=== PATIENT | female | born 1955 | race Caucasian/White ===

== ENCOUNTER 2017-05-12 23:15 | Observation (INO) | payer MEDICAID, SELFPAY ==
[2017-05-12 23:16] VITALS: BP 104/41; PULSE 69; RESP 17; TEMP 36.5; O2SAT 96; BMI 40.0
--- NOTE | 2017-05-12 23:28 | EKG12_ITS ---
Test Reason : CP Blood Pressure : / mmHG Vent. Rate : 071 BPM Atrial Rate : 041 BPM P-R Int : 000 ms QRS Dur : 092 ms QT Int : 384 ms P-R-T Axes : 000 072 -30 degrees QTc Int : [address] & T wave abnormality, consider inferior ischemia Abnormal ECG Confirmed by ELSY DELGADO, LUCILA ([id number]), publications editor DIANA GALVEZ ([id number]) on 05/14/2017 3:18:39 PM Referred By: NUBIA Confirmed By:LUCILA CHIN MD
--- NOTE | 2017-05-12 23:28 | RAD_ITS ---
STUDY: X-RAY CHEST REASON FOR EXAM: Female, 61 years old. Chest pain, shortness of breath. TECHNIQUE: AP portable chest. COMPARISON: February 16, 2017. FINDINGS: The lungs are clear and expanded. There is no demonstrated pleural abnormality. Borderline cardiomegaly. Normal mediastinum and sangeeta. Normal visualized pulmonary arteries. Normal visualized aortic arch and descending thoracic aorta. Osseous structures are unchanged. There is no demonstrated abnormality of the visualized soft tissue structures of the upper abdomen. RAD/Chest 1 View (Portable) IMPRESSION: No acute cardiopulmonary disease. Electronically Signed: Don Rosario MD at 0:16 EDT , Service support ,
[2017-05-12 23:36] VITALS: BP 122/68; PULSE 65; RESP 22; O2SAT 97
[2017-05-12] MEDS: Ondansetron 4 MG/2 ML Vial IV (23:37)
[2017-05-12 23:45] VITALS: PULSE 74; RESP 18
[2017-05-12] MEDS: Albuterol 2.5 MG/3 ML VIAL.NEB. INHALATION ×3 (23:45→23:50)
[2017-05-12] MEDS: Ipratropium/Albuterol Sulfate 3 ML AMPUL.NEB INHALATION (23:45)
[2017-05-12 23:49] LABS: Absolute Lymphocyte Count 2.77 X10^3/ul (0.83-4.51); Absolute Neutrophil Count 10.5 X10^3/uL (2.0-7.7); Basophil# 0.04 X10^3/uL; Basophil% 0.3 % (0-1); Eosinophil# 0.42 X10^3/uL; Eosinophils% 2.8 % (0-5); Hematocrit 28.4 % (37-47); Lymphocyte # 2.77 X10^3/ul (4.0); Lymphocyte % 18.7 % (19-41); Mean Corp Hgb Conc 31.7 g/gl (32-36); Mean Corpuscular Hgb 27.2 pg (27.0-32.0); Mean Corpuscular Volume 85.8 fL (81-99); Mean Platelet Vol. 11.1 fl (6.2-12.0); Monocyte# 1.01 X10^3/uL; Monocyte% 6.8 % (0-10); Neutrophil # 10.54 X10^3/uL (2.7-7.7); Platelet Count 291 K/mm3 (150-450); RBC Distribution Width CV 14.8 % (11.6-14.6); RBC Distribution Width SD 44.5 fl (35.1-43.9); Red Blood Count 3.31 M/mm3 (4.2-5.4); White Blood Count 14.8 K/mm3 (4.4-11.0)
[2017-05-12 23:50] LABS: POSITIVE COUNT NO; POSITIVE DIFFERENTIAL NO; POSITIVE MORPHOLOGY NO
[2017-05-13] VITALS (13 sets, daily range): BP systolic 102–134; BP diastolic 47–64; PULSE 57–85; RESP 16–20; TEMP 36.2–36.9; O2SAT 95–99; BMI 40.2; BMI 40.3
[2017-05-13 00:02] LABS: Anion Gap 7 (5-15); BUN 16 mg/dL (7-18); BUN/Creat Ratio 20.5 RATIO (10-20); Calcium,Total 8.5 mg/dL (8.5-10.1); Chloride 101 mmol/L (98-107); Creatinine, Serum 0.78 mg/dL (0.55-1.02); EST Glomerular Filtration Rate 80 mL/min (>60); Est Glom Filt Rate - Afr Amer 96 mL/min (>60); Estimated Creatinine Clearance 57.15 ml/min; Glucose 179 mg/dL (74-106); Potassium 4.3 mmol/L (3.5-5.1); Sodium Level 135 mmol/L (136-145)
--- NOTE | 2017-05-13 00:29 | ED.VISSUMM ---
- ER Visit Summary Date of Service: 05/13/17 Chief Complaint: [] Chest pain History of Present Illness: The patient is a 61 F complaining of chest pain since yesterday 2 PM. Substernal. Comes on at rest continuous sharp pain. Current severity is moderate. Worsened by nothing. Associated with nausea and chronic shortness of breath. She is chronic COPD gets breathing treatments every 4 hours she is a history of obesity and A. fib and she is on Eloquis. A remote DVT. She does have cardiac risk factors including hypertension, diabetes, high cholesterol and smoking. She quit in 2016. She has never had a stress test heart cath or stents. She reported a remote GA in 2009 however. Physical Examination: [] Vital signs reviewed General: Well-nourished well-developed Head: Normocephalic atraumatic Eyes: Pupils equal round and reactive to light extraocular movements intact ENT: TMs clear no hemotympanum no trauma Neck: Nontender full range of motion Cardiovascular: Irregular rhythm no murmurs normal S1-S2 Respiratory: No distress diffuse wheezing throughout all lung hoang on expiratory phase. Chest nontender Abdomen: Soft nontender nondistended normal bowel sounds no masses Back: Nontender no CVA tenderness Extremities: Nontender active range of motion ?4 extremities no trauma Skin: Normal color no trauma Neuro alert oriented cranial nerves II through XII intact normal strength sensation reflexes Test Results: [] Emergency Department Course and Treatment: [] EKG shows A. fib at 71. T-wave inversions noted inferior lead III and aVF V1 and V2. CBC normal except white count of 14.8. Patient has history of chronic leukocytosis. Hemoglobin 9.0. Chemistries normal except sodium 135. Troponin negative. Chest x-ray shows nothing acute. Patient given albuterol nebulizer ?3 and Atrovent nebulizer ?1 with good relief of her wheezing. She still has some persistent mild chest discomfort. She was given IV Solu-Medrol. At this time due the patient's chest pain I feel she will need to be admitted for further evaluation. She is already on blood thinners therefore I do not feel she has a PE. I do not feel she needs antibiotics that she has had no no new cough or fevers. COPD is a chronic issue for her. Treatment Plan: [] Disposition: [] Impression: [] Chest pain COPD with wheezing Chronic respiratory failure This note was generated with [employer] dictation software. It may contain incorrect words, spelling, and punctuation that were not noted in review of the chart prior to signing ED Disposition - Plan for ED Patient: Chief Complaint: Chest Pain Referrals: Camden Burger [Primary Care Provider] -
[2017-05-13] MEDS: MethylPREDNISolone 125 MG/2 ML Vial IV (00:44)
--- NOTE | 2017-05-13 01:13 | PCM.HP.STD ---
Problem List (1) Chest pain Status: Acute Qualifiers: Chest pain type: chest pain on breathing Qualified Code(s): R07.1 - Chest pain on breathing; R07.81 - Pleurodynia (2) Anemia Status: Acute (3) Acute and chronic respiratory failure with hypoxia Status: Resolved (4) Acute bronchitis due to human metapneumovirus Status: Resolved (5) COPD with acute exacerbation Status: Resolved (6) Hypomagnesemia Status: Chronic (7) Anxiety Status: Chronic (8) COPD (chronic obstructive pulmonary disease) Status: Chronic Qualifiers: (9) Cardiomyopathy Status: Chronic Qualifiers: Comment: EF in Oct 2015 45-50 (10) Chronic atrial fibrillation Status: Chronic (11) Chronic hypoxemic respiratory failure Status: Chronic (12) Chronic pain Status: Chronic Qualifiers: (13) Former smoker Status: Chronic Comment: Quit in the fall 2016 (14) GERD (gastroesophageal reflux disease) Status: Chronic Qualifiers: (15) HTN (hypertension) Status: Chronic Qualifiers: (16) Hyperlipemia Status: Chronic Qualifiers: (17) Insomnia Status: Chronic Qualifiers: (18) Morbid obesity with BMI of 40.0-44.9, adult Status: Chronic (19) Non-compliance Status: Chronic Comment: withn follow up with pulmonary (20) Type 2 diabetes mellitus Status: Chronic Qualifiers: (21) Pneumonia Status: Ruled-out History of Present Illness Date of Admission: 05/13/17 Chief Complaint: chest pain The patient is a 61 year old F with a past medical history of severe COPD, chronic pain syndrome, chronic atrial fibrillation, chronic hypoxemic respiratory failure, mild cardiomyopathy with a 45-50% EF in October 2015, hyperlipidemia, diabetes mellitus type 2, GERD, chronic anticoagulation with Xarelto, anxiety/depression and insomnia who was sent to the emergency department at [facility] from the longterm with a complaint of chest pain. The pain started at approximately 2 PM which is almost 12 hours ago. It has been continuous. It does not radiate. She also describes some nausea and abdominal pain. The pain increases with deep breaths and also with coughing. She has not been diaphoretic and the pain started while she was sitting in her chair. She had spaghetti for lunch. She was given what sounds like a GI cocktail at the [facility] and she tells me that it helped some. 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 Asaf Rosa and she states she last saw him on 04/24 and was told everything was good. She tells me that she has never had a stress test or a cardiac cath. She is a very poor historian and it is difficult to get her to answer a direct question. The EKG in the ER shows non-specific ST and T wave changes that are essentially unchanged from her last EKG in February 2017. CXR shows no infiltrates, PVC or pleural effusions. Troponin is < 0.02 nine and 1/2 hours after the chest pain started. She has multiple risk factors for CAD and she is going to be admitted to the hospital for a chemical nuclear stress in the AM if the second troponin is negative. Past Medical History Past Medical History (Chronic Problems): Chronic Problems Former smoker (Chronic) Quit in the fall 2016 Hypomagnesemia (Chronic) HTN (hypertension) (Chronic) Morbid obesity with BMI of 40.0-44.9, adult (Chronic) COPD (chronic obstructive pulmonary disease) (Chronic) Chronic pain (Chronic) Chronic atrial fibrillation (Chronic) Non-compliance (Chronic) withn follow up with pulmonary Chronic hypoxemic respiratory failure (Chronic) Cardiomyopathy (Chronic) EF in Oct 2015 45-50 Hyperlipemia (Chronic) Type 2 diabetes mellitus (Chronic) GERD (gastroesophageal reflux disease) (Chronic) Anxiety (Chronic) Insomnia (Chronic) Allergies venom-honey bee [bee venom (honey bee)] Allergy (Verified 05/12/17 23:40) Swelling levofloxacin [From Levaquin] Adverse Reaction (Verified 05/12/17 23:40) Nausea oxycodone HCl [From Percocet] Adverse Reaction (Verified 05/12/17 23:40) Nausea Penicillins Adverse Reaction (Verified 05/12/17 23:40) Nausea/Vom/Diarrhea Home Medications: Ambulatory Orders Medication Instructions Recorded Acetaminophen [Tylenol] 2 tab PO Q6H PRN 05/12/17 Albuterol Aerosols [Ventolin 2.5 mg INHALATION Q2H PRN PRN 05/12/17 Aerosols] Atorvastatin Calcium [Lipitor] 40 mg PO QHS 05/12/17 Budesonide/Formoterol 160/4.5 2 puff INHALATION BID 05/12/17 [Symbicort 160/4.5 Mcg Inhaler (SP)] Bupropion HCl [Bupropion HCl Sr] 150 mg PO BID 05/12/17 Buspirone HCl 10 mg PO TID 05/12/17 Digoxin 250 mcg PO DAILY 05/12/17 Diltiazem [Cardizem] 2 tab PO BID 05/12/17 Docusate Sodium [Colace] 100 mg PO DAILY 05/12/17 Famotidine [Pepcid] 20 mg PO BID 05/12/17 Furosemide [Lasix] 20 mg PO BIDLX 05/12/17 Furosemide [Lasix] 40 mg PO BIDLX 05/12/17 Gabapentin [Neurontin] 100 mg PO TID 05/12/17 Glucagon,Human Recombinant 1 mg IJ PRN PRN 05/12/17 [Glucagon Emergency Kit] Guaifenesin [Mucinex] 1,200 mg PO BID 05/12/17 Hydrocodone Bitart/Apap 5-325 1 tablet PO Q6H PRN PRN 05/12/17 [[place] 5MG-325MG] Insulin Glargine,Hum.rec.anlog 55 unit SQ QHS 05/12/17 [Basaglar Kwikpen U-100] Insulin Lispro [Humalog] 8 unit SQ TIDCM 05/12/17 Ipratropium/Albuterol Sulfate 3 ml INHALATION Q4H.RT 05/12/17 [Duoneb] Lisinopril [Prinivil] 5 mg PO DAILY 05/12/17 Mag Hydrox/Al Hydrox/Simeth 30 ml PO Q6H PRN 05/12/17 [Antacid Liquid] Mometasone/Formoterol [Dulera 200 2 puff IN BID 05/12/17 Mcg/5 Mcg Inhaler] Nitroglycerin [Nitrostat] 0.4 mg SUBLINGUAL Q5M PRN 05/12/17 Polyethylene Glycol 3350 [Miralax] 17 gm PO DAILY 05/12/17 Potassium Chloride [K-Dur] 10 meq PO BID 05/12/17 Propranolol HCl [Inderal] 10 mg PO BID 05/12/17 Rivaroxaban [Xarelto] 20 mg PO DAILY 05/12/17 Sennosides/Docusate Sodium [Senna 2 tab PO BID PRN 05/12/17 Plus Tablet] Sennosides/Docusate Sodium 2 tab PO DAILY PRN 05/12/17 [Senna-Docusate Sodium Tablet] Surgical History: hysterectomy, tonsillectomy, - - Lumbar surgery. 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 Sibling History Items: Asthma, COPD, Hypertension Review of Systems Constitutional: Denies: Chills, Fever, Weight Change HEENT: Denies: Head Aches, Sinus Congestion, Sinus Drainage Cardiovascular: Reports: Chest Pain, Edema. Denies: Light Headedness, Orthopnea, Palpitations Respiratory: Reports: Cough - chronic, no change recently, Shortness of Breath - chronic Gastrointestinal: Reports: Abdominal Pain, Dyspepsia, Nausea. Denies: Diarrhea, Vomiting Genitourinary: Denies: Dysuria Musculoskeletal: Reports: Back Pain, Neck Pain Skin: Denies: Rash, Wounds Neurological: Denies: Slurred speech, Confusion, Focal weakness, Seizures Psychiatric: Reports: Anxiety, Depression. Denies: Suicidal Ideations Endocrine: Denies: Change in Body Habitus Hematologic/ Lymphatic: Denies: Hx of blood clot VTE Information - Inpt Only VTE Present on Admission: No VTE Mechan Device Prophylaxis: None VTE Pharm Prophylaxis ordered?: No Reason prophylaxis not ordered:: Treatment Not Indicated - pt is on Xarelto and a short admission is expected Patient Problems: Active and Suspected Problems Chest pain (Acute) Anemia (Acute) - Physical Exam General: Alert, Oriented x3, Non-Cooperative - she will not answer a direct question without prompting her several times and she is evasive. I had to ask her 3 times when the last time she saw Dr. Rosa was and she finally told me on the 9 of this month. HEENT: Atraumatic, PERRLA, EOMI, Normocephalic Oral: Moist Mucosa Neck: Supple, No Nodes, Trachea Midline Lungs: Diminished, - - she has no conversational dyspnea and she is not tachypneic. Not coughing. Rare expiratory wheeze Cardiovascular: Normal S1, Normal S2, No murmurs, Irregular Rate - AF with controlled VR, No Gallop Abdomen: Bowel Sounds Present, Soft, Non-Distended, Tender - in the mid abdomen Extremities: No cyanosis, Edema - of the ankles and the distal LE's Skin: No rashes, No breakdown Neurological: Cranial nerves II-XII grossly intact, Neuro grossly intact Psych/Mental Status: Flat Affect Vital Signs Temp Pulse Resp BP Pulse Ox 97.7 F L 57 L 18 108/58 L 99 05/12/17 23:16 05/13/17 01:03 05/13/17 00:49 05/13/17 01:03 05/13/17 01:03 Oxygen Flow Rate (L/min) 2 Oxygen Delivery Method Room Air Weight: 211 lb 13.828 oz Body Mass Index (BMI) 40.0 Finger Stick Blood Glucose 364 Laboratory Tests Past 24 Hrs 05/12/17 05/12/17 23:20 23:20 WBC 14.8 H RBC 3.31 L Hgb 9.0 L Hct 28.4 L MCV 85.8 MCH 27.2 MCHC 31.7 L RDW 14.8 H RDW Differential 44.5 H Plt Count 291 MPV 11.1 Immature Gran % (Auto) 0.400 Neut % (Auto) 71.0 H Lymph % (Auto) 18.7 L Gibson % (Auto) 6.8 Eos % (Auto) 2.8 Baso % (Auto) 0.3 Absolute Neuts (auto) 10.5 H Absolute Lymphs (auto) 2.77 Total Counted Not Reportable Sodium 135 L Potassium 4.3 Chloride 101 Carbon Dioxide 27.0 Anion Gap 7 BUN 16 Creatinine 0.78 Estim Creat Clear Calc 57.15 Est GFR (MDRD) Af Amer 96 Est GFR (MDRD) Non-Af 80 BUN/Creatinine Ratio 20.5 H Glucose 179 H Calcium 8.5 Troponin I < 0.02 Assessment/Plan Active and Suspected Problems Chest pain (Acute) Anemia (Acute) Impressions 1. atypical CP lasting for 11 hours with normal troponin, unremarkable CXR, stable EKG since February 2017 and partially relieved with a GI cocktail at the HI. HGB has dropped to 9.0 from 10.8 in February and she is on chronic anticoagulation. I suspect this is likely GI related but, she has many RF's for CAD and she is being admitted for a stress test. 2. severe COPD with chronic hypoxemic respiratory failure 3. chronic atrial fibrillation - rate controlled 4. DM II 5. HTN 6. HLD 7. former smoker - she just quit about 6 months ago 8. Hx of non-compliance with medication, diet and follow up in the past - no living in a NH 9. morbid obesity 10. depression/anxiety 11. chronic pain syndrome 12. ischemic CM with a 45-50% EF in 2016 Admitted to PCU Serial CE's chemical nuclear stress in the AM if the second troponin is negative Obtain Dr. Rosa's recent progress notes Hemoccult stool NPO tonight Continue her regular medications PRN SL NTG Code Visit OBSV E&M: 46813 Initial observation care L3
--- NOTE | 2017-05-13 01:25 | HP.PCM_ITS ---
Problem List (1) Chest pain Status: Acute Qualifiers: Chest pain type: chest pain on breathing Qualified Code(s): R07.1 - Chest pain on breathing; R07.81 - Pleurodynia (2) Anemia Status: Acute (3) Acute and chronic respiratory failure with hypoxia Status: Resolved (4) Acute bronchitis due to human metapneumovirus Status: Resolved (5) COPD with acute exacerbation Status: Resolved (6) Hypomagnesemia Status: Chronic (7) Anxiety Status: Chronic (8) COPD (chronic obstructive pulmonary disease) Status: Chronic Qualifiers: (9) Cardiomyopathy Status: Chronic Qualifiers: Comment: EF in Oct 2015 45-50 (10) Chronic atrial fibrillation Status: Chronic (11) Chronic hypoxemic respiratory failure Status: Chronic (12) Chronic pain Status: Chronic Qualifiers: (13) Former smoker Status: Chronic Comment: Quit in the fall 2016 (14) GERD (gastroesophageal reflux disease) Status: Chronic Qualifiers: (15) HTN (hypertension) Status: Chronic Qualifiers: (16) Hyperlipemia Status: Chronic Qualifiers: (17) Insomnia Status: Chronic Qualifiers: (18) Morbid obesity with BMI of 40.0-44.9, adult Status: Chronic (19) Non-compliance Status: Chronic Comment: withn follow up with pulmonary (20) Type 2 diabetes mellitus Status: Chronic Qualifiers: (21) Pneumonia Status: Ruled-out History of Present Illness Date of Admission: 05/13/17 Chief Complaint: chest pain The patient is a 61 year old F with a past medical history of severe COPD , chronic pain syndrome, chronic atrial fibrillation, chronic hypoxemic respiratory failure, mild cardiomyopathy with a 45-50% EF in October 2015, hyperlipidemia, diabetes mellitus type 2, GERD, chronic anticoagulation with Xarelto, anxiety/depression and insomnia who was sent to the emergency department at [facility] from the skilled nursing with a complaint of chest pain. The pain started at approximately 2 PM which is almost 12 hours ago. It has been continuous. It does not radiate. She also describes some nausea and abdominal pain. The pain increases with deep breaths and also with coughing. She has not been diaphoretic and the pain started while she was sitting in her chair. She had spaghetti for lunch. She was given what sounds like a GI cocktail at the DC and she tells me that it helped some. Her Warehouse Worker is Dr. Asaf Rosa and she states she last saw him on 04/24 and was told everything was good. She tells me that she has never had a stress test or a cardiac cath. She is a very poor historian and it is difficult to get her to answer a direct question. The EKG in the ER shows non-specific ST and T wave changes that are essentially unchanged from her last EKG in February 2017. CXR shows no infiltrates, PVC or pleural effusions. Troponin is < 0.02 nine and 1/ 2 hours after the chest pain started. She has multiple risk factors for CAD and she is going to be admitted to the hospital for a chemical nuclear stress in the AM if the second troponin is negative. Past Medical History Past Medical History (Chronic Problems): Chronic Problems Former smoker (Chronic) Quit in the fall 2016 Hypomagnesemia (Chronic) HTN (hypertension) (Chronic) Morbid obesity with BMI of 40.0-44.9, adult (Chronic) COPD (chronic obstructive pulmonary disease) (Chronic) Chronic pain (Chronic) Chronic atrial fibrillation (Chronic) Non-compliance (Chronic) withn follow up with pulmonary Chronic hypoxemic respiratory failure (Chronic) Cardiomyopathy (Chronic) EF in Oct 2015 45-50 Hyperlipemia (Chronic) Type 2 diabetes mellitus (Chronic) GERD (gastroesophageal reflux disease) (Chronic) Anxiety (Chronic) Insomnia (Chronic) Allergies venom-honey bee [bee venom (honey bee)] Allergy (Verified 05/12/17 23:40) Swelling levofloxacin [From Levaquin] Adverse Reaction (Verified 05/12/17 23:40) Nausea oxycodone HCl [From Percocet] Adverse Reaction (Verified 05/12/17 23:40) Nausea Penicillins Adverse Reaction (Verified 05/12/17 23:40) Nausea/Vom/Diarrhea Home Medications: Ambulatory Orders Medication Instructions Recorded Acetaminophen [Tylenol] 2 tab PO Q6H PRN 05/12/17 Albuterol Aerosols [Ventolin 2.5 mg INHALATION Q2H PRN PRN 05/12/17 Aerosols] Atorvastatin Calcium [Lipitor] 40 mg PO QHS 05/12/17 Budesonide/Formoterol 160/4.5 2 puff INHALATION BID 05/12/17 [Symbicort 160/4.5 Mcg Inhaler (SP)] Bupropion HCl [Bupropion HCl Sr] 150 mg PO BID 05/12/17 Buspirone HCl 10 mg PO TID 05/12/17 Digoxin 250 mcg PO DAILY 05/12/17 Diltiazem [Cardizem] 2 tab PO BID 05/12/17 Docusate Sodium [Colace] 100 mg PO DAILY 05/12/17 Famotidine [Pepcid] 20 mg PO BID 05/12/17 Furosemide [Lasix] 20 mg PO BIDLX 05/12/17 Furosemide [Lasix] 40 mg PO BIDLX 05/12/17 Gabapentin [Neurontin] 100 mg PO TID 05/12/17 Glucagon,Human Recombinant 1 mg IJ PRN PRN 05/12/17 [Glucagon Emergency Kit] Guaifenesin [Mucinex] 1,200 mg PO BID 05/12/17 Hydrocodone Bitart/Apap 5-325 1 tablet PO Q6H PRN PRN 05/12/17 [[place] 5MG-325MG] Insulin Glargine,Hum.rec.anlog 55 unit SQ QHS 05/12/17 [Basaglar Kwikpen U-100] Insulin Lispro [Humalog] 8 unit SQ TIDCM 05/12/17 Ipratropium/Albuterol Sulfate 3 ml INHALATION Q4H.RT 05/12/17 [Duoneb] Lisinopril [Prinivil] 5 mg PO DAILY 05/12/17 Mag Hydrox/Al Hydrox/Simeth 30 ml PO Q6H PRN 05/12/17 [Antacid Liquid] Mometasone/Formoterol [Dulera 200 2 puff IN BID 05/12/17 Mcg/5 Mcg Inhaler] Nitroglycerin [Nitrostat] 0.4 mg SUBLINGUAL Q5M PRN 05/12/17 Polyethylene Glycol 3350 [Miralax] 17 gm PO DAILY 05/12/17 Potassium Chloride [K-Dur] 10 meq PO BID 05/12/17 Propranolol HCl [Inderal] 10 mg PO BID 05/12/17 Rivaroxaban [Xarelto] 20 mg PO DAILY 05/12/17 Sennosides/Docusate Sodium [Senna 2 tab PO BID PRN 05/12/17 Plus Tablet] Sennosides/Docusate Sodium 2 tab PO DAILY PRN 05/12/17 [Senna-Docusate Sodium Tablet] Surgical History: hysterectomy, tonsillectomy, - - Lumbar surgery. 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 Sibling History Items: Asthma, COPD, Hypertension Review of Systems Constitutional: Denies: Chills, Fever, Weight Change HEENT: Denies: Head Aches, Sinus Congestion, Sinus Drainage Cardiovascular: Reports: Chest Pain, Edema. Denies: Light Headedness, Orthopnea , Palpitations Respiratory: Reports: Cough - chronic, no change recently, Shortness of Breath - chronic Gastrointestinal: Reports: Abdominal Pain, Dyspepsia, Nausea. Denies: Diarrhea , Vomiting Genitourinary: Denies: Dysuria Musculoskeletal: Reports: Back Pain, Neck Pain Skin: Denies: Rash, Wounds Neurological: Denies: Slurred speech, Confusion, Focal weakness, Seizures Psychiatric: Reports: Anxiety, Depression. Denies: Suicidal Ideations Endocrine: Denies: Change in Body Habitus Hematologic/ Lymphatic: Denies: Hx of blood clot VTE Information - Inpt Only VTE Present on Admission: No VTE Mechan Device Prophylaxis: None VTE Pharm Prophylaxis ordered?: No Reason prophylaxis not ordered:: Treatment Not Indicated - pt is on Xarelto and a short admission is expected Patient Problems: Active and Suspected Problems Chest pain (Acute) Anemia (Acute) - Physical Exam General: Alert, Oriented x3, Non-Cooperative - she will not answer a direct question without prompting her several times and she is evasive. I had to ask her 3 times when the last time she saw Dr. Rosa was and she finally told me on the 9 of this month. HEENT: Atraumatic, PERRLA, EOMI, Normocephalic Oral: Moist Mucosa Neck: Supple, No Nodes, Trachea Midline Lungs: Diminished, - - she has no conversational dyspnea and she is not tachypneic. Not coughing. Rare expiratory wheeze Cardiovascular: Normal S1, Normal S2, No murmurs, Irregular Rate - AF with controlled VR, No Gallop Abdomen: Bowel Sounds Present, Soft, Non-Distended, Tender - in the mid abdomen Extremities: No cyanosis, Edema - of the ankles and the distal LE's Skin: No rashes, No breakdown Neurological: Cranial nerves II-XII grossly intact, Neuro grossly intact Psych/Mental Status: Flat Affect Vital Signs Temp Pulse Resp BP Pulse Ox 97.7 F L 57 L 18 108/58 L 99 05/12/17 23:16 05/13/17 01:03 05/13/17 00:49 05/13/17 01:03 05/13/17 01:03 Oxygen Flow Rate (L/min) 2 Oxygen Delivery Method Room Air Weight: 211 lb 13.828 oz Body Mass Index (BMI) 40.0 Finger Stick Blood Glucose 364 Laboratory Tests Past 24 Hrs 05/12/17 05/12/17 23:20 23:20 WBC 14.8 H RBC 3.31 L Hgb 9.0 L Hct 28.4 L MCV 85.8 MCH 27.2 MCHC 31.7 L RDW 14.8 H RDW Differential 44.5 H Plt Count 291 MPV 11.1 Immature Gran % (Auto) 0.400 Neut % (Auto) 71.0 H Lymph % (Auto) 18.7 L [place] % (Auto) 6.8 Eos % (Auto) 2.8 Baso % (Auto) 0.3 Absolute Neuts (auto) 10.5 H Absolute Lymphs (auto) 2.77 Total Counted Not Reportable Sodium 135 L Potassium 4.3 Chloride 101 Carbon Dioxide 27.0 Anion Gap 7 BUN 16 Creatinine 0.78 Estim Creat Clear Calc 57.15 Est GFR (MDRD) Af Amer 96 Est GFR (MDRD) Non-Af 80 BUN/Creatinine Ratio 20.5 H Glucose 179 H Calcium 8.5 Troponin I < 0.02 Assessment/Plan Active and Suspected Problems Chest pain (Acute) Anemia (Acute) Impressions 1. atypical CP lasting for 11 hours with normal troponin, unremarkable CXR, stable EKG since February 2017 and partially relieved with a GI cocktail at the DC. HGB has dropped to 9.0 from 10.8 in February and she is on chronic anticoagulation. I suspect this is likely GI related but, she has many RF's for CAD and she is being admitted for a stress test. 2. severe COPD with chronic hypoxemic respiratory failure 3. chronic atrial fibrillation - rate controlled 4. DM II 5. HTN 6. HLD 7. former smoker - she just quit about 6 months ago 8. Hx of non-compliance with medication, diet and follow up in the past - no living in a NH 9. morbid obesity 10. depression/anxiety 11. chronic pain syndrome 12. ischemic CM with a 45-50% EF in 2016 Admitted to PCU Serial CE's chemical nuclear stress in the AM if the second troponin is negative Obtain Dr. Rosa's recent progress notes Hemoccult stool NPO tonight Continue her regular medications PRN SL NTG Code Visit OBSV E&M: 50661 Initial observation care L3
--- NOTE | 2017-05-13 02:15 | ECHOD_ITS ---
Reason For Study: chest pain Procedure This was a 2D Doppler, Color Flow transthoracic echocardiogram. Exam performed portable in patient room. Left Ventricle Normal LV size. Left ventricular systolic function is normal. The estimated ejection fraction is 65 %. Normal diastology for age. No regional wall motion abnormalities noted. Right Ventricle Normal RV size. Normal systolic function. Atria Normal left atrium. Normal right atrium. Mitral Valve Normal mitral valve. Tricuspid Valve Normal tricuspid valve. Aortic Valve Trisinus/trileaflet aortic valve. Mild focal aortic valve calcification. Peak aortic valve gradient 20 mmHg. Mean aortic valve gradient 11 mmHg. Mild aortic stenosis. Pulmonic Valve Normal pulmonic valve. Great Vessels Normal aortic root. The pulmonary artery is normal size. Normal inferior vena cava. Pericardium/Pleural No pericardial effusion. MMode/2D Measurements & Calculations RVDd: 2.8 cm LVOT diam: 1.8 cm Ao root diam: 2.6 cm LVOT area: 2.7 cm2 LA dimension: 4.6 cm LAV(MOD-bp): 66.5 ml LA A4 area: 21.0 cm2 RA A4 area: 14.3 cm2 LAV(MOD-bp) Indexed: 34.4 ml/m2 LAV(MOD-sp2): 73.8 ml LAV(MOD-sp4): 58.0 ml Doppler Measurements & Calculations MV E max jami: 135.6 cm/sec Ao V2 max: 227.0 cm/sec LV V1 max: 148.6 cm/sec Ao max P.7 mmHg LV V1 max P.9 mmHg Ao V2 mean: 156.2 cm/sec LV V1 mean P.1 mmHg Ao mean P.1 mmHg LV V1 mean: 106.2 cm/sec Ao V2 VTI: 39.3 cm LV V1 VTI: 28.5 cm ANUJA(I,D): 1.9 cm2 ANUJA(V,D): 1.7 cm2 SV(LVOT): 75.8 ml PA V2 max: 150.1 cm/sec TR max jami: 239.5 cm/sec TR max P.9 mmHg Interpretation Summary Normal LV size. Left ventricular systolic function is normal. The estimated ejection fraction is 65 %. Mild aortic stenosis. Ordering Physician: Avis Montalvo Referring Physician: Camden Burger Performed By: Pat Boland RDCS
[2017-05-13 03:03] LABS: AST(SGOT) 11 U/L (15-37); Alanine Aminotransfer ALT/SGPT 15 U/L (13-56); Alkaline Phosphatase 154 U/L (45-117); Bilirubin, Direct 0.11 mg/dL (0.00-0.30); Globulin 3.8 g/dL (2.2-4.2); Magnesium 2.3 mg/dL (1.6-2.6); Protein, Total 6.8 g/dL (6.4-8.2); Thyroid Stim Hormone (TSH) 1.72 uIU/mL (0.358-3.74)
[2017-05-13 04:14] LABS: Hematocrit 34.9 % (37-47); Hemoglobin 10.8 g/dl (12.0-15.0); Mean Corp Hgb Conc 30.9 g/gl (32-36); Mean Corpuscular Hgb 26.1 pg (27.0-32.0); Mean Corpuscular Volume 84.3 fL (81-99); Mean Platelet Vol. 10.6 fl (6.2-12.0); Platelet Count 311 K/mm3 (150-450); RBC Distribution Width CV 14.9 % (11.6-14.6); RBC Distribution Width SD 46.2 fl (35.1-43.9); Red Blood Count 4.14 M/mm3 (4.2-5.4); White Blood Count 13.9 K/mm3 (4.4-11.0)
[2017-05-13 04:16] LABS: Scan Indicated on CBC? Y/N NO
[2017-05-13 04:27] LABS: International Normalized Ratio 1.5; Prothrombin Time (Protime)PT. 18.1 SECONDS (11.7-14.9)
[2017-05-13 04:36] LABS: Anion Gap 8 (5-15); BUN 15 mg/dL (7-18); Calcium,Total 8.6 mg/dL (8.5-10.1); Chloride 101 mmol/L (98-107); Creatinine, Serum 0.75 mg/dL (0.55-1.02); EST Glomerular Filtration Rate 83 mL/min (>60); Est Glom Filt Rate - Afr Amer 101 mL/min (>60); Estimated Creatinine Clearance 59.44 ml/min; Glucose 233 mg/dL (74-106); Potassium 4.7 mmol/L (3.5-5.1); Sodium Level 133 mmol/L (136-145)
--- NOTE | 2017-05-13 05:55 | EKG12_ITS ---
Test Reason : AM EKG Blood Pressure : / mmHG Vent. Rate : 081 BPM Atrial Rate : 071 BPM P-R Int : 000 ms QRS Dur : 092 ms QT Int : 350 ms P-R-T Axes : 000 062 -36 degrees QTc Int : 406 ms Atrial fibrillation Septal infarct , age undetermined ST & T wave abnormality, consider inferior ischemia Abnormal ECG When compared with ECG of 12-MAY-2017 23:19, MANUAL COMPARISON REQUIRED, DATA IS UNCONFIRMED Confirmed by ELSY DELGADO, LUCILA ([id number]), fan mail editor DIANA GALVEZ ([id number]) on 05/18/2017 2:01:09 PM Referred By: LUKASZ Confirmed By:LUCILA CHIN MD
[2017-05-13] MEDS: Lisinopril 5 MG Tablet PO (06:30)
[2017-05-13] MEDS: Aspirin E.C. 81 MG Tablet PO (06:30)
[2017-05-13 06:31] LABS: Bedside Glucose 304 mg/dL (70-110)
[2017-05-13] MEDS: Ipratropium/Albuterol Sulfate 3 ML AMPUL.NEB INHALATION ×2 (06:51→12:51)
[2017-05-13] MEDS: Budesonide Respules 0.5 MG/2 ML AMPUL.NEB. INHALATION (06:51)
[2017-05-13 08:22] LABS: Cholesterol 133 mg/dL (200); High Density Lipoprotein 42 mg/dL; Triglycerides 94 mg/dL; Very Low Density Lipoprotein 19 mg/dL (5-40)
[2017-05-13 11:35] LABS: Bedside Glucose 357 mg/dL (70-110)
--- NOTE | 2017-05-13 12:33 | STRESSREP ---
Stress Test Report Pharmacologic myocardial perfusion stress test. 61-year-old lady with a history of shortness of breath and abdominal pain. Stress protocol: Resting EKG demonstrates atrial for ablation with a rate of 81 bpm normal intervals and noted resting blood pressure is 120/60 mmHg. 0.4 mg regadenoson was infused per usual protocol followed by Intravenous saline flush injection continuous EKG monitoring was performed. Patient maintained atrial fibrillation throughout the recording. The maximum heart rate attained was 104 bpm which was 65% of maximum predicted heart rate the maximum workload attained was 1 metabolic equivalent. At rest there were no ST or T-wave changes noted suggest abnormal flow reserve at peak infusion no ST or T-wave changes were noted to suggest abnormal flow reserve. No pain was noted. The resting blood pressure is 120/62 mmHg final blood pressure is 112/58 mmHg. Myocardial perfusion protocol. 12.0 mCi of technetium 99m sestamibi was injected at rest. 0.4 mg of regadenoson was infused per usual protocol. At peak infusion 33.9 mCi of technetium 99m sestamibi was injected stress images were obtained stress and rest images were reconstructed and compared in the short axis vertical long and horizontal long axis. Gated images were also obtained. Perfusion SPECT analysis: Review of the stress images demonstrate normal uptake of tracer noted in all areas of the myocardium. The resting images similarly demonstrate normal uptake of tracer noted in all areas of the myocardium. No areas of reversibility are noted suggest ischemia no previous infarct is noted. Gated SPECT analysis. The gated ejection fraction is noted to be 83%. Conclusion: Normal pharmacologic myocardial perfusion stress test. Preserved ejection fraction.
--- NOTE | 2017-05-13 13:09 | CASEMGMT ---
Patient is from [facility]. SW spoke with patient and she said she will need a ride back when d/c. Briana CARRASCO
[2017-05-13] MEDS: busPIRone 5 MG Tablet 10 MG PO (14:21)
[2017-05-13] MEDS: dilTIAZem 60 MG Tablet 120 MG PO (14:22)
[2017-05-13] MEDS: Furosemide 40 MG Tablet PO (14:22)
--- NOTE | 2017-05-13 14:22 | PCM.DC ---
- Discharge Diagnoses Current Active Problems: Current Active and Chronic Problems Chest pain (Acute) Anemia (Acute) You will use the following diet at home:: Calorie/Carbohydrate Controlled (specify 1200, 1400, etc) - 1800 ADA diet, Cardiac Discharge Activity: May Not Drive Allergies/Adverse Reactions: Allergies venom-honey bee [bee venom (honey bee)] Allergy (Verified 05/12/17 23:40) Swelling levofloxacin [From Levaquin] Adverse Reaction (Verified 05/12/17 23:40) Nausea oxycodone HCl [From Percocet] Adverse Reaction (Verified 05/12/17 23:40) Nausea Penicillins Adverse Reaction (Verified 05/12/17 23:40) Nausea/Vom/Diarrhea Medications to take at Discharge Acetaminophen [Tylenol] 2 tab PO Q6H PRN 05/12/17 Albuterol Aerosols [Ventolin Aerosols] 2.5 mg INHALATION Q2H PRN PRN 05/12/17 Atorvastatin Calcium [Lipitor] 40 mg PO QHS 05/12/17 Budesonide/Formoterol 160/4.5 [Symbicort 160/4.5 Mcg Inhaler (SP)] 2 puff INHALATION BID 05/12/17 Bupropion HCl [Bupropion HCl Sr] 150 mg PO BID 05/12/17 Buspirone HCl 10 mg PO TID 05/12/17 Digoxin 250 mcg PO DAILY 05/12/17 Diltiazem [Cardizem] 120 mg PO BID 05/12/17 Docusate Sodium [Colace] 100 mg PO DAILY 05/12/17 Famotidine [Pepcid] 20 mg PO BID 05/12/17 Furosemide [Lasix] 40 mg PO BIDLX 05/12/17 Gabapentin [Neurontin] 100 mg PO TID 05/12/17 Glucagon,Human Recombinant [Glucagon Emergency Kit] 1 mg IJ PRN PRN 05/12/17 Guaifenesin [Mucinex] 1,200 mg PO BID 05/12/17 Insulin Glargine,Hum.rec.anlog [Basaglar Kwikpen U-100] 55 unit SQ QHS 05/12/17 Insulin Lispro [Humalog] 8 unit SQ TIDCM 05/12/17 Ipratropium/Albuterol Sulfate [Duoneb] 3 ml INHALATION Q4H.RT 05/12/17 Lisinopril [Prinivil] 5 mg PO DAILY 05/12/17 Mag Hydrox/Al Hydrox/Simeth [Antacid Liquid] 30 ml PO Q6H PRN 05/12/17 Nitroglycerin [Nitrostat] 0.4 mg SUBLINGUAL Q5M PRN 05/12/17 Polyethylene Glycol 3350 [Miralax] 17 gm PO DAILY 05/12/17 Potassium Chloride [K-Dur] 10 meq PO BID 05/12/17 Propranolol HCl [Inderal (Beta Rubén)] 10 mg PO BID 05/12/17 Rivaroxaban [Xarelto] 20 mg PO DAILY 05/12/17 Sennosides/Docusate Sodium [Senna Plus Tablet] 2 tab PO BID PRN 05/12/17 Sennosides/Docusate Sodium [Senna-Docusate Sodium Tablet] 2 tab PO DAILY PRN 05/12/17 Prednisone 10 mg PO UD #30 tab 05/13/17 The following prescriptions were given: Prednisone 10 mg PO UD #30 tab Primary Care Physician: Camden Burger [Primary Care Provider] - Please follow up with your Primary Care Physician in: in 2 weeks Please Follow Up With: Matthias Chong MD When: in 3-4 weeks for COPD
[2017-05-13] MEDS: Propranolol 10 MG Tablet PO (14:23)
[2017-05-13] MEDS: Docusate Sodium 100 MG Capsule PO (14:23)
[2017-05-13] MEDS: Digoxin 250 MCG Tablet PO (14:23)
--- NOTE | 2017-05-13 14:23 | CASEMGMT ---
LUIS called [facility] to let them know patient will be returning today. LUIS verified with them that patient is on O2 2L PRN. LUIS also confirmed a couple of her medications for physician. LUIS will await orders for d/c. Briana CARRASCO
[2017-05-13] MEDS: guaiFENesin 1,200 MG Tablet 1200 MG PO (14:24)
[2017-05-13] MEDS: buPROPion (SR) 150 MG Tablet.SA PO (14:24)
[2017-05-13] MEDS: Famotidine 20 MG Tablet PO (14:24)
[2017-05-13] MEDS: Rivaroxaban 20 MG Tablet PO (14:24)
[2017-05-13] MEDS: Gabapentin 100 MG Capsule PO (14:25)
--- NOTE | 2017-05-13 14:26 | DS.PCM_ITS ---
Discharge Date and Diagnosis Date of Admission: 05/13/17 Date of Discharge: 05/13/17 - Primary Discharge Diagnosis Active and Suspected Problems Atypical chest pain, most probably musculoskeletal/anxiety. COPD with mild acute bronchitis/acute exacerbation - Secondary Discharge Diagnosis Chronic Problems Former smoker (Chronic) Quit in the fall 2016 Hypomagnesemia (Chronic) HTN (hypertension) (Chronic) Morbid obesity with BMI of 40.0-44.9, adult (Chronic) COPD (chronic obstructive pulmonary disease) (Chronic) Chronic pain (Chronic) Chronic atrial fibrillation (Chronic) Non-compliance (Chronic) withn follow up with pulmonary Chronic hypoxemic respiratory failure (Chronic) Cardiomyopathy (Chronic) EF in Oct 2015 45-50 Hyperlipemia (Chronic) Type 2 diabetes mellitus (Chronic) GERD (gastroesophageal reflux disease) (Chronic) Anxiety (Chronic) Insomnia (Chronic) Hospital Course and Treatment Imaging Results: 05/13/17 05:55 Nuclear Stress Test - Chemical [NM] AM (NON MEDS) Operations: None Summary of Care Provided: The patient is a 61 year old F with multiple comorbidities including severe COPD with chronic hypoxemic respiratory failure on 2-3 L oxygen, mild heart failure with EF 45-50%; nonischemic ischemic cardiomyopathy was admitted from [facility] for chest pain. Patient was admitted in PCU floor. Serial troponin enzymes negative. Patient had stress test which was negative for stress-induced ischemia or previous infarct. Chest x-ray reported as no acute cardiopulmonary disease. I think patient has anxiety and mild shortness of breath due to advanced COPD. Patient is discharged back to [facility] on tapering dose of prednisone. She has DuoNeb nebulization, oxygen and Symbicort. Discharge medication reconciliation done. This note was generated with [employer] dictation software. Every effort was made to ensure accuracy, however computerized human resource consultant mistakes may persist. [] Discharge Activity: May Not Drive Home Medications: Medications to take at Discharge Acetaminophen [Tylenol] 2 tab PO Q6H PRN 05/12/17 Albuterol Aerosols [Ventolin Aerosols] 2.5 mg INHALATION Q2H PRN PRN 05/12/17 Atorvastatin Calcium [Lipitor] 40 mg PO QHS 05/12/17 Budesonide/Formoterol 160/4.5 [Symbicort 160/4.5 Mcg Inhaler (SP)] 2 puff INHALATION BID 05/12/17 Bupropion HCl [Bupropion HCl Sr] 150 mg PO BID 05/12/17 Buspirone HCl 10 mg PO TID 05/12/17 Digoxin 250 mcg PO DAILY 05/12/17 Diltiazem [Cardizem] 120 mg PO BID 05/12/17 Docusate Sodium [Colace] 100 mg PO DAILY 05/12/17 Famotidine [Pepcid] 20 mg PO BID 05/12/17 Furosemide [Lasix] 40 mg PO BIDLX 05/12/17 Gabapentin [Neurontin] 100 mg PO TID 05/12/17 Glucagon,Human Recombinant [Glucagon Emergency Kit] 1 mg IJ PRN PRN 05/12/17 Guaifenesin [Mucinex] 1,200 mg PO BID 05/12/17 Insulin Glargine,Hum.rec.anlog [Basaglar Kwikpen U-100] 55 unit SQ QHS 05/12/17 Insulin Lispro [Humalog] 8 unit SQ TIDCM 05/12/17 Ipratropium/Albuterol Sulfate [Duoneb] 3 ml INHALATION Q4H.RT 05/12/17 Lisinopril [Prinivil] 5 mg PO DAILY 05/12/17 Mag Hydrox/Al Hydrox/Simeth [Antacid Liquid] 30 ml PO Q6H PRN 05/12/17 Nitroglycerin [Nitrostat] 0.4 mg SUBLINGUAL Q5M PRN 05/12/17 Polyethylene Glycol 3350 [Miralax] 17 gm PO DAILY 05/12/17 Potassium Chloride [K-Dur] 10 meq PO BID 05/12/17 Propranolol HCl [Inderal (Beta Rubén)] 10 mg PO BID 05/12/17 Rivaroxaban [Xarelto] 20 mg PO DAILY 05/12/17 Sennosides/Docusate Sodium [Senna Plus Tablet] 2 tab PO BID PRN 05/12/17 Sennosides/Docusate Sodium [Senna-Docusate Sodium Tablet] 2 tab PO DAILY PRN Prednisone 10 mg PO UD #30 tab 05/13/17 Following Prescrptions Were Given to Patient: Prednisone 10 mg PO UD #30 tab Primary Care Physician: Camden Burger [Primary Care Provider] - Please follow up with your Primary Care Physician in: in 2 weeks Please Follow Up With: Matthias Chong MD When: in 3-4 weeks for COPD Medical Necessity - Tobacco Use Smoking Status: Former smoker Tobacco Use: Non-smoker Meaningful Use Info Meaningful Use Diagnoses (Choose all that apply): None applicable Code Visit OBSV E&M: 71852 Observation care discharge
--- NOTE | 2017-05-13 14:53 | CASEMGMT ---
Faxed orders to [facility]. LUIS called [facility] and they will package pick up patient at 4p via [employer] van. LUIS called Naina at [facility] and let her know this information. LUIS also notified patient, RN, and marketing secretary. Plan: Back to [facility] [place]. [facility] transported via [employer] van. Briana CARRASCO
== END 2017-05-13 16:06 | disposition home or self-care (01) ==
LOC: ED 23:35 → PCU 05-13 01:17
PROVIDERS: Admitting Provider Internal Medicine; Emergency Provider Emergency Medicine; Family Provider Family Medicine; PCP Family Medicine; Visit Provider Internal Medicine
DX: R07.89 Other chest pain (principal); J44.9 Chronic obstructive pulmonary disease, unspecified; E11.9 Type 2 diabetes mellitus without complications; I10 Essential (primary) hypertension; E66.01 Morbid (severe) obesity due to excess calories; I25.2 Old myocardial infarction; J96.10 Chronic respiratory failure, unspecified whether with hypoxia or hypercapnia; J96.21 Acute and chronic respiratory failure with hypoxia; K21.9 Gastro-esophageal reflux disease without esophagitis; E78.5 Hyperlipidemia, unspecified; G89.4 Chronic pain syndrome; I25.5 Ischemic cardiomyopathy; I48.2 Chronic atrial fibrillation; Z87.891 Personal history of nicotine dependence; Z86.718 Personal history of other venous thrombosis and embolism; Z68.41 Body mass index [BMI] 40.0-44.9, adult; Z71.3 Dietary counseling and surveillance; Z79.899 Other long term (current) drug therapy; Z79.4 Long term (current) use of insulin; Z79.01 Long term (current) use of anticoagulants; Z91.19 Patient's noncompliance with other medical treatment and regimen; Z79.51 Long term (current) use of inhaled steroids
CPT/HCPCS: 36415; 71045; 78452; 80048; 80061; 80076; 80162; 82962; 83735; 84443; 84484; 85025; 85027; 85610; 85730; 93005; 93017; 93306; 94640; 96374; 96375; 99218; 99285; A9500; J7030; A4216; G0378; J2405; J2785

== ENCOUNTER → 2017-06-10 07:31 | Outpatient (CLI) | payer MEDICAID, SELFPAY ==
--- NOTE | 2017-06-10 13:49 | PFT ---
INTRODUCTION: The patient is a 61-year-old female currently under the care of myself that presents for pulmonary function testing secondary to a diagnosis of tobacco dependence. Respiratory therapy reports poor patient effort and intolerance to testing. INTERPRETATION: Spirometry was unable to be completed due to the lack of acceptable and reproducible data. Patient refused to utilize the mouthpiece due to excessive gagging. She initially refused to attempt flow volume loop maneuvers. Lung volume data reported revealed an increased TLC and RV, which could indicate underlying hyperinflation and air-trapping in the setting of an obstructive ventilatory impairment. DLCO maneuvers were not performed. IMPRESSION: These tests are uninterpretable due to a lack of patient effort and technique.
== END ==
PROVIDERS: Family Provider Family Medicine; PCP Family Medicine; Visit Provider Internal Medicine Critical Care Medicine
DX: F17.200 Nicotine dependence, unspecified, uncomplicated (principal)
CPT/HCPCS: 94060; 94726

== ENCOUNTER → 2017-07-08 09:24 | Outpatient (CLI) | payer MEDICAID, SELFPAY ==
[2017-07-08 09:55] LABS: CREATININE FINGERSTICK 0.7 mg/dL (0.55-1.02); EGFR FINGERSTICK > 60.0000 mL/min (>60)
--- NOTE | 2017-07-08 10:00 | MRI_ITS ---
STUDY: MRI BRAIN WITHOUT CONTRAST REASON FOR EXAM: Female, 61 years old. Articular defects within the right eye. TECHNIQUE: Sagittal T1 and axial diffusion weighted images were obtained. Additional images could not be obtained because of patient condition. COMPARISON: Prior comparable comparison studies are not available for review at this time. FINDINGS: There is mild cerebral atrophy with widening of the extra-axial spaces and ventricular dilatation. There is no evidence for recent intracranial ischemia or other cause of cytotoxic edema on diffusion weighted imaging (DWI). No T2* demonstrated susceptibility artifact. There is no demonstrated hemosiderin stain. There is no extra-axial fluid accumulation. Normal sella turcica, pituitary gland, infundibular stalk, optic chiasm and hypothalamus. Normal tectal plate and pineal gland. Normal midbrain, emil and medulla. Normal cerebellum. Normal basal cisterns. No demonstrated orbital abnormality, within the constraints of a routine brain study. Normal visualized paranasal sinuses. Normal calvarium and skull base. Normal visualized soft tissue structures. Normal visualized upper cervical spine. MRI/Brain without Contrast IMPRESSION: Technically limited MRI. No MR evidence for restricted diffusion. Electronically Signed: Courtney Meza MD at 11:56 EDT , Service support ,
== END ==
PROVIDERS: Family Provider Family Medicine; PCP Family Medicine; Visit Provider Ophthalmology
DX: H53.431 Sector or arcuate defects, right eye (principal)
CPT/HCPCS: 70551

== ENCOUNTER 2017-07-10 17:57 | Inpatient (IN) | payer MEDICAID, SELFPAY ==
[2017-07-10] VITALS (11 sets, daily range): BP systolic 115–140; BP diastolic 47–102; PULSE 70–99; RESP 17–25; TEMP 36.8–36.9; O2SAT 93–100; BMI 40.4; BMI 39.7; BMI 39.8
[2017-07-10 18:16] LABS: Bedside Glucose 198 mg/dL (70-110)
--- NOTE | 2017-07-10 18:28 | EKG12_ITS ---
Test Reason : CP Blood Pressure : / mmHG Vent. Rate : 091 BPM Atrial Rate : 300 BPM P-R Int : 000 ms QRS Dur : 090 ms QT Int : 362 ms P-R-T Axes : 000 071 -13 degrees QTc Int : 445 ms Atrial fibrillation Incomplete right bundle branch block ST & T wave abnormality, consider inferolateral ischemia Abnormal ECG Confirmed by SPENCER DELGADO, FLORENTINO ([id number]), clinical editor DIANA GALVEZ ([id number]) on 07/15/2017 2:04:14 PM Referred By: Jaime Shah Confirmed By:FLORENTINO PALMER MD
--- NOTE | 2017-07-10 18:37 | RAD_ITS ---
STUDY: X-RAY CHEST REASON FOR EXAM: Female, 61 years old. COPD TECHNIQUE: AP portable COMPARISON: May 13, 2017 FINDINGS: Lungs are mildly hyperinflated but clear. There is no demonstrated pleural abnormality. Heart is mildly enlarged. Normal mediastinum and sangeeta. Normal visualized pulmonary arteries. Mildly calcified aortic arch and descending thoracic aorta. Normal visualized thoracic spine. Normal visualized ribs, clavicles, and shoulders. There is no demonstrated abnormality of the visualized soft tissue structures of the upper abdomen. No significant change since prior exam RAD/Chest 1 View (Portable) IMPRESSION: No acute cardiopulmonary pathology Electronically Signed: Moses Diamond MD at 19:08 EDT , Service support ,
[2017-07-10 18:40] LABS: Absolute Neutrophil Count 8.8 X10^3/uL (2.0-7.7); Basophil# 0.05 X10^3/uL; Basophil% 0.4 % (0-1); Eosinophil# 0.47 X10^3/uL; Eosinophils% 3.5 % (0-5); Hematocrit 34.3 % (37-47); Hemoglobin 10.9 g/dl (12.0-15.0); Lymphocyte % 24.2 % (19-41); Mean Corp Hgb Conc 31.8 g/gl (32-36); Mean Corpuscular Hgb 24.9 pg (27.0-32.0); Mean Corpuscular Volume 78.3 fL (81-99); Mean Platelet Vol. 10.6 fl (6.2-12.0); Monocyte# 0.97 X10^3/uL; Monocyte% 7.1 % (0-10); Neutrophil # 8.79 X10^3/uL (2.7-7.7); Neutrophil % 64.5 % (47-70); Platelet Count 376 K/mm3 (150-450); RBC Distribution Width CV 16.1 % (11.6-14.6); RBC Distribution Width SD 45.7 fl (35.1-43.9); Red Blood Count 4.38 M/mm3 (4.2-5.4); White Blood Count 13.6 K/mm3 (4.4-11.0)
[2017-07-10 18:44] LABS: POSITIVE COUNT NO; POSITIVE DIFFERENTIAL NO; POSITIVE MORPHOLOGY NO
[2017-07-10 18:46] LABS: Anion Gap 7 (5-15); BUN 11 mg/dL (7-18); BUN/Creat Ratio 13.7 RATIO (10-20); Calcium,Total 8.5 mg/dL (8.5-10.1); Chloride 99 mmol/L (98-107); EST Glomerular Filtration Rate 77 mL/min (>60); Est Glom Filt Rate - Afr Amer 93 mL/min (>60); Estimated Creatinine Clearance 55.73 ml/min; Glucose 181 mg/dL (74-106); Sodium Level 131 mmol/L (136-145)
[2017-07-10] MEDS: 0.9% Normal Saline 1,000 ML 150 ML IV (19:00)
[2017-07-10 19:10] LABS: Digoxin Level 1.12 ng/mL (0.80-2.00)
[2017-07-10] MEDS: Ipratropium/Albuterol Sulfate 3 ML AMPUL.NEB INHALATION (19:40)
--- NOTE | 2017-07-10 22:04 | ED.VISSUMM ---
- ER Visit Summary Date of Service: 07/10/17 Chief Complaint: Syncope History of Present Illness: The patient is a 61 F who states she was outside a lot today and got too warm. She became lightheaded and was found slumped over in her wheelchair. Patient believes she passed out because she was just too hot. At this time she is feeling improved but somewhat sleepy. She denies chest pain or palpitations. She does report having a moist cough recently. She has not had fever. Past history significant for coronary disease with prior [place], COPD, diabetes, hypertension, A. fib, and reflux disease. Patient is currently on digoxin along with Xarelto. Physical Examination: Vital signs are unremarkable. Patient is sitting upright in bed. She is resting with her eyes closed but will answer questions appropriately and open eyes to voice. Head neck examination is unremarkable. Heart is regular rate and rhythm. On lung sounds with slight expiratory wheezes. Abdomen is soft nontender. Neuro exam reveals no focal deficits. She is moving all 4 and answering questions appropriately. Test Results: EKG is A. fib at 91. There is anterior lateral ST depression noted that is changed compared to prior. CBC was a white count of 13.6 with hemoglobin 10.9. Chemistry studies reveal a sodium of 131 and a glucose of 181. Troponin at this time is less than 0.015. Emergency Department Course and Treatment: Patient was given IV fluids and a DuoNeb. I did review prior workups and it does appear patient had a stress test on May 13 of this year that was unremarkable. With her having a syncopal episode along with EKG changes and not feeling completely back to her baseline, patient will be admitted for further observation and further testing. I spoke with the hospitalist. Treatment Plan: [] Disposition: Admit Impression: 1. Syncope 2. EKG changes This note was generated with [employer] dictation software. It may contain incorrect words, spelling, and punctuation that were not noted in review of the chart prior to signing ED Disposition - Plan for ED Patient: Disposition: Acute Care Hospital [facility] Chief Complaint: Chest Pain
--- NOTE | 2017-07-10 22:20 | PCM.HP.STD ---
Problem List (1) Syncope Status: Acute (2) Chest pain Status: Acute (3) COPD (chronic obstructive pulmonary disease) Status: Chronic Qualifiers: (4) Cardiomyopathy Status: Chronic Qualifiers: Comment: EF in Oct 2015 45-50 (5) Chronic atrial fibrillation Status: Chronic (6) Chronic hypoxemic respiratory failure Status: Chronic (7) GERD (gastroesophageal reflux disease) Status: Chronic Qualifiers: (8) HTN (hypertension) Status: Chronic Qualifiers: (9) Hyperlipemia Status: Chronic Qualifiers: (10) Hypersomnia Status: Chronic History of Present Illness Date of Admission: 07/10/17 Chief Complaint: Syncope The patient is a 61 year old female w/ h/o CAD, HTN, COPD, chronic afib, and HTN admitted for syncope. She is a poor historian. She was outside and slumped over in her wheelchair. She said that she probably had chest pressure but could not recall much of the pain. She felt that it was a hot day and she passed out. Down time was unknown. She denies any other symptoms. She was brought to the ED because she was found slumped in the wheelchair. Past Medical History Past Medical History (Chronic Problems): Chronic Problems (Last Reviewed 05/20/17 @ 12:52 by Mary Ruiz) SOB (shortness of breath) (Chronic) Osteoporosis (Chronic) Hypersomnia (Chronic) Former smoker (Chronic) Quit in the fall 2016 Hypomagnesemia (Chronic) HTN (hypertension) (Chronic) Morbid obesity with BMI of 40.0-44.9, adult (Chronic) COPD (chronic obstructive pulmonary disease) (Chronic) Chronic pain (Chronic) Chronic atrial fibrillation (Chronic) Non-compliance (Chronic) withn follow up with pulmonary Chronic hypoxemic respiratory failure (Chronic) Cardiomyopathy (Chronic) EF in Oct 2015 45-50 Hyperlipemia (Chronic) Type 2 diabetes mellitus (Chronic) GERD (gastroesophageal reflux disease) (Chronic) Anxiety (Chronic) Insomnia (Chronic) Allergies venom-honey bee [bee venom (honey bee)] Allergy (Verified 07/10/17 18:02) Swelling levofloxacin [From Levaquin] Adverse Reaction (Verified 07/10/17 18:02) Nausea oxycodone HCl [From Percocet] Adverse Reaction (Verified 07/10/17 18:02) Nausea Penicillins Adverse Reaction (Verified 07/10/17 18:02) Nausea/Vom/Diarrhea Home Medications: Ambulatory Orders Medication Instructions Recorded Acetaminophen [Tylenol] 2 tab PO Q6H PRN 05/12/17 Albuterol Aerosols [Ventolin 2.5 mg INHALATION Q2H PRN PRN 05/12/17 Aerosols] Atorvastatin Calcium [Lipitor] 40 mg PO QHS 05/12/17 Budesonide/Formoterol 160/4.5 2 puff INHALATION BID 05/12/17 [Symbicort 160/4.5 Mcg Inhaler (SP)] Bupropion HCl [Bupropion HCl Sr] 150 mg PO BID 05/12/17 Buspirone HCl 10 mg PO TID 05/12/17 Digoxin 250 mcg PO DAILY 05/12/17 Diltiazem [Cardizem] 120 mg PO BID 05/12/17 Docusate Sodium [Colace] 100 mg PO QHS 05/12/17 Famotidine [Pepcid] 20 mg PO BID 05/12/17 Furosemide [Lasix] 40 mg PO BID 05/12/17 Gabapentin [Neurontin] 100 mg PO TID 05/12/17 Glucagon,Human Recombinant 1 mg IJ PRN PRN 05/12/17 [Glucagon Emergency Kit] Guaifenesin [Mucinex] 1,200 mg PO BID 05/12/17 Insulin Glargine,Hum.rec.anlog 55 unit SQ QHS 05/12/17 [Basaglar Kwikpen U-100] Insulin Lispro [Humalog] 12 unit SQ TIDCM 05/12/17 Ipratropium/Albuterol Sulfate 3 ml INHALATION Q4H.RT 05/12/17 [Duoneb] Lisinopril [Prinivil] 5 mg PO DAILY 05/12/17 Mag Hydrox/Al Hydrox/Simeth 30 ml PO Q6H PRN 05/12/17 [Antacid Liquid] Polyethylene Glycol 3350 [Miralax] 17 gm PO DAILY 05/12/17 Potassium Chloride [K-Dur] 10 meq PO BID 05/12/17 Propranolol HCl [Inderal (Beta 10 mg PO BID 05/12/17 Rubén)] Rivaroxaban [Xarelto] 20 mg PO DAILY 05/12/17 Sennosides/Docusate Sodium 2 tab PO DAILY PRN 05/12/17 [Senna-Docusate Sodium Tablet] Surgical History: hysterectomy, tonsillectomy, - - Lumbar surgery. 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 Sibling History Items: Asthma, COPD, Hypertension Review of Systems Constitutional: Denies: Chills, Fever, Weight Change HEENT: Denies: Head Aches, Sinus Congestion, Sinus Drainage Cardiovascular: Denies: Chest Pain, Palpitations Respiratory: Denies: Cough, Shortness of breath at rest, Sputum production Gastrointestinal: Denies: Abdominal Pain, Nausea, Vomiting Genitourinary: Denies: Dysuria Musculoskeletal: Denies: Joint Pain, Joint Tenderness Skin: Denies: Rash, Wounds Neurological: Denies: Numbness, Tingling, Focal weakness Psychiatric: Denies: Anxiety, Depression, Homicidal Ideations, Suicidal Ideations Hematologic/ Lymphatic: Denies: Easy Bruising, Easy Bleeding VTE Information - Inpt Only VTE Present on Admission: No VTE Mechan Device Prophylaxis: SCD's VTE Pharm Prophylaxis ordered?: Yes Patient Problems: Active and Suspected Problems (Last Reviewed 05/20/17 @ 12:52 by Mary Ruiz) Syncope (Acute) Chest pain (Acute) - Physical Exam General: Alert, Oriented x3, Cooperative HEENT: Atraumatic, PERRLA, EOMI, Normocephalic Neck: Supple, No JVD, Negative Carotid Bruits Lungs: Clear to auscultation, Normal air movement Cardiovascular: No murmurs, Irregular Rate Abdomen: Bowel Sounds Present, Soft, Non Tender Extremities: Capillary Refill Less than 3 Seconds, Edema Skin: No rashes, No breakdown Musculoskeletal: No Tenderness to Palpation of Joints or Extremities Neurological: Cranial nerves II-XII grossly intact Psych/Mental Status: Normal Affect, Appropriate Vital Signs Temp Pulse Resp BP Pulse Ox 98.2 F 77 22 H 140/76 H 100 07/10/17 17:58 07/10/17 22:00 07/10/17 22:00 07/10/17 22:00 07/10/17 22:00 Oxygen Flow Rate (L/min) 2 Oxygen Delivery Method Nasal Cannula Weight: 97.1 kg Body Mass Index (BMI) 40.4 Finger Stick Blood Glucose 364 Laboratory Tests Past 24 Hrs 07/10/17 07/10/17 07/10/17 18:10 18:10 18:10 WBC 13.6 H RBC 4.38 Hgb 10.9 L Hct 34.3 L MCV 78.3 L MCH 24.9 L MCHC 31.8 L RDW 16.1 H RDW Differential 45.7 H Plt Count 376 MPV 10.6 Immature Gran % (Auto) 0.300 Neut % (Auto) 64.5 Lymph % (Auto) 24.2 [place] % (Auto) 7.1 Eos % (Auto) 3.5 Baso % (Auto) 0.4 Absolute Neuts (auto) 8.8 H Absolute Lymphs (auto) 3.30 Total Counted Not Reportable Sodium 131 L Potassium 4.0 Chloride 99 Carbon Dioxide 25.0 Anion Gap 7 BUN 11 Creatinine 0.80 Estim Creat Clear Calc 55.73 Est GFR (MDRD) Af Amer 93 Est GFR (MDRD) Non-Af 77 BUN/Creatinine Ratio 13.7 Glucose 181 H Calcium 8.5 Troponin I Digoxin 1.12 07/10/17 18:10 WBC RBC Hgb Hct MCV MCH MCHC RDW RDW Differential Plt Count MPV Immature Gran % (Auto) Neut % (Auto) Lymph % (Auto) [place] % (Auto) Eos % (Auto) Baso % (Auto) Absolute Neuts (auto) Absolute Lymphs (auto) Total Counted Sodium Potassium Chloride Carbon Dioxide Anion Gap BUN Creatinine Estim Creat Clear Calc Est GFR (MDRD) Af Amer Est GFR (MDRD) Non-Af BUN/Creatinine Ratio Glucose Calcium Troponin I < 0.015 Digoxin POC Glucose 07/10/17 18:09 POC Glucose 198 H Assessment/Plan Active and Suspected Problems (Last Reviewed 05/20/17 @ 12:52 by Mary Ruiz) Syncope (Acute) Chest pain (Acute) 61 year old female w/ h/o CAD, HTN, COPD, chronic afib, and HTN admitted for syncope. 1) Syncope: Concerning for cardiac causes. She recently had a stress test in April that was negative. Will get carotid US. Will consult cards. 2) Chest pain: Poor historian. Given recent negative stress test and EKG disclosed new anterior lateral ST depression, will consult cards. Follow trops. ECHO in AM. Will also get FLP. Resume medical management. 3) Chronic afib: C/w rate controlled. C/w xarelto. Will get digoxin level. 4) Chronic issues: COPD, CAD, HTN: Resume home meds. Monitor.
[2017-07-11] VITALS (18 sets, daily range): BP systolic 94–132; BP diastolic 47–62; PULSE 54–98; RESP 17–20; TEMP 36.5–36.8; O2SAT 2–99
[2017-07-11] MEDS: Ipratropium/Albuterol Sulfate 3 ML AMPUL.NEB INHALATION ×6 (00:30→23:22)
[2017-07-11] MEDS: busPIRone 5 MG Tablet 10 MG PO ×3 (04:53→21:09)
[2017-07-11] MEDS: 0.9% Normal Saline 1,000 ML 150 ML IV ×3 (04:53→18:25)
[2017-07-11] MEDS: Gabapentin 100 MG Capsule PO ×3 (04:54→21:09)
--- NOTE | 2017-07-11 05:55 | ECHOD_ITS ---
Reason For Study: Chest Pain Procedure This was a 2D Doppler, Color Flow transthoracic echocardiogram. Technically difficult study, patient had to sit up due to back pain. The study was technically difficult. Exam performed portable in patient room. Left Ventricle Normal LV size. Left ventricular systolic function is hyperdynamic. The estimated ejection fraction is 75 %. Unable to assess diastolic dysfunction. No regional wall motion abnormalities noted. Right Ventricle Normal RV size. Normal systolic function. Atria The left atrium is mildly enlarged. Normal right atrium. Lipomatous hypertrophy of the atrial septum. No doppler evidence for ASD. Mitral Valve There is mild to moderate mitral annular calcification. Extension of the mitral annular calcification onto the posterior mitral valve leaflet. Trivial mitral valve insufficiency. Tricuspid Valve Normal tricuspid valve. Trivial tricuspid valve insufficiency. Unable to estimate RV systolic pressure/pulmonary artery pressure due to technically difficult study. Aortic Valve The aortic valve is not well visualized. Based upon spectral doppler information obtained there appears to be aortic valve sclerosis / mild aortic valve stenosis. Pulmonic Valve The pulmonic valve is not well visualized. Great Vessels Normal sized aortic root. Pericardium/Pleural Epicardial fat. Small pericardial effusion. There are no echocardiographic indications of cardiac tamponade. MMode/2D Measurements & Calculations LVOT diam: 1.8 cm LAV(MOD-bp): 55.0 ml LA A4 area: 21.8 cm2 LVOT area: 2.7 cm2 LAV(MOD-bp) Indexed: 28.5 ml/m2 LAV(MOD-sp2): 47.7 ml LAV(MOD-sp4): 62.5 ml Time Measurements MV dec time: 0.23 sec Doppler Measurements & Calculations MV E max jami: 149.4 cm/sec Ao V2 max: 245.3 cm/sec LV V1 max: 165.4 cm/sec MV A max jami: 49.1 cm/sec Ao max P.1 mmHg LV V1 max P.9 mmHg MV E/A: 3.0 Ao V2 mean: 135.9 cm/sec LV V1 mean P.4 mmHg Ao mean P.1 mmHg LV V1 mean: 108.0 cm/sec Ao V2 VTI: 34.0 cm LV V1 VTI: 24.4 cm ANUJA(I,D): 1.9 cm2 ANUJA(V,D): 1.8 cm2 SV(LVOT): 65.5 ml PA V2 max: 167.6 cm/sec Interpretation Summary The study was technically difficult. Left ventricular systolic function is hyperdynamic. The estimated ejection fraction is 75 %. The left atrium is mildly enlarged. Lipomatous hypertrophy of the atrial septum. There is mild to moderate mitral annular calcification. Extension of the mitral annular calcification onto the posterior mitral valve leaflet. Trivial mitral valve insufficiency. Trivial tricuspid valve insufficiency. Based upon spectral doppler information obtained there appears to be aortic valve sclerosis / mild aortic valve stenosis. Epicardial fat. Small pericardial effusion. There are no echocardiographic indications of cardiac tamponade. Unable to estimate RV systolic pressure/pulmonary artery pressure due to technically difficult study. Unable to assess diastolic dysfunction. Ordering Physician: Chau López Referring Physician: Jaime Shah Performed By: Tyrone Darby RCS
[2017-07-11 06:26] LABS: D-Dimer Quantitative (DVT/PE) < 0.27 FEU/ug/m (0.27-0.49)
[2017-07-11 07:07] LABS: Digoxin Level 0.97 ng/mL (0.80-2.00)
[2017-07-11 07:10] LABS: AST(SGOT) 13 U/L (15-37); Alanine Aminotransfer ALT/SGPT 14 U/L (13-56); Albumin, Serum 2.7 g/dL (3.2-5.0); Alkaline Phosphatase 125 U/L (45-117); Bilirubin, Direct 0.08 mg/dL (0.00-0.30); Cholesterol 120 mg/dL (200); Globulin 3.7 g/dL (2.2-4.2); High Density Lipoprotein 35 mg/dL; Protein, Total 6.4 g/dL (6.4-8.2); Thyroid Stim Hormone (TSH) 1.79 uIU/mL (0.358-3.74); Triglycerides 242 mg/dL; Very Low Density Lipoprotein 48 mg/dL (5-40)
[2017-07-11] MEDS: Budesonide Respules 0.5 MG/2 ML AMPUL.NEB. INHALATION ×2 (07:25→18:52)
[2017-07-11 08:32] LABS: BNP,B-Type NATRIURETIC PEPTIDE 38.2 pg/mL (0-100)
[2017-07-11] MEDS: Glucerna Shake 120 ML LIQUID PO ×3 (09:03→17:06)
[2017-07-11] MEDS: Propranolol 10 MG Tablet PO ×2 (09:04→21:09)
[2017-07-11] MEDS: guaiFENesin 600 MG Tablet 1200 MG PO ×2 (09:07→21:09)
[2017-07-11] MEDS: Famotidine 20 MG Tablet PO ×2 (09:08→21:09)
[2017-07-11] MEDS: buPROPion (SR) 150 MG Tablet.SA PO ×2 (09:08→21:09)
[2017-07-11] MEDS: Digoxin 250 MCG Tablet PO (09:08)
[2017-07-11] MEDS: Lisinopril 5 MG Tablet PO (09:09)
[2017-07-11] MEDS: Rivaroxaban 20 MG Tablet PO (09:09)
[2017-07-11] MEDS: Acetaminophen 325 MG Tablet 650 MG PO ×2 (09:13→21:11)
[2017-07-11 09:26] LABS: Bedside Glucose 236 mg/dL (70-110)
--- NOTE | 2017-07-11 10:01 | PCM.PROGNOTE ---
Patient Problems: Active and Suspected Problems (Last Reviewed 05/20/17 @ 12:52 by Mray Ruiz) Syncope (Acute) Chest pain (Acute) Subjective: Patient seen and examined. In bed eating breakfast in no acute distress. Patient denies dizziness, lightheadedness. Denies chest pain. Denies further syncope, presyncope. Patient states she had no symptoms prior to syncopal episode at [facility]. She denied chest pain prior to syncopal episode. No acute events overnight. - Physical Exam General: Alert, Oriented x3, Cooperative, No apparent distress HEENT: Atraumatic, PERRLA, EOMI, Normocephalic Oral: Moist Mucosa Neck: Supple, No JVD, Negative Carotid Bruits Lungs: Diminished, Wheezes Cardiovascular: Regular rate, Normal S1, Normal S2, No murmurs, - - A.fib. Abdomen: Bowel Sounds Present, Soft, Non Tender, Non-Distended Extremities: No clubbing, No cyanosis, No edema, Capillary Refill Less than 3 Seconds Skin: No rashes, No breakdown Musculoskeletal: No Tenderness to Palpation of Joints or Extremities Neurological: Cranial nerves II-XII grossly intact, Neuro grossly intact Psych/Mental Status: Normal Affect, Appropriate Vital Signs Temp Pulse Resp BP Pulse Ox 97.7 F L 83 20 H 120/52 L 96 07/11/17 05:00 07/11/17 07:25 07/11/17 07:25 07/11/17 05:00 07/11/17 07:25 Oxygen Flow Rate (L/min) 3 Oxygen Delivery Method Nasal Cannula Weight: 95.5 kg Body Mass Index (BMI) 39.7 Orthostatic Vital Signs Start: 07/11/17 00:21 Freq: q24h Status: Active Protocol: Activity Type Activity Date Activity User E-Sign Co-Sign Detail Recorded Client Recorded Date Recorded By Document 07/11/17 00:21 [facility] [id number] 07/11/17 00:23 [facility] 07/11/17 00:21 Orthostatic Vitals Standing -Blood Pressure (90/60-120/80) 108/62 -Extremity Use Right Arm -Pulse Rate (60-100) 98 Sitting -Blood Pressure (90/60-120/80) 128/52 H -Extremity Use Right Arm -Pulse Rate (60-100) 82 Lying -Blood Pressure (90/60-120/80) 115/47 L -Extremity Use Right Arm -Pulse Rate (60-100) 70 Intake and Output for Last 24 Hours 07/09/17 07/10/17 07/11/17 23:59 23:59 23:59 Intake Total 712 / 712 Output Total 450 / 450 Balance 262 / 262 Laboratory Tests Past 24 Hrs 07/10/17 07/11/17 07/11/17 23:15 01:37 05:10 D-Dimer Quant (PE/DVT) Total Bilirubin Direct Bilirubin AST ALT Alkaline Phosphatase Troponin I < 0.015 < 0.015 B-Natriuretic Peptide 38.2 Total Protein Albumin Globulin Triglycerides Cholesterol LDL Cholesterol VLDL Cholesterol HDL Cholesterol TSH Digoxin 07/11/17 07/11/17 07/11/17 05:10 05:10 05:10 D-Dimer Quant (PE/DVT) < 0.27 L Total Bilirubin 0.30 Direct Bilirubin 0.08 AST 13 L ALT 14 Alkaline Phosphatase 125 H Troponin I B-Natriuretic Peptide Total Protein 6.4 Albumin 2.7 L Globulin 3.7 Triglycerides 242 H Cholesterol 120 LDL Cholesterol 37 VLDL Cholesterol 48 H HDL Cholesterol 35 L TSH 1.79 Digoxin 0.97 07/11/17 05:10 D-Dimer Quant (PE/DVT) Total Bilirubin Direct Bilirubin AST ALT Alkaline Phosphatase Troponin I < 0.015 B-Natriuretic Peptide Total Protein Albumin Globulin Triglycerides Cholesterol LDL Cholesterol VLDL Cholesterol HDL Cholesterol TSH Digoxin POC Glucose 07/11/17 09:17 POC Glucose 236 H Medical Necessity - Tobacco Use Smoking Status: Never smoker Tobacco Use: Cigarettes Assessment/Plan Active and Suspected Problems (Last Reviewed 05/20/17 @ 12:52 by Mary Ruiz) Syncope (Acute) Chest pain (Acute) Patient is a 61-year-old female admitted 07/10/2017 due to syncope. She has a past medical history of COPD, chronic atrial fibrillation, hypertension, type 2 diabetes mellitus, hyperlipidemia, GERD, anxiety, chronic hypoxic respiratory failure, obesity, cardiomyopathy. 1. Syncope-troponin negative. Stress test May 13, 2017 negative for ischemia. Echocardiogram 05/13/2017 showed an EF of 65%, mild aortic stenosis. EKG on admission showed new anterior lateral ST depression. Cardiology consulted. Repeat echo pending. TSH within normal limits. Check magnesium. Check urinalysis. Carotid ultrasound ordered. Orthostatic vitals negative. PT/OT. 2. Severe COPD with chronic hypoxic respiratory failure-continue albuterol and DuoNeb aerosols. Pulmicort aerosol. Continue supplement oxygen to maintain O2 at or above 90%. 3. Chronic atrial fibrillation-rate controlled. Continue Cardizem, propanolol, Xarelto. 4. Type 2 diabetes [id number] before meals at bedtime with sliding scale insulin. Continue home insulin regimen. 5. Hypertension-stable, continue home Cardizem, Lasix, lisinopril, propanolol, digoxin regimen. 6. Hyperlipidemia-continue statin. 7. History of mild cardiomyopathy-ejection fraction of 45-50%. 8. GERD-continue home famotidine regimen. 9. Anxiety-continue home buspirone, bupropion regimen. 10. Obesity-encouraged diet and lifestyle modifications. Nutrition consult. DVT prophylaxis-Xarelto. This patient was seen by FRANKLIN Cardenas under the supervision of Dr. Esposito.
--- NOTE | 2017-07-11 10:27 | PN_ITS ---
Patient Problems: Active and Suspected Problems (Last Reviewed 05/20/17 @ 12:52 by Mary Ruiz) Syncope (Acute) Chest pain (Acute) Subjective: Patient seen and examined. In bed eating breakfast in no acute distress. Patient denies dizziness, lightheadedness. Denies chest pain. Denies further syncope, presyncope. Patient states she had no symptoms prior to syncopal episode at [facility]. She denied chest pain prior to syncopal episode. No acute events overnight. - Physical Exam General: Alert, Oriented x3, Cooperative, No apparent distress HEENT: Atraumatic, PERRLA, EOMI, Normocephalic Oral: Moist Mucosa Neck: Supple, No JVD, Negative Carotid Bruits Lungs: Diminished, Wheezes Cardiovascular: Regular rate, Normal S1, Normal S2, No murmurs, - - A.fib. Abdomen: Bowel Sounds Present, Soft, Non Tender, Non-Distended Extremities: No clubbing, No cyanosis, No edema, Capillary Refill Less than 3 Seconds Skin: No rashes, No breakdown Musculoskeletal: No Tenderness to Palpation of Joints or Extremities Neurological: Cranial nerves II-XII grossly intact, Neuro grossly intact Psych/Mental Status: Normal Affect, Appropriate Vital Signs Temp Pulse Resp BP Pulse Ox 97.7 F L 83 20 H 120/52 L 96 07/11/17 05:00 07/11/17 07:25 07/11/17 07:25 07/11/17 05:00 07/11/17 07:25 Oxygen Flow Rate (L/min) 3 Oxygen Delivery Method Nasal Cannula Weight: 95.5 kg Body Mass Index (BMI) 39.7 Orthostatic Vital Signs Start: 07/11/17 00:21 Freq: q24h Status: Active Protocol: Activity Type Activity Date Activity User E-Sign Co-Sign Detail Recorded Client Recorded Date Recorded By Document 07/11/17 00:21 [facility] [id number] 07/11/17 00:23 [facility] 07/11/17 00:21 Orthostatic Vitals Standing -Blood Pressure (90/60-120/80) 108/62 -Extremity Use Right Arm -Pulse Rate (60-100) 98 Sitting -Blood Pressure (90/60-120/80) 128/52 H -Extremity Use Right Arm -Pulse Rate (60-100) 82 Lying -Blood Pressure (90/60-120/80) 115/47 L -Extremity Use Right Arm -Pulse Rate (60-100) 70 Intake and Output for Last 24 Hours 07/09/17 07/10/17 07/11/17 23:59 23:59 23:59 Intake Total 712 / 712 Output Total 450 / 450 Balance 262 / 262 Laboratory Tests Past 24 Hrs 07/10/17 07/11/17 07/11/17 23:15 01:37 05:10 D-Dimer Quant (PE/DVT) Total Bilirubin Direct Bilirubin AST ALT Alkaline Phosphatase Troponin I < 0.015 < 0.015 B-Natriuretic Peptide 38.2 Total Protein Albumin Globulin Triglycerides Cholesterol LDL Cholesterol VLDL Cholesterol HDL Cholesterol TSH Digoxin 07/11/17 07/11/17 07/11/17 05:10 05:10 05:10 D-Dimer Quant (PE/DVT) < 0.27 L Total Bilirubin 0.30 Direct Bilirubin 0.08 AST 13 L ALT 14 Alkaline Phosphatase 125 H Troponin I B-Natriuretic Peptide Total Protein 6.4 Albumin 2.7 L Globulin 3.7 Triglycerides 242 H Cholesterol 120 LDL Cholesterol 37 VLDL Cholesterol 48 H HDL Cholesterol 35 L TSH 1.79 Digoxin 0.97 07/11/17 05:10 D-Dimer Quant (PE/DVT) Total Bilirubin Direct Bilirubin AST ALT Alkaline Phosphatase Troponin I < 0.015 B-Natriuretic Peptide Total Protein Albumin Globulin Triglycerides Cholesterol LDL Cholesterol VLDL Cholesterol HDL Cholesterol TSH Digoxin POC Glucose 07/11/17 09:17 POC Glucose 236 H Medical Necessity - Tobacco Use Smoking Status: Never smoker Tobacco Use: Cigarettes Assessment/Plan Active and Suspected Problems (Last Reviewed 05/20/17 @ 12:52 by Mary Ruiz) Syncope (Acute) Chest pain (Acute) Patient is a 61-year-old female admitted 07/10/2017 due to syncope. She has a past medical history of COPD, chronic atrial fibrillation, hypertension, type 2 diabetes mellitus, hyperlipidemia, GERD, anxiety, chronic hypoxic respiratory failure, obesity, cardiomyopathy. 1. Syncope-troponin negative. Stress test May 13, 2017 negative for ischemia. Echocardiogram 05/13/2017 showed an EF of 65%, mild aortic stenosis. EKG on admission showed new anterior lateral ST depression. Cardiology consulted. Repeat echo pending. TSH within normal limits. Check magnesium. Check urinalysis. Carotid ultrasound ordered. Orthostatic vitals negative. PT/ OT. 2. Severe COPD with chronic hypoxic respiratory failure-continue albuterol and DuoNeb aerosols. Pulmicort aerosol. Continue supplement oxygen to maintain O2 at or above 90%. 3. Chronic atrial fibrillation-rate controlled. Continue Cardizem, propanolol, Xarelto. 4. Type 2 diabetes [id number] before meals at bedtime with sliding scale insulin. Continue home insulin regimen. 5. Hypertension-stable, continue home Cardizem, Lasix, lisinopril, propanolol, digoxin regimen. 6. Hyperlipidemia-continue statin. 7. History of mild cardiomyopathy-ejection fraction of 45-50%. 8. GERD-continue home famotidine regimen. 9. Anxiety-continue home buspirone, bupropion regimen. 10. Obesity-encouraged diet and lifestyle modifications. Nutrition consult. DVT prophylaxis-Xarelto. This patient was seen by FRANKLIN Cardenas under the supervision of Dr. Esposito.
[2017-07-11 10:44] LABS: Magnesium 1.8 mg/dL (1.6-2.6)
[2017-07-11 11:30] LABS: Bedside Glucose 233 mg/dL (70-110)
--- NOTE | 2017-07-11 12:03 | NURSING ---
Attempted to contact staff member from [facility] without answer. Number dialed was [phone]. Message left on voicemail to return call.
[2017-07-11] MEDS: CLARIFY ORDER 1 EACH NOTE (12:05)
[2017-07-11] MEDS: MethylPREDNISolone 125 MG/2 ML Vial IV (12:28)
[2017-07-11 12:35] LABS: Mucous, Urine 0 SEEN /hpf (<or=2+); Red Blood Cells-Urine 0 SEEN /hpf (0-5)
[2017-07-11 12:38] LABS: Color, Urine Yellow (Yellow); Glucose, Dipstick 100 mg/dl (Normal); Ketone-Dipstick Negative (Negative); Leukocyte Esterase-Dipstick 25 /ul (Negative); Nitrite-Dipstick Negative (Negative); Occult Blood-Urine Negative /ul (Negative); Protein-Dipstick 15 mg/dl (Negative); Specific Gravity, Urine 1.015 (1.002-1.030); Urine Bilirubin Dipstick Negative (Negative); Urine Clarity Clear (Clear); Urine Urobilinogen Normal (Normal)
[2017-07-11 12:49] LABS: Bacteria RARE /hpf (None Seen); Squamous Epithelial Cells - UA 0-5 SEEN /hpf (5-10); White Blood Cells 0-5 SEEN /hpf (0-5)
--- NOTE | 2017-07-11 13:22 | NURSING ---
Facility staff member returns call. Per facility staff member, patient is on Regular Cardizem.
[2017-07-11] MEDS: CLARIFY ORDER NOTE (14:05)
[2017-07-11] MEDS: dilTIAZem 60 MG Tablet 120 MG PO ×2 (14:21→21:11)
--- NOTE | 2017-07-11 15:06 | PCM.CONS.C ---
Problem List (1) Syncope Status: Acute (2) Chronic atrial fibrillation Status: Chronic (3) Hyperlipemia Status: Chronic Qualifiers: (4) HTN (hypertension) Status: Chronic Qualifiers: (5) Type 2 diabetes mellitus Status: Chronic Qualifiers: (6) COPD (chronic obstructive pulmonary disease) Status: Chronic Qualifiers: (7) Morbid obesity with BMI of 40.0-44.9, adult Status: Chronic Reason for Consult Date of Consultation: 07/11/17 History of Present Illness: The patient is a 61 year old white female with a past medical history of atrial fibrillation superimposed upon hyperlipidemia, hypertension, diabetes mellitus, COPD, and obesity who is referred for evaluation of syncope. She states that she was sitting in a wheelchair, outside, and apparently slumped over . She does not recall sensing any obvious chest discomfort or difficulty breathing. She does not recall having any obvious palpitations, sensation of nausea, emesis, or becoming diaphoretic. She does not recall how long she was reportedly unconscious. She was brought to the hospital for further evaluation. She was placed in the PCU. She is undergone cardiac enzymes that have been negative. Her ECG demonstrated atrial fibrillation with nonspecific ST and T-wave abnormality. It appears she recently underwent evaluation with a transthoracic echocardiogram on 05/13/2017. At that time the left ventricle was thought to be normal with an LVEF of 65% with mild focal aortic valve calcification and a diagnosis of mild aortic valve stenosis. She also recently, on the same day, underwent a pharmacologic stress nuclear imaging study. Per the report this was thought to be a normal pharmacologic myocardial perfusion stress test. Her gated LVEF was reported at 83%. [] Past Medical History Allergies/Adverse Reactions: Allergies venom-honey bee [bee venom (honey bee)] Allergy (Verified 07/10/17 18:02) Swelling levofloxacin [From Levaquin] Adverse Reaction (Verified 07/10/17 18:02) Nausea oxycodone HCl [From Percocet] Adverse Reaction (Verified 07/10/17 18:02) Nausea Penicillins Adverse Reaction (Verified 07/10/17 18:02) Nausea/Vom/Diarrhea Home Medications: Ambulatory Orders Medication Instructions Recorded Acetaminophen [Tylenol] 2 tab PO Q6H PRN 05/12/17 Albuterol Aerosols [Ventolin 2.5 mg INHALATION Q2H PRN PRN 05/12/17 Aerosols] Atorvastatin Calcium [Lipitor] 40 mg PO QHS 05/12/17 Budesonide/Formoterol 160/4.5 2 puff INHALATION BID 05/12/17 [Symbicort 160/4.5 Mcg Inhaler (SP)] Bupropion HCl [Bupropion HCl Sr] 150 mg PO BID 05/12/17 Buspirone HCl 10 mg PO TID 05/12/17 Digoxin 250 mcg PO DAILY 05/12/17 Diltiazem [Cardizem] 120 mg PO BID 05/12/17 Docusate Sodium [Colace] 100 mg PO QHS 05/12/17 Famotidine [Pepcid] 20 mg PO BID 05/12/17 Furosemide [Lasix] 40 mg PO BID 05/12/17 Gabapentin [Neurontin] 100 mg PO TID 05/12/17 Glucagon,Human Recombinant 1 mg IJ PRN PRN 05/12/17 [Glucagon Emergency Kit] Guaifenesin [Mucinex] 1,200 mg PO BID 05/12/17 Insulin Glargine,Hum.rec.anlog 55 unit SQ QHS 05/12/17 [Basaglar Kwikpen U-100] Insulin Lispro [Humalog] 12 unit SQ TIDCM 05/12/17 Ipratropium/Albuterol Sulfate 3 ml INHALATION Q4H.RT 05/12/17 [Duoneb] Lisinopril [Prinivil] 5 mg PO DAILY 05/12/17 Mag Hydrox/Al Hydrox/Simeth 30 ml PO Q6H PRN 05/12/17 [Antacid Liquid] Polyethylene Glycol 3350 [Miralax] 17 gm PO DAILY 05/12/17 Potassium Chloride [K-Dur] 10 meq PO BID 05/12/17 Propranolol HCl [Inderal (Beta 10 mg PO BID 05/12/17 Rubén)] Rivaroxaban [Xarelto] 20 mg PO DAILY 05/12/17 Sennosides/Docusate Sodium 2 tab PO DAILY PRN 05/12/17 [Senna-Docusate Sodium Tablet] Past Medical History (Chronic Problems): Chronic Problems (Last Reviewed 05/20/17 @ 12:52 by Mary Ruiz) SOB (shortness of breath) (Chronic) Osteoporosis (Chronic) Hypersomnia (Chronic) Former smoker (Chronic) Quit in the fall 2016 Hypomagnesemia (Chronic) HTN (hypertension) (Chronic) Morbid obesity with BMI of 40.0-44.9, adult (Chronic) COPD (chronic obstructive pulmonary disease) (Chronic) Chronic pain (Chronic) Chronic atrial fibrillation (Chronic) Non-compliance (Chronic) withn follow up with pulmonary Chronic hypoxemic respiratory failure (Chronic) Cardiomyopathy (Chronic) EF in Oct 2015 45-50 Hyperlipemia (Chronic) Type 2 diabetes mellitus (Chronic) GERD (gastroesophageal reflux disease) (Chronic) Anxiety (Chronic) Insomnia (Chronic) Surgical History: hysterectomy, tonsillectomy, - - Lumbar surgery. 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 Sibling Family History: Family History (Last Reviewed 05/20/17 @ 12:52 by Mary Ruiz) Sister Arthritis Diabetes Father Cancer Aunt Diabetes History Items: Asthma, COPD, Hypertension Smoking Status: Never smoker Tobacco Use: Cigarettes Review of Systems - Review of Systems General: Denies: Fever, Night Sweats, Fatigue Cardiovascular: Reports: Shortness of Breath. Denies: Chest Discomfort, Orthopnea, PND, Peripheral Edema, Palpitations, Lightheadedness, Dizziness, Near Syncope, Syncope Respiratory: Denies: Cough, Sputum Production, Hemoptysis Gastrointestinal: Denies: Hematemesis, Hematochezia, Melena Genitourinary: Denies: Dysuria, Hematuria Skin: Denies: Rash Subjectve: This is a 61-year-old white female who appears to be resting comfortably at the moment in no acute distress. Objective: Vital Signs Temp Pulse Resp BP Pulse Ox 97.9 F 67 20 H 132/59 H 2 07/11/17 11:00 07/11/17 11:44 07/11/17 11:16 07/11/17 11:00 07/11/17 14:25 Oxygen Flow Rate (L/min) 3 Oxygen Delivery Method Nasal Cannula Weight: 210 lb 8.663 oz Body Mass Index (BMI) 39.7 Orthostatic Vital Signs Start: 07/11/17 00:21 Freq: q24h Status: Active Protocol: Activity Type Activity Date Activity User E-Sign Co-Sign Detail Recorded Client Recorded Date Recorded By Document 07/11/17 00:21 [facility] [id number] 07/11/17 00:23 [facility] 07/11/17 00:21 Orthostatic Vitals Standing -Blood Pressure (90/60-120/80 mm Hg) 108/62 -Extremity Use Right Arm -Pulse Rate (60-100 beats/min) 98 Sitting -Blood Pressure (90/60-120/80 mm Hg) 128/52 H -Extremity Use Right Arm -Pulse Rate (60-100 beats/min) 82 Lying -Blood Pressure (90/60-120/80 mm Hg) 115/47 L -Extremity Use Right Arm -Pulse Rate (60-100 beats/min) 70 Intake and Output for Last 24 Hours 07/09/17 07/10/17 07/11/17 23:59 23:59 23:59 Intake Total 1832 / 1832 Output Total 450 / 450 Balance 1382 / 1382 General: Awake, Alert, Oriented x 3, Cooperative, No Acute Distress, Obese HEENT: Atraumatic, Normocephalic, PERRL, EOMI, Sclera Non Icteric Oral: Moist Mucosa Neck: Supple, Good ROM, No JVD Lungs: Rhonchi, Inspiratory Wheezes - [place], Expiratory Wheezes-Enrike Cardiovascular: Irregular Rhythm, Normal S1, Normal S2 Vascular: No Carotid Bruits Abdomen: Bowel Sounds Present, Soft, Non Tender Extremities: No Cyanosis, No Clubbing, No edema 07/10/17 23:15: Troponin I < 0.015 07/11/17 01:37: Troponin I < 0.015 07/11/17 05:10: B-Natriuretic Peptide 38.2 07/11/17 05:10: D-Dimer Quant (PE/DVT) < 0.27 L 07/11/17 05:10: Total Bilirubin 0.30, Direct Bilirubin 0.08, Triglycerides 242 H, Cholesterol 120, LDL Cholesterol 37, VLDL Cholesterol 48 H, HDL Cholesterol 35 L 07/11/17 05:10: Digoxin 0.97 05/26/18 05:10: Troponin I < 0.015 07/11/17 05:10: Magnesium 1.8 07/11/17 12:25: Urine Color Yellow, Urine Clarity Clear, Urine pH 6.0, Ur Specific [place] 1.015, Urine Protein 15 H, Urine Glucose (UA) 100 H, Urine Ketones Negative, Urine Occult Blood Negative, Urine Nitrite Negative, Urine Bilirubin Negative, Urine Urobilinogen Normal, Ur Leukocyte Esterase 25 H, Urine RBC 0 SEEN, Urine WBC 0-5 SEEN Rhythm: Atrial fibrillation EKG: As noted above ECHO: As noted above Stress Test: As noted above CXR: Preliminary evaluation: No acute cardiopulmonary disease process: Please see official report Assessment/Plan 1. Syncope The patient reportedly had a syncopal event. She seems to be unclear of any obvious symptoms prior to or following her event. She is unclear as to how long she reportedly was unconscious. She has been undergoing cardiovascular evaluation. She has remained in atrial fibrillation which appears to be chronic/permanent for her. There is been no objective evidence of acute coronary syndrome by cardiac enzyme, etc. She recently underwent noninvasive evaluation as noted above with no definitive findings of diminished LV systolic function, hemodynamically significant valvular heart disease, or evidence of myocardial ischemia to suggest underlying CAD. Thus it is unclear as to whether or not this event, after happening outside, was related to concerns of possible decreased intravascular volume, orthostasis type changes, or some other underlying cardiovascular issues such as a cardiac dysrhythmia that has yet to be defined. She is being evaluated for any other obvious etiologies based upon her other conditions as well. At the present time she will continue to be monitored. She will continue evaluation care of her other conditions. Consideration will be given as to how to proceed, if there is no other obvious etiology, with respect further diagnostic studies. This may include future outpatient ambulatory event monitoring and/or implantable loop recorder, etc. 2. Atrial fibrillation The patient does have a history of underlying atrial fibrillation. She has been on rate control therapy and anticoagulant therapy. Her rate and rhythm will be monitored. 3. Hyperlipidemia The patient will continue evaluation care as deemed appropriate. 4. Hypertension The patient's blood pressure will be monitored for any obvious etiologies and explain her event. Her medications can be adjusted as needed. 5. Diabetes mellitus The patient should be evaluated for any obvious metabolic disturbances that would explain her event as well. 6. COPD The patient can be evaluated for underlying pulmonary disease process. Is unclear whether or not she could have developed hypoxia that may explain her process as well. 7. Morbid obesity Portion of the patient remains markedly overweight. She has been counseled in the past on dietary therapy and activity to try and bring her weight under better control. This note was generated with [employer] dictation software. It may contain incorrect words, spelling, and punctuation that were not noted in checking the note before signing.
--- NOTE | 2017-07-11 15:17 | CON.PCM_ITS ---
Problem List (1) Syncope Status: Acute (2) Chronic atrial fibrillation Status: Chronic (3) Hyperlipemia Status: Chronic Qualifiers: (4) HTN (hypertension) Status: Chronic Qualifiers: (5) Type 2 diabetes mellitus Status: Chronic Qualifiers: (6) COPD (chronic obstructive pulmonary disease) Status: Chronic Qualifiers: (7) Morbid obesity with BMI of 40.0-44.9, adult Status: Chronic Reason for Consult Date of Consultation: 07/11/17 History of Present Illness: The patient is a 61 year old white female with a past medical history of atrial fibrillation superimposed upon hyperlipidemia, hypertension, diabetes mellitus, COPD, and obesity who is referred for evaluation of syncope. She states that she was sitting in a wheelchair, outside, and apparently slumped over . She does not recall sensing any obvious chest discomfort or difficulty breathing. She does not recall having any obvious palpitations, sensation of nausea, emesis , or becoming diaphoretic. She does not recall how long she was reportedly unconscious. She was brought to the hospital for further evaluation. She was placed in the PCU. She is undergone cardiac enzymes that have been negative. Her ECG demonstrated atrial fibrillation with nonspecific ST and T- wave abnormality. It appears she recently underwent evaluation with a transthoracic echocardiogram on 05/13/2017. At that time the left ventricle was thought to be normal with an LVEF of 65% with mild focal aortic valve calcification and a diagnosis of mild aortic valve stenosis. She also recently, on the same day, underwent a pharmacologic stress nuclear imaging study. Per the report this was thought to be a normal pharmacologic myocardial perfusion stress test. Her gated LVEF was reported at 83%. [] Past Medical History Allergies/Adverse Reactions: Allergies venom-honey bee [bee venom (honey bee)] Allergy (Verified 07/10/17 18:02) Swelling levofloxacin [From Levaquin] Adverse Reaction (Verified 07/10/17 18:02) Nausea oxycodone HCl [From Percocet] Adverse Reaction (Verified 07/10/17 18:02) Nausea Penicillins Adverse Reaction (Verified 07/10/17 18:02) Nausea/Vom/Diarrhea Home Medications: Ambulatory Orders Medication Instructions Recorded Acetaminophen [Tylenol] 2 tab PO Q6H PRN 05/12/17 Albuterol Aerosols [Ventolin 2.5 mg INHALATION Q2H PRN PRN 05/12/17 Aerosols] Atorvastatin Calcium [Lipitor] 40 mg PO QHS 05/12/17 Budesonide/Formoterol 160/4.5 2 puff INHALATION BID 05/12/17 [Symbicort 160/4.5 Mcg Inhaler (SP)] Bupropion HCl [Bupropion HCl Sr] 150 mg PO BID 05/12/17 Buspirone HCl 10 mg PO TID 05/12/17 Digoxin 250 mcg PO DAILY 05/12/17 Diltiazem [Cardizem] 120 mg PO BID 05/12/17 Docusate Sodium [Colace] 100 mg PO QHS 05/12/17 Famotidine [Pepcid] 20 mg PO BID 05/12/17 Furosemide [Lasix] 40 mg PO BID 05/12/17 Gabapentin [Neurontin] 100 mg PO TID 05/12/17 Glucagon,Human Recombinant 1 mg IJ PRN PRN 05/12/17 [Glucagon Emergency Kit] Guaifenesin [Mucinex] 1,200 mg PO BID 05/12/17 Insulin Glargine,Hum.rec.anlog 55 unit SQ QHS 05/12/17 [Basaglar Kwikpen U-100] Insulin Lispro [Humalog] 12 unit SQ TIDCM 05/12/17 Ipratropium/Albuterol Sulfate 3 ml INHALATION Q4H.RT 05/12/17 [Duoneb] Lisinopril [Prinivil] 5 mg PO DAILY 05/12/17 Mag Hydrox/Al Hydrox/Simeth 30 ml PO Q6H PRN 05/12/17 [Antacid Liquid] Polyethylene Glycol 3350 [Miralax] 17 gm PO DAILY 05/12/17 Potassium Chloride [K-Dur] 10 meq PO BID 05/12/17 Propranolol HCl [Inderal (Beta 10 mg PO BID 05/12/17 Rubén)] Rivaroxaban [Xarelto] 20 mg PO DAILY 05/12/17 Sennosides/Docusate Sodium 2 tab PO DAILY PRN 05/12/17 [Senna-Docusate Sodium Tablet] Past Medical History (Chronic Problems): Chronic Problems (Last Reviewed 05/20/17 @ 12:52 by Mary Ruiz) SOB (shortness of breath) (Chronic) Osteoporosis (Chronic) Hypersomnia (Chronic) Former smoker (Chronic) Quit in the fall 2016 Hypomagnesemia (Chronic) HTN (hypertension) (Chronic) Morbid obesity with BMI of 40.0-44.9, adult (Chronic) COPD (chronic obstructive pulmonary disease) (Chronic) Chronic pain (Chronic) Chronic atrial fibrillation (Chronic) Non-compliance (Chronic) withn follow up with pulmonary Chronic hypoxemic respiratory failure (Chronic) Cardiomyopathy (Chronic) EF in Oct 2015 45-50 Hyperlipemia (Chronic) Type 2 diabetes mellitus (Chronic) GERD (gastroesophageal reflux disease) (Chronic) Anxiety (Chronic) Insomnia (Chronic) Surgical History: hysterectomy, tonsillectomy, - - Lumbar surgery. Psychiatric History: Anxiety, Depression RUG CLEANER History: No pertinent RUG CLEANER history - *Family History Maternal Family History: Family History (Last Reviewed 05/20/17 @ 12:52 by Mary Ruiz) Sister Arthritis Diabetes Father Cancer Aunt Diabetes History Items: - - She reports that she is unaware of what her mother's health history was like Paternal Family History: Family History (Last Reviewed 05/20/17 @ 12:52 by Mary Ruiz) Sister Arthritis Diabetes Father Cancer Aunt Diabetes History Items: Cancer, - - father with throat cancer. Sibling Family History: Family History (Last Reviewed 05/20/17 @ 12:52 by Mary uRiz) Sister Arthritis Diabetes Father Cancer Aunt Diabetes History Items: Asthma, COPD, Hypertension Smoking Status: Never smoker Tobacco Use: Cigarettes Review of Systems - Review of Systems General: Denies: Fever, Night Sweats, Fatigue Cardiovascular: Reports: Shortness of Breath. Denies: Chest Discomfort, Orthopnea, PND, Peripheral Edema, Palpitations, Lightheadedness, Dizziness, Near Syncope, Syncope Respiratory: Denies: Cough, Sputum Production, Hemoptysis Gastrointestinal: Denies: Hematemesis, Hematochezia, Melena Genitourinary: Denies: Dysuria, Hematuria Skin: Denies: Rash Subjectve: This is a 61-year-old white female who appears to be resting comfortably at the moment in no acute distress. Objective: Vital Signs Temp Pulse Resp BP Pulse Ox 97.9 F 67 20 H 132/59 H 2 07/11/17 11:00 07/11/17 11:44 07/11/17 11:16 07/11/17 11:00 07/11/17 14:25 Oxygen Flow Rate (L/min) 3 Oxygen Delivery Method Nasal Cannula Weight: 210 lb 8.663 oz Body Mass Index (BMI) 39.7 Orthostatic Vital Signs Start: 07/11/17 00:21 Freq: q24h Status: Active Protocol: Activity Type Activity Date Activity User E-Sign Co-Sign Detail Recorded Client Recorded Date Recorded By Document 07/11/17 00:21 [facility] [id number] 07/11/17 00:23 [facility] 07/11/17 00:21 Orthostatic Vitals Standing -Blood Pressure (90/60-120/80 mm Hg) 108/62 -Extremity Use Right Arm -Pulse Rate (60-100 beats/min) 98 Sitting -Blood Pressure (90/60-120/80 mm Hg) 128/52 H -Extremity Use Right Arm -Pulse Rate (60-100 beats/min) 82 Lying -Blood Pressure (90/60-120/80 mm Hg) 115/47 L -Extremity Use Right Arm -Pulse Rate (60-100 beats/min) 70 Intake and Output for Last 24 Hours 07/09/17 07/10/17 07/11/17 23:59 23:59 23:59 Intake Total 1832 / 1832 Output Total 450 / 450 Balance 1382 / 1382 General: Awake, Alert, Oriented x 3, Cooperative, No Acute Distress, Obese HEENT: Atraumatic, Normocephalic, PERRL, EOMI, Sclera Non Icteric Oral: Moist Mucosa Neck: Supple, Good ROM, No JVD Lungs: Rhonchi, Inspiratory Wheezes - [place], Expiratory Wheezes-[place]rike Cardiovascular: Irregular Rhythm, Normal S1, Normal S2 Vascular: No Carotid Bruits Abdomen: Bowel Sounds Present, Soft, Non Tender Extremities: No Cyanosis, No Clubbing, No edema 07/10/17 23:15: Troponin I < 0.015 07/11/17 01:37: Troponin I < 0.015 07/11/17 05:10: B-Natriuretic Peptide 38.2 07/11/17 05:10: D-Dimer Quant (PE/DVT) < 0.27 L 07/11/17 05:10: Total Bilirubin 0.30, Direct Bilirubin 0.08, Triglycerides 242 H , Cholesterol 120, LDL Cholesterol 37, VLDL Cholesterol 48 H, HDL Cholesterol 35 L 07/11/17 05:10: Digoxin 0.97 05/26/18 05:10: Troponin I < 0.015 07/11/17 05:10: Magnesium 1.8 07/11/17 12:25: Urine Color Yellow, Urine Clarity Clear, Urine pH 6.0, Ur Specific [place] 1.015, Urine Protein 15 H, Urine Glucose (UA) 100 H, Urine Ketones Negative, Urine Occult Blood Negative, Urine Nitrite Negative, Urine Bilirubin Negative, Urine Urobilinogen Normal, Ur Leukocyte Esterase 25 H, Urine RBC 0 SEEN, Urine WBC 0-5 SEEN Rhythm: Atrial fibrillation EKG: As noted above ECHO: As noted above Stress Test: As noted above CXR: Preliminary evaluation: No acute cardiopulmonary disease process: Please see official report Assessment/Plan 1. Syncope The patient reportedly had a syncopal event. She seems to be unclear of any obvious symptoms prior to or following her event. She is unclear as to how long she reportedly was unconscious. She has been undergoing cardiovascular evaluation. She has remained in atrial fibrillation which appears to be chronic/permanent for her. There is been no objective evidence of acute coronary syndrome by cardiac enzyme , etc. She recently underwent noninvasive evaluation as noted above with no definitive findings of diminished LV systolic function, hemodynamically significant valvular heart disease, or evidence of myocardial ischemia to suggest underlying CAD. Thus it is unclear as to whether or not this event, after happening outside, was related to concerns of possible decreased intravascular volume, orthostasis type changes, or some other underlying cardiovascular issues such as a cardiac dysrhythmia that has yet to be defined. She is being evaluated for any other obvious etiologies based upon her other conditions as well. At the present time she will continue to be monitored. She will continue evaluation care of her other conditions. Consideration will be given as to how to proceed, if there is no other obvious etiology, with respect further diagnostic studies. This may include future outpatient ambulatory event monitoring and/or implantable loop recorder, etc. 2. Atrial fibrillation The patient does have a history of underlying atrial fibrillation. She has been on rate control therapy and anticoagulant therapy. Her rate and rhythm will be monitored. 3. Hyperlipidemia The patient will continue evaluation care as deemed appropriate. 4. Hypertension The patient's blood pressure will be monitored for any obvious etiologies and explain her event. Her medications can be adjusted as needed. 5. Diabetes mellitus The patient should be evaluated for any obvious metabolic disturbances that would explain her event as well. 6. COPD The patient can be evaluated for underlying pulmonary disease process. Is unclear whether or not she could have developed hypoxia that may explain her process as well. 7. Morbid obesity Portion of the patient remains markedly overweight. She has been counseled in the past on dietary therapy and activity to try and bring her weight under better control. This note was generated with [employer] dictation software. It may contain incorrect words, spelling, and punctuation that were not noted in checking the note before signing.
[2017-07-11 17:36] LABS: Bedside Glucose 302 mg/dL (70-110)
[2017-07-11] MEDS: Atorvastatin Calcium 40 MG Tablet PO (21:10)
[2017-07-11] MEDS: 0.9% NaCl Peripheral Flush Adult/Peds IV (21:11)
[2017-07-11 21:31] LABS: Bedside Glucose 387 mg/dL (70-110)
[2017-07-12] VITALS (13 sets, daily range): BP systolic 99–143; BP diastolic 51–65; PULSE 59–78; RESP 16–20; TEMP 36.5–37.1; O2SAT 95–98
[2017-07-12] MEDS: 0.9% Normal Saline 1,000 ML 150 ML IV ×2 (01:18→08:50)
[2017-07-12] MEDS: Gabapentin 100 MG Capsule PO ×2 (05:42→16:24)
[2017-07-12] MEDS: busPIRone 5 MG Tablet 10 MG PO ×2 (05:42→16:23)
[2017-07-12] MEDS: Acetaminophen 325 MG Tablet 650 MG PO ×2 (05:47→11:47)
[2017-07-12] MEDS: 0.9% NaCl Peripheral Flush Adult/Peds IV (05:48)
[2017-07-12 06:55] LABS: Bedside Glucose 291 mg/dL (70-110)
[2017-07-12 06:58] LABS: Hematocrit 30.6 % (37-47); Hemoglobin 9.9 g/dl (12.0-15.0); Mean Corp Hgb Conc 32.4 g/gl (32-36); Mean Corpuscular Hgb 25.7 pg (27.0-32.0); Mean Corpuscular Volume 79.5 fL (81-99); Mean Platelet Vol. 11.4 fl (6.2-12.0); Platelet Count 284 K/mm3 (150-450); RBC Distribution Width CV 15.9 % (11.6-14.6); RBC Distribution Width SD 45.5 fl (35.1-43.9); Red Blood Count 3.85 M/mm3 (4.2-5.4)
[2017-07-12] MEDS: Budesonide Respules 0.5 MG/2 ML AMPUL.NEB. INHALATION (07:08)
[2017-07-12] MEDS: Ipratropium/Albuterol Sulfate 3 ML AMPUL.NEB INHALATION ×3 (07:08→15:05)
[2017-07-12 07:13] LABS: Scan Indicated on CBC? Y/N NO
[2017-07-12 07:29] LABS: Anion Gap 10 (5-15); BUN 6 mg/dL (7-18); BUN/Creat Ratio 10.2 RATIO (10-20); Calcium,Total 8.3 mg/dL (8.5-10.1); Chloride 105 mmol/L (98-107); Creatinine, Serum 0.59 mg/dL (0.55-1.02); EST Glomerular Filtration Rate 110 mL/min (>60); Est Glom Filt Rate - Afr Amer 133 mL/min (>60); Estimated Creatinine Clearance 75.56 ml/min; Glucose 272 mg/dL (74-106); Potassium 4.3 mmol/L (3.5-5.1); Sodium Level 134 mmol/L (136-145)
[2017-07-12] MEDS: dilTIAZem 60 MG Tablet 120 MG PO (08:52)
[2017-07-12] MEDS: Propranolol 10 MG Tablet PO (08:52)
[2017-07-12] MEDS: guaiFENesin 600 MG Tablet 1200 MG PO (08:53)
[2017-07-12] MEDS: Digoxin 250 MCG Tablet PO (08:53)
[2017-07-12] MEDS: Famotidine 20 MG Tablet PO (08:54)
[2017-07-12] MEDS: buPROPion (SR) 150 MG Tablet.SA PO (08:54)
[2017-07-12] MEDS: Rivaroxaban 20 MG Tablet PO (08:54)
[2017-07-12] MEDS: Lisinopril 5 MG Tablet PO (08:54)
[2017-07-12] MEDS: Glucerna Shake 120 ML LIQUID PO ×3 (08:57→16:30)
--- NOTE | 2017-07-12 10:33 | PCM.DC ---
- Discharge Diagnoses Current Active Problems: Current Active and Chronic Problems (Last Reviewed 05/20/17 @ 12:52 by Mary Ruiz) Syncope (Acute) Chest pain (Acute) You will use the following diet at home:: Calorie/Carbohydrate Controlled (specify 1200, 1400, etc), Cardiac Discharge Activity: Return to Normal Activity Call your doctor if you observe: Shortness of breath, Dizziness, Fainting spells, Chest pain, Increased palpitations (irregular heartbeat) Allergies/Adverse Reactions: Allergies venom-honey bee [bee venom (honey bee)] Allergy (Verified 07/10/17 18:02) Swelling levofloxacin [From Levaquin] Adverse Reaction (Verified 07/10/17 18:02) Nausea oxycodone HCl [From Percocet] Adverse Reaction (Verified 07/10/17 18:02) Nausea Penicillins Adverse Reaction (Verified 07/10/17 18:02) Nausea/Vom/Diarrhea Medications to take at Discharge Acetaminophen [Tylenol] 2 tab PO Q6H PRN 05/12/17 Albuterol Aerosols [Ventolin Aerosols] 2.5 mg INHALATION Q2H PRN PRN 05/12/17 Atorvastatin Calcium [Lipitor] 40 mg PO QHS 05/12/17 Budesonide/Formoterol 160/4.5 [Symbicort 160/4.5 Mcg Inhaler (SP)] 2 puff INHALATION BID 05/12/17 Bupropion HCl [Bupropion HCl Sr] 150 mg PO BID 05/12/17 Buspirone HCl 10 mg PO TID 05/12/17 Digoxin 250 mcg PO DAILY 05/12/17 Diltiazem [Cardizem] 120 mg PO BID 05/12/17 Docusate Sodium [Colace] 100 mg PO QHS 05/12/17 Famotidine [Pepcid] 20 mg PO BID 05/12/17 Furosemide [Lasix] 40 mg PO BID 05/12/17 Gabapentin [Neurontin] 100 mg PO TID 05/12/17 Glucagon,Human Recombinant [Glucagon Emergency Kit] 1 mg IJ PRN PRN 05/12/17 Guaifenesin [Mucinex] 1,200 mg PO BID 05/12/17 Insulin Glargine,Hum.rec.anlog [Basaglar Kwikpen U-100] 55 unit SQ QHS 05/12/17 Insulin Lispro [Humalog] 12 unit SQ TIDCM 05/12/17 Ipratropium/Albuterol Sulfate [Duoneb] 3 ml INHALATION Q4H.RT 05/12/17 Lisinopril [Prinivil] 5 mg PO DAILY 05/12/17 Mag Hydrox/Al Hydrox/Simeth [Antacid Liquid] 30 ml PO Q6H PRN 05/12/17 Polyethylene Glycol 3350 [Miralax] 17 gm PO DAILY 05/12/17 Potassium Chloride [K-Dur] 10 meq PO BID 05/12/17 Propranolol HCl [Inderal (Beta Rubén)] 10 mg PO BID 05/12/17 Rivaroxaban [Xarelto] 20 mg PO DAILY 05/12/17 Sennosides/Docusate Sodium [Senna-Docusate Sodium Tablet] 2 tab PO DAILY PRN 05/12/17 Prednisone See Taper PO DAILY #30 tab 07/12/17 The following prescriptions were given: Prednisone See Taper PO DAILY #30 tab Orders to be completed after discharge: 30-Day Event Recorder [[facility]] Time Frame: 2 Days, Location: None Selected Primary Care Physician: Camden Burger [Primary Care Provider] - Please follow up with your Primary Care Physician in: 1 Week Please Follow Up With: Camden Mccormick MD When: 4-6 Following event monitor Proposed Discharge Date: 07/12/17
--- NOTE | 2017-07-12 10:37 | DCINST_ITS ---
- Discharge Diagnoses Current Active Problems: Current Active and Chronic Problems (Last Reviewed 05/20/17 @ 12:52 by Mary Ruiz) Syncope (Acute) Chest pain (Acute) You will use the following diet at home:: Calorie/Carbohydrate Controlled ( specify 1200, 1400, etc), Cardiac Discharge Activity: Return to Normal Activity Call your doctor if you observe: Shortness of breath, Dizziness, Fainting spells , Chest pain, Increased palpitations (irregular heartbeat) Allergies/Adverse Reactions: Allergies venom-honey bee [bee venom (honey bee)] Allergy (Verified 07/10/17 18:02) Swelling levofloxacin [From Levaquin] Adverse Reaction (Verified 07/10/17 18:02) Nausea oxycodone HCl [From Percocet] Adverse Reaction (Verified 07/10/17 18:02) Nausea Penicillins Adverse Reaction (Verified 07/10/17 18:02) Nausea/Vom/Diarrhea Medications to take at Discharge Acetaminophen [Tylenol] 2 tab PO Q6H PRN 05/12/17 Albuterol Aerosols [Ventolin Aerosols] 2.5 mg INHALATION Q2H PRN PRN 05/12/17 Atorvastatin Calcium [Lipitor] 40 mg PO QHS 05/12/17 Budesonide/Formoterol 160/4.5 [Symbicort 160/4.5 Mcg Inhaler (SP)] 2 puff INHALATION BID 05/12/17 Bupropion HCl [Bupropion HCl Sr] 150 mg PO BID 05/12/17 Buspirone HCl 10 mg PO TID 05/12/17 Digoxin 250 mcg PO DAILY 05/12/17 Diltiazem [Cardizem] 120 mg PO BID 05/12/17 Docusate Sodium [Colace] 100 mg PO QHS 05/12/17 Famotidine [Pepcid] 20 mg PO BID 05/12/17 Furosemide [Lasix] 40 mg PO BID 05/12/17 Gabapentin [Neurontin] 100 mg PO TID 05/12/17 Glucagon,Human Recombinant [Glucagon Emergency Kit] 1 mg IJ PRN PRN 05/12/17 Guaifenesin [Mucinex] 1,200 mg PO BID 05/12/17 Insulin Glargine,Hum.rec.anlog [Basaglar Kwikpen U-100] 55 unit SQ QHS 05/12/17 Insulin Lispro [Humalog] 12 unit SQ TIDCM 05/12/17 Ipratropium/Albuterol Sulfate [Duoneb] 3 ml INHALATION Q4H.RT 05/12/17 Lisinopril [Prinivil] 5 mg PO DAILY 05/12/17 Mag Hydrox/Al Hydrox/Simeth [Antacid Liquid] 30 ml PO Q6H PRN 05/12/17 Polyethylene Glycol 3350 [Miralax] 17 gm PO DAILY 05/12/17 Potassium Chloride [K-Dur] 10 meq PO BID 05/12/17 Propranolol HCl [Inderal (Beta Rubén)] 10 mg PO BID 05/12/17 Rivaroxaban [Xarelto] 20 mg PO DAILY 05/12/17 Sennosides/Docusate Sodium [Senna-Docusate Sodium Tablet] 2 tab PO DAILY PRN Prednisone See Taper PO DAILY #30 tab 07/12/17 The following prescriptions were given: Prednisone See Taper PO DAILY #30 tab Orders to be completed after discharge: 30-Day Event Recorder [[facility]] Time Frame: 2 Days, Location: None Selected Primary Care Physician: Camden Burger [Primary Care Provider] - Please follow up with your Primary Care Physician in: 1 Week Please Follow Up With: Camden Mccormick MD When: 4-6 Following event monitor Proposed Discharge Date: 07/12/17
--- NOTE | 2017-07-12 10:38 | PCM.DC.SUM ---
Discharge Date and Diagnosis Date of Admission: 07/10/17 Date of Discharge: 07/12/17 - Primary Discharge Diagnosis Active and Suspected Problems (Last Reviewed 05/20/17 @ 12:52 by Mary Ruiz) 1. Syncope 2. Acute on chronic COPD exacerbation with chronic hypoxic respiratory failure - Secondary Discharge Diagnosis Chronic Problems (Last Reviewed 05/20/17 @ 12:52 by Mary Ruiz) SOB (shortness of breath) (Chronic) Osteoporosis (Chronic) Hypersomnia (Chronic) Former smoker (Chronic) Quit in the fall 2016 Hypomagnesemia (Chronic) HTN (hypertension) (Chronic) Morbid obesity with BMI of 40.0-44.9, adult (Chronic) COPD (chronic obstructive pulmonary disease) (Chronic) Chronic pain (Chronic) Chronic atrial fibrillation (Chronic) Non-compliance (Chronic) withn follow up with pulmonary Chronic hypoxemic respiratory failure (Chronic) Cardiomyopathy (Chronic) EF in Oct 2015 45-50 Hyperlipemia (Chronic) Type 2 diabetes mellitus (Chronic) GERD (gastroesophageal reflux disease) (Chronic) Anxiety (Chronic) Insomnia (Chronic) Hospital Course and Treatment Imaging Results: Diagnostic Data Chest X-Ray 07/10/17 18:37 IMPRESSION: No acute cardiopulmonary pathology Electronically Signed: Moses Diamond MD at 19:08 EDT , Service support , Dr. Mccormick-cardiology. Operations: None Procedures: 2-D Echocardiogram Summary of Care Provided: Patient is a 61-year-old female admitted 07/10/2017 due to syncope. She has a past medical history of COPD, chronic atrial fibrillation, hypertension, type 2 diabetes mellitus, hyperlipidemia, GERD, anxiety, chronic hypoxic respiratory failure, obesity, cardiomyopathy. 1. Syncope-troponin negative. Stress test May 13, 2017 negative for ischemia. Echocardiogram 05/13/2017 showed an EF of 65%, mild aortic stenosis. EKG on admission showed new anterior lateral ST depression. Cardiology consulted. Repeat echo showed an EF of 75%. TSH within normal limits. Urinalysis unremarkable. Orthostatic vitals negative. Patient will be discharged with 30 day event monitor. Follow-up with cardiology in 4-6 weeks following event monitor completion. 2. Acute COPD exacerbation on chronic severe COPD with chronic hypoxic respiratory failure-continue home inhaler regimen. Continue supplement oxygen to maintain O2 at or above 90%. Prednisone taper at discharge. 3. Chronic atrial fibrillation-rate controlled. Continue Cardizem, propanolol, Xarelto. 4. Type 2 diabetes mellitus-continue home insulin regimen. 5. Hypertension-stable, continue home Cardizem, Lasix, lisinopril, propanolol, digoxin regimen. 6. Hyperlipidemia-continue statin. 7. History of mild cardiomyopathy-ejection fraction of 45-50%. 8. GERD-continue home famotidine regimen. 9. Anxiety-continue home buspirone, bupropion regimen. 10. Obesity-encouraged diet and lifestyle modifications. General: Alert, Oriented x3, Cooperative, No apparent distress HEENT: Atraumatic, PERRLA, EOMI, Normocephalic Oral: Moist Mucosa Neck: Supple, No JVD, Negative Carotid Bruits Lungs: Diminished, Wheezes Cardiovascular: Regular rate, Normal S1, Normal S2, No murmurs, - - A.fib. Abdomen: Bowel Sounds Present, Soft, Non Tender, Non-Distended Extremities: No clubbing, No cyanosis, No edema, Capillary Refill Less than 3 Seconds Skin: No rashes, No breakdown Musculoskeletal: No Tenderness to Palpation of Joints or Extremities Neurological: Cranial nerves II-XII grossly intact, Neuro grossly intact Psych/Mental Status: Normal Affect, Appropriate Patient seen and examined prior to discharge. Physical assessment as noted above. Patient stable for discharge to assisted living facility. She will need to return for a 30 day event monitor placement. Follow-up with primary care physician in 1 week and cardiology in 4-6 weeks. This patient was seen by FRANKLIN Cardenas under the supervision of Dr. Esposito. Discharge Diet: Low fat/ Low Cholesterol, Carb Control Diet Discharge Activity: Return to Normal Activity Call your doctor if you observe: Shortness of breath, Dizziness, Fainting spells, Chest pain, Increased palpitations (irregular heartbeat) Home Medications: Medications to take at Discharge Acetaminophen [Tylenol] 2 tab PO Q6H PRN 05/12/17 Albuterol Aerosols [Ventolin Aerosols] 2.5 mg INHALATION Q2H PRN PRN 05/12/17 Atorvastatin Calcium [Lipitor] 40 mg PO QHS 05/12/17 Budesonide/Formoterol 160/4.5 [Symbicort 160/4.5 Mcg Inhaler (SP)] 2 puff INHALATION BID 05/12/17 Bupropion HCl [Bupropion HCl Sr] 150 mg PO BID 05/12/17 Buspirone HCl 10 mg PO TID 05/12/17 Digoxin 250 mcg PO DAILY 05/12/17 Diltiazem [Cardizem] 120 mg PO BID 05/12/17 Docusate Sodium [Colace] 100 mg PO QHS 05/12/17 Famotidine [Pepcid] 20 mg PO BID 05/12/17 Furosemide [Lasix] 40 mg PO BID 05/12/17 Gabapentin [Neurontin] 100 mg PO TID 05/12/17 Glucagon,Human Recombinant [Glucagon Emergency Kit] 1 mg IJ PRN PRN 05/12/17 Guaifenesin [Mucinex] 1,200 mg PO BID 05/12/17 Insulin Glargine,Hum.rec.anlog [Basaglar Kwikpen U-100] 55 unit SQ QHS 05/12/17 Insulin Lispro [Humalog] 12 unit SQ TIDCM 05/12/17 Ipratropium/Albuterol Sulfate [Duoneb] 3 ml INHALATION Q4H.RT 05/12/17 Lisinopril [Prinivil] 5 mg PO DAILY 05/12/17 Mag Hydrox/Al Hydrox/Simeth [Antacid Liquid] 30 ml PO Q6H PRN 05/12/17 Polyethylene Glycol 3350 [Miralax] 17 gm PO DAILY 05/12/17 Potassium Chloride [K-Dur] 10 meq PO BID 05/12/17 Propranolol HCl [Inderal (Beta Rubén)] 10 mg PO BID 05/12/17 Rivaroxaban [Xarelto] 20 mg PO DAILY 05/12/17 Sennosides/Docusate Sodium [Senna-Docusate Sodium Tablet] 2 tab PO DAILY PRN 05/12/17 Prednisone See Taper PO DAILY #30 tab 07/12/17 Following Prescrptions Were Given to Patient: Prednisone See Taper PO DAILY #30 tab Other Amb Orders: 30-Day Event Recorder [[facility]] Time Frame: 2 Days, Location: None Selected Primary Care Physician: Camden Burger [Primary Care Provider] - Please follow up with your Primary Care Physician in: 1 Week Please Follow Up With: Camden Mccormick MD When: 4-6 Following event monitor Disposition: [facility] Living/Non-[facility] Minutes spent on discharge:: 35 Patient Condition:: Stable Medical Necessity - Tobacco Use Smoking Status: Never smoker Tobacco Use: Cigarettes Meaningful Use Info Meaningful Use Diagnoses (Choose all that apply): None applicable
--- NOTE | 2017-07-12 14:58 | CM.UR ---
Addendum entered by Sobia Meneses 07/12/17 15:53: Attempted to speak with patient however she was unable to tell me how to get a hold of anyone at [facility]. Attempted to call [facility] again however no answer. Left another voicemail with how to get a hold of the unit to arrange transport home. Also attempted to call the sister's phone however not able to leave a vm. Wesley Meneses RN, CCM. Original Note: Attempted to meet with patient face to face yesterday but she refused due to she was eating lunch. Unable to return later. Was alerted by Rita (2:02pm) that patient was discharged and they had left vm earlier today at facility stating she was being discharged and they wanted to talk to them. No return call of time she called me. I also left at main number: [phone] explaining we had patient discharging and returning to facility today. Requesting a return call to the nurses station at ext. [phone]. I also called number: [phone], number that was documented previously by another staff member, explaining we had a patient ready to return to facility. Again left ext to [facility] nurses station requesting a return call. Also left a message on Sister's cell phone number under demographics explaining patient to be discharge and looking to send back to facility. Left the [facility] nurse's station ext. As of this time received call from Rita stating that she has received no return phone calls. Wesley Meneses RN, CCM.
[2017-07-12 16:11] LABS: Bedside Glucose 419 mg/dL (70-110)
[2017-07-12 16:15] LABS: Bedside Glucose 365 mg/dL (70-110)
[2017-07-12] MEDS: predniSONE 20 MG Tablet 40 MG PO (18:12)
== END 2017-07-12 18:15 | disposition home or self-care (01) | DRG 141 ==
LOC: ED 18:43 → PCU 22:28
PROVIDERS: Nurse Practitioner Family; Admitting Provider Internal Medicine; Emergency Provider Emergency Medicine; Family Provider Family Medicine; PCP Family Medicine; Visit Provider Family Medicine
DX: R55 Syncope and collapse (principal); J44.1 Chronic obstructive pulmonary disease with (acute) exacerbation; J96.11 Chronic respiratory failure with hypoxia; I48.1 Persistent atrial fibrillation; I42.9 Cardiomyopathy, unspecified; I48.2 Chronic atrial fibrillation; I47.1 Supraventricular tachycardia; J96.12 Chronic respiratory failure with hypercapnia; I25.10 Atherosclerotic heart disease of native coronary artery without angina pectoris; I10 Essential (primary) hypertension; E78.5 Hyperlipidemia, unspecified; E11.9 Type 2 diabetes mellitus without complications; K21.9 Gastro-esophageal reflux disease without esophagitis; F32.9 Major depressive disorder, single episode, unspecified; F41.9 Anxiety disorder, unspecified; E66.01 Morbid (severe) obesity due to excess calories; Z68.41 Body mass index [BMI] 40.0-44.9, adult; M81.0 Age-related osteoporosis without current pathological fracture; I25.2 Old myocardial infarction; G47.10 Hypersomnia, unspecified; E83.42 Hypomagnesemia; H53.431 Sector or arcuate defects, right eye; G89.29 Other chronic pain; Z87.891 Personal history of nicotine dependence; Z91.19 Patient's noncompliance with other medical treatment and regimen; Z79.82 Long term (current) use of aspirin; Z79.01 Long term (current) use of anticoagulants; Z79.4 Long term (current) use of insulin; Z99.81 Dependence on supplemental oxygen; Z79.899 Other long term (current) drug therapy; Z66 Do not resuscitate
CPT/HCPCS: 36415; 70551; 71045; 80048; 80061; 80076; 80162; 81001; 82962; 83735; 83880; 84443; 84484; 85025; 85027; 85379; 93005; 93306; 94640; 97162; 97166; 97802; 99285; J7030; Q9957; A4216

== ENCOUNTER 2017-08-10 19:18 | Inpatient (IN) | payer MEDICAID, SELFPAY ==
[2017-08-10] VITALS (7 sets, daily range): BP systolic 109–140; BP diastolic 54–95; PULSE 59–70; RESP 13–20; TEMP 36.5–36.6; O2SAT 93–96; BMI 40.6; BMI 39.4; BMI 39.5
--- NOTE | 2017-08-10 19:24 | ED.RN ---
CALLED FOR EKG PER RN REQUEST, PULLED OLD EKG'S FOR
--- NOTE | 2017-08-10 19:29 | EKG12_ITS ---
Test Reason : CP Blood Pressure : / mmHG Vent. Rate : 069 BPM Atrial Rate : 084 BPM P-R Int : 000 ms QRS Dur : 096 ms QT Int : 388 ms P-R-T Axes : 000 063 -52 degrees QTc Int : [address] & T wave abnormality, consider inferior ischemia Abnormal ECG Confirmed by ELSY DELGADO, LUCILA ([id number]), editorial intern ANGE LIN ([id number]) on 08/14/2017 8:30:56 AM Referred By: ERNESTINE Confirmed By:LUCILA CHIN MD
--- NOTE | 2017-08-10 19:34 | RAD_ITS ---
STUDY: X-RAY CHEST REASON FOR EXAM: Female, 62 years old. Chest pain. Shortness of breath. TECHNIQUE: Single AP portable view of the chest. COMPARISON: July 10, 2017. FINDINGS: The lungs are clear and expanded. Stable granulomatous calcifications. There is no demonstrated pleural abnormality. Normal size heart. Normal mediastinum and sangeeta. Normal visualized pulmonary arteries. Normal visualized aortic arch and descending thoracic aorta. Normal visualized thoracic spine. Normal visualized ribs, clavicles, and shoulders. There is no demonstrated abnormality of the visualized soft tissue structures of the upper abdomen. RAD/Chest 1 View (Portable) IMPRESSION: Degenerative changes, as described above. No demonstrated acute cardiopulmonary process. Electronically Signed: Danny Hale MD at 20:18 EDT , Service support ,
--- NOTE | 2017-08-10 19:34 | ED.VISSUMM ---
- ER Visit Summary Date of Service: 08/10/17 Chief Complaint: Chest pain and shortness of breath History of Present Illness: The patient is a 62 F with chest pain and shortness of breath. Symptoms started gradually throughout today. This is treated with a dry cough. The patient has a history of COPD. She does not wear home oxygen. She also has a history of atrial fibrillation and takes Xarelto. 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 She denies any history of coronary disease. She does report a history of DVT, but denies PE. She denies any leg swelling. Physical Examination: Vital signs are unremarkable. Afebrile. 93% on 2 L. Patient has normal skin without diaphoresis or pallor. Heart is irregularly irregular. Lungs show diffuse wheezing throughout all hoang. Abdomen soft and nontender. Extremities nontender with no edema. Test Results: EKG shows atrial fibrillation at a rate of 69. No sign of acute infarction pattern. She does have some nonspecific ST and T-wave changes. Laboratory studies and x-ray pending. Emergency Department Course and Treatment: Patient placed on a monitor. We will treat with aspirin, Solu-Medrol, and a DuoNeb. Will reassess. On reevaluation, she has continued chest pain or shortness of breath. Her workup is all fairly unremarkable. Troponin and BNP normal. EKG showed A. fib at a rate of 69. No acute ischemia or infarction. Chest x-ray showed chronic changes. Patient was discussed with the hospitalist and will be admitted. Treatment Plan: As above Disposition: Admission Impression: 1. Chest pain 2. COPD This note was generated with [employer] software. It may contain incorrect words, spelling, and punctuation that were not noted in review of the chart prior to signing ED Disposition - Plan for ED Patient: Chief Complaint: Chest Pain Referrals: Camden Burger [Primary Care Provider] -
[2017-08-10] MEDS: Ipratropium/Albuterol Sulfate 3 ML AMPUL.NEB INHALATION ×2 (19:43→21:42)
[2017-08-10 19:56] LABS: Absolute Lymphocyte Count 2.94 X10^3/ul (0.83-4.51); Absolute Neutrophil Count 7.6 X10^3/uL (2.0-7.7); Basophil# 0.03 X10^3/uL; Basophil% 0.2 % (0-1); Eosinophils% 4.1 % (0-5); Hematocrit 34.9 % (37-47); Hemoglobin 10.9 g/dl (12.0-15.0); Lymphocyte # 2.94 X10^3/ul (4.0); Lymphocyte % 24.3 % (19-41); Mean Corp Hgb Conc 31.2 g/gl (32-36); Mean Corpuscular Hgb 25.3 pg (27.0-32.0); Mean Corpuscular Volume 81.2 fL (81-99); Mean Platelet Vol. 10.6 fl (6.2-12.0); Monocyte# 1.02 X10^3/uL; Monocyte% 8.4 % (0-10); Neutrophil # 7.58 X10^3/uL (2.7-7.7); Neutrophil % 62.8 % (47-70); POSITIVE COUNT NO; POSITIVE DIFFERENTIAL NO; POSITIVE MORPHOLOGY NO; Platelet Count 309 K/mm3 (150-450); RBC Distribution Width CV 18.1 % (11.6-14.6); RBC Distribution Width SD 54.1 fl (35.1-43.9); White Blood Count 12.1 K/mm3 (4.4-11.0)
[2017-08-10 20:14] LABS: Anion Gap 6 (5-15); BUN 12 mg/dL (7-18); Calcium,Total 8.7 mg/dL (8.5-10.1); Chloride 103 mmol/L (98-107); Creatinine, Serum 0.92 mg/dL (0.55-1.02); EST Glomerular Filtration Rate 66 mL/min (>60); Est Glom Filt Rate - Afr Amer 79 mL/min (>60); Estimated Creatinine Clearance 47.84 ml/min; Glucose 235 mg/dL (74-106); Potassium 4.4 mmol/L (3.5-5.1); Sodium Level 137 mmol/L (136-145)
[2017-08-10 20:31] LABS: BNP,B-Type NATRIURETIC PEPTIDE 39.9 pg/mL (0-100)
[2017-08-10 20:35] LABS: Digoxin Level 1.43 ng/mL (0.80-2.00)
[2017-08-10] MEDS: MethylPREDNISolone 125 MG/2 ML Vial IV (20:52)
--- NOTE | 2017-08-10 21:52 | HP.PCM_ITS ---
Problem List (1) Chest pain Status: Acute Qualifiers: Chest pain type: unspecified Qualified Code(s): R07.9 - Chest pain, unspecified (2) SOB (shortness of breath) Status: Acute (3) Former smoker Status: Chronic Comment: Quit in the fall 2016 (4) HTN (hypertension) Status: Chronic Qualifiers: (5) COPD (chronic obstructive pulmonary disease) Status: Acute Qualifiers: COPD type: unspecified COPD (6) Chronic atrial fibrillation Status: Chronic (7) Non-compliance Status: Chronic Comment: withn follow up with pulmonary History of Present Illness Date of Admission: 08/10/17 Chief Complaint: chest pain and shortness of breath The patient is a 62 year old female with a history of COPD presents to the ER from assisted living with complaint of shortness of breath and chest pain. She received a NORCO at the assisted living that helped reduce her chest pain but she is more sleepy now. She denies chest pain to me at present. She has had worsening shortness of breath throughout the day. She went to go get an aerosol treatment when she felt worsening shortness of breath with chest pain that prompted her trip to the ED. No fevers or chills. She had a negative cardiac stress test this year. She will be admitted for COPD exacerbation. Past Medical History Past Medical History (Chronic Problems): Chronic Problems (Last Reviewed 05/20/17 @ 12:52 by Mary Ruiz) Osteoporosis (Chronic) Hypersomnia (Chronic) Former smoker (Chronic) Quit in the fall 2016 Hypomagnesemia (Chronic) HTN (hypertension) (Chronic) Morbid obesity with BMI of 40.0-44.9, adult (Chronic) Chronic pain (Chronic) Chronic atrial fibrillation (Chronic) Non-compliance (Chronic) withn follow up with pulmonary Chronic hypoxemic respiratory failure (Chronic) Cardiomyopathy (Chronic) EF in Oct 2015 45-50 Hyperlipemia (Chronic) Type 2 diabetes mellitus (Chronic) GERD (gastroesophageal reflux disease) (Chronic) Anxiety (Chronic) Insomnia (Chronic) Medical History: Medical History (Last Reviewed 05/20/17 @ 12:52 by Mary Ruiz) SOB (shortness of breath) (Chronic) R06.02 Left ankle pain (Acute) M25.572 Osteoporosis (Chronic) M81.0 Hypersomnia (Chronic) G47.10 Chest pain (Acute) R07.9 Anemia (Acute) D64.9 Pneumonia (Ruled-out) J18.9 Former smoker (Chronic) Z87.891 Quit in the fall 2016 Hypomagnesemia (Chronic) E83.42 HTN (hypertension) (Chronic) I10 Morbid obesity with BMI of 40.0-44.9, adult (Chronic) E66.01, Z68.41 COPD (chronic obstructive pulmonary disease) (Chronic) J44.9 Chronic pain (Chronic) G89.29 Chronic atrial fibrillation (Chronic) I48.2 Non-compliance (Chronic) Z91.19 withn follow up with pulmonary Chronic hypoxemic respiratory failure (Chronic) J96.11 Cardiomyopathy (Chronic) I42.9 EF in Oct 2015 45-50 Hyperlipemia (Chronic) E78.5 Type 2 diabetes mellitus (Chronic) E11.9 GERD (gastroesophageal reflux disease) (Chronic) K21.9 Anxiety (Chronic) F41.9 Insomnia (Chronic) G47.00 Allergies venom-honey bee [bee venom (honey bee)] Allergy (Verified 07/10/17 18:02) Swelling levofloxacin [From Levaquin] Adverse Reaction (Verified 07/10/17 18:02) Nausea oxycodone HCl [From Percocet] Adverse Reaction (Verified 07/10/17 18:02) Nausea Penicillins Adverse Reaction (Verified 07/10/17 18:02) Nausea/Vom/Diarrhea Home Medications: Ambulatory Orders Medication Instructions Recorded Acetaminophen [Tylenol] 2 tab PO Q6H PRN 05/12/17 Albuterol Aerosols [Ventolin 2.5 mg INHALATION Q2H PRN PRN 05/12/17 Aerosols] Atorvastatin Calcium [Lipitor] 40 mg PO QHS 05/12/17 Budesonide/Formoterol 160/4.5 2 puff INHALATION BID 05/12/17 [Symbicort 160/4.5 Mcg Inhaler (SP)] Bupropion HCl [Bupropion HCl Sr] 150 mg PO BID 05/12/17 Buspirone HCl 10 mg PO TID 05/12/17 Digoxin 250 mcg PO DAILY 05/12/17 Diltiazem [Cardizem] 120 mg PO BID 05/12/17 Docusate Sodium [Colace] 100 mg PO QHS 05/12/17 Famotidine [Pepcid] 20 mg PO BID 05/12/17 Furosemide [Lasix] 40 mg PO BID 05/12/17 Gabapentin [Neurontin] 100 mg PO TID 05/12/17 Glucagon,Human Recombinant 1 mg IJ PRN PRN 05/12/17 [Glucagon Emergency Kit] Guaifenesin [Mucinex] 1,200 mg PO BID 05/12/17 Insulin Glargine,Hum.rec.anlog 55 unit SQ QHS 05/12/17 [Basaglar Kwikpen U-100] Insulin Lispro [Humalog] 12 unit SQ TIDCM 05/12/17 Ipratropium/Albuterol Sulfate 3 ml INHALATION Q4H.RT 05/12/17 [Duoneb] Lisinopril [Prinivil] 5 mg PO DAILY 05/12/17 Mag Hydrox/Al Hydrox/Simeth 30 ml PO Q6H PRN 05/12/17 [Antacid Liquid] Polyethylene Glycol 3350 [Miralax] 17 gm PO DAILY 05/12/17 Potassium Chloride [K-Dur] 10 meq PO BID 05/12/17 Propranolol HCl [Inderal (Beta 10 mg PO BID 05/12/17 Rubén)] Rivaroxaban [Xarelto] 20 mg PO DAILY 05/12/17 Sennosides/Docusate Sodium 2 tab PO DAILY PRN 05/12/17 [Senna-Docusate Sodium Tablet] Prednisone See Taper PO DAILY #30 tab 07/12/17 Surgical History: Surgical History (Last Reviewed 05/20/17 @ 12:52 by Mary Ruiz) Cataract extraction status (Resolved) Z98.49 History of adenoidectomy (Resolved) Z90.89 History of lumbar surgery (Resolved) Z98.890 H/O total hysterectomy (Resolved) Z90.710 History of tonsillectomy (Resolved) Z90.89 Surgical History: hysterectomy, tonsillectomy, - - Lumbar surgery. 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 Sibling Family History: Family History (Last Reviewed 05/20/17 @ 12:52 by Mary Ruiz) Sister Arthritis Diabetes Father Cancer Aunt Diabetes History Items: Asthma, COPD, Hypertension Review of Systems Constitutional: Denies: Chills, Fever, Weight Change HEENT: Denies: Head Aches, Sinus Congestion, Sinus Drainage Cardiovascular: Reports: Chest Pain. Denies: Palpitations Respiratory: Reports: Cough, Shortness of breath at rest. Denies: Sputum production Gastrointestinal: Denies: Abdominal Pain, Nausea, Vomiting Genitourinary: Denies: Dysuria Musculoskeletal: Denies: Joint Pain, Joint Tenderness Skin: Denies: Rash, Wounds Neurological: Denies: Numbness, Tingling, Focal weakness Psychiatric: Denies: Anxiety, Depression, Homicidal Ideations, Suicidal Ideations Hematologic/ Lymphatic: Denies: Easy Bruising, Easy Bleeding VTE Information - Inpt Only VTE Present on Admission: No VTE Mechan Device Prophylaxis: None VTE Pharm Prophylaxis ordered?: Yes - Physical Exam General: Alert, Oriented x3, Cooperative HEENT: Atraumatic, Normocephalic Neck: Supple Lungs: Diminished, Rhonchi, Wheezes Cardiovascular: Normal S1, Normal S2, No murmurs, Irregular Rate Abdomen: Bowel Sounds Present, Soft, Non Tender, Obese Extremities: No edema Skin: No rashes Musculoskeletal: No Tenderness to Palpation of Joints or Extremities Neurological: Neuro grossly intact Psych/Mental Status: Normal Affect, Appropriate Vital Signs Temp Pulse Resp BP Pulse Ox 97.9 F 63 22 H 119/65 95 08/10/17 19:19 08/10/17 21:42 08/10/17 21:42 08/10/17 21:40 08/10/17 21:40 Oxygen Flow Rate (L/min) 2 Oxygen Delivery Method Nasal Cannula Weight: 215 lb Body Mass Index (BMI) 40.6 Finger Stick Blood Glucose 364 Laboratory Tests Past 24 Hrs 08/10/17 08/10/17 08/10/17 19:38 19:38 19:38 WBC 12.1 H RBC 4.30 Hgb 10.9 L Hct 34.9 L MCV 81.2 MCH 25.3 L MCHC 31.2 L RDW 18.1 H RDW Differential 54.1 H Plt Count 309 MPV 10.6 Immature Gran % (Auto) 0.200 Neut % (Auto) 62.8 Lymph % (Auto) 24.3 [place] % (Auto) 8.4 Eos % (Auto) 4.1 Baso % (Auto) 0.2 Absolute Neuts (auto) 7.6 Absolute Lymphs (auto) 2.94 Total Counted Not Reportable Sodium 137 Potassium 4.4 Chloride 103 Carbon Dioxide 28.0 Anion Gap 6 BUN 12 Creatinine 0.92 Estim Creat Clear Calc 47.84 Est GFR (MDRD) Af Amer 79 Est GFR (MDRD) Non-Af 66 BUN/Creatinine Ratio 13.0 Glucose 235 H Calcium 8.7 Troponin I < 0.015 B-Natriuretic Peptide 39.9 Digoxin 08/10/17 19:38 WBC RBC Hgb Hct MCV MCH MCHC RDW RDW Differential Plt Count MPV Immature Gran % (Auto) Neut % (Auto) Lymph % (Auto) [place] % (Auto) Eos % (Auto) Baso % (Auto) Absolute Neuts (auto) Absolute Lymphs (auto) Total Counted Sodium Potassium Chloride Carbon Dioxide Anion Gap BUN Creatinine Estim Creat Clear Calc Est GFR (MDRD) Af Amer Est GFR (MDRD) Non-Af BUN/Creatinine Ratio Glucose Calcium Troponin I B-Natriuretic Peptide Digoxin 1.43 Assessment/Plan All Active Problems (Last Reviewed 05/20/17 @ 12:52 by Mary Ruiz) Syncope (Acute) Chest pain (Acute) Cataract extraction status (Resolved) History of adenoidectomy (Resolved) History of lumbar surgery (Resolved) H/O total hysterectomy (Resolved) History of tonsillectomy (Resolved) SOB (shortness of breath) (Acute) Left ankle pain (Acute) Chest pain (Acute) Anemia (Acute) Pneumonia (Ruled-out) COPD (chronic obstructive pulmonary disease) (Acute) Acute and chronic respiratory failure with hypoxia (Resolved) Acute bronchitis due to human metapneumovirus (Resolved) Atrial fibrillation with RVR (Resolved) COPD with acute exacerbation (Resolved) Gram-negative pneumonia (Resolved) Plan - admit to PCU - solumedrol 40mg IV q 8 - levaquin 500mg IV q 24hrs - duoneb inh q 4hrs - cycle cardiac markers - oxygen, nitro and Aspirin per routine - cbc, bmp in am - continue routine home medications - continue anticoagulation medication Code Visit Inpatient E&M: 59727 Init Hosp L3
--- NOTE | 2017-08-10 22:07 | NURSING ---
Called ED charge Nurse magy Harmon to send patient to the floor.
[2017-08-10] MEDS: Docusate Sodium 100 MG Capsule PO (23:41)
[2017-08-10] MEDS: Propranolol 10 MG Tablet PO (23:41)
[2017-08-10] MEDS: dilTIAZem 60 MG Tablet 120 MG PO (23:41)
[2017-08-10] MEDS: Atorvastatin Calcium 40 MG Tablet PO (23:45)
[2017-08-10] MEDS: guaiFENesin 1,200 MG Tablet 1200 MG PO (23:45)
[2017-08-10] MEDS: Furosemide 40 MG Tablet PO (23:45)
[2017-08-10] MEDS: Famotidine 20 MG Tablet PO (23:46)
[2017-08-10] MEDS: buPROPion (SR) 150 MG Tablet.SA PO (23:46)
[2017-08-10] MEDS: busPIRone 5 MG Tablet 10 MG PO (23:47)
[2017-08-10] MEDS: Gabapentin 100 MG Capsule PO (23:48)
[2017-08-10] MEDS: 0.9% NaCl Peripheral Flush Adult/Peds IV ×2 (23:51→23:53)
[2017-08-11] VITALS (14 sets, daily range): BP systolic 107–120; BP diastolic 48–64; PULSE 57–89; RESP 16–18; TEMP 36.4–36.9; O2SAT 92–96
[2017-08-11 00:05] LABS: Bedside Glucose 261 mg/dL (70-110)
[2017-08-11 02:36] LABS: Absolute Lymphocyte Count 1.08 X10^3/ul (0.83-4.51); Absolute Neutrophil Count 11.2 X10^3/uL (2.0-7.7); Basophil# 0.02 X10^3/uL; Basophil% 0.2 % (0-1); Eosinophil# 0.04 X10^3/uL; Eosinophils% 0.3 % (0-5); Hematocrit 34.6 % (37-47); Hemoglobin 10.8 g/dl (12.0-15.0); Lymphocyte # 1.08 X10^3/ul (4.0); Lymphocyte % 8.7 % (19-41); Mean Corp Hgb Conc 31.2 g/gl (32-36); Mean Corpuscular Hgb 25.4 pg (27.0-32.0); Mean Corpuscular Volume 81.2 fL (81-99); Mean Platelet Vol. 10.7 fl (6.2-12.0); Monocyte# 0.11 X10^3/uL; Monocyte% 0.9 % (0-10); Neutrophil # 11.18 X10^3/uL (2.7-7.7); Neutrophil % 89.7 % (47-70); Platelet Count 277 K/mm3 (150-450); RBC Distribution Width CV 17.8 % (11.6-14.6); RBC Distribution Width SD 53.6 fl (35.1-43.9); Red Blood Count 4.26 M/mm3 (4.2-5.4); White Blood Count 12.5 K/mm3 (4.4-11.0)
[2017-08-11 02:37] LABS: POSITIVE COUNT NO; POSITIVE DIFFERENTIAL NO; POSITIVE MORPHOLOGY NO
[2017-08-11] MEDS: Ipratropium/Albuterol Sulfate 3 ML AMPUL.NEB INHALATION ×6 (02:56→23:34)
[2017-08-11 02:59] LABS: ALB/GLOB Ratio 0.7 RATIO (0.9-2.4); AST(SGOT) 10 U/L (15-37); Alanine Aminotransfer ALT/SGPT 18 U/L (13-56); Albumin, Serum 2.6 g/dL (3.2-5.0); Alkaline Phosphatase 148 U/L (45-117); Anion Gap 13 (5-15); BUN 15 mg/dL (7-18); BUN/Creat Ratio 12.4 RATIO (10-20); Calcium,Total 8.2 mg/dL (8.5-10.1); Chloride 100 mmol/L (98-107); Creatinine, Serum 1.21 mg/dL (0.55-1.02); EST Glomerular Filtration Rate 48 mL/min (>60); Est Glom Filt Rate - Afr Amer 58 mL/min (>60); Estimated Creatinine Clearance 36.38 ml/min; Globulin 3.8 g/dL (2.2-4.2); Glucose 461 mg/dL (74-106); Potassium 5.3 mmol/L (3.5-5.1); Protein, Total 6.4 g/dL (6.4-8.2); Sodium Level 131 mmol/L (136-145)
[2017-08-11] MEDS: Acetaminophen 325 MG Tablet 650 MG PO (03:14)
[2017-08-11] MEDS: Gabapentin 100 MG Capsule PO ×3 (06:21→21:30)
[2017-08-11] MEDS: busPIRone 5 MG Tablet 10 MG PO ×3 (06:22→21:22)
[2017-08-11 07:11] LABS: Bedside Glucose 433 mg/dL (70-110)
[2017-08-11] MEDS: HYDROcodone Bitartrate/Apap 5/325 Tablet PO ×3 (07:38→19:58)
[2017-08-11] MEDS: Glucerna Shake 120 ML LIQUID PO ×3 (09:11→17:11)
[2017-08-11] MEDS: dilTIAZem 60 MG Tablet 120 MG PO ×2 (09:12→21:22)
[2017-08-11] MEDS: Propranolol 10 MG Tablet PO ×2 (09:12→21:21)
[2017-08-11] MEDS: guaiFENesin 1,200 MG Tablet 1200 MG PO ×2 (09:13→21:21)
[2017-08-11] MEDS: buPROPion (SR) 150 MG Tablet.SA PO ×2 (09:13→21:20)
[2017-08-11] MEDS: Furosemide 40 MG Tablet PO ×2 (09:13→21:21)
[2017-08-11] MEDS: Famotidine 20 MG Tablet PO ×2 (09:13→21:20)
[2017-08-11] MEDS: Digoxin 250 MCG Tablet PO (09:13)
[2017-08-11] MEDS: Lisinopril 5 MG Tablet PO (09:14)
[2017-08-11] MEDS: Rivaroxaban 20 MG Tablet PO (09:14)
[2017-08-11] MEDS: Insulin Lispro 100 UNIT/ML INSULN.PEN SC ×7 (11:09→21:23)
--- NOTE | 2017-08-11 11:11 | NURSING ---
Finger stick BG resulted >600, repeated with same result. Called lab for stat glucose back up. Notified BLUEPRINT REPRODUCER. To give 16 units of Humalog now and to notify of Lab value.
--- NOTE | 2017-08-11 11:17 | CASEMGMT ---
Addendum entered by Geovani Richardson 08/11/17 12:19: [facility] P: F: Original Note: SEE HEIDI COWAN LINK. D/C PLAN: Return to [facility]. Pt prefers [facility] as DME provider. Receives some supplies from [facility], but they do not currently have orders for pt for O2 supplies. HEIDI COWAN spoke w/nurse, Marycarmen, from [facility], who states pt does have a concentrator in her room but they do not have orders for this. Pt also has a nebulizer in her room, nurse/Marycarmen states is not sure who supplies this for pt. Per nurse Marycarmen, states pt continues to go outdoors frequently to smoke. [facility] arranges for Prescriptions for pt. Recommend pt goes home to [facility] with paper Scripts. PT/OT to rosalie. Dov MENON RN, CM
[2017-08-11 11:40] LABS: Bedside Glucose > 500 mg/dL (70-110)
[2017-08-11 11:40] LABS: Bedside Glucose > 500 mg/dL (70-110)
[2017-08-11 11:46] LABS: Glucose 631 mg/dL (74-106)
[2017-08-11 12:20] LABS: Bedside Glucose > 500 mg/dL (70-110)
[2017-08-11 14:06] LABS: Bedside Glucose > 500 mg/dL (70-110)
[2017-08-11] MEDS: 0.9% NaCl Peripheral Flush Adult/Peds IV ×2 (14:06→21:30)
[2017-08-11 15:21] LABS: Bedside Glucose 413 mg/dL (70-110)
--- NOTE | 2017-08-11 16:20 | PN_ITS ---
<Marie Hoover - Last Filed: 08/11/17 16:22> Subjective: Patient seen and examined. Complains of continued increased shortness of breath. Denies cough, fever, chills. Denies chest pain. No other complaints at this time. - Physical Exam General: Alert, Oriented x3, Cooperative, No apparent distress HEENT: Atraumatic, PERRLA, EOMI, Normocephalic Neck: Supple, No JVD, Negative Carotid Bruits Lungs: Diminished, Wheezes Cardiovascular: Regular rate, Regular Rhythm, Normal S1, Normal S2, No murmurs Abdomen: Bowel Sounds Present, Soft, Non Tender, Non-Distended Extremities: No clubbing, No cyanosis, No edema, Capillary Refill Less than 3 Seconds Skin: No rashes, No breakdown Musculoskeletal: No Tenderness to Palpation of Joints or Extremities Neurological: Cranial nerves II-XII grossly intact, Neuro grossly intact Psych/Mental Status: Flat Affect Vital Signs Temp Pulse Resp BP Pulse Ox 97.8 F 70 16 113/48 L 94 08/11/17 11:00 08/11/17 15:20 08/11/17 15:20 08/11/17 11:00 08/11/17 11:00 Oxygen Flow Rate (L/min) 1.5 Oxygen Delivery Method Room Air Weight: 94.8 kg Body Mass Index (BMI) 39.4 Intake and Output for Last 24 Hours 08/09/17 08/10/17 08/11/17 23:59 23:59 23:59 Intake Total 1319 / 1319 Output Total 501 / 501 Balance 818 / 818 Laboratory Tests Past 24 Hrs 08/10/17 08/11/17 08/11/17 23:01 02:10 02:10 WBC 12.5 H RBC 4.26 Hgb 10.8 L Hct 34.6 L MCV 81.2 MCH 25.4 L MCHC 31.2 L RDW 17.8 H RDW Differential 53.6 H Plt Count 277 MPV 10.7 Immature Gran % (Auto) 0.200 Neut % (Auto) 89.7 H Lymph % (Auto) 8.7 L [place] % (Auto) 0.9 Eos % (Auto) 0.3 Baso % (Auto) 0.2 Absolute Neuts (auto) 11.2 H Absolute Lymphs (auto) 1.08 Total Counted Not Reportable Sodium 131 L Potassium 5.3 H Chloride 100 Carbon Dioxide 18.0 L Anion Gap 13 BUN 15 Creatinine 1.21 H Estim Creat Clear Calc 36.38 Est GFR (MDRD) Af Amer 58 L Est GFR (MDRD) Non-Af 48 L BUN/Creatinine Ratio 12.4 Glucose 461 H* Calcium 8.2 L Total Bilirubin 0.30 AST 10 L ALT 18 Alkaline Phosphatase 148 H Troponin I < 0.015 Total Protein 6.4 Albumin 2.6 L Globulin 3.8 Albumin/Globulin Ratio 0.7 L 08/11/17 08/11/17 02:10 11:15 WBC RBC Hgb Hct MCV MCH MCHC RDW RDW Differential Plt Count MPV Immature Gran % (Auto) Neut % (Auto) Lymph % (Auto) [place] % (Auto) Eos % (Auto) Baso % (Auto) Absolute Neuts (auto) Absolute Lymphs (auto) Total Counted Sodium Potassium Chloride Carbon Dioxide Anion Gap BUN Creatinine Estim Creat Clear Calc Est GFR (MDRD) Af Amer Est GFR (MDRD) Non-Af BUN/Creatinine Ratio Glucose 631 H* Calcium Total Bilirubin AST ALT Alkaline Phosphatase Troponin I < 0.015 Total Protein Albumin Globulin Albumin/Globulin Ratio POC Glucose 08/11/17 08/11/17 08/11/17 15:18 14:01 12:17 POC Glucose 413 H > 500 H* > 500 H* 08/11/17 08/11/17 08/11/17 11:05 11:03 07:00 POC Glucose > 500 H* > 500 H* 433 H 08/10/17 23:44 POC Glucose 261 H Medical Necessity - Tobacco Use Smoking Status: Current every day smoker Assessment/Plan All Active Problems (Last Reviewed 05/20/17 @ 12:52 by Mary Ruiz) Syncope (Acute) Chest pain (Acute) Cataract extraction status (Resolved) History of adenoidectomy (Resolved) History of lumbar surgery (Resolved) H/O total hysterectomy (Resolved) History of tonsillectomy (Resolved) SOB (shortness of breath) (Acute) Left ankle pain (Acute) Chest pain (Acute) Anemia (Acute) Pneumonia (Ruled-out) COPD (chronic obstructive pulmonary disease) (Acute) Acute and chronic respiratory failure with hypoxia (Resolved) Acute bronchitis due to human metapneumovirus (Resolved) Atrial fibrillation with RVR (Resolved) COPD with acute exacerbation (Resolved) Gram-negative pneumonia (Resolved) Patient is a 61-year-old female admitted 07/10/2017 due to syncope. She has a past medical history of COPD, chronic atrial fibrillation, hypertension, type 2 diabetes mellitus, hyperlipidemia, GERD, anxiety, chronic hypoxic respiratory failure, obesity, cardiomyopathy. 1. Acute COPD exacerbation on chronic severe COPD with chronic hypoxic respiratory failure-chest x-ray on admission shows no acute cardiopulmonary process. Albuterol and DuoNeb aerosol. Continue supplement oxygen to maintain O2 at or above 90%. Continue IV Solu-Medrol. Transition to oral prednisone tomorrow with plans for discharge. Patient's assisted living facility reports patient does not wear her home oxygen that she has available and is frequently smoking outside. Encourage smoking cessation. Patient follows up with Dr. Prasad with upcoming follow-up with [facility] WITNESS ADMINISTRATOR in August. 2. Chest pain initially reported by patient in ER-denies further chest pain. Troponin negative. Stress test May 13, 2017 negative for ischemia. Echocardiogram 05/13/2017 showed an EF of 65%, mild aortic stenosis. Continue outpatient follow-up with cardiology. Patient has an upcoming appointment with Dr. Mccormick 08/21/2017. 3. Chronic atrial fibrillation-rate controlled. Continue Cardizem, propanolol, Xarelto. 4. Type 2 diabetes mellitus-continue home insulin regimen. Patient has had elevated glucose levels. Accu-Cheks before meals at bedtime. Continue to monitor. 5. Hypertension-stable, continue home Cardizem, Lasix, lisinopril, propanolol, digoxin regimen. 6. Hyperlipidemia-continue statin. 7. History of mild cardiomyopathy-ejection fraction of 45-50%. 8. GERD-continue home famotidine regimen. 9. Anxiety-continue home buspirone, bupropion regimen. 10. Obesity-encouraged diet and lifestyle modifications. 11. Tobacco dependence-encourage smoking cessation. Nicotine replacement patch if desired. DVT prophylaxis-Xarelto This patient was seen by BRIGIDO CardenasC under the supervision of Dr. Fabian. <Jessica Fabian E - Last Filed: 08/11/17 16:50> - Physical Exam Vital Signs Temp Pulse Resp BP Pulse Ox 97.8 F 70 16 113/48 L 94 08/11/17 11:00 08/11/17 15:20 08/11/17 15:20 08/11/17 11:00 08/11/17 11:00 Oxygen Flow Rate (L/min) 1.5 Oxygen Delivery Method Room Air Weight: 208 lb 15.971 oz Body Mass Index (BMI) 39.4 Intake and Output for Last 24 Hours 08/09/17 08/10/17 08/11/17 23:59 23:59 23:59 Intake Total 1319 / 1319 Output Total 501 / 501 Balance 818 / 818 Laboratory Tests Past 24 Hrs 08/10/17 08/11/17 08/11/17 23:01 02:10 02:10 WBC 12.5 H RBC 4.26 Hgb 10.8 L Hct 34.6 L MCV 81.2 MCH 25.4 L MCHC 31.2 L RDW 17.8 H RDW Differential 53.6 H Plt Count 277 MPV 10.7 Immature Gran % (Auto) 0.200 Neut % (Auto) 89.7 H Lymph % (Auto) 8.7 L [place] % (Auto) 0.9 Eos % (Auto) 0.3 Baso % (Auto) 0.2 Absolute Neuts (auto) 11.2 H Absolute Lymphs (auto) 1.08 Total Counted Not Reportable Sodium 131 L Potassium 5.3 H Chloride 100 Carbon Dioxide 18.0 L Anion Gap 13 BUN 15 Creatinine 1.21 H Estim Creat Clear Calc 36.38 Est GFR (MDRD) Af Amer 58 L Est GFR (MDRD) Non-Af 48 L BUN/Creatinine Ratio 12.4 Glucose 461 H* Calcium 8.2 L Total Bilirubin 0.30 AST 10 L ALT 18 Alkaline Phosphatase 148 H Troponin I < 0.015 Total Protein 6.4 Albumin 2.6 L Globulin 3.8 Albumin/Globulin Ratio 0.7 L 08/11/17 08/11/17 02:10 11:15 WBC RBC Hgb Hct MCV MCH MCHC RDW RDW Differential Plt Count MPV Immature Gran % (Auto) Neut % (Auto) Lymph % (Auto) [place] % (Auto) Eos % (Auto) Baso % (Auto) Absolute Neuts (auto) Absolute Lymphs (auto) Total Counted Sodium Potassium Chloride Carbon Dioxide Anion Gap BUN Creatinine Estim Creat Clear Calc Est GFR (MDRD) Af Amer Est GFR (MDRD) Non-Af BUN/Creatinine Ratio Glucose 631 H* Calcium Total Bilirubin AST ALT Alkaline Phosphatase Troponin I < 0.015 Total Protein Albumin Globulin Albumin/Globulin Ratio POC Glucose 08/11/17 08/11/17 08/11/17 16:30 15:18 14:01 POC Glucose 365 H 413 H > 500 H* 08/11/17 08/11/17 08/11/17 12:17 11:05 11:03 POC Glucose > 500 H* > 500 H* > 500 H* 08/11/17 08/10/17 07:00 23:44 POC Glucose 433 H 261 H Assessment/Plan Hospitalist note: I am seeing this patient in conjunction with Marie Hoover. I independently seen and examined the patient. Progress note above, laboratory data and imaging studies reviewed and I agree with above treatment plan. Patient was admitted for shortness of breath and chest pain as well as dry cough. Today, she is still complaining of shortness of breath at rest as well as dry cough. Also, she complained of chest pressure. Chest x-ray showed no acute findings. EKG revealed no evidence of acute ischemic changes. Troponin is negative. - Physical Exam General: Alert, Oriented x3, Cooperative, mildly short of breath. HEENT: Atraumatic, PERRLA, EOMI. Neck: Supple, No JVD, Negative Carotid Bruits, Trachea Midline, Thyroid Normal. Lungs: Decreased breath sounds bilateral, bilateral expiratory wheezes, rhonchi , short of breath. Cardiovascular: irregular rate, Normal S1, Normal S2, PMI Normal. Abdomen: Bowel Sounds Present, Soft, Non Tender, Non-Distended, No Hepato- splenomegaly. Extremities: No clubbing, No cyanosis, No edema Skin: No rashes, No breakdown Neurological: Neuro grossly intact Vital Signs are stable. Pulse ox is maintained on 2 L of oxygen. Assessment and plan: #1 acute COPD exacerbation: She is on IV steroids and bronchodilators as well as antibiotics. Chest x-ray showed no acute findings. She does have history of severe COPD and she supposed to be on oxygen but she is noncompliant. Plan to continue same treatment, wean off oxygen as tolerated. #2 chest pain: Atypical. EKG without acute ischemic changes. Troponin is negative. She had a recent stress test as mentioned above that was unremarkable. 2D echocardiogram also reviewed which was done recently. No indication for further cardiac workup. #3 other chronic medical problems: Stable, continue current medications as above. This note was generated with [employer] software. It may contain incorrect words, spelling, and punctuation that were not noted in checking the note before signing. Code Visit Inpatient E&M: 07782 Subs Hosp L2
[2017-08-11 16:45] LABS: Bedside Glucose 365 mg/dL (70-110)
[2017-08-11 18:25] LABS: Bedside Glucose 390 mg/dL (70-110)
[2017-08-11] MEDS: Atorvastatin Calcium 40 MG Tablet PO (21:21)
[2017-08-11] MEDS: Docusate Sodium 100 MG Capsule PO (21:22)
[2017-08-11 21:51] LABS: Bedside Glucose 302 mg/dL (70-110)
[2017-08-12] VITALS (11 sets, daily range): BP systolic 109–132; BP diastolic 44–59; PULSE 56–78; RESP 16–18; TEMP 36.4–36.6; O2SAT 92–96
[2017-08-12] MEDS: HYDROcodone Bitartrate/Apap 5/325 Tablet PO ×3 (02:37→14:47)
[2017-08-12] MEDS: Ipratropium/Albuterol Sulfate 3 ML AMPUL.NEB INHALATION ×4 (03:34→14:43)
[2017-08-12] MEDS: Gabapentin 100 MG Capsule PO ×2 (05:57→13:05)
[2017-08-12] MEDS: busPIRone 5 MG Tablet 10 MG PO ×2 (05:57→13:05)
[2017-08-12] MEDS: 0.9% NaCl Peripheral Flush Adult/Peds IV (05:58)
[2017-08-12 06:33] LABS: Anion Gap 10 (5-15); BUN 17 mg/dL (7-18); Calcium,Total 8.8 mg/dL (8.5-10.1); Chloride 101 mmol/L (98-107); Creatinine, Serum 0.85 mg/dL (0.55-1.02); EST Glomerular Filtration Rate 72 mL/min (>60); Est Glom Filt Rate - Afr Amer 87 mL/min (>60); Estimated Creatinine Clearance 51.78 ml/min; Glucose 301 mg/dL (74-106); Potassium 4.1 mmol/L (3.5-5.1); Sodium Level 137 mmol/L (136-145)
[2017-08-12 07:05] LABS: Bedside Glucose 332 mg/dL (70-110)
[2017-08-12] MEDS: Insulin Lispro 100 UNIT/ML INSULN.PEN SC ×3 (08:17→15:18)
[2017-08-12] MEDS: Glucerna Shake 120 ML LIQUID PO ×2 (08:21→11:37)
[2017-08-12] MEDS: Rivaroxaban 20 MG Tablet PO (10:03)
[2017-08-12] MEDS: Famotidine 20 MG Tablet PO (10:03)
[2017-08-12] MEDS: Digoxin 250 MCG Tablet PO (10:03)
[2017-08-12] MEDS: dilTIAZem 60 MG Tablet 120 MG PO (10:03)
[2017-08-12] MEDS: Furosemide 40 MG Tablet PO (10:03)
[2017-08-12] MEDS: buPROPion (SR) 150 MG Tablet.SA PO (10:03)
[2017-08-12] MEDS: Propranolol 10 MG Tablet PO (10:03)
[2017-08-12] MEDS: guaiFENesin 1,200 MG Tablet 1200 MG PO (10:03)
[2017-08-12] MEDS: Lisinopril 5 MG Tablet PO (10:03)
[2017-08-12 11:31] LABS: Bedside Glucose > 500 mg/dL (70-110)
--- NOTE | 2017-08-12 11:44 | PCM.DC ---
You will use the following diet at home:: Calorie/Carbohydrate Controlled (specify 1200, 1400, etc) Discharge Activity: Return to Normal Activity Call your doctor if you observe: Shortness of breath, Dizziness, Fainting spells, Chest pain Allergies/Adverse Reactions: Allergies venom-honey bee [bee venom (honey bee)] Allergy (Verified 07/10/17 18:02) Swelling levofloxacin [From Levaquin] Adverse Reaction (Verified 07/10/17 18:02) Nausea oxycodone HCl [From Percocet] Adverse Reaction (Verified 07/10/17 18:02) Nausea Penicillins Adverse Reaction (Verified 07/10/17 18:02) Nausea/Vom/Diarrhea Medications to take at Discharge Acetaminophen [Tylenol] 2 tab PO Q6H PRN 05/12/17 Albuterol Aerosols [Ventolin Aerosols] 2.5 mg INHALATION Q2H PRN PRN 05/12/17 Atorvastatin Calcium [Lipitor] 40 mg PO QHS 05/12/17 Budesonide/Formoterol 160/4.5 [Symbicort 160/4.5 Mcg Inhaler (SP)] 2 puff INHALATION BID 05/12/17 Bupropion HCl [Bupropion HCl Sr] 150 mg PO BID 05/12/17 Buspirone HCl 10 mg PO TID 05/12/17 Digoxin 250 mcg PO DAILY 05/12/17 Diltiazem [Cardizem] 120 mg PO BID 05/12/17 Docusate Sodium [Colace] 100 mg PO QHS 05/12/17 Famotidine [Pepcid] 20 mg PO BID 05/12/17 Furosemide [Lasix] 40 mg PO BID 05/12/17 Gabapentin [Neurontin] 100 mg PO TID 05/12/17 Glucagon,Human Recombinant [Glucagon Emergency Kit] 1 mg IM PRN PRN 05/12/17 Guaifenesin [Mucinex] 1,200 mg PO BID 05/12/17 Insulin Glargine,Hum.rec.anlog [Basaglar Kwikpen U-100] 55 unit SQ QHS 05/12/17 Insulin Lispro [Humalog] 12 unit SQ TIDCM 05/12/17 Ipratropium/Albuterol Sulfate [Duoneb] 3 ml INHALATION Q4H.RT 05/12/17 Lisinopril [Prinivil] 5 mg PO DAILY 05/12/17 Potassium Chloride [K-Dur] 10 meq PO BID 05/12/17 Propranolol HCl [Inderal (Beta Rubén)] 10 mg PO BID 05/12/17 Rivaroxaban [Xarelto] 20 mg PO DAILY 05/12/17 Sennosides/Docusate Sodium [Senna-Docusate Sodium Tablet] 2 tab PO DAILY PRN 05/12/17 Benzonatate [Tessalon Perle] 100 mg PO TID PRN PRN 08/11/17 Hydrocodone Bitart/Apap 5-325 [[place] 5/325] 1 tablet PO Q6H PRN PRN 08/11/17 Mag Hydrox/Al Hydrox/Simeth [Mylanta II] 30 ml PO Q6H PRN PRN 08/11/17 Nitroglycerin [Nitrostat] 0.4 mg SL PRN PRN 08/11/17 Polyethylene Glycol 3350 [Miralax] 17 gm PO PRN PRN 08/11/17 Prednisone See Taper PO DAILY #30 tab 08/12/17 The following prescriptions were given: Prednisone See Taper PO DAILY #30 tab Primary Care Physician: Camden Burger [Primary Care Provider] - Please follow up with your Primary Care Physician in: 1 Week Please Follow Up With: Marylu Howell NP-C When: As scheduled, 09/01/2017 Please Follow Up With: Camden Mccormick MD When: As scheduled 08/21/2017 Proposed Discharge Date: 08/12/17
--- NOTE | 2017-08-12 11:47 | PCM.DC.SUM ---
<Marie Hoover - Last Filed: 08/12/17 11:53> Discharge Date and Diagnosis Date of Admission: 08/10/17 Date of Discharge: 08/12/17 - Primary Discharge Diagnosis 1. Acute COPD exacerbation with acute hypoxia on chronic severe COPD with chronic hypoxic respiratory failure - Secondary Discharge Diagnosis Chronic Problems (Last Reviewed 05/20/17 @ 12:52 by Mary Ruiz) Osteoporosis (Chronic) Hypersomnia (Chronic) Former smoker (Chronic) Quit in the fall 2016 Hypomagnesemia (Chronic) HTN (hypertension) (Chronic) Morbid obesity with BMI of 40.0-44.9, adult (Chronic) Chronic pain (Chronic) Chronic atrial fibrillation (Chronic) Non-compliance (Chronic) withn follow up with pulmonary Chronic hypoxemic respiratory failure (Chronic) Cardiomyopathy (Chronic) EF in Oct 2015 45-50 Hyperlipemia (Chronic) Type 2 diabetes mellitus (Chronic) GERD (gastroesophageal reflux disease) (Chronic) Anxiety (Chronic) Insomnia (Chronic) Hospital Course and Treatment Imaging Results: Diagnostic Data Chest X-Ray 08/10/17 19:34 IMPRESSION: Degenerative changes, as described above. No demonstrated acute cardiopulmonary process. Electronically Signed: Danny Hale MD at 20:18 EDT , Service support , Operations: None Procedures: None Summary of Care Provided: Patient is a 61-year-old female admitted 07/10/2017 due to syncope. She has a past medical history of COPD, chronic atrial fibrillation, hypertension, type 2 diabetes mellitus, hyperlipidemia, GERD, anxiety, chronic hypoxic respiratory failure, obesity, cardiomyopathy. 1. Acute COPD exacerbation with acute hypoxia on chronic severe COPD with chronic hypoxic respiratory failure-chest x-ray on admission shows no acute cardiopulmonary process. Albuterol and DuoNeb aerosol. Patient weaned off of oxygen and stable on room air. Transition to oral prednisone taper at discharge. Patient's assisted living facility reports patient does not wear her home oxygen that she has available and is frequently smoking outside. Encourage smoking cessation. Patient follows up with Dr. Prasad with upcoming follow-up with INTERNET PROJECT MANAGER in August. Continue oxygen as needed to maintain O2 at or above 90%. Patient has oxygen available at assisted living facility. Continue outpatient follow-up as scheduled with pulmonary medicine. 2. Chest pain initially reported by patient in ER-denies further chest pain. Troponin negative. Stress test May 13, 2017 negative for ischemia. Echocardiogram 05/13/2017 showed an EF of 65%, mild aortic stenosis. Continue outpatient follow-up with cardiology. Patient has an upcoming appointment with Dr. Mccormick 08/21/2017. 3. Chronic atrial fibrillation-rate controlled. Continue Cardizem, propanolol, Xarelto. 4. Type 2 diabetes mellitus with hyperglycemia during admission secondary to IV steroid use-continue home insulin regimen. Continue to monitor blood glucose closely at discharge. 5. Hypertension-stable, continue home Cardizem, Lasix, lisinopril, propanolol, digoxin regimen. 6. Hyperlipidemia-continue statin. 7. History of mild cardiomyopathy-ejection fraction of 45-50%. 8. GERD-continue home famotidine regimen. 9. Anxiety-continue home buspirone, bupropion regimen. 10. Obesity-encouraged diet and lifestyle modifications. 11. Tobacco dependence-encourage smoking cessation. Nicotine replacement patch if desired. DVT prophylaxis-Xarelto This patient was seen by FRANKLIN Cardenas under the supervision of Dr. Fabian. Discharge Diet: Carb Control Diet Discharge Activity: Return to Normal Activity Call your doctor if you observe: Shortness of breath, Dizziness, Fainting spells, Chest pain Home Medications: Medications to take at Discharge Acetaminophen [Tylenol] 2 tab PO Q6H PRN 05/12/17 Albuterol Aerosols [Ventolin Aerosols] 2.5 mg INHALATION Q2H PRN PRN 05/12/17 Atorvastatin Calcium [Lipitor] 40 mg PO QHS 05/12/17 Budesonide/Formoterol 160/4.5 [Symbicort 160/4.5 Mcg Inhaler (SP)] 2 puff INHALATION BID 05/12/17 Bupropion HCl [Bupropion HCl Sr] 150 mg PO BID 05/12/17 Buspirone HCl 10 mg PO TID 05/12/17 Digoxin 250 mcg PO DAILY 05/12/17 Diltiazem [Cardizem] 120 mg PO BID 05/12/17 Docusate Sodium [Colace] 100 mg PO QHS 05/12/17 Famotidine [Pepcid] 20 mg PO BID 05/12/17 Furosemide [Lasix] 40 mg PO BID 05/12/17 Gabapentin [Neurontin] 100 mg PO TID 05/12/17 Glucagon,Human Recombinant [Glucagon Emergency Kit] 1 mg IM PRN PRN 05/12/17 Guaifenesin [Mucinex] 1,200 mg PO BID 05/12/17 Insulin Glargine,Hum.rec.anlog [Basaglar Kwikpen U-100] 55 unit SQ QHS 05/12/17 Insulin Lispro [Humalog] 12 unit SQ TIDCM 05/12/17 Ipratropium/Albuterol Sulfate [Duoneb] 3 ml INHALATION Q4H.RT 05/12/17 Lisinopril [Prinivil] 5 mg PO DAILY 05/12/17 Potassium Chloride [K-Dur] 10 meq PO BID 05/12/17 Propranolol HCl [Inderal (Beta Rubén)] 10 mg PO BID 05/12/17 Rivaroxaban [Xarelto] 20 mg PO DAILY 05/12/17 Sennosides/Docusate Sodium [Senna-Docusate Sodium Tablet] 2 tab PO DAILY PRN 05/12/17 Benzonatate [Tessalon Perle] 100 mg PO TID PRN PRN 08/11/17 Hydrocodone Bitart/Apap 5-325 [[place] 5/325] 1 tablet PO Q6H PRN PRN 08/11/17 Mag Hydrox/Al Hydrox/Simeth [Mylanta II] 30 ml PO Q6H PRN PRN 08/11/17 Nitroglycerin [Nitrostat] 0.4 mg SL PRN PRN 08/11/17 Polyethylene Glycol 3350 [Miralax] 17 gm PO PRN PRN 08/11/17 Prednisone See Taper PO DAILY #30 tab 08/12/17 Following Prescrptions Were Given to Patient: Prednisone See Taper PO DAILY #30 tab Primary Care Physician: Camden Burger [Primary Care Provider] - Please follow up with your Primary Care Physician in: 1 Week Please Follow Up With: Marylu Howell NP-C When: As scheduled, 09/01/2017 Please Follow Up With: Camden Mccormick MD When: As scheduled 08/21/2017 Disposition: Asstd Living/Non-Skill NH Minutes spent on discharge:: 35 Patient Condition:: Stable Medical Necessity - Tobacco Use Smoking Status: Current every day smoker Meaningful Use Info Meaningful Use Diagnoses (Choose all that apply): None applicable <Jessica Fabian E - Last Filed: 08/12/17 12:33> Discharge Date and Diagnosis - Secondary Discharge Diagnosis Chronic Problems (Last Reviewed 05/20/17 @ 12:52 by Mary Ruiz) Osteoporosis (Chronic) Hypersomnia (Chronic) Former smoker (Chronic) Quit in the fall 2016 Hypomagnesemia (Chronic) HTN (hypertension) (Chronic) Morbid obesity with BMI of 40.0-44.9, adult (Chronic) Chronic pain (Chronic) Chronic atrial fibrillation (Chronic) Non-compliance (Chronic) withn follow up with pulmonary Chronic hypoxemic respiratory failure (Chronic) Cardiomyopathy (Chronic) EF in Oct 2015 45-50 Hyperlipemia (Chronic) Type 2 diabetes mellitus (Chronic) GERD (gastroesophageal reflux disease) (Chronic) Anxiety (Chronic) Insomnia (Chronic) Hospital Course and Treatment Summary of Care Provided: Hospitalist note: Discharge summary above reviewed as well as physical examination and I agree with above discharge plan. Patient seen and examined on the day of discharge and appeared to be stable to be discharged home. Her symptoms improved, less short of breath and has been maintaining pulse ox on room air. Her other vital signs are stable. She was admitted for worsening shortness of breath and dry cough, found to have acute COPD exacerbation. Her chest x-ray showed no acute findings, pneumonia ruled out. She was treated with bronchodilators and steroids and her symptoms improved. Initially, she required oxygen up to 3 L and today, her symptoms improved and she is maintaining her pulse ox on room air. On admission, she complained of chest pain which seemed to be atypical. Her EKG was unremarkable as well as cardiac enzymes. She had a recent stress test as well as 2D echocardiogram that were unremarkable. - Physical Exam General: Alert, Oriented x3, Cooperative, No apparent distress. HEENT: Atraumatic, PERRLA, EOMI. Neck: Supple, No JVD, Negative Carotid Bruits, Trachea Midline, Thyroid Normal. Lungs: Decreased breath sounds bilateral, occasional rhonchi, No wheeze, No rales. Cardiovascular: Irregular rate, Normal S1, Normal S2, PMI Normal. Abdomen: Bowel Sounds Present, Soft, Non Tender, Non-Distended, No Hepato-splenomegaly. Extremities: No clubbing, No cyanosis, No edema Skin: No rashes, No breakdown Neurological: Neuro grossly intact Vital Signs are stable. Patient discharged home in a stable medical condition, discharged on tapering course of prednisone, continue with on her bronchodilators including albuterol, Symbicort, DuoNeb. Continuing on her chronic home medications without any changes, recommended follow-up with PCP in 1 week, follow-up with pulmonology as scheduled and follow-up with cardiology as scheduled as well. This note was generated with [employer] dictation software. It may contain incorrect words, spelling, and punctuation that were not noted in checking the note before signing. Minutes spent on discharge:: 31 Medical Necessity - Tobacco Use Tobacco Use: Cigarettes Meaningful Use Info Meaningful Use Diagnoses (Choose all that apply): None applicable Code Visit Inpatient E&M: 76846 Disch Hosp
--- NOTE | 2017-08-12 11:53 | DS.PCM_ITS ---
<Marie Hoover - Last Filed: 08/12/17 11:53> Discharge Date and Diagnosis Date of Admission: 08/10/17 Date of Discharge: 08/12/17 - Primary Discharge Diagnosis 1. Acute COPD exacerbation with acute hypoxia on chronic severe COPD with chronic hypoxic respiratory failure - Secondary Discharge Diagnosis Chronic Problems (Last Reviewed 05/20/17 @ 12:52 by Mary Ruiz) Osteoporosis (Chronic) Hypersomnia (Chronic) Former smoker (Chronic) Quit in the fall 2016 Hypomagnesemia (Chronic) HTN (hypertension) (Chronic) Morbid obesity with BMI of 40.0-44.9, adult (Chronic) Chronic pain (Chronic) Chronic atrial fibrillation (Chronic) Non-compliance (Chronic) withn follow up with pulmonary Chronic hypoxemic respiratory failure (Chronic) Cardiomyopathy (Chronic) EF in Oct 2015 45-50 Hyperlipemia (Chronic) Type 2 diabetes mellitus (Chronic) GERD (gastroesophageal reflux disease) (Chronic) Anxiety (Chronic) Insomnia (Chronic) Hospital Course and Treatment Imaging Results: Diagnostic Data Chest X-Ray 08/10/17 19:34 IMPRESSION: Degenerative changes, as described above. No demonstrated acute cardiopulmonary process. Electronically Signed: Danny Hale MD at 20:18 EDT , Service support , Operations: None Procedures: None Summary of Care Provided: Patient is a 61-year-old female admitted 07/10/2017 due to syncope. She has a past medical history of COPD, chronic atrial fibrillation, hypertension, type 2 diabetes mellitus, hyperlipidemia, GERD, anxiety, chronic hypoxic respiratory failure, obesity, cardiomyopathy. 1. Acute COPD exacerbation with acute hypoxia on chronic severe COPD with chronic hypoxic respiratory failure-chest x-ray on admission shows no acute cardiopulmonary process. Albuterol and DuoNeb aerosol. Patient weaned off of oxygen and stable on room air. Transition to oral prednisone taper at discharge. Patient's assisted living facility reports patient does not wear her home oxygen that she has available and is frequently smoking outside. Encourage smoking cessation. Patient follows up with Dr. Prasad with upcoming follow-up with PROSTHET[employer] AIDES TEACHER in August. Continue oxygen as needed to maintain O2 at or above 90%. Patient has oxygen available at assisted living facility. Continue outpatient follow-up as scheduled with pulmonary medicine. 2. Chest pain initially reported by patient in ER-denies further chest pain. Troponin negative. Stress test May 13, 2017 negative for ischemia. Echocardiogram 05/13/2017 showed an EF of 65%, mild aortic stenosis. Continue outpatient follow-up with cardiology. Patient has an upcoming appointment with Dr. Mccormick 08/21/2017. 3. Chronic atrial fibrillation-rate controlled. Continue Cardizem, propanolol, Xarelto. 4. Type 2 diabetes mellitus with hyperglycemia during admission secondary to IV steroid use-continue home insulin regimen. Continue to monitor blood glucose closely at discharge. 5. Hypertension-stable, continue home Cardizem, Lasix, lisinopril, propanolol, digoxin regimen. 6. Hyperlipidemia-continue statin. 7. History of mild cardiomyopathy-ejection fraction of 45-50%. 8. GERD-continue home famotidine regimen. 9. Anxiety-continue home buspirone, bupropion regimen. 10. Obesity-encouraged diet and lifestyle modifications. 11. Tobacco dependence-encourage smoking cessation. Nicotine replacement patch if desired. DVT prophylaxis-Xarelto This patient was seen by FRANKLIN Cardenas under the supervision of Dr. Fabian. Discharge Diet: Carb Control Diet Discharge Activity: Return to Normal Activity Call your doctor if you observe: Shortness of breath, Dizziness, Fainting spells , Chest pain Home Medications: Medications to take at Discharge Acetaminophen [Tylenol] 2 tab PO Q6H PRN 05/12/17 Albuterol Aerosols [Ventolin Aerosols] 2.5 mg INHALATION Q2H PRN PRN 05/12/17 Atorvastatin Calcium [Lipitor] 40 mg PO QHS 05/12/17 Budesonide/Formoterol 160/4.5 [Symbicort 160/4.5 Mcg Inhaler (SP)] 2 puff INHALATION BID 05/12/17 Bupropion HCl [Bupropion HCl Sr] 150 mg PO BID 05/12/17 Buspirone HCl 10 mg PO TID 05/12/17 Digoxin 250 mcg PO DAILY 05/12/17 Diltiazem [Cardizem] 120 mg PO BID 05/12/17 Docusate Sodium [Colace] 100 mg PO QHS 05/12/17 Famotidine [Pepcid] 20 mg PO BID 05/12/17 Furosemide [Lasix] 40 mg PO BID 05/12/17 Gabapentin [Neurontin] 100 mg PO TID 05/12/17 Glucagon,Human Recombinant [Glucagon Emergency Kit] 1 mg IM PRN PRN 05/12/17 Guaifenesin [Mucinex] 1,200 mg PO BID 05/12/17 Insulin Glargine,Hum.rec.anlog [Basaglar Kwikpen U-100] 55 unit SQ QHS 05/12/17 Insulin Lispro [Humalog] 12 unit SQ TIDCM 05/12/17 Ipratropium/Albuterol Sulfate [Duoneb] 3 ml INHALATION Q4H.RT 05/12/17 Lisinopril [Prinivil] 5 mg PO DAILY 05/12/17 Potassium Chloride [K-Dur] 10 meq PO BID 05/12/17 Propranolol HCl [Inderal (Beta Rubén)] 10 mg PO BID 05/12/17 Rivaroxaban [Xarelto] 20 mg PO DAILY 05/12/17 Sennosides/Docusate Sodium [Senna-Docusate Sodium Tablet] 2 tab PO DAILY PRN Benzonatate [Tessalon Perle] 100 mg PO TID PRN PRN 08/11/17 Hydrocodone Bitart/Apap 5-325 [[place] 5/325] 1 tablet PO Q6H PRN PRN 08/11/17 Mag Hydrox/Al Hydrox/Simeth [Mylanta II] 30 ml PO Q6H PRN PRN 08/11/17 Nitroglycerin [Nitrostat] 0.4 mg SL PRN PRN 08/11/17 Polyethylene Glycol 3350 [Miralax] 17 gm PO PRN PRN 08/11/17 Prednisone See Taper PO DAILY #30 tab 08/12/17 Following Prescrptions Were Given to Patient: Prednisone See Taper PO DAILY #30 tab Primary Care Physician: Camden Burger [Primary Care Provider] - Please follow up with your Primary Care Physician in: 1 Week Please Follow Up With: Marylu Howell NP-C When: As scheduled, 09/01/2017 Please Follow Up With: Camden Mccormick MD When: As scheduled 08/21/2017 Disposition: Asstd Living/Non-Skill NH Minutes spent on discharge:: 35 Patient Condition:: Stable Medical Necessity - Tobacco Use Smoking Status: Current every day smoker Meaningful Use Info Meaningful Use Diagnoses (Choose all that apply): None applicable <Jessica Fabian E - Last Filed: 08/12/17 12:33> Discharge Date and Diagnosis - Secondary Discharge Diagnosis Chronic Problems (Last Reviewed 05/20/17 @ 12:52 by Mary Ruiz) Osteoporosis (Chronic) Hypersomnia (Chronic) Former smoker (Chronic) Quit in the fall 2016 Hypomagnesemia (Chronic) HTN (hypertension) (Chronic) Morbid obesity with BMI of 40.0-44.9, adult (Chronic) Chronic pain (Chronic) Chronic atrial fibrillation (Chronic) Non-compliance (Chronic) withn follow up with pulmonary Chronic hypoxemic respiratory failure (Chronic) Cardiomyopathy (Chronic) EF in Oct 2015 45-50 Hyperlipemia (Chronic) Type 2 diabetes mellitus (Chronic) GERD (gastroesophageal reflux disease) (Chronic) Anxiety (Chronic) Insomnia (Chronic) Hospital Course and Treatment Summary of Care Provided: Hospitalist note: Discharge summary above reviewed as well as physical examination and I agree with above discharge plan. Patient seen and examined on the day of discharge and appeared to be stable to be discharged home. Her symptoms improved, less short of breath and has been maintaining pulse ox on room air. Her other vital signs are stable. She was admitted for worsening shortness of breath and dry cough, found to have acute COPD exacerbation. Her chest x-ray showed no acute findings, pneumonia ruled out. She was treated with bronchodilators and steroids and her symptoms improved. Initially, she required oxygen up to 3 L and today, her symptoms improved and she is maintaining her pulse ox on room air. On admission, she complained of chest pain which seemed to be atypical. Her EKG was unremarkable as well as cardiac enzymes. She had a recent stress test as well as 2D echocardiogram that were unremarkable. - Physical Exam General: Alert, Oriented x3, Cooperative, No apparent distress. HEENT: Atraumatic, PERRLA, EOMI. Neck: Supple, No JVD, Negative Carotid Bruits, Trachea Midline, Thyroid Normal. Lungs: Decreased breath sounds bilateral, occasional rhonchi, No wheeze, No rales. Cardiovascular: Irregular rate, Normal S1, Normal S2, PMI Normal. Abdomen: Bowel Sounds Present, Soft, Non Tender, Non-Distended, No Hepato- splenomegaly. Extremities: No clubbing, No cyanosis, No edema Skin: No rashes, No breakdown Neurological: Neuro grossly intact Vital Signs are stable. Patient discharged home in a stable medical condition, discharged on tapering course of prednisone, continue with on her bronchodilators including albuterol, Symbicort, DuoNeb. Continuing on her chronic home medications without any changes, recommended follow-up with PCP in 1 week, follow-up with pulmonology as scheduled and follow-up with cardiology as scheduled as well. This note was generated with [employer] dictation software. It may contain incorrect words, spelling, and punctuation that were not noted in checking the note before signing. Minutes spent on discharge:: 31 Medical Necessity - Tobacco Use Tobacco Use: Cigarettes Meaningful Use Info Meaningful Use Diagnoses (Choose all that apply): None applicable Code Visit Inpatient E&M: 69294 Disch Hosp
[2017-08-12 12:50] LABS: Bedside Glucose > 500 mg/dL (70-110)
[2017-08-12] MEDS: Insulin Lispro 100 UNIT/ML INSULN.PEN 20 UNIT SC (13:06)
[2017-08-12 13:35] LABS: Bedside Glucose 480 mg/dL (70-110)
[2017-08-12] MEDS: Insulin Lispro 100 UNIT/ML INSULN.PEN 25 UNIT SC (13:45)
--- NOTE | 2017-08-12 14:19 | CASEMGMT ---
Social Work Note PCU Notified that patient to be discharged back to [facility] today and needs transport via wheelchair van. Spoke with Marycarmen a nurse at patient's assisted living. Let Marycarmen know that patient is slated for discharge today. Faxed home going orders to confirmed fax, for continuity of care, to [phone]. [facility] has no vans available this afternoon. [facility] has one available at 1430 but per conversation with medical staff and nursing, patient will not be ready for discharged by that time. Called [facility] ([phone]) and spoke with Sandhya. Sandhya reports has transported patient in the past and can transport patient at 1630 today. Notified nursing and medical staff. Called [facility] and left message of discharge time. Updated Primary PCU social work msw Briana Mendoza to the arrangements made. Per Briana, patient has prescription for a cane and this was faxed earlier today to medical supplier. No other services requested or indicated. PLAN: Discharge back to assisted living level of car.RON Yañez, RESERVATIONS SALES SUPERVISOR
[2017-08-12 14:56] LABS: Bedside Glucose 360 mg/dL (70-110)
[2017-08-12 16:16] LABS: Bedside Glucose 341 mg/dL (70-110)
== END 2017-08-12 16:23 | disposition home or self-care (01) | DRG 88 ==
LOC: ED 19:42 → PCU 22:03
PROVIDERS: Nurse Practitioner Family; Admitting Provider Family Medicine; Emergency Provider Emergency Medicine; Family Provider Family Medicine; PCP Family Medicine; Visit Provider Hospitalist
DX: J44.1 Chronic obstructive pulmonary disease with (acute) exacerbation (principal); I48.2 Chronic atrial fibrillation; I42.9 Cardiomyopathy, unspecified; J96.11 Chronic respiratory failure with hypoxia; I35.0 Nonrheumatic aortic (valve) stenosis; E11.65 Type 2 diabetes mellitus with hyperglycemia; Z79.4 Long term (current) use of insulin; I10 Essential (primary) hypertension; Z79.899 Other long term (current) drug therapy; F41.9 Anxiety disorder, unspecified; K21.9 Gastro-esophageal reflux disease without esophagitis; F17.210 Nicotine dependence, cigarettes, uncomplicated; E78.5 Hyperlipidemia, unspecified; R07.89 Other chest pain; M81.0 Age-related osteoporosis without current pathological fracture; Z91.19 Patient's noncompliance with other medical treatment and regimen; E66.01 Morbid (severe) obesity due to excess calories; Z68.41 Body mass index [BMI] 40.0-44.9, adult; T38.0X5A Adverse effect of glucocorticoids and synthetic analogues, initial encounter
CPT/HCPCS: 36415; 71045; 80048; 80053; 80162; 82947; 82962; 83880; 84484; 85025; 93005; 94640; 97110; 97162; 97165; 97802; 99285; J7030; A4216

== ENCOUNTER 2017-08-20 22:23 | Observation (INO) | payer MEDICAID, SELFPAY ==
[2017-08-20 22:24] VITALS: BP 128/82; PULSE 89; RESP 24; TEMP 36.8; O2SAT 93; BMI 39.6
--- NOTE | 2017-08-20 22:33 | EKG12_ITS ---
Test Reason : CP Blood Pressure : / mmHG Vent. Rate : 081 BPM Atrial Rate : 375 BPM P-R Int : 000 ms QRS Dur : 084 ms QT Int : 346 ms P-R-T Axes : 000 073 -61 degrees QTc Int : 401 ms Atrial fibrillation Septal infarct , age undetermined ST & T wave abnormality, consider inferior ischemia Abnormal ECG Confirmed by ELSY DELGADO, LUCILA ([id number]), editorial clerk DIANA GALVEZ ([id number]) on 08/24/2017 3:02:49 PM Referred By: VALERY Confirmed By:LUCILA CHIN MD
[2017-08-20] MEDS: Morphine 4 MG/ML Syringe IV (22:45)
[2017-08-20] MEDS: 0.9% Normal Saline 1,000 ML 15 ML IV (22:45)
[2017-08-20 22:46] VITALS: BP 142/60; PULSE 72
[2017-08-20] MEDS: Nitroglycerin Oint 1 INCH PACKET TRANSDERM. (22:46)
--- NOTE | 2017-08-20 22:50 | RAD_ITS ---
STUDY: X-RAY CHEST REASON FOR EXAM: Female, 62 years old. Chest pain TECHNIQUE: PA and lateral COMPARISON: August 10, 2017 FINDINGS: Lungs are mildly hyperinflated but clear. Tiny calcified granulomata are noted bilaterally. There is no demonstrated pleural abnormality. Normal size heart. Normal mediastinum and sangeeta. Normal visualized pulmonary arteries. Normal visualized aortic arch and descending thoracic aorta. Dorsal spine demonstrates moderate spondylosis. Normal visualized ribs, clavicles, and shoulders. There is no demonstrated abnormality of the visualized soft tissue structures of the upper abdomen. No significant change since prior study RAD/Chest PA and Lateral IMPRESSION: No acute cardiopulmonary pathology Electronically Signed: Moses Diamond MD at 23:14 EDT , Service support ,
[2017-08-20 22:51] LABS: Absolute Lymphocyte Count 6.17 X10^3/ul (0.83-4.51); Absolute Neutrophil Count 16.6 X10^3/uL (2.0-7.7); Basophil# 0.02 X10^3/uL; Basophil% 0.1 % (0-1); Eosinophil# 0.12 X10^3/uL; Eosinophils% 0.5 % (0-5); Hematocrit 37.5 % (37-47); Hemoglobin 11.8 g/dl (12.0-15.0); Lymphocyte # 6.17 X10^3/ul (4.0); Lymphocyte % 24.7 % (19-41); Mean Corp Hgb Conc 31.5 g/gl (32-36); Mean Corpuscular Hgb 25.4 pg (27.0-32.0); Mean Corpuscular Volume 80.8 fL (81-99); Mean Platelet Vol. 10.2 fl (6.2-12.0); Monocyte# 1.82 X10^3/uL; Monocyte% 7.3 % (0-10); Neutrophil # 16.59 X10^3/uL (2.7-7.7); Neutrophil % 66.5 % (47-70); Platelet Count 422 K/mm3 (150-450); RBC Distribution Width CV 18.3 % (11.6-14.6); RBC Distribution Width SD 54.4 fl (35.1-43.9); Red Blood Count 4.64 M/mm3 (4.2-5.4); White Blood Count 24.9 K/mm3 (4.4-11.0)
[2017-08-20 22:52] LABS: Differential Indicated SCAN CRITERIA MET; POSITIVE COUNT NO; POSITIVE DIFFERENTIAL YES; POSITIVE MORPHOLOGY NO
[2017-08-20 23:00] VITALS: PULSE 78; RESP 21; O2SAT 96
[2017-08-20] MEDS: Ipratropium/Albuterol Sulfate 3 ML AMPUL.NEB INHALATION (23:00)
[2017-08-20] MEDS: Albuterol 2.5 MG/3 ML VIAL.NEB. INHALATION ×3 (23:00→23:15)
[2017-08-20 23:02] LABS: International Normalized Ratio 1.4; Prothrombin Time (Protime)PT. 17.1 SECONDS (11.7-14.9)
[2017-08-20 23:03] LABS: Partial Thromboplast Time 32.1 Seconds (24.1-36.2)
[2017-08-20 23:15] VITALS: PULSE 77; RESP 24
[2017-08-20 23:42] LABS: Anion Gap 7 (5-15); BUN 19 mg/dL (7-18); BUN/Creat Ratio 23.6 RATIO (10-20); Calcium,Total 8.7 mg/dL (8.5-10.1); Chloride 101 mmol/L (98-107); Creatinine, Serum 0.81 mg/dL (0.55-1.02); EST Glomerular Filtration Rate 77 mL/min (>60); Est Glom Filt Rate - Afr Amer 93 mL/min (>60); Estimated Creatinine Clearance 54.34 ml/min; Glucose 160 mg/dL (74-106); Potassium 5.1 mmol/L (3.5-5.1); Sodium Level 137 mmol/L (136-145)
[2017-08-21] VITALS (18 sets, daily range): BP systolic 96–140; BP diastolic 45–75; PULSE 60–96; RESP 16–22; TEMP 36–36.7; O2SAT 90–97; BMI 38.7
[2017-08-21 00:05] LABS: BNP,B-Type NATRIURETIC PEPTIDE 10.6 pg/mL (0-100)
[2017-08-21] MEDS: Ceftriaxone 1 GM/50 ML BAG IV (00:27)
[2017-08-21 00:28] LABS: Lactic Acid 1.8 mmol/L (0.4-2.0)
--- NOTE | 2017-08-21 00:49 | HP.PCM_ITS ---
Problem List (1) Acute exacerbation of chronic obstructive pulmonary disease (COPD) Status: Acute (2) Tobacco dependence due to cigarettes Status: Chronic (3) Non-compliance Status: Chronic (4) Microcytic anemia Status: Chronic (5) Chest pain Status: Acute Qualifiers: (6) Syncope Status: Acute (7) Chest pain Status: Acute Qualifiers: (8) Hypersomnia Status: Chronic (9) Anemia Status: Chronic (10) Hypomagnesemia Status: Chronic (11) HTN (hypertension) Status: Chronic Qualifiers: (12) Morbid obesity with BMI of 40.0-44.9, adult Status: Chronic (13) COPD (chronic obstructive pulmonary disease) Status: Acute Qualifiers: (14) Chronic pain Status: Chronic Qualifiers: (15) Chronic atrial fibrillation Status: Chronic (16) Chronic hypoxemic respiratory failure Status: Chronic (17) Hyperlipemia Status: Chronic Qualifiers: Comment: ECHO in June of 2017 showed a 75% EF (18) Type 2 diabetes mellitus Status: Chronic Qualifiers: Comment: uncontrolled (19) GERD (gastroesophageal reflux disease) Status: Chronic Qualifiers: (20) Anxiety Status: Chronic (21) Insomnia Status: Chronic Qualifiers: History of Present Illness Date of Admission: 08/21/17 Chief Complaint: chest pain and SOB The patient is a 62 year old F with a past medical history of hypertension, diabetes mellitus type 2, hyperlipidemia, COPD, chronic pain syndrome, tobacco abuse, chronic anticoagulation with Xarelto, mild aortic stenosis, hypersomnia, osteoporosis, hypomagnesemia, morbid obesity, chronic atrial fibrillation, chronic respiratory failure with hypoxemia not compliant with oxygen, GERD and non-compliance who was brought to the ED at [facility] from the halfway where she is a chronic resident at the age of 62 with complaints of Chest Pain. Chest pain is a frequent complaint and she had a stress in April of 2017 that was negative. She additionally complains of a nonproductive cough although she did not cough even once when I was in her room. The chest pain is reproducible with left chest palpation. A Recent ECHO showed an EF of 75% with mild and no wall motion abnormalities. This is her seventh admission to the hospital in the past 12 months. Her most recent admission to [facility] was on 08/10/2017 and she was discharged on 08/12/2017. She was treated for an acute exacerbation of COPD at that time. She continues to smoke and she does not wear her oxygen. Vital signs at presentation to the emergency room were temp 98.2, pulse 98, blood pressure 128/82, respiratory rate 21-24 and she was 93% saturated on a 2 L nasal cannula. White blood cell count was 24.9 with an unremarkable differential. She has been on a prednisone taper since discharge from the hospital on 08/12/2017. Hemoglobin was 11.8 with an MCV of 80.8 and an RDW of 18.3. The MCV has been progressively decreasing over the past year. Electrolytes are within normal limits and the BUN is 19 with a creatinine of 0.81. CXR shows no pulmonary vascular congestion, pleural effusions or infiltrates. EKG showed some nonspecific ST and T-wave changes which were unchanged from previous EKGs. Troponin was less than 0.015. She appeared to be in no distress at the time of my exam. she was not tachypneic and she had no conversational dyspnea and no accessory muscle use. She was lying flat in bed. The ED physician requested she be admitted for acute exacerbation COPD. She is being admitted for observation. Past Medical History Past Medical History (Chronic Problems): Chronic Problems (Last Reviewed 08/21/17 @ 01:02 by Favian Montalvo DO) Tobacco dependence due to cigarettes (Chronic) Non-compliance (Chronic) Microcytic anemia (Chronic) Hypersomnia (Chronic) Anemia (Chronic) Hypomagnesemia (Chronic) HTN (hypertension) (Chronic) Morbid obesity with BMI of 40.0-44.9, adult (Chronic) Chronic pain (Chronic) Chronic atrial fibrillation (Chronic) Chronic hypoxemic respiratory failure (Chronic) non-compliant with oxygen Hyperlipemia (Chronic) ECHO in June of 2017 showed a 75% EF Type 2 diabetes mellitus (Chronic) uncontrolled GERD (gastroesophageal reflux disease) (Chronic) Anxiety (Chronic) Insomnia (Chronic) Medical History: Medical History (Last Reviewed 08/21/17 @ 01:02 by Favian Montalvo DO) Hypersomnia (Chronic) G47.10 Chest pain (Acute) R07.9 Anemia (Chronic) D64.9 Hypomagnesemia (Chronic) E83.42 HTN (hypertension) (Chronic) I10 Morbid obesity with BMI of 40.0-44.9, adult (Chronic) E66.01, Z68.41 COPD (chronic obstructive pulmonary disease) (Acute) J44.9 Chronic pain (Chronic) G89.29 Chronic atrial fibrillation (Chronic) I48.2 Chronic hypoxemic respiratory failure (Chronic) J96.11 non-compliant with oxygen Hyperlipemia (Chronic) E78.5 ECHO in June of 2017 showed a 75% EF Type 2 diabetes mellitus (Chronic) E11.9 uncontrolled GERD (gastroesophageal reflux disease) (Chronic) K21.9 Anxiety (Chronic) F41.9 Insomnia (Chronic) G47.00 Osteoporosis M81.0 Cardiomyopathy (Ruled-out) I42.9 EF in Oct 2015 45-50 Left ankle pain (Inactive) M25.572 Non-compliance (Inactive) Z91.19 withn follow up with pulmonary Allergies venom-honey bee [bee venom (honey bee)] Allergy (Verified 08/20/17 22:28) Swelling levofloxacin [From Levaquin] Adverse Reaction (Verified 08/20/17 22:28) Nausea oxycodone HCl [From Percocet] Adverse Reaction (Verified 08/20/17 22:28) Nausea Penicillins Adverse Reaction (Verified 08/20/17 22:28) Nausea/Vom/Diarrhea Home Medications: Ambulatory Orders Medication Instructions Recorded Acetaminophen [Tylenol] 2 tab PO Q6H PRN 05/12/17 Albuterol Aerosols [Ventolin 2.5 mg INHALATION Q2H PRN PRN 05/12/17 Aerosols] Atorvastatin Calcium [Lipitor] 40 mg PO QHS 05/12/17 Budesonide/Formoterol 160/4.5 2 puff INHALATION BID 05/12/17 [Symbicort 160/4.5 Mcg Inhaler (SP)] Bupropion HCl [Bupropion HCl Sr] 150 mg PO BID 05/12/17 Buspirone HCl 10 mg PO TID 05/12/17 Digoxin 250 mcg PO DAILY 05/12/17 Diltiazem [Cardizem] 120 mg PO BID 05/12/17 Docusate Sodium [Colace] 100 mg PO QHS 05/12/17 Famotidine [Pepcid] 20 mg PO BID 05/12/17 Furosemide [Lasix] 40 mg PO BID 05/12/17 Glucagon,Human Recombinant 1 mg IM PRN PRN 05/12/17 [Glucagon Emergency Kit] Guaifenesin [Mucinex] 1,200 mg PO BID 05/12/17 Insulin Glargine,Hum.rec.anlog 55 unit SQ QHS 05/12/17 [Basaglar Kwikpen U-100] Insulin Lispro [Humalog] 12 unit SQ TIDCM 05/12/17 Ipratropium/Albuterol Sulfate 3 ml INHALATION Q4H.RT 05/12/17 [Duoneb] Lisinopril [Prinivil] 5 mg PO DAILY 05/12/17 Potassium Chloride [K-Dur] 10 meq PO BID 05/12/17 Propranolol HCl [Inderal (Beta 10 mg PO BID 05/12/17 Rubén)] Rivaroxaban [Xarelto] 20 mg PO DAILY 05/12/17 Sennosides/Docusate Sodium 2 tab PO DAILY PRN PRN 05/12/17 [Senna-Docusate Sodium Tablet] Benzonatate [Tessalon Perle] 100 mg PO TID PRN PRN 08/11/17 Hydrocodone Bitart/Apap 5-325 1 tab PO Q6H PRN PRN 08/11/17 [[place] 5/325] Mag Hydrox/Al Hydrox/Simeth 30 ml PO Q6H PRN PRN 08/11/17 [Mylanta II] Nitroglycerin [Nitrostat] 0.4 mg SL PRN PRN 08/11/17 Polyethylene Glycol 3350 [Miralax] 17 gm PO PRN PRN 08/11/17 Prednisone See Taper PO DAILY #30 tab 08/12/17 Surgical History: Surgical History (Last Reviewed 08/21/17 @ 01:02 by Favian Montalvo DO) Cataract extraction status Z98.49 History of lumbar surgery Z98.890 History of tonsillectomy and adenoidectomy Z98.890 History of total hysterectomy Z90.710 Surgical History: hysterectomy, tonsillectomy, - - Lumbar surgery. 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 Sibling Family History: Family History (Last Reviewed 08/21/17 @ 01:03 by Favian Montalvo DO) Sister Arthritis Diabetes Father Cancer Aunt Diabetes History Items: Asthma, COPD, Hypertension Review of Systems Constitutional: Denies: Anorexia, Chills, Fever, Night Sweats Eyes: Denies: Vision Change HEENT: Denies: Difficulty Swallowing, Head Aches, Sinus Congestion, Sinus Drainage, Sore Throat Cardiovascular: Reports: Chest Pain - left chest and reproducible with palpation. Denies: Edema, Light Headedness, Orthopnea, Palpitations, Syncope Respiratory: Reports: Cough, Shortness of Breath, Shortness of breath at rest, Shortness of breath upon exertion. Denies: Sputum production Gastrointestinal: Denies: Abdominal Pain, Nausea, Vomiting Genitourinary: Denies: Dysuria Musculoskeletal: Denies: Joint Pain, Joint Tenderness Skin: Reports: - - telangiectasias of the face, back and chest. Denies: Jaundice Neurological: Denies: Numbness, Tingling, Focal weakness Psychiatric: Reports: Anxiety, Depression Endocrine: Denies: Change in Body Habitus Hematologic/ Lymphatic: Denies: Hx of blood clot VTE Information - Inpt Only VTE Present on Admission: No VTE Mechan Device Prophylaxis: SCD's, Knee High CRISTHIAN Hose VTE Pharm Prophylaxis ordered?: Yes Patient Problems: Active and Suspected Problems (Last Reviewed 08/21/17 @ 01:02 by Favian Montalvo DO) Acute exacerbation of chronic obstructive pulmonary disease (COPD) (Acute) - Physical Exam General: Alert, Oriented x3, No apparent distress, Non-Cooperative - dismissive and reluctant to even sit up in bed so I could listen to her lungs HEENT: Atraumatic, PERRLA, EOMI, Normocephalic Oral: Moist Mucosa, No Gingival or Mucosal Lesions/ Ulcerations Neck: Supple, No JVD, No Nodes, Trachea Midline Lungs: No rales, Diminished, Wheezes, - - Not tachypneic, no conversational dyspnea, no accessory muscle use, she was resting flat in bed when I entered the room and appeared to be in no acute distress. Cardiovascular: Normal S1, Normal S2, No murmurs, Irregular Rate - With controlled ventricular response, No Gallop Abdomen: Bowel Sounds Present, Soft, Non Tender, Non-Distended, Obese Extremities: No cyanosis, No edema, No Calf Tenderness, Diminished Peripheral Pulses Skin: - - She has facial telangiectasias and also telangiectasias of the chest and upper back. Neurological: Cranial nerves II-XII grossly intact, Neuro grossly intact Psych/Mental Status: Agitated - and rude Vital Signs Temp Pulse Resp BP Pulse Ox 98.2 F 84 16 140/75 H 97 08/20/17 22:24 08/21/17 00:28 08/21/17 00:28 08/21/17 00:28 08/21/17 00:28 Oxygen Flow Rate (L/min) 2 Oxygen Delivery Method Nasal Cannula Weight: 210 lb Body Mass Index (BMI) 39.6 Finger Stick Blood Glucose 364 Laboratory Tests Past 24 Hrs 08/20/17 08/20/17 08/20/17 22:37 22:37 22:37 WBC 24.9 H RBC 4.64 Hgb 11.8 L Hct 37.5 MCV 80.8 L MCH 25.4 L MCHC 31.5 L RDW 18.3 H RDW Differential 54.4 H Plt Count 422 MPV 10.2 Immature Gran % (Auto) 0.900 Neut % (Auto) 66.5 Lymph % (Auto) 24.7 [place] % (Auto) 7.3 Eos % (Auto) 0.5 Baso % (Auto) 0.1 Absolute Neuts (auto) 16.6 H Absolute Lymphs (auto) 6.17 H Total Counted Not Reportable Differential Comment Diff Path Review June foll PT 17.1 H INR 1.4 APTT 32.1 Sodium 137 Potassium 5.1 Chloride 101 Carbon Dioxide 29.0 Anion Gap 7 BUN 19 H Creatinine 0.81 Estim Creat Clear Calc 54.34 Est GFR (MDRD) Af Amer 93 Est GFR (MDRD) Non-Af 77 BUN/Creatinine Ratio 23.6 H Glucose 160 H Lactic Acid Calcium 8.7 Troponin I < 0.015 B-Natriuretic Peptide 08/20/17 08/20/17 22:37 23:58 WBC RBC Hgb Hct MCV MCH MCHC RDW RDW Differential Plt Count MPV Immature Gran % (Auto) Neut % (Auto) Lymph % (Auto) [place] % (Auto) Eos % (Auto) Baso % (Auto) Absolute Neuts (auto) Absolute Lymphs (auto) Total Counted Differential Comment Diff Path Review PT INR APTT Sodium Potassium Chloride Carbon Dioxide Anion Gap BUN Creatinine Estim Creat Clear Calc Est GFR (MDRD) Af Amer Est GFR (MDRD) Non-Af BUN/Creatinine Ratio Glucose Lactic Acid 1.8 Calcium Troponin I B-Natriuretic Peptide 10.6 Assessment/Plan All Active Problems (Last Reviewed 08/21/17 @ 01:02 by Favian Montalvo DO) Acute exacerbation of chronic obstructive pulmonary disease (COPD) (Acute) Syncope (Acute) Chest pain (Acute) Chest pain (Acute) COPD (chronic obstructive pulmonary disease) (Acute) Acute and chronic respiratory failure with hypoxia (Resolved) Acute bronchitis due to human metapneumovirus (Resolved) Atrial fibrillation with RVR (Resolved) COPD with acute exacerbation (Resolved) Gram-negative pneumonia (Resolved) Cardiomyopathy (Ruled-out) Impressions 1. acute exacerbation of COPD 2. musculoskeletal CP with recent negative stress 3. Tobacco dependence 4. Chronic respiratory failure with hypoxemia-noncompliant with oxygen at the halfway 5. Severe COPD 6. Chronic pain syndrome 7. Chronic atrial fibrillation 8. Hyperlipidemia 9. Diabetes mellitus type 2-chronically uncontrolled 10. GERD 11. Morbid obesity 12. suspected personality disorder CXR - no infiltrates Sputum for GM stain C&S Around the clock aerosol treatments and Q 2H ALbuterol aerosols for wheezing/SOB Prednisone 40 mg daily Mucinex Incentive spirometry PEP therapy DVT prophylaxis Ambulatory pulse ox prior to DC Check a dig level No need for antibiotics - she has no infiltrates, no rales and is afebrile. The elevation in the WBC count is likely due to the prednisone taper she is still on from her recent admission on 08/10 with Dc on 08/12 No need for serial CE's or stress......stress recently negative and the pain is reproducible Smoking cessation counselling once again given. Tells me that she has not followed up with pulmonary because they have not made an appt for me Code Visit OBSV E&M: 36567 Initial observation care L3
[2017-08-21 01:54] LABS: Ferritin 12 ng/mL (8-252); Iron 76 ug/dL (50-170); Iron Binding Capacity,Total 493 ug/dL (250-450); PERCENT IRON SATURATION 15.4 % (15.0-55.0)
[2017-08-21 02:26] LABS: Allen Test POS; Base Excess 5 mmol/L (-2 to +2); Bicarbonate 29.6 mmol/L (22-26); Blood Gas Specimen Type ART; O2 Delivery Device Nasal Can; PO2 70 mmHG (75-100); SITE R Radial; SO2 94 % (95-99); Time Given 215; Total Carbon Dioxide 31 mmol/L; pCO2 43.8 mmHg (35-45); pH 7.44 (7.35-7.45)
[2017-08-21] MEDS: HYDROcodone Bitartrate/Apap 5/325 Tablet PO ×3 (02:29→17:22)
[2017-08-21 02:41] LABS: Bedside Glucose 108 mg/dL (70-110)
[2017-08-21] MEDS: predniSONE 10 MG Tablet 40 MG PO (02:51)
[2017-08-21 03:06] LABS: Digoxin Level 1.08 ng/mL (0.80-2.00)
[2017-08-21] MEDS: busPIRone 5 MG Tablet 10 MG PO ×3 (05:25→21:09)
[2017-08-21] MEDS: Ipratropium/Albuterol Sulfate 3 ML AMPUL.NEB INHALATION ×4 (06:53→22:35)
[2017-08-21] MEDS: Insulin Lispro 100 UNIT/ML INSULN.PEN 12 UNIT SC ×3 (08:09→15:33)
[2017-08-21 08:16] LABS: Bedside Glucose 240 mg/dL (70-110)
--- NOTE | 2017-08-21 09:01 | ED.VISSUMM ---
- ER Visit Summary Date of Service: 08/21/17 Chief Complaint: Chest pain History of Present Illness: The patient is a 62 F who presents for 2 hours of chest pain, onset at rest. Patient states she was sitting in a chair when she suddenly had left-sided chest pain. It is located in the lateral chest and nonradiating. It is sharp and severe. Worse with movement and breathing. Patient was given 3 nitros and 4 aspirin by EMS. Patient has associated shortness of breath. Denies fever, abdominal pain, cough, nausea or vomiting, back pain. Patient has history of coronary artery disease, CHF, COPD, diabetes and hypertension. Patient is on Xarelto. Physical Examination: Vital signs: afebrile, hemodynamically stable, no hypoxia on room air General: well nourished, well developed, in no distress, agitated Skin: warm, dry, no rash, no pallor HEENT: normocephalic and atraumatic; PERRL, EOMI, moist mucous membranes Cardiovascular: regular rate and rhythm without murmurs, no peripheral edema, 2+ pulses all distal extremities, 1+ symmetric pitting edema in the lower extremities. Chest is tender in the left lateral chest, no vesicular rash noted. Respiratory: Patient has diffuse wheezing and rhonchi on the left lower field. Abdominal: Abdomen is soft, nontender with normoactive bowel sounds, no guarding or rebound, no masses MSK: Moves all extremities, no deformities, normal strength Neuro: Awake and alert, oriented ?4. No facial droop, sensation and motor function intact and symmetric Test Results: Abnormal Lab Results 08/20/17 08/20/17 08/20/17 22:37 22:37 22:37 WBC 24.9 H RBC 4.64 Hgb 11.8 L Hct 37.5 MCV 80.8 L MCH 25.4 L MCHC 31.5 L RDW 18.3 H RDW Differential 54.4 H Plt Count 422 MPV 10.2 Immature Gran % (Auto) 0.900 Neut % (Auto) 66.5 Lymph % (Auto) 24.7 [place] % (Auto) 7.3 Eos % (Auto) 0.5 Baso % (Auto) 0.1 Absolute Neuts (auto) 16.6 H Absolute Lymphs (auto) 6.17 H Total Counted Not Reportable Differential Comment Diff Path Review May foll PT 17.1 H INR 1.4 APTT 32.1 Specimen Type Sample Site pH Bicarbonate Actual POC Total CO2 Base Excess O2 Saturation ABG pCO2 ABG pO2 Dao Test O2 Delivery Device Liter Flow Blood Gas Notified Whom Blood Gas Notified Time Sodium 137 Potassium 5.1 Chloride 101 Carbon Dioxide 29.0 Anion Gap 7 BUN 19 H Creatinine 0.81 Estim Creat Clear Calc 54.34 Est GFR (MDRD) Af Amer 93 Est GFR (MDRD) Non-Af 77 BUN/Creatinine Ratio 23.6 H Glucose 160 H Lactic Acid Calcium 8.7 Iron TIBC Iron Saturation Ferritin Troponin I < 0.015 B-Natriuretic Peptide Digoxin POC Glucose 08/20/17 08/20/17 08/20/17 22:37 22:37 23:58 WBC RBC Hgb Hct MCV MCH MCHC RDW RDW Differential Plt Count MPV Immature Gran % (Auto) Neut % (Auto) Lymph % (Auto) [place] % (Auto) Eos % (Auto) Baso % (Auto) Absolute Neuts (auto) Absolute Lymphs (auto) Total Counted Differential Comment Diff Path Review PT INR APTT Specimen Type Sample Site pH Bicarbonate Actual POC Total CO2 Base Excess O2 Saturation ABG pCO2 ABG pO2 Dao Test O2 Delivery Device Liter Flow Blood Gas Notified Whom Blood Gas Notified Time Sodium Potassium Chloride Carbon Dioxide Anion Gap BUN Creatinine Estim Creat Clear Calc Est GFR (MDRD) Af Amer Est GFR (MDRD) Non-Af BUN/Creatinine Ratio Glucose Lactic Acid 1.8 Calcium Iron 76 TIBC 493 H Iron Saturation 15.4 Ferritin 12 Troponin I B-Natriuretic Peptide 10.6 Digoxin POC Glucose 08/21/17 08/21/17 08/21/17 02:05 02:21 02:34 WBC RBC Hgb Hct MCV MCH MCHC RDW RDW Differential Plt Count MPV Immature Gran % (Auto) Neut % (Auto) Lymph % (Auto) [place] % (Auto) Eos % (Auto) Baso % (Auto) Absolute Neuts (auto) Absolute Lymphs (auto) Total Counted Differential Comment Diff Path Review PT INR APTT Specimen Type ART Sample Site R Radial pH 7.44 Bicarbonate Actual 29.6 H POC Total CO2 31 Base Excess 5 H O2 Saturation 94 L ABG pCO2 43.8 ABG pO2 70 L Dao Test POS O2 Delivery Device Nasal Can Liter Flow 2.0 Blood Gas Notified Whom [facility] Blood Gas Notified Time 215 Sodium Potassium Chloride Carbon Dioxide Anion Gap BUN Creatinine Estim Creat Clear Calc Est GFR (MDRD) Af Amer Est GFR (MDRD) Non-Af BUN/Creatinine Ratio Glucose Lactic Acid Calcium Iron TIBC Iron Saturation Ferritin Troponin I B-Natriuretic Peptide Digoxin 1.08 POC Glucose 108 08/21/17 08:01 WBC RBC Hgb Hct MCV MCH MCHC RDW RDW Differential Plt Count MPV Immature Gran % (Auto) Neut % (Auto) Lymph % (Auto) [place] % (Auto) Eos % (Auto) Baso % (Auto) Absolute Neuts (auto) Absolute Lymphs (auto) Total Counted Differential Comment Diff Path Review PT INR APTT Specimen Type Sample Site pH Bicarbonate Actual POC Total CO2 Base Excess O2 Saturation ABG pCO2 ABG pO2 Dao Test O2 Delivery Device Liter Flow Blood Gas Notified Whom Blood Gas Notified Time Sodium Potassium Chloride Carbon Dioxide Anion Gap BUN Creatinine Estim Creat Clear Calc Est GFR (MDRD) Af Amer Est GFR (MDRD) Non-Af BUN/Creatinine Ratio Glucose Lactic Acid Calcium Iron TIBC Iron Saturation Ferritin Troponin I B-Natriuretic Peptide Digoxin POC Glucose 240 H Clinical Impression(s) from Imaging Studies Chest X-Ray 08/20/17 22:50 IMPRESSION: No acute cardiopulmonary pathology Electronically Signed: Moses Diamond MD at 23:14 EDT , Service support , Emergency Department Course and Treatment: Patient presents with chest pain, but it is not typical for cardiac chest pain, as it is localized to the lateral chest with sharp nature and reproducible to light palpation. Patient has no evidence on exam of zoster. Patient recently had admission with thorough cardiac workup that was unremarkable. Chest x-ray showed chronic changes but no infiltrates. EKG showed no acute ischemic changes, no change from prior EKG. Patient was in atrial flutter. Troponin negative initially. Patient was given breathing treatments given the wheezing and complaint of shortness of breath. Concern for COPD exacerbation and pneumonia moreso than an acute coronary syndrome. Patient had some improvement in her respiratory effort with the breathing treatments but still stated she was having the chest pain and shortness of breath. Patient is already on steroids and was not given any further prednisone. She does have a significant white count, which may be due to her current steroid use versus infectious etiology. Patient was given Rocephin given the acute COPD exacerbation with concern for possible underlying pneumonia. Patient was discussed with Dr. Montalvo and admitted observation status for further treatment of her COPD. Treatment Plan: [] Disposition: [] Impression: Acute COPD exacerbation This note was generated with LessThan[employer] dictation software. It may contain incorrect words, spelling, and punctuation that were not noted in review of the chart prior to signing ED Disposition - Plan for ED Patient: Disposition: Acute Care Hospital [facility] Chief Complaint: Chest Pain
--- NOTE | 2017-08-21 09:07 | ED.DCSUM_ITS ---
- ER Visit Summary Date of Service: 08/21/17 Chief Complaint: Chest pain History of Present Illness: The patient is a 62 F who presents for 2 hours of chest pain, onset at rest. Patient states she was sitting in a chair when she suddenly had left-sided chest pain. It is located in the lateral chest and nonradiating. It is sharp and severe. Worse with movement and breathing. Patient was given 3 nitros and 4 aspirin by EMS. Patient has associated shortness of breath. Denies fever, abdominal pain, cough, nausea or vomiting, back pain. Patient has history of coronary artery disease, CHF, COPD, diabetes and hypertension. Patient is on Xarelto. Physical Examination: Vital signs: afebrile, hemodynamically stable, no hypoxia on room air General: well nourished, well developed, in no distress, agitated Skin: warm, dry, no rash, no pallor HEENT: normocephalic and atraumatic; PERRL, EOMI, moist mucous membranes Cardiovascular: regular rate and rhythm without murmurs, no peripheral edema, 2 + pulses all distal extremities, 1+ symmetric pitting edema in the lower extremities. Chest is tender in the left lateral chest, no vesicular rash noted. Respiratory: Patient has diffuse wheezing and rhonchi on the left lower field. Abdominal: Abdomen is soft, nontender with normoactive bowel sounds, no guarding or rebound, no masses MSK: Moves all extremities, no deformities, normal strength Neuro: Awake and alert, oriented ?4. No facial droop, sensation and motor function intact and symmetric Test Results: Abnormal Lab Results 08/20/17 08/20/17 08/20/17 22:37 22:37 22:37 WBC 24.9 H RBC 4.64 Hgb 11.8 L Hct 37.5 MCV 80.8 L MCH 25.4 L MCHC 31.5 L RDW 18.3 H RDW Differential 54.4 H Plt Count 422 MPV 10.2 Immature Gran % (Auto) 0.900 Neut % (Auto) 66.5 Lymph % (Auto) 24.7 [place] % (Auto) 7.3 Eos % (Auto) 0.5 Baso % (Auto) 0.1 Absolute Neuts (auto) 16.6 H Absolute Lymphs (auto) 6.17 H Total Counted Not Reportable Differential Comment Diff Path Review May foll PT 17.1 H INR 1.4 APTT 32.1 Specimen Type Sample Site pH Bicarbonate Actual POC Total CO2 Base Excess O2 Saturation ABG pCO2 ABG pO2 Dao Test O2 Delivery Device Liter Flow Blood Gas Notified Whom Blood Gas Notified Time Sodium 137 Potassium 5.1 Chloride 101 Carbon Dioxide 29.0 Anion Gap 7 BUN 19 H Creatinine 0.81 Estim Creat Clear Calc 54.34 Est GFR (MDRD) Af Amer 93 Est GFR (MDRD) Non-Af 77 BUN/Creatinine Ratio 23.6 H Glucose 160 H Lactic Acid Calcium 8.7 Iron TIBC Iron Saturation Ferritin Troponin I < 0.015 B-Natriuretic Peptide Digoxin POC Glucose 08/20/17 08/20/17 08/20/17 22:37 22:37 23:58 WBC RBC Hgb Hct MCV MCH MCHC RDW RDW Differential Plt Count MPV Immature Gran % (Auto) Neut % (Auto) Lymph % (Auto) [place] % (Auto) Eos % (Auto) Baso % (Auto) Absolute Neuts (auto) Absolute Lymphs (auto) Total Counted Differential Comment Diff Path Review PT INR APTT Specimen Type Sample Site pH Bicarbonate Actual POC Total CO2 Base Excess O2 Saturation ABG pCO2 ABG pO2 Dao Test O2 Delivery Device Liter Flow Blood Gas Notified Whom Blood Gas Notified Time Sodium Potassium Chloride Carbon Dioxide Anion Gap BUN Creatinine Estim Creat Clear Calc Est GFR (MDRD) Af Amer Est GFR (MDRD) Non-Af BUN/Creatinine Ratio Glucose Lactic Acid 1.8 Calcium Iron 76 TIBC 493 H Iron Saturation 15.4 Ferritin 12 Troponin I B-Natriuretic Peptide 10.6 Digoxin POC Glucose 08/21/17 08/21/17 08/21/17 02:05 02:21 02:34 WBC RBC Hgb Hct MCV MCH MCHC RDW RDW Differential Plt Count MPV Immature Gran % (Auto) Neut % (Auto) Lymph % (Auto) [place] % (Auto) Eos % (Auto) Baso % (Auto) Absolute Neuts (auto) Absolute Lymphs (auto) Total Counted Differential Comment Diff Path Review PT INR APTT Specimen Type ART Sample Site R Radial pH 7.44 Bicarbonate Actual 29.6 H POC Total CO2 31 Base Excess 5 H O2 Saturation 94 L ABG pCO2 43.8 ABG pO2 70 L Dao Test POS O2 Delivery Device Nasal Can Liter Flow 2.0 Blood Gas Notified Whom [facility] Blood Gas Notified Time 215 Sodium Potassium Chloride Carbon Dioxide Anion Gap BUN Creatinine Estim Creat Clear Calc Est GFR (MDRD) Af Amer Est GFR (MDRD) Non-Af BUN/Creatinine Ratio Glucose Lactic Acid Calcium Iron TIBC Iron Saturation Ferritin Troponin I B-Natriuretic Peptide Digoxin 1.08 POC Glucose 108 08/21/17 08:01 WBC RBC Hgb Hct MCV MCH MCHC RDW RDW Differential Plt Count MPV Immature Gran % (Auto) Neut % (Auto) Lymph % (Auto) [place] % (Auto) Eos % (Auto) Baso % (Auto) Absolute Neuts (auto) Absolute Lymphs (auto) Total Counted Differential Comment Diff Path Review PT INR APTT Specimen Type Sample Site pH Bicarbonate Actual POC Total CO2 Base Excess O2 Saturation ABG pCO2 ABG pO2 Dao Test O2 Delivery Device Liter Flow Blood Gas Notified Whom Blood Gas Notified Time Sodium Potassium Chloride Carbon Dioxide Anion Gap BUN Creatinine Estim Creat Clear Calc Est GFR (MDRD) Af Amer Est GFR (MDRD) Non-Af BUN/Creatinine Ratio Glucose Lactic Acid Calcium Iron TIBC Iron Saturation Ferritin Troponin I B-Natriuretic Peptide Digoxin POC Glucose 240 H Clinical Impression(s) from Imaging Studies Chest X-Ray 08/20/17 22:50 IMPRESSION: No acute cardiopulmonary pathology Electronically Signed: Moses Diamond MD at 23:14 EDT , Service support , Emergency Department Course and Treatment: Patient presents with chest pain, but it is not typical for cardiac chest pain, as it is localized to the lateral chest with sharp nature and reproducible to light palpation. Patient has no evidence on exam of zoster. Patient recently had admission with thorough cardiac workup that was unremarkable. Chest x-ray showed chronic changes but no infiltrates. EKG showed no acute ischemic changes, no change from prior EKG. Patient was in atrial flutter. Troponin negative initially. Patient was given breathing treatments given the wheezing and complaint of shortness of breath. Concern for COPD exacerbation and pneumonia moreso than an acute coronary syndrome. Patient had some improvement in her respiratory effort with the breathing treatments but still stated she was having the chest pain and shortness of breath. Patient is already on steroids and was not given any further prednisone. She does have a significant white count, which may be due to her current steroid use versus infectious etiology. Patient was given Rocephin given the acute COPD exacerbation with concern for possible underlying pneumonia. Patient was discussed with Dr. Montalvo and admitted observation status for further treatment of her COPD. Treatment Plan: [] Disposition: [] Impression: Acute COPD exacerbation This note was generated with [employer] dictation software. It may contain incorrect words, spelling, and punctuation that were not noted in review of the chart prior to signing ED Disposition - Plan for ED Patient: Disposition: Acute Care Hospital [facility] Chief Complaint: Chest Pain
[2017-08-21] MEDS: Furosemide 40 MG Tablet PO ×2 (09:43→21:09)
[2017-08-21] MEDS: Digoxin 250 MCG Tablet PO (09:43)
[2017-08-21] MEDS: Rivaroxaban 20 MG Tablet PO (09:43)
[2017-08-21] MEDS: dilTIAZem 60 MG Tablet 120 MG PO ×2 (09:43→21:08)
[2017-08-21] MEDS: buPROPion (SR) 150 MG Tablet.SA PO ×2 (09:43→21:08)
[2017-08-21] MEDS: Lisinopril 5 MG Tablet PO (09:44)
[2017-08-21] MEDS: guaiFENesin 1,200 MG Tablet 1200 MG PO ×2 (09:44→21:08)
[2017-08-21] MEDS: Famotidine 20 MG Tablet PO ×2 (09:44→21:09)
[2017-08-21] MEDS: Ferrous Sulfate 325 MG Tablet PO ×2 (09:44→15:33)
[2017-08-21] MEDS: Propranolol 10 MG Tablet PO ×2 (09:53→21:09)
[2017-08-21] MEDS: 0.9% NaCl Peripheral Flush Adult/Peds IV (09:54)
--- NOTE | 2017-08-21 10:24 | CASEMGMT ---
Social Work Note Pt is from [facility]. LUIS met with pt. LUIS introduced self and role at [facility]. Pt is alert and orientated x3. Pt confirms that she is from [facility] and her plan is to return there at discharge. Pt denied additional needs or concerns at this time. LUIS placed a call to [facility] and spoke with HEIDI Del Toro. Katey confirms that pt is from [facility] and she is able to return at discharge. LUIS informed Katey that pt should be discharged tomorrow. Green sheet on chart. Plan: Pt to return to [facility] when medically cleared Madeline Dominguez [employer], PHYSICAL SCIENCE AIDE
--- NOTE | 2017-08-21 11:01 | PN_ITS ---
Patient Problems: Active and Suspected Problems (Last Reviewed 08/21/17 @ 01:02 by Favian Montalvo DO) Acute exacerbation of chronic obstructive pulmonary disease (COPD) (Acute) Subjective: Patient complains of general malaise, shortness of breath and feeling very hot. Vitals/I&O's: Vital Signs Temp Pulse Resp BP Pulse Ox 98.0 F 96 20 H 127/62 H 95 08/21/17 09:34 08/21/17 09:34 08/21/17 09:34 08/21/17 09:34 08/21/17 09:34 Oxygen Flow Rate (L/min) 2 Oxygen Delivery Method Nasal Cannula Weight: 92.9 kg Body Mass Index (BMI) 38.7 Intake and Output for Last 24 Hours 08/19/17 08/20/17 08/21/17 23:59 23:59 23:59 Intake Total 240 / 240 Balance 240 / 240 General: Alert, Oriented x3 HEENT: Atraumatic, Normocephalic Neck: Supple, No JVD Lungs: Wheezes Cardiovascular: Regular rate, No murmurs Abdomen: Bowel Sounds Present, Soft, Non Tender Extremities: No edema, Capillary Refill Less than 3 Seconds Skin: No rashes, No breakdown Musculoskeletal: No Tenderness to Palpation of Joints or Extremities Neurological: - - Patient was not cooperative with care. No extensive neuro exams was done Psych/Mental Status: Flat Affect Laboratory Results 08/21/17 02:05: Digoxin 1.08 08/21/17 02:21: Specimen Type ART, Sample Site R Radial, pH 7.44, Bicarbonate Actual 29.6 H, POC Total CO2 31, Base Excess 5 H, O2 Saturation 94 L, ABG pCO2 43.8, ABG pO2 70 L, Dao Test POS, O2 Delivery Device Nasal Can, Liter Flow 2.0 , Blood Gas Notified Whom HOSP , Blood Gas Notified Time 215 08/21/17 02:34: POC Glucose 108 08/21/17 08:01: POC Glucose 240 H Current Medications Acetaminophen (Tylenol) 650 mg PO Q6H PRN PRN PRN Reason: PAIN/TEMP Hydrocodone Bitart/Acetaminophen ([place] 5mg-325mg) 1 tablet PO Q6H PRN PRN PRN Reason: PAIN Al Hydroxide/Mg Hydroxide (Mylanta Ii) 30 ml PO Q6H PRN PRN PRN Reason: DYSPEPSIA/INDIGESTION Albuterol Sulfate (Ventolin Aerosols) 2.5 mg INHALATION Q2H PRN PRN PRN Reason: COUGH/SOB Albuterol/Ipratropium (Duoneb) 3 ml INHALATION Q4H.RT [facility] Last Admin: 08/21/17 06:53 Dose: 3 ml Atorvastatin Calcium (Lipitor) 40 mg PO QHS [facility] Bupropion HCl (Wellbutrin Sr (150mg Tablets)) 150 mg PO BID [facility] Last Admin: 08/21/17 09:43 Dose: 150 mg Buspirone HCl (Buspar) 10 mg PO TID [facility] Last Admin: 08/21/17 05:25 Dose: 10 mg Digoxin (Lanoxin) 250 mcg PO DAILY [facility] Last Admin: 08/21/17 09:43 Dose: 250 mcg Diltiazem HCl (Cardizem) 120 mg PO BID [facility] Last Admin: 08/21/17 09:43 Dose: 120 mg Docusate Sodium (Colace) 100 mg PO QHS [facility] Famotidine (Pepcid) 20 mg PO BID [facility] Last Admin: 08/21/17 09:44 Dose: 20 mg Ferrous Sulfate ([facility] S[facility]) [facility] Last Admin: 08/21/17 09:44 Dose: 325 mg Furosemide (Lasix) 40 mg PO BID [facility] Last Admin: 08/21/17 09:43 Dose: 40 mg Guaifenesin (Mucinex) 1,200 mg PO BID [facility] Last Admin: 08/21/17 09:44 Dose: 1,200 mg Sodium Chloride () 250 mls @ 15 mls/hr IV .[id number] PRN PRN Reason: SALINE FLUSH Azithromycin 500 mg/ Dextrose 255 mls @ 250 mls/hr IV Q24 [facility] Last Admin: 08/21/17 09:53 Dose: 250 mls/hr Insulin Glargine (Lantus (Bkc)) 55 units SC QHS [facility] Insulin Human Lispro (Humalog Kwikpen (Bkc)) 12 unit SC 0800,1200,1700 [facility] Last Admin: 08/21/17 08:09 Dose: 12 u Lisinopril (Zestril) 5 mg PO DAILY [facility] Last Admin: 08/21/17 09:44 Dose: 5 mg Magnesium Hydroxide (Milk Of Magnesia) 30 ml PO DAILY PRN PRN PRN Reason: Constipation Nitroglycerin (Nitrostat) 0.4 mg SUBLINGUAL PRN PRN PRN Reason: CARDIAC/CHEST PAIN Ondansetron HCl (Zofran) 4 mg IV Q8H PRN PRN PRN Reason: Nausea Polyethylene Glycol (Miralax) 17 gm PO DAILY PRN PRN PRN Reason: CONSTIPATION Prednisone () 40 mg PO DAILY@0800 [facility] PRN Reason: Taper Stop: 09/02/17 07:59 Propranolol HCl (Inderal) 10 mg PO BID [facility] Last Admin: 08/21/17 09:53 Dose: 10 mg Rivaroxaban (Xarelto) 20 mg PO DAILY [facility] Last Admin: 08/21/17 09:43 Dose: 20 mg Senna/Docusate Sodium (Senokot-S, Esteafnia-Colace) 2 tablet PO DAILY PRN PRN PRN Reason: Constipation Sodium Chloride () 5 - 30 ml IV UD PRN PRN Reason: SALINE FLUSH Last Admin: 08/21/17 09:54 Dose: 20 ml Medical Necessity - Tobacco Use Smoking Status: Current every day smoker Tobacco Use: Cigarettes Assessment/Plan All Active Problems (Last Reviewed 08/21/17 @ 01:02 by Favian Montalvo DO) Acute exacerbation of chronic obstructive pulmonary disease (COPD) (Acute) Syncope (Acute) Chest pain (Acute) Chest pain (Acute) COPD (chronic obstructive pulmonary disease) (Acute) Acute and chronic respiratory failure with hypoxia (Resolved) Acute bronchitis due to human metapneumovirus (Resolved) Atrial fibrillation with RVR (Resolved) COPD with acute exacerbation (Resolved) Gram-negative pneumonia (Resolved) Cardiomyopathy (Ruled-out) This is a 62-year-old female with a significant history of hypertension, diabetes type 2, COPD, chronic pain syndrome, tobacco abuse, chronic anticoagulation with Xarelto [facility]. She has had frequent chest pain but workup so far has been negative. Her chest pain is likely due to a coughing secondary to COPD exacerbation. Acute exacerbation of COPD Will continue prednisone 40 mg daily Continue incentive spirometer Continue pep therapy Incentive spirometer Scheduled DuoNeb Albuterol as needed We will add azithromycin to her regimen since she appears not to be getting better and she has a leukocytosis. However her leukocytosis could also be explained by her steroid therapy Continue home Symbicort Chronic atrial fibrillation Continue digoxin continue Cardizem. Smoking cessation counselling Anxiety/ Depression Continue Wellbutrin and BuSpar. Diabetes mellitus Her blood glucose is not controlled. Patient is currently on basal and prandial insulin regimen. We will add a correction dose to her regimen. Hypertension Continue home lisinopril continue propranolol DVT prophylaxis Not indicated. Patient already on Xarelto. Disposition the patient will remain in the hospital for today. Code Visit Inpatient E&M: 18625 Subs Hosp L2
[2017-08-21 12:06] LABS: Bedside Glucose 289 mg/dL (70-110)
[2017-08-21 15:40] LABS: Bedside Glucose 143 mg/dL (70-110)
[2017-08-21] MEDS: Atorvastatin Calcium 40 MG Tablet PO (21:08)
[2017-08-21] MEDS: Docusate Sodium 100 MG Capsule PO (21:09)
[2017-08-21] MEDS: Insulin Lispro 100 UNIT/ML INSULN.PEN SQ (21:13)
[2017-08-21 22:20] LABS: Bedside Glucose 190 mg/dL (70-110)
[2017-08-22] VITALS (16 sets, daily range): BP systolic 109–130; BP diastolic 55–61; PULSE 56–88; RESP 18–22; TEMP 36.6–36.7; O2SAT 93–96
[2017-08-22] MEDS: HYDROcodone Bitartrate/Apap 5/325 Tablet PO ×5 (00:29→23:45)
[2017-08-22] MEDS: Ipratropium/Albuterol Sulfate 3 ML AMPUL.NEB INHALATION ×5 (03:22→19:02)
[2017-08-22] MEDS: busPIRone 5 MG Tablet 10 MG PO ×3 (06:30→21:22)
[2017-08-22 07:05] LABS: Bedside Glucose 91 mg/dL (70-110)
[2017-08-22] MEDS: Ferrous Sulfate 325 MG Tablet PO ×2 (07:49→17:10)
[2017-08-22] MEDS: Insulin Lispro 100 UNIT/ML INSULN.PEN 12 UNIT SC ×2 (07:49→12:02)
[2017-08-22] MEDS: predniSONE 10 MG Tablet 40 MG PO (07:50)
[2017-08-22] MEDS: dilTIAZem 60 MG Tablet 120 MG PO ×2 (07:50→21:22)
[2017-08-22] MEDS: guaiFENesin 1,200 MG Tablet 1200 MG PO ×2 (07:51→21:22)
[2017-08-22] MEDS: Furosemide 40 MG Tablet PO ×2 (07:51→19:52)
[2017-08-22] MEDS: Rivaroxaban 20 MG Tablet PO (07:52)
[2017-08-22] MEDS: buPROPion (SR) 150 MG Tablet.SA PO ×2 (07:52→21:22)
[2017-08-22] MEDS: Famotidine 20 MG Tablet PO ×2 (07:52→21:22)
[2017-08-22] MEDS: Propranolol 10 MG Tablet PO ×2 (07:53→21:22)
[2017-08-22 08:50] LABS: Hematocrit 37.7 % (37-47); Hemoglobin 11.6 g/dl (12.0-15.0); Mean Corp Hgb Conc 30.8 g/gl (32-36); Mean Corpuscular Hgb 25.2 pg (27.0-32.0); Mean Corpuscular Volume 81.8 fL (81-99); Mean Platelet Vol. 10.1 fl (6.2-12.0); Platelet Count 338 K/mm3 (150-450); RBC Distribution Width CV 18.1 % (11.6-14.6); RBC Distribution Width SD 53.6 fl (35.1-43.9); Red Blood Count 4.61 M/mm3 (4.2-5.4); White Blood Count 17.3 K/mm3 (4.4-11.0)
[2017-08-22 08:53] LABS: Scan Indicated on CBC? Y/N NO
[2017-08-22 09:23] LABS: Anion Gap 8 (5-15); BUN 15 mg/dL (7-18); BUN/Creat Ratio 21.2 RATIO (10-20); Calcium,Total 8.5 mg/dL (8.5-10.1); Chloride 98 mmol/L (98-107); Creatinine, Serum 0.71 mg/dL (0.55-1.02); EST Glomerular Filtration Rate 89 mL/min (>60); Est Glom Filt Rate - Afr Amer 108 mL/min (>60); Estimated Creatinine Clearance 61.99 ml/min; Glucose 80 mg/dL (74-106); Potassium 3.5 mmol/L (3.5-5.1); Sodium Level 137 mmol/L (136-145)
--- NOTE | 2017-08-22 10:10 | CASEMGMT ---
Social Work Note Per nursing pt was requesting a scooter. Ordered PT to evaluate. Discussed with pt that this is something she will need to f/u with her PCP regarding this DME request. States that her PCP is Kristi REID, at [facility] and she will discuss this with her. No further needs at this time. Plan: [facility]. GREEN SHEET on chart. Marie De La Garza, EMOTIONAL DISABILITIES TEACHER, [employer]
[2017-08-22] MEDS: Digoxin 250 MCG Tablet PO (10:18)
--- NOTE | 2017-08-22 10:50 | PN_ITS ---
Patient Problems: Active and Suspected Problems (Last Reviewed 08/21/17 @ 01:02 by Favian Montalvo DO) Acute exacerbation of chronic obstructive pulmonary disease (COPD) (Acute) Subjective: Patient complains of malaise. She states that she has shortness of breath which increases with walking to the bathroom. Vitals/I&O's: Vital Signs Temp Pulse Resp BP Pulse Ox 97.9 F 74 20 H 109/55 L 95 08/22/17 08:00 08/22/17 08:00 08/22/17 09:00 08/22/17 08:00 08/22/17 09:00 Oxygen Flow Rate (L/min) 2 Oxygen Delivery Method Room Air Weight: 92.9 kg Body Mass Index (BMI) 38.7 Intake and Output for Last 24 Hours 08/20/17 08/21/17 08/22/17 23:59 23:59 23:59 Intake Total 1598 / 1598 500 / 500 Output Total 2100 / 2100 1500 / 1500 Balance -502 / -502 -1000 / -1000 General: Alert, Oriented x3, Cooperative HEENT: Atraumatic Neck: Supple, No JVD, Negative Carotid Bruits Lungs: Wheezes Cardiovascular: Regular rate, No murmurs Abdomen: Bowel Sounds Present, Soft, Non Tender Extremities: No edema, Capillary Refill Less than 3 Seconds Skin: No rashes, No breakdown Musculoskeletal: No Tenderness to Palpation of Joints or Extremities Neurological: Cranial nerves II-XII grossly intact Psych/Mental Status: Flat Affect Laboratory Results 08/21/17 11:56: POC Glucose 289 H 08/21/17 15:31: POC Glucose 143 H 08/21/17 21:11: POC Glucose 190 H 08/22/17 06:38: POC Glucose 91 08/22/17 07:40: WBC 17.3 H, RBC 4.61, Hgb 11.6 L, Hct 37.7, MCV 81.8, MCH 25.2 L , MCHC 30.8 L, RDW 18.1 H, RDW Differential 53.6 H, Plt Count 338, MPV 10.1 08/22/17 07:40: Sodium 137, Potassium 3.5, Chloride 98, Carbon Dioxide 31.0, Anion Gap 8, BUN 15, Creatinine 0.71, Estim Creat Clear Calc 61.99, Est GFR ( MDRD) Af Amer 108, Est GFR (MDRD) Non-Af 89, BUN/Creatinine Ratio 21.2 H, Glucose 80, Calcium 8.5 Current Medications Acetaminophen (Tylenol) 650 mg PO Q6H PRN PRN PRN Reason: PAIN/TEMP Hydrocodone Bitart/Acetaminophen ([place]ri[place] 5mg-325mg) 1 tablet PO Q6H PRN PRN PRN Reason: PAIN Last Admin: 08/22/17 06:42 Dose: 1 tablet Al Hydroxide/Mg Hydroxide (Mylanta Ii) 30 ml PO Q6H PRN PRN PRN Reason: DYSPEPSIA/INDIGESTION Albuterol Sulfate (Ventolin Aerosols) 2.5 mg INHALATION Q2H PRN PRN PRN Reason: COUGH/SOB Albuterol/Ipratropium (Duoneb) 3 ml INHALATION Q4H.RT [facility] Last Admin: 08/22/17 07:14 Dose: 3 ml Atorvastatin Calcium (Lipitor) 40 mg PO QHS [facility] Last Admin: 08/21/17 21:08 Dose: 40 mg Benzonatate (Tessalon Perle) 100 mg PO TID PRN PRN PRN Reason: COUGH Bupropion HCl (Wellbutrin Sr (150mg Tablets)) 150 mg PO BID [facility] Last Admin: 08/22/17 07:52 Dose: 150 mg Buspirone HCl (Buspar) 10 mg PO TID [facility] Last Admin: 08/22/17 06:30 Dose: 10 mg Dextrose (D50w Syringe) 0 gm IV X1 PRN; Protocol PRN Reason: Hypoglycemia Digoxin (Lanoxin) 250 mcg PO DAILY [facility] Last Admin: 08/22/17 10:18 Dose: 250 mcg Diltiazem HCl (Cardizem) 120 mg PO BID [facility] Last Admin: 08/22/17 07:50 Dose: 120 mg Docusate Sodium (Colace) 100 mg PO QHS [facility] Last Admin: 08/21/17 21:09 Dose: 100 mg Famotidine (Pepcid) 20 mg PO BID [facility] Last Admin: 08/22/17 07:52 Dose: 20 mg Ferrous Sulfate ([facility] S[facility]ate) [facility] Last Admin: 08/22/17 07:49 Dose: 325 mg Furosemide (Lasix) 40 mg PO BID [facility] Last Admin: 08/22/17 07:51 Dose: 40 mg Glucagon () 1 mg IM .X1 PRN PRN Reason: Hypoglycemia Guaifenesin (Mucinex) 1,200 mg PO BID [facility] Last Admin: 08/22/17 07:51 Dose: 1,200 mg Sodium Chloride () 250 mls @ 15 mls/hr IV .[id number] PRN PRN Reason: SALINE FLUSH Azithromycin 500 mg/ Dextrose 255 mls @ 250 mls/hr IV Q24 [facility] Last Admin: 08/22/17 10:18 Dose: 250 mls/hr Insulin Glargine (Lantus (Bkc)) 55 units SC QHS [facility] Last Admin: 08/21/17 21:09 Dose: 55 units Insulin Human Lispro (Humalog Kwikpen (Bkc)) 12 unit SC 0800,1200,1700 [facility] Last Admin: 08/22/17 07:49 Dose: 12 u Insulin Human Lispro (Humalog Kwikpen (Bkc)) 0 unit SQ ACHS [facility] PRN Reason: Protocol Last Admin: 08/22/17 06:39 Dose: Not Given Lisinopril (Zestril) 5 mg PO DAILY [facility] Last Admin: 08/22/17 10:19 Dose: Not Given Magnesium Hydroxide (Milk Of Magnesia) 30 ml PO DAILY PRN PRN PRN Reason: Constipation Nitroglycerin (Nitrostat) 0.4 mg SUBLINGUAL PRN PRN PRN Reason: CARDIAC/CHEST PAIN Ondansetron HCl (Zofran) 4 mg IV Q8H PRN PRN PRN Reason: Nausea Polyethylene Glycol (Miralax) 17 gm PO DAILY PRN PRN PRN Reason: CONSTIPATION Prednisone () 40 mg PO DAILY@0800 [facility] PRN Reason: Taper Stop: 09/02/17 07:59 Last Admin: 08/22/17 07:50 Dose: 40 mg Propranolol HCl (Inderal) 10 mg PO BID [facility] Last Admin: 08/22/17 07:53 Dose: 10 mg Rivaroxaban (Xarelto) 20 mg PO DAILY [facility] Last Admin: 08/22/17 07:52 Dose: 20 mg Senna/Docusate Sodium (Senokot-S, Estefania-Colace) 2 tablet PO DAILY PRN PRN PRN Reason: Constipation Sodium Chloride () 5 - 30 ml IV UD PRN PRN Reason: SALINE FLUSH Last Admin: 08/21/17 09:54 Dose: 20 ml Medical Necessity - Tobacco Use Smoking Status: Current every day smoker Tobacco Use: Cigarettes Assessment/Plan All Active Problems (Last Reviewed 08/21/17 @ 01:02 by Favian Montalvo DO) Acute exacerbation of chronic obstructive pulmonary disease (COPD) (Acute) Syncope (Acute) Chest pain (Acute) Chest pain (Acute) COPD (chronic obstructive pulmonary disease) (Acute) Acute and chronic respiratory failure with hypoxia (Resolved) Acute bronchitis due to human metapneumovirus (Resolved) Atrial fibrillation with RVR (Resolved) COPD with acute exacerbation (Resolved) Gram-negative pneumonia (Resolved) Cardiomyopathy (Ruled-out) This is a 62-year-old female with a significant history of hypertension, diabetes type 2, COPD, chronic pain syndrome, tobacco abuse, chronic anticoagulation with Xarelto who [facility]. She has had frequent chest pain but workup so far has been negative. Her chest pain is likely due to a coughing secondary to COPD exacerbation. Acute exacerbation of COPD Prednisone 40 mg daily continued Incentive spirometer continued Pep therapy continued Scheduled DuoNeb continued Albuterol as needed Azithromycin was added to her regimen due to persistence of her respiratory symptoms. Home Symbicort continued Leukocytosis This could be due to steroid use, reactive or from pneumonia. Azithromycin continued Chronic atrial fibrillation Xarelto continued Continue digoxin continue Cardizem. Smoking cessation counselling Anxiety/ Depression Continue Wellbutrin and BuSpar. Diabetes mellitus Her blood glucose is not controlled. Patient is currently on basal and prandial insulin regimen. Prandial insulin regimen escalated Correction scale regimen escalated Hypertension Continue home lisinopril continue propranolol DVT prophylaxis Not indicated. Patient already on Xarelto. Disposition the patient will remain in the hospital for today. Code Visit Inpatient E&M: 61997 Subs Hosp L2
[2017-08-22 11:36] LABS: Bedside Glucose 257 mg/dL (70-110)
[2017-08-22] MEDS: Insulin Lispro 100 UNIT/ML INSULN.PEN SQ ×3 (12:02→21:22)
[2017-08-22 17:01] LABS: Bedside Glucose 197 mg/dL (70-110)
[2017-08-22] MEDS: Docusate Sodium 100 MG Capsule PO (17:10)
[2017-08-22] MEDS: Insulin Lispro 100 UNIT/ML INSULN.PEN 16 UNIT SC (17:11)
[2017-08-22] MEDS: Atorvastatin Calcium 40 MG Tablet PO (21:22)
[2017-08-22 21:30] LABS: Bedside Glucose 203 mg/dL (70-110)
[2017-08-23] VITALS (8 sets, daily range): BP systolic 109–146; BP diastolic 62–67; PULSE 56–79; RESP 18–22; TEMP 36.5–37; O2SAT 94–98
[2017-08-23] MEDS: Ipratropium/Albuterol Sulfate 3 ML AMPUL.NEB INHALATION ×4 (02:37→14:27)
[2017-08-23] MEDS: busPIRone 5 MG Tablet 10 MG PO ×2 (05:34→14:27)
[2017-08-23] MEDS: 0.9% NaCl Peripheral Flush Adult/Peds IV ×2 (05:34→09:45)
[2017-08-23 06:13] LABS: Hematocrit 37.8 % (37-47); Hemoglobin 11.9 g/dl (12.0-15.0); Mean Corp Hgb Conc 31.5 g/gl (32-36); Mean Corpuscular Hgb 25.4 pg (27.0-32.0); Mean Corpuscular Volume 80.6 fL (81-99); Mean Platelet Vol. 9.7 fl (6.2-12.0); Platelet Count 338 K/mm3 (150-450); RBC Distribution Width SD 51.7 fl (35.1-43.9); Red Blood Count 4.69 M/mm3 (4.2-5.4); White Blood Count 19.8 K/mm3 (4.4-11.0)
[2017-08-23 06:15] LABS: Scan Indicated on CBC? Y/N NO
[2017-08-23] MEDS: HYDROcodone Bitartrate/Apap 5/325 Tablet PO (07:28)
[2017-08-23] MEDS: predniSONE 10 MG Tablet 40 MG PO (07:44)
[2017-08-23] MEDS: Furosemide 40 MG Tablet PO (07:44)
[2017-08-23] MEDS: guaiFENesin 1,200 MG Tablet 1200 MG PO (07:44)
[2017-08-23] MEDS: Famotidine 20 MG Tablet PO (07:44)
[2017-08-23] MEDS: dilTIAZem 60 MG Tablet 120 MG PO (07:45)
[2017-08-23] MEDS: Propranolol 10 MG Tablet PO (07:45)
[2017-08-23] MEDS: Rivaroxaban 20 MG Tablet PO (07:45)
[2017-08-23] MEDS: Ferrous Sulfate 325 MG Tablet PO (07:48)
[2017-08-23] MEDS: Lisinopril 5 MG Tablet PO (07:49)
[2017-08-23] MEDS: buPROPion (SR) 150 MG Tablet.SA PO (07:50)
[2017-08-23] MEDS: Digoxin 250 MCG Tablet PO (07:51)
[2017-08-23 08:05] LABS: Bedside Glucose 65 mg/dL (70-110)
[2017-08-23 08:41] LABS: Bedside Glucose 97 mg/dL (70-110)
--- NOTE | 2017-08-23 10:53 | PCM.DC ---
- Discharge Diagnoses Current Active Problems: Current Active and Chronic Problems (Last Reviewed 08/21/17 @ 01:02 by Favian Montalvo DO) Acute exacerbation of chronic obstructive pulmonary disease (COPD) (Acute) Tobacco dependence due to cigarettes (Chronic) Non-compliance (Chronic) Microcytic anemia (Chronic) Reason(s) for Visit for Discharge Instructions: Acute COPD exacerbation You will use the following diet at home:: Calorie/Carbohydrate Controlled (specify 1200, 1400, etc) - 1800 Calorie Carb controlled diet. Your food should be the consistency of: Regular Call your doctor if you observe: - - Increased shortness of breath. Allergies/Adverse Reactions: Allergies venom-honey bee [bee venom (honey bee)] Allergy (Verified 08/20/17 22:28) Swelling levofloxacin [From Levaquin] Adverse Reaction (Verified 08/20/17 22:28) Nausea oxycodone HCl [From Percocet] Adverse Reaction (Verified 08/20/17 22:28) Nausea Penicillins Adverse Reaction (Verified 08/20/17 22:28) Nausea/Vom/Diarrhea Medications to take at Discharge Acetaminophen [Tylenol] 2 tab PO Q6H PRN 05/12/17 Albuterol Aerosols [Ventolin Aerosols] 2.5 mg INHALATION Q2H PRN PRN 05/12/17 Atorvastatin Calcium [Lipitor] 40 mg PO QHS 05/12/17 Budesonide/Formoterol 160/4.5 [Symbicort 160/4.5 Mcg Inhaler (SP)] 2 puff INHALATION BID 05/12/17 Bupropion HCl [Bupropion HCl Sr] 150 mg PO BID 05/12/17 Buspirone HCl 10 mg PO TID 05/12/17 Digoxin 250 mcg PO DAILY 05/12/17 Diltiazem [Cardizem] 120 mg PO BID 05/12/17 Docusate Sodium [Colace] 100 mg PO QHS 05/12/17 Famotidine [Pepcid] 20 mg PO BID 05/12/17 Furosemide [Lasix] 40 mg PO BID 05/12/17 Glucagon,Human Recombinant [Glucagon Emergency Kit] 1 mg IM PRN PRN 05/12/17 Guaifenesin [Mucinex] 1,200 mg PO BID 05/12/17 Insulin Glargine,Hum.rec.anlog [Basaglar Kwikpen U-100] 55 unit SQ QHS 05/12/17 Insulin Lispro [Humalog] 12 unit SQ TIDCM 05/12/17 Ipratropium/Albuterol Sulfate [Duoneb] 3 ml INHALATION Q4H.RT 05/12/17 Lisinopril [Prinivil] 5 mg PO DAILY 05/12/17 Potassium Chloride [K-Dur] 10 meq PO BID 05/12/17 Propranolol HCl [Inderal (Beta Rubén)] 10 mg PO BID 05/12/17 Rivaroxaban [Xarelto] 20 mg PO DAILY 05/12/17 Sennosides/Docusate Sodium [Senna-Docusate Sodium Tablet] 2 tab PO DAILY PRN PRN 05/12/17 Benzonatate [Tessalon Perle] 100 mg PO TID PRN PRN 08/11/17 Hydrocodone Bitart/Apap 5-325 [[place] 5/325] 1 tab PO Q6H PRN PRN 08/11/17 Mag Hydrox/Al Hydrox/Simeth [Mylanta II] 30 ml PO Q6H PRN PRN 08/11/17 Nitroglycerin [Nitrostat] 0.4 mg SL PRN PRN 08/11/17 Polyethylene Glycol 3350 [Miralax] 17 gm PO PRN PRN 08/11/17 Azithromycin 500 mg PO DAILY #3 tab 08/23/17 Prednisone 10 mg PO UD #30 tab 08/23/17 The following prescriptions were given: Azithromycin 500 mg PO DAILY #3 tab Prednisone 10 mg PO UD #30 tab Primary Care Physician: Camden Burger [Primary Care Provider] - Please follow up with your Primary Care Physician in: 3-7 days Test Results: Test results from this visit will be discussed in further detail at your follow-up appointment, if applicable. Proposed Discharge Date: 08/23/17
--- NOTE | 2017-08-23 10:57 | DCINST_ITS ---
- Discharge Diagnoses Current Active Problems: Current Active and Chronic Problems (Last Reviewed 08/21/17 @ 01:02 by Favian Montalvo DO) Acute exacerbation of chronic obstructive pulmonary disease (COPD) (Acute) Tobacco dependence due to cigarettes (Chronic) Non-compliance (Chronic) Microcytic anemia (Chronic) Reason(s) for Visit for Discharge Instructions: Acute COPD exacerbation You will use the following diet at home:: Calorie/Carbohydrate Controlled ( specify 1200, 1400, etc) - 1800 Calorie Carb controlled diet. Your food should be the consistency of: Regular Call your doctor if you observe: - - Increased shortness of breath. Allergies/Adverse Reactions: Allergies venom-honey bee [bee venom (honey bee)] Allergy (Verified 08/20/17 22:28) Swelling levofloxacin [From Levaquin] Adverse Reaction (Verified 08/20/17 22:28) Nausea oxycodone HCl [From Percocet] Adverse Reaction (Verified 08/20/17 22:28) Nausea Penicillins Adverse Reaction (Verified 08/20/17 22:28) Nausea/Vom/Diarrhea Medications to take at Discharge Acetaminophen [Tylenol] 2 tab PO Q6H PRN 05/12/17 Albuterol Aerosols [Ventolin Aerosols] 2.5 mg INHALATION Q2H PRN PRN 05/12/17 Atorvastatin Calcium [Lipitor] 40 mg PO QHS 05/12/17 Budesonide/Formoterol 160/4.5 [Symbicort 160/4.5 Mcg Inhaler (SP)] 2 puff INHALATION BID 05/12/17 Bupropion HCl [Bupropion HCl Sr] 150 mg PO BID 05/12/17 Buspirone HCl 10 mg PO TID 05/12/17 Digoxin 250 mcg PO DAILY 05/12/17 Diltiazem [Cardizem] 120 mg PO BID 05/12/17 Docusate Sodium [Colace] 100 mg PO QHS 05/12/17 Famotidine [Pepcid] 20 mg PO BID 05/12/17 Furosemide [Lasix] 40 mg PO BID 05/12/17 Glucagon,Human Recombinant [Glucagon Emergency Kit] 1 mg IM PRN PRN 05/12/17 Guaifenesin [Mucinex] 1,200 mg PO BID 05/12/17 Insulin Glargine,Hum.rec.anlog [Basaglar Kwikpen U-100] 55 unit SQ QHS 05/12/17 Insulin Lispro [Humalog] 12 unit SQ TIDCM 05/12/17 Ipratropium/Albuterol Sulfate [Duoneb] 3 ml INHALATION Q4H.RT 05/12/17 Lisinopril [Prinivil] 5 mg PO DAILY 05/12/17 Potassium Chloride [K-Dur] 10 meq PO BID 05/12/17 Propranolol HCl [Inderal (Beta Rubén)] 10 mg PO BID 05/12/17 Rivaroxaban [Xarelto] 20 mg PO DAILY 05/12/17 Sennosides/Docusate Sodium [Senna-Docusate Sodium Tablet] 2 tab PO DAILY PRN PRN 05/12/17 Benzonatate [Tessalon Perle] 100 mg PO TID PRN PRN 08/11/17 Hydrocodone Bitart/Apap 5-325 [[place] 5/325] 1 tab PO Q6H PRN PRN 08/11/17 Mag Hydrox/Al Hydrox/Simeth [Mylanta II] 30 ml PO Q6H PRN PRN 08/11/17 Nitroglycerin [Nitrostat] 0.4 mg SL PRN PRN 08/11/17 Polyethylene Glycol 3350 [Miralax] 17 gm PO PRN PRN 08/11/17 Azithromycin 500 mg PO DAILY #3 tab 08/23/17 Prednisone 10 mg PO UD #30 tab 08/23/17 The following prescriptions were given: Azithromycin 500 mg PO DAILY #3 tab Prednisone 10 mg PO UD #30 tab Primary Care Physician: Camden Burger [Primary Care Provider] - Please follow up with your Primary Care Physician in: 3-7 days Test Results: Test results from this visit will be discussed in further detail at your follow- up appointment, if applicable. Proposed Discharge Date: 08/23/17
--- NOTE | 2017-08-23 10:58 | DS.PCM_ITS ---
Discharge Date and Diagnosis - Problem List Patient Problems: Active and Suspected Problems (Last Reviewed 08/21/17 @ 01:02 by Favian Montalvo DO) Acute exacerbation of chronic obstructive pulmonary disease (COPD) (Acute) Date of Admission: 08/21/17 Date of Discharge: 08/23/17 - Primary Discharge Diagnosis Active and Suspected Problems (Last Reviewed 08/21/17 @ 01:02 by Favian Montalvo DO) Acute exacerbation of chronic obstructive pulmonary disease (COPD) (Acute) - Secondary Discharge Diagnosis Chronic Problems (Last Reviewed 08/21/17 @ 01:02 by Favian Montalvo DO) Tobacco dependence due to cigarettes (Chronic) Non-compliance (Chronic) Microcytic anemia (Chronic) Hypersomnia (Chronic) Anemia (Chronic) Hypomagnesemia (Chronic) HTN (hypertension) (Chronic) Morbid obesity with BMI of 40.0-44.9, adult (Chronic) Chronic pain (Chronic) Chronic atrial fibrillation (Chronic) Chronic hypoxemic respiratory failure (Chronic) non-compliant with oxygen Hyperlipemia (Chronic) ECHO in June of 2017 showed a 75% EF Type 2 diabetes mellitus (Chronic) uncontrolled GERD (gastroesophageal reflux disease) (Chronic) Anxiety (Chronic) Insomnia (Chronic) Hospital Course and Treatment Operations: None Summary of Care Provided: The patient is a 62 year old F with a past medical history of hypertension, diabetes mellitus type 2, hyperlipidemia, COPD, chronic pain syndrome, tobacco abuse, chronic anticoagulation with Xarelto, mild aortic stenosis, hypersomnia, osteoporosis, hypomagnesemia, morbid obesity, chronic atrial fibrillation, chronic respiratory failure with hypoxemia not compliant with oxygen, GERD and non-compliance who was brought to the ED at [facility] from the [facility] where she is a chronic resident at the age of 62 with complaints of Chest Pain. CXR shows no pulmonary vascular congestion, pleural effusions or infiltrates. EKG showed some nonspecific ST and T-wave changes which were unchanged from previous EKGs. Troponin was unremarkable. Patient had been coughing for a couple of days and she has shortness of breath above her baseline and a physical examination of wheezing. Patient was diagnosed with COPD exacerbation and she was placed on a steroid regimen. Because patient continued to have a leukocytosis and shortness of breath azithromycin was added to her regimen. At the hospital, we continued her home medication for chronic A. fib and anxiety. Her home insulin regimen was adjusted while at hospital. Patient noticed an improvement in shortness of breath and wheezing and a shared decision was made to discharge patient to her assisted living that she came from. The patient prescribed a tapered dose of prednisone and will continue azithromycin for 3 more days. On the day of discharge patient was seen and physical examination is as below: General: Alert, Oriented x3, Cooperative HEENT: Atraumatic Neck: Supple, No JVD, Negative Carotid Bruits Lungs: Wheezes Cardiovascular: Regular rate, No murmurs Abdomen: Bowel Sounds Present, Soft, Non Tender Extremities: No edema, Capillary Refill Less than 3 Seconds Skin: No rashes, No breakdown Musculoskeletal: No Tenderness to Palpation of Joints or Extremities Neurological: Cranial nerves II-XII grossly intact Psych/Mental Status: Flat Affect Patient was struck instructed to come to the emergency department if her shortness of breath worsens and to follow up with her PCP. . Discharge Diet: 1800 Calorie Control Diet Call your doctor if you observe: - - Increased shortness of breath. Home Medications: Medications to take at Discharge Acetaminophen [Tylenol] 2 tab PO Q6H PRN 05/12/17 Albuterol Aerosols [Ventolin Aerosols] 2.5 mg INHALATION Q2H PRN PRN 05/12/17 Atorvastatin Calcium [Lipitor] 40 mg PO QHS 05/12/17 Budesonide/Formoterol 160/4.5 [Symbicort 160/4.5 Mcg Inhaler (SP)] 2 puff INHALATION BID 05/12/17 Bupropion HCl [Bupropion HCl Sr] 150 mg PO BID 05/12/17 Buspirone HCl 10 mg PO TID 05/12/17 Digoxin 250 mcg PO DAILY 05/12/17 Diltiazem [Cardizem] 120 mg PO BID 05/12/17 Docusate Sodium [Colace] 100 mg PO QHS 05/12/17 Famotidine [Pepcid] 20 mg PO BID 05/12/17 Furosemide [Lasix] 40 mg PO BID 05/12/17 Glucagon,Human Recombinant [Glucagon Emergency Kit] 1 mg IM PRN PRN 05/12/17 Guaifenesin [Mucinex] 1,200 mg PO BID 05/12/17 Insulin Glargine,Hum.rec.anlog [Basaglar [place] U-100] 55 unit SQ QHS 05/12/17 Insulin Lispro [Humalog] 12 unit SQ TIDCM 05/12/17 Ipratropium/Albuterol Sulfate [Duoneb] 3 ml INHALATION Q4H.RT 05/12/17 Lisinopril [Prinivil] 5 mg PO DAILY 05/12/17 Potassium Chloride [K-Dur] 10 meq PO BID 05/12/17 Propranolol HCl [Inderal (Beta Rubén)] 10 mg PO BID 05/12/17 Rivaroxaban [Xarelto] 20 mg PO DAILY 05/12/17 Sennosides/Docusate Sodium [Senna-Docusate Sodium Tablet] 2 tab PO DAILY PRN PRN 05/12/17 Benzonatate [Tessalon Perle] 100 mg PO TID PRN PRN 08/11/17 Hydrocodone Bitart/Apap 5-325 [[place] 5/325] 1 tab PO Q6H PRN PRN 08/11/17 Mag Hydrox/Al Hydrox/Simeth [Mylanta II] 30 ml PO Q6H PRN PRN 08/11/17 Nitroglycerin [Nitrostat] 0.4 mg SL PRN PRN 08/11/17 Polyethylene Glycol 3350 [Miralax] 17 gm PO PRN PRN 08/11/17 Azithromycin 500 mg PO DAILY #3 tab 08/23/17 Prednisone 10 mg PO UD #30 tab 08/23/17 Following Prescrptions Were Given to Patient: Azithromycin 500 mg PO DAILY #3 tab Prednisone 10 mg PO UD #30 tab Primary Care Physician: Camden Burger [Primary Care Provider] - Please follow up with your Primary Care Physician in: 3-7 days Disposition: Asstd Living/Non-Skill [place] Minutes spent on discharge:: 25 Patient Condition:: Fair Medical Necessity - Tobacco Use Smoking Status: Current every day smoker Tobacco Use: Cigarettes Meaningful Use Info Meaningful Use Diagnoses (Choose all that apply): None applicable
--- NOTE | 2017-08-23 11:30 | PCA ---
TC placed to [facility] to set up time for pt transport to [facility]. Spoke with Bridgette who stated wheelchair van would be able to transport pt at 1530. Also, called and left message at [facility] stating pt will be discharged back to the facility today. Informed primary RN of this information.
[2017-08-23] MEDS: Insulin Lispro 100 UNIT/ML INSULN.PEN 16 UNIT SC (11:44)
[2017-08-23] MEDS: Insulin Lispro 100 UNIT/ML INSULN.PEN SQ (11:44)
[2017-08-23 11:50] LABS: Bedside Glucose 278 mg/dL (70-110)
--- NOTE | 2017-08-23 14:38 | NURSING ---
Call placed to [facility] report given to Kassidy
[2017-08-24 14:23] LABS: Pathologist Review Reviewed
== END 2017-08-23 16:05 | disposition home or self-care (01) ==
LOC: ED 22:41 → PCU 08-21 00:48 → MS3 08-21 01:00
PROVIDERS: Admitting Provider Internal Medicine; Emergency Provider Emergency Medicine; Family Provider Family Medicine; PCP Family Medicine; Visit Provider Hospitalist
DX: J44.1 Chronic obstructive pulmonary disease with (acute) exacerbation (principal); E78.5 Hyperlipidemia, unspecified; I48.2 Chronic atrial fibrillation; I10 Essential (primary) hypertension; J96.11 Chronic respiratory failure with hypoxia; E66.01 Morbid (severe) obesity due to excess calories; E11.65 Type 2 diabetes mellitus with hyperglycemia; K21.9 Gastro-esophageal reflux disease without esophagitis; F41.9 Anxiety disorder, unspecified; Z91.19 Patient's noncompliance with other medical treatment and regimen; Z79.899 Other long term (current) drug therapy; G89.4 Chronic pain syndrome; Z79.51 Long term (current) use of inhaled steroids; Z79.4 Long term (current) use of insulin; Z79.52 Long term (current) use of systemic steroids; Z68.38 Body mass index [BMI] 38.0-38.9, adult; Z71.3 Dietary counseling and surveillance; Z79.01 Long term (current) use of anticoagulants; F17.210 Nicotine dependence, cigarettes, uncomplicated; F32.9 Major depressive disorder, single episode, unspecified
CPT/HCPCS: 36415; 36600; 71046; 80048; 80162; 82728; 82803; 82962; 83540; 83550; 83605; 83880; 84484; 85025; 85027; 85610; 85730; 87040; 87633; 93005; 94640; 94667; 94668; 96365; 96366; 96367; 96375; 97802; 99218; 99285; J7030; A4216; G0378

== ENCOUNTER 2017-09-06 22:11 | Observation (INO) | payer MEDICAID, SELFPAY ==
[2017-09-06 22:12] VITALS: BP 172/98; PULSE 74; RESP 26; TEMP 36.2; O2SAT 93; BMI 40.6
[2017-09-06 22:16] VITALS: O2SAT 93
--- NOTE | 2017-09-06 22:22 | EKG12_ITS ---
Test Reason : SOB Blood Pressure : / mmHG Vent. Rate : 068 BPM Atrial Rate : 277 BPM P-R Int : 000 ms QRS Dur : 084 ms QT Int : 344 ms P-R-T Axes : 000 069 -47 degrees QTc Int : 365 ms Atrial fibrillation Nonspecific ST and T wave abnormality Abnormal ECG Confirmed by SPENCER DELGADO, FLORENTINO ([id number]), videotape editor DIANA GALVEZ ([id number] on 09/08/2017 1:14:23 PM Referred By: NIECY Confirmed By:FLORENTINO PALMER MD
--- NOTE | 2017-09-06 22:22 | RAD_ITS ---
STUDY: X-RAY CHEST REASON FOR EXAM: Female, 62 years old. SOB / SOA TECHNIQUE: Single frontal view of the chest. COMPARISON: August 20, 2017 FINDINGS: Chronic appearing increased interstitial lung markings. The lung hoang are hyperexpanded. There is no demonstrated pleural abnormality. Enlarged heart size. Normal mediastinum and sangeeta. Normal visualized pulmonary arteries. There is atherosclerotic calcification of the aortic arch with tortuosity. There are diffuse degenerative changes of the visualized thoracic spine. There is degenerative osteoarthritis of the bilateral shoulders. There is no demonstrated abnormality of the visualized soft tissue structures of the upper abdomen. RAD/Chest 1 View (Portable) IMPRESSION: There are no acute findings. Electronically Signed: Addy Delcid MD at 22:34 EDT , Service support ,
--- NOTE | 2017-09-06 22:28 | ED.VISSUMM ---
- ER Visit Summary Date of Service: 09/06/17 Chief Complaint: Shortness of breath History of Present Illness: The patient is a 62 F with history of COPD who denies being on oxygen presents to the emergency department with increasing shortness of breath. Patient was recently hospitalized just about 2 weeks ago for the same. She states that she feels she is still on prednisone. States that she was smoking, and became increasingly short of breath. She cannot get to her nebulizer. She felt very tachypneic and lightheaded. She called squad. On squad arrival, the patient was hypoxic and wheezing in all lung hoang. She was placed on supplemental oxygen given breathing treatments. She was brought in for further evaluation. She denies any fevers or chills. She denies any chest pain. She does admit to some orthopnea but states this is chronic. 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 Physical Examination: Vital signs reviewed General: Well-nourished, well-developed Head: Normocephalic, atraumatic Eyes: Pupils equal and reactive, extraocular muscles intact Neck, supple, no lymphadenopathy Heart: Regular rate and rhythm Respiratory: No distress, wheezing in all hoang Abdomen: Soft, nontender, nondistended, no peritoneal signs Back: Nontender Extremities: Nontender, no edema, no cords Skin: Normal color no rash Neuro: Alert and oriented, no focal or lateralizing deficits Test Results: [] Emergency Department Course and Treatment: The patient was still tachypneic with significant bronchospasm on arrival. She was given more nebulized treatments, fluids, and Solu-Medrol. Chest x-ray does not show any evidence of infiltrates or volume overload. Her EKG demonstrates atrial fibrillation which is rate controlled. Cardiac enzymes are normal. Patient does have a leukocytosis of 18,000, but I do feel that this is likely a combination of her prednisone use and stress reaction from her acute dyspnea. She has had no productive sputum. I do not feel antibiotics are necessary. However, given her persistent bronchospasm, current oxygen requirement, and underlying severe lung disease I do feel that she will benefit from admission for continued nebulized breathing treatments. Patient was discussed with the hospitalist. Treatment Plan: [] Disposition: Admission Impression: COPD exacerbation This note was generated with gripNoteation software. It may contain incorrect words, spelling, and punctuation that were not noted in review of the chart prior to signing ED Disposition - Plan for ED Patient: Chief Complaint: Shortness of Breath Referrals: Camden Burger [Primary Care Provider] -
[2017-09-06 22:33] VITALS: PULSE 68; RESP 20; O2SAT 96
[2017-09-06] MEDS: Albuterol 2.5 MG/3 ML VIAL.NEB. INHALATION ×3 (22:33→22:37)
[2017-09-06] MEDS: Ipratropium/Albuterol Sulfate 3 ML AMPUL.NEB INHALATION (22:33)
[2017-09-06 22:37] VITALS: PULSE 68; RESP 20
[2017-09-06 22:40] LABS: Absolute Lymphocyte Count 4.59 X10^3/ul (0.83-4.51); Absolute Neutrophil Count 11.9 X10^3/uL (2.0-7.7); Basophil# 0.01 X10^3/uL; Basophil% 0.1 % (0-1); Eosinophils% 0.6 % (0-5); Hematocrit 40.1 % (37-47); Hemoglobin 12.6 g/dl (12.0-15.0); Lymphocyte # 4.59 X10^3/ul (4.0); Lymphocyte % 25.4 % (19-41); Mean Corp Hgb Conc 31.4 g/gl (32-36); Mean Corpuscular Hgb 26.2 pg (27.0-32.0); Mean Corpuscular Volume 83.4 fL (81-99); Mean Platelet Vol. 9.9 fl (6.2-12.0); Monocyte# 1.38 X10^3/uL; Monocyte% 7.6 % (0-10); Neutrophil # 11.93 X10^3/uL (2.7-7.7); Neutrophil % 65.9 % (47-70); Platelet Count 350 K/mm3 (150-450); RBC Distribution Width CV 18.7 % (11.6-14.6); RBC Distribution Width SD 56.7 fl (35.1-43.9); Red Blood Count 4.81 M/mm3 (4.2-5.4); White Blood Count 18.1 K/mm3 (4.4-11.0)
[2017-09-06] MEDS: MethylPREDNISolone 125 MG/2 ML Vial IV (22:40)
[2017-09-06] MEDS: 0.9% Normal Saline 1,000 ML 150 ML IV (22:40)
[2017-09-06 22:49] LABS: POSITIVE COUNT NO; POSITIVE DIFFERENTIAL NO; POSITIVE MORPHOLOGY NO
[2017-09-06 23:07] LABS: Anion Gap 8 (5-15); BUN 31 mg/dL (7-18); BUN/Creat Ratio 37.2 RATIO (10-20); Calcium,Total 9.5 mg/dL (8.5-10.1); Chloride 102 mmol/L (98-107); Creatinine, Serum 0.83 mg/dL (0.55-1.02); EST Glomerular Filtration Rate 74 mL/min (>60); Est Glom Filt Rate - Afr Amer 89 mL/min (>60); Estimated Creatinine Clearance 53.03 ml/min; Glucose 113 mg/dL (74-106); Potassium 5.3 mmol/L (3.5-5.1); Sodium Level 141 mmol/L (136-145)
[2017-09-06 23:29] LABS: BNP,B-Type NATRIURETIC PEPTIDE 16.5 pg/mL (0-100)
[2017-09-06 23:53] VITALS: BP 121/69; PULSE 71; RESP 19; O2SAT 98
--- NOTE | 2017-09-06 23:57 | PCM.HP.STD ---
Problem List (1) ABDULLAHI (obstructive sleep apnea) Status: Acute (2) Acute exacerbation of chronic obstructive pulmonary disease (COPD) Status: Acute (3) Tobacco dependence due to cigarettes Status: Chronic (4) Non-compliance Status: Chronic (5) Microcytic anemia Status: Chronic (6) Syncope Status: Acute (7) Chest pain Status: Acute Qualifiers: (8) Hypersomnia Status: Chronic History of Present Illness Date of Admission: 09/06/17 Chief Complaint: Acute on chronic COPD exacerbation The patient is a 62 year old F with a past medical history of hypertension, diabetes mellitus type 2, hyperlipidemia, COPD, chronic pain syndrome, tobacco abuse, chronic anticoagulation with Xarelto, mild aortic stenosis, hypersomnia, osteoporosis, hypomagnesemia, morbid obesity, chronic atrial fibrillation, chronic respiratory failure with hypoxemia not compliant with oxygen, GERD and non-compliance admitted for acute on chronic COPD exacerbation. She was discharge from the hospital 2 weeks ago for chest pain and COPD exacerbation. She was discharged on prednisone and azithromycin. She has been getting progressively SOB since discharge. Nothing appeared to make it better or worse. Despite being adjust not to smoke, she continues to smoke at least 1/2 pack / day. She has a nonproductive cough. Past Medical History Past Medical History (Chronic Problems): Chronic Problems (Last Reviewed 09/07/17 @ 03:18 by Chau López MD) Tobacco dependence due to cigarettes (Chronic) Non-compliance (Chronic) Microcytic anemia (Chronic) Hypersomnia (Chronic) Anemia (Chronic) Hypomagnesemia (Chronic) HTN (hypertension) (Chronic) Morbid obesity with BMI of 40.0-44.9, adult (Chronic) Chronic pain (Chronic) Chronic atrial fibrillation (Chronic) Chronic hypoxemic respiratory failure (Chronic) non-compliant with oxygen Hyperlipemia (Chronic) ECHO in June of 2017 showed a 75% EF Type 2 diabetes mellitus (Chronic) uncontrolled GERD (gastroesophageal reflux disease) (Chronic) Anxiety (Chronic) Insomnia (Chronic) Medical History: Medical History (Last Reviewed 09/07/17 @ 03:18 by Chau López MD) Hypersomnia (Chronic) G47.10 Chest pain (Acute) R07.9 Anemia (Chronic) D64.9 Hypomagnesemia (Chronic) E83.42 HTN (hypertension) (Chronic) I10 Morbid obesity with BMI of 40.0-44.9, adult (Chronic) E66.01, Z68.41 COPD (chronic obstructive pulmonary disease) (Acute) J44.9 Chronic pain (Chronic) G89.29 Chronic atrial fibrillation (Chronic) I48.2 Chronic hypoxemic respiratory failure (Chronic) J96.11 non-compliant with oxygen Hyperlipemia (Chronic) E78.5 ECHO in June of 2017 showed a 75% EF Type 2 diabetes mellitus (Chronic) E11.9 uncontrolled GERD (gastroesophageal reflux disease) (Chronic) K21.9 Anxiety (Chronic) F41.9 Insomnia (Chronic) G47.00 Osteoporosis M81.0 Cardiomyopathy (Ruled-out) I42.9 EF in Oct 2015 45-50 Left ankle pain (Inactive) M25.572 Non-compliance (Inactive) Z91.19 withn follow up with pulmonary Allergies venom-honey bee [bee venom (honey bee)] Allergy (Verified 09/06/17 22:18) Swelling levofloxacin [From Levaquin] Adverse Reaction (Verified 09/06/17 22:18) Nausea oxycodone HCl [From Percocet] Adverse Reaction (Verified 09/06/17 22:18) Nausea Penicillins Adverse Reaction (Verified 09/06/17 22:18) Nausea/Vom/Diarrhea Home Medications: Ambulatory Orders Medication Instructions Recorded Albuterol Aerosols [Ventolin 2.5 mg INHALATION Q2H PRN PRN 05/12/17 Aerosols] Atorvastatin Calcium [Lipitor] 40 mg PO QHS 05/12/17 Budesonide/Formoterol 160/4.5 2 puff INHALATION BID 05/12/17 [Symbicort 160/4.5 Mcg Inhaler (SP)] Bupropion HCl [Bupropion HCl Sr] 150 mg PO BID 05/12/17 Buspirone HCl 10 mg PO TID 05/12/17 Digoxin 250 mcg PO DAILY 05/12/17 Diltiazem [Cardizem] 120 mg PO BID 05/12/17 Famotidine [Pepcid] 20 mg PO BID 05/12/17 Furosemide [Lasix] 40 mg PO BID 05/12/17 Glucagon,Human Recombinant 1 mg IM PRN PRN 05/12/17 [Glucagon Emergency Kit] Guaifenesin [Mucinex] 1,200 mg PO BID 05/12/17 Insulin Lispro [Humalog] 12 unit SQ TIDCM 05/12/17 Ipratropium/Albuterol Sulfate 3 ml INHALATION Q4H.RT 05/12/17 [Duoneb] Lisinopril [Prinivil] 5 mg PO DAILY 05/12/17 Potassium Chloride [K-Dur] 10 meq PO BID 05/12/17 Propranolol HCl [Inderal (Beta 10 mg PO BID 05/12/17 Rubén)] Rivaroxaban [Xarelto] 20 mg PO DAILY 05/12/17 Sennosides/Docusate Sodium 2 tab PO DAILY PRN PRN 05/12/17 [Senna-Docusate Sodium Tablet] Hydrocodone Bitart/Apap 5-325 1 tab PO Q6H PRN PRN 08/11/17 [[place] 5/325] Mag Hydrox/Al Hydrox/Simeth 30 ml PO Q6H PRN PRN 08/11/17 [Mylanta II] Polyethylene Glycol 3350 [Miralax] 17 gm PO PRN PRN 08/11/17 docusate sodium 100 mg capsule 100 mg PO QDAY 09/01/17 gabapentin 100 mg capsule 100 mg PO TID cap 09/01/17 nystatin 100,000 unit/mL oral 5 ml MUCOUS MEMBRANE TID #250 ml 09/01/17 suspension Insulin Glargine,Hum.rec.anlog 55 unit SQ QHS 09/06/17 [Lantus Solostar] Surgical History: Surgical History (Last Reviewed 09/07/17 @ 03:18 by Chau López MD) Cataract extraction status Z98.49 History of lumbar surgery Z98.890 History of tonsillectomy and adenoidectomy Z98.890 History of total hysterectomy Z90.710 Surgical History: hysterectomy, tonsillectomy, - - Lumbar surgery. Psychiatric History: Anxiety, Depression [employer] History: No pertinent [employer] history Smoking Status: Current every day smoker - *Family History Maternal Family History: Family History (Last Reviewed 09/07/17 @ 03:19 by Chau López MD) Sister Arthritis Diabetes Father Cancer Aunt Diabetes History Items: - - She reports that she is unaware of what her mother's health history was like Paternal Family History: Family History (Last Reviewed 09/07/17 @ 03:19 by Chau López MD) Sister Arthritis Diabetes Father Cancer Aunt Diabetes History Items: Cancer, - - father with throat cancer. Sibling Family History: Family History (Last Reviewed 09/07/17 @ 03:19 by Chau López MD) Sister Arthritis Diabetes Father Cancer Aunt Diabetes History Items: Asthma, COPD, Hypertension Review of Systems Constitutional: Denies: Chills, Fever, Weight Change HEENT: Denies: Head Aches, Sinus Congestion, Sinus Drainage Cardiovascular: Denies: Chest Pain, Palpitations Respiratory: Reports: Cough, Shortness of Breath, Shortness of breath at rest, Wheezing Gastrointestinal: Denies: Abdominal Pain, Nausea, Vomiting Genitourinary: Denies: Dysuria Musculoskeletal: Denies: Joint Pain, Joint Tenderness Skin: Denies: Rash, Wounds Neurological: Denies: Numbness, Tingling, Focal weakness Psychiatric: Denies: Anxiety, Depression, Homicidal Ideations, Suicidal Ideations Hematologic/ Lymphatic: Denies: Easy Bruising, Easy Bleeding VTE Information - Inpt Only VTE Present on Admission: No VTE Mechan Device Prophylaxis: SCD's VTE Pharm Prophylaxis ordered?: Yes - Physical Exam General: Alert, Oriented x3, Cooperative HEENT: Atraumatic, PERRLA, EOMI, Normocephalic Neck: Supple, No JVD, Negative Carotid Bruits Lungs: Diminished, Tachypneic, Wheezes Cardiovascular: Regular rate, No murmurs Abdomen: Bowel Sounds Present, Soft, Non Tender Extremities: No edema, Capillary Refill Less than 3 Seconds Skin: No rashes, No breakdown Musculoskeletal: No Tenderness to Palpation of Joints or Extremities Neurological: Cranial nerves II-XII grossly intact Psych/Mental Status: Normal Affect, Appropriate Vital Signs Temp Pulse Resp BP Pulse Ox 97.2 F L 71 19 H 121/69 H 98 09/06/17 22:12 09/06/17 23:53 09/06/17 23:53 09/06/17 23:53 09/06/17 23:53 Oxygen Flow Rate (L/min) 2 Oxygen Delivery Method Nasal Cannula Weight: 97.7 kg Body Mass Index (BMI) 40.6 Finger Stick Blood Glucose 364 Laboratory Tests Past 24 Hrs 09/06/17 09/06/17 09/06/17 22:18 22:18 22:18 WBC 18.1 H RBC 4.81 Hgb 12.6 Hct 40.1 MCV 83.4 MCH 26.2 L MCHC 31.4 L RDW 18.7 H RDW Differential 56.7 H Plt Count 350 MPV 9.9 Immature Gran % (Auto) 0.400 Neut % (Auto) 65.9 Lymph % (Auto) 25.4 [place] % (Auto) 7.6 Eos % (Auto) 0.6 Baso % (Auto) 0.1 Absolute Neuts (auto) 11.9 H Absolute Lymphs (auto) 4.59 H Total Counted Not Reportable Sodium 141 Potassium 5.3 H Chloride 102 Carbon Dioxide 31.0 Anion Gap 8 BUN 31 H Creatinine 0.83 Estim Creat Clear Calc 53.03 Est GFR (MDRD) Af Amer 89 Est GFR (MDRD) Non-Af 74 BUN/Creatinine Ratio 37.2 H Glucose 113 H Calcium 9.5 Troponin I < 0.015 B-Natriuretic Peptide 16.5 Assessment/Plan All Active Problems (Last Reviewed 09/07/17 @ 03:18 by Chau López MD) ABDULLAHI (obstructive sleep apnea) (Acute) Acute exacerbation of chronic obstructive pulmonary disease (COPD) (Acute) Syncope (Acute) Chest pain (Acute) Chest pain (Acute) COPD (chronic obstructive pulmonary disease) (Acute) Acute and chronic respiratory failure with hypoxia (Resolved) Acute bronchitis due to human metapneumovirus (Resolved) Atrial fibrillation with RVR (Resolved) COPD with acute exacerbation (Resolved) Gram-negative pneumonia (Resolved) Cardiomyopathy (Ruled-out) 62 year old F with a past medical history of hypertension, diabetes mellitus type 2, hyperlipidemia, COPD, chronic pain syndrome, tobacco abuse, chronic anticoagulation with Xarelto, mild aortic stenosis, hypersomnia, osteoporosis, hypomagnesemia, morbid obesity, chronic atrial fibrillation, chronic respiratory failure with hypoxemia not compliant with oxygen, GERD and non-compliance admitted for acute on chronic COPD exacerbation. 1) Acute on chronic COPD exacerbation: Most likely secondary to her noncompliant and smoking. Chest xray is unremarkable. Will start levaquin, solumedrol, and duonebs. Probably stop levaquin once cultures are negative. Leukocytosis probably secondary to high dose steroid. 2) Tobacco abuse: Education done. High readmission risk given noncompliant and no desire to quit smoking. 3) Acute hypoxic respiratory failure: C/w oxygen. C/w levaquin, solumderol and duonebs. Probably secondary to underlying COPD exacerbation. 4) DMII: Resume home meds. Sliding scale and accucheck. 5) Prophylaxis: SCD / Pepcid / Xarelto
[2017-09-07] VITALS (18 sets, daily range): BP systolic 122–147; BP diastolic 59–84; PULSE 67–99; RESP 18–21; TEMP 36.4–37; O2SAT 2–99; BMI 39.4; BMI 39.5
--- NOTE | 2017-09-07 01:04 | NURSING ---
Called [facility] charge nursealisha to send patient to the floor.
[2017-09-07 02:34] LABS: D-Dimer Quantitative (DVT/PE) < 0.27 FEU/ug/m (0.27-0.49)
[2017-09-07] MEDS: HYDROcodone Bitartrate/Apap 5/325 Tablet PO ×4 (03:13→23:11)
[2017-09-07] MEDS: levoFLOXacin IV 500 MG/100 ML BAG 100 MG IV (03:13)
--- NOTE | 2017-09-07 05:10 | RAD_ITS ---
STUDY: X-RAY CHEST REASON FOR EXAM: Female, 62 years old. Dyspnea TECHNIQUE: Frontal and lateral views of the chest. COMPARISON: None. FINDINGS: The lungs are clear and expanded. There is no demonstrated pleural abnormality. Normal size heart. Normal mediastinum and sangeeta. Normal visualized pulmonary arteries. Normal visualized aortic arch and descending thoracic aorta. Normal visualized thoracic spine. There is degenerative osteoarthritis of the bilateral shoulders. There is no demonstrated abnormality of the visualized soft tissue structures of the upper abdomen. RAD/Chest PA and Lateral IMPRESSION: Degenerative changes, as described above. No demonstrated acute cardiopulmonary process. Electronically Signed: Rimma Carreon MD at 12:23 EDT Tel , Service support ,
[2017-09-07] MEDS: busPIRone 5 MG Tablet 10 MG PO ×3 (05:47→22:57)
[2017-09-07] MEDS: 0.9% NaCl Peripheral Flush Adult/Peds IV ×3 (05:48→23:04)
[2017-09-07] MEDS: Gabapentin 100 MG Capsule PO ×3 (05:48→23:00)
[2017-09-07] MEDS: Ipratropium/Albuterol Sulfate 3 ML AMPUL.NEB INHALATION ×5 (06:53→23:40)
[2017-09-07] MEDS: Budesonide Respules 0.5 MG/2 ML AMPUL.NEB. INHALATION (06:53)
[2017-09-07 06:56] LABS: Bedside Glucose 309 mg/dL (70-110)
[2017-09-07 07:00] LABS: Absolute Lymphocyte Count 1.43 X10^3/ul (0.83-4.51); Absolute Neutrophil Count 11.9 X10^3/uL (2.0-7.7); Basophil# 0.01 X10^3/uL; Basophil% 0.1 % (0-1); Eosinophil# 0.01 X10^3/uL; Eosinophils% 0.1 % (0-5); Hematocrit 36.1 % (37-47); Hemoglobin 11.5 g/dl (12.0-15.0); Lymphocyte # 1.43 X10^3/ul (4.0); Lymphocyte % 10.6 % (19-41); Mean Corp Hgb Conc 31.9 g/gl (32-36); Mean Corpuscular Hgb 26.3 pg (27.0-32.0); Mean Corpuscular Volume 82.6 fL (81-99); Mean Platelet Vol. 10.9 fl (6.2-12.0); Monocyte# 0.12 X10^3/uL; Monocyte% 0.9 % (0-10); Neutrophil # 11.88 X10^3/uL (2.7-7.7); Neutrophil % 87.8 % (47-70); Platelet Count 310 K/mm3 (150-450); RBC Distribution Width CV 18.5 % (11.6-14.6); RBC Distribution Width SD 55.7 fl (35.1-43.9); Red Blood Count 4.37 M/mm3 (4.2-5.4); White Blood Count 13.5 K/mm3 (4.4-11.0)
[2017-09-07 07:10] LABS: POSITIVE COUNT NO; POSITIVE DIFFERENTIAL NO; POSITIVE MORPHOLOGY NO
[2017-09-07 07:21] LABS: ALB/GLOB Ratio 0.9 RATIO (0.9-2.4); AST(SGOT) 13 U/L (15-37); Alanine Aminotransfer ALT/SGPT 25 U/L (13-56); Albumin, Serum 3.1 g/dL (3.2-5.0); Alkaline Phosphatase 102 U/L (45-117); Anion Gap 12 (5-15); BUN 25 mg/dL (7-18); BUN/Creat Ratio 25.5 RATIO (10-20); Calcium,Total 8.9 mg/dL (8.5-10.1); Chloride 101 mmol/L (98-107); Creatinine, Serum 0.98 mg/dL (0.55-1.02); EST Glomerular Filtration Rate 61 mL/min (>60); Est Glom Filt Rate - Afr Amer 74 mL/min (>60); Estimated Creatinine Clearance 44.91 ml/min; Globulin 3.3 g/dL (2.2-4.2); Glucose 331 mg/dL (74-106); Potassium 4.9 mmol/L (3.5-5.1); Protein, Total 6.4 g/dL (6.4-8.2); Sodium Level 138 mmol/L (136-145)
[2017-09-07] MEDS: Insulin Lispro 100 UNIT/ML INSULN.PEN 12 UNIT SC ×3 (09:15→17:00)
[2017-09-07] MEDS: dilTIAZem 60 MG Tablet 120 MG PO ×2 (09:18→22:58)
[2017-09-07] MEDS: Docusate Sodium 100 MG Capsule PO (09:19)
[2017-09-07] MEDS: Propranolol 10 MG Tablet PO ×2 (09:19→22:58)
[2017-09-07] MEDS: Digoxin 250 MCG Tablet PO (09:20)
[2017-09-07] MEDS: buPROPion (SR) 150 MG Tablet.SA PO ×2 (09:20→23:00)
[2017-09-07] MEDS: Famotidine 20 MG Tablet PO ×2 (09:20→23:00)
[2017-09-07] MEDS: guaiFENesin 1,200 MG Tablet 1200 MG PO ×2 (09:20→22:59)
[2017-09-07] MEDS: Furosemide 40 MG Tablet PO ×2 (09:20→22:59)
[2017-09-07] MEDS: Rivaroxaban 20 MG Tablet PO (09:21)
[2017-09-07] MEDS: Lisinopril 5 MG Tablet PO (09:21)
[2017-09-07 11:31] LABS: Bedside Glucose 360 mg/dL (70-110)
--- NOTE | 2017-09-07 12:47 | PCM.PROGNOTE ---
<Marie Hoover - Last Filed: 09/07/17 13:16> Subjective: Patient seen and examined. Shortness of breath improving. Denies fever, chills. Complains of nonproductive cough. No other complaints. - Physical Exam General: Alert, Oriented x3, Cooperative, No apparent distress HEENT: Atraumatic, PERRLA, EOMI, Normocephalic Neck: Supple, No JVD, Negative Carotid Bruits Lungs: Diminished, Wheezes Cardiovascular: - - Atrial fibrillation, rate controlled. Abdomen: Bowel Sounds Present, Soft, Non Tender, Non-Distended, Obese Extremities: No clubbing, No cyanosis, No edema, Capillary Refill Less than 3 Seconds Skin: No rashes, No breakdown Musculoskeletal: No Tenderness to Palpation of Joints or Extremities Neurological: Cranial nerves II-XII grossly intact, Neuro grossly intact Psych/Mental Status: Normal Affect, Appropriate Vital Signs Temp Pulse Resp BP Pulse Ox 98.6 F 99 18 147/74 H 2 09/07/17 08:59 09/07/17 08:59 09/07/17 09:33 09/07/17 08:59 09/07/17 08:59 Oxygen Flow Rate (L/min) 2 Oxygen Delivery Method Nasal Cannula Weight: 208 lb 15.971 oz Body Mass Index (BMI) 39.4 Intake and Output for Last 24 Hours 09/05/17 09/06/17 09/07/17 23:59 23:59 23:59 Intake Total 871 / 871 Output Total 1100 / 1100 Balance -229 / -229 Laboratory Tests Past 24 Hrs 09/07/17 09/07/17 06:10 06:10 WBC 13.5 H RBC 4.37 Hgb 11.5 L Hct 36.1 L MCV 82.6 MCH 26.3 L MCHC 31.9 L RDW 18.5 H RDW Differential 55.7 H Plt Count 310 MPV 10.9 Immature Gran % (Auto) 0.500 Neut % (Auto) 87.8 H Lymph % (Auto) 10.6 L [place] % (Auto) 0.9 Eos % (Auto) 0.1 Baso % (Auto) 0.1 Absolute Neuts (auto) 11.9 H Absolute Lymphs (auto) 1.43 Total Counted Not Reportable Sodium 138 Potassium 4.9 Chloride 101 Carbon Dioxide 25.0 Anion Gap 12 BUN 25 H Creatinine 0.98 Estim Creat Clear Calc 44.91 Est GFR (MDRD) Af Amer 74 Est GFR (MDRD) Non-Af 61 BUN/Creatinine Ratio 25.5 H Glucose 331 H Calcium 8.9 Total Bilirubin 0.30 AST 13 L ALT 25 Alkaline Phosphatase 102 Total Protein 6.4 Albumin 3.1 L Globulin 3.3 Albumin/Globulin Ratio 0.9 POC Glucose 09/07/17 09/07/17 11:26 06:52 POC Glucose 360 H 309 H Medical Necessity - Tobacco Use Smoking Status: Current every day smoker Assessment/Plan All Active Problems (Last Reviewed 09/07/17 @ 03:18 by Chau López MD) ABDULLAHI (obstructive sleep apnea) (Acute) Acute exacerbation of chronic obstructive pulmonary disease (COPD) (Acute) Syncope (Acute) Chest pain (Acute) Chest pain (Acute) COPD (chronic obstructive pulmonary disease) (Acute) Acute and chronic respiratory failure with hypoxia (Resolved) Acute bronchitis due to human metapneumovirus (Resolved) Atrial fibrillation with RVR (Resolved) COPD with acute exacerbation (Resolved) Gram-negative pneumonia (Resolved) Cardiomyopathy (Ruled-out) Patient is a 61-year-old female admitted 07/10/2017 due to syncope. She has a past medical history of COPD, chronic atrial fibrillation, hypertension, type 2 diabetes mellitus, hyperlipidemia, GERD, anxiety, chronic hypoxic respiratory failure, obesity, cardiomyopathy. 1. Acute COPD exacerbation on chronic severe COPD with chronic hypoxic respiratory failure-chest x-ray on admission shows no acute cardiopulmonary process. Albuterol and DuoNeb aerosol. Continue supplemental oxygen to maintain O2 at or above 90%. IV Solu-Medrol. Levaquin 250 mg p.o. daily. Patient's assisted living facility reports patient does not wear her home oxygen that she has available and is frequently smoking outside. Encourage smoking cessation. Patient follows with Dr. Prasad, pulmonary medicine with recent appointment 09/01/2017 where patient was placed on prednisone. 2. Chronic atrial fibrillation-rate controlled. Continue Cardizem, propanolol, Xarelto. 4. Type 2 diabetes mellitus-continue home insulin regimen. Accu-Cheks before meals at bedtime with sliding scale insulin as well. 5. Hypertension-stable, continue home Cardizem, Lasix, lisinopril, propanolol, digoxin regimen. 6. Hyperlipidemia-continue statin. 7. History of mild cardiomyopathy-recent echo 07/11/17 with EF 75%. 8. GERD-continue home famotidine regimen. 9. Anxiety-continue home buspirone, bupropion regimen. 10. Obesity-encouraged diet and lifestyle modifications. 11. Tobacco dependence-encourage smoking cessation. Nicotine replacement patch if desired. DVT prophylaxis-Xarelto This patient was seen by FRANKLIN Cardenas under the supervision of Dr. Fabian. <Jessica Fabian E - Last Filed: 09/07/17 13:35> - Physical Exam Vital Signs Temp Pulse Resp BP Pulse Ox 98.6 F 78 18 147/74 H 2 09/07/17 08:59 09/07/17 10:57 09/07/17 10:57 09/07/17 08:59 09/07/17 08:59 Oxygen Flow Rate (L/min) 2 Oxygen Delivery Method Nasal Cannula Weight: 208 lb 15.971 oz Body Mass Index (BMI) 39.4 Intake and Output for Last 24 Hours 09/05/17 09/06/17 09/07/17 23:59 23:59 23:59 Intake Total 871 / 871 Output Total 1100 / 1100 Balance -229 / -229 Laboratory Tests Past 24 Hrs 09/07/17 09/07/17 06:10 06:10 WBC 13.5 H RBC 4.37 Hgb 11.5 L Hct 36.1 L MCV 82.6 MCH 26.3 L MCHC 31.9 L RDW 18.5 H RDW Differential 55.7 H Plt Count 310 MPV 10.9 Immature Gran % (Auto) 0.500 Neut % (Auto) 87.8 H Lymph % (Auto) 10.6 L [place] % (Auto) 0.9 Eos % (Auto) 0.1 Baso % (Auto) 0.1 Absolute Neuts (auto) 11.9 H Absolute Lymphs (auto) 1.43 Total Counted Not Reportable Sodium 138 Potassium 4.9 Chloride 101 Carbon Dioxide 25.0 Anion Gap 12 BUN 25 H Creatinine 0.98 Estim Creat Clear Calc 44.91 Est GFR (MDRD) Af Amer 74 Est GFR (MDRD) Non-Af 61 BUN/Creatinine Ratio 25.5 H Glucose 331 H Calcium 8.9 Total Bilirubin 0.30 AST 13 L ALT 25 Alkaline Phosphatase 102 Total Protein 6.4 Albumin 3.1 L Globulin 3.3 Albumin/Globulin Ratio 0.9 POC Glucose 09/07/17 09/07/17 11:26 06:52 POC Glucose 360 H 309 H Assessment/Plan Hospitalist note: I am seeing this patient in conjunction with Marie Hoover. I independently seen and examined the patient. Progress note above, laboratory data and imaging studies reviewed. I concur with the above treatment plan. Patient admitted for worsening shortness of breath and wheezing, found to have acute COPD exacerbation. Patient seen and examined and she states that she is still short of breath and no improvement. Her vital signs are stable, remains on 2 L of oxygen. - Physical Exam General: Alert, Oriented x3, Cooperative, mildly short of breath, audible wheezing. HEENT: Atraumatic, PERRLA, EOMI. Neck: Supple, No JVD, Negative Carotid Bruits, Trachea Midline, Thyroid Normal. Lungs: Decreased breath sounds bilateral, bilateral expiratory wheezes, no rhonchi or crackles.. Cardiovascular: irregular rate, Normal S1, Normal S2, PMI Normal. Abdomen: Bowel Sounds Present, Soft, Non Tender, Non-Distended, No Hepato-splenomegaly. Extremities: No clubbing, No cyanosis, No edema Skin: No rashes, No breakdown Neurological: Neuro grossly intact Assessment and plan: #1 acute COPD exacerbation: She is on bronchodilators and IV steroids as well as p.o. Levaquin. Chest x-ray showed no acute infiltrate or pneumonia. She has been on oxygen at home and she has been on 2 L at this time. Her EKG revealed no acute ischemic changes or cardiac arrhythmias. Her routine blood work is remarkable for leukocytosis likely because of stress, otherwise normal. Plan to continue same treatment. #2 other chronic medical problems: Stable, continue current medications as above. This note was generated with [employer] dictation software. It may contain incorrect words, spelling, and punctuation that were not noted in checking the note before signing. Code Visit Inpatient E&M: 08689 Subs Hosp L2
[2017-09-07 16:30] LABS: Bedside Glucose 367 mg/dL (70-110)
--- NOTE | 2017-09-07 16:50 | NURSING ---
THIS RN TAKING OVER CARE AT THIS TIME.
[2017-09-07] MEDS: Insulin Lispro 100 UNIT/ML INSULN.PEN SC ×2 (17:00→22:58)
[2017-09-07] MEDS: Atorvastatin Calcium 40 MG Tablet PO (22:59)
[2017-09-07 23:56] LABS: Bedside Glucose 274 mg/dL (70-110)
[2017-09-08] VITALS (18 sets, daily range): BP systolic 113–130; BP diastolic 57–63; PULSE 62–103; RESP 16–21; TEMP 36.2–36.7; O2SAT 93–97
[2017-09-08] MEDS: Ipratropium/Albuterol Sulfate 3 ML AMPUL.NEB INHALATION ×6 (03:08→23:10)
[2017-09-08] MEDS: levoFLOXacin 250 MG Tablet PO (05:48)
[2017-09-08] MEDS: busPIRone 5 MG Tablet 10 MG PO ×3 (05:48→22:11)
[2017-09-08] MEDS: Gabapentin 100 MG Capsule PO ×3 (05:49→22:14)
[2017-09-08] MEDS: 0.9% NaCl Peripheral Flush Adult/Peds IV (05:51)
[2017-09-08] MEDS: HYDROcodone Bitartrate/Apap 5/325 Tablet PO ×3 (06:06→22:14)
[2017-09-08 06:21] LABS: Hematocrit 35.2 % (37-47); Hemoglobin 11.3 g/dl (12.0-15.0); Mean Corp Hgb Conc 32.1 g/gl (32-36); Mean Corpuscular Hgb 26.3 pg (27.0-32.0); Mean Corpuscular Volume 81.9 fL (81-99); Mean Platelet Vol. 10.9 fl (6.2-12.0); Platelet Count 298 K/mm3 (150-450); RBC Distribution Width CV 18.2 % (11.6-14.6); RBC Distribution Width SD 54.3 fl (35.1-43.9); White Blood Count 15.6 K/mm3 (4.4-11.0)
[2017-09-08 06:22] LABS: Scan Indicated on CBC? Y/N NO
[2017-09-08 06:40] LABS: Anion Gap 6 (5-15); BUN 23 mg/dL (7-18); BUN/Creat Ratio 28.4 RATIO (10-20); Calcium,Total 8.8 mg/dL (8.5-10.1); Chloride 101 mmol/L (98-107); Creatinine, Serum 0.81 mg/dL (0.55-1.02); EST Glomerular Filtration Rate 76 mL/min (>60); Est Glom Filt Rate - Afr Amer 92 mL/min (>60); Estimated Creatinine Clearance 54.34 ml/min; Glucose 238 mg/dL (74-106); Potassium 4.2 mmol/L (3.5-5.1); Sodium Level 135 mmol/L (136-145)
[2017-09-08 07:05] LABS: Bedside Glucose 253 mg/dL (70-110)
[2017-09-08] MEDS: Insulin Lispro 100 UNIT/ML INSULN.PEN 12 UNIT SC ×2 (07:59→11:25)
[2017-09-08] MEDS: predniSONE 20 MG Tablet 40 MG PO (07:59)
[2017-09-08] MEDS: Insulin Lispro 100 UNIT/ML INSULN.PEN SC ×4 (08:00→22:12)
[2017-09-08] MEDS: Digoxin 250 MCG Tablet PO (11:01)
[2017-09-08] MEDS: Propranolol 10 MG Tablet PO ×2 (11:01→22:12)
[2017-09-08] MEDS: Docusate Sodium 100 MG Capsule PO (11:01)
[2017-09-08] MEDS: dilTIAZem 60 MG Tablet 120 MG PO ×2 (11:01→22:12)
[2017-09-08] MEDS: Famotidine 20 MG Tablet PO ×2 (11:02→22:14)
[2017-09-08] MEDS: guaiFENesin 1,200 MG Tablet 1200 MG PO ×2 (11:02→22:13)
[2017-09-08] MEDS: buPROPion (SR) 150 MG Tablet.SA PO ×2 (11:02→22:14)
[2017-09-08] MEDS: Furosemide 40 MG Tablet PO ×2 (11:02→22:13)
[2017-09-08] MEDS: Lisinopril 5 MG Tablet PO (11:02)
[2017-09-08] MEDS: Rivaroxaban 20 MG Tablet PO (11:02)
--- NOTE | 2017-09-08 11:03 | NURSING ---
All 10o'clock meds verified with Suzanne Gordon RN. Unable to log into any computers near pt's room.
[2017-09-08 11:41] LABS: Bedside Glucose 390 mg/dL (70-110)
[2017-09-08] MEDS: Glucerna Shake 120 ML LIQUID PO ×3 (13:06→22:12)
--- NOTE | 2017-09-08 13:15 | PN_ITS ---
<Marie Hoover - Last Filed: 09/08/17 13:15> Subjective: Patient seen and examined. Notes mild improvement of shortness of breath compared to yesterday. Continues to have shortness of breath which is increased with minimal activity. Denies fever, chills. Denies significant cough. Had long discussion with patient regarding smoking cessation. She voices interest in quitting. - Physical Exam General: Alert, Oriented x3, Cooperative, No apparent distress HEENT: Atraumatic, PERRLA, EOMI, Normocephalic Neck: Supple, No JVD, Negative Carotid Bruits Lungs: Diminished, Wheezes Cardiovascular: - - Atrial fibrillation, rate controlled. Abdomen: Bowel Sounds Present, Soft, Non Tender, Non-Distended, Obese Extremities: No clubbing, No cyanosis, No edema, Capillary Refill Less than 3 Seconds Skin: No rashes, No breakdown Musculoskeletal: No Tenderness to Palpation of Joints or Extremities Neurological: Cranial nerves II-XII grossly intact, Neuro grossly intact Psych/Mental Status: Normal Affect, Appropriate Vital Signs Temp Pulse Resp BP Pulse Ox 97.6 F L 90 20 H 121/61 H 94 09/08/17 11:00 09/08/17 11:05 09/08/17 11:00 09/08/17 11:00 09/08/17 11:00 Oxygen Flow Rate (L/min) 1 Oxygen Delivery Method Nasal Cannula Weight: 208 lb 15.971 oz Body Mass Index (BMI) 39.4 Intake and Output for Last 24 Hours 09/06/17 09/07/17 09/08/17 23:59 23:59 23:59 Intake Total 1581 / 1581 460 / 460 Output Total 2900 / 2900 1400 / 1400 Balance -1319 / -1319 -940 / -940 Laboratory Tests Past 24 Hrs 09/08/17 09/08/17 05:33 05:33 WBC 15.6 H RBC 4.30 Hgb 11.3 L Hct 35.2 L MCV 81.9 MCH 26.3 L MCHC 32.1 RDW 18.2 H RDW Differential 54.3 H Plt Count 298 MPV 10.9 Sodium 135 L Potassium 4.2 Chloride 101 Carbon Dioxide 28.0 Anion Gap 6 BUN 23 H Creatinine 0.81 Estim Creat Clear Calc 54.34 Est GFR (MDRD) Af Amer 92 Est GFR (MDRD) Non-Af 76 BUN/Creatinine Ratio 28.4 H Glucose 238 H Calcium 8.8 POC Glucose 09/08/17 09/08/17 09/07/17 11:23 06:51 22:53 POC Glucose 390 H 253 H 274 H 09/07/17 16:26 POC Glucose 367 H Medical Necessity - Tobacco Use Smoking Status: Current every day smoker Assessment/Plan All Active Problems (Last Reviewed 09/07/17 @ 03:18 by Chau López MD) ABDULLAHI (obstructive sleep apnea) (Acute) Acute exacerbation of chronic obstructive pulmonary disease (COPD) (Acute) Syncope (Acute) Chest pain (Acute) Chest pain (Acute) COPD (chronic obstructive pulmonary disease) (Acute) Acute and chronic respiratory failure with hypoxia (Resolved) Acute bronchitis due to human metapneumovirus (Resolved) Atrial fibrillation with RVR (Resolved) COPD with acute exacerbation (Resolved) Gram-negative pneumonia (Resolved) Cardiomyopathy (Ruled-out) Patient is a 61-year-old female admitted 07/10/2017 due to syncope. She has a past medical history of COPD, chronic atrial fibrillation, hypertension, type 2 diabetes mellitus, hyperlipidemia, GERD, anxiety, chronic hypoxic respiratory failure, obesity, cardiomyopathy. 1. Acute COPD exacerbation on chronic severe COPD with chronic hypoxic respiratory failure-chest x-ray on admission shows no acute cardiopulmonary process. Albuterol and DuoNeb aerosol. Continue supplemental oxygen to maintain O2 at or above 90%. IV Solu-Medrol. Levaquin 250 mg p.o. daily. Patient's assisted living facility reports patient does not wear her home oxygen that she has available and is frequently smoking outside. Encourage smoking cessation. Patient follows with Dr. Prasad, pulmonary medicine with recent appointment 09/01/2017 where patient was placed on prednisone. 2. Chronic atrial fibrillation-rate controlled. Continue Cardizem, propanolol, Xarelto. 4. Type 2 diabetes mellitus-continue home insulin regimen. Accu-Cheks before meals at bedtime with sliding scale insulin as well. 5. Hypertension-stable, continue home Cardizem, Lasix, lisinopril, propanolol, digoxin regimen. 6. Hyperlipidemia-continue statin. 7. History of mild cardiomyopathy-recent echo 07/11/17 with EF 75%. 8. GERD-continue home famotidine regimen. 9. Anxiety-continue home buspirone, bupropion regimen. 10. Obesity-encouraged diet and lifestyle modifications. 11. Tobacco dependence-encourage smoking cessation. Nicotine replacement patch if desired. DVT prophylaxis-Xarelto This patient was seen by FRANKLIN Cardenas under the supervision of Dr. Fabian. <Jessica Fabian E - Last Filed: 09/08/17 13:32> - Physical Exam Vital Signs Temp Pulse Resp BP Pulse Ox 97.6 F L 90 20 H 121/61 H 94 09/08/17 11:00 09/08/17 11:05 09/08/17 11:00 09/08/17 11:00 09/08/17 11:00 Oxygen Flow Rate (L/min) 1 Oxygen Delivery Method Nasal Cannula Weight: 208 lb 15.971 oz Body Mass Index (BMI) 39.4 Intake and Output for Last 24 Hours 09/06/17 09/07/17 09/08/17 23:59 23:59 23:59 Intake Total 1581 / 1581 460 / 460 Output Total 2900 / 2900 1400 / 1400 Balance -1319 / -1319 -940 / -940 Laboratory Tests Past 24 Hrs 09/08/17 09/08/17 05:33 05:33 WBC 15.6 H RBC 4.30 Hgb 11.3 L Hct 35.2 L MCV 81.9 MCH 26.3 L MCHC 32.1 RDW 18.2 H RDW Differential 54.3 H Plt Count 298 MPV 10.9 Sodium 135 L Potassium 4.2 Chloride 101 Carbon Dioxide 28.0 Anion Gap 6 BUN 23 H Creatinine 0.81 Estim Creat Clear Calc 54.34 Est GFR (MDRD) Af Amer 92 Est GFR (MDRD) Non-Af 76 BUN/Creatinine Ratio 28.4 H Glucose 238 H Calcium 8.8 POC Glucose 09/08/17 09/08/17 09/07/17 11:23 06:51 22:53 POC Glucose 390 H 253 H 274 H 09/07/17 16:26 POC Glucose 367 H Assessment/Plan Hospitalist note: I am seeing this patient in conjunction with Marie Hoover. I independently seen and examined the patient. Progress note above, laboratory data and imaging studies reviewed. I concur with the above treatment plan. She reported minimal improvement, still getting more short of breath upon ambulation or minimal activity. She remains on 1-2 L of oxygen, other vital signs are stable. - Physical Exam General: Alert, Oriented x3, Cooperative, mildly short of breath, audible wheezing. HEENT: Atraumatic, PERRLA, EOMI. Neck: Supple, No JVD, Negative Carotid Bruits, Trachea Midline, Thyroid Normal. Lungs: Decreased breath sounds bilateral, bilateral expiratory wheezes, no rhonchi or crackles.. Cardiovascular: irregular rate, Normal S1, Normal S2, PMI Normal. Abdomen: Bowel Sounds Present, Soft, Non Tender, Non-Distended, No Hepato- splenomegaly. Extremities: No clubbing, No cyanosis, No edema Skin: No rashes, No breakdown Neurological: Neuro grossly intact Assessment and plan: #1 acute COPD exacerbation: Remained on bronchodilators and IV steroids as well as p.o. Levaquin. Chest x-ray showed no acute infiltrate or pneumonia. She has been on oxygen at home and she has been on 1-2 l at this time. Her EKG revealed no acute ischemic changes or cardiac arrhythmias. Her routine blood work is remarkable for leukocytosis likely because of stress, otherwise normal. Plan to continue same treatment. #2 other chronic medical problems: Stable, continue current medications as above. This note was generated with [employer] dictation software. It may contain incorrect words, spelling, and punctuation that were not noted in checking the note before signing. Code Visit Inpatient E&M: 71728 Subs Hosp L2
[2017-09-08] MEDS: Insulin Lispro 100 UNIT/ML INSULN.PEN 15 UNIT SC (16:49)
[2017-09-08 16:56] LABS: Bedside Glucose 279 mg/dL (70-110)
[2017-09-08] MEDS: Atorvastatin Calcium 40 MG Tablet PO (22:13)
[2017-09-08 23:21] LABS: Bedside Glucose 262 mg/dL (70-110)
[2017-09-09] VITALS (13 sets, daily range): BP systolic 110–138; BP diastolic 57–74; PULSE 50–78; RESP 16–24; TEMP 36.3–36.7; O2SAT 93–98
[2017-09-09] MEDS: HYDROcodone Bitartrate/Apap 5/325 Tablet PO ×2 (04:28→14:01)
[2017-09-09] MEDS: Gabapentin 100 MG Capsule PO ×2 (05:14→13:57)
[2017-09-09] MEDS: busPIRone 5 MG Tablet 10 MG PO ×2 (05:14→13:57)
[2017-09-09] MEDS: levoFLOXacin 250 MG Tablet PO (05:14)
[2017-09-09 07:01] LABS: Bedside Glucose 83 mg/dL (70-110)
[2017-09-09] MEDS: Ipratropium/Albuterol Sulfate 3 ML AMPUL.NEB INHALATION ×2 (07:15→10:53)
--- NOTE | 2017-09-09 08:22 | NURSING ---
O2 DECREASED TO 1L [place]
[2017-09-09] MEDS: predniSONE 20 MG Tablet 40 MG PO (08:24)
[2017-09-09] MEDS: Propranolol 10 MG Tablet PO (08:25)
[2017-09-09] MEDS: Docusate Sodium 100 MG Capsule PO (08:25)
[2017-09-09] MEDS: dilTIAZem 60 MG Tablet 120 MG PO (08:25)
[2017-09-09] MEDS: Glucerna Shake 120 ML LIQUID PO ×2 (08:25→13:57)
[2017-09-09] MEDS: Digoxin 250 MCG Tablet PO (08:26)
[2017-09-09] MEDS: Furosemide 40 MG Tablet PO (08:26)
[2017-09-09] MEDS: guaiFENesin 1,200 MG Tablet 1200 MG PO (08:26)
[2017-09-09] MEDS: Famotidine 20 MG Tablet PO (08:26)
[2017-09-09] MEDS: buPROPion (SR) 150 MG Tablet.SA PO (08:27)
[2017-09-09] MEDS: Lisinopril 5 MG Tablet PO (08:27)
[2017-09-09] MEDS: Rivaroxaban 20 MG Tablet PO (08:27)
--- NOTE | 2017-09-09 10:02 | CASEMGMT ---
Addendum entered by Madeline Sarabia 09/09/17 13:00: Call again to [facility] and per Joyce, the nurse states that pt does have an oxygen concentrator in her room but that pt is rarely in her room as she is always 'outside smoking.' This RN CM to room to speak with pt and pt states, 'I don't know what all I have in there but I do those treatments 3-4 times/day.' Advised pt that that is the nebulizer and to continue those but advised her that she also needs to be using oxygen in room and not when smoking, voices understanding. Also encouraged pt to quit smoking at this time and pt voices understanding. Pt's only question is if we obtained a ride for her to go home. Advised pt that transport was set up for 1500 today and voices understanding. Jane GORDON CM Original Note: Message left with Miriam Vazquez to call this RN CAMRYN back in regards to pt's oxygen at [place]. Jane GORDON CM
--- NOTE | 2017-09-09 10:47 | CASEMGMT ---
Patient is going to be discharged back to [facility] today. SW called [facility] and arranged for patient to get picked up at 3p via wheelchair van. (This was done early because it is often hard to get transportation via [facility] van in the afternoon. Briana DAHL MSW
[2017-09-09 11:11] LABS: Bedside Glucose 255 mg/dL (70-110)
--- NOTE | 2017-09-09 11:40 | NURSING ---
O2 DC'D - WILL RECHECK O2 SAT ON RA
--- NOTE | 2017-09-09 11:57 | PCM.DC ---
You will use the following diet at home:: Calorie/Carbohydrate Controlled (specify 1200, 1400, etc) Discharge Activity: Return to Normal Activity Call your doctor if you observe: Fever of 101 or Higher, Shortness of breath, Dizziness, Fainting spells Allergies/Adverse Reactions: Allergies venom-honey bee [bee venom (honey bee)] Allergy (Verified 09/06/17 22:18) Swelling levofloxacin [From Levaquin] Adverse Reaction (Verified 09/06/17 22:18) Nausea oxycodone HCl [From Percocet] Adverse Reaction (Verified 09/06/17 22:18) Nausea Penicillins Adverse Reaction (Verified 09/06/17 22:18) Nausea/Vom/Diarrhea Medications to take at Discharge Albuterol Aerosols [Ventolin Aerosols] 2.5 mg INHALATION Q4H PRN PRN 05/12/17 Atorvastatin Calcium [Lipitor] 40 mg PO QHS 05/12/17 Budesonide/Formoterol 160/4.5 [Symbicort 160/4.5 Mcg Inhaler (SP)] 2 puff INHALATION BID 05/12/17 Bupropion HCl [Bupropion HCl Sr] 150 mg PO BID 05/12/17 Buspirone HCl 10 mg PO TID 05/12/17 Digoxin 250 mcg PO DAILY 05/12/17 Diltiazem [Cardizem] 120 mg PO BID 05/12/17 Famotidine [Pepcid] 20 mg PO BID 05/12/17 Furosemide [Lasix] 40 mg PO BID 05/12/17 Glucagon,Human Recombinant [Glucagon Emergency Kit] 1 mg IM PRN PRN 05/12/17 Guaifenesin [Mucinex] 1,200 mg PO BID 05/12/17 Insulin Lispro [Humalog] 12 unit SQ TIDCM 05/12/17 Ipratropium/Albuterol Sulfate [Duoneb] 3 ml INHALATION Q4H.RT 05/12/17 Lisinopril [Prinivil] 5 mg PO DAILY 05/12/17 Potassium Chloride [K-Dur] 10 meq PO BID 05/12/17 Propranolol HCl [Inderal (Beta Rubén)] 10 mg PO BID 05/12/17 Rivaroxaban [Xarelto] 20 mg PO DAILY 05/12/17 Sennosides/Docusate Sodium [Senna-Docusate Sodium Tablet] 2 tab PO DAILY PRN PRN 05/12/17 Hydrocodone Bitart/Apap 5-325 [[place] 5/325] 1 tab PO Q6H PRN PRN 08/11/17 Mag Hydrox/Al Hydrox/Simeth [Mylanta II] 30 ml PO Q6H PRN PRN 08/11/17 Polyethylene Glycol 3350 [Miralax] 17 gm PO PRN PRN 08/11/17 docusate sodium 100 mg capsule 100 mg PO QDAY 09/01/17 gabapentin 100 mg capsule 100 mg PO TID cap 09/01/17 nystatin 100,000 unit/mL oral suspension 5 ml MUCOUS MEMBRANE TID #250 ml 09/01/17 Insulin Glargine,Hum.rec.anlog [Lantus Solostar] 55 unit SQ QHS 09/06/17 Prednisone See Taper PO DAILY #30 tab 09/09/17 levoFLOXacin tablet [Levaquin tablet] 250 mg PO DAILY@0600 #3 tab 09/09/17 The following prescriptions were given: levoFLOXacin tablet [Levaquin tablet] 250 mg PO DAILY@0600 #3 tab Prednisone See Taper PO DAILY #30 tab Primary Care Physician: Camden Burger [Primary Care Provider] - Please follow up with your Primary Care Physician in: 1 Week Test Results: Test results from this visit will be discussed in further detail at your follow-up appointment, if applicable. Please Follow Up With: Marylu Howell NP-C When: 1-2 Weeks Proposed Discharge Date: 09/09/17
--- NOTE | 2017-09-09 11:58 | PCM.DC.SUM ---
<Marie Hoover - Last Filed: 09/09/17 12:03> Discharge Date and Diagnosis Date of Admission: 09/06/17 Date of Discharge: 09/09/17 - Primary Discharge Diagnosis 1. Acute COPD exacerbation on chronic severe COPD with chronic hypoxic respiratory failure-acute respiratory failure ruled out - Secondary Discharge Diagnosis Chronic Problems (Last Reviewed 09/07/17 @ 03:18 by Chau López MD) Tobacco dependence due to cigarettes (Chronic) Non-compliance (Chronic) Microcytic anemia (Chronic) Hypersomnia (Chronic) Anemia (Chronic) Hypomagnesemia (Chronic) HTN (hypertension) (Chronic) Morbid obesity with BMI of 40.0-44.9, adult (Chronic) Chronic pain (Chronic) Chronic atrial fibrillation (Chronic) Chronic hypoxemic respiratory failure (Chronic) non-compliant with oxygen Hyperlipemia (Chronic) ECHO in June of 2017 showed a 75% EF Type 2 diabetes mellitus (Chronic) uncontrolled GERD (gastroesophageal reflux disease) (Chronic) Anxiety (Chronic) Insomnia (Chronic) Hospital Course and Treatment Imaging Results: Diagnostic Data Chest X-Ray 09/07/17 05:10 IMPRESSION: Degenerative changes, as described above. No demonstrated acute cardiopulmonary process. Electronically Signed: Rimma Carreon MD at 12:23 EDT Tel , Service support , Operations: None Procedures: None Summary of Care Provided: Patient is a 61-year-old female admitted 07/10/2017 due to syncope. She has a past medical history of COPD, chronic atrial fibrillation, hypertension, type 2 diabetes mellitus, hyperlipidemia, GERD, anxiety, chronic hypoxic respiratory failure, obesity, cardiomyopathy. 1. Acute COPD exacerbation on chronic severe COPD with chronic hypoxic respiratory failure-chest x-ray on admission shows no acute cardiopulmonary process. Continue home albuterol and DuoNeb aerosol and inhaler regimen. Patient weaned off of oxygen and stable on room air. She has supplemental oxygen available at assisted living facility. Patient will be discharged on prednisone taper and oral Levaquin 250 mg for 3 days. Patient's assisted living facility reports patient does not wear oxygen available at facility and is frequently outside smoking. Encourage smoking cessation. Follow-up with Marylu Howell NP pulmonary medicine in 1-2 weeks. 2. Chronic atrial fibrillation-rate controlled. Continue Cardizem, propanolol, Xarelto. 4. Type 2 diabetes mellitus-continue home insulin regimen. 5. Hypertension-stable, continue home Cardizem, Lasix, lisinopril, propanolol, digoxin regimen. 6. Hyperlipidemia-continue statin. 7. History of mild cardiomyopathy-recent echo 07/11/17 with EF 75%. 8. GERD-continue home famotidine regimen. 9. Anxiety-continue home buspirone, bupropion regimen. 10. Obesity-encouraged diet and lifestyle modifications. 11. Tobacco dependence-encourage smoking cessation. General: Alert, Oriented x3, Cooperative, No apparent distress HEENT: Atraumatic, PERRLA, EOMI, Normocephalic Neck: Supple, No JVD, Negative Carotid Bruits Lungs: Diminished, Wheezes Cardiovascular: - - Atrial fibrillation, rate controlled. Abdomen: Bowel Sounds Present, Soft, Non Tender, Non-Distended, Obese Extremities: No clubbing, No cyanosis, No edema, Capillary Refill Less than 3 Seconds Skin: No rashes, No breakdown Musculoskeletal: No Tenderness to Palpation of Joints or Extremities Neurological: Cranial nerves II-XII grossly intact, Neuro grossly intact Psych/Mental Status: Normal Affect, Appropriate Patient seen exam prior to discharge. Physical assessment as noted above. Patient is stable for discharge to assisted living facility. This patient was seen by FRANKLIN Cardenas under the supervision of Dr. Fabian. Discharge Diet: 1800 Calorie Control Diet, Carb Control Diet Discharge Activity: Return to Normal Activity Call your doctor if you observe: Fever of 101 or Higher, Shortness of breath, Dizziness, Fainting spells Home Medications: Medications to take at Discharge Albuterol Aerosols [Ventolin Aerosols] 2.5 mg INHALATION Q4H PRN PRN 05/12/17 Atorvastatin Calcium [Lipitor] 40 mg PO QHS 05/12/17 Budesonide/Formoterol 160/4.5 [Symbicort 160/4.5 Mcg Inhaler (SP)] 2 puff INHALATION BID 05/12/17 Bupropion HCl [Bupropion HCl Sr] 150 mg PO BID 05/12/17 Buspirone HCl 10 mg PO TID 05/12/17 Digoxin 250 mcg PO DAILY 05/12/17 Diltiazem [Cardizem] 120 mg PO BID 05/12/17 Famotidine [Pepcid] 20 mg PO BID 05/12/17 Furosemide [Lasix] 40 mg PO BID 05/12/17 Glucagon,Human Recombinant [Glucagon Emergency Kit] 1 mg IM PRN PRN 05/12/17 Guaifenesin [Mucinex] 1,200 mg PO BID 05/12/17 Insulin Lispro [Humalog] 12 unit SQ TIDCM 05/12/17 Ipratropium/Albuterol Sulfate [Duoneb] 3 ml INHALATION Q4H.RT 05/12/17 Lisinopril [Prinivil] 5 mg PO DAILY 05/12/17 Potassium Chloride [K-Dur] 10 meq PO BID 05/12/17 Propranolol HCl [Inderal (Beta Rubén)] 10 mg PO BID 05/12/17 Rivaroxaban [Xarelto] 20 mg PO DAILY 05/12/17 Sennosides/Docusate Sodium [Senna-Docusate Sodium Tablet] 2 tab PO DAILY PRN PRN 05/12/17 Hydrocodone Bitart/Apap 5-325 [[place] 5/325] 1 tab PO Q6H PRN PRN 08/11/17 Mag Hydrox/Al Hydrox/Simeth [Mylanta II] 30 ml PO Q6H PRN PRN 08/11/17 Polyethylene Glycol 3350 [Miralax] 17 gm PO PRN PRN 08/11/17 docusate sodium 100 mg capsule 100 mg PO QDAY 09/01/17 gabapentin 100 mg capsule 100 mg PO TID cap 09/01/17 nystatin 100,000 unit/mL oral suspension 5 ml MUCOUS MEMBRANE TID #250 ml 09/01/17 Insulin Glargine,Hum.rec.anlog [Lantus Solostar] 55 unit SQ QHS 09/06/17 Prednisone See Taper PO DAILY #30 tab 09/09/17 levoFLOXacin tablet [Levaquin tablet] 250 mg PO DAILY@0600 #3 tab 09/09/17 Following Prescrptions Were Given to Patient: levoFLOXacin tablet [Levaquin tablet] 250 mg PO DAILY@0600 #3 tab Prednisone See Taper PO DAILY #30 tab Primary Care Physician: Camden Burger [Primary Care Provider] - Please follow up with your Primary Care Physician in: 1 Week Please Follow Up With: Howell,Marylu, HEAD DOFFER-C When: 1-2 Weeks Disposition: Asstd Living/Non-Skill [place] Minutes spent on discharge:: 35 Patient Condition:: Stable Medical Necessity - Tobacco Use Smoking Status: Current every day smoker Meaningful Use Info Meaningful Use Diagnoses (Choose all that apply): None applicable <Jessica Fabian - Last Filed: 09/09/17 13:38> Discharge Date and Diagnosis - Secondary Discharge Diagnosis Chronic Problems (Last Reviewed 09/07/17 @ 03:18 by Chau López MD) Tobacco dependence due to cigarettes (Chronic) Non-compliance (Chronic) Microcytic anemia (Chronic) Hypersomnia (Chronic) Anemia (Chronic) Hypomagnesemia (Chronic) HTN (hypertension) (Chronic) Morbid obesity with BMI of 40.0-44.9, adult (Chronic) Chronic pain (Chronic) Chronic atrial fibrillation (Chronic) Chronic hypoxemic respiratory failure (Chronic) non-compliant with oxygen Hyperlipemia (Chronic) ECHO in June of 2017 showed a 75% EF Type 2 diabetes mellitus (Chronic) uncontrolled GERD (gastroesophageal reflux disease) (Chronic) Anxiety (Chronic) Insomnia (Chronic) Hospital Course and Treatment Summary of Care Provided: Hospitalist note: Discharge summary above reviewed as well as physical examination and I agree with above discharge and treatment plan. Patient was admitted for worsening shortness of breath and wheezing as well as cough and she was found to have acute COPD exacerbation in context of history of severe COPD and chronic hypoxic respiratory failure. A chest x-ray showed no acute findings, pneumonia ruled out. His routine blood work was remarkable for leukocytosis due to steroids, otherwise was normal. She was treated with IV steroids, bronchodilators and antibiotics. This patient is known to be noncompliant, continued to smoke and not using her oxygen at home. With above-mentioned treatment, her symptoms improved and she remained stable on 1 L of oxygen. Her other vital signs were stable. Patient has been back and forth regarding having an oxygen at home. Patient discharged home in a stable medical condition, discharged on a course of prednisone, discharged on Levaquin, recommended to use oxygen at the assisted living facility at 1-2 L, recommended follow-up with pulmonology in 1-2 weeks and follow-up with PCP in 1 week. - Physical Exam General: Alert, Oriented x3, Cooperative, mildly short of breath. HEENT: Atraumatic, PERRLA, EOMI. Neck: Supple, No JVD, Negative Carotid Bruits, Trachea Midline, Thyroid Normal. Lungs: Decreased breath sounds bilateral, bilateral expiratory wheezes, no rhonchi or crackles.. Cardiovascular: irregular rate, Normal S1, Normal S2, PMI Normal. Abdomen: Bowel Sounds Present, Soft, Non Tender, Non-Distended, No Hepato-splenomegaly. Extremities: No clubbing, No cyanosis, No edema Skin: No rashes, No breakdown Neurological: Neuro grossly intact. This note was generated with [employer] dictation software. It may contain incorrect words, spelling, and punctuation that were not noted in checking the note before signing. Minutes spent on discharge:: 27 Patient Condition:: Stable Medical Necessity - Tobacco Use Smoking Status: Current every day smoker Tobacco Use: Cigarettes Meaningful Use Info Meaningful Use Diagnoses (Choose all that apply): None applicable Code Visit Inpatient E&M: 07556 Disch Hosp
--- NOTE | 2017-09-09 12:03 | DS.PCM_ITS ---
<Marie Hoover - Last Filed: 09/09/17 12:03> Discharge Date and Diagnosis Date of Admission: 09/06/17 Date of Discharge: 09/09/17 - Primary Discharge Diagnosis 1. Acute COPD exacerbation on chronic severe COPD with chronic hypoxic respiratory failure-acute respiratory failure ruled out - Secondary Discharge Diagnosis Chronic Problems (Last Reviewed 09/07/17 @ 03:18 by Chau López MD) Tobacco dependence due to cigarettes (Chronic) Non-compliance (Chronic) Microcytic anemia (Chronic) Hypersomnia (Chronic) Anemia (Chronic) Hypomagnesemia (Chronic) HTN (hypertension) (Chronic) Morbid obesity with BMI of 40.0-44.9, adult (Chronic) Chronic pain (Chronic) Chronic atrial fibrillation (Chronic) Chronic hypoxemic respiratory failure (Chronic) non-compliant with oxygen Hyperlipemia (Chronic) ECHO in June of 2017 showed a 75% EF Type 2 diabetes mellitus (Chronic) uncontrolled GERD (gastroesophageal reflux disease) (Chronic) Anxiety (Chronic) Insomnia (Chronic) Hospital Course and Treatment Imaging Results: Diagnostic Data Chest X-Ray 09/07/17 05:10 IMPRESSION: Degenerative changes, as described above. No demonstrated acute cardiopulmonary process. Electronically Signed: Rimma Carreon MD at 12:23 EDT Tel , Service support , Operations: None Procedures: None Summary of Care Provided: Patient is a 61-year-old female admitted 07/10/2017 due to syncope. She has a past medical history of COPD, chronic atrial fibrillation, hypertension, type 2 diabetes mellitus, hyperlipidemia, GERD, anxiety, chronic hypoxic respiratory failure, obesity, cardiomyopathy. 1. Acute COPD exacerbation on chronic severe COPD with chronic hypoxic respiratory failure-chest x-ray on admission shows no acute cardiopulmonary process. Continue home albuterol and DuoNeb aerosol and inhaler regimen. Patient weaned off of oxygen and stable on room air. She has supplemental oxygen available at assisted living facility. Patient will be discharged on prednisone taper and oral Levaquin 250 mg for 3 days. Patient's assisted living facility reports patient does not wear oxygen available at facility and is frequently outside smoking. Encourage smoking cessation. Follow-up with Marylu Howell NP pulmonary medicine in 1-2 weeks. 2. Chronic atrial fibrillation-rate controlled. Continue Cardizem, propanolol, Xarelto. 4. Type 2 diabetes mellitus-continue home insulin regimen. 5. Hypertension-stable, continue home Cardizem, Lasix, lisinopril, propanolol, digoxin regimen. 6. Hyperlipidemia-continue statin. 7. History of mild cardiomyopathy-recent echo 07/11/17 with EF 75%. 8. GERD-continue home famotidine regimen. 9. Anxiety-continue home buspirone, bupropion regimen. 10. Obesity-encouraged diet and lifestyle modifications. 11. Tobacco dependence-encourage smoking cessation. General: Alert, Oriented x3, Cooperative, No apparent distress HEENT: Atraumatic, PERRLA, EOMI, Normocephalic Neck: Supple, No JVD, Negative Carotid Bruits Lungs: Diminished, Wheezes Cardiovascular: - - Atrial fibrillation, rate controlled. Abdomen: Bowel Sounds Present, Soft, Non Tender, Non-Distended, Obese Extremities: No clubbing, No cyanosis, No edema, Capillary Refill Less than 3 Seconds Skin: No rashes, No breakdown Musculoskeletal: No Tenderness to Palpation of Joints or Extremities Neurological: Cranial nerves II-XII grossly intact, Neuro grossly intact Psych/Mental Status: Normal Affect, Appropriate Patient seen exam prior to discharge. Physical assessment as noted above. Patient is stable for discharge to assisted living facility. This patient was seen by FRANKLIN Cardenas under the supervision of Dr. Fabian. Discharge Diet: 1800 Calorie Control Diet, Carb Control Diet Discharge Activity: Return to Normal Activity Call your doctor if you observe: Fever of 101 or Higher, Shortness of breath, Dizziness, Fainting spells Home Medications: Medications to take at Discharge Albuterol Aerosols [Ventolin Aerosols] 2.5 mg INHALATION Q4H PRN PRN 05/12/17 Atorvastatin Calcium [Lipitor] 40 mg PO QHS 05/12/17 Budesonide/Formoterol 160/4.5 [Symbicort 160/4.5 Mcg Inhaler (SP)] 2 puff INHALATION BID 05/12/17 Bupropion HCl [Bupropion HCl Sr] 150 mg PO BID 05/12/17 Buspirone HCl 10 mg PO TID 05/12/17 Digoxin 250 mcg PO DAILY 05/12/17 Diltiazem [Cardizem] 120 mg PO BID 05/12/17 Famotidine [Pepcid] 20 mg PO BID 05/12/17 Furosemide [Lasix] 40 mg PO BID 05/12/17 Glucagon,Human Recombinant [Glucagon Emergency Kit] 1 mg IM PRN PRN 05/12/17 Guaifenesin [Mucinex] 1,200 mg PO BID 05/12/17 Insulin Lispro [Humalog] 12 unit SQ TIDCM 05/12/17 Ipratropium/Albuterol Sulfate [Duoneb] 3 ml INHALATION Q4H.RT 05/12/17 Lisinopril [Prinivil] 5 mg PO DAILY 05/12/17 Potassium Chloride [K-Dur] 10 meq PO BID 05/12/17 Propranolol HCl [Inderal (Beta Rubén)] 10 mg PO BID 05/12/17 Rivaroxaban [Xarelto] 20 mg PO DAILY 05/12/17 Sennosides/Docusate Sodium [Senna-Docusate Sodium Tablet] 2 tab PO DAILY PRN PRN 05/12/17 Hydrocodone Bitart/Apap 5-325 [[place] 5/325] 1 tab PO Q6H PRN PRN 08/11/17 Mag Hydrox/Al Hydrox/Simeth [Mylanta II] 30 ml PO Q6H PRN PRN 08/11/17 Polyethylene Glycol 3350 [Miralax] 17 gm PO PRN PRN 08/11/17 docusate sodium 100 mg capsule 100 mg PO QDAY 09/01/17 gabapentin 100 mg capsule 100 mg PO TID cap 09/01/17 nystatin 100,000 unit/mL oral suspension 5 ml MUCOUS MEMBRANE TID #250 ml Insulin Glargine,Hum.rec.anlog [Lantus Solostar] 55 unit SQ QHS 09/06/17 Prednisone See Taper PO DAILY #30 tab 09/09/17 levoFLOXacin tablet [Levaquin tablet] 250 mg PO DAILY@0600 #3 tab 09/09/17 Following Prescrptions Were Given to Patient: levoFLOXacin tablet [Levaquin tablet] 250 mg PO DAILY@0600 #3 tab Prednisone See Taper PO DAILY #30 tab Primary Care Physician: Camden Burger [Primary Care Provider] - Please follow up with your Primary Care Physician in: 1 Week Please Follow Up With: Howell,Marylu, [employer] When: 1-2 Weeks Disposition: Asstd Living/Non-Skill [place] Minutes spent on discharge:: 35 Patient Condition:: Stable Medical Necessity - Tobacco Use Smoking Status: Current every day smoker Meaningful Use Info Meaningful Use Diagnoses (Choose all that apply): None applicable <Jessica Fabian - Last Filed: 09/09/17 13:38> Discharge Date and Diagnosis - Secondary Discharge Diagnosis Chronic Problems (Last Reviewed 09/07/17 @ 03:18 by Chau López MD) Tobacco dependence due to cigarettes (Chronic) Non-compliance (Chronic) Microcytic anemia (Chronic) Hypersomnia (Chronic) Anemia (Chronic) Hypomagnesemia (Chronic) HTN (hypertension) (Chronic) Morbid obesity with BMI of 40.0-44.9, adult (Chronic) Chronic pain (Chronic) Chronic atrial fibrillation (Chronic) Chronic hypoxemic respiratory failure (Chronic) non-compliant with oxygen Hyperlipemia (Chronic) ECHO in June of 2017 showed a 75% EF Type 2 diabetes mellitus (Chronic) uncontrolled GERD (gastroesophageal reflux disease) (Chronic) Anxiety (Chronic) Insomnia (Chronic) Hospital Course and Treatment Summary of Care Provided: Hospitalist note: Discharge summary above reviewed as well as physical examination and I agree with above discharge and treatment plan. Patient was admitted for worsening shortness of breath and wheezing as well as cough and she was found to have acute COPD exacerbation in context of history of severe COPD and chronic hypoxic respiratory failure. A chest x-ray showed no acute findings, pneumonia ruled out. His routine blood work was remarkable for leukocytosis due to steroids, otherwise was normal. She was treated with IV steroids, bronchodilators and antibiotics. This patient is known to be noncompliant, continued to smoke and not using her oxygen at home. With above-mentioned treatment, her symptoms improved and she remained stable on 1 L of oxygen. Her other vital signs were stable. Patient has been back and forth regarding having an oxygen at home. Patient discharged home in a stable medical condition , discharged on a course of prednisone, discharged on Levaquin, recommended to use oxygen at the assisted living facility at 1-2 L, recommended follow-up with pulmonology in 1-2 weeks and follow-up with PCP in 1 week. - Physical Exam General: Alert, Oriented x3, Cooperative, mildly short of breath. HEENT: Atraumatic, PERRLA, EOMI. Neck: Supple, No JVD, Negative Carotid Bruits, Trachea Midline, Thyroid Normal. Lungs: Decreased breath sounds bilateral, bilateral expiratory wheezes, no rhonchi or crackles.. Cardiovascular: irregular rate, Normal S1, Normal S2, PMI Normal. Abdomen: Bowel Sounds Present, Soft, Non Tender, Non-Distended, No Hepato- splenomegaly. Extremities: No clubbing, No cyanosis, No edema Skin: No rashes, No breakdown Neurological: Neuro grossly intact. This note was generated with [employer] dictation software. It may contain incorrect words, spelling, and punctuation that were not noted in checking the note before signing. Minutes spent on discharge:: 27 Patient Condition:: Stable Medical Necessity - Tobacco Use Smoking Status: Current every day smoker Tobacco Use: Cigarettes Meaningful Use Info Meaningful Use Diagnoses (Choose all that apply): None applicable Code Visit Inpatient E&M: 33318 Disch Hosp
[2017-09-09] MEDS: Insulin Lispro 100 UNIT/ML INSULN.PEN SC (12:15)
[2017-09-09] MEDS: Insulin Lispro 100 UNIT/ML INSULN.PEN 15 UNIT SC (12:15)
--- NOTE | 2017-09-09 14:16 | NURSING ---
REPORT CALLED TO TONY Chance [facility]
== END 2017-09-09 14:56 | disposition home or self-care (01) | DRG 88 ==
LOC: ED 22:32 → PCU 09-07 01:03
PROVIDERS: Nurse Practitioner Family; Admitting Provider Internal Medicine; Emergency Provider Emergency Medicine; Family Provider Family Medicine; PCP Family Medicine; Visit Provider Hospitalist
DX: J44.1 Chronic obstructive pulmonary disease with (acute) exacerbation (principal); J96.11 Chronic respiratory failure with hypoxia; I48.2 Chronic atrial fibrillation; E11.65 Type 2 diabetes mellitus with hyperglycemia; I42.9 Cardiomyopathy, unspecified; I35.0 Nonrheumatic aortic (valve) stenosis; F17.210 Nicotine dependence, cigarettes, uncomplicated; I10 Essential (primary) hypertension; E78.5 Hyperlipidemia, unspecified; K21.9 Gastro-esophageal reflux disease without esophagitis; F41.9 Anxiety disorder, unspecified; E66.01 Morbid (severe) obesity due to excess calories; Z68.39 Body mass index [BMI] 39.0-39.9, adult; M81.0 Age-related osteoporosis without current pathological fracture; G89.4 Chronic pain syndrome; D50.9 Iron deficiency anemia, unspecified; E83.42 Hypomagnesemia; G47.33 Obstructive sleep apnea (adult) (pediatric); G47.10 Hypersomnia, unspecified; Z91.19 Patient's noncompliance with other medical treatment and regimen; Z99.81 Dependence on supplemental oxygen; Z79.4 Long term (current) use of insulin; Z79.01 Long term (current) use of anticoagulants; Z79.899 Other long term (current) drug therapy
CPT/HCPCS: 36415; 71045; 71046; 80048; 80053; 82962; 83880; 84484; 85025; 85027; 85379; 93005; 94640; 94667; 94668; 96361; 96365; 96375; 96376; 97802; 99218; 99285; 99406; J7030; A4216; G0378

== ENCOUNTER → 2017-09-22 19:59 | Outpatient (CLI) | payer MEDICAID, SELFPAY | PROVIDERS: Family Provider Family Medicine; PCP Family Medicine; Visit Provider Nurse Practitioner Acute Care | DX: G47.33 Obstructive sleep apnea (adult) (pediatric) (principal) | CPT/HCPCS: 95811 ==

== ENCOUNTER 2017-11-01 20:18 | Observation (INO) | payer MEDICAID, SELFPAY ==
[2017-11-01 20:19] VITALS: BP 105/78; PULSE 69; RESP 16; TEMP 36.8; O2SAT 92; BMI 41.6
--- NOTE | 2017-11-01 21:24 | CT_ITS ---
STUDY: CT ABDOMEN AND PELVIS WITHOUT CONTRAST REASON FOR EXAM: Female, 62 years old. Abdominal pain. RADIATION DOSAGE (If Supplied By Facility): CTDIvol = ( 19.58 ) mGy, DLP = ( 914.89 ) mGycm TECHNIQUE: Transaxial images were obtained from the dome of the diaphragm to the symphysis pubis without oral contrast, and without intravenous contrast. Sagittal and coronal images were reconstructed. Individualized dose optimization techniques were used for this CT. COMPARISON: 09/02/2016. FINDINGS: The visualized lung bases are unremarkable. The visualized portions of the heart are within normal limits. Normal liver. Normal gallbladder and extrahepatic biliary system. Normal spleen. Normal pancreas. Normal bilateral adrenal glands. Normal right kidney. Normal left kidney. The abdominal aorta is normal in caliber, with moderate atherosclerotic calcification. There is no free fluid, free air, or organized collection. There is no bowel obstruction or inflammatory change. Normal urinary bladder. Normal abdominal wall. Mild degenerative changes of the lumbar spine are noted. CT/Abdomen/Pelvis without Cont IMPRESSION: No acute process. Mild degenerative spine changes. Electronically Signed: Eliana Small MD at 22:41 EDT Tel , Service support ,
[2017-11-01] MEDS: Ondansetron 4 MG/2 ML Vial IV (21:52)
[2017-11-01] MEDS: 0.9% Normal Saline 1,000 ML 125 ML IV (21:52)
[2017-11-01 21:55] LABS: ALB/GLOB Ratio 0.8 RATIO (0.9-2.4); AST(SGOT) 20 U/L (15-37); Absolute Lymphocyte Count 2.96 X10^3/ul (0.83-4.51); Absolute Neutrophil Count 8.4 X10^3/uL (2.0-7.7); Alanine Aminotransfer ALT/SGPT 24 U/L (13-56); Alkaline Phosphatase 141 U/L (45-117); Anion Gap 9 (5-15); BUN 21 mg/dL (7-18); BUN/Creat Ratio 23.1 RATIO (10-20); Basophil# 0.07 X10^3/uL; Basophil% 0.5 % (0-1); Chloride 97 mmol/L (98-107); Creatinine, Serum 0.91 mg/dL (0.55-1.02); EST Glomerular Filtration Rate 66 mL/min (>60); Eosinophil# 0.44 X10^3/uL; Eosinophils% 3.4 % (0-5); Est Glom Filt Rate - Afr Amer 80 mL/min (>60); Estimated Creatinine Clearance 48.37 ml/min; Globulin 3.8 g/dL (2.2-4.2); Glucose 242 mg/dL (74-106); Hematocrit 35.7 % (37-47); Hemoglobin 11.3 g/dl (12.0-15.0); Lipase 87 U/L (73-393); Lymphocyte # 2.96 X10^3/ul (4.0); Lymphocyte % 22.6 % (19-41); Mean Corp Hgb Conc 31.7 g/gl (32-36); Mean Corpuscular Hgb 26.3 pg (27.0-32.0); Mean Corpuscular Volume 83.2 fL (81-99); Mean Platelet Vol. 11.1 fl (6.2-12.0); Monocyte# 1.23 X10^3/uL; Monocyte% 9.4 % (0-10); Neutrophil # 8.37 X10^3/uL (2.7-7.7); Neutrophil % 63.9 % (47-70); Platelet Count 373 K/mm3 (150-450); Potassium 5.6 mmol/L (3.5-5.1); Protein, Total 6.8 g/dL (6.4-8.2); RBC Distribution Width CV 17.7 % (11.6-14.6); RBC Distribution Width SD 53.9 fl (35.1-43.9); Red Blood Count 4.29 M/mm3 (4.2-5.4); Sodium Level 131 mmol/L (136-145); White Blood Count 13.1 K/mm3 (4.4-11.0)
[2017-11-01] MEDS: Morphine 4 MG/ML Syringe IV (21:55)
[2017-11-01 22:00] LABS: POSITIVE COUNT NO; POSITIVE DIFFERENTIAL NO; POSITIVE MORPHOLOGY NO
[2017-11-01 22:49] VITALS: BP 115/69; PULSE 64; RESP 15; O2SAT 95
--- NOTE | 2017-11-01 23:02 | RAD_ITS ---
STUDY: X-RAY CHEST REASON FOR EXAM: Female, 62 years old. Dyspnea SOB abdominal pain. TECHNIQUE: Portable chest. COMPARISON: 09/07/2017. FINDINGS: The lungs are clear and expanded. There is no demonstrated pleural abnormality. Normal size heart. Normal mediastinum and sangeeta. Normal visualized pulmonary arteries. Normal visualized aortic arch and descending thoracic aorta. Normal visualized thoracic spine. Normal visualized ribs, clavicles, and shoulders. There is no demonstrated abnormality of the visualized soft tissue structures of the upper abdomen. RAD/Chest 1 View (Portable) IMPRESSION: Normal x-ray examination of the chest. Electronically Signed: Eliana Small MD at 23:29 EDT Tel , Service support ,
[2017-11-01 23:16] LABS: Mucous, Urine 0 SEEN /hpf (<or=2+); Red Blood Cells-Urine 0 SEEN /hpf (0-5); White Blood Cells 0 SEEN /hpf (0-5)
[2017-11-01 23:22] LABS: Color, Urine Yellow (Yellow); Glucose, Dipstick Normal (Normal); Ketone-Dipstick Negative (Negative); Leukocyte Esterase-Dipstick Negative /ul (Negative); Nitrite-Dipstick Negative (Negative); Occult Blood-Urine Negative /ul (Negative); Protein-Dipstick Negative (Negative); Urine Bilirubin Dipstick Negative (Negative); Urine Clarity Clear (Clear); Urine Urobilinogen Normal (Normal)
[2017-11-01 23:30] LABS: Bacteria RARE /hpf (None Seen); Squamous Epithelial Cells - UA 0-5 SEEN /hpf (5-10)
[2017-11-01 23:40] VITALS: BP 109/56; PULSE 69; RESP 16; O2SAT 95
--- NOTE | 2017-11-01 23:54 | ED.VISSUMM ---
- ER Visit Summary Date of Service: 11/01/17 Chief Complaint: [Abdominal pain] History of Present Illness: The patient is a 62 F [presents the emergency department complaint of abdominal pain started about 3 hours ago. Patient states the pain came on suddenly initially and then she later stated that she thinks it actually came on gradually. Patient describes the pain is right-sided and rates it a 9 out of 10. Patient describes it as sharp. Patient's last bowel movement was this morning. She denies urinary symptoms. Patient states the pain is worse with deep breathing. Patient was at rest when she first noticed the pain. She denies any trauma. Patient has had a slight cough which is somewhat chronic for her and she does have a history of COPD. Patient also with history of A. fib and is on Xarelto. Patient is a diabetic and has a history of hypertension and high cholesterol. Patient has had prior appendectomy and hysterectomy.] Physical Examination: [HEENT-PERRLA, EOMI. Cranial nerves II through XII grossly intact. TMs clear. Mucous membranes moist. No adenopathy. Cardiovascular-regular rate and rhythm without murmur or ectopy Lungs-good aeration bilaterally. Patient has expiratory wheezes noted bilaterally. No accessory muscle use or retractions. Abdomen-normoactive bowel sounds, soft. Patient has tenderness to palpation over the right lower quadrant. There is some mild guarding. There is no rebound, rigidity, or perineal signs. Extremities-intact ?4, normal range of motion, normal pulses, atraumatic] Test Results: [CBC with differential obtained showed a white count 13.1, hemoglobin 11.3, hematocrit 36, platelets 373. Chemistry showed a sodium 131 potassium 5.6 however this specimen of blood was slightly hemolyzed. Chloride was 97, CO2 25, glucose 242, BUN 21, creatinine 0.91. LFTs were unremarkable. Lipase was normal at 87. Urinalysis was normal. CT flank showed nothing acute. Chest x-ray showed nothing acute.] Emergency Department Course and Treatment: [She was medicated with morphine and Zofran and she had pain control with that. On repeat evaluation she continues to complain of significant discomfort of the right lower quadrant.] Treatment Plan: [Patient will be admitted for pain control.] Disposition: [Admit] Impression: [Abdominal pain-etiology uncertain] This note was generated with [employer] dictation software. It may contain incorrect words, spelling, and punctuation that were not noted in review of the chart prior to signing ED Disposition - Plan for ED Patient: Chief Complaint: Abd Pain Referrals: Camden Burger [Primary Care Provider] -
--- NOTE | 2017-11-01 23:57 | ED.DCSUM_ITS ---
- ER Visit Summary Date of Service: 11/01/17 Chief Complaint: [Abdominal pain] History of Present Illness: The patient is a 62 F [presents the emergency department complaint of abdominal pain started about 3 hours ago. Patient states the pain came on suddenly initially and then she later stated that she thinks it actually came on gradually. Patient describes the pain is right- sided and rates it a 9 out of 10. Patient describes it as sharp. Patient's last bowel movement was this morning. She denies urinary symptoms. Patient states the pain is worse with deep breathing. Patient was at rest when she first noticed the pain. She denies any trauma. Patient has had a slight cough which is somewhat chronic for her and she does have a history of COPD. Patient also with history of A. fib and is on Xarelto. Patient is a diabetic and has a history of hypertension and high cholesterol. Patient has had prior appendectomy and hysterectomy.] Physical Examination: [HEENT-PERRLA, EOMI. Cranial nerves II through XII grossly intact. TMs clear. Mucous membranes moist. No adenopathy. Cardiovascular-regular rate and rhythm without murmur or ectopy Lungs-good aeration bilaterally. Patient has expiratory wheezes noted bilaterally. No accessory muscle use or retractions. Abdomen-normoactive bowel sounds, soft. Patient has tenderness to palpation over the right lower quadrant. There is some mild guarding. There is no rebound, rigidity, or perineal signs. Extremities-intact ?4, normal range of motion, normal pulses, atraumatic] Test Results: [CBC with differential obtained showed a white count 13.1, hemoglobin 11.3, hematocrit 36, platelets 373. Chemistry showed a sodium 131 potassium 5.6 however this specimen of blood was slightly hemolyzed. Chloride was 97, CO2 25, glucose 242, BUN 21, creatinine 0.91. LFTs were unremarkable. Lipase was normal at 87. Urinalysis was normal. CT flank showed nothing acute. Chest x-ray showed nothing acute.] Emergency Department Course and Treatment: [She was medicated with morphine and Zofran and she had pain control with that. On repeat evaluation she continues to complain of significant discomfort of the right lower quadrant.] Treatment Plan: [Patient will be admitted for pain control.] Disposition: [Admit] Impression: [Abdominal pain-etiology uncertain] This note was generated with [employer] dictation software. It may contain incorrect words, spelling, and punctuation that were not noted in review of the chart prior to signing ED Disposition - Plan for ED Patient: Chief Complaint: Abd Pain Referrals: Camden Burger [Primary Care Provider] -
[2017-11-02] VITALS (13 sets, daily range): BP systolic 96–132; BP diastolic 50–72; PULSE 60–90; RESP 16–24; TEMP 36.4–37.2; O2SAT 93–96; BMI 39.8; BMI 95.6
--- NOTE | 2017-11-02 00:06 | HP.PCM_ITS ---
Problem List (1) Abdominal pain Status: Acute (2) Acute exacerbation of chronic obstructive pulmonary disease (COPD) Status: Acute History of Present Illness Date of Admission: 11/02/17 Chief Complaint: Right lower quadrant abdominal pain ?1 day. The patient is a 62 year old F with a significant history of COPD, diabetes mellitus, hypertension, hyperlipidemia; A. fib; appendectomy [facility] detention presenting with a 1 day history of excruciating pain at her right lower quadrants of her abdomen. At emergency department her potassium level was 5.6 but lab reported that her blood was slightly hemolyzed. CT scan of head abdomen and pelvis was unremarkable for any acute disease. Also, patient complained of increased shortness of breath. She has a chronic cough that has not changed from her baseline. Past Medical History Past Medical History (Chronic Problems): Chronic Problems (Last Reviewed 10/08/17 @ 11:09 by Marylu Howell NP-C) Tobacco dependence due to cigarettes (Chronic) Non-compliance (Chronic) Microcytic anemia (Chronic) Hypersomnia (Chronic) Anemia (Chronic) Hypomagnesemia (Chronic) HTN (hypertension) (Chronic) Morbid obesity with BMI of 40.0-44.9, adult (Chronic) Chronic pain (Chronic) Chronic atrial fibrillation (Chronic) Chronic hypoxemic respiratory failure (Chronic) non-compliant with oxygen Hyperlipemia (Chronic) ECHO in June of 2017 showed a 75% EF Type 2 diabetes mellitus (Chronic) uncontrolled GERD (gastroesophageal reflux disease) (Chronic) Anxiety (Chronic) Insomnia (Chronic) Medical History: Medical History (Last Reviewed 11/02/17 @ 04:31 by Zacarias Carias MD) Hypersomnia (Chronic) G47.10 Chest pain (Acute) R07.9 Anemia (Chronic) D64.9 Hypomagnesemia (Chronic) E83.42 HTN (hypertension) (Chronic) I10 Morbid obesity with BMI of 40.0-44.9, adult (Chronic) E66.01, Z68.41 COPD (chronic obstructive pulmonary disease) (Acute) J44.9 Chronic pain (Chronic) G89.29 Chronic atrial fibrillation (Chronic) I48.2 Chronic hypoxemic respiratory failure (Chronic) J96.11 non-compliant with oxygen Hyperlipemia (Chronic) E78.5 ECHO in June of 2017 showed a 75% EF Type 2 diabetes mellitus (Chronic) E11.9 uncontrolled GERD (gastroesophageal reflux disease) (Chronic) K21.9 Anxiety (Chronic) F41.9 Insomnia (Chronic) G47.00 Osteoporosis M81.0 Cardiomyopathy (Ruled-out) I42.9 EF in Oct 2015 45-50 Left ankle pain (Inactive) M25.572 Non-compliance (Inactive) Z91.19 withn follow up with pulmonary Allergies venom-honey bee [bee venom (honey bee)] Allergy (Verified 11/01/17 20:33) Swelling levofloxacin [From Levaquin] Adverse Reaction (Verified 11/01/17 20:33) Nausea oxycodone HCl [From Percocet] Adverse Reaction (Verified 11/01/17 20:33) Nausea Penicillins Adverse Reaction (Verified 11/01/17 20:33) Nausea/Vom/Diarrhea Home Medications: Ambulatory Orders Medication Instructions Recorded Albuterol Aerosols [Ventolin 2.5 mg INHALATION Q2H PRN PRN 05/12/17 Aerosols] Atorvastatin Calcium [Lipitor] 40 mg PO QHS 05/12/17 Budesonide/Formoterol 160/4.5 2 puff INHALATION BID 05/12/17 [Symbicort 160/4.5 Mcg Inhaler (SP)] Bupropion HCl [Bupropion HCl Sr] 150 mg PO BID 05/12/17 Buspirone HCl 10 mg PO TID 05/12/17 Digoxin 250 mcg PO DAILY 05/12/17 Diltiazem [Cardizem] 120 mg PO BID 05/12/17 Famotidine [Pepcid] 20 mg PO BID 05/12/17 Furosemide [Lasix] 40 mg PO BID 05/12/17 Glucagon,Human Recombinant 1 mg IM PRN PRN 05/12/17 [Glucagon Emergency Kit] Guaifenesin [Mucinex] 1,200 mg PO BID 05/12/17 Insulin Lispro [Humalog] 12 unit SQ TIDCM 05/12/17 Ipratropium/Albuterol Sulfate 3 ml INHALATION Q4H.RT 05/12/17 [Duoneb] Lisinopril [Prinivil] 5 mg PO DAILY 05/12/17 Propranolol HCl [Inderal (Beta 10 mg PO BID 05/12/17 Rubén)] Rivaroxaban [Xarelto] 20 mg PO DAILY 05/12/17 Sennosides/Docusate Sodium 2 tab PO DAILY PRN PRN 05/12/17 [Senna-Docusate Sodium Tablet] Hydrocodone Bitart/Apap 5-325 1 tab PO Q6H PRN PRN 08/11/17 [[place] 5/325] Mag Hydrox/Al Hydrox/Simeth 30 ml PO Q6H PRN PRN 08/11/17 [Mylanta II] Polyethylene Glycol 3350 [Miralax] 17 gm PO DAILY 08/11/17 docusate sodium 100 mg capsule 100 mg PO QDAY 09/01/17 gabapentin 100 mg capsule 100 mg PO TID cap 09/01/17 Insulin Glargine,Hum.rec.anlog 55 unit SQ QHS 09/06/17 [Lantus Solostar] Spironolactone [Aldactone] 25 mg PO BID 11/01/17 Benzonatate [Tessalon Perle] 100 mg PO TID PRN PRN 11/02/17 Insulin Lispro [Humalog] See Protocol 11/02/17 Nitroglycerin 0.4 mg SL X1 11/02/17 Surgical History: Surgical History (Last Reviewed 11/02/17 @ 04:33 by Zacarias Carias MD) Cataract extraction status Z98.49 History of lumbar surgery Z98.890 History of tonsillectomy and adenoidectomy Z98.890 History of total hysterectomy Z90.710 Surgical History: hysterectomy, tonsillectomy, - - Lumbar surgery. 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 Sibling Family History: Family History (Last Reviewed 10/08/17 @ 11:09 by FRANKLIN Philippe) Sister Arthritis Diabetes Father Cancer Aunt Diabetes History Items: Asthma, COPD, Hypertension Review of Systems Constitutional: Denies: Chills, Fever, Weight Change HEENT: Denies: Head Aches, Sinus Congestion, Sinus Drainage Cardiovascular: Denies: Chest Pain, Palpitations Respiratory: Reports: Cough - Chronic, Shortness of Breath Gastrointestinal: Reports: Abdominal Pain Genitourinary: Denies: Dysuria Musculoskeletal: Denies: Joint Pain, Joint Tenderness Skin: Denies: Rash, Wounds Neurological: Denies: Numbness, Tingling, Focal weakness Psychiatric: Denies: Anxiety, Depression, Homicidal Ideations, Suicidal Ideations Hematologic/ Lymphatic: Denies: Easy Bruising, Easy Bleeding VTE Information - Inpt Only VTE Present on Admission: No VTE Mechan Device Prophylaxis: None VTE Pharm Prophylaxis ordered?: No Reason prophylaxis not ordered:: Treatment Not Indicated - On home Xarelto; continued Patient Problems: Active and Suspected Problems (Last Reviewed 10/08/17 @ 11:09 by Marylu Howell NP-C) Abdominal pain (Acute) - Physical Exam General: Alert, Oriented x3, Cooperative, - HEENT: Atraumatic, PERRLA, EOMI, Normocephalic Neck: Supple, No JVD, Negative Carotid Bruits Lungs: Wheezes - 3. Cardiovascular: No murmurs, Irregular Rate Abdomen: Bowel Sounds Present, Soft, Tender - Right lower quadrant Extremities: No edema, Capillary Refill Less than 3 Seconds Skin: No rashes, No breakdown Musculoskeletal: No Tenderness to Palpation of Joints or Extremities Neurological: Cranial nerves II-XII grossly intact Psych/Mental Status: Normal Affect, Appropriate Vital Signs Temp Pulse Resp BP Pulse Ox 98.2 F 64 15 115/69 95 11/01/17 20:19 11/01/17 22:49 11/01/17 22:49 11/01/17 22:49 11/01/17 22:49 Oxygen Flow Rate (L/min) 2 Oxygen Delivery Method Nasal Cannula Weight: 100 kg Body Mass Index (BMI) 41.6 Finger Stick Blood Glucose 364 Laboratory Tests Past 24 Hrs 11/01/17 11/01/17 11/01/17 21:00 21:00 23:00 WBC 13.1 H RBC 4.29 Hgb 11.3 L Hct 35.7 L MCV 83.2 MCH 26.3 L MCHC 31.7 L RDW 17.7 H RDW Differential 53.9 H Plt Count 373 MPV 11.1 Immature Gran % (Auto) 0.200 Neut % (Auto) 63.9 Lymph % (Auto) 22.6 [place] % (Auto) 9.4 Eos % (Auto) 3.4 Baso % (Auto) 0.5 Absolute Neuts (auto) 8.4 H Absolute Lymphs (auto) 2.96 Total Counted Not Reportable Sodium 131 L Potassium 5.6 H Chloride 97 L Carbon Dioxide 25.0 Anion Gap 9 BUN 21 H Creatinine 0.91 Estim Creat Clear Calc 48.37 Est GFR (MDRD) Af Amer 80 Est GFR (MDRD) Non-Af 66 BUN/Creatinine Ratio 23.1 H Glucose 242 H Calcium 9.0 Total Bilirubin 0.30 AST 20 ALT 24 Alkaline Phosphatase 141 H Total Protein 6.8 Albumin 3.0 L Globulin 3.8 Albumin/Globulin Ratio 0.8 L Lipase 87 Urine Color Yellow Urine Clarity Clear Urine pH 6.0 Ur Specific [place] 1.010 Urine Protein Negative Urine Glucose (UA) Normal Urine Ketones Negative Urine Occult Blood Negative Urine Nitrite Negative Urine Bilirubin Negative Urine Urobilinogen Normal Ur Leukocyte Esterase Negative Urine RBC 0 SEEN Urine WBC 0 SEEN Ur Squamous Epith Cells 0-5 SEEN Urine Bacteria RARE Urine Mucus 0 SEEN Assessment/Plan All Active Problems (Last Reviewed 10/08/17 @ 11:09 by Marylu Howell, THANG-C) Abdominal pain (Acute) ABDULLAHI (obstructive sleep apnea) (Acute) Acute exacerbation of chronic obstructive pulmonary disease (COPD) (Acute) Syncope (Acute) Chest pain (Acute) Chest pain (Acute) COPD (chronic obstructive pulmonary disease) (Acute) Acute and chronic respiratory failure with hypoxia (Resolved) Acute bronchitis due to human metapneumovirus (Resolved) Atrial fibrillation with RVR (Resolved) COPD with acute exacerbation (Resolved) Gram-negative pneumonia (Resolved) Cardiomyopathy (Ruled-out) The patient is a 62 year old F with a significant history of COPD, diabetes mellitus, hypertension, hyperlipidemia; A. fib; appendectomy who lives at a detention presenting with a 1 day history of excruciating pain at her right lower quadrants of her abdomen; also with increased shortness of breath; and severe wheezing on examination and is a found to have a severe wheezing on examination. Right lower abdominal pain CT scan of the abdomen is unremarkable White count is unremarkable. However she had elevated lactic acid. Her lactic acid was 2.3. Etiology unclear Supportive treatment with pain management; IV morphine; and hydration. Home Lasix discontinued. Repeat lactic acid. If her abdominal symptoms persist consider ischemic colitis Trend CBC Probable acute COPD exacerbation Patient with severe wheezing on examination Increased shortness of breath recently COPD pathway with IV prednisone; scheduled DuoNeb and as needed albuterol. Chest physiotherapy. Hyperkalemia Patient was found to have a potassium of 5.6 on admission. But lab reported that her blood was slightly hemolyzed. We will repeat a BMP Hold home aldactone Trend BMP Tobacco abuse Smoke cigarettes Counseled Erik ordered. Inpatient consult to smoking cessation. Diabetes mellitus Blood glucose was above goal at the time of admission Prandial, basal and correction scale ordered. HTN Blood pressure controlled on admission Cardizem continued Aldactone held for possible hyperkalemia Catapres as needed A. fib Controlled A. fib on admission Xarelto, Cardizem, and digoxin continued. Depression Wellbutrin continued Anxiety Buspirone continued Chronic pain Home [place] continued. Also patient is getting as needed morphine for her abdominal pain. DVT prophylaxis Not indicated. Patient on Xarelto. Code Visit OBSV E&M: 87114 Initial observation care L3
[2017-11-02] MEDS: Ipratropium/Albuterol Sulfate 3 ML AMPUL.NEB INHALATION ×6 (00:50→23:40)
[2017-11-02 01:42] LABS: Lactic Acid 2.3 mmol/L (0.4-2.0)
--- NOTE | 2017-11-02 01:53 | NURSING ---
dr hobson notified of lactic acid of 2.3 Orders received.
--- NOTE | 2017-11-02 03:39 | NURSING ---
Dr. Adames asked that am labs be drawn now, called Herbert in lab and informed of same.
[2017-11-02 04:39] LABS: Anion Gap 9 (5-15); BUN 19 mg/dL (7-18); Calcium,Total 8.6 mg/dL (8.5-10.1); Chloride 99 mmol/L (98-107); EST Glomerular Filtration Rate 90 mL/min (>60); Est Glom Filt Rate - Afr Amer 108 mL/min (>60); Estimated Creatinine Clearance 62.88 ml/min; Glucose 216 mg/dL (74-106); Potassium 5.3 mmol/L (3.5-5.1); Sodium Level 133 mmol/L (136-145)
[2017-11-02 04:44] LABS: Absolute Lymphocyte Count 3.13 X10^3/ul (0.83-4.51); Absolute Neutrophil Count 6.6 X10^3/uL (2.0-7.7); Basophil# 0.04 X10^3/uL; Basophil% 0.4 % (0-1); Eosinophil# 0.31 X10^3/uL; Eosinophils% 2.8 % (0-5); Hematocrit 32.9 % (37-47); Hemoglobin 10.4 g/dl (12.0-15.0); Lymphocyte # 3.13 X10^3/ul (4.0); Lymphocyte % 28.6 % (19-41); Mean Corp Hgb Conc 31.6 g/gl (32-36); Mean Corpuscular Hgb 26.5 pg (27.0-32.0); Mean Corpuscular Volume 83.7 fL (81-99); Mean Platelet Vol. 11.1 fl (6.2-12.0); Monocyte# 0.87 X10^3/uL; Monocyte% 7.9 % (0-10); Neutrophil # 6.57 X10^3/uL (2.7-7.7); Platelet Count 296 K/mm3 (150-450); RBC Distribution Width CV 17.6 % (11.6-14.6); RBC Distribution Width SD 54.5 fl (35.1-43.9); Red Blood Count 3.93 M/mm3 (4.2-5.4)
[2017-11-02 04:45] LABS: Differential Indicated SCAN CRITERIA MET; POSITIVE COUNT NO; POSITIVE DIFFERENTIAL NO; POSITIVE MORPHOLOGY YES
[2017-11-02 04:50] LABS: Reflex Lactate? Y
[2017-11-02 05:53] LABS: Lactic Acid 1.8 mmol/L (0.4-2.0)
[2017-11-02] MEDS: busPIRone 5 MG Tablet 10 MG PO (06:50)
[2017-11-02] MEDS: Gabapentin 100 MG Capsule PO ×3 (06:50→21:39)
[2017-11-02 07:10] LABS: Bedside Glucose 249 mg/dL (70-110)
[2017-11-02 07:40] LABS: Bedside Glucose 260 mg/dL (70-110)
[2017-11-02] MEDS: HYDROcodone Bitartrate/Apap 5/325 Tablet PO ×3 (07:57→20:33)
[2017-11-02] MEDS: Lisinopril 5 MG Tablet PO (07:59)
[2017-11-02] MEDS: Digoxin 250 MCG Tablet PO (08:00)
[2017-11-02] MEDS: dilTIAZem 60 MG CAP.SR.12H 120 MG PO ×2 (08:00→21:38)
[2017-11-02] MEDS: buPROPion (SR) 150 MG Tablet.SA PO ×2 (08:00→21:40)
[2017-11-02] MEDS: Polyethylene Glycol 3350 17 GM PACKET PO (08:00)
[2017-11-02] MEDS: guaiFENesin 1,200 MG Tablet 1200 MG PO ×2 (08:01→21:40)
[2017-11-02] MEDS: Docusate Sodium 100 MG Capsule PO (08:02)
[2017-11-02] MEDS: Famotidine 20 MG Tablet PO ×2 (08:02→21:38)
[2017-11-02] MEDS: Propranolol 10 MG Tablet PO ×2 (08:02→21:41)
[2017-11-02] MEDS: Insulin Lispro 100 UNIT/ML INSULN.PEN 12 UNIT SQ ×3 (08:07→16:42)
[2017-11-02] MEDS: Insulin Lispro 100 UNIT/ML INSULN.PEN SQ ×4 (08:07→21:45)
[2017-11-02] MEDS: Budesonide Respules 0.5 MG/2 ML AMPUL.NEB. INHALATION ×2 (08:13→19:26)
[2017-11-02] MEDS: 0.9% Normal Saline 1,000 ML 75 ML IV (09:40)
[2017-11-02] MEDS: 0.9% NaCl Peripheral Flush Adult/Peds IV (10:43)
[2017-11-02] MEDS: Spironolactone 25 MG Tablet PO ×2 (10:43→21:39)
[2017-11-02] MEDS: Rivaroxaban 20 MG Tablet PO (10:52)
[2017-11-02] MEDS: Morphine 2 MG/ML Syringe IV (10:56)
[2017-11-02 11:16] LABS: Bedside Glucose 461 mg/dL (70-110)
[2017-11-02 11:48] LABS: Glucose 433 mg/dL (74-106)
--- NOTE | 2017-11-02 12:10 | CASEMGMT ---
Social Work Note Charge Nurse Cassandra updated this worker that pt is from [facility]. SW in to meet with pt. SW introduced self and role at [facility]. Pt is alert and orientated x3. Pt confirms that she is from [facility] and the plan is for her to return there at discharge. Plan: Return to [facility] when medically cleared Madeline Dominguez SET STAFF FITTER, DATA CENTER ENGINEER
--- NOTE | 2017-11-02 13:28 | PCM.PN.HOSP ---
Patient Problems: Active and Suspected Problems (Last Reviewed 11/02/17 @ 04:31 by Zacarias Carias MD) Abdominal pain (Acute) Subjective: still with RLQ abdominal pain. Vitals/I&O's: Vital Signs Temp Pulse Resp BP Pulse Ox 36.6 C 90 18 132/72 H 96 11/02/17 07:55 11/02/17 08:13 11/02/17 08:13 11/02/17 07:55 11/02/17 08:13 Oxygen Flow Rate (L/min) 2 Oxygen Delivery Method Nasal Cannula Weight: 95.6 kg Body Mass Index (BMI) 39.8 Intake and Output for Last 24 Hours 10/31/17 11/01/17 11/02/17 23:59 23:59 23:59 Intake Total 1239 / 1239 Output Total 1000 / 1000 Balance 239 / 239 General: Alert, No apparent distress, - - appears much older than stated age. flat affect. speech is difficult to understang. minimal eye contract. HEENT: Atraumatic, Normocephalic Oral: Moist Mucosa, No Gingival or Mucosal Lesions/ Ulcerations Neck: No Nodes, Thyroid Normal Size and Texture Lungs: Normal air movement, - - upper respiratory wheeze Cardiovascular: Regular rate, Regular Rhythm, Normal S1, Normal S2, No murmurs Abdomen: Bowel Sounds Present, Soft, Non-Distended, - - RLQ abdominal tenderness. Extremities: No edema, No Calf Tenderness Psych/Mental Status: Appropriate, Flat Affect Laboratory Results 11/02/17 03:56: WBC 11.0, RBC 3.93 L, Hgb 10.4 L, Hct 32.9 L, MCV 83.7, MCH 26.5 L, MCHC 31.6 L, RDW 17.6 H, RDW Differential 54.5 H, Plt Count 296, MPV 11.1, Immature Gran % (Auto) 0.300, Neut % (Auto) 60.0, Lymph % (Auto) 28.6, [place] % (Auto) 7.9, Eos % (Auto) 2.8, Baso % (Auto) 0.4, Absolute Neuts (auto) 6.6, Absolute Lymphs (auto) 3.13, Total Counted Not Reportable 11/02/17 03:56: Sodium 133 L, Potassium 5.3 H, Chloride 99, Carbon Dioxide 25.0, Anion Gap 9, BUN 19 H, Creatinine 0.70, Estim Creat Clear Calc 62.88, Est GFR (MDRD) Af Amer 108, Est GFR (MDRD) Non-Af 90, BUN/Creatinine Ratio 27.0 H, Glucose 216 H, Calcium 8.6 11/02/17 03:58: POC Glucose 249 H 11/02/17 05:18: Lactic Acid 1.8 11/02/17 07:35: POC Glucose 260 H 11/02/17 11:12: POC Glucose 461 H* 11/02/17 11:28: Glucose 433 H Current Medications Hydrocodone Bitart/Acetaminophen ([place] 5mg-325mg) 1 tablet PO Q6H PRN PRN PRN Reason: PAIN Last Admin: 11/02/17 07:57 Dose: 1 tablet Al Hydroxide/Mg Hydroxide (Mylanta Ii) 30 ml PO Q6H PRN PRN PRN Reason: DYSPEPSIA/INDIGESTION Albuterol Sulfate (Ventolin Aerosols) 2.5 mg INHALATION Q2H PRN PRN PRN Reason: SHORTNESS OF BREATH Albuterol/Ipratropium (Duoneb) 3 ml INHALATION Q4H.RT [facility] Last Admin: 11/02/17 11:41 Dose: 3 ml Atorvastatin Calcium (Lipitor) 40 mg PO QHS [facility] Benzonatate (Tessalon Perle) 100 mg PO TID PRN PRN PRN Reason: COUGH Budesonide (Pulmicort Aerosol) 0.5 mg INHALATION Q12H.RT [facility] Last Admin: 11/02/17 08:13 Dose: 0.5 mg Bupropion HCl (Wellbutrin Sr (150mg Tablets)) 150 mg PO BID [facility] Last Admin: 11/02/17 08:00 Dose: 150 mg Buspirone HCl (Buspar) 10 mg PO TID [facility] Last Admin: 11/02/17 06:50 Dose: 10 mg Clonidine (Catapres) 0.1 mg PO Q6H PRN PRN PRN Reason: sbp>160 Dextrose (D50w Syringe) 0 gm IV X1 PRN; Protocol PRN Reason: Hypoglycemia Digoxin (Lanoxin) 250 mcg PO DAILY [facility] Last Admin: 11/02/17 08:00 Dose: 250 mcg Diltiazem HCl (Cardizem Sr) 120 mg PO BID [facility] Last Admin: 11/02/17 08:00 Dose: 120 mg Docusate Sodium (Colace) 100 mg PO DAILY [facility] Last Admin: 11/02/17 08:02 Dose: 100 mg Famotidine (Pepcid) 20 mg PO BID [facility] Last Admin: 11/02/17 08:02 Dose: 20 mg Gabapentin (Neurontin) 100 mg PO TID [facility] Last Admin: 11/02/17 06:50 Dose: 100 mg Glucagon () 1 mg IM .X1 PRN PRN Reason: Hypoglycemia Guaifenesin (Mucinex) 1,200 mg PO BID [facility] Last Admin: 11/02/17 08:01 Dose: 1,200 mg Sodium Chloride () 1,000 mls @ 75 mls/hr IV .[id number] [facility] Stop: 11/02/17 15:14 Last Admin: 11/02/17 09:40 Dose: 75 mls/hr Insulin Glargine (Lantus (Bkc)) 55 units SC QHS [facility] Last Admin: 11/02/17 04:00 Dose: 55 units Insulin Human Lispro (Humalog Kwikpen (Bkc)) 12 unit SQ BREAKFAST [facility] Last Admin: 11/02/17 08:07 Dose: 12 units Insulin Human Lispro (Humalog Kwikpen (Bkc)) 12 unit SQ DINNER [facility] Insulin Human Lispro (Humalog Kwikpen (Bkc)) 12 unit SQ LUNCH [facility] Last Admin: 11/02/17 11:54 Dose: 12 units Insulin Human Lispro (Humalog Kwikpen (Bkc)) 0 unit SQ ACHS [facility] PRN Reason: Protocol Last Admin: 11/02/17 11:55 Dose: 11 units Lisinopril (Zestril) 5 mg PO DAILY [facility] Last Admin: 11/02/17 07:59 Dose: 5 mg Magnesium Hydroxide (Milk Of Magnesia) 30 ml PO DAILY PRN PRN PRN Reason: Constipation Methylprednisolone (Solu-Medrol) 40 mg IV DAILY [facility] Last Admin: 11/02/17 10:43 Dose: 40 mg Morphine Sulfate () 1 - 2 mg IV Q4H PRN PRN PRN Reason: PAIN Last Admin: 11/02/17 10:56 Dose: 2 mg Nicotine (Nicoderm Cq (Pbkc)) 21 mg TRANSDERM. DAILY [facility] Last Admin: 11/02/17 08:06 Dose: 21 mg Ondansetron HCl (Zofran) 4 mg IV Q8H PRN PRN PRN Reason: Nausea Polyethylene Glycol (Miralax) 17 gm PO DAILY [facility] Last Admin: 11/02/17 08:00 Dose: 17 gm Propranolol HCl (Inderal) 10 mg PO BID [facility] Last Admin: 11/02/17 08:02 Dose: 10 mg Rivaroxaban (Xarelto) 20 mg PO DAILY [facility] Last Admin: 11/02/17 10:52 Dose: 20 mg Senna/Docusate Sodium (Senokot-S, Estefania-Colace) 1 tablet PO DAILY PRN PRN PRN Reason: Constipation Sodium Chloride () 5 - 30 ml IV UD PRN PRN Reason: SALINE FLUSH Last Admin: 11/02/17 10:43 Dose: 10 ml Spironolactone (Aldactone) 25 mg PO BID [facility] Last Admin: 11/02/17 10:43 Dose: 25 mg Medical Necessity - Tobacco Use Smoking Status: Current every day smoker Tobacco Use: Cigarettes Assessment/Plan All Active Problems (Last Reviewed 11/02/17 @ 04:31 by Zacarias Carias MD) Abdominal pain (Acute) ABDULLAHI (obstructive sleep apnea) (Acute) Acute exacerbation of chronic obstructive pulmonary disease (COPD) (Acute) Syncope (Acute) Chest pain (Acute) Chest pain (Acute) COPD (chronic obstructive pulmonary disease) (Acute) Acute and chronic respiratory failure with hypoxia (Resolved) Acute bronchitis due to human metapneumovirus (Resolved) Atrial fibrillation with RVR (Resolved) COPD with acute exacerbation (Resolved) Gram-negative pneumonia (Resolved) Cardiomyopathy (Ruled-out) 1. suspected ischemic colitis still with abdominal pain lactic acid was elevated, then resolved supportive mgmt add empiric cipro and flagyl 2. right knee pain possible effusion check xray 3. wheezing upper respiratory dc steroids and observe 4. DM2 uncontrolled exacerbated by steroids given that I am discontinuing steroids, continue with lantus and log 5. chronic afib on dilt and dig anticoagulated on xarelto 6. DVT proph: on xarelto Code Visit Inpatient E&M: 48357 Subs Hosp L2
--- NOTE | 2017-11-02 13:39 | PN_ITS ---
Patient Problems: Active and Suspected Problems (Last Reviewed 11/02/17 @ 04:31 by Zacarias Carias MD) Abdominal pain (Acute) Subjective: still with RLQ abdominal pain. Vitals/I&O's: Vital Signs Temp Pulse Resp BP Pulse Ox 36.6 C 90 18 132/72 H 96 11/02/17 07:55 11/02/17 08:13 11/02/17 08:13 11/02/17 07:55 11/02/17 08:13 Oxygen Flow Rate (L/min) 2 Oxygen Delivery Method Nasal Cannula Weight: 95.6 kg Body Mass Index (BMI) 39.8 Intake and Output for Last 24 Hours 10/31/17 11/01/17 11/02/17 23:59 23:59 23:59 Intake Total 1239 / 1239 Output Total 1000 / 1000 Balance 239 / 239 General: Alert, No apparent distress, - - appears much older than stated age. flat affect. speech is difficult to understang. minimal eye contract. HEENT: Atraumatic, Normocephalic Oral: Moist Mucosa, No Gingival or Mucosal Lesions/ Ulcerations Neck: No Nodes, Thyroid Normal Size and Texture Lungs: Normal air movement, - - upper respiratory wheeze Cardiovascular: Regular rate, Regular Rhythm, Normal S1, Normal S2, No murmurs Abdomen: Bowel Sounds Present, Soft, Non-Distended, - - RLQ abdominal tenderness. Extremities: No edema, No Calf Tenderness Psych/Mental Status: Appropriate, Flat Affect Laboratory Results 11/02/17 03:56: WBC 11.0, RBC 3.93 L, Hgb 10.4 L, Hct 32.9 L, MCV 83.7, MCH 26.5 L, MCHC 31.6 L, RDW 17.6 H, RDW Differential 54.5 H, Plt Count 296, MPV 11.1, Immature Gran % (Auto) 0.300, Neut % (Auto) 60.0, Lymph % (Auto) 28.6, [place] % (Auto) 7.9, Eos % (Auto) 2.8, Baso % (Auto) 0.4, Absolute Neuts (auto) 6.6, Absolute Lymphs (auto) 3.13, Total Counted Not Reportable 11/02/17 03:56: Sodium 133 L, Potassium 5.3 H, Chloride 99, Carbon Dioxide 25.0 , Anion Gap 9, BUN 19 H, Creatinine 0.70, Estim Creat Clear Calc 62.88, Est GFR (MDRD) Af Amer 108, Est GFR (MDRD) Non-Af 90, BUN/Creatinine Ratio 27.0 H, Glucose 216 H, Calcium 8.6 11/02/17 03:58: POC Glucose 249 H 11/02/17 05:18: Lactic Acid 1.8 11/02/17 07:35: POC Glucose 260 H 11/02/17 11:12: POC Glucose 461 H* 11/02/17 11:28: Glucose 433 H Current Medications Hydrocodone Bitart/Acetaminophen ([place] 5mg-325mg) 1 tablet PO Q6H PRN PRN PRN Reason: PAIN Last Admin: 11/02/17 07:57 Dose: 1 tablet Al Hydroxide/Mg Hydroxide (Mylanta Ii) 30 ml PO Q6H PRN PRN PRN Reason: DYSPEPSIA/INDIGESTION Albuterol Sulfate (Ventolin Aerosols) 2.5 mg INHALATION Q2H PRN PRN PRN Reason: SHORTNESS OF BREATH Albuterol/Ipratropium (Duoneb) 3 ml INHALATION Q4H.RT [facility] Last Admin: 11/02/17 11:41 Dose: 3 ml Atorvastatin Calcium (Lipitor) 40 mg PO QHS [facility] Benzonatate (Tessalon Perle) 100 mg PO TID PRN PRN PRN Reason: COUGH Budesonide (Pulmicort Aerosol) 0.5 mg INHALATION Q12H.RT [facility] Last Admin: 11/02/17 08:13 Dose: 0.5 mg Bupropion HCl (Wellbutrin Sr (150mg Tablets)) 150 mg PO BID [facility] Last Admin: 11/02/17 08:00 Dose: 150 mg Buspirone HCl (Buspar) 10 mg PO TID [facility] Last Admin: 11/02/17 06:50 Dose: 10 mg Clonidine (Catapres) 0.1 mg PO Q6H PRN PRN PRN Reason: sbp>160 Dextrose (D50w Syringe) 0 gm IV X1 PRN; Protocol PRN Reason: Hypoglycemia Digoxin (Lanoxin) 250 mcg PO DAILY [facility] Last Admin: 11/02/17 08:00 Dose: 250 mcg Diltiazem HCl (Cardizem Sr) 120 mg PO BID [facility] Last Admin: 11/02/17 08:00 Dose: 120 mg Docusate Sodium (Colace) 100 mg PO DAILY [facility] Last Admin: 11/02/17 08:02 Dose: 100 mg Famotidine (Pepcid) 20 mg PO BID [facility] Last Admin: 11/02/17 08:02 Dose: 20 mg Gabapentin (Neurontin) 100 mg PO TID [facility] Last Admin: 11/02/17 06:50 Dose: 100 mg Glucagon () 1 mg IM .X1 PRN PRN Reason: Hypoglycemia Guaifenesin (Mucinex) 1,200 mg PO BID [facility] Last Admin: 11/02/17 08:01 Dose: 1,200 mg Sodium Chloride () 1,000 mls @ 75 mls/hr IV .[id number] [facility] Stop: 11/02/17 15:14 Last Admin: 11/02/17 09:40 Dose: 75 mls/hr Insulin Glargine (Lantus (Bkc)) 55 units SC QHS [facility] Last Admin: 11/02/17 04:00 Dose: 55 units Insulin Human Lispro (Humalog Kwikpen (Bkc)) 12 unit SQ BREAKFAST [facility] Last Admin: 11/02/17 08:07 Dose: 12 units Insulin Human Lispro (Humalog Kwikpen (Bkc)) 12 unit SQ DINNER [facility] Insulin Human Lispro (Humalog Kwikpen (Bkc)) 12 unit SQ LUNCH [facility] Last Admin: 11/02/17 11:54 Dose: 12 units Insulin Human Lispro (Humalog Kwikpen (Bkc)) 0 unit SQ ACHS [facility] PRN Reason: Protocol Last Admin: 11/02/17 11:55 Dose: 11 units Lisinopril (Zestril) 5 mg PO DAILY [facility] Last Admin: 11/02/17 07:59 Dose: 5 mg Magnesium Hydroxide (Milk Of Magnesia) 30 ml PO DAILY PRN PRN PRN Reason: Constipation Methylprednisolone (Solu-Medrol) 40 mg IV DAILY [facility] Last Admin: 11/02/17 10:43 Dose: 40 mg Morphine Sulfate () 1 - 2 mg IV Q4H PRN PRN PRN Reason: PAIN Last Admin: 11/02/17 10:56 Dose: 2 mg Nicotine (Nicoderm Cq (Pbkc)) 21 mg TRANSDERM. DAILY [facility] Last Admin: 11/02/17 08:06 Dose: 21 mg Ondansetron HCl (Zofran) 4 mg IV Q8H PRN PRN PRN Reason: Nausea Polyethylene Glycol (Miralax) 17 gm PO DAILY [facility] Last Admin: 11/02/17 08:00 Dose: 17 gm Propranolol HCl (Inderal) 10 mg PO BID [facility] Last Admin: 11/02/17 08:02 Dose: 10 mg Rivaroxaban (Xarelto) 20 mg PO DAILY [facility] Last Admin: 11/02/17 10:52 Dose: 20 mg Senna/Docusate Sodium (Senokot-S, Estefania-Colace) 1 tablet PO DAILY PRN PRN PRN Reason: Constipation Sodium Chloride () 5 - 30 ml IV UD PRN PRN Reason: SALINE FLUSH Last Admin: 11/02/17 10:43 Dose: 10 ml Spironolactone (Aldactone) 25 mg PO BID [facility] Last Admin: 11/02/17 10:43 Dose: 25 mg Medical Necessity - Tobacco Use Smoking Status: Current every day smoker Tobacco Use: Cigarettes Assessment/Plan All Active Problems (Last Reviewed 11/02/17 @ 04:31 by Zacarias Carias MD) Abdominal pain (Acute) ABDULLAHI (obstructive sleep apnea) (Acute) Acute exacerbation of chronic obstructive pulmonary disease (COPD) (Acute) Syncope (Acute) Chest pain (Acute) Chest pain (Acute) COPD (chronic obstructive pulmonary disease) (Acute) Acute and chronic respiratory failure with hypoxia (Resolved) Acute bronchitis due to human metapneumovirus (Resolved) Atrial fibrillation with RVR (Resolved) COPD with acute exacerbation (Resolved) Gram-negative pneumonia (Resolved) Cardiomyopathy (Ruled-out) 1. suspected ischemic colitis * still with abdominal pain * lactic acid was elevated, then resolved * supportive mgmt * add empiric cipro and flagyl 2. right knee pain * possible effusion * check xray 3. wheezing * upper respiratory * dc steroids and observe 4. DM2 * uncontrolled * exacerbated by steroids * given that I am discontinuing steroids, continue with lantus and log 5. chronic afib * on dilt and dig * anticoagulated on xarelto 6. DVT proph: on xarelto Code Visit Inpatient E&M: 21333 Subs Hosp L2
--- NOTE | 2017-11-02 13:47 | RAD_ITS ---
STUDY: X-RAY - RIGHT KNEE REASON FOR EXAM: Female, 62 years old. Knee pain. TECHNIQUE: 3 view(s) of the knee. COMPARISON: Comparison is made with prior study dated July 19, 2016. FINDINGS: Degenerative spurring in the distal femur. Degenerative spurring of the tibial plateau. Normal proximal tibiofibular articulation. There is severe degenerative arthrosis of the medial femorotibial compartment with severe joint space narrowing. There is mild degenerative arthrosis of the lateral femorotibial compartment. There is severe degenerative arthrosis of the patellofemoral articulation. There are atherosclerotic calcifications. There is a 1.6 cm x 1.7 cm ossification along the posterior lateral aspect of the knee joint. This may represent an intra-articular loose body. RAD/Knee 1 or 2 Views IMPRESSION: Degenerative arthrosis. Findings suggestive of a 1.6 cm x 1.7 cm loose body within the knee joint. Electronically Signed: Jose Lemos MD at 14:48 EDT Tel [phone], Service support ,
[2017-11-02] MEDS: Ciprofloxacin 400 MG/200 ML BAG 200 MG IV (14:09)
[2017-11-02] MEDS: busPIRone 15 MG TABLET 10 MG PO ×2 (14:09→21:39)
--- NOTE | 2017-11-02 14:54 | MRI_ITS ---
STUDY: MRI RIGHT KNEE REASON FOR EXAM: Female, 62 years old. Pain and swelling. Difficulty walking. Possible loose body. TECHNIQUE: Standardized fat and water weighted pulse sequences were obtained in all 3 orthogonal planes. COMPARISON: X-ray FINDINGS: There is medial meniscus tear of the posterior horn, series 4 images /42 through 34. There is tearing and extrusion of the body of the medial meniscus. There is diffuse, full thickness articular cartilage loss of the medial femorotibial compartment. There is severe osteoarthritic spur formation of the medial knee compartment. Normal medial collateral ligamentous complex (MCL). Normal distal semimembranosus, gracilis and semitendinosus tendons. There is lateral meniscus tear of the anterior horn, series 4 images through . There is diffuse, greater than 50% thickness articular cartilage loss of the lateral femorotibial compartment. There is severe osteoarthritic spur formation of the lateral knee compartment. Normal proximal tibiofibular articulation. Normal lateral collateral (fibular) ligament. Normal popliteus tendon. Normal biceps femoris tendon. Attenuation suggesting chronic sprain or partial tear of the anterior cruciate ligament (ACL). Normal posterior cruciate ligament (PCL). There is arthrosis of the patellofemoral articulation. There is diffuse, less than 50% thickness articular cartilage loss of the patellofemoral compartment. Normal medial and lateral patellar retinaculum. Normal quadriceps tendon. Normal patellar tendon. Normal Hoffa's fat pad. There is a moderate volume joint effusion. There is a 1.7 cm diminished signal loose body in the suprapatellar region. There is 1.8 cm diminished signal loose body at the posterior lateral aspect. The soft tissues are unremarkable. The otherwise visualized osseous structures are unremarkable. MRI/Lower Ext Joint Only (Routine) IMPRESSION: Tricompartmental degenerative change. Medial meniscus tear. Lateral meniscus tear. Joint effusion with loose bodies. Electronically Signed: Danny Hale MD at 19:42 EDT , Service support ,
[2017-11-02 19:16] LABS: Bedside Glucose 367 mg/dL (70-110)
[2017-11-02] MEDS: Atorvastatin Calcium 40 MG Tablet PO (21:40)
[2017-11-02 21:51] LABS: Bedside Glucose 378 mg/dL (70-110)
[2017-11-03] VITALS (9 sets, daily range): BP systolic 99–118; BP diastolic 48–72; PULSE 64–80; RESP 18–22; TEMP 36.1–36.3; O2SAT 92–97
[2017-11-03] MEDS: Ciprofloxacin 400 MG/200 ML BAG 200 MG IV ×2 (00:15→10:41)
[2017-11-03 01:26] LABS: Bedside Glucose 318 mg/dL (70-110)
[2017-11-03] MEDS: Ipratropium/Albuterol Sulfate 3 ML AMPUL.NEB INHALATION ×3 (03:02→10:40)
[2017-11-03] MEDS: busPIRone 15 MG TABLET 10 MG PO ×2 (05:04→13:38)
[2017-11-03] MEDS: Gabapentin 100 MG Capsule PO ×2 (05:05→13:38)
[2017-11-03] MEDS: HYDROcodone Bitartrate/Apap 5/325 Tablet PO ×2 (05:08→11:20)
[2017-11-03] MEDS: Budesonide Respules 0.5 MG/2 ML AMPUL.NEB. INHALATION (07:29)
[2017-11-03 07:34] LABS: Absolute Neutrophil Count 14.4 X10^3/uL (2.0-7.7); Basophil# 0.01 X10^3/uL; Basophil% 0.1 % (0-1); Hematocrit 31.9 % (37-47); Hemoglobin 10.2 g/dl (12.0-15.0); Lymphocyte % 8.8 % (19-41); Mean Corpuscular Hgb 26.8 pg (27.0-32.0); Mean Corpuscular Volume 83.9 fL (81-99); Mean Platelet Vol. 11.7 fl (6.2-12.0); Monocyte# 0.96 X10^3/uL; Monocyte% 5.7 % (0-10); Neutrophil # 14.39 X10^3/uL (2.7-7.7); Neutrophil % 84.9 % (47-70); Platelet Count 287 K/mm3 (150-450); RBC Distribution Width CV 17.1 % (11.6-14.6); RBC Distribution Width SD 51.4 fl (35.1-43.9)
[2017-11-03 07:37] LABS: POSITIVE COUNT NO; POSITIVE DIFFERENTIAL NO; POSITIVE MORPHOLOGY NO
[2017-11-03 07:56] LABS: Bedside Glucose 269 mg/dL (70-110)
[2017-11-03 07:58] LABS: Anion Gap 9 (5-15); BUN 15 mg/dL (7-18); BUN/Creat Ratio 21.9 RATIO (10-20); Calcium,Total 8.6 mg/dL (8.5-10.1); Chloride 101 mmol/L (98-107); Creatinine, Serum 0.68 mg/dL (0.55-1.02); EST Glomerular Filtration Rate 93 mL/min (>60); Est Glom Filt Rate - Afr Amer 112 mL/min (>60); Estimated Creatinine Clearance 64.73 ml/min; Glucose 277 mg/dL (74-106); Potassium 4.9 mmol/L (3.5-5.1); Sodium Level 133 mmol/L (136-145)
[2017-11-03] MEDS: Insulin Lispro 100 UNIT/ML INSULN.PEN SQ ×2 (08:03→11:22)
[2017-11-03] MEDS: Insulin Lispro 100 UNIT/ML INSULN.PEN 12 UNIT SQ ×2 (08:03→11:21)
[2017-11-03] MEDS: dilTIAZem 60 MG CAP.SR.12H 120 MG PO (08:04)
[2017-11-03] MEDS: Famotidine 20 MG Tablet PO (08:04)
[2017-11-03] MEDS: Spironolactone 25 MG Tablet PO (08:05)
[2017-11-03] MEDS: buPROPion (SR) 150 MG Tablet.SA PO (08:05)
[2017-11-03] MEDS: Docusate Sodium 100 MG Capsule PO (08:05)
[2017-11-03] MEDS: Lisinopril 5 MG Tablet PO (08:05)
[2017-11-03] MEDS: Digoxin 250 MCG Tablet PO (08:06)
[2017-11-03] MEDS: guaiFENesin 1,200 MG Tablet 1200 MG PO (08:07)
[2017-11-03] MEDS: Polyethylene Glycol 3350 17 GM PACKET PO (08:07)
[2017-11-03] MEDS: Rivaroxaban 20 MG Tablet PO (10:42)
--- NOTE | 2017-11-03 10:58 | CASEMGMT ---
Social Work Note SW spoke with PT/OT who states pt has refused therapy yesterday and today. Per PT/OT pt gets therapy at [facility]. Plan: Pt to return to [facility] when medically cleared Madeline Dominguez [employer], [employer]
[2017-11-03 11:30] LABS: Bedside Glucose 399 mg/dL (70-110)
--- NOTE | 2017-11-03 11:42 | PCM.PN.HOSP ---
Patient Problems: Active and Suspected Problems (Last Reviewed 11/02/17 @ 04:31 by Zacarias Carias MD) Abdominal pain (Acute) Subjective: still with abdominal pain, but eating. still with right knee pain. declined to work with therapy today. Vitals/I&O's: Vital Signs Temp Pulse Resp BP Pulse Ox 36.3 C L 64 20 H 99/48 L 92 11/03/17 07:50 11/03/17 10:40 11/03/17 10:40 11/03/17 10:31 11/03/17 07:50 Oxygen Flow Rate (L/min) 1 Oxygen Delivery Method Nasal Cannula Weight: 95.6 kg Body Mass Index (BMI) 39.8 Intake and Output for Last 24 Hours 11/01/17 11/02/17 11/03/17 23:59 23:59 23:59 Intake Total 1914 / 1914 1184 / 1184 Output Total 1500 / 1500 1999 / 1999 Balance 414 / 414 -816 / -816 General: Alert, No apparent distress HEENT: Atraumatic, Normocephalic Oral: Moist Mucosa, No Gingival or Mucosal Lesions/ Ulcerations Neck: No Nodes, Thyroid Normal Size and Texture Lungs: Clear to auscultation, Normal air movement, No rhonchi, No wheeze Cardiovascular: Regular rate, Regular Rhythm, Normal S1, Normal S2, No murmurs Abdomen: Bowel Sounds Present, Soft, Non-Distended, Tender - Tender in right lower quadrant but when distracted did not demonstrate significant abdominal tenderness. Extremities: No edema, No Calf Tenderness, - - Right knee effusion, no warmth. Skin: No rashes, No breakdown Psych/Mental Status: Appropriate, Flat Affect Laboratory Results 11/02/17 11:28: Glucose 433 H 11/02/17 16:39: POC Glucose 367 H 11/02/17 21:44: POC Glucose 378 H 11/03/17 01:19: POC Glucose 318 H 11/03/17 06:37: WBC 17.0 H, RBC 3.80 L, Hgb 10.2 L, Hct 31.9 L, MCV 83.9, MCH 26.8 L, MCHC 32.0, RDW 17.1 H, RDW Differential 51.4 H, Plt Count 287, MPV 11.7, Immature Gran % (Auto) 0.500, Neut % (Auto) 84.9 H, Lymph % (Auto) 8.8 L, [place] % (Auto) 5.7, Eos % (Auto) 0.0, Baso % (Auto) 0.1, Absolute Neuts (auto) 14.4 H, Absolute Lymphs (auto) 1.50, Total Counted Not Reportable 11/03/17 06:37: Sodium 133 L, Potassium 4.9, Chloride 101, Carbon Dioxide 23.0, Anion Gap 9, BUN 15, Creatinine 0.68, Estim Creat Clear Calc 64.73, Est GFR (MDRD) Af Amer 112, Est GFR (MDRD) Non-Af 93, BUN/Creatinine Ratio 21.9 H, Glucose 277 H, Calcium 8.6 11/03/17 07:07: POC Glucose 269 H 11/03/17 11:19: POC Glucose 399 H Current Medications Hydrocodone Bitart/Acetaminophen ([place] 5mg-325mg) 1 tablet PO Q6H PRN PRN PRN Reason: PAIN Last Admin: 11/03/17 11:20 Dose: 1 tablet Al Hydroxide/Mg Hydroxide (Mylanta Ii) 30 ml PO Q6H PRN PRN PRN Reason: DYSPEPSIA/INDIGESTION Albuterol Sulfate (Ventolin Aerosols) 2.5 mg INHALATION Q2H PRN PRN PRN Reason: SHORTNESS OF BREATH Albuterol/Ipratropium (Duoneb) 3 ml INHALATION Q4H.RT [facility] Last Admin: 11/03/17 10:40 Dose: 3 ml Atorvastatin Calcium (Lipitor) 40 mg PO QHS [facility] Last Admin: 11/02/17 21:40 Dose: 40 mg Benzonatate (Tessalon Perle) 100 mg PO TID PRN PRN PRN Reason: COUGH Budesonide (Pulmicort Aerosol) 0.5 mg INHALATION Q12H.RT [facility] Last Admin: 11/03/17 07:29 Dose: 0.5 mg Bupropion HCl (Wellbutrin Sr (150mg Tablets)) 150 mg PO BID [facility] Last Admin: 11/03/17 08:05 Dose: 150 mg Buspirone HCl (Buspar) 10 mg PO TID [facility] Last Admin: 11/03/17 05:04 Dose: 10 mg Clonidine (Catapres) 0.1 mg PO Q6H PRN PRN PRN Reason: sbp>160 Dextrose (D50w Syringe) 0 gm IV X1 PRN; Protocol PRN Reason: Hypoglycemia Digoxin (Lanoxin) 250 mcg PO DAILY [facility] Last Admin: 11/03/17 08:06 Dose: 250 mcg Diltiazem HCl (Cardizem Sr) 120 mg PO BID [facility] Last Admin: 11/03/17 08:04 Dose: 120 mg Docusate Sodium (Colace) 100 mg PO DAILY [facility] Last Admin: 11/03/17 08:05 Dose: 100 mg Famotidine (Pepcid) 20 mg PO BID [facility] Last Admin: 11/03/17 08:04 Dose: 20 mg Gabapentin (Neurontin) 100 mg PO TID [facility] Last Admin: 11/03/17 05:05 Dose: 100 mg Glucagon () 1 mg IM .X1 PRN PRN Reason: Hypoglycemia Guaifenesin (Mucinex) 1,200 mg PO BID [facility] Last Admin: 11/03/17 08:07 Dose: 1,200 mg Ciprofloxacin (Cipro) 400 mg in 200 mls @ 200 mls/hr IV Q12 [facility] Last Admin: 11/03/17 10:41 Dose: 200 mls/hr Metronidazole (Flagyl) 500 mg in 100 mls @ 100 mls/hr IV Q8 [facility] Last Admin: 11/03/17 05:04 Dose: 100 mls/hr Insulin Glargine (Lantus (Bkc)) 55 units SC QHS [facility] Last Admin: 11/02/17 21:45 Dose: 55 units Insulin Human Lispro (Humalog Kwikpen (Bkc)) 12 unit SQ BREAKFAST [facility] Last Admin: 11/03/17 08:03 Dose: 12 units Insulin Human Lispro (Humalog Kwikpen (Bkc)) 12 unit SQ DINNER [facility] Last Admin: 11/02/17 16:42 Dose: 12 units Insulin Human Lispro (Humalog Kwikpen (Bkc)) 12 unit SQ LUNCH [facility] Last Admin: 11/03/17 11:21 Dose: 12 units Insulin Human Lispro (Humalog Kwikpen (Bkc)) 0 unit SQ ACHS [facility] PRN Reason: Protocol Last Admin: 11/03/17 11:22 Dose: 10 units Lisinopril (Zestril) 5 mg PO DAILY [facility] Last Admin: 11/03/17 08:05 Dose: 5 mg Magnesium Hydroxide (Milk Of Magnesia) 30 ml PO DAILY PRN PRN PRN Reason: Constipation Morphine Sulfate () 1 - 2 mg IV Q4H PRN PRN PRN Reason: PAIN Last Admin: 11/02/17 10:56 Dose: 2 mg Nicotine (Nicoderm Cq (Pbkc)) 21 mg TRANSDERM. DAILY [facility] Last Admin: 11/03/17 10:41 Dose: 21 mg Ondansetron HCl (Zofran) 4 mg IV Q8H PRN PRN PRN Reason: Nausea Polyethylene Glycol (Miralax) 17 gm PO DAILY [facility] Last Admin: 11/03/17 08:07 Dose: 17 gm Propranolol HCl (Inderal) 10 mg PO BID [facility] Last Admin: 11/02/17 21:41 Dose: 10 mg Rivaroxaban (Xarelto) 20 mg PO DAILY [facility] Last Admin: 11/03/17 10:42 Dose: 20 mg Senna/Docusate Sodium (Senokot-S, Estefania-Colace) 1 tablet PO DAILY PRN PRN PRN Reason: Constipation Sodium Chloride () 5 - 30 ml IV UD PRN PRN Reason: SALINE FLUSH Last Admin: 11/02/17 10:43 Dose: 10 ml Spironolactone (Aldactone) 25 mg PO BID [facility] Last Admin: 11/03/17 08:05 Dose: 25 mg Medical Necessity - Tobacco Use Smoking Status: Current every day smoker Tobacco Use: Cigarettes Assessment/Plan All Active Problems (Last Reviewed 11/02/17 @ 04:31 by Zacarias Carias MD) Abdominal pain (Acute) ABDULLAHI (obstructive sleep apnea) (Acute) Acute exacerbation of chronic obstructive pulmonary disease (COPD) (Acute) Syncope (Acute) Chest pain (Acute) Chest pain (Acute) COPD (chronic obstructive pulmonary disease) (Acute) Acute and chronic respiratory failure with hypoxia (Resolved) Acute bronchitis due to human metapneumovirus (Resolved) Atrial fibrillation with RVR (Resolved) COPD with acute exacerbation (Resolved) Gram-negative pneumonia (Resolved) Cardiomyopathy (Ruled-out) 1. suspected ischemic colitis still with abdominal pain lactic acid was elevated, then resolved supportive mgmt add empiric cipro and flagyl follow up with General Surgery as outpt. 2. right knee pain Due to effusion, meniscal tear and loose bodies Discussed with Dr. Grijalva, who said the patient can follow up in her office for possible arthrocenteses. Will need to hold Xarelto beforehand. supportive mgmt at this time. 3. wheezing upper respiratory dc steroids and observe 4. DM2 uncontrolled exacerbated by steroids given that I am discontinuing steroids, continue with lantus and log 5. chronic afib on dilt and dig anticoagulated on xarelto hold 48 hours before arthrocentesis 6. DVT proph: on xarelto
--- NOTE | 2017-11-03 11:52 | PN_ITS ---
Patient Problems: Active and Suspected Problems (Last Reviewed 11/02/17 @ 04:31 by Zacarias Carias MD) Abdominal pain (Acute) Subjective: still with abdominal pain, but eating. still with right knee pain. declined to work with therapy today. Vitals/I&O's: Vital Signs Temp Pulse Resp BP Pulse Ox 36.3 C L 64 20 H 99/48 L 92 11/03/17 07:50 11/03/17 10:40 11/03/17 10:40 11/03/17 10:31 11/03/17 07:50 Oxygen Flow Rate (L/min) 1 Oxygen Delivery Method Nasal Cannula Weight: 95.6 kg Body Mass Index (BMI) 39.8 Intake and Output for Last 24 Hours 11/01/17 11/02/17 11/03/17 23:59 23:59 23:59 Intake Total 1914 / 1914 1184 / 1184 Output Total 1500 / 1500 1999 / 1999 Balance 414 / 414 -816 / -816 General: Alert, No apparent distress HEENT: Atraumatic, Normocephalic Oral: Moist Mucosa, No Gingival or Mucosal Lesions/ Ulcerations Neck: No Nodes, Thyroid Normal Size and Texture Lungs: Clear to auscultation, Normal air movement, No rhonchi, No wheeze Cardiovascular: Regular rate, Regular Rhythm, Normal S1, Normal S2, No murmurs Abdomen: Bowel Sounds Present, Soft, Non-Distended, Tender - Tender in right lower quadrant but when distracted did not demonstrate significant abdominal tenderness. Extremities: No edema, No Calf Tenderness, - - Right knee effusion, no warmth. Skin: No rashes, No breakdown Psych/Mental Status: Appropriate, Flat Affect Laboratory Results 11/02/17 11:28: Glucose 433 H 11/02/17 16:39: POC Glucose 367 H 11/02/17 21:44: POC Glucose 378 H 11/03/17 01:19: POC Glucose 318 H 11/03/17 06:37: WBC 17.0 H, RBC 3.80 L, Hgb 10.2 L, Hct 31.9 L, MCV 83.9, MCH 26.8 L, MCHC 32.0, RDW 17.1 H, RDW Differential 51.4 H, Plt Count 287, MPV 11.7 , Immature Gran % (Auto) 0.500, Neut % (Auto) 84.9 H, Lymph % (Auto) 8.8 L, [place] % (Auto) 5.7, Eos % (Auto) 0.0, Baso % (Auto) 0.1, Absolute Neuts (auto) 14.4 H, Absolute Lymphs (auto) 1.50, Total Counted Not Reportable 11/03/17 06:37: Sodium 133 L, Potassium 4.9, Chloride 101, Carbon Dioxide 23.0, Anion Gap 9, BUN 15, Creatinine 0.68, Estim Creat Clear Calc 64.73, Est GFR ( MDRD) Af Amer 112, Est GFR (MDRD) Non-Af 93, BUN/Creatinine Ratio 21.9 H, Glucose 277 H, Calcium 8.6 11/03/17 07:07: POC Glucose 269 H 11/03/17 11:19: POC Glucose 399 H Current Medications Hydrocodone Bitart/Acetaminophen ([place] 5mg-325mg) 1 tablet PO Q6H PRN PRN PRN Reason: PAIN Last Admin: 11/03/17 11:20 Dose: 1 tablet Al Hydroxide/Mg Hydroxide (Mylanta Ii) 30 ml PO Q6H PRN PRN PRN Reason: DYSPEPSIA/INDIGESTION Albuterol Sulfate (Ventolin Aerosols) 2.5 mg INHALATION Q2H PRN PRN PRN Reason: SHORTNESS OF BREATH Albuterol/Ipratropium (Duoneb) 3 ml INHALATION Q4H.RT [facility] Last Admin: 11/03/17 10:40 Dose: 3 ml Atorvastatin Calcium (Lipitor) 40 mg PO QHS [facility] Last Admin: 11/02/17 21:40 Dose: 40 mg Benzonatate (Tessalon Perle) 100 mg PO TID PRN PRN PRN Reason: COUGH Budesonide (Pulmicort Aerosol) 0.5 mg INHALATION Q12H.RT [facility] Last Admin: 11/03/17 07:29 Dose: 0.5 mg Bupropion HCl (Wellbutrin Sr (150mg Tablets)) 150 mg PO BID [facility] Last Admin: 11/03/17 08:05 Dose: 150 mg Buspirone HCl (Buspar) 10 mg PO TID [facility] Last Admin: 11/03/17 05:04 Dose: 10 mg Clonidine (Catapres) 0.1 mg PO Q6H PRN PRN PRN Reason: sbp>160 Dextrose (D50w Syringe) 0 gm IV X1 PRN; Protocol PRN Reason: Hypoglycemia Digoxin (Lanoxin) 250 mcg PO DAILY [facility] Last Admin: 11/03/17 08:06 Dose: 250 mcg Diltiazem HCl (Cardizem Sr) 120 mg PO BID [facility] Last Admin: 11/03/17 08:04 Dose: 120 mg Docusate Sodium (Colace) 100 mg PO DAILY [facility] Last Admin: 11/03/17 08:05 Dose: 100 mg Famotidine (Pepcid) 20 mg PO BID [facility] Last Admin: 11/03/17 08:04 Dose: 20 mg Gabapentin (Neurontin) 100 mg PO TID [facility] Last Admin: 11/03/17 05:05 Dose: 100 mg Glucagon () 1 mg IM .X1 PRN PRN Reason: Hypoglycemia Guaifenesin (Mucinex) 1,200 mg PO BID [facility] Last Admin: 11/03/17 08:07 Dose: 1,200 mg Ciprofloxacin (Cipro) 400 mg in 200 mls @ 200 mls/hr IV Q12 [facility] Last Admin: 11/03/17 10:41 Dose: 200 mls/hr Metronidazole (Flagyl) 500 mg in 100 mls @ 100 mls/hr IV Q8 [facility] Last Admin: 11/03/17 05:04 Dose: 100 mls/hr Insulin Glargine (Lantus (Bkc)) 55 units SC QHS [facility] Last Admin: 11/02/17 21:45 Dose: 55 units Insulin Human Lispro (Humalog Kwikpen (Bkc)) 12 unit SQ BREAKFAST [facility] Last Admin: 11/03/17 08:03 Dose: 12 units Insulin Human Lispro (Humalog Kwikpen (Bkc)) 12 unit SQ DINNER [facility] Last Admin: 11/02/17 16:42 Dose: 12 units Insulin Human Lispro (Humalog Kwikpen (Bkc)) 12 unit SQ LUNCH [facility] Last Admin: 11/03/17 11:21 Dose: 12 units Insulin Human Lispro (Humalog Kwikpen (Bkc)) 0 unit SQ ACHS [facility] PRN Reason: Protocol Last Admin: 11/03/17 11:22 Dose: 10 units Lisinopril (Zestril) 5 mg PO DAILY [facility] Last Admin: 11/03/17 08:05 Dose: 5 mg Magnesium Hydroxide (Milk Of Magnesia) 30 ml PO DAILY PRN PRN PRN Reason: Constipation Morphine Sulfate () 1 - 2 mg IV Q4H PRN PRN PRN Reason: PAIN Last Admin: 11/02/17 10:56 Dose: 2 mg Nicotine (Nicoderm Cq (Pbkc)) 21 mg TRANSDERM. DAILY [facility] Last Admin: 11/03/17 10:41 Dose: 21 mg Ondansetron HCl (Zofran) 4 mg IV Q8H PRN PRN PRN Reason: Nausea Polyethylene Glycol (Miralax) 17 gm PO DAILY [facility] Last Admin: 11/03/17 08:07 Dose: 17 gm Propranolol HCl (Inderal) 10 mg PO BID [facility] Last Admin: 11/02/17 21:41 Dose: 10 mg Rivaroxaban (Xarelto) 20 mg PO DAILY [facility] Last Admin: 11/03/17 10:42 Dose: 20 mg Senna/Docusate Sodium (Senokot-S, Estefania-Colace) 1 tablet PO DAILY PRN PRN PRN Reason: Constipation Sodium Chloride () 5 - 30 ml IV UD PRN PRN Reason: SALINE FLUSH Last Admin: 11/02/17 10:43 Dose: 10 ml Spironolactone (Aldactone) 25 mg PO BID [facility] Last Admin: 11/03/17 08:05 Dose: 25 mg Medical Necessity - Tobacco Use Smoking Status: Current every day smoker Tobacco Use: Cigarettes Assessment/Plan All Active Problems (Last Reviewed 11/02/17 @ 04:31 by Zacarias Carias MD) Abdominal pain (Acute) ABDULLAHI (obstructive sleep apnea) (Acute) Acute exacerbation of chronic obstructive pulmonary disease (COPD) (Acute) Syncope (Acute) Chest pain (Acute) Chest pain (Acute) COPD (chronic obstructive pulmonary disease) (Acute) Acute and chronic respiratory failure with hypoxia (Resolved) Acute bronchitis due to human metapneumovirus (Resolved) Atrial fibrillation with RVR (Resolved) COPD with acute exacerbation (Resolved) Gram-negative pneumonia (Resolved) Cardiomyopathy (Ruled-out) 1. suspected ischemic colitis * still with abdominal pain * lactic acid was elevated, then resolved * supportive mgmt * add empiric cipro and flagyl * follow up with General Surgery as outpt. 2. right knee pain * Due to effusion, meniscal tear and loose bodies * Discussed with Dr. Grijalva, who said the patient can follow up in her office for possible arthrocenteses. Will need to hold Xarelto beforehand. * supportive mgmt at this time. 3. wheezing * upper respiratory * dc steroids and observe 4. DM2 * uncontrolled * exacerbated by steroids * given that I am discontinuing steroids, continue with lantus and log 5. chronic afib * on dilt and dig * anticoagulated on xarelto * hold 48 hours before arthrocentesis 6. DVT proph: on xarelto
--- NOTE | 2017-11-03 11:58 | PCM.DC ---
- Discharge Diagnoses Current Active Problems: Current Active and Chronic Problems (Last Reviewed 11/02/17 @ 04:31 by Zacarias Carias MD) Abdominal pain (Acute) You will use the following diet at home:: Calorie/Carbohydrate Controlled (specify 1200, 1400, etc) - 1800 kcal/day Your food should be the consistency of: Regular Your liquids should be the consistency of: Regular/Thin Discharge Activity: Return to Normal Activity Call your doctor if you observe: Fever of 101 or Higher, Shortness of breath, - - worsening abdominal pain. Allergies/Adverse Reactions: Allergies venom-honey bee [bee venom (honey bee)] Allergy (Verified 11/01/17 20:33) Swelling levofloxacin [From Levaquin] Adverse Reaction (Verified 11/01/17 20:33) Nausea oxycodone HCl [From Percocet] Adverse Reaction (Verified 11/01/17 20:33) Nausea Penicillins Adverse Reaction (Verified 11/01/17 20:33) Nausea/Vom/Diarrhea Medications to take at Discharge Albuterol Aerosols [Ventolin Aerosols] 2.5 mg INHALATION Q2H PRN PRN 05/12/17 Atorvastatin Calcium [Lipitor] 40 mg PO QHS 05/12/17 Budesonide/Formoterol 160/4.5 [Symbicort 160/4.5 Mcg Inhaler (SP)] 2 puff INHALATION BID 05/12/17 Bupropion HCl [Bupropion HCl Sr] 150 mg PO BID 05/12/17 Buspirone HCl 10 mg PO TID 05/12/17 Digoxin 250 mcg PO DAILY 05/12/17 Diltiazem [Cardizem] 120 mg PO BID 05/12/17 Famotidine [Pepcid] 20 mg PO BID 05/12/17 Furosemide [Lasix] 40 mg PO BID 05/12/17 Glucagon,Human Recombinant [Glucagon Emergency Kit] 1 mg IM PRN PRN 05/12/17 Guaifenesin [Mucinex] 1,200 mg PO BID 05/12/17 Insulin Lispro [Humalog] 12 unit SQ TIDCM 05/12/17 Ipratropium/Albuterol Sulfate [Duoneb] 3 ml INHALATION Q4H.RT 05/12/17 Lisinopril [Prinivil] 5 mg PO DAILY 05/12/17 Propranolol HCl [Inderal (Beta Rubén)] 10 mg PO BID 05/12/17 Sennosides/Docusate Sodium [Senna-Docusate Sodium Tablet] 2 tab PO DAILY PRN PRN 05/12/17 Hydrocodone Bitart/Apap 5-325 [[place] 5/325] 1 tab PO Q6H PRN PRN 08/11/17 Mag Hydrox/Al Hydrox/Simeth [Mylanta II] 30 ml PO Q6H PRN PRN 08/11/17 Polyethylene Glycol 3350 [Miralax] 17 gm PO DAILY 08/11/17 docusate sodium 100 mg capsule 100 mg PO QDAY 09/01/17 gabapentin 100 mg capsule 100 mg PO TID cap 09/01/17 Spironolactone [Aldactone] 25 mg PO BID 11/01/17 Benzonatate [Tessalon Perle] 100 mg PO TID PRN PRN 11/02/17 Insulin Lispro [Humalog] See Protocol 11/02/17 Nitroglycerin 0.4 mg SL X1 11/02/17 Ciprofloxacin [Cipro IVPB] 400 mg IV Q12 #17 bag 11/03/17 Insulin Glargine,Hum.rec.anlog [Lantus Solostar] 60 unit SQ QHS #0 11/03/17 Metronidazole [Flagyl IVPB] 500 mg IV Q8 #27 bag 11/03/17 Rivaroxaban [Xarelto] 20 mg PO DAILY #0 11/03/17 The following prescriptions were given: Ciprofloxacin [Cipro IVPB] 400 mg IV Q12 #17 bag Metronidazole [Flagyl IVPB] 500 mg IV Q8 #27 bag Primary Care Physician: Camden Burger [Primary Care Provider] - Within 2 Weeks Test Results: Test results from this visit will be discussed in further detail at your follow-up appointment, if applicable. Please Follow Up With: Khloe Montenegro DO - Orthopaedics When: 1 week. Call for appointment. Hold Xarelto 2 days before appointment. Please Follow Up With: Chata Childress MD - General Surgery When: 2-4 weeks. Call for appointment. Proposed Discharge Date: 11/03/17
--- NOTE | 2017-11-03 12:01 | DCINST_ITS ---
- Discharge Diagnoses Current Active Problems: Current Active and Chronic Problems (Last Reviewed 11/02/17 @ 04:31 by Zacarias Carias MD) Abdominal pain (Acute) You will use the following diet at home:: Calorie/Carbohydrate Controlled ( specify 1200, 1400, etc) - 1800 kcal/day Your food should be the consistency of: Regular Your liquids should be the consistency of: Regular/Thin Discharge Activity: Return to Normal Activity Call your doctor if you observe: Fever of 101 or Higher, Shortness of breath, - - worsening abdominal pain. Allergies/Adverse Reactions: Allergies venom-honey bee [bee venom (honey bee)] Allergy (Verified 11/01/17 20:33) Swelling levofloxacin [From Levaquin] Adverse Reaction (Verified 11/01/17 20:33) Nausea oxycodone HCl [From Percocet] Adverse Reaction (Verified 11/01/17 20:33) Nausea Penicillins Adverse Reaction (Verified 11/01/17 20:33) Nausea/Vom/Diarrhea Medications to take at Discharge Albuterol Aerosols [Ventolin Aerosols] 2.5 mg INHALATION Q2H PRN PRN 05/12/17 Atorvastatin Calcium [Lipitor] 40 mg PO QHS 05/12/17 Budesonide/Formoterol 160/4.5 [Symbicort 160/4.5 Mcg Inhaler (SP)] 2 puff INHALATION BID 05/12/17 Bupropion HCl [Bupropion HCl Sr] 150 mg PO BID 05/12/17 Buspirone HCl 10 mg PO TID 05/12/17 Digoxin 250 mcg PO DAILY 05/12/17 Diltiazem [Cardizem] 120 mg PO BID 05/12/17 Famotidine [Pepcid] 20 mg PO BID 05/12/17 Furosemide [Lasix] 40 mg PO BID 05/12/17 Glucagon,Human Recombinant [Glucagon Emergency Kit] 1 mg IM PRN PRN 05/12/17 Guaifenesin [Mucinex] 1,200 mg PO BID 05/12/17 Insulin Lispro [Humalog] 12 unit SQ TIDCM 05/12/17 Ipratropium/Albuterol Sulfate [Duoneb] 3 ml INHALATION Q4H.RT 05/12/17 Lisinopril [Prinivil] 5 mg PO DAILY 05/12/17 Propranolol HCl [Inderal (Beta Rubén)] 10 mg PO BID 05/12/17 Sennosides/Docusate Sodium [Senna-Docusate Sodium Tablet] 2 tab PO DAILY PRN PRN 05/12/17 Hydrocodone Bitart/Apap 5-325 [[place] 5/325] 1 tab PO Q6H PRN PRN 08/11/17 Mag Hydrox/Al Hydrox/Simeth [Mylanta II] 30 ml PO Q6H PRN PRN 08/11/17 Polyethylene Glycol 3350 [Miralax] 17 gm PO DAILY 08/11/17 docusate sodium 100 mg capsule 100 mg PO QDAY 09/01/17 gabapentin 100 mg capsule 100 mg PO TID cap 09/01/17 Spironolactone [Aldactone] 25 mg PO BID 11/01/17 Benzonatate [Tessalon Perle] 100 mg PO TID PRN PRN 11/02/17 Insulin Lispro [Humalog] See Protocol 11/02/17 Nitroglycerin 0.4 mg SL X1 11/02/17 Ciprofloxacin [Cipro IVPB] 400 mg IV Q12 #17 bag 11/03/17 Insulin Glargine,Hum.rec.anlog [Lantus Solostar] 60 unit SQ QHS #0 11/03/17 Metronidazole [Flagyl IVPB] 500 mg IV Q8 #27 bag 11/03/17 Rivaroxaban [Xarelto] 20 mg PO DAILY #0 11/03/17 The following prescriptions were given: Ciprofloxacin [Cipro IVPB] 400 mg IV Q12 #17 bag Metronidazole [Flagyl IVPB] 500 mg IV Q8 #27 bag Primary Care Physician: Camden Burger [Primary Care Provider] - Within 2 Weeks Test Results: Test results from this visit will be discussed in further detail at your follow- up appointment, if applicable. Please Follow Up With: Khloe Montenegro DO - Orthopaedics When: 1 week. Call for appointment. Hold Xarelto 2 days before appointment. Please Follow Up With: Chata Childress MD - General Surgery When: 2-4 weeks. Call for appointment. Proposed Discharge Date: 11/03/17
--- NOTE | 2017-11-03 12:03 | DS.PCM_ITS ---
Discharge Date and Diagnosis - Problem List Patient Problems: Active and Suspected Problems (Last Reviewed 11/02/17 @ 04:31 by Zacarias Carias MD) Abdominal pain (Acute) Date of Admission: 11/02/17 Date of Discharge: 11/03/17 - Primary Discharge Diagnosis Active and Suspected Problems (Last Reviewed 11/02/17 @ 04:31 by Zacarias Carias MD) Abdominal pain (Acute) - Secondary Discharge Diagnosis Chronic Problems (Last Reviewed 11/02/17 @ 04:31 by Zacarias Carias MD) Tobacco dependence due to cigarettes (Chronic) Non-compliance (Chronic) Microcytic anemia (Chronic) Hypersomnia (Chronic) Anemia (Chronic) Hypomagnesemia (Chronic) HTN (hypertension) (Chronic) Morbid obesity with BMI of 40.0-44.9, adult (Chronic) Chronic pain (Chronic) Chronic atrial fibrillation (Chronic) Chronic hypoxemic respiratory failure (Chronic) non-compliant with oxygen Hyperlipemia (Chronic) ECHO in June of 2017 showed a 75% EF Type 2 diabetes mellitus (Chronic) uncontrolled GERD (gastroesophageal reflux disease) (Chronic) Anxiety (Chronic) Insomnia (Chronic) Hospital Course and Treatment Imaging Results: Clinical Impression(s) from Imaging Studies Abdomen/Pelvis CT 11/01/17 21:24 IMPRESSION: No acute process. Mild degenerative spine changes. Electronically Signed: Eliana Small MD at 22:41 EDT Tel , Service support , Chest X-Ray 11/01/17 23:02 IMPRESSION: Normal x-ray examination of the chest. Electronically Signed: Eliana Small MD at 23:29 EDT Tel , Service support , Knee X-Ray 11/02/17 13:47 IMPRESSION: Degenerative arthrosis. Findings suggestive of a 1.6 cm x 1.7 cm loose body within the knee joint. Electronically Signed: Jose Lemos MD at 14:48 EDT Tel [phone], Service support , Lower Extremity MRI 11/02/17 14:54 IMPRESSION: Tricompartmental degenerative change. Medial meniscus tear. Lateral meniscus tear. Joint effusion with loose bodies. Electronically Signed: Danny Hale MD at 19:42 EDT , Service support , Operations: None Procedures: None Summary of Care Provided: The patient is a 62 year old F presents with abdominal pain. 1. suspected ischemic colitis * still with abdominal pain * lactic acid was elevated, then resolved * supportive mgmt * add empiric cipro and flagyl * follow up with General Surgery as outpt. 2. right knee pain * Due to effusion, meniscal tear and loose bodies * Discussed with Dr. Grijalav, who said the patient can follow up in her office for possible arthrocenteses. Will need to hold Xarelto beforehand. * supportive mgmt at this time. 3. wheezing * upper respiratory * dc steroids and observe 4. DM2 * uncontrolled * exacerbated by steroids * increase lantus from 55 to 60. 5. chronic afib * on dilt and dig * anticoagulated on xarelto * hold 48 hours before arthrocentesis[] Discharge Diet: 1800 Calorie Control Diet Discharge Activity: Return to Normal Activity Call your doctor if you observe: Fever of 101 or Higher, Shortness of breath, - - worsening abdominal pain. Home Medications: Medications to take at Discharge Albuterol Aerosols [Ventolin Aerosols] 2.5 mg INHALATION Q2H PRN PRN 05/12/17 Atorvastatin Calcium [Lipitor] 40 mg PO QHS 05/12/17 Budesonide/Formoterol 160/4.5 [Symbicort 160/4.5 Mcg Inhaler (SP)] 2 puff INHALATION BID 05/12/17 Bupropion HCl [Bupropion HCl Sr] 150 mg PO BID 05/12/17 Buspirone HCl 10 mg PO TID 05/12/17 Digoxin 250 mcg PO DAILY 05/12/17 Diltiazem [Cardizem] 120 mg PO BID 05/12/17 Famotidine [Pepcid] 20 mg PO BID 05/12/17 Furosemide [Lasix] 40 mg PO BID 05/12/17 Glucagon,Human Recombinant [Glucagon Emergency Kit] 1 mg IM PRN PRN 05/12/17 Guaifenesin [Mucinex] 1,200 mg PO BID 05/12/17 Insulin Lispro [Humalog] 12 unit SQ TIDCM 05/12/17 Ipratropium/Albuterol Sulfate [Duoneb] 3 ml INHALATION Q4H.RT 05/12/17 Lisinopril [Prinivil] 5 mg PO DAILY 05/12/17 Propranolol HCl [Inderal (Beta Rubén)] 10 mg PO BID 05/12/17 Sennosides/Docusate Sodium [Senna-Docusate Sodium Tablet] 2 tab PO DAILY PRN PRN 05/12/17 Hydrocodone Bitart/Apap 5-325 [[place] 5/325] 1 tab PO Q6H PRN PRN 08/11/17 Mag Hydrox/Al Hydrox/Simeth [Mylanta II] 30 ml PO Q6H PRN PRN 08/11/17 Polyethylene Glycol 3350 [Miralax] 17 gm PO DAILY 08/11/17 docusate sodium 100 mg capsule 100 mg PO QDAY 09/01/17 gabapentin 100 mg capsule 100 mg PO TID cap 09/01/17 Spironolactone [Aldactone] 25 mg PO BID 11/01/17 Benzonatate [Tessalon Perle] 100 mg PO TID PRN PRN 11/02/17 Insulin Lispro [Humalog] See Protocol 11/02/17 Nitroglycerin 0.4 mg SL X1 11/02/17 Ciprofloxacin [Cipro IVPB] 400 mg IV Q12 #17 bag 11/03/17 Insulin Glargine,Hum.rec.anlog [Lantus Solostar] 60 unit SQ QHS #0 11/03/17 Metronidazole [Flagyl IVPB] 500 mg IV Q8 #27 bag 11/03/17 Rivaroxaban [Xarelto] 20 mg PO DAILY #0 11/03/17 Following Prescrptions Were Given to Patient: Ciprofloxacin [Cipro IVPB] 400 mg IV Q12 #17 bag Metronidazole [Flagyl IVPB] 500 mg IV Q8 #27 bag Primary Care Physician: Camden Burger [Primary Care Provider] - Within 2 Weeks Please Follow Up With: Khloe Montenegro DO - Orthopaedics When: 1 week. Call for appointment. Hold Xarelto 2 days before appointment. Please Follow Up With: Chata Childress MD - General Surgery When: 2-4 weeks. Call for appointment. Disposition: Home Minutes spent on discharge:: 35 Patient Condition:: Fair Medical Necessity - Tobacco Use Smoking Status: Current every day smoker Tobacco Use: Cigarettes Meaningful Use Info Meaningful Use Diagnoses (Choose all that apply): None applicable Code Visit Inpatient E&M: 18748 Disch Hosp
[2017-11-03] MEDS: Propranolol 10 MG Tablet PO (13:42)
--- NOTE | 2017-11-03 14:45 | CASEMGMT ---
Social Work Note Pt is discharging back to [facility]. HEIDI Joshua updated this worker that pt won't need oxygen at discharge. LUIS placed a call to HEIDI Gonzales at [facility] and updated her on discharge. [employer] Suzanne updated this worker that she will fax scripts to [facility]. Heidi Joshua updated this worker that pt will need transportation set up. LUIS placed a call to [facility] and set up transportation for 3:00pm via wheelchair van. Transportation form on folder and copy on pt's chart. Plan: Pt to discharge to [facility] via wheelchair van with [facility] transporting at 3:00pm. Madeline Dominguez MSW, SQL REPORT DEVELOPER
== END 2017-11-03 14:57 | disposition home or self-care (01) ==
LOC: ED 11-02 00:59 → MS3 11-02 01:21
PROVIDERS: Admitting Provider Hospitalist; Emergency Provider Emergency Medicine; Family Provider Family Medicine; PCP Family Medicine
DX: R10.31 Right lower quadrant pain (principal); E11.9 Type 2 diabetes mellitus without complications; M25.561 Pain in right knee; I48.2 Chronic atrial fibrillation; F17.210 Nicotine dependence, cigarettes, uncomplicated; G47.33 Obstructive sleep apnea (adult) (pediatric); J44.9 Chronic obstructive pulmonary disease, unspecified; J96.11 Chronic respiratory failure with hypoxia; K21.9 Gastro-esophageal reflux disease without esophagitis; Z79.899 Other long term (current) drug therapy; Z79.01 Long term (current) use of anticoagulants; Z79.51 Long term (current) use of inhaled steroids; Z79.4 Long term (current) use of insulin
CPT/HCPCS: 36415; 71045; 73560; 73721; 74176; 80048; 80053; 81001; 82947; 82962; 83605; 83690; 85025; 94640; 96361; 96365; 96366; 96367; 96375; 96376; 97162; 97166; 99218; 99284; 99406; J7030; A4216; G0378; J0744; J2405

== ENCOUNTER 2017-11-20 11:48 | Inpatient (IN) | payer MEDICAID, SELFPAY ==
[2017-11-20] VITALS (20 sets, daily range): BP systolic 97–119; BP diastolic 50–76; PULSE 71–91; RESP 16–28; TEMP 36.4–37.2; O2SAT 80–98; BMI 51.0; BMI 35.3; BMI 38.9
--- NOTE | 2017-11-20 12:05 | EKG12_ITS ---
Test Reason : SOB Blood Pressure : / mmHG Vent. Rate : 066 BPM Atrial Rate : 053 BPM P-R Int : 000 ms QRS Dur : 090 ms QT Int : 374 ms P-R-T Axes : 000 070 -79 degrees QTc Int : 392 ms Atrial fibrillation RSR' or QR pattern in V1 suggests right ventricular conduction delay Septal infarct , age undetermined Marked ST abnormality, possible inferior subendocardial injury Abnormal ECG Confirmed by ELSY DELGADO, LUCILA ([id number]), manuscript editor DIANA GALVEZ ([id number]) on 11/23/2017 2:50:12 PM Referred By: All Karimi Confirmed By:LUCILA CHIN MD
[2017-11-20] MEDS: Ipratropium/Albuterol Sulfate 3 ML AMPUL.NEB INHALATION ×4 (12:07→23:00)
--- NOTE | 2017-11-20 12:10 | RAD_ITS ---
STUDY: X-RAY CHEST REASON FOR EXAM: Female, 62 years old. Wheezing. Coughing. Hypoxia TECHNIQUE: Single AP portable view of the chest. COMPARISON: November 01, 2017 FINDINGS: The lungs are clear and expanded. There is no demonstrated pleural abnormality. Normal size heart. Normal mediastinum and sangeeta. Normal visualized pulmonary arteries. Normal visualized aortic arch and descending thoracic aorta. Normal visualized thoracic spine. Normal visualized ribs, clavicles, and shoulders. There is no demonstrated abnormality of the visualized soft tissue structures of the upper abdomen. RAD/Chest 1 View (Portable) IMPRESSION: Normal x-ray examination of the chest. Electronically Signed: Danny Hale MD at 13:08 EDT , Service support ,
--- NOTE | 2017-11-20 12:13 | ED.VISSUMM ---
- ER Visit Summary Date of Service: 11/20/17 Chief Complaint: Shortness of breath and wheezing History of Present Illness: The patient is a 62 F history of COPD, A. fib, insulin-dependent diabetes. Patient is on Xarelto for anticoagulation. 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 Camden Mccormick. They felt she was having a COPD flare and centered on the ER for evaluation. She states she is coughing but is nonproductive. She denies any hemoptysis. She denies any chest pain. No fever. Physical Examination: Older female vital signs stable. Pulse ox however is hypoxic at 89%. On room air. She does have accelerated respiratory rate. HEENT exam unremarkable. Neck nontender. No lymphadenopathy. No JVD. Lungs prolonged expiratory phase bilaterally. Inspiratory and expiratory wheezing throughout. Poor air movement. Heart A. fib rate about 80. No murmur. Abdomen soft nontender. Normal bowel sounds no peritoneal signs. She is moving all 4 extremities. They are neurovascularly intact. Calves are nontender. No cords. She has trace edema on both sides. She states this is her baseline. Neurologically she is awake and alert with no focal motor deficits. Test Results: Chest x-ray shows no acute process. No pneumonia. Read both by myself and radiologist. She does have some inverted T waves and ST subtle ST depression in V3 through V5. This is slightly changed from August of this year. White count of 14.4 she often has a high white count. Hemoglobin 11 which is her baseline anemia. Electrolytes unremarkable sodium 132. Normal creatinine and gap. Troponin normal. BNP normal at 19. Emergency Department Course and Treatment: Pt with dyspnea which may be secondary to his COPD flare. Will be treated with Solu-Medrol IV along with DuoNeb and albuterol aerosols. Treatment Plan: Patient is doing better after aerosol treatments. However she still hypoxic on oxygen. Typically she is not on oxygen. She still is wheezing. I do think she would benefit from hospitalization and further respiratory therapy and aerosols. Disposition: Admission Impression: Acute dyspnea secondary to exacerbation of underlying COPD Hypoxia Chronic anemia Chronic A. fib anticoagulated on Xarelto This note was generated with [employer] dictation software. It may contain incorrect words, spelling, and punctuation that were not noted in review of the chart prior to signing ED Disposition - Plan for ED Patient: Chief Complaint: Shortness of Breath Referrals: Camden Burger [Primary Care Provider] -
[2017-11-20] MEDS: MethylPREDNISolone 125 MG/2 ML Vial IV (12:28)
[2017-11-20 12:46] LABS: Absolute Lymphocyte Count 3.03 X10^3/ul (0.83-4.51); Absolute Neutrophil Count 9.7 X10^3/uL (2.0-7.7); Basophil# 0.05 X10^3/uL; Basophil% 0.3 % (0-1); Eosinophil# 0.44 X10^3/uL; Eosinophils% 3.1 % (0-5); Hematocrit 36.9 % (37-47); Hemoglobin 11.8 g/dl (12.0-15.0); Lymphocyte # 3.03 X10^3/ul (4.0); Lymphocyte % 21.1 % (19-41); Mean Corpuscular Hgb 26.5 pg (27.0-32.0); Mean Corpuscular Volume 82.7 fL (81-99); Mean Platelet Vol. 10.4 fl (6.2-12.0); Monocyte# 1.16 X10^3/uL; Monocyte% 8.1 % (0-10); Neutrophil # 9.65 X10^3/uL (2.7-7.7); Neutrophil % 67.2 % (47-70); POSITIVE COUNT NO; POSITIVE DIFFERENTIAL NO; POSITIVE MORPHOLOGY NO; Platelet Count 331 K/mm3 (150-450); RBC Distribution Width CV 17.4 % (11.6-14.6); RBC Distribution Width SD 52.7 fl (35.1-43.9); Red Blood Count 4.46 M/mm3 (4.2-5.4); White Blood Count 14.4 K/mm3 (4.4-11.0)
[2017-11-20] MEDS: Albuterol 2.5 MG/3 ML VIAL.NEB. INHALATION ×2 (13:06→13:21)
[2017-11-20 13:07] LABS: Anion Gap 6 (5-15); BUN 23 mg/dL (7-18); Calcium,Total 9.1 mg/dL (8.5-10.1); Chloride 99 mmol/L (98-107); Creatinine, Serum 0.92 mg/dL (0.55-1.02); EST Glomerular Filtration Rate 66 mL/min (>60); Est Glom Filt Rate - Afr Amer 80 mL/min (>60); Estimated Creatinine Clearance 47.84 ml/min; Glucose 238 mg/dL (74-106); Potassium 4.9 mmol/L (3.5-5.1); Sodium Level 132 mmol/L (136-145)
[2017-11-20 13:09] LABS: BNP,B-Type NATRIURETIC PEPTIDE 19.3 pg/mL (0-100)
--- NOTE | 2017-11-20 14:39 | NURSING ---
DR RASHAAD BERNAL
--- NOTE | 2017-11-20 14:50 | PCM.HP.STD ---
<Brian Hinojosa - Last Filed: 11/20/17 14:50> Problem List (1) Acute exacerbation of chronic obstructive pulmonary disease (COPD) Status: Acute (2) HTN (hypertension) Status: Chronic (3) Chronic atrial fibrillation Status: Chronic (4) Hyperlipemia Status: Chronic Comment: ECHO in June of 2017 showed a 75% EF (5) Type 2 diabetes mellitus Status: Chronic Comment: uncontrolled (6) GERD (gastroesophageal reflux disease) Status: Chronic (7) Morbid obesity with BMI of 50.0-59.9, adult Status: Chronic History of Present Illness Date of Admission: 11/20/17 Chief Complaint: SOB The patient is a 62 year old F past medical history of COPD, diabetes type 2, chronic atrial fibrillation, former heavy smoker, morbid obesity, hypertension, GERD, anxiety who 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 She lives in assisted living and reports that she started feeling more wheezy, coughing more, nonproductive, and has become severely short of breath. She did not look well at the office and was sent over by Dr. Mccormick. She has not recently been on steroids. She denies sick contacts. She does report a sore throat but denies sinus congestion, postnasal drip, fevers or chills. She denies smoking in the last 2 months. She did not use any oxygen at all normally. In the ER she was hypoxic on room air at 80%. She improved with 2 L of oxygen via nasal cannula. 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 [] Past Medical History Past Medical History (Chronic Problems): Chronic Problems (Last Reviewed 11/20/17 @ 11:22 by Yisel Forman) Morbid obesity with BMI of 50.0-59.9, adult (Chronic) Tobacco dependence due to cigarettes (Chronic) Non-compliance (Chronic) Microcytic anemia (Chronic) Hypersomnia (Chronic) Anemia (Chronic) Hypomagnesemia (Chronic) HTN (hypertension) (Chronic) Morbid obesity with BMI of 40.0-44.9, adult (Chronic) Chronic pain (Chronic) Chronic atrial fibrillation (Chronic) Chronic hypoxemic respiratory failure (Chronic) non-compliant with oxygen Hyperlipemia (Chronic) ECHO in June of 2017 showed a 75% EF Type 2 diabetes mellitus (Chronic) uncontrolled GERD (gastroesophageal reflux disease) (Chronic) Anxiety (Chronic) Insomnia (Chronic) Medical History: Medical History (Last Reviewed 11/20/17 @ 11:22 by Yisel Forman) Hypersomnia (Chronic) G47.10 Chest pain (Acute) R07.9 Anemia (Chronic) D64.9 Hypomagnesemia (Chronic) E83.42 HTN (hypertension) (Chronic) I10 Morbid obesity with BMI of 40.0-44.9, adult (Chronic) E66.01, Z68.41 COPD (chronic obstructive pulmonary disease) (Acute) J44.9 Chronic pain (Chronic) G89.29 Chronic atrial fibrillation (Chronic) I48.2 Chronic hypoxemic respiratory failure (Chronic) J96.11 non-compliant with oxygen Hyperlipemia (Chronic) E78.5 ECHO in June of 2017 showed a 75% EF Type 2 diabetes mellitus (Chronic) E11.9 uncontrolled GERD (gastroesophageal reflux disease) (Chronic) K21.9 Anxiety (Chronic) F41.9 Insomnia (Chronic) G47.00 Osteoporosis M81.0 Cardiomyopathy (Ruled-out) I42.9 EF in Oct 2015 45-50 Left ankle pain (Inactive) M25.572 Non-compliance (Inactive) Z91.19 withn follow up with pulmonary Allergies venom-honey bee [bee venom (honey bee)] Allergy (Verified 11/20/17 11:56) Swelling levofloxacin [From Levaquin] Adverse Reaction (Verified 11/20/17 11:56) Nausea oxycodone HCl [From Percocet] Adverse Reaction (Verified 11/20/17 11:56) Nausea Penicillins Adverse Reaction (Verified 11/20/17 11:56) Nausea/Vom/Diarrhea Home Medications: Ambulatory Orders Medication Instructions Recorded Albuterol Aerosols [Ventolin 2.5 mg INHALATION Q2H PRN PRN 05/12/17 Aerosols] Atorvastatin Calcium [Lipitor] 40 mg PO QHS 05/12/17 Budesonide/Formoterol 160/4.5 2 puff INHALATION BID 05/12/17 [Symbicort 160/4.5 Mcg Inhaler (SP)] Bupropion HCl [Bupropion HCl Sr] 150 mg PO BID 05/12/17 Buspirone HCl 10 mg PO TID 05/12/17 Digoxin 250 mcg PO DAILY 05/12/17 Diltiazem [Cardizem] 120 mg PO BID 05/12/17 Famotidine [Pepcid] 20 mg PO BID 05/12/17 Furosemide [Lasix] 40 mg PO BID 05/12/17 Glucagon,Human Recombinant 1 mg IM PRN PRN 05/12/17 [Glucagon Emergency Kit] Guaifenesin [Mucinex] 1,200 mg PO BID 05/12/17 Insulin Lispro [Humalog] 12 unit SQ TIDCM 05/12/17 Ipratropium/Albuterol Sulfate 3 ml INHALATION Q4H.RT 05/12/17 [Duoneb] Lisinopril [Prinivil] 5 mg PO DAILY 05/12/17 Propranolol HCl [Inderal (Beta 10 mg PO BID 05/12/17 Rubén)] Sennosides/Docusate Sodium 2 tab PO DAILY PRN PRN 05/12/17 [Senna-Docusate Sodium Tablet] Hydrocodone Bitart/Apap 5-325 1 tab PO Q6H PRN PRN 08/11/17 [[place] 5/325] Mag Hydrox/Al Hydrox/Simeth 30 ml PO Q6H PRN PRN 08/11/17 [Mylanta II] Polyethylene Glycol 3350 [Miralax] 17 gm PO DAILY 08/11/17 docusate sodium 100 mg capsule 100 mg PO QHS 09/01/17 gabapentin 100 mg capsule 100 mg PO TID cap 09/01/17 Spironolactone [Aldactone] 25 mg PO BID 11/01/17 Benzonatate [Tessalon Perle] 100 mg PO TID PRN PRN 11/02/17 Insulin Lispro [Humalog] See Protocol SQ TIDCM 11/02/17 Nitroglycerin 0.4 mg SL X1 11/02/17 Insulin Glargine,Hum.rec.anlog 60 unit SQ QHS #0 11/03/17 [Lantus Solostar] Rivaroxaban [Xarelto] 20 mg PO DAILY #0 11/03/17 Calcium Carbonate [Tums] 500 - 1,000 mg PO Q6H PRN PRN 11/20/17 acetaminophen 325 mg capsule 650 mg PO Q6H PRN cap 11/20/17 Surgical History: Surgical History (Last Reviewed 11/20/17 @ 11:22 by Yisel Forman) Cataract extraction status Z98.49 History of lumbar surgery Z98.890 History of tonsillectomy and adenoidectomy Z98.890 History of total hysterectomy Z90.710 Surgical History: hysterectomy, tonsillectomy, - - Lumbar surgery. 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 Sibling Family History: Family History (Last Reviewed 11/20/17 @ 11:22 by Yisel Forman) Sister Arthritis Diabetes Father Cancer Aunt Diabetes History Items: Asthma, COPD, Hypertension Review of Systems Constitutional: Denies: Chills, Fever, Weight Change HEENT: Denies: Head Aches, Sinus Congestion, Sinus Drainage Cardiovascular: Denies: Chest Pain, Palpitations Respiratory: Reports: Cough, Shortness of Breath, Shortness of breath at rest, Shortness of breath upon exertion, Wheezing. Denies: Sputum production Gastrointestinal: Reports: Diarrhea. Denies: Abdominal Pain, Nausea, Vomiting Genitourinary: Denies: Dysuria Musculoskeletal: Denies: Joint Pain, Joint Tenderness Skin: Denies: Rash, Wounds Neurological: Denies: Numbness, Tingling, Focal weakness Psychiatric: Denies: Anxiety, Depression, Homicidal Ideations, Suicidal Ideations Hematologic/ Lymphatic: Denies: Easy Bruising, Easy Bleeding VTE Information - Inpt Only VTE Present on Admission: No VTE Mechan Device Prophylaxis: SCD's VTE Pharm Prophylaxis ordered?: Yes - Physical Exam General: Alert, Oriented x3, Cooperative HEENT: Atraumatic, PERRLA, EOMI, Normocephalic Neck: Supple, No JVD, Negative Carotid Bruits Lungs: Diminished, Wheezes Cardiovascular: Regular rate, No murmurs Abdomen: Bowel Sounds Present, Soft, Non Tender Extremities: Capillary Refill Less than 3 Seconds, Edema - 1+ pitting edema bilateral lower extremities Skin: No rashes, No breakdown Musculoskeletal: No Tenderness to Palpation of Joints or Extremities Neurological: Cranial nerves II-XII grossly intact Psych/Mental Status: Normal Affect, Appropriate, Alert and oriented to time, place, person, mood and affect Vital Signs Temp Pulse Resp BP Pulse Ox 97.6 F L 72 20 H 102/60 94 11/20/17 11:52 11/20/17 14:31 11/20/17 14:31 11/20/17 14:31 11/20/17 14:31 Oxygen Flow Rate (L/min) 2 Oxygen Delivery Method Nasal Cannula Weight: 270 lb Body Mass Index (BMI) 51.0 Finger Stick Blood Glucose 364 Laboratory Tests Past 24 Hrs 11/20/17 11/20/17 11/20/17 12:28 12:28 12:28 WBC 14.4 H RBC 4.46 Hgb 11.8 L Hct 36.9 L MCV 82.7 MCH 26.5 L MCHC 32.0 RDW 17.4 H RDW Differential 52.7 H Plt Count 331 MPV 10.4 Immature Gran % (Auto) 0.200 Neut % (Auto) 67.2 Lymph % (Auto) 21.1 Ralls % (Auto) 8.1 Eos % (Auto) 3.1 Baso % (Auto) 0.3 Absolute Neuts (auto) 9.7 H Absolute Lymphs (auto) 3.03 Total Counted Not Reportable Sodium 132 L Potassium 4.9 Chloride 99 Carbon Dioxide 27.0 Anion Gap 6 BUN 23 H Creatinine 0.92 Estim Creat Clear Calc 47.84 Est GFR (MDRD) Af Amer 80 Est GFR (MDRD) Non-Af 66 BUN/Creatinine Ratio 25.0 H Glucose 238 H Calcium 9.1 Troponin I < 0.015 B-Natriuretic Peptide 19.3 Assessment/Plan All Active Problems (Last Reviewed 11/20/17 @ 11:22 by Yisel Forman) Abdominal pain (Acute) ABDULLAHI (obstructive sleep apnea) (Acute) Acute exacerbation of chronic obstructive pulmonary disease (COPD) (Acute) Syncope (Acute) Chest pain (Acute) Chest pain (Acute) COPD (chronic obstructive pulmonary disease) (Acute) Acute and chronic respiratory failure with hypoxia (Resolved) Acute bronchitis due to human metapneumovirus (Resolved) Atrial fibrillation with RVR (Resolved) COPD with acute exacerbation (Resolved) Gram-negative pneumonia (Resolved) Cardiomyopathy (Ruled-out) 1. Acute COPD exacerbation-hypoxic on presentation with 80% pulse ox improved with 2 L/min nasal cannula. Continue Solu-Medrol and aerosol therapy. Incentive spirometer. Patient does have leukocytosis but she is not appear to have any other indications of bacterial pathology. Chest x-ray is negative. No prior oxygen use at home. 2. Mild hyponatremia-this appears to be a chronic issue. 3. Chronic atrial fibrillation-on Xarelto, rate controlled, continue Cardizem, digoxin, propranolol 4. Type 2 diabetes with morbid obesity-continue insulin plus sliding scale, titrate to response. Dietitian consult. 5. Hypertension-stable 6. Hyperlipidemia-atorvastatin 7. GERD-Pepcid twice daily 8. Nicotine abuse-reportedly quit 2 months ago 9. Insomnia and anxiety-continue home meds DVT prophylaxis: On Xarelto DC planning: From assisted living, PT OT. This patient was seen by Brian Hinojosa PA-C under the supervision of Doctor Trev. <All Karimi - Last Filed: 11/20/17 15:10> Problem List (1) COPD (chronic obstructive pulmonary disease) Status: Acute Qualifiers: COPD type: COPD with acute exacerbation Qualified Code(s): J44.1 - Chronic obstructive pulmonary disease with (acute) exacerbation History of Present Illness The patient is a 62 year old F presents with a 4-5 days history of increasing shortness of breath. 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 In the ED, patient was hypoxic at 80%. Placed on oxygen and pulse ox improved. In the ER, she received Solumedrol and BDs. This is similiar to prior episodes of COPD exacerbation. Currently breathing better, but still short of breath after oxygen and treatment.[] Past Medical History Medical History: Medical History (Last Reviewed 11/20/17 @ 15:04 by All Karimi DO) Hypersomnia (Chronic) G47.10 Chest pain (Acute) R07.9 Anemia (Chronic) D64.9 Hypomagnesemia (Chronic) E83.42 HTN (hypertension) (Chronic) I10 Morbid obesity with BMI of 40.0-44.9, adult (Chronic) E66.01, Z68.41 COPD (chronic obstructive pulmonary disease) (Acute) J44.9 Chronic pain (Chronic) G89.29 Chronic atrial fibrillation (Chronic) I48.2 Chronic hypoxemic respiratory failure (Chronic) J96.11 non-compliant with oxygen Hyperlipemia (Chronic) E78.5 ECHO in June of 2017 showed a 75% EF Type 2 diabetes mellitus (Chronic) E11.9 uncontrolled GERD (gastroesophageal reflux disease) (Chronic) K21.9 Anxiety (Chronic) F41.9 Insomnia (Chronic) G47.00 Osteoporosis M81.0 Cardiomyopathy (Ruled-out) I42.9 EF in Oct 2015 45-50 Left ankle pain (Inactive) M25.572 Non-compliance (Inactive) Z91.19 withn follow up with pulmonary Allergies venom-honey bee [bee venom (honey bee)] Allergy (Verified 11/20/17 11:56) Swelling levofloxacin [From Levaquin] Adverse Reaction (Verified 11/20/17 11:56) Nausea oxycodone HCl [From Percocet] Adverse Reaction (Verified 11/20/17 11:56) Nausea Penicillins Adverse Reaction (Verified 11/20/17 11:56) Nausea/Vom/Diarrhea Surgical History: Surgical History (Last Reviewed 11/20/17 @ 15:05 by All Karimi DO) Cataract extraction status Z98.49 History of lumbar surgery Z98.890 History of tonsillectomy and adenoidectomy Z98.890 History of total hysterectomy Z90.710 Smoking Status: Former smoker Tobacco Use: Non-smoker Alcohol: None Drugs: None - *Family History Maternal Family History: Family History (Last Reviewed 11/20/17 @ 15:05 by All Karimi DO) Sister Arthritis Diabetes Father Cancer Aunt Diabetes Paternal Family History: Family History (Last Reviewed 11/20/17 @ 15:05 by All Karimi DO) Sister Arthritis Diabetes Father Cancer Aunt Diabetes Sibling Family History: Family History (Last Reviewed 11/20/17 @ 15:05 by All Karimi DO) Sister Arthritis Diabetes Father Cancer Aunt Diabetes Review of Systems Constitutional: Denies: Chills, Fever, Weight Change Eyes: Denies: Blurred vision, Double vision HEENT: Denies: Head Aches, Sinus Congestion, Sinus Drainage Cardiovascular: Denies: Chest Pain, Palpitations Respiratory: Reports: Cough, Shortness of Breath, Shortness of breath at rest, Shortness of breath upon exertion, Wheezing. Denies: Sputum production Gastrointestinal: Reports: Abdominal Pain, Diarrhea. Denies: Nausea, Vomiting Genitourinary: Denies: Dysuria Musculoskeletal: Denies: Joint Pain, Joint Tenderness Skin: Denies: Pruritis, Wounds Neurological: Denies: Focal weakness, Numbness Psychiatric: Denies: Anxiety, Depression, Homicidal Ideations, Suicidal Ideations Hematologic/ Lymphatic: Denies: Easy Bruising, Easy Bleeding VTE Information - Inpt Only VTE Present on Admission: No VTE Pharm Prophylaxis ordered?: Yes - Physical Exam General: Alert, Cooperative, - - Appears much older than stated age HEENT: Atraumatic, Normocephalic, - - Telangiectasias on her cheeks Oral: Moist Mucosa, No Gingival or Mucosal Lesions/ Ulcerations Neck: No Nodes, Thyroid Normal Size and Texture Lungs: Diminished, Wheezes Cardiovascular: Regular rate, Regular Rhythm, Normal S1, Normal S2, No murmurs Abdomen: Bowel Sounds Present, Non Tender Extremities: No Calf Tenderness, Edema Skin: - - Erythema with telangiectasias of both cheeks. Neurological: Motor Exam 5/5 strength throughout, Muscle tone normal Psych/Mental Status: Normal Affect, Appropriate Vital Signs Temp Pulse Resp BP Pulse Ox 36.4 C L 72 20 H 102/60 94 11/20/17 11:52 11/20/17 14:31 11/20/17 14:31 11/20/17 14:31 11/20/17 14:31 Oxygen Flow Rate (L/min) 2 Oxygen Delivery Method Nasal Cannula Weight: 122.47 kg Body Mass Index (BMI) 51.0 Finger Stick Blood Glucose 364 Laboratory Tests Past 24 Hrs 11/20/17 11/20/17 11/20/17 12:28 12:28 12:28 WBC 14.4 H RBC 4.46 Hgb 11.8 L Hct 36.9 L MCV 82.7 MCH 26.5 L MCHC 32.0 RDW 17.4 H RDW Differential 52.7 H Plt Count 331 MPV 10.4 Immature Gran % (Auto) 0.200 Neut % (Auto) 67.2 Lymph % (Auto) 21.1 Ralls % (Auto) 8.1 Eos % (Auto) 3.1 Baso % (Auto) 0.3 Absolute Neuts (auto) 9.7 H Absolute Lymphs (auto) 3.03 Total Counted Not Reportable Sodium 132 L Potassium 4.9 Chloride 99 Carbon Dioxide 27.0 Anion Gap 6 BUN 23 H Creatinine 0.92 Estim Creat Clear Calc 47.84 Est GFR (MDRD) Af Amer 80 Est GFR (MDRD) Non-Af 66 BUN/Creatinine Ratio 25.0 H Glucose 238 H Calcium 9.1 Troponin I < 0.015 B-Natriuretic Peptide 19.3 EKG reviewed and showed atrial fibrillation, rate controlled, no acute process Chest x-ray personally reviewed and showed hyperinflated airways flattening of the diaphragms. No pulmonary edema nor infiltrate. Assessment/Plan 1. Acute exacerbation of COPD Continue with bronchodilators and steroids Consider pulmonary consultation if no improvement 2. Acute hypoxic respiratory failure Secondary to above Wean oxygen as tolerated Check an amatory pulse ox prior to discharge 3. Abdominal pain Has been ongoing since admission per the patient Concern at that time was for ischemic colitis which is still a concern at this time. Follow-up with gastroenterology as outpatient 4. Right knee effusion Patient was to follow-up with Dr. Montenegro as outpatient last time but the patient has not at this point. Patient stated that she has not gotten around to make the appointment As mentioned previously, patient does require an arthrocentesis she will need to be off of her Xarelto for 48 hours before and No acute indication for orthopedics involvement at this time. No concern for septic arthritis 5. Chronic atrial fibrillation Stable Continue with Xarelto, Cardizem, digoxin and propranolol Code Visit Inpatient E&M: 44164 Init Hosp L3
--- NOTE | 2017-11-20 14:50 | NURSING ---
MED SURG JOPPERI COPD EXAC
--- NOTE | 2017-11-20 14:55 | HP.PCM_ITS ---
<Brian Hinojosa - Last Filed: 11/20/17 14:50> Problem List (1) Acute exacerbation of chronic obstructive pulmonary disease (COPD) Status: Acute (2) HTN (hypertension) Status: Chronic (3) Chronic atrial fibrillation Status: Chronic (4) Hyperlipemia Status: Chronic Comment: ECHO in June of 2017 showed a 75% EF (5) Type 2 diabetes mellitus Status: Chronic Comment: uncontrolled (6) GERD (gastroesophageal reflux disease) Status: Chronic (7) Morbid obesity with BMI of 50.0-59.9, adult Status: Chronic History of Present Illness Date of Admission: 11/20/17 Chief Complaint: SOB The patient is a 62 year old F past medical history of COPD, diabetes type 2, chronic atrial fibrillation, former heavy smoker, morbid obesity, hypertension, GERD, anxiety who 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 She lives in assisted living and reports that she started feeling more wheezy, coughing more, nonproductive, and has become severely short of breath. She did not look well at the office and was sent over by Dr. Mccormick. She has not rec ently been on steroids. She denies sick contacts. She does report a sore throat but denies sinus congestion, postnasal drip, fevers or chills. She denies smoking in the last 2 months. She did not use any oxygen at all normally. In the ER she was hypoxic on room air at 80%. She improved with 2 L of oxygen via nasal cannula. 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 [] Past Medical History Past Medical History (Chronic Problems): Chronic Problems (Last Reviewed 11/20/17 @ 11:22 by Yisel Forman) Morbid obesity with BMI of 50.0-59.9, adult (Chronic) Tobacco dependence due to cigarettes (Chronic) Non-compliance (Chronic) Microcytic anemia (Chronic) Hypersomnia (Chronic) Anemia (Chronic) Hypomagnesemia (Chronic) HTN (hypertension) (Chronic) Morbid obesity with BMI of 40.0-44.9, adult (Chronic) Chronic pain (Chronic) Chronic atrial fibrillation (Chronic) Chronic hypoxemic respiratory failure (Chronic) non-compliant with oxygen Hyperlipemia (Chronic) ECHO in June of 2017 showed a 75% EF Type 2 diabetes mellitus (Chronic) uncontrolled GERD (gastroesophageal reflux disease) (Chronic) Anxiety (Chronic) Insomnia (Chronic) Medical History: Medical History (Last Reviewed 11/20/17 @ 11:22 by Yisel Forman) Hypersomnia (Chronic) G47.10 Chest pain (Acute) R07.9 Anemia (Chronic) D64.9 Hypomagnesemia (Chronic) E83.42 HTN (hypertension) (Chronic) I10 Morbid obesity with BMI of 40.0-44.9, adult (Chronic) E66.01, Z68.41 COPD (chronic obstructive pulmonary disease) (Acute) J44.9 Chronic pain (Chronic) G89.29 Chronic atrial fibrillation (Chronic) I48.2 Chronic hypoxemic respiratory failure (Chronic) J96.11 non-compliant with oxygen Hyperlipemia (Chronic) E78.5 ECHO in June of 2017 showed a 75% EF Type 2 diabetes mellitus (Chronic) E11.9 uncontrolled GERD (gastroesophageal reflux disease) (Chronic) K21.9 Anxiety (Chronic) F41.9 Insomnia (Chronic) G47.00 Osteoporosis M81.0 Cardiomyopathy (Ruled-out) I42.9 EF in Oct 2015 45-50 Left ankle pain (Inactive) M25.572 Non-compliance (Inactive) Z91.19 withn follow up with pulmonary Allergies venom-honey bee [bee venom (honey bee)] Allergy (Verified 11/20/17 11:56) Swelling levofloxacin [From Levaquin] Adverse Reaction (Verified 11/20/17 11:56) Nausea oxycodone HCl [From Percocet] Adverse Reaction (Verified 11/20/17 11:56) Nausea Penicillins Adverse Reaction (Verified 11/20/17 11:56) Nausea/Vom/Diarrhea Home Medications: Ambulatory Orders Medication Instructions Recorded Albuterol Aerosols [Ventolin 2.5 mg INHALATION Q2H PRN PRN 05/12/17 Aerosols] Atorvastatin Calcium [Lipitor] 40 mg PO QHS 05/12/17 Budesonide/Formoterol 160/4.5 2 puff INHALATION BID 05/12/17 [Symbicort 160/4.5 Mcg Inhaler (SP)] Bupropion HCl [Bupropion HCl Sr] 150 mg PO BID 05/12/17 Buspirone HCl 10 mg PO TID 05/12/17 Digoxin 250 mcg PO DAILY 05/12/17 Diltiazem [Cardizem] 120 mg PO BID 05/12/17 Famotidine [Pepcid] 20 mg PO BID 05/12/17 Furosemide [Lasix] 40 mg PO BID 05/12/17 Glucagon,Human Recombinant 1 mg IM PRN PRN 05/12/17 [Glucagon Emergency Kit] Guaifenesin [Mucinex] 1,200 mg PO BID 05/12/17 Insulin Lispro [Humalog] 12 unit SQ TIDCM 05/12/17 Ipratropium/Albuterol Sulfate 3 ml INHALATION Q4H.RT 05/12/17 [Duoneb] Lisinopril [Prinivil] 5 mg PO DAILY 05/12/17 Propranolol HCl [Inderal (Beta 10 mg PO BID 05/12/17 Rubén)] Sennosides/Docusate Sodium 2 tab PO DAILY PRN PRN 05/12/17 [Senna-Docusate Sodium Tablet] Hydrocodone Bitart/Apap 5-325 1 tab PO Q6H PRN PRN 08/11/17 [[place] 5/325] Mag Hydrox/Al Hydrox/Simeth 30 ml PO Q6H PRN PRN 08/11/17 [Mylanta II] Polyethylene Glycol 3350 [Miralax] 17 gm PO DAILY 08/11/17 docusate sodium 100 mg capsule 100 mg PO QHS 09/01/17 gabapentin 100 mg capsule 100 mg PO TID cap 09/01/17 Spironolactone [Aldactone] 25 mg PO BID 11/01/17 Benzonatate [Tessalon Perle] 100 mg PO TID PRN PRN 11/02/17 Insulin Lispro [Humalog] See Protocol SQ TIDCM 11/02/17 Nitroglycerin 0.4 mg SL X1 11/02/17 Insulin Glargine,Hum.rec.anlog 60 unit SQ QHS #0 11/03/17 [Lantus Solostar] Rivaroxaban [Xarelto] 20 mg PO DAILY #0 11/03/17 Calcium Carbonate [Tums] 500 - 1,000 mg PO Q6H PRN PRN 11/20/17 acetaminophen 325 mg capsule 650 mg PO Q6H PRN cap 11/20/17 Surgical History: Surgical History (Last Reviewed 11/20/17 @ 11:22 by Yisel Forman) Cataract extraction status Z98.49 History of lumbar surgery Z98.890 History of tonsillectomy and adenoidectomy Z98.890 History of total hysterectomy Z90.710 Surgical History: hysterectomy, tonsillectomy, - - Lumbar surgery. Psychiatric History: Anxiety, Depression LEGAL DEPARTMENT MANAGER History: No pertinent LEGAL DEPARTMENT MANAGER history Smoking Status: Current every day smoker - *Family History Maternal Family History: Family History (Last Reviewed 11/20/17 @ 11:22 by Yisel Forman) Sister Arthritis Diabetes Father Cancer Aunt Diabetes History Items: - - She reports that she is unaware of what her mother's health history was like Paternal Family History: Family History (Last Reviewed 11/20/17 @ 11:22 by Yisel Forman) Sister Arthritis Diabetes Father Cancer Aunt Diabetes History Items: Cancer, - - father with throat cancer. Sibling Family History: Family History (Last Reviewed 11/20/17 @ 11:22 by Yisel Forman) Sister Arthritis Diabetes Father Cancer Aunt Diabetes History Items: Asthma, COPD, Hypertension Review of Systems Constitutional: Denies: Chills, Fever, Weight Change HEENT: Denies: Head Aches, Sinus Congestion, Sinus Drainage Cardiovascular: Denies: Chest Pain, Palpitations Respiratory: Reports: Cough, Shortness of Breath, Shortness of breath at rest, Shortness of breath upon exertion, Wheezing. Denies: Sputum production Gastrointestinal: Reports: Diarrhea. Denies: Abdominal Pain, Nausea, Vomiting Genitourinary: Denies: Dysuria Musculoskeletal: Denies: Joint Pain, Joint Tenderness Skin: Denies: Rash, Wounds Neurological: Denies: Numbness, Tingling, Focal weakness Psychiatric: Denies: Anxiety, Depression, Homicidal Ideations, Suicidal Ideations Hematologic/ Lymphatic: Denies: Easy Bruising, Easy Bleeding VTE Information - Inpt Only VTE Present on Admission: No VTE Mechan Device Prophylaxis: SCD's VTE Pharm Prophylaxis ordered?: Yes - Physical Exam General: Alert, Oriented x3, Cooperative HEENT: Atraumatic, PERRLA, EOMI, Normocephalic Neck: Supple, No JVD, Negative Carotid Bruits Lungs: Diminished, Wheezes Cardiovascular: Regular rate, No murmurs Abdomen: Bowel Sounds Present, Soft, Non Tender Extremities: Capillary Refill Less than 3 Seconds, Edema - 1+ pitting edema bilateral lower extremities Skin: No rashes, No breakdown Musculoskeletal: No Tenderness to Palpation of Joints or Extremities Neurological: Cranial nerves II-XII grossly intact Psych/Mental Status: Normal Affect, Appropriate, Alert and oriented to time, place, person, mood and affect Vital Signs Temp Pulse Resp BP Pulse Ox 97.6 F L 72 20 H 102/60 94 11/20/17 11:52 11/20/17 14:31 11/20/17 14:31 11/20/17 14:31 11/20/17 14:31 Oxygen Flow Rate (L/min) 2 Oxygen Delivery Method Nasal Cannula Weight: 270 lb Body Mass Index (BMI) 51.0 Finger Stick Blood Glucose 364 Laboratory Tests Past 24 Hrs 11/20/17 11/20/17 11/20/17 12:28 12:28 12:28 WBC 14.4 H RBC 4.46 Hgb 11.8 L Hct 36.9 L MCV 82.7 MCH 26.5 L MCHC 32.0 RDW 17.4 H RDW Differential 52.7 H Plt Count 331 MPV 10.4 Immature Gran % (Auto) 0.200 Neut % (Auto) 67.2 Lymph % (Auto) 21.1 [place] % (Auto) 8.1 Eos % (Auto) 3.1 Baso % (Auto) 0.3 Absolute Neuts (auto) 9.7 H Absolute Lymphs (auto) 3.03 Total Counted Not Reportable Sodium 132 L Potassium 4.9 Chloride 99 Carbon Dioxide 27.0 Anion Gap 6 BUN 23 H Creatinine 0.92 Estim Creat Clear Calc 47.84 Est GFR (MDRD) Af Amer 80 Est GFR (MDRD) Non-Af 66 BUN/Creatinine Ratio 25.0 H Glucose 238 H Calcium 9.1 Troponin I < 0.015 B-Natriuretic Peptide 19.3 Assessment/Plan All Active Problems (Last Reviewed 11/20/17 @ 11:22 by Yisel Forman) Abdominal pain (Acute) ABDULLAHI (obstructive sleep apnea) (Acute) Acute exacerbation of chronic obstructive pulmonary disease (COPD) (Acute) Syncope (Acute) Chest pain (Acute) Chest pain (Acute) COPD (chronic obstructive pulmonary disease) (Acute) Acute and chronic respiratory failure with hypoxia (Resolved) Acute bronchitis due to human metapneumovirus (Resolved) Atrial fibrillation with RVR (Resolved) COPD with acute exacerbation (Resolved) Gram-negative pneumonia (Resolved) Cardiomyopathy (Ruled-out) 1. Acute COPD exacerbation-hypoxic on presentation with 80% pulse ox improved with 2 L/min nasal cannula. Continue Solu-Medrol and aerosol therapy. Incentive spirometer. Patient does have leukocytosis but she is not appear to have any other indications of bacterial pathology. Chest x-ray is negative. No prior oxygen use at home. 2. Mild hyponatremia-this appears to be a chronic issue. 3. Chronic atrial fibrillation-on Xarelto, rate controlled, continue Cardizem, digoxin, propranolol 4. Type 2 diabetes with morbid obesity-continue insulin plus sliding scale, titrate to response. Dietitian consult. 5. Hypertension-stable 6. Hyperlipidemia-atorvastatin 7. GERD-Pepcid twice daily 8. Nicotine abuse-reportedly quit 2 months ago 9. Insomnia and anxiety-continue home meds DVT prophylaxis: On Xarelto DC planning: From assisted living, PT OT. This patient was seen by Brian Hinojosa PA-C under the supervision of Doctor Trev. <All Karimi - Last Filed: 11/20/17 15:10> Problem List (1) COPD (chronic obstructive pulmonary disease) Status: Acute Qualifiers: COPD type: COPD with acute exacerbation Qualified Code(s): J44.1 - Chronic obstructive pulmonary disease with (acute) exacerbation History of Present Illness The patient is a 62 year old F presents with a 4-5 days history of increasing shortness of breath. 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 In the ED, patient was hypoxic at 80%. Placed on oxygen and pulse ox improved. In the ER, she received Solumedrol and BDs. This is similiar to prior episodes of COPD exacerbation. Currently breathing better, but still short of breath after oxygen and treatment.[] Past Medical History Medical History: Medical History (Last Reviewed 11/20/17 @ 15:04 by All Karimi DO) Hypersomnia (Chronic) G47.10 Chest pain (Acute) R07.9 Anemia (Chronic) D64.9 Hypomagnesemia (Chronic) E83.42 HTN (hypertension) (Chronic) I10 Morbid obesity with BMI of 40.0-44.9, adult (Chronic) E66.01, Z68.41 COPD (chronic obstructive pulmonary disease) (Acute) J44.9 Chronic pain (Chronic) G89.29 Chronic atrial fibrillation (Chronic) I48.2 Chronic hypoxemic respiratory failure (Chronic) J96.11 non-compliant with oxygen Hyperlipemia (Chronic) E78.5 ECHO in June of 2017 showed a 75% EF Type 2 diabetes mellitus (Chronic) E11.9 uncontrolled GERD (gastroesophageal reflux disease) (Chronic) K21.9 Anxiety (Chronic) F41.9 Insomnia (Chronic) G47.00 Osteoporosis M81.0 Cardiomyopathy (Ruled-out) I42.9 EF in Oct 2015 45-50 Left ankle pain (Inactive) M25.572 Non-compliance (Inactive) Z91.19 withn follow up with pulmonary Allergies venom-honey bee [bee venom (honey bee)] Allergy (Verified 11/20/17 11:56) Swelling levofloxacin [From Levaquin] Adverse Reaction (Verified 11/20/17 11:56) Nausea oxycodone HCl [From Percocet] Adverse Reaction (Verified 11/20/17 11:56) Nausea Penicillins Adverse Reaction (Verified 11/20/17 11:56) Nausea/Vom/Diarrhea Surgical History: Surgical History (Last Reviewed 11/20/17 @ 15:05 by All Karimi DO) Cataract extraction status Z98.49 History of lumbar surgery Z98.890 History of tonsillectomy and adenoidectomy Z98.890 History of total hysterectomy Z90.710 Smoking Status: Former smoker Tobacco Use: Non-smoker Alcohol: None Drugs: None - *Family History Maternal Family History: Family History (Last Reviewed 11/20/17 @ 15:05 by All Karimi DO) Sister Arthritis Diabetes Father Cancer Aunt Diabetes Paternal Family History: Family History (Last Reviewed 11/20/17 @ 15:05 by All Karimi DO) Sister Arthritis Diabetes Father Cancer Aunt Diabetes Sibling Family History: Family History (Last Reviewed 11/20/17 @ 15:05 by All Karimi DO) Sister Arthritis Diabetes Father Cancer Aunt Diabetes Review of Systems Constitutional: Denies: Chills, Fever, Weight Change Eyes: Denies: Blurred vision, Double vision HEENT: Denies: Head Aches, Sinus Congestion, Sinus Drainage Cardiovascular: Denies: Chest Pain, Palpitations Respiratory: Reports: Cough, Shortness of Breath, Shortness of breath at rest, Shortness of breath upon exertion, Wheezing. Denies: Sputum production Gastrointestinal: Reports: Abdominal Pain, Diarrhea. Denies: Nausea, Vomiting Genitourinary: Denies: Dysuria Musculoskeletal: Denies: Joint Pain, Joint Tenderness Skin: Denies: Pruritis, Wounds Neurological: Denies: Focal weakness, Numbness Psychiatric: Denies: Anxiety, Depression, Homicidal Ideations, Suicidal Ideations Hematologic/ Lymphatic: Denies: Easy Bruising, Easy Bleeding VTE Information - Inpt Only VTE Present on Admission: No VTE Pharm Prophylaxis ordered?: Yes - Physical Exam General: Alert, Cooperative, - - Appears much older than stated age HEENT: Atraumatic, Normocephalic, - - Telangiectasias on her cheeks Oral: Moist Mucosa, No Gingival or Mucosal Lesions/ Ulcerations Neck: No Nodes, Thyroid Normal Size and Texture Lungs: Diminished, Wheezes Cardiovascular: Regular rate, Regular Rhythm, Normal S1, Normal S2, No murmurs Abdomen: Bowel Sounds Present, Non Tender Extremities: No Calf Tenderness, Edema Skin: - - Erythema with telangiectasias of both cheeks. Neurological: Motor Exam 5/5 strength throughout, Muscle tone normal Psych/Mental Status: Normal Affect, Appropriate Vital Signs Temp Pulse Resp BP Pulse Ox 36.4 C L 72 20 H 102/60 94 11/20/17 11:52 11/20/17 14:31 11/20/17 14:31 11/20/17 14:31 11/20/17 14:31 Oxygen Flow Rate (L/min) 2 Oxygen Delivery Method Nasal Cannula Weight: 122.47 kg Body Mass Index (BMI) 51.0 Finger Stick Blood Glucose 364 Laboratory Tests Past 24 Hrs 11/20/17 11/20/17 11/20/17 12:28 12:28 12:28 WBC 14.4 H RBC 4.46 Hgb 11.8 L Hct 36.9 L MCV 82.7 MCH 26.5 L MCHC 32.0 RDW 17.4 H RDW Differential 52.7 H Plt Count 331 MPV 10.4 Immature Gran % (Auto) 0.200 Neut % (Auto) 67.2 Lymph % (Auto) 21.1 [place] % (Auto) 8.1 Eos % (Auto) 3.1 Baso % (Auto) 0.3 Absolute Neuts (auto) 9.7 H Absolute Lymphs (auto) 3.03 Total Counted Not Reportable Sodium 132 L Potassium 4.9 Chloride 99 Carbon Dioxide 27.0 Anion Gap 6 BUN 23 H Creatinine 0.92 Estim Creat Clear Calc 47.84 Est GFR (MDRD) Af Amer 80 Est GFR (MDRD) Non-Af 66 BUN/Creatinine Ratio 25.0 H Glucose 238 H Calcium 9.1 Troponin I < 0.015 B-Natriuretic Peptide 19.3 EKG reviewed and showed atrial fibrillation, rate controlled, no acute process Chest x-ray personally reviewed and showed hyperinflated airways flattening of the diaphragms. No pulmonary edema nor infiltrate. Assessment/Plan 1. Acute exacerbation of COPD * Continue with bronchodilators and steroids * Consider pulmonary consultation if no improvement 2. Acute hypoxic respiratory failure * Secondary to above * Wean oxygen as tolerated * Check an amatory pulse ox prior to discharge 3. Abdominal pain * Has been ongoing since admission per the patient * Concern at that time was for ischemic colitis which is still a concern at this time. * Follow-up with gastroenterology as outpatient 4. Right knee effusion * Patient was to follow-up with Dr. Montenegro as outpatient last time but the patient has not at this point. Patient stated that she has not gotten around to make the appointment * As mentioned previously, patient does require an arthrocentesis she will need to be off of her Xarelto for 48 hours before and * No acute indication for orthopedics involvement at this time. No concern for septic arthritis 5. Chronic atrial fibrillation * Stable * Continue with Xarelto, Cardizem, digoxin and propranolol * Code Visit Inpatient E&M: 04774 Init Hosp L3
[2017-11-20 16:26] LABS: Bedside Glucose 284 mg/dL (70-110)
[2017-11-20] MEDS: Insulin Lispro 100 UNIT/ML INSULN.PEN 12 UNIT SC (17:13)
[2017-11-20] MEDS: Insulin Lispro 100 UNIT/ML INSULN.PEN SQ (17:13)
[2017-11-20] MEDS: Gabapentin 100 MG Capsule PO (17:14)
[2017-11-20] MEDS: Furosemide 40 MG Tablet PO (17:15)
[2017-11-20] MEDS: Spironolactone 25 MG Tablet PO (17:15)
[2017-11-20] MEDS: Rivaroxaban 20 MG Tablet PO (17:16)
[2017-11-20] MEDS: guaiFENesin 1,200 MG Tablet 1200 MG PO (17:17)
[2017-11-20] MEDS: HYDROcodone Bitartrate/Apap 5/325 Tablet PO ×2 (17:20→23:50)
[2017-11-20] MEDS: Budesonide Respules 0.5 MG/2 ML AMPUL.NEB. INHALATION (19:14)
[2017-11-20] MEDS: dilTIAZem CD 120 MG Capsule PO (22:03)
[2017-11-20] MEDS: Docusate Sodium 100 MG Capsule PO (22:03)
[2017-11-20] MEDS: Atorvastatin Calcium 40 MG Tablet PO (22:03)
[2017-11-20] MEDS: Propranolol 10 MG Tablet PO (22:03)
[2017-11-20] MEDS: busPIRone 5 MG Tablet 10 MG PO (22:03)
[2017-11-20] MEDS: Famotidine 20 MG Tablet PO (22:03)
[2017-11-20 22:20] LABS: Bedside Glucose 427 mg/dL (70-110)
[2017-11-20] MEDS: buPROPion (SR) 150 MG Tablet.SA PO (22:52)
[2017-11-20] MEDS: Insulin Lispro 100 UNIT/ML INSULN.PEN 8 UNIT SC (22:53)
[2017-11-21] VITALS (13 sets, daily range): BP systolic 100–128; BP diastolic 47–66; PULSE 69–85; RESP 18–24; TEMP 36.4–36.9; O2SAT 92–97
[2017-11-21 03:06] LABS: Bedside Glucose 329 mg/dL (70-110)
[2017-11-21] MEDS: Ipratropium/Albuterol Sulfate 3 ML AMPUL.NEB INHALATION ×6 (03:34→23:06)
[2017-11-21] MEDS: Budesonide Respules 0.5 MG/2 ML AMPUL.NEB. INHALATION ×2 (06:36→19:11)
--- NOTE | 2017-11-21 06:44 | PCM.PN.HOSP ---
Subjective: Patient notes ongoing dyspnea, wheezing with minimal improvement since initial presentation. She states that resting she does feel somewhat improved but with any exertional attempts she has worsened dyspnea and wheezing. She notes that she has been off oxygen for several months and was weaned per her physicians. Discussed current presentation and suspected likely need for oxygen when she does not go home. Respiratory viral panel requested and obtained this morning which is currently pending. Encourage patient if able to give sputum sample for she notes she has been having difficult to bring anything up. Patient denies fevers, chills, nausea, emesis, abdominal pain, chest pain. Objective: Physical Examination: General: awake, alert, oriented x 3 and cooperative, seated upright in bed, audible wheezing. Skin: normal color, turgor, no icterus, cyanosis. HEENT: AT/NC, EOMI, PERRLA, mildly dry MM. Lungs: Severe diffusely diminished BS, > bases, increased mild RR, decreased effort, inspiratory and expiratory soft distant wheezing. Heart: Irregular; no gallop, rub audible. Abdomen: soft, obese, NTTP, ND, normal BS. Extremities: no cyanosis, clubbing, BL LE ankle edema. Neurological: patient awake, alert, oriented x 3; cognitive function intact; pupils equally reactive to light and accomodation; cranial nerves II-XII grossly normal, moving all 4 extremities, no focal deficits, strength severely globally decreased secondary to acute presentation. Psychiatric: affect appears fatigued, no acute evidence of depressive or anxiety feelings. Vitals/I&O's: Vital Signs Temp Pulse Resp BP Pulse Ox 97.5 F L 80 18 116/49 L 93 11/21/17 02:30 11/21/17 03:34 11/21/17 03:34 11/21/17 02:30 11/21/17 02:30 Oxygen Flow Rate (L/min) 2 Oxygen Delivery Method Nasal Cannula Weight: 205 lb 14.588 oz Body Mass Index (BMI) 38.9 Finger Stick Blood Glucose 364 Intake and Output for Last 24 Hours 11/19/17 11/20/17 11/21/17 23:59 23:59 23:59 Intake Total 500 / 500 Output Total 800 / 800 Balance -300 / -300 Laboratory Results 11/20/17 12:28: WBC 14.4 H, RBC 4.46, Hgb 11.8 L, Hct 36.9 L, MCV 82.7, MCH 26.5 L, MCHC 32.0, RDW 17.4 H, RDW Differential 52.7 H, Plt Count 331, MPV 10.4, Immature Gran % (Auto) 0.200, Neut % (Auto) 67.2, Lymph % (Auto) 21.1, [place] % (Auto) 8.1, Eos % (Auto) 3.1, Baso % (Auto) 0.3, Absolute Neuts (auto) 9.7 H, Absolute Lymphs (auto) 3.03, Total Counted Not Reportable 11/20/17 12:28: Sodium 132 L, Potassium 4.9, Chloride 99, Carbon Dioxide 27.0, Anion Gap 6, BUN 23 H, Creatinine 0.92, Estim Creat Clear Calc 47.84, Est GFR (MDRD) Af Amer 80, Est GFR (MDRD) Non-Af 66, BUN/Creatinine Ratio 25.0 H, Glucose 238 H, Calcium 9.1, Troponin I < 0.015 11/20/17 12:28: B-Natriuretic Peptide 19.3 11/20/17 16:15: POC Glucose 284 H 11/20/17 22:08: POC Glucose 427 H 11/21/17 03:03: POC Glucose 329 H Current Medications Acetaminophen (Tylenol) 650 mg PO Q6H PRN PRN PRN Reason: Mild Pain (scale 0-3)/T>100.7 Hydrocodone Bitart/Acetaminophen ([place] 5mg-325mg) 1 tablet PO Q6H PRN PRN PRN Reason: PAIN Last Admin: 11/20/17 23:50 Dose: 1 tablet Al Hydroxide/Mg Hydroxide (Mylanta Ii) 30 ml PO Q6H PRN PRN PRN Reason: DYSPEPSIA/INDIGESTION Albuterol Sulfate (Ventolin Aerosols) 2.5 mg INHALATION Q2H PRN PRN PRN Reason: COUGH/SOB Albuterol/Ipratropium (Duoneb) 3 ml INHALATION Q4H.RT MARYANN Last Admin: 11/21/17 06:36 Dose: 3 ml Atorvastatin Calcium (Lipitor) 40 mg PO QHS MARYANN Last Admin: 11/20/17 22:03 Dose: 40 mg Benzonatate (Tessalon Perle) 100 mg PO TID PRN PRN PRN Reason: COUGH Budesonide (Pulmicort Aerosol) 0.5 mg INHALATION Q12H.RT [facility] Last Admin: 11/21/17 06:36 Dose: 0.5 mg Bupropion HCl (Wellbutrin Sr (150mg Tablets)) 150 mg PO BID [facility] Last Admin: 11/20/17 22:52 Dose: 150 mg Buspirone HCl (Buspar) 10 mg PO TID [facility] Last Admin: 11/20/17 22:03 Dose: 10 mg Calcium Carbonate (Tums) 500 - 1,000 mg PO Q6H PRN PRN PRN Reason: HEART BURN Dextrose (D50w Syringe) 0 gm IV X1 PRN; Protocol PRN Reason: Hypoglycemia Digoxin (Lanoxin) 250 mcg PO DAILY [facility] Diltiazem HCl (Cardizem Cd) 120 mg PO BID [facility] Last Admin: 11/20/17 22:03 Dose: 120 mg Docusate Sodium (Colace) 100 mg PO QHS [facility] Last Admin: 11/20/17 22:03 Dose: 100 mg Famotidine (Pepcid) 20 mg PO BID [facility] Last Admin: 11/20/17 22:03 Dose: 20 mg Furosemide (Lasix) 40 mg PO BIDLX [facility] Last Admin: 11/20/17 17:15 Dose: 40 mg Gabapentin (Neurontin) 100 mg PO TIDCM [facility] Last Admin: 11/20/17 17:14 Dose: 100 mg Glucagon () 1 mg IM .X1 PRN PRN Reason: Hypoglycemia Guaifenesin (Mucinex) 1,200 mg PO BID [facility] Last Admin: 11/20/17 17:17 Dose: 1,200 mg Insulin Glargine (Lantus (Bkc)) 60 units SC QHS [facility] Last Admin: 11/20/17 22:03 Dose: 60 unit Insulin Human Lispro (Humalog Kwikpen (Bkc)) 12 unit SC TIDCM [facility] Last Admin: 11/20/17 17:13 Dose: 12 u Insulin Human Lispro (Humalog Kwikpen (Bkc)) 0 unit SC 4X/DAYCM [facility]; Protocol Lisinopril (Zestril) 5 mg PO DAILY [facility] Magnesium Hydroxide (Milk Of Magnesia) 30 ml PO DAILY PRN PRN PRN Reason: Constipation Methylprednisolone (Solu-Medrol) 40 mg IV Q8 [facility] Last Admin: 10/05/18 22:03 Dose: 40 mg Ondansetron HCl (Zofran) 4 mg IV Q8H PRN PRN PRN Reason: Nausea Polyethylene Glycol (Miralax) 17 gm PO DAILY [facility] Propranolol HCl (Inderal) 10 mg PO BID [facility] Last Admin: 11/20/17 22:03 Dose: 10 mg Rivaroxaban (Xarelto) 20 mg PO DAILY@1700 [facility] Last Admin: 11/20/17 17:16 Dose: 20 mg Senna/Docusate Sodium (Senokot-S, Estefania-Colace) 2 tablet PO DAILY PRN PRN PRN Reason: Constipation Sodium Chloride () 5 - 30 ml IV UD PRN PRN Reason: SALINE FLUSH Spironolactone (Aldactone) 25 mg PO BIDLX [facility] Last Admin: 11/20/17 17:15 Dose: 25 mg Medical Necessity - Tobacco Use Smoking Status: Former smoker Tobacco Use: Cigarettes Assessment/Plan All Active Problems (Last Reviewed 11/20/17 @ 15:04 by All Karimi DO) Abdominal pain (Acute) ABDULLAHI (obstructive sleep apnea) (Acute) Acute exacerbation of chronic obstructive pulmonary disease (COPD) (Acute) Syncope (Acute) Chest pain (Acute) Chest pain (Acute) COPD (chronic obstructive pulmonary disease) (Acute) Acute and chronic respiratory failure with hypoxia (Resolved) Acute bronchitis due to human metapneumovirus (Resolved) Atrial fibrillation with RVR (Resolved) COPD with acute exacerbation (Resolved) Gram-negative pneumonia (Resolved) Cardiomyopathy (Ruled-out) The patient is a 62 y/o F w/ PMHx: Obesity, History of Tobacco use prior, Anxiety and Depression, Chronic Hypoxic Respiratory Failure (2-3L NC baseline) w/ Chronic COPD, HTN, HLD, Diabetes mellitus type II, History of SVT, Permanent atrial fibrillation, CAD, Cardiomyopathy Unclear Type who presents to the [facility] on 11/21/17 as direct admission with history of progressively worsening dyspnea, non-productive cough, wheezing without improvement with aerosols x 4-5 days, notably concerning appearing when evaluated at her Cardiology office and referred to [facility] for evaluation and treatment for COPD exacerbation. (1) Chronic Hypoxic Respiratory Failure with Acute on Chronic COPD exacerbation: Will maintain on home oxygen supplementation, continue ATC duonebs, PRN albuterol, IV solumedrol, defer abx given no marked CBC WBC elevation and afebrile, HOB, IS parameters w/ pending sputum cultures and respiratory viral panel. (2) Recurrent Syncopal Events: Several admissions for syncopal events, 07/11/17 ECHO w/ hyperdynamic LV systolic function, EF 75%, mildly enlarged LA, mild to moderate mitral annular calcification, trivial MVI, trivial TBI, mild AVS, small pericardial effusion, no evidence of cardiac tamponade. Stress testing 05/13/17 with normal pharmacological myocardial perfusion stress testing. Patient was supposed to wear an event monitor recently but this did not occur. Follow-up with Cardiology as noted 11/20/17 resulting in transition for COPD admissionl. (3) Cardiomyopathy Unclear Type: Prior ECHO w/ EF 45-50%, recent 07/11/17 ECHO w/ hyperdynamic LV systolic function, EF 75%, mildly enlarged LA, mild to moderate mitral annular calcification, trivial MVI, trivial TBI, mild AVS, small pericardial effusion, no evidence of cardiac tamponade. Stress testing 05/13/17 with normal pharmacological myocardial perfusion stress testing. Admission BNP normal level, CXR with chronic changes. (4) CAD: Will continue home regimen asa, statin, BB. Stress testing 05/13/17 with normal pharmacological myocardial perfusion stress testing. (5) Permanent atrial fibrillation: Continue home regimen digoxin, propranolol, cardizem, xarelto regimen. (6) Diabetes mellitus type II: Elevated BS upon presentation and given current steroid IV usage will add AM lantus and continue home insulin lantus q HS and short acting regimen, ADA diet, accu checks w/ ISS. (7) Hypertension: Continue home regimen including propranolol, lisinopril, lasix, cardizem. PRN hydralazine. (8) Hyperlipidemia: Continue home statin regimen. (9) Anxiety and Depression: Continue home regimen buspar, wellbutrin. (10) History of Tobacco Abuse: Encouraged continued cessation, off x 2 months now but this has been intermittent. (11) Obesity: Weight loss and lifestyle changes encouraged. (12) Chronic Hyponatremia: Admission Na 132, similar to prior, trend as needed. (13) DVT prophylaxis: SCDs, xarelto. Code Visit Inpatient E&M: 04236 Subs Hosp L2
[2017-11-21] MEDS: busPIRone 5 MG Tablet 10 MG PO ×3 (06:50→22:20)
[2017-11-21] MEDS: 0.9% NaCl Peripheral Flush Adult/Peds IV ×2 (06:53→14:03)
--- NOTE | 2017-11-21 06:55 | PN_ITS ---
Subjective: Patient notes ongoing dyspnea, wheezing with minimal improvement since initial presentation. She states that resting she does feel somewhat improved but with any exertional attempts she has worsened dyspnea and wheezing. She notes that she has been off oxygen for several months and was weaned per her physicians. Discussed current presentation and suspected likely need for oxygen when she does not go home. Respiratory viral panel requested and obtained this morning which is currently pending. Encourage patient if able to give sputum sample for she notes she has been having difficult to bring anything up. Patient denies fevers, chills, nausea, emesis, abdominal pain, chest pain. Objective: Physical Examination: General: awake, alert, oriented x 3 and cooperative, seated upright in bed, audible wheezing. Skin: normal color, turgor, no icterus, cyanosis. HEENT: AT/NC, EOMI, PERRLA, mildly dry MM. Lungs: Severe diffusely diminished BS, > bases, increased mild RR, decreased effort, inspiratory and expiratory soft distant wheezing. Heart: Irregular; no gallop, rub audible. Abdomen: soft, obese, NTTP, ND, normal BS. Extremities: no cyanosis, clubbing, BL LE ankle edema. Neurological: patient awake, alert, oriented x 3; cognitive function intact; pupils equally reactive to light and accomodation; cranial nerves II-XII grossly normal, moving all 4 extremities, no focal deficits, strength severely globally decreased secondary to acute presentation. Psychiatric: affect appears fatigued, no acute evidence of depressive or anxiety feelings. Vitals/I&O's: Vital Signs Temp Pulse Resp BP Pulse Ox 97.5 F L 80 18 116/49 L 93 11/21/17 02:30 11/21/17 03:34 11/21/17 03:34 11/21/17 02:30 11/21/17 02:30 Oxygen Flow Rate (L/min) 2 Oxygen Delivery Method Nasal Cannula Weight: 205 lb 14.588 oz Body Mass Index (BMI) 38.9 Finger Stick Blood Glucose 364 Intake and Output for Last 24 Hours 11/19/17 11/20/17 11/21/17 23:59 23:59 23:59 Intake Total 500 / 500 Output Total 800 / 800 Balance -300 / -300 Laboratory Results 11/20/17 12:28: WBC 14.4 H, RBC 4.46, Hgb 11.8 L, Hct 36.9 L, MCV 82.7, MCH 26.5 L, MCHC 32.0, RDW 17.4 H, RDW Differential 52.7 H, Plt Count 331, MPV 10.4, Immature Gran % (Auto) 0.200, Neut % (Auto) 67.2, Lymph % (Auto) 21.1, [place] % (Auto) 8.1, Eos % (Auto) 3.1, Baso % (Auto) 0.3, Absolute Neuts (auto) 9.7 H, Absolute Lymphs (auto) 3.03, Total Counted Not Reportable 11/20/17 12:28: Sodium 132 L, Potassium 4.9, Chloride 99, Carbon Dioxide 27.0, Anion Gap 6, BUN 23 H, Creatinine 0.92, Estim Creat Clear Calc 47.84, Est GFR (MDRD) Af Amer 80, Est GFR (MDRD) Non-Af 66, BUN/Creatinine Ratio 25.0 H, Glucose 238 H, Calcium 9.1, Troponin I < 0.015 11/20/17 12:28: B-Natriuretic Peptide 19.3 11/20/17 16:15: POC Glucose 284 H 11/20/17 22:08: POC Glucose 427 H 11/21/17 03:03: POC Glucose 329 H Current Medications Acetaminophen (Tylenol) 650 mg PO Q6H PRN PRN PRN Reason: Mild Pain (scale 0-3)/T>100.7 Hydrocodone Bitart/Acetaminophen ([place] 5mg-325mg) 1 tablet PO Q6H PRN PRN PRN Reason: PAIN Last Admin: 11/20/17 23:50 Dose: 1 tablet Al Hydroxide/Mg Hydroxide (Mylanta Ii) 30 ml PO Q6H PRN PRN PRN Reason: DYSPEPSIA/INDIGESTION Albuterol Sulfate (Ventolin Aerosols) 2.5 mg INHALATION Q2H PRN PRN PRN Reason: COUGH/SOB Albuterol/Ipratropium (Duoneb) 3 ml INHALATION Q4H.RT MARYANN Last Admin: 11/21/17 06:36 Dose: 3 ml Atorvastatin Calcium (Lipitor) 40 mg PO QHS MARYANN Last Admin: 11/20/17 22:03 Dose: 40 mg Benzonatate (Tessalon Perle) 100 mg PO TID PRN PRN PRN Reason: COUGH Budesonide (Pulmicort Aerosol) 0.5 mg INHALATION Q12H.RT [facility] Last Admin: 11/21/17 06:36 Dose: 0.5 mg Bupropion HCl (Wellbutrin Sr (150mg Tablets)) 150 mg PO BID [facility] Last Admin: 11/20/17 22:52 Dose: 150 mg Buspirone HCl (Buspar) 10 mg PO TID [facility] Last Admin: 11/20/17 22:03 Dose: 10 mg Calcium Carbonate (Tums) 500 - 1,000 mg PO Q6H PRN PRN PRN Reason: HEART BURN Dextrose (D50w Syringe) 0 gm IV X1 PRN; Protocol PRN Reason: Hypoglycemia Digoxin (Lanoxin) 250 mcg PO DAILY [facility] Diltiazem HCl (Cardizem Cd) 120 mg PO BID [facility] Last Admin: 11/20/17 22:03 Dose: 120 mg Docusate Sodium (Colace) 100 mg PO QHS [facility] Last Admin: 11/20/17 22:03 Dose: 100 mg Famotidine (Pepcid) 20 mg PO BID [facility] Last Admin: 11/20/17 22:03 Dose: 20 mg Furosemide (Lasix) 40 mg PO BIDLX [facility] Last Admin: 11/20/17 17:15 Dose: 40 mg Gabapentin (Neurontin) 100 mg PO TIDCM [facility] Last Admin: 11/20/17 17:14 Dose: 100 mg Glucagon () 1 mg IM .X1 PRN PRN Reason: Hypoglycemia Guaifenesin (Mucinex) 1,200 mg PO BID [facility] Last Admin: 11/20/17 17:17 Dose: 1,200 mg Insulin Glargine (Lantus (Bkc)) 60 units SC QHS [facility] Last Admin: 11/20/17 22:03 Dose: 60 unit Insulin Human Lispro (Humalog Kwikpen (Bkc)) 12 unit SC TIDCM [facility] Last Admin: 11/20/17 17:13 Dose: 12 u Insulin Human Lispro (Humalog Kwikpen (Bkc)) 0 unit SC 4X/DAYCM [facility]; Protocol Lisinopril (Zestril) 5 mg PO DAILY [facility] Magnesium Hydroxide (Milk Of Magnesia) 30 ml PO DAILY PRN PRN PRN Reason: Constipation Methylprednisolone (Solu-Medrol) 40 mg IV Q8 [facility] Last Admin: 10/05/18 22:03 Dose: 40 mg Ondansetron HCl (Zofran) 4 mg IV Q8H PRN PRN PRN Reason: Nausea Polyethylene Glycol (Miralax) 17 gm PO DAILY [facility] Propranolol HCl (Inderal) 10 mg PO BID [facility] Last Admin: 11/20/17 22:03 Dose: 10 mg Rivaroxaban (Xarelto) 20 mg PO DAILY@1700 [facility] Last Admin: 11/20/17 17:16 Dose: 20 mg Senna/Docusate Sodium (Senokot-S, Estefania-Colace) 2 tablet PO DAILY PRN PRN PRN Reason: Constipation Sodium Chloride () 5 - 30 ml IV UD PRN PRN Reason: SALINE FLUSH Spironolactone (Aldactone) 25 mg PO BIDLX [facility] Last Admin: 11/20/17 17:15 Dose: 25 mg Medical Necessity - Tobacco Use Smoking Status: Former smoker Tobacco Use: Cigarettes Assessment/Plan All Active Problems (Last Reviewed 11/20/17 @ 15:04 by All Karimi DO) Abdominal pain (Acute) ABDULLAHI (obstructive sleep apnea) (Acute) Acute exacerbation of chronic obstructive pulmonary disease (COPD) (Acute) Syncope (Acute) Chest pain (Acute) Chest pain (Acute) COPD (chronic obstructive pulmonary disease) (Acute) Acute and chronic respiratory failure with hypoxia (Resolved) Acute bronchitis due to human metapneumovirus (Resolved) Atrial fibrillation with RVR (Resolved) COPD with acute exacerbation (Resolved) Gram-negative pneumonia (Resolved) Cardiomyopathy (Ruled-out) The patient is a 62 y/o F w/ PMHx: Obesity, History of Tobacco use prior, Anxiety and Depression, Chronic Hypoxic Respiratory Failure (2-3L NC baseline) w/ Chronic COPD, HTN, HLD, Diabetes mellitus type II, History of SVT, Permanent atrial fibrillation, CAD, Cardiomyopathy Unclear Type who presents to the [facility] on 11/21/17 as direct admission with history of progressively worsening dyspnea, non-productive cough, wheezing without improvement with aerosols x 4-5 days, notably concerning appearing when evaluated at her Cardiology office and referred to [facility] for evaluation and treatment for COPD exacerbation. (1) Chronic Hypoxic Respiratory Failure with Acute on Chronic COPD exacerbation: Will maintain on home oxygen supplementation, continue ATC duonebs, PRN albuterol, IV solumedrol, defer abx given no marked CBC WBC elevation and afebrile, HOB, IS parameters w/ pending sputum cultures and respiratory viral panel. (2) Recurrent Syncopal Events: Several admissions for syncopal events, 07/11/17 ECHO w/ hyperdynamic LV systolic function, EF 75%, mildly enlarged LA, mild to moderate mitral annular calcification, trivial MVI, trivial TBI, mild AVS, small pericardial effusion, no evidence of cardiac tamponade. Stress testing 05/13/17 with normal pharmacological myocardial perfusion stress testing. Patient was supposed to wear an event monitor recently but this did not occur. Follow-up with Cardiology as noted 11/20/17 resulting in transition for COPD admissionl. (3) Cardiomyopathy Unclear Type: Prior ECHO w/ EF 45-50%, recent 07/11/17 ECHO w/ hyperdynamic LV systolic function, EF 75%, mildly enlarged LA, mild to moderate mitral annular calcification, trivial MVI, trivial TBI, mild AVS, small pericardial effusion, no evidence of cardiac tamponade. Stress testing 05/13/17 with normal pharmacological myocardial perfusion stress testing. Admission BNP normal level, CXR with chronic changes. (4) CAD: Will continue home regimen asa, statin, BB. Stress testing 05/13/17 with normal pharmacological myocardial perfusion stress testing. (5) Permanent atrial fibrillation: Continue home regimen digoxin, propranolol, cardizem, xarelto regimen. (6) Diabetes mellitus type II: Elevated BS upon presentation and given current steroid IV usage will add AM lantus and continue home insulin lantus q HS and short acting regimen, ADA diet, accu checks w/ ISS. (7) Hypertension: Continue home regimen including propranolol, lisinopril, lasix, cardizem. PRN hydralazine. (8) Hyperlipidemia: Continue home statin regimen. (9) Anxiety and Depression: Continue home regimen buspar, wellbutrin. (10) History of Tobacco Abuse: Encouraged continued cessation, off x 2 months now but this has been intermittent. (11) Obesity: Weight loss and lifestyle changes encouraged. (12) Chronic Hyponatremia: Admission Na 132, similar to prior, trend as needed. (13) DVT prophylaxis: SCDs, xarelto. Code Visit Inpatient E&M: 57058 Subs Hosp L2
[2017-11-21 07:05] LABS: Bedside Glucose 315 mg/dL (70-110)
[2017-11-21 08:06] LABS: Absolute Lymphocyte Count 1.64 X10^3/ul (0.83-4.51); Absolute Neutrophil Count 11.3 X10^3/uL (2.0-7.7); Basophil# 0.01 X10^3/uL; Basophil% 0.1 % (0-1); Hematocrit 34.6 % (37-47); Hemoglobin 11.3 g/dl (12.0-15.0); Lymphocyte # 1.64 X10^3/ul (4.0); Lymphocyte % 12.5 % (19-41); Mean Corp Hgb Conc 32.7 g/gl (32-36); Mean Corpuscular Hgb 26.9 pg (27.0-32.0); Mean Corpuscular Volume 82.4 fL (81-99); Mean Platelet Vol. 11.2 fl (6.2-12.0); Monocyte# 0.11 X10^3/uL; Monocyte% 0.8 % (0-10); Neutrophil # 11.28 X10^3/uL (2.7-7.7); Neutrophil % 86.3 % (47-70); Platelet Count 301 K/mm3 (150-450); RBC Distribution Width SD 51.4 fl (35.1-43.9); White Blood Count 13.1 K/mm3 (4.4-11.0)
[2017-11-21 08:16] LABS: Anion Gap 11 (5-15); BUN 22 mg/dL (7-18); Calcium,Total 9.1 mg/dL (8.5-10.1); Chloride 97 mmol/L (98-107); EST Glomerular Filtration Rate 60 mL/min (>60); Est Glom Filt Rate - Afr Amer 72 mL/min (>60); Estimated Creatinine Clearance 44.02 ml/min; Glucose 319 mg/dL (74-106); Potassium 5.1 mmol/L (3.5-5.1); Sodium Level 132 mmol/L (136-145)
[2017-11-21] MEDS: Gabapentin 100 MG Capsule PO ×3 (08:20→17:42)
[2017-11-21] MEDS: Insulin Lispro 100 UNIT/ML INSULN.PEN 12 UNIT SC ×3 (08:20→17:41)
[2017-11-21] MEDS: Insulin Lispro 100 UNIT/ML INSULN.PEN SC ×4 (08:21→22:24)
[2017-11-21 08:27] LABS: POSITIVE COUNT NO; POSITIVE DIFFERENTIAL NO; POSITIVE MORPHOLOGY NO
--- NOTE | 2017-11-21 08:41 | CASEMGMT ---
RN CM Note PCP: [facility] Prescription coverage: yes Living Arrangements: Assisted Living Social Work Consult: yes DME: may need home oxygen, states has nebulizer. Intro role of CM to patient and discussed possible need for Home O2. Pt is agreeable to [facility] for Oxygen supplier. Will need O2 testing prior to dc. Green sheet, instructions, script and Facesheet on front of chart. Mark MENON RN ACM
--- NOTE | 2017-11-21 09:37 | CASEMGMT ---
Social Work Note Pt is being listed as being from [facility]. SW in to confirm with pt discharge plans. SW introduced self and role at [facility]. Pt is alert and orientated x3. Pt confirms that she is from [facility] and the plan is for pt to return there at discharge. Pt denied additional needs or concerns at this time. Green sheet on chart. Plan: Return to [facility] when medically cleared Madeline Dominguez [employer], APPR[employer]ISER
[2017-11-21] MEDS: Acetaminophen 325 MG Tablet 650 MG PO (10:32)
[2017-11-21] MEDS: dilTIAZem CD 120 MG Capsule PO ×2 (10:33→22:21)
[2017-11-21] MEDS: Famotidine 20 MG Tablet PO ×2 (10:33→22:20)
[2017-11-21] MEDS: Digoxin 250 MCG Tablet PO (10:33)
[2017-11-21] MEDS: Spironolactone 25 MG Tablet PO ×2 (10:33→17:43)
[2017-11-21] MEDS: Furosemide 40 MG Tablet PO ×2 (10:33→17:54)
[2017-11-21] MEDS: Propranolol 10 MG Tablet PO ×2 (10:34→22:20)
[2017-11-21] MEDS: guaiFENesin 1,200 MG Tablet 1200 MG PO ×2 (10:35→22:21)
[2017-11-21] MEDS: Polyethylene Glycol 3350 17 GM PACKET PO (10:35)
[2017-11-21] MEDS: buPROPion (SR) 150 MG Tablet.SA PO ×2 (10:36→22:20)
[2017-11-21] MEDS: Lisinopril 5 MG Tablet PO (10:36)
[2017-11-21 11:35] LABS: Bedside Glucose 402 mg/dL (70-110)
[2017-11-21 16:30] LABS: Bedside Glucose 329 mg/dL (70-110)
[2017-11-21] MEDS: Rivaroxaban 20 MG Tablet PO (17:43)
[2017-11-21] MEDS: HYDROcodone Bitartrate/Apap 5/325 Tablet PO (17:47)
--- NOTE | 2017-11-21 19:59 | NURSING ---
Lab notified to draw mag level.
[2017-11-21 21:16] LABS: Magnesium 1.8 mg/dL (1.6-2.6)
[2017-11-21] MEDS: Atorvastatin Calcium 40 MG Tablet PO (22:21)
[2017-11-21] MEDS: Docusate Sodium 100 MG Capsule PO (22:26)
[2017-11-21 23:36] LABS: Bedside Glucose 422 mg/dL (70-110)
[2017-11-22] VITALS (19 sets, daily range): BP systolic 90–119; BP diastolic 39–60; PULSE 64–92; RESP 16–24; TEMP 36.4–36.9; O2SAT 91–96
[2017-11-22] MEDS: HYDROcodone Bitartrate/Apap 5/325 Tablet PO ×3 (00:06→18:27)
[2017-11-22] MEDS: Acetaminophen 325 MG Tablet 650 MG PO ×3 (04:18→23:01)
[2017-11-22] MEDS: 0.9% NaCl Peripheral Flush Adult/Peds IV ×2 (05:33→14:07)
[2017-11-22] MEDS: busPIRone 5 MG Tablet 10 MG PO ×3 (05:34→22:54)
[2017-11-22] MEDS: Budesonide Respules 0.5 MG/2 ML AMPUL.NEB. INHALATION ×2 (06:33→17:53)
[2017-11-22] MEDS: Ipratropium/Albuterol Sulfate 3 ML AMPUL.NEB INHALATION ×5 (06:33→22:27)
[2017-11-22 06:44] LABS: Absolute Lymphocyte Count 1.28 X10^3/ul (0.83-4.51); Absolute Neutrophil Count 12.6 X10^3/uL (2.0-7.7); Hematocrit 32.8 % (37-47); Hemoglobin 10.8 g/dl (12.0-15.0); Lymphocyte # 1.28 X10^3/ul (4.0); Mean Corp Hgb Conc 32.9 g/gl (32-36); Mean Corpuscular Hgb 26.9 pg (27.0-32.0); Mean Corpuscular Volume 81.8 fL (81-99); Mean Platelet Vol. 11.3 fl (6.2-12.0); Monocyte# 0.29 X10^3/uL; Neutrophil # 12.61 X10^3/uL (2.7-7.7); Neutrophil % 88.6 % (47-70); Platelet Count 283 K/mm3 (150-450); RBC Distribution Width CV 17.1 % (11.6-14.6); RBC Distribution Width SD 50.5 fl (35.1-43.9); Red Blood Count 4.01 M/mm3 (4.2-5.4); White Blood Count 14.2 K/mm3 (4.4-11.0)
--- NOTE | 2017-11-22 06:44 | PN_ITS ---
Subjective: Patient notes ongoing dyspnea especially with exertion with ongoing wheezing. Per discussion with nursing staff from overnight does have episodes of arrhythmia with exertion with magnesium checked and supplemented. Evaluation of patient and discussion with improvement of air movement however ongoing wheezing with decision to continue IV Solu-Medrol and increase patient's insulin regimen coverage given ongoing hyperglycemia secondary to steroid usage. Patient states that it has been several months since she is seen pulmonary medicine and if continues to require current interventions will consider pulmonary consultation tomorrow as not currently available today. Patient denies fevers, chills, nausea, emesis, abdominal pain, chest pain. Objective: Physical Examination: General: awake, alert, oriented x 3 and cooperative, seated upright in bedside chair, ongoing audible wheezing. Skin: normal color, turgor, no icterus, cyanosis. HEENT: AT/NC, EOMI, PERRLA, improved MMM. Lungs: Improved air movement, especially bases, improved effort, ongoing inspiratory and expiratory wheezing, more prominent. Heart: Irregular; no gallop, rub audible. Abdomen: soft, obese, NTTP, ND, normal BS. Extremities: no cyanosis, clubbing, BL LE ankle edema decreased. Neurological: patient awake, alert, oriented x 3; cognitive function intact; pupils equally reactive to light and accomodation; cranial nerves II-XII grossly normal, moving all 4 extremities, no focal deficits, strength continues to remain severely globally decreased secondary to acute presentation. Psychiatric: affect appears improved, less fatigued, no acute evidence of depressive or anxiety feelings. Vitals/I&O's: Vital Signs Temp Pulse Resp BP Pulse Ox 97.6 F L 64 16 92/44 L 94 11/22/17 05:37 11/22/17 05:37 11/22/17 05:37 11/22/17 05:37 11/22/17 05:37 Oxygen Flow Rate (L/min) 2 Oxygen Delivery Method Nasal Cannula Weight: 205 lb 14.588 oz Body Mass Index (BMI) 38.9 Finger Stick Blood Glucose 364 Intake and Output for Last 24 Hours 11/20/17 11/21/17 11/22/17 23:59 23:59 23:59 Intake Total 2180 / 2180 340 / 340 Output Total 1300 / 1300 1200 / 1200 Balance 880 / 880 -860 / -860 Microbiology Past 72 Hours 11/21/17 07:18 Mucosa - Nasopharyngeal Respiratory Panel (PCR) - Preliminary Laboratory Results 11/21/17 06:46: POC Glucose 315 H 11/21/17 07:15: WBC 13.1 H, RBC 4.20, Hgb 11.3 L, Hct 34.6 L, MCV 82.4, MCH 26.9 L, MCHC 32.7, RDW 17.0 H, RDW Differential 51.4 H, Plt Count 301, MPV 11.2, Immature Gran % (Auto) 0.300, Neut % (Auto) 86.3 H, Lymph % (Auto) 12.5 L, [place] % (Auto) 0.8, Eos % (Auto) 0.0, Baso % (Auto) 0.1, Absolute Neuts (auto) 11.3 H, Absolute Lymphs (auto) 1.64, Total Counted Not Reportable 11/21/17 07:15: Sodium 132 L, Potassium 5.1, Chloride 97 L, Carbon Dioxide 24.0, Anion Gap 11, BUN 22 H, Creatinine 1.00, Estim Creat Clear Calc 44.02, Est GFR (MDRD) Af Amer 72, Est GFR (MDRD) Non-Af 60, BUN/Creatinine Ratio 22.0 H, Glucose 319 H, Calcium 9.1 11/21/17 11:25: POC Glucose 402 H 11/21/17 16:26: POC Glucose 329 H 11/21/17 20:30: Magnesium 1.8 11/21/17 22:17: POC Glucose 422 H 11/22/17 05:35: WBC Pending, RBC Pending, Hgb Pending, Hct Pending, MCV Pending, MCH Pending, MCHC Pending, RDW Pending, RDW Differential Pending, Plt Count Pending, Neut % (Auto) Pending, Absolute Neuts (auto) Pending, Total Counted Pending 11/22/17 05:35: Sodium Pending, Potassium Pending, Chloride Pending, Carbon Dioxide Pending, Anion Gap Pending, BUN Pending, Creatinine Pending, Est GFR (MDRD) Af Amer Pending, Est GFR (MDRD) Non-Af Pending, BUN/Creatinine Ratio Pending, Glucose Pending, Calcium Pending Current Medications Acetaminophen (Tylenol) 650 mg PO Q6H PRN PRN PRN Reason: Mild Pain (scale 0-3)/T>100.7 Last Admin: 11/22/17 04:18 Dose: 650 mg Hydrocodone Bitart/Acetaminophen ([place] 5mg-325mg) 1 tablet PO Q6H PRN PRN PRN Reason: PAIN Last Admin: 11/22/17 06:38 Dose: 1 tablet Al Hydroxide/Mg Hydroxide (Mylanta Ii) 30 ml PO Q6H PRN PRN PRN Reason: DYSPEPSIA/INDIGESTION Albuterol Sulfate (Ventolin Aerosols) 2.5 mg INHALATION Q2H PRN PRN PRN Reason: COUGH/SOB Albuterol/Ipratropium (Duoneb) 3 ml INHALATION Q4H.RT [facility] Last Admin: 11/22/17 06:33 Dose: 3 ml Atorvastatin Calcium (Lipitor) 40 mg PO QHS [facility] Last Admin: 11/21/17 22:21 Dose: 40 mg Benzonatate (Tessalon Perle) 100 mg PO TID PRN PRN PRN Reason: COUGH Budesonide (Pulmicort Aerosol) 0.5 mg INHALATION Q12H.RT [facility] Last Admin: 11/22/17 06:33 Dose: 0.5 mg Bupropion HCl (Wellbutrin Sr (150mg Tablets)) 150 mg PO BID [facility] Last Admin: 11/21/17 22:20 Dose: 150 mg Buspirone HCl (Buspar) 10 mg PO TID [facility] Last Admin: 11/22/17 05:34 Dose: 10 mg Calcium Carbonate (Tums) 500 - 1,000 mg PO Q6H PRN PRN PRN Reason: HEART BURN Dextrose (D50w Syringe) 0 gm IV X1 PRN; Protocol PRN Reason: Hypoglycemia Digoxin (Lanoxin) 250 mcg PO DAILY [facility] Last Admin: 11/21/17 10:33 Dose: 250 mcg Diltiazem HCl (Cardizem Cd) 120 mg PO BID [facility] Last Admin: 11/21/17 22:21 Dose: 120 mg Docusate Sodium (Colace) 100 mg PO QHS [facility] Last Admin: 11/21/17 22:26 Dose: 100 mg Famotidine (Pepcid) 20 mg PO BID [facility] Last Admin: 11/21/17 22:20 Dose: 20 mg Furosemide (Lasix) 40 mg PO BIDLX [facility] Last Admin: 11/21/17 17:54 Dose: 40 mg Gabapentin (Neurontin) 100 mg PO TIDCM [facility] Last Admin: 11/21/17 17:42 Dose: 100 mg Glucagon () 1 mg IM .X1 PRN PRN Reason: Hypoglycemia Guaifenesin (Mucinex) 1,200 mg PO BID [facility] Last Admin: 11/21/17 22:21 Dose: 1,200 mg Insulin Glargine (Lantus (Bkc)) 60 units SC QHS [facility] Last Admin: 11/21/17 22:21 Dose: 60 unit Insulin Glargine (Lantus (Bkc)) 20 units SC DAILY [facility] Last Admin: 11/21/17 10:34 Dose: 20 u Insulin Human Lispro (Humalog Kwikpen (Bkc)) 12 unit SC TIDCM [facility] Last Admin: 11/21/17 17:41 Dose: 12 u Insulin Human Lispro (Humalog Kwikpen (Bkc)) 0 unit SC 4X/DAYCM [facility]; Protocol Last Admin: 11/21/17 22:24 Dose: 11 u Lisinopril (Zestril) 5 mg PO DAILY [facility] Last Admin: 11/21/17 10:36 Dose: 5 mg Magnesium Hydroxide (Milk Of Magnesia) 30 ml PO DAILY PRN PRN PRN Reason: Constipation Methylprednisolone (Solu-Medrol) 40 mg IV Q8 [facility] Last Admin: 11/22/17 05:33 Dose: 40 mg Ondansetron HCl (Zofran) 4 mg IV Q8H PRN PRN PRN Reason: Nausea Polyethylene Glycol (Miralax) 17 gm PO DAILY [facility] Last Admin: 11/21/17 10:35 Dose: 17 gm Propranolol HCl (Inderal) 10 mg PO BID [facility] Last Admin: 11/21/17 22:20 Dose: 10 mg Rivaroxaban (Xarelto) 20 mg PO DAILY@1700 [facility] Last Admin: 11/21/17 17:43 Dose: 20 mg Senna/Docusate Sodium (Senokot-S, Estefania-Colace) 2 tablet PO DAILY PRN PRN PRN Reason: Constipation Sodium Chloride () 5 - 30 ml IV UD PRN PRN Reason: SALINE FLUSH Last Admin: 11/22/17 05:33 Dose: 10 ml Spironolactone (Aldactone) 25 mg PO BIDLX [facility] Last Admin: 11/21/17 17:43 Dose: 25 mg Medical Necessity - Tobacco Use Smoking Status: Former smoker Tobacco Use: Cigarettes Assessment/Plan All Active Problems (Last Reviewed 11/20/17 @ 15:04 by All Karimi DO) Abdominal pain (Acute) ABDULLAHI (obstructive sleep apnea) (Acute) Acute exacerbation of chronic obstructive pulmonary disease (COPD) (Acute) Syncope (Acute) Chest pain (Acute) Chest pain (Acute) COPD (chronic obstructive pulmonary disease) (Acute) Acute and chronic respiratory failure with hypoxia (Resolved) Acute bronchitis due to human metapneumovirus (Resolved) Atrial fibrillation with RVR (Resolved) COPD with acute exacerbation (Resolved) Gram-negative pneumonia (Resolved) Cardiomyopathy (Ruled-out) The patient is a 62 y/o F w/ PMHx: Obesity, History of Tobacco use prior, Anxiety and Depression, Chronic Hypoxic Respiratory Failure (2-3L NC baseline) w/ Chronic COPD, HTN, HLD, Diabetes mellitus type II, History of SVT, Permanent atrial fibrillation, CAD, Cardiomyopathy Unclear Type who presents to the [facility] on 11/21/17 as direct admission with history of progressively worsening dyspnea, non-productive cough, wheezing without improvement with aerosols x 4-5 days, notably concerning appearing when evaluated at her Cardiology office and referred to [facility] for evaluation and treatment for COPD exacerbation. (1) Chronic Hypoxic Respiratory Failure with Acute on Chronic COPD exacerbation: Admitted to [facility], noted that she had been weaned off oxygen chronically over the last year, will maintain on oxygen with wean to RA as tolerated but expect likely need for oxygen supplementation upon discharge. Will continue ATC duonebs, PRN albuterol, IV solumedrol with transition to prednisone possible 11/23/17 AM given severity of examination, defer abx given no marked CBC WBC elevation and afebrile, HOB, IS parameters w/ requested sputum cultures and preliminary respiratory viral panel with no organisms. If worsens or does not markedly improve will consult Pulmonary medicine. (2) Recurrent Syncopal Events: Several admissions for syncopal events, 07/11/17 ECHO w/ hyperdynamic LV systolic function, EF 75%, mildly enlarged LA, mild to moderate mitral annular calcification, trivial MVI, trivial TBI, mild AVS, small pericardial effusion, no evidence of cardiac tamponade. Stress testing 05/13/17 with normal pharmacological myocardial perfusion stress testing. Patient was supposed to wear an event monitor recently but this did not occur. Follow-up with Cardiology as noted 11/20/17 resulting in transition for COPD admission. (3) Cardiomyopathy Unclear Type: Prior ECHO w/ EF 45-50%, recent 07/11/17 ECHO w/ hyperdynamic LV systolic function, EF 75%, mildly enlarged LA, mild to moderate mitral annular calcification, trivial MVI, trivial TBI, mild AVS, small pericardial effusion, no evidence of cardiac tamponade. Stress testing 05/13/17 with normal pharmacological myocardial perfusion stress testing. Admission BNP normal level, CXR with chronic changes. (4) CAD: Will continue home regimen asa, statin, BB. Stress testing 05/13/17 with normal pharmacological myocardial perfusion stress testing. (5) Permanent atrial fibrillation: Continue home regimen digoxin, propranolol, cardizem, xarelto regimen. (6) Diabetes mellitus type II: Elevated BS upon presentation and given current steroid IV usage will add AM lantus and continue home insulin lantus q HS and short acting regimen, ADA diet, accu checks w/ ISS. (7) Hypertension: Continue home regimen including propranolol, lisinopril, lasix, cardizem. PRN hydralazine. (8) Hyperlipidemia: Continue home statin regimen. (9) Anxiety and Depression: Continue home regimen buspar, wellbutrin. (10) History of Tobacco Abuse: Encouraged continued cessation, off x 2 months now but this has been intermittent. (11) Obesity: Weight loss and lifestyle changes encouraged. (12) Chronic Hyponatremia: Admission Na 132, similar to prior, trend as needed. (13) Asymptomatic VT: Short burst, primarily with exertion, mag supplemented, continue to monitor, on BB. (14) DVT prophylaxis: SCDs, xarelto. Code Visit Inpatient E&M: 46993 Subs Hosp L2
[2017-11-22 06:57] LABS: POSITIVE COUNT NO; POSITIVE DIFFERENTIAL NO; POSITIVE MORPHOLOGY NO
[2017-11-22 07:01] LABS: Anion Gap 12 (5-15); BUN 30 mg/dL (7-18); BUN/Creat Ratio 30.5 RATIO (10-20); Calcium,Total 8.9 mg/dL (8.5-10.1); Chloride 96 mmol/L (98-107); Creatinine, Serum 0.98 mg/dL (0.55-1.02); EST Glomerular Filtration Rate 61 mL/min (>60); Est Glom Filt Rate - Afr Amer 74 mL/min (>60); Estimated Creatinine Clearance 44.91 ml/min; Glucose 400 mg/dL (74-106); Potassium 4.8 mmol/L (3.5-5.1); Sodium Level 131 mmol/L (136-145)
[2017-11-22] MEDS: Insulin Lispro 100 UNIT/ML INSULN.PEN 12 UNIT SC (07:58)
[2017-11-22] MEDS: Insulin Lispro 100 UNIT/ML INSULN.PEN SC ×3 (07:59→16:53)
[2017-11-22] MEDS: Gabapentin 100 MG Capsule PO ×3 (08:01→16:54)
[2017-11-22 08:06] LABS: Bedside Glucose 424 mg/dL (70-110)
[2017-11-22] MEDS: dilTIAZem CD 120 MG Capsule PO ×2 (10:00→22:54)
[2017-11-22] MEDS: guaiFENesin 1,200 MG Tablet 1200 MG PO ×2 (10:00→22:55)
[2017-11-22] MEDS: Digoxin 250 MCG Tablet PO (10:00)
[2017-11-22] MEDS: Polyethylene Glycol 3350 17 GM PACKET PO (10:00)
[2017-11-22] MEDS: Propranolol 10 MG Tablet PO ×2 (10:01→22:54)
[2017-11-22] MEDS: Famotidine 20 MG Tablet PO ×2 (10:02→22:55)
[2017-11-22] MEDS: buPROPion (SR) 150 MG Tablet.SA PO ×2 (10:02→22:56)
[2017-11-22 11:41] LABS: Bedside Glucose 432 mg/dL (70-110)
[2017-11-22] MEDS: Insulin Lispro 100 UNIT/ML INSULN.PEN 15 UNIT SC ×2 (12:31→16:53)
[2017-11-22 16:15] LABS: Bedside Glucose 311 mg/dL (70-110)
[2017-11-22] MEDS: Rivaroxaban 20 MG Tablet PO (16:54)
[2017-11-22] MEDS: Benzonatate 100 MG Capsule PO (18:30)
--- NOTE | 2017-11-22 22:32 | NURSING ---
Lab called for stat backup for one touch of 460.
[2017-11-22 22:36] LABS: Bedside Glucose 460 mg/dL (70-110)
[2017-11-22] MEDS: Docusate Sodium 100 MG Capsule PO (22:54)
[2017-11-22] MEDS: Atorvastatin Calcium 40 MG Tablet PO (22:55)
[2017-11-22 23:08] LABS: Glucose 455 mg/dL (74-106)
[2017-11-22] MEDS: Insulin Lispro 100 UNIT/ML INSULN.PEN 18 UNIT SC (23:32)
[2017-11-23] VITALS (19 sets, daily range): BP systolic 96–121; BP diastolic 43–65; PULSE 62–88; RESP 16–24; TEMP 36.3–36.8; O2SAT 90–95
[2017-11-23] MEDS: Ipratropium/Albuterol Sulfate 3 ML AMPUL.NEB INHALATION ×5 (02:27→22:01)
[2017-11-23 05:41] LABS: Absolute Lymphocyte Count 1.34 X10^3/ul (0.83-4.51); Absolute Neutrophil Count 11.4 X10^3/uL (2.0-7.7); Basophil# 0.01 X10^3/uL; Basophil% 0.1 % (0-1); Hematocrit 34.4 % (37-47); Hemoglobin 11.3 g/dl (12.0-15.0); Lymphocyte # 1.34 X10^3/ul (4.0); Lymphocyte % 10.1 % (19-41); Mean Corp Hgb Conc 32.8 g/gl (32-36); Mean Corpuscular Hgb 26.6 pg (27.0-32.0); Mean Corpuscular Volume 80.9 fL (81-99); Mean Platelet Vol. 11.3 fl (6.2-12.0); Monocyte# 0.43 X10^3/uL; Monocyte% 3.2 % (0-10); Neutrophil # 11.43 X10^3/uL (2.7-7.7); Neutrophil % 86.1 % (47-70); Platelet Count 300 K/mm3 (150-450); RBC Distribution Width CV 16.7 % (11.6-14.6); Red Blood Count 4.25 M/mm3 (4.2-5.4); White Blood Count 13.3 K/mm3 (4.4-11.0)
[2017-11-23 05:49] LABS: POSITIVE COUNT NO; POSITIVE DIFFERENTIAL NO; POSITIVE MORPHOLOGY NO
[2017-11-23 05:57] LABS: Anion Gap 10 (5-15); BUN 29 mg/dL (7-18); BUN/Creat Ratio 36.4 RATIO (10-20); Calcium,Total 9.1 mg/dL (8.5-10.1); Chloride 100 mmol/L (98-107); EST Glomerular Filtration Rate 78 mL/min (>60); Est Glom Filt Rate - Afr Amer 94 mL/min (>60); Estimated Creatinine Clearance 55.02 ml/min; Glucose 239 mg/dL (74-106); Potassium 4.9 mmol/L (3.5-5.1); Sodium Level 135 mmol/L (136-145)
[2017-11-23] MEDS: busPIRone 5 MG Tablet 10 MG PO ×3 (06:31→22:25)
[2017-11-23] MEDS: HYDROcodone Bitartrate/Apap 5/325 Tablet PO ×3 (06:36→22:25)
[2017-11-23] MEDS: 0.9% NaCl Peripheral Flush Adult/Peds IV (06:42)
[2017-11-23 06:56] LABS: Bedside Glucose 256 mg/dL (70-110)
[2017-11-23] MEDS: Budesonide Respules 0.5 MG/2 ML AMPUL.NEB. INHALATION ×2 (07:03→19:01)
[2017-11-23] MEDS: Insulin Lispro 100 UNIT/ML INSULN.PEN 15 UNIT SC ×3 (08:16→16:59)
[2017-11-23] MEDS: Insulin Lispro 100 UNIT/ML INSULN.PEN SC ×3 (08:16→22:28)
--- NOTE | 2017-11-23 09:04 | PN_ITS ---
Subjective: Patient overnight with continued complaints of dyspnea, worse with exertion and continued wheezing however she does have improved air movement throughout. Discussed case with rib knitter with whom she has seen prior and from prior reviews she has been on oxygen therapy which she states physician had weaned her off of however per pulmonary office she should still be on oxygen. Transition off possibly secondary to alf facility but unclear. Patient for discussion with pulmonary very noncompliant with any therapies and regimens. Patient denies fevers, chills, nausea, emesis, abdominal pain, chest pain. Objective: Physical Examination: General: awake, alert, oriented x 3 and cooperative, seated upright in bedside chair, notes still ongoing wheezing, still dyspneic with exertion. Skin: normal color, turgor, no icterus, cyanosis. HEENT: AT/NC, EOMI, PERRLA, MMM. Lungs: Improved air movement, especially bases, improved effort, still ongoing inspiratory and expiratory wheezing, no rhonchi or rales. Heart: Irregular; no gallop, rub audible. Abdomen: soft, obese, NTTP, ND, normal BS. Extremities: no cyanosis, clubbing, BL LE ankle edema decreased. Neurological: patient awake, alert, oriented x 3; cognitive function intact; pupils equally reactive to light and accomodation; cranial nerves II-XII grossly normal, moving all 4 extremities, no focal deficits, strength continues to remain severely globally decreased secondary to acute presentation. Psychiatric: affect appears improved, no acute evidence of depressive or anxiety feelings. Vitals/I&O's: Vital Signs Temp Pulse Resp BP Pulse Ox 97.5 F L 79 16 115/65 93 11/23/17 07:31 11/23/17 07:31 11/23/17 07:31 11/23/17 07:31 11/23/17 07:31 Oxygen Flow Rate (L/min) 1 Oxygen Delivery Method Room Air Weight: 205 lb 14.588 oz Body Mass Index (BMI) 38.9 Finger Stick Blood Glucose 364 Intake and Output for Last 24 Hours 11/21/17 11/22/17 11/23/17 23:59 23:59 23:59 Intake Total 2180 / 2180 1890 / 1890 1000 / 1000 Output Total 1300 / 1300 1750 / 1750 1895 / 1895 Balance 880 / 880 140 / 140 -895 / -895 Microbiology Past 72 Hours 11/21/17 07:18 Mucosa - Nasopharyngeal Respiratory Panel (PCR) - Final Laboratory Results 11/22/17 10:43: Glucose 455 H* 11/22/17 11:31: POC Glucose 432 H 11/22/17 16:12: POC Glucose 311 H 11/22/17 22:28: POC Glucose 460 H* 11/23/17 05:00: WBC 13.3 H, RBC 4.25, Hgb 11.3 L, Hct 34.4 L, MCV 80.9 L, MCH 26.6 L, MCHC 32.8, RDW 16.7 H, RDW Differential 49.0 H, Plt Count 300, MPV 11.3, Immature Gran % (Auto) 0.500, Neut % (Auto) 86.1 H, Lymph % (Auto) 10.1 L, [place] % (Auto) 3.2, Eos % (Auto) 0.0, Baso % (Auto) 0.1, Absolute Neuts (auto) 11.4 H, Absolute Lymphs (auto) 1.34, Total Counted Not Reportable 11/23/17 05:00: Sodium 135 L, Potassium 4.9, Chloride 100, Carbon Dioxide 25.0, Anion Gap 10, BUN 29 H, Creatinine 0.80, Estim Creat Clear Calc 55.02, Est GFR (MDRD) Af Amer 94, Est GFR (MDRD) Non-Af 78, BUN/Creatinine Ratio 36.4 H, Glucose 239 H, Calcium 9.1 11/23/17 06:35: POC Glucose 256 H Current Medications Acetaminophen (Tylenol) 650 mg PO Q6H PRN PRN PRN Reason: Mild Pain (scale 0-3)/T>100.7 Last Admin: 11/22/17 23:01 Dose: 650 mg Hydrocodone Bitart/Acetaminophen ([place] 5mg-325mg) 1 tablet PO Q6H PRN PRN PRN Reason: PAIN Last Admin: 11/23/17 06:36 Dose: 1 tablet Al Hydroxide/Mg Hydroxide (Mylanta Ii) 30 ml PO Q6H PRN PRN PRN Reason: DYSPEPSIA/INDIGESTION Albuterol Sulfate (Ventolin Aerosols) 2.5 mg INHALATION Q2H PRN PRN PRN Reason: COUGH/SOB Albuterol/Ipratropium (Duoneb) 3 ml INHALATION Q4H.RT [facility] Last Admin: 11/23/17 07:03 Dose: 3 ml Atorvastatin Calcium (Lipitor) 40 mg PO QHS [facility] Last Admin: 11/22/17 22:55 Dose: 40 mg Benzonatate (Tessalon Perle) 100 mg PO TID PRN PRN PRN Reason: COUGH Last Admin: 11/22/17 18:30 Dose: 100 mg Budesonide (Pulmicort Aerosol) 0.5 mg INHALATION Q12H.RT [facility] Last Admin: 11/23/17 07:03 Dose: 0.5 mg Bupropion HCl (Wellbutrin Sr (150mg Tablets)) 150 mg PO BID [facility] Last Admin: 11/22/17 22:56 Dose: 150 mg Buspirone HCl (Buspar) 10 mg PO TID [facility] Last Admin: 11/23/17 06:31 Dose: 10 mg Calcium Carbonate (Tums) 500 - 1,000 mg PO Q6H PRN PRN PRN Reason: HEART BURN Dextrose (D50w Syringe) 0 gm IV X1 PRN; Protocol PRN Reason: Hypoglycemia Digoxin (Lanoxin) 250 mcg PO DAILY [facility] Last Admin: 11/22/17 10:00 Dose: 250 mcg Diltiazem HCl (Cardizem Cd) 120 mg PO BID [facility] Last Admin: 11/22/17 22:54 Dose: 120 mg Docusate Sodium (Colace) 100 mg PO QHS [facility] Last Admin: 11/22/17 22:54 Dose: 100 mg Famotidine (Pepcid) 20 mg PO BID [facility] Last Admin: 11/22/17 22:55 Dose: 20 mg Furosemide (Lasix) 40 mg PO BIDLX [facility] Last Admin: 11/22/17 18:06 Dose: Not Given Gabapentin (Neurontin) 100 mg PO TIDCM [facility] Last Admin: 11/22/17 16:54 Dose: 100 mg Glucagon () 1 mg IM .X1 PRN PRN Reason: Hypoglycemia Guaifenesin (Mucinex) 1,200 mg PO BID [facility] Last Admin: 11/22/17 22:55 Dose: 1,200 mg Insulin Glargine (Lantus (Bkc)) 60 units SC QHS [facility] Last Admin: 11/22/17 22:52 Dose: 60 unit Insulin Glargine (Lantus (Bkc)) 40 units SC DAILY [facility] Last Admin: 11/23/17 08:18 Dose: 2 u Insulin Human Lispro (Humalog Kwikpen (Bkc)) 0 unit SC 4X/DAYCM [facility]; Protocol Last Admin: 11/23/17 08:16 Dose: 4 u Insulin Human Lispro (Humalog Kwikpen (Bkc)) 15 unit SC TIDCM [facility] Last Admin: 11/23/17 08:16 Dose: 15 u Lisinopril (Zestril) 5 mg PO DAILY [facility] Last Admin: 11/22/17 10:02 Dose: Not Given Magnesium Hydroxide (Milk Of Magnesia) 30 ml PO DAILY PRN PRN PRN Reason: Constipation Methylprednisolone (Solu-Medrol) 40 mg IV Q8 [facility] Last Admin: 11/23/17 06:31 Dose: 40 mg Ondansetron HCl (Zofran) 4 mg IV Q8H PRN PRN PRN Reason: Nausea Polyethylene Glycol (Miralax) 17 gm PO DAILY [facility] Last Admin: 11/22/17 10:00 Dose: 17 gm Propranolol HCl (Inderal) 10 mg PO BID [facility] Last Admin: 11/22/17 22:54 Dose: 10 mg Rivaroxaban (Xarelto) 20 mg PO DAILY@1700 [facility] Last Admin: 11/22/17 16:54 Dose: 20 mg Senna/Docusate Sodium (Senokot-S, Estefania-Colace) 2 tablet PO DAILY PRN PRN PRN Reason: Constipation Sodium Chloride () 5 - 30 ml IV UD PRN PRN Reason: SALINE FLUSH Last Admin: 11/23/17 06:42 Dose: 10 ml Spironolactone (Aldactone) 25 mg PO BIDLX [facility] Last Admin: 11/22/17 18:06 Dose: Not Given Medical Necessity - Tobacco Use Smoking Status: Former smoker Tobacco Use: Cigarettes Assessment/Plan All Active Problems (Last Reviewed 11/20/17 @ 15:04 by All Karimi DO) Abdominal pain (Acute) ABDULLAHI (obstructive sleep apnea) (Acute) Acute exacerbation of chronic obstructive pulmonary disease (COPD) (Acute) Syncope (Acute) Chest pain (Acute) Chest pain (Acute) COPD (chronic obstructive pulmonary disease) (Acute) Acute and chronic respiratory failure with hypoxia (Resolved) Acute bronchitis due to human metapneumovirus (Resolved) Atrial fibrillation with RVR (Resolved) COPD with acute exacerbation (Resolved) Gram-negative pneumonia (Resolved) Cardiomyopathy (Ruled-out) The patient is a 62 y/o F w/ PMHx: Obesity, History of Tobacco use prior, Anxiety and Depression, Chronic Hypoxic Respiratory Failure (2-3L NC baseline) w/ Chronic COPD, HTN, HLD, Diabetes mellitus type II, History of SVT, Permanent atrial fibrillation, CAD, Cardiomyopathy Unclear Type who presents to the [facility] on 11/21/17 as direct admission with history of progressively worsening dyspnea, non-productive cough, wheezing without improvement with aerosols x 4-5 days, notably concerning appearing when evaluated at her Cardiology office and referred to [facility] for evaluation and treatment for COPD exacerbation. (1) Chronic Hypoxic Respiratory Failure with Acute on Chronic COPD exacerbation: Admitted to [facility], noted that she had been weaned off oxygen chronically over the last year, will maintain on oxygen with wean to RA as tolerated but expect likely need for oxygen supplementation upon discharge. Will continue ATC duonebs, PRN albuterol, IV solumedrol with transition to prednisone possible 11/23/17 AM given severity of examination, defer abx given no marked CBC WBC elevation and afebrile, HOB, IS parameters w/ requested sputum cultures and preliminary respiratory viral panel with no organisms. Given ongoing notable wheezing, already maximized on therapy, will request Dr. Prasad evaluation. Will need oxygen supplementation upon home discharge undoubtedly. Dr. Prasad noted intention for possibly stacked aerosols to attempt to improve her status also, will await his further input. Noted also given her status/severity of COPD, okay to maintain saturations 88-92%. (2) Recurrent Syncopal Events: Several admissions for syncopal events, 07/11/17 ECHO w/ hyperdynamic LV systolic function, EF 75%, mildly enlarged LA, mild to moderate mitral annular calcification, trivial MVI, trivial TBI, mild AVS, small pericardial effusion, no evidence of cardiac tamponade. Stress testing 05/13/17 with normal pharmacological myocardial perfusion stress testing. Patient was supposed to wear an event monitor recently but this did not occur. Follow-up with Cardiology as noted 11/20/17 resulting in transition for COPD admission. (3) Cardiomyopathy Unclear Type: Prior ECHO w/ EF 45-50%, recent 07/11/17 ECHO w/ hyperdynamic LV systolic function, EF 75%, mildly enlarged LA, mild to moderate mitral annular calcification, trivial MVI, trivial TBI, mild AVS, small pericardial effusion, no evidence of cardiac tamponade. Stress testing 05/13/17 with normal pharmacological myocardial perfusion stress testing. Admission BNP normal level, CXR with chronic changes. (4) CAD: Will continue home regimen asa, statin, BB. Stress testing 05/13/17 with normal pharmacological myocardial perfusion stress testing. (5) Permanent atrial fibrillation: Continue home regimen digoxin, propranolol, cardizem, xarelto regimen. (6) Diabetes mellitus type II: Elevated BS upon presentation and given current steroid IV usage, increased previously added AM lantus in addition to her continued home q HS regimen, HgbA1c requested, increased TID short acting regimen, ADA diet, accu checks w/ ISS. (7) Hypertension: Continue home regimen including propranolol, lisinopril, lasix, cardizem, spironolactone regimen. (8) Hyperlipidemia: Continue home statin regimen. (9) Anxiety and Depression: Continue home regimen buspar, wellbutrin. (10) History of Tobacco Abuse: Encouraged continued cessation, off x 2 months now but this has been intermittent. (11) Obesity: Weight loss and lifestyle changes encouraged. (12) Chronic Hyponatremia: Admission Na 132, similar to prior, repeat Na 135, trend as needed. (13) Asymptomatic VT: Short burst, primarily with exertion, mag supplemented, continue to monitor, on BB. (14) ABDULLAHI: Per Dr. Prasad patient w/ ABDULLAHI history, 09/22/17 study w/ severe ABDULLAHI. Trial BIPAP 09/19; however, patient non-compliant thus insurance coverage of device denied until completion of titration study which she has not performed. Will encourage completion of this study and follow-up with pulmonary once discharged. (15) DVT prophylaxis: SCDs, xarelto. Code Visit Inpatient E&M: 67094 Subs Hosp L2
[2017-11-23] MEDS: Lisinopril 5 MG Tablet PO (09:12)
[2017-11-23] MEDS: Propranolol 10 MG Tablet PO ×2 (09:13→22:24)
[2017-11-23] MEDS: Gabapentin 100 MG Capsule PO ×3 (09:13→17:01)
[2017-11-23] MEDS: Spironolactone 25 MG Tablet PO ×2 (09:13→17:02)
[2017-11-23] MEDS: dilTIAZem CD 120 MG Capsule PO ×2 (09:13→22:24)
[2017-11-23] MEDS: Furosemide 40 MG Tablet PO ×2 (09:14→17:02)
[2017-11-23] MEDS: guaiFENesin 1,200 MG Tablet 1200 MG PO ×2 (09:14→22:24)
[2017-11-23] MEDS: Digoxin 250 MCG Tablet PO (09:14)
[2017-11-23] MEDS: buPROPion (SR) 150 MG Tablet.SA PO ×2 (09:14→22:24)
[2017-11-23] MEDS: Famotidine 20 MG Tablet PO ×2 (09:19→22:24)
--- NOTE | 2017-11-23 10:19 | CON.PCM_ITS ---
Reason for Consult Date of Consultation: 11/23/17 Reason for Consultation: COPD exacerbation History of Present Illness: The patient is a 62-year-old female, with a history as outlined below, who presented to the emergency department on November 20 with progressive shortness of breath, chest tightness, wheezing and nonproductive cough of 3-4 days duration. The patient reports that she recently quit smoking approximately 2 months ago. She reports compliance with use of her home Symbicort twice daily. She does have access to albuterol rescue inhaler, but is unable to tell me how many times per day she has been utilizing said medication. She also reports that she is no longer using supplemental oxygen. On presentation to the emergency department, the patient was noted to be afebrile hemodynamically stable. She was tachypneic and hypoxic, saturating 89% on room air. Laboratory evaluation revealed an elevated white blood cell count of 14,000. Chemistry profile was largely unremarkable. Troponin and BNP were within normal limits. A plain film chest x-ray obtained in the emergency department revealed no acute cardiopulmonary process. The patient was subsequently admitted to the medical floor where she has been maintained on scheduled aerosol treatments, Pulmicort, and steroids. She is currently maintaining appropriate oxygen saturations on room air. However, her wheezing persists. The patient is currently established with the pulmonary medicine group and was last seen by her nurse practitioner in September. She has a history of chronic hypoxemic respiratory failure with a baseline 2 L supplemental oxygen requirement. The patient has an extensive smoking history of greater than 100 pack years. She currently resides in a senior living facility. During her last office visit with our nurse practitioner, she was noted to have findings of hypersomnia and witnessed apneas. Split night study completed on September 22, 2017 shows that the patient has severe obstructive sleep apnea, and unfortunately due to limitations of the split-night study there were not able to appropriately determine BiPAP settings. It was suggested the patient be started on a BiPAP of 8/4. The patient did not wear the BiPAP for the remainder of the study, therefore insurance coverage denied set up of the device until a complete titration study can be obtained. She is currently utilizing Symbicort and DuoNeb's. Attempts at obtaining pulmonary function testing in May 2017 was unsuccessful as the patient refused to utilize the mouthpiece due to excessive gagging. Therefore, the test results were uninterpretable due to a lack of patient effort and technique. Past Medical History Past Medical History (Chronic Problems): Chronic Problems (Last Reviewed 11/20/17 @ 15:04 by All Karimi DO) Morbid obesity with BMI of 50.0-59.9, adult (Chronic) Tobacco dependence due to cigarettes (Chronic) Non-compliance (Chronic) Microcytic anemia (Chronic) Hypersomnia (Chronic) Anemia (Chronic) Hypomagnesemia (Chronic) HTN (hypertension) (Chronic) Morbid obesity with BMI of 40.0-44.9, adult (Chronic) Chronic pain (Chronic) Chronic atrial fibrillation (Chronic) Chronic hypoxemic respiratory failure (Chronic) non-compliant with oxygen Hyperlipemia (Chronic) ECHO in June of 2017 showed a 75% EF Type 2 diabetes mellitus (Chronic) uncontrolled GERD (gastroesophageal reflux disease) (Chronic) Anxiety (Chronic) Insomnia (Chronic) Medical History: Medical History (Last Reviewed 11/20/17 @ 15:04 by All Karimi DO) Hypersomnia (Chronic) G47.10 Chest pain (Acute) R07.9 Anemia (Chronic) D64.9 Hypomagnesemia (Chronic) E83.42 HTN (hypertension) (Chronic) I10 Morbid obesity with BMI of 40.0-44.9, adult (Chronic) E66.01, Z68.41 COPD (chronic obstructive pulmonary disease) (Acute) J44.9 Chronic pain (Chronic) G89.29 Chronic atrial fibrillation (Chronic) I48.2 Chronic hypoxemic respiratory failure (Chronic) J96.11 non-compliant with oxygen Hyperlipemia (Chronic) E78.5 ECHO in June of 2017 showed a 75% EF Type 2 diabetes mellitus (Chronic) E11.9 uncontrolled GERD (gastroesophageal reflux disease) (Chronic) K21.9 Anxiety (Chronic) F41.9 Insomnia (Chronic) G47.00 Osteoporosis M81.0 Cardiomyopathy (Ruled-out) I42.9 EF in Oct 2015 45-50 Left ankle pain (Inactive) M25.572 Non-compliance (Inactive) Z91.19 withn follow up with pulmonary Allergies venom-honey bee [bee venom (honey bee)] Allergy (Verified 11/20/17 11:56) Swelling levofloxacin [From Levaquin] Adverse Reaction (Verified 11/20/17 11:56) Nausea oxycodone HCl [From Percocet] Adverse Reaction (Verified 11/20/17 11:56) Nausea Penicillins Adverse Reaction (Verified 11/20/17 11:56) Nausea/Vom/Diarrhea Home Medications: Ambulatory Orders Medication Instructions Recorded Albuterol Aerosols [Ventolin 2.5 mg INHALATION Q2H PRN PRN 05/12/17 Aerosols] Atorvastatin Calcium [Lipitor] 40 mg PO QHS 05/12/17 Budesonide/Formoterol 160/4.5 2 puff INHALATION BID 05/12/17 [Symbicort 160/4.5 Mcg Inhaler (SP)] Bupropion HCl [Bupropion HCl Sr] 150 mg PO BID 05/12/17 Buspirone HCl 10 mg PO TID 05/12/17 Digoxin 250 mcg PO DAILY 05/12/17 Diltiazem [Cardizem] 120 mg PO BID 05/12/17 Famotidine [Pepcid] 20 mg PO BID 05/12/17 Furosemide [Lasix] 40 mg PO BID 05/12/17 Glucagon,Human Recombinant 1 mg IM PRN PRN 05/12/17 [Glucagon Emergency Kit] Guaifenesin [Mucinex] 1,200 mg PO BID 05/12/17 Insulin Lispro [Humalog] 12 unit SQ TIDCM 05/12/17 Ipratropium/Albuterol Sulfate 3 ml INHALATION Q4H.RT 05/12/17 [Duoneb] Lisinopril [Prinivil] 5 mg PO DAILY 05/12/17 Propranolol HCl [Inderal (Beta 10 mg PO BID 05/12/17 Rubén)] Sennosides/Docusate Sodium 2 tab PO DAILY PRN PRN 05/12/17 [Senna-Docusate Sodium Tablet] Hydrocodone Bitart/Apap 5-325 1 tab PO Q6H PRN PRN 08/11/17 [[place] 5/325] Mag Hydrox/Al Hydrox/Simeth 30 ml PO Q6H PRN PRN 08/11/17 [Mylanta II] Polyethylene Glycol 3350 [Miralax] 17 gm PO DAILY 08/11/17 docusate sodium 100 mg capsule 100 mg PO QHS 09/01/17 gabapentin 100 mg capsule 100 mg PO TID cap 09/01/17 Spironolactone [Aldactone] 25 mg PO BID 11/01/17 Benzonatate [Tessalon Perle] 100 mg PO TID PRN PRN 11/02/17 Insulin Lispro [Humalog] See Protocol SQ TIDCM 11/02/17 Nitroglycerin 0.4 mg SL X1 11/02/17 Insulin Glargine,Hum.rec.anlog 60 unit SQ QHS #0 11/03/17 [Lantus Solostar] Rivaroxaban [Xarelto] 20 mg PO DAILY #0 11/03/17 Calcium Carbonate [Tums] 500 - 1,000 mg PO Q6H PRN PRN 11/20/17 acetaminophen 325 mg capsule 650 mg PO Q6H PRN cap 11/20/17 Surgical History: Surgical History (Last Reviewed 11/20/17 @ 15:05 by All Karimi DO) Cataract extraction status Z98.49 History of lumbar surgery Z98.890 History of tonsillectomy and adenoidectomy Z98.890 History of total hysterectomy Z90.710 Surgical History: hysterectomy, tonsillectomy, - - Lumbar surgery. Psychiatric History: Anxiety, Depression [employer]ERSON History: No pertinent [employer]ERSON history Smoking Status: Former smoker Tobacco Use: Cigarettes Alcohol: None Drugs: None - *Family History Maternal Family History: Family History (Last Reviewed 11/20/17 @ 15:05 by All Karimi DO) Sister Arthritis Diabetes Father Cancer Aunt Diabetes History Items: - - She reports that she is unaware of what her mother's health history was like Paternal Family History: Family History (Last Reviewed 11/20/17 @ 15:05 by All Karimi DO) Sister Arthritis Diabetes Father Cancer Aunt Diabetes History Items: Cancer, - - father with throat cancer. Sibling Family History: Family History (Last Reviewed 11/20/17 @ 15:05 by All Karimi DO) Sister Arthritis Diabetes Father Cancer Aunt Diabetes History Items: Asthma, COPD, Hypertension Review of Systems Constitutional: Denies: Chills, Fever Eyes: Denies: Blurred vision, Double vision HEENT: Denies: Head Aches, Sinus Congestion, Sinus Drainage Cardiovascular: Reports: Chest Tightness Respiratory: Reports: Cough, Shortness of Breath, Wheezing. Denies: Sputum production Gastrointestinal: Denies: Abdominal Pain, Nausea, Vomiting Genitourinary: Denies: Dysuria Musculoskeletal: Denies: Joint Pain, Joint Tenderness Skin: Denies: Rash, Wounds Neurological: Denies: Numbness, Tingling, Focal weakness Psychiatric: Denies: Anxiety, Depression, Homicidal Ideations, Suicidal Ideations Hematologic/ Lymphatic: Denies: Easy Bruising, Easy Bleeding Objective: The patient's most recent lab work, culture data and imaging studies have all been personally reviewed. Respiratory viral panel was negative. - Physical Exam General: Alert, Cooperative, No apparent distress, - - Sitting in wheelchair HEENT: Atraumatic, PERRLA, Normocephalic Oral: No Gingival or Mucosal Lesions/ Ulcerations Neck: Supple, No Nodes, Trachea Midline Lungs: No rhonchi, No rales, Diminished, Wheezes, - - Able to speak in complete sentences. Cardiovascular: Normal S1, Normal S2, No murmurs, Irregular Rate Abdomen: Bowel Sounds Present, Soft, Non Tender, Obese Extremities: No cyanosis, Clubbing, Edema Skin: No breakdown Musculoskeletal: No Tenderness to Palpation of Joints or Extremities, No Muscle Wasting Lymphatic: No Cervical, Supraclavicular, or Inguinal Adenopathy Neurological: Neuro grossly intact Psych/Mental Status: Normal Affect, Appropriate Vital Signs Temp Pulse Resp BP Pulse Ox 97.5 F L 88 16 115/65 93 11/23/17 07:31 11/23/17 09:26 11/23/17 09:26 11/23/17 07:31 11/23/17 09:26 Oxygen Flow Rate (L/min) 1 Oxygen Delivery Method Room Air Weight: 205 lb 14.588 oz Body Mass Index (BMI) 38.9 Finger Stick Blood Glucose 364 Intake and Output for Last 24 Hours 11/21/17 11/22/17 11/23/17 23:59 23:59 23:59 Intake Total 2180 / 2180 1890 / 1890 1000 / 1000 Output Total 1300 / 1300 1750 / 1750 2395 / 2395 Balance 880 / 880 140 / 140 -1395 / -1395 Microbiology Past 72 Hours 11/21/17 07:18 Respiratory Panel (PCR) - Final Mucosa - Nasopharyngeal Laboratory Tests Past 24 Hrs 11/22/17 11/23/17 11/23/17 10:43 05:00 05:00 WBC 13.3 H RBC 4.25 Hgb 11.3 L Hct 34.4 L MCV 80.9 L MCH 26.6 L MCHC 32.8 RDW 16.7 H RDW Differential 49.0 H Plt Count 300 MPV 11.3 Immature Gran % (Auto) 0.500 Neut % (Auto) 86.1 H Lymph % (Auto) 10.1 L [place] % (Auto) 3.2 Eos % (Auto) 0.0 Baso % (Auto) 0.1 Absolute Neuts (auto) 11.4 H Absolute Lymphs (auto) 1.34 Total Counted Not Reportable Sodium 135 L Potassium 4.9 Chloride 100 Carbon Dioxide 25.0 Anion Gap 10 BUN 29 H Creatinine 0.80 Estim Creat Clear Calc 55.02 Est GFR (MDRD) Af Amer 94 Est GFR (MDRD) Non-Af 78 BUN/Creatinine Ratio 36.4 H Glucose 455 H* 239 H Calcium 9.1 POC Glucose 11/23/17 11/22/17 11/22/17 06:35 22:28 16:12 POC Glucose 256 H 460 H* 311 H 11/22/17 11:31 POC Glucose 432 H Clinical Impression(s) from Imaging Studies Chest X-Ray 11/20/17 12:10 IMPRESSION: Normal x-ray examination of the chest. Electronically Signed: Danny Hale MD at 13:08 EDT , Service support , Assessment/Plan All Active Problems (Last Reviewed 11/20/17 @ 15:04 by All Karimi DO) Abdominal pain (Acute) ABDULLAHI (obstructive sleep apnea) (Acute) Acute exacerbation of chronic obstructive pulmonary disease (COPD) (Acute) Syncope (Acute) Chest pain (Acute) Chest pain (Acute) COPD (chronic obstructive pulmonary disease) (Acute) Acute and chronic respiratory failure with hypoxia (Resolved) Acute bronchitis due to human metapneumovirus (Resolved) Atrial fibrillation with RVR (Resolved) COPD with acute exacerbation (Resolved) Gram-negative pneumonia (Resolved) Cardiomyopathy (Ruled-out) RECOMMENDATIONS: 1. Maintain oxygen saturations 88-92%. 2. Empiric BiPAP 8/4 centimeters of water can be utilized nightly, if the patient is agreeable. 3. Continue scheduled bronchodilators and steroids as ordered. 4. Order has been placed for serial aerosol treatments every hour for the next 3 hours. IMPRESSIONS: 1. Presumptive COPD with exacerbation Although the patient does have presumptive COPD, she has been unable previously to perform pulmonary function testing. Therefore, the severity of her disease is unknown. She is currently utilizing Symbicort and duo nebs in her nursing facility. I do question the current remission status of her cigarette dependency. There has been no readily identifiable precipitating etiology for the patient's exacerbation. Respiratory viral panel was negative and plain film chest x-ray revealed no acute cardiopulmonary process. I agree with continuing scheduled bronchodilators, including Pulmicort and systemic steroids. I will place an order for the patient to receive stacked albuterol aerosol treatments every 1 hour for the next 3 hours. Continue to encourage incentive spirometer use and mobilize patient as tolerated. 2. Chronic hypoxemic respiratory failure The patient is supposed to be utilizing 2 L/min of supplemental oxygen. H owever, she states that a physician discontinued her supplemental oxygen. Nobody in the pulmonary medicine clinic stopped her supplemental oxygen. Therefore, I suspect highly that she will need to have it reordered upon discharge from the hospital. Okay to maintain oxygen saturations 88-92%. 3. Severe obstructive sleep apnea Split night study completed on September 22, 2017 showed that the patient has severe obstructive sleep apnea, and unfortunately due to limitations of the split- night study they were not able to appropriately determine BiPAP settings. It was suggested the patient be started on a BiPAP of 8/4. However, the patient did not wear the BiPAP for the remainder of the study. Therefore insurance coverage denied set up of the device until a complete titration study could be obtained. This has yet to be completed. 4. Tobacco dependency, currently in remission The patient does report that she quit smoking approximately 2 months ago. Per documentation from our nurse practitioner at the end of September 2017, the patient was still smoking cigarettes. Therefore, her remission status is questionable. This note was generated with [employer] dictation software. It may contain incorrect words, spelling, and punctuation that were not noted in checking the note before signing. Code Visit Inpatient E&M: 95426 Init Hosp L3
[2017-11-23] MEDS: Acetaminophen 325 MG Tablet 650 MG PO ×2 (11:56→20:20)
[2017-11-23 12:36] LABS: Bedside Glucose 324 mg/dL (70-110)
[2017-11-23] MEDS: Albuterol 2.5 MG/3 ML VIAL.NEB. INHALATION ×3 (13:44→15:49)
--- NOTE | 2017-11-23 15:25 | NURSING ---
vitals taken by Clary Churchill, nursing technician. reviewed by this RN. re-entered for 1500 to complete assessment for VSA score.
[2017-11-23] MEDS: Rivaroxaban 20 MG Tablet PO (17:02)
[2017-11-23 17:11] LABS: Bedside Glucose 127 mg/dL (70-110)
[2017-11-23 19:17] LABS: Hemoglobin A1c 9.4 % (4.2-6.3)
[2017-11-23] MEDS: Atorvastatin Calcium 40 MG Tablet PO (22:24)
[2017-11-23] MEDS: Docusate Sodium 100 MG Capsule PO (22:24)
[2017-11-23 22:41] LABS: Bedside Glucose 378 mg/dL (70-110)
[2017-11-24] VITALS (12 sets, daily range): BP systolic 108–140; BP diastolic 55–75; PULSE 74–95; RESP 16–20; TEMP 36.4–36.7; O2SAT 88–96
[2017-11-24] MEDS: Ipratropium/Albuterol Sulfate 3 ML AMPUL.NEB INHALATION ×6 (02:32→22:43)
[2017-11-24] MEDS: busPIRone 5 MG Tablet 10 MG PO ×3 (05:41→21:44)
[2017-11-24] MEDS: Budesonide Respules 0.5 MG/2 ML AMPUL.NEB. INHALATION ×2 (05:45→19:11)
[2017-11-24 06:10] LABS: Absolute Lymphocyte Count 1.58 X10^3/ul (0.83-4.51); Absolute Neutrophil Count 9.4 X10^3/uL (2.0-7.7); Basophil# 0.01 X10^3/uL; Basophil% 0.1 % (0-1); Hematocrit 35.7 % (37-47); Hemoglobin 11.8 g/dl (12.0-15.0); Lymphocyte # 1.58 X10^3/ul (4.0); Lymphocyte % 13.8 % (19-41); Mean Corp Hgb Conc 33.1 g/gl (32-36); Mean Corpuscular Hgb 26.7 pg (27.0-32.0); Mean Corpuscular Volume 80.8 fL (81-99); Mean Platelet Vol. 10.6 fl (6.2-12.0); Monocyte# 0.42 X10^3/uL; Monocyte% 3.7 % (0-10); Neutrophil # 9.35 X10^3/uL (2.7-7.7); Neutrophil % 81.9 % (47-70); Platelet Count 281 K/mm3 (150-450); RBC Distribution Width CV 16.7 % (11.6-14.6); RBC Distribution Width SD 48.7 fl (35.1-43.9); Red Blood Count 4.42 M/mm3 (4.2-5.4); White Blood Count 11.4 K/mm3 (4.4-11.0)
[2017-11-24 06:27] LABS: Anion Gap 9 (5-15); BUN 27 mg/dL (7-18); Calcium,Total 8.6 mg/dL (8.5-10.1); Chloride 101 mmol/L (98-107); EST Glomerular Filtration Rate 67 mL/min (>60); Est Glom Filt Rate - Afr Amer 81 mL/min (>60); Estimated Creatinine Clearance 48.91 ml/min; Glucose 212 mg/dL (74-106); Potassium 4.8 mmol/L (3.5-5.1); Sodium Level 135 mmol/L (136-145)
[2017-11-24 06:36] LABS: POSITIVE COUNT NO; POSITIVE DIFFERENTIAL NO; POSITIVE MORPHOLOGY NO
--- NOTE | 2017-11-24 06:54 | PCM.PN.HOSP ---
Subjective: Patient with no acute events overnight per self and per nursing report. Patient has improved and is able to perform her activities but still remarkably short of breath and does have some wheezing but nearing her baseline. Patient evaluation per pulmonary this a.m. with recommendation to transition to oral steroids and amenable to discharge. Discussed strongly with patient need for therapy evaluations to assess discharge needs including possible home therapies versus long-term facility to which she would be amenable if felt appropriate. Patient denies fevers, chills, nausea, emesis, abdominal pain, chest pain. Objective: Physical Examination: General: awake, alert, oriented x 3 and cooperative, seated upright in bed, NAD, appears more comfortable this AM. Skin: normal color, turgor, no icterus, cyanosis. HEENT: AT/NC, EOMI, PERRLA, MMM. Lungs: Improved air movement, diminished bases, improved effort, decreased wheezing, nearing baseline. Heart: Irregular, rate controlled; no gallop, rub audible. Abdomen: soft, obese, NTTP, ND, normal BS. Extremities: no cyanosis, clubbing, BL LE ankle edema decreased. Neurological: patient awake, alert, oriented x 3; cognitive function intact; pupils equally reactive to light and accomodation; cranial nerves II-XII grossly normal, moving all 4 extremities, no focal deficits, strength remain moderately to severely globally decreased. Psychiatric: affect appears improved, smiling this AM, no acute evidence of depressive or anxiety feelings. Vitals/I&O's: Vital Signs Temp Pulse Resp BP Pulse Ox 98 F 77 16 140/75 H 93 11/24/17 02:30 11/24/17 05:45 11/24/17 05:45 11/24/17 02:30 11/24/17 02:30 Oxygen Flow Rate (L/min) 1 Oxygen Delivery Method Room Air Weight: 205 lb 14.588 oz Body Mass Index (BMI) 38.9 Finger Stick Blood Glucose 364 Intake and Output for Last 24 Hours 11/22/17 11/23/17 11/24/17 23:59 23:59 23:59 Intake Total 1890 / 1890 1000 / 1000 300 / 300 Output Total 1750 / 1750 2995 / 2995 650 / 650 Balance 140 / 140 -1994 / -1994 -350 / -350 Microbiology Past 72 Hours 11/21/17 07:18 Mucosa - Nasopharyngeal Respiratory Panel (PCR) - Final Laboratory Results 11/23/17 05:00: Hemoglobin A1c 9.4 H 11/23/17 06:35: POC Glucose 256 H 11/23/17 12:12: POC Glucose 324 H 11/23/17 16:58: POC Glucose 127 H 11/23/17 22:24: POC Glucose 378 H 11/24/17 05:56: WBC 11.4 H, RBC 4.42, Hgb 11.8 L, Hct 35.7 L, MCV 80.8 L, MCH 26.7 L, MCHC 33.1, RDW 16.7 H, RDW Differential 48.7 H, Plt Count 281, MPV 10.6, Immature Gran % (Auto) 0.500, Neut % (Auto) 81.9 H, Lymph % (Auto) 13.8 L, [place] % (Auto) 3.7, Eos % (Auto) 0.0, Baso % (Auto) 0.1, Absolute Neuts (auto) 9.4 H, Absolute Lymphs (auto) 1.58, Total Counted Not Reportable 11/24/17 05:56: Sodium 135 L, Potassium 4.8, Chloride 101, Carbon Dioxide 25.0, Anion Gap 9, BUN 27 H, Creatinine 0.90, Estim Creat Clear Calc 48.91, Est GFR (MDRD) Af Amer 81, Est GFR (MDRD) Non-Af 67, BUN/Creatinine Ratio 30.0 H, Glucose 212 H, Calcium 8.6 Current Medications Acetaminophen (Tylenol) 650 mg PO Q6H PRN PRN PRN Reason: Mild Pain (scale 0-3)/T>100.7 Last Admin: 11/23/17 20:20 Dose: 650 mg Hydrocodone Bitart/Acetaminophen (Dwale 5mg-325mg) 1 tablet PO Q6H PRN PRN PRN Reason: PAIN Last Admin: 11/23/17 22:25 Dose: 1 tablet Al Hydroxide/Mg Hydroxide (Mylanta Ii) 30 ml PO Q6H PRN PRN PRN Reason: DYSPEPSIA/INDIGESTION Albuterol Sulfate (Ventolin Aerosols) 2.5 mg INHALATION Q2H PRN PRN PRN Reason: COUGH/SOB Albuterol/Ipratropium (Duoneb) 3 ml INHALATION Q4H.RT MARYANN Last Admin: 11/24/17 05:45 Dose: 3 ml Atorvastatin Calcium (Lipitor) 40 mg PO QHS [facility] Last Admin: 11/23/17 22:24 Dose: 40 mg Benzonatate (Tessalon Perle) 100 mg PO TID PRN PRN PRN Reason: COUGH Last Admin: 11/22/17 18:30 Dose: 100 mg Budesonide (Pulmicort Aerosol) 0.5 mg INHALATION Q12H.RT [facility] Last Admin: 11/24/17 05:45 Dose: 0.5 mg Bupropion HCl (Wellbutrin Sr (150mg Tablets)) 150 mg PO BID [facility] Last Admin: 11/23/17 22:24 Dose: 150 mg Buspirone HCl (Buspar) 10 mg PO TID [facility] Last Admin: 11/24/17 05:41 Dose: 10 mg Calcium Carbonate (Tums) 500 - 1,000 mg PO Q6H PRN PRN PRN Reason: HEART BURN Dextrose (D50w Syringe) 0 gm IV X1 PRN; Protocol PRN Reason: Hypoglycemia Digoxin (Lanoxin) 250 mcg PO DAILY [facility] Last Admin: 11/23/17 09:14 Dose: 250 mcg Diltiazem HCl (Cardizem Cd) 120 mg PO BID [facility] Last Admin: 11/23/17 22:24 Dose: 120 mg Docusate Sodium (Colace) 100 mg PO QHS [facility] Last Admin: 11/23/17 22:24 Dose: 100 mg Famotidine (Pepcid) 20 mg PO BID [facility] Last Admin: 11/23/17 22:24 Dose: 20 mg Furosemide (Lasix) 40 mg PO BIDLX [facility] Last Admin: 11/23/17 17:02 Dose: 40 mg Gabapentin (Neurontin) 100 mg PO TIDCM [facility] Last Admin: 11/23/17 17:01 Dose: 100 mg Glucagon () 1 mg IM .X1 PRN PRN Reason: Hypoglycemia Guaifenesin (Mucinex) 1,200 mg PO BID [facility] Last Admin: 11/23/17 22:24 Dose: 1,200 mg Insulin Glargine (Lantus (Bkc)) 75 units SC QHS [facility] Last Admin: 11/23/17 22:28 Dose: 75 u Insulin Glargine (Lantus (Bkc)) 50 units SC DAILY [facility] Insulin Human Lispro (Humalog Kwikpen (Bkc)) 0 unit SC 4X/DAYCM [facility]; Protocol Last Admin: 11/23/17 22:28 Dose: 10 u Insulin Human Lispro (Humalog Kwikpen (Bkc)) 15 unit SC TIDCM [facility] Last Admin: 11/23/17 16:59 Dose: 15 u Lisinopril (Zestril) 5 mg PO DAILY [facility] Last Admin: 11/23/17 09:12 Dose: 5 mg Magnesium Hydroxide (Milk Of Magnesia) 30 ml PO DAILY PRN PRN PRN Reason: Constipation Methylprednisolone (Solu-Medrol) 40 mg IV Q8 [facility] Last Admin: 11/24/17 05:41 Dose: 40 mg Ondansetron HCl (Zofran) 4 mg IV Q8H PRN PRN PRN Reason: Nausea Polyethylene Glycol (Miralax) 17 gm PO DAILY [facility] Last Admin: 11/23/17 09:23 Dose: Not Given Propranolol HCl (Inderal) 10 mg PO BID [facility] Last Admin: 11/23/17 22:24 Dose: 10 mg Rivaroxaban (Xarelto) 20 mg PO DAILY@1700 [facility] Last Admin: 11/23/17 17:02 Dose: 20 mg Senna/Docusate Sodium (Senokot-S, Estefania-Colace) 2 tablet PO DAILY PRN PRN PRN Reason: Constipation Sodium Chloride () 5 - 30 ml IV UD PRN PRN Reason: SALINE FLUSH Last Admin: 11/23/17 06:42 Dose: 10 ml Spironolactone (Aldactone) 25 mg PO BIDLX [facility] Last Admin: 11/23/17 17:02 Dose: 25 mg Medical Necessity - Tobacco Use Smoking Status: Former smoker Tobacco Use: Cigarettes Assessment/Plan All Active Problems (Last Reviewed 11/20/17 @ 15:04 by All Karimi DO) Abdominal pain (Acute) Acute exacerbation of chronic obstructive pulmonary disease (COPD) (Acute) Tobacco dependence due to cigarettes (Resolved) Chest pain (Acute) Chest pain (Acute) Acute and chronic respiratory failure with hypoxia (Resolved) Acute bronchitis due to human metapneumovirus (Resolved) Atrial fibrillation with RVR (Resolved) COPD with acute exacerbation (Resolved) Gram-negative pneumonia (Resolved) Cardiomyopathy (Ruled-out) The patient is a 62 y/o F w/ PMHx: Obesity, History of Tobacco use prior, Anxiety and Depression, Chronic Hypoxic Respiratory Failure (2-3L NC baseline) w/ Chronic COPD, HTN, HLD, Diabetes mellitus type II, History of SVT, Permanent atrial fibrillation, CAD, Cardiomyopathy Unclear Type who presents to the [facility] on 11/21/17 as direct admission with history of progressively worsening dyspnea, non-productive cough, wheezing without improvement with aerosols x 4-5 days, notably concerning appearing when evaluated at her Cardiology office and referred to [facility] for evaluation and treatment for COPD exacerbation. (1) Chronic Hypoxic Respiratory Failure with Acute on Chronic COPD exacerbation: Admitted to [facility], noted that she had been weaned off oxygen chronically over the last year, will maintain on oxygen with wean to RA as tolerated but expect likely need for oxygen supplementation upon discharge. Will continue ATC duonebs, PRN albuterol, IV solumedrol-->prednisone 11/24/17, defer abx given no marked CBC WBC elevation and afebrile, HOB, IS parameters w/ requested sputum cultures and preliminary respiratory viral panel with no organisms. Dr. rPasad 11/23/17 set-up of stacked aerosols to attempt to improve her status also with improvement. Noted also given her status/severity of COPD, okay to maintain saturations 88-92%. Re-evaluation this AM w/ transition from IV solumedrol to prednisone, encouraged PT and OT evaluation and had been declining prior w/ SNF versus home with home health at [facility] discharge today. Planned pulmonary close follow-up regardless. (2) Diabetes mellitus type II, Uncontrolled w/ Hyperglycemia secondary to Steroid Usage: Elevated BS upon presentation and given current steroid IV usage, increased previously added AM lantus in addition to her continued home q HS regimen, increased regimen again BID 11/23/17 with some improvement, HgbA1c 9.4% HgbA1c which has increased since 03/27/16 Hgb 8.5% noted, increased TID short acting regimen, ADA diet, accu checks w/ ISS. Transiting to oral prednisone, upon SNF versus home discharge plan BID lantus regimen w/ alterations pending repeat BS trending w/ taper of her steroids. (3) Recurrent Syncopal Events: Several admissions for syncopal events, 07/11/17 ECHO w/ hyperdynamic LV systolic function, EF 75%, mildly enlarged LA, mild to moderate mitral annular calcification, trivial MVI, trivial TBI, mild AVS, small pericardial effusion, no evidence of cardiac tamponade. Stress testing 05/13/17 with normal pharmacological myocardial perfusion stress testing. Patient was supposed to wear an event monitor recently but this did not occur. Follow-up with Cardiology as noted 11/20/17 resulting in transition for COPD admission. Have noted during current admission episodes of VT, short, primarily with exertion, requested CM/SW to set-up HM evaluation upon discharge w/ planned cardiology follow-up upon completion. (4) Cardiomyopathy Unclear Type: Prior ECHO w/ EF 45-50%, recent 07/11/17 ECHO w/ hyperdynamic LV systolic function, EF 75%, mildly enlarged LA, mild to moderate mitral annular calcification, trivial MVI, trivial TBI, mild AVS, small pericardial effusion, no evidence of cardiac tamponade. Stress testing 05/13/17 with normal pharmacological myocardial perfusion stress testing. Admission BNP normal level, CXR with chronic changes. (5) CAD: Will continue home regimen asa, statin, BB. Stress testing 05/13/17 with normal pharmacological myocardial perfusion stress testing. (6) Permanent atrial fibrillation: Continue home regimen digoxin, propranolol, cardizem, xarelto regimen. (7) Hypertension: Continue home regimen including propranolol, lisinopril, lasix, cardizem, spironolactone regimen. (8) Hyperlipidemia: Continue home statin regimen. (9) Anxiety and Depression: Continue home regimen buspar, wellbutrin. (10) History of Tobacco Abuse: Encouraged continued cessation, off x 2 months now but this has been intermittent. (11) Obesity: Weight loss and lifestyle changes encouraged. (12) Chronic Hyponatremia: Admission Na 132, similar to prior, repeat Na 135, trend as needed. (13) Asymptomatic VT: Short burst, primarily with exertion, mag supplemented, continue to monitor, on BB. (14) ABDULLAHI: Per Dr. Prasad patient w/ ABDULLAHI history, 09/22/17 study w/ severe ABDULLAHI. Trial BIPAP 09/19; however, patient non-compliant thus insurance coverage of device denied until completion of titration study which she has not performed. Will encourage completion of this study and follow-up with pulmonary with 1-2 weeks upon current discharge. (15) DVT prophylaxis: SCDs, xarelto. Code Visit Inpatient E&M: 70479 Subs Hosp L2
--- NOTE | 2017-11-24 06:57 | PN_ITS ---
Subjective: Patient with no acute events overnight per self and per nursing report. Patient has improved and is able to perform her activities but still remarkably short of breath and does have some wheezing but nearing her baseline. Patient evaluation per pulmonary this a.m. with recommendation to transition to oral steroids and amenable to discharge. Discussed strongly with patient need for therapy evaluations to assess discharge needs including possible home therapies versus shelter facility to which she would be amenable if felt appropriate. Patient denies fevers, chills, nausea, emesis, abdominal pain, chest pain. Objective: Physical Examination: General: awake, alert, oriented x 3 and cooperative, seated upright in bed, NAD, appears more comfortable this AM. Skin: normal color, turgor, no icterus, cyanosis. HEENT: AT/NC, EOMI, PERRLA, MMM. Lungs: Improved air movement, diminished bases, improved effort, decreased wheezing, nearing baseline. Heart: Irregular, rate controlled; no gallop, rub audible. Abdomen: soft, obese, NTTP, ND, normal BS. Extremities: no cyanosis, clubbing, BL LE ankle edema decreased. Neurological: patient awake, alert, oriented x 3; cognitive function intact; pupils equally reactive to light and accomodation; cranial nerves II-XII grossly normal, moving all 4 extremities, no focal deficits, strength remain moderately to severely globally decreased. Psychiatric: affect appears improved, smiling this AM, no acute evidence of depressive or anxiety feelings. Vitals/I&O's: Vital Signs Temp Pulse Resp BP Pulse Ox 98 F 77 16 140/75 H 93 11/24/17 02:30 11/24/17 05:45 11/24/17 05:45 11/24/17 02:30 11/24/17 02:30 Oxygen Flow Rate (L/min) 1 Oxygen Delivery Method Room Air Weight: 205 lb 14.588 oz Body Mass Index (BMI) 38.9 Finger Stick Blood Glucose 364 Intake and Output for Last 24 Hours 11/22/17 11/23/17 11/24/17 23:59 23:59 23:59 Intake Total 1890 / 1890 1000 / 1000 300 / 300 Output Total 1750 / 1750 2995 / 2995 650 / 650 Balance 140 / 140 -1994 / -1994 -350 / -350 Microbiology Past 72 Hours 11/21/17 07:18 Mucosa - Nasopharyngeal Respiratory Panel (PCR) - Final Laboratory Results 11/23/17 05:00: Hemoglobin A1c 9.4 H 11/23/17 06:35: POC Glucose 256 H 11/23/17 12:12: POC Glucose 324 H 11/23/17 16:58: POC Glucose 127 H 11/23/17 22:24: POC Glucose 378 H 11/24/17 05:56: WBC 11.4 H, RBC 4.42, Hgb 11.8 L, Hct 35.7 L, MCV 80.8 L, MCH 26.7 L, MCHC 33.1, RDW 16.7 H, RDW Differential 48.7 H, Plt Count 281, MPV 10.6, Immature Gran % (Auto) 0.500, Neut % (Auto) 81.9 H, Lymph % (Auto) 13.8 L, [place] % (Auto) 3.7, Eos % (Auto) 0.0, Baso % (Auto) 0.1, Absolute Neuts (auto) 9.4 H, Absolute Lymphs (auto) 1.58, Total Counted Not Reportable 11/24/17 05:56: Sodium 135 L, Potassium 4.8, Chloride 101, Carbon Dioxide 25.0, Anion Gap 9, BUN 27 H, Creatinine 0.90, Estim Creat Clear Calc 48.91, Est GFR (MDRD) Af Amer 81, Est GFR (MDRD) Non-Af 67, BUN/Creatinine Ratio 30.0 H, Glucose 212 H, Calcium 8.6 Current Medications Acetaminophen (Tylenol) 650 mg PO Q6H PRN PRN PRN Reason: Mild Pain (scale 0-3)/T>100.7 Last Admin: 11/23/17 20:20 Dose: 650 mg Hydrocodone Bitart/Acetaminophen (Twisp 5mg-325mg) 1 tablet PO Q6H PRN PRN PRN Reason: PAIN Last Admin: 11/23/17 22:25 Dose: 1 tablet Al Hydroxide/Mg Hydroxide (Mylanta Ii) 30 ml PO Q6H PRN PRN PRN Reason: DYSPEPSIA/INDIGESTION Albuterol Sulfate (Ventolin Aerosols) 2.5 mg INHALATION Q2H PRN PRN PRN Reason: COUGH/SOB Albuterol/Ipratropium (Duoneb) 3 ml INHALATION Q4H.RT MARYANN Last Admin: 11/24/17 05:45 Dose: 3 ml Atorvastatin Calcium (Lipitor) 40 mg PO QHS [facility] Last Admin: 11/23/17 22:24 Dose: 40 mg Benzonatate (Tessalon Perle) 100 mg PO TID PRN PRN PRN Reason: COUGH Last Admin: 11/22/17 18:30 Dose: 100 mg Budesonide (Pulmicort Aerosol) 0.5 mg INHALATION Q12H.RT [facility] Last Admin: 11/24/17 05:45 Dose: 0.5 mg Bupropion HCl (Wellbutrin Sr (150mg Tablets)) 150 mg PO BID [facility] Last Admin: 11/23/17 22:24 Dose: 150 mg Buspirone HCl (Buspar) 10 mg PO TID [facility] Last Admin: 11/24/17 05:41 Dose: 10 mg Calcium Carbonate (Tums) 500 - 1,000 mg PO Q6H PRN PRN PRN Reason: HEART BURN Dextrose (D50w Syringe) 0 gm IV X1 PRN; Protocol PRN Reason: Hypoglycemia Digoxin (Lanoxin) 250 mcg PO DAILY [facility] Last Admin: 11/23/17 09:14 Dose: 250 mcg Diltiazem HCl (Cardizem Cd) 120 mg PO BID [facility] Last Admin: 11/23/17 22:24 Dose: 120 mg Docusate Sodium (Colace) 100 mg PO QHS [facility] Last Admin: 11/23/17 22:24 Dose: 100 mg Famotidine (Pepcid) 20 mg PO BID [facility] Last Admin: 11/23/17 22:24 Dose: 20 mg Furosemide (Lasix) 40 mg PO BIDLX [facility] Last Admin: 11/23/17 17:02 Dose: 40 mg Gabapentin (Neurontin) 100 mg PO TIDCM [facility] Last Admin: 11/23/17 17:01 Dose: 100 mg Glucagon () 1 mg IM .X1 PRN PRN Reason: Hypoglycemia Guaifenesin (Mucinex) 1,200 mg PO BID [facility] Last Admin: 11/23/17 22:24 Dose: 1,200 mg Insulin Glargine (Lantus (Bkc)) 75 units SC QHS [facility] Last Admin: 11/23/17 22:28 Dose: 75 u Insulin Glargine (Lantus (Bkc)) 50 units SC DAILY [facility] Insulin Human Lispro (Humalog Kwikpen (Bkc)) 0 unit SC 4X/DAYCM [facility]; Protocol Last Admin: 11/23/17 22:28 Dose: 10 u Insulin Human Lispro (Humalog Kwikpen (Bkc)) 15 unit SC TIDCM [facility] Last Admin: 11/23/17 16:59 Dose: 15 u Lisinopril (Zestril) 5 mg PO DAILY [facility] Last Admin: 11/23/17 09:12 Dose: 5 mg Magnesium Hydroxide (Milk Of Magnesia) 30 ml PO DAILY PRN PRN PRN Reason: Constipation Methylprednisolone (Solu-Medrol) 40 mg IV Q8 [facility] Last Admin: 11/24/17 05:41 Dose: 40 mg Ondansetron HCl (Zofran) 4 mg IV Q8H PRN PRN PRN Reason: Nausea Polyethylene Glycol (Miralax) 17 gm PO DAILY [facility] Last Admin: 11/23/17 09:23 Dose: Not Given Propranolol HCl (Inderal) 10 mg PO BID [facility] Last Admin: 11/23/17 22:24 Dose: 10 mg Rivaroxaban (Xarelto) 20 mg PO DAILY@1700 [facility] Last Admin: 11/23/17 17:02 Dose: 20 mg Senna/Docusate Sodium (Senokot-S, Estefania-Colace) 2 tablet PO DAILY PRN PRN PRN Reason: Constipation Sodium Chloride () 5 - 30 ml IV UD PRN PRN Reason: SALINE FLUSH Last Admin: 11/23/17 06:42 Dose: 10 ml Spironolactone (Aldactone) 25 mg PO BIDLX [facility] Last Admin: 11/23/17 17:02 Dose: 25 mg Medical Necessity - Tobacco Use Smoking Status: Former smoker Tobacco Use: Cigarettes Assessment/Plan All Active Problems (Last Reviewed 11/20/17 @ 15:04 by All Karimi DO) Abdominal pain (Acute) Acute exacerbation of chronic obstructive pulmonary disease (COPD) (Acute) Tobacco dependence due to cigarettes (Resolved) Chest pain (Acute) Chest pain (Acute) Acute and chronic respiratory failure with hypoxia (Resolved) Acute bronchitis due to human metapneumovirus (Resolved) Atrial fibrillation with RVR (Resolved) COPD with acute exacerbation (Resolved) Gram-negative pneumonia (Resolved) Cardiomyopathy (Ruled-out) The patient is a 62 y/o F w/ PMHx: Obesity, History of Tobacco use prior, Anxiety and Depression, Chronic Hypoxic Respiratory Failure (2-3L NC baseline) w/ Chronic COPD, HTN, HLD, Diabetes mellitus type II, History of SVT, Permanent atrial fibrillation, CAD, Cardiomyopathy Unclear Type who presents to the [facility] on 11/21/17 as direct admission with history of progressively worsening dyspnea, non-productive cough, wheezing without improvement with aerosols x 4-5 days, notably concerning appearing when evaluated at her Cardiology office and referre d to [facility] for evaluation and treatment for COPD exacerbation. (1) Chronic Hypoxic Respiratory Failure with Acute on Chronic COPD exacerbation: Admitted to [facility], noted that she had been weaned off oxygen chronically over the last year, will maintain on oxygen with wean to RA as tolerated but expect likely need for oxygen supplementation upon discharge. Will continue ATC duonebs, PRN albuterol, IV solumedrol-->prednisone 11/24/17, defer abx given no marked CBC WBC elevation and afebrile, HOB, IS parameters w/ requested sputum cultures and preliminary respiratory viral panel with no organisms. Dr. Prasad 11/23/17 set-up of stacked aerosols to attempt to improve her status also with improvement. Noted also given her status/severity of COPD, okay to maintain saturations 88-92%. Re-evaluation this AM w/ transition from IV solumedrol to prednisone, encouraged PT and OT evaluation and had been declining prior w/ SNF versus home with home health at [place] discharge today. Planned pulmonary close follow-up regardless. (2) Diabetes mellitus type II, Uncontrolled w/ Hyperglycemia secondary to Steroid Usage: Elevated BS upon presentation and given current steroid IV usage, increased previously added AM lantus in addition to her continued home q HS regimen, increased regimen again BID 11/23/17 with some improvement, HgbA1c 9.4% HgbA1c which has increased since 03/27/16 Hgb 8.5% noted, increased TID short acting regimen, ADA diet, accu checks w/ ISS. Transiting to oral prednisone, upon SNF versus home discharge plan BID lantus regimen w/ alterations pending repeat BS trending w/ taper of her steroids. (3) Recurrent Syncopal Events: Several admissions for syncopal events, 07/11/17 ECHO w/ hyperdynamic LV systolic function, EF 75%, mildly enlarged LA, mild to moderate mitral annular calcification, trivial MVI, trivial TBI, mild AVS, small pericardial effusion, no evidence of cardiac tamponade. Stress testing 05/13/17 with normal pharmacological myocardial perfusion stress testing. Patient was supposed to wear an event monitor recently but this did not occur. Follow-up with Cardiology as noted 11/20/17 resulting in transition for COPD admission. Have noted during current admission episodes of VT, short, primarily with exertion, requested CM/SW to set-up HM evaluation upon discharge w/ planned cardiology follow-up upon completion. (4) Cardiomyopathy Unclear Type: Prior ECHO w/ EF 45-50%, recent 07/11/17 ECHO w/ hyperdynamic LV systolic function, EF 75%, mildly enlarged LA, mild to moderate mitral annular calcification, trivial MVI, trivial TBI, mild AVS, small pericardial effusion, no evidence of cardiac tamponade. Stress testing 05/13/17 with normal pharmacological myocardial perfusion stress testing. Admission BNP normal level, CXR with chronic changes. (5) CAD: Will continue home regimen asa, statin, BB. Stress testing 05/13/17 with normal pharmacological myocardial perfusion stress testing. (6) Permanent atrial fibrillation: Continue home regimen digoxin, propranolol, cardizem, xarelto regimen. (7) Hypertension: Continue home regimen including propranolol, lisinopril, lasix, cardizem, spironolactone regimen. (8) Hyperlipidemia: Continue home statin regimen. (9) Anxiety and Depression: Continue home regimen buspar, wellbutrin. (10) History of Tobacco Abuse: Encouraged continued cessation, off x 2 months now but this has been intermittent. (11) Obesity: Weight loss and lifestyle changes encouraged. (12) Chronic Hyponatremia: Admission Na 132, similar to prior, repeat Na 135, trend as needed. (13) Asymptomatic VT: Short burst, primarily with exertion, mag supplemented, continue to monitor, on BB. (14) ABDULLAHI: Per Dr. Prasad patient w/ ABDULLAHI history, 09/22/17 study w/ severe ABDULLAHI. Trial BIPAP 09/19; however, patient non-compliant thus insurance coverage of device denied until completion of titration study which she has not performed. Will encourage completion of this study and follow-up with pulmonary with 1-2 weeks upon current discharge. (15) DVT prophylaxis: SCDs, xarelto. Code Visit Inpatient E&M: 90107 Subs Hosp L2
--- NOTE | 2017-11-24 07:15 | PCM.PROGNOTE ---
Subjective: The patient was seen and examined at the bedside this morning. Events from the last 24 hours have been reviewed. The patient is currently afebrile, hemodynamically stable and maintaining appropriate oxygen saturations on room air. She does report some interval improvement in her breathing quality. However, she does continue to wheeze. The patient has been refusing to participate in physical therapy over the last several days. Objective: The patient's most recent lab work, culture data and imaging studies have all been personally reviewed. Respiratory viral panel was negative. - Physical Exam General: Alert, Cooperative, No apparent distress HEENT: Atraumatic, PERRLA, Normocephalic Oral: Moist Mucosa, No Gingival or Mucosal Lesions/ Ulcerations Neck: Supple, No Nodes, Trachea Midline Lungs: No rhonchi, No rales, Diminished, Wheezes Cardiovascular: Normal S1, Normal S2, No murmurs, Irregular Rate Abdomen: Bowel Sounds Present, Soft, Non Tender, Obese Extremities: No cyanosis, Clubbing, Edema Skin: No breakdown Musculoskeletal: No Tenderness to Palpation of Joints or Extremities, No Muscle Wasting Lymphatic: No Cervical, Supraclavicular, or Inguinal Adenopathy Neurological: Cranial nerves II-XII grossly intact, Neuro grossly intact Psych/Mental Status: Normal Affect, Appropriate Vital Signs Temp Pulse Resp BP Pulse Ox 98 F 77 16 140/75 H 93 11/24/17 02:30 11/24/17 05:45 11/24/17 05:45 11/24/17 02:30 11/24/17 02:30 Oxygen Flow Rate (L/min) 1 Oxygen Delivery Method Room Air Weight: 205 lb 14.588 oz Body Mass Index (BMI) 38.9 Finger Stick Blood Glucose 364 Intake and Output for Last 24 Hours 11/22/17 11/23/17 11/24/17 23:59 23:59 23:59 Intake Total 1890 / 1890 1000 / 1000 300 / 300 Output Total 1750 / 1750 2995 / 2995 650 / 650 Balance 140 / 140 -1994 / -1994 -350 / -350 Microbiology Past 72 Hours 11/21/17 07:18 Respiratory Panel (PCR) - Final Mucosa - Nasopharyngeal Laboratory Tests Past 24 Hrs 11/23/17 11/24/17 11/24/17 05:00 05:56 05:56 WBC 11.4 H RBC 4.42 Hgb 11.8 L Hct 35.7 L MCV 80.8 L MCH 26.7 L MCHC 33.1 RDW 16.7 H RDW Differential 48.7 H Plt Count 281 MPV 10.6 Immature Gran % (Auto) 0.500 Neut % (Auto) 81.9 H Lymph % (Auto) 13.8 L Benson % (Auto) 3.7 Eos % (Auto) 0.0 Baso % (Auto) 0.1 Absolute Neuts (auto) 9.4 H Absolute Lymphs (auto) 1.58 Total Counted Not Reportable Sodium 135 L Potassium 4.8 Chloride 101 Carbon Dioxide 25.0 Anion Gap 9 BUN 27 H Creatinine 0.90 Estim Creat Clear Calc 48.91 Est GFR (MDRD) Af Amer 81 Est GFR (MDRD) Non-Af 67 BUN/Creatinine Ratio 30.0 H Glucose 212 H Hemoglobin A1c 9.4 H Calcium 8.6 POC Glucose 11/23/17 11/23/17 11/23/17 22:24 16:58 12:12 POC Glucose 378 H 127 H 324 H Clinical Impression(s) from Imaging Studies Chest X-Ray 11/20/17 12:10 IMPRESSION: Normal x-ray examination of the chest. Electronically Signed: Danny Hale MD at 13:08 EDT , Service support , Medical Necessity - Tobacco Use Smoking Status: Former smoker Tobacco Use: Cigarettes Assessment/Plan All Active Problems (Last Reviewed 11/20/17 @ 15:04 by All Karimi DO) Abdominal pain (Acute) Acute exacerbation of chronic obstructive pulmonary disease (COPD) (Acute) Tobacco dependence due to cigarettes (Resolved) Chest pain (Acute) Chest pain (Acute) Acute and chronic respiratory failure with hypoxia (Resolved) Acute bronchitis due to human metapneumovirus (Resolved) Atrial fibrillation with RVR (Resolved) COPD with acute exacerbation (Resolved) Gram-negative pneumonia (Resolved) Cardiomyopathy (Ruled-out) RECOMMENDATIONS: 1. Maintain oxygen saturations 88-92%. 2. Empiric BiPAP 8/4 centimeters of water can be utilized nightly, if the patient is agreeable. 3. Continue scheduled bronchodilators and steroids as ordered. 4. Perform walking oximetry study prior to consideration for discharge from the hospital. 5. Please have the patient follow-up in the pulmonary medicine clinic within 2 weeks of her discharge. IMPRESSIONS: 1. Presumptive COPD with exacerbation Although the patient does have presumptive COPD, she has been unable previously to perform pulmonary function testing. Therefore, the severity of her disease is unknown. She is currently utilizing Symbicort and duo nebs in her nursing facility. I do question the current remission status of her cigarette dependency. There has been no readily identifiable precipitating etiology for the patient's exacerbation. Respiratory viral panel was negative and plain film chest x-ray revealed no acute cardiopulmonary process. I agree with continuing scheduled bronchodilators, including Pulmicort and systemic steroids. Continue to encourage incentive spirometer use and mobilize patient as tolerated. Recommend discharging the patient on a prolonged steroid taper with resumption of her baseline inhaler regimen. Please perform walking oximetry study prior to consideration for DC. The patient should follow-up in the pulmonary medicine clinic within 2 weeks of her discharge from the hospital. 2. Chronic hypoxemic respiratory failure The patient is supposed to be utilizing 2 L/min of supplemental oxygen. However, she states that a physician discontinued her supplemental oxygen. Nobody in the pulmonary medicine clinic stopped her supplemental oxygen. Therefore, I suspect highly that she will need to have it reordered upon discharge from the hospital. Okay to maintain oxygen saturations 88-92%. 3. Severe obstructive sleep apnea Split night study completed on September 22, 2017 showed that the patient has severe obstructive sleep apnea, and unfortunately due to limitations of the split-night study they were not able to appropriately determine BiPAP settings. It was suggested the patient be started on a BiPAP of 8/4. However, the patient did not wear the BiPAP for the remainder of the study. Therefore insurance coverage denied set up of the device until a complete titration study could be obtained. This has yet to be completed. 4. Tobacco dependency, currently in remission The patient does report that she quit smoking approximately 2 months ago. Per documentation from our nurse practitioner at the end of September 2017, the patient was still smoking cigarettes. Therefore, her remission status is questionable. This note was generated with [employer] software. It may contain incorrect words, spelling, and punctuation that were not noted in checking the note before signing. Code Visit Inpatient E&M: 46732 Subs Hosp L2
[2017-11-24] MEDS: HYDROcodone Bitartrate/Apap 5/325 Tablet PO ×3 (08:00→19:37)
[2017-11-24 08:01] LABS: Bedside Glucose 265 mg/dL (70-110)
[2017-11-24] MEDS: Insulin Lispro 100 UNIT/ML INSULN.PEN SC ×4 (08:01→21:43)
[2017-11-24] MEDS: Insulin Lispro 100 UNIT/ML INSULN.PEN 15 UNIT SC ×3 (08:03→16:37)
[2017-11-24] MEDS: Gabapentin 100 MG Capsule PO ×3 (08:03→16:38)
--- NOTE | 2017-11-24 08:58 | PCM.TXEXTCAR ---
- Diet 11/20/17 15:10 Diet: Cardiac/Low Cholesterol/ADA 1600 DIET Food consistency:: Regular Liquid Consistency:: Regular/Thin Is pt able to select menu?: Yes Diet Comments: NO CONCENTRATED SWEETS - Routine Orders/Code Status Enema Type: Fleetz Enema Frequency: Daily PRN Suppository Type: Dulcolax 10mg Suppository Frequency: Daily PRN O2 Liters per Minute: 2-4 O2 Frequency: Continuous Keep PO Greater than or Equal to (%): 88 - Goal 88-92% Routine Lab Work: - - Repeat CBC, BMP within 1 week. Continue q AC/HS accu checks with insulin regimen changes as needed given tapering steroid regimen w/ expected improvement in blood sugar levels. Code Status: Full Code - Suggestions for Active Care Change Position every (hours): 2 Hours to sit in a chair: 6 Times a day to sit in chair: 3 - Therapies Weight Bearing: Full weight bearing Physical Therapy: Eval and Treat Occupational Therapy: Eval and Treat - Problem/Diagnosis (1) Acute exacerbation of chronic obstructive pulmonary disease (COPD) Status: Acute Current Visit: No (2) Morbid obesity with BMI of 50.0-59.9, adult Status: Chronic Current Visit: Yes (3) ABDULLAHI (obstructive sleep apnea) Status: Chronic Current Visit: No (4) Tobacco dependence due to cigarettes Status: Resolved Current Visit: No (5) Non-compliance Status: Chronic Current Visit: No (6) Microcytic anemia Status: Chronic Current Visit: No (7) Syncope Status: Chronic Current Visit: No (8) Hypersomnia Status: Chronic Current Visit: No (9) Anemia Status: Chronic Current Visit: No (10) HTN (hypertension) Status: Chronic Current Visit: No (11) COPD (chronic obstructive pulmonary disease) Status: Chronic Current Visit: No (12) Chronic pain Status: Chronic Current Visit: No (13) Chronic atrial fibrillation Status: Chronic Current Visit: No (14) Chronic hypoxemic respiratory failure Status: Chronic Comment: non-compliant with oxygen Current Visit: No (15) Hyperlipemia Status: Chronic Current Visit: No (16) Type 2 diabetes mellitus Status: Chronic Comment: uncontrolled Current Visit: No (17) GERD (gastroesophageal reflux disease) Status: Chronic Current Visit: No (18) Anxiety Status: Chronic Current Visit: No - Allergies/Procedures Done in Hospital Allergies/Adverse Reactions: Allergies venom-honey bee [bee venom (honey bee)] Allergy (Verified 11/20/17 11:56) Swelling levofloxacin [From Levaquin] Adverse Reaction (Verified 11/20/17 11:56) Nausea oxycodone HCl [From Percocet] Adverse Reaction (Verified 11/20/17 11:56) Nausea Penicillins Adverse Reaction (Verified 11/20/17 11:56) Nausea/Vom/Diarrhea Procedures: EKG - Type of Care/Length of Stay Estimated LOS: Convalescent Care Less Than 30 days Type of Care Needed: Skilled Rehab Potential: Good Prognosis: Good - Additional Orders/Day of Discharge Additional Orders: (1) HOB. (2) Fall and aspiration precautions. (3) BIPAP 8/4 cm q HS and when sleeping. (4) Continue oxygen supplementation 2-4L NC with goal 88-92% oxygenation. (5) Continue scheduled short-acting insulin with overlapping ISS as needed. Currently also on increased long acting insulin with changes as needed per physician given transitioning on prednisone taper. Hgb 9.4% so uncontrolled prior to presentation. (6) Continue nutrition consultation for education and teaching. (7) Continue holter-monitor testing, was supposed to be done prior but she did not have it performed as chronic syncopal event history. Please contact Cardiology Dr. Mccormick if questions about this testing. H&P will serve as current which was dated: 11/20/17 Day of Discharge: 11/24/17 - Follow Up Care Primary Care Physician: Camden Burger [Primary Care Provider] - Please follow up with your Primary Care Physician in: Follow-up within 1-2 days SNF discharge and 3-5 days hospital discharge. Please Follow Up With: Brent Prasad DO When: Follow-up within 1-2 weeks. Please Follow Up With: Camden Mccormick MD When: Follow-up in 4 weeks after holter monitoring performed.
--- NOTE | 2017-11-24 09:12 | PCM.DC.SUM ---
Discharge Date and Diagnosis Date of Admission: 11/20/17 Date of Discharge: 11/24/17 - Primary Discharge Diagnosis (1) Chronic Hypoxic Respiratory Failure with Acute on Chronic COPD exacerbation, Non-compliant with oxygen therapy (2) Diabetes mellitus type II, Uncontrolled w/ Hyperglycemia secondary to Steroid Usage (3) History of Recurrent Syncopal Events (4) Cardiomyopathy Unclear Type (5) CAD (6) Permanent atrial fibrillation (7) Hypertension (8) Hyperlipidemia (9) Anxiety and Depression (10) History of Tobacco Abuse (11) Obesity (12) Chronic Hyponatremia (13) Asymptomatic VT (14) ABDULLAHI, Non-complaint with BIPAP - Secondary Discharge Diagnosis Chronic Problems (Last Reviewed 11/20/17 @ 15:04 by All Karimi DO) Morbid obesity with BMI of 50.0-59.9, adult (Chronic) ABDULLAHI (obstructive sleep apnea) (Chronic) Non-compliance (Chronic) Microcytic anemia (Chronic) Syncope (Chronic) Hypersomnia (Chronic) Anemia (Chronic) Hypomagnesemia (Chronic) HTN (hypertension) (Chronic) Morbid obesity with BMI of 40.0-44.9, adult (Chronic) COPD (chronic obstructive pulmonary disease) (Chronic) Chronic pain (Chronic) Chronic atrial fibrillation (Chronic) Chronic hypoxemic respiratory failure (Chronic) non-compliant with oxygen Hyperlipemia (Chronic) Type 2 diabetes mellitus (Chronic) uncontrolled GERD (gastroesophageal reflux disease) (Chronic) Anxiety (Chronic) Insomnia (Chronic) Hospital Course and Treatment Dr. Prasad Pulmonary Operations: None Procedures: EKG Summary of Care Provided: The patient is a 62 y/o F w/ PMHx: Obesity, History of Tobacco use prior, Anxiety and Depression, Chronic Hypoxic Respiratory Failure (2-3L NC baseline) w/ Chronic COPD, HTN, HLD, Diabetes mellitus type II, History of SVT, Permanent atrial fibrillation, CAD, Cardiomyopathy Unclear Type who presents to the [facility] on 11/21/17 as direct admission with history of progressively worsening dyspnea, non-productive cough, wheezing without improvement with aerosols x 4-5 days, notably concerning appearing when evaluated at her Cardiology office and referred to [facility] for evaluation and treatment for COPD exacerbation. Admitted to [facility], noted that she had been weaned off oxygen chronically over the last year, will maintain on oxygen with wean to RA as tolerated but expect likely need for oxygen supplementation upon discharge. Will continue ATC duonebs, PRN albuterol, IV solumedrol-->prednisone 11/24/17, defer abx given no marked CBC WBC elevation and afebrile, HOB, IS parameters w/ requested sputum cultures and preliminary respiratory viral panel with no organisms. Dr. Prasad 11/23/17 set-up of stacked aerosols to attempt to improve her status also with improvement. Noted also given her status/severity of COPD, okay to maintain saturations 88-92%. Re-evaluation this AM w/ transition from IV solumedrol to prednisone, encouraged PT and OT evaluation and had been declining prior w/ SNF versus home with home health at [facility] discharge today. Patient w/ Diabetes mellitus type II, Uncontrolled w/ Hyperglycemia secondary to Steroid Usage w/ Elevated BS upon presentation and given current steroid IV usage, increased previously added AM lantus in addition to her continued home q HS regimen, increased regimen again BID 11/23/17 with some improvement, HgbA1c 9.4% HgbA1c which has increased since 03/27/16 Hgb 8.5% noted, increased TID short acting regimen, ADA diet, accu checks w/ ISS. Transiting to oral prednisone w/ discharge plan BID lantus regimen w/ alterations pending repeat BS trending w/ taper of her steroids. Patient w/ history of Recurrent Syncopal Events w/ several admissions for syncopal events, 07/11/17 ECHO w/ hyperdynamic LV systolic function, EF 75%, mildly enlarged LA, mild to moderate mitral annular calcification, trivial MVI, trivial TBI, mild AVS, small pericardial effusion, no evidence of cardiac tamponade. Stress testing 05/13/17 with normal pharmacological myocardial perfusion stress testing. Patient was supposed to wear an event monitor recently but this did not occur. Follow-up with Cardiology as noted 11/20/17 resulting in transition for COPD admission. Have noted during current admission episodes of VT, short, primarily with exertion, requested CM/SW to set-up HM evaluation upon discharge w/ planned cardiology follow-up upon completion. Per Dr. Prasad patient w/ ABDULLAHI history, 09/22/17 study w/ severe ABDULLAHI. Trial BIPAP 09/19; however, patient non-compliant thus insurance coverage of device denied until completion of titration study which she has not performed. Will encourage completion of this study and follow-up with pulmonary with 1-2 weeks upon current discharge. Patient discharged in improved, near baseline condition w/ strong recommendations for PCP, Cardiology, Pulmonary follow-up with need for HM ongoing evaluation, repeat pulmonary assessment for ABDULLAHI setting changes, continued steroid usage with taper, improved BS control with regimen changes. Given patient limited ability with PT and OT strongly encouraged retirement facility which patient was amenable to setting up. Oxygenation testing performed prior to discharge with noted 87-88% on room air at rest only with encouraged compliance with oxygen supplementation. Home Medications: Medications to take at Discharge Albuterol Aerosols [Ventolin Aerosols] 2.5 mg INHALATION Q2H PRN PRN 05/12/17 Atorvastatin Calcium [Lipitor] 40 mg PO QHS 05/12/17 Budesonide/Formoterol 160/4.5 [Symbicort 160/4.5 Mcg Inhaler (SP)] 2 puff INHALATION BID 05/12/17 Bupropion HCl [Bupropion HCl Sr] 150 mg PO BID 05/12/17 Buspirone HCl 10 mg PO TID 05/12/17 Digoxin 250 mcg PO DAILY 05/12/17 Diltiazem [Cardizem] 120 mg PO BID 05/12/17 Famotidine [Pepcid] 20 mg PO BID 05/12/17 Furosemide [Lasix] 40 mg PO BID 05/12/17 Glucagon,Human Recombinant [Glucagon Emergency Kit] 1 mg IM PRN PRN 05/12/17 Guaifenesin [Mucinex] 1,200 mg PO BID 05/12/17 Ipratropium/Albuterol Sulfate [Duoneb] 3 ml INHALATION Q4H.RT 05/12/17 Lisinopril [Prinivil] 5 mg PO DAILY 05/12/17 Propranolol HCl [Inderal (Beta Rubén)] 10 mg PO BID 05/12/17 Sennosides/Docusate Sodium [Senna-Docusate Sodium Tablet] 2 tab PO DAILY PRN PRN 05/12/17 Mag Hydrox/Al Hydrox/Simeth [Mylanta II] 30 ml PO Q6H PRN PRN 08/11/17 Polyethylene Glycol 3350 [Miralax] 17 gm PO DAILY 08/11/17 docusate sodium 100 mg capsule 100 mg PO QHS 09/01/17 gabapentin 100 mg capsule 100 mg PO TID cap 09/01/17 Spironolactone [Aldactone] 25 mg PO BID 11/01/17 Benzonatate [Tessalon Perle] 100 mg PO TID PRN PRN 11/02/17 Nitroglycerin 0.4 mg SL X1 11/02/17 Rivaroxaban [Xarelto] 20 mg PO DAILY #0 11/03/17 Calcium Carbonate [Tums] 500 - 1,000 mg PO Q6H PRN PRN 11/20/17 acetaminophen 325 mg capsule 650 mg PO Q6H PRN cap 11/20/17 Acetaminophen [Tylenol Tablet] 650 mg PO Q6H PRN PRN tablet 11/24/17 Hydrocodone Bitart/Apap 5-325 [[place] 5/325] 1 tab PO Q6H PRN PRN 3 Days #12 tab 11/24/17 Insulin Glargine,Hum.rec.anlog [Lantus Solostar] 60 unit SQ BID #0 11/24/17 Insulin Lispro [Humalog KwikPen] 15 unit SC TIDCM insuln.pen 11/24/17 Insulin Lispro [Humalog KwikPen] See Protocol SC 4X/DAYCM insuln.pen 11/24/17 Prednisone 10 mg PO UD #30 tablet 11/24/17 Following Prescrptions Were Given to Patient: Hydrocodone Bitart/Apap 5-325 [[place] 5/325] 1 tab PO Q6H PRN PRN 3 Days #12 tab PRN Reason: Pain Prednisone 10 mg PO UD #30 tablet Primary Care Physician: Camden Burger [Primary Care Provider] - Please follow up with your Primary Care Physician in: Follow-up within 1-2 days SNF discharge and 3-5 days hospital discharge. Please Follow Up With: Brent Prasad DO When: Follow-up within 1-2 weeks. Please Follow Up With: Camden Mccormick MD When: Follow-up in 4 weeks after holter monitoring performed. Disposition: Intermediate facility Minutes spent on discharge:: 35 Patient Condition:: Fair Medical Necessity - Tobacco Use Smoking Status: Former smoker Tobacco Use: Cigarettes Meaningful Use Info Meaningful Use Diagnoses (Choose all that apply): None applicable Code Visit Inpatient E&M: 06537 Disch Hosp
--- NOTE | 2017-11-24 09:16 | DS.PCM_ITS ---
Discharge Date and Diagnosis Date of Admission: 11/20/17 Date of Discharge: 11/24/17 - Primary Discharge Diagnosis (1) Chronic Hypoxic Respiratory Failure with Acute on Chronic COPD exacerbation, Non-compliant with oxygen therapy (2) Diabetes mellitus type II, Uncontrolled w/ Hyperglycemia secondary to Steroid Usage (3) History of Recurrent Syncopal Events (4) Cardiomyopathy Unclear Type (5) CAD (6) Permanent atrial fibrillation (7) Hypertension (8) Hyperlipidemia (9) Anxiety and Depression (10) History of Tobacco Abuse (11) Obesity (12) Chronic Hyponatremia (13) Asymptomatic VT (14) ABDULLAHI, Non-complaint with BIPAP - Secondary Discharge Diagnosis Chronic Problems (Last Reviewed 11/20/17 @ 15:04 by All Karimi DO) Morbid obesity with BMI of 50.0-59.9, adult (Chronic) ABDULLAHI (obstructive sleep apnea) (Chronic) Non-compliance (Chronic) Microcytic anemia (Chronic) Syncope (Chronic) Hypersomnia (Chronic) Anemia (Chronic) Hypomagnesemia (Chronic) HTN (hypertension) (Chronic) Morbid obesity with BMI of 40.0-44.9, adult (Chronic) COPD (chronic obstructive pulmonary disease) (Chronic) Chronic pain (Chronic) Chronic atrial fibrillation (Chronic) Chronic hypoxemic respiratory failure (Chronic) non-compliant with oxygen Hyperlipemia (Chronic) Type 2 diabetes mellitus (Chronic) uncontrolled GERD (gastroesophageal reflux disease) (Chronic) Anxiety (Chronic) Insomnia (Chronic) Hospital Course and Treatment Dr. Prasad Pulmonary Operations: None Procedures: EKG Summary of Care Provided: The patient is a 62 y/o F w/ PMHx: Obesity, History of Tobacco use prior, Anxiety and Depression, Chronic Hypoxic Respiratory Failure (2-3L NC baseline) w/ Chronic COPD, HTN, HLD, Diabetes mellitus type II, History of SVT, Permanent atrial fibrillation, CAD, Cardiomyopathy Unclear Type who presents to the [facility] on 11/21/17 as direct admission with history of progressively worsening dyspnea, non-productive cough, wheezing without improvement with aerosols x 4-5 days, notably concerning appearing when evaluated at her Cardiology office and referred to [facility] for evaluation and treatment for COPD exacerbation. Admitted to [facility], noted that she had been weaned off oxygen chronically over the last year, will maintain on oxygen with wean to RA as tolerated but expect likely need for oxygen supplementation upon discharge. Will continue ATC duonebs, PRN albuterol, IV solumedrol-->prednisone 11/24/17, defer abx given no marked CBC WBC elevation and afebrile, HOB, IS parameters w/ requested sputum cultures and preliminary respiratory viral panel with no organisms. Dr. Prasad 11/23/17 set-up of stacked aerosols to attempt to improve her status also with improvement. Noted also given her status/severity of COPD, okay to maintain saturations 88-92%. Re-evaluation this AM w/ transition from IV solumedrol to prednisone, encouraged PT and OT evaluation and had been declining prior w/ SNF versus home with home health at [facility] discharge today. Patient w/ Diabetes mellitus type II, Uncontrolled w/ Hyperglycemia secondary to Steroid Usage w/ Elevated BS upon presentation and given current steroid IV usage, increased previously added AM lantus in addition to her continued home q HS regimen, increased regimen again BID 11/23/17 with some improvement, HgbA1c 9.4% HgbA1c which has increased since 03/27/16 Hgb 8.5% noted, increased TID short acting regimen, ADA diet, accu checks w/ ISS. Transiting to oral prednisone w/ discharge plan BID lantus regimen w/ alterations pending repeat BS trending w/ taper of her steroids. Patient w/ history of Recurrent Syncopal Events w/ several admissions for syncopal events, 07/11/17 ECHO w/ hyperdynamic LV systolic function, EF 75%, mildly enlarged LA, mild to moderate mitral annular calcification, trivial MVI, trivial TBI, mild AVS, small pericardial effusion, no evidence of cardiac tamponade. Stress testing 05/13/17 with normal pharmacological myocardial perfusion stress testing. Patient was supposed to wear an event monitor recently but this did not occur. Follow-up with Cardiology as noted 11/20/17 resulting in transition for COPD admission. Have noted during current admission episodes of VT, short, primarily with exertion, requested CM/SW to set-up HM evaluation upon discharge w/ planned cardiology follow-up upon completion. Per Dr. Prasad patient w/ ABDULLAHI history, 09/22/17 study w/ severe ABDULLAHI. Trial BIPAP 09/19; however, patient non-compliant thus insurance coverage of device denied until completion of titration study which she has not performed. Will encourage completion of this study and follow-up with pulmonary with 1-2 weeks upon current discharge. Patient discharged in improved, near baseline condition w/ strong recommendations for PCP, Cardiology, Pulmonary follow-up with need for HM ongoing evaluation, repeat pulmonary assessment for ABDULLAHI setting changes, continued steroid usage with taper, improved BS control with regimen changes. Given patient limited ability with PT and OT strongly encouraged residential facility which patient was amenable to setting up. Oxygenation testing performed prior to discharge with noted 87-88% on room air at rest only with encouraged compliance with oxygen supplementation. Home Medications: Medications to take at Discharge Albuterol Aerosols [Ventolin Aerosols] 2.5 mg INHALATION Q2H PRN PRN 05/12/17 Atorvastatin Calcium [Lipitor] 40 mg PO QHS 05/12/17 Budesonide/Formoterol 160/4.5 [Symbicort 160/4.5 Mcg Inhaler (SP)] 2 puff INHALATION BID 05/12/17 Bupropion HCl [Bupropion HCl Sr] 150 mg PO BID 05/12/17 Buspirone HCl 10 mg PO TID 05/12/17 Digoxin 250 mcg PO DAILY 05/12/17 Diltiazem [Cardizem] 120 mg PO BID 05/12/17 Famotidine [Pepcid] 20 mg PO BID 05/12/17 Furosemide [Lasix] 40 mg PO BID 05/12/17 Glucagon,Human Recombinant [Glucagon Emergency Kit] 1 mg IM PRN PRN 05/12/17 Guaifenesin [Mucinex] 1,200 mg PO BID 05/12/17 Ipratropium/Albuterol Sulfate [Duoneb] 3 ml INHALATION Q4H.RT 05/12/17 Lisinopril [Prinivil] 5 mg PO DAILY 05/12/17 Propranolol HCl [Inderal (Beta Rubén)] 10 mg PO BID 05/12/17 Sennosides/Docusate Sodium [Senna-Docusate Sodium Tablet] 2 tab PO DAILY PRN PRN 05/12/17 Mag Hydrox/Al Hydrox/Simeth [Mylanta II] 30 ml PO Q6H PRN PRN 08/11/17 Polyethylene Glycol 3350 [Miralax] 17 gm PO DAILY 08/11/17 docusate sodium 100 mg capsule 100 mg PO QHS 09/01/17 gabapentin 100 mg capsule 100 mg PO TID cap 09/01/17 Spironolactone [Aldactone] 25 mg PO BID 11/01/17 Benzonatate [Tessalon Perle] 100 mg PO TID PRN PRN 11/02/17 Nitroglycerin 0.4 mg SL X1 11/02/17 Rivaroxaban [Xarelto] 20 mg PO DAILY #0 11/03/17 Calcium Carbonate [Tums] 500 - 1,000 mg PO Q6H PRN PRN 11/20/17 acetaminophen 325 mg capsule 650 mg PO Q6H PRN cap 11/20/17 Acetaminophen [Tylenol Tablet] 650 mg PO Q6H PRN PRN tablet 11/24/17 Hydrocodone Bitart/Apap 5-325 [[place] 5/325] 1 tab PO Q6H PRN PRN 3 Days #12 tab 11/24/17 Insulin Glargine,Hum.rec.anlog [Lantus Solostar] 60 unit SQ BID #0 11/24/17 Insulin Lispro [Humalog KwikPen] 15 unit SC TIDCM insuln.pen 11/24/17 Insulin Lispro [Humalog KwikPen] See Protocol SC 4X/DAYCM insuln.pen 11/24/17 Prednisone 10 mg PO UD #30 tablet 11/24/17 Following Prescrptions Were Given to Patient: Hydrocodone Bitart/Apap 5-325 [[place] 5/325] 1 tab PO Q6H PRN PRN 3 Days #12 tab PRN Reason: Pain Prednisone 10 mg PO UD #30 tablet Primary Care Physician: Camden Burger [Primary Care Provider] - Please follow up with your Primary Care Physician in: Follow-up within 1-2 days SNF discharge and 3-5 days hospital discharge. Please Follow Up With: Brent Prasad DO When: Follow-up within 1-2 weeks. Please Follow Up With: Camden Mccormick MD When: Follow-up in 4 weeks after holter monitoring performed. Disposition: [facility] Minutes spent on discharge:: 35 Patient Condition:: Fair Medical Necessity - Tobacco Use Smoking Status: Former smoker Tobacco Use: Cigarettes Meaningful Use Info Meaningful Use Diagnoses (Choose all that apply): None applicable Code Visit Inpatient E&M: 08785 Disch Hosp
[2017-11-24] MEDS: Spironolactone 25 MG Tablet PO ×2 (10:01→18:46)
[2017-11-24] MEDS: dilTIAZem CD 120 MG Capsule PO ×2 (10:02→21:42)
[2017-11-24] MEDS: Digoxin 250 MCG Tablet PO (10:04)
[2017-11-24] MEDS: Propranolol 10 MG Tablet PO ×2 (10:07→21:42)
[2017-11-24] MEDS: Furosemide 40 MG Tablet PO ×2 (10:07→18:46)
[2017-11-24] MEDS: Famotidine 20 MG Tablet PO ×2 (10:08→21:42)
[2017-11-24] MEDS: guaiFENesin 1,200 MG Tablet 1200 MG PO ×2 (10:08→21:42)
[2017-11-24] MEDS: Lisinopril 5 MG Tablet PO (10:09)
[2017-11-24] MEDS: buPROPion (SR) 150 MG Tablet.SA PO ×2 (10:09→21:42)
--- NOTE | 2017-11-24 11:28 | CASEMGMT ---
Addendum entered by Madeline Dominguez 11/24/17 12:04: LUIS placed a call to [facility] and spoke with Zulema. Zulema states Trudy has left the building and should be back in about an hour. LUIS will call Trudy at [facility] later to see if she is able to accept pt. Original Note: Social Work Note Per physician, pt is now agreeable to short term stay at SNF before returning to [facility]. SW in to confirm discharge plans with pt. Pt confirms that she is agreeable to first choice [facility] or second choice [facility] for SNF. SW explained referral process and LOC. Pt states understanding. SW faxed referral to [facility]. LUIS received message from Hugo at [facility] stating they don't have an appropriate bed for pt at this time. LUIS faxed referral to [facility]. Plan: [facility] pending acceptance and LOC Madeline Dominguez CONTROLS OPERATOR [employer]ED GOODS, SURVEY SUPERVISOR
[2017-11-24] MEDS: predniSONE 20 MG Tablet 40 MG PO (11:43)
[2017-11-24 11:55] LABS: Bedside Glucose 358 mg/dL (70-110)
--- NOTE | 2017-11-24 15:50 | CASEMGMT ---
Social Work Note LUIS spoke with Trudy at [facility] stating she is able to accept pt and pt is showing up as having [employer] insurance. This worker informed Trudy that on this worker's reports it is showing that pt has straight Medicaid. Trudy states that she will confirm insurance for pt and if pt has [employer] she will submit for pre-cert. LUIS placed a call back to Trudy at [facility] who confirms pt has [employer] and she has submitted for pre-cert. Plan: [facility] pending pre-cert. Madeline Dominguez SENIOR SCHEDULER, PUBLIC INTERVIEWER
[2017-11-24] MEDS: Rivaroxaban 20 MG Tablet PO (16:39)
[2017-11-24 16:51] LABS: Bedside Glucose 230 mg/dL (70-110)
[2017-11-24] MEDS: Atorvastatin Calcium 40 MG Tablet PO (21:42)
[2017-11-24] MEDS: Docusate Sodium 100 MG Capsule PO (21:42)
[2017-11-24 22:05] LABS: Bedside Glucose 191 mg/dL (70-110)
[2017-11-25] VITALS (10 sets, daily range): BP systolic 104–126; BP diastolic 60–79; PULSE 70–90; RESP 18–24; TEMP 36.5–37; O2SAT 91–93
[2017-11-25] MEDS: HYDROcodone Bitartrate/Apap 5/325 Tablet PO ×3 (02:30→17:49)
[2017-11-25] MEDS: Ipratropium/Albuterol Sulfate 3 ML AMPUL.NEB INHALATION ×6 (02:48→22:53)
[2017-11-25] MEDS: busPIRone 5 MG Tablet 10 MG PO ×3 (05:27→21:22)
[2017-11-25 06:25] LABS: Absolute Lymphocyte Count 3.57 X10^3/ul (0.83-4.51); Absolute Neutrophil Count 10.7 X10^3/uL (2.0-7.7); Basophil# 0.01 X10^3/uL; Basophil% 0.1 % (0-1); Eosinophil# 0.01 X10^3/uL; Eosinophils% 0.1 % (0-5); Hemoglobin 12.6 g/dl (12.0-15.0); Lymphocyte # 3.57 X10^3/ul (4.0); Mean Corp Hgb Conc 33.2 g/gl (32-36); Mean Corpuscular Volume 81.4 fL (81-99); Mean Platelet Vol. 10.8 fl (6.2-12.0); Monocyte# 1.76 X10^3/uL; Monocyte% 10.9 % (0-10); Neutrophil # 10.72 X10^3/uL (2.7-7.7); Neutrophil % 66.1 % (47-70); Platelet Count 331 K/mm3 (150-450); RBC Distribution Width CV 16.7 % (11.6-14.6); RBC Distribution Width SD 49.8 fl (35.1-43.9); Red Blood Count 4.67 M/mm3 (4.2-5.4); White Blood Count 16.2 K/mm3 (4.4-11.0)
[2017-11-25 06:27] LABS: Differential Indicated SCAN CRITERIA MET; POSITIVE COUNT NO; POSITIVE DIFFERENTIAL YES; POSITIVE MORPHOLOGY NO
[2017-11-25 06:29] LABS: Anion Gap 8 (5-15); BUN 35 mg/dL (7-18); BUN/Creat Ratio 40.8 RATIO (10-20); Calcium,Total 8.9 mg/dL (8.5-10.1); Chloride 100 mmol/L (98-107); Creatinine, Serum 0.86 mg/dL (0.55-1.02); EST Glomerular Filtration Rate 71 mL/min (>60); Est Glom Filt Rate - Afr Amer 86 mL/min (>60); Estimated Creatinine Clearance 51.18 ml/min; Glucose 87 mg/dL (74-106); Potassium 4.5 mmol/L (3.5-5.1); Sodium Level 136 mmol/L (136-145)
[2017-11-25] MEDS: Budesonide Respules 0.5 MG/2 ML AMPUL.NEB. INHALATION ×2 (07:00→19:52)
[2017-11-25] MEDS: predniSONE 20 MG Tablet 40 MG PO (08:03)
[2017-11-25] MEDS: Gabapentin 100 MG Capsule PO ×3 (08:03→17:51)
[2017-11-25 08:21] LABS: Bedside Glucose 116 mg/dL (70-110)
[2017-11-25 08:21] LABS: Bedside Glucose 59 mg/dL (70-110)
--- NOTE | 2017-11-25 08:56 | PCM.PN.HOSP ---
Subjective: The patient is a 62 y/o F w/ PMHx: Obesity, History of Tobacco use prior, Anxiety and Depression, Chronic Hypoxic Respiratory Failure (2-3L NC baseline) w/ Chronic COPD, HTN, HLD, Diabetes mellitus type II, History of SVT, Permanent atrial fibrillation, CAD, Cardiomyopathy Unclear Type who presents to the [facility] on 11/21/17 as direct admission with history of progressively worsening dyspnea, non-productive cough, wheezing without improvement with aerosols x 4-5 days, notably concerning appearing when evaluated at her Cardiology office and referred to [facility] for evaluation and treatment for COPD exacerbation. Admitted to [place], noted that she had been weaned off oxygen chronically over the last year, will maintain on oxygen with wean to RA as tolerated but expect likely need for oxygen supplementation upon discharge. Will continue ATC duonebs, PRN albuterol, IV solumedrol-->prednisone 11/24/17, defer abx given no marked CBC WBC elevation and afebrile, HOB, IS parameters w/ requested sputum cultures and preliminary respiratory viral panel with no organisms. Dr. Prasad 11/23/17 set-up of stacked aerosols to attempt to improve her status also with improvement. Noted also given her status/severity of COPD, okay to maintain saturations 88-92%. 11/24/17 transition to prednisone as noted with continued pulmonary improvement. PT, OT evaluation w/ recommendation for SNF which was discussed with patient and amenable. Awaiting insurance approval for transition. Of note, elevated BS upon presentation in setting of steroid IV usage, increased previously, had transiently increased lantus and short acting with now hypoglycemia s/p transition to prednisone, discussed HgBA1c elevation 9.4% HgbA1c which has increased since 03/27/16 Hgb 8.5% noted, decreased to home q HS regimen and decrease to lower dose AM lantus w/ return to prior home TID CM short-acting regimen. Recommendation at SNF to continue close BS monitoring and further regimen adjustments as needed to achieve appropriate BS. Also, several admissions for syncopal events, 07/11/17 ECHO w/ hyperdynamic LV systolic function, EF 75%, mildly enlarged LA, mild to moderate mitral annular calcification, trivial MVI, trivial TBI, mild AVS, small pericardial effusion, no evidence of cardiac tamponade. Stress testing 05/13/17 with normal pharmacological myocardial perfusion stress testing. Patient was supposed to wear an event monitor recently but this did not occur. Follow-up with Cardiology as noted 11/20/17 resulting in transition for COPD admission. During current admission episodes of VT, short, primarily with exertion, CM/SW arranged set-up HM evaluation upon discharge to SNF w/ planned cardiology follow-up upon completion. Also, per Dr. Prasad patient w/ ABDULLAHI history, 09/22/17 study w/ severe ABDULLAHI. Trial BIPAP 09/19; however, patient non-compliant thus insurance coverage of device denied until completion of titration study which she has not performed. Will encourage completion of this study and follow-up with pulmonary with 1-2 weeks upon current discharge. Patient this morning with hypoglycemia and symptomatic secondary to this otherwise notes breathing has improved but still some and's between expiratory wheezing but nearing baseline. Patient remains amenable to half-way facility transition once insurance approval obtained. Discussed plan for de-escalation of long-acting and short-acting insulin now that off Solu-Medrol and blood sugars have improved. Discussed her hemoglobin A1c which is still elevated with need for continued improvement. Patient denies fevers, chills, nausea, emesis, abdominal pain, chest pain. Objective: Physical Examination: General: awake, alert, oriented x 3 and cooperative, seated upright in bed, looks fatigued, recent low BS. Skin: normal color, turgor, no icterus, cyanosis. HEENT: AT/NC, EOMI, PERRLA, MMM. Lungs: Improved air movement, diminished bases, improved effort, decreased wheezing, nearing baseline. Heart: Irregular, rate controlled; no gallop, rub audible. Abdomen: soft, obese, NTTP, ND, normal BS. Extremities: no cyanosis, clubbing, BL LE ankle edema decreased. Neurological: patient awake, alert, oriented x 3; cognitive function intact; pupils equally reactive to light and accomodation; cranial nerves II-XII grossly normal, moving all 4 extremities, no focal deficits, strength improving, moderately globally decreased. Psychiatric: affect appears fatigued, recent low BS, no acute evidence of depressive or anxiety feelings. Vitals/I&O's: Vital Signs Temp Pulse Resp BP Pulse Ox 97.9 F 80 18 126/79 H 93 11/25/17 08:00 11/25/17 08:00 11/25/17 08:00 11/25/17 08:00 11/25/17 08:00 Oxygen Flow Rate (L/min) 2 Oxygen Delivery Method Room Air Weight: 205 lb 14.588 oz Body Mass Index (BMI) 38.9 Finger Stick Blood Glucose 364 Intake and Output for Last 24 Hours 11/23/17 11/24/17 11/25/17 23:59 23:59 23:59 Intake Total 1000 / 1000 1620 / 1620 300 / 300 Output Total 2995 / 2995 2250 / 2250 900 / 900 Balance -1994 / -1994 -630 / -630 -600 / -600 Microbiology Past 72 Hours 11/21/17 07:18 Mucosa - Nasopharyngeal Respiratory Panel (PCR) - Final Laboratory Results 11/24/17 11:34: POC Glucose 358 H 11/24/17 16:34: POC Glucose 230 H 11/24/17 21:41: POC Glucose 191 H 11/25/17 05:25: WBC 16.2 H, RBC 4.67, Hgb 12.6, Hct 38.0, MCV 81.4, MCH 27.0, MCHC 33.2, RDW 16.7 H, RDW Differential 49.8 H, Plt Count 331, MPV 10.8, Immature Gran % (Auto) 0.800, Neut % (Auto) 66.1, Lymph % (Auto) 22.0, Rawlins % (Auto) 10.9 H, Eos % (Auto) 0.1, Baso % (Auto) 0.1, Absolute Neuts (auto) 10.7 H, Absolute Lymphs (auto) 3.57, Total Counted Not Reportable 11/25/17 05:25: Sodium 136, Potassium 4.5, Chloride 100, Carbon Dioxide 28.0, Anion Gap 8, BUN 35 H, Creatinine 0.86, Estim Creat Clear Calc 51.18, Est GFR (MDRD) Af Amer 86, Est GFR (MDRD) Non-Af 71, BUN/Creatinine Ratio 40.8 H, Glucose 87, Calcium 8.9 11/25/17 07:55: POC Glucose 59 L 11/25/17 08:16: POC Glucose 116 H Current Medications Acetaminophen (Tylenol) 650 mg PO Q6H PRN PRN PRN Reason: Mild Pain (scale 0-3)/T>100.7 Last Admin: 11/23/17 20:20 Dose: 650 mg Hydrocodone Bitart/Acetaminophen (Vance 5mg-325mg) 1 tablet PO Q6H PRN PRN PRN Reason: PAIN Last Admin: 11/25/17 02:30 Dose: 1 tablet Al Hydroxide/Mg Hydroxide (Mylanta Ii) 30 ml PO Q6H PRN PRN PRN Reason: DYSPEPSIA/INDIGESTION Albuterol Sulfate (Ventolin Aerosols) 2.5 mg INHALATION Q2H PRN PRN PRN Reason: COUGH/SOB Albuterol/Ipratropium (Duoneb) 3 ml INHALATION Q4H.RT [facility] Last Admin: 11/25/17 06:59 Dose: 3 ml Atorvastatin Calcium (Lipitor) 40 mg PO QHS [facility] Last Admin: 11/24/17 21:42 Dose: 40 mg Benzonatate (Tessalon Perle) 100 mg PO TID PRN PRN PRN Reason: COUGH Last Admin: 11/22/17 18:30 Dose: 100 mg Budesonide (Pulmicort Aerosol) 0.5 mg INHALATION Q12H.RT [facility] Last Admin: 11/25/17 07:00 Dose: 0.5 mg Bupropion HCl (Wellbutrin Sr (150mg Tablets)) 150 mg PO BID [facility] Last Admin: 11/24/17 21:42 Dose: 150 mg Buspirone HCl (Buspar) 10 mg PO TID [facility] Last Admin: 11/25/17 05:27 Dose: 10 mg Calcium Carbonate (Tums) 500 - 1,000 mg PO Q6H PRN PRN PRN Reason: HEART BURN Dextrose (D50w Syringe) 0 gm IV X1 PRN; Protocol PRN Reason: Hypoglycemia Digoxin (Lanoxin) 250 mcg PO DAILY [facility] Last Admin: 11/24/17 10:04 Dose: 250 mcg Diltiazem HCl (Cardizem Cd) 120 mg PO BID [facility] Last Admin: 11/24/17 21:42 Dose: 120 mg Docusate Sodium (Colace) 100 mg PO QHS [facility] Last Admin: 11/24/17 21:42 Dose: 100 mg Famotidine (Pepcid) 20 mg PO BID [facility] Last Admin: 11/24/17 21:42 Dose: 20 mg Furosemide (Lasix) 40 mg PO BIDLX [facility] Last Admin: 11/24/17 18:46 Dose: 40 mg Gabapentin (Neurontin) 100 mg PO TIDCM [facility] Last Admin: 11/25/17 08:03 Dose: 100 mg Glucagon () 1 mg IM .X1 PRN PRN Reason: Hypoglycemia Guaifenesin (Mucinex) 1,200 mg PO BID [facility] Last Admin: 11/24/17 21:42 Dose: 1,200 mg Insulin Glargine (Lantus (Bkc)) 60 units SC QHS [facility] Insulin Glargine (Lantus (Bkc)) 10 units SC DAILY [facility] Insulin Human Lispro (Humalog Kwikpen (Bkc)) 0 unit SC 4X/DAYCM [facility]; Protocol Last Admin: 11/25/17 08:02 Dose: Not Given Insulin Human Lispro (Humalog Kwikpen (Bkc)) 12 unit SC TIDCM [facility] Lisinopril (Zestril) 5 mg PO DAILY [facility] Last Admin: 11/24/17 10:09 Dose: 5 mg Magnesium Hydroxide (Milk Of Magnesia) 30 ml PO DAILY PRN PRN PRN Reason: Constipation Ondansetron HCl (Zofran) 4 mg IV Q8H PRN PRN PRN Reason: Nausea Polyethylene Glycol (Miralax) 17 gm PO DAILY [facility] Last Admin: 11/24/17 10:08 Dose: Not Given Prednisone () 40 mg PO DAILY@0800 [facility] Last Admin: 11/25/17 08:03 Dose: 40 mg Propranolol HCl (Inderal) 10 mg PO BID [facility] Last Admin: 11/24/17 21:42 Dose: 10 mg Rivaroxaban (Xarelto) 20 mg PO DAILY@1700 [facility] Last Admin: 11/24/17 16:39 Dose: 20 mg Senna/Docusate Sodium (Senokot-S, Estefania-Colace) 2 tablet PO DAILY PRN PRN PRN Reason: Constipation Sodium Chloride () 5 - 30 ml IV UD PRN PRN Reason: SALINE FLUSH Last Admin: 11/23/17 06:42 Dose: 10 ml Spironolactone (Aldactone) 25 mg PO BIDLX [facility] Last Admin: 11/24/17 18:46 Dose: 25 mg Medical Necessity - Tobacco Use Smoking Status: Former smoker Tobacco Use: Cigarettes Assessment/Plan All Active Problems (Last Reviewed 11/20/17 @ 15:04 by All Karimi DO) Abdominal pain (Acute) Acute exacerbation of chronic obstructive pulmonary disease (COPD) (Acute) Tobacco dependence due to cigarettes (Resolved) Chest pain (Acute) Chest pain (Acute) Acute and chronic respiratory failure with hypoxia (Resolved) Acute bronchitis due to human metapneumovirus (Resolved) Atrial fibrillation with RVR (Resolved) COPD with acute exacerbation (Resolved) Gram-negative pneumonia (Resolved) Cardiomyopathy (Ruled-out) The patient is a 62 y/o F w/ PMHx: Obesity, History of Tobacco use prior, Anxiety and Depression, Chronic Hypoxic Respiratory Failure (2-3L NC baseline) w/ Chronic COPD, HTN, HLD, Diabetes mellitus type II, History of SVT, Permanent atrial fibrillation, CAD, Cardiomyopathy Unclear Type who presents to the [facility] on 11/21/17 as direct admission with history of progressively worsening dyspnea, non-productive cough, wheezing without improvement with aerosols x 4-5 days, notably concerning appearing when evaluated at her Cardiology office and referred to [facility] for evaluation and treatment for COPD exacerbation. (1) Chronic Hypoxic Respiratory Failure with Acute on Chronic COPD exacerbation: Admitted to [place], noted that she had been weaned off oxygen chronically over the last year, will maintain on oxygen with wean to RA as tolerated but expect likely need for oxygen supplementation upon discharge. Will continue ATC duonebs, PRN albuterol, IV solumedrol-->prednisone 11/24/17, defer abx given no marked CBC WBC elevation and afebrile, HOB, IS parameters w/ requested sputum cultures and preliminary respiratory viral panel with no organisms. Dr. Prasad 11/23/17 set-up of stacked aerosols to attempt to improve her status also with improvement. Noted also given her status/severity of COPD, okay to maintain saturations 88-92%. 11/24/17 transition to prednisone as noted with continued pulmonary improvement. PT, OT evaluation w/ recommendation for SNF which was discussed with patient and amenable. Awaiting insurance approval for transition. (2) Diabetes mellitus type II, Uncontrolled w/ Hyperglycemia secondary to Steroid Usage: Elevated BS upon presentation in setting of steroid IV usage, increased previously, had transiently increased lantus and short acting with now hypoglycemia s/p transition to prednisone, discussed HgBA1c elevation 9.4% HgbA1c which has increased since 03/27/16 Hgb 8.5% noted, decreased to home q HS regimen and decrease to lower dose AM lantus w/ return to prior home TID CM short-acting regimen. Recommendation at SNF to continue close BS monitoring and further regimen adjustments as needed to achieve appropriate BS. (3) Recurrent Syncopal Events: Several admissions for syncopal events, 07/11/17 ECHO w/ hyperdynamic LV systolic function, EF 75%, mildly enlarged LA, mild to moderate mitral annular calcification, trivial MVI, trivial TBI, mild AVS, small pericardial effusion, no evidence of cardiac tamponade. Stress testing 05/13/17 with normal pharmacological myocardial perfusion stress testing. Patient was supposed to wear an event monitor recently but this did not occur. Follow-up with Cardiology as noted 11/20/17 resulting in transition for COPD admission. During current admission episodes of VT, short, primarily with exertion, CM/SW arranged set-up HM evaluation upon discharge to SNF w/ planned cardiology follow-up upon completion. (4) Cardiomyopathy Unclear Type: Prior ECHO w/ EF 45-50%, recent 07/11/17 ECHO w/ hyperdynamic LV systolic function, EF 75%, mildly enlarged LA, mild to moderate mitral annular calcification, trivial MVI, trivial TBI, mild AVS, small pericardial effusion, no evidence of cardiac tamponade. Stress testing 05/13/17 with normal pharmacological myocardial perfusion stress testing. Admission BNP normal level, CXR with chronic changes. (5) CAD: Will continue home regimen asa, statin, BB. Stress testing 05/13/17 with normal pharmacological myocardial perfusion stress testing. (6) Permanent atrial fibrillation: Continue home regimen digoxin, propranolol, cardizem, xarelto regimen. (7) Hypertension: Continue home regimen including propranolol, lisinopril, lasix, cardizem, spironolactone regimen. (8) Hyperlipidemia: Continue home statin regimen. (9) Anxiety and Depression: Continue home regimen buspar, wellbutrin. (10) History of Tobacco Abuse: Encouraged continued cessation, off x 2 months now but this has been intermittent. (11) Obesity: Weight loss and lifestyle changes encouraged. (12) Chronic Hyponatremia: Admission Na 132, similar to prior, repeat Na 136, stable. (13) Asymptomatic VT: Short burst, primarily with exertion, mag supplemented, continue to monitor, on BB. (14) ABDULLAHI: Per Dr. Prasad patient w/ ABDULLAHI history, 8/7/18 study w/ severe ABDULLAHI. Trial BIPAP 09/19; however, patient non-compliant thus insurance coverage of device denied until completion of titration study which she has not performed. Will encourage completion of this study and follow-up with pulmonary with 1-2 weeks upon current discharge. (15) DVT prophylaxis: SCDs, xarelto. Code Visit Inpatient E&M: 94276 Subs Hosp L2
[2017-11-25] MEDS: Spironolactone 25 MG Tablet PO ×2 (10:34→17:52)
[2017-11-25] MEDS: Digoxin 250 MCG Tablet PO (10:34)
[2017-11-25] MEDS: buPROPion (SR) 150 MG Tablet.SA PO ×2 (10:36→21:22)
[2017-11-25] MEDS: Lisinopril 5 MG Tablet PO (10:36)
[2017-11-25] MEDS: guaiFENesin 1,200 MG Tablet 1200 MG PO ×2 (10:36→21:22)
[2017-11-25] MEDS: Furosemide 40 MG Tablet PO ×2 (10:36→17:52)
[2017-11-25] MEDS: Famotidine 20 MG Tablet PO ×2 (10:37→21:22)
[2017-11-25] MEDS: Propranolol 10 MG Tablet PO ×2 (10:43→21:22)
[2017-11-25] MEDS: dilTIAZem CD 120 MG Capsule PO ×2 (10:43→21:22)
[2017-11-25] MEDS: Insulin Lispro 100 UNIT/ML INSULN.PEN 12 UNIT SC ×2 (12:03→17:51)
[2017-11-25] MEDS: Insulin Lispro 100 UNIT/ML INSULN.PEN SC ×2 (12:03→17:50)
[2017-11-25 12:25] LABS: Bedside Glucose 434 mg/dL (70-110)
--- NOTE | 2017-11-25 14:52 | CASEMGMT ---
Social Work Note SW faxed updated clinicals to Trudy at [facility]. Plan: [facility] pending pre-cert Madeline Dominguez PET TRAINER, TAILER OFF
[2017-11-25] MEDS: Acetaminophen 325 MG Tablet 650 MG PO (15:04)
[2017-11-25 17:25] LABS: Bedside Glucose 180 mg/dL (70-110)
[2017-11-25] MEDS: Rivaroxaban 20 MG Tablet PO (17:52)
[2017-11-25] MEDS: Docusate Sodium 100 MG Capsule PO (21:22)
[2017-11-25] MEDS: Atorvastatin Calcium 40 MG Tablet PO (21:22)
[2017-11-25 21:35] LABS: Bedside Glucose 115 mg/dL (70-110)
[2017-11-26] VITALS (10 sets, daily range): BP systolic 91–124; BP diastolic 50–72; PULSE 65–81; RESP 16–24; TEMP 36.3–36.7; O2SAT 92–98
[2017-11-26] MEDS: HYDROcodone Bitartrate/Apap 5/325 Tablet PO ×4 (02:25→23:02)
[2017-11-26] MEDS: Ipratropium/Albuterol Sulfate 3 ML AMPUL.NEB INHALATION ×6 (03:39→22:58)
[2017-11-26] MEDS: busPIRone 5 MG Tablet 10 MG PO ×3 (05:31→21:22)
[2017-11-26 06:31] LABS: Absolute Lymphocyte Count 7.56 X10^3/ul (0.83-4.51); Absolute Neutrophil Count 13.3 X10^3/uL (2.0-7.7); Basophil# 0.02 X10^3/uL; Basophil% 0.1 % (0-1); Differential Indicated SCAN CRITERIA MET; Eosinophil# 0.31 X10^3/uL; Eosinophils% 1.3 % (0-5); Hematocrit 40.7 % (37-47); Hemoglobin 13.5 g/dl (12.0-15.0); Lymphocyte # 7.56 X10^3/ul (4.0); Lymphocyte % 31.2 % (19-41); Mean Corp Hgb Conc 33.2 g/gl (32-36); Mean Corpuscular Hgb 26.9 pg (27.0-32.0); Mean Corpuscular Volume 81.1 fL (81-99); Mean Platelet Vol. 10.5 fl (6.2-12.0); Monocyte# 2.88 X10^3/uL; Monocyte% 11.9 % (0-10); Neutrophil # 13.25 X10^3/uL (2.7-7.7); Neutrophil % 54.8 % (47-70); POSITIVE COUNT NO; POSITIVE DIFFERENTIAL YES; POSITIVE MORPHOLOGY NO; Platelet Count 408 K/mm3 (150-450); RBC Distribution Width CV 16.7 % (11.6-14.6); Red Blood Count 5.02 M/mm3 (4.2-5.4); White Blood Count 24.2 K/mm3 (4.4-11.0)
[2017-11-26 06:50] LABS: Anion Gap 7 (5-15); BUN 33 mg/dL (7-18); BUN/Creat Ratio 37.5 RATIO (10-20); Calcium,Total 8.3 mg/dL (8.5-10.1); Chloride 99 mmol/L (98-107); Creatinine, Serum 0.88 mg/dL (0.55-1.02); EST Glomerular Filtration Rate 69 mL/min (>60); Est Glom Filt Rate - Afr Amer 84 mL/min (>60); Estimated Creatinine Clearance 50.02 ml/min; Glucose 39 mg/dL (74-106); Potassium 4.3 mmol/L (3.5-5.1); Sodium Level 132 mmol/L (136-145)
--- NOTE | 2017-11-26 06:51 | NURSING ---
Panic value for glucose called from lab. Pt is awake and talking. Followup manual one touch is 37. 120 oz regular pop given per protocol. Pt is asymptomatic with her low blood sugar. Aimee GORDON present in room as well. Will recheck in 15 minutes after pop taken.
[2017-11-26] MEDS: Budesonide Respules 0.5 MG/2 ML AMPUL.NEB. INHALATION ×2 (07:04→19:04)
[2017-11-26] MEDS: Lisinopril 5 MG Tablet PO (07:55)
[2017-11-26] MEDS: Gabapentin 100 MG Capsule PO ×3 (07:55→16:23)
[2017-11-26] MEDS: Furosemide 40 MG Tablet PO ×2 (07:55→17:15)
[2017-11-26] MEDS: buPROPion (SR) 150 MG Tablet.SA PO ×2 (07:55→21:27)
[2017-11-26] MEDS: Propranolol 10 MG Tablet PO ×2 (07:56→21:25)
[2017-11-26] MEDS: dilTIAZem CD 120 MG Capsule PO ×2 (07:56→21:23)
[2017-11-26] MEDS: predniSONE 20 MG Tablet 40 MG PO (07:56)
[2017-11-26] MEDS: Famotidine 20 MG Tablet PO ×2 (07:56→21:27)
[2017-11-26] MEDS: Digoxin 250 MCG Tablet PO (07:56)
[2017-11-26] MEDS: Spironolactone 25 MG Tablet PO ×2 (07:56→17:15)
[2017-11-26] MEDS: guaiFENesin 1,200 MG Tablet 1200 MG PO ×2 (07:57→21:26)
--- NOTE | 2017-11-26 08:00 | CPS ---
Forced expiratory wheezes noted post aerosol.
[2017-11-26 08:06] LABS: Bedside Glucose 37 mg/dL (70-110)
[2017-11-26 08:06] LABS: Bedside Glucose 74 mg/dL (70-110)
--- NOTE | 2017-11-26 10:36 | CASEMGMT ---
Addendum entered by Madeline Dominguez 11/26/17 13:33: LUIS received call from Trudy at [facility] stating LOC needs to be submitted as she got the confirmation that pt doesn't have [employer]. LUIS placed a call to Esperanza at [facility] who states their faxes are still down and to fax LOC to [phone]. LUIS faxed LOC to [facility]. Original Note: Social Work Note LUIS received document from [facility] that pt became ineligible with [employer] on 03/19/2017. LUIS placed a call to Trudy at [facility] and updated her on this. LUIS faxed document to [facility]. Plan: [facility] pending pre-cert or LOC Madeline Dominguez EXPLOSIVE EXPERT, STUDENT SERVICES DEAN
[2017-11-26 10:46] LABS: Bedside Glucose 162 mg/dL (70-110)
[2017-11-26 11:01] LABS: Bedside Glucose 47 mg/dL (70-110)
[2017-11-26 11:01] LABS: Bedside Glucose 66 mg/dL (70-110)
[2017-11-26] MEDS: Insulin Lispro 100 UNIT/ML INSULN.PEN SC ×3 (13:04→21:24)
--- NOTE | 2017-11-26 15:09 | CASEMGMT ---
Social Work Note SW received LOC from [facility]. Pt is able to discharge today to [place] if medically cleared. SW updated physician of this. Green sheet on chart. PAS/RR completed in [facility]. Plan: [place] when medically cleared Madeline Dominguez PERSONNEL TECHNICIAN, LEAF BLENDER
--- NOTE | 2017-11-26 16:07 | NURSING ---
monica Sullivan of text regarding discharge.
--- NOTE | 2017-11-26 16:21 | PN_ITS ---
Subjective: Patient was seen and examined. Still has wheezes. Noted to have episode of hypoglycemia. Her premeal insulins were held today. Vitals/I&O's: Vital Signs Temp Pulse Resp BP Pulse Ox 97.3 F L 75 16 91/50 L 92 11/26/17 13:55 11/26/17 15:35 11/26/17 15:35 11/26/17 13:55 11/26/17 15:35 Oxygen Flow Rate (L/min) 2 Oxygen Delivery Method Room Air Weight: 93.4 kg Body Mass Index (BMI) 38.9 Finger Stick Blood Glucose 364 Intake and Output for Last 24 Hours 11/24/17 11/25/17 11/26/17 23:59 23:59 23:59 Intake Total 1620 / 1620 1050 / 1050 720 / 720 Output Total 2250 / 2250 1350 / 1350 1200 / 1200 Balance -630 / -630 -300 / -300 -480 / -480 General: Alert, Oriented x3, Cooperative, No apparent distress HEENT: Atraumatic, PERRLA, EOMI, Normocephalic Neck: Supple, No JVD, Negative Carotid Bruits Lungs: Normal air movement, Diminished, Wheezes Cardiovascular: Regular rate, Regular Rhythm, Normal S1, Normal S2, No murmurs Abdomen: Bowel Sounds Present, Soft, Non Tender, Non-Distended, No Hepato- splenomegaly Extremities: No edema Skin: No rashes, No breakdown Musculoskeletal: No Tenderness to Palpation of Joints or Extremities Lymphatic: No Cervical, Supraclavicular, or Inguinal Adenopathy Neurological: Cranial nerves II-XII grossly intact Psych/Mental Status: Normal Affect, Appropriate Laboratory Results 11/25/17 16:32: POC Glucose 180 H 11/25/17 21:18: POC Glucose 115 H 11/26/17 05:38: WBC 24.2 H, RBC 5.02, Hgb 13.5, Hct 40.7, MCV 81.1, MCH 26.9 L, MCHC 33.2, RDW 16.7 H, RDW Differential 50.0 H, Plt Count 408, MPV 10.5, Immature Gran % (Auto) 0.700, Neut % (Auto) 54.8, Lymph % (Auto) 31.2, [place] % ( Auto) 11.9 H, Eos % (Auto) 1.3, Baso % (Auto) 0.1, Absolute Neuts (auto) 13.3 H, Absolute Lymphs (auto) 7.56 H, Total Counted Not Reportable 11/26/17 05:38: Sodium 132 L, Potassium 4.3, Chloride 99, Carbon Dioxide 26.0, Anion Gap 7, BUN 33 H, Creatinine 0.88, Estim Creat Clear Calc 50.02, Est GFR (MDRD) Af Amer 84, Est GFR (MDRD) Non-Af 69, BUN/Creatinine Ratio 37.5 H, Glucose 39 L*, Calcium 8.3 L 11/26/17 06:52: POC Glucose 37 L* 11/26/17 07:08: POC Glucose 47 L 11/26/17 07:23: POC Glucose 66 L 11/26/17 07:46: POC Glucose 74 11/26/17 10:38: POC Glucose 162 H Current Medications Acetaminophen (Tylenol) 650 mg PO Q6H PRN PRN PRN Reason: Mild Pain (scale 0-3)/T>100.7 Last Admin: 11/25/17 15:04 Dose: 650 mg Hydrocodone Bitart/Acetaminophen ([place] 5mg-325mg) 1 tablet PO Q6H PRN PRN PRN Reason: PAIN Last Admin: 11/26/17 09:09 Dose: 1 tablet Al Hydroxide/Mg Hydroxide (Mylanta Ii) 30 ml PO Q6H PRN PRN PRN Reason: DYSPEPSIA/INDIGESTION Albuterol Sulfate (Ventolin Aerosols) 2.5 mg INHALATION Q2H PRN PRN PRN Reason: COUGH/SOB Albuterol/Ipratropium (Duoneb) 3 ml INHALATION Q4H.RT MARYANN Last Admin: 11/26/17 15:34 Dose: 3 ml Atorvastatin Calcium (Lipitor) 40 mg PO QHS MARYANN Last Admin: 11/25/17 21:22 Dose: 40 mg Benzonatate (Tessalon Perle) 100 mg PO TID PRN PRN PRN Reason: COUGH Last Admin: 11/22/17 18:30 Dose: 100 mg Budesonide (Pulmicort Aerosol) 0.5 mg INHALATION Q12H.RT [facility] Last Admin: 11/26/17 07:04 Dose: 0.5 mg Bupropion HCl (Wellbutrin Sr (150mg Tablets)) 150 mg PO BID [facility] Last Admin: 11/26/17 07:55 Dose: 150 mg Buspirone HCl (Buspar) 10 mg PO TID [facility] Last Admin: 11/26/17 13:03 Dose: 10 mg Calcium Carbonate (Tums) 500 - 1,000 mg PO Q6H PRN PRN PRN Reason: HEART BURN Dextrose (D50w Syringe) 0 gm IV X1 PRN; Protocol PRN Reason: Hypoglycemia Digoxin (Lanoxin) 250 mcg PO DAILY [facility] Last Admin: 11/26/17 07:56 Dose: 250 mcg Diltiazem HCl (Cardizem Cd) 120 mg PO BID [facility] Last Admin: 11/26/17 07:56 Dose: 120 mg Docusate Sodium (Colace) 100 mg PO QHS [facility] Last Admin: 11/25/17 21:22 Dose: 100 mg Famotidine (Pepcid) 20 mg PO BID [facility] Last Admin: 11/26/17 07:56 Dose: 20 mg Furosemide (Lasix) 40 mg PO BIDLX [facility] Last Admin: 11/26/17 07:55 Dose: 40 mg Gabapentin (Neurontin) 100 mg PO TIDCM [facility] Last Admin: 11/26/17 11:37 Dose: 100 mg Glucagon () 1 mg IM .X1 PRN PRN Reason: Hypoglycemia Guaifenesin (Mucinex) 1,200 mg PO BID [facility] Last Admin: 11/26/17 07:57 Dose: 1,200 mg Insulin Glargine (Lantus (Bkc)) 10 units SC DAILY [facility] Last Admin: 11/26/17 09:04 Dose: Not Given Insulin Glargine (Lantus (Bkc)) 20 units SC QHS [facility] Insulin Human Lispro (Humalog Kwikpen (Bkc)) 0 unit SC 4X/DAYCM [facility]; Protocol Last Admin: 11/26/17 13:04 Dose: 2 u Insulin Human Lispro (Humalog Kwikpen (Bkc)) 12 unit SC TIDCM [facility] Last Admin: 11/26/17 12:56 Dose: Not Given Lisinopril (Zestril) 5 mg PO DAILY [facility] Last Admin: 11/26/17 07:55 Dose: 5 mg Magnesium Hydroxide (Milk Of Magnesia) 30 ml PO DAILY PRN PRN PRN Reason: Constipation Ondansetron HCl (Zofran) 4 mg IV Q8H PRN PRN PRN Reason: Nausea Polyethylene Glycol (Miralax) 17 gm PO DAILY [facility] Last Admin: 11/26/17 07:56 Dose: Not Given Prednisone () 40 mg PO DAILY@0800 [facility] Last Admin: 11/26/17 07:56 Dose: 40 mg Propranolol HCl (Inderal) 10 mg PO BID [facility] Last Admin: 11/26/17 07:56 Dose: 10 mg Rivaroxaban (Xarelto) 20 mg PO DAILY@1700 [facility] Last Admin: 11/25/17 17:52 Dose: 20 mg Senna/Docusate Sodium (Senokot-S, Estefania-Colace) 2 tablet PO DAILY PRN PRN PRN Reason: Constipation Sodium Chloride () 5 - 30 ml IV UD PRN PRN Reason: SALINE FLUSH Last Admin: 11/23/17 06:42 Dose: 10 ml Spironolactone (Aldactone) 25 mg PO BIDLX [facility] Last Admin: 11/26/17 07:56 Dose: 25 mg Medical Necessity - Tobacco Use Smoking Status: Former smoker Tobacco Use: Cigarettes Assessment/Plan All Active Problems (Last Reviewed 11/20/17 @ 15:04 by All Karimi DO) Abdominal pain (Acute) Acute exacerbation of chronic obstructive pulmonary disease (COPD) (Acute) Tobacco dependence due to cigarettes (Resolved) Chest pain (Acute) Chest pain (Acute) Acute and chronic respiratory failure with hypoxia (Resolved) Acute bronchitis due to human metapneumovirus (Resolved) Atrial fibrillation with RVR (Resolved) COPD with acute exacerbation (Resolved) Gram-negative pneumonia (Resolved) Cardiomyopathy (Ruled-out) 62-year-old female with past medical history of chronic hypoxic respiratory failure second to chronic COPD, on 2-3 L of oxygen at home, hypertension hyperlipidemia, type II DM, anxiety/depression, morbid obesity presented with worsening shortness of breath 1. Acute on chronic hypoxic respiratory failure secondary to acute COPD exacerbation, patient is on home oxygen level, will continue to encourage incentive spirometer, 2. Acute hypoxic respiratory failure second COPD exacerbation, improving, on breathing treatments, prednisone taper, will continue on same 3. Episodes of hypoglycemia, blood sugar in the morning was 43, changes made to her insulin with pre-meal insulin hold, long-acting insulin reduced to 20 units, continue with Accu-Cheks and insulin sliding scale 4. History of SVT/paroxysmal atrial fibrillation, on diltiazem, digoxin, Xarelto 5. Hypertension, controlled, continue on home regimen 6. Hyperlipidemia, on statin 7. DVT prophylaxis - On Xarelto Code Visit Inpatient E&M: 04193 Subs Hosp L2
[2017-11-26] MEDS: Rivaroxaban 20 MG Tablet PO (16:23)
--- NOTE | 2017-11-26 16:40 | CASEMGMT ---
Social Work Note SW received call from Charge Nurse Cassandra that pt is not discharging today per physician. LUIS placed a call to Trudy at [facility] and updated her on this. Plan: Jack when medically cleared Madeline Dominguez GLOBAL POSITION SYSTEM TECHNICIAN, [employer]
[2017-11-26 17:20] LABS: Bedside Glucose 183 mg/dL (70-110)
[2017-11-26] MEDS: Docusate Sodium 100 MG Capsule PO (21:24)
[2017-11-26] MEDS: Atorvastatin Calcium 40 MG Tablet PO (21:26)
[2017-11-26 21:41] LABS: Bedside Glucose 166 mg/dL (70-110)
[2017-11-27] MEDS: Ipratropium/Albuterol Sulfate 3 ML AMPUL.NEB INHALATION ×2 (02:36→07:14)
[2017-11-27 02:37] VITALS: PULSE 82; RESP 20
[2017-11-27 02:59] VITALS: BP 158/94; PULSE 71; RESP 18; TEMP 36.5; O2SAT 94
[2017-11-27] MEDS: HYDROcodone Bitartrate/Apap 5/325 Tablet PO (06:34)
[2017-11-27] MEDS: busPIRone 5 MG Tablet 10 MG PO (06:34)
[2017-11-27 06:41] LABS: Bedside Glucose 66 mg/dL (70-110)
[2017-11-27 06:47] LABS: Absolute Lymphocyte Count 5.63 X10^3/ul (0.83-4.51); Absolute Neutrophil Count 12.4 X10^3/uL (2.0-7.7); Basophil# 0.03 X10^3/uL; Basophil% 0.1 % (0-1); Differential Indicated SCAN CRITERIA MET; Eosinophil# 0.27 X10^3/uL; Eosinophils% 1.3 % (0-5); Hematocrit 38.8 % (37-47); Hemoglobin 12.9 g/dl (12.0-15.0); Lymphocyte # 5.63 X10^3/ul (4.0); Lymphocyte % 27.9 % (19-41); Mean Corp Hgb Conc 33.2 g/gl (32-36); Mean Corpuscular Hgb 26.9 pg (27.0-32.0); Mean Platelet Vol. 10.6 fl (6.2-12.0); Monocyte# 1.61 X10^3/uL; Neutrophil % 61.6 % (47-70); POSITIVE COUNT NO; POSITIVE DIFFERENTIAL YES; POSITIVE MORPHOLOGY NO; Platelet Count 346 K/mm3 (150-450); RBC Distribution Width CV 16.7 % (11.6-14.6); RBC Distribution Width SD 49.3 fl (35.1-43.9); Red Blood Count 4.79 M/mm3 (4.2-5.4); White Blood Count 20.2 K/mm3 (4.4-11.0)
[2017-11-27 06:53] LABS: Anion Gap 7 (5-15); BUN 33 mg/dL (7-18); BUN/Creat Ratio 39.1 RATIO (10-20); Calcium,Total 8.1 mg/dL (8.5-10.1); Chloride 97 mmol/L (98-107); Creatinine, Serum 0.84 mg/dL (0.55-1.02); EST Glomerular Filtration Rate 73 mL/min (>60); Est Glom Filt Rate - Afr Amer 88 mL/min (>60); Glucose 52 mg/dL (74-106); Potassium 4.2 mmol/L (3.5-5.1); Sodium Level 131 mmol/L (136-145)
[2017-11-27 07:01] LABS: Bedside Glucose 100 mg/dL (70-110)
[2017-11-27 07:14] VITALS: PULSE 88; RESP 24
[2017-11-27] MEDS: Budesonide Respules 0.5 MG/2 ML AMPUL.NEB. INHALATION (07:14)
[2017-11-27 07:22] VITALS: O2SAT 90
--- NOTE | 2017-11-27 09:42 | PCM.DC.SUM ---
Discharge Date and Diagnosis Date of Admission: 11/20/17 Date of Discharge: 11/27/17 - Primary Discharge Diagnosis 1. Acute on chronic hypoxic respiratory failure secondary to acute COPD exacerbation, 2. Acute COPD exacerbation 3. Hypoglycemia - Secondary Discharge Diagnosis Chronic Problems (Last Reviewed 11/20/17 @ 15:04 by All Karimi DO) Morbid obesity with BMI of 50.0-59.9, adult (Chronic) ABDULLAHI (obstructive sleep apnea) (Chronic) Non-compliance (Chronic) Microcytic anemia (Chronic) Syncope (Chronic) Hypersomnia (Chronic) Anemia (Chronic) Hypomagnesemia (Chronic) HTN (hypertension) (Chronic) Morbid obesity with BMI of 40.0-44.9, adult (Chronic) COPD (chronic obstructive pulmonary disease) (Chronic) Chronic pain (Chronic) Chronic atrial fibrillation (Chronic) Chronic hypoxemic respiratory failure (Chronic) non-compliant with oxygen Hyperlipemia (Chronic) Type 2 diabetes mellitus (Chronic) uncontrolled GERD (gastroesophageal reflux disease) (Chronic) Anxiety (Chronic) Insomnia (Chronic) Hospital Course and Treatment Imaging Results: Clinical Impression(s) from Imaging Studies Chest X-Ray 11/20/17 12:10 IMPRESSION: Normal x-ray examination of the chest. Electronically Signed: Danny Hale MD at 13:08 EDT , Service support , None Operations: None Procedures: None Summary of Care Provided: The patient is a 62 year old F with past medical history of chronic hypoxic respiratory failure secondary to chronic COPD, on 2-3 L of oxygen at home, hypertension, hyperlipidemia, type II DM, anxiety/depression, morbid obesity admitted on 11/20/2017 with worsening shortness of breath as well as wheezing. Admitting chest x-ray was negative for any infiltrates. Respiratory panel was negative. Patient was managed on breathing treatments, IV Solu-Medrol, antibiotics. She continued to improve and was transitioned to prednisone taper. Patient had episodes of hyperglycemia initially with changes made to her insulin. She subsequently developed hypoglycemia. She was seen by PT and OT and skilled for discharged to [facility]. Changes were made to her insulin on account of hypoglycemia noted 2 days prior to her discharge. Patient may need to have insulins titrated for hyperglycemia in the SNF. HbA1c in this admission was 9.4 up from 8.5 in March 2016. Patient has had several episodes of syncope. Echo done in June 2017 showed hyperdynamic LV systolic function, with EF of 75%, mildly enlarged LA, mild to moderate mitral annular calcification, no evidence of cardiac tamponade. Patient was due to have an event monitor and follow-up with cardiology. She also needs to follow-up with pulmonology for severe ABDULLAHI. She was discharged on BiPAP. Subjective: On the day of discharge, patient denied any new complains. Wheezing and SOB was improved. Objective: Physical exam: General: Alert, Oriented x3, Cooperative, No apparent distress HEENT: Atraumatic, PERRLA, EOMI, Normocephalic Neck: Supple, No JVD, Negative Carotid Bruits Lungs: Normal air movement, Diminished, Wheezes scattered, improved from prior Cardiovascular: Regular rate, Regular Rhythm, Normal S1, Normal S2, No murmurs Abdomen: Bowel Sounds Present, Soft, Non Tender, Non-Distended, No Hepato-splenomegaly Extremities: No edema Skin: No rashes, No breakdown Musculoskeletal: No Tenderness to Palpation of Joints or Extremities Lymphatic: No Cervical, Supraclavicular, or Inguinal Adenopathy Neurological: Cranial nerves II-XII grossly intact Psych/Mental Status: Normal Affect, Appropriate - Physical Exam Vital Signs Temp Pulse Resp BP Pulse Ox 97.7 F L 88 24 H 158/94 H 90 11/27/17 02:59 11/27/17 07:14 11/27/17 07:14 11/27/17 02:59 11/27/17 07:22 Oxygen Flow Rate (L/min) 2 Oxygen Delivery Method Room Air Weight: 93.4 kg Body Mass Index (BMI) 38.9 Finger Stick Blood Glucose 364 Intake and Output for Last 24 Hours 11/25/17 11/26/17 11/27/17 23:59 23:59 23:59 Intake Total 1050 / 1050 1080 / 1080 Output Total 1350 / 1350 1200 / 1200 Balance -300 / -300 -120 / -120 Laboratory Tests Past 24 Hrs 11/27/17 11/27/17 05:35 05:35 WBC 20.2 H RBC 4.79 Hgb 12.9 Hct 38.8 MCV 81.0 MCH 26.9 L MCHC 33.2 RDW 16.7 H RDW Differential 49.3 H Plt Count 346 MPV 10.6 Immature Gran % (Auto) 1.100 H Neut % (Auto) 61.6 Lymph % (Auto) 27.9 [place] % (Auto) 8.0 Eos % (Auto) 1.3 Baso % (Auto) 0.1 Absolute Neuts (auto) 12.4 H Absolute Lymphs (auto) 5.63 H Total Counted Not Reportable Sodium 131 L Potassium 4.2 Chloride 97 L Carbon Dioxide 27.0 Anion Gap 7 BUN 33 H Creatinine 0.84 Estim Creat Clear Calc 52.40 Est GFR (MDRD) Af Amer 88 Est GFR (MDRD) Non-Af 73 BUN/Creatinine Ratio 39.1 H Glucose 52 L Calcium 8.1 L POC Glucose 11/27/17 11/27/17 11/26/17 06:58 06:32 21:21 POC Glucose 100 66 L 166 H 11/26/17 11/26/17 11/26/17 16:20 10:38 07:23 POC Glucose 183 H 162 H 66 L 11/26/17 07:08 POC Glucose 47 L Discharge Diet: Low fat/ Low Cholesterol, 2000 mg Sodium Diet, Carb Control Diet Discharge Activity: Return to Normal Activity Home Medications: Medications to take at Discharge Albuterol Aerosols [Ventolin Aerosols] 2.5 mg INHALATION Q2H PRN PRN 05/12/17 Atorvastatin Calcium [Lipitor] 40 mg PO QHS 05/12/17 Budesonide/Formoterol 160/4.5 [Symbicort 160/4.5 Mcg Inhaler (SP)] 2 puff INHALATION BID 05/12/17 Bupropion HCl [Bupropion HCl Sr] 150 mg PO BID 05/12/17 Buspirone HCl 10 mg PO TID 05/12/17 Digoxin 250 mcg PO DAILY 05/12/17 Diltiazem [Cardizem] 120 mg PO BID 05/12/17 Famotidine [Pepcid] 20 mg PO BID 05/12/17 Furosemide [Lasix] 40 mg PO BID 05/12/17 Glucagon,Human Recombinant [Glucagon Emergency Kit] 1 mg IM PRN PRN 05/12/17 Guaifenesin [Mucinex] 1,200 mg PO BID 05/12/17 Ipratropium/Albuterol Sulfate [Duoneb] 3 ml INHALATION Q4H.RT 05/12/17 Lisinopril [Prinivil] 5 mg PO DAILY 05/12/17 Propranolol HCl [Inderal (Beta Rubén)] 10 mg PO BID 05/12/17 Sennosides/Docusate Sodium [Senna-Docusate Sodium Tablet] 2 tab PO DAILY PRN PRN 05/12/17 Mag Hydrox/Al Hydrox/Simeth [Mylanta II] 30 ml PO Q6H PRN PRN 08/11/17 Polyethylene Glycol 3350 [Miralax] 17 gm PO DAILY 08/11/17 docusate sodium 100 mg capsule 100 mg PO QHS 09/01/17 gabapentin 100 mg capsule 100 mg PO TID cap 09/01/17 Spironolactone [Aldactone] 25 mg PO BID 11/01/17 Benzonatate [Tessalon Perle] 100 mg PO TID PRN PRN 11/02/17 Rivaroxaban [Xarelto] 20 mg PO DAILY #0 11/03/17 Calcium Carbonate [Tums] 500 - 1,000 mg PO Q6H PRN PRN 11/20/17 acetaminophen 325 mg capsule 650 mg PO Q6H PRN cap 11/20/17 Acetaminophen [Tylenol Tablet] 650 mg PO Q6H PRN PRN tablet 11/24/17 Insulin Lispro [Humalog KwikPen] See Protocol SC 4X/DAYCM insuln.pen 11/24/17 Prednisone 10 mg PO UD #30 tablet 11/24/17 Insulin Glargine [Lantus SoloStar Pen] 10 units SC QHS pen 11/27/17 Following Prescrptions Were Given to Patient: Prednisone 10 mg PO UD #30 tablet Primary Care Physician: Camden Burger [Primary Care Provider] - Please follow up with your Primary Care Physician in: Follow-up within 1-2 days SNF discharge and 3-5 days hospital discharge. Please Follow Up With: Brent Prasad DO When: Follow-up within 1-2 weeks. Please Follow Up With: Camden Mccormick MD When: Follow-up in 4 weeks after holter monitoring performed. Disposition: Assisted facility Minutes spent on discharge:: 40 Patient Condition:: Stable Medical Necessity - Tobacco Use Smoking Status: Former smoker Tobacco Use: Cigarettes Meaningful Use Info Meaningful Use Diagnoses (Choose all that apply): None applicable Code Visit Inpatient E&M: 87390 Disch Hosp
[2017-11-27] MEDS: Propranolol 10 MG Tablet PO (10:16)
[2017-11-27] MEDS: predniSONE 20 MG Tablet 40 MG PO (10:16)
[2017-11-27] MEDS: dilTIAZem CD 120 MG Capsule PO (10:16)
[2017-11-27] MEDS: Lisinopril 5 MG Tablet PO (10:16)
[2017-11-27] MEDS: Gabapentin 100 MG Capsule PO (10:16)
[2017-11-27] MEDS: Famotidine 20 MG Tablet PO (10:16)
[2017-11-27] MEDS: Furosemide 40 MG Tablet PO (10:16)
[2017-11-27] MEDS: Spironolactone 25 MG Tablet PO (10:16)
[2017-11-27] MEDS: guaiFENesin 1,200 MG Tablet 1200 MG PO (10:16)
[2017-11-27] MEDS: buPROPion (SR) 150 MG Tablet.SA PO (10:16)
[2017-11-27 10:20] VITALS: BP 102/66; PULSE 60; RESP 18; TEMP 36.8; O2SAT 93
[2017-11-27] MEDS: Digoxin 250 MCG Tablet PO (10:20)
--- NOTE | 2017-11-27 10:43 | CASEMGMT ---
Social Work Note Physician is discharging pt today. LUIS faxed completed discharge paperwork to Trudy at [facility] including transfer to extended care facility, signed medication list and any scripts. Originals in SNF folder and copy on pt's chart. LUIS completed PAS/RR in [facility] and was fax[facility] to [facility] for LOC. PAS/RR in SNF folder and copy on pt's chart. LUIS spoke with pt regarding transportation. Pt would like to be transported via Wheelchair Van. LUIS placed a call to [facility] and [facility] who states none of them have available wheelchair vans to transport today. LUIS placed a call to Trudy at [facility] and informed her that discharge paperwork has been faxed and asked if Trudy had a van able to transport pt. LUIS informed Trudy that this worker has called three different agencies and none of them are available today for wheelchair van to transport. Trudy states that she will have the van at [facility] pear picker pt around 11:00am. LUIS updated corporation secretary Rebecca and HEIDI Moser of transportation time. Plan: Pt to discharge today to [facility] with [facility] transporting pt. Madeline Dominguez GAMMA RAY OPERATOR, BUSINESS ANALYST CONSULTANT
[2018-01-04 14:16] LABS: Cotinine Screen Blood None Detected ug/mL (CUTOFF= 0.3); Nicotine Blood None Detected ug/mL (CUTOFF= 0.3)
== END 2017-11-27 11:12 | disposition skilled nursing facility (03) | DRG 140 ==
LOC: ED 13:06 → MS3 15:13
PROVIDERS: Family Medicine; Hospitalist; Internal Medicine Critical Care Medicine; Emergency Provider Emergency Medicine; Family Provider Family Medicine; PCP Family Medicine; Visit Provider Internal Medicine
DX: J44.1 Chronic obstructive pulmonary disease with (acute) exacerbation (principal); I48.2 Chronic atrial fibrillation; J96.21 Acute and chronic respiratory failure with hypoxia; E87.1 Hypo-osmolality and hyponatremia; J96.01 Acute respiratory failure with hypoxia; E11.65 Type 2 diabetes mellitus with hyperglycemia; I42.9 Cardiomyopathy, unspecified; E66.9 Obesity, unspecified; K21.9 Gastro-esophageal reflux disease without esophagitis; F41.9 Anxiety disorder, unspecified; F32.9 Major depressive disorder, single episode, unspecified; G47.33 Obstructive sleep apnea (adult) (pediatric); E78.5 Hyperlipidemia, unspecified; I25.10 Atherosclerotic heart disease of native coronary artery without angina pectoris; Z87.891 Personal history of nicotine dependence; Z91.19 Patient's noncompliance with other medical treatment and regimen; Z68.38 Body mass index [BMI] 38.0-38.9, adult; D50.9 Iron deficiency anemia, unspecified; Z79.4 Long term (current) use of insulin; T38.0X5A Adverse effect of glucocorticoids and synthetic analogues, initial encounter; Z79.01 Long term (current) use of anticoagulants; E11.649 Type 2 diabetes mellitus with hypoglycemia without coma; I10 Essential (primary) hypertension; G47.00 Insomnia, unspecified
CPT/HCPCS: 36415; 71045; 80048; 80323; 82947; 82962; 83036; 83735; 83880; 84484; 85025; 87633; 93005; 94640; 97110; 97161; 97166; 97530; 97802; 99284; A4216

== ENCOUNTER 2017-12-23 10:59 | Emergency (ER) | payer MEDICAID, SELFPAY ==
[2017-12-23] VITALS (9 sets, daily range): BP systolic 74–124; BP diastolic 36–91; PULSE 56–71; RESP 16–20; TEMP 36.8; O2SAT 91–100; BMI 37.9
--- NOTE | 2017-12-23 11:34 | EKG12_ITS ---
Test Reason : CONFUSION Blood Pressure : / mmHG Vent. Rate : 068 BPM Atrial Rate : 267 BPM P-R Int : 000 ms QRS Dur : 084 ms QT Int : 350 ms P-R-T Axes : 000 065 -59 degrees QTc Int : [address] & T wave abnormality, consider inferior ischemia ST & T wave abnormality, consider anterolateral ischemia Abnormal ECG Confirmed by ELSY DELGADO, LUCILA ([id number]), development editor DIANA GALVEZ ([id number]) on 12/24/2017 3:45:15 PM Referred By: TERRANCE Confirmed By:LUCILA CHIN MD
[2017-12-23] MEDS: 0.9% Normal Saline 1,000 ML 150 ML IV (11:40)
[2017-12-23 12:00] LABS: Hematocrit 38.9 % (37-47); Hemoglobin 11.8 g/dl (12.0-15.0); Mean Corp Hgb Conc 30.3 g/gl (32-36); Mean Corpuscular Hgb 26.9 pg (27.0-32.0); Mean Corpuscular Volume 88.6 fL (81-99); Mean Platelet Vol. 10.8 fl (6.2-12.0); Platelet Count 285 K/mm3 (150-450); RBC Distribution Width SD 60.8 fl (35.1-43.9); Red Blood Count 4.39 M/mm3 (4.2-5.4); Scan Indicated on CBC? Y/N NO; White Blood Count 9.5 K/mm3 (4.4-11.0)
--- NOTE | 2017-12-23 12:09 | NURSING ---
BLUE TOP AND GREEN TOP NEED REDRAWN, PER [facility]
[2017-12-23 12:18] LABS: ALB/GLOB Ratio 0.8 RATIO (0.9-2.4); AST(SGOT) 28 U/L (15-37); Alanine Aminotransfer ALT/SGPT 26 U/L (13-56); Albumin, Serum 2.8 g/dL (3.2-5.0); Alkaline Phosphatase 91 U/L (45-117); Anion Gap 9 (5-15); BUN 30 mg/dL (7-18); BUN/Creat Ratio 17.8 RATIO (10-20); Calcium,Total 8.4 mg/dL (8.5-10.1); Chloride 102 mmol/L (98-107); Creatinine, Serum 1.69 mg/dL (0.55-1.02); EST Glomerular Filtration Rate 33 mL/min (>60); Est Glom Filt Rate - Afr Amer 39 mL/min (>60); Estimated Creatinine Clearance 26.04 ml/min; Globulin 3.6 g/dL (2.2-4.2); Glucose 181 mg/dL (74-106); Lipase 44 U/L (73-393); Potassium 4.7 mmol/L (3.5-5.1); Protein, Total 6.4 g/dL (6.4-8.2); Sodium Level 142 mmol/L (136-145)
[2017-12-23 12:24] LABS: Lactic Acid 1.2 mmol/L (0.4-2.0)
[2017-12-23 12:38] LABS: International Normalized Ratio 1.9; Partial Thromboplast Time 32.6 Seconds (24.1-36.2)
--- NOTE | 2017-12-23 12:39 | CT_ITS ---
STUDY: CT BRAIN WITHOUT CONTRAST REASON FOR EXAM: Female, 62 years old. Lethargy. Increased confusion. Hypotension. RADIATION DOSAGE (If Supplied By Facility): CTDIvol = ( 44.99 ) mGy, DLP = ( 779.24 ) mGycm TECHNIQUE: Transaxial CT imaging of the brain was performed without administration of intravenous contrast material. Individualized dose optimization techniques were used for this CT. COMPARISON: Comparison is made with prior study dated May 19, 2009. FINDINGS: Normal soft tissue structures. Normal calvarium. There is mild cerebral atrophy with widening of the extra-axial spaces and ventricular dilatation. Normal white matter tracts of the cerebral hemispheres. Normal basal ganglia and thalami. Normal brainstem. Normal cerebellum. There is no intracranial hemorrhage. There are no findings of an acute ischemic infarction. Normal visualized paranasal sinuses. CT/Brain/Head without Contrast IMPRESSION: Chronic involutional changes of the brain. Electronically Signed: Jose Lemos MD at 13:25 EST Tel [phone], Service support ,
--- NOTE | 2017-12-23 12:39 | CT_ITS ---
STUDY: CT ABDOMEN AND PELVIS WITH CONTRAST REASON FOR EXAM: Female, 62 years old. Lower abdominal pain. Lethargy. Increased confusion. RADIATION DOSAGE (If Supplied By Facility): CTDIvol = ( 16.65 ) mGy, DLP = ( 1139.28 ) mGycm TECHNIQUE: Transaxial images were obtained from the dome of the diaphragm to the symphysis pubis without oral contrast. 75mL ml of Isovue 300 contrast was administered. Sagittal and coronal images were reconstructed. Individualized dose optimization techniques were used for this CT. COMPARISON: Comparison is made with prior examination dated November 01, 2017. FINDINGS: Focal infiltrate in the posterior medial segment of the right lower lobe. Coronary artery calcification. Normal liver. Sludge or small gallstones seen in the gallbladder lumen. Normal spleen. Normal pancreas. Normal bilateral adrenal glands. Normal right kidney. Normal left kidney. Normal visualized stomach. Normal small intestine. Normal colon. There is non-visualization of the appendix. There is diffuse atherosclerotic calcification of the abdominal aorta, without a demonstrated aneurysm. Normal inferior vena cava. Normal retroperitoneum. Normal urinary bladder. There is absence of the uterus consistent with a prior hysterectomy. Normal abdominal wall. Small bilateral benign-appearing inguinal lymph nodes. Disc space narrowing and disc degeneration at the L4-L5 level. CT/Abdomen/Pelvis W IV Cont ONLY IMPRESSION: Focal infiltrate in the posterior medial segment of the right lower lobe. Electronically Signed: Jose Lemos MD at 13:31 EST Tel [phone], Service support ,
[2017-12-23 12:47] LABS: Mucous, Urine 0 SEEN /hpf (<or=2+); Red Blood Cells-Urine 0 SEEN /hpf (0-5); White Blood Cells 0 SEEN /hpf (0-5)
[2017-12-23 12:53] LABS: Color, Urine Yellow (Yellow); Urine Clarity Sl Cloudy (Clear)
[2017-12-23 12:54] LABS: Glucose, Dipstick NEGATIVE (Normal); Leukocyte Esterase-Dipstick Negative /ul (Negative); Nitrite-Dipstick Negative (Negative); Protein-Dipstick 30 mg/dl (Negative)
[2017-12-23 12:55] LABS: Ketone-Dipstick 50 mg/dl (Negative); Occult Blood-Urine Negative /ul (Negative); Urine Bilirubin Dipstick 3 mg/dL (Negative); Urine Urobilinogen Normal (Normal)
[2017-12-23 13:02] LABS: Bacteria 1+ /hpf (None Seen); Hyaline Cast 0-5 SEEN /lpf (0-5); Squamous Epithelial Cells - UA 0-5 SEEN /hpf (5-10)
--- NOTE | 2017-12-23 13:22 | RAD_ITS ---
STUDY: X-RAY CHEST REASON FOR EXAM: Female, 62 years old. Altered level of consciousness. TECHNIQUE: Single AP portable view of the chest. COMPARISON: Comparison is made with prior study dated November 20, 2017. FINDINGS: EKG electrodes are seen. The lungs are clear and expanded. There is no demonstrated pleural abnormality. Normal size heart. Normal mediastinum and sangeeta. Normal visualized pulmonary arteries. Normal visualized aortic arch and descending thoracic aorta. Normal visualized thoracic spine. Normal visualized ribs, clavicles, and shoulders. There is no demonstrated abnormality of the visualized soft tissue structures of the upper abdomen. RAD/Chest 1 View (Portable) IMPRESSION: Normal x-ray examination of the chest. Electronically Signed: Jose Lemos MD at 13:38 EST Tel [phone], Service support ,
--- NOTE | 2017-12-23 14:47 | NURSING ---
DR EUN ATKINS
--- NOTE | 2017-12-23 14:54 | ED.DCSUM_ITS ---
- ER Visit Summary Date of Service: 12/23/17 Chief Complaint: Altered mental status History of Present Illness: The patient is a 62 F who was [facility] in [facility]. Patient sees Dr. Burger. She stays in [place]. She has extensive medical history including A. fib (on Xarelto), COPD (home oxygen), diabetes obesity hypertension high cholesterol. Approximately 1 week ago was diagnosed with an ileus on x-ray. She is now complaint of right upper quadrant pain. She seems confused per her practitioner as well as possibly jaundiced. No reported fevers. He continues to smoke but has been unable to do so today. Physical Examination: Afebrile vital signs stable Gen: Well-nourished well-developed obese Head: Normocephalic atraumatic Eyes: Perrl EOMI ENT: TMs clear no rhinorrhea moist mucous membranes Neck: Supple no lymphadenopathy no JVD nontender CVS: Irregularly irregular rate rhythm no murmurs normal S1-S2 Respiratory: No distress clear to auscultation bilaterally chest nontender Abdomen: Soft nontender nondistended normal bowel sounds no masses Back: Nontender Extremity: Nontender no edema Skin: Normal color no rash Neuro: alert orientated ?3 CN II-XII intact normal strength sensation reflexes ( patient keeps her eyes closed and says 1 word sentences and seems weak however depending on the question she is able to open her eyes and speak very fluently and long sentences. When not asked to move her extremities she is able to do so but when asked to move certain once for testing she moves weakly. Test Results: CT brain negative. CT of the pelvis no acute. There is a possible right middle lobe infiltrate. Chest x-ray no acute. EKG A. fib at a rate of 68 white count 9.5 hemoglobin 11.5. Lactic acid normal. Troponin negative. Urinalysis specific gravity 1.03. Ammonia level negative. Emergency Department Course and Treatment: Patient is not coughing. She does not complain of shortness of breath. Her lung sounds are clear. I am not convinced she has a pneumonia. I spoke with Dr. Burger who is comfortable with patient going back [facility]. Report was called but the patient's blood pressure dropped. She received IV fluids. Manual blood pressure 98/62 Impression: 1. Acute abdominal pain 2. Altered mental status This note was generated with Dragon dictation software. It may contain incorrect words, spelling, and punctuation that were not noted in review of the chart prior to signing ED Disposition - Plan for ED Patient: Disposition: Home or Assisted Living Chief Complaint: Alt LOC Instructions: ED Abdominal Pain Unkn Cause Referrals: Camden Burger [Primary Care Provider] - 3-5 Days if not improving
--- NOTE | 2017-12-23 15:51 | ED.RN ---
PATIENTS BLOOD PRESSURE WAS 115/90 PRIOR TO GETTING UP TO USE THE BEDSIDE COMMODE, UPON SITTING ON THE BEDSIDE COMMODE THIS PATIENTS PRESSURE DROPPED TO 92/38
--- NOTE | 2017-12-23 16:22 | NURSING ---
CALLED [facility] FOR TRANSPORT. ETA IS ABOUT HALF HOUR
== END 2017-12-23 17:18 | disposition home or self-care (01) ==
PROVIDERS: Emergency Provider Emergency Medicine; Family Provider Family Medicine; PCP Family Medicine
DX: R10.11 Right upper quadrant pain (principal); R41.82 Altered mental status, unspecified; I48.91 Unspecified atrial fibrillation; I10 Essential (primary) hypertension; J44.9 Chronic obstructive pulmonary disease, unspecified; E11.9 Type 2 diabetes mellitus without complications; E78.00 Pure hypercholesterolemia, unspecified; K21.9 Gastro-esophageal reflux disease without esophagitis; F17.200 Nicotine dependence, unspecified, uncomplicated; E66.9 Obesity, unspecified; Z79.4 Long term (current) use of insulin; Z79.01 Long term (current) use of anticoagulants; Z79.899 Other long term (current) drug therapy; Z99.81 Dependence on supplemental oxygen
CPT/HCPCS: 70450; 71045; 74177; 80053; 81001; 82140; 83605; 83690; 84484; 85027; 85610; 85730; 93005; 96360; 96361; 99285; Q9967; A4216

== ENCOUNTER 2017-12-25 13:04 | Inpatient (IN) | payer MEDICAID, SELFPAY ==
[2017-12-25] VITALS (15 sets, daily range): BP systolic 101–120; BP diastolic 45–100; PULSE 36–70; RESP 12–18; TEMP 35.9–36.4; O2SAT 94–99; BMI 43.4; BMI 43.5; BMI 36.6; BMI 36.7
--- NOTE | 2017-12-25 13:12 | EKG12_ITS ---
Test Reason : DAVID Blood Pressure : / mmHG Vent. Rate : 046 BPM Atrial Rate : 055 BPM P-R Int : 000 ms QRS Dur : 084 ms QT Int : 402 ms P-R-T Axes : 000 065 002 degrees QTc Int : 351 ms Atrial fibrillation with slow ventricular response ST & T wave abnormality, consider anterior ischemia Abnormal ECG Confirmed by AMANDA LOMBARDI ([id number]), supervising editor trailer DIANA GALVEZ ([id number]) on 12/28/2017 2:07:38 PM Referred By: TOMASA Confirmed By:AMANDA LOMBARDI
[2017-12-25] MEDS: MethylPREDNISolone 125 MG/2 ML Vial IV (13:57)
[2017-12-25] MEDS: 0.9% Normal Saline 1,000 ML 999 ML IV (13:57)
[2017-12-25] MEDS: Ipratropium/Albuterol Sulfate 3 ML AMPUL.NEB INHALATION ×3 (13:59→23:20)
[2017-12-25 14:15] LABS: Base Excess 3 mmol/L (-2 to +2); Bicarbonate 27.3 mmol/L (22-26); Blood Gas Specimen Type ART; O2 Delivery Device Nasal Can; PO2 82 mmHG (75-100); SITE R Brachial; SO2 96 % (95-99); Time Given 1450; Total Carbon Dioxide 28 mmol/L; pCO2 39.7 mmHg (35-45); pH 7.45 (7.35-7.45)
[2017-12-25 15:17] LABS: Absolute Lymphocyte Count 2.35 X10^3/ul (0.83-4.51); Absolute Neutrophil Count 5.5 X10^3/uL (2.0-7.7); Basophil# 0.02 X10^3/uL; Basophil% 0.2 % (0-1); Eosinophil# 0.16 X10^3/uL; Eosinophils% 1.8 % (0-5); Hematocrit 37.2 % (37-47); Hemoglobin 11.5 g/dl (12.0-15.0); Lymphocyte # 2.35 X10^3/ul (4.0); Lymphocyte % 26.9 % (19-41); Mean Corp Hgb Conc 30.9 g/gl (32-36); Mean Corpuscular Hgb 27.4 pg (27.0-32.0); Mean Corpuscular Volume 88.6 fL (81-99); Mean Platelet Vol. 11.2 fl (6.2-12.0); Neutrophil # 5.49 X10^3/uL (2.7-7.7); Neutrophil % 62.8 % (47-70); Platelet Count 286 K/mm3 (150-450); RBC Distribution Width CV 18.7 % (11.6-14.6); RBC Distribution Width SD 59.8 fl (35.1-43.9); White Blood Count 8.8 K/mm3 (4.4-11.0)
[2017-12-25 15:19] LABS: POSITIVE COUNT NO; POSITIVE DIFFERENTIAL NO; POSITIVE MORPHOLOGY NO
[2017-12-25 15:32] LABS: Prothrombin Time (Protime)PT. 22.9 SECONDS (11.7-14.9)
[2017-12-25 15:33] LABS: Partial Thromboplast Time 34.7 Seconds (24.1-36.2)
[2017-12-25 15:36] LABS: Lactic Acid 0.8 mmol/L (0.4-2.0)
[2017-12-25 15:43] LABS: ALB/GLOB Ratio 0.8 RATIO (0.9-2.4); AST(SGOT) 24 U/L (15-37); Alanine Aminotransfer ALT/SGPT 21 U/L (13-56); Albumin, Serum 2.9 g/dL (3.2-5.0); Alkaline Phosphatase 94 U/L (45-117); Anion Gap 6 (5-15); BUN 34 mg/dL (7-18); BUN/Creat Ratio 16.4 RATIO (10-20); Calcium,Total 8.1 mg/dL (8.5-10.1); Chloride 102 mmol/L (98-107); Creatinine, Serum 2.07 mg/dL (0.55-1.02); EST Glomerular Filtration Rate 26 mL/min (>60); Est Glom Filt Rate - Afr Amer 31 mL/min (>60); Estimated Creatinine Clearance 21.26 ml/min; Globulin 3.6 g/dL (2.2-4.2); Glucose 114 mg/dL (74-106); Lipase 45 U/L (73-393); Potassium 4.2 mmol/L (3.5-5.1); Protein, Total 6.5 g/dL (6.4-8.2); Sodium Level 136 mmol/L (136-145); Thyroid Stim Hormone (TSH) 1.41 uIU/mL (0.358-3.74)
--- NOTE | 2017-12-25 15:50 | RAD_ITS ---
STUDY: X-RAY CHEST REASON FOR EXAM: Female, 62 years old. Hypotension. TECHNIQUE: PA and lateral views of the chest. COMPARISON: December 23, 2017 and November 20, 2017. FINDINGS: Telemetry wires overlie the chest. The lungs are well-expanded. There is no acute infiltrate or mass There is no demonstrated pleural abnormality. Normal size heart. Normal mediastinum and sangeeta. Normal visualized pulmonary arteries. Normal visualized aortic arch and descending thoracic aorta. There are diffuse degenerative changes of the visualized thoracic spine. Normal visualized ribs, clavicles, and shoulders. There is no demonstrated abnormality of the visualized soft tissue structures of the upper abdomen. RAD/Chest PA and Lateral IMPRESSION: No acute cardiopulmonary disease or interval change. Electronically Signed: Lazaro Freeman DO at 16:24 EST Tel [phone], Service support ,
[2017-12-25 16:30] LABS: Mucous, Urine 0 SEEN /hpf (<or=2+); Red Blood Cells-Urine 0 SEEN /hpf (0-5); White Blood Cells 0 SEEN /hpf (0-5)
[2017-12-25 16:38] LABS: Color, Urine Yellow (Yellow); Glucose, Dipstick Normal (Normal); Ketone-Dipstick Negative (Negative); Leukocyte Esterase-Dipstick 25 /ul (Negative); Nitrite-Dipstick Negative (Negative); Occult Blood-Urine Negative /ul (Negative); Protein-Dipstick Negative (Negative); Urine Bilirubin Dipstick Negative (Negative); Urine Clarity Clear (Clear); Urine Urobilinogen Normal (Normal)
--- NOTE | 2017-12-25 16:50 | PCM.HP.STD ---
Problem List (1) Abdominal pain Status: Acute (2) ABDULLAHI (obstructive sleep apnea) Status: Chronic (3) Tobacco dependence due to cigarettes Status: Chronic (4) Non-compliance Status: Chronic (5) Syncope Status: Resolved Qualifiers: (6) Hypersomnia Status: Chronic (7) Anemia Status: Chronic Comment: Normocytic (8) HTN (hypertension) Status: Chronic Qualifiers: (9) Morbid obesity with BMI of 40.0-44.9, adult Status: Chronic (10) COPD (chronic obstructive pulmonary disease) Status: Chronic Qualifiers: (11) Chronic pain Status: Chronic Qualifiers: (12) Chronic atrial fibrillation Status: Chronic (13) Chronic hypoxemic respiratory failure Status: Chronic Comment: non-compliant with oxygen (14) Hyperlipemia Status: Chronic Qualifiers: (15) Type 2 diabetes mellitus Status: Chronic Qualifiers: Comment: uncontrolled (16) GERD (gastroesophageal reflux disease) Status: Chronic Qualifiers: (17) Anxiety Status: Chronic (18) Insomnia Status: Chronic Qualifiers: History of Present Illness Date of Admission: 12/25/17 Chief Complaint: Abdominal pain, poor appetite. The patient is a 62 year old F who presents emergency room due to abdominal pain, poor appetite. Patient is fairly drowsy during assessment, closing eyes periodically during conversation. Speech muffled. She states she has only been able to drink juice. She denies emesis, denies diarrhea. Complains of generalized weakness. Denies urinary symptoms. Denies syncope, presyncope. Patient's primary care physician ordered CT of abdomen and pelvis due to lower abdominal pain which was completed 12/23/2017 and showed focal infiltrate in the posterior medial segment of the right lower lobe. Sludge or small gallstones seen in the gallbladder. Patient was seen by PCP 2 days ago for lower abdominal pain, lethargy and confusion. She has a past medical history of COPD, chronic atrial fibrillation, hypertension, type 2 diabetes mellitus, hyperlipidemia, GERD, anxiety, chronic hypoxic respiratory failure, obesity, ABDULLAHI. Past Medical History Past Medical History (Chronic Problems): Chronic Problems (Last Reviewed 12/14/17 @ 13:10 by BRIGIDO PhilippeC) ABDULLAHI (obstructive sleep apnea) (Chronic) Tobacco dependence due to cigarettes (Chronic) Non-compliance (Chronic) Hypersomnia (Chronic) Anemia (Chronic) Normocytic HTN (hypertension) (Chronic) Morbid obesity with BMI of 40.0-44.9, adult (Chronic) COPD (chronic obstructive pulmonary disease) (Chronic) Chronic pain (Chronic) Chronic atrial fibrillation (Chronic) Chronic hypoxemic respiratory failure (Chronic) non-compliant with oxygen Hyperlipemia (Chronic) Type 2 diabetes mellitus (Chronic) uncontrolled GERD (gastroesophageal reflux disease) (Chronic) Anxiety (Chronic) Insomnia (Chronic) Medical History: Medical History (Last Reviewed 12/14/17 @ 13:10 by Marylu Howell NP-C) Hypersomnia (Chronic) G47.10 Anemia (Chronic) D64.9 Hypomagnesemia (Chronic) E83.42 HTN (hypertension) (Chronic) I10 Morbid obesity with BMI of 40.0-44.9, adult (Chronic) E66.01, Z68.41 COPD (chronic obstructive pulmonary disease) (Chronic) J44.9 Chronic pain (Chronic) G89.29 Chronic atrial fibrillation (Chronic) I48.2 Chronic hypoxemic respiratory failure (Chronic) J96.11 non-compliant with oxygen Hyperlipemia (Chronic) E78.5 Type 2 diabetes mellitus (Chronic) E11.9 uncontrolled GERD (gastroesophageal reflux disease) (Chronic) K21.9 Anxiety (Chronic) F41.9 Insomnia (Chronic) G47.00 Osteoporosis M81.0 Chest pain (Resolved) R07.9 Cardiomyopathy (Ruled-out) I42.9 EF in Oct 2015 45-50 Left ankle pain (Inactive) M25.572 Non-compliance (Inactive) Z91.19 withn follow up with pulmonary Allergies venom-honey bee [bee venom (honey bee)] Allergy (Verified 12/25/17 13:04) Swelling levofloxacin [From Levaquin] Adverse Reaction (Verified 12/25/17 13:04) Nausea oxycodone HCl [From Percocet] Adverse Reaction (Verified 12/25/17 13:04) Nausea Penicillins Adverse Reaction (Verified 12/25/17 13:04) Nausea/Vom/Diarrhea Home Medications: Ambulatory Orders Medication Instructions Recorded Albuterol Aerosols [Ventolin 2.5 mg INHALATION Q2H PRN PRN 05/12/17 Aerosols] Atorvastatin Calcium [Lipitor] 40 mg PO QHS 05/12/17 Budesonide/Formoterol 160/4.5 2 puff INHALATION BID 05/12/17 [Symbicort 160/4.5 Mcg Inhaler (SP)] Bupropion HCl [Bupropion HCl Sr] 150 mg PO BID 05/12/17 Buspirone HCl 10 mg PO TID 05/12/17 Famotidine [Pepcid] 20 mg PO BID 05/12/17 Glucagon,Human Recombinant 1 mg IM PRN PRN 05/12/17 [Glucagon Emergency Kit] Ipratropium/Albuterol Sulfate 3 ml INHALATION Q6H PRN 05/12/17 [Duoneb] Lisinopril [Prinivil] 5 mg PO DAILY 05/12/17 Propranolol HCl [Inderal (Beta 10 mg PO BID 05/12/17 Rubén)] Sennosides/Docusate Sodium 2 tab PO DAILY PRN PRN 05/12/17 [Senna-Docusate Sodium Tablet] Mag Hydrox/Al Hydrox/Simeth 30 ml PO Q6H PRN PRN 08/11/17 [Mylanta II] docusate sodium 100 mg capsule 100 mg PO QHS 09/01/17 Rivaroxaban [Xarelto] 20 mg PO DAILY #0 11/03/17 Calcium Carbonate [Tums] 500 mg PO Q6H PRN PRN 11/20/17 Insulin Lispro [Humalog KwikPen] See Protocol SUBCUT 4X/DAYCM 11/24/17 insuln.pen Benzonatate [Tessalon Perle] 100 mg PO TID PRN PRN 12/23/17 Bisacodyl [Dulcolax] 10 mg RECTAL DAILY 12/23/17 Duloxetine HCl 60 mg PO DAILY 12/23/17 Furosemide [Lasix] 40 mg PO BIDLX 12/23/17 Gabapentin [Neurontin] 100 mg PO TIDCM 12/23/17 Guaifenesin [Mucinex] 1,200 mg PO BID PRN 12/23/17 Hydrocodone/Acetaminophen 1 each PO Q6H PRN 12/23/17 [Hydrocodon-Acetaminophen 5-325] Loperamide [Imodium] 2 mg PO PRN PRN 12/23/17 Polyethylene Glycol 3350 [Miralax] 17 gm PO DAILY 12/23/17 Acetaminophen 650 mg PO PRN PRN 12/25/17 Digoxin 250 mcg PO DAILY 12/25/17 Diltiazem HCl [Diltiazem 12Hr ER] 120 mg PO BID 12/25/17 Insulin Glargine,Hum.rec.anlog 20 unit SQ QHS 12/25/17 [Basaglar Kwikpen U-100] Magnesium Hydroxide [Milk of 30 ml PO DAILY 12/25/17 Magnesia] Ondansetron HCl [Zofran] 4 mg PO Q6H PRN PRN 12/25/17 Surgical History: Surgical History (Last Reviewed 12/14/17 @ 13:10 by FRANKLIN Philippe) Cataract extraction status Z98.49 History of lumbar surgery Z98.890 History of tonsillectomy and adenoidectomy Z98.890 History of total hysterectomy Z90.710 Surgical History: hysterectomy, tonsillectomy, - - Lumbar surgery. 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 Sibling Family History: Family History (Last Reviewed 12/25/17 @ 16:55 by FRANKLIN Cardenas) Sister Arthritis Diabetes Father Cancer Aunt Diabetes History Items: Asthma, COPD, Hypertension Review of Systems Constitutional: Reports: Malaise, Weakness. Denies: Chills, Fever HEENT: Denies: Head Aches, Sinus Congestion, Sinus Drainage Cardiovascular: Denies: Chest Pain, Light Headedness, Palpitations, Syncope Respiratory: Reports: Cough, Shortness of breath upon exertion, Wheezing Gastrointestinal: Reports: Abdominal Pain, Nausea. Denies: Diarrhea, Hematochezia, Melena, Vomiting Genitourinary: Reports: Incontinence. Denies: Dysuria, Hematuria, Urgency Musculoskeletal: Denies: Joint Pain, Joint Tenderness Skin: Denies: Rash, Wounds Neurological: Denies: Numbness, Tingling, Focal weakness Psychiatric: Reports: Anxiety, Depression Hematologic/ Lymphatic: Denies: Easy Bruising, Easy Bleeding VTE Information - Inpt Only VTE Present on Admission: No VTE Mechan Device Prophylaxis: None VTE Pharm Prophylaxis ordered?: Yes - Physical Exam General: Lethargic - Ill appearance HEENT: Atraumatic, PERRLA, EOMI, Normocephalic Oral: Dry Mucosa Neck: Supple, No JVD, Negative Carotid Bruits Lungs: Diminished, Wheezes Cardiovascular: Bradycardic, - - Atrial fibrillation Abdomen: Bowel Sounds Present, Soft, Non-Distended, Obese, Tender - RUQ Extremities: No clubbing, No cyanosis, No edema, Capillary Refill Less than 3 Seconds Skin: No rashes, No breakdown Musculoskeletal: No Tenderness to Palpation of Joints or Extremities Neurological: Cranial nerves II-XII grossly intact, Neuro grossly intact Psych/Mental Status: Normal Affect Vital Signs Temp Pulse Resp BP Pulse Ox 96.7 F L 46 L 16 101/51 L 97 12/25/17 15:48 12/25/17 16:02 12/25/17 16:02 12/25/17 15:42 12/25/17 16:02 Oxygen Flow Rate (L/min) 3 Oxygen Delivery Method Nasal Cannula Weight: 230 lb Body Mass Index (BMI) 43.4 Finger Stick Blood Glucose 364 Laboratory Tests Past 24 Hrs 12/25/17 12/25/17 12/25/17 14:10 15:05 15:05 WBC 8.8 RBC 4.20 Hgb 11.5 L Hct 37.2 MCV 88.6 MCH 27.4 MCHC 30.9 L RDW 18.7 H RDW Differential 59.8 H Plt Count 286 MPV 11.2 Immature Gran % (Auto) 0.300 Neut % (Auto) 62.8 Lymph % (Auto) 26.9 Navarro % (Auto) 8.0 Eos % (Auto) 1.8 Baso % (Auto) 0.2 Absolute Neuts (auto) 5.5 Absolute Lymphs (auto) 2.35 Total Counted Not Reportable PT 22.9 H INR 2.0 APTT 34.7 Specimen Type ART Sample Site R Brachial pH 7.45 Bicarbonate Actual 27.3 H POC Total CO2 28 Base Excess 3 H O2 Saturation 96 ABG pCO2 39.7 ABG pO2 82 Dao Test NA O2 Delivery Device Nasal Can Liter Flow 2.0 Blood Gas Notified Whom ED Blood Gas Notified Time 1450 Sodium Potassium Chloride Carbon Dioxide Anion Gap BUN Creatinine Estim Creat Clear Calc Est GFR (MDRD) Af Amer Est GFR (MDRD) Non-Af BUN/Creatinine Ratio Glucose Lactic Acid Calcium Total Bilirubin AST ALT Alkaline Phosphatase Troponin I Total Protein Albumin Globulin Albumin/Globulin Ratio Lipase TSH Urine Color Urine Clarity Urine pH Ur Specific [place] Urine Protein Urine Glucose (UA) Urine Ketones Urine Occult Blood Urine Nitrite Urine Bilirubin Urine Urobilinogen Ur Leukocyte Esterase Urine RBC Urine WBC Ur Squamous Epith Cells Urine Bacteria Urine Mucus 12/25/17 12/25/17 12/25/17 15:05 15:05 16:23 WBC RBC Hgb Hct MCV MCH MCHC RDW RDW Differential Plt Count MPV Immature Gran % (Auto) Neut % (Auto) Lymph % (Auto) Navarro % (Auto) Eos % (Auto) Baso % (Auto) Absolute Neuts (auto) Absolute Lymphs (auto) Total Counted PT INR APTT Specimen Type Sample Site pH Bicarbonate Actual POC Total CO2 Base Excess O2 Saturation ABG pCO2 ABG pO2 Dao Test O2 Delivery Device Liter Flow Blood Gas Notified Whom Blood Gas Notified Time Sodium 136 Potassium 4.2 Chloride 102 Carbon Dioxide 28.0 Anion Gap 6 BUN 34 H Creatinine 2.07 H Estim Creat Clear Calc 21.26 Est GFR (MDRD) Af Amer 31 L Est GFR (MDRD) Non-Af 26 L BUN/Creatinine Ratio 16.4 Glucose 114 H Lactic Acid 0.8 Calcium 8.1 L Total Bilirubin 0.60 AST 24 ALT 21 Alkaline Phosphatase 94 Troponin I < 0.015 Total Protein 6.5 Albumin 2.9 L Globulin 3.6 Albumin/Globulin Ratio 0.8 L Lipase 45 L TSH 1.41 Urine Color Pending Urine Clarity Pending Urine pH Pending Ur Specific [place] Pending Urine Protein Pending Urine Glucose (UA) Pending Urine Ketones Pending Urine Occult Blood Pending Urine Nitrite Pending Urine Bilirubin Pending Urine Urobilinogen Pending Ur Leukocyte Esterase Pending Urine RBC Pending Urine WBC Pending Ur Squamous Epith Cells Pending Urine Bacteria Pending Urine Mucus Pending Assessment/Plan All Active Problems (Last Reviewed 12/14/17 @ 13:10 by Marylu Howell, THANG-C) Abdominal pain (Acute) Acute and chronic respiratory failure with hypoxia (Resolved) Acute bronchitis due to human metapneumovirus (Resolved) Atrial fibrillation with RVR (Resolved) COPD with acute exacerbation (Resolved) Gram-negative pneumonia (Resolved) Syncope (Resolved) Cardiomyopathy (Ruled-out) Patient is a 61-year-old female admitted 07/10/2017 due to syncope. She has a past medical history of COPD, chronic atrial fibrillation, hypertension, type 2 diabetes mellitus, hyperlipidemia, GERD, anxiety, chronic hypoxic respiratory failure, obesity, ABDULLAHI. 1. Acute healthcare acquired pneumonia-CT of abdomen 12/23/2017 showed right lower lobe infiltrate infiltrate. Blood cultures drawn in ER, pending. Urine for strep and Legionella. Sputum culture. Albuterol and DuoNeb aerosols. IV Zosyn and IV vancomycin. 2. Acute kidney injury-suspect secondary to dehydration. IV fluids. Trend BMP. 3. Acute infectious and metabolic encephalopathy-Obtain brain CT. Secondary to #1/#2. UA negative. 4. Abdominal pain-CT of abdomen and pelvis obtained as outpatient 12/23/2017 which showed sludge or small gallstones in the gallbladder. Patient with right upper quadrant tenderness. Obtain right upper quadrant ultrasound. If abnormal, consider surgery consult. 5. Bradycardia-suspect secondary to medication regimen including digoxin, Cardizem, propanolol regimen. Hold rate control regimen. Monitor telemetry. Digoxin level pending. 6. Chronic hypoxic respiratory failure due to chronic severe COPD-continue supplement oxygen to maintain O2 at or above 90%. Albuterol and DuoNeb aerosols. 7. Chronic atrial fibrillation-continue Xarelto. Hold Cardizem, propanolol, digoxin given bradycardia. 8. Type 2 diabetes mellitus-continue home insulin regimen. Accu-Cheks before meals at bedtime. 9. Hypertension-stable, home BP regimen on hold due to bradycardia/JAMIE. 10. Hyperlipidemia-continue statin. 11. History of mild cardiomyopathy- echo 07/11/17 with EF 75%. 12. GERD-continue home famotidine regimen. 13. Anxiety-continue home buspirone, bupropion regimen. 14. Obesity-encouraged diet and lifestyle modifications. 15. Tobacco dependence-encourage smoking cessation. 60. Obstructive sleep apnea-unclear if patient wears CPAP/BiPAP. Follows with pulmonary medicine. DVT prophylaxis-Xarelto Discharge planning: Return to SNF at discharge. This patient was seen by FRANKLIN Cardenas under the supervision of Dr. Esposito.
[2017-12-25 16:54] LABS: Bacteria 3+ /hpf (None Seen); Squamous Epithelial Cells - UA 0-5 SEEN /hpf (5-10)
--- NOTE | 2017-12-25 17:07 | CT_ITS ---
STUDY: CT BRAIN WITHOUT CONTRAST REASON FOR EXAM: Female, 62 years old. Decreased level of consciousness RADIATION DOSAGE (If Supplied By Facility): CTDIvol = ( 60.81 ) mGy, DLP = ( 998.67 ) mGycm TECHNIQUE: Transaxial CT imaging of the brain was performed without administration of intravenous contrast material. Individualized dose optimization techniques were used for this CT. COMPARISON: December 23, 2017 FINDINGS: Normal soft tissue structures. Normal calvarium. There is mild cerebral atrophy with widening of the extra-axial spaces and ventricular dilatation. There are areas of decreased attenuation within the white matter tracts of the supratentorial brain, consistent with microvascular disease changes. Normal basal ganglia and thalami. Normal brainstem. Normal cerebellum. There is no intracranial hemorrhage. There are no findings of an acute ischemic infarction. Normal visualized paranasal sinuses. CT/Brain/Head without Contrast IMPRESSION: Chronic involutional changes of the brain. Electronically Signed: Musa Patel MD at 17:54 EST , Service support ,
--- NOTE | 2017-12-25 17:38 | US_ITS ---
STUDY: ABDOMINAL ULTRASOUND - RIGHT UPPER QUADRANT REASON FOR VISIT: Female, 62 years old. Right upper quadrant pain. TECHNIQUE: Ultrasound evaluation of the right upper quadrant was performed with real-time and static veliz-scale imaging. TECHNICAL QUALITY: Examination limited due to the patient?s condition. COMPARISON: CT of the abdomen and pelvis, December 23, 2017. FINDINGS: Liver: The liver measures 16.8 cm. There is minimal increased echogenicity consistent with mild fatty infiltration. The bile ducts are within normal limits. There is hepatic color flow. The direction of portal flow is hepatopetal. There is no demonstrated mass lesion. Gallbladder: Normal distended gallbladder. The gallbladder wall measures 2.7 mm. There is a negative sonographic Pacheco's sign. There is no pericholecystic fluid. There are no gallstones. Common Bile Duct (C.B.D.): The common bile duct measures 3.6 mm. Pancreas: Normal size of the head, body and tail of the pancreas. There is normal echogenicity of the pancreas. There is no demonstrated pancreatic mass or cyst. Right Kidney: Normal size of the right kidney. The right kidney measures 11.4 cm. Normal renal cortex. The right cortex measures 1.1 cm. There is no demonstrated renal mass or cyst. There is no right hydronephrosis. US/Abdomen Limited IMPRESSION: Question mild fatty infiltration of the liver without mass. No other sonographic evidence of right upper quadrant abnormality. Electronically Signed: Lazaro Freeman DO at 19:15 EST Tel [phone], Service support ,
--- NOTE | 2017-12-25 17:39 | ED.DCSUM_ITS ---
- ER Visit Summary Date of Service: 12/25/17 Chief Complaint: Shortness of breath History of Present Illness: The patient is a [address] Camden Rolon. Patient is lethargic and a poor informant. She does arouse to voice. She reports only shortness of breath and dysuria. She denies any fever or chills. No sore throat or cough. No chest pain, abdominal pain, nausea, vomiting, or diarrhea. She denies any rash or headache. She does report that she has generalized weakness. Physical Examination: Vitals: 96.7, 101/51, 50, 16, 97% on 3 L nasal cannula. General: Well-nourished and well-developed. Head: Normocephalic atraumatic. Neck: Supple, no lymphadenopathy. No JVD. Nontender. Cardiovascular: Irregular bradycardic rhythm. No murmurs. Respiratory: No respiratory distress. Mild wheezing bilaterally with good air movement. Abdominal: Soft, mild suprapubic tenderness to palpation, nondistended, normal bowel sounds. No guarding, rebound, or peritoneal signs. Back: Nontender. Extremities: Nontender, no edema. Skin: Normal color, no rash. Neurologic: Lethargic, but arouses to voice. Answers questions appropriately. Cranial nerves II through XII are intact. Normal strength and sensation. Psych: Normal affect. Test Results: EKG is A. fib at [address] depression. The only change since December 23 is her rate. CBC is remarkable for a hemoglobin of 11.5. Chem-7 is more for calcium of 8.1, glucose 114, BUN 34, creatinine 2.07. Of note her creatinine is range between 0.59-1.21 in 2018. LFTs marked for an albumin 2.9. Lipase is normal. INR is 2.0. PTT is 34.7. UA is negative. Troponin is negative. TSH is 1.41. Lactic acid is 0.8. Chest x-ray is rotated, but shows no acute disease. CT brain shows no acute disease on my read. ABG shows a pH of 7.45 with a bicarb of 27.3 and a CO2 of 39.7. Digoxin level is pending. CT abdomen 2 days ago showed a right lower lobe focal infiltrate. Emergency Department Course and Treatment: Patient was treated albuterol Atro vent aerosols. She was given Solu-Medrol IV, Zosyn and vancomycin IV. She was given a liter of normal saline. Treatment Plan: Patient was discussed with Dr. Esposito. She will be admitted to the hospital for further evaluation and treatment. Disposition: Admitted in serious condition. Impression: 1. Atrial fibrillation with slow ventricular response, on digoxin/Cardizem/propranolol. 2. Hypertension. 3. Coagulopathy on Xarelto. 4. Acute renal insufficiency. 5. Dehydration. 6. Pneumonia, healthcare acquired. This note was generated with [employer] dictation software. It may contain incorrect words, spelling, and punctuation that were not noted in review of the chart prior to signing ED Disposition - Plan for ED Patient: Chief Complaint: Hypotension Referrals: Camden Burger [Primary Care Provider] -
[2017-12-25 18:21] LABS: Digoxin Level 3.54 ng/mL (0.80-2.00)
[2017-12-25 18:34] LABS: Amphetamine Urine VISTA NEGATIVE (<1000 ng/mL); Barbiturate Urine VISTA NEGATIVE (< 200 ng/mL); Benzodiazepine Urine VISTA NEGATIVE (< 200 ng/mL); Cocaine Urine VISTA NEGATIVE (< 300 ng/mL); Ecstacy Urine VISTA POSITIVE (< 500 ng/mL); Methadone Urine VISTA NEGATIVE (< 300 ng/mL); PCP Urine VISTA NEGATIVE (< 25 ng/mL); THC Urine VISTA NEGATIVE (< 50 ng/mL); Vista UDS pH Range 7
[2017-12-25 19:32] LABS: Magnesium 2.4 mg/dL (1.6-2.6)
--- NOTE | 2017-12-25 20:07 | PCM.RX.CS ---
Consult Pharmacy has been consulted to manage selected antiobiotic: Vancomycin Type of Consult: New start Suspected Infection: Skin/Soft tissue, Pneumonia Prior Doses of Antibiotics Received/Current Regimen: Vancomycin 1500mg IV x1 in the ER 12/25/17 at 1815 Labs: Sodium 136 mmol/L (136-145) 12/25/17 15:05 Potassium 4.2 mmol/L (3.5-5.1) 12/25/17 15:05 Chloride 102 mmol/L (98-107) 12/25/17 15:05 Carbon Dioxide 28.0 mmol/L (21.0-32.0) 12/25/17 15:05 Anion Gap 6 (5-15) 12/25/17 15:05 BUN 34 mg/dL (7-18) H 12/25/17 15:05 Creatinine 2.07 mg/dL (0.55-1.02) H 12/25/17 15:05 Est GFR (MDRD) Af Amer 31 mL/min (>60) L 12/25/17 15:05 Est GFR (MDRD) Non-Af 26 mL/min (>60) L 12/25/17 15:05 BUN/Creatinine Ratio 16.4 RATIO (10-20) 12/25/17 15:05 Glucose 114 mg/dL (74-106) H 12/25/17 15:05 Microbiology: Pending Weight used for dosin kg Estimated Creatinine Clearance: 21ml/min Goal Trough: 10-15 mcg/mL Pharmacy Plan for Drug Dosing: Recommend Vancomycin 1500mg IV q48h starting 12/27/17 at 1800 based on current renal function. Pharmacy will continue to monitor renal function and adjust dose if renal function improves. Pharmacy Service will continue to monitor and adjust dosing as required. Follow-Up Labs: Trough Vancomycin
[2017-12-25] MEDS: 0.9% Normal Saline 1,000 ML 150 ML IV (20:22)
--- NOTE | 2017-12-25 21:07 | CPS ---
Patient is refusing to wear BIPAP.Patient understand if need develops she will wear BIPAP
[2017-12-25 23:06] LABS: Bedside Glucose 316 mg/dL (70-110)
[2017-12-25] MEDS: 0.9% NaCl Peripheral Flush Adult/Peds IV (23:13)
[2017-12-25] MEDS: Insulin Lispro 100 UNIT/ML INSULN.PEN SC (23:13)
[2017-12-25] MEDS: Piperacil/Tazobactam 3.375 GM/50 ML ML IV (23:13)
[2017-12-26] VITALS (20 sets, daily range): BP systolic 104–131; BP diastolic 47–88; PULSE 18–78; RESP 16–20; TEMP 36.4–36.7; O2SAT 94–98
[2017-12-26] MEDS: 0.9% Normal Saline 1,000 ML 150 ML IV ×2 (02:35→11:13)
[2017-12-26] MEDS: Ipratropium/Albuterol Sulfate 3 ML AMPUL.NEB INHALATION ×6 (03:10→23:07)
[2017-12-26] MEDS: Piperacil/Tazobactam 3.375 GM/50 ML ML IV ×3 (05:13→21:20)
[2017-12-26] MEDS: Insulin Lispro 100 UNIT/ML INSULN.PEN SC ×4 (05:46→21:24)
[2017-12-26 05:50] LABS: Bedside Glucose 277 mg/dL (70-110)
--- NOTE | 2017-12-26 05:55 | EKG12_ITS ---
Test Reason : AM EKG Blood Pressure : / mmHG Vent. Rate : 058 BPM Atrial Rate : 032 BPM P-R Int : 000 ms QRS Dur : 084 ms QT Int : 374 ms P-R-T Axes : 000 063 -51 degrees QTc Int : 367 ms Atrial fibrillation with slow ventricular response ST & T wave abnormality, consider inferior ischemia Abnormal ECG When compared with ECG of 25-DEC-2017 13:22, MANUAL COMPARISON REQUIRED, DATA IS UNCONFIRMED Confirmed by ELSY DELGAOD, LUCILA ([id number]), photo editor DIANA GALVEZ ([id number]) on 12/30/2017 11:33:33 AM Referred By: JULIETH Confirmed By:LUCILA CHIN MD
[2017-12-26 06:52] LABS: Hematocrit 33.6 % (37-47); Hemoglobin 10.5 g/dl (12.0-15.0); Mean Corp Hgb Conc 31.3 g/gl (32-36); Mean Corpuscular Hgb 27.3 pg (27.0-32.0); Mean Corpuscular Volume 87.3 fL (81-99); Mean Platelet Vol. 11.6 fl (6.2-12.0); Platelet Count 226 K/mm3 (150-450); RBC Distribution Width CV 18.1 % (11.6-14.6); RBC Distribution Width SD 56.7 fl (35.1-43.9); Red Blood Count 3.85 M/mm3 (4.2-5.4); White Blood Count 5.3 K/mm3 (4.4-11.0)
[2017-12-26 06:57] LABS: Scan Indicated on CBC? Y/N NO
[2017-12-26 07:27] LABS: Anion Gap 10 (5-15); BUN 29 mg/dL (7-18); BUN/Creat Ratio 27.9 RATIO (10-20); Calcium,Total 7.9 mg/dL (8.5-10.1); Chloride 107 mmol/L (98-107); Creatinine, Serum 1.04 mg/dL (0.55-1.02); EST Glomerular Filtration Rate 57 mL/min (>60); Est Glom Filt Rate - Afr Amer 69 mL/min (>60); Estimated Creatinine Clearance 42.32 ml/min; Glucose 261 mg/dL (74-106); Potassium 4.1 mmol/L (3.5-5.1); Sodium Level 141 mmol/L (136-145)
--- NOTE | 2017-12-26 10:35 | PCM.RX.CS ---
Consult Pharmacy has been consulted to manage selected antiobiotic: Vancomycin Type of Consult: Follow-up Suspected Infection: Pneumonia Prior Doses of Antibiotics Received/Current Regimen: 1500mg IV was given in ER on 12/25/17 at 18:15. Labs: Sodium 141 mmol/L (136-145) 12/26/17 06:04 Potassium 4.1 mmol/L (3.5-5.1) 12/26/17 06:04 Chloride 107 mmol/L (98-107) 12/26/17 06:04 Carbon Dioxide 24.0 mmol/L (21.0-32.0) 12/26/17 06:04 Anion Gap 10 (5-15) 12/26/17 06:04 BUN 29 mg/dL (7-18) H 12/26/17 06:04 Creatinine 1.04 mg/dL (0.55-1.02) H 12/26/17 06:04 Est GFR (MDRD) Af Amer 69 mL/min (>60) 12/26/17 06:04 Est GFR (MDRD) Non-Af 57 mL/min (>60) L 12/26/17 06:04 BUN/Creatinine Ratio 27.9 RATIO (10-20) H 12/26/17 06:04 Glucose 261 mg/dL (74-106) H 12/26/17 06:04 Weight used for dosin.1 kg Estimated Creatinine Clearance: 42 ml/min Goal Trough: 10-15 mcg/mL Pharmacy Plan for Drug Dosing: The patient's renal function (Scr = 1.04, CrCl = 42) improved from last night so will change dosing from 1500mg IV q48h to 1250mg IV q24h to start tonight at 18:00. A trough will be obtained before the 3rd total dose. Pharmacy Service will continue to monitor and adjust dosing as required. Follow-Up Labs: Trough Vancomycin Labs to be done on [date and time ordered]: 12/27/17 at 17:30
[2017-12-26] MEDS: buPROPion (SR) 150 MG Tablet.SA PO ×2 (11:17→21:24)
[2017-12-26] MEDS: Gabapentin 100 MG Capsule PO ×2 (11:17→16:59)
[2017-12-26] MEDS: guaiFENesin 1,200 MG Tablet 1200 MG PO ×2 (11:17→21:24)
[2017-12-26] MEDS: Famotidine 20 MG Tablet PO (11:17)
[2017-12-26] MEDS: DULoxetine Hcl 60 MG Capsule PO (11:17)
--- NOTE | 2017-12-26 11:21 | PCM.PROGNOTE ---
<Marie Hoover - Last Filed: 12/26/17 11:34> Subjective: Patient seen and examined. More alert on assessment. Complains of continued right-sided abdominal pain. No other complaints. - Physical Exam General: Alert, Oriented x3, Cooperative HEENT: Atraumatic, PERRLA, EOMI, Normocephalic Oral: Dry Mucosa Neck: Supple, No JVD, Negative Carotid Bruits Lungs: Diminished, Wheezes Cardiovascular: - - Atrial fibrillation, rate controlled Abdomen: Bowel Sounds Present, Soft, Non-Distended, Obese, Tender - Right-sided Extremities: No clubbing, No cyanosis, No edema, Capillary Refill Less than 3 Seconds Skin: No rashes, No breakdown Musculoskeletal: No Tenderness to Palpation of Joints or Extremities Neurological: Cranial nerves II-XII grossly intact, Neuro grossly intact Psych/Mental Status: Flat Affect Vital Signs Temp Pulse Resp BP Pulse Ox 97.8 F 78 18 118/68 95 12/26/17 11:05 12/26/17 11:05 12/26/17 11:05 12/26/17 11:05 12/26/17 11:05 Oxygen Flow Rate (L/min) 2 Oxygen Delivery Method Nasal Cannula Weight: 194 lb 3.636 oz Body Mass Index (BMI) 36.6 Finger Stick Blood Glucose 364 Intake and Output for Last 24 Hours 12/24/17 12/25/17 12/26/17 23:59 23:59 23:59 Intake Total 5.4 / 2024.4 Balance 5.4 / 2024.4 Microbiology Past 72 Hours 12/25/17 19:25 Respiratory Panel (PCR) - Final Mucosa - Nasopharyngeal 12/25/17 09:46 Streptococcus pneumoniae Antigen (M - Final Urine, Clean Catch 12/25/17 09:46 Legionella Antigen - Final Urine, Clean Catch Laboratory Tests Past 24 Hrs 12/25/17 12/25/17 12/25/17 14:10 15:05 15:05 WBC 8.8 RBC 4.20 Hgb 11.5 L Hct 37.2 MCV 88.6 MCH 27.4 MCHC 30.9 L RDW 18.7 H RDW Differential 59.8 H Plt Count 286 MPV 11.2 Immature Gran % (Auto) 0.300 Neut % (Auto) 62.8 Lymph % (Auto) 26.9 Holmes % (Auto) 8.0 Eos % (Auto) 1.8 Baso % (Auto) 0.2 Absolute Neuts (auto) 5.5 Absolute Lymphs (auto) 2.35 Total Counted Not Reportable PT 22.9 H INR 2.0 APTT 34.7 Specimen Type ART Sample Site R Brachial pH 7.45 Bicarbonate Actual 27.3 H POC Total CO2 28 Base Excess 3 H O2 Saturation 96 ABG pCO2 39.7 ABG pO2 82 Dao Test NA O2 Delivery Device Nasal Can Liter Flow 2.0 Blood Gas Notified Whom ED MD Blood Gas Notified Time 1450 Sodium Potassium Chloride Carbon Dioxide Anion Gap BUN Creatinine Estim Creat Clear Calc Est GFR (MDRD) Af Amer Est GFR (MDRD) Non-Af BUN/Creatinine Ratio Glucose Lactic Acid Calcium Magnesium Total Bilirubin AST ALT Alkaline Phosphatase Troponin I Total Protein Albumin Globulin Albumin/Globulin Ratio Lipase TSH Urine Color Urine Clarity Urine pH Ur Specific [place] Urine Protein Urine Glucose (UA) Urine Ketones Urine Occult Blood Urine Nitrite Urine Bilirubin Urine Urobilinogen Ur Leukocyte Esterase Urine RBC Urine WBC Ur Squamous Epith Cells Urine Bacteria Urine Mucus Digoxin Urine Opiates Screen Urine Methadone Screen Ur Barbiturates Screen Ur Phencyclidine Scrn Ur Amphetamines Screen U Methamphetamin-MDMA U Benzodiazepines Scrn Urine Cocaine Screen U Cannabinoids Screen Ur Drug Screen Comment 12/25/17 12/25/17 12/25/17 15:05 15:05 16:23 WBC RBC Hgb Hct MCV MCH MCHC RDW RDW Differential Plt Count MPV Immature Gran % (Auto) Neut % (Auto) Lymph % (Auto) Holmes % (Auto) Eos % (Auto) Baso % (Auto) Absolute Neuts (auto) Absolute Lymphs (auto) Total Counted PT INR APTT Specimen Type Sample Site pH Bicarbonate Actual POC Total CO2 Base Excess O2 Saturation ABG pCO2 ABG pO2 Dao Test O2 Delivery Device Liter Flow Blood Gas Notified Whom Blood Gas Notified Time Sodium 136 Potassium 4.2 Chloride 102 Carbon Dioxide 28.0 Anion Gap 6 BUN 34 H Creatinine 2.07 H Estim Creat Clear Calc 21.26 Est GFR (MDRD) Af Amer 31 L Est GFR (MDRD) Non-Af 26 L BUN/Creatinine Ratio 16.4 Glucose 114 H Lactic Acid 0.8 Calcium 8.1 L Magnesium Total Bilirubin 0.60 AST 24 ALT 21 Alkaline Phosphatase 94 Troponin I < 0.015 Total Protein 6.5 Albumin 2.9 L Globulin 3.6 Albumin/Globulin Ratio 0.8 L Lipase 45 L TSH 1.41 Urine Color Yellow Urine Clarity Clear Urine pH 5.0 Ur Specific [place] 1.020 Urine Protein Negative Urine Glucose (UA) Normal Urine Ketones Negative Urine Occult Blood Negative Urine Nitrite Negative Urine Bilirubin Negative Urine Urobilinogen Normal Ur Leukocyte Esterase 25 H Urine RBC 0 SEEN Urine WBC 0 SEEN Ur Squamous Epith Cells 0-5 SEEN Urine Bacteria 3+ Urine Mucus 0 SEEN Digoxin Urine Opiates Screen Urine Methadone Screen Ur Barbiturates Screen Ur Phencyclidine Scrn Ur Amphetamines Screen U Methamphetamin-MDMA U Benzodiazepines Scrn Urine Cocaine Screen U Cannabinoids Screen Ur Drug Screen Comment 12/25/17 12/25/17 12/25/17 16:23 16:56 Unknown WBC RBC Hgb Hct MCV MCH MCHC RDW RDW Differential Plt Count MPV Immature Gran % (Auto) Neut % (Auto) Lymph % (Auto) Holmes % (Auto) Eos % (Auto) Baso % (Auto) Absolute Neuts (auto) Absolute Lymphs (auto) Total Counted PT INR APTT Specimen Type Sample Site pH Bicarbonate Actual POC Total CO2 Base Excess O2 Saturation ABG pCO2 ABG pO2 Dao Test O2 Delivery Device Liter Flow Blood Gas Notified Whom Blood Gas Notified Time Sodium Potassium Chloride Carbon Dioxide Anion Gap BUN Creatinine Estim Creat Clear Calc Est GFR (MDRD) Af Amer Est GFR (MDRD) Non-Af BUN/Creatinine Ratio Glucose Lactic Acid Calcium Magnesium 2.4 Total Bilirubin AST ALT Alkaline Phosphatase Troponin I Total Protein Albumin Globulin Albumin/Globulin Ratio Lipase TSH Urine Color Urine Clarity Urine pH Ur Specific [place] Urine Protein Urine Glucose (UA) Urine Ketones Urine Occult Blood Urine Nitrite Urine Bilirubin Urine Urobilinogen Ur Leukocyte Esterase Urine RBC Urine WBC Ur Squamous Epith Cells Urine Bacteria Urine Mucus Digoxin 3.54 H* Urine Opiates Screen POSITIVE H Urine Methadone Screen NEGATIVE Ur Barbiturates Screen NEGATIVE Ur Phencyclidine Scrn NEGATIVE Ur Amphetamines Screen NEGATIVE U Methamphetamin-MDMA POSITIVE H U Benzodiazepines Scrn NEGATIVE Urine Cocaine Screen NEGATIVE U Cannabinoids Screen NEGATIVE Ur Drug Screen Comment 12/26/17 12/26/17 06:04 06:04 WBC 5.3 RBC 3.85 L Hgb 10.5 L Hct 33.6 L MCV 87.3 MCH 27.3 MCHC 31.3 L RDW 18.1 H RDW Differential 56.7 H Plt Count 226 MPV 11.6 Immature Gran % (Auto) Neut % (Auto) Lymph % (Auto) Holmes % (Auto) Eos % (Auto) Baso % (Auto) Absolute Neuts (auto) Absolute Lymphs (auto) Total Counted PT INR APTT Specimen Type Sample Site pH Bicarbonate Actual POC Total CO2 Base Excess O2 Saturation ABG pCO2 ABG pO2 Dao Test O2 Delivery Device Liter Flow Blood Gas Notified Whom Blood Gas Notified Time Sodium 141 Potassium 4.1 Chloride 107 Carbon Dioxide 24.0 Anion Gap 10 BUN 29 H Creatinine 1.04 H Estim Creat Clear Calc 42.32 Est GFR (MDRD) Af Amer 69 Est GFR (MDRD) Non-Af 57 L BUN/Creatinine Ratio 27.9 H Glucose 261 H Lactic Acid Calcium 7.9 L Magnesium Total Bilirubin AST ALT Alkaline Phosphatase Troponin I Total Protein Albumin Globulin Albumin/Globulin Ratio Lipase TSH Urine Color Urine Clarity Urine pH Ur Specific [place] Urine Protein Urine Glucose (UA) Urine Ketones Urine Occult Blood Urine Nitrite Urine Bilirubin Urine Urobilinogen Ur Leukocyte Esterase Urine RBC Urine WBC Ur Squamous Epith Cells Urine Bacteria Urine Mucus Digoxin Urine Opiates Screen Urine Methadone Screen Ur Barbiturates Screen Ur Phencyclidine Scrn Ur Amphetamines Screen U Methamphetamin-MDMA U Benzodiazepines Scrn Urine Cocaine Screen U Cannabinoids Screen Ur Drug Screen Comment POC Glucose 12/26/17 12/25/17 05:45 22:59 POC Glucose 277 H 316 H Medical Necessity - Tobacco Use Smoking Status: Current some day smoker Tobacco Use: Cigarettes Assessment/Plan All Active Problems (Last Reviewed 12/14/17 @ 13:10 by Marylu Howell, THANG-C) Abdominal pain (Acute) Acute and chronic respiratory failure with hypoxia (Resolved) Acute bronchitis due to human metapneumovirus (Resolved) Atrial fibrillation with RVR (Resolved) COPD with acute exacerbation (Resolved) Gram-negative pneumonia (Resolved) Syncope (Resolved) Cardiomyopathy (Ruled-out) Patient is a 61-year-old female admitted 12/25/17 due to abdominal pain, poor appetite, lethargy. She has a past medical history of COPD, chronic atrial fibrillation, hypertension, type 2 diabetes mellitus, hyperlipidemia, GERD, anxiety, chronic hypoxic respiratory failure, obesity, ABDULLAHI. 1. Acute healthcare acquired pneumonia-CT of abdomen 12/23/2017 showed right lower lobe infiltrate infiltrate. Blood cultures drawn in ER, pending. Urine for strep and Legionella negative. Send sputum for culture. Albuterol and DuoNeb aerosols. IV Zosyn and IV vancomycin. 2. Acute kidney injury-secondary to #1 and dehydration. Improved with IV fluids. Trend BMP. 3. Acute infectious and metabolic encephalopathy-brain CT with chronic changes. Secondary to #1/#2. UA negative. Improving. Urine tox screen positive for methamphetamine and opiates. 4. Abdominal pain-CT of abdomen and pelvis obtained as outpatient 12/23/2017 which showed sludge or small gallstones in the gallbladder. Right upper quadrant abdominal ultrasound showed mild fatty liver infiltration without mass. No evidence of right upper quadrant abnormality. UA negative. 5. Bradycardia-suspect secondary to medication regimen including digoxin, Cardizem, propanolol regimen. Hold rate control regimen. Monitor telemetry. Digoxin level 3.54. Digoxin on hold. Rate improved. Currently 60-70 bpm. Patient follows with Dr. Mccormick. Will discuss with him medications adjustments prior to DC. 6. Chronic hypoxic respiratory failure due to chronic severe COPD-continue supplement oxygen to maintain O2 at or above 90%. Albuterol and DuoNeb aerosols. 7. Chronic atrial fibrillation-continue Xarelto. Hold Cardizem, propanolol, digoxin given bradycardia. 8. Type 2 diabetes mellitus-continue home insulin regimen. Accu-Cheks before meals at bedtime. 9. Hypertension-stable, home BP regimen on hold due to bradycardia/JAMIE. 10. Hyperlipidemia-continue statin. 11. History of mild cardiomyopathy- echo 07/11/17 with EF 75%. 12. GERD-continue home famotidine regimen. 13. Anxiety-continue home buspirone, bupropion regimen. 14. Obesity-encouraged diet and lifestyle modifications. 15. Tobacco dependence-encourage smoking cessation. 60. Obstructive sleep apnea-unclear if patient wears CPAP/BiPAP. Follows with pulmonary medicine. DVT prophylaxis-Xarelto Discharge planning: Return to SNF at discharge. This patient was seen by FRANKLIN Cardenas under the supervision of Dr. Caro. <Roldan Caro - Last Filed: 12/26/17 13:40> - Physical Exam Vital Signs Temp Pulse Resp BP Pulse Ox 97.8 F 78 18 118/68 95 12/26/17 11:05 12/26/17 11:05 12/26/17 11:05 12/26/17 11:05 12/26/17 11:05 Oxygen Flow Rate (L/min) 2 Oxygen Delivery Method Nasal Cannula Weight: 88.1 kg Body Mass Index (BMI) 36.6 Finger Stick Blood Glucose 364 Intake and Output for Last 24 Hours 12/24/17 12/25/17 12/26/17 23:59 23:59 23:59 Intake Total 2024.4 / 2024.4 Balance 2024.2024.4 Microbiology Past 72 Hours 12/25/17 19:25 Respiratory Panel (PCR) - Final Mucosa - Nasopharyngeal 12/25/17 09:46 Streptococcus pneumoniae Antigen (M - Final Urine, Clean Catch 12/25/17 09:46 Legionella Antigen - Final Urine, Clean Catch Laboratory Tests Past 24 Hrs 12/25/17 12/25/17 12/25/17 14:10 15:05 15:05 WBC 8.8 RBC 4.20 Hgb 11.5 L Hct 37.2 MCV 88.6 MCH 27.4 MCHC 30.9 L RDW 18.7 H RDW Differential 59.8 H Plt Count 286 MPV 11.2 Immature Gran % (Auto) 0.300 Neut % (Auto) 62.8 Lymph % (Auto) 26.9 Holmes % (Auto) 8.0 Eos % (Auto) 1.8 Baso % (Auto) 0.2 Absolute Neuts (auto) 5.5 Absolute Lymphs (auto) 2.35 Total Counted Not Reportable PT 22.9 H INR 2.0 APTT 34.7 Specimen Type ART Sample Site R Brachial pH 7.45 Bicarbonate Actual 27.3 H POC Total CO2 28 Base Excess 3 H O2 Saturation 96 ABG pCO2 39.7 ABG pO2 82 Dao Test NA O2 Delivery Device Nasal Can Liter Flow 2.0 Blood Gas Notified Whom ED Blood Gas Notified Time 1450 Sodium Potassium Chloride Carbon Dioxide Anion Gap BUN Creatinine Estim Creat Clear Calc Est GFR (MDRD) Af Amer Est GFR (MDRD) Non-Af BUN/Creatinine Ratio Glucose Lactic Acid Calcium Magnesium Total Bilirubin AST ALT Alkaline Phosphatase Troponin I Total Protein Albumin Globulin Albumin/Globulin Ratio Lipase TSH Urine Color Urine Clarity Urine pH Ur Specific [place] Urine Protein Urine Glucose (UA) Urine Ketones Urine Occult Blood Urine Nitrite Urine Bilirubin Urine Urobilinogen Ur Leukocyte Esterase Urine RBC Urine WBC Ur Squamous Epith Cells Urine Bacteria Urine Mucus Digoxin Urine Opiates Screen Urine Methadone Screen Ur Barbiturates Screen Ur Phencyclidine Scrn Ur Amphetamines Screen U Methamphetamin-MDMA U Benzodiazepines Scrn Urine Cocaine Screen U Cannabinoids Screen Ur Drug Screen Comment 12/25/17 12/25/17 12/25/17 15:05 15:05 16:23 WBC RBC Hgb Hct MCV MCH MCHC RDW RDW Differential Plt Count MPV Immature Gran % (Auto) Neut % (Auto) Lymph % (Auto) Holmes % (Auto) Eos % (Auto) Baso % (Auto) Absolute Neuts (auto) Absolute Lymphs (auto) Total Counted PT INR APTT Specimen Type Sample Site pH Bicarbonate Actual POC Total CO2 Base Excess O2 Saturation ABG pCO2 ABG pO2 Dao Test O2 Delivery Device Liter Flow Blood Gas Notified Whom Blood Gas Notified Time Sodium 136 Potassium 4.2 Chloride 102 Carbon Dioxide 28.0 Anion Gap 6 BUN 34 H Creatinine 2.07 H Estim Creat Clear Calc 21.26 Est GFR (MDRD) Af Amer 31 L Est GFR (MDRD) Non-Af 26 L BUN/Creatinine Ratio 16.4 Glucose 114 H Lactic Acid 0.8 Calcium 8.1 L Magnesium Total Bilirubin 0.60 AST 24 ALT 21 Alkaline Phosphatase 94 Troponin I < 0.015 Total Protein 6.5 Albumin 2.9 L Globulin 3.6 Albumin/Globulin Ratio 0.8 L Lipase 45 L TSH 1.41 Urine Color Yellow Urine Clarity Clear Urine pH 5.0 Ur Specific [place] 1.020 Urine Protein Negative Urine Glucose (UA) Normal Urine Ketones Negative Urine Occult Blood Negative Urine Nitrite Negative Urine Bilirubin Negative Urine Urobilinogen Normal Ur Leukocyte Esterase 25 H Urine RBC 0 SEEN Urine WBC 0 SEEN Ur Squamous Epith Cells 0-5 SEEN Urine Bacteria 3+ Urine Mucus 0 SEEN Digoxin Urine Opiates Screen Urine Methadone Screen Ur Barbiturates Screen Ur Phencyclidine Scrn Ur Amphetamines Screen U Methamphetamin-MDMA U Benzodiazepines Scrn Urine Cocaine Screen U Cannabinoids Screen Ur Drug Screen Comment 12/25/17 12/25/17 12/25/17 16:23 16:56 Unknown WBC RBC Hgb Hct MCV MCH MCHC RDW RDW Differential Plt Count MPV Immature Gran % (Auto) Neut % (Auto) Lymph % (Auto) Holmes % (Auto) Eos % (Auto) Baso % (Auto) Absolute Neuts (auto) Absolute Lymphs (auto) Total Counted PT INR APTT Specimen Type Sample Site pH Bicarbonate Actual POC Total CO2 Base Excess O2 Saturation ABG pCO2 ABG pO2 Dao Test O2 Delivery Device Liter Flow Blood Gas Notified Whom Blood Gas Notified Time Sodium Potassium Chloride Carbon Dioxide Anion Gap BUN Creatinine Estim Creat Clear Calc Est GFR (MDRD) Af Amer Est GFR (MDRD) Non-Af BUN/Creatinine Ratio Glucose Lactic Acid Calcium Magnesium 2.4 Total Bilirubin AST ALT Alkaline Phosphatase Troponin I Total Protein Albumin Globulin Albumin/Globulin Ratio Lipase TSH Urine Color Urine Clarity Urine pH Ur Specific [place] Urine Protein Urine Glucose (UA) Urine Ketones Urine Occult Blood Urine Nitrite Urine Bilirubin Urine Urobilinogen Ur Leukocyte Esterase Urine RBC Urine WBC Ur Squamous Epith Cells Urine Bacteria Urine Mucus Digoxin 3.54 H* Urine Opiates Screen POSITIVE H Urine Methadone Screen NEGATIVE Ur Barbiturates Screen NEGATIVE Ur Phencyclidine Scrn NEGATIVE Ur Amphetamines Screen NEGATIVE U Methamphetamin-MDMA POSITIVE H U Benzodiazepines Scrn NEGATIVE Urine Cocaine Screen NEGATIVE U Cannabinoids Screen NEGATIVE Ur Drug Screen Comment 12/26/17 12/26/17 06:04 06:04 WBC 5.3 RBC 3.85 L Hgb 10.5 L Hct 33.6 L MCV 87.3 MCH 27.3 MCHC 31.3 L RDW 18.1 H RDW Differential 56.7 H Plt Count 226 MPV 11.6 Immature Gran % (Auto) Neut % (Auto) Lymph % (Auto) Holmes % (Auto) Eos % (Auto) Baso % (Auto) Absolute Neuts (auto) Absolute Lymphs (auto) Total Counted PT INR APTT Specimen Type Sample Site pH Bicarbonate Actual POC Total CO2 Base Excess O2 Saturation ABG pCO2 ABG pO2 Dao Test O2 Delivery Device Liter Flow Blood Gas Notified Whom Blood Gas Notified Time Sodium 141 Potassium 4.1 Chloride 107 Carbon Dioxide 24.0 Anion Gap 10 BUN 29 H Creatinine 1.04 H Estim Creat Clear Calc 42.32 Est GFR (MDRD) Af Amer 69 Est GFR (MDRD) Non-Af 57 L BUN/Creatinine Ratio 27.9 H Glucose 261 H Lactic Acid Calcium 7.9 L Magnesium Total Bilirubin AST ALT Alkaline Phosphatase Troponin I Total Protein Albumin Globulin Albumin/Globulin Ratio Lipase TSH Urine Color Urine Clarity Urine pH Ur Specific [place] Urine Protein Urine Glucose (UA) Urine Ketones Urine Occult Blood Urine Nitrite Urine Bilirubin Urine Urobilinogen Ur Leukocyte Esterase Urine RBC Urine WBC Ur Squamous Epith Cells Urine Bacteria Urine Mucus Digoxin Urine Opiates Screen Urine Methadone Screen Ur Barbiturates Screen Ur Phencyclidine Scrn Ur Amphetamines Screen U Methamphetamin-MDMA U Benzodiazepines Scrn Urine Cocaine Screen U Cannabinoids Screen Ur Drug Screen Comment POC Glucose 12/26/17 12/26/17 12/25/17 12:20 05:45 22:59 POC Glucose 315 H 277 H 316 H Assessment/Plan This patient was seen in conjunction with FRANKLIN Cardenas . I have independently interviewed and examined the patient and reviewed pertinent historical, laboratory, and other data. Please refer to FRANKLIN Cardenas note for details of this patient's presentation, findings, and recommendations. I have reviewed FRANKLIN Cardenas note and concur with documented findings. In brief, patient is a 62-year-old lady admitted with progressive shortness of breath and assessment of healthcare acquired pneumonia made admitted to a monitored bed where patient is currently being managed. Physical Examination: GENERAL: Dyspneic at rest HEENT: Clear conjunctiva, moist oral mucosa NECK; supple, normal thyroid, no distended JVD. CHEST: Diminished to auscultation bilaterally, with wheezes HEART: Irregular S1 S2, no audible murmurs ABDOMEN: soft, non-tender, normoactive bowel sounds, RECTAL: deferred EXTREMITIES: No edema, no clubbing, no cyanosis. 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 Healthcare acquired pneumonia 2. Acute kidney injury 3. Acute metabolic encephalopathy 4. Chronic hypoxic respiratory failure secondary to COPD on baseline home O2 5. Chronic A. fib presented with slow ventricular response attributed to meds 6. Diabetes mellitus type 2 7. Dyslipidemia 8. GERD 9. Suspected silent aspiration 10. Depression with anxiety 11. Asymptomatic cholelithiasis 12. Obesity with BMI of 36.7 13. Essential hypertension 14. Obstructive sleep apnea Recommendations: 1. I have discussed the results of my overview and impressions with the patient 2. Options for management were reviewed Active Medications Acetaminophen (Tylenol) 650 mg PO Q4H PRN PRN PRN Reason: FEVER Albuterol Sulfate (Ventolin Aerosols) 2.5 mg INHALATION Q2H PRN PRN PRN Reason: SHORTNESS OF BREATH Albuterol/Ipratropium (Duoneb) 3 ml INHALATION Q4H.RT [facility] Last Admin: 12/26/17 11:04 Dose: 3 ml Atorvastatin Calcium (Lipitor) 40 mg PO QHS [facility] Last Admin: 12/25/17 22:38 Dose: Not Given Bupropion HCl (Wellbutrin Sr (150mg Tablets)) 150 mg PO BID [facility] Last Admin: 12/26/17 11:17 Dose: 150 mg Buspirone HCl (Buspar) 10 mg PO TID [facility] Last Admin: 12/26/17 05:14 Dose: Not Given Docusate Sodium (Colace) 100 mg PO QHS [facility] Last Admin: 12/25/17 22:38 Dose: Not Given Duloxetine HCl (Cymbalta) 60 mg PO DAILY [facility] Last Admin: 12/26/17 11:17 Dose: 60 mg Famotidine (Pepcid) 20 mg PO DAILY [facility] Last Admin: 12/26/17 11:17 Dose: 20 mg Gabapentin (Neurontin) 100 mg PO TIDCM [facility] Last Admin: 12/26/17 11:17 Dose: 100 mg Guaifenesin (Mucinex) 1,200 mg PO BID [facility] Last Admin: 12/26/17 11:17 Dose: 1,200 mg Hydralazine HCl (Apresoline Iv) 10 mg IV Q4H PRN PRN PRN Reason: SBP > 160 Piperacillin Sod/Tazobactam Sod (Zosyn) 3.375 gm in 50 mls @ 12.5 mls/hr IV Q8 [facility] Last Admin: 12/26/17 05:13 Dose: 12.5 mls/hr Vancomycin HCl 1,250 mg/ (Sodium Chloride) 275 mls @ 167 mls/hr IV Q24H [facility] Sodium Chloride () 1,000 mls @ 75 mls/hr IV .[id number] [facility] Insulin Glargine (Lantus (Bkc)) 20 units SC QHS [facility] Last Admin: 12/25/17 23:13 Dose: 20 units Insulin Human Lispro (Humalog Kwikpen (Bkc)) 0 unit SC Q6 [facility]; Protocol Last Admin: 12/26/17 12:24 Dose: 5 units Methylprednisolone (Solu-Medrol) 40 mg IV Q8 [facility] Last Admin: 12/26/17 05:13 Dose: 40 mg Ondansetron HCl (Zofran) 4 mg IV Q8H PRN PRN PRN Reason: NAUSEA Polyethylene Glycol (Miralax) 17 gm PO DAILY [facility] Last Admin: 12/26/17 11:17 Dose: Not Given Rivaroxaban (Xarelto) 15 mg PO DAILY@1700 [facility] Sodium Chloride () 5 - 30 ml IV UD PRN PRN Reason: SALINE FLUSH Last Admin: 12/25/17 23:13 Dose: 10 ml Clinical Impression(s) from Imaging Studies Chest X-Ray 12/25/17 15:50 IMPRESSION: No acute cardiopulmonary disease or interval change. Electronically Signed: Lazaro Freeman DO at 16:24 EST Tel [phone], Service support , Brain CT 12/25/17 17:07 IMPRESSION: Chronic involutional changes of the brain. Electronically Signed: Musa Patel MD at 17:54 EST , Service support , Abdomen Ultrasound 12/25/17 17:38 IMPRESSION: Question mild fatty infiltration of the liver without mass. No other sonographic evidence of right upper quadrant abnormality. Electronically Signed: Lazaro Freeman DO at 19:15 EST Tel [phone], Service support , Code Visit Inpatient E&M: 09199 Subs Hosp L3
--- NOTE | 2017-12-26 11:32 | PN_ITS ---
<Marie Hoover - Last Filed: 12/26/17 11:34> Subjective: Patient seen and examined. More alert on assessment. Complains of continued right-sided abdominal pain. No other complaints. - Physical Exam General: Alert, Oriented x3, Cooperative HEENT: Atraumatic, PERRLA, EOMI, Normocephalic Oral: Dry Mucosa Neck: Supple, No JVD, Negative Carotid Bruits Lungs: Diminished, Wheezes Cardiovascular: - - Atrial fibrillation, rate controlled Abdomen: Bowel Sounds Present, Soft, Non-Distended, Obese, Tender - Right-sided Extremities: No clubbing, No cyanosis, No edema, Capillary Refill Less than 3 Seconds Skin: No rashes, No breakdown Musculoskeletal: No Tenderness to Palpation of Joints or Extremities Neurological: Cranial nerves II-XII grossly intact, Neuro grossly intact Psych/Mental Status: Flat Affect Vital Signs Temp Pulse Resp BP Pulse Ox 97.8 F 78 18 118/68 95 12/26/17 11:05 12/26/17 11:05 12/26/17 11:05 12/26/17 11:05 12/26/17 11:05 Oxygen Flow Rate (L/min) 2 Oxygen Delivery Method Nasal Cannula Weight: 194 lb 3.636 oz Body Mass Index (BMI) 36.6 Finger Stick Blood Glucose 364 Intake and Output for Last 24 Hours 12/24/17 12/25/17 12/26/17 23:59 23:59 23:59 Intake Total 5.4 / 2024.4 Balance 5.4 / 2024.4 Microbiology Past 72 Hours 12/25/17 19:25 Respiratory Panel (PCR) - Final Mucosa - Nasopharyngeal 12/25/17 09:46 Streptococcus pneumoniae Antigen (M - Final Urine, Clean Catch 12/25/17 09:46 Legionella Antigen - Final Urine, Clean Catch Laboratory Tests Past 24 Hrs 12/25/17 12/25/17 12/25/17 14:10 15:05 15:05 WBC 8.8 RBC 4.20 Hgb 11.5 L Hct 37.2 MCV 88.6 MCH 27.4 MCHC 30.9 L RDW 18.7 H RDW Differential 59.8 H Plt Count 286 MPV 11.2 Immature Gran % (Auto) 0.300 Neut % (Auto) 62.8 Lymph % (Auto) 26.9 [place] % (Auto) 8.0 Eos % (Auto) 1.8 Baso % (Auto) 0.2 Absolute Neuts (auto) 5.5 Absolute Lymphs (auto) 2.35 Total Counted Not Reportable PT 22.9 H INR 2.0 APTT 34.7 Specimen Type ART Sample Site R Brachial pH 7.45 Bicarbonate Actual 27.3 H POC Total CO2 28 Base Excess 3 H O2 Saturation 96 ABG pCO2 39.7 ABG pO2 82 Dao Test NA O2 Delivery Device Nasal Can Liter Flow 2.0 Blood Gas Notified Whom ED MD Blood Gas Notified Time 1450 Sodium Potassium Chloride Carbon Dioxide Anion Gap BUN Creatinine Estim Creat Clear Calc Est GFR (MDRD) Af Amer Est GFR (MDRD) Non-Af BUN/Creatinine Ratio Glucose Lactic Acid Calcium Magnesium Total Bilirubin AST ALT Alkaline Phosphatase Troponin I Total Protein Albumin Globulin Albumin/Globulin Ratio Lipase TSH Urine Color Urine Clarity Urine pH Ur Specific [place] Urine Protein Urine Glucose (UA) Urine Ketones Urine Occult Blood Urine Nitrite Urine Bilirubin Urine Urobilinogen Ur Leukocyte Esterase Urine RBC Urine WBC Ur Squamous Epith Cells Urine Bacteria Urine Mucus Digoxin Urine Opiates Screen Urine Methadone Screen Ur Barbiturates Screen Ur Phencyclidine Scrn Ur Amphetamines Screen U Methamphetamin-MDMA U Benzodiazepines Scrn Urine Cocaine Screen U Cannabinoids Screen Ur Drug Screen Comment 12/25/17 12/25/17 12/25/17 15:05 15:05 16:23 WBC RBC Hgb Hct MCV MCH MCHC RDW RDW Differential Plt Count MPV Immature Gran % (Auto) Neut % (Auto) Lymph % (Auto) [place] % (Auto) Eos % (Auto) Baso % (Auto) Absolute Neuts (auto) Absolute Lymphs (auto) Total Counted PT INR APTT Specimen Type Sample Site pH Bicarbonate Actual POC Total CO2 Base Excess O2 Saturation ABG pCO2 ABG pO2 Dao Test O2 Delivery Device Liter Flow Blood Gas Notified Whom Blood Gas Notified Time Sodium 136 Potassium 4.2 Chloride 102 Carbon Dioxide 28.0 Anion Gap 6 BUN 34 H Creatinine 2.07 H Estim Creat Clear Calc 21.26 Est GFR (MDRD) Af Amer 31 L Est GFR (MDRD) Non-Af 26 L BUN/Creatinine Ratio 16.4 Glucose 114 H Lactic Acid 0.8 Calcium 8.1 L Magnesium Total Bilirubin 0.60 AST 24 ALT 21 Alkaline Phosphatase 94 Troponin I < 0.015 Total Protein 6.5 Albumin 2.9 L Globulin 3.6 Albumin/Globulin Ratio 0.8 L Lipase 45 L TSH 1.41 Urine Color Yellow Urine Clarity Clear Urine pH 5.0 Ur Specific [place] 1.020 Urine Protein Negative Urine Glucose (UA) Normal Urine Ketones Negative Urine Occult Blood Negative Urine Nitrite Negative Urine Bilirubin Negative Urine Urobilinogen Normal Ur Leukocyte Esterase 25 H Urine RBC 0 SEEN Urine WBC 0 SEEN Ur Squamous Epith Cells 0-5 SEEN Urine Bacteria 3+ Urine Mucus 0 SEEN Digoxin Urine Opiates Screen Urine Methadone Screen Ur Barbiturates Screen Ur Phencyclidine Scrn Ur Amphetamines Screen U Methamphetamin-MDMA U Benzodiazepines Scrn Urine Cocaine Screen U Cannabinoids Screen Ur Drug Screen Comment 12/25/17 12/25/17 12/25/17 16:23 16:56 Unknown WBC RBC Hgb Hct MCV MCH MCHC RDW RDW Differential Plt Count MPV Immature Gran % (Auto) Neut % (Auto) Lymph % (Auto) [place] % (Auto) Eos % (Auto) Baso % (Auto) Absolute Neuts (auto) Absolute Lymphs (auto) Total Counted PT INR APTT Specimen Type Sample Site pH Bicarbonate Actual POC Total CO2 Base Excess O2 Saturation ABG pCO2 ABG pO2 Dao Test O2 Delivery Device Liter Flow Blood Gas Notified Whom Blood Gas Notified Time Sodium Potassium Chloride Carbon Dioxide Anion Gap BUN Creatinine Estim Creat Clear Calc Est GFR (MDRD) Af Amer Est GFR (MDRD) Non-Af BUN/Creatinine Ratio Glucose Lactic Acid Calcium Magnesium 2.4 Total Bilirubin AST ALT Alkaline Phosphatase Troponin I Total Protein Albumin Globulin Albumin/Globulin Ratio Lipase TSH Urine Color Urine Clarity Urine pH Ur Specific [place] Urine Protein Urine Glucose (UA) Urine Ketones Urine Occult Blood Urine Nitrite Urine Bilirubin Urine Urobilinogen Ur Leukocyte Esterase Urine RBC Urine WBC Ur Squamous Epith Cells Urine Bacteria Urine Mucus Digoxin 3.54 H* Urine Opiates Screen POSITIVE H Urine Methadone Screen NEGATIVE Ur Barbiturates Screen NEGATIVE Ur Phencyclidine Scrn NEGATIVE Ur Amphetamines Screen NEGATIVE U Methamphetamin-MDMA POSITIVE H U Benzodiazepines Scrn NEGATIVE Urine Cocaine Screen NEGATIVE U Cannabinoids Screen NEGATIVE Ur Drug Screen Comment 12/26/17 12/26/17 06:04 06:04 WBC 5.3 RBC 3.85 L Hgb 10.5 L Hct 33.6 L MCV 87.3 MCH 27.3 MCHC 31.3 L RDW 18.1 H RDW Differential 56.7 H Plt Count 226 MPV 11.6 Immature Gran % (Auto) Neut % (Auto) Lymph % (Auto) [place] % (Auto) Eos % (Auto) Baso % (Auto) Absolute Neuts (auto) Absolute Lymphs (auto) Total Counted PT INR APTT Specimen Type Sample Site pH Bicarbonate Actual POC Total CO2 Base Excess O2 Saturation ABG pCO2 ABG pO2 Dao Test O2 Delivery Device Liter Flow Blood Gas Notified Whom Blood Gas Notified Time Sodium 141 Potassium 4.1 Chloride 107 Carbon Dioxide 24.0 Anion Gap 10 BUN 29 H Creatinine 1.04 H Estim Creat Clear Calc 42.32 Est GFR (MDRD) Af Amer 69 Est GFR (MDRD) Non-Af 57 L BUN/Creatinine Ratio 27.9 H Glucose 261 H Lactic Acid Calcium 7.9 L Magnesium Total Bilirubin AST ALT Alkaline Phosphatase Troponin I Total Protein Albumin Globulin Albumin/Globulin Ratio Lipase TSH Urine Color Urine Clarity Urine pH Ur Specific [place] Urine Protein Urine Glucose (UA) Urine Ketones Urine Occult Blood Urine Nitrite Urine Bilirubin Urine Urobilinogen Ur Leukocyte Esterase Urine RBC Urine WBC Ur Squamous Epith Cells Urine Bacteria Urine Mucus Digoxin Urine Opiates Screen Urine Methadone Screen Ur Barbiturates Screen Ur Phencyclidine Scrn Ur Amphetamines Screen U Methamphetamin-MDMA U Benzodiazepines Scrn Urine Cocaine Screen U Cannabinoids Screen Ur Drug Screen Comment POC Glucose 12/26/17 12/25/17 05:45 22:59 POC Glucose 277 H 316 H Medical Necessity - Tobacco Use Smoking Status: Current some day smoker Tobacco Use: Cigarettes Assessment/Plan All Active Problems (Last Reviewed 12/14/17 @ 13:10 by Marylu Howell, THANG-C) Abdominal pain (Acute) Acute and chronic respiratory failure with hypoxia (Resolved) Acute bronchitis due to human metapneumovirus (Resolved) Atrial fibrillation with RVR (Resolved) COPD with acute exacerbation (Resolved) Gram-negative pneumonia (Resolved) Syncope (Resolved) Cardiomyopathy (Ruled-out) Patient is a 61-year-old female admitted 12/25/17 due to abdominal pain, poor appetite, lethargy. She has a past medical history of COPD, chronic atrial fibrillation, hypertension, type 2 diabetes mellitus, hyperlipidemia, GERD, anxiety, chronic hypoxic respiratory failure, obesity, ABDULLAHI. 1. Acute healthcare acquired pneumonia-CT of abdomen 12/23/2017 showed right lower lobe infiltrate infiltrate. Blood cultures drawn in ER, pending. Urine for strep and Legionella negative. Send sputum for culture. Albuterol and DuoNeb aerosols. IV Zosyn and IV vancomycin. 2. Acute kidney injury-secondary to #1 and dehydration. Improved with IV fluids. Trend BMP. 3. Acute infectious and metabolic encephalopathy-brain CT with chronic changes. Secondary to #1/#2. UA negative. Improving. Urine tox screen positive for methamphetamine and opiates. 4. Abdominal pain-CT of abdomen and pelvis obtained as outpatient 12/23/2017 which showed sludge or small gallstones in the gallbladder. Right upper quadrant abdominal ultrasound showed mild fatty liver infiltration without mass. No evidence of right upper quadrant abnormality. UA negative. 5. Bradycardia-suspect secondary to medication regimen including digoxin, Cardizem, propanolol regimen. Hold rate control regimen. Monitor telemetry. Digoxin level 3.54. Digoxin on hold. Rate improved. Currently 60-70 bpm. Patient follows with Dr. Mccormick. Will discuss with him medications adjustments prior to DC. 6. Chronic hypoxic respiratory failure due to chronic severe COPD-continue supplement oxygen to maintain O2 at or above 90%. Albuterol and DuoNeb aerosols. 7. Chronic atrial fibrillation-continue Xarelto. Hold Cardizem, propanolol, digoxin given bradycardia. 8. Type 2 diabetes mellitus-continue home insulin regimen. Accu-Cheks before meals at bedtime. 9. Hypertension-stable, home BP regimen on hold due to bradycardia/JAMIE. 10. Hyperlipidemia-continue statin. 11. History of mild cardiomyopathy- echo 07/11/17 with EF 75%. 12. GERD-continue home famotidine regimen. 13. Anxiety-continue home buspirone, bupropion regimen. 14. Obesity-encouraged diet and lifestyle modifications. 15. Tobacco dependence-encourage smoking cessation. 60. Obstructive sleep apnea-unclear if patient wears CPAP/BiPAP. Follows with pulmonary medicine. DVT prophylaxis-Xarelto Discharge planning: Return to SNF at discharge. This patient was seen by FRANKLIN Cardenas under the supervision of Dr. Caro. <Roldan Caro - Last Filed: 12/26/17 13:40> - Physical Exam Vital Signs Temp Pulse Resp BP Pulse Ox 97.8 F 78 18 118/68 95 12/26/17 11:05 12/26/17 11:05 12/26/17 11:05 12/26/17 11:05 12/26/17 11:05 Oxygen Flow Rate (L/min) 2 Oxygen Delivery Method Nasal Cannula Weight: 88.1 kg Body Mass Index (BMI) 36.6 Finger Stick Blood Glucose 364 Intake and Output for Last 24 Hours 12/24/17 12/25/17 12/26/17 23:59 23:59 23:59 Intake Total 2024.4 / 2024.4 Balance 2024.2024.4 Microbiology Past 72 Hours 12/25/17 19:25 Respiratory Panel (PCR) - Final Mucosa - Nasopharyngeal 12/25/17 09:46 Streptococcus pneumoniae Antigen (M - Final Urine, Clean Catch 12/25/17 09:46 Legionella Antigen - Final Urine, Clean Catch Laboratory Tests Past 24 Hrs 12/25/17 12/25/17 12/25/17 14:10 15:05 15:05 WBC 8.8 RBC 4.20 Hgb 11.5 L Hct 37.2 MCV 88.6 MCH 27.4 MCHC 30.9 L RDW 18.7 H RDW Differential 59.8 H Plt Count 286 MPV 11.2 Immature Gran % (Auto) 0.300 Neut % (Auto) 62.8 Lymph % (Auto) 26.9 [place] % (Auto) 8.0 Eos % (Auto) 1.8 Baso % (Auto) 0.2 Absolute Neuts (auto) 5.5 Absolute Lymphs (auto) 2.35 Total Counted Not Reportable PT 22.9 H INR 2.0 APTT 34.7 Specimen Type ART Sample Site R Brachial pH 7.45 Bicarbonate Actual 27.3 H POC Total CO2 28 Base Excess 3 H O2 Saturation 96 ABG pCO2 39.7 ABG pO2 82 Dao Test NA O2 Delivery Device Nasal Can Liter Flow 2.0 Blood Gas Notified Whom ED Blood Gas Notified Time 1450 Sodium Potassium Chloride Carbon Dioxide Anion Gap BUN Creatinine Estim Creat Clear Calc Est GFR (MDRD) Af Amer Est GFR (MDRD) Non-Af BUN/Creatinine Ratio Glucose Lactic Acid Calcium Magnesium Total Bilirubin AST ALT Alkaline Phosphatase Troponin I Total Protein Albumin Globulin Albumin/Globulin Ratio Lipase TSH Urine Color Urine Clarity Urine pH Ur Specific [place] Urine Protein Urine Glucose (UA) Urine Ketones Urine Occult Blood Urine Nitrite Urine Bilirubin Urine Urobilinogen Ur Leukocyte Esterase Urine RBC Urine WBC Ur Squamous Epith Cells Urine Bacteria Urine Mucus Digoxin Urine Opiates Screen Urine Methadone Screen Ur Barbiturates Screen Ur Phencyclidine Scrn Ur Amphetamines Screen U Methamphetamin-MDMA U Benzodiazepines Scrn Urine Cocaine Screen U Cannabinoids Screen Ur Drug Screen Comment 12/25/17 12/25/17 12/25/17 15:05 15:05 16:23 WBC RBC Hgb Hct MCV MCH MCHC RDW RDW Differential Plt Count MPV Immature Gran % (Auto) Neut % (Auto) Lymph % (Auto) [place] % (Auto) Eos % (Auto) Baso % (Auto) Absolute Neuts (auto) Absolute Lymphs (auto) Total Counted PT INR APTT Specimen Type Sample Site pH Bicarbonate Actual POC Total CO2 Base Excess O2 Saturation ABG pCO2 ABG pO2 Dao Test O2 Delivery Device Liter Flow Blood Gas Notified Whom Blood Gas Notified Time Sodium 136 Potassium 4.2 Chloride 102 Carbon Dioxide 28.0 Anion Gap 6 BUN 34 H Creatinine 2.07 H Estim Creat Clear Calc 21.26 Est GFR (MDRD) Af Amer 31 L Est GFR (MDRD) Non-Af 26 L BUN/Creatinine Ratio 16.4 Glucose 114 H Lactic Acid 0.8 Calcium 8.1 L Magnesium Total Bilirubin 0.60 AST 24 ALT 21 Alkaline Phosphatase 94 Troponin I < 0.015 Total Protein 6.5 Albumin 2.9 L Globulin 3.6 Albumin/Globulin Ratio 0.8 L Lipase 45 L TSH 1.41 Urine Color Yellow Urine Clarity Clear Urine pH 5.0 Ur Specific [place] 1.020 Urine Protein Negative Urine Glucose (UA) Normal Urine Ketones Negative Urine Occult Blood Negative Urine Nitrite Negative Urine Bilirubin Negative Urine Urobilinogen Normal Ur Leukocyte Esterase 25 H Urine RBC 0 SEEN Urine WBC 0 SEEN Ur Squamous Epith Cells 0-5 SEEN Urine Bacteria 3+ Urine Mucus 0 SEEN Digoxin Urine Opiates Screen Urine Methadone Screen Ur Barbiturates Screen Ur Phencyclidine Scrn Ur Amphetamines Screen U Methamphetamin-MDMA U Benzodiazepines Scrn Urine Cocaine Screen U Cannabinoids Screen Ur Drug Screen Comment 12/25/17 12/25/17 12/25/17 16:23 16:56 Unknown WBC RBC Hgb Hct MCV MCH MCHC RDW RDW Differential Plt Count MPV Immature Gran % (Auto) Neut % (Auto) Lymph % (Auto) [place] % (Auto) Eos % (Auto) Baso % (Auto) Absolute Neuts (auto) Absolute Lymphs (auto) Total Counted PT INR APTT Specimen Type Sample Site pH Bicarbonate Actual POC Total CO2 Base Excess O2 Saturation ABG pCO2 ABG pO2 Dao Test O2 Delivery Device Liter Flow Blood Gas Notified Whom Blood Gas Notified Time Sodium Potassium Chloride Carbon Dioxide Anion Gap BUN Creatinine Estim Creat Clear Calc Est GFR (MDRD) Af Amer Est GFR (MDRD) Non-Af BUN/Creatinine Ratio Glucose Lactic Acid Calcium Magnesium 2.4 Total Bilirubin AST ALT Alkaline Phosphatase Troponin I Total Protein Albumin Globulin Albumin/Globulin Ratio Lipase TSH Urine Color Urine Clarity Urine pH Ur Specific [place] Urine Protein Urine Glucose (UA) Urine Ketones Urine Occult Blood Urine Nitrite Urine Bilirubin Urine Urobilinogen Ur Leukocyte Esterase Urine RBC Urine WBC Ur Squamous Epith Cells Urine Bacteria Urine Mucus Digoxin 3.54 H* Urine Opiates Screen POSITIVE H Urine Methadone Screen NEGATIVE Ur Barbiturates Screen NEGATIVE Ur Phencyclidine Scrn NEGATIVE Ur Amphetamines Screen NEGATIVE U Methamphetamin-MDMA POSITIVE H U Benzodiazepines Scrn NEGATIVE Urine Cocaine Screen NEGATIVE U Cannabinoids Screen NEGATIVE Ur Drug Screen Comment 12/26/17 12/26/17 06:04 06:04 WBC 5.3 RBC 3.85 L Hgb 10.5 L Hct 33.6 L MCV 87.3 MCH 27.3 MCHC 31.3 L RDW 18.1 H RDW Differential 56.7 H Plt Count 226 MPV 11.6 Immature Gran % (Auto) Neut % (Auto) Lymph % (Auto) [place] % (Auto) Eos % (Auto) Baso % (Auto) Absolute Neuts (auto) Absolute Lymphs (auto) Total Counted PT INR APTT Specimen Type Sample Site pH Bicarbonate Actual POC Total CO2 Base Excess O2 Saturation ABG pCO2 ABG pO2 Dao Test O2 Delivery Device Liter Flow Blood Gas Notified Whom Blood Gas Notified Time Sodium 141 Potassium 4.1 Chloride 107 Carbon Dioxide 24.0 Anion Gap 10 BUN 29 H Creatinine 1.04 H Estim Creat Clear Calc 42.32 Est GFR (MDRD) Af Amer 69 Est GFR (MDRD) Non-Af 57 L BUN/Creatinine Ratio 27.9 H Glucose 261 H Lactic Acid Calcium 7.9 L Magnesium Total Bilirubin AST ALT Alkaline Phosphatase Troponin I Total Protein Albumin Globulin Albumin/Globulin Ratio Lipase TSH Urine Color Urine Clarity Urine pH Ur Specific [place] Urine Protein Urine Glucose (UA) Urine Ketones Urine Occult Blood Urine Nitrite Urine Bilirubin Urine Urobilinogen Ur Leukocyte Esterase Urine RBC Urine WBC Ur Squamous Epith Cells Urine Bacteria Urine Mucus Digoxin Urine Opiates Screen Urine Methadone Screen Ur Barbiturates Screen Ur Phencyclidine Scrn Ur Amphetamines Screen U Methamphetamin-MDMA U Benzodiazepines Scrn Urine Cocaine Screen U Cannabinoids Screen Ur Drug Screen Comment POC Glucose 12/26/17 12/26/17 12/25/17 12:20 05:45 22:59 POC Glucose 315 H 277 H 316 H Assessment/Plan This patient was seen in conjunction with FRANKLIN Cardenas . I have independently interviewed and examined the patient and reviewed pertinent historical, laboratory, and other data. Please refer to FRANKLIN Cardenas note for details of this patient's presentation, findings, and recommendations. I have reviewed FRANKLIN Cardenas note and concur with documented findings. In brief, patient is a 62-year-old lady admitted with progressive shortness of breath and assessment of healthcare acquired pneumonia made admitted to a monitored bed where patient is currently being managed. Physical Examination: GENERAL: Dyspneic at rest HEENT: Clear conjunctiva, moist oral mucosa NECK; supple, normal thyroid, no distended JVD. CHEST: Diminished to auscultation bilaterally, with wheezes HEART: Irregular S1 S2, no audible murmurs ABDOMEN: soft, non-tender, normoactive bowel sounds, RECTAL: deferred EXTREMITIES: No edema, no clubbing, no cyanosis. [employer]IVERY [employer]IVER: Awake, alert and oriented to time, place and person, SKIN: No lesions no erythema, Assessment: 1. Healthcare acquired pneumonia 2. Acute kidney injury 3. Acute metabolic encephalopathy 4. Chronic hypoxic respiratory failure secondary to COPD on baseline home O2 5. Chronic A. fib presented with slow ventricular response attributed to meds 6. Diabetes mellitus type 2 7. Dyslipidemia 8. GERD 9. Suspected silent aspiration 10. Depression with anxiety 11. Asymptomatic cholelithiasis 12. Obesity with BMI of 36.7 13. Essential hypertension 14. Obstructive sleep apnea Recommendations: 1. I have discussed the results of my overview and impressions with the patient 2. Options for management were reviewed Active Medications Acetaminophen (Tylenol) 650 mg PO Q4H PRN PRN PRN Reason: FEVER Albuterol Sulfate (Ventolin Aerosols) 2.5 mg INHALATION Q2H PRN PRN PRN Reason: SHORTNESS OF BREATH Albuterol/Ipratropium (Duoneb) 3 ml INHALATION Q4H.RT [facility] Last Admin: 12/26/17 11:04 Dose: 3 ml Atorvastatin Calcium (Lipitor) 40 mg PO QHS [facility] Last Admin: 12/25/17 22:38 Dose: Not Given Bupropion HCl (Wellbutrin Sr (150mg Tablets)) 150 mg PO BID [facility] Last Admin: 12/26/17 11:17 Dose: 150 mg Buspirone HCl (Buspar) 10 mg PO TID [facility] Last Admin: 12/26/17 05:14 Dose: Not Given Docusate Sodium (Colace) 100 mg PO QHS [facility] Last Admin: 12/25/17 22:38 Dose: Not Given Duloxetine HCl (Cymbalta) 60 mg PO DAILY [facility] Last Admin: 12/26/17 11:17 Dose: 60 mg Famotidine (Pepcid) 20 mg PO DAILY [facility] Last Admin: 12/26/17 11:17 Dose: 20 mg Gabapentin (Neurontin) 100 mg PO TIDCM [facility] Last Admin: 12/26/17 11:17 Dose: 100 mg Guaifenesin (Mucinex) 1,200 mg PO BID [facility] Last Admin: 12/26/17 11:17 Dose: 1,200 mg Hydralazine HCl (Apresoline Iv) 10 mg IV Q4H PRN PRN PRN Reason: SBP > 160 Piperacillin Sod/Tazobactam Sod (Zosyn) 3.375 gm in 50 mls @ 12.5 mls/hr IV Q8 [facility] Last Admin: 12/26/17 05:13 Dose: 12.5 mls/hr Vancomycin HCl 1,250 mg/ (Sodium Chloride) 275 mls @ 167 mls/hr IV Q24H [facility] Sodium Chloride () 1,000 mls @ 75 mls/hr IV .[id number] [facility] Insulin Glargine (Lantus (Bkc)) 20 units SC QHS [facility] Last Admin: 12/25/17 23:13 Dose: 20 units Insulin Human Lispro (Humalog Kwikpen (Bkc)) 0 unit SC Q6 [facility]; Protocol Last Admin: 12/26/17 12:24 Dose: 5 units Methylprednisolone (Solu-Medrol) 40 mg IV Q8 [facility] Last Admin: 12/26/17 05:13 Dose: 40 mg Ondansetron HCl (Zofran) 4 mg IV Q8H PRN PRN PRN Reason: NAUSEA Polyethylene Glycol (Miralax) 17 gm PO DAILY [facility] Last Admin: 12/26/17 11:17 Dose: Not Given Rivaroxaban (Xarelto) 15 mg PO DAILY@1700 [facility] Sodium Chloride () 5 - 30 ml IV UD PRN PRN Reason: SALINE FLUSH Last Admin: 12/25/17 23:13 Dose: 10 ml Clinical Impression(s) from Imaging Studies Chest X-Ray 12/25/17 15:50 IMPRESSION: No acute cardiopulmonary disease or interval change. Electronically Signed: Lazaro Freeman DO at 16:24 EST Tel [phone], Service support , Brain CT 12/25/17 17:07 IMPRESSION: Chronic involutional changes of the brain. Electronically Signed: Musa Patel MD at 17:54 EST , Service support , Abdomen Ultrasound 12/25/17 17:38 IMPRESSION: Question mild fatty infiltration of the liver without mass. No other sonographic evidence of right upper quadrant abnormality. Electronically Signed: Lazaro Freeman DO at 19:15 EST Tel [phone], Service support , Code Visit Inpatient E&M: 02090 Subs Hosp L3
[2017-12-26 12:25] LABS: Bedside Glucose 315 mg/dL (70-110)
[2017-12-26] MEDS: busPIRone 5 MG Tablet 10 MG PO ×2 (14:38→21:24)
[2017-12-26] MEDS: 0.9% NaCl Peripheral Flush Adult/Peds IV ×2 (14:39→21:22)
[2017-12-26 16:55] LABS: Bedside Glucose 308 mg/dL (70-110)
[2017-12-26] MEDS: Acetaminophen 325 MG Tablet 650 MG PO (16:59)
[2017-12-26] MEDS: Rivaroxaban 15 MG Tablet PO (16:59)
[2017-12-26] MEDS: Docusate Sodium 100 MG Capsule PO (21:24)
[2017-12-26] MEDS: Atorvastatin Calcium 40 MG Tablet PO (21:24)
[2017-12-26] MEDS: HYDROcodone Bitartrate/Apap 5/325 Tablet PO (22:03)
[2017-12-26 23:16] LABS: Bedside Glucose 308 mg/dL (70-110)
[2017-12-27] VITALS (14 sets, daily range): BP systolic 138–167; BP diastolic 72–90; PULSE 67–88; RESP 14–18; TEMP 36.5–36.8; O2SAT 94–97
[2017-12-27] MEDS: 0.9% Normal Saline 1,000 ML 75 ML IV ×2 (01:06→13:19)
[2017-12-27] MEDS: Ipratropium/Albuterol Sulfate 3 ML AMPUL.NEB INHALATION ×5 (03:15→23:27)
[2017-12-27] MEDS: busPIRone 5 MG Tablet 10 MG PO ×3 (05:41→22:48)
[2017-12-27] MEDS: 0.9% NaCl Peripheral Flush Adult/Peds IV ×3 (05:42→23:17)
[2017-12-27] MEDS: Piperacil/Tazobactam 3.375 GM/50 ML ML IV ×3 (05:46→22:44)
[2017-12-27 06:39] LABS: Hematocrit 31.8 % (37-47); Mean Corp Hgb Conc 31.4 g/gl (32-36); Mean Corpuscular Hgb 27.2 pg (27.0-32.0); Mean Corpuscular Volume 86.4 fL (81-99); Mean Platelet Vol. 11.8 fl (6.2-12.0); Platelet Count 218 K/mm3 (150-450); RBC Distribution Width CV 18.3 % (11.6-14.6); RBC Distribution Width SD 56.9 fl (35.1-43.9); Red Blood Count 3.68 M/mm3 (4.2-5.4); White Blood Count 7.8 K/mm3 (4.4-11.0)
[2017-12-27 06:51] LABS: Scan Indicated on CBC? Y/N NO
[2017-12-27 06:55] LABS: Anion Gap 11 (5-15); BUN 23 mg/dL (7-18); BUN/Creat Ratio 26.4 RATIO (10-20); Calcium,Total 8.3 mg/dL (8.5-10.1); Chloride 107 mmol/L (98-107); Creatinine, Serum 0.87 mg/dL (0.55-1.02); EST Glomerular Filtration Rate 70 mL/min (>60); Est Glom Filt Rate - Afr Amer 85 mL/min (>60); Estimated Creatinine Clearance 50.59 ml/min; Glucose 265 mg/dL (74-106); Potassium 3.7 mmol/L (3.5-5.1); Sodium Level 141 mmol/L (136-145)
[2017-12-27 07:11] LABS: Bedside Glucose 279 mg/dL (70-110)
[2017-12-27] MEDS: Insulin Lispro 100 UNIT/ML INSULN.PEN SC ×4 (08:34→22:47)
[2017-12-27] MEDS: Gabapentin 100 MG Capsule PO ×3 (08:34→16:24)
[2017-12-27] MEDS: DULoxetine Hcl 60 MG Capsule PO (08:34)
[2017-12-27] MEDS: guaiFENesin 1,200 MG Tablet 1200 MG PO ×2 (08:34→22:51)
[2017-12-27] MEDS: buPROPion (SR) 150 MG Tablet.SA PO ×2 (08:35→22:50)
[2017-12-27] MEDS: Famotidine 20 MG Tablet PO (08:35)
[2017-12-27] MEDS: HYDROcodone Bitartrate/Apap 5/325 Tablet PO ×3 (08:39→22:56)
[2017-12-27 11:46] LABS: Bedside Glucose 322 mg/dL (70-110)
--- NOTE | 2017-12-27 13:07 | PN_ITS ---
<Marie Hoover - Last Filed: 12/27/17 13:08> Subjective: Patient seen and examined. Complains of tremors following breathing treatments. Denies further abdominal pain. Mental status improved. Alert and oriented on assessment. - Physical Exam General: Alert, Oriented x3, Cooperative HEENT: Atraumatic, PERRLA, EOMI, Normocephalic Neck: Supple, No JVD, Negative Carotid Bruits Lungs: Diminished, Wheezes Cardiovascular: - - Atrial fibrillation, rate controlled Abdomen: Bowel Sounds Present, Soft, Non Tender, Non-Distended Extremities: No clubbing, No cyanosis, No edema, Capillary Refill Less than 3 Seconds Skin: No rashes, No breakdown Musculoskeletal: No Tenderness to Palpation of Joints or Extremities Neurological: Cranial nerves II-XII grossly intact, Neuro grossly intact Psych/Mental Status: Normal Affect, Appropriate Vital Signs Temp Pulse Resp BP Pulse Ox 98.0 F 67 18 167/72 H 96 12/27/17 09:00 12/27/17 11:00 12/27/17 10:50 12/27/17 09:00 12/27/17 09:00 Oxygen Flow Rate (L/min) 2 Oxygen Delivery Method Nasal Cannula Weight: 194 lb 3.636 oz Body Mass Index (BMI) 36.6 Finger Stick Blood Glucose 364 Intake and Output for Last 24 Hours 12/25/17 12/26/17 12/27/17 23:59 23:59 23:59 Intake Total 3918.4 / 3918.4 2267 / 2267 Output Total 500 / 500 Balance 3918.4 / 3918.4 1767 / 1767 Microbiology Past 72 Hours 12/25/17 16:23 Urine Culture - Final Urine, Catheterized Lactobacillus sp. 12/25/17 15:05 Blood Culture - Preliminary Blood Culture (Wb) - Anticubital Left No growth in 48 hours. 12/25/17 15:15 Blood Culture - Preliminary Blood Culture (Wb) - No Site/Description Given No growth in 48 hours. 12/25/17 19:25 Respiratory Panel (PCR) - Final Mucosa - Nasopharyngeal 12/25/17 09:46 Streptococcus pneumoniae Antigen (M - Final Urine, Clean Catch 12/25/17 09:46 Legionella Antigen - Final Urine, Clean Catch Laboratory Tests Past 24 Hrs 12/27/17 12/27/17 05:25 05:25 WBC 7.8 RBC 3.68 L Hgb 10.0 L Hct 31.8 L MCV 86.4 MCH 27.2 MCHC 31.4 L RDW 18.3 H RDW Differential 56.9 H Plt Count 218 MPV 11.8 Sodium 141 Potassium 3.7 Chloride 107 Carbon Dioxide 23.0 Anion Gap 11 BUN 23 H Creatinine 0.87 Estim Creat Clear Calc 50.59 Est GFR (MDRD) Af Amer 85 Est GFR (MDRD) Non-Af 70 BUN/Creatinine Ratio 26.4 H Glucose 265 H Calcium 8.3 L POC Glucose 12/27/17 12/27/17 12/26/17 11:26 07:06 21:18 POC Glucose 322 H 279 H 308 H 12/26/17 16:45 POC Glucose 308 H Medical Necessity - Tobacco Use Smoking Status: Current some day smoker Tobacco Use: Cigarettes Assessment/Plan All Active Problems (Last Reviewed 12/14/17 @ 13:10 by Marylu Howell, THANG-C) Abdominal pain (Acute) Acute and chronic respiratory failure with hypoxia (Resolved) Acute bronchitis due to human metapneumovirus (Resolved) Atrial fibrillation with RVR (Resolved) COPD with acute exacerbation (Resolved) Gram-negative pneumonia (Resolved) Syncope (Resolved) Cardiomyopathy (Ruled-out) Patient is a 61-year-old female admitted 12/25/17 due to abdominal pain, poor appetite, lethargy. She has a past medical history of COPD, chronic atrial fibrillation, hypertension, type 2 diabetes mellitus, hyperlipidemia, GERD, anxiety, chronic hypoxic respiratory failure, obesity, ABDULLAHI. 1. Acute healthcare acquired pneumonia-CT of abdomen 12/23/2017 showed right lower lobe infiltrate infiltrate. Blood cultures show no growth in 48 hours. Urine for strep and Legionella negative. Send sputum for culture. Albuterol and DuoNeb aerosols. IV Zosyn and IV vancomycin. 2. Acute kidney injury-secondary to #1 and dehydration. Resolved with IV fluids. Trend BMP. 3. Acute toxic and metabolic encephalopathy-brain CT with chronic changes. Secondary to #1/#2/#4. Resolved. Urine tox screen positive for methamphetamine and opiates. Patient noted to have digoxin toxicity. 4. Acute lactobacillus cystitis/Abdominal pain-CT of abdomen and pelvis obtained as outpatient 12/23/2017 which showed sludge or small gallstones in the gallbladder. Right upper quadrant abdominal ultrasound showed mild fatty liver infiltration without mass. No evidence of right upper quadrant abnormality. UA negative. Urine culture shows lactobacillus species greater than 100,000 colony count. On Zosyn as noted above. Follow cultures. 5. Bradycardia/digoxin toxicity-secondary to medication regimen including digoxin, Cardizem, propanolol regimen. Hold rate control regimen. Monitor telemetry. Digoxin level 3.54. Digoxin on hold. Rate improved. Currently 60-70 bpm. Patient follows with Dr. Mccormick. Will discuss with him medications adjustments prior to DC. 6. Chronic hypoxic respiratory failure due to chronic severe COPD-continue supplement oxygen to maintain O2 at or above 90%. Albuterol and DuoNeb aerosols. 7. Chronic atrial fibrillation-continue Xarelto. Hold Cardizem, propanolol, digoxin given bradycardia. 8. Type 2 diabetes mellitus-continue home insulin regimen. Accu-Cheks before meals at bedtime. 9. Hypertension-stable, home BP regimen on hold due to bradycardia/JAMIE. 10. Hyperlipidemia-continue statin. 11. History of mild cardiomyopathy- echo 07/11/17 with EF 75%. 12. GERD-continue home famotidine regimen. 13. Anxiety-continue home buspirone, bupropion regimen. 14. Obesity-encouraged diet and lifestyle modifications. 15. Tobacco dependence-encourage smoking cessation. 60. Obstructive sleep apnea-unclear if patient wears CPAP/BiPAP. Follows with pulmonary medicine. DVT prophylaxis-Xarelto Discharge planning: Return to SNF at discharge. This patient was seen by FRANKLIN Cardenas under the supervision of Dr. Caro. <Roldan Caro - Last Filed: 12/27/17 14:19> - Physical Exam Vital Signs Temp Pulse Resp BP Pulse Ox 98.0 F 67 18 167/72 H 96 12/27/17 09:00 12/27/17 11:00 12/27/17 10:50 12/27/17 09:00 12/27/17 09:00 Oxygen Flow Rate (L/min) 2 Oxygen Delivery Method Nasal Cannula Weight: 88.1 kg Body Mass Index (BMI) 36.6 Finger Stick Blood Glucose 364 Intake and Output for Last 24 Hours 12/25/17 12/26/17 12/27/17 23:59 23:59 23:59 Intake Total 3918.4 / 3918.4 2267 / 2267 Output Total 500 / 500 Balance 3918.4 / 3918.4 1767 / 1767 Microbiology Past 72 Hours 12/25/17 16:23 Urine Culture - Final Urine, Catheterized Lactobacillus sp. 12/25/17 15:05 Blood Culture - Preliminary Blood Culture (Wb) - Anticubital Left No growth in 48 hours. 12/25/17 15:15 Blood Culture - Preliminary Blood Culture (Wb) - No Site/Description Given No growth in 48 hours. 12/25/17 19:25 Respiratory Panel (PCR) - Final Mucosa - Nasopharyngeal 12/25/17 09:46 Streptococcus pneumoniae Antigen (M - Final Urine, Clean Catch 12/25/17 09:46 Legionella Antigen - Final Urine, Clean Catch Laboratory Tests Past 24 Hrs 12/27/17 12/27/17 05:25 05:25 WBC 7.8 RBC 3.68 L Hgb 10.0 L Hct 31.8 L MCV 86.4 MCH 27.2 MCHC 31.4 L RDW 18.3 H RDW Differential 56.9 H Plt Count 218 MPV 11.8 Sodium 141 Potassium 3.7 Chloride 107 Carbon Dioxide 23.0 Anion Gap 11 BUN 23 H Creatinine 0.87 Estim Creat Clear Calc 50.59 Est GFR (MDRD) Af Amer 85 Est GFR (MDRD) Non-Af 70 BUN/Creatinine Ratio 26.4 H Glucose 265 H Calcium 8.3 L POC Glucose 12/27/17 12/27/17 12/26/17 11:26 07:06 21:18 POC Glucose 322 H 279 H 308 H 12/26/17 16:45 POC Glucose 308 H Assessment/Plan This patient was seen in conjunction with FRANKLIN Cardenas . I have independently interviewed and examined the patient and reviewed pertinent histo rical, laboratory, and other data. Please refer to FRANKLIN Cardenas note for details of this patient's presentation, findings, and recommendations. I have reviewed FRANKLIN Cardenas note and concur with documented findings. In brief, patient is a 62-year-old lady admitted with progressive shortness of breath and assessment of healthcare acquired pneumonia made admitted to a [facility] where patient is currently being managed. 12/27/2017: Patient breathing status improving. Adjusted her insulin dose as a result of hypoglycemia. Switched IV Solu-Medrol to p.o. prednisone. Physical Examination: GENERAL: Dyspneic at rest HEENT: Clear conjunctiva, moist oral mucosa NECK; supple, normal thyroid, no distended JVD. CHEST: Diminished to auscultation bilaterally, with wheezes HEART: Irregular S1 S2, no audible murmurs ABDOMEN: soft, non-tender, normoactive bowel sounds, RECTAL: deferred EXTREMITIES: No edema, no clubbing, no cyanosis. PHYSICAL THERAPY COORDINATOR: Awake, alert and oriented to time, place and person, SKIN: No lesions no erythema, Assessment: 1. Healthcare acquired pneumonia 2. Acute kidney injury 3. Acute metabolic encephalopathy 4. Chronic hypoxic respiratory failure secondary to COPD on baseline home O2 5. Chronic A. fib presented with slow ventricular response attributed to meds 6. Diabetes mellitus type 2 with hyperglycemia 7. Dyslipidemia 8. GERD 9. Suspected silent aspiration 10. Depression with anxiety 11. Asymptomatic cholelithiasis 12. Obesity with BMI of 36.7 13. Essential hypertension 14. Obstructive sleep apnea Recommendations: 1. I have discussed the results of my overview and impressions with the patient 2. Options for management were reviewed Code Visit Inpatient E&M: 78238 Subs Hosp L2
[2017-12-27] MEDS: predniSONE 20 MG Tablet PO (16:24)
[2017-12-27] MEDS: Rivaroxaban 15 MG Tablet PO (16:24)
[2017-12-27 16:35] LABS: Bedside Glucose 412 mg/dL (70-110)
[2017-12-27 19:44] LABS: Vancomycin, Trough Level 9.1 ug/mL (5.0-15.0)
[2017-12-27] MEDS: Docusate Sodium 100 MG Capsule PO (22:48)
[2017-12-27] MEDS: Atorvastatin Calcium 40 MG Tablet PO (22:50)
[2017-12-27] MEDS: hydrALAZINE 20 MG/ML Vial 10 MG IV (23:08)
[2017-12-27 23:20] LABS: Bedside Glucose 370 mg/dL (70-110)
[2017-12-28] VITALS (8 sets, daily range): BP systolic 134–165; BP diastolic 72–85; PULSE 74–112; RESP 16–21; TEMP 36.6–36.9; O2SAT 93–95
[2017-12-28] MEDS: 0.9% Normal Saline 1,000 ML 75 ML IV (03:19)
--- NOTE | 2017-12-28 04:04 | PCM.RX.CS ---
Consult Pharmacy has been consulted to manage selected antiobiotic: Vancomycin Type of Consult: Follow-up Suspected Infection: Pneumonia Labs: Sodium 141 mmol/L (136-145) 12/27/17 05:25 Potassium 3.7 mmol/L (3.5-5.1) 12/27/17 05:25 Chloride 107 mmol/L (98-107) 12/27/17 05:25 Carbon Dioxide 23.0 mmol/L (21.0-32.0) 12/27/17 05:25 Anion Gap 11 (5-15) 12/27/17 05:25 BUN 23 mg/dL (7-18) H 12/27/17 05:25 Creatinine 0.87 mg/dL (0.55-1.02) 12/27/17 05:25 Est GFR (MDRD) Af Amer 85 mL/min (>60) 12/27/17 05:25 Est GFR (MDRD) Non-Af 70 mL/min (>60) 12/27/17 05:25 BUN/Creatinine Ratio 26.4 RATIO (10-20) H 12/27/17 05:25 Glucose 265 mg/dL (74-106) H 12/27/17 05:25 Vancomycin Trough 9.1 ug/mL (5.0-15.0) 12/27/17 17:33 Microbiology: Microbiology 12/25/17 16:23 Urine, Catheterized Urine Culture - Final Lactobacillus sp. 12/25/17 15:05 Blood Culture (Wb) - Anticubital Left Blood Culture - Preliminary No growth in 48 hours. 12/25/17 15:15 Blood Culture (Wb) - No Site/Description Given Blood Culture - Preliminary No growth in 48 hours. 12/25/17 19:25 Mucosa - Nasopharyngeal Respiratory Panel (PCR) - Final 12/25/17 09:46 Urine, Clean Catch Streptococcus pneumoniae Antigen (M - Final 12/25/17 09:46 Urine, Clean Catch Legionella Antigen - Final Estimated Creatinine Clearance: 50.59 Goal Trough: 10-15 mcg/mL Pharmacy Plan for Drug Dosing: Pharmacy Service will continue to monitor and adjust dosing as required. TROUGH 9.1 REDO LABS WITH NEXT DOSE CRCL IS IMPROVING Follow-Up Labs: Trough Vancomycin Labs to be done on [date and time ordered]: 12/28 @ 1800
[2017-12-28] MEDS: busPIRone 5 MG Tablet 10 MG PO ×2 (05:59→14:49)
[2017-12-28] MEDS: HYDROcodone Bitartrate/Apap 5/325 Tablet PO ×2 (05:59→14:52)
[2017-12-28] MEDS: Piperacil/Tazobactam 3.375 GM/50 ML ML IV (05:59)
[2017-12-28 06:28] LABS: Hematocrit 32.7 % (37-47); Hemoglobin 10.5 g/dl (12.0-15.0); Mean Corp Hgb Conc 32.1 g/gl (32-36); Mean Corpuscular Hgb 27.3 pg (27.0-32.0); Mean Corpuscular Volume 84.9 fL (81-99); Mean Platelet Vol. 10.9 fl (6.2-12.0); Platelet Count 227 K/mm3 (150-450); RBC Distribution Width SD 54.9 fl (35.1-43.9); Red Blood Count 3.85 M/mm3 (4.2-5.4); White Blood Count 9.8 K/mm3 (4.4-11.0)
[2017-12-28 06:31] LABS: Scan Indicated on CBC? Y/N NO
[2017-12-28] MEDS: Ipratropium/Albuterol Sulfate 3 ML AMPUL.NEB INHALATION ×3 (06:48→14:26)
[2017-12-28 07:00] LABS: Anion Gap 11 (5-15); BUN 17 mg/dL (7-18); BUN/Creat Ratio 18.7 RATIO (10-20); Calcium,Total 8.4 mg/dL (8.5-10.1); Chloride 102 mmol/L (98-107); Creatinine, Serum 0.91 mg/dL (0.55-1.02); EST Glomerular Filtration Rate 66 mL/min (>60); Est Glom Filt Rate - Afr Amer 80 mL/min (>60); Estimated Creatinine Clearance 48.37 ml/min; Glucose 198 mg/dL (74-106); Potassium 3.2 mmol/L (3.5-5.1); Sodium Level 139 mmol/L (136-145)
[2017-12-28] MEDS: Insulin Lispro 100 UNIT/ML INSULN.PEN SC ×2 (08:27→11:38)
[2017-12-28] MEDS: Gabapentin 100 MG Capsule PO ×2 (08:28→11:38)
[2017-12-28] MEDS: DULoxetine Hcl 60 MG Capsule PO (08:28)
[2017-12-28] MEDS: Famotidine 20 MG Tablet PO (08:29)
[2017-12-28] MEDS: predniSONE 20 MG Tablet PO (08:29)
[2017-12-28] MEDS: buPROPion (SR) 150 MG Tablet.SA PO (08:29)
[2017-12-28] MEDS: guaiFENesin 1,200 MG Tablet 1200 MG PO (08:29)
--- NOTE | 2017-12-28 10:44 | CASEMGMT ---
Per LUIS Warren, update needs sent to [facility]. Call placed to Trudy, tali, to let her know updated clinical info would be faxed. Faxed med list, H&P, 12/27/17 progress note, PT and OT documentation. Marie Mitchell LPN Clinical Support
--- NOTE | 2017-12-28 10:46 | CASEMGMT ---
Patient is from [facility]. Physician said patient will likely be d/c today. LUIS called Trudy at [facility] and let her know about d/c. LUIS also called [facility] and arranged for patient to get picked up at via van. Briana DAHL MSW
[2017-12-28 11:56] LABS: Bedside Glucose 236 mg/dL (70-110)
--- NOTE | 2017-12-28 11:56 | PCM.EXTCARCO ---
- Diet 12/28/17 09:16 Diet: Regular Diet Food consistency:: Regular Liquid Consistency:: Regular/Thin Is pt able to select menu?: Yes Diet Comments: Supervision as requested; assistance w/ setup; seated at 90 degrees - Routine Orders/Code Status Enema Type: Fleetz Enema Frequency: Daily PRN Suppository Type: Dulcolax 10mg Suppository Frequency: Daily PRN O2 Liters per Minute: 2-4 O2 Frequency: PRN Keep PO Greater than or Equal to (%): 90 Routine Lab Work: CBC, BMP, - - Weekly Code Status: Full Code - Wound(s) Coccyx Wound Type: Pressure Injury - Suggestions for Active Care Change Position every (hours): 2 Times a day to sit in chair: 3 - Therapies Physical Therapy: Eval and Treat Occupational Therapy: Eval and Treat Speech Therapy: Eval and Treat - Problem/Diagnosis (1) Abdominal pain Status: Acute Current Visit: Yes (2) ABDULLAHI (obstructive sleep apnea) Status: Chronic Current Visit: No (3) Tobacco dependence due to cigarettes Status: Chronic Current Visit: No (4) Non-compliance Status: Chronic Current Visit: No (5) Syncope Status: Resolved Current Visit: No (6) Hypersomnia Status: Chronic Current Visit: No (7) Anemia Status: Chronic Comment: Normocytic Current Visit: No (8) HTN (hypertension) Status: Chronic Current Visit: No (9) Morbid obesity with BMI of 40.0-44.9, adult Status: Chronic Current Visit: No (10) COPD (chronic obstructive pulmonary disease) Status: Chronic Current Visit: No (11) Chronic pain Status: Chronic Current Visit: No (12) Chronic atrial fibrillation Status: Chronic Current Visit: No (13) Chronic hypoxemic respiratory failure Status: Chronic Comment: non-compliant with oxygen Current Visit: No (14) Hyperlipemia Status: Chronic Current Visit: No (15) Type 2 diabetes mellitus Status: Chronic Comment: uncontrolled Current Visit: No (16) GERD (gastroesophageal reflux disease) Status: Chronic Current Visit: No (17) Anxiety Status: Chronic Current Visit: No (18) Insomnia Status: Chronic Current Visit: No (19) Acute encephalopathy Status: Acute Current Visit: Yes (20) Acute kidney injury Status: Acute Current Visit: Yes (21) HCAP (healthcare-associated pneumonia) Status: Acute Current Visit: Yes - Allergies/Procedures Done in Hospital Allergies/Adverse Reactions: Allergies venom-honey bee [bee venom (honey bee)] Allergy (Verified 12/25/17 13:04) Swelling levofloxacin [From Levaquin] Adverse Reaction (Verified 12/25/17 13:04) Nausea oxycodone HCl [From Percocet] Adverse Reaction (Verified 12/25/17 13:04) Nausea Penicillins Adverse Reaction (Verified 12/25/17 13:04) Nausea/Vom/Diarrhea Procedures: None - Type of Care/Length of Stay Estimated LOS: More Than 30 Days Type of Care Needed: Skilled Rehab Potential: Fair Prognosis: Fair - Additional Orders/Day of Discharge H&P will serve as current which was dated: 12/25/17 Day of Discharge: 12/28/17 - Dietary and Speech Recommendations Dietitian Recommendations/Changes: Rec diet change to CHO controlled. Will provide Glucerna w/ meals for additional calories/protein if consumed. - Follow Up Care Primary Care Physician: Camden Burger [Primary Care Provider] - Please follow up with your Primary Care Physician in: 1 Week Please Follow Up With: Matthias Chong MD When: As scheduled Please Follow Up With: Camden Mccormick MD When: 1 Week
--- NOTE | 2017-12-28 12:01 | PCM.DC.SUM ---
<Marie Hoover - Last Filed: 12/28/17 12:14> Discharge Date and Diagnosis Date of Admission: 12/25/17 Date of Discharge: 12/28/17 - Primary Discharge Diagnosis Active and Suspected Problems (Last Reviewed 12/14/17 @ 13:10 by Marylu Howell NP-C) 1. Acute healthcare acquired right lower lobe pneumonia 2. Acute kidney injury secondary to dehydration 3. Acute toxic and metabolic encephalopathy 4. Acute lactobacillus cystitis 5. Bradycardia/digoxin toxicity 6. Chronic hypoxic respiratory failure due to chronic severe COPD - Secondary Discharge Diagnosis Chronic Problems (Last Reviewed 12/14/17 @ 13:10 by Marylu Howell NP-C) ABDULLAHI (obstructive sleep apnea) (Chronic) Tobacco dependence due to cigarettes (Chronic) Non-compliance (Chronic) Hypersomnia (Chronic) Anemia (Chronic) Normocytic HTN (hypertension) (Chronic) Morbid obesity with BMI of 40.0-44.9, adult (Chronic) COPD (chronic obstructive pulmonary disease) (Chronic) Chronic pain (Chronic) Chronic atrial fibrillation (Chronic) Chronic hypoxemic respiratory failure (Chronic) non-compliant with oxygen Hyperlipemia (Chronic) Type 2 diabetes mellitus (Chronic) uncontrolled GERD (gastroesophageal reflux disease) (Chronic) Anxiety (Chronic) Insomnia (Chronic) Hospital Course and Treatment Imaging Results: Diagnostic Data Chest X-Ray 12/25/17 15:50 IMPRESSION: No acute cardiopulmonary disease or interval change. Electronically Signed: Lazaro Freeman DO at 16:24 EST Tel [phone], Service support , Brain CT 12/25/17 17:07 IMPRESSION: Chronic involutional changes of the brain. Electronically Signed: Musa Patel MD at 17:54 EST , Service support , Abdomen Ultrasound 12/25/17 17:38 IMPRESSION: Question mild fatty infiltration of the liver without mass. No other sonographic evidence of right upper quadrant abnormality. Electronically Signed: Lazaro Freeman DO at 19:15 EST Tel [phone], Service support , Operations: None Procedures: None Summary of Care Provided: Patient is a 61-year-old female admitted 12/25/17 due to abdominal pain, poor appetite, lethargy. She has a past medical history of COPD, chronic atrial fibrillation, hypertension, type 2 diabetes mellitus, hyperlipidemia, GERD, anxiety, chronic hypoxic respiratory failure, obesity, ABDULLAHI. 1. Acute healthcare acquired pneumonia-CT of abdomen 12/23/2017 showed right lower lobe infiltrate infiltrate. Blood cultures show no growth in 48 hours. Urine for strep and Legionella negative. Unable to send sputum for culture. Continue home aerosol/inhaler regimen. Received IV Zosyn and IV vancomycin. Patient will be discharged on Augmentin 875 mg p.o. twice daily for 7 days. 2. Acute kidney injury-secondary to #1 and dehydration. Resolved with IV fluids. 3. Acute toxic and metabolic encephalopathy-brain CT with chronic changes. Secondary to #1/#2/#4. Resolved. Urine tox screen positive for methamphetamine and opiates, coincides with home medication regimen. Patient noted to have digoxin toxicity. 4. Acute lactobacillus cystitis/Abdominal pain-CT of abdomen and pelvis obtained as outpatient 12/23/2017 which showed sludge or small gallstones in the gallbladder. Right upper quadrant abdominal ultrasound showed mild fatty liver infiltration without mass. No evidence of right upper quadrant abnormality. UA negative. Urine culture shows lactobacillus species greater than 100,000 colony count. Discharge on Augmentin as noted above. 5. Bradycardia/digoxin toxicity-secondary to medication regimen including digoxin, Cardizem, propanolol regimen. Digoxin level 3.54. Rate improved. Patient will resume Cardizem and propanolol at discharge. Continue to hold digoxin until further follow-up with primary care physician or cardiology. 6. Chronic hypoxic respiratory failure due to chronic severe COPD-continue supplement oxygen to maintain O2 at or above 90%. Patient treated with IV Solu-Medrol during admission for wheezing although patient has chronic wheezing due to severe COPD. Will discharge on prednisone 40 mg x 5 days. Do not feel patient had acute exacerbation of COPD. Continue outpatient follow-up with pulmonary medicine as scheduled. 7. Chronic atrial fibrillation-continue Xarelto, Cardizem, propanolol. Hold digoxin as noted above. 8. Type 2 diabetes mellitus-continue home insulin regimen. Glucose elevated during admission due to IV Solu-Medrol. Continue Accu-Cheks before meals at bedtime with sliding scale insulin and long-acting regimen at discharge. Long-acting regimen may need titrated up if glucose remains elevated. Hemoglobin A1c 11/23/2017 9.4%. 9. Hypertension-stable. 10. Hyperlipidemia-continue statin. 11. History of mild cardiomyopathy- echo 07/11/17 with EF 75%. 12. GERD-continue home famotidine regimen. 13. Anxiety-continue home buspirone, bupropion regimen. 14. Obesity-encouraged diet and lifestyle modifications. 15. Tobacco dependence-encourage smoking cessation. 60. Obstructive sleep apnea-unclear if patient wears CPAP/BiPAP. Follows with pulmonary medicine. General: Alert, Oriented x3, Cooperative HEENT: Atraumatic, PERRLA, EOMI, Normocephalic Neck: Supple, No JVD, Negative Carotid Bruits Lungs: Diminished, Wheezes Cardiovascular: - - Atrial fibrillation, rate controlled Abdomen: Bowel Sounds Present, Soft, Non Tender, Non-Distended Extremities: No clubbing, No cyanosis, No edema, Capillary Refill Less than 3 Seconds Skin: No rashes, No breakdown Musculoskeletal: No Tenderness to Palpation of Joints or Extremities Neurological: Cranial nerves II-XII grossly intact, Neuro grossly intact Psych/Mental Status: Normal Affect, Appropriate Patient seen and examined prior to discharge. Physical assessment as noted above. Patient stable for discharge to SNF with the follow-up recommendations as noted above. This patient was seen by FRANKLIN Cardenas under the supervision of Dr. Fabian. - Physical Exam Vital Signs Temp Pulse Resp BP Pulse Ox 98.4 F 89 18 154/72 H 93 12/28/17 09:00 12/28/17 09:00 12/28/17 09:00 12/28/17 09:00 12/28/17 09:00 Oxygen Flow Rate (L/min) 2 Oxygen Delivery Method Room Air Weight: 194 lb 3.636 oz Body Mass Index (BMI) 36.6 Finger Stick Blood Glucose 364 Intake and Output for Last 24 Hours 12/26/17 12/27/17 12/28/17 23:59 23:59 23:59 Intake Total 3918.4 / 3918.4 2777 / 2777 2181.8 / 2181.8 Output Total 500 / 500 800 / 800 Balance 3918.4 / 3918.4 2277 / 2277 1381.8 / 1381.8 Microbiology Past 72 Hours 12/25/17 16:23 Urine Culture - Final Urine, Catheterized Lactobacillus sp. 12/25/17 15:05 Blood Culture - Preliminary Blood Culture (Wb) - Anticubital Left No growth in 48 hours. 12/25/17 15:15 Blood Culture - Preliminary Blood Culture (Wb) - No Site/Description Given No growth in 48 hours. 12/25/17 19:25 Respiratory Panel (PCR) - Final Mucosa - Nasopharyngeal 12/25/17 09:46 Streptococcus pneumoniae Antigen (M - Final Urine, Clean Catch 12/25/17 09:46 Legionella Antigen - Final Urine, Clean Catch Laboratory Tests Past 24 Hrs 12/27/17 12/28/17 12/28/17 17:33 06:10 06:10 WBC 9.8 RBC 3.85 L Hgb 10.5 L Hct 32.7 L MCV 84.9 MCH 27.3 MCHC 32.1 RDW 18.0 H RDW Differential 54.9 H Plt Count 227 MPV 10.9 Sodium 139 Potassium 3.2 L Chloride 102 Carbon Dioxide 26.0 Anion Gap 11 BUN 17 Creatinine 0.91 Estim Creat Clear Calc 48.37 Est GFR (MDRD) Af Amer 80 Est GFR (MDRD) Non-Af 66 BUN/Creatinine Ratio 18.7 Glucose 198 H Calcium 8.4 L Vancomycin Trough 9.1 POC Glucose 12/28/17 12/27/17 12/27/17 11:36 22:46 16:26 POC Glucose 236 H 370 H 412 H Home Medications: Medications to take at Discharge Albuterol Aerosols [Ventolin Aerosols] 2.5 mg INHALATION Q2H PRN PRN 05/12/17 Atorvastatin Calcium [Lipitor] 40 mg PO QHS 05/12/17 Budesonide/Formoterol 160/4.5 [Symbicort 160/4.5 Mcg Inhaler (SP)] 2 puff INHALATION BID 05/12/17 Bupropion HCl [Bupropion HCl Sr] 150 mg PO BID 05/12/17 Buspirone HCl 10 mg PO TID 05/12/17 Famotidine [Pepcid] 20 mg PO BID 05/12/17 Glucagon,Human Recombinant [Glucagon Emergency Kit] 1 mg IM PRN PRN 05/12/17 Ipratropium/Albuterol Sulfate [Duoneb] 3 ml INHALATION Q6H PRN 05/12/17 Lisinopril [Prinivil] 5 mg PO DAILY 05/12/17 Propranolol HCl [Inderal (Beta Rubén)] 10 mg PO BID 05/12/17 Sennosides/Docusate Sodium [Senna-Docusate Sodium Tablet] 2 tab PO DAILY PRN PRN 05/12/17 Mag Hydrox/Al Hydrox/Simeth [Mylanta II] 30 ml PO Q6H PRN PRN 08/11/17 docusate sodium 100 mg capsule 100 mg PO QHS 09/01/17 Rivaroxaban [Xarelto] 20 mg PO DAILY #0 11/03/17 Calcium Carbonate [Tums] 500 mg PO Q6H PRN PRN 11/20/17 Insulin Lispro [Humalog KwikPen] See Protocol SUBCUT 4X/DAYCM insuln.pen 11/24/17 Benzonatate [Tessalon Perle] 100 mg PO TID PRN PRN 12/23/17 Bisacodyl [Dulcolax] 10 mg RECTAL DAILY 12/23/17 Duloxetine HCl 60 mg PO DAILY 12/23/17 Furosemide [Lasix] 40 mg PO BIDLX 12/23/17 Gabapentin [Neurontin] 100 mg PO TIDCM 12/23/17 Guaifenesin [Mucinex] 1,200 mg PO BID PRN 12/23/17 Hydrocodone/Acetaminophen [Hydrocodone-Acetamin 5-325 mg] 1 each PO Q6H PRN 12/23/17 Loperamide [Imodium] 2 mg PO PRN PRN 12/23/17 Polyethylene Glycol 3350 [Miralax] 17 gm PO DAILY 12/23/17 Acetaminophen 650 mg PO PRN PRN 12/25/17 Diltiazem HCl [Diltiazem 12Hr ER] 120 mg PO BID 12/25/17 Insulin Glargine,Hum.rec.anlog [Basaglar Kwikpen U-100] 20 unit SQ QHS 12/25/17 Magnesium Hydroxide [Milk of Magnesia] 30 ml PO DAILY 12/25/17 Ondansetron HCl [Zofran] 4 mg PO Q6H PRN PRN 12/25/17 Amox/Clavulanate Tablet [Augmentin Tablet] 875 mg PO Q12H #14 tablet 12/28/17 Digoxin 250 mcg PO DAILY #0 12/28/17 Prednisone 40 mg PO DAILY 5 Days tablet 12/28/17 Following Prescrptions Were Given to Patient: Amox/Clavulanate Tablet [Augmentin Tablet] 875 mg PO Q12H #14 tablet Prednisone 40 mg PO DAILY 5 Days tablet Primary Care Physician: Camden Burger [Primary Care Provider] - Please follow up with your Primary Care Physician in: 1 Week Please Follow Up With: Matthias Chong MD When: As scheduled Please Follow Up With: Camden Mccormick MD When: 1 Week Disposition: Longterm facility Minutes spent on discharge:: 35 Patient Condition:: Stable Medical Necessity - Tobacco Use Smoking Status: Current some day smoker Tobacco Use: Cigarettes Meaningful Use Info Meaningful Use Diagnoses (Choose all that apply): None applicable <Jessica Fabian E - Last Filed: 12/28/17 13:39> Discharge Date and Diagnosis - Secondary Discharge Diagnosis Chronic Problems (Last Reviewed 12/14/17 @ 13:10 by Marylu Howell NP-C) ABDULLAHI (obstructive sleep apnea) (Chronic) Tobacco dependence due to cigarettes (Chronic) Non-compliance (Chronic) Hypersomnia (Chronic) Anemia (Chronic) Normocytic HTN (hypertension) (Chronic) Morbid obesity with BMI of 40.0-44.9, adult (Chronic) COPD (chronic obstructive pulmonary disease) (Chronic) Chronic pain (Chronic) Chronic atrial fibrillation (Chronic) Chronic hypoxemic respiratory failure (Chronic) non-compliant with oxygen Hyperlipemia (Chronic) Type 2 diabetes mellitus (Chronic) uncontrolled GERD (gastroesophageal reflux disease) (Chronic) Anxiety (Chronic) Insomnia (Chronic) Hospital Course and Treatment Summary of Care Provided: Hospitalist note: Discharge summary above reviewed and I agree with above discharge plan. Patient was admitted for pain, lethargy and poor appetite and she was found to have focal infiltrate of the posterior medial segment of the right lower lobe on CT scan abdomen and pelvis that was done 2 days before admission and she was diagnosed with healthcare associated pneumonia. She was treated with IV Zosyn and vancomycin. Her pneumococcal and Legionella antigen were negative. Blood culture showed no growth in 48 hours. Urine culture revealed lactobacillus. Respiratory panel for viruses were negative. She was found to have acute kidney injury which is attributed to infection and poor oral intake, was treated with IV fluids and his creatinine came down back to normal. On admission, patient was confused which is attributed to metabolic encephalopathy secondary to pneumonia and acute kidney injury. CT scan brain showed no acute findings. Patient has been on digoxin for chronic atrial fibrillation and her digoxin level was elevated consistent with digoxin toxicity. Her heart rate has been stable throughout admission. With above-mentioned treatment, patient is improved and she remained afebrile for more than 48 hours. Her oxygen improved and she was able to maintain her pulse ox at 93% on room air. Patient discharged to senior living facility in a stable medical condition, discharged on Augmentin to complete 7 days of treatment discharged on prednisone 40 mg p.o. daily for 5 days, continued on Xarelto, Cardizem and metoprolol for chronic atrial fibrillation, digoxin held because of digoxin toxicity, recommended follow-up with PCP in 1 week, follow-up with pulmonology according to Dr. Chong, follow-up with cardiology in 1 week. - Physical Exam General: Alert, Oriented x3, Cooperative, No apparent distress. HEENT: Atraumatic, PERRLA, EOMI. Neck: Supple, No JVD, Negative Carotid Bruits, Trachea Midline, Thyroid Normal. Lungs: Diminished breath sounds bilateral, otherwise clear, No rhonchi, No wheeze, No rales. Cardiovascular: iregular Rhythm, Normal S1, Normal S2, PMI Normal. Abdomen: Bowel Sounds Present, Soft, Non Tender, Non-Distended, No Hepato-splenomegaly. Extremities: No clubbing, No cyanosis, No edema Skin: No rashes, No breakdown Neurological: Neuro grossly intact Vital Signs are stable. This note was generated with [email or web address] dictation software. It may contain incorrect words, spelling, and punctuation that were not noted in checking the note before signing. - Physical Exam Vital Signs Temp Pulse Resp BP Pulse Ox 98.4 F 76 19 H 154/72 H 93 12/28/17 09:00 12/28/17 12:01 12/28/17 12:01 12/28/17 09:00 12/28/17 09:00 Oxygen Flow Rate (L/min) 2 Oxygen Delivery Method Room Air Weight: 194 lb 3.636 oz Body Mass Index (BMI) 36.6 Finger Stick Blood Glucose 364 Intake and Output for Last 24 Hours 12/26/17 12/27/17 12/28/17 23:59 23:59 23:59 Intake Total 3918.4 / 3918.4 2777 / 2777 2181.8 / 2181.8 Output Total 500 / 500 800 / 800 Balance 3918.4 / 3918.4 2277 / 2277 1381.8 / 1381.8 Microbiology Past 72 Hours 12/25/17 16:23 Urine Culture - Final Urine, Catheterized Lactobacillus sp. 12/25/17 15:05 Blood Culture - Preliminary Blood Culture (Wb) - Anticubital Left No growth in 48 hours. 12/25/17 15:15 Blood Culture - Preliminary Blood Culture (Wb) - No Site/Description Given No growth in 48 hours. 12/25/17 19:25 Respiratory Panel (PCR) - Final Mucosa - Nasopharyngeal 12/25/17 09:46 Streptococcus pneumoniae Antigen (M - Final Urine, Clean Catch 12/25/17 09:46 Legionella Antigen - Final Urine, Clean Catch Laboratory Tests Past 24 Hrs 12/27/17 12/28/17 12/28/17 17:33 06:10 06:10 WBC 9.8 RBC 3.85 L Hgb 10.5 L Hct 32.7 L MCV 84.9 MCH 27.3 MCHC 32.1 RDW 18.0 H RDW Differential 54.9 H Plt Count 227 MPV 10.9 Sodium 139 Potassium 3.2 L Chloride 102 Carbon Dioxide 26.0 Anion Gap 11 BUN 17 Creatinine 0.91 Estim Creat Clear Calc 48.37 Est GFR (MDRD) Af Amer 80 Est GFR (MDRD) Non-Af 66 BUN/Creatinine Ratio 18.7 Glucose 198 H Calcium 8.4 L Vancomycin Trough 9.1 POC Glucose 12/28/17 12/27/17 12/27/17 11:36 22:46 16:26 POC Glucose 236 H 370 H 412 H Meaningful Use Info Meaningful Use Diagnoses (Choose all that apply): None applicable Code Visit Inpatient E&M: 81584 Disch Hosp
--- NOTE | 2017-12-28 12:06 | DS.PCM_ITS ---
<Marie Hoover - Last Filed: 12/28/17 12:14> Discharge Date and Diagnosis Date of Admission: 12/25/17 Date of Discharge: 12/28/17 - Primary Discharge Diagnosis Active and Suspected Problems (Last Reviewed 12/14/17 @ 13:10 by Marylu Howell NP-C) 1. Acute healthcare acquired right lower lobe pneumonia 2. Acute kidney injury secondary to dehydration 3. Acute toxic and metabolic encephalopathy 4. Acute lactobacillus cystitis 5. Bradycardia/digoxin toxicity 6. Chronic hypoxic respiratory failure due to chronic severe COPD - Secondary Discharge Diagnosis Chronic Problems (Last Reviewed 12/14/17 @ 13:10 by Marylu Howell NP-C) ABDULLAHI (obstructive sleep apnea) (Chronic) Tobacco dependence due to cigarettes (Chronic) Non-compliance (Chronic) Hypersomnia (Chronic) Anemia (Chronic) Normocytic HTN (hypertension) (Chronic) Morbid obesity with BMI of 40.0-44.9, adult (Chronic) COPD (chronic obstructive pulmonary disease) (Chronic) Chronic pain (Chronic) Chronic atrial fibrillation (Chronic) Chronic hypoxemic respiratory failure (Chronic) non-compliant with oxygen Hyperlipemia (Chronic) Type 2 diabetes mellitus (Chronic) uncontrolled GERD (gastroesophageal reflux disease) (Chronic) Anxiety (Chronic) Insomnia (Chronic) Hospital Course and Treatment Imaging Results: Diagnostic Data Chest X-Ray 12/25/17 15:50 IMPRESSION: No acute cardiopulmonary disease or interval change. Electronically Signed: Lazaro Freeman DO at 16:24 EST Tel [phone], Service support , Brain CT 12/25/17 17:07 IMPRESSION: Chronic involutional changes of the brain. Electronically Signed: Musa Patel MD at 17:54 EST , Service support , Abdomen Ultrasound 12/25/17 17:38 IMPRESSION: Question mild fatty infiltration of the liver without mass. No other sonographic evidence of right upper quadrant abnormality. Electronically Signed: Lazaro Freeman DO at 19:15 EST Tel [phone], Service support , Operations: None Procedures: None Summary of Care Provided: Patient is a 61-year-old female admitted 12/25/17 due to abdominal pain, poor appetite, lethargy. She has a past medical history of COPD, chronic atrial fibrillation, hypertension, type 2 diabetes mellitus, hyperlipidemia, GERD, anxiety, chronic hypoxic respiratory failure, obesity, ABDULLAHI. 1. Acute healthcare acquired pneumonia-CT of abdomen 12/23/2017 showed right lower lobe infiltrate infiltrate. Blood cultures show no growth in 48 hours. Urine for strep and Legionella negative. Unable to send sputum for culture. Continue home aerosol/inhaler regimen. Received IV Zosyn and IV vancomycin. Patient will be discharged on Augmentin 875 mg p.o. twice daily for 7 days. 2. Acute kidney injury-secondary to #1 and dehydration. Resolved with IV fluids. 3. Acute toxic and metabolic encephalopathy-brain CT with chronic changes. Secondary to #1/#2/#4. Resolved. Urine tox screen positive for methamphetamine and opiates, coincides with home medication regimen. Patient noted to have digoxin toxicity. 4. Acute lactobacillus cystitis/Abdominal pain-CT of abdomen and pelvis obtaine d as outpatient 12/23/2017 which showed sludge or small gallstones in the gallbladder. Right upper quadrant abdominal ultrasound showed mild fatty liver infiltration without mass. No evidence of right upper quadrant abnormality. UA negative. Urine culture shows lactobacillus species greater than 100,000 colony count. Discharge on Augmentin as noted above. 5. Bradycardia/digoxin toxicity-secondary to medication regimen including digoxin, Cardizem, propanolol regimen. Digoxin level 3.54. Rate improved. Patient will resume Cardizem and propanolol at discharge. Continue to hold digoxin until further follow-up with primary care physician or cardiology. 6. Chronic hypoxic respiratory failure due to chronic severe COPD-continue supplement oxygen to maintain O2 at or above 90%. Patient treated with IV Solu- Medrol during admission for wheezing although patient has chronic wheezing due to severe COPD. Will discharge on prednisone 40 mg x 5 days. Do not feel patient had acute exacerbation of COPD. Continue outpatient follow-up with pulmonary medicine as scheduled. 7. Chronic atrial fibrillation-continue Xarelto, Cardizem, propanolol. Hold digoxin as noted above. 8. Type 2 diabetes mellitus-continue home insulin regimen. Glucose elevated during admission due to IV Solu-Medrol. Continue Accu-Cheks before meals at bedtime with sliding scale insulin and long-acting regimen at discharge. Long- acting regimen may need titrated up if glucose remains elevated. Hemoglobin A1c 11/23/2017 9.4%. 9. Hypertension-stable. 10. Hyperlipidemia-continue statin. 11. History of mild cardiomyopathy- echo 07/11/17 with EF 75%. 12. GERD-continue home famotidine regimen. 13. Anxiety-continue home buspirone, bupropion regimen. 14. Obesity-encouraged diet and lifestyle modifications. 15. Tobacco dependence-encourage smoking cessation. 60. Obstructive sleep apnea-unclear if patient wears CPAP/BiPAP. Follows with pulmonary medicine. General: Alert, Oriented x3, Cooperative HEENT: Atraumatic, PERRLA, EOMI, Normocephalic Neck: Supple, No JVD, Negative Carotid Bruits Lungs: Diminished, Wheezes Cardiovascular: - - Atrial fibrillation, rate controlled Abdomen: Bowel Sounds Present, Soft, Non Tender, Non-Distended Extremities: No clubbing, No cyanosis, No edema, Capillary Refill Less than 3 Seconds Skin: No rashes, No breakdown Musculoskeletal: No Tenderness to Palpation of Joints or Extremities Neurological: Cranial nerves II-XII grossly intact, Neuro grossly intact Psych/Mental Status: Normal Affect, Appropriate Patient seen and examined prior to discharge. Physical assessment as noted above. Patient stable for discharge to SNF with the follow-up recommendations as noted above. This patient was seen by FRANKLIN Cardenas under the supervision of Dr. Fabian. - Physical Exam Vital Signs Temp Pulse Resp BP Pulse Ox 98.4 F 89 18 154/72 H 93 12/28/17 09:00 12/28/17 09:00 12/28/17 09:00 12/28/17 09:00 12/28/17 09:00 Oxygen Flow Rate (L/min) 2 Oxygen Delivery Method Room Air Weight: 194 lb 3.636 oz Body Mass Index (BMI) 36.6 Finger Stick Blood Glucose 364 Intake and Output for Last 24 Hours 12/26/17 12/27/17 12/28/17 23:59 23:59 23:59 Intake Total 3918.4 / 3918.4 2777 / 2777 2181.8 / 2181.8 Output Total 500 / 500 800 / 800 Balance 3918.4 / 3918.4 2277 / 2277 1381.8 / 1381.8 Microbiology Past 72 Hours 12/25/17 16:23 Urine Culture - Final Urine, Catheterized Lactobacillus sp. 12/25/17 15:05 Blood Culture - Preliminary Blood Culture (Wb) - Anticubital Left No growth in 48 hours. 12/25/17 15:15 Blood Culture - Preliminary Blood Culture (Wb) - No Site/Description Given No growth in 48 hours. 12/25/17 19:25 Respiratory Panel (PCR) - Final Mucosa - Nasopharyngeal 12/25/17 09:46 Streptococcus pneumoniae Antigen (M - Final Urine, Clean Catch 12/25/17 09:46 Legionella Antigen - Final Urine, Clean Catch Laboratory Tests Past 24 Hrs 12/27/17 12/28/17 12/28/17 17:33 06:10 06:10 WBC 9.8 RBC 3.85 L Hgb 10.5 L Hct 32.7 L MCV 84.9 MCH 27.3 MCHC 32.1 RDW 18.0 H RDW Differential 54.9 H Plt Count 227 MPV 10.9 Sodium 139 Potassium 3.2 L Chloride 102 Carbon Dioxide 26.0 Anion Gap 11 BUN 17 Creatinine 0.91 Estim Creat Clear Calc 48.37 Est GFR (MDRD) Af Amer 80 Est GFR (MDRD) Non-Af 66 BUN/Creatinine Ratio 18.7 Glucose 198 H Calcium 8.4 L Vancomycin Trough 9.1 POC Glucose 12/28/17 12/27/17 12/27/17 11:36 22:46 16:26 POC Glucose 236 H 370 H 412 H Home Medications: Medications to take at Discharge Albuterol Aerosols [Ventolin Aerosols] 2.5 mg INHALATION Q2H PRN PRN 05/12/17 Atorvastatin Calcium [Lipitor] 40 mg PO QHS 05/12/17 Budesonide/Formoterol 160/4.5 [Symbicort 160/4.5 Mcg Inhaler (SP)] 2 puff INHALATION BID 05/12/17 Bupropion HCl [Bupropion HCl Sr] 150 mg PO BID 05/12/17 Buspirone HCl 10 mg PO TID 05/12/17 Famotidine [Pepcid] 20 mg PO BID 05/12/17 Glucagon,Human Recombinant [Glucagon Emergency Kit] 1 mg IM PRN PRN 05/12/17 Ipratropium/Albuterol Sulfate [Duoneb] 3 ml INHALATION Q6H PRN 05/12/17 Lisinopril [Prinivil] 5 mg PO DAILY 05/12/17 Propranolol HCl [Inderal (Beta Rubén)] 10 mg PO BID 05/12/17 Sennosides/Docusate Sodium [Senna-Docusate Sodium Tablet] 2 tab PO DAILY PRN PRN 05/12/17 Mag Hydrox/Al Hydrox/Simeth [Mylanta II] 30 ml PO Q6H PRN PRN 08/11/17 docusate sodium 100 mg capsule 100 mg PO QHS 09/01/17 Rivaroxaban [Xarelto] 20 mg PO DAILY #0 11/03/17 Calcium Carbonate [Tums] 500 mg PO Q6H PRN PRN 11/20/17 Insulin Lispro [Humalog KwikPen] See Protocol SUBCUT 4X/DAYCM insuln.pen 11/24/17 Benzonatate [Tessalon Perle] 100 mg PO TID PRN PRN 12/23/17 Bisacodyl [Dulcolax] 10 mg RECTAL DAILY 12/23/17 Duloxetine HCl 60 mg PO DAILY 12/23/17 Furosemide [Lasix] 40 mg PO BIDLX 12/23/17 Gabapentin [Neurontin] 100 mg PO TIDCM 12/23/17 Guaifenesin [Mucinex] 1,200 mg PO BID PRN 12/23/17 Hydrocodone/Acetaminophen [Hydrocodone-Acetamin 5-325 mg] 1 each PO Q6H PRN 12/23/17 Loperamide [Imodium] 2 mg PO PRN PRN 12/23/17 Polyethylene Glycol 3350 [Miralax] 17 gm PO DAILY 12/23/17 Acetaminophen 650 mg PO PRN PRN 12/25/17 Diltiazem HCl [Diltiazem 12Hr ER] 120 mg PO BID 12/25/17 Insulin Glargine,Hum.rec.anlog [Basaglar Kwikpen U-100] 20 unit SQ QHS 12/25/17 Magnesium Hydroxide [Milk of Magnesia] 30 ml PO DAILY 12/25/17 Ondansetron HCl [Zofran] 4 mg PO Q6H PRN PRN 12/25/17 Amox/Clavulanate Tablet [Augmentin Tablet] 875 mg PO Q12H #14 tablet 12/28/17 Digoxin 250 mcg PO DAILY #0 12/28/17 Prednisone 40 mg PO DAILY 5 Days tablet 12/28/17 Following Prescrptions Were Given to Patient: Amox/Clavulanate Tablet [Augmentin Tablet] 875 mg PO Q12H #14 tablet Prednisone 40 mg PO DAILY 5 Days tablet Primary Care Physician: Camden Burger [Primary Care Provider] - Please follow up with your Primary Care Physician in: 1 Week Please Follow Up With: Matthias Chong MD When: As scheduled Please Follow Up With: Camden Mccormick MD When: 1 Week [facility]position[facility] Minutes spent on discharge:: 35 Patient Condition:: Stable Medical Necessity - Tobacco Use Smoking Status: Current some day smoker Tobacco Use: Cigarettes Meaningful Use Info Meaningful Use Diagnoses (Choose all that apply): None applicable <Jessica Fabian E - Last Filed: 12/28/17 13:39> Discharge Date and Diagnosis - Secondary Discharge Diagnosis Chronic Problems (Last Reviewed 12/14/17 @ 13:10 by Marylu Howell NP-C) ABDULLAHI (obstructive sleep apnea) (Chronic) Tobacco dependence due to cigarettes (Chronic) Non-compliance (Chronic) Hypersomnia (Chronic) Anemia (Chronic) Normocytic HTN (hypertension) (Chronic) Morbid obesity with BMI of 40.0-44.9, adult (Chronic) COPD (chronic obstructive pulmonary disease) (Chronic) Chronic pain (Chronic) Chronic atrial fibrillation (Chronic) Chronic hypoxemic respiratory failure (Chronic) non-compliant with oxygen Hyperlipemia (Chronic) Type 2 diabetes mellitus (Chronic) uncontrolled GERD (gastroesophageal reflux disease) (Chronic) Anxiety (Chronic) Insomnia (Chronic) Hospital Course and Treatment Summary of Care Provided: Hospitalist note: Discharge summary above reviewed and I agree with above discharge plan. Patient was admitted for pain, lethargy and poor appetite and she was found to have focal infiltrate of the posterior medial segment of the right lower lobe on CT scan abdomen and pelvis that was done 2 days before admission and she was diagnosed with healthcare associated pneumonia. She was treated with IV Zosyn and vancomycin. Her pneumococcal and Legionella antigen were negative. Blood culture showed no growth in 48 hours. Urine culture revealed lactobacillus. Respiratory panel for viruses were negative. She was found to have acute kidney injury which is attributed to infection and poor oral intake, was treated with IV fluids and his creatinine came down back to normal. On admission, patient was confused which is attributed to metabolic encephalopathy secondary to pneumonia and acute kidney injury. CT scan brain showed no acute findings. Patient has been on digoxin for chronic atrial fibrillation and her digoxin level was elevated consistent with digoxin toxicity. Her heart rate has been stable throughout admission. With above-mentioned treatment, patient is improved and she remained afebrile for more than 48 hours. Her oxygen improved and she was able to maintain her pulse ox at 93% on room air. Patient discharged to group home facility in a stable medical condition, discharged on Augmentin to complete 7 days of treatment discharged on prednisone 40 mg p.o. daily for 5 days, continued on Xarelto, Cardizem and metoprolol for chronic atrial fibrillation, digoxin held because of digoxin toxicity, recommended follow-up with PCP in 1 week, follow-up with pulmonology according to Dr. Chong, follow-up with cardiology in 1 week. - Physical Exam General: Alert, Oriented x3, Cooperative, No apparent distress. HEENT: Atraumatic, PERRLA, EOMI. Neck: Supple, No JVD, Negative Carotid Bruits, Trachea Midline, Thyroid Normal. Lungs: Diminished breath sounds bilateral, otherwise clear, No rhonchi, No whee ze, No rales. Cardiovascular: iregular Rhythm, Normal S1, Normal S2, PMI Normal. Abdomen: Bowel Sounds Present, Soft, Non Tender, Non-Distended, No Hepato- splenomegaly. Extremities: No clubbing, No cyanosis, No edema Skin: No rashes, No breakdown Neurological: Neuro grossly intact Vital Signs are stable. This note was generated with [employer] dictation software. It may contain incorrect words, spelling, and punctuation that were not noted in checking the note before signing. - Physical Exam Vital Signs Temp Pulse Resp BP Pulse Ox 98.4 F 76 19 H 154/72 H 93 12/28/17 09:00 12/28/17 12:01 12/28/17 12:01 12/28/17 09:00 12/28/17 09:00 Oxygen Flow Rate (L/min) 2 Oxygen Delivery Method Room Air Weight: 194 lb 3.636 oz Body Mass Index (BMI) 36.6 Finger Stick Blood Glucose 364 Intake and Output for Last 24 Hours 12/26/17 12/27/17 12/28/17 23:59 23:59 23:59 Intake Total 3918.4 / 3918.4 2777 / 2777 2181.8 / 2181.8 Output Total 500 / 500 800 / 800 Balance 3918.4 / 3918.4 2277 / 2277 1381.8 / 1381.8 Microbiology Past 72 Hours 12/25/17 16:23 Urine Culture - Final Urine, Catheterized Lactobacillus sp. 12/25/17 15:05 Blood Culture - Preliminary Blood Culture (Wb) - Anticubital Left No growth in 48 hours. 12/25/17 15:15 Blood Culture - Preliminary Blood Culture (Wb) - No Site/Description Given No growth in 48 hours. 12/25/17 19:25 Respiratory Panel (PCR) - Final Mucosa - Nasopharyngeal 12/25/17 09:46 Streptococcus pneumoniae Antigen (M - Final Urine, Clean Catch 12/25/17 09:46 Legionella Antigen - Final Urine, Clean Catch Laboratory Tests Past 24 Hrs 12/27/17 12/28/17 12/28/17 17:33 06:10 06:10 WBC 9.8 RBC 3.85 L Hgb 10.5 L Hct 32.7 L MCV 84.9 MCH 27.3 MCHC 32.1 RDW 18.0 H RDW Differential 54.9 H Plt Count 227 MPV 10.9 Sodium 139 Potassium 3.2 L Chloride 102 Carbon Dioxide 26.0 Anion Gap 11 BUN 17 Creatinine 0.91 Estim Creat Clear Calc 48.37 Est GFR (MDRD) Af Amer 80 Est GFR (MDRD) Non-Af 66 BUN/Creatinine Ratio 18.7 Glucose 198 H Calcium 8.4 L Vancomycin Trough 9.1 POC Glucose 12/28/17 12/27/17 12/27/17 11:36 22:46 16:26 POC Glucose 236 H 370 H 412 H Meaningful Use Info Meaningful Use Diagnoses (Choose all that apply): None applicable Code Visit Inpatient E&M: 09111 Disch Hosp
--- NOTE | 2017-12-28 12:20 | CASEMGMT ---
Faxed orders to [facility]. 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 Plan: d/c back to [facility] under intermediate level of care. Radha miller. Briana DAHL MSW
--- NOTE | 2017-12-28 15:13 | NURSING ---
report called to Bernie GORDON at [facility]
[2017-12-28 16:46] LABS: Bedside Glucose 215 mg/dL (70-110)
== END 2017-12-28 16:56 | disposition intermediate care facility (04) | DRG 139 ==
LOC: ED 13:34 → PCU 18:32
PROVIDERS: Internal Medicine; Nurse Practitioner Family; Admitting Provider Family Medicine; Emergency Provider Emergency Medicine; Family Provider Family Medicine; PCP Family Medicine; Visit Provider Hospitalist
DX: J18.9 Pneumonia, unspecified organism (principal); N17.9 Acute kidney failure, unspecified; J96.11 Chronic respiratory failure with hypoxia; G93.41 Metabolic encephalopathy; Y95 Nosocomial condition; E86.0 Dehydration; R00.1 Bradycardia, unspecified; T46.0X5A Adverse effect of cardiac-stimulant glycosides and drugs of similar action, initial encounter; J44.9 Chronic obstructive pulmonary disease, unspecified; N30.00 Acute cystitis without hematuria; B96.89 Other specified bacterial agents as the cause of diseases classified elsewhere; I48.2 Chronic atrial fibrillation; G47.33 Obstructive sleep apnea (adult) (pediatric); E11.9 Type 2 diabetes mellitus without complications; E66.9 Obesity, unspecified; I10 Essential (primary) hypertension; F41.9 Anxiety disorder, unspecified; K21.9 Gastro-esophageal reflux disease without esophagitis; I42.9 Cardiomyopathy, unspecified; E78.5 Hyperlipidemia, unspecified; Z79.4 Long term (current) use of insulin; Z68.36 Body mass index [BMI] 36.0-36.9, adult; Z79.01 Long term (current) use of anticoagulants; F17.210 Nicotine dependence, cigarettes, uncomplicated; Z99.81 Dependence on supplemental oxygen
CPT/HCPCS: 36415; 36600; 70450; 71045; 71046; 74177; 76705; 80048; 80053; 80162; 80202; 80307; 81001; 82140; 82803; 82962; 83605; 83690; 83735; 84443; 84484; 85025; 85027; 85610; 85730; 87040; 87086; 87088; 87449; 87633; 92526; 93005; 94640; 96360; 96361; 97110; 97162; 97166; 97530; 97802; 99284; 99285; J7030; J7040; J7050; Q9967; A4216

== ENCOUNTER 2018-01-14 11:07 | Inpatient (IN) | payer MEDICAID, SELFPAY ==
[2018-01-14] VITALS (16 sets, daily range): BP systolic 89–112; BP diastolic 33–66; PULSE 46–78; RESP 16–28; TEMP 35.9–36.9; O2SAT 87–99; BMI 37.3; BMI 36.0
--- NOTE | 2018-01-14 11:12 | ED.RN ---
O2 INCREASED TO 4L PULSE OX 89%.
--- NOTE | 2018-01-14 11:14 | ED.RN ---
PULSE OX 90% ON 6L NC
--- NOTE | 2018-01-14 11:14 | ED.RN ---
PT PLACED ON 50% VENTI MASK
--- NOTE | 2018-01-14 11:37 | EKG12_ITS ---
Test Reason : SOB Blood Pressure : / mmHG Vent. Rate : 045 BPM Atrial Rate : 078 BPM P-R Int : 000 ms QRS Dur : 092 ms QT Int : 356 ms P-R-T Axes : 000 069 -42 degrees QTc Int : 307 ms Atrial fibrillation with slow ventricular response Incomplete right bundle branch block ST & T wave abnormality, consider inferior ischemia ST & T wave abnormality, consider anterior ischemia Abnormal ECG Confirmed by SPENCER DELGADO, FLORENTINO ([id number]), publication editor DIANA GALVEZ ([id number]) on 01/19/2018 3:32:06 PM Referred By: ERNESTINE Confirmed By:FLORENTINO PALMER MD
--- NOTE | 2018-01-14 11:38 | US_ITS ---
STUDY: ABDOMINAL ULTRASOUND - RIGHT UPPER QUADRANT REASON FOR VISIT: Female, 62 years old. Gallstones. TECHNIQUE: Ultrasound evaluation of the right upper quadrant was performed with real-time and static veliz-scale imaging. TECHNICAL QUALITY: Adequate. COMPARISON: Comparison is made with prior study dated December 25, 2017. FINDINGS: Liver: The liver measures 16.1 cm. There is increased echogenicity consistent with fatty infiltration. The bile ducts are within normal limits. There is hepatic color flow. The direction of portal flow is hepatopetal. There is no demonstrated mass lesion. Gallbladder: Normal distended gallbladder. The gallbladder wall is thickened and measures 5 mm. There is a negative sonographic Pacheco's sign. There is no pericholecystic fluid. Tumefactive sludge is seen within the gallbladder lumen. Common Bile Duct (C.B.D.): The common bile duct measures 3.0 mm. Pancreas: Normal size of the head, body and tail of the pancreas. There is normal echogenicity of the pancreas. There is no demonstrated pancreatic mass or cyst. Right Kidney: Normal size of the right kidney. The right kidney measures 12.1 cm x 5.0 cm x 4.3 cm. Normal renal cortex. The right cortex measures 1.4 cm. There is no demonstrated renal mass or cyst. There is no right hydronephrosis. US/Gallbladder IMPRESSION: Thickened gallbladder wall. Tumefactive sludge is seen within the gallbladder lumen. Electronically Signed: Jose Lemos MD at 15:30 EST Tel [phone], Service support ,
[2018-01-14 12:05] LABS: Absolute Lymphocyte Count 2.08 X10^3/ul (0.83-4.51); Absolute Neutrophil Count 5.1 X10^3/uL (2.0-7.7); Basophil# 0.02 X10^3/uL; Basophil% 0.2 % (0-1); Eosinophil# 0.29 X10^3/uL; Eosinophils% 3.5 % (0-5); Hematocrit 34.7 % (37-47); Hemoglobin 10.9 g/dl (12.0-15.0); Lymphocyte # 2.08 X10^3/ul (4.0); Mean Corp Hgb Conc 31.4 g/gl (32-36); Mean Corpuscular Hgb 27.7 pg (27.0-32.0); Mean Corpuscular Volume 88.1 fL (81-99); Mean Platelet Vol. 11.3 fl (6.2-12.0); Monocyte# 0.87 X10^3/uL; Monocyte% 10.4 % (0-10); Neutrophil # 5.05 X10^3/uL (2.7-7.7); Neutrophil % 60.7 % (47-70); Platelet Count 223 K/mm3 (150-450); RBC Distribution Width CV 18.7 % (11.6-14.6); RBC Distribution Width SD 58.7 fl (35.1-43.9); Red Blood Count 3.94 M/mm3 (4.2-5.4); White Blood Count 8.3 K/mm3 (4.4-11.0)
[2018-01-14 12:06] LABS: POSITIVE COUNT NO; POSITIVE DIFFERENTIAL NO; POSITIVE MORPHOLOGY NO
[2018-01-14] MEDS: 0.9% Normal Saline 1,000 ML 150 ML IV ×2 (12:07→18:00)
--- NOTE | 2018-01-14 12:08 | RAD_ITS ---
STUDY: X-RAY CHEST REASON FOR EXAM: Female, 62 years old. Cough and shortness of breath. TECHNIQUE: Single AP portable view of the chest. COMPARISON: Comparison is made with prior study dated December 25, 2017. FINDINGS: EKG electrodes are seen. The lungs are clear and expanded. There is no demonstrated pleural abnormality. Normal size heart. Normal mediastinum and sangeeta. Normal visualized pulmonary arteries. There is atherosclerotic calcification of the aortic arch with tortuosity. There are degenerative changes of the visualized thoracic spine. Normal visualized ribs, clavicles, and shoulders. There is no demonstrated abnormality of the visualized soft tissue structures of the upper abdomen. RAD/Chest 1 View (Portable) IMPRESSION: No acute abnormality is seen. Electronically Signed: Jose Lemos MD at 12:23 EST Tel [phone], Service support ,
[2018-01-14 12:10] LABS: International Normalized Ratio 1.6; Partial Thromboplast Time 34.3 Seconds (24.1-36.2); Prothrombin Time (Protime)PT. 18.9 SECONDS (11.7-14.9)
[2018-01-14 12:19] LABS: ALB/GLOB Ratio 0.7 RATIO (0.9-2.4); AST(SGOT) 14 U/L (15-37); Alanine Aminotransfer ALT/SGPT 19 U/L (13-56); Albumin, Serum 2.5 g/dL (3.2-5.0); Alkaline Phosphatase 110 U/L (45-117); Anion Gap 7 (5-15); BUN 17 mg/dL (7-18); BUN/Creat Ratio 19.4 RATIO (10-20); Calcium,Total 8.3 mg/dL (8.5-10.1); Chloride 104 mmol/L (98-107); Creatinine, Serum 0.88 mg/dL (0.55-1.02); EST Glomerular Filtration Rate 70 mL/min (>60); Est Glom Filt Rate - Afr Amer 84 mL/min (>60); Estimated Creatinine Clearance 50.02 ml/min; Globulin 3.8 g/dL (2.2-4.2); Glucose 155 mg/dL (74-106); Lipase 33 U/L (73-393); Potassium 3.2 mmol/L (3.5-5.1); Protein, Total 6.3 g/dL (6.4-8.2); Sodium Level 140 mmol/L (136-145)
[2018-01-14 12:26] LABS: Base Excess 6 mmol/L (-2 to +2); Bicarbonate 29.1 mmol/L (22-26); Blood Gas Specimen Type ART; FI02 50; PO2 50 mmHG (75-100); SITE L Brachial; SO2 89 % (95-99); Time Given 1225; Total Carbon Dioxide 30 mmol/L; pCO2 35.9 mmHg (35-45); pH 7.52 (7.35-7.45)
[2018-01-14 12:33] LABS: Lactic Acid 0.7 mmol/L (0.4-2.0)
[2018-01-14 13:24] LABS: Digoxin Level 2.74 ng/mL (0.80-2.00)
--- NOTE | 2018-01-14 13:44 | CT_ITS ---
STUDY: CTA CHEST REASON FOR EXAM: Female, 62 years old. Hypoxia. Cough. RADIATION DOSAGE (If Supplied By Facility): CTDIvol = ( 19.64 ) mGy, DLP = ( 712.17 ) mGycm TECHNIQUE: The examination was performed with the intravenous administration of 100mL ml of Isovue 370 contrast material. Post-processing of the angiographic images was performed, with multiplanar reformation and 3D reconstruction. Individualized dose optimization techniques were used for this CT. COMPARISON: Comparison is made with prior study dated May 24, 2014. FINDINGS: Normal enhancement of the main pulmonary artery and right and left pulmonary arteries. Normal enhancement of the bilateral peripheral pulmonary arteries. There is no demonstrated pulmonary embolism. Normal thoracic aorta and visualized great vessels. There is no demonstrated aortic dissection. Normal heart and pericardium. Normal mediastinum. Normal hilar regions. Normal visualized trachea and bronchi. The lungs are well expanded. Patchy bibasilar infiltrates and/or atelectasis. Normal pleura. Normal chest wall structures. There are degenerative changes of thoracic spine. Normal visualized upper abdomen. CT/CTA Chest W/WO Contrast IMPRESSION: Bibasilar patchy infiltrates and/or atelectasis. Electronically Signed: Jose Lemos MD at 15:09 EST Tel [phone], Service support ,
[2018-01-14 13:52] LABS: Bacteria 0 SEEN /hpf (None Seen); Mucous, Urine 0 SEEN /hpf (<or=2+)
[2018-01-14 14:00] LABS: Color, Urine Yellow (Yellow); Glucose, Dipstick Normal (Normal); Ketone-Dipstick 5 mg/dl (Negative); Leukocyte Esterase-Dipstick 25 /ul (Negative); Nitrite-Dipstick Negative (Negative); Occult Blood-Urine Negative /ul (Negative); Protein-Dipstick 30 mg/dl (Negative); Specific Gravity, Urine 1.025 (1.002-1.030); Urine Bilirubin Dipstick Negative (Negative); Urine Clarity Sl. Cloudy (Clear); Urine Urobilinogen Normal (Normal)
[2018-01-14 14:11] LABS: Red Blood Cells-Urine 0 SEEN /hpf (0-5); Squamous Epithelial Cells - UA 0-5 SEEN /hpf (5-10); White Blood Cells 0-5 SEEN /hpf (0-5)
--- NOTE | 2018-01-14 15:52 | ED.VISSUMM ---
- ER Visit Summary Date of Service: 01/14/18 Chief Complaint: Abdominal pain cough History of Present Illness: The patient is a 62 F who [facility]. The patient recently admitted this month. At that time is noted that the patient had right-sided abdominal pain her blood pressure was low and she was bradycardic. She was found to be dig toxic and the cardia was felt to be combination of the digits propranolol and Cardizem. She has history of chronic hypoxemic respiratory failure and has been noncompliant with oxygen. It was felt the patient possibly had a pneumonia and received IV antibiotics. She was found to have cholelithiasis is supposed to have an appointment with Dr. Sal today. Today nurse practitioner called stating that on the she ordered IV fluids to be given however they are unable to secure an IV. Today she was rounded upon and was found to have a dry mouth. It was noted that her blood pressure was 90/40. She was hypoxic in the 80s and had a cough. She was also complaining of dysuria. It was felt that the patient was dehydrated due to lack of eating due to the abdominal pain from cholelithiasis. Physical Examination: Afebrile vital signs are stable patient noted to be bradycardic Gen: Well-nourished well-developed Head: Normocephalic atraumatic Eyes: Perrl EOMI ENT: TMs clear no rhinorrhea moist mucous membranes Neck: Supple no lymphadenopathy no JVD nontender CVS: Regularly irregular bradycardic rhythm no murmurs normal S1-S2 Respiratory: No distress clear to auscultation bilaterally chest nontender Abdomen: Soft nontender nondistended normal bowel sounds no masses Back: Nontender Extremity: Nontender was all extremities Skin: Normal color no rash Neuro: Lethargic but responds to voice CN II-XII intact normal strength sensation reflexes Test Results: Count is normal 8.3. BUN is 17 with a creatinine is 0.88. Liver enzymes normal lipase normal at 33. Dig is elevated 2.74. EKG shows atrial fibrillation at rate of [address] segments consistent with digoxin. Chest x-ray no acute findings. Because of the patient's degree of hypoxemia on the chest x-ray CTA was ordered to him straits no pulmonary embolism. Is felt that there is patchy bibasilar infiltrates. Ultrasound of the gallbladder was negative Pacheco's with no pericholecystic fluid. Emergency Department Course and Treatment: Patient received IV fluids. She received breathing treatments. Her mental status has waxed and waned. Think the patient has pneumonia I would think may be bronchitis. This is probably exacerbating her chronic hypoxia. I do not believe the patient has acute cholecystitis. Impression: 1. Bradycardia 2. Digitalis toxicity 3. Bronchitis 4. Chronic hypoxic respiratory failure This note was generated with [employer] dictation software. It may contain incorrect words, spelling, and punctuation that were not noted in review of the chart prior to signing ED Disposition - Plan for ED Patient: Chief Complaint: Shortness of Breath Referrals: Camden Burger [Primary Care Provider] -
[2018-01-14] MEDS: Ipratropium/Albuterol Sulfate 3 ML AMPUL.NEB INHALATION ×2 (16:11→19:08)
[2018-01-14] MEDS: Albuterol 2.5 MG/3 ML VIAL.NEB. INHALATION (16:11)
--- NOTE | 2018-01-14 16:39 | NURSING ---
DR RASHAAD CARLOS
--- NOTE | 2018-01-14 17:04 | NURSING ---
114 RASHAAD DIGOXIN TOXICITY BRADYCARDIA
--- NOTE | 2018-01-14 17:13 | PCM.HP.STD ---
Problem List (1) Bradycardia Status: Acute (2) Digoxin toxicity Status: Acute Qualifiers: Encounter type: initial encounter Injury intent: accidental or unintentional Qualified Code(s): T46.0X1A - Poisoning by cardiac-stimulant glycosides and drugs of similar action, accidental (unintentional), initial encounter History of Present Illness Date of Admission: 01/14/18 Chief Complaint: abdominal pain. shortness of breath. The patient is a 62 year old F sent from her longterm with pain and cough. Patient has had abdominal pain for several months now and was scheduled to see Dr. Sal today. They attempted to get an IV in her give her fluids but patient was unable to get IVs this patient was sent to the emergency room. Patient was noted to have a blood pressure of 90/40 and patient was also noted to be bradycardic with a heart rate in the 40s. Patient was hypoxic into the 80s. Patient underwent a CAT scan of her chest that showed some infiltrate versus atelectasis in the bases. She did undergo an ultrasound of her gallbladder that did show thickened gallbladder wall and sludge within the lumen of the gallbladder. Patient did receive IV fluids. Patient did have a digoxin level performed and came back at 2.74. Patient is poor historian and unable to get adequate history from her so history is primarily to the emergency room physician. [] Past Medical History Past Medical History (Chronic Problems): Chronic Problems (Last Reviewed 12/14/17 @ 13:10 by Marylu Howell NP-C) ABDULLAHI (obstructive sleep apnea) (Chronic) Tobacco dependence due to cigarettes (Chronic) Non-compliance (Chronic) Hypersomnia (Chronic) Anemia (Chronic) Normocytic HTN (hypertension) (Chronic) Morbid obesity with BMI of 40.0-44.9, adult (Chronic) COPD (chronic obstructive pulmonary disease) (Chronic) Chronic pain (Chronic) Chronic atrial fibrillation (Chronic) Chronic hypoxemic respiratory failure (Chronic) non-compliant with oxygen Hyperlipemia (Chronic) Type 2 diabetes mellitus (Chronic) uncontrolled GERD (gastroesophageal reflux disease) (Chronic) Anxiety (Chronic) Insomnia (Chronic) Medical History: Medical History (Last Reviewed 01/14/18 @ 17:16 by All Karimi DO) Hypersomnia (Chronic) G47.10 Anemia (Chronic) D64.9 Normocytic HTN (hypertension) (Chronic) I10 Morbid obesity with BMI of 40.0-44.9, adult (Chronic) E66.01, Z68.41 COPD (chronic obstructive pulmonary disease) (Chronic) J44.9 Chronic pain (Chronic) G89.29 Chronic atrial fibrillation (Chronic) I48.2 Chronic hypoxemic respiratory failure (Chronic) J96.11 non-compliant with oxygen Hyperlipemia (Chronic) E78.5 Type 2 diabetes mellitus (Chronic) E11.9 uncontrolled GERD (gastroesophageal reflux disease) (Chronic) K21.9 Anxiety (Chronic) F41.9 Insomnia (Chronic) G47.00 Osteoporosis M81.0 Cardiomyopathy (Ruled-out) I42.9 EF in Oct 2015 45-50 Left ankle pain (Inactive) M25.572 Non-compliance (Inactive) Z91.19 withn follow up with pulmonary Allergies venom-honey bee [bee venom (honey bee)] Allergy (Verified 12/25/17 13:04) Swelling levofloxacin [From Levaquin] Adverse Reaction (Verified 12/25/17 13:04) Nausea oxycodone HCl [From Percocet] Adverse Reaction (Verified 12/25/17 13:04) Nausea Penicillins Adverse Reaction (Verified 12/25/17 13:04) Nausea/Vom/Diarrhea Home Medications: Ambulatory Orders Medication Instructions Recorded Albuterol Aerosols [Ventolin 2.5 mg INHALATION Q4H PRN PRN 05/12/17 Aerosols] Atorvastatin Calcium [Lipitor] 40 mg PO QHS 05/12/17 Budesonide/Formoterol 160/4.5 2 puff INHALATION BID 05/12/17 [Symbicort 160/4.5 Mcg Inhaler (SP)] Bupropion HCl [Bupropion HCl Sr] 150 mg PO BID 05/12/17 Buspirone HCl 10 mg PO TID 05/12/17 Famotidine [Pepcid] 20 mg PO BID 05/12/17 Glucagon,Human Recombinant 1 mg IM PRN PRN 05/12/17 [Glucagon Emergency Kit] Ipratropium/Albuterol Sulfate 3 ml INHALATION Q6H PRN 05/12/17 [Duoneb] Propranolol HCl [Inderal (Beta 10 mg PO BID 05/12/17 Rubén)] Sennosides/Docusate Sodium 2 tab PO DAILY PRN PRN 05/12/17 [Senna-Docusate Sodium Tablet] Mag Hydrox/Al Hydrox/Simeth 30 ml PO Q6H PRN PRN 08/11/17 [Mylanta II] docusate sodium 100 mg capsule 100 mg PO QHS 09/01/17 Rivaroxaban [Xarelto] 20 mg PO DAILY #0 11/03/17 Calcium Carbonate [Tums] 500 mg PO Q6H PRN PRN 11/20/17 Insulin Lispro [Humalog KwikPen] See Protocol SUBCUT 4X/DAYCM 11/24/17 insuln.pen Benzonatate [Tessalon Perle] 100 mg PO TID PRN PRN 12/23/17 Bisacodyl [Dulcolax] 10 mg RECTAL DAILY 12/23/17 Duloxetine HCl 60 mg PO DAILY 12/23/17 Furosemide [Lasix] 40 mg PO BIDLX 12/23/17 Gabapentin [Neurontin] 100 mg PO TIDCM 12/23/17 Guaifenesin [Mucinex] 1,200 mg PO BID PRN 12/23/17 Hydrocodone/Acetaminophen 1 each PO Q6H PRN 12/23/17 [Hydrocodone-Acetamin 5-325 mg] Loperamide [Imodium] 2 mg PO PRN PRN 12/23/17 Polyethylene Glycol 3350 [Miralax] 17 gm PO DAILY 12/23/17 Acetaminophen 650 mg PO PRN PRN 12/25/17 Diltiazem HCl [Diltiazem 12Hr ER] 120 mg PO BID 12/25/17 Insulin Glargine,Hum.rec.anlog 20 unit SQ QHS 12/25/17 [Basaglar Kwikpen U-100] Magnesium Hydroxide [Milk of 30 ml PO DAILY 12/25/17 Magnesia] Ondansetron HCl [Zofran] 4 mg PO Q6H PRN PRN 12/25/17 Digoxin 250 mcg PO DAILY #0 12/28/17 Lactobacillus Acidophilus 1 cap PO DAILY 01/14/18 [Acidophilus] Lactose-Reduced Food [Boost Breeze] 237 ml PO TID 01/14/18 Surgical History: Surgical History (Last Reviewed 01/14/18 @ 17:16 by All Karimi DO) Cataract extraction status Z98.49 History of lumbar surgery Z98.890 History of tonsillectomy and adenoidectomy Z98.890 History of total hysterectomy Z90.710 Surgical History: hysterectomy, tonsillectomy, - - Lumbar surgery. Psychiatric History: Anxiety, Depression BEVERAGE HOST History: No pertinent BEVERAGE HOST history Smoking Status: Current every day smoker Tobacco Use: Non-smoker - *Family History Maternal Family History: Family History (Last Reviewed 01/14/18 @ 17:16 by All Karimi DO) Sister Arthritis Diabetes Father Cancer Aunt Diabetes History Items: - - She reports that she is unaware of what her mother's health history was like Paternal Family History: Family History (Last Reviewed 01/14/18 @ 17:16 by All Karimi DO) Sister Arthritis Diabetes Father Cancer Aunt Diabetes History Items: Cancer, - - father with throat cancer. Sibling Family History: Family History (Last Reviewed 01/14/18 @ 17:16 by All Karimi DO) Sister Arthritis Diabetes Father Cancer Aunt Diabetes History Items: Asthma, COPD, Hypertension Review of Systems Constitutional: Reports: Anorexia. Denies: Chills, Fever Eyes: Denies: Blurred vision, Double vision HEENT: Denies: Head Aches, Sinus Congestion, Sinus Drainage Cardiovascular: Denies: Chest Pain, Palpitations Respiratory: Reports: Cough, Shortness of Breath Gastrointestinal: Reports: Abdominal Pain, Nausea. Denies: Diarrhea, Vomiting Genitourinary: Denies: Dysuria Musculoskeletal: Denies: Joint Pain, Joint Tenderness Skin: Denies: Rash, Wounds Neurological: Denies: Balance problems, Blurred vision, Double vision, Focal weakness Psychiatric: Denies: Anxiety, Depression Hematologic/ Lymphatic: Denies: Easy Bruising, Easy Bleeding, Hx of blood clot Comment: A full point review of system is otherwise negative except for as mentioned above and in the HPI. VTE Information - Inpt Only VTE Present on Admission: No VTE Pharm Prophylaxis ordered?: Yes Patient Problems: Active and Suspected Problems (Last Reviewed 12/14/17 @ 13:10 by FRANKLIN Philippe) Bradycardia (Acute) Digoxin toxicity (Acute) - Physical Exam General: Alert, No apparent distress, - - Groggy HEENT: Atraumatic, Normocephalic Oral: No Gingival or Mucosal Lesions/ Ulcerations, Dry Mucosa Neck: No Nodes, Thyroid Normal Size and Texture Lungs: Clear to auscultation, No rhonchi, No wheeze, Diminished Cardiovascular: Regular rate, Regular Rhythm, Normal S1, Normal S2, No murmurs Abdomen: Bowel Sounds Present, Soft, Non Tender, Non-Distended, No Hepato-splenomegaly, Obese Extremities: No clubbing, No cyanosis, No edema, No Calf Tenderness Skin: No rashes, No breakdown Musculoskeletal: No Tenderness to Palpation of Joints or Extremities, No Muscle Wasting Neurological: Sensory exam intact to light touch and pain, - - No clonus Psych/Mental Status: Normal Affect, Appropriate Vital Signs Temp Pulse Resp BP Pulse Ox 36.9 C 53 L 18 89/51 L 94 01/14/18 16:03 01/14/18 16:46 01/14/18 16:46 01/14/18 16:46 01/14/18 16:46 Oxygen Flow Rate (L/min) 5 Oxygen Delivery Method Nasal Cannula Weight: 89.5 kg Body Mass Index (BMI) 37.3 Finger Stick Blood Glucose 364 Laboratory Tests Past 24 Hrs 01/14/18 01/14/18 01/14/18 11:50 11:50 11:50 WBC 8.3 RBC 3.94 L Hgb 10.9 L Hct 34.7 L MCV 88.1 MCH 27.7 MCHC 31.4 L RDW 18.7 H RDW Differential 58.7 H Plt Count 223 MPV 11.3 Immature Gran % (Auto) 0.200 Neut % (Auto) 60.7 Lymph % (Auto) 25.0 [place] % (Auto) 10.4 H Eos % (Auto) 3.5 Baso % (Auto) 0.2 Absolute Neuts (auto) 5.1 Absolute Lymphs (auto) 2.08 Total Counted Not Reportable PT 18.9 H INR 1.6 APTT 34.3 Specimen Type Sample Site pH Bicarbonate Actual POC Total CO2 Base Excess O2 Saturation O2 % ABG pCO2 ABG pO2 Dao Test O2 Delivery Device Blood Gas Notified Whom Blood Gas Notified Time Sodium 140 Potassium 3.2 L Chloride 104 Carbon Dioxide 29.0 Anion Gap 7 BUN 17 Creatinine 0.88 Estim Creat Clear Calc 50.02 Est GFR (MDRD) Af Amer 84 Est GFR (MDRD) Non-Af 70 BUN/Creatinine Ratio 19.4 Glucose 155 H Lactic Acid Calcium 8.3 L Total Bilirubin 0.70 AST 14 L ALT 19 Alkaline Phosphatase 110 Troponin I < 0.015 Total Protein 6.3 L Albumin 2.5 L Globulin 3.8 Albumin/Globulin Ratio 0.7 L Lipase 33 L Urine Color Urine Clarity Urine pH Ur Specific [place] Urine Protein Urine Glucose (UA) Urine Ketones Urine Occult Blood Urine Nitrite Urine Bilirubin Urine Urobilinogen Ur Leukocyte Esterase Urine RBC Urine WBC Ur Squamous Epith Cells Urine Bacteria Urine Mucus Digoxin 01/14/18 01/14/18 01/14/18 11:50 11:50 12:20 WBC RBC Hgb Hct MCV MCH MCHC RDW RDW Differential Plt Count MPV Immature Gran % (Auto) Neut % (Auto) Lymph % (Auto) [place] % (Auto) Eos % (Auto) Baso % (Auto) Absolute Neuts (auto) Absolute Lymphs (auto) Total Counted PT INR APTT Specimen Type ART Sample Site L Brachial pH 7.52 H Bicarbonate Actual 29.1 H POC Total CO2 30 Base Excess 6 H O2 Saturation 89 L O2 % 50 ABG pCO2 35.9 ABG pO2 50 L Dao Test NA O2 Delivery Device Vent Mask Blood Gas Notified Whom ED MD Blood Gas Notified Time 1225 Sodium Potassium Chloride Carbon Dioxide Anion Gap BUN Creatinine Estim Creat Clear Calc Est GFR (MDRD) Af Amer Est GFR (MDRD) Non-Af BUN/Creatinine Ratio Glucose Lactic Acid 0.7 Calcium Total Bilirubin AST ALT Alkaline Phosphatase Troponin I Total Protein Albumin Globulin Albumin/Globulin Ratio Lipase Urine Color Urine Clarity Urine pH Ur Specific [place] Urine Protein Urine Glucose (UA) Urine Ketones Urine Occult Blood Urine Nitrite Urine Bilirubin Urine Urobilinogen Ur Leukocyte Esterase Urine RBC Urine WBC Ur Squamous Epith Cells Urine Bacteria Urine Mucus Digoxin 2.74 H* 01/14/18 13:35 WBC RBC Hgb Hct MCV MCH MCHC RDW RDW Differential Plt Count MPV Immature Gran % (Auto) Neut % (Auto) Lymph % (Auto) [place] % (Auto) Eos % (Auto) Baso % (Auto) Absolute Neuts (auto) Absolute Lymphs (auto) Total Counted PT INR APTT Specimen Type Sample Site pH Bicarbonate Actual POC Total CO2 Base Excess O2 Saturation O2 % ABG pCO2 ABG pO2 Dao Test O2 Delivery Device Blood Gas Notified Whom Blood Gas Notified Time Sodium Potassium Chloride Carbon Dioxide Anion Gap BUN Creatinine Estim Creat Clear Calc Est GFR (MDRD) Af Amer Est GFR (MDRD) Non-Af BUN/Creatinine Ratio Glucose Lactic Acid Calcium Total Bilirubin AST ALT Alkaline Phosphatase Troponin I Total Protein Albumin Globulin Albumin/Globulin Ratio Lipase Urine Color Yellow Urine Clarity Sl. Cloudy Urine pH 5.0 Ur Specific [place] 1.025 Urine Protein 30 H Urine Glucose (UA) Normal Urine Ketones 5 H Urine Occult Blood Negative Urine Nitrite Negative Urine Bilirubin Negative Urine Urobilinogen Normal Ur Leukocyte Esterase 25 H Urine RBC 0 SEEN Urine WBC 0-5 SEEN Ur Squamous Epith Cells 0-5 SEEN Urine Bacteria 0 SEEN Urine Mucus 0 SEEN Digoxin Assessment/Plan All Active Problems (Last Reviewed 12/14/17 @ 13:10 by Marylu Howell, THANG-C) Bradycardia (Acute) Digoxin toxicity (Acute) Abdominal pain (Acute) Acute encephalopathy (Acute) Acute kidney injury (Acute) HCAP (healthcare-associated pneumonia) (Acute) Acute and chronic respiratory failure with hypoxia (Resolved) Acute bronchitis due to human metapneumovirus (Resolved) Atrial fibrillation with RVR (Resolved) COPD with acute exacerbation (Resolved) Gram-negative pneumonia (Resolved) Syncope (Resolved) Cardiomyopathy (Ruled-out) 1. Bradycardia Likely due to combination of Digoxin, diltiazem and propranolol Hold the digoxin and patient will continue with diltiazem propranolol but with hold parameters for a heart rate less than 60 and a systolic blood pressure less than 90 2. Digoxin toxicity Patient had this earlier this month where her 3.5. Today at 2.7. Per the discharge summary from the , patient was to hold digoxin and memory care doctor cardiology Previous to last admission, patient was on 250 mcg of digoxin daily and that is the dose that she is on currently. As previously mentioned, would continue to hold digoxin and have the patient follow-up with cardiology in regards to whether or not that he should be resumed or not 3. Hypokalemia Replace Recheck and check magnesium level 4. Chronic abdominal pain Ultrasound today showed thickened gallbladder wall and sludge within the lumen of the gallbladder. No clinical suspicion for acute cholecystitis at this time Patient will need to follow-up with general surgery as outpatient to see if this will need of management. 5. Chronic respiratory failure CT scan report was concerning for atelectasis versus infiltrate. Medically do not feel that the patient has pneumonia so we will not order antibiotics. Monitor Check ambulatory pulse ox prior to discharge 6. Chronic atrial fibrillation Continue with Xarelto Digoxin on hold Hold parameters for propranolol and diltiazem 7. DVT prophylaxis with Xarelto 8. Diabetes mellitus type 2 continue with Lantus and sliding scale insulin Code Visit Inpatient E&M: 59573 Init Hosp L3
--- NOTE | 2018-01-14 17:18 | HP.PCM_ITS ---
Problem List (1) Bradycardia Status: Acute (2) Digoxin toxicity Status: Acute Qualifiers: Encounter type: initial encounter Injury intent: accidental or unintentional Qualified Code(s): T46.0X1A - Poisoning by cardiac-stimulant glycosides and drugs of similar action, accidental (unintentional), initial encounter History of Present Illness Date of Admission: 01/14/18 Chief Complaint: abdominal pain. shortness of breath. The patient is a 62 year old F sent from her assisted with pain and cough. Patient has had abdominal pain for several months now and was scheduled to see Dr. Sal today. They attempted to get an IV in her give her fluids but patient was unable to get IVs this patient was sent to the emergency room. Patient was noted to have a blood pressure of 90/40 and patient was also noted to be bradycardic with a heart rate in the 40s. Patient was hypoxic into the 80s. Patient underwent a CAT scan of her chest that showed some infiltrate versus atelectasis in the bases. She did undergo an ultrasound of her gallbladder that did show thickened gallbladder wall and sludge within the lumen of the gallbladder. Patient did receive IV fluids. Patient did have a digoxin level performed and came back at 2.74. Patient is poor historian and unable to get adequate history from her so history is primarily to the emergency room physician. [] Past Medical History Past Medical History (Chronic Problems): Chronic Problems (Last Reviewed 12/14/17 @ 13:10 by Marylu Howell NP-C) ABDULLAHI (obstructive sleep apnea) (Chronic) Tobacco dependence due to cigarettes (Chronic) Non-compliance (Chronic) Hypersomnia (Chronic) Anemia (Chronic) Normocytic HTN (hypertension) (Chronic) Morbid obesity with BMI of 40.0-44.9, adult (Chronic) COPD (chronic obstructive pulmonary disease) (Chronic) Chronic pain (Chronic) Chronic atrial fibrillation (Chronic) Chronic hypoxemic respiratory failure (Chronic) non-compliant with oxygen Hyperlipemia (Chronic) Type 2 diabetes mellitus (Chronic) uncontrolled GERD (gastroesophageal reflux disease) (Chronic) Anxiety (Chronic) Insomnia (Chronic) Medical History: Medical History (Last Reviewed 01/14/18 @ 17:16 by All Karimi DO) Hypersomnia (Chronic) G47.10 Anemia (Chronic) D64.9 Normocytic HTN (hypertension) (Chronic) I10 Morbid obesity with BMI of 40.0-44.9, adult (Chronic) E66.01, Z68.41 COPD (chronic obstructive pulmonary disease) (Chronic) J44.9 Chronic pain (Chronic) G89.29 Chronic atrial fibrillation (Chronic) I48.2 Chronic hypoxemic respiratory failure (Chronic) J96.11 non-compliant with oxygen Hyperlipemia (Chronic) E78.5 Type 2 diabetes mellitus (Chronic) E11.9 uncontrolled GERD (gastroesophageal reflux disease) (Chronic) K21.9 Anxiety (Chronic) F41.9 Insomnia (Chronic) G47.00 Osteoporosis M81.0 Cardiomyopathy (Ruled-out) I42.9 EF in Oct 2015 45-50 Left ankle pain (Inactive) M25.572 Non-compliance (Inactive) Z91.19 withn follow up with pulmonary Allergies venom-honey bee [bee venom (honey bee)] Allergy (Verified 12/25/17 13:04) Swelling levofloxacin [From Levaquin] Adverse Reaction (Verified 12/25/17 13:04) Nausea oxycodone HCl [From Percocet] Adverse Reaction (Verified 12/25/17 13:04) Nausea Penicillins Adverse Reaction (Verified 12/25/17 13:04) Nausea/Vom/Diarrhea Home Medications: Ambulatory Orders Medication Instructions Recorded Albuterol Aerosols [Ventolin 2.5 mg INHALATION Q4H PRN PRN 05/12/17 Aerosols] Atorvastatin Calcium [Lipitor] 40 mg PO QHS 05/12/17 Budesonide/Formoterol 160/4.5 2 puff INHALATION BID 05/12/17 [Symbicort 160/4.5 Mcg Inhaler (SP)] Bupropion HCl [Bupropion HCl Sr] 150 mg PO BID 05/12/17 Buspirone HCl 10 mg PO TID 05/12/17 Famotidine [Pepcid] 20 mg PO BID 05/12/17 Glucagon,Human Recombinant 1 mg IM PRN PRN 05/12/17 [Glucagon Emergency Kit] Ipratropium/Albuterol Sulfate 3 ml INHALATION Q6H PRN 05/12/17 [Duoneb] Propranolol HCl [Inderal (Beta 10 mg PO BID 05/12/17 Rubén)] Sennosides/Docusate Sodium 2 tab PO DAILY PRN PRN 05/12/17 [Senna-Docusate Sodium Tablet] Mag Hydrox/Al Hydrox/Simeth 30 ml PO Q6H PRN PRN 08/11/17 [Mylanta II] docusate sodium 100 mg capsule 100 mg PO QHS 09/01/17 Rivaroxaban [Xarelto] 20 mg PO DAILY #0 11/03/17 Calcium Carbonate [Tums] 500 mg PO Q6H PRN PRN 11/20/17 Insulin Lispro [Humalog KwikPen] See Protocol SUBCUT 4X/DAYCM 11/24/17 insuln.pen Benzonatate [Tessalon Perle] 100 mg PO TID PRN PRN 12/23/17 Bisacodyl [Dulcolax] 10 mg RECTAL DAILY 12/23/17 Duloxetine HCl 60 mg PO DAILY 12/23/17 Furosemide [Lasix] 40 mg PO BIDLX 12/23/17 Gabapentin [Neurontin] 100 mg PO TIDCM 12/23/17 Guaifenesin [Mucinex] 1,200 mg PO BID PRN 12/23/17 Hydrocodone/Acetaminophen 1 each PO Q6H PRN 12/23/17 [Hydrocodone-Acetamin 5-325 mg] Loperamide [Imodium] 2 mg PO PRN PRN 12/23/17 Polyethylene Glycol 3350 [Miralax] 17 gm PO DAILY 12/23/17 Acetaminophen 650 mg PO PRN PRN 12/25/17 Diltiazem HCl [Diltiazem 12Hr ER] 120 mg PO BID 12/25/17 Insulin Glargine,Hum.rec.anlog 20 unit SQ QHS 12/25/17 [Basaglar Kwikpen U-100] Magnesium Hydroxide [Milk of 30 ml PO DAILY 12/25/17 Magnesia] Ondansetron HCl [Zofran] 4 mg PO Q6H PRN PRN 12/25/17 Digoxin 250 mcg PO DAILY #0 12/28/17 Lactobacillus Acidophilus 1 cap PO DAILY 01/14/18 [Acidophilus] Lactose-Reduced Food [Boost Breeze] 237 ml PO TID 01/14/18 Surgical History: Surgical History (Last Reviewed 01/14/18 @ 17:16 by All Karimi DO) Cataract extraction status Z98.49 History of lumbar surgery Z98.890 History of tonsillectomy and adenoidectomy Z98.890 History of total hysterectomy Z90.710 Surgical History: hysterectomy, tonsillectomy, - - Lumbar surgery. Psychiatric History: Anxiety, Depression [employer] History: No pertinent [employer] history Smoking Status: Current every day smoker Tobacco Use: Non-smoker - *Family History Maternal Family History: Family History (Last Reviewed 01/14/18 @ 17:16 by All Karimi DO) Sister Arthritis Diabetes Father Cancer Aunt Diabetes History Items: - - She reports that she is unaware of what her mother's health history was like Paternal Family History: Family History (Last Reviewed 01/14/18 @ 17:16 by All Karimi DO) Sister Arthritis Diabetes Father Cancer Aunt Diabetes History Items: Cancer, - - father with throat cancer. Sibling Family History: Family History (Last Reviewed 01/14/18 @ 17:16 by All Karimi DO) Sister Arthritis Diabetes Father Cancer Aunt Diabetes History Items: Asthma, COPD, Hypertension Review of Systems Constitutional: Reports: Anorexia. Denies: Chills, Fever Eyes: Denies: Blurred vision, Double vision HEENT: Denies: Head Aches, Sinus Congestion, Sinus Drainage Cardiovascular: Denies: Chest Pain, Palpitations Respiratory: Reports: Cough, Shortness of Breath Gastrointestinal: Reports: Abdominal Pain, Nausea. Denies: Diarrhea, Vomiting Genitourinary: Denies: Dysuria Musculoskeletal: Denies: Joint Pain, Joint Tenderness Skin: Denies: Rash, Wounds Neurological: Denies: Balance problems, Blurred vision, Double vision, Focal weakness Psychiatric: Denies: Anxiety, Depression Hematologic/ Lymphatic: Denies: Easy Bruising, Easy Bleeding, Hx of blood clot Comment: A full point review of system is otherwise negative except for as mentioned above and in the HPI. VTE Information - Inpt Only VTE Present on Admission: No VTE Pharm Prophylaxis ordered?: Yes Patient Problems: Active and Suspected Problems (Last Reviewed 12/14/17 @ 13:10 by FRANKLIN Philippe) Bradycardia (Acute) Digoxin toxicity (Acute) - Physical Exam General: Alert, No apparent distress, - - Groggy HEENT: Atraumatic, Normocephalic Oral: No Gingival or Mucosal Lesions/ Ulcerations, Dry Mucosa Neck: No Nodes, Thyroid Normal Size and Texture Lungs: Clear to auscultation, No rhonchi, No wheeze, Diminished Cardiovascular: Regular rate, Regular Rhythm, Normal S1, Normal S2, No murmurs Abdomen: Bowel Sounds Present, Soft, Non Tender, Non-Distended, No Hepato- splenomegaly, Obese Extremities: No clubbing, No cyanosis, No edema, No Calf Tenderness Skin: No rashes, No breakdown Musculoskeletal: No Tenderness to Palpation of Joints or Extremities, No Muscle Wasting Neurological: Sensory exam intact to light touch and pain, - - No clonus Psych/Mental Status: Normal Affect, Appropriate Vital Signs Temp Pulse Resp BP Pulse Ox 36.9 C 53 L 18 89/51 L 94 01/14/18 16:03 01/14/18 16:46 01/14/18 16:46 01/14/18 16:46 01/14/18 16:46 Oxygen Flow Rate (L/min) 5 Oxygen Delivery Method Nasal Cannula Weight: 89.5 kg Body Mass Index (BMI) 37.3 Finger Stick Blood Glucose 364 Laboratory Tests Past 24 Hrs 01/14/18 01/14/18 01/14/18 11:50 11:50 11:50 WBC 8.3 RBC 3.94 L Hgb 10.9 L Hct 34.7 L MCV 88.1 MCH 27.7 MCHC 31.4 L RDW 18.7 H RDW Differential 58.7 H Plt Count 223 MPV 11.3 Immature Gran % (Auto) 0.200 Neut % (Auto) 60.7 Lymph % (Auto) 25.0 Hayes % (Auto) 10.4 H Eos % (Auto) 3.5 Baso % (Auto) 0.2 Absolute Neuts (auto) 5.1 Absolute Lymphs (auto) 2.08 Total Counted Not Reportable PT 18.9 H INR 1.6 APTT 34.3 Specimen Type Sample Site pH Bicarbonate Actual POC Total CO2 Base Excess O2 Saturation O2 % ABG pCO2 ABG pO2 Dao Test O2 Delivery Device Blood Gas Notified Whom Blood Gas Notified Time Sodium 140 Potassium 3.2 L Chloride 104 Carbon Dioxide 29.0 Anion Gap 7 BUN 17 Creatinine 0.88 Estim Creat Clear Calc 50.02 Est GFR (MDRD) Af Amer 84 Est GFR (MDRD) Non-Af 70 BUN/Creatinine Ratio 19.4 Glucose 155 H Lactic Acid Calcium 8.3 L Total Bilirubin 0.70 AST 14 L ALT 19 Alkaline Phosphatase 110 Troponin I < 0.015 Total Protein 6.3 L Albumin 2.5 L Globulin 3.8 Albumin/Globulin Ratio 0.7 L Lipase 33 L Urine Color Urine Clarity Urine pH Ur Specific [place] Urine Protein Urine Glucose (UA) Urine Ketones Urine Occult Blood Urine Nitrite Urine Bilirubin Urine Urobilinogen Ur Leukocyte Esterase Urine RBC Urine WBC Ur Squamous Epith Cells Urine Bacteria Urine Mucus Digoxin 01/14/18 01/14/18 01/14/18 11:50 11:50 12:20 WBC RBC Hgb Hct MCV MCH MCHC RDW RDW Differential Plt Count MPV Immature Gran % (Auto) Neut % (Auto) Lymph % (Auto) Hayes % (Auto) Eos % (Auto) Baso % (Auto) Absolute Neuts (auto) Absolute Lymphs (auto) Total Counted PT INR APTT Specimen Type ART Sample Site L Brachial pH 7.52 H Bicarbonate Actual 29.1 H POC Total CO2 30 Base Excess 6 H O2 Saturation 89 L O2 % 50 ABG pCO2 35.9 ABG pO2 50 L Dao Test NA O2 Delivery Device Vent Mask Blood Gas Notified Whom ED MD Blood Gas Notified Time 1225 Sodium Potassium Chloride Carbon Dioxide Anion Gap BUN Creatinine Estim Creat Clear Calc Est GFR (MDRD) Af Amer Est GFR (MDRD) Non-Af BUN/Creatinine Ratio Glucose Lactic Acid 0.7 Calcium Total Bilirubin AST ALT Alkaline Phosphatase Troponin I Total Protein Albumin Globulin Albumin/Globulin Ratio Lipase Urine Color Urine Clarity Urine pH Ur Specific [place] Urine Protein Urine Glucose (UA) Urine Ketones Urine Occult Blood Urine Nitrite Urine Bilirubin Urine Urobilinogen Ur Leukocyte Esterase Urine RBC Urine WBC Ur Squamous Epith Cells Urine Bacteria Urine Mucus Digoxin 2.74 H* 01/14/18 13:35 WBC RBC Hgb Hct MCV MCH MCHC RDW RDW Differential Plt Count MPV Immature Gran % (Auto) Neut % (Auto) Lymph % (Auto) Hayes % (Auto) Eos % (Auto) Baso % (Auto) Absolute Neuts (auto) Absolute Lymphs (auto) Total Counted PT INR APTT Specimen Type Sample Site pH Bicarbonate Actual POC Total CO2 Base Excess O2 Saturation O2 % ABG pCO2 ABG pO2 Dao Test O2 Delivery Device Blood Gas Notified Whom Blood Gas Notified Time Sodium Potassium Chloride Carbon Dioxide Anion Gap BUN Creatinine Estim Creat Clear Calc Est GFR (MDRD) Af Amer Est GFR (MDRD) Non-Af BUN/Creatinine Ratio Glucose Lactic Acid Calcium Total Bilirubin AST ALT Alkaline Phosphatase Troponin I Total Protein Albumin Globulin Albumin/Globulin Ratio Lipase Urine Color Yellow Urine Clarity Sl. Cloudy Urine pH 5.0 Ur Specific [place] 1.025 Urine Protein 30 H Urine Glucose (UA) Normal Urine Ketones 5 H Urine Occult Blood Negative Urine Nitrite Negative Urine Bilirubin Negative Urine Urobilinogen Normal Ur Leukocyte Esterase 25 H Urine RBC 0 SEEN Urine WBC 0-5 SEEN Ur Squamous Epith Cells 0-5 SEEN Urine Bacteria 0 SEEN Urine Mucus 0 SEEN Digoxin Assessment/Plan All Active Problems (Last Reviewed 12/14/17 @ 13:10 by Marylu Howell, THANG-C) Bradycardia (Acute) Digoxin toxicity (Acute) Abdominal pain (Acute) Acute encephalopathy (Acute) Acute kidney injury (Acute) HCAP (healthcare-associated pneumonia) (Acute) Acute and chronic respiratory failure with hypoxia (Resolved) Acute bronchitis due to human metapneumovirus (Resolved) Atrial fibrillation with RVR (Resolved) COPD with acute exacerbation (Resolved) Gram-negative pneumonia (Resolved) Syncope (Resolved) Cardiomyopathy (Ruled-out) 1. Bradycardia * Likely due to combination of Digoxin, diltiazem and propranolol * Hold the digoxin and patient will continue with diltiazem propranolol but with hold parameters for a heart rate less than 60 and a systolic blood pressure less than 90 2. Digoxin toxicity * Patient had this earlier this month where her 3.5. Today at 2.7. * Per the discharge summary from the , patient was to hold digoxin and memory care doctor cardiology * Previous to last admission, patient was on 250 mcg of digoxin daily and that is the dose that she is on currently. * As previously mentioned, would continue to hold digoxin and have the patient follow-up with cardiology in regards to whether or not that he should be resumed or not 3. Hypokalemia * Replace * Recheck and check magnesium level 4. Chronic abdominal pain * Ultrasound today showed thickened gallbladder wall and sludge within the lumen of the gallbladder. * No clinical suspicion for acute cholecystitis at this time * Patient will need to follow-up with general surgery as outpatient to see if this will need of management. 5. Chronic respiratory failure * CT scan report was concerning for atelectasis versus infiltrate. * Medically do not feel that the patient has pneumonia so we will not order antibiotics. * Monitor * Check ambulatory pulse ox prior to discharge 6. Chronic atrial fibrillation * Continue with Xarelto * Digoxin on hold * Hold parameters for propranolol and diltiazem 7. DVT prophylaxis with Xarelto 8. Diabetes mellitus type 2 * continue with Lantus and sliding scale insulin Code Visit Inpatient E&M: 60732 Init Hosp L3
[2018-01-14 18:21] LABS: Bedside Glucose 191 mg/dL (70-110)
[2018-01-14] MEDS: Acetaminophen 325 MG Tablet 650 MG PO (18:52)
[2018-01-14] MEDS: Insulin Lispro 100 UNIT/ML INSULN.PEN SC (18:53)
--- NOTE | 2018-01-14 18:56 | NURSING ---
Reviewed and agreed on all charting with Rubén Chicas RN
[2018-01-14] MEDS: Atorvastatin Calcium 40 MG Tablet PO (21:34)
[2018-01-14] MEDS: busPIRone 5 MG Tablet 10 MG PO (21:34)
[2018-01-14] MEDS: Docusate Sodium 100 MG Capsule PO (21:34)
[2018-01-14] MEDS: buPROPion (SR) 150 MG Tablet.SA PO (21:34)
[2018-01-14] MEDS: Famotidine 20 MG Tablet PO (21:34)
[2018-01-14 21:51] LABS: Bedside Glucose 136 mg/dL (70-110)
[2018-01-15] VITALS (14 sets, daily range): BP systolic 96–122; BP diastolic 40–53; PULSE 47–72; RESP 16–20; TEMP 36.3–36.6; O2SAT 91–94
[2018-01-15] MEDS: busPIRone 5 MG Tablet 10 MG PO ×3 (05:55→21:27)
[2018-01-15 06:45] LABS: Anion Gap 8 (5-15); BUN 11 mg/dL (7-18); BUN/Creat Ratio 20.4 RATIO (10-20); Calcium,Total 7.8 mg/dL (8.5-10.1); Chloride 110 mmol/L (98-107); Creatinine, Serum 0.54 mg/dL (0.55-1.02); EST Glomerular Filtration Rate 122 mL/min (>60); Est Glom Filt Rate - Afr Amer 147 mL/min (>60); Estimated Creatinine Clearance 81.51 ml/min; Glucose 81 mg/dL (74-106); Magnesium 1.7 mg/dL (1.6-2.6); Potassium 3.2 mmol/L (3.5-5.1); Sodium Level 145 mmol/L (136-145)
[2018-01-15] MEDS: Budesonide Respules 0.5 MG/2 ML AMPUL.NEB. INHALATION ×2 (06:48→20:48)
[2018-01-15] MEDS: Albuterol 2.5 MG/3 ML VIAL.NEB. INHALATION ×3 (06:48→20:48)
--- NOTE | 2018-01-15 08:03 | EKG12_ITS ---
Test Reason : Blood Pressure : / mmHG Vent. Rate : 057 BPM Atrial Rate : 147 BPM P-R Int : 000 ms QRS Dur : 102 ms QT Int : 400 ms P-R-T Axes : 000 061 267 degrees QTc Int : 389 ms Atrial fibrillation with slow ventricular response Incomplete right bundle branch block Nonspecific ST and T wave abnormality Abnormal ECG Confirmed by SPENCER DELGADO, FLORENTINO ([id number]), state editor DIANA GALVEZ ([id number] on 01/19/2018 3:46:47 PM Referred By: RASHAAD Confirmed By:FLORENTINO PALMER MD
[2018-01-15] MEDS: Rivaroxaban 20 MG Tablet PO (08:08)
[2018-01-15] MEDS: Gabapentin 100 MG Capsule PO ×3 (08:08→16:03)
[2018-01-15] MEDS: Acetaminophen 325 MG Tablet 650 MG PO (08:09)
[2018-01-15 08:26] LABS: Bedside Glucose 72 mg/dL (70-110)
[2018-01-15] MEDS: dilTIAZem 60 MG CAP.SR.12H 120 MG PO (09:05)
[2018-01-15] MEDS: DULoxetine Hcl 60 MG Capsule PO (09:05)
[2018-01-15] MEDS: buPROPion (SR) 150 MG Tablet.SA PO ×2 (09:06→21:30)
[2018-01-15] MEDS: Famotidine 20 MG Tablet PO ×2 (09:06→21:28)
--- NOTE | 2018-01-15 10:06 | CASEMGMT ---
Addendum entered by Briana Barcenas 01/15/18 12:00: Patient will likely not be d/c today. SW put green sheet on chart with transport forms. SW also called Trudy at [facility] and let her know possible d/c over the weekend. Briana CARRASCO Original Note: Patient is from [place]. SW faxed them updates. SW will put a green sheet on chart if patient is not d/c today. Plan: d/c back to [facility] under intermediate level of care. Briana CARRASCO
[2018-01-15] MEDS: Glucerna Shake 120 ML LIQUID PO ×2 (11:22→17:18)
[2018-01-15 11:51] LABS: Bedside Glucose 102 mg/dL (70-110)
--- NOTE | 2018-01-15 13:30 | PN_ITS ---
<Brian Hinojoas - Last Filed: 01/15/18 13:30> Patient Problems: Active and Suspected Problems (Last Reviewed 01/14/18 @ 17:16 by All Karimi DO) Bradycardia (Acute) Digoxin toxicity (Acute) Subjective: Pt remains confused. She cannot tell me where she is from. She cannot tell me if she is on O2 normally. She denies CP. She has a nonproductive cough. No fever/chills. - Physical Exam General: Alert, Cooperative, Confused HEENT: Atraumatic, PERRLA, EOMI, Normocephalic Neck: Supple, No JVD, Negative Carotid Bruits Lungs: Diminished, Rhonchi Cardiovascular: Regular rate, No murmurs Abdomen: Bowel Sounds Present, Soft, Non Tender Extremities: No edema, Capillary Refill Less than 3 Seconds Skin: No rashes, No breakdown Musculoskeletal: No Tenderness to Palpation of Joints or Extremities Neurological: Cranial nerves II-XII grossly intact Psych/Mental Status: Normal Affect, Appropriate Vital Signs Temp Pulse Resp BP Pulse Ox 97.8 F 59 L 18 116/53 L 91 01/15/18 07:53 01/15/18 07:53 01/15/18 07:53 01/15/18 07:53 01/15/18 07:53 Oxygen Flow Rate (L/min) 4 Oxygen Delivery Method Nasal Cannula Weight: 190 lb 11.198 oz Body Mass Index (BMI) 36.0 Finger Stick Blood Glucose 364 Intake and Output for Last 24 Hours 01/13/18 01/14/18 01/15/18 23:59 23:59 23:59 Intake Total 1366 / 1366 725 / 725 Output Total 450 / 450 600 / 600 Balance 916 / 916 125 / 125 Microbiology Past 72 Hours 01/14/18 13:35 Urine Culture - Preliminary Urine Catheter - Catheter Culture exhibits no growth. Laboratory Tests Past 24 Hrs 01/14/18 01/14/18 01/15/18 11:50 13:35 05:50 Sodium 145 Potassium 3.2 L Chloride 110 H Carbon Dioxide 27.0 Anion Gap 8 BUN 11 Creatinine 0.54 L Estim Creat Clear Calc 81.51 Est GFR (MDRD) Af Amer 147 Est GFR (MDRD) Non-Af 122 BUN/Creatinine Ratio 20.4 H Glucose 81 Calcium 7.8 L Magnesium 1.7 B-Natriuretic Peptide Urine Color Yellow Urine Clarity Sl. Cloudy Urine pH 5.0 Ur Specific [place] 1.025 Urine Protein 30 H Urine Glucose (UA) Normal Urine Ketones 5 H Urine Occult Blood Negative Urine Nitrite Negative Urine Bilirubin Negative Urine Urobilinogen Normal Ur Leukocyte Esterase 25 H Urine RBC 0 SEEN Urine WBC 0-5 SEEN Ur Squamous Epith Cells 0-5 SEEN Urine Bacteria 0 SEEN Urine Mucus 0 SEEN Digoxin 2.74 H* 01/15/18 05:50 Sodium Potassium Chloride Carbon Dioxide Anion Gap BUN Creatinine Estim Creat Clear Calc Est GFR (MDRD) Af Amer Est GFR (MDRD) Non-Af BUN/Creatinine Ratio Glucose Calcium Magnesium B-Natriuretic Peptide Pending Urine Color Urine Clarity Urine pH Ur Specific [place] Urine Protein Urine Glucose (UA) Urine Ketones Urine Occult Blood Urine Nitrite Urine Bilirubin Urine Urobilinogen Ur Leukocyte Esterase Urine RBC Urine WBC Ur Squamous Epith Cells Urine Bacteria Urine Mucus Digoxin POC Glucose 01/15/18 01/15/18 01/14/18 11:21 08:06 21:17 POC Glucose 102 72 136 H 01/14/18 18:15 POC Glucose 191 H Medical Necessity - Tobacco Use Smoking Status: Current every day smoker Tobacco Use: Non-smoker Assessment/Plan All Active Problems (Last Reviewed 01/14/18 @ 17:16 by All Karimi DO) Bradycardia (Acute) Digoxin toxicity (Acute) Abdominal pain (Acute) Acute encephalopathy (Acute) Acute kidney injury (Acute) HCAP (healthcare-associated pneumonia) (Acute) Acute and chronic respiratory failure with hypoxia (Resolved) Acute bronchitis due to human metapneumovirus (Resolved) Atrial fibrillation with RVR (Resolved) COPD with acute exacerbation (Resolved) Gram-negative pneumonia (Resolved) Syncope (Resolved) Cardiomyopathy (Ruled-out) 1. Bradycardia 2/2 dig toxicity - 2nd time this year. Cardiology consult. Propranolol held this AM. Still on cardizem. Low K and Mag repleted. 2. COPD with Chronic hypoxic respiratory failure - stable on 4lpm. CXR neg. CTA with infiltrates vs atelectasis. BNP pending. Rhonchi on exam. Continue duonebs. 3. Chronic Afib - as above. On xarelto. 4. T2DM - SSI + Home insulin regimen. 5. Cognitive deficits and unspecified behavioral health issues - permanent SNF resident. Continue home meds. 6. HTN - stable. 7. GERD 8. CAD, hx CM. BB held. Continue lasix. 9. ABDULLAHI - noncompliant. DVT ppx: Xarelto DC planning: Return to SNF when stable. This patient was seen by Brian Hinojosa PA-C under the supervision of Doctor Bonilla. <Radha Bonilla - Last Filed: 01/15/18 16:17> - Physical Exam Vital Signs Temp Pulse Resp BP Pulse Ox 97.8 F 49 L 16 116/53 L 91 01/15/18 07:53 01/15/18 12:46 01/15/18 12:46 01/15/18 07:53 01/15/18 07:53 Oxygen Flow Rate (L/min) 4 Oxygen Delivery Method Nasal Cannula Weight: 86.5 kg Body Mass Index (BMI) 36.0 Finger Stick Blood Glucose 364 Intake and Output for Last 24 Hours 01/13/18 01/14/18 01/15/18 23:59 23:59 23:59 Intake Total 1366 / 1366 725 / 725 Output Total 450 / 450 600 / 600 Balance 916 / 916 125 / 125 Microbiology Past 72 Hours 01/14/18 13:35 Urine Culture - Preliminary Urine Catheter - Catheter Culture exhibits no growth. Laboratory Tests Past 24 Hrs 01/15/18 01/15/18 05:50 05:50 Sodium 145 Potassium 3.2 L Chloride 110 H Carbon Dioxide 27.0 Anion Gap 8 BUN 11 Creatinine 0.54 L Estim Creat Clear Calc 81.51 Est GFR (MDRD) Af Amer 147 Est GFR (MDRD) Non-Af 122 BUN/Creatinine Ratio 20.4 H Glucose 81 Calcium 7.8 L Magnesium 1.7 B-Natriuretic Peptide 185.1 H POC Glucose 01/15/18 01/15/18 01/14/18 11:21 08:06 21:17 POC Glucose 102 72 136 H 01/14/18 18:15 POC Glucose 191 H Assessment/Plan This patient was seen in conjunction with YANG Guerra. I have independently interviewed and examined the patient and reviewed pertinent historical, laboratory, and other data. Please refer to YANG Guerra note for his patient's presentation, findings, and recommendations. I have reviewed and his note and concur with his documentation 62-year-old female with past medical history of chronic hypoxic respiratory failure second to COPD, pulmonary hypertension, history of chronic atrial fibrillation, on digoxin who comes in abdominal pain and shortness of breath. [facility] brought in for complaints of persistent abdominal pain. She was found to be bradycardic with a heart rate in the 40s and hypoxic with respiratory rate in the 80s. CT scan of the chest shows some infiltrate versus atelectasis. She underwent ultrasound of the gallbladder showed thickened gallbladder wall with sludge within the lumen of the gallbladder. Digoxin and Cardizem were held. HR appears to be improved in the 50s and 60s. Physical Exam: Gen:Patient is lethargic, looks in some discomfort, not pale, not jaundiced, well hydrated, 4 L of oxygen CVS:HS I +II, regular, no murmurs RESP: Diminished at lung bases GI: Full, firm, nontender, no palpable organs EXT:No edema ASSESSMENT: 1. Bradycardia due to digoxin toxicity, Cardizem side effects, both medications have been held 2. Chronic respiratory failure 3. Chronic atrial fibrillation 4. Severe COPD 5. Type II DM 6. Hypertension 7. Abdominal pain, likely secondary to biliary colic 8. Nicotine dependence 9. Acute metabolic encephalopathy, multifactorial Plan: General surgery consult Continue to monitor on telemetry off digoxin and Cardizem Cardiology consult Breathing treatments as needed Advised to quit smoking ABG rule out hypercapnia Code Visit Inpatient E&M: 02976 Init Hosp L3
[2018-01-15 13:45] LABS: BNP,B-Type NATRIURETIC PEPTIDE 185.1 pg/mL (0-100)
--- NOTE | 2018-01-15 13:45 | NM_ITS ---
CLINICAL: 62-year-old female with reported history of right upper quadrant abdominal pain. RADIONUCLIDE HEPATOBILIARY SCINTIGRAPHY COMPARISON: Abdominal ultrasound report 01/14/2018 FINDINGS: Following the intravenous administration of 6.0 mCi of 99m Tc Mebrofenin, hepatobiliary images reveal: 1. Relatively prompt and homogeneous radiopharmaceutical concentration is noted by a normal sized liver. No parenchymal defects are identified. 2. Gallbladder activity is identified at 30 minutes post radiopharmaceutical administration. 3. Small intestinal tract is observed at 15 minutes following tracer injection. 4. Washout of the radiopharmaceutical by the hepatic parenchyma appears qualitatively normal. 5. Duodenal-gastric reflux is defined initiating and approximately 30 minutes following tracer injection. The patient was administered a fatty meal (8 ounces Boost). The post fatty meal ingestion gallbladder ejection fraction calculated at 30 minutes following fatty meal administration was noted to be 32.0 % (normal greater than 30%). NM/Hepatobilliary Img w/Pharm Int IMPRESSION: 1. A gallbladder ejection fraction calculated to be greater than 30% following the administration of an ingested fatty meal makes the probability of functional hepatobiliary disease (gallbladder and/or sphincter of Oddi dyskinesia) and/or organic hepatobiliary disease (chronic acalculous cholecystitis and/or cystic duct syndrome) to be low. (Annika and Osmar, J Nucl Med 43: 1603, 2002). 2. There is scintigraphic evidence of pre-fatty meal duodenal gastric reflux. There is no evidence of duodenal-gastric reflux following fatty meal consumption. Electronically Signed: Lambert Beck DO at 16:44 EST Tel , Service support ,
--- NOTE | 2018-01-15 13:46 | PCM.CONS.GEN ---
Problem List (1) Abdominal pain Status: Acute Qualifiers: Abdominal location: right lower quadrant Qualified Code(s): R10.31 - Right lower quadrant pain Reason for Consult Date of Consultation: 01/15/18 Reason for Consultation: Abdominal pain History of Present Illness: The patient is a 62 year old F who was admitted for digoxin toxicity as well as hypoxia and hypotension. According to her skilled nursing she has not been tolerating much of a diet. She is a very poor historian. She is complaining of right lower quadrant pain but has been tolerating a diet here in the hospital she is not complaining of any fevers or chills. She does know how long she has been having this pain. She does not know when her last meal was or if she is able to even tolerate a diet. Past Medical History Past Medical History (Chronic Problems): Chronic Problems (Last Reviewed 01/14/18 @ 17:16 by All Karimi DO) ABDULLAHI (obstructive sleep apnea) (Chronic) Tobacco dependence due to cigarettes (Chronic) Non-compliance (Chronic) Hypersomnia (Chronic) Anemia (Chronic) Normocytic HTN (hypertension) (Chronic) Morbid obesity with BMI of 40.0-44.9, adult (Chronic) COPD (chronic obstructive pulmonary disease) (Chronic) Chronic pain (Chronic) Chronic atrial fibrillation (Chronic) Chronic hypoxemic respiratory failure (Chronic) non-compliant with oxygen Hyperlipemia (Chronic) Type 2 diabetes mellitus (Chronic) uncontrolled GERD (gastroesophageal reflux disease) (Chronic) Anxiety (Chronic) Insomnia (Chronic) Medical History: Medical History (Last Reviewed 01/14/18 @ 17:16 by All Karimi DO) Hypersomnia (Chronic) G47.10 Anemia (Chronic) D64.9 Normocytic HTN (hypertension) (Chronic) I10 Morbid obesity with BMI of 40.0-44.9, adult (Chronic) E66.01, Z68.41 COPD (chronic obstructive pulmonary disease) (Chronic) J44.9 Chronic pain (Chronic) G89.29 Chronic atrial fibrillation (Chronic) I48.2 Chronic hypoxemic respiratory failure (Chronic) J96.11 non-compliant with oxygen Hyperlipemia (Chronic) E78.5 Type 2 diabetes mellitus (Chronic) E11.9 uncontrolled GERD (gastroesophageal reflux disease) (Chronic) K21.9 Anxiety (Chronic) F41.9 Insomnia (Chronic) G47.00 Osteoporosis M81.0 Cardiomyopathy (Ruled-out) I42.9 EF in Oct 2015 45-50 Left ankle pain (Inactive) M25.572 Non-compliance (Inactive) Z91.19 withn follow up with pulmonary Allergies venom-honey bee [bee venom (honey bee)] Allergy (Verified 12/25/17 13:04) Swelling levofloxacin [From Levaquin] Adverse Reaction (Verified 12/25/17 13:04) Nausea oxycodone HCl [From Percocet] Adverse Reaction (Verified 12/25/17 13:04) Nausea Penicillins Adverse Reaction (Verified 12/25/17 13:04) Nausea/Vom/Diarrhea Home Medications: Ambulatory Orders Medication Instructions Recorded Albuterol Aerosols [Ventolin 2.5 mg INHALATION Q4H PRN PRN 05/12/17 Aerosols] Atorvastatin Calcium [Lipitor] 40 mg PO QHS 05/12/17 Budesonide/Formoterol 160/4.5 2 puff INHALATION BID 05/12/17 [Symbicort 160/4.5 Mcg Inhaler (SP)] Bupropion HCl [Bupropion HCl Sr] 150 mg PO BID 05/12/17 Buspirone HCl 10 mg PO TID 05/12/17 Famotidine [Pepcid] 20 mg PO BID 05/12/17 Glucagon,Human Recombinant 1 mg IM PRN PRN 05/12/17 [Glucagon Emergency Kit] Ipratropium/Albuterol Sulfate 3 ml INHALATION Q6H PRN 05/12/17 [Duoneb] Propranolol HCl [Inderal (Beta 10 mg PO BID 05/12/17 Rubén)] Sennosides/Docusate Sodium 2 tab PO DAILY PRN PRN 05/12/17 [Senna-Docusate Sodium Tablet] Mag Hydrox/Al Hydrox/Simeth 30 ml PO Q6H PRN PRN 08/11/17 [Mylanta II] docusate sodium 100 mg capsule 100 mg PO QHS 09/01/17 Rivaroxaban [Xarelto] 20 mg PO DAILY #0 11/03/17 Calcium Carbonate [Tums] 500 mg PO Q6H PRN PRN 11/20/17 Insulin Lispro [Humalog KwikPen] See Protocol SUBCUT 4X/DAYCM 11/24/17 insuln.pen Benzonatate [Tessalon Perle] 100 mg PO TID PRN PRN 12/23/17 Bisacodyl [Dulcolax] 10 mg RECTAL DAILY 12/23/17 Duloxetine HCl 60 mg PO DAILY 12/23/17 Furosemide [Lasix] 40 mg PO BIDLX 12/23/17 Gabapentin [Neurontin] 100 mg PO TIDCM 12/23/17 Guaifenesin [Mucinex] 1,200 mg PO BID PRN 12/23/17 Hydrocodone/Acetaminophen 1 each PO Q6H PRN 12/23/17 [Hydrocodone-Acetamin 5-325 mg] Loperamide [Imodium] 2 mg PO PRN PRN 12/23/17 Polyethylene Glycol 3350 [Miralax] 17 gm PO DAILY 12/23/17 Acetaminophen 650 mg PO PRN PRN 12/25/17 Diltiazem HCl [Diltiazem 12Hr ER] 120 mg PO BID 12/25/17 Insulin Glargine,Hum.rec.anlog 20 unit SQ QHS 12/25/17 [Basaglar Kwikpen U-100] Magnesium Hydroxide [Milk of 30 ml PO DAILY 12/25/17 Magnesia] Ondansetron HCl [Zofran] 4 mg PO Q6H PRN PRN 12/25/17 Digoxin 250 mcg PO DAILY #0 12/28/17 Lactobacillus Acidophilus 1 cap PO DAILY 01/14/18 [Acidophilus] Lactose-Reduced Food [Boost Breeze] 237 ml PO TID 01/14/18 Surgical History: Surgical History (Last Reviewed 01/14/18 @ 17:16 by All Karimi DO) Cataract extraction status Z98.49 History of lumbar surgery Z98.890 History of tonsillectomy and adenoidectomy Z98.890 History of total hysterectomy Z90.710 Surgical History: hysterectomy, tonsillectomy, - - Lumbar surgery. 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 Sibling Family History: Family History (Last Reviewed 01/14/18 @ 17:16 by All Karimi DO) Sister Arthritis Diabetes Father Cancer Aunt Diabetes History Items: Asthma, COPD, Hypertension Review of Systems Constitutional: Reports: Anorexia. Denies: Fever Cardiovascular: Denies: Chest Pain Respiratory: Reports: Cough, Shortness of Breath Gastrointestinal: Reports: Abdominal Pain, Nausea. Denies: Vomiting Genitourinary: Reports: Dysuria Skin: Denies: Jaundice Neurological: Reports: Balance problems Unable to obtain accurate/complete ROS d/t: Patient very confused. Only able to obtain limited review of systems. Patient Problems: Active and Suspected Problems (Last Reviewed 01/14/18 @ 17:16 by All Karimi DO) Bradycardia (Acute) Digoxin toxicity (Acute) - Physical Exam General: No apparent distress HEENT: Atraumatic Neck: No JVD Lungs: Short of Breath, - - Coughing Abdomen: Soft, Non-Distended, Tender - Mild tenderness on the entire right side of her abdomen. No guarding or rebound. Musculoskeletal: No Muscle Wasting Vital Signs Temp Pulse Resp BP Pulse Ox 97.8 F 49 L 16 116/53 L 91 01/15/18 07:53 01/15/18 12:46 01/15/18 12:46 01/15/18 07:53 01/15/18 07:53 Oxygen Flow Rate (L/min) 4 Oxygen Delivery Method Nasal Cannula Weight: 190 lb 11.198 oz Body Mass Index (BMI) 36.0 Finger Stick Blood Glucose 364 Intake and Output for Last 24 Hours 01/13/18 01/14/18 01/15/18 23:59 23:59 23:59 Intake Total 1366 / 1366 725 / 725 Output Total 450 / 450 600 / 600 Balance 916 / 916 125 / 125 Microbiology Past 72 Hours 01/14/18 13:35 Urine Culture - Preliminary Urine Catheter - Catheter Culture exhibits no growth. Laboratory Tests Past 24 Hrs 01/14/18 01/15/18 01/15/18 13:35 05:50 05:50 Sodium 145 Potassium 3.2 L Chloride 110 H Carbon Dioxide 27.0 Anion Gap 8 BUN 11 Creatinine 0.54 L Estim Creat Clear Calc 81.51 Est GFR (MDRD) Af Amer 147 Est GFR (MDRD) Non-Af 122 BUN/Creatinine Ratio 20.4 H Glucose 81 Calcium 7.8 L Magnesium 1.7 B-Natriuretic Peptide 185.1 H Urine Color Yellow Urine Clarity Sl. Cloudy Urine pH 5.0 Ur Specific [place] 1.025 Urine Protein 30 H Urine Glucose (UA) Normal Urine Ketones 5 H Urine Occult Blood Negative Urine Nitrite Negative Urine Bilirubin Negative Urine Urobilinogen Normal Ur Leukocyte Esterase 25 H Urine RBC 0 SEEN Urine WBC 0-5 SEEN Ur Squamous Epith Cells 0-5 SEEN Urine Bacteria 0 SEEN Urine Mucus 0 SEEN POC Glucose 01/15/18 01/15/18 01/14/18 11:21 08:06 21:17 POC Glucose 102 72 136 H 01/14/18 18:15 POC Glucose 191 H Clinical Impression(s) from Imaging Studies Gallbladder Ultrasound 01/14/18 11:38 IMPRESSION: Thickened gallbladder wall. Tumefactive sludge is seen within the gallbladder lumen. Electronically Signed: Jose Lemos MD at 15:30 EST Tel [phone], Service support , Chest X-Ray 01/14/18 12:08 IMPRESSION: No acute abnormality is seen. Electronically Signed: Jose Lemos MD at 12:23 EST Tel [phone], Service support , Chest CTA 01/14/18 13:44 IMPRESSION: Bibasilar patchy infiltrates and/or atelectasis. Electronically Signed: Jose Lemos MD at 15:09 EST Tel [phone], Service support , Assessment/Plan All Active Problems (Last Reviewed 01/14/18 @ 17:16 by All Karimi DO) Bradycardia (Acute) Digoxin toxicity (Acute) Abdominal pain (Acute) Acute encephalopathy (Acute) Acute kidney injury (Acute) HCAP (healthcare-associated pneumonia) (Acute) Acute and chronic respiratory failure with hypoxia (Resolved) Acute bronchitis due to human metapneumovirus (Resolved) Atrial fibrillation with RVR (Resolved) COPD with acute exacerbation (Resolved) Gram-negative pneumonia (Resolved) Syncope (Resolved) Cardiomyopathy (Ruled-out) 62-year-old female with possible cholecystitis 1. The patient has had frequent admissions recently. Mostly for digoxin toxicity as well as COPD exams patient's. The patient's white count was normal on admission with no left shift. She had a high digoxin level and she has been taken off of this. The patient is complaining of right lower quadrant pain. She had an ultrasound this hospitalization which showed a thickened gallbladder wall with sludge. She had an ultrasound of the beginning of this month that showed no gallstones or sludge and a normal gallbladder wall. The patient only has mild tenderness when the right upper quadrant is deeply palpated. She is not having any nausea or vomiting this time. 2. I will order a HIDA scan to rule out acute cholecystitis. If she does not have acute cholecystitis I would recommend laparoscopic cholecystectomy once the patient is doing well and her COPD is under control. It appears that the patient's COPD is not under good control and her sleep apnea as well. The patient is also on Xarelto for A. fib. 3. If the patient does have acute cholecystitis she may require cholecystostomy tube versus cholecystectomy. She would be high risk for complications due to her comorbidities and general condition. 4. Dr. Tobar is on-call for me for the weekend. Jose Manuel Leigh MD Pager: [facility] [address] [place] [address], [address] [place] [address] Office:
--- NOTE | 2018-01-15 13:50 | CON.PCM_ITS ---
Problem List (1) Abdominal pain Status: Acute Qualifiers: Abdominal location: right lower quadrant Qualified Code(s): R10.31 - Right lower quadrant pain Reason for Consult Date of Consultation: 01/15/18 Reason for Consultation: Abdominal pain History of Present Illness: The patient is a 62 year old F who was admitted for digoxin toxicity as well as hypoxia and hypotension. According to her jail she has not been tolerating much of a diet. She is a very poor historian. She is complaining of right lower quadrant pain but has been tolerating a diet here in the hospital she is not complaining of any fevers or chills. She does know how long she has been having this pain. She does not know when her last meal was or if she is able to even tolerate a diet. Past Medical History Past Medical History (Chronic Problems): Chronic Problems (Last Reviewed 01/14/18 @ 17:16 by All Karimi DO) ABDULLAHI (obstructive sleep apnea) (Chronic) Tobacco dependence due to cigarettes (Chronic) Non-compliance (Chronic) Hypersomnia (Chronic) Anemia (Chronic) Normocytic HTN (hypertension) (Chronic) Morbid obesity with BMI of 40.0-44.9, adult (Chronic) COPD (chronic obstructive pulmonary disease) (Chronic) Chronic pain (Chronic) Chronic atrial fibrillation (Chronic) Chronic hypoxemic respiratory failure (Chronic) non-compliant with oxygen Hyperlipemia (Chronic) Type 2 diabetes mellitus (Chronic) uncontrolled GERD (gastroesophageal reflux disease) (Chronic) Anxiety (Chronic) Insomnia (Chronic) Medical History: Medical History (Last Reviewed 01/14/18 @ 17:16 by All Karimi DO) Hypersomnia (Chronic) G47.10 Anemia (Chronic) D64.9 Normocytic HTN (hypertension) (Chronic) I10 Morbid obesity with BMI of 40.0-44.9, adult (Chronic) E66.01, Z68.41 COPD (chronic obstructive pulmonary disease) (Chronic) J44.9 Chronic pain (Chronic) G89.29 Chronic atrial fibrillation (Chronic) I48.2 Chronic hypoxemic respiratory failure (Chronic) J96.11 non-compliant with oxygen Hyperlipemia (Chronic) E78.5 Type 2 diabetes mellitus (Chronic) E11.9 uncontrolled GERD (gastroesophageal reflux disease) (Chronic) K21.9 Anxiety (Chronic) F41.9 Insomnia (Chronic) G47.00 Osteoporosis M81.0 Cardiomyopathy (Ruled-out) I42.9 EF in Oct 2015 45-50 Left ankle pain (Inactive) M25.572 Non-compliance (Inactive) Z91.19 withn follow up with pulmonary Allergies venom-honey bee [bee venom (honey bee)] Allergy (Verified 12/25/17 13:04) Swelling levofloxacin [From Levaquin] Adverse Reaction (Verified 12/25/17 13:04) Nausea oxycodone HCl [From Percocet] Adverse Reaction (Verified 12/25/17 13:04) Nausea Penicillins Adverse Reaction (Verified 12/25/17 13:04) Nausea/Vom/Diarrhea Home Medications: Ambulatory Orders Medication Instructions Recorded Albuterol Aerosols [Ventolin 2.5 mg INHALATION Q4H PRN PRN 05/12/17 Aerosols] Atorvastatin Calcium [Lipitor] 40 mg PO QHS 05/12/17 Budesonide/Formoterol 160/4.5 2 puff INHALATION BID 05/12/17 [Symbicort 160/4.5 Mcg Inhaler (SP)] Bupropion HCl [Bupropion HCl Sr] 150 mg PO BID 05/12/17 Buspirone HCl 10 mg PO TID 05/12/17 Famotidine [Pepcid] 20 mg PO BID 05/12/17 Glucagon,Human Recombinant 1 mg IM PRN PRN 05/12/17 [Glucagon Emergency Kit] Ipratropium/Albuterol Sulfate 3 ml INHALATION Q6H PRN 05/12/17 [Duoneb] Propranolol HCl [Inderal (Beta 10 mg PO BID 05/12/17 Rubén)] Sennosides/Docusate Sodium 2 tab PO DAILY PRN PRN 05/12/17 [Senna-Docusate Sodium Tablet] Mag Hydrox/Al Hydrox/Simeth 30 ml PO Q6H PRN PRN 08/11/17 [Mylanta II] docusate sodium 100 mg capsule 100 mg PO QHS 09/01/17 Rivaroxaban [Xarelto] 20 mg PO DAILY #0 11/03/17 Calcium Carbonate [Tums] 500 mg PO Q6H PRN PRN 11/20/17 Insulin Lispro [Humalog KwikPen] See Protocol SUBCUT 4X/DAYCM 11/24/17 insuln.pen Benzonatate [Tessalon Perle] 100 mg PO TID PRN PRN 12/23/17 Bisacodyl [Dulcolax] 10 mg RECTAL DAILY 12/23/17 Duloxetine HCl 60 mg PO DAILY 12/23/17 Furosemide [Lasix] 40 mg PO BIDLX 12/23/17 Gabapentin [Neurontin] 100 mg PO TIDCM 12/23/17 Guaifenesin [Mucinex] 1,200 mg PO BID PRN 12/23/17 Hydrocodone/Acetaminophen 1 each PO Q6H PRN 12/23/17 [Hydrocodone-Acetamin 5-325 mg] Loperamide [Imodium] 2 mg PO PRN PRN 12/23/17 Polyethylene Glycol 3350 [Miralax] 17 gm PO DAILY 12/23/17 Acetaminophen 650 mg PO PRN PRN 12/25/17 Diltiazem HCl [Diltiazem 12Hr ER] 120 mg PO BID 12/25/17 Insulin Glargine,Hum.rec.anlog 20 unit SQ QHS 12/25/17 [Basaglar Kwikpen U-100] Magnesium Hydroxide [Milk of 30 ml PO DAILY 12/25/17 Magnesia] Ondansetron HCl [Zofran] 4 mg PO Q6H PRN PRN 12/25/17 Digoxin 250 mcg PO DAILY #0 12/28/17 Lactobacillus Acidophilus 1 cap PO DAILY 01/14/18 [Acidophilus] Lactose-Reduced Food [Boost Breeze] 237 ml PO TID 01/14/18 Surgical History: Surgical History (Last Reviewed 01/14/18 @ 17:16 by All Karimi DO) Cataract extraction status Z98.49 History of lumbar surgery Z98.890 History of tonsillectomy and adenoidectomy Z98.890 History of total hysterectomy Z90.710 Surgical History: hysterectomy, tonsillectomy, - - Lumbar surgery. 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 Sibling Family History: Family History (Last Reviewed 01/14/18 @ 17:16 by All Karimi DO) Sister Arthritis Diabetes Father Cancer Aunt Diabetes History Items: Asthma, COPD, Hypertension Review of Systems Constitutional: Reports: Anorexia. Denies: Fever Cardiovascular: Denies: Chest Pain Respiratory: Reports: Cough, Shortness of Breath Gastrointestinal: Reports: Abdominal Pain, Nausea. Denies: Vomiting Genitourinary: Reports: Dysuria Skin: Denies: Jaundice Neurological: Reports: Balance problems Unable to obtain accurate/complete ROS d/t: Patient very confused. Only able to obtain limited review of systems. Patient Problems: Active and Suspected Problems (Last Reviewed 01/14/18 @ 17:16 by All Karimi DO) Bradycardia (Acute) Digoxin toxicity (Acute) - Physical Exam General: No apparent distress HEENT: Atraumatic Neck: No JVD Lungs: Short of Breath, - - Coughing Abdomen: Soft, Non-Distended, Tender - Mild tenderness on the entire right side of her abdomen. No guarding or rebound. Musculoskeletal: No Muscle Wasting Vital Signs Temp Pulse Resp BP Pulse Ox 97.8 F 49 L 16 116/53 L 91 01/15/18 07:53 01/15/18 12:46 01/15/18 12:46 01/15/18 07:53 01/15/18 07:53 Oxygen Flow Rate (L/min) 4 Oxygen Delivery Method Nasal Cannula Weight: 190 lb 11.198 oz Body Mass Index (BMI) 36.0 Finger Stick Blood Glucose 364 Intake and Output for Last 24 Hours 01/13/18 01/14/18 01/15/18 23:59 23:59 23:59 Intake Total 1366 / 1366 725 / 725 Output Total 450 / 450 600 / 600 Balance 916 / 916 125 / 125 Microbiology Past 72 Hours 01/14/18 13:35 Urine Culture - Preliminary Urine Catheter - Catheter Culture exhibits no growth. Laboratory Tests Past 24 Hrs 01/14/18 01/15/18 01/15/18 13:35 05:50 05:50 Sodium 145 Potassium 3.2 L Chloride 110 H Carbon Dioxide 27.0 Anion Gap 8 BUN 11 Creatinine 0.54 L Estim Creat Clear Calc 81.51 Est GFR (MDRD) Af Amer 147 Est GFR (MDRD) Non-Af 122 BUN/Creatinine Ratio 20.4 H Glucose 81 Calcium 7.8 L Magnesium 1.7 B-Natriuretic Peptide 185.1 H Urine Color Yellow Urine Clarity Sl. Cloudy Urine pH 5.0 Ur Specific [place] 1.025 Urine Protein 30 H Urine Glucose (UA) Normal Urine Ketones 5 H Urine Occult Blood Negative Urine Nitrite Negative Urine Bilirubin Negative Urine Urobilinogen Normal Ur Leukocyte Esterase 25 H Urine RBC 0 SEEN Urine WBC 0-5 SEEN Ur Squamous Epith Cells 0-5 SEEN Urine Bacteria 0 SEEN Urine Mucus 0 SEEN POC Glucose 01/15/18 01/15/18 01/14/18 11:21 08:06 21:17 POC Glucose 102 72 136 H 01/14/18 18:15 POC Glucose 191 H Clinical Impression(s) from Imaging Studies Gallbladder Ultrasound 01/14/18 11:38 IMPRESSION: Thickened gallbladder wall. Tumefactive sludge is seen within the gallbladder lumen. Electronically Signed: Jose Lemos MD at 15:30 EST Tel [phone], Service support , Chest X-Ray 01/14/18 12:08 IMPRESSION: No acute abnormality is seen. Electronically Signed: Jose Lemos MD at 12:23 EST Tel [phone], Service support , Chest CTA 01/14/18 13:44 IMPRESSION: Bibasilar patchy infiltrates and/or atelectasis. Electronically Signed: Jose Lemos MD at 15:09 EST Tel [phone], Service support , Assessment/Plan All Active Problems (Last Reviewed 01/14/18 @ 17:16 by All Karimi DO) Bradycardia (Acute) Digoxin toxicity (Acute) Abdominal pain (Acute) Acute encephalopathy (Acute) Acute kidney injury (Acute) HCAP (healthcare-associated pneumonia) (Acute) Acute and chronic respiratory failure with hypoxia (Resolved) Acute bronchitis due to human metapneumovirus (Resolved) Atrial fibrillation with RVR (Resolved) COPD with acute exacerbation (Resolved) Gram-negative pneumonia (Resolved) Syncope (Resolved) Cardiomyopathy (Ruled-out) 62-year-old female with possible cholecystitis 1. The patient has had frequent admissions recently. Mostly for digoxin toxicity as well as COPD exams patient's. The patient's white count was normal on admission with no left shift. She had a high digoxin level and she has been taken off of this. The patient is complaining of right lower quadrant pain. She had an ultrasound this hospitalization which showed a thickened gallbladder wall with sludge. She had an ultrasound of the beginning of this month that showed no gallstones or sludge and a normal gallbladder wall. The patient only has mild tenderness when the right upper quadrant is deeply palpated. She is not having any nausea or vomiting this time. 2. I will order a HIDA scan to rule out acute cholecystitis. If she does not have acute cholecystitis I would recommend laparoscopic cholecystectomy once the patient is doing well and her COPD is under control. It appears that the patient's COPD is not under good control and her sleep apnea as well. The patient is also on Xarelto for A. fib. 3. If the patient does have acute cholecystitis she may require cholecystostomy tube versus cholecystectomy. She would be high risk for complications due to her comorbidities and general condition. 4. Dr. Tobar is on-call for me for the weekend. Jose Manuel Leigh MD Pager: [facility] [address] [place] [address], [address] [place] [address] Office:
[2018-01-15 16:26] LABS: Base Excess 3 mmol/L (-2 to +2); Bicarbonate 25.8 mmol/L (22-26); Blood Gas Specimen Type ART; O2 Delivery Device Nasal Can; PO2 56 mmHG (75-100); SITE R Radial; SO2 91 % (95-99); Time Given 1610; Total Carbon Dioxide 27 mmol/L; pCO2 33.9 mmHg (35-45); pH 7.49 (7.35-7.45)
[2018-01-15 17:26] LABS: Bedside Glucose 178 mg/dL (70-110)
[2018-01-15] MEDS: HYDROcodone Bitartrate/Apap 5/325 Tablet PO (18:11)
--- NOTE | 2018-01-15 18:50 | CON.PCM_ITS ---
Problem List (1) Chronic atrial fibrillation Status: Chronic (2) Bradycardia Status: Acute (3) Digoxin toxicity Status: Acute Qualifiers: Encounter type: initial encounter Injury intent: accidental or unintentional Qualified Code(s): T46.0X1A - Poisoning by cardiac-stimulant glycosides and drugs of similar action, accidental (unintentional), initial encounter (4) Hyperlipemia Status: Chronic Qualifiers: (5) HTN (hypertension) Status: Chronic Qualifiers: (6) Type 2 diabetes mellitus Status: Chronic Qualifiers: Comment: uncontrolled (7) COPD (chronic obstructive pulmonary disease) Status: Chronic Qualifiers: (8) Abdominal pain Status: Acute Qualifiers: Abdominal location: right lower quadrant Qualified Code(s): R10.31 - Right lower quadrant pain Reason for Consult Date of Consultation: 01/15/18 History of Present Illness: The patient is a 62 year old white female with a past medical history which has included underlying chronic/permanent atrial fibrillation, hyperlipidemia, hypertension, diabetes mellitus, COPD, who now was referred for evaluation of bradycardia thought secondary to digitalis intoxication superimposed upon abdominal discomfort thought secondary to underlying gallbladder related disease. She presented based upon concerns of abdominal discomfort and was found to be bradycardic and on subsequent evaluation to have digitalis intoxication with a digitalis level of approximately 2.74. She denies any ongoing chest discomfort. She states she is chronically short of breath and dyspneic. She has been complaining of abdominal discomfort. She is undergone noninvasive evaluation with concerns of gallbladder related disease. She is unaware of any palpitations and denies any obvious near syncope or sy ncope. She was also found to have evidence of hypokalemia. She has had her potassium levels supplemented. She has been undergoing cardiac rhythm monitoring. Her cardiac rhythm is demonstrated atrial fibrillation with variable ventricular response including intermittent slow ventricular response. [] Past Medical History Allergies/Adverse Reactions: Allergies venom-honey bee [bee venom (honey bee)] Allergy (Verified 12/25/17 13:04) Swelling levofloxacin [From Levaquin] Adverse Reaction (Verified 12/25/17 13:04) Nausea oxycodone HCl [From Percocet] Adverse Reaction (Verified 12/25/17 13:04) Nausea Penicillins Adverse Reaction (Verified 12/25/17 13:04) Nausea/Vom/Diarrhea Home Medications: Ambulatory Orders Medication Instructions Recorded RX: Albuterol Aerosols [Ventolin 2.5 mg INHALATION Q4H PRN PRN 05/12/17 Aerosols] RX: Atorvastatin Calcium [Lipitor] 40 mg PO QHS 05/12/17 RX: Budesonide/Formoterol 160/4.5 2 puff INHALATION BID 05/12/17 [Symbicort 160/4.5 Mcg Inhaler (SP)] RX: Bupropion HCl [Bupropion HCl 150 mg PO BID 05/12/17 Sr] RX: Buspirone HCl 10 mg PO TID 05/12/17 RX: Famotidine [Pepcid] 20 mg PO BID 05/12/17 RX: Glucagon,Human Recombinant 1 mg IM PRN PRN 05/12/17 [Glucagon Emergency Kit] RX: Ipratropium/Albuterol Sulfate 3 ml INHALATION Q6H PRN 05/12/17 [Duoneb] RX: Propranolol HCl [Inderal (Beta 10 mg PO BID 05/12/17 Rubén)] RX: Sennosides/Docusate Sodium 2 tab PO DAILY PRN PRN 05/12/17 [Senna-Docusate Sodium Tablet] RX: Mag Hydrox/Al Hydrox/Simeth 30 ml PO Q6H PRN PRN 08/11/17 [Mylanta II] docusate sodium 100 mg capsule 100 mg PO QHS 09/01/17 RX: Rivaroxaban [Xarelto] 20 mg PO DAILY #0 11/03/17 RX: Calcium Carbonate [Tums] 500 mg PO Q6H PRN PRN 11/20/17 RX: Insulin Lispro [Humalog See Protocol SUBCUT 4X/DAYCM 11/24/17 KwikPen] insuln.pen RX: Benzonatate [Tessalon Perle] 100 mg PO TID PRN PRN 12/23/17 RX: Bisacodyl [Dulcolax] 10 mg RECTAL DAILY 12/23/17 RX: Duloxetine HCl 60 mg PO DAILY 12/23/17 RX: Furosemide [Lasix] 40 mg PO BIDLX 12/23/17 RX: Gabapentin [Neurontin] 100 mg PO TIDCM 12/23/17 RX: Guaifenesin [Mucinex] 1,200 mg PO BID PRN 12/23/17 RX: Hydrocodone/Acetaminophen 1 each PO Q6H PRN 12/23/17 [Hydrocodone-Acetamin 5-325 mg] RX: Loperamide [Imodium] 2 mg PO PRN PRN 12/23/17 RX: Polyethylene Glycol 3350 17 gm PO DAILY 12/23/17 [Miralax] RX: Acetaminophen 650 mg PO PRN PRN 12/25/17 RX: Diltiazem HCl [Diltiazem 12Hr 120 mg PO BID 12/25/17 ER] RX: Insulin Glargine,Hum.rec.anlog 20 unit SQ QHS 12/25/17 [Basaglar Kwikpen U-100] RX: Magnesium Hydroxide [Milk of 30 ml PO DAILY 12/25/17 Magnesia] RX: Ondansetron HCl [Zofran] 4 mg PO Q6H PRN PRN 12/25/17 RX: Digoxin 250 mcg PO DAILY #0 12/28/17 Lactobacillus Acidophilus 1 cap PO DAILY 01/14/18 [Acidophilus] Lactose-Reduced Food [Boost Breeze] 237 ml PO TID 01/14/18 Past Medical History (Chronic Problems): Chronic Problems (Last Reviewed 01/14/18 @ 17:16 by All Karimi DO) ABDULLAHI (obstructive sleep apnea) (Chronic) Tobacco dependence due to cigarettes (Chronic) Non-compliance (Chronic) Hypersomnia (Chronic) Anemia (Chronic) Normocytic HTN (hypertension) (Chronic) Morbid obesity with BMI of 40.0-44.9, adult (Chronic) COPD (chronic obstructive pulmonary disease) (Chronic) Chronic pain (Chronic) Chronic atrial fibrillation (Chronic) Chronic hypoxemic respiratory failure (Chronic) non-compliant with oxygen Hyperlipemia (Chronic) Type 2 diabetes mellitus (Chronic) uncontrolled GERD (gastroesophageal reflux disease) (Chronic) Anxiety (Chronic) Insomnia (Chronic) Surgical History: hysterectomy, tonsillectomy, - - Lumbar surgery. 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 Sibling Family History: Family History (Last Reviewed 01/14/18 @ 17:16 by All Karimi DO) Sister Arthritis Diabetes Father Cancer Aunt Diabetes History Items: Asthma, COPD, Hypertension Lives: Intermediate Smoking Status: Current every day smoker Tobacco Use: Non-smoker Alcohol: None Drugs: None Review of Systems - Review of Systems General: Denies: Fever, Night Sweats, Fatigue Cardiovascular: Denies: Chest Discomfort, Shortness of Breath, Orthopnea, PND, Peripheral Edema, Palpitations, Lightheadedness, Dizziness, Near Syncope, Syncope Respiratory: Denies: Cough, Sputum Production, Hemoptysis Gastrointestinal: Reports: Abdominal Discomfort. Denies: Hematemesis, Hematochezia, Melena Genitourinary: Denies: Dysuria, Hematuria Skin: Denies: Rash Subjectve: Is a 62-year-old white female who appears to be resting reasonably comfortably at the moment in no acute distress. Objective: Vital Signs Temp Pulse Resp BP Pulse Ox 97.8 F 71 18 117/44 L 94 01/15/18 18:02 01/15/18 18:02 01/15/18 18:02 01/15/18 18:02 01/15/18 18:02 Oxygen Flow Rate (L/min) 4 Oxygen Delivery Method Nasal Cannula Weight: 190 lb 11.198 oz Body Mass Index (BMI) 36.0 Finger Stick Blood Glucose 364 Intake and Output for Last 24 Hours 01/13/18 01/14/18 01/15/18 23:59 23:59 23:59 Intake Total 1366 / 1366 1045 / 1045 Output Total 450 / 450 600 / 600 Balance 916 / 916 445 / 445 General: Awake, Alert, Oriented x 3, Cooperative, No Acute Distress, Obese HEENT: Atraumatic, Normocephalic, PERRL, EOMI, Sclera Non Icteric Oral: Moist Mucosa Neck: Supple, Good ROM, No JVD Lungs: - - Scattered wheezing Cardiovascular: Irregular Rhythm, Normal S1, Normal S2 Abdomen: Bowel Sounds Present, - - Tenderness to palpation Extremities: No edema Neurological: No Focal Motor or Sensory Deficit 01/15/18 05:50: Sodium 145, Potassium 3.2 L, Chloride 110 H, Carbon Dioxide 27.0, Anion Gap 8, BUN 11, Creatinine 0.54 L, Est GFR (MDRD) Af Amer 147, Est GFR (MDRD) Non-Af 122, BUN/Creatinine Ratio 20.4 H, Glucose 81, Calcium 7.8 L, Magnesium 1.7 01/15/18 05:50: B-Natriuretic Peptide 185.1 H 01/15/18 16:22: pH 7.49 H, Bicarbonate Actual 25.8, POC Total CO2 27, Base Excess 3 H, O2 Saturation 91 L, ABG pCO2 33.9 L, ABG pO2 56 L, Dao Test NA Rhythm: Atrial fibrillation EKG: Atrial fibrillation; ICRBBB; nonspecific ST/T wave abnormality ECHO: 07/11/2017: Technically difficult study: Left ventricular systolic function hyperdynamic with an LVEF of 75%; mild left atrial enlargement; lipomatous hypertrophy of the atrial septum; mild to moderate mitral annular calcification with trivial MR; trivial TR; aortic valve sclerosis/mild aortic valve stenosis; the cardial fat; small pericardial effusion with no cardiac tamponade physiology Stress Test: 05/13/2017: Pharmacologic stress nuclear imaging study: Considered to demonstrate normal myocardial perfusion. CXR: Please see the official report: No great vessel disease reported Assessment/Plan 1. Chronic/permanent atrial fibrillation The patient remains in atrial fibrillation. At the present time her rate control therapy will be adjusted to minimize bradycardia. She is on anticoagulant therapy. 2. Bradycardia The patient has been noted to have episodes of slow ventricular response. This may be secondary to a combination of her medications which have been used to assist with her rate control in the past. At the present time her medication regimen will need to be altered. She will continue her low-dose beta-rubén therapy. Her calcium channel antagonist therapy will be placed on hold. Her digitalis will be discontinued. Her cardiac rate and rhythm will be followed. 3. Digitalis intoxication The patient has had evidence of digitalis intoxication in the past. Her medications have been adjusted. Despite that she has returned with recurrent digitalis intoxication. Thus at the present time her digitalis will be discontinued. Her levels will be followed. If her cardiac rate increases then hopefully can be controlled with her beta- blockers and/or beta-blockers and calcium channel antagonist. 4. Hyperlipidemia She will continue lipid-lowering therapy as deemed appropriate. 5. Hypertension Her blood pressures have waxed and waned. Based upon this her medications will be adjusted which will also include discontinuation of her calcium channel antagonist therapy at this time. She is also not presently receiving diuretic therapy or her previous BRIDGETTE inhibitor therapy. 6. Diabetes mellitus He will continue under the control of internal medicine for this. 7. COPD She will continue under evaluation by internal medicine and if need be pulmonology. 8. Abdominal discomfort He is being evaluated by general surgery for her gallbladder related issues. She does require a general surgical procedure for her gallbladder such as a cholecystectomy then she will need to be monitored with respect to her cardiovascular disease status with respect to her cardiac rate and rhythm and blood pressures. Her medications will need to be adjusted to maintain adequate rate control. Also her anticoagulant therapy would need to be temporarily interrupted. Comment: The patient's case has been discussed and reviewed with the patient and the [facility] staff. This note was generated using a voice recognition system and there may be incorrect words, spelling or punctuation that were not noted when reviewing the office note prior to saving.
[2018-01-15] MEDS: Propranolol 10 MG Tablet PO (21:30)
[2018-01-15] MEDS: Atorvastatin Calcium 40 MG Tablet PO (21:31)
[2018-01-15] MEDS: Insulin Lispro 100 UNIT/ML INSULN.PEN SC (21:35)
[2018-01-16] VITALS (12 sets, daily range): BP systolic 101–120; BP diastolic 44–58; PULSE 56–72; RESP 18; TEMP 36.3–36.6; O2SAT 92–97
[2018-01-16 00:05] LABS: Bedside Glucose 198 mg/dL (70-110)
[2018-01-16] MEDS: HYDROcodone Bitartrate/Apap 5/325 Tablet PO ×2 (03:11→15:08)
--- NOTE | 2018-01-16 05:55 | EKG12_ITS ---
Test Reason : AM EKG Blood Pressure : / mmHG Vent. Rate : 054 BPM Atrial Rate : 050 BPM P-R Int : 000 ms QRS Dur : 094 ms QT Int : 374 ms P-R-T Axes : 000 064 -73 degrees QTc Int : 354 ms Atrial fibrillation with slow ventricular response Incomplete right bundle branch block Nonspecific T wave abnormality Abnormal ECG Confirmed by SPENCER DELGADO, FLORENTINO ([id number]), rewrite editor DIANA GALVEZ ([id number]) on 01/21/2018 2:18:45 PM Referred By: DR HOPSON Confirmed By:FLORENTINO PALMER MD
--- NOTE | 2018-01-16 05:55 | ECHOCS_ITS ---
Reason For Study: Afib/Flutter Procedure This was a 2D Doppler, Color Flow transthoracic echocardiogram. The study was technically difficult. Contrast injection was performed. Exam performed portable in patient room. Left Ventricle Normal LV size. Left ventricular systolic function is normal. The estimated ejection fraction is 65 %. Diastolic function is indeterminate. No regional wall motion abnormalities noted. Right Ventricle Normal RV size. Normal systolic function. Atria The left atrium is mildly enlarged. Normal right atrium. No doppler evidence for ASD. Mitral Valve There is mild to moderate mitral annular calcification. Extension of the mitral annular calcification onto the posterior mitral valve leaflet. Trivial mitral valve insufficiency. Tricuspid Valve Normal tricuspid valve. Mild tricuspid valve insufficiency. Right ventricular systolic pressure estimated to be 38 mmHg. Aortic Valve The aortic valve is not well visualized. Trivial aortic valve insufficiency. Pulmonic Valve The pulmonic valve is not well visualized. Great Vessels The aortic root is not well visualized. Pericardium/Pleural No pericardial effusion. Medication Diluted definity 6ml given slow IV push to enhance endocardial definition. MMode/2D Measurements & Calculations LVIDd: 4.9 cm IVSd: 0.64 cm LA dimension: 4.3 cm LVIDs: 2.8 cm LVPWd: 0.51 cm FS: 44.0 % LAV(MOD-sp4): 93.8 ml LA A4 area: 26.8 cm2 Doppler Measurements & Calculations MV E max moiz: 123.5 cm/sec Lat Peak E' Moiz: 8.9 cm/sec Med Peak E' Moiz: 11.2 cm/sec E/E' lat: 13.9 E/E' med: 11.0 Ao V2 max: 175.5 cm/sec LV V1 max: 127.0 cm/sec PA V2 max: 128.1 cm/sec Ao max P.3 mmHg LV V1 max P.5 mmHg TR max moiz: 271.1 cm/sec TR max P.6 mmHg Interpretation Summary The study was technically difficult. Contrast injection was performed. Left ventricular systolic function is normal. The estimated ejection fraction is 65 %. The left atrium is mildly enlarged. There is mild to moderate mitral annular calcification. Extension of the mitral annular calcification onto the posterior mitral valve leaflet. Trivial mitral valve insufficiency. Mild tricuspid valve insufficiency. Trivial aortic valve insufficiency. Right ventricular systolic pressure estimated to be 38 mmHg. Diastolic function is indeterminate. Ordering Physician: Camden Mccorimck Referring Physician: Camden Santana Performed By: Tyrone Darby RCS
[2018-01-16] MEDS: busPIRone 5 MG Tablet 10 MG PO ×3 (06:09→21:09)
[2018-01-16] MEDS: Nystatin Powder 15gm Bottle 1 APPLIC TOPICAL ×3 (06:10→21:14)
[2018-01-16] MEDS: Menthol/Lanolin/Calamine/Znox 113 GM Tube 1 APPLIC TOPICAL ×2 (06:11→21:14)
[2018-01-16 06:41] LABS: Bedside Glucose 147 mg/dL (70-110)
[2018-01-16] MEDS: Albuterol 2.5 MG/3 ML VIAL.NEB. INHALATION (07:00)
[2018-01-16] MEDS: Budesonide Respules 0.5 MG/2 ML AMPUL.NEB. INHALATION (07:01)
[2018-01-16 07:11] LABS: Absolute Lymphocyte Count 2.28 X10^3/ul (0.83-4.51); Absolute Neutrophil Count 3.9 X10^3/uL (2.0-7.7); Basophil# 0.03 X10^3/uL; Basophil% 0.4 % (0-1); Eosinophil# 0.39 X10^3/uL; Eosinophils% 5.4 % (0-5); Hematocrit 32.1 % (37-47); Hemoglobin 10.1 g/dl (12.0-15.0); Lymphocyte # 2.28 X10^3/ul (4.0); Lymphocyte % 31.4 % (19-41); Mean Corp Hgb Conc 31.5 g/gl (32-36); Mean Corpuscular Hgb 27.5 pg (27.0-32.0); Mean Corpuscular Volume 87.5 fL (81-99); Mean Platelet Vol. 11.2 fl (6.2-12.0); Monocyte# 0.68 X10^3/uL; Monocyte% 9.4 % (0-10); Neutrophil # 3.87 X10^3/uL (2.7-7.7); Neutrophil % 53.3 % (47-70); Platelet Count 224 K/mm3 (150-450); RBC Distribution Width CV 19.3 % (11.6-14.6); Red Blood Count 3.67 M/mm3 (4.2-5.4); White Blood Count 7.3 K/mm3 (4.4-11.0)
[2018-01-16 07:18] LABS: POSITIVE COUNT NO; POSITIVE DIFFERENTIAL NO; POSITIVE MORPHOLOGY NO
[2018-01-16 07:31] LABS: Anion Gap 8 (5-15); BUN 8 mg/dL (7-18); BUN/Creat Ratio 15.1 RATIO (10-20); Calcium,Total 8.1 mg/dL (8.5-10.1); Chloride 113 mmol/L (98-107); Creatinine, Serum 0.53 mg/dL (0.55-1.02); EST Glomerular Filtration Rate 124 mL/min (>60); Est Glom Filt Rate - Afr Amer 150 mL/min (>60); Estimated Creatinine Clearance 83.05 ml/min; Glucose 126 mg/dL (74-106); Potassium 3.6 mmol/L (3.5-5.1); Sodium Level 146 mmol/L (136-145)
--- NOTE | 2018-01-16 07:33 | PCM.PN.SRG ---
Patient Problems: Active and Suspected Problems (Last Reviewed 01/14/18 @ 17:16 by All Kraimi DO) Bradycardia (Acute) Digoxin toxicity (Acute) Subjective: Patient is not complaining of any abdominal pain at this time. Patient had a HIDA scan yesterday which showed normal evaluation of the gallbladder. No ejection fraction was done. Objective: Abdomen is obese soft no palpable masses no rebound guarding or peritoneal signs are identified - Physical Exam Vital Signs Temp Pulse Resp BP Pulse Ox 97.8 F 62 18 120/58 L 92 01/16/18 03:00 01/16/18 07:01 01/16/18 07:01 01/16/18 03:00 01/16/18 07:01 Oxygen Flow Rate (L/min) 4 Oxygen Delivery Method Nasal Cannula Weight: 190 lb 11.198 oz Body Mass Index (BMI) 36.0 Finger Stick Blood Glucose 364 Intake and Output for Last 24 Hours 01/14/18 01/15/18 01/16/18 23:59 23:59 23:59 Intake Total 1366 / 1366 1095 / 1095 240 / 240 Output Total 450 / 450 900 / 900 300 / 300 Balance 916 / 916 195 / 195 -60 / -60 Microbiology Past 72 Hours 01/14/18 13:35 Urine Culture - Preliminary Urine Catheter - Catheter Culture exhibits no growth. Laboratory Tests Past 24 Hrs 01/15/18 01/15/18 01/16/18 05:50 16:22 06:10 WBC 7.3 RBC 3.67 L Hgb 10.1 L Hct 32.1 L MCV 87.5 MCH 27.5 MCHC 31.5 L RDW 19.3 H RDW Differential 62.0 H Plt Count 224 MPV 11.2 Immature Gran % (Auto) 0.100 Neut % (Auto) 53.3 Lymph % (Auto) 31.4 Phillips % (Auto) 9.4 Eos % (Auto) 5.4 H Baso % (Auto) 0.4 Absolute Neuts (auto) 3.9 Absolute Lymphs (auto) 2.28 Total Counted Not Reportable Specimen Type ART Sample Site R Radial pH 7.49 H Bicarbonate Actual 25.8 POC Total CO2 27 Base Excess 3 H O2 Saturation 91 L ABG pCO2 33.9 L ABG pO2 56 L Dao Test NA O2 Delivery Device Nasal Can Liter Flow 4.0 Blood Gas Notified Whom HOSP Blood Gas Notified Time 1610 Sodium Potassium Chloride Carbon Dioxide Anion Gap BUN Creatinine Estim Creat Clear Calc Est GFR (MDRD) Af Amer Est GFR (MDRD) Non-Af BUN/Creatinine Ratio Glucose Calcium Magnesium B-Natriuretic Peptide 185.1 H Digoxin 01/16/18 01/16/18 06:10 06:10 WBC RBC Hgb Hct MCV MCH MCHC RDW RDW Differential Plt Count MPV Immature Gran % (Auto) Neut % (Auto) Lymph % (Auto) Phillips % (Auto) Eos % (Auto) Baso % (Auto) Absolute Neuts (auto) Absolute Lymphs (auto) Total Counted Specimen Type Sample Site pH Bicarbonate Actual POC Total CO2 Base Excess O2 Saturation ABG pCO2 ABG pO2 Dao Test O2 Delivery Device Liter Flow Blood Gas Notified Whom Blood Gas Notified Time Sodium 146 H Potassium 3.6 Chloride 113 H Carbon Dioxide 25.0 Anion Gap 8 BUN 8 Creatinine 0.53 L Estim Creat Clear Calc 83.05 Est GFR (MDRD) Af Amer 150 Est GFR (MDRD) Non-Af 124 BUN/Creatinine Ratio 15.1 Glucose 126 H Calcium 8.1 L Magnesium 2.0 B-Natriuretic Peptide Digoxin Pending POC Glucose 01/16/18 01/15/18 01/15/18 06:24 21:06 17:17 POC Glucose 147 H 198 H 178 H 01/15/18 01/15/18 11:21 08:06 POC Glucose 102 72 Medical Necessity - Tobacco Use Smoking Status: Current every day smoker Tobacco Use: Non-smoker Assessment/Plan All Active Problems (Last Reviewed 01/14/18 @ 17:16 by All Karimi DO) Bradycardia (Acute) Digoxin toxicity (Acute) Abdominal pain (Acute) Acute encephalopathy (Acute) Acute kidney injury (Acute) HCAP (healthcare-associated pneumonia) (Acute) Acute and chronic respiratory failure with hypoxia (Resolved) Acute bronchitis due to human metapneumovirus (Resolved) Atrial fibrillation with RVR (Resolved) COPD with acute exacerbation (Resolved) Gram-negative pneumonia (Resolved) Syncope (Resolved) Cardiomyopathy (Ruled-out) Correction of bradycardia and digoxin toxicity Dr. Albarran to we will reevaluate the patient for an elective outpatient gallbladder removal.
[2018-01-16 07:49] LABS: Digoxin Level 1.43 ng/mL (0.80-2.00)
[2018-01-16] MEDS: Rivaroxaban 20 MG Tablet PO (08:08)
[2018-01-16] MEDS: 0.9% NaCl Peripheral Flush Adult/Peds IV (08:09)
[2018-01-16] MEDS: Gabapentin 100 MG Capsule PO ×3 (08:09→16:54)
[2018-01-16] MEDS: Propranolol 10 MG Tablet PO (09:45)
[2018-01-16] MEDS: Pantoprazole Sodium 40 MG Tablet PO (09:45)
[2018-01-16] MEDS: Furosemide 40 MG Tablet PO ×2 (09:45→17:03)
[2018-01-16] MEDS: DULoxetine Hcl 60 MG Capsule PO (09:45)
[2018-01-16] MEDS: buPROPion (SR) 150 MG Tablet.SA PO ×2 (09:45→21:08)
[2018-01-16 11:26] LABS: Bedside Glucose 149 mg/dL (70-110)
--- NOTE | 2018-01-16 12:58 | PN.CARD_ITS ---
Subjectve: The patient denies any ongoing chest discomfort or worsening shortness of breath or dyspnea at the moment. She believes her abdominal discomfort is somewhat less at this time. Objective: Vital Signs Temp Pulse Resp BP Pulse Ox 97.8 F 66 18 101/44 L 94 01/16/18 09:00 01/16/18 10:58 01/16/18 09:00 01/16/18 09:00 01/16/18 09:00 Oxygen Flow Rate (L/min) 4 Oxygen Delivery Method Nasal Cannula Weight: 190 lb 11.198 oz Body Mass Index (BMI) 36.0 Finger Stick Blood Glucose 364 Intake and Output for Last 24 Hours 01/14/18 01/15/18 01/16/18 23:59 23:59 23:59 Intake Total 1366 / 1366 1095 / 1095 360 / 360 Output Total 450 / 450 900 / 900 300 / 300 Balance 916 / 916 195 / 195 60 / 60 General: Awake, Alert, Oriented x 3, Cooperative, No Acute Distress, Obese HEENT: Atraumatic, Normocephalic, PERRL, EOMI, Sclera Non Icteric Oral: Moist Mucosa Neck: Supple, Good ROM, No JVD Lungs: Clear to auscultation Cardiovascular: Irregular Rhythm, Normal S1, Normal S2 Abdomen: Bowel Sounds Present, Soft Extremities: No edema 01/15/18 05:50: B-Natriuretic Peptide 185.1 H 01/15/18 16:22: pH 7.49 H, Bicarbonate Actual 25.8, POC Total CO2 27, Base Excess 3 H, O2 Saturation 91 L, ABG pCO2 33.9 L, ABG pO2 56 L, Dao Test NA 01/16/18 06:10: WBC 7.3, RBC 3.67 L, Hgb 10.1 L, Hct 32.1 L, MCV 87.5, MCH 27.5, MCHC 31.5 L, RDW 19.3 H, RDW Differential 62.0 H, Plt Count 224, MPV 11.2, Immature Gran % (Auto) 0.100, Neut % (Auto) 53.3, Lymph % (Auto) 31.4, [place] % (Auto) 9.4, Eos % (Auto) 5.4 H, Baso % (Auto) 0.4, Absolute Neuts (auto) 3.9, Total Counted Not Reportable 01/16/18 06:10: Sodium 146 H, Potassium 3.6, Chloride 113 H, Carbon Dioxide 25.0, Anion Gap 8, BUN 8, Creatinine 0.53 L, Est GFR (MDRD) Af Amer 150, Est GFR (MDRD) Non-Af 124, BUN/Creatinine Ratio 15.1, Glucose 126 H, Calcium 8.1 L, Magnesium 2.0 01/16/18 06:10: Digoxin 1.43 Rhythm: Atrial fibrillation EKG: Trial fibrillation; nonspecific ST and T wave abnormality ECHO: Please see official report Medical Necessity - Tobacco Use Smoking Status: Current every day smoker Tobacco Use: Non-smoker Assessment/Plan 1. Chronic/permanent atrial fibrillation The patient remains in atrial fibrillation. At the present time her rate control therapy will be adjusted to minimize bradycardia. She is on anticoagulant therapy. 2. Bradycardia The patient has been noted to have episodes of slow ventricular response. This may be secondary to a combination of her medications which have been used to assist with her rate control in the past. Her digitalis has been discontinued. Her level is decreasing. Her calcium channel antagonist therapy has been discontinued. She has remained on low-dose beta-lou. Thus far her rate appears to be reasonably well controlled without significant bradycardia dysrhythmia or tachycardia dysrhythmia. 3. Digitalis intoxication Her digitalis is been discontinued. Her level has decreased now being within normal range. The present time noting her history of recurrent digitalis intoxication she will remain off of digitalis therapy. 4. Hyperlipidemia She will continue lipid-lowering therapy as deemed appropriate. 5. Hypertension Her blood pressures have waxed and waned. Based upon this her medications will be adjusted which will also include discontinuation of her calcium channel antagonist therapy at this time. She is also not presently receiving diuretic therapy or her previous BRIDGETTE inhibitor therapy. 6. Diabetes mellitus He will continue under the control of internal medicine for this. 7. COPD She will continue under evaluation by internal medicine and if need be pulmonology. 8. Abdominal discomfort He is being evaluated by general surgery for her gallbladder related issues. Also of note, on a previous transthoracic echocardiogram there was comment of a small pericardial effusion. Based upon her echocardiographic images performed this day her overall LV systolic function remains preserved with an estimated LVEF 65% and no evidence of an ongoing pericardial effusion. This note was generated using a voice recognition system and there may be incorrect words, spelling or punctuation that were not noted when reviewing the office note prior to saving.
--- NOTE | 2018-01-16 13:56 | PN_ITS ---
Addendum entered and electronically signed by YANG Guerra 01/16/18 13:58: Code Visit Adddendum: HIDA scan EF 32% (neg). outpatient follow up with gen surgery for elective GB removal. gastric reflux noted. Pepcid changed to protonix. Original Note: <Brian Hinojosa - Last Filed: 01/16/18 13:56> Patient Problems: Active and Suspected Problems (Last Reviewed 01/14/18 @ 17:16 by All Karimi DO) Bradycardia (Acute) Digoxin toxicity (Acute) Subjective: She remains SOB and mildly wheezy. She continues to cough without being able to clear felt mucus. No fever or chills. No palp. No dizziness or LH. Remains on 4 lpm - Physical Exam General: Alert, Oriented x3, Cooperative HEENT: Atraumatic, PERRLA, EOMI, Normocephalic Neck: Supple, No JVD, Negative Carotid Bruits Lungs: Diminished, Wheezes Cardiovascular: Regular rate, No murmurs Abdomen: Bowel Sounds Present, Soft, Non Tender Extremities: No edema, Capillary Refill Less than 3 Seconds Skin: No rashes, No breakdown Musculoskeletal: No Tenderness to Palpation of Joints or Extremities Neurological: Cranial nerves II-XII grossly intact Psych/Mental Status: Normal Affect, Appropriate, Alert and oriented to time, place, person, mood and affect Vital Signs Temp Pulse Resp BP Pulse Ox 97.8 F 66 18 101/44 L 94 01/16/18 09:00 01/16/18 10:58 01/16/18 09:00 01/16/18 09:00 01/16/18 09:00 Oxygen Flow Rate (L/min) 4 Oxygen Delivery Method Nasal Cannula Weight: 190 lb 11.198 oz Body Mass Index (BMI) 36.0 Finger Stick Blood Glucose 364 Intake and Output for Last 24 Hours 01/14/18 01/15/18 01/16/18 23:59 23:59 23:59 Intake Total 1366 / 1366 1095 / 1095 360 / 360 Output Total 450 / 450 900 / 900 300 / 300 Balance 916 / 916 195 / 195 60 / 60 Microbiology Past 72 Hours 01/14/18 13:35 Urine Culture - Final Urine Catheter - Catheter Culture exhibits no growth. Laboratory Tests Past 24 Hrs 01/15/18 01/16/18 01/16/18 16:22 06:10 06:10 WBC 7.3 RBC 3.67 L Hgb 10.1 L Hct 32.1 L MCV 87.5 MCH 27.5 MCHC 31.5 L RDW 19.3 H RDW Differential 62.0 H Plt Count 224 MPV 11.2 Immature Gran % (Auto) 0.100 Neut % (Auto) 53.3 Lymph % (Auto) 31.4 [place] % (Auto) 9.4 Eos % (Auto) 5.4 H Baso % (Auto) 0.4 Absolute Neuts (auto) 3.9 Absolute Lymphs (auto) 2.28 Total Counted Not Reportable Specimen Type ART Sample Site R Radial pH 7.49 H Bicarbonate Actual 25.8 POC Total CO2 27 Base Excess 3 H O2 Saturation 91 L ABG pCO2 33.9 L ABG pO2 56 L Dao Test NA O2 Delivery Device Nasal Can Liter Flow 4.0 Blood Gas Notified Whom [facility] Blood Gas Notified Time 1610 Sodium 146 H Potassium 3.6 Chloride 113 H Carbon Dioxide 25.0 Anion Gap 8 BUN 8 Creatinine 0.53 L Estim Creat Clear Calc 83.05 Est GFR (MDRD) Af Amer 150 Est GFR (MDRD) Non-Af 124 BUN/Creatinine Ratio 15.1 Glucose 126 H Calcium 8.1 L Magnesium 2.0 Digoxin 01/16/18 06:10 WBC RBC Hgb Hct MCV MCH MCHC RDW RDW Differential Plt Count MPV Immature Gran % (Auto) Neut % (Auto) Lymph % (Auto) [place] % (Auto) Eos % (Auto) Baso % (Auto) Absolute Neuts (auto) Absolute Lymphs (auto) Total Counted Specimen Type Sample Site pH Bicarbonate Actual POC Total CO2 Base Excess O2 Saturation ABG pCO2 ABG pO2 Dao Test O2 Delivery Device Liter Flow Blood Gas Notified Whom Blood Gas Notified Time Sodium Potassium Chloride Carbon Dioxide Anion Gap BUN Creatinine Estim Creat Clear Calc Est GFR (MDRD) Af Amer Est GFR (MDRD) Non-Af BUN/Creatinine Ratio Glucose Calcium Magnesium Digoxin 1.43 POC Glucose 01/16/18 01/16/18 01/15/18 11:21 06:24 21:06 POC Glucose 149 H 147 H 198 H 01/15/18 17:17 POC Glucose 178 H Medical Necessity - Tobacco Use Smoking Status: Current every day smoker Tobacco Use: Non-smoker Assessment/Plan All Active Problems (Last Reviewed 01/14/18 @ 17:16 by All Karimi DO) Bradycardia (Acute) Digoxin toxicity (Acute) Abdominal pain (Acute) Acute encephalopathy (Acute) Acute kidney injury (Acute) HCAP (healthcare-associated pneumonia) (Acute) Acute and chronic respiratory failure with hypoxia (Resolved) Acute bronchitis due to human metapneumovirus (Resolved) Atrial fibrillation with RVR (Resolved) COPD with acute exacerbation (Resolved) Gram-negative pneumonia (Resolved) Syncope (Resolved) Cardiomyopathy (Ruled-out) 1. Bradycardia 2/2 dig toxicity - 2nd time this year. Cardiology consult. Dig discontinued and dig level down. Cardizem stopped. Continue beta lou. Rate and pressure improved. 2. COPD with Chronic hypoxic respiratory failure - stable on 4lpm. CXR neg. CTA with infiltrates vs atelectasis. BNP pending. Rhonchi on exam. Continue duonebs. Oral prednisone started. 3. Chronic Afib - as above. On xarelto. 4. T2DM - SSI + Home insulin regimen. 5. Cognitive deficits and unspecified behavioral health issues - permanent SNF resident. Continue home meds. 6. HTN - stable. 7. GERD 8. CAD, hx CM. BB held. Continue lasix. 9. ABDULLAHI - noncompliant. DVT ppx: Xarelto DC planning: Return to SNF when stable. This patient was seen by Brian Hinojosa PA-C under the supervision of Doctor Bonilla. <Radha Bonilla - Last Filed: 01/16/18 14:16> - Physical Exam Vital Signs Temp Pulse Resp BP Pulse Ox 97.8 F 66 18 101/44 L 94 01/16/18 09:00 01/16/18 10:58 01/16/18 09:00 01/16/18 09:00 01/16/18 09:00 Oxygen Flow Rate (L/min) 4 Oxygen Delivery Method Nasal Cannula Weight: 86.5 kg Body Mass Index (BMI) 36.0 Finger Stick Blood Glucose 364 Intake and Output for Last 24 Hours 01/14/18 01/15/18 01/16/18 23:59 23:59 23:59 Intake Total 1366 / 1366 1095 / 1095 360 / 360 Output Total 450 / 450 900 / 900 300 / 300 Balance 916 / 916 195 / 195 60 / 60 Microbiology Past 72 Hours 11/29/18 13:35 Urine Culture - Final Urine Catheter - Catheter Culture exhibits no growth. Laboratory Tests Past 24 Hrs 01/15/18 01/16/18 01/16/18 16:22 06:10 06:10 WBC 7.3 RBC 3.67 L Hgb 10.1 L Hct 32.1 L MCV 87.5 MCH 27.5 MCHC 31.5 L RDW 19.3 H RDW Differential 62.0 H Plt Count 224 MPV 11.2 Immature Gran % (Auto) 0.100 Neut % (Auto) 53.3 Lymph % (Auto) 31.4 [place] % (Auto) 9.4 Eos % (Auto) 5.4 H Baso % (Auto) 0.4 Absolute Neuts (auto) 3.9 Absolute Lymphs (auto) 2.28 Total Counted Not Reportable Specimen Type ART Sample Site R Radial pH 7.49 H Bicarbonate Actual 25.8 POC Total CO2 27 Base Excess 3 H O2 Saturation 91 L ABG pCO2 33.9 L ABG pO2 56 L Dao Test NA O2 Delivery Device Nasal Can Liter Flow 4.0 Blood Gas Notified Whom [facility] Blood Gas Notified Time 1610 Sodium 146 H Potassium 3.6 Chloride 113 H Carbon Dioxide 25.0 Anion Gap 8 BUN 8 Creatinine 0.53 L Estim Creat Clear Calc 83.05 Est GFR (MDRD) Af Amer 150 Est GFR (MDRD) Non-Af 124 BUN/Creatinine Ratio 15.1 Glucose 126 H Calcium 8.1 L Magnesium 2.0 Digoxin 01/16/18 06:10 WBC RBC Hgb Hct MCV MCH MCHC RDW RDW Differential Plt Count MPV Immature Gran % (Auto) Neut % (Auto) Lymph % (Auto) [place] % (Auto) Eos % (Auto) Baso % (Auto) Absolute Neuts (auto) Absolute Lymphs (auto) Total Counted Specimen Type Sample Site pH Bicarbonate Actual POC Total CO2 Base Excess O2 Saturation ABG pCO2 ABG pO2 Dao Test O2 Delivery Device Liter Flow Blood Gas Notified Whom Blood Gas Notified Time Sodium Potassium Chloride Carbon Dioxide Anion Gap BUN Creatinine Estim Creat Clear Calc Est GFR (MDRD) Af Amer Est GFR (MDRD) Non-Af BUN/Creatinine Ratio Glucose Calcium Magnesium Digoxin 1.43 POC Glucose 01/16/18 01/16/18 01/15/18 11:21 06:24 21:06 POC Glucose 149 H 147 H 198 H 01/15/18 17:17 POC Glucose 178 H Assessment/Plan This patient was seen in conjunction with YANG Guerra. I have independently interviewed and examined the patient and reviewed pertinent historical, laboratory, and other data. Please refer to AYNG Guerra note for his patient's presentation, findings, and recommendations. I have reviewed and his note and concur with his documentation Patient was seen and examined. Remains on 4 L of oxygen. She is much more awake and interactive today. Denied any new complaints. Denied any active abdominal pain at the time of being examined. HIDA scan was negative Physical Exam: Gen:Patient is lethargic, looks in some discomfort, not pale, not jaundiced, well hydrated, 4 L of oxygen CVS:HS I +II, regular, no murmurs RESP: Diminished at lung bases GI: Full, firm, nontender, no palpable organs EXT:No edema ASSESSMENT: 1. Bradycardia due to digoxin toxicity, Cardizem side effects, both medications have been held 2. Chronic respiratory failure 3. Chronic atrial fibrillation 4. Severe COPD 5. Type II DM 6. Hypertension 7. Abdominal pain, likely secondary to biliary colic 8. Nicotine dependence 9. Acute metabolic encephalopathy, multifactorial Plan: Appreciate all consults Will continue to hold off digoxin and cardizem Will try to wean off oxygen Will give a short burst of prednisone 40mg po daily x 5 Possible dc in am to SNF Code Visit Inpatient E&M: 87934 Subs Hosp L2
[2018-01-16] MEDS: Glucerna Shake 120 ML LIQUID PO ×2 (14:00→17:03)
[2018-01-16] MEDS: predniSONE 20 MG Tablet 40 MG PO (14:01)
[2018-01-16] MEDS: Insulin Lispro 100 UNIT/ML INSULN.PEN SC ×2 (16:54→21:11)
[2018-01-16 17:01] LABS: Bedside Glucose 184 mg/dL (70-110)
--- NOTE | 2018-01-16 18:21 | NURSING ---
Reviewed and agreed on all charting with Rubén Chicas RN
[2018-01-16] MEDS: Atorvastatin Calcium 40 MG Tablet PO (21:09)
[2018-01-16] MEDS: Docusate Sodium 100 MG Capsule PO (21:09)
[2018-01-16 22:06] LABS: Bedside Glucose 247 mg/dL (70-110)
[2018-01-17] VITALS (9 sets, daily range): BP systolic 116–145; BP diastolic 59–71; PULSE 63–82; RESP 18; TEMP 36.4–36.9; O2SAT 94–98
[2018-01-17] MEDS: busPIRone 5 MG Tablet 10 MG PO (05:31)
[2018-01-17] MEDS: HYDROcodone Bitartrate/Apap 5/325 Tablet PO (05:31)
[2018-01-17] MEDS: Nystatin Powder 15gm Bottle 1 APPLIC TOPICAL (05:32)
[2018-01-17 07:11] LABS: Bedside Glucose 139 mg/dL (70-110)
[2018-01-17] MEDS: Albuterol 2.5 MG/3 ML VIAL.NEB. INHALATION (07:16)
--- NOTE | 2018-01-17 07:40 | PCM.PN.HOSP ---
Patient Problems: Active and Suspected Problems (Last Reviewed 01/14/18 @ 17:16 by All Karimi DO) Bradycardia (Acute) Digoxin toxicity (Acute) Vitals/I&O's: Vital Signs Temp Pulse Resp BP Pulse Ox 97.5 F L 64 18 145/59 H 94 01/17/18 03:10 01/17/18 03:10 01/17/18 03:10 01/17/18 03:10 01/17/18 03:10 Oxygen Flow Rate (L/min) 4 Oxygen Delivery Method Nasal Cannula Weight: 86.5 kg Body Mass Index (BMI) 36.0 Finger Stick Blood Glucose 364 Intake and Output for Last 24 Hours 01/15/18 01/16/18 01/17/18 23:59 23:59 23:59 Intake Total 1095 / 1095 720 / 720 0 / 0 Output Total 900 / 900 300 / 300 Balance 195 / 195 420 / 420 0 / 0 Microbiology Past 72 Hours 01/14/18 11:50 Blood Culture (Wb) - Anticubital Right Blood Culture - Preliminary No growth in 48 hours. 01/14/18 12:40 Blood Culture (Wb) - Left Hand Blood Culture - Preliminary No growth in 48 hours. 01/14/18 13:35 Urine Catheter - Catheter Urine Culture - Final Culture exhibits no growth. Laboratory Results 01/16/18 06:10: Digoxin 1.43 01/16/18 11:21: POC Glucose 149 H 01/16/18 16:50: POC Glucose 184 H 01/16/18 21:06: POC Glucose 247 H 01/17/18 06:50: POC Glucose 139 H Current Medications Acetaminophen (Tylenol) 650 mg PO Q6H PRN PRN PRN Reason: Mild Pain (1-3)/Temp > 100.7 F Last Admin: 01/15/18 08:09 Dose: 650 mg Hydrocodone Bitart/Acetaminophen ([place] 5mg-325mg) 1 tablet PO Q6H PRN PRN Reason: PAIN Last Admin: 01/17/18 05:31 Dose: 1 tablet Al Hydroxide/Mg Hydroxide (Mylanta Ii) 30 ml PO Q6H PRN PRN PRN Reason: DYSPEPSIA/INDIGESTION Albuterol Sulfate (Ventolin Aerosols) 2.5 mg INHALATION Q6HWA.RT MARYANN Last Admin: 01/16/18 20:03 Dose: Not Given Albuterol/Ipratropium (Duoneb) 3 ml INHALATION Q6H PRN PRN Reason: SOB &/OR WHEEZING Last Admin: 01/14/18 19:08 Dose: 3 ml Atorvastatin Calcium (Lipitor) 40 mg PO QHS [facility] Last Admin: 01/16/18 21:09 Dose: 40 mg Benzonatate (Tessalon Perle) 100 mg PO TID PRN PRN PRN Reason: COUGH Bupropion HCl (Wellbutrin Sr (150mg Tablets)) 150 mg PO BID [facility] Last Admin: 01/16/18 21:08 Dose: 150 mg Buspirone HCl (Buspar) 10 mg PO TID [facility] Last Admin: 01/17/18 05:31 Dose: 10 mg Calamine/Phenol (Calmoseptine Ointment) 1 applic TOPICAL BID [facility]; Protocol Last Admin: 01/16/18 21:14 Dose: 1 applicatio Calcium Carbonate (Tums) 500 mg PO Q6H PRN PRN PRN Reason: HEART BURN Docusate Sodium (Colace) 100 mg PO QHS [facility] Last Admin: 01/16/18 21:09 Dose: 100 mg Duloxetine HCl (Cymbalta) 60 mg PO DAILY [facility] Last Admin: 01/16/18 09:45 Dose: 60 mg Furosemide (Lasix) 40 mg PO BIDLX [facility] Last Admin: 01/16/18 17:03 Dose: 40 mg Gabapentin (Neurontin) 100 mg PO TIDCM [facility] Last Admin: 01/16/18 16:54 Dose: 100 mg Glucagon () 1 mg IM PRN PRN PRN Reason: HYPOGLYCEMIA Guaifenesin (Mucinex) 1,200 mg PO BID PRN PRN Reason: CHEST CONGESTION/SECRETIONS Insulin Glargine (Lantus (Bkc)) 20 units SC QHS [facility] Last Admin: 01/16/18 21:11 Dose: 20 units Insulin Human Lispro (Humalog Kwikpen (Bkc)) 0 unit SC 4X/DAYCM [facility]; Protocol Last Admin: 01/17/18 07:37 Dose: Not Given Lactobacillus Acidophilus (Acidophilus) 1 tablet PO DAILY [facility] Last Admin: 01/16/18 09:45 Dose: 1 tablet Loperamide HCl (Imodium) 2 mg PO Q8H PRN PRN Reason: Diarrhea Magnesium Hydroxide (Milk Of Magnesia) 30 ml PO DAILY PRN Nutritional Formula (Lactose Free) (Glucerna Shake) 120 ml PO 4X/DAY [facility] Last Admin: 01/16/18 21:15 Dose: Not Given Nystatin (Mycostatin Powder) 1 applic TOPICAL TID [facility]; Protocol Last Admin: 01/17/18 05:32 Dose: 1 applicatio Ondansetron HCl (Zofran Odt) 4 mg PO Q6H PRN PRN PRN Reason: NAUSEA Ondansetron HCl (Zofran) 4 mg IV Q8H PRN PRN PRN Reason: NAUSEA Pantoprazole Sodium (Protonix) 40 mg PO DAILY [facility] Last Admin: 01/16/18 09:45 Dose: 40 mg Polyethylene Glycol (Miralax) 17 gm PO DAILY [facility] Last Admin: 01/16/18 09:46 Dose: Not Given Prednisone () 40 mg PO DAILY@0800 [facility] Last Admin: 01/16/18 14:01 Dose: 40 mg Propranolol HCl (Inderal) 10 mg PO BID [facility] Last Admin: 01/16/18 21:09 Dose: Not Given Rivaroxaban (Xarelto) 20 mg PO DAILYCM [facility] Last Admin: 01/16/18 08:08 Dose: 20 mg Senna/Docusate Sodium (Senokot-S, Estefania-Colace) 2 tablet PO DAILY PRN PRN PRN Reason: Constipation Sodium Chloride () 5 - 15 ml IV UD PRN PRN Reason: SALINE FLUSH Last Admin: 01/16/18 08:09 Dose: 10 ml Medical Necessity - Tobacco Use Smoking Status: Current every day smoker Tobacco Use: Non-smoker Assessment/Plan All Active Problems (Last Reviewed 01/14/18 @ 17:16 by All Karimi DO) Bradycardia (Acute) Digoxin toxicity (Acute) Abdominal pain (Acute) Acute encephalopathy (Acute) Acute kidney injury (Acute) HCAP (healthcare-associated pneumonia) (Acute) Acute and chronic respiratory failure with hypoxia (Resolved) Acute bronchitis due to human metapneumovirus (Resolved) Atrial fibrillation with RVR (Resolved) COPD with acute exacerbation (Resolved) Gram-negative pneumonia (Resolved) Syncope (Resolved) Cardiomyopathy (Ruled-out)
[2018-01-17] MEDS: Rivaroxaban 20 MG Tablet PO (07:58)
[2018-01-17] MEDS: Gabapentin 100 MG Capsule PO ×2 (07:58→11:54)
[2018-01-17] MEDS: predniSONE 20 MG Tablet 40 MG PO (07:59)
[2018-01-17] MEDS: Menthol/Lanolin/Calamine/Znox 113 GM Tube 1 APPLIC TOPICAL (09:19)
[2018-01-17] MEDS: Furosemide 40 MG Tablet PO (09:20)
[2018-01-17] MEDS: Glucerna Shake 120 ML LIQUID PO (09:20)
[2018-01-17] MEDS: Propranolol 10 MG Tablet PO (09:20)
[2018-01-17] MEDS: DULoxetine Hcl 60 MG Capsule PO (09:20)
[2018-01-17] MEDS: Pantoprazole Sodium 40 MG Tablet PO (09:21)
[2018-01-17] MEDS: buPROPion (SR) 150 MG Tablet.SA PO (09:21)
--- NOTE | 2018-01-17 10:28 | PCM.PN.SRG ---
Patient Problems: Active and Suspected Problems (Last Reviewed 01/14/18 @ 17:16 by All Karimi DO) Bradycardia (Acute) Digoxin toxicity (Acute) Subjective: Patient is not complaining of any right upper quadrant or right lower quadrant abdominal pain today. She is complaining of some hip pain Objective: Abdomen is soft nontender obese - Physical Exam Vital Signs Temp Pulse Resp BP Pulse Ox 97.8 F 64 18 116/67 94 01/17/18 09:10 01/17/18 09:10 01/17/18 09:10 01/17/18 09:10 01/17/18 10:17 Oxygen Flow Rate (L/min) 2 Oxygen Delivery Method Nasal Cannula Weight: 190 lb 11.198 oz Body Mass Index (BMI) 36.0 Finger Stick Blood Glucose 364 Intake and Output for Last 24 Hours 01/15/18 01/16/18 01/17/18 23:59 23:59 23:59 Intake Total 1095 / 1095 720 / 720 0 / 0 Output Total 900 / 900 300 / 300 Balance 195 / 195 420 / 420 0 / 0 Microbiology Past 72 Hours 01/14/18 11:50 Blood Culture - Preliminary Blood Culture (Wb) - Anticubital Right No growth in 48 hours. 01/14/18 12:40 Blood Culture - Preliminary Blood Culture (Wb) - Left Hand No growth in 48 hours. 01/14/18 13:35 Urine Culture - Final Urine Catheter - Catheter Culture exhibits no growth. POC Glucose 01/17/18 01/16/18 01/16/18 06:50 21:06 16:50 POC Glucose 139 H 247 H 184 H 01/16/18 11:21 POC Glucose 149 H Medical Necessity - Tobacco Use Smoking Status: Current every day smoker Tobacco Use: Non-smoker Assessment/Plan All Active Problems (Last Reviewed 01/14/18 @ 17:16 by All Karimi DO) Bradycardia (Acute) Digoxin toxicity (Acute) Abdominal pain (Acute) Acute encephalopathy (Acute) Acute kidney injury (Acute) HCAP (healthcare-associated pneumonia) (Acute) Acute and chronic respiratory failure with hypoxia (Resolved) Acute bronchitis due to human metapneumovirus (Resolved) Atrial fibrillation with RVR (Resolved) COPD with acute exacerbation (Resolved) Gram-negative pneumonia (Resolved) Syncope (Resolved) Cardiomyopathy (Ruled-out) Ejection fraction was low with the gallbladder I believe that she can be evaluated as an outpatient setting once her current medical problems are corrected. No surgical intervention is planned for today.
--- NOTE | 2018-01-17 10:47 | PCM.TXEXTCAR ---
- Diet 01/14/18 17:39 Diet: Cardiac: Calorie-Controlled Food consistency:: Regular Liquid Consistency:: Regular/Thin How many daily calories?: 1800 calorie - Routine Orders/Code Status Suppository Type: Dulcolax 10mg Suppository Frequency: Daily PRN O2 Frequency: Continuous Keep PO Greater than or Equal to (%): 89 Routine Lab Work: CBC - 3 days, BMP - 3 days Code Status: Full Code - Wound(s) intergluteal cleft Wound Type: open area within fold abd. folds Wound Type: [place] [address] [place]/ moist - Therapies Physical Therapy: Eval and Treat Occupational Therapy: Eval and Treat Speech Therapy: Eval and Treat - Problem/Diagnosis (1) Bradycardia Status: Acute Current Visit: Yes (2) Digoxin toxicity Status: Acute Current Visit: Yes (3) COPD (chronic obstructive pulmonary disease) Status: Acute Current Visit: No (4) Abdominal pain Status: Chronic Current Visit: No (5) Anemia Status: Chronic Comment: Normocytic Current Visit: No (6) Anxiety Status: Chronic Current Visit: No (7) Chronic atrial fibrillation Status: Chronic Current Visit: No (8) GERD (gastroesophageal reflux disease) Status: Chronic Current Visit: No (9) HTN (hypertension) Status: Chronic Current Visit: No (10) Hyperlipemia Status: Chronic Current Visit: No (11) ABDULLAHI (obstructive sleep apnea) Status: Chronic Current Visit: No (12) Tobacco dependence due to cigarettes Status: Chronic Current Visit: No (13) Type 2 diabetes mellitus Status: Chronic Comment: uncontrolled Current Visit: No - Allergies/Procedures Done in Hospital Allergies/Adverse Reactions: Allergies venom-honey bee [bee venom (honey bee)] Allergy (Verified 12/25/17 13:04) Swelling levofloxacin [From Levaquin] Adverse Reaction (Verified 12/25/17 13:04) Nausea oxycodone HCl [From Percocet] Adverse Reaction (Verified 12/25/17 13:04) Nausea Penicillins Adverse Reaction (Verified 12/25/17 13:04) Nausea/Vom/Diarrhea Procedures: 2-D Echocardiogram - Type of Care/Length of Stay Estimated LOS: More Than 30 Days Type of Care Needed: Intermediate Rehab Potential: Fair Prognosis: Fair - Additional Orders/Day of Discharge Day of Discharge: 01/17/18 - Dietary and Speech Recommendations Dietitian Recommendations/Changes: Will order ONS medpass d/t poor po intake. 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 - Follow Up Care Primary Care Physician: Camden Burger [Primary Care Provider] - Please follow up with your Primary Care Physician in: 1-2 weeks Please Follow Up With: Camden Mccormick MD When: 2 weeks
--- NOTE | 2018-01-17 10:51 | TREXTCAR_ITS ---
Addendum entered and electronically signed by YANG Guerra 01/17/18 14:28: Code Visit Please also follow up with general surgery, Dr. Leigh in 1-2 weeks. Original Note: - Diet 01/14/18 17:39 Diet: Cardiac: Calorie-Controlled Food consistency:: Regular Liquid Consistency:: Regular/Thin How many daily calories?: 1800 calorie - Routine Orders/Code Status Suppository Type: Dulcolax 10mg Suppository Frequency: Daily PRN O2 Frequency: Continuous Keep PO Greater than or Equal to (%): 89 Routine Lab Work: CBC - 3 days, BMP - 3 days Code Status: Full Code - Wound(s) intergluteal cleft Wound Type: open area within fold abd. folds Wound Type: [place]/ moist - Therapies Physical Therapy: Eval and Treat Occupational Therapy: Eval and Treat Speech Therapy: Eval and Treat - Problem/Diagnosis (1) Bradycardia Status: Acute Current Visit: Yes (2) Digoxin toxicity Status: Acute Current Visit: Yes (3) COPD (chronic obstructive pulmonary disease) Status: Acute Current Visit: No (4) Abdominal pain Status: Chronic Current Visit: No (5) Anemia Status: Chronic Comment: Normocytic Current Visit: No (6) Anxiety Status: Chronic Current Visit: No (7) Chronic atrial fibrillation Status: Chronic Current Visit: No (8) GERD (gastroesophageal reflux disease) Status: Chronic Current Visit: No (9) HTN (hypertension) Status: Chronic Current Visit: No (10) Hyperlipemia Status: Chronic Current Visit: No (11) ABDULLAHI (obstructive sleep apnea) Status: Chronic Current Visit: No (12) Tobacco dependence due to cigarettes Status: Chronic Current Visit: No (13) Type 2 diabetes mellitus Status: Chronic Comment: uncontrolled Current Visit: No - Allergies/Procedures Done in Hospital Allergies/Adverse Reactions: Allergies venom-honey bee [bee venom (honey bee)] Allergy (Verified 12/25/17 13:04) Swelling levofloxacin [From Levaquin] Adverse Reaction (Verified 12/25/17 13:04) Nausea oxycodone HCl [From Percocet] Adverse Reaction (Verified 12/25/17 13:04) Nausea Penicillins Adverse Reaction (Verified 12/25/17 13:04) Nausea/Vom/Diarrhea Procedures: 2-D Echocardiogram - Type of Care/Length of Stay Estimated LOS: More Than 30 Days Type of Care Needed: Intermediate Rehab Potential: Fair Prognosis: Fair - Additional Orders/Day of Discharge Day of Discharge: 01/17/18 - Dietary and Speech Recommendations Dietitian Recommendations/Changes: Will order ONS medpass d/t poor po intake. 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 - Follow Up Care Primary Care Physician: Camden Burger [Primary Care Provider] - Please follow up with your Primary Care Physician in: 1-2 weeks Please Follow Up With: Camden Mccormick MD When: 2 weeks
[2018-01-17 11:35] LABS: Bedside Glucose 200 mg/dL (70-110)
--- NOTE | 2018-01-17 11:47 | NURSING ---
Report called to Jack; Report given to Cely GORDON
[2018-01-17] MEDS: Insulin Lispro 100 UNIT/ML INSULN.PEN SC (11:54)
--- NOTE | 2018-01-17 11:56 | NURSING ---
Attempted to call patients family x3 to notify family of discharge. No answer any time. No voicemail box set up.
--- NOTE | 2018-01-17 14:21 | NURSING ---
Reviewed and agreed on all charting with Rubén Chicas RN
--- NOTE | 2018-01-17 14:24 | PCM.DC.SUM ---
<Brian Hinojosa - Last Filed: 01/17/18 14:46> Discharge Date and Diagnosis Date of Admission: 01/14/18 Date of Discharge: 01/17/18 - Primary Discharge Diagnosis Bradycardia 2/2 digoxin toxicity Acute COPD exacerbation with chronic hypoxic respiratory failure Chronic Afib T2DM HTN GERD Chronic abdominal pain CAD with hx systolic HF and CM ABDULLAHI Cognitive and behavioral health issues, unspecified Debility with Fall - Secondary Discharge Diagnosis Chronic Problems (Last Reviewed 01/14/18 @ 17:16 by All Karimi DO) Abdominal pain (Chronic) ABDULLAHI (obstructive sleep apnea) (Chronic) Tobacco dependence due to cigarettes (Chronic) Non-compliance (Chronic) Hypersomnia (Chronic) Anemia (Chronic) Normocytic HTN (hypertension) (Chronic) Morbid obesity with BMI of 40.0-44.9, adult (Chronic) Chronic pain (Chronic) Chronic atrial fibrillation (Chronic) Chronic hypoxemic respiratory failure (Chronic) non-compliant with oxygen Hyperlipemia (Chronic) Type 2 diabetes mellitus (Chronic) uncontrolled GERD (gastroesophageal reflux disease) (Chronic) Anxiety (Chronic) Insomnia (Chronic) Hospital Course and Treatment Imaging Results: US/Gallbladder IMPRESSION: Thickened gallbladder wall. Tumefactive sludge is seen within the gallbladder lumen. RAD/Chest 1 View (Portable) IMPRESSION: No acute abnormality is seen. CT/CTA Chest W/WO Contrast IMPRESSION: Bibasilar patchy infiltrates and/or atelectasis. NM/Hepatobilliary Img w/Pharm Int IMPRESSION: 1. A gallbladder ejection fraction calculated to be greater than 30% following the administration of an ingested fatty meal makes the probability of functional hepatobiliary disease (gallbladder and/or sphincter of Oddi dyskinesia) and/or organic hepatobiliary disease (chronic acalculous cholecystitis and/or cystic duct syndrome) to be low. (Annika and Osmar, J Nucl Med 43: 1603, 2002). 2. There is scintigraphic evidence of pre-fatty meal duodenal gastric reflux. There is no evidence of duodenal-gastric reflux following fatty meal consumption. Consults Ekaterina Mood[facility] Operations: None Procedures: - - HIDA scan Summary of Care Provided: Hospital course: The patient is a 62 year old F with pmhx as above who presented to the ER from half-way with c/o increased SOB, and abdominal pain. She was supposed to see Dr. Leigh as an outpatient that day for ongoing abdominal pain however her BP was poor and she was bradycardic. In the ER she was found to have the same in the ER with an elevated Dig level. She was previously admitted to the hospital for dig toxicity this year. She was admitted to the PCU for dig toxicity and bradycardia. Cardiology was consulted. Her cardizem and dig were discontinued. Beta rubén continued. Her dig level returned to normal and her rate became normal with stable BP. She was given prednisone and aerosols for her COPD, and her lasix was continued. She improved and was weaned back to her baseline O2 at [address] Leigh was consulted for abdominal pain. HIDA scan was obtained and was negative. She may pursue an outpatient elective cholecystectomy. She will follow up as an outpatient. Prior to dc she fell attempting to get out of bed. She lost balance, no dizziness or LH. She fell onto her buttocks. She had no back, head, buttocks, or leg pain, no numbness or tingling. She was helped up and did not have any pain. No changes on tele. She was [facility] to [facility] in stable condition. She will continue the medication changes as above and complete a steroid taper. Follow up with: PCP 1-2 weeks, Cardiology 2 weeks, Gen Surgeon 1-2 weeks. Patient was seen by Brian Hinojosa PA-C under the supervision of Dr. Bonilla. [] - Physical Exam General: Alert, Oriented x3, Cooperative HEENT: Atraumatic, PERRLA, EOMI, Normocephalic Neck: Supple, No JVD, Negative Carotid Bruits Lungs: Wheezes Cardiovascular: Regular rate, No murmurs Abdomen: Bowel Sounds Present, Soft, Non Tender Extremities: No edema, Capillary Refill Less than 3 Seconds Skin: No rashes, No breakdown Musculoskeletal: No Tenderness to Palpation of Joints or Extremities Neurological: Cranial nerves II-XII grossly intact Psych/Mental Status: Normal Affect, Appropriate, Alert and oriented to time, place, person, mood and affect Vital Signs Temp Pulse Resp BP Pulse Ox 98.5 F 75 18 129/71 H 96 01/17/18 13:50 01/17/18 13:50 01/17/18 13:50 01/17/18 13:50 01/17/18 13:50 Oxygen Flow Rate (L/min) 2 Oxygen Delivery Method Nasal Cannula Weight: 190 lb 11.198 oz Body Mass Index (BMI) 36.0 Finger Stick Blood Glucose 364 Intake and Output for Last 24 Hours 01/15/18 01/16/18 01/17/18 23:59 23:59 23:59 Intake Total 1095 / 1095 720 / 720 120 / 120 Output Total 900 / 900 300 / 300 Balance 195 / 195 420 / 420 120 / 120 Microbiology Past 72 Hours 01/14/18 11:50 Blood Culture - Preliminary Blood Culture (Wb) - Anticubital Right No growth in 48 hours. 01/14/18 12:40 Blood Culture - Preliminary Blood Culture (Wb) - Left Hand No growth in 48 hours. 01/14/18 13:35 Urine Culture - Final Urine Catheter - Catheter Culture exhibits no growth. POC Glucose 01/17/18 01/17/18 01/16/18 11:27 06:50 21:06 POC Glucose 200 H 139 H 247 H 01/16/18 16:50 POC Glucose 184 H Discharge Diet: Low fat/ Low Cholesterol, 1800 Calorie Control Diet, 2000 mg Sodium Diet Discharge Activity: Return to Normal Activity Home Medications: Medications to take at Discharge Albuterol Aerosols [Ventolin Aerosols] 2.5 mg INHALATION Q4H PRN PRN 05/12/17 Atorvastatin Calcium [Lipitor] 40 mg PO QHS 05/12/17 Budesonide/Formoterol 160/4.5 [Symbicort 160/4.5 Mcg Inhaler (SP)] 2 puff INHALATION BID 05/12/17 Bupropion HCl [Bupropion HCl Sr] 150 mg PO BID 05/12/17 Buspirone HCl 10 mg PO TID 05/12/17 Glucagon,Human Recombinant [Glucagon Emergency Kit] 1 mg IM PRN PRN 05/12/17 Ipratropium/Albuterol Sulfate [Duoneb] 3 ml INHALATION Q6H PRN 05/12/17 Propranolol HCl [Inderal (Beta Rubén)] 10 mg PO BID 05/12/17 Sennosides/Docusate Sodium [Senna-Docusate Sodium Tablet] 2 tab PO DAILY PRN PRN 05/12/17 Mag Hydrox/Al Hydrox/Simeth [Mylanta II] 30 ml PO Q6H PRN PRN 08/11/17 docusate sodium 100 mg capsule 100 mg PO QHS 09/01/17 Rivaroxaban [Xarelto] 20 mg PO DAILY #0 11/03/17 Calcium Carbonate [Tums] 500 mg PO Q6H PRN PRN 11/20/17 Insulin Lispro [Humalog KwikPen] See Protocol SUBCUT 4X/DAYCM insuln.pen 11/24/17 Benzonatate [Tessalon Perle] 100 mg PO TID PRN PRN 12/23/17 Bisacodyl [Dulcolax] 10 mg RECTAL DAILY 12/23/17 Duloxetine HCl 60 mg PO DAILY 12/23/17 Furosemide [Lasix] 40 mg PO BIDLX 12/23/17 Gabapentin [Neurontin] 100 mg PO TIDCM 12/23/17 Guaifenesin [Mucinex] 1,200 mg PO BID PRN 12/23/17 Loperamide [Imodium] 2 mg PO PRN PRN 12/23/17 Polyethylene Glycol 3350 [Miralax] 17 gm PO DAILY 12/23/17 Acetaminophen 650 mg PO PRN PRN 12/25/17 Insulin Glargine,Hum.rec.anlog [Basaglar Kwikpen U-100] 20 unit SQ QHS 12/25/17 Magnesium Hydroxide [Milk of Magnesia] 30 ml PO DAILY 12/25/17 Ondansetron HCl [Zofran] 4 mg PO Q6H PRN PRN 12/25/17 Lactobacillus Acidophilus [Acidophilus] 1 cap PO DAILY 01/14/18 Lactose-Reduced Food [Boost Breeze] 237 ml PO TID 01/14/18 Albuterol Aerosols [Ventolin Aerosols] 2.5 mg INHALATION Q6HWA.RT vial.neb. 01/17/18 Pantoprazole Sodium [Protonix] 40 mg PO DAILY #0 tablet 01/17/18 Prednisone 10 mg PO UD #26 tablet 01/17/18 Following Prescrptions Were Given to Patient: Prednisone 10 mg PO UD #26 tablet Primary Care Physician: Camden Burger [Primary Care Provider] - Please follow up with your Primary Care Physician in: 1-2 weeks Please Follow Up With: Camden Mccormick MD When: 2 weeks Please Follow Up With: Jose Manuel Leigh MD When: 1-2 weeks Disposition: [facility] facility Minutes spent on discharge:: 35 Patient Condition:: Stable Medical Necessity - Tobacco Use Smoking Status: Current every day smoker Tobacco Use: Non-smoker Meaningful Use Info Meaningful Use Diagnoses (Choose all that apply): None applicable <Kendalltsrory,[place] - Last Filed: 01/19/18 12:18> Discharge Date and Diagnosis - Secondary Discharge Diagnosis Chronic Problems (Last Reviewed 01/14/18 @ 17:16 by All Karimi DO) Abdominal pain (Chronic) ABDULLAHI (obstructive sleep apnea) (Chronic) Tobacco dependence due to cigarettes (Chronic) Non-compliance (Chronic) Hypersomnia (Chronic) Anemia (Chronic) Normocytic HTN (hypertension) (Chronic) Morbid obesity with BMI of 40.0-44.9, adult (Chronic) Chronic pain (Chronic) Chronic atrial fibrillation (Chronic) Chronic hypoxemic respiratory failure (Chronic) non-compliant with oxygen Hyperlipemia (Chronic) Type 2 diabetes mellitus (Chronic) uncontrolled GERD (gastroesophageal reflux disease) (Chronic) Anxiety (Chronic) Insomnia (Chronic) Hospital Course and Treatment Summary of Care Provided: The patient is a 62 year old F with multiple co-morbidities including chronic respiratory failure, severe COPD who was admitted with lethargy, shortness of breath and abdominal pain and was found to be hypoxic and bradycardic. She was found to have elevated digoxin level. She was admitted to a telemetry bed, her digoxin and cardizem were held. Patient's heart rate improved off digoxin and cardizem. Patient was also managed as acute on chronic respiratory failure and treated for COPD. Cardiology was consulted and recommended discontinuing both cardizem and digoxin. Patient improved with breathing treatments and steroids. She was also seen by general surgery. Her admitting CT of the abdomen/pelvis showed thickened gallbladder. HIDA scan was negative. She will follow-up with Dr. Leigh for outpatient elective cholecystectomy Subjective: On the day of discharge, patient looked better. She denied any chest pain, dizziness, shortness of breath. Telemetry showed HR in the 60 -80s. - Physical Exam Vital Signs Temp Pulse Resp BP Pulse Ox 98.5 F 75 18 129/71 H 96 01/17/18 13:50 01/17/18 13:50 01/17/18 13:50 01/17/18 13:50 01/17/18 13:50 Oxygen Flow Rate (L/min) 2 Oxygen Delivery Method Nasal Cannula Weight: 86.5 kg Body Mass Index (BMI) 36.0 Finger Stick Blood Glucose 364 Intake and Output for Last 24 Hours 01/17/18 01/18/18 01/19/18 23:59 23:59 23:59 Intake Total 120 / 120 Balance 120 / 120 Microbiology Past 72 Hours 01/14/18 11:50 Blood Culture - Preliminary Blood Culture (Wb) - Anticubital Right No growth in 48 hours. 01/14/18 12:40 Blood Culture - Preliminary Blood Culture (Wb) - Left Hand No growth in 48 hours. 01/14/18 13:35 Urine Culture - Final Urine Catheter - Catheter Culture exhibits no growth. Code Visit Inpatient E&M: 79266 Disch Hosp
--- NOTE | 2018-01-17 14:27 | DS.PCM_ITS ---
<Brian Hinojosa - Last Filed: 01/17/18 14:46> Discharge Date and Diagnosis Date of Admission: 01/14/18 Date of Discharge: 01/17/18 - Primary Discharge Diagnosis Bradycardia 2/2 digoxin toxicity Acute COPD exacerbation with chronic hypoxic respiratory failure Chronic Afib T2DM HTN GERD Chronic abdominal pain CAD with hx systolic HF and CM ABDULLAHI Cognitive and behavioral health issues, unspecified Debility with Fall - Secondary Discharge Diagnosis Chronic Problems (Last Reviewed 01/14/18 @ 17:16 by All Karimi DO) Abdominal pain (Chronic) ABDULLAHI (obstructive sleep apnea) (Chronic) Tobacco dependence due to cigarettes (Chronic) Non-compliance (Chronic) Hypersomnia (Chronic) Anemia (Chronic) Normocytic HTN (hypertension) (Chronic) Morbid obesity with BMI of 40.0-44.9, adult (Chronic) Chronic pain (Chronic) Chronic atrial fibrillation (Chronic) Chronic hypoxemic respiratory failure (Chronic) non-compliant with oxygen Hyperlipemia (Chronic) Type 2 diabetes mellitus (Chronic) uncontrolled GERD (gastroesophageal reflux disease) (Chronic) Anxiety (Chronic) Insomnia (Chronic) Hospital Course and Treatment Imaging Results: US/Gallbladder IMPRESSION: Thickened gallbladder wall. Tumefactive sludge is seen within the gallbladder lumen. RAD/Chest 1 View (Portable) IMPRESSION: No acute abnormality is seen. CT/CTA Chest W/WO Contrast IMPRESSION: Bibasilar patchy infiltrates and/or atelectasis. NM/Hepatobilliary Img w/Pharm Int IMPRESSION: 1. A gallbladder ejection fraction calculated to be greater than 30% following the administration of an ingested fatty meal makes the probability of functional hepatobiliary disease (gallbladder and/or sphincter of Oddi dyskinesia) and/or organic hepatobiliary disease (chronic acalculous cholecystitis and/or cystic duct syndrome) to be low. (Annika and Osmar, J Nucl Med 43: 1603, 2002). 2. There is scintigraphic evidence of pre-fatty meal duodenal gastric reflux. There is no evidence of duodenal-gastric reflux following fatty meal consumption. Consults Ekaterina Mood[facility] Operations: None Procedures: - - HIDA scan Summary of Care Provided: Hospital course: The patient is a 62 year old F with pmhx as above who presented [facility] the [facility] from [facility] with c/o increased SOB, and abdominal pain. She was supposed to see Dr. Leigh as an outpatient that day for ongoing abdominal pain however her BP was poor and she was bradycardic. In the ER she was found to have the same in the ER with an elevated Dig level. She was previously admitted to the hospital for dig toxicity this year. She was admitted to the PCU for dig toxicity and bradycardia. Cardiology was consulted. Her cardizem and dig were discontinued. Beta rubén continued. Her dig level returned to normal and her rate became normal with stable BP. She was given prednisone and aerosols for her COPD, and her lasix was continued. She improved and was weaned back to her baseline O2 at [address] Leigh was consulted for abdominal pain. HIDA scan was obtained and was negative. She may pursue an outpatient elective cholecystectomy. She will follow up as an outpatient. Prior to dc she fell attempting to get out of bed. She lost balance, no dizziness or LH. She fell onto her buttocks. She had no back, head, buttocks, or leg pain, no numbness or tingling. She was helped up and did not have any pain. No changes on tele. She was discharged back to longterm in stable condition. She will continue the medication changes as above and complete a steroid taper. Follow up with: PCP 1-2 weeks, Cardiology 2 weeks, Gen Surgeon 1-2 weeks. Patient was seen by Brian Hinojosa PA-C under the supervision of Dr. Bonilla. [] - Physical Exam General: Alert, Oriented x3, Cooperative HEENT: Atraumatic, PERRLA, EOMI, Normocephalic Neck: Supple, No JVD, Negative Carotid Bruits Lungs: Wheezes Cardiovascular: Regular rate, No murmurs Abdomen: Bowel Sounds Present, Soft, Non Tender Extremities: No edema, Capillary Refill Less than 3 Seconds Skin: No rashes, No breakdown Musculoskeletal: No Tenderness to Palpation of Joints or Extremities Neurological: Cranial nerves II-XII grossly intact Psych/Mental Status: Normal Affect, Appropriate, Alert and oriented to time, place, person, mood and affect Vital Signs Temp Pulse Resp BP Pulse Ox 98.5 F 75 18 129/71 H 96 01/17/18 13:50 01/17/18 13:50 01/17/18 13:50 01/17/18 13:50 01/17/18 13:50 Oxygen Flow Rate (L/min) 2 Oxygen Delivery Method Nasal Cannula Weight: 190 lb 11.198 oz Body Mass Index (BMI) 36.0 Finger Stick Blood Glucose 364 Intake and Output for Last 24 Hours 01/15/18 01/16/18 01/17/18 23:59 23:59 23:59 Intake Total 1095 / 1095 720 / 720 120 / 120 Output Total 900 / 900 300 / 300 Balance 195 / 195 420 / 420 120 / 120 Microbiology Past 72 Hours 01/14/18 11:50 Blood Culture - Preliminary Blood Culture (Wb) - Anticubital Right No growth in 48 hours. 01/14/18 12:40 Blood Culture - Preliminary Blood Culture (Wb) - Left Hand No growth in 48 hours. 01/14/18 13:35 Urine Culture - Final Urine Catheter - Catheter Culture exhibits no growth. POC Glucose 01/17/18 01/17/18 01/16/18 11:27 06:50 21:06 POC Glucose 200 H 139 H 247 H 01/16/18 16:50 POC Glucose 184 H Discharge Diet: Low fat/ Low Cholesterol, 1800 Calorie Control Diet, 2000 mg Sodium Diet Discharge Activity: Return to Normal Activity Home Medications: Medications to take at Discharge Albuterol Aerosols [Ventolin Aerosols] 2.5 mg INHALATION Q4H PRN PRN 05/12/17 Atorvastatin Calcium [Lipitor] 40 mg PO QHS 05/12/17 Budesonide/Formoterol 160/4.5 [Symbicort 160/4.5 Mcg Inhaler (SP)] 2 puff INHALATION BID 05/12/17 Bupropion HCl [Bupropion HCl Sr] 150 mg PO BID 05/12/17 Buspirone HCl 10 mg PO TID 05/12/17 Glucagon,Human Recombinant [Glucagon Emergency Kit] 1 mg IM PRN PRN 05/12/17 Ipratropium/Albuterol Sulfate [Duoneb] 3 ml INHALATION Q6H PRN 05/12/17 Propranolol HCl [Inderal (Beta Rubén)] 10 mg PO BID 05/12/17 Sennosides/Docusate Sodium [Senna-Docusate Sodium Tablet] 2 tab PO DAILY PRN PRN 05/12/17 Mag Hydrox/Al Hydrox/Simeth [Mylanta II] 30 ml PO Q6H PRN PRN 08/11/17 docusate sodium 100 mg capsule 100 mg PO QHS 09/01/17 Rivaroxaban [Xarelto] 20 mg PO DAILY #0 11/03/17 Calcium Carbonate [Tums] 500 mg PO Q6H PRN PRN 11/20/17 Insulin Lispro [Humalog KwikPen] See Protocol SUBCUT 4X/DAYCM insuln.pen 11/24/17 Benzonatate [Tessalon Perle] 100 mg PO TID PRN PRN 12/23/17 Bisacodyl [Dulcolax] 10 mg RECTAL DAILY 12/23/17 Duloxetine HCl 60 mg PO DAILY 12/23/17 Furosemide [Lasix] 40 mg PO BIDLX 12/23/17 Gabapentin [Neurontin] 100 mg PO TIDCM 12/23/17 Guaifenesin [Mucinex] 1,200 mg PO BID PRN 12/23/17 Loperamide [Imodium] 2 mg PO PRN PRN 12/23/17 Polyethylene Glycol 3350 [Miralax] 17 gm PO DAILY 12/23/17 Acetaminophen 650 mg PO PRN PRN 12/25/17 Insulin Glargine,Hum.rec.anlog [Basaglar Kwikpen U-100] 20 unit SQ QHS 12/25/17 Magnesium Hydroxide [Milk of Magnesia] 30 ml PO DAILY 12/25/17 Ondansetron HCl [Zofran] 4 mg PO Q6H PRN PRN 12/25/17 Lactobacillus Acidophilus [Acidophilus] 1 cap PO DAILY 01/14/18 Lactose-Reduced Food [Boost Breeze] 237 ml PO TID 01/14/18 Albuterol Aerosols [Ventolin Aerosols] 2.5 mg INHALATION Q6HWA.RT vial.neb. 01/17/18 Pantoprazole Sodium [Protonix] 40 mg PO DAILY #0 tablet 01/17/18 Prednisone 10 mg PO UD #26 tablet 01/17/18 Following Prescrptions Were Given to Patient: Prednisone 10 mg PO UD #26 tablet Primary Care Physician: Camden Burger [Primary Care Provider] - Please follow up with your Primary Care Physician in: 1-2 weeks Please Follow Up With: Camden Mccormick MD When: 2 weeks Please Follow Up With: Jose Manuel Leigh MD When: 1-2 weeks Disposition: [facility] facility Minutes spent on discharge:: 35 Patient Condition:: Stable Medical Necessity - Tobacco Use Smoking Status: Current every day smoker Tobacco Use: Non-smoker Meaningful Use Info Meaningful Use Diagnoses (Choose all that apply): None applicable <Kendalltsrory,[place] - Last Filed: 01/19/18 12:18> Discharge Date and Diagnosis - Secondary Discharge Diagnosis Chronic Problems (Last Reviewed 01/14/18 @ 17:16 by All Karimi DO) Abdominal pain (Chronic) ABDULLAHI (obstructive sleep apnea) (Chronic) Tobacco dependence due to cigarettes (Chronic) Non-compliance (Chronic) Hypersomnia (Chronic) Anemia (Chronic) Normocytic HTN (hypertension) (Chronic) Morbid obesity with BMI of 40.0-44.9, adult (Chronic) Chronic pain (Chronic) Chronic atrial fibrillation (Chronic) Chronic hypoxemic respiratory failure (Chronic) non-compliant with oxygen Hyperlipemia (Chronic) Type 2 diabetes mellitus (Chronic) uncontrolled GERD (gastroesophageal reflux disease) (Chronic) Anxiety (Chronic) Insomnia (Chronic) Hospital Course and Treatment Summary of Care Provided: The patient is a 62 year old F with multiple co-morbidities including chronic respiratory failure, severe COPD who was admitted with lethargy, shortness of breath and abdominal pain and was found to be hypoxic and bradycardic. She was found to have elevated digoxin level. She was admitted to a telemetry bed, her digoxin and cardizem were held. Patient's heart rate improved off digoxin and cardizem. Patient was also managed as acute on chronic respiratory failure and treated for COPD. Cardiology was consulted and recommended discontinuing both cardizem and digoxin. Patient improved with breathing treatments and steroids. She was also seen by general surgery. Her admitting CT of the abdomen/pelvis showed thickened gallbladder. HIDA scan was negative. She will follow-up with Dr. Leigh for outpatient elective cholecystectomy Subjective: On the day of discharge, patient looked better. She denied any chest pain, dizziness, shortness of breath. Telemetry showed HR in the 60 -80s. - Physical Exam Vital Signs Temp Pulse Resp BP Pulse Ox 98.5 F 75 18 129/71 H 96 01/17/18 13:50 01/17/18 13:50 01/17/18 13:50 01/17/18 13:50 01/17/18 13:50 Oxygen Flow Rate (L/min) 2 Oxygen Delivery Method Nasal Cannula Weight: 86.5 kg Body Mass Index (BMI) 36.0 Finger Stick Blood Glucose 364 Intake and Output for Last 24 Hours 01/17/18 01/18/18 01/19/18 23:59 23:59 23:59 Intake Total 120 / 120 Balance 120 / 120 Microbiology Past 72 Hours 01/14/18 11:50 Blood Culture - Preliminary Blood Culture (Wb) - Anticubital Right No growth in 48 hours. 01/14/18 12:40 Blood Culture - Preliminary Blood Culture (Wb) - Left Hand No growth in 48 hours. 01/14/18 13:35 Urine Culture - Final Urine Catheter - Catheter Culture exhibits no growth. Code Visit Inpatient E&M: [id number] Disch Hosp
--- OUTSIDE RECORDS SUMMARY | 2018-03-11 14:51 | XMS RPT_ITS ---
:1955 Author Organization OHIP Support Name Relationship Address Phone ANGIE, KWESI Unavailable Unavailable + [place] [address] D Unavailable Unavailable Unavailable ANGIE, KWESI Unavailable Unavailable + [place] [address] D Unavailable Unavailable Unavailable ANGIE, KWESI Unavailable . + [place] [address] D Unavailable Unavailable Unavailable ANGIE, KWESI Unavailable Unavailable + [place] [address] D Unavailable Unavailable Unavailable ANGIE, KWESI Unavailable Unavailable + [place] [address] D Unavailable Unavailable Unavailable ANGIE, KWESI Unavailable . + [place] [address] D Unavailable Unavailable Unavailable ANGIE, KWESI Unavailable Unavailable + [place] [address] D Unavailable Unavailable Unavailable ANGIE, KWESI Unavailable Unavailable + [place] [address] D Unavailable Unavailable Unavailable ANGIE, KWESI Unavailable . + [place] [address] D Unavailable Unavailable Unavailable ANGIE, KWESI Unavailable Unavailable + [place] [address] D Unavailable Unavailable Unavailable ANGIE, KWESI Unavailable . + [place] [address] D Unavailable Unavailable Unavailable ANGIE, KWESI Unavailable . + [place] [address] D Unavailable Unavailable Unavailable ANGIE, KWESI Unavailable Unavailable + [place] [address] D Unavailable Unavailable Unavailable ANGIE, KWESI Unavailable Unavailable + D Unavailable Unavailable Unavailable ANGIE, KWESI Unavailable . + [place] [address] D Unavailable Unavailable Unavailable ANGIE, KWESI Unavailable . + [place] [address] D Unavailable Unavailable Unavailable ANGIE, KWESI Unavailable . + [place] [address] D Unavailable Unavailable Unavailable ANGIE, KWESI Unavailable . + [place] [address] D Unavailable Unavailable Unavailable ANGIE, KWESI Unavailable . + [place] [address] D Unavailable Unavailable Unavailable ANGIE, KWESI Unavailable . + [place] [address] D Unavailable Unavailable Unavailable ANGIE, KWESI Unavailable . + [place] [address] D Unavailable Unavailable Unavailable ANGIE, KWESI Unavailable Unavailable + [place] [address] D Unavailable Unavailable Unavailable ANGIE, KWESI Unavailable . + [place] [address] D Unavailable Unavailable Unavailable ANGIE, KWESI Unavailable . + [place] [address] D Unavailable Unavailable Unavailable ANGIE, KWESI Unavailable Unavailable + [place] [address] D Unavailable Unavailable Unavailable ANGIE, KWESI Unavailable . + [place] [address] D Unavailable Unavailable Unavailable ANGIE, KWESI Unavailable . + [place] [address] D Unavailable Unavailable Unavailable ANGIE, KWESI Unavailable Unavailable + [place] [address] D Unavailable Unavailable Unavailable ANGIE, KWESI Unavailable . + [place] [address] D Unavailable Unavailable Unavailable ANGIE, KWESI Unavailable . + [place] [address] D Unavailable Unavailable Unavailable ANGIE, KWESI Unavailable . + [place] [address] D Unavailable Unavailable Unavailable ANGIE, KWESI Unavailable 1 + [place] [address] D Unavailable Unavailable Unavailable ANGIE, KWESI Unavailable Unavailable + [place] [address] D Unavailable Unavailable Unavailable ANGIE, KWESI Unavailable Unavailable + [place] [address] D Unavailable Unavailable Unavailable ANGIE, KWESI Unavailable Unavailable + [place] [address] D Unavailable Unavailable Unavailable ANGIE, KWESI Unavailable Unavailable + [place] [address] D Unavailable Unavailable Unavailable ANGIE, KWESI Unavailable [address] [phone] [address] [place] [address] D Unavailable Unavailable Unavailable ANGIE, KWESI Unavailable [address] Unavailable [address] [place] [address] D Unavailable Unavailable Unavailable ANGIE, KWESI Unavailable [address] [phone] [address] [place] [address] D Unavailable Unavailable Unavailable ANGIE, KWESI Unavailable [address] Unavailable [address] [place] [address] D Unavailable Unavailable Unavailable ANGIE, KWESI Unavailable [address] Un[address] [place] [address] D Unavailable Unavailable Unavailable ANGIE, KWESI Unavailable [address] [place] [address] D Unavailable Unavailable Unavailable ANGIE, KWESI Unavailable [address] [place] [address] D Unavailable Unavailable Unavailable ANGIE, KWESI Unavailable [address] [place] [address] D Unavailable Unavailable Unavailable ANGIE, KWESI Unavailable [address] [place] [address] D Unavailable Unavailable Unavailable ANGIE, KWESI Unavailable [address] +. [address] [place] [address] D Unavailable Unavailable Unavailable ANGIE, KWESI Unavailable Unavailable + [place] [address] D Unavailable Unavailable Unavailable ANGIE, KWESI Unavailable Unavailable + [place] [address] D Unavailable Unavailable Unavailable ANGIE, KWESI Unavailable [address] +[address] [place] [address] D Unavailable Unavailable Unavailable ANGIE, KWESI Unavailable [address] +. [address] [place] [address] D Unavailable Unavailable Unavailable ANGIE, KWESI Unavailable Unavailable + [place] [address] D Unavailable Unavailable Unavailable ANGIE, KWESI Unavailable Unavailable + [place] [address] D Unavailable Unavailable Unavailable ANGIE, KWESI Unavailable [address] +[address] [place] [address] D Unavailable Unavailable Unavailable ANGIE, KWESI Unavailable [address] +. [address] [place] [address] D Unavailable Unavailable Unavailable ANGIE, KWESI Unavailable [address] [place] [address] D Unavailable Unavailable Unavailable ANGIE, KWESI Unavailable Unavailable + [place] [address] D Unavailable Unavailable Unavailable ANGIE, KWESI Unavailable Unavailable + [place] [address] D Unavailable Unavailable Unavailable ANGIE, KWESI Unavailable Unavailable + [place] [address] D Unavailable Unavailable Unavailable ANGIE, KWESI Unavailable Unavailable + [place] [address] D Unavailable Unavailable Unavailable ANGIE, KWESI Unavailable Unavailable + [place] [address] D Unavailable Unavailable Unavailable ANGIE, KWESI Unavailable Unavailable + [place] [address] D Unavailable Unavailable Unavailable ANGIE, KWESI Unavailable Unavailable + [place] [address] D Unavailable Unavailable Unavailable ANGIE, KWESI Unavailable Unavailable + [place] [address] D Unavailable Unavailable Unavailable ANGIE, KWESI Unavailable Unavailable + [place] [address] D Unavailable Unavailable Unavailable ANGIE, KWESI Unavailable . + [place] [address] D Unavailable Unavailable Unavailable ANGIE, KWESI Unavailable . + [place] [address] D Unavailable Unavailable Unavailable ANGIE, KWESI Unavailable Unavailable + [place] [address] D Unavailable Unavailable Unavailable ANGIE, KWESI Unavailable . + [place] [address] D Unavailable Unavailable Unavailable ANGIE, KWESI Unavailable Unavailable + [place] [address] D Unavailable Unavailable Unavailable ANGIE, KWESI Unavailable Unavailable + [place] [address] D Unavailable Unavailable Unavailable ANGIE, KWESI Unavailable . + [place] [address] D Unavailable Unavailable Unavailable ANGIE, KWESI Unavailable . + [place] [address] D Unavailable Unavailable Unavailable ANGIE, KWESI Unavailable . + [place] [address] D Unavailable Unavailable Unavailable ANGIE, KWESI Unavailable . + [place] [address] D Unavailable Unavailable Unavailable ANGIE, KWESI Unavailable . + [place] [address] D Unavailable Unavailable Unavailable ANGIE, KWESI Unavailable . + [place] [address] D Unavailable Unavailable Unavailable ANGIE, KWESI Unavailable . + [place] [address] D Unavailable Unavailable Unavailable Care Team Providers Name Role Phone Rai Cardenas Primary Care Unavailable Camden Burger Referring Unavailable Jo Esposito Admitting Unavailable Sementi, Avis Attending Unavailable Jo Esposito Attending Unavailable Jose Manuel Leigh Referring Unavailable Burger, Camden Primary Care Unavailable Megan Leighony Consulting Unavailable Terkjky, Lemuel Admitting Unavailable Ternora Lemuel Attending Unavailable Terkjky, Lemuel Admitting Unavailable Brian Hinojosa Attending Unavailable Reese Jose Manuel Referring Unavailable Camden Burger Primary Care Unavailable Reese, Jose Manuel Consulting Unavailable Tereletsky, Lemuel Consulting Unavailable Sementi, Avis Attending Unavailable Sementi, Avis Attending Unavailable Sementi, Avis Attending Unavailable Sementi, Avis Attending Unavailable Vijaya, Lan Attending Unavailable Sementi, Avis Referring Unavailable Camden Burger Primary Care Unavailable Sementi, Avis Admitting Unavailable Subhash Cleary Attending Unavailable Sementi, Avis Admitting Unavailable Sementi, Avis Attending Unavailable Burger, Camden Primary Care Unavailable Sementi, Avis Consulting Unavailable Mary Ruiz Attending Unavailable Brent Prasad D.O. Attending Unavailable Camden Burger Referring Unavailable Brent Prasad D.O. Attending Unavailable Brent Prasad D.O. Referring Unavailable Camden Burger Primary Care Unavailable Vijaya, Eureka Attending Unavailable Sementi, Avis Referring Unavailable Sementi, Avis Attending Unavailable Vijaya, Lan Referring Unavailable Brent Prasad D.O. Attending Unavailable Brent Prasad D.O. Referring Unavailable Jaime Shah Attending Unavailable Jaime Shah Referring Unavailable Burger, Camden Primary Care Unavailable Burger, Camden Primary Care Unavailable Maribel, Chau Admitting Unavailable White, Jo Attending Unavailable Moodispatash, Camden Consulting Unavailable Maribel, Chau Admitting Unavailable Burger, Camden Primary Care Unavailable Maribel, Chau Consulting Unavailable Roldan Caro Attending Unavailable Maribel, Chau Admitting Unavailable White, Jo Attending Unavailable Burger, Camden Primary Care Unavailable Moodispaw, Camden Consulting Unavailable White, Jo Consulting Unavailable Maribel, Chau Admitting Unavailable Moodisela Camden Attending Unavailable Burger, Camden Primary Care Unavailable Moodispatash, Camden Consulting Unavailable White, Jo Consulting Unavailable Maribel, Chau Admitting Unavailable White, Jo Attending Unavailable Burger, Camden Primary Care Unavailable Moodispaw, Camden Consulting Unavailable White, Jo Consulting Unavailable Burger, Camden Primary Care Unavailable Burger, Camden Admitting Unavailable Ashelfah, Ghasem Attending Unavailable Camden Burger Attending Unavailable Burger, Camden Primary Care Unavailable Burger, Camden Admitting Unavailable Burger, Camden Primary Care Unavailable Ashelfah, Ghasem Consulting Unavailable Ashelfah, Ghasem Attending Unavailable Burger, Camden Admitting Unavailable Burger, Camden Primary Care Unavailable Ashelfah, Ghasem Consulting Unavailable Ashelfah, Ghasem Attending Unavailable Yisel Forman Attending Unavailable Burger, Camden Primary Care Unavailable Pablo Montalvoe Admitting Unavailable Zacarias Carias Attending Unavailable Katia, Avis Admitting Unavailable SemenAvis koroma Attending Unavailable Burger, Camden Primary Care Unavailable Avis Montalvo Consulting Unavailable Zacarias Carias Attending Unavailable Zacarias Carias Attending Unavailable Marylu Howell Attending Unavailable Camden Burger Referring Unavailable Burger, Camden Primary Care Unavailable Maribel, Chau Admitting Unavailable Ashelfah, Ghasem Attending Unavailable Maribel, Chau Admitting Unavailable Burger, Camden Primary Care Unavailable Maribel, Chau Consulting Unavailable Vaibhav, Jo Attending Unavailable Maribel, Chau Admitting Unavailable Burger, Camden Primary Care Unavailable Ashelfah, Ghasem Consulting Unavailable Ashelfah, Ghasem Attending Unavailable Maribel, Chau Admitting Unavailable Burger, Camden Primary Care Unavailable Ashelfah, Ghasem Consulting Unavailable Ashelfah, Ghasem Attending Unavailable Maribel, Chau Admitting Unavailable Burger, Camden Primary Care Unavailable Ashelfah, Ghasem Consulting Unavailable Ashelfah, Ghasem Attending Unavailable Yisel Forman Attending Unavailable Marylu Howell Attending Unavailable Debi Alejandre.O. Consulting Unavailable Burger, Camden Primary Care Unavailable Lan Lilly Attending Unavailable Burger, Camden Referring Unavailable Howell, Marylu Attending Unavailable Burger, Camden Referring Unavailable Howell, Marylu Attending Unavailable Burger, Camden Referring Unavailable Burger, Camden Primary Care Unavailable Burger, Camden Primary Care Unavailable Agyepong, Zacarias Admitting Unavailable Agyepong, Zacarias Referring Unavailable Jopperi, All Attending Unavailable Agyepong, Zacarias Admitting Unavailable Agyepong, Zacarias Attending Unavailable Agyepong, Zacarias Referring Unavailable Burger, Camden Primary Care Unavailable Agyepong, Zacarias Consulting Unavailable Agyepong, Zacarias Admitting Unavailable Jopperi, All Attending Unavailable Agyepong, Zacarias Referring Unavailable Burger, Camden Primary Care Unavailable Jopperi, All Consulting Unavailable Yisel Forman Attending Unavailable Camden Mccormick Attending Unavailable Burger, Camden Referring Unavailable Burger, Camden Primary Care Unavailable Jopperi, All Admitting Unavailable Jopperi, All Referring Unavailable Brent Prasad D.O. Consulting Unavailable Paintsil, Kegley Attending Unavailable Jopperi, All Admitting Unavailable Jopperi, All Referring Unavailable Burger, Camden Primary Care Unavailable Jopperi, All Consulting Unavailable Jopperi, All Attending Unavailable Jopperi, All Admitting Unavailable White, Jo Attending Unavailable Jopperi, All Referring Unavailable Burger, Camden Primary Care Unavailable White, Jo Consulting Unavailable Jopperi, All Admitting Unavailable White, Oj Attending Unavailable Jopperi, All Referring Unavailable Burger, Camden Primary Care Unavailable White, Jo Consulting Unavailable Jopperi, All Admitting Unavailable Brent Brown, D.O. Attending Unavailable Jopperi, All Referring Unavailable Burger, Camden Primary Care Unavailable Brent Brown, D.O. Consulting Unavailable White, Jo Consulting Unavailable Jopperi, All Admitting Unavailable White, Jo Attending Unavailable Jopperi, All Referring Unavailable Burger, Camden Primary Care Unavailable Brent Osmar, D.O. Consulting Unavailable White, Jo Consulting Unavailable Jopperi, All Admitting Unavailable White, Jo Attending Unavailable Jopperi, All Referring Unavailable Burger, Camden Primary Care Unavailable Brent Brown, D.O. Consulting Unavailable White, Jo Consulting Unavailable Jopperi, All Admitting Unavailable Brent Brown, D.O. Attending Unavailable Jopperi, All Referring Unavailable Burger, Camden Primary Care Unavailable Brent Prasad D.O. Consulting Unavailable White, Jo Consulting Unavailable Jopperi, All Admitting Unavailable White, Jo Attending Unavailable Jopperi, All Referring Unavailable Burger, Camden Primary Care Unavailable Kaden AlejandreO. Consulting Unavailable White, Jo Consulting Unavailable Jopperi, All Admitting Unavailable Paintsil, Kegley Attending Unavailable Jopperi, All Referring Unavailable Burger, Camden Primary Care Unavailable Debi Alejandre.O. Consulting Unavailable Paintsil, Kegley Consulting Unavailable Jopperi, All Admitting Unavailable Paintsil, Kegley Attending Unavailable Jopperi, All Referring Unavailable Burger, Camden Primary Care Unavailable Kaden AlejandreO. Consulting Unavailable Paintsil, Kegley Consulting Unavailable Marylu Howell Attending Unavailable Burger, Camden Referring Unavailable Burger, Camden Primary Care Unavailable Ross Bailey Attending Unavailable Burger, Camden Primary Care Unavailable White, Jo Admitting Unavailable Ashelfah, Ghasem Attending Unavailable Burger, Camden Primary Care Unavailable White, Jo Attending Unavailable White, Jo Admitting Unavailable Burger, Camden Primary Care Unavailable Roldan Caro Consulting Unavailable Roldan Caro Attending Unavailable White, Jo Admitting Unavailable Burger, Camden Primary Care Unavailable Roldan Caro Consulting Unavailable Roldan Caro Attending Unavailable White, Jo Admitting Unavailable Burger, Camden Primary Care Unavailable Ashelfah, Ghasem Consulting Unavailable Ashelfah, Ghasem Attending Unavailable Burger, Camden Primary Care Unavailable Jopperi, All Admitting Unavailable Paintsil, Kegley Attending Unavailable Jose Manuel Leigh Consulting Unavailable Princessispatash, Camden Consulting Unavailable Jopperi, All Admitting Unavailable Jopperi, All Attending Unavailable Burger, Camden Primary Care Unavailable Jopperi, All Consulting Unavailable Jopperi, All Admitting Unavailable Jose Manuel Leigh Attending Unavailable Burger, Camden Primary Care Unavailable Jose Manuel Leigh Consulting Unavailable Camden Mccormick Consulting Unavailable Paintsil, Kegley Consulting Unavailable Jopperi, All Admitting Unavailable Burger, Camden Primary Care Unavailable Jose Manuel Leigh Consulting Unavailable Paintsil, Kegley Attending Unavailable Camden Mccormick Consulting Unavailable Paintsil, Kegley Consulting Unavailable Jopperi, All Admitting Unavailable Ross Tobar Attending Unavailable Camden Burger Primary Care Unavailable Calabretta, Jose Manuel Consulting Unavailable Moodispaw, Camden Consulting Unavailable Paintsil, Kegley Consulting Unavailable Jopperi, All Admitting Unavailable Moodispaw, Camden Attending Unavailable Camden Burger Primary Care Unavailable Calabretta, Jose Manuel Consulting Unavailable Moodispaw, Camden Consulting Unavailable Paintsil, Kegley Consulting Unavailable Jopperi, All Admitting Unavailable Brian Hinojosa Attending Unavailable Tao, Camden Primary Care Unavailable Calabretta, Jose Manuel Consulting Unavailable Moodispaw, Camden Consulting Unavailable Paintsil, Kegley Consulting Unavailable Jokatieeri, All Admitting Unavailable Ross Tobar Attending Unavailable Tao, Camden Primary Care Unavailable Calabretta, Jose Manuel Consulting Unavailable Moodispaw, Camden Consulting Unavailable Paintsil, Kegley Consulting Unavailable Jopperi, All Admitting Unavailable Camden Burger Primary Care Unavailable Calabrralph, Jose Manuel Consulting Unavailable Paintsil, Kegley Attending Unavailable Moodispaw, Camden Consulting Unavailable Paintsil, Kegley Consulting Unavailable Vijaya, Lan Attending Unavailable Jo Esposito Referring Unavailable Calabrralph, Jose Manuel Attending Unavailable SHANE PITTS Attending Unavailable SHANE PITTS Attending Unavailable SHANE PITTS Referring Unavailable SHANE PITTS Referring Unavailable SHANE PITTS Referring Unavailable SHANE PITTS Attending Unavailable IMCA Referring Unavailable SHANE PITTS Attending Unavailable PROBLEMS PROBLEMS DATE TYPE CONDITION / CODE ATTENDING STATUS SOURCE Unknown M79.606 - Pain in leg, Paintsil, Kegley Active [facility] unspecified / Community M79.606(ICD-10) Hospital Repository Unknown R94.31 - Abnormal Vijaya, Eureka Active [facility] [facility] electrocardiogram Community [ECG] [EKG] / Hospital R94.31(ICD-10) Repository Unknown I48.2 - Chronic atrial Vijaya, Eureka Active [facility] [facility] fibrillation / Community I48.2(ICD-10) Hospital Repository Unknown R00.1 - Bradycardia, Vijaya, Lan Active [facility] unspecified / Community R00.1(ICD-10) Hospital Repository Unknown G89.29 - Other chronic White, Jo Active [place] [facility] pain / G89.29(ICD-10) [facility] Repository Unknown J44.9 - Chronic Moodispaw, Active [place] [facility] obstructive pulmonary [facility] disease, unspecified / Hospital J44.9(ICD-10) Repository Unknown I10 - Essential Moodispaw, Active [place] [facility] (primary) hypertension [facility] / I10(ICD-10) Hospital Repository Unknown R55 - Syncope and Moodispaw, Active [place] [facility] collapse / R55(ICD-10) [facility] Hospital Repository Unknown E78.5 - Moodispaw, Active [facility] [place] [facility] Hyperlipidemia, [facility] unspecified / Hospital E78.5(ICD-10) Repository Unknown G47.33 - Obstructive Howell, Active [facility] sleep apnea (adult) [facility] (pediatric[facility] / Hospital G47.33(ICD-10) Repository Unknown R07.89 - Other chest Vijaya, Eureka Active [facility] pain / R07.89(ICD-10) [facility] Repository Unknown H53.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 Community unspecified, Hospital uncomplicated / Repository F17.200(ICD-10) Unknown G47.10 - Hypersomnia, Brent Osmar, Active [facility] unspecified / D.O. 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 / I25.10(ICD-10) Admitting Unknown / UNK(Unknown) HONG, Active [facility] 8 diagnosis [facility] Repository Unknown J96.21 - Acute and Katia, Active [facility] [place] [facility] chronic respiratory [facility] failure with hypoxia / Hospital J96.21(ICD-10) Repository PROCEDURES PROCEDURES No Procedure Records FoundRESULTS RESULTS BEDSIDE GLUCOSE Collected: 02/02/2018 Status: F Source: [place] 11:51 PM [facility] REPOSITORY TYPE CODE TESTS RESULT OUT OF REFERENCE UNITS RANGE LAB L501.080 70-110 mg/dL High BEDSIDE GLU 119 Result Comment: MANAGEMENT OF PATIENT CARE PER NURSING PROTOCOL Performed By: #### L501.080 #### [facility] Laboratory Point of Care [address] [place] [address] HISTORY AND PHYSICAL Observed: 02/02/2018 Status: F Source: [place] EXAM 9:10 PM [facility] REPOSITORY [facility] Medical Records Department [address] [place] [address] History and Physical 02/02/18 1722 MR#: [id number] Acct: [id number] Name: DARYA LARKIN Rep #: [id number] : 1955 62 From: Brian SORIA PCP: Camden Burger Status: ADM IN Y Location: [place] [address] ADDENDUM by Lemuel White DO on 02/02/18 at 2109 Code Visit Was seen and examined today independently of Brian Hinojosa, she was admitted to the hospitalist service at the request of general surgery due to problems controlling the patient's heart rate and blood sugar in amatory care this morning before her scheduled cholecystectomy. Patient had a blood sugar of 59 and it was noted that her heart rate showed atrial fibrillation-this is chronic for the patient-but the rate was elevated and an EKG was obtained which showed nonspecific ST-T wave changes over the anterior precordial leads and a combination of all these issues caused a cancellation of the patient's surgery this afternoon. Patient was then admitted to PCU for stabilization and possible surgery tomorrow. Patient denied any chest pain, shortness of breath, fever, or chills. Physical exam: On examination she appeared in good health and spirits. Vital signs as documented. Skin warm and dry and without overt rashes. Neck without JVD. Lungs clear. Heart exam notable for irregular rhythm, and absence of murmurs or rubs. Abdomen unremarkable and without evidence of organomegaly, masses, or abdominal aortic enlargement. Extremities nonedematous. Neuro: Cranial nerves II through XII are grossly intact, no focal motor deficits were noted. Psych: Patient was alert and oriented x3, she did not appear depressed or anxious. Patient will be admitted to PCU for atrial fibrillation with poorly controlled ventricular response, chronic cholecystitis, and hypoglycemia. Blood sugars will be monitored, IV fluids will be given, and her rate limiting medications were increased. The plan is for the patient to have surgery tomorrow if she is stable. I have reviewed Brian Ashish's history and physical including his medical plan of care and endorse it Inpatient E AND M: [id number] Init Hosp L3 02/02/182109 <Electronically signed by Lemuel White DO> Date Lemuel White DO cc: YANG Hinojosa; Camden Burger; Lemuel White DO; Camden Burger MD * Signed Problem List (1) Cholecystitis Status: Acute (2) ABDULLAHI (obstructive sleep apnea) Status: Chronic (3) Anemia Status: Chronic Comment: Normocytic (4) HTN (hypertension) Status: Chronic Qualifiers: (5) Morbid obesity with BMI of 40.0-44.9, adult Status: Chronic (6) COPD (chronic obstructive pulmonary disease) Status: Chronic Qualifiers: (7) Chronic pain Status: Chronic Qualifiers: (8) Chronic atrial fibrillation Status: Chronic (9) Chronic hypoxemic respiratory failure Status: Chronic Comment: non-compliant with oxygen (10) Hyperlipemia Status: Chronic Qualifiers: (11) Type 2 diabetes mellitus Status: Chronic Qualifiers: Comment: uncontrolled (12) GERD (gastroesophageal reflux disease) Status: Chronic Qualifiers: (13) Anxiety Status: Chronic History of Present Illness Date of Admission: 02/02/18 Chief Complaint: RUQ pain The patient is a 62 year old F with past medical history of chronic hypoxic respiratory failure, chronic abdominal pain, atrial fibrillation, chronic, type 2 diabetes, hypertension, GERD, CAD, systolic congestive heart failure and cardiomyopathy, obstructive sleep apnea, cognitive and behavioral issues, unspecified who was recently in the hospital with chronic atrial fibrillation with bradycardia induced by digoxin, who presented to the hospital for elective gallbladder removal for chronic abdominal pain. In preop she had tachycardia with a rate in the 120s and low blood sugar at 59 and her surgery was canceled. She was given additional propranolol and d5 and these improved. She was sent to PCU for monitoring overnight and will have surgery in the AM. She is currently resting in bed no mild RUQ pain at rest, no SOB, no palpitation, no nausea. Last BM was today - normal. No fever or chills. [] Past Medical History Past Medical History (Chronic Problems): Chronic Problems (Last Reviewed 01/22/18 @ 13:02 by Shanel Ceballos) Abdominal pain (Chronic) ABDULLAHI (obstructive sleep apnea) (Chronic) Tobacco dependence due to cigarettes (Chronic) Non-compliance (Chronic) Hypersomnia (Chronic) Anemia (Chronic) Normocytic HTN (hypertension) (Chronic) Morbid obesity with BMI of 40.0-44.9, adult (Chronic) COPD (chronic obstructive pulmonary disease) (Chronic) Chronic pain (Chronic) Chronic atrial fibrillation (Chronic) Chronic hypoxemic respiratory failure (Chronic) non-compliant with oxygen Hyperlipemia (Chronic) Type 2 diabetes mellitus (Chronic) uncontrolled GERD (gastroesophageal reflux disease) (Chronic) Anxiety (Chronic) Insomnia (Chronic) Medical History: Medical History (Last Reviewed 01/22/18 @ 13:02 by Shanel Ceballos) Hypersomnia (Chronic) G47.10 Anemia (Chronic) D64.9 Normocytic HTN (hypertension) (Chronic) I10 Morbid obesity with BMI of 40.0-44.9, adult (Chronic) E66.01, Z68.41 COPD (chronic obstructive pulmonary disease) (Acute) J44.9 Chronic pain (Chronic) G89.29 Chronic atrial fibrillation (Chronic) I48.2 Chronic hypoxemic respiratory failure (Chronic) J96.11 non-compliant with oxygen Hyperlipemia (Chronic) E78.5 Type 2 diabetes mellitus (Chronic) E11.9 uncontrolled GERD (gastroesophageal reflux disease) (Chronic) K21.9 Anxiety (Chronic) F41.9 Insomnia (Chronic) G47.00 Osteoporosis M81.0 Cardiomyopathy (Ruled-out) I42.9 EF in Oct 2015 45-50 Left ankle pain (Inactive) M25.572 Non-compliance (Inactive) Z91.19 withn follow up with pulmonary Allergies venom-honey bee [bee venom (honey bee)] Allergy (Verified 02/01/18 13:17) Swelling levofloxacin [From Levaquin] Adverse Reaction (Verified 02/01/18 13:17) Nausea oxycodone HCl [From Percocet] Adverse Reaction (Verified 02/01/18 13:17) Nausea Penicillins Adverse Reaction (Verified 02/01/18 13:17) Nausea/Vom/Diarrhea Home Medications: Ambulatory Orders Medication Instructions Recorded Albuterol Aerosols [Ventolin 2.5 mg INHALATION 4X/DAY 05/12/17 Aerosols] Atorvastatin Calcium [Lipitor] 40 mg PO QHS 05/12/17 Budesonide/Formoterol 160/4.5 2 puff INHALATION BID 05/12/17 Surgical History: Surgical History (Last Reviewed 01/22/18 @ 13:02 by Shanel Ceballos) Cataract extraction status Z98.49 History of lumbar surgery Z98.890 History of tonsillectomy and adenoidectomy Z98.890 History of total hysterectomy Z90.710 Surgical History: hysterectomy, tonsillectomy, - - Lumbar surgery. 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 Sibling Family History: Family History (Last Reviewed 01/22/18 @ 13:02 by Shanel Ceballos) Sister Arthritis Diabetes Father Cancer Aunt Diabetes History Items: Asthma, COPD, Hypertension Review of Systems Constitutional: Denies: Chills, Fever, Weight Change HEENT: Denies: Head Aches, Sinus Congestion, Sinus Drainage Cardiovascular: Denies: Chest Pain, Palpitations Respiratory: Denies: Cough, Shortness of breath at rest, Sputum production Gastrointestinal: Reports: Abdominal Pain. Denies: Nausea, Vomiting Genitourinary: Denies: Dysuria Musculoskeletal: Denies: Joint Pain, Joint Tenderness Skin: Denies: Rash, Wounds Neurological: Denies: Numbness, Tingling, Focal weakness Psychiatric: Denies: Anxiety, Depression, Homicidal Ideations, Suicidal Ideations Hematologic/ Lymphatic: Denies: Easy Bruising, Easy Bleeding VTE Information - Inpt Only VTE Present on Admission: No VTE Mechan Device Prophylaxis: SCD's VTE Pharm Prophylaxis ordered?: No Patient Problems: Active and Suspected Problems (Last Reviewed 01/22/18 @ 13:02 by Shanel Ceballos) Cholecystitis (Acute) - Physical Exam General: Alert, Oriented x3, Cooperative HEENT: Atraumatic, PERRLA, EOMI, Normocephalic Neck: Supple, No JVD, Negative Carotid Bruits Lungs: Clear to auscultation, Normal air movement Cardiovascular: Regular rate, No murmurs Abdomen: Bowel Sounds Present, Soft, Guarding, Tender - Right upper quadrant tenderness Extremities: No edema, Capillary Refill Less than 3 Seconds Skin: No rashes, No breakdown Musculoskeletal: No Tenderness to Palpation of Joints or Extremities Neurological: Cranial nerves II-XII grossly intact Psych/Mental Status: Normal Affect, Appropriate, Alert and oriented to time, place, person, mood and affect Vital Signs Temp Pulse Resp BP Pulse Ox 98.4 F 127 H 18 103/65 90 02/02/18 12:50 02/02/18 12:50 02/02/18 12:50 02/02/18 12:50 02/02/18 12:50 Oxygen Delivery Method Room Air Weight: 454 lb 2.436 oz Body Mass Index (BMI) 85.8 Finger Stick Blood Glucose 364 Laboratory Tests Past 24 Hrs WBC 8.7 RBC 4.98 Hgb 13.3 Hct 43.6 MCV 87.6 MCH 26.7 L MCHC 30.5 L RDW 18.3 H RDW Differential 59.1 H POC Glucose POC Glucose 135 H 59 L Assessment/Plan All Active Problems (Last Reviewed 01/22/18 @ 13:02 by Shanel Ceballos) Bradycardia (Acute) Digoxin toxicity (Acute) Cholecystitis (Acute) Acute encephalopathy (Acute) Acute kidney injury (Acute) HCAP (healthcare-associated pneumonia) (Acute) Acute and chronic respiratory failure with hypoxia (Resolved) Acute bronchitis due to human metapneumovirus (Resolved) Atrial fibrillation with RVR (Resolved) COPD with acute exacerbation (Resolved) Gram-negative pneumonia (Resolved) Syncope (Resolved) Cardiomyopathy (Ruled-out) 1. AFib with RVR - monitor overnight. Increase propranolol to 20 BID. RVR resolved. Recently dig discontinued for dig toxicity and bradycardia. Hold xarelto. 2. Hypoglycemia - resolved. Maintain d5 ringers. Clears. NPO after midnight for surgery. 3. DMt2 - SSI only given #2. 4. Chronic RUQ pain - elective Kaye per Dr. Leigh - tomorrow. 5. COPD with chronic hypoxic respiratory failure - no exacerbation - prn aerosols. IS post op. 6. GERD - PPI 7. CAD, hx systolic HF, CM - home meds 8. Anxiety/Behavioral and cognitive issues - home meds. DVT ppx: SCDs This patient was seen by Brian Hinojosa PA-C under the supervision of Doctor Christopher. 02/02/18 1741 <Electronically signed by Brian SORIA> Date Brian SORIA 02/02/18 1935<Electronically signed by Lemuel White DO> Cosigner Signature: Date (if applicable) Lemuel White DO CC: YANG Hinojosa; Camden Burger; Lemuel White DO; Camden Burger MD Signed BEDSIDE GLUCOSE Collected: 02/02/2018 Status: F Source: [place] 2:36 PM [facility] [place] REPOSITORY TYPE CODE TESTS RESULT OUT OF REFERENCE UNITS RANGE LAB L501.080 70-110 mg/dL High BEDSIDE GLU 135 Result Comment: MANAGEMENT OF PATIENT CARE PER NURSING PROTOCOL Performed By: #### L501.080 #### [facility] Point of Care [address] [place] [address] BEDSIDE GLUCOSE Collected: 02/02/2018 Status: F Source: [place] 12:48 PM [facility] REPOSITORY TYPE CODE TESTS RESULT OUT OF REFERENCE UNITS RANGE LAB L501.080 70-110 mg/dL Low BEDSIDE GLU 59 Result Comment: MANAGEMENT OF PATIENT CARE PER NURSING PROTOCOL Performed By: #### L501.080 #### [facility] Point of Care [address] [place] [address] CBC-COMPLETE BLOOD CNT Collected: 02/02/2018 Status: F Source: [place] NO DIFF 12:34 PM [facility] [place] REPOSITORY Order Comment: Reason for Laboratory Test preop TYPE CODE TESTS RESULT OUT OF RANGE REFERENCE UNITS LAB L100.1000 4.4-11.0 K/mm3 Normal WBC 8.7 LAB L100.1200 4.2-5.4 M/mm3 Normal RBC 4.98 LAB L100.1300 12.0-15.0 g/dl Normal HGB 13.3 LAB L100.1400 37-47 % Normal HCT 43.6 LAB L100.1500 81-99 fL Normal MCV 87.6 LAB L100.1600 27.0-32.0 pg Low MCH 26.7 LAB L100.1700 32-36 g/gl Low MCHC 30.5 LAB L100.1810 11.6-14.6 % High RDW CV 18.3 LAB L100.1820 35.1-43.9 fl High RDW SD 59.1 LAB L100.1900 150-450 K/mm3 Normal PLT 210 LAB L100.2000 6.2-12.0 fl Normal MPV 11.5 Performed By: #### L100.0500, L100.4500 #### [facility] [address] [place], [place], [id number] DIFFERENTIAL COMMENT Collected: 02/02/2018 Status: F Source: [place] 12:34 PM [facility] REPOSITORY Order Comment: Reason for Laboratory Test preop TYPE CODE TESTS RESULT OUT OF RANGE REFERENCE UNITS LAB L100.4500 Normal SMEAR COMMENT SCANNED Result Comment: ADEQUATE PLATELETS Performed By: #### L100.0500, L100.4500 #### [facility] [address] [place], [address] HEMOGLOBIN A1C Collected: 02/02/2018 Status: F Source: [place] 12:34 PM [facility] REPOSITORY Order Comment: Reason for Laboratory Test preop TYPE CODE TESTS RESULT OUT OF RANGE REFERENCE UNITS LAB L501.9985 4.2-6.3 % High HGB A1C 8.3 Performed By: #### L501.9985 #### [facility] [address] [place], [address] BASIC METABOLIC Collected: 02/02/2018 Status: F Source: [place] PROFILE (BMP) 12:34 PM [facility] REPOSITORY Order Comment: Reason for Laboratory Test preop TYPE CODE TESTS RESULT OUT OF RANGE REFERENCE UNITS LAB L501.0100 74-106 mg/dL Low GLU 62 Result Comment: Please note revised GLUCOSE reference range effective 2017. LAB L501.1000 7-18 mg/dL Normal BUN 16 LAB L501.1100 0.55-1.02 mg/dL Normal CREAT,SERUM 0.76 Result Comment: The validity of the calculated GFR AND GFRAA in patients over 70 years has not been determined. Clinical correlation is essential. LAB L501.1110 >60 mL/min Normal EST GFR 81 Result Comment: Non- GFR Calc LAB L501.1115 >60 mL/min Normal EST GFR - AA 99 Result Comment: GFR Calc LAB L501.1255 ml/min Normal Estimated CRCL 57.92 LAB L501.1300 10-20 RATIO High BUN/CRE 21.0 LAB L501.2200 8.5-10 mg/dL Normal .1 CA 9.0 LAB L501.5300 136-14 mmol/L Normal 5 NA 139 LAB L501.5600 3.5-5. mmol/L Low 1 K 3.3 LAB L501.5900 98-107 mmol/L Normal CL 100 LAB L501.6100 21.0-3 mmol/L Normal 2.0 CO2 27.0 LAB L501.6200 5-15 Normal GAP 12 Performed By: #### L500.2500 #### [facility] [address] [place], [address] SURGERY VISIT REPORT Observed: 01/26/2018 Status: F Source: [place] 1:34 PM [facility] REPOSITORY [facility] [address] [place] [address] OFFICE VISIT Date of Service: 01/22/18 MR#: [id number] Acct: [id number] Name: DARYA LARKIN Rep #: [id number] : 1955 Provider: Jose Manuel Leigh MD Age/Sex: 62/F Location: [facility] Status: Signed Intake Vital Signs01/22/18 Body Mass Index (BMI) 36.0 01/22/18 Blood Pressure 113/74 01/22/18 Blood Pressure Location Lt brachial 01/22/18 Blood Pressure Position Supine Intake Visit Reasons: Abdominal Pain Chief Complaint: None Is patient in pain?: Yes (Abdominal ) Pain scale (1-10): 10 Allergies venom-honey bee [bee venom (honey bee)] Allergy (Verified 01/22/18 13:03) Swelling levofloxacin [From Levaquin] Adverse Reaction (Verified 01/22/18 13:03) Nausea oxycodone HCl [From Percocet] Adverse Reaction (Verified 01/22/18 13:03) Nausea Penicillins Adverse Reaction (Verified 01/22/18 13:03) Nausea/Vom/Diarrhea Medications Albuterol Aerosols [Ventolin Aerosols] 2.5 mg INHALATION Q4H PRN PRN 05/12/17 [History Confirmed 01/22/18] Atorvastatin Calcium [Lipitor] 40 mg PO QHS 05/12/17 [History Confirmed 01/22/18] Budesonide/Formoterol 160/4.5 [Symbicort 160/4.5 Mcg Inhaler (SP)] 2 puff INHALATION BID 05/12/17 [History Confirmed 01/22/18] Bupropion HCl [Bupropion HCl Sr] 150 mg PO BID 05/12/17 [History Confirmed 01/22/18] Buspirone HCl 10 mg PO TID 05/12/17 [History Confirmed 01/22/18] Glucagon,Human Recombinant [Glucagon Emergency Kit] 1 mg IM PRN PRN 05/12/17 [History Confirmed 01/22/18] Ipratropium/Albuterol Sulfate [Duoneb] 3 ml INHALATION Q6H PRN 05/12/17 [History Confirmed 01/22/18] Propranolol HCl [Inderal (Beta Lou)] 10 mg PO BID 05/12/17 [History Confirmed 01/22/18] Sennosides/Docusate Sodium [Senna-Docusate Sodium Tablet] 2 tab PO DAILY PRN PRN 05/12/17 [History Confirmed 01/22/18] Mag Hydrox/Al Hydrox/Simeth [Mylanta II] 30 ml PO Q6H PRN PRN 08/11/17 [History Confirmed 01/22/18] docusate sodium 100 mg capsule 100 mg PO QHS 09/01/17 [History Confirmed 01/22/18] Rivaroxaban [Xarelto] 20 mg PO DAILY #0 11/03/17 [Rx Confirmed 01/22/18] Calcium Carbonate [Tums] 500 mg PO Q6H PRN PRN 11/20/17 [History Confirmed 01/22/18] Insulin Lispro [Humalog KwikPen] See Protocol SUBCUT 4X/DAYCM insuln.pen 11/24/17 [Rx Confirmed 01/22/18] Benzonatate [Tessalon Perle] 100 mg PO TID PRN PRN 12/23/17 [History Confirmed 01/22/18] Bisacodyl [Dulcolax] 10 mg RECTAL DAILY 12/23/17 [History Confirmed 01/22/18] Duloxetine HCl 60 mg PO DAILY 12/23/17 [History Confirmed 01/22/18] Furosemide [Lasix] 40 mg PO BIDLX 12/23/17 [History Confirmed 01/22/18] Gabapentin [Neurontin] 100 mg PO TIDCM 12/23/17 [History Confirmed 01/22/18] Guaifenesin [Mucinex] 1,200 mg PO BID PRN 12/23/17 [History Confirmed 01/22/18] Loperamide [Imodium] 2 mg PO PRN PRN 12/23/17 [History Confirmed 01/22/18] Polyethylene Glycol 3350 [Miralax] 17 gm PO DAILY 12/23/17 [History Confirmed 01/22/18] Acetaminophen 650 mg PO PRN PRN 12/25/17 [History Confirmed 01/22/18] Insulin Glargine,Hum.rec.anlog [Basaglar Kwikpen U-100] 20 unit SQ QHS 12/25/17 [History Confirmed 01/22/18] Magnesium Hydroxide [Milk of Magnesia] 30 ml PO DAILY 12/25/17 [History Confirmed 01/22/18] Ondansetron HCl [Zofran] 4 mg PO Q6H PRN PRN 12/25/17 [History Confirmed 01/22/18] Lactobacillus Acidophilus [Acidophilus] 1 cap PO DAILY 01/14/18 [History Confirmed 01/22/18] Lactose-Reduced Food [Boost Breeze] 237 ml PO TID 01/14/18 [History Confirmed 01/22/18] Albuterol Aerosols [Ventolin Aerosols] 2.5 mg INHALATION Q6HWA.RT vial.neb. 01/17/18 [Rx Confirmed 01/22/18] Pantoprazole Sodium [Protonix] 40 mg PO DAILY #0 tab 01/17/18 [Rx Confirmed 01/22/18] Prednisone 10 mg PO UD #26 tab 01/17/18 [Rx Confirmed 01/22/18] PFSH Medical History Hypersomnia (Chronic) Anemia (Chronic) HTN (hypertension) (Chronic) Morbid obesity with BMI of 40.0-44.9, adult (Chronic) COPD (chronic obstructive pulmonary disease) (Acute) Chronic pain (Chronic) Chronic atrial fibrillation (Chronic) Chronic hypoxemic respiratory failure (Chronic) Hyperlipemia (Chronic) Type 2 diabetes mellitus (Chronic) GERD (gastroesophageal reflux disease) (Chronic) Anxiety (Chronic) Insomnia (Chronic) Osteoporosis (Chronic) Cardiomyopathy (Ruled-out) Left ankle pain (Inactive) Non-compliance (Inactive) Surgical History Cataract extraction status (Resolved) History of lumbar surgery (Resolved) History of tonsillectomy and adenoidectomy (Resolved) History of total hysterectomy (Resolved) Family History Sister Arthritis Diabetes Father Cancer throat Aunt Diabetes Social History Smoking Status: Current every day smoker second hand exposure: Yes alcohol intake: never substance use type: does not use caffeine: Yes Type: coffee what type of physical activity do you participate in: none HPI HPI HPI: DARYA LARKIN, is a 62 F who presents to the office today for follow-up. The patient was recently admitted for digoxin toxicity and at that time she had an ultrasound which showed sludge in the gallbladder and mild thickening. The patient's long-term notes that she has had very poor p.o. intake and she is complaining of right upper quadrant pain. She says that eating hurts. She also says she is getting some nausea. ROS General General: Yes appetite; no weight change, fatigue, colon cancer, breast cancer or weakness HEENT HEENT: No difficulty swallowing, eye injury, eye surgery, swollen glands or hoarseness Endo Endocrine: No thyroid disease, diabetes mellitus, thyroid cancer, Hair loss, heat intolerance or cold intolerance Skin Skin: No rash or changing moles Breast Breast: No left breast lump, right breast lump, nipple discharge, breast pain, abnormal mammogram, abnormal US or breast enlargement Musc Musculoskeletal: No back problems, arthritis, rheumatoid arthritis, gout or joint pain Cardio Cardiovascular: No murmur, pacemaker, heart disease, atrial fibrillation, high blood pressure, heart attack, heart stent, palpitations, shortness of breat with exertion or chest pain Psych Psychiatric: No depression, anxiety or hearing voices Resp Respiratory: No shortness of breath, No sleep apnea, No cough, No COPD, No asthma, No emphysema, No wheezing Gastro Gastrointestinal: Yes abdominal pain, No nausea or vomiting, No diarrhea, No constipation, No blood in stool, No acid reflux, No hemorrhoids, No ulcers, No gallbladder problem, No black,tarry stools Rito Hematologic: No blood thinners, No blood disorders, No bleeding, No anemia, No blood clots Neuro Neurologic: No system reviewed and no additional complaints, except as docu, No as per HPI, No abnormal walking, No abnormal hearing, No abnormal movements, No abnormal speech, No behavioral changes, No burning sensations, No confusion, No seizure-like activity, No unsteadiness, No dizziness, No localized weakness, No frequent falls, No headache(s), No lack of coordination, No loss of vision, No memory loss, No numbness, No other visual disturbances, No radiating pain, No restless legs, No sensory deficit, No fainting, No tingling, No tremor(s), No weakness, No other Exam Const General: cooperative Orientation: alert, oriented x3 Chest Breast Palpation: No nipple discharge Resp Effort AND Inspection: normal respiratory effort Auscultation: clear to auscultation bilaterally Cardio Rate: regular rate Rhythm: regular rhythm Heart Sounds: no murmurs GI Inspection: non-distended Palpation: soft, tender in the RUQ Assessment AND Plan Problems 1. Calculus of gallbladder with chronic cholecystitis without obstruction K80.10 Plan 1. The patient reports that she is having chronic right upper quadrant pain which is worse with eating. She had a recent ultrasound which showed sludge in the gallbladder as well as thickening of the gallbladder wall. 2. I discussed the procedure in detail with the patient. I discussed the risks, benefits, and alternatives of the procedure. I discussed the risks including but not limited to bleeding, infection, injury to surrounding organs such as the liver, bile duct, bowels. I did discuss the possibility of having to convert to an open procedure as well as the possibility that if any injuries occurred this may necessitate further surgery at a tertiary care center. 3. 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 Jose Manuel Leigh MD Pager: [facility] [address] [place] [address], [address] [place] [address] Office: Coding Level of Care Code Off vis,est,level 3 Diagnoses Calculus of gallbladder with chronic cholecystitis without obstruction K80.10 Cholelithiasis location: gallbladder Cholecystitis presence: with cholecystitis Cholecystitis acuity: chronic Biliary obstruction: without biliary obstruction 01/26/18 1334 <Electronically signed by Jose Manuel Leigh MD> Date Jose Manuel Leigh MD Cosigner Signature: Date (if applicable) CC: 12 LEAD ELECTROCARDIOGRAM Observed: 01/21/2018 Status: F Source: [place] 2:19 PM [facility] REPOSITORY [facility] [address] [place] [address] 12 Lead EKG 01/16/18 0555 MR#: [id number] Acct: [id number] Name: DARYA LARKIN Rep #: [id number] : 1955 62 From: Camden Mccormick MD Attending Dr: Radha Hopson MD Status: DIS IN Ordering Dr: Camden Mccormick MD Date: 01/16/18 Location: [facility] Sex: F C Admitted: 01/14/18 Test Reason : AM EKG Blood Pressure : / mmHG Vent. Rate : 054 BPM Atrial Rate : 050 BPM P-R Int : 000 ms QRS Dur : 094 ms QT Int : 374 ms P-R-T Axes : 000 064 -73 degrees QTc Int : 354 ms Atrial fibrillation with slow ventricular response Incomplete right bundle branch block Nonspecific T wave abnormality Abnormal ECG Confirmed by SPENCER DELGADO, CAMDEN ([id number]), photography editor DIANA GALVEZ ([id number]) on 01/21/2018 2:18:45 PM Referred By: DR HOPSON Confirmed By:CAMDEN MCCORMICK MD 01/21/18 141 Date Camden Mccormick MD CC: Camden Burger; Radha Hopson MD; Camden Mccormick MD; Camden Burger MD Signed 12 LEAD ELECTROCARDIOGRAM Observed: 01/19/2018 Status: F Source: [place] 3:47 PM [facility] REPOSITORY [facility] [address] [place] [address] 12 Lead EKG 01/15/18 0732 MR#: [id number] Acct: [id number] Name: DARYA LARKIN Rep #: [id number] : 1955 62 From: Camden Mccormick MD Attending Dr: Radha Hopson MD Status: DIS IN Ordering Dr: All Karimi DO Date: 01/15/18 Location: [facility] Sex: F C Admitted: 01/14/18 Test Reason : Blood Pressure : / mmHG Vent. Rate : 057 BPM Atrial Rate : 147 BPM P-R Int : 000 ms QRS Dur : 102 ms QT Int : 400 ms P-R-T Axes : 000 061 267 degrees QTc Int : 389 ms Atrial fibrillation with slow ventricular response Incomplete right bundle branch block Nonspecific ST and T wave abnormality Abnormal ECG Confirmed by CAMDEN MCCORMICK MD ([id number]), photography editor DIANA GALVEZ ([id number]) on 01/19/2018 3:46:47 PM Referred By: RASHAAD Confirmed By:CAMDEN MCCORMICK MD 01/19/18 1546 Date Camden Mccormick MD CC: Camden Burger; Radha Hopson MD; All Karimi DO; Camden Burger MD Signed 12 LEAD ELECTROCARDIOGRAM Observed: 01/19/2018 Status: F Source: [place] 3:32 PM [facility] REPOSITORY [facility] [address] [place] [id number] 12 Lead EKG 01/14/18 1118 MR#: [id number] Acct: [id number] Name: DARYA LARKIN Rep #: [id number] : 1955 62 From: Camden Mccormick MD Attending Dr: Radha Hopson MD Status: DIS IN Ordering Dr: Ross Bailey DO Date: 01/14/18 Location: [facility] Sex: F C Admitted: 01/14/18 Test Reason : SOB Blood Pressure : / mmHG Vent. Rate : 045 BPM Atrial Rate : 078 BPM P-R Int : 000 ms QRS Dur : 092 ms QT Int : 356 ms P-R-T Axes : 000 069 -42 degrees QTc Int : 307 ms Atrial fibrillation with slow ventricular response Incomplete right bundle branch block ST AND T wave abnormality, consider inferior ischemia ST AND T wave abnormality, consider anterior ischemia Abnormal ECG Confirmed by CAMDEN MCCORMICK MD ([id number]), photography editor DIANA GALVEZ ([id number]) on 01/19/2018 3:32:06 PM Referred By: ERNESTINE Confirmed By:CAMDEN MCCORMICK MD 01/19/18 1532 Date Camden Mccormick MD CC: Camden Burger; Radha Hopson MD; Ross Bailey DO; Camden Burger MD Signed TRANSFER TO EXTENDED Observed: 01/19/2018 Status: F Source: [place] [facility] 12:20 PM [facility] REPOSITORY [facility] Medical Records Department [address] [place] [address] Transfer to Extended Care MR#: [id number] Acct: [id number] Name: DARYA LARKIN Rep #: [id number] : 1955 62 From: Brian SORIA PCP: Camden Burger Status: DIS IN DARYA LARKIN [id number] (Patient) (Health Ins. Claim No.) (Day of Discharge to Facility) Certification of patient admission REQUIRED AT TIME OF ADMISSION. I CERTIFY THAT POST-HOSPITAL ECF SERVICES ARE REQUIRED TO BE GIVEN ON AN IN-PATIENT BASIS BECAUSE OF THE ABOVE NAMED PATIENT'S NEED FOR PRISON CARE ON A CONTINUING BASIS FOR THE CONDITION(S) FOR WHICH HE/SHE WAS RECEIVING IN-PATIENT HOSPITAL SERVICES PRIOR TO HIS/HER TRANSFER TO THE ECF. 01/17/18 1056 <Electronically signed by Brian SORIA> Date Brian SORIA ADDENDUM by YANG Hinojosa on 01/17/18 at 1428 Code Visit Please also follow up with general surgery, Dr. Leigh in 1-2 weeks. 01/17/18 1428 <Electronically signed by Brian SORIA> Date Brian Hinojosa cc: Camden Burger; Jose Manuel Leigh MD; Camden Mccormick MD; Camden Burger MD * Signed Addendum entered and electronically signed by YANG Guerra 01/17/18 14:28: Code Visit Please also follow up with general surgery, Dr. Leigh in 1-2 weeks. Original Note: - Diet 01/14/18 17:39 Diet: Cardiac: Calorie-Controlled Food consistency:: Regular Liquid Consistency:: Regular/Thin How many daily calories?: 1800 calorie - Routine Orders/Code Status Suppository Type: Dulcolax 10mg Suppository Frequency: Daily PRN O2 Frequency: Continuous Keep PO Greater than or Equal to (%): 89 Routine Lab Work: CBC - 3 days, BMP - 3 days Code Status: Full Code - Wound(s) intergluteal cleft Wound Type: open area within fold abd. folds Wound Type: Iva/ moist - Therapies Physical Therapy: Eval and Treat Occupational Therapy: Eval and Treat Speech Therapy: Eval and Treat - Problem/Diagnosis (1) Bradycardia Status: Acute Current Visit: Yes (2) Digoxin toxicity Status: Acute Current Visit: Yes (3) COPD (chronic obstructive pulmonary disease) Status: Acute Current Visit: No (4) Abdominal pain Status: Chronic Current Visit: No (5) Anemia Status: Chronic Comment: Normocytic Current Visit: No (6) Anxiety Status: Chronic Current Visit: No (7) Chronic atrial fibrillation Status: Chronic Current Visit: No (8) GERD (gastroesophageal reflux disease) Status: Chronic Current Visit: No (9) HTN (hypertension) Status: Chronic Current Visit: No (10) Hyperlipemia Status: Chronic Current Visit: No (11) ABDULLAHI (obstructive sleep apnea) Status: Chronic Current Visit: No (12) Tobacco dependence due to cigarettes Status: Chronic Current Visit: No (13) Type 2 diabetes mellitus Status: Chronic Comment: uncontrolled Current Visit: No - Allergies/Procedures Done in Hospital Allergies/Adverse Reactions: Allergies venom-honey bee [bee venom (honey bee)] Allergy (Verified 12/25/17 13:04) Swelling levofloxacin [From Levaquin] Adverse Reaction (Verified 12/25/17 13:04) Nausea oxycodone HCl [From Percocet] Adverse Reaction (Verified 12/25/17 13:04) Nausea Penicillins Adverse Reaction (Verified 12/25/17 13:04) Nausea/Vom/Diarrhea Procedures: 2-D Echocardiogram - Type of Care/Length of Stay Estimated LOS: More Than 30 Days Type of Care Needed: Intermediate Rehab Potential: Fair Prognosis: Fair - Additional Orders/Day of Discharge Day of Discharge: 01/17/18 - Dietary and Speech Recommendations Dietitian Recommendations/Changes: Will order ONS medpass d/t poor po intake. Rec GALLERY INTERN see pt re: c/o chewing/swallowing. - Follow Up Care Primary Care Physician: Camden Burger [Primary Care Provider] - Please follow up with your Primary Care Physician in: 1-2 weeks Please Follow Up With: Camden Mccormick MD When: 2 weeks 01/17/18 1056 <Electronically signed by Brian SORIA> Date Brian SORIA CC: Camden Burger; Jose Manuel Leigh MD; Camden Mccormick MD; Camden Burger MD Signed DISCHARGE SUMMARY Observed: 01/19/2018 Status: F Source: [place] 12:19 PM [facility] REPOSITORY [facility] Medical Records Department [address] [place] [address] Discharge Summary 01/17/18 1424 MR#: [id number] Acct: [id number] Name: DARYA LARKIN Rep #: [id number] : 1955 62 From: Brian SORIA PCP: Camden Burger Status: DIS IN Y Location: [facility] [id number] <Brian Hinojosa - Last Filed: 01/17/18 14:46> Discharge Date and Diagnosis Date of Admission: 01/14/18 Date of Discharge: 01/17/18 - Primary Discharge Diagnosis Bradycardia 2/2 digoxin toxicity Acute COPD exacerbation with chronic hypoxic respiratory failure Chronic Afib T2DM HTN GERD Chronic abdominal pain CAD with hx systolic HF and CM ABDULLAHI Cognitive and behavioral health issues, unspecified Debility with Fall - Secondary Discharge Diagnosis Chronic Problems (Last Reviewed 01/14/18 @ 17:16 by All Jopperi, DO) Abdominal pain (Chronic) ABDULLAHI (obstructive sleep apnea) (Chronic) Tobacco dependence due to cigarettes (Chronic) Non-compliance (Chronic) Hypersomnia (Chronic) Anemia (Chronic) Normocytic HTN (hypertension) (Chronic) Morbid obesity with BMI of 40.0-44.9, adult (Chronic) Chronic pain (Chronic) Chronic atrial fibrillation (Chronic) Chronic hypoxemic respiratory failure (Chronic) non-compliant with oxygen Hyperlipemia (Chronic) Type 2 diabetes mellitus (Chronic) uncontrolled GERD (gastroesophageal reflux disease) (Chronic) Anxiety (Chronic) Insomnia (Chronic) Hospital Course and Treatment Imaging Results: US/Gallbladder IMPRESSION: Thickened gallbladder wall. Tumefactive sludge is seen within the gallbladder lumen. RAD/Chest 1 View (Portable) IMPRESSION: No acute abnormality is seen. CT/CTA Chest W/WO Contrast IMPRESSION: Bibasilar patchy infiltrates and/or atelectasis. NM/Hepatobilliary Img w/Pharm Int IMPRESSION: 1. A gallbladder ejection fraction calculated to be greater than 30% following the administration of an ingested fatty meal makes the probability of functional hepatobiliary disease (gallbladder and/or sphincter of Oddi dyskinesia) and/or organic hepatobiliary disease (chronic acalculous cholecystitis and/or cystic duct syndrome) to be low. (Annika and Osmar, J Nucl Med 43: 1603, 2002). 2. There is scintigraphic evidence of pre-fatty meal duodenal gastric reflux. There is no evidence of duodenal-gastric reflux following fatty meal consumption. Consults [facility] Operations: None Procedures: - - HIDA scan Summary of Care Provided: Hospital course: The patient is a 62 year old F with pmhx as above who presented to the ER from long-term with c/o increased SOB, and abdominal pain. She was supposed to see Dr. Leigh as an outpatient that day for ongoing abdominal pain however her BP was poor and she was bradycardic. In the ER she was found to have the same in the ER with an elevated Dig level. She was previously admitted to the hospital for dig toxicity this year. She was admitted to the PCU for dig toxicity and bradycardia. Cardiology was consulted. Her cardizem and dig were discontinued. Beta lou continued. Her dig level returned to normal and her rate became normal with stable BP. She was given prednisone and aerosols for her COPD, and her lasix was continued. She improved and was weaned back to her baseline O2 at [address] Leigh was consulted for abdominal pain. HIDA scan was obtained and was negative. She may pursue an outpatient elective cholecystectomy. She will follow up as an outpatient. Prior to dc she fell attempting to get out of bed. She lost balance, no dizziness or LH. She fell onto her buttocks. She had no back, head, buttocks, or leg pain, no numbness or tingling. She was helped up and did not have any pain. No changes on tele. She was discharged back to residential in stable condition. She will continue the medication changes as above and complete a steroid taper. Follow up with: PCP 1-2 weeks, Cardiology 2 weeks, Gen Surgeon 1-2 weeks. Patient was seen by Brian Hinojosa PA-C under the supervision of Dr. Hopson. [] - Physical Exam General: Alert, Oriented x3, Cooperative HEENT: Atraumatic, PERRLA, EOMI, Normocephalic Neck: Supple, No JVD, Negative Carotid Bruits Lungs: Wheezes Cardiovascular: Regular rate, No murmurs Abdomen: Bowel Sounds Present, Soft, Non Tender Extremities: No edema, Capillary Refill Less than 3 Seconds Skin: No rashes, No breakdown Musculoskeletal: No Tenderness to Palpation of Joints or Extremities Neurological: Cranial nerves II-XII grossly intact Psych/Mental Status: Normal Affect, Appropriate, Alert and oriented to time, place, person, mood and affect Vital Signs Temp Pulse Resp BP Pulse Ox 98.5 F 75 18 129/71 H 96 01/17/18 13:50 01/17/18 13:50 01/17/18 13:50 01/17/18 13:50 01/17/18 13:50 Oxygen Flow Rate (L/min) 2 Oxygen Delivery Method Nasal Cannula Weight: 190 lb 11.198 oz Body Mass Index (BMI) 36.0 Finger Stick Blood Glucose 364 Intake and Output for Last 24 Hours Intake Total 1095 / 1095 720 / 720 120 / 120 Output Total 900 / 900 300 / 300 Balance 195 / 195 420 / 420 120 / 120 Microbiology Past 72 Hours 01/14/18 11:50 Blood Culture - Preliminary Blood Culture (Wb) - Anticubital Right No growth in 48 hours. 01/14/18 12:40 Blood Culture - Preliminary POC Glucose POC Glucose 200 H 139 H 247 H POC Glucose 184 H Discharge Diet: Low fat/ Low Cholesterol, 1800 Calorie Control Diet, 2000 mg Sodium Diet Discharge Activity: Return to Normal Activity Home Medications: Medications to take at Discharge Albuterol Aerosols [Ventolin Aerosols] 2.5 mg INHALATION Q4H PRN PRN 05/12/17 Atorvastatin Calcium [Lipitor] 40 mg PO QHS 05/12/17 Budesonide/Formoterol 160/4.5 [Symbicort 160/4.5 Mcg Inhaler (SP)] 2 puff INHALATION BID 05/12/17 Bupropion HCl [Bupropion HCl Sr] 150 mg PO BID 05/12/17 Buspirone HCl 10 mg PO TID 05/12/17 Glucagon,Human Recombinant [Glucagon Emergency Kit] 1 mg IM PRN PRN 05/12/17 Ipratropium/Albuterol Sulfate [Duoneb] 3 ml INHALATION Q6H PRN 05/12/17 Propranolol HCl [Inderal (Beta Lou)] 10 mg PO BID 05/12/17 Sennosides/Docusate Sodium [Senna-Docusate Sodium Tablet] 2 tab PO DAILY PRN PRN 05/12/17 Mag Hydrox/Al Hydrox/Simeth [Mylanta II] 30 ml PO Q6H PRN PRN 08/11/17 docusate sodium 100 mg capsule 100 mg PO QHS 09/01/17 Rivaroxaban [Xarelto] 20 mg PO DAILY #0 11/03/17 Calcium Carbonate [Tums] 500 mg PO Q6H PRN PRN 11/20/17 Insulin Lispro [Humalog KwikPen] See Protocol SUBCUT 4X/DAYCM insuln.pen 11/24/17 Benzonatate [Tessalon Perle] 100 mg PO TID PRN PRN 12/23/17 Bisacodyl [Dulcolax] 10 mg RECTAL DAILY 12/23/17 Duloxetine HCl 60 mg PO DAILY 12/23/17 Furosemide [Lasix] 40 mg PO BIDLX 12/23/17 Gabapentin [Neurontin] 100 mg PO TIDCM 12/23/17 Guaifenesin [Mucinex] 1,200 mg PO BID PRN 12/23/17 Loperamide [Imodium] 2 mg PO PRN PRN 12/23/17 Polyethylene Glycol 3350 [Miralax] 17 gm PO DAILY 12/23/17 Acetaminophen 650 mg PO PRN PRN 12/25/17 Insulin Glargine,Hum.rec.anlog [Basaglar Kwikpen U-100] 20 unit SQ QHS 12/25/17 Magnesium Hydroxide [Milk of Magnesia] 30 ml PO DAILY 12/25/17 Ondansetron HCl [Zofran] 4 mg PO Q6H PRN PRN 12/25/17 Lactobacillus Acidophilus [Acidophilus] 1 cap PO DAILY 01/14/18 Lactose-Reduced Food [Boost Breeze] 237 ml PO TID 01/14/18 Albuterol Aerosols [Ventolin Aerosols] 2.5 mg INHALATION Q6HWA.RT vial.neb. 01/17/18 Pantoprazole Sodium [Protonix] 40 mg PO DAILY #0 tablet 01/17/18 Prednisone 10 mg PO UD #26 tablet 01/17/18 Following Prescrptions Were Given to Patient: Prednisone 10 mg PO UD #26 tablet Primary Care Physician: Camden Burger [Primary Care Provider] - Please follow up with your Primary Care Physician in: 1-2 weeks Please Follow Up With: Camden Mccormick MD When: 2 weeks Please Follow Up With: Jose Manuel Leigh MD When: 1-2 weeks Disposition: Fdc facility Minutes spent on discharge:: 35 Patient Condition:: Stable Medical Necessity - Tobacco Use Smoking Status: Current every day smoker Tobacco Use: Non-smoker Meaningful Use Info Meaningful Use Diagnoses (Choose all that apply): None applicable <Paintsil,Kegley - Last Filed: 01/19/18 12:18> Discharge Date and Diagnosis - Secondary Discharge Diagnosis Chronic Problems (Last Reviewed 01/14/18 @ 17:16 by All Karimi DO) Abdominal pain (Chronic) ABDULLAHI (obstructive sleep apnea) (Chronic) Tobacco dependence due to cigarettes (Chronic) Non-compliance (Chronic) Hypersomnia (Chronic) Anemia (Chronic) Normocytic HTN (hypertension) (Chronic) Morbid obesity with BMI of 40.0-44.9, adult (Chronic) Chronic pain (Chronic) Chronic atrial fibrillation (Chronic) Chronic hypoxemic respiratory failure (Chronic) non-compliant with oxygen Hyperlipemia (Chronic) Type 2 diabetes mellitus (Chronic) uncontrolled GERD (gastroesophageal reflux disease) (Chronic) Anxiety (Chronic) Insomnia (Chronic) Hospital Course and Treatment Summary of Care Provided: The patient is a 62 year old F with multiple co-morbidities including chronic respiratory failure, severe COPD who was admitted with lethargy, shortness of breath and abdominal pain and was found to be hypoxic and bradycardic. She was found to have elevated digoxin level. She was admitted to a telemetry bed, her digoxin and cardizem were held. Patient's heart rate improved off digoxin and cardizem. Patient was also managed as acute on chronic respiratory failure and treated for COPD. Cardiology was consulted and recommended discontinuing both cardizem and digoxin. Patient improved with breathing treatments and steroids. She was also seen by general surgery. Her admitting CT of the abdomen/pelvis showed thickened gallbladder. HIDA scan was negative. She will follow-up with Dr. Leigh for outpatient elective cholecystectomy Subjective: On the day of discharge, patient looked better. She denied any chest pain, dizziness, shortness of breath. Telemetry showed HR in the 60 -80s. - Physical Exam Vital Signs Temp Pulse Resp BP Pulse Ox 98.5 F 75 18 129/71 H 96 01/17/18 13:50 01/17/18 13:50 01/17/18 13:50 01/17/18 13:50 01/17/18 13:50 Oxygen Flow Rate (L/min) 2 Oxygen Delivery Method Nasal Cannula Weight: 86.5 kg Body Mass Index (BMI) 36.0 Finger Stick Blood Glucose 364 Intake and Output for Last 24 Hours Intake Total 120 / 120 Balance 120 / 120 Microbiology Past 72 Hours 01/14/18 11:50 Blood Culture - Preliminary Blood Culture (Wb) - Anticubital Right No growth in 48 hours. 01/14/18 12:40 Blood Culture - Preliminary Code Visit Inpatient E AND M: [id number] Disch Hosp 01/17/18 1508 <Electronically signed by Brian SORIA> Date Brian SORIA 01/19/18 1219<Electronically signed by Radha Hopson MD> Cosigner Signature (if applicable): Date Radha Hopson MD CC: YANG Hinojosa; Camden Burger; Radha Hopson MD; Camden Burger MD Signed BEDSIDE GLUCOSE Collected: 01/17/2018 Status: F Source: [place] 11:27 AM [facility] REPOSITORY TYPE CODE TESTS RESULT OUT OF REFERENCE UNITS RANGE LAB L501.080 70-110 mg/dL High BEDSIDE GLU 200 Result Comment: MANAGEMENT OF PATIENT CARE PER NURSING PROTOCOL Performed By: #### L501.080 #### [facility] Point of Care [address] [place] [address] BEDSIDE GLUCOSE Collected: 01/17/2018 Status: F Source: [place] 6:50 AM [facility] REPOSITORY TYPE CODE TESTS RESULT OUT OF REFERENCE UNITS RANGE LAB L501.080 70-110 mg/dL High BEDSIDE GLU 139 Result Comment: MANAGEMENT OF PATIENT CARE PER NURSING PROTOCOL Performed By: #### L501.080 #### [facility] Point of Care [address] [place] [address] BEDSIDE GLUCOSE Collected: 01/16/2018 Status: F Source: [place] 9:06 PM [facility] REPOSITORY TYPE CODE TESTS RESULT OUT OF REFERENCE UNITS RANGE LAB L501.080 70-110 mg/dL High BEDSIDE GLU 247 Result Comment: MANAGEMENT OF PATIENT CARE PER NURSING PROTOCOL Performed By: #### L501.080 #### [facility] Point of Care [address] [place] [address] BEDSIDE GLUCOSE Collected: 01/16/2018 Status: F Source: [place] 4:50 PM [facility] REPOSITORY TYPE CODE TESTS RESULT OUT OF REFERENCE UNITS RANGE LAB L501.080 70-110 mg/dL High BEDSIDE GLU 184 Result Comment: MANAGEMENT OF PATIENT CARE PER NURSING PROTOCOL Performed By: #### L501.080 #### [facility] Point of Care [address] [place] [address] CONSULTATION Observed: 01/16/2018 Status: F Source: [place] 2:24 PM [facility] REPOSITORY [facility] Medical Records Department [address] [place] [address] Consultation 01/15/18 1846 MR#: [id number] Acct: [id number] Name: DARYA LARKIN Rep #: [id number] : 1955 62 From: Camden Mccormick MD PCP: Camden Burger Status: AD[facility] IN Y [id number] Problem List (1) Chronic atrial fibrillation Status: Chronic (2) Bradycardia Status: Acute (3) Digoxin toxicity Status: Acute Qualifiers: Encounter type: initial encounter Injury intent: accidental or unintentional Qualified Code(s): T46.0X1A - Poisoning by cardiac-stimulant glycosides and drugs of similar action, accidental (unintentional), initial encounter (4) Hyperlipemia Status: Chronic Qualifiers: (5) HTN (hypertension) Status: Chronic Qualifiers: (6) Type 2 diabetes mellitus Status: Chronic Qualifiers: Comment: uncontrolled (7) COPD (chronic obstructive pulmonary disease) Status: Chronic Qualifiers: (8) Abdominal pain Status: Acute Qualifiers: Abdominal location: right lower quadrant Qualified Code(s): R10.31 - Right lower quadrant pain Reason for Consult Date of Consultation: 01/15/18 History of Present Illness: The patient is a 62 year old white female with a past medical history which has included underlying chronic/permanent atrial fibrillation, hyperlipidemia, hypertension, diabetes mellitus, COPD, who now was referred for evaluation of bradycardia thought secondary to digitalis intoxication superimposed upon abdominal discomfort thought secondary to underlying gallbladder related disease. She presented based upon concerns of abdominal discomfort and was found to be bradycardic and on subsequent evaluation to have digitalis intoxication with a digitalis level of approximately 2.74. She denies any ongoing chest discomfort. She states she is chronically short of breath and dyspneic. She has been complaining of abdominal discomfort. She is undergone noninvasive evaluation with concerns of gallbladder related disease. She is unaware of any palpitations and denies any obvious near syncope or syncope. She was also found to have evidence of hypokalemia. She has had her potassium levels supplemented. She has been undergoing cardiac rhythm monitoring. Her cardiac rhythm is demonstrated atrial fibrillation with variable ventricular response including intermittent slow ventricular response. [] Past Medical History Allergies/Adverse Reactions: Allergies venom-honey bee [bee venom (honey bee)] Allergy (Verified 12/25/17 13:04) Swelling levofloxacin [From Levaquin] Adverse Reaction (Verified 12/25/17 13:04) Nausea oxycodone HCl [From Percocet] Adverse Reaction (Verified 12/25/17 13:04) Nausea Penicillins Adverse Reaction (Verified 12/25/17 13:04) Nausea/Vom/Diarrhea Home Medications: Ambulatory Orders Medication Instructions Recorded RX: Albuterol Aerosols [Ventolin 2.5 mg INHALATION Q4H PRN PRN 05/12/17 Aerosols] RX: Atorvastatin Calcium [Lipitor] 40 mg PO QHS 05/12/17 Past Medical History (Chronic Problems): Chronic Problems (Last Reviewed 01/14/18 @ 17:16 by All Karimi DO) ABDULLAHI (obstructive sleep apnea) (Chronic) Tobacco dependence due to cigarettes (Chronic) Non-compliance (Chronic) Hypersomnia (Chronic) Anemia (Chronic) Normocytic HTN (hypertension) (Chronic) Morbid obesity with BMI of 40.0-44.9, adult (Chronic) COPD (chronic obstructive pulmonary disease) (Chronic) Chronic pain (Chronic) Chronic atrial fibrillation (Chronic) Chronic hypoxemic respiratory failure (Chronic) non-compliant with oxygen Hyperlipemia (Chronic) Type 2 diabetes mellitus (Chronic) uncontrolled GERD (gastroesophageal reflux disease) (Chronic) Anxiety (Chronic) Insomnia (Chronic) Surgical History: hysterectomy, tonsillectomy, - - Lumbar surgery. Psychiatric History: Anxiety, Depression COURTROOM REPORTER History: No pertinent COURTROOM REPORTER history - *Family History Maternal Family History: Family History (Last Reviewed 01/14/18 @ 17:16 by All Karimi DO) Sister Arthritis Diabetes Father Cancer Aunt Diabetes History Items: - - She reports that she is unaware of what her mother's health history was like Paternal Family History: Family History (Last Reviewed 01/14/18 @ 17:16 by All Karimi DO) Sister Arthritis Diabetes Father Cancer Aunt Diabetes History Items: Cancer, - - father with throat cancer. Sibling Family History: Family History (Last Reviewed 01/14/18 @ 17:16 by All Karimi DO) Sister Arthritis Diabetes Father Cancer Aunt Diabetes History Items: Asthma, COPD, Hypertension Lives: Fdc Smoking Status: Current every day smoker Tobacco Use: Non-smoker Alcohol: None Drugs: None Review of Systems - Review of Systems General: Denies: Fever, Night Sweats, Fatigue Cardiovascular: Denies: Chest Discomfort, Shortness of Breath, Orthopnea, PND, Peripheral Edema, Palpitations, Lightheadedness, Dizziness, Near Syncope, Syncope Respiratory: Denies: Cough, Sputum Production, Hemoptysis Gastrointestinal: Reports: Abdominal Discomfort. Denies: Hematemesis, Hematochezia, Melena Genitourinary: Denies: Dysuria, Hematuria Skin: Denies: Rash Subjectve: Is a 62-year-old white female who appears to be resting reasonably comfortably at the moment in no acute distress. Objective: Vital Signs Temp Pulse Resp BP Pulse Ox 97.8 F 71 18 117/44 L 94 01/15/18 18:02 01/15/18 18:02 01/15/18 18:02 01/15/18 18:02 01/15/18 18:02 Oxygen Flow Rate (L/min) 4 Oxygen Delivery Method Nasal Cannula Weight: 190 lb 11.198 oz Body Mass Index (BMI) 36.0 Finger Stick Blood Glucose 364 Intake and Output for Last 24 Hours Intake Total 1366 / 1366 1045 / 1045 Output Total 450 / 450 600 / 600 Balance 916 / 916 445 / 445 General: Awake, Alert, Oriented x 3, Cooperative, No Acute Distress, Obese HEENT: Atraumatic, Normocephalic, PERRL, EOMI, Sclera Non Icteric Oral: Moist Mucosa Neck: Supple, Good ROM, No JVD Lungs: - - Scattered wheezing Cardiovascular: Irregular Rhythm, Normal S1, Normal S2 Abdomen: Bowel Sounds Present, - - Tenderness to palpation Extremities: No edema Neurological: No Focal Motor or Sensory Deficit 01/15/18 05:50: Sodium 145, Potassium 3.2 L, Chloride 110 H, Carbon Dioxide 27.0, Anion Gap 8, BUN 11, Creatinine 0.54 L, Est GFR (MDRD) Af Amer 147, Est GFR (MDRD) Non-Af 122, BUN/Creatinine Ratio 20.4 H, Glucose 81, Calcium 7.8 L, Magnesium 1.7 01/15/18 05:50: B-Natriuretic Peptide 185.1 H 01/15/18 16:22: pH 7.49 H, Bicarbonate Actual 25.8, POC Total CO2 27, Base Excess 3 H, O2 Saturation 91 L, ABG pCO2 33.9 L, ABG pO2 56 L, Velma Test NA Rhythm: Atrial fibrillation EKG: Atrial fibrillation; ICRBBB; nonspecific ST/T wave abnormality ECHO: 07/11/2017: Technically difficult study: Left ventricular systolic function hyperdynamic with an LVEF of 75%; mild left atrial enlargement; lipomatous hypertrophy of the atrial septum; mild to moderate mitral annular calcification with trivial MR; trivial TR; aortic valve sclerosis/mild aortic valve stenosis; the cardial fat; small pericardial effusion with no cardiac tamponade physiology Stress Test: 05/13/2017: Pharmacologic stress nuclear imaging study: Considered to demonstrate normal myocardial perfusion. CXR: Please see the official report: No great vessel disease reported Assessment/Plan 1. Chronic/permanent atrial fibrillation The patient remains in atrial fibrillation. At the present time her rate control therapy will be adjusted to minimize bradycardia. She is on anticoagulant therapy. 2. Bradycardia The patient has been noted to have episodes of slow ventricular response. This may be secondary to a combination of her medications which have been used to assist with her rate control in the past. At the present time her medication regimen will need to be altered. She will continue her low-dose beta-lou therapy. Her calcium channel antagonist therapy will be placed on hold. Her digitalis will be discontinued. Her cardiac rate and rhythm will be followed. 3. Digitalis intoxication The patient has had evidence of digitalis intoxication in the past. Her medications have been adjusted. Despite that she has returned with recurrent digitalis intoxication. Thus at the present time her digitalis will be discontinued. Her levels will be followed. If her cardiac rate increases then hopefully can be controlled with her beta-blockers and/or beta-blockers and calcium channel antagonist. 4. Hyperlipidemia She will continue lipid-lowering therapy as deemed appropriate. 5. Hypertension Her blood pressures have waxed and waned. Based upon this her medications will be adjusted which will also include discontinuation of her calcium channel antagonist therapy at this time. She is also not presently receiving diuretic therapy or her previous BRIDGETTE inhibitor therapy. 6. Diabetes mellitus He will continue under the control of internal medicine for this. 7. COPD She will continue under evaluation by internal medicine and if need be pulmonology. 8. Abdominal discomfort He is being evaluated by general surgery for her gallbladder related issues. She does require a general surgical procedure for her gallbladder such as a cholecystectomy then she will need to be monitored with respect to her cardiovascular disease status with respect to her cardiac rate and rhythm and blood pressures. Her medications will need to be adjusted to maintain adequate rate control. Also her anticoagulant therapy would need to be temporarily interrupted. Comment: The patient's case has been discussed and reviewed with the patient and the [facility] staff. This note was generated using a voice recognition system and there may be incorrect words, spelling or punctuation that were not noted when reviewing the office note prior to saving. 01/16/18 1424 <Electronically signed by Camden Mccormick MD> Date Camden Mccormick MD Cosigner Signature (if applicable): Date CC: Camden Burger; Jose Manuel Leigh MD; Camden Mccormick MD; Camden Burger MD Signed BEDSIDE GLUCOSE Collected: 01/16/2018 Status: F Source: [place] 11:21 AM [facility] REPOSITORY TYPE CODE TESTS RESULT OUT OF REFERENCE UNITS RANGE LAB L501.080 70-110 mg/dL High BEDSIDE GLU 149 Result Comment: MANAGEMENT OF PATIENT CARE PER NURSING PROTOCOL Performed By: #### L501.080 #### [facility] Point of Care [address] [place] [address] [place] [address] ECHO, COMPLETE W/ Observed: 01/16/2018 Status: F Source: [place] CONTRAST 11:17 AM [facility] REPOSITORY [facility] Cardiovascular Services [address] [place] [address] Echo Complete W/ Contrast 01/16/18 0728 MR#: [id number] Acct: [id number] Name: DARYA LARKIN Judi Rep #: [id number] : 1955 62 From: Camden Mccormick MD Attending Dr: Radha Hopson MD Status: ADM IN Ordering Dr: Camden Mccormick MD Date: 01/16/18 Location: [facility] Sex: F C Admitted: 01/14/18 Reason For Study: Afib/Flutter Procedure This was a 2D Doppler, Color Flow transthoracic echocardiogram. The study was technically difficult. Contrast injection was performed. Exam performed portable in patient room. Left Ventricle Normal LV size. Left ventricular systolic function is normal. The estimated ejection fraction is 65 %. Diastolic function is indeterminate. No regional wall motion abnormalities noted. Right Ventricle Normal RV size. Normal systolic function. Atria The left atrium is mildly enlarged. Normal right atrium. No doppler evidence for ASD. Mitral Valve There is mild to moderate mitral annular calcification. Extension of the mitral annular calcification onto the posterior mitral valve leaflet. Trivial mitral valve insufficiency. Tricuspid Valve Normal tricuspid valve. Mild tricuspid valve insufficiency. Right ventricular systolic pressure estimated to be 38 mmHg. Aortic Valve The aortic valve is not well visualized. Trivial aortic valve insufficiency. Pulmonic Valve The pulmonic valve is not well visualized. Great Vessels The aortic root is not well visualized. Pericardium/Pleural No pericardial effusion. Medication Diluted definity 6ml given slow IV push to enhance endocardial definition. MMode/2D Measurements AND Calculations LVIDd: 4.9 cm IVSd: 0.64 cm LA dimension: 4.3 cm LVIDs: 2.8 cm LVPWd: 0.51 cm FS: 44.0 % LAV(MOD-sp4): 93.8 ml LA A4 area: 26.8 cm2 Doppler Measurements AND Calculations MV E max jami: 123.5 cm/sec Lat Peak E' Jami: 8.9 cm/sec Med Peak E' Jami: 11.2 cm/sec E/E' lat: 13.9 E/E' med: 11.0 Ao V2 max: 175.5 cm/sec LV V1 max: 127.0 cm/sec PA V2 max: 128.1 cm/sec Ao max P.3 mmHg LV V1 max P.5 mmHg TR max jami: 271.1 cm/sec TR max P.6 mmHg Interpretation Summary The study was technically difficult. Contrast injection was performed. Left ventricular systolic function is normal. The estimated ejection fraction is 65 %. The left atrium is mildly enlarged. There is mild to moderate mitral annular calcification. Extension of the mitral annular calcification onto the posterior mitral valve leaflet. Trivial mitral valve insufficiency. Mild tricuspid valve insufficiency. Trivial aortic valve insufficiency. Right ventricular systolic pressure estimated to be 38 mmHg. Diastolic function is indeterminate. Ordering Physician: Camden Mccormick Referring Physician: Camden Santana Performed By: Tyrone Darby RCS 01/16/18 1117 Date Camden Mccormick MD CC: Camden Burger; Radha Hopson MD; Camden Mccormick MD; Camden Burger MD Date Dictated: 01/16/1828 Date Transcribed: 01/16/18 111 Eyeglass Inspector: Signed BEDSIDE GLUCOSE Collected: 01/16/2018 Status: F Source: [place] 6:24 AM [facility] REPOSITORY TYPE CODE TESTS RESULT OUT OF REFERENCE UNITS RANGE LAB L501.080 70-110 mg/dL High BEDSIDE GLU 147 Result Comment: MANAGEMENT OF PATIENT CARE PER NURSING PROTOCOL Performed By: #### L501.080 #### [facility] Point [place] [address] CBC W/DIFF, AUTOMATED Collected: 01/16/2018 Status: F Source: [place] 6:10 AM [facility] REPOSITORY TYPE CODE TESTS RESULT OUT OF RANGE REFERENCE UNITS LAB L100.1000 4.4-11.0 K/mm3 Normal WBC 7.3 LAB L100.1200 4.2-5.4 M/mm3 Low RBC 3.67 LAB L100.1300 12.0-15.0 g/dl Low HGB 10.1 LAB L100.1400 37-47 % Low HCT 32.1 LAB L100.1500 81-99 fL Normal MCV 87.5 LAB L100.1600 27.0-32.0 pg Normal MCH 27.5 LAB L100.1700 32-36 g/gl Low MCHC 31.5 LAB L100.1810 11.6-14.6 % High RDW CV 19.3 LAB L100.1820 35.1-43.9 fl High RDW SD 62.0 LAB L100.1900 150-450 K/mm3 Normal PLT 224 LAB L100.2000 6.2-12.0 fl Normal MPV 11.2 LAB L100.2100 47-70 % Normal NEUT% 53.3 LAB L100.2200 19-41 % Normal LY% 31.4 LAB L100.2300 0-10 % Normal MONO% 9.4 LAB L100.2400 0-5 % High EO% 5.4 LAB L100.2500 0-1 % Normal BASO% 0.4 LAB L100.2550 0.0-0.9 % Normal IM GRAN % 0.100 Result Comment: IG% - Immature Granulocytes (promyelocytes, myelocytes and metamyelocytes) > 1% indicates that a LEFT SHIFT is Present. LAB L100.2620 2.0-7.7 X10 3/uL Normal Absolute Neut 3.9 LAB L100.2720 0.83-4.51 X10 3/ul Normal Absolute Lymph 2.28 Performed By: #### L100.0100 #### [facility] [address] [place], [place], [address] BASIC METABOLIC Collected: 01/16/2018 Status: F Source: [place] PROFILE (BMP) 6:10 AM [facility] REPOSITORY TYPE CODE TESTS RESULT OUT OF RANGE REFERENCE UNITS LAB L501.0100 74-106 mg/dL High GLU 126 Result Comment: Fasting Glucose result greater than or equal to 126 mg/dL suggests DIABETES MELLITUS per A.D.A. criteria. Please note revised GLUCOSE reference range effective 2017. LAB L501.1000 7-18 mg/dL Normal BUN 8 LAB L501.1100 0.55-1.02 mg/dL Low CREAT,SERUM 0.53 Result Comment: The validity of the calculated GFR AND GFRAA in patients over 70 years has not been determined. Clinical correlation is essential. LAB L501.1110 >60 mL/min Normal EST GFR 124 Result Comment: Non- GFR Calc LAB L501.1115 >60 mL/min Normal EST GFR - AA 150 Result Comment: GFR Calc LAB L501.1255 ml/min Normal Estimated CRCL 83.05 LAB L501.1300 10-20 RATIO Normal BUN/CRE 15.1 LAB L501.2200 8.5-10 mg/dL Low .1 CA 8.1 LAB L501.5300 136-14 mmol/L High 5 NA 146 LAB L501.5600 3.5-5. mmol/L Normal 1 K 3.6 LAB L501.5900 98-107 mmol/L High CL 113 LAB L501.6100 21.0-3 mmol/L Normal 2.0 CO2 25.0 LAB L501.6200 5-15 Normal GAP 8 Performed By: #### L500.2500, L501.5200 #### [facility] [address] [place], [address] MAGNESIUM Collected: 01/16/2018 Status: F Source: [place] 6:10 AM [facility] REPOSITORY TYPE CODE TESTS RESULT OUT OF RANGE REFERENCE UNITS LAB L501.5200 1.6-2.6 mg/dL Normal MG 2.0 Performed By: #### L500.2500, L501.5200 #### [facility] [address] [place], [address] DIGOXIN LEVEL Collected: 01/16/2018 Status: F Source: [place] 6:10 AM [facility] REPOSITORY TYPE CODE TESTS RESULT OUT OF RANGE REFERENCE UNITS LAB L501.7510 0.80-2.00 ng/mL Normal DIG 1.43 Performed By: #### L501.7510 #### [facility] [address] [place], [address] BEDSIDE GLUCOSE Collected: 01/15/2018 Status: F Source: [place] 9:06 PM [facility] REPOSITORY TYPE CODE TESTS RESULT OUT OF REFERENCE UNITS RANGE LAB L501.080 70-110 mg/dL High BEDSIDE GLU 198 Result Comment: MANAGEMENT OF PATIENT CARE PER NURSING PROTOCOL Performed By: #### L501.080 #### [facility] Point of Care [address] [place] [address] BEDSIDE GLUCOSE Collected: 01/15/2018 Status: F Source: [place] 5:17 PM [facility] REPOSITORY TYPE CODE TESTS RESULT OUT OF REFERENCE UNITS RANGE LAB L501.080 70-110 mg/dL High BEDSIDE GLU 178 Result Comment: MANAGEMENT OF PATIENT CARE PER NURSING PROTOCOL Performed By: #### L501.080 #### [facility] Point of Care [address] [place] [address] BLOOD GASES BY CPS Collected: 01/15/2018 Status: F Source: [place] 4:22 PM [facility] REPOSITORY TYPE CODE TESTS RESULT OUT OF RANGE REFERENCE UNITS LAB L9000.9990 Normal BLD GAS TYPE ART LAB L9001.1000 Normal SITE R Radial LAB L9001.1010 Normal VELMA TEST NA LAB L9001.1050 O2 Normal Delivery Dev Nasal Can LAB L9001.1055 /min Normal LPM 4.0 LAB L9001.1104 Normal Results To HOSP MD LAB L9001.1105 Normal Time Given 1610 LAB L9001.1110 7.35-7.45 High pH - I-STAT 7.49 LAB L9001.1210 35-45 mmHg Low pCO2 - ISTAT 33.9 LAB L9001.1310 75-100 mmHG Low PO2 I-STAT 56 LAB L9001.2300 22-26 mmol/L Normal HCO3 ISTAT 25.8 LAB L9001.2400 -2 to +2 mmol/L High BE ISTAT 3 LAB L9001.2415 mmol/L Normal TOTAL CO2 27 ISTAT LAB L9001.2425 95-99 % Low SO2 ISTAT 91 Performed By: #### L9000.0800 #### [facility] Point of Care [address] [place] [address] CONSULTATION Observed: 01/15/2018 Status: F Source: [place] 1:53 PM [facility] REPOSITORY [facility] Medical Records Department [address] [place] [address] Consultation 01/15/18 1346 MR#: [id number] Acct: [id number] Name: DARYA LARKIN Rep #: [id number] : 1955 62 From: Jose Manuel Leigh MD PCP: Camden Burger Status: ADM IN Y Location: [facility] [id number] Problem List (1) Abdominal pain Status: Acute Qualifiers: Abdominal location: right lower quadrant Qualified Code(s): R10.31 - Right lower quadrant pain Reason for Consult Date of Consultation: 01/15/18 Reason for Consultation: Abdominal pain History of Present Illness: The patient is a 62 year old F who was admitted for digoxin toxicity as well as hypoxia and hypotension. According to her long-term she has not been tolerating much of a diet. She is a very poor historian. She is complaining of right lower quadrant pain but has been tolerating a diet here in the hospital she is not complaining of any fevers or chills. She does know how long she has been having this pain. She does not know when her last meal was or if she is able to even tolerate a diet. Past Medical History Past Medical History (Chronic Problems): Chronic Problems (Last Reviewed 11/29/18 @ 17:16 by All Karimi DO) ABDULLAHI (obstructive sleep apnea) (Chronic) Tobacco dependence due to cigarettes (Chronic) Non-compliance (Chronic) Hypersomnia (Chronic) Anemia (Chronic) Normocytic HTN (hypertension) (Chronic) Morbid obesity with BMI of 40.0-44.9, adult (Chronic) COPD (chronic obstructive pulmonary disease) (Chronic) Chronic pain (Chronic) Chronic atrial fibrillation (Chronic) Chronic hypoxemic respiratory failure (Chronic) non-compliant with oxygen Hyperlipemia (Chronic) Type 2 diabetes mellitus (Chronic) uncontrolled GERD (gastroesophageal reflux disease) (Chronic) Anxiety (Chronic) Insomnia (Chronic) Medical History: Medical History (Last Reviewed 01/14/18 @ 17:16 by All Karimi DO) Hypersomnia (Chronic) G47.10 Anemia (Chronic) D64.9 Normocytic HTN (hypertension) (Chronic) I10 Morbid obesity with BMI of 40.0-44.9, adult (Chronic) E66.01, Z68.41 COPD (chronic obstructive pulmonary disease) (Chronic) J44.9 Chronic pain (Chronic) G89.29 Chronic atrial fibrillation (Chronic) I48.2 Chronic hypoxemic respiratory failure (Chronic) J96.11 non-compliant with oxygen Hyperlipemia (Chronic) E78.5 Type 2 diabetes mellitus (Chronic) E11.9 uncontrolled GERD (gastroesophageal reflux disease) (Chronic) K21.9 Anxiety (Chronic) F41.9 Insomnia (Chronic) G47.00 Osteoporosis M81.0 Cardiomyopathy (Ruled-out) I42.9 EF in Oct 2015 45-50 Left ankle pain (Inactive) M25.572 Non-compliance (Inactive) Z91.19 withn follow up with pulmonary Allergies venom-honey bee [bee venom (honey bee)] Allergy (Verified 12/25/17 13:04) Swelling levofloxacin [From Levaquin] Adverse Reaction (Verified 12/25/17 13:04) Nausea oxycodone HCl [From Percocet] Adverse Reaction (Verified 12/25/17 13:04) Nausea Penicillins Adverse Reaction (Verified 12/25/17 13:04) Nausea/Vom/Diarrhea Home Medications: Ambulatory Orders Medication Instructions Recorded Albuterol Aerosols [Ventolin 2.5 mg INHALATION Q4H PRN PRN 05/12/17 Surgical History: Surgical History (Last Reviewed 01/14/18 @ 17:16 by All Karimi DO) Cataract extraction status Z98.49 History of lumbar surgery Z98.890 History of tonsillectomy and adenoidectomy Z98.890 History of total hysterectomy Z90.710 Surgical History: hysterectomy, tonsillectomy, - - Lumbar surgery. Psychiatric History: Anxiety, Depression COURTROOM REPORTER History: No pertinent COURTROOM REPORTER history Smoking Status: Current every day smoker Tobacco Use: Non-smoker - *Family History Maternal Family History: Family History (Last Reviewed 01/14/18 @ 17:16 by All Karimi DO) Sister Arthritis Diabetes Father Cancer Aunt Diabetes History Items: - - She reports that she is unaware of what her mother's health history was like Paternal Family History: Family History (Last Reviewed 01/14/18 @ 17:16 by All Karimi DO) Sister Arthritis Diabetes Father Cancer Aunt Diabetes History Items: Cancer, - - father with throat cancer. Sibling Family History: Family History (Last Reviewed 01/14/18 @ 17:16 by All Karimi DO) Sister Arthritis Diabetes Father Cancer Aunt Diabetes History Items: Asthma, COPD, Hypertension Review of Systems Constitutional: Reports: Anorexia. Denies: Fever Cardiovascular: Denies: Chest Pain Respiratory: Reports: Cough, Shortness of Breath Gastrointestinal: Reports: Abdominal Pain, Nausea. Denies: Vomiting Genitourinary: Reports: Dysuria Skin: Denies: Jaundice Neurological: Reports: Balance problems Unable to obtain accurate/complete ROS d/t: Patient very confused. Only able to obtain limited review of systems. Patient Problems: Active and Suspected Problems (Last Reviewed 01/14/18 @ 17:16 by All Karimi DO) Bradycardia (Acute) Digoxin toxicity (Acute) - Physical Exam General: No apparent distress HEENT: Atraumatic Neck: No JVD Lungs: Short of Breath, - - Coughing Abdomen: Soft, Non-Distended, Tender - Mild tenderness on the entire right side of her abdomen. No guarding or rebound. Musculoskeletal: No Muscle Wasting Vital Signs Temp Pulse Resp BP Pulse Ox 97.8 F 49 L 16 116/53 L 91 01/15/18 07:53 01/15/18 12:46 01/15/18 12:46 01/15/18 07:53 01/15/18 07:53 Oxygen Flow Rate (L/min) 4 Oxygen Delivery Method Nasal Cannula Weight: 190 lb 11.198 oz Body Mass Index (BMI) 36.0 Finger Stick Blood Glucose 364 Intake and Output for Last 24 Hours Intake Total 1366 / 1366 725 / 725 Output Total 450 / 450 600 / 600 Balance 916 / 916 125 / 125 Microbiology Past 72 Hours 01/14/18 13:35 Urine Culture - Preliminary Urine Catheter - Catheter Culture exhibits no growth. Laboratory Tests Past 24 Hrs Sodium 145 Potassium 3.2 L POC Glucose POC Glucose 102 72 136 H POC Glucose 191 H Clinical Impression(s) from Imaging Studies Gallbladder Ultrasound 01/14/18 11:38 IMPRESSION: Thickened gallbladder wall. Tumefactive sludge is seen within the gallbladder lumen. Electronically Signed: Jose Lemos MD at 15:30 EST Tel [phone], Service support , Chest X-Ray 01/14/18 12:08 IMPRESSION: No acute abnormality is seen. Electronically Signed: Jose Lemos MD at 12:23 EST Tel [phone], Service support , Chest CTA 01/14/18 13:44 IMPRESSION: Bibasilar patchy infiltrates and/or atelectasis. Electronically Signed: Jose Lemos MD at 15:09 EST Tel [phone], Service support , Assessment/Plan All Active Problems (Last Reviewed 01/14/18 @ 17:16 by All Karimi DO) Bradycardia (Acute) Digoxin toxicity (Acute) Abdominal pain (Acute) Acute encephalopathy (Acute) Acute kidney injury (Acute) HCAP (healthcare-associated pneumonia) (Acute) Acute and chronic respiratory failure with hypoxia (Resolved) Acute bronchitis due to human metapneumovirus (Resolved) Atrial fibrillation with RVR (Resolved) COPD with acute exacerbation (Resolved) Gram-negative pneumonia (Resolved) Syncope (Resolved) Cardiomyopathy (Ruled-out) 62-year-old female with possible cholecystitis 1. The patient has had frequent admissions recently. Mostly for digoxin toxicity as well as COPD exams patient's. The patient's white count was normal on admission with no left shift. She had a high digoxin level and she has been taken off of this. The patient is complaining of right lower quadrant pain. She had an ultrasound this hospitalization which showed a thickened gallbladder wall with sludge. She had an ultrasound of the beginning of this month that showed no gallstones or sludge and a normal gallbladder wall. The patient only has mild tenderness when the right upper quadrant is deeply palpated. She is not having any nausea or vomiting this time. 2. I will order a HIDA scan to rule out acute cholecystitis. If she does not have acute cholecystitis I would recommend laparoscopic cholecystectomy once the patient is doing well and her COPD is under control. It appears that the patient's COPD is not under good control and her sleep apnea as well. The patient is also on Xarelto for A. fib. 3. If the patient does have acute cholecystitis she may require cholecystostomy tube versus cholecystectomy. She would be high risk for complications due to her comorbidities and general condition. 4. Dr. Tobar is on-call for me for the weekend. Jose Manuel Leigh MD Pager: [facility] [address] [place] [address], [address] [place] [address] Office: 01/15/18 5587 <Electronically signed by Jose Manuel Leigh MD> Date Jose Manuel Leigh MD Cosigner Signature (if applicable): Date CC: Camden Burger; Jose Manuel Leigh MD; Camden Mccormick MD; Camden Burger MD Signed HEPATOBILLIARY IMG Observed: 01/15/2018 Status: F Source: [place] W/PHARM INT 1:46 PM [facility] REPOSITORY [facility] Imaging Services [address] [place] [address] Hepatobilliary Img w/Pharm Int MR#: [id number] Acct: [id number] Name: DARYA LARKIN Rep #: [id number] : 1955 F 62 From: Lambert Beck DO PCP: Camden Burger Status: ADM IN Study: Hepatobilliary Img w/Pharm Int Date of Exam: 01/15/18 Exam# [id number] Ordering Dr: Jose Manuel Leigh MD CLINICAL: 62-year-old female with reported history of right upper quadrant abdominal pain. RADIONUCLIDE HEPATOBILIARY SCINTIGRAPHY COMPARISON: Abdominal ultrasound report 01/14/2018 FINDINGS: Following the intravenous administration of 6.0 mCi of 99m Tc Mebrofenin, hepatobiliary images reveal: 1. Relatively prompt and homogeneous radiopharmaceutical concentration is noted by a normal sized liver. No parenchymal defects are identified. 2. Gallbladder activity is identified at 30 minutes post radiopharmaceutical administration. 3. Small intestinal tract is observed at 15 minutes following tracer injection. 4. Washout of the radiopharmaceutical by the hepatic parenchyma appears qualitatively normal. 5. Duodenal-gastric reflux is defined initiating and approximately 30 minutes following tracer injection. The patient was administered a fatty meal (8 ounces Boost). The post fatty meal ingestion gallbladder ejection fraction calculated at 30 minutes following fatty meal administration was noted to be 32.0 % (normal greater than 30%). NM/Hepatobilliary Img w/Pharm Int IMPRESSION: 1. A gallbladder ejection fraction calculated to be greater than 30% following the administration of an ingested fatty meal makes the probability of functional hepatobiliary disease (gallbladder and/or sphincter of Oddi dyskinesia) and/or organic hepatobiliary disease (chronic acalculous cholecystitis and/or cystic duct syndrome) to be low. (Annika and Osmar, J Nucl Med 43: 1603, 2002). 2. There is scintigraphic evidence of pre-fatty meal duodenal gastric reflux. There is no evidence of duodenal-gastric reflux following fatty meal consumption. Electronically Signed: Lambert Beck DO at 16:44 EST Tel , Service support , CC: Camden Burger; Radha Hopson MD; Jose Manuel Leigh MD; Camden Burger MD Eyeglass Inspector: Signed BEDSIDE GLUCOSE Collected: 01/15/2018 Status: F Source: [place] 11:21 AM [facility] REPOSITORY TYPE CODE TESTS RESULT OUT OF RANGE REFERENCE UNITS LAB L501.080 70-110 mg/dL Normal BEDSIDE GLU 102 Result Comment: MANAGEMENT OF PATIENT CARE PER NURSING PROTOCOL Performed By: #### L501.080 #### [facility] Point of Care [address] [place] [address] BEDSIDE GLUCOSE Collected: 01/15/2018 Status: F Source: [place] 8:06 AM [facility] REPOSITORY TYPE CODE TESTS RESULT OUT OF RANGE REFERENCE UNITS LAB L501.080 70-110 mg/dL Normal BEDSIDE GLU 72 Result Comment: MANAGEMENT OF PATIENT CARE PER NURSING PROTOCOL Performed By: #### L501.080 #### [facility] Point of Care [address] [place] [address] BASIC METABOLIC Collected: 01/15/2018 Status: F Source: [place] PROFILE (BMP) 5:50 AM [facility] REPOSITORY TYPE CODE TESTS RESULT OUT OF RANGE REFERENCE UNITS LAB L501.0100 74-106 mg/dL Normal GLU 81 Result Comment: Please note revised GLUCOSE reference range effective 2017. LAB L501.1000 7-18 mg/dL Normal BUN 11 LAB L501.1100 0.55-1.02 mg/dL Low CREAT,SERUM 0.54 Result Comment: The validity of the calculated GFR AND GFRAA in patients over 70 years has not been determined. Clinical correlation is essential. LAB L501.1110 >60 mL/min Normal EST GFR 122 Result Comment: Non- GFR Calc LAB L501.1115 >60 mL/min Normal EST GFR - AA 147 Result Comment: GFR Calc LAB L501.1255 ml/min Normal Estimated CRCL 81.51 LAB L501.1300 10-20 RATIO High BUN/CRE 20.4 LAB L501.2200 8.5-10 mg/dL Low .1 CA 7.8 LAB L501.5300 136-14 mmol/L Normal 5 NA 145 LAB L501.5600 3.5-5. mmol/L Low 1 K 3.2 LAB L501.5900 98-107 mmol/L High CL 110 LAB L501.6100 21.0-3 mmol/L Normal 2.0 CO2 27.0 LAB L501.6200 5-15 Normal GAP 8 Performed By: #### L500.2500, L501.5200 #### [facility] [address] [place], [address] MAGNESIUM Collected: 01/15/2018 Status: F Source: [place] 5:50 AM [facility] [place] REPOSITORY TYPE CODE TESTS RESULT OUT OF RANGE REFERENCE UNITS LAB L501.5200 1.6-2.6 mg/dL Normal MG 1.7 Performed By: #### L500.2500, L501.5200 #### [facility] [address] [place], [address] BNP,B-TYPE NATRIURETIC Collected: 01/15/2018 Status: F Source: [place] PEPT[place] 5:50 AM [facility] [place] REPOSITORY Order Comment: Comments: ok to add on TYPE CODE TESTS RESULT OUT OF RANGE REFERENCE UNITS LAB L503.6620 0-100 pg/mL High B-TYPE 185.1 KATHERINE PEP Performed By: #### L503.6620 #### [facility] [address] [place], [address] BEDSIDE GLUCOSE Collected: 01/14/2018 Status: F Source: [place] 9:17 PM [facility] [place] REPOSITORY TYPE CODE TESTS RESULT OUT OF REFERENCE UNITS RANGE LAB L501.080 70-110 mg/dL High BEDSIDE GLU 136 Result Comment: MANAGEMENT OF PATIENT CARE PER NURSING PROTOCOL Performed By: #### L501.080 #### [facility] Point of Care [address] [place] [address] BEDSIDE GLUCOSE Collected: 01/14/2018 Status: F Source: [place] 6:15 PM [facility] [place] REPOSITORY TYPE CODE TESTS RESULT OUT OF REFERENCE UNITS RANGE LAB L501.080 70-110 mg/dL High BEDSIDE GLU 191 Result Comment: MANAGEMENT OF PATIENT CARE PER NURSING PROTOCOL Performed By: #### L501.080 #### [facility] Point of Care [address] [place] [address] EMERGENCY DEPARTMENT Observed: 01/14/2018 Status: F Source: [place] SUMMARY 5:45 PM [facility] [place] REPOSITORY [facility] Medical Records Department [address] [place] [address] Emergency Department Summary 01/14/18 1552 MR#: [id number] Acct: [id number] Name: DARYA LARKIN Rep #: [id number] : 1955 62 From: Ross Bailey DO PCP: Camden Burger Status: ADM IN - ER Visit Summary Date of Service: 01/14/18 Chief Complaint: Abdominal pain cough History of Present Illness: The patient is a 62 F who is from long-term. The patient recently admitted this month. At that time is noted that the patient had right-sided abdominal pain her blood pressure was low and she was bradycardic. She was found to be dig toxic and the cardia was felt to be combination of the digits propranolol and Cardizem. She has history of chronic hypoxemic respiratory failure and has been noncompliant with oxygen. It was felt the patient possibly had a pneumonia and received IV antibiotics. She was found to have cholelithiasis is supposed to have an appointment with Dr. Sal today. Today nurse practitioner called stating that on the she ordered IV fluids to be given however they are unable to secure an IV. Today she was rounded upon and was found to have a dry mouth. It was noted that her blood pressure was 90/40. She was hypoxic in the 80s and had a cough. She was also complaining of dysuria. It was felt that the patient was dehydrated due to lack of eating due to the abdominal pain from cholelithiasis. Physical Examination: Afebrile vital signs are stable patient noted to be bradycardic Gen: Well-nourished well-developed Head: Normocephalic atraumatic Eyes: Perrl EOMI ENT: TMs clear no rhinorrhea moist mucous membranes Neck: Supple no lymphadenopathy no JVD nontender CVS: Regularly irregular bradycardic rhythm no murmurs normal S1-S2 Respiratory: No distress clear to auscultation bilaterally chest nontender Abdomen: Soft nontender nondistended normal bowel sounds no masses Back: Nontender Extremity: Nontender was all extremities Skin: Normal color no rash Neuro: Lethargic but responds to voice CN II-XII intact normal strength sensation reflexes Test Results: Count is normal 8.3. BUN is 17 with a creatinine is 0.88. Liver enzymes normal lipase normal at 33. Dig is elevated 2.74. EKG shows atrial fibrillation at rate of [address] segments consistent with digoxin. Chest x-ray no acute findings. Because of the patient's degree of hypoxemia on the chest x-ray CTA was ordered to him straits no pulmonary embolism. Is felt that there is patchy bibasilar infiltrates. Ultrasound of the gallbladder was negative Pacheco's with no pericholecystic fluid. Emergency Department Course and Treatment: Patient received IV fluids. She received breathing treatments. Her mental status has waxed and waned. Think the patient has pneumonia I would think may be bronchitis. This is probably exacerbating her chronic hypoxia. I do not believe the patient has acute cholecystitis. Impression: 1. Bradycardia 2. Digitalis toxicity 3. Bronchitis 4. Chronic hypoxic respiratory failure This note was generated with Inno[employer] dictation software. It may contain incorrect words, spelling, and punctuation that were not noted in review of the chart prior to signing ED Disposition - Plan for ED Patient: Chief Complaint: Shortness of Breath Referrals: Camden Burger [Primary Care Provider] - What to do if you have Problems For any increased pain, shortness of breath, bleeding, nausea or vomiting, chest pain, or any unexpected problems, contact your Primary Care Provider. Call [facility] ([phone]) or report to the closest Emergency Room. Call 911 if necessary. 01/14/18 6288 <Electronically signed by Ross Bailey DO> Date Ross Bailey DO Cosigner Signature (If Indicated): Date CC: Camden Burger; Camden Burger MD HISTORY AND PHYSICAL Observed: 01/14/2018 Status: F Source: [place] EXAM 5:26 PM [facility] REPOSITORY [facility] Medical Records Department [address] [place] [address] History and Physical 01/14/18 1713 MR#: [id number] Acct: [id number] Name: DARYA LARKIN Rep #: [id number] : 1955 62 From: All Karimi DO PCP: Camden Burger Status: ADM IN Y Location: [place] [address] Problem List (1) Bradycardia Status: Acute (2) Digoxin toxicity Status: Acute Qualifiers: Encounter type: initial encounter Injury intent: accidental or unintentional Qualified Code(s): T46.0X1A - Poisoning by cardiac-stimulant glycosides and drugs of similar action, accidental (unintentional), initial encounter History of Present Illness Date of Admission: 01/14/18 Chief Complaint: abdominal pain. shortness of breath. The patient is a 62 year old F sent from her long-term with pain and cough. Patient has had abdominal pain for several months now and was scheduled to see Dr. Sal today. They attempted to get an IV in her give her fluids but patient was unable to get IVs this patient was sent to the emergency room. Patient was noted to have a blood pressure of 90/40 and patient was also noted to be bradycardic with a heart rate in the 40s. Patient was hypoxic into the 80s. Patient underwent a CAT scan of her chest that showed some infiltrate versus atelectasis in the bases. She did undergo an ultrasound of her gallbladder that did show thickened gallbladder wall and sludge within the lumen of the gallbladder. Patient did receive IV fluids. Patient did have a digoxin level performed and came back at 2.74. Patient is poor historian and unable to get adequate history from her so history is primarily to the emergency room physician. [] Past Medical History Past Medical History (Chronic Problems): Chronic Problems (Last Reviewed 12/14/17 @ 13:10 by FRANKLIN Philippe) ABDULLAHI (obstructive sleep apnea) (Chronic) Tobacco dependence due to cigarettes (Chronic) Non-compliance (Chronic) Hypersomnia (Chronic) Anemia (Chronic) Normocytic HTN (hypertension) (Chronic) Morbid obesity with BMI of 40.0-44.9, adult (Chronic) COPD (chronic obstructive pulmonary disease) (Chronic) Chronic pain (Chronic) Chronic atrial fibrillation (Chronic) Chronic hypoxemic respiratory failure (Chronic) non-compliant with oxygen Hyperlipemia (Chronic) Type 2 diabetes mellitus (Chronic) uncontrolled GERD (gastroesophageal reflux disease) (Chronic) Anxiety (Chronic) Insomnia (Chronic) Medical History: Medical History (Last Reviewed 01/14/18 @ 17:16 by All Karimi DO) Hypersomnia (Chronic) G47.10 Anemia (Chronic) D64.9 Normocytic HTN (hypertension) (Chronic) I10 Morbid obesity with BMI of 40.0-44.9, adult (Chronic) E66.01, Z68.41 COPD (chronic obstructive pulmonary disease) (Chronic) J44.9 Chronic pain (Chronic) G89.29 Chronic atrial fibrillation (Chronic) I48.2 Chronic hypoxemic respiratory failure (Chronic) J96.11 non-compliant with oxygen Hyperlipemia (Chronic) E78.5 Type 2 diabetes mellitus (Chronic) E11.9 uncontrolled GERD (gastroesophageal reflux disease) (Chronic) K21.9 Anxiety (Chronic) F41.9 Insomnia (Chronic) G47.00 Osteoporosis M81.0 Cardiomyopathy (Ruled-out) I42.9 EF in Oct 2015 45-50 Left ankle pain (Inactive) M25.572 Non-compliance (Inactive) Z91.19 withn follow up with pulmonary Allergies venom-honey bee [bee venom (honey bee)] Allergy (Verified 12/25/17 13:04) Swelling levofloxacin [From Levaquin] Adverse Reaction (Verified 12/25/17 13:04) Nausea oxycodone HCl [From Percocet] Adverse Reaction (Verified 12/25/17 13:04) Nausea Penicillins Adverse Reaction (Verified 12/25/17 13:04) Nausea/Vom/Diarrhea Home Medications: Ambulatory Orders Medication Instructions Recorded Albuterol Aerosols [Ventolin 2.5 mg INHALATION Q4H PRN PRN 05/12/17 Surgical History: Surgical History (Last Reviewed 01/14/18 @ 17:16 by All Karimi DO) Cataract extraction status Z98.49 History of lumbar surgery Z98.890 History of tonsillectomy and adenoidectomy Z98.890 History of total hysterectomy Z90.710 Surgical History: hysterectomy, tonsillectomy, - - Lumbar surgery. Psychiatric History: Anxiety, Depression COURTROOM REPORTER History: No pertinent COURTROOM REPORTER history Smoking Status: Current every day smoker Tobacco Use: Non-smoker - *Family History Maternal Family History: Family History (Last Reviewed 01/14/18 @ 17:16 by All Karimi DO) Sister Arthritis Diabetes Father Cancer Aunt Diabetes History Items: - - She reports that she is unaware of what her mother's health history was like Paternal Family History: Family History (Last Reviewed 01/14/18 @ 17:16 by All Karimi DO) Sister Arthritis Diabetes Father Cancer Aunt Diabetes History Items: Cancer, - - father with throat cancer. Sibling Family History: Family History (Last Reviewed 01/14/18 @ 17:16 by All Karimi DO) Sister Arthritis Diabetes Father Cancer Aunt Diabetes History Items: Asthma, COPD, Hypertension Review of Systems Constitutional: Reports: Anorexia. Denies: Chills, Fever Eyes: Denies: Blurred vision, Double vision HEENT: Denies: Head Aches, Sinus Congestion, Sinus Drainage Cardiovascular: Denies: Chest Pain, Palpitations Respiratory: Reports: Cough, Shortness of Breath Gastrointestinal: Reports: Abdominal Pain, Nausea. Denies: Diarrhea, Vomiting Genitourinary: Denies: Dysuria Musculoskeletal: Denies: Joint Pain, Joint Tenderness Skin: Denies: Rash, Wounds Neurological: Denies: Balance problems, Blurred vision, Double vision, Focal weakness Psychiatric: Denies: Anxiety, Depression Hematologic/ Lymphatic: Denies: Easy Bruising, Easy Bleeding, Hx of blood clot Comment: A full point review of system is otherwise negative except for as mentioned above and in the HPI. VTE Information - Inpt Only VTE Present on Admission: No VTE Pharm Prophylaxis ordered?: Yes Patient Problems: Active and Suspected Problems (Last Reviewed 12/14/17 @ 13:10 by Marylu Howell NP-C) Bradycardia (Acute) Digoxin toxicity (Acute) - Physical Exam General: Alert, No apparent distress, - - Groggy HEENT: Atraumatic, Normocephalic Oral: No Gingival or Mucosal Lesions/ Ulcerations, Dry Mucosa Neck: No Nodes, Thyroid Normal Size and Texture Lungs: Clear to auscultation, No rhonchi, No wheeze, Diminished Cardiovascular: Regular rate, Regular Rhythm, Normal S1, Normal S2, No murmurs Abdomen: Bowel Sounds Present, Soft, Non Tender, Non-Distended, No Hepato-splenomegaly, Obese Extremities: No clubbing, No cyanosis, No edema, No Calf Tenderness Skin: No rashes, No breakdown Musculoskeletal: No Tenderness to Palpation of Joints or Extremities, No Muscle Wasting Neurological: Sensory exam intact to light touch and pain, - - No clonus Psych/Mental Status: Normal Affect, Appropriate Vital Signs Temp Pulse Resp BP Pulse Ox 36.9 C 53 L 18 89/51 L 94 01/14/18 16:03 01/14/18 16:46 01/14/18 16:46 01/14/18 16:46 01/14/18 16:46 Oxygen Flow Rate (L/min) 5 Oxygen Delivery Method Nasal Cannula Weight: 89.5 kg Body Mass Index (BMI) 37.3 Finger Stick Blood Glucose 364 Laboratory Tests Past 24 Hrs WBC 8.3 RBC 3.94 L WBC RBC Hgb Hct MCV MCH MCHC RDW WBC RBC Hgb Hct MCV MCH MCHC RDW RDW Differential Plt Count MPV Immature Gran % (Auto) Neut % (Auto) Lymph % (Auto) Assessment/Plan All Active Problems (Last Reviewed 12/14/17 @ 13:10 by Marylu Howell, COACH WIRER-C) Bradycardia (Acute) Digoxin toxicity (Acute) Abdominal pain (Acute) Acute encephalopathy (Acute) Acute kidney injury (Acute) HCAP (healthcare-associated pneumonia) (Acute) Acute and chronic respiratory failure with hypoxia (Resolved) Acute bronchitis due to human metapneumovirus (Resolved) Atrial fibrillation with RVR (Resolved) COPD with acute exacerbation (Resolved) Gram-negative pneumonia (Resolved) Syncope (Resolved) Cardiomyopathy (Ruled-out) 1. Bradycardia * Likely due to combination of Digoxin, diltiazem and propranolol * Hold the digoxin and patient will continue with diltiazem propranolol but with hold parameters for a heart rate less than 60 and a systolic blood pressure less than 90 2. Digoxin toxicity * Patient had this earlier this month where her 3.5. Today at 2.7. * Per the discharge summary from the , patient was to hold digoxin and memory care doctor cardiology * Previous to last admission, patient was on 250 mcg of digoxin daily and that is the dose that she is on currently. * As previously mentioned, would continue to hold digoxin and have the patient follow-up with cardiology in regards to whether or not that he should be resumed or not 3. Hypokalemia * Replace * Recheck and check magnesium level 4. Chronic abdominal pain * Ultrasound today showed thickened gallbladder wall and sludge within the lumen of the gallbladder. * No clinical suspicion for acute cholecystitis at this time * Patient will need to follow-up with general surgery as outpatient to see if this will need of management. 5. Chronic respiratory failure * CT scan report was concerning for atelectasis versus infiltrate. * Medically do not feel that the patient has pneumonia so we will not order antibiotics. * Monitor * Check ambulatory pulse ox prior to discharge 6. Chronic atrial fibrillation * Continue with Xarelto * Digoxin on hold * Hold parameters for propranolol and diltiazem 7. DVT prophylaxis with Xarelto 8. Diabetes mellitus type 2 * continue with Lantus and sliding scale insulin Code Visit Inpatient E AND M: [id number] Init Hosp L3 01/14/18 1726 <Electronically signed by All Karimi DO> Date All Karimi DO Cosigner Signature: Date (if applicable) CC: Camden Burger; All Karimi DO; Camden Burger MD Signed CTA CHEST W/WO Observed: 01/14/2018 Status: F Source: [place] CONTRAST 1:45 PM [facility] [place] REPOSITORY [facility] Imaging Services [address] [place] [address] CTA Chest W/WO Contrast MR#: [id number] Acct: [id number] Name: DARYA LARKIN Rep #: [id number] : 1955 F 62 From: Jose Lemos MD PCP: Camden Burger Status: REG ER Study: CTA Chest W/WO Contrast Date of Exam: 01/14/18 Exam# [id number] Ordering Dr: Ross Bailey DO STUDY: CTA CHEST REASON FOR EXAM: Female, 62 years old. Hypoxia. Cough. RADIATION DOSAGE (If Supplied By Facility): CTDIvol = ( 19.64 ) mGy, DLP = ( 712.17 ) mGycm TECHNIQUE: The examination was performed with the intravenous administration of 100mL ml of Isovue 370 contrast material. Post-processing of the angiographic images was performed, with multiplanar reformation and 3D reconstruction. Individualized dose optimization techniques were used for this CT. COMPARISON: Comparison is made with prior study dated May 24, 2014. FINDINGS: Normal enhancement of the main pulmonary artery and right and left pulmonary arteries. Normal enhancement of the bilateral peripheral pulmonary arteries. There is no demonstrated pulmonary embolism. Normal thoracic aorta and visualized great vessels. There is no demonstrated aortic dissection. Normal heart and pericardium. Normal mediastinum. Normal hilar regions. Normal visualized trachea and bronchi. The lungs are well expanded. Patchy bibasilar infiltrates and/or atelectasis. Normal pleura. Normal chest wall structures. There are degenerative changes of thoracic spine. Normal visualized upper abdomen. CT/CTA Chest W/WO Contrast IMPRESSION: Bibasilar patchy infiltrates and/or atelectasis. Electronically Signed: Jose Lemos MD at 15:09 EST Tel [phone], Service support , CC: Camden Burger; Ross Bailey DO Eyeglass Inspector: Signed URINALYSIS, COMPLETE Collected: 01/14/2018 Status: F Source: [place] 1:35 PM [facility] REPOSITORY Order Comment: Has pt arrived? Y How was Urine Obtained? COKE WHEELER TO SPECIFY TYPE CODE TESTS RESULT OUT OF RANGE REFERENCE UNITS LAB L400.3000 Yellow COLOR Normal Yellow LAB L400.3050 Clear Normal CLARITY Sl. Cloudy LAB L400.3200 Normal mg/dl Normal GLUCOSE, UR Normal LAB L400.3300 Negative mg/dL Normal BILIRUBIN URINE Negative LAB L400.3400 Negative mg/dl High 5 KETONE UR LAB L400.3465 1.002-1.030 Normal SP.GR. DIPSTX 1.025 LAB L400.3550 5.0 - 8.0 pH UR Normal 5.0 LAB L400.3600 Negative mg/dl High PROT 30 DIPSTX LAB L400.3700 Normal mg/dl Normal UROBILI Normal LAB L400.3750 Negative Normal NITRITE UR Negative LAB L400.3780 Negative /ul Normal OCCULT BLOOD-UR Negative LAB L400.3800 Negative /ul High LEUK 25 ESTERASE LAB L400.4050 0-5 /hpf WBC Normal 0-5 SEEN LAB L400.4100 0-5 /hpf 0 Normal RBC-UA SEEN LAB L400.4150 5-10 /hpf SQUAM Normal EPI 0-5 SEEN LAB L400.4300 None Seen /hpf 0 Normal BACTERIA SEEN LAB L400.4350 <or=2+ /hpf 0 Normal MUCUS, URINE SEEN Performed By: #### L400.0001 #### [facility] [address] [place], [address] Observed: 01/14/2018 Status: F Source: [place] CULTURE, URINE 1:35 PM [facility] REPOSITORY Has pt arrived? Y Urine Culture Culture exhibits no growth. Performed By: #### M100.0650 #### [facility] [place], [address] Observed: 01/14/2018 Status: F Source: [place] CULTURE, BLOOD (WB) 12:40 PM [facility] REPOSITORY BC No growth in 5 days. Performed By: #### M200.1000 #### [facility] [address] [place] [address], [id number] BLOOD GASES BY CPS Collected: 01/14/2018 Status: F Source: [place] 12:20 PM [facility] REPOSITORY TYPE CODE TESTS RESULT OUT OF RANGE REFERENCE UNITS LAB L9000.9990 Normal BLD GAS TYPE ART LAB L9001.1000 L Normal SITE Brachial LAB L9001.1010 NA Normal VELMA TEST LAB L9001.1050 O2 Normal Delivery Dev Vent Mask LAB L9001.1074 50 Normal FI02 LAB L9001.1104 ED Normal Results To LAB L9001.1105 Normal Time Given 1225 LAB L9001.1110 7.35-7.45 High pH - I-STAT 7.52 LAB L9001.1210 35-45 mmHg Normal pCO2 - ISTAT 35.9 LAB L9001.1310 75-100 mmHG Low 50 PO2 I-STAT LAB L9001.2300 22-26 mmol/L High HCO3 ISTAT 29.1 LAB L9001.2400 -2 to +2 mmol/L High BE 6 ISTAT LAB L9001.2415 mmol/L 30 Normal TOTAL CO2 ISTAT LAB L9001.2425 95-99 % Low 89 SO2 ISTAT Performed By: #### L9000.0800 #### [facility] Point of [place] [address] CBC W/DIFF, AUTOMATED Collected: 01/14/2018 Status: F Source: [place] 11:50 AM [facility] REPOSITORY TYPE CODE TESTS RESULT OUT OF RANGE REFERENCE UNITS LAB L100.1000 4.4-11.0 K/mm3 Normal WBC 8.3 LAB L100.1200 4.2-5.4 M/mm3 Low RBC 3.94 LAB L100.1300 12.0-15.0 g/dl Low HGB 10.9 LAB L100.1400 37-47 % Low HCT 34.7 LAB L100.1500 81-99 fL Normal MCV 88.1 LAB L100.1600 27.0-32.0 pg Normal MCH 27.7 LAB L100.1700 32-36 g/gl Low MCHC 31.4 LAB L100.1810 11.6-14.6 % High RDW CV 18.7 LAB L100.1820 35.1-43.9 fl High RDW SD 58.7 LAB L100.1900 150-450 K/mm3 Normal PLT 223 LAB L100.2000 6.2-12.0 fl Normal MPV 11.3 LAB L100.2100 47-70 % Normal NEUT% 60.7 LAB L100.2200 19-41 % Normal LY% 25.0 LAB L100.2300 0-10 % High MONO% 10.4 LAB L100.2400 0-5 % Normal EO% 3.5 LAB L100.2500 0-1 % Normal BASO% 0.2 LAB L100.2550 0.0-0.9 % Normal IM GRAN % 0.200 Result Comment: IG% - Immature Granulocytes (promyelocytes, myelocytes and metamyelocytes) > 1% indicates that a LEFT SHIFT is Present. LAB L100.2620 2.0-7.7 X10 3/uL Normal Absolute Neut 5.1 LAB L100.2720 0.83-4.51 X10 3/ul Normal Absolute Lymph 2.08 Performed By: #### L100.0100 #### [facility] [address] [place], [place], [address] PROTHROMBIN TIME W/INR Collected: 01/14/2018 Status: F Source: [place] 11:50 AM [facility] REPOSITORY TYPE CODE TESTS RESULT OUT OF RANGE REFERENCE UNITS LAB L300.4150 11.7-14.9 SECONDS High PROTIME 18.9 LAB L300.4200 Normal INR 1.6 Performed By: #### L300.3900, L300.4310 #### [facility] [address] [place], [place], [address] PARTIAL THROMBOPLAST Collected: 01/14/2018 Status: F Source: [place] TIME 11:50 AM [facility] REPOSITORY TYPE CODE TESTS RESULT OUT OF RANGE REFERENCE UNITS LAB L300.4310 24.1-36.2 Seconds Normal PTT 34.3 Performed By: #### L300.3900, L300.4310 #### [facility] [address] [place], [place], [address] COMPREHENSIVE METABOLIC Collected: 01/14/2018 Status: F Source: [place] PROFIL 11:50 AM [facility] REPOSITORY TYPE CODE TESTS RESULT OUT OF RANGE REFERENCE UNITS LAB L501.0100 74-106 mg/dL High GLU 155 Result Comment: Fasting Glucose result greater than or equal to 126 mg/dL suggests DIABETES MELLITUS per A.D.A. criteria. Please note revised GLUCOSE reference range effective 2017. LAB L501.1000 7-18 mg/dL Normal BUN 17 LAB L501.1100 0.55-1.02 mg/dL Normal CREAT,SERUM 0.88 Result Comment: The validity of the calculated GFR AND GFRAA in patients over 70 years has not been determined. Clinical correlation is essential. LAB L501.1110 >60 mL/min Normal EST GFR 70 Result Comment: Non- GFR Calc LAB L501.1115 >60 mL/min Normal EST GFR - AA 84 Result Comment: GFR Calc LAB L501.1255 ml/min Normal Estimated CRCL 50.02 LAB L501.1300 10-20 RATIO Normal BUN/CRE 19.4 LAB L501.1500 6.4-8. g/dL Low 2 T PROT 6.3 LAB L501.1800 3.2-5. g/dL Low 0 ALB 2.5 LAB L501.1950 2.2-4. g/dL Normal 2 GLOB 3.8 LAB L501.2000 0.9-2. RATIO Low 4 A/G 0.7 LAB L501.2200 8.5-10 mg/dL Low .1 CA 8.3 LAB L501.4100 15-37 U/L Low AST 14 LAB L501.4305 45-117 U/L Normal ALK P 110 LAB L501.4405 13-56 U/L Normal ALT 19 LAB L501.4600 0.20-1 mg/dL Normal .00 T BILI 0.70 LAB L501.5300 136-14 mmol/L Normal 5 NA 140 LAB L501.5600 3.5-5. mmol/L Low 1 K 3.2 LAB L501.5900 98-107 mmol/L Normal CL 104 LAB L501.6100 21.0-3 mmol/L Normal 2.0 CO2 29.0 LAB L501.6200 5-15 Normal GAP 7 Performed By: #### L500.4050, L501.2450, L501.4010 #### [facility] [address] [facility] [place], [place], [address] LIPASE Collected: 01/14/2018 Status: F Source: [place] 11:50 AM [facility] REPOSITORY TYPE CODE TESTS RESULT OUT OF REFERENCE UNITS RANGE LAB L501.2450 73-393 U/L Low LIPASE 33 Performed By: #### L500.4050, L501.2450, L501.4010 #### [facility] [address] [facility] [place], [place], [address] TROPONIN-I Collected: 01/14/2018 Status: F Source: [place] 11:50 AM [facility] REPOSITORY TYPE CODE TESTS RESULT OUT OF RANGE REFERENCE UNITS LAB L501.4010 <0.045 ng/mL Normal < 0.015 TROPONIN-I Result Comment: TROPONIN-I EXPECTED VALUES <0.045 Negative 0.045 - 0.590 Consistent with Cardiac Damage > OR = 0.600 Critical Value Not every elevated troponin is indicative of KS. These values should be used with clinical judgement in examining the patient's clinical picture for diagnosis. To establish a diagnosis of KS versus myocardial injury, there must be a demonstrated rise and/or fall in the troponin values, in addition to ischemic symptoms, EKG changes, new regional wall motion abnormality, and/or angiographical evidence. PLEASE NOTE: REFERENCE RANGES EDITED 17 Performed By: #### L500.4050, L501.2450, L501.4010 #### [facility] [address] [place], [place], [id number] LACTIC ACID Collected: 01/14/2018 Status: F Source: [place] 11:50 AM [facility] REPOSITORY Order Comment: Yes/No query for Sepsis Lactate Rule Y TYPE CODE TESTS RESULT OUT OF RANGE REFERENCE UNITS LAB L503.6005 0.4-2.0 mmol/L Normal LACTIC ACID 0.7 Performed By: #### L503.6005 #### [facility] [address] [place], [place], [address] DIGOXIN LEVEL Collected: 01/14/2018 Status: F Source: [place] 11:50 AM [facility] REPOSITORY TYPE CODE TESTS RESULT OUT OF RANGE REFERENCE UNITS LAB L501.7510 0.80-2.00 ng/mL High alert DIG 2.74 Result Comment: Critical Result(s) Called at: 13:25:20 01/14/2018 by: Mercedes rodríguez RN (ER). Digoxin concentrations greater than 2.00 ng/mL are potentially toxic. Performed By: #### L501.7510 #### [facility] [address] [place], [place], [address] Observed: 01/14/2018 Status: F Source: [place] CULTURE, BLOOD (WB) 11:50 AM [facility] REPOSITORY BC No growth in 5 days. Performed By: #### M200.1000 #### [facility] [address] [place], [address] CHEST 1 VIEW Observed: 01/14/2018 Status: F Source: [place] (PORTABLE) 11:39 AM [facility] REPOSITORY [facility] Imaging Services [address] [place] [address] Chest 1 View (Portable) MR#: [id number] Acct: [id number] Name: DARYA LARKIN Rep #: [id number] : 1955 F 62 From: Jose Lemos MD PCP: Camden Burger Status: REG ER Study: Chest 1 View (Portable) Date of Exam: 01/14/18 Exam# [id number] Ordering Dr: Ross Bailey DO STUDY: X-RAY CHEST REASON FOR EXAM: Female, 62 years old. Cough and shortness of breath. TECHNIQUE: Single AP portable view of the chest. COMPARISON: Comparison is made with prior study dated December 25, 2017. FINDINGS: EKG electrodes are seen. The lungs are clear and expanded. There is no demonstrated pleural abnormality. Normal size heart. Normal mediastinum and sangeeta. Normal visualized pulmonary arteries. There is atherosclerotic calcification of the aortic arch with tortuosity. There are degenerative changes of the visualized thoracic spine. Normal visualized ribs, clavicles, and shoulders. There is no demonstrated abnormality of the visualized soft tissue structures of the upper abdomen. RAD/Chest 1 View (Portable) IMPRESSION: No acute abnormality is seen. Electronically Signed: Jose Lemos MD at 12:23 EST Tel [phone], Service support , CC: Camden Burger; Ross Bailey DO Eyeglass Inspector: Signed GALLBLADDER Observed: 01/14/2018 Status: F Source: [place] 11:39 AM [facility] REPOSITORY [facility] Imaging Services [address] [place] [address] Gallbladder MR#: [id number] Acct: [id number] Name: DARYA LARKIN Rep #: [id number] : 1955 F 62 From: Jose Lemos MD PCP: Camden Burger Status: REG ER Study: Gallbladder Date of Exam: 01/14/18 Exam# [id number] Ordering Dr: Ross Bailey DO STUDY: ABDOMINAL ULTRASOUND - RIGHT UPPER QUADRANT REASON FOR VISIT: Female, 62 years old. Gallstones. TECHNIQUE: Ultrasound evaluation of the right upper quadrant was performed with real-time and static veliz-scale imaging. TECHNICAL QUALITY: Adequate. COMPARISON: Comparison is made with prior study dated December 25, 2017. FINDINGS: Liver: The liver measures 16.1 cm. There is increased echogenicity consistent with fatty infiltration. The bile ducts are within normal limits. There is hepatic color flow. The direction of portal flow is hepatopetal. There is no demonstrated mass lesion. Gallbladder: Normal distended gallbladder. The gallbladder wall is thickened and measures 5 mm. There is a negative sonographic Pacheco's sign. There is no pericholecystic fluid. Tumefactive sludge is seen within the gallbladder lumen. Common Bile Duct (C.B.D.): The common bile duct measures 3.0 mm. Pancreas: Normal size of the head, body and tail of the pancreas. There is normal echogenicity of the pancreas. There is no demonstrated pancreatic mass or cyst. Right Kidney: Normal size of the right kidney. The right kidney measures 12.1 cm x 5.0 cm x 4.3 cm. Normal renal cortex. The right cortex measures 1.4 cm. There is no demonstrated renal mass or cyst. There is no right hydronephrosis. US/Gallbladder IMPRESSION: Thickened gallbladder wall. Tumefactive sludge is seen within the gallbladder lumen. Electronically Signed: Jose Lemos MD at 15:30 EST Tel [phone], Service support , CC: Camden Burger; Ross Bailey DO Eyeglass Inspector: Signed 12 LEAD ELECTROCARDIOGRAM Observed: 12/30/2017 Status: F Source: [place] 11:33 AM [facility] REPOSITORY [facility] Cardiovascular Services [address] [place] [address] 12 Lead EKG 12/26/17 0537 MR#: [id number] Acct: [id number] Name: DARYA LARKIN Rep #: [id number] : 1955 62 From: Lan Lilly MD Attending Dr: Jessica Fabian Status: DIS IN Ordering Dr: Jo Esposito Date: 12/26/17 Location: [facility] Sex: F C Admitted: 12/25/17 Test Reason : AM EKG Blood Pressure : / mmHG Vent. Rate : 058 BPM Atrial Rate : 032 BPM P-R Int : 000 ms QRS Dur : 084 ms QT Int : 374 ms P-R-T Axes : 000 063 -51 degrees QTc Int : 367 ms Atrial fibrillation with slow ventricular response ST AND T wave abnormality, consider inferior ischemia Abnormal ECG When compared with ECG of 25-DEC-2017 13:22, MANUAL COMPARISON REQUIRED, DATA IS UNCONFIRMED Confirmed by VIJAYA DELGADO, LAN ([id number]), photography editor DIANA GALVEZ ([id number]) on 12/30/2017 11:33:33 AM Referred By: VAIBHAV Confirmed By:LAN LILLY MD 12/30/17 1133 Date Lan Lilly MD CC: Camden Burger; Jo Burger MD Signed EMERGENCY DEPARTMENT Observed: 12/30/2017 Status: F Source: [place] SUMMARY 8:39 AM [facility] REPOSITORY [facility] Medical Records Department [address] [place] [address] Emergency Department Summary 12/23/17 1453 MR#: [id number] Acct: [id number] Name: DARYA LARKIN Rep #: [id number] : 1955 62 From: Ross Bailey DO PCP: Camden Burger Status: DEP ER - ER Visit Summary Date of Service: 12/23/17 Chief Complaint: Altered mental status History of Present Illness: The patient is a 62 F who was sent in from long-term. Patient sees Dr. Burger. She stays in [place]. She has extensive medical history including A. fib (on Xarelto), COPD (home oxygen), diabetes obesity hypertension high cholesterol. Approximately 1 week ago was diagnosed with an ileus on x- ray. She is now complaint of right upper quadrant pain. She seems confused per her practitioner as well as possibly jaundiced. No reported fevers. He continues to smoke but has been unable to do so today. Physical Examination: Afebrile vital signs stable Gen: Well-nourished well-developed obese Head: Normocephalic atraumatic Eyes: Perrl EOMI ENT: TMs clear no rhinorrhea moist mucous membranes Neck: Supple no lymphadenopathy no JVD nontender CVS: Irregularly irregular rate rhythm no murmurs normal S1-S2 Respiratory: No distress clear to auscultation bilaterally chest nontender Abdomen: Soft nontender nondistended normal bowel sounds no masses Back: Nontender Extremity: Nontender no edema Skin: Normal color no rash Neuro: alert orientated 3 CN II-XII intact normal strength sensation reflexes (patient keeps her eyes closed and says 1 word sentences and seems weak however depending on the question she is able to open her eyes and speak very fluently and long sentences. When not asked to move her extremities she is able to do so but when asked to move certain once for testing she moves weakly. Test Results: CT brain negative. CT of the pelvis no acute. There is a possible right middle lobe infiltrate. Chest x-ray no acute. EKG A. fib at a rate of 68 white count 9.5 hemoglobin 11.5. Lactic acid normal. Troponin negative. Urinalysis specific gravity 1.03. Ammonia level negative. Emergency Department Course and Treatment: Patient is not coughing. She does not complain of shortness of breath. Her lung sounds are clear. I am not convinced she has a pneumonia. I spoke with Dr. Burger who is comfortable with patient going back to long-term. Report was called but the patient's blood pressure dropped. She received IV fluids. Manual blood pressure 98/62 Impression: 1. Acute abdominal pain 2. Altered mental status This note was generated with Innoz dictation software. It may contain incorrect words, spelling, and punctuation that were not noted in review of the chart prior to signing ED Disposition - Plan for ED Patient: Disposition: Home or Assisted Living Chief Complaint: Alt LOC Instructions: ED Abdominal Pain Unkn Cause Referrals: Camden Burger [Primary Care Provider] - 3-5 Days if not improving What to do if you have Problems For any increased pain, shortness of breath, bleeding, nausea or vomiting, chest pain, or any unexpected problems, contact your Primary Care Provider. Call [facility] ([phone]) or report to the closest Emergency Room. Call 911 if necessary. 12/30/17 0839 <Electronically signed by Ross Bailey DO> Date Ross Bailey DO Cosigner Signature (If Indicated): Date CC: Camden Burger; Camden Burger MD DISCHARGE SUMMARY Observed: 12/29/2017 Status: F Source: [place] 10:37 AM [facility] REPOSITORY [facility] Medical Records Department [address] [place] [address] Discharge Summary 12/28/17 1201 MR#: [id number] Acct: [id number] Name: DARYA LARKIN Rep #: [id number] : 1955 62 From: Marie Hoover COACH WIRERRyanC PCP: Camden Burger Status: DIS IN Y Location: [place] [id number] ADDENDUM by Jessica Fabian on 12/29/17 at 1037 Code Visit Minutes spent on discharge: 36 minutes. 12/29/17 1037 <Electronically signed by Jessica Fabian MD> Date Jessica Fabian MD cc: COACH WIRER-C Marie Hoover; Camden Burger; Jessica Fabian; Camden Mccormick MD; Camden Burger MD * Signed <Marie Hoover - Last Filed: 12/28/17 12:14> Discharge Date and Diagnosis Date of Admission: 12/25/17 Date of Discharge: 12/28/17 - Primary Discharge Diagnosis Active and Suspected Problems (Last Reviewed 12/14/17 @ 13:10 by Marylu Howell NP-Lian) 1. Acute healthcare acquired right lower lobe pneumonia 2. Acute kidney injury secondary to dehydration 3. Acute toxic and metabolic encephalopathy 4. Acute lactobacillus cystitis 5. Bradycardia/digoxin toxicity 6. Chronic hypoxic respiratory failure due to chronic severe COPD - Secondary Discharge Diagnosis Chronic Problems (Last Reviewed 12/14/17 @ 13:10 by Marylu Howell NP-C) ABDULLAHI (obstructive sleep apnea) (Chronic) Tobacco dependence due to cigarettes (Chronic) Non-compliance (Chronic) Hypersomnia (Chronic) Anemia (Chronic) Normocytic HTN (hypertension) (Chronic) Morbid obesity with BMI of 40.0-44.9, adult (Chronic) COPD (chronic obstructive pulmonary disease) (Chronic) Chronic pain (Chronic) Chronic atrial fibrillation (Chronic) Chronic hypoxemic respiratory failure (Chronic) non-compliant with oxygen Hyperlipemia (Chronic) Type 2 diabetes mellitus (Chronic) uncontrolled GERD (gastroesophageal reflux disease) (Chronic) Anxiety (Chronic) Insomnia (Chronic) Hospital Course and Treatment Imaging Results: Diagnostic Data Chest X-Ray 12/25/17 15:50 IMPRESSION: No acute cardiopulmonary disease or interval change. Electronically Signed: Lazaro Freeman DO at 16:24 EST Tel [phone], Service support , Brain CT 12/25/17 17:07 IMPRESSION: Chronic involutional changes of the brain. Electronically Signed: Musa Patel MD at 17:54 EST , Service support , Abdomen Ultrasound 12/25/17 17:38 IMPRESSION: Question mild fatty infiltration of the liver without mass. No other sonographic evidence of right upper quadrant abnormality. Electronically Signed: Lazaro Freeman DO at 19:15 EST Tel [phone], Service support , Operations: None Procedures: None Summary of Care Provided: Patient is a 61-year-old female admitted 12/25/17 due to abdominal pain, poor appetite, lethargy. She has a past medical history of COPD, chronic atrial fibrillation, hypertension, type 2 diabetes mellitus, hyperlipidemia, GERD, anxiety, chronic hypoxic respiratory failure, obesity, ABDULLAHI. 1. Acute healthcare acquired pneumonia-CT of abdomen 12/23/2017 showed right lower lobe infiltrate infiltrate. Blood cultures show no growth in 48 hours. Urine for strep and Legionella negative. Unable to send sputum for culture. Continue home aerosol/inhaler regimen. Received IV Zosyn and IV vancomycin. Patient will be discharged on Augmentin 875 mg p.o. twice daily for 7 days. 2. Acute kidney injury-secondary to #1 and dehydration. Resolved with IV fluids. 3. Acute toxic and metabolic encephalopathy-brain CT with chronic changes. Secondary to #1/#2/#4. Resolved. Urine tox screen positive for methamphetamine and opiates, coincides with home medication regimen. Patient noted to have digoxin toxicity. 4. Acute lactobacillus cystitis/Abdominal pain-CT of abdomen and pelvis obtained as outpatient 12/23/2017 which showed sludge or small gallstones in the gallbladder. Right upper quadrant abdominal ultrasound showed mild fatty liver infiltration without mass. No evidence of right upper quadrant abnormality. UA negative. Urine culture shows lactobacillus species greater than 100,000 colony count. Discharge on Augmentin as noted above. 5. Bradycardia/digoxin toxicity-secondary to medication regimen including digoxin, Cardizem, propanolol regimen. Digoxin level 3.54. Rate improved. Patient will resume Cardizem and propanolol at discharge. Continue to hold digoxin until further follow-up with primary care physician or cardiology. 6. Chronic hypoxic respiratory failure due to chronic severe COPD-continue supplement oxygen to maintain O2 at or above 90%. Patient treated with IV Solu- Medrol during admission for wheezing although patient has chronic wheezing due to severe COPD. Will discharge on prednisone 40 mg x 5 days. Do not feel patient had acute exacerbation of COPD. Continue outpatient follow-up with pulmonary medicine as scheduled. 7. Chronic atrial fibrillation-continue Xarelto, Cardizem, propanolol. Hold digoxin as noted above. 8. Type 2 diabetes mellitus-continue home insulin regimen. Glucose elevated during admission due to IV Solu-Medrol. Continue Accu-Cheks before meals at bedtime with sliding scale insulin and long-acting regimen at discharge. Long-acting regimen may need titrated up if glucose remains elevated. Hemoglobin A1c 11/23/2017 9.4%. 9. Hypertension-stable. 10. Hyperlipidemia-continue statin. 11. History of mild cardiomyopathy- echo 07/11/17 with EF 75%. 12. GERD-continue home famotidine regimen. 13. Anxiety-continue home buspirone, bupropion regimen. 14. Obesity-encouraged diet and lifestyle modifications. 15. Tobacco dependence-encourage smoking cessation. 60. Obstructive sleep apnea-unclear if patient wears CPAP/BiPAP. Follows with pulmonary medicine. General: Alert, Oriented x3, Cooperative HEENT: Atraumatic, PERRLA, EOMI, Normocephalic Neck: Supple, No JVD, Negative Carotid Bruits Lungs: Diminished, Wheezes Cardiovascular: - - Atrial fibrillation, rate controlled Abdomen: Bowel Sounds Present, Soft, Non Tender, Non-Distended Extremities: No clubbing, No cyanosis, No edema, Capillary Refill Less than 3 Seconds Skin: No rashes, No breakdown Musculoskeletal: No Tenderness to Palpation of Joints or Extremities Neurological: Cranial nerves II-XII grossly intact, Neuro grossly intact Psych/Mental Status: Normal Affect, Appropriate Patient seen and examined prior to discharge. Physical assessment as noted above. Patient stable for discharge to SNF with the follow-up recommendations as noted above. This patient was seen by FRANKLIN Cardenas under the supervision of Dr. Fabian. - Physical Exam Vital Signs Temp Pulse Resp BP Pulse Ox 98.4 F 89 18 154/72 H 93 12/28/17 09:00 12/28/17 09:00 12/28/17 09:00 12/28/17 09:00 12/28/17 09:00 Oxygen Flow Rate (L/min) 2 Oxygen Delivery Method Room Air Weight: 194 lb 3.636 oz Body Mass Index (BMI) 36.6 Finger Stick Blood Glucose 364 Intake and Output for Last 24 Hours Intake Total 3918.4 / 3918.4 2777 / 2777 2181.8 / 2181.8 Output Total 500 / 500 800 / 800 Balance 3918.4 / 3918.4 2277 / 2277 1381.8 / 1381.8 Microbiology Past 72 Hours 12/25/17 16:23 Urine Culture - Final Urine, Catheterized Lactobacillus sp. 12/25/17 15:05 Blood Culture - Preliminary Blood Culture (Wb) - Anticubital Left No growth in 48 hours. Laboratory Tests Past 24 Hrs WBC 9.8 RBC 3.85 L Hgb 10.5 L Hct 32.7 L MCV 84.9 MCH 27.3 MCHC 32.1 POC Glucose POC Glucose 236 H 370 H 412 H Home Medications: Medications to take at Discharge Albuterol Aerosols [Ventolin Aerosols] 2.5 mg INHALATION Q2H PRN PRN 05/12/17 Atorvastatin Calcium [Lipitor] 40 mg PO QHS 05/12/17 Budesonide/Formoterol 160/4.5 [Symbicort 160/4.5 Mcg Inhaler (SP)] 2 puff INHALATION BID 05/12/17 Bupropion HCl [Bupropion HCl Sr] 150 mg PO BID 05/12/17 Buspirone HCl 10 mg PO TID 05/12/17 Famotidine [Pepcid] 20 mg PO BID 05/12/17 Glucagon,Human Recombinant [Glucagon Emergency Kit] 1 mg IM PRN PRN 05/12/17 Ipratropium/Albuterol Sulfate [Duoneb] 3 ml INHALATION Q6H PRN 05/12/17 Lisinopril [Prinivil] 5 mg PO DAILY 05/12/17 Propranolol HCl [Inderal (Beta Lou)] 10 mg PO BID 05/12/17 Sennosides/Docusate Sodium [Senna-Docusate Sodium Tablet] 2 tab PO DAILY PRN PRN 05/12/17 Mag Hydrox/Al Hydrox/Simeth [Mylanta II] 30 ml PO Q6H PRN PRN 08/11/17 docusate sodium 100 mg capsule 100 mg PO QHS 09/01/17 Rivaroxaban [Xarelto] 20 mg PO DAILY #0 11/03/17 Calcium Carbonate [Tums] 500 mg PO Q6H PRN PRN 11/20/17 Insulin Lispro [Humalog KwikPen] See Protocol SUBCUT 4X/DAYCM insuln.pen 11/24/17 Benzonatate [Tessalon Perle] 100 mg PO TID PRN PRN 12/23/17 Bisacodyl [Dulcolax] 10 mg RECTAL DAILY 12/23/17 Duloxetine HCl 60 mg PO DAILY 12/23/17 Furosemide [Lasix] 40 mg PO BIDLX 12/23/17 Gabapentin [Neurontin] 100 mg PO TIDCM 12/23/17 Guaifenesin [Mucinex] 1,200 mg PO BID PRN 12/23/17 Hydrocodone/Acetaminophen [Hydrocodone-Acetamin 5-325 mg] 1 each PO Q6H PRN 12/23/17 Loperamide [Imodium] 2 mg PO PRN PRN 12/23/17 Polyethylene Glycol 3350 [Miralax] 17 gm PO DAILY 12/23/17 Acetaminophen 650 mg PO PRN PRN 12/25/17 Diltiazem HCl [Diltiazem 12Hr ER] 120 mg PO BID 12/25/17 Insulin Glargine,Hum.rec.anlog [Basaglar Kwikpen U-100] 20 unit SQ QHS 12/25/17 Magnesium Hydroxide [Milk of Magnesia] 30 ml PO DAILY 12/25/17 Ondansetron HCl [Zofran] 4 mg PO Q6H PRN PRN 12/25/17 Amox/Clavulanate Tablet [Augmentin Tablet] 875 mg PO Q12H #14 tablet 12/28/17 Digoxin 250 mcg PO DAILY #0 12/28/17 Prednisone 40 mg PO DAILY 5 Days tablet 12/28/17 Following Prescrptions Were Given to Patient: Amox/Clavulanate Tablet [Augmentin Tablet] 875 mg PO Q12H #14 tablet Prednisone 40 mg PO DAILY 5 Days tablet Primary Care Physician: Camden Burger [Primary Care Provider] - Please follow up with your Primary Care Physician in: 1 Week Please Follow Up With: Matthias Chong MD When: As scheduled Please Follow Up With: Camden Mccormick MD When: 1 Week Disposition: [facility] facility Minutes spent on discharge:: 35 Patient Condition:: Stable Medical Necessity - Tobacco Use Smoking Status: Current some day smoker Tobacco Use: Cigarettes Meaningful Use Info Meaningful Use Diagnoses (Choose all that apply): None applicable <Jessica Fabian - Last Filed: 12/28/17 13:39> Discharge Date and Diagnosis - Secondary Discharge Diagnosis Chronic Problems (Last Reviewed 12/14/17 @ 13:10 by BRIGIDO PhilippeC) ABDULLAHI (obstructive sleep apnea) (Chronic) Tobacco dependence due to cigarettes (Chronic) Non-compliance (Chronic) Hypersomnia (Chronic) Anemia (Chronic) Normocytic HTN (hypertension) (Chronic) Morbid obesity with BMI of 40.0-44.9, adult (Chronic) COPD (chronic obstructive pulmonary disease) (Chronic) Chronic pain (Chronic) Chronic atrial fibrillation (Chronic) Chronic hypoxemic respiratory failure (Chronic) non-compliant with oxygen Hyperlipemia (Chronic) Type 2 diabetes mellitus (Chronic) uncontrolled GERD (gastroesophageal reflux disease) (Chronic) Anxiety (Chronic) Insomnia (Chronic) Hospital Course and Treatment Summary of Care Provided: Hospitalist note: Discharge summary above reviewed and I agree with above discharge plan. Patient was admitted for pain, lethargy and poor appetite and she was found to have focal infiltrate of the posterior medial segment of the right lower lobe on CT scan abdomen and pelvis that was done 2 days before admission and she was diagnosed with healthcare associated pneumonia. She was treated with IV Zosyn and vancomycin. Her pneumococcal and Legionella antigen were negative. Blood culture showed no growth in 48 hours. Urine culture revealed lactobacillus. Respiratory panel for viruses were negative. She was found to have acute kidney injury which is attributed to infection and poor oral intake, was treated with IV fluids and his creatinine came down back to normal. On admission, patient was confused which is attributed to metabolic encephalopathy secondary to pneumonia and acute kidney injury. CT scan brain showed no acute findings. Patient has been on digoxin for chronic atrial fibrillation and her digoxin level was elevated consistent with digoxin toxicity. Her heart rate has been stable throughout admission. With above-mentioned treatment, patient is improved and she remained afebrile for more than 48 hours. Her oxygen improved and she was able to maintain her pulse ox at 93% on room air. Patient discharged to residential facility in a stable medical condition, discharged on Augmentin to complete 7 days of treatment discharged on prednisone 40 mg p.o. daily for 5 days, continued on Xarelto, Cardizem and metoprolol for chronic atrial fibrillation, digoxin held because of digoxin toxicity, recommended follow-up with PCP in 1 week, follow-up with pulmonology according to Dr. Chong, follow-up with cardiology in 1 week. - Physical Exam General: Alert, Oriented x3, Cooperative, No apparent distress. HEENT: Atraumatic, PERRLA, EOMI. Neck: Supple, No JVD, Negative Carotid Bruits, Trachea Midline, Thyroid Normal. Lungs: Diminished breath sounds bilateral, otherwise clear, No rhonchi, No wheeze, No rales. Cardiovascular: iregular Rhythm, Normal S1, Normal S2, PMI Normal. Abdomen: Bowel Sounds Present, Soft, Non Tender, Non-Distended, No Hepato-splenomegaly. Extremities: No clubbing, No cyanosis, No edema Skin: No rashes, No breakdown Neurological: Neuro grossly intact Vital Signs are stable. This note was generated with Innoz dictation software. It may contain incorrect words, spelling, and punctuation that were not noted in checking the note before signing. - Physical Exam Vital Signs Temp Pulse Resp BP Pulse Ox 98.4 F 76 19 H 154/72 H 93 12/28/17 09:00 12/28/17 12:01 12/28/17 12:01 12/28/17 09:00 12/28/17 09:00 Oxygen Flow Rate (L/min) 2 Oxygen Delivery Method Room Air Weight: 194 lb 3.636 oz Body Mass Index (BMI) 36.6 Finger Stick Blood Glucose 364 Intake and Output for Last 24 Hours Intake Total 3918.4 / 3918.4 2777 / 2777 2181.8 / 2181.8 Output Total 500 / 500 800 / 800 Balance 3918.4 / 3918.4 2277 / 2277 1381.8 / 1381.8 Microbiology Past 72 Hours 12/25/17 16:23 Urine Culture - Final Urine, Catheterized Lactobacillus sp. 12/25/17 15:05 Blood Culture - Preliminary Blood Culture (Wb) - Anticubital Left No growth in 48 hours. Laboratory Tests Past 24 Hrs WBC 9.8 RBC 3.85 L Hgb 10.5 L Hct 32.7 L MCV 84.9 MCH 27.3 MCHC 32.1 POC Glucose POC Glucose 236 H 370 H 412 H Meaningful Use Info Meaningful Use Diagnoses (Choose all that apply): None applicable Code Visit Inpatient E AND M: 09234 Disch Hosp 12/28/17 1215 <Electronically signed by Marie FOFANAC> Date Marie FOFANAC 12/28/17 1339<Electronically signed by Jessica Fabian MD> Cosigner Signature (if applicable): Date Jessica Fabian MD CC: FRANKLIN Hoover; Camden Burger; Jessica Fabian; Camden Mccormick MD; Camden Burger MD Signed 12 LEAD ELECTROCARDIOGRAM Observed: 12/28/2017 Status: F Source: [place] 2:07 PM [facility] REPOSITORY [facility] Cardiovascular Services [address] [place] [address] 12 Lead EKG 12/25/17 1322 MR#: [id number] Acct: [id number] Name: DARYA LARKIN Rep #: [id number] : 1955 62 From: Ross Lombardi MD Attending Dr: Jessica Fabian Status: ADM IN Ordering Dr: Cameron Bradford MD Date: 12/25/17 Location: [facility] Sex: F C Admitted: 12/25/17 Test Reason : DAVID Blood Pressure : / mmHG Vent. Rate : 046 BPM Atrial Rate : 055 BPM P-R Int : 000 ms QRS Dur : 084 ms QT Int : 402 ms P-R-T Axes : 000 065 002 degrees QTc Int : 351 ms Atrial fibrillation with slow ventricular response ST AND T wave abnormality, consider anterior ischemia Abnormal ECG Confirmed by ROSS LOMBARDI ([id number]), photography editor DIANA GALVEZ ([id number]) on 12/28/2017 2:07:38 PM Referred By: TOMASA Confirmed By:ROSS LOMBARDI 12/28/17 5262 Date Ross Lombardi MD CC: Camden Burger; Jessica Fabian; Camden Burger MD; Cameron Bradford MD Signed TRANSFER TO [facility] Observed: 12/28/2017 Status: F Source: [facility] 12:04 PM [facility] REPOSITORY [facility] Medical Records Department [address] [place] [address] Transfer to Extended Care MR#: [id number] Acct: [id number] Name: DARYA LARKIN Rep #: [id number] : 1955 62 From: Marie REID PCP: Camden Burger Status: ADM IN DARYA LARKIN (Patient) (Health Ins. Claim No.) (Day of Discharge to Facility) Certification of patient admission REQUIRED AT TIME OF ADMISSION. I CERTIFY THAT POST-HOSPITAL ECF SERVICES ARE REQUIRED TO BE GIVEN ON AN IN-PATIENT BASIS BECAUSE OF THE ABOVE NAMED PATIENT'S NEED FOR PRISON CARE ON A CONTINUING BASIS FOR THE CONDITION(S) FOR WHICH HE/SHE WAS RECEIVING IN-PATIENT HOSPITAL SERVICES PRIOR TO HIS/HER TRANSFER TO THE ECF. 12/28/17 1204 <Electronically signed by Jessica Fabian MD> Date: - Diet 12/28/17 09:16 Diet: Regular Diet Food consistency:: Regular Liquid Consistency:: Regular/Thin Is pt able to select menu?: Yes Diet Comments: Supervision as requested; assistance w/ setup; seated at 90 degrees - Routine Orders/Code Status Enema Type: Fleetz Enema Frequency: Daily PRN Suppository Type: Dulcolax 10mg Suppository Frequency: Daily PRN O2 Liters per Minute: 2-4 O2 Frequency: PRN Keep PO Greater than or Equal to (%): 90 Routine Lab Work: CBC, BMP, - - Weekly Code Status: Full Code - Wound(s) Coccyx Wound Type: Pressure Injury - Suggestions for Active Care Change Position every (hours): 2 Times a day to sit in chair: 3 - Therapies Physical Therapy: Eval and Treat Occupational Therapy: Eval and Treat Speech Therapy: Eval and Treat - Problem/Diagnosis (1) Abdominal pain Status: Acute Current Visit: Yes (2) ABDULLAHI (obstructive sleep apnea) Status: Chronic Current Visit: No (3) Tobacco dependence due to cigarettes Status: Chronic Current Visit: No (4) Non-compliance Status: Chronic Current Visit: No (5) Syncope Status: Resolved Current Visit: No (6) Hypersomnia Status: Chronic Current Visit: No (7) Anemia Status: Chronic Comment: Normocytic Current Visit: No (8) HTN (hypertension) Status: Chronic Current Visit: No (9) Morbid obesity with BMI of 40.0-44.9, adult Status: Chronic Current Visit: No (10) COPD (chronic obstructive pulmonary disease) Status: Chronic Current Visit: No (11) Chronic pain Status: Chronic Current Visit: No (12) Chronic atrial fibrillation Status: Chronic Current Visit: No (13) Chronic hypoxemic respiratory failure Status: Chronic Comment: non-compliant with oxygen Current Visit: No (14) Hyperlipemia Status: Chronic Current Visit: No (15) Type 2 diabetes mellitus Status: Chronic Comment: uncontrolled Current Visit: No (16) GERD (gastroesophageal reflux disease) Status: Chronic Current Visit: No (17) Anxiety Status: Chronic Current Visit: No (18) Insomnia Status: Chronic Current Visit: No (19) Acute encephalopathy Status: Acute Current Visit: Yes (20) Acute kidney injury Status: Acute Current Visit: Yes (21) HCAP (healthcare-associated pneumonia) Status: Acute Current Visit: Yes - Allergies/Procedures Done in Hospital Allergies/Adverse Reactions: Allergies venom-honey bee [bee venom (honey bee)] Allergy (Verified 12/25/17 13:04) Swelling levofloxacin [From Levaquin] Adverse Reaction (Verified 12/25/17 13:04) Nausea oxycodone HCl [From Percocet] Adverse Reaction (Verified 12/25/17 13:04) Nausea Penicillins Adverse Reaction (Verified 12/25/17 13:04) Nausea/Vom/Diarrhea Procedures: None - Type of Care/Length of Stay Estimated LOS: More Than 30 Days Type of Care Needed: Skilled Rehab Potential: Fair Prognosis: Fair - Additional Orders/Day of Discharge H AND P will serve as current which was dated: 12/25/17 Day of Discharge: 12/28/17 - Dietary and Speech Recommendations Dietitian Recommendations/Changes: Rec diet change to CHO controlled. Will provide Glucerna w/ meals for additional calories/protein if consumed. - Follow Up Care Primary Care Physician: Camden Burger [Primary Care Provider] - Please follow up with your Primary Care Physician in: 1 Week Please Follow Up With: Matthias Chong MD When: As scheduled Please Follow Up With: Camden Mccormick MD When: 1 Week 12/28/17 1201 <Electronically signed by Marie FOFAANC> Date Marie FOFANAC 12/28/17 1204<Electronically signed by Jessica Fabian MD> Cosigner Signature: Date Jessica Fabian MD CC: Camden Burger; Camden Burger MD BEDSIDE GLUCOSE Collected: 12/28/2017 Status: F Source: [place] 11:36 AM [facility] REPOSITORY TYPE CODE TESTS RESULT OUT OF REFERENCE UNITS RANGE LAB L501.080 70-110 mg/dL High BEDSIDE GLU 236 Result Comment: Dr Orders Followed Insulin Given MANAGEMENT OF PATIENT CARE PER NURSING PROTOCOL Performed By: #### L501.080 #### [place] [facility] Laboratory Point of Care [address] [place], [place] [id number] BEDSIDE GLUCOSE Collected: 12/28/2017 Status: F Source: [place] 7:00 AM [facility] REPOSITORY TYPE CODE TESTS RESULT OUT OF REFERENCE UNITS RANGE LAB L501.080 70-110 mg/dL High BEDSIDE GLU 215 Result Comment: MANAGEMENT OF PATIENT CARE PER NURSING PROTOCOL Performed By: #### L501.080 #### [facility] Point of Care [address] [place], [place] [address] CBC-COMPLETE BLOOD CNT Collected: 12/28/2017 Status: F Source: [place] NO DIFF 6:10 AM [facility] REPOSITORY TYPE CODE TESTS RESULT OUT OF RANGE REFERENCE UNITS LAB L100.1000 4.4-11.0 K/mm3 Normal WBC 9.8 LAB L100.1200 4.2-5.4 M/mm3 Low RBC 3.85 LAB L100.1300 12.0-15.0 g/dl Low HGB 10.5 LAB L100.1400 37-47 % Low HCT 32.7 LAB L100.1500 81-99 fL Normal MCV 84.9 LAB L100.1600 27.0-32.0 pg Normal MCH 27.3 LAB L100.1700 32-36 g/gl Normal MCHC 32.1 LAB L100.1810 11.6-14.6 % High RDW CV 18.0 LAB L100.1820 35.1-43.9 fl High RDW SD 54.9 LAB L100.1900 150-450 K/mm3 Normal PLT 227 LAB L100.2000 6.2-12.0 fl Normal MPV 10.9 Performed By: #### L100.0500 #### [facility] [address] [place], [place], [address] BASIC METABOLIC Collected: 12/28/2017 Status: F Source: [place] PROFILE (BMP) 6:10 AM [facility] REPOSITORY TYPE CODE TESTS RESULT OUT OF RANGE REFERENCE UNITS LAB L501.0100 74-106 mg/dL High GLU 198 Result Comment: Fasting Glucose result greater than or equal to 126 mg/dL suggests DIABETES MELLITUS per A.D.A. criteria. Please note revised GLUCOSE reference range effective 2017. LAB L501.1000 7-18 mg/dL Normal BUN 17 LAB L501.1100 0.55-1.02 mg/dL Normal CREAT,SERUM 0.91 Result Comment: The validity of the calculated GFR AND GFRAA in patients over 70 years has not been determined. Clinical correlation is essential. LAB L501.1110 >60 mL/min Normal EST GFR 66 Result Comment: Non- GFR Calc LAB L501.1115 >60 mL/min Normal EST GFR - AA 80 Result Comment: GFR Calc LAB L501.1255 ml/min Normal Estimated CRCL 48.37 LAB L501.1300 10-20 RATIO Normal BUN/CRE 18.7 LAB L501.2200 8.5-10 mg/dL Low .1 CA 8.4 LAB L501.5300 136-14 mmol/L Normal 5 NA 139 LAB L501.5600 3.5-5. mmol/L Low 1 K 3.2 LAB L501.5900 98-107 mmol/L Normal CL 102 LAB L501.6100 21.0-3 mmol/L Normal 2.0 CO2 26.0 LAB L501.6200 5-15 Normal GAP 11 Performed By: #### L500.2500 #### [facility] [address] [facility] [place], [place], [id number] BEDSIDE GLUCOSE Collected: 12/27/2017 Status: F Source: [place] 10:46 PM [facility] REPOSITORY TYPE CODE TESTS RESULT OUT OF REFERENCE UNITS RANGE LAB L501.080 70-110 mg/dL High BEDSIDE GLU 370 Result Comment: MANAGEMENT OF PATIENT CARE PER NURSING PROTOCOL Performed By: #### L501.080 #### [facility] Point of Care [address] [place] [address] VANCOMYCIN, TROUGH Collected: 12/27/2017 Status: F Source: [place] LEVEL 5:33 PM [facility] REPOSITORY Order Comment: Comments: DRAW TROUGH 30 MIN PRIOR TO DOSE AT 18:00 Time Medication is to be Given? 1800 TYPE CODE TESTS RESULT OUT OF RANGE REFERENCE UNITS LAB L501.8820 5.0-15.0 ug/mL Normal VANCO, TROUGH 9.1 Result Comment: VANCOMYCIN STANDARED DRUG THERAPY TROUGH LEVEL: 5.0 - 15.0 mg/L VANCOMYCIN HIGH INTENSITY THERAPY TROUGH LEVEL: 15.0 - 20.0 mg/L High Intensity therapy recommended for serious life threatening infections include: - Meningitis -Endocarditis -Pneumonia (Ventilator/Healtcare Associated) -Sepsis PLEASE CONTACT PHARMACY SERVICES (#[id number]) FOR INTERPRETATION OF RESULTS. Performed By: #### L501.8820 #### [facility] [address] [place], [place], [id number] BEDSIDE GLUCOSE Collected: 12/27/2017 Status: F Source: [place] 4:26 PM [facility] REPOSITORY TYPE CODE TESTS RESULT OUT OF REFERENCE UNITS RANGE LAB L501.080 70-110 mg/dL High BEDSIDE GLU 412 Result Comment: MANAGEMENT OF PATIENT CARE PER NURSING PROTOCOL Performed By: #### L501.080 #### [facility] Point of Care [address] [place], [place] [address] BEDSIDE GLUCOSE Collected: 12/27/2017 Status: F Source: [place] 11:26 AM [facility] REPOSITORY TYPE CODE TESTS RESULT OUT OF REFERENCE UNITS RANGE LAB L501.080 70-110 mg/dL High BEDSIDE GLU 322 Result Comment: MANAGEMENT OF PATIENT CARE PER NURSING PROTOCOL Performed By: #### L501.080 #### [facility] Point of Care [address] [place], [place] [id number] BEDSIDE GLUCOSE Collected: 12/27/2017 Status: F Source: [place] 7:06 AM [facility] REPOSITORY TYPE CODE TESTS RESULT OUT OF REFERENCE UNITS RANGE LAB L501.080 70-110 mg/dL High BEDSIDE GLU 279 Result Comment: MANAGEMENT OF PATIENT CARE PER NURSING PROTOCOL Performed By: #### L501.080 #### [facility] Point of Care [address] [place], [place] [id number] Observed: 12/27/2017 Status: F Source: [place] CULTURE, URINE 5:50 AM [facility] REPOSITORY Has pt arrived? Y Urine Culture ORGANISM 1: Yeast [place] Count <1000 MIX CULTURE Mixed contaminants. Submit a new specimen if indicated. Performed By: #### M100.0650 #### [facility] [address] [place], [place], [id number] CBC-COMPLETE BLOOD CNT Collected: 12/27/2017 Status: F Source: [place] NO DIFF 5:25 AM [facility] REPOSITORY TYPE CODE TESTS RESULT OUT OF RANGE REFERENCE UNITS LAB L100.1000 4.4-11.0 K/mm3 Normal WBC 7.8 LAB L100.1200 4.2-5.4 M/mm3 Low RBC 3.68 LAB L100.1300 12.0-15.0 g/dl Low HGB 10.0 LAB L100.1400 37-47 % Low HCT 31.8 LAB L100.1500 81-99 fL Normal MCV 86.4 LAB L100.1600 27.0-32.0 pg Normal MCH 27.2 LAB L100.1700 32-36 g/gl Low MCHC 31.4 LAB L100.1810 11.6-14.6 % High RDW CV 18.3 LAB L100.1820 35.1-43.9 fl High RDW SD 56.9 LAB L100.1900 150-450 K/mm3 Normal PLT 218 LAB L100.2000 6.2-12.0 fl Normal MPV 11.8 Performed By: #### L100.0500 #### [facility] [address] [place], [address] BASIC METABOLIC Collected: 12/27/2017 Status: F Source: [place] PROFILE (BMP) 5:25 AM [facility] REPOSITORY TYPE CODE TESTS RESULT OUT OF RANGE REFERENCE UNITS LAB L501.0100 74-106 mg/dL High GLU 265 Result Comment: Glucose result greater than or equal to 200 mg/dL suggests DIABETES MELLITUS per A.D.A. criteria. Please note revised GLUCOSE reference range effective 2017. LAB L501.1000 7-18 mg/dL High BUN 23 LAB L501.1100 0.55-1.02 mg/dL Normal CREAT,SERUM 0.87 Result Comment: The validity of the calculated GFR AND GFRAA in patients over 70 years has not been determined. Clinical correlation is essential. LAB L501.1110 >60 mL/min Normal EST GFR 70 Result Comment: Non- GFR Calc LAB L501.1115 >60 mL/min Normal EST GFR - AA 85 Result Comment: GFR Calc LAB L501.1255 ml/min Normal Estimated CRCL 50.59 LAB L501.1300 10-20 RATIO High BUN/CRE 26.4 LAB L501.2200 8.5-10 mg/dL Low .1 CA 8.3 LAB L501.5300 136-14 mmol/L Normal 5 NA 141 LAB L501.5600 3.5-5. mmol/L Normal 1 K 3.7 LAB L501.5900 98-107 mmol/L Normal CL 107 LAB L501.6100 21.0-3 mmol/L Normal 2.0 CO2 23.0 LAB L501.6200 5-15 Normal GAP 11 Performed By: #### L500.2500 #### [facility] [address] [place], [place], [id number] BEDSIDE GLUCOSE Collected: 12/26/2017 Status: F Source: [place] 9:18 PM [facility] REPOSITORY TYPE CODE TESTS RESULT OUT OF REFERENCE UNITS RANGE LAB L501.080 70-110 mg/dL High BEDSIDE GLU 308 Result Comment: MANAGEMENT OF PATIENT CARE PER NURSING PROTOCOL Performed By: #### L501.080 #### [facility] Point of Care [address] [place] [address] BEDSIDE GLUCOSE Collected: 12/26/2017 Status: F Source: [place] 4:45 PM [facility] REPOSITORY TYPE CODE TESTS RESULT OUT OF REFERENCE UNITS RANGE LAB L501.080 70-110 mg/dL High BEDSIDE GLU 308 Result Comment: MANAGEMENT OF PATIENT CARE PER NURSING PROTOCOL Performed By: #### L501.080 #### [facility] Point of Care [address] [place] [address] BEDSIDE GLUCOSE Collected: 12/26/2017 Status: F Source: [place] 12:20 PM [facility] REPOSITORY TYPE CODE TESTS RESULT OUT OF REFERENCE UNITS RANGE LAB L501.080 70-110 mg/dL High BEDSIDE GLU 315 Result Comment: MANAGEMENT OF PATIENT CARE PER NURSING PROTOCOL Performed By: #### L501.080 #### [facility] Point of Care [address] [place] [address] CBC-COMPLETE BLOOD CNT Collected: 12/26/2017 Status: F Source: [place] NO DIFF 6:04 AM [facility] REPOSITORY TYPE CODE TESTS RESULT OUT OF RANGE REFERENCE UNITS LAB L100.1000 4.4-11.0 K/mm3 Normal WBC 5.3 LAB L100.1200 4.2-5.4 M/mm3 Low RBC 3.85 LAB L100.1300 12.0-15.0 g/dl Low HGB 10.5 LAB L100.1400 37-47 % Low HCT 33.6 LAB L100.1500 81-99 fL Normal MCV 87.3 LAB L100.1600 27.0-32.0 pg Normal MCH 27.3 LAB L100.1700 32-36 g/gl Low MCHC 31.3 LAB L100.1810 11.6-14.6 % High RDW CV 18.1 LAB L100.1820 35.1-43.9 fl High RDW SD 56.7 LAB L100.1900 150-450 K/mm3 Normal PLT 226 LAB L100.2000 6.2-12.0 fl Normal MPV 11.6 Performed By: #### L100.0500 #### [facility] [address] [place], [address] BASIC METABOLIC Collected: 12/26/2017 Status: F Source: [place] PROFILE (BMP) 6:04 AM [facility] REPOSITORY TYPE CODE TESTS RESULT OUT OF RANGE REFERENCE UNITS LAB L501.0100 74-106 mg/dL High GLU 261 Result Comment: Glucose result greater than or equal to 200 mg/dL suggests DIABETES MELLITUS per A.D.A. criteria. Please note revised GLUCOSE reference range effective 2017. LAB L501.1000 7-18 mg/dL High BUN 29 LAB L501.1100 0.55-1.02 mg/dL High CREAT,SERUM 1.04 Result Comment: The validity of the calculated GFR AND GFRAA in patients over 70 years has not been determined. Clinical correlation is essential. LAB L501.1110 >60 mL/min Low EST GFR 57 Result Comment: Non- GFR Calc LAB L501.1115 >60 mL/min Normal EST GFR - AA 69 Result Comment: GFR Calc LAB L501.1255 ml/min Normal Estimated CRCL 42.32 LAB L501.1300 10-20 RATIO High BUN/CRE 27.9 LAB L501.2200 8.5-10 mg/dL Low .1 CA 7.9 LAB L501.5300 136-14 mmol/L Normal 5 NA 141 LAB L501.5600 3.5-5. mmol/L Normal 1 K 4.1 LAB L501.5900 98-107 mmol/L Normal CL 107 LAB L501.6100 21.0-3 mmol/L Normal 2.0 CO2 24.0 LAB L501.6200 5-15 Normal GAP 10 Performed By: #### L500.2500 #### [facility] [address] [place] [id number] BEDSIDE GLUCOSE Collected: 12/26/2017 Status: F Source: [place] 5:45 AM [facility] REPOSITORY TYPE CODE TESTS RESULT OUT OF REFERENCE UNITS RANGE LAB L501.080 70-110 mg/dL High BEDSIDE GLU 277 Result Comment: MANAGEMENT OF PATIENT CARE PER NURSING PROTOCOL Performed By: #### L501.080 #### [facility] Point of Care [address] [place] [address]. [place] [address] BEDSIDE GLUCOSE Collected: 12/25/2017 Status: F Source: [place] 10:59 PM [facility] REPOSITORY TYPE CODE TESTS RESULT OUT OF REFERENCE UNITS RANGE LAB L501.080 70-110 mg/dL High BEDSIDE GLU 316 Result Comment: MANAGEMENT OF PATIENT CARE PER NURSING PROTOCOL Performed By: #### L501.080 #### [facility] Point of Care [address] [place] [address] Observed: 12/25/2017 Status: F Source: [place] RESPIRATORY PANEL 7:25 PM [facility] MOLECULAR REPOSITORY RP PANEL ADENOVIRUS Not Detected HUMAN METAPHNEUMO Not Detected INFLUENZA A Not Detected INFLUENZA A (SUBTYPE H1) Not Detected INFLUENZA A (SUBTYPE H3) Not Detected INFLUENZA B Not Detected PARAINFLUENZA 1 Not Detected PARAINFLUENZA 2 Not Detected PARAINFLUENZA 3 Not Detected PARAINFLUENZA 4 Not Detected RHINOVIRUS Not Detected RSV A Not Detected RSV B Not Detected NAAT METHOD Testing was performed using nucleic acid amplification Performed By: #### M100.638 #### [facility] [address] [place] [address] EMERGENCY DEPARTMENT Observed: 12/25/2017 Status: F Source: [place] SUMMARY 6:33 PM [facility] REPOSITORY [facility] Medical Records Department [address] [place] [address] Emergency Department Summary 12/25/17 1735 MR#: [id number] Acct: [id number] Name: DARYA LARKIN Rep #: [id number] : 1955 62 From: Cameron Bradford MD PCP: Camden Burger Status: ADM IN - ER Visit Summary Date of Service: 12/25/17 Chief Complaint: Shortness of breath History of Present Illness: The patient is a [address] Camden Rolon. Patient is lethargic and a poor informant. She does arouse to voice. She reports only shortness of breath and dysuria. She denies any fever or chills. No sore throat or cough. No chest pain, abdominal pain, nausea, vomiting, or diarrhea. She denies any rash or headache. She does report that she has generalized weakness. Physical Examination: Vitals: 96.7, 101/51, 50, 16, 97% on 3 L nasal cannula. General: Well-nourished and well-developed. Head: Normocephalic atraumatic. Neck: Supple, no lymphadenopathy. No JVD. Nontender. Cardiovascular: Irregular bradycardic rhythm. No murmurs. Respiratory: No respiratory distress. Mild wheezing bilaterally with good air movement. Abdominal: Soft, mild suprapubic tenderness to palpation, nondistended, normal bowel sounds. No guarding, rebound, or peritoneal signs. Back: Nontender. Extremities: Nontender, no edema. Skin: Normal color, no rash. Neurologic: Lethargic, but arouses to voice. Answers questions appropriately. Cranial nerves II through XII are intact. Normal strength and sensation. Psych: Normal affect. Test Results: EKG is A. fib at [address] depression. The only change since December 23 is her rate. CBC is remarkable for a hemoglobin of 11.5. Chem-7 is more for calcium of 8.1, glucose 114, BUN 34, creatinine 2.07. Of note her creatinine is range between 0.59-1.21 in 2018. LFTs marked for an albumin 2.9. Lipase is normal. INR is 2.0. PTT is 34.7. UA is negative. Troponin is negative. TSH is 1.41. Lactic acid is 0.8. Chest x-ray is rotated, but shows no acute disease. CT brain shows no acute disease on my read. ABG shows a pH of 7.45 with a bicarb of 27.3 and a CO2 of 39.7. Digoxin level is pending. CT abdomen 2 days ago showed a right lower lobe focal infiltrate. Emergency Department Course and Treatment: Patient was treated albuterol Atrovent aerosols. She was given Solu-Medrol IV, Zosyn and vancomycin IV. She was given a liter of normal saline. Treatment Plan: Patient was discussed with Dr. Esposito. She will be admitted to the hospital for further evaluation and treatment. Disposition: Admitted in serious condition. Impression: 1. Atrial fibrillation with slow ventricular response, on digoxin/Cardizem/propranolol. 2. Hypertension. 3. Coagulopathy on Xarelto. 4. Acute renal insufficiency. 5. Dehydration. 6. Pneumonia, healthcare acquired. This note was generated with XTWIPation software. It may contain incorrect words, spelling, and punctuation that were not noted in review of the chart prior to signing ED Disposition - Plan for ED Patient: Chief Complaint: Hypotension Referrals: Camden Burger [Primary Care Provider] - What to do if you have Problems For any increased pain, shortness of breath, bleeding, nausea or vomiting, chest pain, or any unexpected problems, contact your Primary Care Provider. Call [employer] [facility] ([phone]) or report to the closest Emergency Room. Call 911 if necessary. 12/25/17 1833 <Electronically signed by Cameron Bradford MD> Date Cameron Bradford MD Cosigner Signature (If Indicated): Date CC: Camden Burger; Camden Burger MD HISTORY AND PHYSICAL Observed: 12/25/2017 Status: F Source: [place] EXAM 6:08 PM [facility] REPOSITORY [facility] Medical Records Department [address] [place] [address] History and Physical 12/25/17 1650 MR#: [id number] Acct: [id number] Name: DARYA LARKIN Judi Rep #: [id number] : 1955 62 From: Marie Hoover [employer] PCP: Camden Burger Status: REG ER Y Location: ED ADDENDUM by Jo Brad Esposito on 12/25/17 at 1808 Code Visit ATTENDING PHYSICIAN NOTE: I have seen and examined the patient independently and agree with the assessment, plan, history per Marie Hoover as noted. Chief Complaint: Lethargic, Poor Intake, R sided abdominal pain, Hypotensive, Bradycardic The patient is a 62 y/o F w/ PMHx: Obesity, History of Tobacco use prior, Anxiety and Depression, Chronic Hypoxic Respiratory Failure (2-3L NC baseline) w/ Chronic COPD, HTN, HLD, Diabetes mellitus type II, History of SVT, Permanent atrial fibrillation, CAD, Cardiomyopathy Unclear Type who presents to the [facility] on 12/25[facility]17 with increased lethargy at the SNF, poor intake, noted PCP office evaluation w/ bradycardia in addition to low blood pressure prompting referral to the ED. Patient per SNF had CT A/P obtained 12/23/17 with noted focal infiltrate in the posterior medial segment of the right lower lobe in addition to sludge or small gallstones seen within the gallbladder lumen otherwise not market appearing. In the ED workup included T 96.7, heart rate 44, BP 101/51, respiratory rate 16, 97% on 3 L nasal cannula, CBC with W BC 8.8, hemoglobin 11.5, platelet 286 without shift, coags with INR 2, ABG with no marked severe findings despite lethargic presentation, blood culture x2 and urine culture pending per ED with unremarkable UA aside from 3+ bacteria specific gravity 1.020, Chest x-ray with no acute cardiopulmonary disease or interval change but as noted recent CT abdomen and pelvis with focal infiltrate in the posterior medial segment of the right lower lobe not on prior CT imaging upon comparison. CT head pending per ED given lethargy and unclear fall history on anticoagulation. In the ED patient administered normal saline, Zosyn, DuoNeb, vancomycin, Solu-Medrol. Labs, Allergies, Home medications, Social Hx, PSurgHx, Family Hx per note below. Admission Review of Systems: CONSTITUTIONAL: No weight loss, fever, chills, + weakness or fatigue. HEENT: Eyes: No visual loss, blurred vision, double vision or yellow sclerae. Ears, Nose, Throat: No hearing loss, sneezing, congestion, runny nose or sore throat. SKIN: No rash or itching, lesions, wounds. CARDIOVASCULAR: No chest pain, chest pressure or chest discomfort, palpitations, edema, orthopnea, syncopal events. RESPIRATORY: + shortness of breath, cough or sputum, wheezing, No hemoptysis. GASTROINTESTINAL: + anorexia, abdominal pain, Not clear if also associated nausea, vomiting, No melena, BRBPR. GENITOURINARY: No dysuria, frequency, urgency or retention. NEUROLOGICAL: No headache, dizziness, syncope, paralysis, ataxia, numbness or tingling in the extremities, focal weakness, change in bowel or bladder control, seizure. MUSCULOSKELETAL: + muscle, back pain, joint pain and stiffness. HEMATOLOGIC: + anemia, bleeding or bruising. LYMPHATICS: No enlarged nodes. No history of splenectomy. PSYCHIATRIC: + history of depression or anxiety. ENDOCRINOLOGIC: No reports of sweating, cold or heat intolerance. No polyuria or polydipsia. ALLERGIES: + history of asthma, hives, eczema or rhinitis. Admission VS: As noted below. Physical Examination: General: awakens to stimuli, not alert, lethargic, not oriented, cooperative, seated upright in the ED bed in no apparent distress but ill appearing. Skin: normal color, turgor, no icterus, cyanosis except occasional extremity ecchymoses, very staged. HEENT: AT/NC, EOMI, PERRLA, dry MM, no carotid bruits or JVD noted however difficult to assess secondary to thickened neck. Lungs: Diminished breath sounds bilateral bases, right greater than left, diffuse expiratory wheezing, poor effort. Heart: Regular, bradycardic; no gallop, rub audible. Abdomen: soft, morbidly obese, notable right upper quadrant tenderness to palpation with rebound, ND, normal BS, difficult to assess HSM secondary to habitus and right upper quadrant pain. Extremities: no cyanosis, clubbing, or edema. Neurological: awakens to stimuli, not alert, lethargic, not oriented, cooperative, seated upright in the ED bed in no apparent distress but ill appearing; cognitive function not baseline intact; pupils equally reactive to light and accomodation; cranial nerves II-XII grossly normal, moving all 4 extremities but strength severely globally decreased. Psychiatric: affect appears flat, lethargic, no acute evidence of depressive or anxiety feelings. Assessment and Plan: The patient is a 62 y/o F w/ PMHx: Obesity, History of Tobacco use prior, Anxiety and Depression, Chronic Hypoxic Respiratory Failure (2-3L NC baseline) w/ Chronic COPD, HTN, HLD, Diabetes mellitus type II, History of SVT, Permanent atrial fibrillation, CAD, Cardiomyopathy Unclear Type who presents to the [facility] on 12/25/17 with increased lethargy at the SNF, poor intake, noted PCP office evaluation w/ bradycardia in addition to low blood pressure prompting referral to the ED. Patient per SNF had CT A/P obtained 12/23/17 with noted focal infiltrate in the posterior medial segment of the right lower lobe in addition to sludge or small gallstones seen within the gallbladder lumen otherwise not market appearing. (1) Acute Encephalopathy, Infectious and Metabolic, secondary to Acute HCAP w/ Acute on Chronic COPD Exacerbation w/ Chronic Hypoxic Respiratory Failure: Will admit to PCU given concurrent #3 findings, maintain on oxygen with wean as tolerated to home oxygen supplementation, continue ATC duonebs, PRN albuterol, maintained on IV Zosyn and Vancomycin w/ pending MRSA swab w/ de-escalation if negative, HOB, IS parameters w/ pending sputum cultures, respiratory viral panel and urine antigens. Bld cx x 2 obtained in the ED. Aspiration precautions, while lethargic maintain NPO status. PT, OT, CM for discharge planning. CT Head pending as noted upon decision for admission, if no evidence acute findings will proceed with admission. (2) Acute kidney injury: Secondary to acute presentation with infection, poor oral intake with dehydration. Admission BUN/Cr 34/2.07, prior baseline creatinine noted to be 0/8-1.0. Will continue to hydrate, hold nephrotoxic medications and repeat chemistry in AM. If no improvement would plan FeNa assessment. (3) Permanent atrial fibrillation w/ Bradycardia: Notably bradycardia 30-40, will hold cardizem, propranolol and digoxin, pending digoxin level upon admission, repeat EKG in AM, maintain on telemetry, will need to add regimen back with alterations pending further assessments. Continue home xarelto regimen if CT head unremarkable. (4) RUE Pain w/ Cholelithiasis: Noted recent CT A/P with cholelithiasis, notable RUQ pain with palpation, may be primarily referred pain w/ her infiltrates; however, to be cautious will obtain RUQ US for better modality and request Surgery evaluation. IVFs, NPO status currently as noted, IV PPI. Additional Co-morbidities: (5) Diabetes mellitus type II, Uncontrolled w/ History of Severe Hyperglycemia secondary to Steroid Usage: Last HgBA1c 9.4%, adjustments made prior, will continue home insulin with accu checks w/ ISS q 6 hours until oral intake resumption with improved status. (6) Recurrent Syncopal Events: Several admissions for syncopal events, 07/11/17 ECHO w/ hyperdynamic LV systolic function, EF 75%, mildly enlarged LA, mild to moderate mitral annular calcification, trivial MVI, trivial TBI, mild AVS, small pericardial effusion, no evidence of cardiac tamponade. Stress testing 05/13/17 with normal pharmacological myocardial perfusion stress testing. (7) Cardiomyopathy Unclear Type: Prior ECHO w/ EF 45-50%, recent 07/11/17 ECHO w/ hyperdynamic LV systolic function, EF 75%, mildly enlarged LA, mild to moderate mitral annular calcification, trivial MVI, trivial TBI, mild AVS, small pericardial effusion, no evidence of cardiac tamponade. Stress testing 05/13/17 with normal pharmacological myocardial perfusion stress testing. (8) CAD: Will continue home regimen asa, statin, BB. Stress testing 05/13/17 with normal pharmacological myocardial perfusion stress testing. (9) Hypertension: PRN hydralazine, holding regimen given concurrent bradycardia and JAMIE as noted. (10) Hyperlipidemia: Continue home statin regimen. (11) Anxiety and Depression: Continue home regimen buspar, wellbutrin. (12) History of Tobacco Abuse: Encouraged continued cessation. (13) Morbid Obesity: Weight loss and lifestyle changes encouraged, nutrition consulted. (14) ABDULLAHI: BIPAP q HS if will tolerate, has been non-compliant. (15) DVT prophylaxis: SCDs, xarelto. (16) Code Status: Full Code. Inpatient E AND M: 06676 Init Hosp L3 12/25/17 1808 <Electronically signed by Jo Esposito > Date Jo Esposito cc: COACH WIRER-C Marie Hoover; Camden Burger; Jo Esposito; Camden Burger MD * Signed Problem List (1) Abdominal pain Status: Acute (2) ABDULLAHI (obstructive sleep apnea) Status: Chronic (3) Tobacco dependence due to cigarettes Status: Chronic (4) Non-compliance Status: Chronic (5) Syncope Status: Resolved Qualifiers: (6) Hypersomnia Status: Chronic (7) Anemia Status: Chronic Comment: Normocytic (8) HTN (hypertension) Status: Chronic Qualifiers: (9) Morbid obesity with BMI of 40.0-44.9, adult Status: Chronic (10) COPD (chronic obstructive pulmonary disease) Status: Chronic Qualifiers: (11) Chronic pain Status: Chronic Qualifiers: (12) Chronic atrial fibrillation Status: Chronic (13) Chronic hypoxemic respiratory failure Status: Chronic Comment: non-compliant with oxygen (14) Hyperlipemia Status: Chronic Qualifiers: (15) Type 2 diabetes mellitus Status: Chronic Qualifiers: Comment: uncontrolled (16) GERD (gastroesophageal reflux disease) Status: Chronic Qualifiers: (17) Anxiety Status: Chronic (18) Insomnia Status: Chronic Qualifiers: History of Present Illness Date of Admission: 12/25/17 Chief Complaint: Abdominal pain, poor appetite. The patient is a 62 year old F who presents emergency room due to abdominal pain, poor appetite. Patient is fairly drowsy during assessment, closing eyes periodically during conversation. Speech muffled. She states she has only been able to drink juice. She denies emesis, denies diarrhea. Complains of generalized weakness. Denies urinary symptoms. Denies syncope, presyncope. Patient's primary care physician ordered CT of abdomen and pelvis due to lower abdominal pain which was completed 12/23/2017 and showed focal infiltrate in the posterior medial segment of the right lower lobe. Sludge or small gallstones seen in the gallbladder. Patient was seen by PCP 2 days ago for lower abdominal pain, lethargy and confusion. She has a past medical history of COPD, chronic atrial fibrillation, hypertension, type 2 diabetes mellitus, hyperlipidemia, GERD, anxiety, chronic hypoxic respiratory failure, obesity, ABDULLAHI. Past Medical History Past Medical History (Chronic Problems): Chronic Problems (Last Reviewed 12/14/17 @ 13:10 by Marylu Howell NP-C) ABDULLAHI (obstructive sleep apnea) (Chronic) Tobacco dependence due to cigarettes (Chronic) Non-compliance (Chronic) Hypersomnia (Chronic) Anemia (Chronic) Normocytic HTN (hypertension) (Chronic) Morbid obesity with BMI of 40.0-44.9, adult (Chronic) COPD (chronic obstructive pulmonary disease) (Chronic) Chronic pain (Chronic) Chronic atrial fibrillation (Chronic) Chronic hypoxemic respiratory failure (Chronic) non-compliant with oxygen Hyperlipemia (Chronic) Type 2 diabetes mellitus (Chronic) uncontrolled GERD (gastroesophageal reflux disease) (Chronic) Anxiety (Chronic) Insomnia (Chronic) Medical History: Medical History (Last Reviewed 12/14/17 @ 13:10 by FRANKLIN Philippe) Hypersomnia (Chronic) G47.10 Anemia (Chronic) D64.9 Hypomagnesemia (Chronic) E83.42 HTN (hypertension) (Chronic) I10 Morbid obesity with BMI of 40.0-44.9, adult (Chronic) E66.01, Z68.41 COPD (chronic obstructive pulmonary disease) (Chronic) J44.9 Chronic pain (Chronic) G89.29 Chronic atrial fibrillation (Chronic) I48.2 Chronic hypoxemic respiratory failure (Chronic) J96.11 non-compliant with oxygen Hyperlipemia (Chronic) E78.5 Type 2 diabetes mellitus (Chronic) E11.9 uncontrolled GERD (gastroesophageal reflux disease) (Chronic) K21.9 Anxiety (Chronic) F41.9 Insomnia (Chronic) G47.00 Osteoporosis M81.0 Chest pain (Resolved) R07.9 Cardiomyopathy (Ruled-out) I42.9 EF in Oct 2015 45-50 Left ankle pain (Inactive) M25.572 Non-compliance (Inactive) Z91.19 withn follow up with pulmonary Allergies venom-honey bee [bee venom (honey bee)] Allergy (Verified 12/25/17 13:04) Swelling levofloxacin [From Levaquin] Adverse Reaction (Verified 12/25/17 13:04) Nausea oxycodone HCl [From Percocet] Adverse Reaction (Verified 12/25/17 13:04) Nausea Penicillins Adverse Reaction (Verified 12/25/17 13:04) Nausea/Vom/Diarrhea Home Medications: Ambulatory Orders Medication Instructions Recorded Albuterol Aerosols [Ventolin 2.5 mg INHALATION Q2H PRN PRN 05/12/17 Aerosols] Atorvastatin Calcium [Lipitor] 40 mg PO QHS 05/12/17 Surgical History: Surgical History (Last Reviewed 12/14/17 @ 13:10 by FRANKLIN Philippe) Cataract extraction status Z98.49 History of lumbar surgery Z98.890 History of tonsillectomy and adenoidectomy Z98.890 History of total hysterectomy Z90.710 Surgical History: hysterectomy, tonsillectomy, - - Lumbar surgery. Psychiatric History: Anxiety, Depression COURTROOM REPORTER History: No pertinent COURTROOM REPORTER history Lives: [facility] Smoking Status: Current some day smoker Tobacco Use: Cigarettes Alcohol: None Drugs: None - *Family History Maternal Family History: Family History (Last Reviewed 12/25/17 @ 16:55 by FRANKLIN Cardenas) Sister Arthritis Diabetes Father Cancer Aunt Diabetes History Items: - - She reports that she is unaware of what her mother's health history was like Paternal Family History: Family History (Last Reviewed 12/25/17 @ 16:55 by FRANKLIN Cardenas) Sister Arthritis Diabetes Father Cancer Aunt Diabetes History Items: Cancer, - - father with throat cancer. Sibling Family History: Family History (Last Reviewed 12/25/17 @ 16:55 by FRANKLIN Cardenas) Sister Arthritis Diabetes Father Cancer Aunt Diabetes History Items: Asthma, COPD, Hypertension Review of Systems Constitutional: Reports: Malaise, Weakness. Denies: Chills, Fever HEENT: Denies: Head Aches, Sinus Congestion, Sinus Drainage Cardiovascular: Denies: Chest Pain, Light Headedness, Palpitations, Syncope Respiratory: Reports: Cough, Shortness of breath upon exertion, Wheezing Gastrointestinal: Reports: Abdominal Pain, Nausea. Denies: Diarrhea, Hematochezia, Melena, Vomiting Genitourinary: Reports: Incontinence. Denies: Dysuria, Hematuria, Urgency Musculoskeletal: Denies: Joint Pain, Joint Tenderness Skin: Denies: Rash, Wounds Neurological: Denies: Numbness, Tingling, Focal weakness Psychiatric: Reports: Anxiety, Depression Hematologic/ Lymphatic: Denies: Easy Bruising, Easy Bleeding VTE Information - Inpt Only VTE Present on Admission: No VTE Mechan Device Prophylaxis: None VTE Pharm Prophylaxis ordered?: Yes - Physical Exam General: Lethargic - Ill appearance HEENT: Atraumatic, PERRLA, EOMI, Normocephalic Oral: Dry Mucosa Neck: Supple, No JVD, Negative Carotid Bruits Lungs: Diminished, Wheezes Cardiovascular: Bradycardic, - - Atrial fibrillation Abdomen: Bowel Sounds Present, Soft, Non-Distended, Obese, Tender - RUQ Extremities: No clubbing, No cyanosis, No edema, Capillary Refill Less than 3 Seconds Skin: No rashes, No breakdown Musculoskeletal: No Tenderness to Palpation of Joints or Extremities Neurological: Cranial nerves II-XII grossly intact, Neuro grossly intact Psych/Mental Status: Normal Affect Vital Signs Temp Pulse Resp BP Pulse Ox 96.7 F L 46 L 16 101/51 L 97 12/25/17 15:48 12/25/17 16:02 12/25/17 16:02 12/25/17 15:42 12/25/17 16:02 Oxygen Flow Rate (L/min) 3 Oxygen Delivery Method Nasal Cannula Weight: 230 lb Body Mass Index (BMI) 43.4 Finger Stick Blood Glucose 364 Laboratory Tests Past 24 Hrs WBC RBC Hgb Hct MCV Assessment/Plan All Active Problems (Last Reviewed 12/14/17 @ 13:10 by Marylu Howell, COACH WIRER-C) Abdominal pain (Acute) Acute and chronic respiratory failure with hypoxia (Resolved) Acute bronchitis due to human metapneumovirus (Resolved) Atrial fibrillation with RVR (Resolved) COPD with acute exacerbation (Resolved) Gram-negative pneumonia (Resolved) Syncope (Resolved) Cardiomyopathy (Ruled-out) Patient is a 61-year-old female admitted 07/10/2017 due to syncope. She has a past medical history of COPD, chronic atrial fibrillation, hypertension, type 2 diabetes mellitus, hyperlipidemia, GERD, anxiety, chronic hypoxic respiratory failure, obesity, ABDULLAHI. 1. Acute healthcare acquired pneumonia-CT of abdomen 12/23/2017 showed right lower lobe infiltrate infiltrate. Blood cultures drawn in ER, pending. Urine for strep and Legionella. Sputum culture. Albuterol and DuoNeb aerosols. IV Zosyn and IV vancomycin. 2. Acute kidney injury-suspect secondary to dehydration. IV fluids. Trend BMP. 3. Acute infectious and metabolic encephalopathy-Obtain brain CT. Secondary to #1/#2. UA negative. 4. Abdominal pain-CT of abdomen and pelvis obtained as outpatient 12/23/2017 which showed sludge or small gallstones in the gallbladder. Patient with right upper quadrant tenderness. Obtain right upper quadrant ultrasound. If abnormal, consider surgery consult. 5. Bradycardia-suspect secondary to medication regimen including digoxin, Cardizem, propanolol regimen. Hold rate control regimen. Monitor telemetry. Digoxin level pending. 6. Chronic hypoxic respiratory failure due to chronic severe COPD-continue supplement oxygen to maintain O2 at or above 90%. Albuterol and DuoNeb aerosols. 7. Chronic atrial fibrillation-continue Xarelto. Hold Cardizem, propanolol, digoxin given bradycardia. 8. Type 2 diabetes mellitus-continue home insulin regimen. Accu-Cheks before meals at bedtime. 9. Hypertension-stable, home BP regimen on hold due to bradycardia/JAMIE. 10. Hyperlipidemia-continue statin. 11. History of mild cardiomyopathy- echo 07/11/17 with EF 75%. 12. GERD-continue home famotidine regimen. 13. Anxiety-continue home buspirone, bupropion regimen. 14. Obesity-encouraged diet and lifestyle modifications. 15. Tobacco dependence-encourage smoking cessation. 60. Obstructive sleep apnea-unclear if patient wears CPAP/BiPAP. Follows with pulmonary medicine. DVT prophylaxis-Xarelto Discharge planning: Return to SNF at discharge. This patient was seen by FRANKLIN Cardenas under the supervision of Dr. Esposito. 12/25/171741 <Electronically signed by Marie REID> Date Marie REID 12/25/171745<Electronically signed by Jo Esposito > Cosigner Signature: Date (if applicable) Jo Esposito CC: FRANKLIN Hoover; Camden Burger; Jo Esposito; Camden Burger MD Signed ABDOMEN LIMITED Observed: 12/25/2017 Status: F Source: [place] 5:43 PM [facility] [place] REPOSITORY [facility] [address] [place] [address] Abdomen Limited MR#: [id number] Acct: [id number] Name: DARYA LARKIN Rep #: [id number] : 1955 F 62 From: Lazaro Freeman DO PCP: Camden Burger Status: ADM IN Study: Abdomen Limited Date of Exam: 12/25/17 Exam# [id number] Ordering Dr: Marie Hoover STUDY: ABDOMINAL ULTRASOUND - RIGHT UPPER QUADRANT REASON FOR VISIT: Female, 62 years old. Right upper quadrant pain. TECHNIQUE: Ultrasound evaluation of the right upper quadrant was performed with real-time and static veliz-scale imaging. TECHNICAL QUALITY: Examination limited due to the patient?s condition. COMPARISON: CT of the abdomen and pelvis, December 23, 2017. FINDINGS: Liver: The liver measures 16.8 cm. There is minimal increased echogenicity consistent with mild fatty infiltration. The bile ducts are within normal limits. There is hepatic color flow. The direction of portal flow is hepatopetal. There is no demonstrated mass lesion. Gallbladder: Normal distended gallbladder. The gallbladder wall measures 2.7 mm. There is a negative sonographic Pacheco's sign. There is no pericholecystic fluid. There are no gallstones. Common Bile Duct (C.B.D.): The common bile duct measures 3.6 mm. Pancreas: Normal size of the head, body and tail of the pancreas. There is normal echogenicity of the pancreas. There is no demonstrated pancreatic mass or cyst. Right Kidney: Normal size of the right kidney. The right kidney measures 11.4 cm. Normal renal cortex. The right cortex measures 1.1 cm. There is no demonstrated renal mass or cyst. There is no right hydronephrosis. US/Abdomen Limited IMPRESSION: Question mild fatty infiltration of the liver without mass. No other sonographic evidence of right upper quadrant abnormality. Electronically Signed: Lazaro Freeman DO at 19:15 EST Tel [phone], Service support , CC: FRANKLIN Hoover; Camden Burger Eyeglass Inspector: Signed BRAIN/HEAD WITHOUT Observed: 12/25/2017 Status: F Source: [place] CONTRAST 5:08 PM [facility] REPOSITORY [facility] [address] [place] [address] Brain/Head without Contrast MR#: [id number] Acct: [id number] Name: DARYA LARKIN Rep #: [id number] : 1955 F 62 From: Musa Patel MD PCP: Camden Burger Status: REG ER Study: Brain/Head without Contrast Date of Exam: 12/25/17 Exam# [id number] Ordering Dr: Cameron Bradford MD STUDY: CT BRAIN WITHOUT CONTRAST REASON FOR EXAM: Female, 62 years old. Decreased level of consciousness RADIATION DOSAGE (If Supplied By Facility): CTDIvol = ( 60.81 ) mGy, DLP = ( 998.67 ) mGycm TECHNIQUE: Transaxial CT imaging of the brain was performed without administration of intravenous contrast material. Individualized dose optimization techniques were used for this CT. COMPARISON: December 23, 2017 FINDINGS: Normal soft tissue structures. Normal calvarium. There is mild cerebral atrophy with widening of the extra- axial spaces and ventricular dilatation. There are areas of decreased attenuation within the white matter tracts of the supratentorial brain, consistent with microvascular disease changes. Normal basal ganglia and thalami. Normal brainstem. Normal cerebellum. There is no intracranial hemorrhage. There are no findings of an acute ischemic infarction. Normal visualized paranasal sinuses. CT/Brain/Head without Contrast IMPRESSION: Chronic involutional changes of the brain. Electronically Signed: Musa Patel MD at 17:54 EST , Service support , CC: Camden Burger; Cameron Bradford MD Eyeglass Inspector: Signed DIGOXIN LEVEL Collected: 12/25/2017 Status: F Source: [place] 4:56 PM [facility] REPOSITORY TYPE CODE TESTS RESULT OUT OF RANGE REFERENCE UNITS LAB L501.7510 0.80-2.00 ng/mL High alert DIG 3.54 Result Comment: Critical Result(s) Called at: 18:21:51 12/25/2017 by: DESI SUAZO TO BRITT GORDON IN ED Digoxin concentrations greater than 2.00 ng/mL are potentially toxic. Performed By: #### L501.7510 #### [facility] [address] [place], [place], [address] URINALYSIS, COMPLETE Collected: 12/25/2017 Status: F Source: [place] 4:23 PM [facility] REPOSITORY Order Comment: Has pt arrived? Y How was Urine Obtained? COKE WHEELER TO SPECIFY TYPE CODE TESTS RESULT OUT OF RANGE REFERENCE UNITS LAB L400.3000 Yellow COLOR Normal Yellow LAB L400.3050 Clear Normal CLARITY Clear LAB L400.3200 Normal mg/dl Normal GLUCOSE, UR Normal LAB L400.3300 Negative mg/dL Normal BILIRUBIN URINE Negative LAB L400.3400 Negative mg/dl Normal KETONE UR Negative LAB L400.3465 1.002-1.030 Normal SP.GR. DIPSTX 1.020 LAB L400.3550 5.0 - 8.0 pH UR Normal 5.0 LAB L400.3600 Negative mg/dl PROT Normal DIPSTX Negative LAB L400.3700 Normal mg/dl Normal UROBILI Normal LAB L400.3750 Negative Normal NITRITE UR Negative LAB L400.3780 Negative /ul Normal OCCULT BLOOD-UR Negative LAB L400.3800 Negative /ul High LEUK 25 ESTERASE LAB L400.4050 0-5 /hpf WBC 0 Normal SEEN LAB L400.4100 0-5 /hpf 0 Normal RBC-UA SEEN LAB L400.4150 5-10 /hpf SQUAM Normal EPI 0-5 SEEN LAB L400.4300 None Seen /hpf 3+ Normal BACTERIA LAB L400.4350 <or=2+ /hpf 0 Normal MUCUS, URINE SEEN Performed By: #### L400.0001 #### [facility] [address] [place], [address] URINE DRUG SCREEN Collected: 12/25/2017 Status: F Source: [place] (VISTA) 4:23 PM [facility] REPOSITORY TYPE CODE TESTS RESULT OUT OF RANGE REFERENCE UNITS LAB L505.0075 TO BE Normal CONFIRMED Result Comment: CONFIRMATORY TESTING FOR ALL POSITIVE URINE DRUG SCREEN RESULTS WILL ONLY BE SENT OUT UPON PHYSICIAN ORDER. VISTA Urine Drug Screen methods provide only preliminary analytical test results. A more specific alternate chemical method must be used in order to obtain a confirmed analytical result. Gas chromatography/mass spectrometery (GC/MS) is the preferred confirmatory method. Clinical consideration and professional judgement should be applied to any drug of abuse test result, particularly when preliminary positive results are used. URINE TCA TESTING MUST BE ORDERED SEPARATELY. USE TEST MNEMONIC: [facility] LAB L505.5005 VISTA UDS PH 7 Normal LAB L505.5015 <1000 ng/mL AMPHETAMINES Normal NEGATIVE LAB L505.5025 < 200 ng/mL BARBITIURATES Normal NEGATIVE LAB L505.5035 < 200 ng/mL BENZODIAZIPINE Normal NEGATIVE LAB L505.5045 < 300 ng/mL COCAINE Normal NEGATIVE LAB L505.5055 < 500 High ng/mL ECSTACY POSITIVE LAB L505.5065 < 300 ng/mL METHADONE Normal NEGATIVE LAB L505.5075 < 300 High ng/mL OPIATES POSITIVE LAB L505.5085 < 25 ng/mL PCP Normal NEGATIVE LAB L505.5095 < 50 ng/mL THC Normal NEGATIVE Performed By: #### L505.5000 #### [facility] [id number] Observed: 12/25/2017 Status: F Source: [place] CULTURE, URINE 4:23 PM [facility] REPOSITORY Has pt arrived? Y Urine Culture There are no CLSI standards for interpretation of this Drug/Organism combination. ORGANISM 1: Lactobacillus species [place] Count >100,000 Performed By: #### M100.0650 #### [facility]. [facility] [id number] Observed: 12/25/2017 Status: F Source: [place] CULTURE, BLOOD (WB) 3:15 PM [facility] REPOSITORY BC No growth in 5 days. Performed By: #### M200.1000 #### [facility] [id number] CBC W/DIFF, AUTOMATED Collected: 12/25/2017 Status: F Source: [place] 3:05 PM [facility] REPOSITORY TYPE CODE TESTS RESULT OUT OF RANGE REFERENCE UNITS LAB L100.1000 4.4-11.0 K/mm3 Normal WBC 8.8 LAB L100.1200 4.2-5.4 M/mm3 Normal RBC 4.20 LAB L100.1300 12.0-15.0 g/dl Low HGB 11.5 LAB L100.1400 37-47 % Normal HCT 37.2 LAB L100.1500 81-99 fL Normal MCV 88.6 LAB L100.1600 27.0-32.0 pg Normal MCH 27.4 LAB L100.1700 32-36 g/gl Low MCHC 30.9 LAB L100.1810 11.6-14.6 % High RDW CV 18.7 LAB L100.1820 35.1-43.9 fl High RDW SD 59.8 LAB L100.1900 150-450 K/mm3 Normal PLT 286 LAB L100.2000 6.2-12.0 fl Normal MPV 11.2 LAB L100.2100 47-70 % Normal NEUT% 62.8 LAB L100.2200 19-41 % Normal LY% 26.9 LAB L100.2300 0-10 % Normal MONO% 8.0 LAB L100.2400 0-5 % Normal EO% 1.8 LAB L100.2500 0-1 % Normal BASO% 0.2 LAB L100.2550 0.0-0.9 % Normal IM GRAN % 0.300 Result Comment: IG% - Immature Granulocytes (promyelocytes, myelocytes and metamyelocytes) > 1% indicates that a LEFT SHIFT is Present. LAB L100.2620 2.0-7.7 X10 3/uL Normal Absolute Neut 5.5 LAB L100.2720 0.83-4.51 X10 3/ul Normal Absolute Lymph 2.35 Performed By: #### L100.0100 #### [facility] [address] [place], [place], [address] LACTIC ACID Collected: 12/25/2017 Status: F Source: [place] 3:05 PM [facility] REPOSITORY Order Comment: Yes/No query for Sepsis Lactate Rule Y TYPE CODE TESTS RESULT OUT OF RANGE REFERENCE UNITS LAB L503.6005 0.4-2.0 mmol/L Normal LACTIC ACID 0.8 Performed By: #### L503.6005 #### [facility] [address] [place], [address] PROTHROMBIN TIME W/INR Collected: 12/25/2017 Status: F Source: [place] 3:05 PM [facility] REPOSITORY TYPE CODE TESTS RESULT OUT OF RANGE REFERENCE UNITS LAB L300.4150 11.7-14.9 SECONDS High PROTIME 22.9 LAB L300.4200 Normal INR 2.0 Performed By: #### L300.3900, L300.4310 #### [facility] [address] [place], [place], [address] PARTIAL THROMBOPLAST Collected: 12/25/2017 Status: F Source: [place] TIME 3:05 PM [facility] REPOSITORY TYPE CODE TESTS RESULT OUT OF RANGE REFERENCE UNITS LAB L300.4310 24.1-36.2 Seconds Normal PTT 34.7 Performed By: #### L300.3900, L300.4310 #### [facility] [address] [place], [place], [id number] COMPREHENSIVE METABOLIC Collected: 12/25/2017 Status: F Source: [place] PROFIL 3:05 PM [facility] REPOSITORY TYPE CODE TESTS RESULT OUT OF RANGE REFERENCE UNITS LAB L501.0100 74-106 mg/dL High GLU 114 Result Comment: Fasting Glucose result from 100 to 125 mg/dL suggests IMPAIRED HOMEOSTASIS per A.D.A. criteria. Please note revised GLUCOSE reference range effective 2017. LAB L501.1000 7-18 mg/dL High BUN 34 LAB L501.1100 0.55-1.02 mg/dL High CREAT,SERUM 2.07 Result Comment: The validity of the calculated GFR AND GFRAA in patients over 70 years has not been determined. Clinical correlation is essential. LAB L501.1110 >60 mL/min Low EST GFR 26 Result Comment: Non- GFR Calc LAB L501.1115 >60 mL/min Low EST GFR - AA 31 Result Comment: GFR Calc LAB L501.1255 ml/min Normal Estimated CRCL 21.26 LAB L501.1300 10-20 RATIO Normal BUN/CRE 16.4 LAB L501.1500 6.4-8. g/dL Normal 2 T PROT 6.5 LAB L501.1800 3.2-5. g/dL Low 0 ALB 2.9 LAB L501.1950 2.2-4. g/dL Normal 2 GLOB 3.6 LAB L501.2000 0.9-2. RATIO Low 4 A/G 0.8 LAB L501.2200 8.5-10 mg/dL Low .1 CA 8.1 LAB L501.4100 15-37 U/L Normal AST 24 Result Comment: Moderate Hemolysis, Result may be falsely increased. LAB L501.4305 45-117 U/L Normal ALK P 94 LAB L501.4405 13-56 U/L Normal ALT 21 LAB L501.4600 0.20-1.00 mg/dL Normal T BILI 0.60 LAB L501.5300 136-145 mmol/L Normal NA 136 LAB L501.5600 3.5-5.1 mmol/L Normal K 4.2 Result Comment: Moderate Hemolysis, Result may be falsely increased. LAB L501.5900 98-107 mmol/L Normal CL 102 LAB L501.6100 21.0-32.0 mmol/L Normal CO2 28.0 LAB L501.6200 5-15 Normal 6 GAP Performed By: #### L500.4050, L501.2450, L501.4010, L501.9520 #### [facility] [address] [place], [address] LIPASE Collected: 12/25/2017 Status: F Source: [place] 3:05 PM [facility] REPOSITORY TYPE CODE TESTS RESULT OUT OF REFERENCE UNITS RANGE LAB L501.2450 73-393 U/L Low LIPASE 45 Performed By: #### L500.4050, L501.2450, L501.4010, L501.9520 #### [facility] [address] [place], [address] TROPONIN-I Collected: 12/25/2017 Status: F Source: [place] 3:05 PM [facility] REPOSITORY TYPE CODE TESTS RESULT OUT OF RANGE REFERENCE UNITS LAB L501.4010 <0.045 ng/mL Normal < 0.015 TROPONIN-I Result Comment: TROPONIN-I EXPECTED VALUES <0.045 Negative 0.045 - 0.590 Consistent with Cardiac Damage > OR = 0.600 Critical Value Not every elevated troponin is indicative of KS. These values should be used with clinical judgement in examining the patient's clinical picture for diagnosis. To establish a diagnosis of KS versus myocardial injury, there must be a demonstrated rise and/or fall in the troponin values, in addition to ischemic symptoms, EKG changes, new regional wall motion abnormality, and/or angiographical evidence. PLEASE NOTE: REFERENCE RANGES EDITED 17 Performed By: #### L500.4050, L501.2450, L501.4010, L501.9520 #### [facility] [address] [place], [address] THYROID STIM HORMONE Collected: 12/25/2017 Status: F Source: [place] (TSH) 3:05 PM [facility] REPOSITORY TYPE CODE TESTS RESULT OUT OF RANGE REFERENCE UNITS LAB L501.9520 0.358-3.74 uIU/mL Normal TSH 1.41 Performed By: #### L500.4050, L501.2450, L501.4010, L501.9520 #### [facility] [address] [place], [address] Observed: 12/25/2017 Status: F Source: [place] CULTURE, BLOOD (WB) 3:05 PM [facility] REPOSITORY BC No growth in 5 days. Performed By: #### M200.1000 #### [facility] [address] [facility] [place], [place], [address] BLOOD GASES BY [facility] Collected: 12/25/2017 Status: F Source: [place] 2:10 PM [facility] REPOSITORY TYPE CODE TESTS RESULT OUT OF RANGE REFERENCE UNITS LAB L9000.9990 Normal BLD GAS TYPE ART LAB L9001.1000 R Normal SITE Brachial LAB L9001.1010 NA Normal VELMA TEST LAB L9001.1050 O2 Normal Delivery Dev Nasal Can LAB L9001.1055 /min Normal LPM 2.0 LAB L9001.1104 ED Normal Results To MD LAB L9001.1105 Normal Time Given 1450 LAB L9001.1110 7.35-7.45 pH Normal - I-STAT 7.45 LAB L9001.1210 35-45 mmHg Normal pCO2 - ISTAT 39.7 LAB L9001.1310 75-100 mmHG 82 Normal PO2 I-STAT LAB L9001.2300 22-26 mmol/L High HCO3 ISTAT 27.3 LAB L9001.2400 -2 to +2 mmol/L High BE 3 ISTAT LAB L9001.2415 mmol/L 28 Normal TOTAL CO2 ISTAT LAB L9001.2425 95-99 % 96 Normal SO2 ISTAT Performed By: #### L9000.0800 #### [facility] Point of Care [address] [place] [address] CHEST PA AND LATERAL Observed: 12/25/2017 Status: F Source: [place] 1:14 PM [facility] REPOSITORY [facility] Imaging Services [address] [place] [address] Chest PA and Lateral MR#: [id number] Acct: [id number] Name: DARYA LARKIN Rep #: [id number] : 1955 F 62 From: Lazaro Freeman DO PCP: Camden Burger Status: REG ER Study: Chest PA and Lateral Date of Exam: 12/25/17 Exam# [id number] Ordering Dr: Cameron Bradford MD STUDY: X-RAY CHEST REASON FOR EXAM: Female, 62 years old. Hypotension. TECHNIQUE: PA and lateral views of the chest. COMPARISON: December 23, 2017 and November 20, 2017. FINDINGS: Telemetry wires overlie the chest. The lungs are well-expanded. There is no acute infiltrate or mass There is no demonstrated pleural abnormality. Normal size heart. Normal mediastinum and sangeeta. Normal visualized pulmonary arteries. Normal visualized aortic arch and descending thoracic aorta. There are diffuse degenerative changes of the visualized thoracic spine. Normal visualized ribs, clavicles, and shoulders. There is no demonstrated abnormality of the visualized soft tissue structures of the upper abdomen. RAD/Chest PA and Lateral IMPRESSION: No acute cardiopulmonary disease or interval change. Electronically Signed: Lazaro Freeman DO at 16:24 EST Tel [phone], Service support , CC: Camden Burger; Cameron Bradford MD Eyeglass Inspector: Signed Observed: 12/25/2017 Status: F Source: [place] LEGIONELLA ANTIGEN 9:46 AM [facility] URINE REPOSITORY Order Date: 12/25/17 Comments: Collected in ED Specimen Source: URINE, CLEAN CATCH Legionella, UR Legionella Antigen result interpretation: Negative Presumptive negative for Legionella pneumophila serogroup 1 antigen in urine, suggesting no recent or current infection. Legionella Ag, Urine Negative (See interpretation below) Performed By: #### M300.4500 #### [facility] [place], [address] STREP Observed: 12/25/2017 Status: F Source: [place] PNEUMONIAE ANTIG(UR,CSF) 9:46 AM [facility] REPOSITORY Order Date: 12/25/17 Comments: Collected in ED S pneumo Ag [] Negative Urine Presumptive negative for pneumococcal pneumonia, suggesting no current or recent pneumococcal infection. Infection due to S pneumoniae cannot be ruled out since the antigen present in the sample may be below the detection limit of the test. Strep pneumo Test Negative URINE (See interpretation below) Performed By: #### M300.4600 #### [facility] [address] [place], [address] MAGNESIUM Collected: 12/25/2017 Status: F Source: [place] 12:00 AM [facility] REPOSITORY TYPE CODE TESTS RESULT OUT OF RANGE REFERENCE UNITS LAB L501.5200 1.6-2.6 mg/dL Normal MG 2.4 Result Comment: Moderate Hemolysis, Result may be falsely increased. Performed By: #### L501.5200 #### [facility] [address] [place], [address] 12 LEAD ELECTROCARDIOGRAM Observed: 12/24/2017 Status: F Source: [place] 3:45 PM [facility]PITAL REPOSITORY [facility] Cardiovascular Services [address] [place] [address] 12 Lead EKG 12/23/17 1143 MR#: [id number] Acct: [id number] Name: DARYA LARKIN Rep #: [id number] : 1955 62 From: Lan Lilly MD Attending Dr: Status: DEP ER Ordering Dr: Ross Bailey DO Date: 12/23/17 Location: ED Sex: F C Admitted: Test Reason : CONFUSION Blood Pressure : / mmHG Vent. Rate : 068 BPM Atrial Rate : 267 BPM P-R Int : 000 ms QRS Dur : 084 ms QT Int : 350 ms P-R-T Axes : 000 065 -59 degrees QTc Int : [address] AND T wave abnormality, consider inferior ischemia ST AND T wave abnormality, consider anterolateral ischemia Abnormal ECG Confirmed by LAN LILLY MD ([id number]), photography editor DIANA GALVEZ ([id number]) on 12/24/2017 3:45:15 PM Referred By: TERRANCE Confirmed By:LAN LILLY MD 12/24/17 1545 Date Lan Lilly MD CC: Camden Burger; Ross Bailey DO; Camden Burger MD Signed CHEST 1 VIEW Observed: 12/23/2017 Status: F Source: [place] (PORTABLE) 1:14 PM [facility] HOSPITAL REPOSITORY [facility] Imaging Services [address] [place] [address] Chest 1 View (Portable) MR#: [id number] Acct: [id number] Name: DARYA LARKIN Rep #: [id number] : 1955 F 62 From: Jose Lemos MD PCP: Camden Burger Status: REG ER Study: Chest 1 View (Portable) Date of Exam: 12/23/17 Exam# [id number] Ordering Dr: Ross Bailey DO STUDY: X-RAY CHEST REASON FOR EXAM: Female, 62 years old. Altered level of consciousness. TECHNIQUE: Single AP portable view of the chest. COMPARISON: Comparison is made with prior study dated November 20, 2017. FINDINGS: EKG electrodes are seen. The lungs are clear and expanded. There is no demonstrated pleural abnormality. Normal size heart. Normal mediastinum and sangeeta. Normal visualized pulmonary arteries. Normal visualized aortic arch and descending thoracic aorta. Normal visualized thoracic spine. Normal visualized ribs, clavicles, and shoulders. There is no demonstrated abnormality of the visualized soft tissue structures of the upper abdomen. RAD/Chest 1 View (Portable) IMPRESSION: Normal x-ray examination of the chest. Electronically Signed: Jose Lemos MD at 13:38 EST Tel [phone], Service support , CC: Camden Burger; Ross Bailey DO Eyeglass Inspector: Signed BRAIN/HEAD WITHOUT Observed: 12/23/2017 Status: F Source: [place] CONTRAST 12:39 PM [facility] REPOSITORY [facility] Imaging Services [address] [place] [address] Brain/Head without Contrast MR#: [id number] Acct: [id number] Name: DARYA LARKIN Rep #: [id number] : 1955 F 62 From: Jose Lemos MD PCP: Camden Burger Status: REG ER Study: Brain/Head without Contrast Date of Exam: 12/23/17 Exam# [id number] Ordering Dr: Ross Bailey DO STUDY: CT BRAIN WITHOUT CONTRAST REASON FOR EXAM: Female, 62 years old. Lethargy. Increased confusion. Hypotension. RADIATION DOSAGE (If Supplied By Facility): CTDIvol = ( 44.99 ) mGy, DLP = ( 779.24 ) mGycm TECHNIQUE: Transaxial CT imaging of the brain was performed without administration of intravenous contrast material. Individualized dose optimization techniques were used for this CT. COMPARISON: Comparison is made with prior study dated May 19, 2009. FINDINGS: Normal soft tissue structures. Normal calvarium. There is mild cerebral atrophy with widening of the extra- axial spaces and ventricular dilatation. Normal white matter tracts of the cerebral hemispheres. Normal basal ganglia and thalami. Normal brainstem. Normal cerebellum. There is no intracranial hemorrhage. There are no findings of an acute ischemic infarction. Normal visualized paranasal sinuses. CT/Brain/Head without Contrast IMPRESSION: Chronic involutional changes of the brain. Electronically Signed: Jose Lemos MD at 13:25 EST Tel [phone], Service support , CC: Camden Burger; Ross Bailey DO Eyeglass Inspector: Signed ABDOMEN/PELVIS W IV CONT Observed: 12/23/2017 Status: F Source: [facility] 12:39 PM [facility] REPOSITORY [facility] Imaging Services [address] [place] [address] Abdomen/Pelvis W IV Cont ONLY MR#: [id number] Acct: [id number] Name: DARYA LARKIN Rep #: [id number] : 1955 F 62 From: Jose Lemos MD PCP: Camden Burger Status: REG ER Study: Abdomen/Pelvis W IV Cont ONLY Date of Exam: 12/23/17 Exam# [id number] Ordering Dr: Ross Bailey DO STUDY: CT ABDOMEN AND PELVIS WITH CONTRAST REASON FOR EXAM: Female, 62 years old. Lower abdominal pain. Lethargy. Increased confusion. RADIATION DOSAGE (If Supplied By Facility): CTDIvol = ( 16.65 ) mGy, DLP = ( 1139.28 ) mGycm TECHNIQUE: Transaxial images were obtained from the dome of the diaphragm to the symphysis pubis without oral contrast. 75mL ml of Isovue 300 contrast was administered. Sagittal and coronal images were reconstructed. Individualized dose optimization techniques were used for this CT. COMPARISON: Comparison is made with prior examination dated November 01, 2017. FINDINGS: Focal infiltrate in the posterior medial segment of the right lower lobe. Coronary artery calcification. Normal liver. Sludge or small gallstones seen in the gallbladder lumen. Normal spleen. Normal pancreas. Normal bilateral adrenal glands. Normal right kidney. Normal left kidney. Normal visualized stomach. Normal small intestine. Normal colon. There is non-visualization of the appendix. There is diffuse atherosclerotic calcification of the abdominal aorta, without a demonstrated aneurysm. Normal inferior vena cava. Normal retroperitoneum. Normal urinary bladder. There is absence of the uterus consistent with a prior hysterectomy. Normal abdominal wall. Small bilateral benign-appearing inguinal lymph nodes. Disc space narrowing and disc degeneration at the L4-L5 level. CT/Abdomen/Pelvis W IV Cont ONLY IMPRESSION: Focal infiltrate in the posterior medial segment of the right lower lobe. Electronically Signed: Jose Lemos MD at 13:31 EST Tel [phone], Service support , CC: Camden Burger; Ross Bailey DO Eyeglass Inspector: Signed URINALYSIS, COMPLETE Collected: 12/23/2017 Status: F Source: [place] 12:35 PM [facility] REPOSITORY Order Comment: Order Date: 12/23/17 How was Urine Obtained? CATHETER SPECIMEN TYPE CODE TESTS RESULT OUT OF RANGE REFERENCE UNITS LAB L400.3000 Yellow COLOR Normal Yellow LAB L400.3050 Clear Sl Normal CLARITY Cloudy LAB L400.3200 Normal mg/dl Normal GLUCOSE, UR NEGATIVE LAB L400.3300 Negative mg/dL High 3 BILIRUBIN URINE Result Comment: COLOR OF URINE MAY AFFECT DIPSTICK RESULTS. LAB L400.3400 Negative mg/dl Normal KETONE UR 50 LAB L400.3465 1.002-1.030 Normal SP.GR. DIPSTX 1.030 LAB L400.3550 5.0 - 8.0 pH Normal UR 5.0 LAB L400.3600 Negative mg/dl High PROT DIPSTX 30 LAB L400.3700 Normal mg/dl Normal UROBILI Normal LAB L400.3750 Negative Normal NITRITE UR Negative LAB L400.3780 Negative /ul Normal OCCULT Negative BLOOD-UR LAB L400.3800 Negative /ul Normal LEUK ESTERASE Negative LAB L400.4050 0-5 /hpf Normal WBC 0 SEEN LAB L400.4100 0-5 /hpf Normal RBC-UA 0 SEEN LAB L400.4150 5-10 /hpf Normal SQUAM EPI 0-5 SEEN LAB L400.4300 None Seen /hpf Normal BACTERIA 1+ LAB L400.4350 <or=2+ /hpf Normal MUCUS, URINE 0 SEEN LAB L400.4400 0-5 /lpf Normal HYALINE CAST 0-5 SEEN Performed By: #### L400.0001 #### [facility] [address] [facility] [address] [place], [place], [address] PROTHROMBIN TIME W/INR Collected: 12/23/2017 Status: F Source: [place] 12:14 PM [facility] REPOSITORY Order Comment: REDRAW. PREVIOUS SPECIMEN REJECTED DUE TO BEING HEMOLYZED. SPOKE TO JEANIE IN ER. 12/23/17 1208 [place] [address] TYPE CODE TESTS RESULT OUT OF RANGE REFERENCE UNITS LAB L300.4150 11.7-14.9 SECONDS High PROTIME 22.0 LAB L300.4200 Normal INR 1.9 Performed By: #### L300.3900, L300.4310 #### [facility] [address] [place], [place], [address] PARTIAL THROMBOPLAST Collected: 12/23/2017 Status: F Source: [place] TIME 12:14 PM [facility] REPOSITORY Order Comment: REDRAW. PREVIOUS SPECIMEN REJECTED DUE TO BEING HEMOLYZED. SPOKE TO JEANIE IN ER. 12/23/17 1208 [place] TYPE CODE TESTS RESULT OUT OF RANGE REFERENCE UNITS LAB L300.4310 24.1-36.2 Seconds Normal PTT 32.6 Performed By: #### L300.3900, L300.4310 #### [facility] [address] [place], [address] CBC-COMPLETE BLOOD CNT Collected: 12/23/2017 Status: F Source: [place] NO DIFF 11:42 AM [facility] REPOSITORY TYPE CODE TESTS RESULT OUT OF RANGE REFERENCE UNITS LAB L100.1000 4.4-11.0 K/mm3 Normal WBC 9.5 LAB L100.1200 4.2-5.4 M/mm3 Normal RBC 4.39 LAB L100.1300 12.0-15.0 g/dl Low HGB 11.8 LAB L100.1400 37-47 % Normal HCT 38.9 LAB L100.1500 81-99 fL Normal MCV 88.6 LAB L100.1600 27.0-32.0 pg Low MCH 26.9 LAB L100.1700 32-36 g/gl Low MCHC 30.3 LAB L100.1810 11.6-14.6 % High RDW CV 19.0 LAB L100.1820 35.1-43.9 fl High RDW SD 60.8 LAB L100.1900 150-450 K/mm3 Normal PLT 285 LAB L100.2000 6.2-12.0 fl Normal MPV 10.8 Performed By: #### L100.0500 #### [facility] [address] [place], [place], [address] COMPREHENSIVE METABOLIC Collected: 12/23/2017 Status: F Source: [place] PROFIL 11:42 AM [facility] REPOSITORY Order Comment: 'TROP' Serial specimen #1, #2, #3, or #4: 1 TYPE CODE TESTS RESULT OUT OF RANGE REFERENCE UNITS LAB L501.0100 74-106 mg/dL High GLU 181 Result Comment: Fasting Glucose result greater than or equal to 126 mg/dL suggests DIABETES MELLITUS per A.D.A. criteria. Please note revised GLUCOSE reference range effective 2017. LAB L501.1000 7-18 mg/dL High BUN 30 LAB L501.1100 0.55-1.02 mg/dL High CREAT,SERUM 1.69 Result Comment: The validity of the calculated GFR AND GFRAA in patients over 70 years has not been determined. Clinical correlation is essential. LAB L501.1110 >60 mL/min Low EST GFR 33 Result Comment: Non- GFR Calc LAB L501.1115 >60 mL/min Low EST GFR - AA 39 Result Comment: GFR Calc LAB L501.1255 ml/min Normal Estimated CRCL 26.04 LAB L501.1300 10-20 RATIO Normal BUN/CRE 17.8 LAB L501.1500 6.4-8. g/dL Normal 2 T PROT 6.4 LAB L501.1800 3.2-5. g/dL Low 0 ALB 2.8 LAB L501.1950 2.2-4. g/dL Normal 2 GLOB 3.6 LAB L501.2000 0.9-2. RATIO Low 4 A/G 0.8 LAB L501.2200 8.5-10 mg/dL Low .1 CA 8.4 LAB L501.4100 15-37 U/L Normal AST 28 Result Comment: Moderate Hemolysis, Result may be falsely increased. LAB L501.4305 45-117 U/L Normal ALK P 91 LAB L501.4405 13-56 U/L Normal ALT 26 LAB L501.4600 0.20-1.00 mg/dL Normal T BILI 0.50 LAB L501.5300 136-145 mmol/L Normal NA 142 LAB L501.5600 3.5-5.1 mmol/L Normal K 4.7 Result Comment: Moderate Hemolysis, Result may be falsely increased. LAB L501.5900 98-107 mmol/L Normal CL 102 LAB L501.6100 21.0-32.0 mmol/L Normal CO2 31.0 LAB L501.6200 5-15 Normal 9 GAP Performed By: #### L500.4050, L501.2450, L501.4010 #### [facility] [address] [place], [place], [address] LIPASE Collected: 12/23/2017 Status: F Source: [place] 11:42 AM [facility] REPOSITORY Order Comment: 'TROP' Serial specimen #1, #2, #3, or #4: 1 TYPE CODE TESTS RESULT OUT OF REFERENCE UNITS RANGE LAB L501.2450 73-393 U/L Low LIPASE 44 Performed By: #### L500.4050, L501.2450, L501.4010 #### [facility] [address] [place], [address] TROPONIN-I Collected: 12/23/2017 Status: F Source: [place] 11:42 AM [facility] REPOSITORY Order Comment: 'TROP' Serial specimen #1, #2, #3, or #4: 1 TYPE CODE TESTS RESULT OUT OF RANGE REFERENCE UNITS LAB L501.4010 <0.045 ng/mL Normal < 0.015 TROPONIN-I Result Comment: TROPONIN-I EXPECTED VALUES <0.045 Negative 0.045 - 0.590 Consistent with Cardiac Damage > OR = 0.600 Critical Value Not every elevated troponin is indicative of [place]. These values should be used with clinical judgement in examining the patient's clinical picture for diagnosis. To establish a diagnosis of [place] versus myocardial injury, there must be a demonstrated rise and/or fall in the troponin values, in addition to ischemic symptoms, EKG changes, new regional wall motion abnormality, and/or angiographical evidence. PLEASE NOTE: REFERENCE RANGES EDITED 17 Performed By: #### L500.4050, L501.2450, L501.4010 #### [facility] [address] [place], [address] LACTIC ACID Collected: 12/23/2017 Status: F Source: [place] 11:42 [facility] REPOSITORY Order Comment: Yes/No query for Sepsis Lactate Rule Y TYPE CODE TESTS RESULT OUT OF RANGE REFERENCE UNITS LAB L503.6005 0.4-2.0 mmol/L Normal LACTIC ACID 1.2 Performed By: #### L503.6005 #### [facility] [address] [place], [address] AMMONIA Collected: 12/23/2017 Status: F Source: [place] 11:42 AM [facility] REPOSITORY TYPE CODE TESTS RESULT OUT OF RANGE REFERENCE UNITS LAB L503.5510 11-32 umol/L Normal AMMONIA 12.0 Performed By: #### L503.5510 #### [facility] [address] [place], [address] PULMONARY VISIT REPORT Observed: 12/14/2017 Status: F Source: [place] 1:16 PM [facility] REPOSITORY [facility] [address] [place] [address] OFFICE VISIT Date of Service: 12/14/17 MR#: [id number] Acct: [id number] Name: DARYA LARKIN Rep #: [id number] : 1955 Provider: Marylu Howell Age/Sex: 62/F Location: [facility] Status: Signed Assessment AND Plan 1. Chronic respiratory failure with hypoxia J96.11 Plan The patient is using and benefiting from oxygen. Continue to utilize to maintain a saturation of 89-92%. Follow-up in 3 months. 2. Chronic obstructive pulmonary disease with acute exacerbation J44.1 Plan Does not appear to be an exacerbation of COPD today. No need for prednisone or antibiotic. Continue current maintenance medication. No additional testing at this time. Contact the office for any new or worsening symptoms. An acute visit and typically be arranged within 1-2 days. Follow-up in 3 months. 3. Morbid obesity with BMI of 40.0-44.9, adult E66.01; Z68.41 Plan Continue to encourage weight loss. 4. ABDULLAHI (obstructive sleep apnea) G47.33 Plan Deteriorated, patient noncompliant. Continues to refuse therapy. 5. Tobacco dependence due to cigarettes F17.210 Plan Deteriorated. Patient continues to smoke 2 cigarettes daily. Encourage smoking cessation. The patient is not interested in smoking cessation and remains in the pre-contemplative phase. Plan Detail Follow Up 3 Months ([facility]) [facility] Hospital FU: Chief Complaint: None [facility] Comments Details: This is a 62 year old F, currently under the care of Camden Burger, here to follow up after a recent hospitalization at [facility], from November 20 - November 27, 2017 for exacerbation of COPD and acute on chronic respiratory failure. The hospital stay was relatively uncomplicated. 8 pages of hospital documentation was reviewed, and found to be significant for chest x-ray completed on November 20 showing a normal x-ray examination of the chest. Upon discharge, the patient completed a 12 day course of prednisone. Today, she presents the office in a wheelchair, on room air. She has no complaints today, denies any shortness of breath at rest or during conversation but does report shortness of breath on exertion which is resolved with rest. She denies any cough, sputum production or hemoptysis. She denies any wheezing, chest tightness, chest pain or palpitations. She is using 2 L of nasal cannula oxygen with sleep. She continues to refuse Pap therapy. She continues to smoke 2 cigarettes daily. Intake Vital Signs12/14/17 Height 5 ft 1 in 12/14/17 Weight: 201 lb Intake Visit Reasons: Hospital FU Accompanied by: Family / Other Allergies venom-honey bee [bee venom (honey bee)] Allergy (Verified 12/14/17 11:37) Swelling levofloxacin [From Levaquin] Adverse Reaction (Verified 12/14/17 11:37) Nausea oxycodone HCl [From Percocet] Adverse Reaction (Verified 12/14/17 11:37) Nausea Penicillins Adverse Reaction (Verified 12/14/17 11:37) Nausea/Vom/Diarrhea Medications Albuterol Aerosols [Ventolin Aerosols] 2.5 mg INHALATION Q2H PRN PRN 05/12/17 [History Confirmed 12/14/17] Atorvastatin Calcium [Lipitor] 40 mg PO QHS 05/12/17 [History Confirmed 12/14/17] Budesonide/Formoterol 160/4.5 [Symbicort 160/4.5 Mcg Inhaler (SP)] 2 puff INHALATION BID 05/12/17 [History Confirmed 12/14/17] Bupropion HCl [Bupropion HCl Sr] 150 mg PO BID 05/12/17 [History Confirmed 12/14/17] Buspirone HCl 10 mg PO TID 05/12/17 [History Confirmed 12/14/17] Diltiazem [Cardizem] 120 mg PO BID 05/12/17 [History Confirmed 12/14/17] Famotidine [Pepcid] 20 mg PO BID 05/12/17 [History Confirmed 12/14/17] Glucagon,Human Recombinant [Glucagon Emergency Kit] 1 mg IM PRN PRN 05/12/17 [History Confirmed 12/14/17] Ipratropium/Albuterol Sulfate [Duoneb] 3 ml INHALATION Q4H.RT 05/12/17 [History Confirmed 12/14/17] Lisinopril [Prinivil] 5 mg PO DAILY 05/12/17 [History Confirmed 12/14/17] Propranolol HCl [Inderal (Beta Lou)] 10 mg PO BID 05/12/17 [History Confirmed 12/14/17] Sennosides/Docusate Sodium [Senna-Docusate Sodium Tablet] 2 tab PO DAILY PRN PRN 05/12/17 [History Confirmed 12/14/17] Mag Hydrox/Al Hydrox/Simeth [Mylanta II] 30 ml PO Q6H PRN PRN 08/11/17 [History Confirmed 12/14/17] docusate sodium 100 mg capsule 100 mg PO QHS 09/01/17 [History Confirmed 12/14/17] Benzonatate [Tessalon Perle] 100 mg PO TID PRN PRN 11/02/17 [History Confirmed 12/14/17] Rivaroxaban [Xarelto] 20 mg PO DAILY #0 11/03/17 [Rx Confirmed 12/14/17] Calcium Carbonate [Tums] 500 - 1,000 mg PO Q6H PRN PRN 11/20/17 [History Confirmed 12/14/17] acetaminophen 325 mg capsule 650 mg PO Q6H PRN cap 11/20/17 [History Confirmed 12/14/17] Acetaminophen [Tylenol Tablet] 650 mg PO Q6H PRN PRN tab 11/24/17 [Rx Confirmed 12/14/17] Insulin Lispro [Humalog KwikPen] See Protocol SUBCUT 4X/DAYCM insuln.pen 11/24/17 [Rx Confirmed 12/14/17] Insulin Glargine [Lantus SoloStar Pen] 10 units SUBCUT QHS pen 11/27/17 [Rx Confirmed 12/14/17] PFSH Medical History Hypersomnia (Chronic) Chest pain (Acute) Anemia (Chronic) Hypomagnesemia (Chronic) HTN (hypertension) (Chronic) Morbid obesity with BMI of 40.0-44.9, adult (Chronic) COPD (chronic obstructive pulmonary disease) (Chronic) Chronic pain (Chronic) Chronic atrial fibrillation (Chronic) Chronic hypoxemic respiratory failure (Chronic) Hyperlipemia (Chronic) Type 2 diabetes mellitus (Chronic) GERD (gastroesophageal reflux disease) (Chronic) Anxiety (Chronic) Insomnia (Chronic) Osteoporosis (Chronic) Cardiomyopathy (Ruled-out) Left ankle pain (Inactive) Non-compliance (Inactive) Surgical History Cataract extraction status (Resolved) History of lumbar surgery (Resolved) History of tonsillectomy and adenoidectomy (Resolved) History of total hysterectomy (Resolved) Family History Sister Arthritis Diabetes Father Cancer throat Aunt Diabetes Social History Smoking Status: Current every day smoker second hand exposure: Yes alcohol intake: never substance use type: does not use caffeine: Yes Type: coffee what type of physical activity do you participate in: none Review of Systems Const CONSTITUTIONAL: Negative anorexia, body ache, chills, daytime sleepiness, fever(s), night sweats, oral thrush, stops breathing during sleep, weight loss, sleeping in chair, fatigue, weight loss, weight gain, frequent colds, seasonal allergies, other, headache(s) or orthopnea EETM Ear Nose Throat Mouth: Negative hard of hearing, hearing normal, hoarseness, dry mouth in morning, change in vision, itchy eyes, eye pain, swallowing Difficulty, ear pain, nose bleed, headache(s), mouth pain, nasal congestion, nasal discharge, post nasal drip, sinus pain, sinus pressure, sore throat or other Cardio Cardiovascular: Negative chest pain, chest pain at rest, chest pain with activity, irregular heart rhythm, edema, shortness of breath when lying down, palpitations, murmur or other Resp Respiratory: Positive as per HPI and shortness of breath shortness of breath: Positive with activity; negative pain with cough, wheezing, chest congestion, cough, chest tightness, pain on inspiration, inhalers, increase use of rescue inhalers, snoring, apnea or other Gastro Gastrointestional: Negative bloody stools, change in appetite, difficulty swallowing, reflux, hematemesis, melena stool, loose stool, constipation or other Genitourinary: Negative blood in urine, nocturia, pain with urination or other Musc Musculoskeletal: Negative body pain, back pain, neck pain or other Skin/Breast Skin/Breast: Negative dry skin, itching, rash, unusual bruising, breast lump or other Neuro Neurological: Negative restless legs, confusion, weakness or other Psych Psychocological: Negative abnormal sleep pattern, anxiety, thoughts of hurting self/others, hopelessness or other Lymph Lymphatic: Negative easy bleeding, easy bruising, swollen lymph nodes or other Exam Const Constitutional: Positive conversant, cooperative, in no acute respiratory distress, healthy appearing, well developed, well nourished, poor hygiene, good hygiene, obese and appears older than stated age Head Head: Positive normocephalic and atraumatic; negative cyanosis of lips/distal nose Eyes Eye: Positive clear conjunctiva; negative nystagmus or scleral abnormality Ears Ear: Positive external ears normal; negative hard of hearing or hearing normal Nose Nose: Positive external nose normal and no nasal discharge; negative epistaxis Mouth Mouth: Positive oral mucosae normal, no lesions and crowded posterior oropharynx; negative post nasal drip, malodorous breath or oral thrush present Mallampati Score: III: Mallampati Score Neck Neck: Positive normal visual inspection, full ROM and trachea midline; negative lymphadenopathy, JVD or tender Chest Wall Chest: Positive normal inspection of the chest and symmetric chest movement; negative increased A/P diameter Resp lung sounds: Positive diminished, wheezes, wheeze present on forced exhalation, normal expiratory time and normal respiratory effort; negative rhonchi, rales or dullness to percussion Cardio Cardiac: Positive regular rate, regular rhythm, S1 normal and S2 normal; negative murmur GI GI: Positive normal to inspection and obese; negative distended Genitourinary: Positive deferred Musc Musculoskeletal: Positive ROM normal and in a wheelchair; negative kyphosis or scoliosis Skin Pulmonary Skin Exam: Positive intact; negative rash Pulses Pulse: Yes pulses normal x4 extremities Extremities Extremities: Yes edema Location: lower extremity location: Bilateral pitting +1, Yes capillary refill normal, No clubbing, No cyanosis Neuro Neurologic: Yes conversant, Yes no focal neuro deficits, Yes normal concentration, Yes understands questions, Yes cooperative, Yes normal cognition, Yes normal coordination Lymph Lymphatic: No lymphadenopathy, No tenderness, No cervical adenopathy Psych Appearance: Positive grossly normal, eye contact and well kempt Mental Status: Positive mental status grossly normal Mood: Positive congruent mood Affect: Positive normal affect Coding Level of Care Code Off vis,est,level 3 Diagnoses Chronic respiratory failure with hypoxia J96.11 Chronic obstructive pulmonary disease with acute exacerbation J44.1 COPD type: COPD with acute exacerbation Morbid obesity with BMI of 40.0-44.9, adult E66.01; Z68.41 ABDULLAHI (obstructive sleep apnea) G47.33 Tobacco dependence due to cigarettes F17.210 12/14/17 1316 <Electronically signed by Marylu REID> Date Marylu REID Cosigner Signature: Date (if applicable) CC: Camden Burger DISCHARGE SUMMARY Observed: 11/27/2017 Status: F Source: [place] 4:24 PM [facility] REPOSITORY [facility] Medical Records Department [address] [place] [id number] Discharge Summary 11/27/17 0942 MR#: [id number] Acct: [id number] Name: DARYA LARKIN Rep #: [id number] : 1955 62 From: Radha Hopson MD PCP: Camden Burger Status: DIS IN Y [id number] ADDENDUM by Radha Hopson MD on 11/27/17 at 1624 Code Visit Spo2 on admission was 88%, managed on 2-3 L oxygen as well as Bipap for severe ABDULLAHI also. 11/27/17 1624 <Electronically signed by Radha Hopson MD> Date Radha Hopson MD cc: Camden Burger; Radha Hopson MD; Camden Burger MD * Signed ADDENDUM by Radha Hopson MD on 11/27/17 at 1623 Code Visit Documentation clarification: Patient was reportedly on 2L of oxygen at home. Per pulmonology consult note on 11/23/17, patient was reportedly taking of oxygen by a physician. She was admitted with acute on chronic respiratory failure with acute COPD exacerbation. On the day of discharge, patient had improved back to room air. She would need to follow-up with pulmonology in the outpatient to determine the status of her lung function. 11/27/17 1623 <Electronically signed by Radha Hopson MD> Date Radha Hopson MD cc: Camden Burger; Radha Hopson MD; Camden Burger MD * Signed Discharge Date and Diagnosis Date of Admission: 11/20/17 Date of Discharge: 11/27/17 - Primary Discharge Diagnosis 1. Acute on chronic hypoxic respiratory failure secondary to acute COPD exacerbation, 2. Acute COPD exacerbation 3. Hypoglycemia - Secondary Discharge Diagnosis Chronic Problems (Last Reviewed 11/20/17 @ 15:04 by All Karimi DO) Morbid obesity with BMI of 50.0-59.9, adult (Chronic) ABDULLAHI (obstructive sleep apnea) (Chronic) Non-compliance (Chronic) Microcytic anemia (Chronic) Syncope (Chronic) Hypersomnia (Chronic) Anemia (Chronic) Hypomagnesemia (Chronic) HTN (hypertension) (Chronic) Morbid obesity with BMI of 40.0-44.9, adult (Chronic) COPD (chronic obstructive pulmonary disease) (Chronic) Chronic pain (Chronic) Chronic atrial fibrillation (Chronic) Chronic hypoxemic respiratory failure (Chronic) non-compliant with oxygen Hyperlipemia (Chronic) Type 2 diabetes mellitus (Chronic) uncontrolled GERD (gastroesophageal reflux disease) (Chronic) Anxiety (Chronic) Insomnia (Chronic) Hospital Course and Treatment Imaging Results: Clinical Impression(s) from Imaging Studies Chest X-Ray 11/20/17 12:10 IMPRESSION: Normal x-ray examination of the chest. Electronically Signed: Danny Hale MD at 13:08 EDT , Service support , None Operations: None Procedures: None Summary of Care Provided: The patient is a 62 year old F with past medical history of chronic hypoxic respiratory failure secondary to chronic COPD, on 2-3 L of oxygen at home, hypertension, hyperlipidemia, type II DM, anxiety/depression, morbid obesity admitted on 11/20/2017 with worsening shortness of breath as well as wheezing. Admitting chest x-ray was negative for any infiltrates. Respiratory panel was negative. Patient was managed on breathing treatments, IV Solu-Medrol, antibiotics. She continued to improve and was transitioned to prednisone taper. Patient had episodes of hyperglycemia initially with changes made to her insulin. She subsequently developed hypoglycemia. She was seen by PT and OT and skilled for discharged to [facility]. Changes were made to her insulin on account of hypoglycemia noted 2 days prior to her discharge. Patient may need to have insulins titrated for hyperglycemia in the SNF. HbA1c in this admission was 9.4 up from 8.5 in March 2016. Patient has had several episodes of syncope. Echo done in June 2017 showed hyperdynamic LV systolic function, with EF of 75%, mildly enlarged LA, mild to moderate mitral annular calcification, no evidence of cardiac tamponade. Patient was due to have an event monitor and follow-up with cardiology. She also needs to follow-up with pulmonology for severe ABDULLAHI. She was discharged on BiPAP. Subjective: On the day of discharge, patient denied any new complains. Wheezing and SOB was improved. Objective: Physical exam: General: Alert, Oriented x3, Cooperative, No apparent distress HEENT: Atraumatic, PERRLA, EOMI, Normocephalic Neck: Supple, No JVD, Negative Carotid Bruits Lungs: Normal air movement, Diminished, Wheezes scattered, improved from prior Cardiovascular: Regular rate, Regular Rhythm, Normal S1, Normal S2, No murmurs Abdomen: Bowel Sounds Present, Soft, Non Tender, Non-Distended, No Hepato-splenomegaly Extremities: No edema Skin: No rashes, No breakdown Musculoskeletal: No Tenderness to Palpation of Joints or Extremities Lymphatic: No Cervical, Supraclavicular, or Inguinal Adenopathy Neurological: Cranial nerves II-XII grossly intact Psych/Mental Status: Normal Affect, Appropriate - Physical Exam Vital Signs Temp Pulse Resp BP Pulse Ox 97.7 F L 88 24 H 158/94 H 90 11/27/17 02:59 11/27/17 07:14 11/27/17 07:14 11/27/17 02:59 11/27/17 07:22 Oxygen Flow Rate (L/min) 2 Oxygen Delivery Method Room Air Weight: 93.4 kg Body Mass Index (BMI) 38.9 Finger Stick Blood Glucose 364 Intake and Output for Last 24 Hours Intake Total 1050 / 1050 1080 / 1080 Output Total 1350 / 1350 1200 / 1200 Balance -300 / -300 -120 / -120 Laboratory Tests Past 24 Hrs WBC 20.2 H RBC 4.79 Hgb 12.9 Hct 38.8 MCV 81.0 MCH 26.9 L MCHC 33.2 RDW 16.7 H POC Glucose POC Glucose 100 66 L 166 H POC Glucose 183 H 162 H 66 L POC Glucose 47 L Discharge Diet: Low fat/ Low Cholesterol, 2000 mg Sodium Diet, Carb Control Diet Discharge Activity: Return to Normal Activity Home Medications: Medications to take at Discharge Albuterol Aerosols [Ventolin Aerosols] 2.5 mg INHALATION Q2H PRN PRN 05/12/17 Atorvastatin Calcium [Lipitor] 40 mg PO QHS 05/12/17 Budesonide/Formoterol 160/4.5 [Symbicort 160/4.5 Mcg Inhaler (SP)] 2 puff INHALATION BID 05/12/17 Bupropion HCl [Bupropion HCl Sr] 150 mg PO BID 05/12/17 Buspirone HCl 10 mg PO TID 05/12/17 Digoxin 250 mcg PO DAILY 05/12/17 Diltiazem [Cardizem] 120 mg PO BID 05/12/17 Famotidine [Pepcid] 20 mg PO BID 05/12/17 Furosemide [Lasix] 40 mg PO BID 05/12/17 Glucagon,Human Recombinant [Glucagon Emergency Kit] 1 mg IM PRN PRN 05/12/17 Guaifenesin [Mucinex] 1,200 mg PO BID 05/12/17 Ipratropium/Albuterol Sulfate [Duoneb] 3 ml INHALATION Q4H.RT 05/12/17 Lisinopril [Prinivil] 5 mg PO DAILY 05/12/17 Propranolol HCl [Inderal (Beta Lou)] 10 mg PO BID 05/12/17 Sennosides/Docusate Sodium [Senna-Docusate Sodium Tablet] 2 tab PO DAILY PRN PRN 05/12/17 Mag Hydrox/Al Hydrox/Simeth [Mylanta II] 30 ml PO Q6H PRN PRN 08/11/17 Polyethylene Glycol 3350 [Miralax] 17 gm PO DAILY 08/11/17 docusate sodium 100 mg capsule 100 mg PO QHS 09/01/17 gabapentin 100 mg capsule 100 mg PO TID cap 09/01/17 Spironolactone [Aldactone] 25 mg PO BID 11/01/17 Benzonatate [Tessalon Perle] 100 mg PO TID PRN PRN 11/02/17 Rivaroxaban [Xarelto] 20 mg PO DAILY #0 11/03/17 Calcium Carbonate [Tums] 500 - 1,000 mg PO Q6H PRN PRN 11/20/17 acetaminophen 325 mg capsule 650 mg PO Q6H PRN cap 11/20/17 Acetaminophen [Tylenol Tablet] 650 mg PO Q6H PRN PRN tablet 11/24/17 Insulin Lispro [Humalog KwikPen] See Protocol SC 4X/DAYCM insuln.pen 11/24/17 Prednisone 10 mg PO UD #30 tablet 11/24/17 Insulin Glargine [Lantus SoloStar Pen] 10 units SC QHS pen 11/27/17 Following Prescrptions Were Given to Patient: Prednisone 10 mg PO UD #30 tablet Primary Care Physician: Camden uBrger [Primary Care Provider] - Please follow up with your Primary Care Physician in: Follow- up within 1-2 days SNF discharge and 3-5 days hospital discharge. Please Follow Up With: Brent Prasad DO When: Follow-up within 1-2 weeks. Please Follow Up With: Camden Mccormick MD When: Follow-up in 4 weeks after holter monitoring performed. Disposition: [facility] facility Minutes spent on discharge:: 40 Patient Condition:: Stable Medical Necessity - Tobacco Use Smoking Status: Former smoker Tobacco Use: Cigarettes Meaningful Use Info Meaningful Use Diagnoses (Choose all that apply): None applicable Code Visit Inpatient E AND M: 03502 Disch Hosp 11/27/17 1224 <Electronically signed by Radha Hopson MD> Date Radha Hopson MD Cosigner Signature (if applicable): Date CC: Camden Burger; Radha Hopson MD; Camden Burger MD Signed TRANSFER TO EXTENDED Observed: 11/27/2017 Status: F Source: [place] CARE 9:38 [facility] REPOSITORY [facility] Medical Records Department [address] [place] [address] Transfer to Extended Care MR#: [id number] Acct: [id number] Name: DARYA LARKIN Rep #: [id number] : 1955 62 From: Jo Esposito PCP: Camden Burger Status: ADM IN DARYA LARKIN (Patient) (Health Ins. Claim No.) (Day of Discharge to Facility) Certification of patient admission REQUIRED AT TIME OF ADMISSION. I CERTIFY THAT POST-HOSPITAL ECF SERVICES ARE REQUIRED TO BE GIVEN ON AN IN-PATIENT BASIS BECAUSE OF THE ABOVE NAMED PATIENT'S NEED FOR PRISON CARE ON A CONTINUING BASIS FOR THE CONDITION(S) FOR WHICH HE/SHE WAS RECEIVING IN-PATIENT HOSPITAL SERVICES PRIOR TO HIS/HER TRANSFER TO THE ECF. 11/24/17 0906 <Electronically signed by Jo Esposito > Date Jo Esposito ADDENDUM by Radha Hopson MD on 11/27/17 at 0938 Code Visit Note changes to insulin as patient had developed hypoglycemia in the hospital. Accucheks ACHS. May increase insulin as well as add premeal insulin if needed for blood sugar control. 11/27/17 0938 <Electronically signed by Radha Hopson MD> Date Radha Hopson MD cc: Camden Bruger; Brent Prasad D.O.; Camden Burger MD * Signed - Diet 11/20/17 15:10 Diet: Cardiac/Low Cholesterol/ADA 1600 DIET Food consistency:: Regular Liquid Consistency:: Regular/Thin Is pt able to select menu?: Yes Diet Comments: NO CONCENTRATED SWEETS - Routine Orders/Code Status Enema Type: Fleetz Enema Frequency: Daily PRN Suppository Type: Dulcolax 10mg Suppository Frequency: Daily PRN O2 Liters per Minute: 2-4 O2 Frequency: Continuous Keep PO Greater than or Equal to (%): 88 - Goal 88-92% Routine Lab Work: - - Repeat CBC, BMP within 1 week. Continue q AC/HS accu checks with insulin regimen changes as needed given tapering steroid regimen w/ expected improvement in blood sugar levels. Code Status: Full Code - Suggestions for Active Care Change Position every (hours): 2 Hours to sit in a chair: 6 Times a day to sit in chair: 3 - Therapies Weight Bearing: Full weight bearing Physical Therapy: Eval and Treat Occupational Therapy: Eval and Treat - Problem/Diagnosis (1) Acute exacerbation of chronic obstructive pulmonary disease (COPD) Status: Acute Current Visit: No (2) Morbid obesity with BMI of 50.0-59.9, adult Status: Chronic Current Visit: Yes (3) ABDULLAHI (obstructive sleep apnea) Status: Chronic Current Visit: No (4) Tobacco dependence due to cigarettes Status: Resolved Current Visit: No (5) Non-compliance Status: Chronic Current Visit: No (6) Microcytic anemia Status: Chronic Current Visit: No (7) Syncope Status: Chronic Current Visit: No (8) Hypersomnia Status: Chronic Current Visit: No (9) Anemia Status: Chronic Current Visit: No (10) HTN (hypertension) Status: Chronic Current Visit: No (11) COPD (chronic obstructive pulmonary disease) Status: Chronic Current Visit: No (12) Chronic pain Status: Chronic Current Visit: No (13) Chronic atrial fibrillation Status: Chronic Current Visit: No (14) Chronic hypoxemic respiratory failure Status: Chronic Comment: non-compliant with oxygen Current Visit: No (15) Hyperlipemia Status: Chronic Current Visit: No (16) Type 2 diabetes mellitus Status: Chronic Comment: uncontrolled Current Visit: No (17) GERD (gastroesophageal reflux disease) Status: Chronic Current Visit: No (18) Anxiety Status: Chronic Current Visit: No - Allergies/Procedures Done in Hospital Allergies/Adverse Reactions: Allergies venom-honey bee [bee venom (honey bee)] Allergy (Verified 11/20/17 11:56) Swelling levofloxacin [From Levaquin] Adverse Reaction (Verified 11/20/17 11:56) Nausea oxycodone HCl [From Percocet] Adverse Reaction (Verified 11/20/17 11:56) Nausea Penicillins Adverse Reaction (Verified 11/20/17 11:56) Nausea/Vom/Diarrhea Procedures: EKG - Type of Care/Length of Stay Estimated LOS: Convalescent Care Less Than 30 days Type of Care Needed: Skilled Rehab Potential: Good Prognosis: Good - Additional Orders/Day of Discharge Additional Orders: (1) HOB. (2) Fall and aspiration precautions. (3) BIPAP 8/4 cm q HS and when sleeping. (4) Continue oxygen supplementation 2-4L NC with goal 88-92% oxygenation. (5) Continue scheduled short-acting insulin with overlapping ISS as needed. Currently also on increased long acting insulin with changes as needed per physician given transitioning on prednisone taper. Hgb 9.4% so uncontrolled prior to presentation. (6) Continue nutrition consultation for education and teaching. (7) Continue holter- monitor testing, was supposed to be done prior but she did not have it performed as chronic syncopal event history. Please contact Cardiology Dr. Mccormick if questions about this testing. H AND P will serve as current which was dated: 11/20/17 Day of Discharge: 11/24/17 - Follow Up Care Primary Care Physician: Camden Burger [Primary Care Provider] - Please follow up with your Primary Care Physician in: Follow- up within 1-2 days SNF discharge and 3-5 days hospital discharge. Please Follow Up With: Brent Prasad DO When: Follow-up within 1-2 weeks. Please Follow Up With: Camden Mccormick MD When: Follow-up in 4 weeks after holter monitoring performed. 11/24/17 0906 <Electronically signed by Jo Esposito > Date Jo Esposito CC: Camden Burger; Brent Prasad D.O.; Camden Burger MD Signed BEDSIDE GLUCOSE Collected: 11/27/2017 Status: F Source: [place] 6:58 AM [facility] [place] REPOSITORY TYPE CODE TESTS RESULT OUT OF RANGE REFERENCE UNITS LAB L501.080 70-110 mg/dL Normal BEDSIDE GLU 100 Result Comment: MANAGEMENT OF PATIENT CARE PER NURSING PROTOCOL Performed By: #### L501.080 #### [facility] Point of Care [address] [place], [place] [id number] BEDSIDE GLUCOSE Collected: 11/27/2017 Status: F Source: [place] 6:32 AM [facility] [place] REPOSITORY TYPE CODE TESTS RESULT OUT OF REFERENCE UNITS RANGE LAB L501.080 70-110 mg/dL Low BEDSIDE GLU 66 Result Comment: MANAGEMENT OF PATIENT CARE PER NURSING PROTOCOL Performed By: #### L501.080 #### [facility] Point of Care [address] [place] [address] CBC W/DIFF, AUTOMATED Collected: 11/27/2017 Status: F Source: [place] 5:35 AM [facility] [place] REPOSITORY TYPE CODE TESTS RESULT OUT OF RANGE REFERENCE UNITS LAB L100.1000 4.4-11.0 K/mm3 High WBC 20.2 LAB L100.1200 4.2-5.4 M/mm3 Normal RBC 4.79 LAB L100.1300 12.0-15.0 g/dl Normal HGB 12.9 LAB L100.1400 37-47 % Normal HCT 38.8 LAB L100.1500 81-99 fL Normal MCV 81.0 LAB L100.1600 27.0-32.0 pg Low MCH 26.9 LAB L100.1700 32-36 g/gl Normal MCHC 33.2 LAB L100.1810 11.6-14.6 % High RDW CV 16.7 LAB L100.1820 35.1-43.9 fl High RDW SD 49.3 LAB L100.1900 150-450 K/mm3 Normal PLT 346 LAB L100.2000 6.2-12.0 fl Normal MPV 10.6 LAB L100.2100 47-70 % Normal NEUT% 61.6 LAB L100.2200 19-41 % Normal LY% 27.9 LAB L100.2300 0-10 % Normal MONO% 8.0 LAB L100.2400 0-5 % Normal EO% 1.3 LAB L100.2500 0-1 % Normal BASO% 0.1 LAB L100.2550 0.0-0.9 % High IM GRAN % 1.100 Result Comment: IG% - Immature Granulocytes (promyelocytes, myelocytes and metamyelocytes) > 1% indicates that a LEFT SHIFT is Present. LAB L100.2620 2.0-7.7 X10 3/uL High Absolute Neut 12.4 LAB L100.2720 0.83-4.51 X10 3/ul High Absolute Lymph 5.63 Performed By: #### L100.0100 #### [facility] [address] [place], [place], [address] BASIC METABOLIC Collected: 11/27/2017 Status: F Source: [place] PROFILE ([facility]) 5:35 AM [facility] [place] REPOSITORY TYPE CODE TESTS RESULT OUT OF RANGE REFERENCE UNITS LAB L501.0100 74-106 mg/dL Low GLU 52 Result Comment: Please note revised GLUCOSE reference range effective 2017. LAB L501.1000 7-18 mg/dL High BUN 33 LAB L501.1100 0.55-1.02 mg/dL Normal CREAT,SERUM 0.84 Result Comment: The validity of the calculated GFR AND GFRAA in patients over 70 years has not been determined. Clinical correlation is essential. LAB L501.1110 >60 mL/min Normal EST GFR 73 Result Comment: Non- GFR Calc LAB L501.1115 >60 mL/min Normal EST GFR - AA 88 Result Comment: GFR Calc LAB L501.1255 ml/min Normal Estimated CRCL 52.40 LAB L501.1300 10-20 RATIO High BUN/CRE 39.1 LAB L501.2200 8.5-10 mg/dL Low .1 CA 8.1 LAB L501.5300 136-14 mmol/L Low 5 NA 131 LAB L501.5600 3.5-5. mmol/L Normal 1 K 4.2 LAB L501.5900 98-107 mmol/L Low CL 97 LAB L501.6100 21.0-3 mmol/L Normal 2.0 CO2 27.0 LAB L501.6200 5-15 Normal GAP 7 Performed By: #### L500.2500 #### [facility] [address] [place], [place], [id number] BEDSIDE GLUCOSE Collected: 11/26/2017 Status: F Source: [place] 9:21 PM [facility] [place] REPOSITORY TYPE CODE TESTS RESULT OUT OF REFERENCE UNITS RANGE LAB L501.080 70-110 mg/dL High BEDSIDE GLU 166 Result Comment: MANAGEMENT OF PATIENT CARE PER NURSING PROTOCOL Performed By: #### L501.080 #### [facility] Point of Care [address] [place] [address] BEDSIDE GLUCOSE Collected: 11/26/2017 Status: F Source: [place] 4:20 PM [facility] [place] REPOSITORY TYPE CODE TESTS RESULT OUT OF REFERENCE UNITS RANGE LAB L501.080 70-110 mg/dL High BEDSIDE GLU 183 Result Comment: MANAGEMENT OF PATIENT CARE PER NURSING PROTOCOL Performed By: #### L501.080 #### [facility] Point of Care [address] [place] [address] BEDSIDE GLUCOSE Collected: 11/26/2017 Status: F Source: [place] 10:38 AM [facility] REPOSITORY TYPE CODE TESTS RESULT OUT OF REFERENCE UNITS RANGE LAB L501.080 70-110 mg/dL High BEDSIDE GLU 162 Result Comment: MANAGEMENT OF PATIENT CARE PER NURSING PROTOCOL Performed By: #### L501.080 #### [facility] Point of Care [address] [place] [address] BEDSIDE GLUCOSE Collected: 11/26/2017 Status: F Source: [place] 7:46 AM [facility] REPOSITORY TYPE CODE TESTS RESULT OUT OF RANGE REFERENCE UNITS LAB L501.080 70-110 mg/dL Normal BEDSIDE GLU 74 Result Comment: MANAGEMENT OF PATIENT CARE PER NURSING PROTOCOL Performed By: #### L501.080 #### [facility] Point of Care [address] [place] [address] BEDSIDE GLUCOSE Collected: 11/26/2017 Status: F Source: [place] 7:23 AM [facility] REPOSITORY TYPE CODE TESTS RESULT OUT OF REFERENCE UNITS RANGE LAB L501.080 70-110 mg/dL Low BEDSIDE GLU 66 Result Comment: MANAGEMENT OF PATIENT CARE PER NURSING PROTOCOL Performed By: #### L501.080 #### [facility] Point of Care [address] [place] [address] BEDSIDE GLUCOSE Collected: 11/26/2017 Status: F Source: [place] 7:08 AM [facility] [place] REPOSITORY TYPE CODE TESTS RESULT OUT OF REFERENCE UNITS RANGE LAB L501.080 70-110 mg/dL Low BEDSIDE GLU 47 Result Comment: MANAGEMENT OF PATIENT CARE PER NURSING PROTOCOL Performed By: #### L501.080 #### [facility] Point of Care [address] [place], [place] [id number] BEDSIDE GLUCOSE Collected: 11/26/2017 Status: F Source: [place] 6:52 AM [facility] [place] REPOSITORY TYPE CODE TESTS RESULT OUT OF REFERENCE UNITS RANGE LAB L501.080 70-110 mg/dL Low alert BEDSIDE GLU 37 Result Comment: Snack Given MANAGEMENT OF PATIENT CARE PER NURSING PROTOCOL Performed By: #### L501.080 #### [facility] Point of Care [address] [place], [place] [address] CBC W/DIFF, AUTOMATED Collected: 11/26/2017 Status: F Source: [place] 5:38 AM [facility] REPOSITORY TYPE CODE TESTS RESULT OUT OF RANGE REFERENCE UNITS LAB L100.1000 4.4-11.0 K/mm3 High WBC 24.2 LAB L100.1200 4.2-5.4 M/mm3 Normal RBC 5.02 LAB L100.1300 12.0-15.0 g/dl Normal HGB 13.5 LAB L100.1400 37-47 % Normal HCT 40.7 LAB L100.1500 81-99 fL Normal MCV 81.1 LAB L100.1600 27.0-32.0 pg Low MCH 26.9 LAB L100.1700 32-36 g/gl Normal MCHC 33.2 LAB L100.1810 11.6-14.6 % High RDW CV 16.7 LAB L100.1820 35.1-43.9 fl High RDW SD 50.0 LAB L100.1900 150-450 K/mm3 Normal PLT 408 LAB L100.2000 6.2-12.0 fl Normal MPV 10.5 LAB L100.2100 47-70 % Normal NEUT% 54.8 LAB L100.2200 19-41 % Normal LY% 31.2 LAB L100.2300 0-10 % High MONO% 11.9 LAB L100.2400 0-5 % Normal EO% 1.3 LAB L100.2500 0-1 % Normal BASO% 0.1 LAB L100.2550 0.0-0.9 % Normal IM GRAN % 0.700 Result Comment: IG% - Immature Granulocytes (promyelocytes, myelocytes and metamyelocytes) > 1% indicates that a LEFT SHIFT is Present. LAB L100.2620 2.0-7.7 X10 3/uL High Absolute Neut 13.3 LAB L100.2720 0.83-4.51 X10 3/ul High Absolute Lymph 7.56 Performed By: #### L100.0100 #### [facility] [address] [place], [address] BASIC METABOLIC Collected: 11/26/2017 Status: F Source: [place] PROFILE ([facility]) 5:38 AM [facility] REPOSITORY TYPE CODE TESTS RESULT OUT OF RANGE REFERENCE UNITS LAB L501.0100 74-106 mg/dL Low alert GLU 39 Result Comment: Critical Result(s) Called at: 06:49:46 11/26/2017 by: Derek Browne RN. (MS3). Glucose result less than 50 mg/dL suggests HYPOGLYCEMIA. Please note revised GLUCOSE reference range effective 2017. LAB L501.1000 7-18 mg/dL High BUN 33 LAB L501.1100 0.55-1.02 mg/dL Normal CREAT,SERUM 0.88 Result Comment: The validity of the calculated GFR AND GFRAA in patients over 70 years has not been determined. Clinical correlation is essential. LAB L501.1110 >60 mL/min Normal EST GFR 69 Result Comment: Non- GFR Calc LAB L501.1115 >60 mL/min Normal EST GFR - AA 84 Result Comment: GFR Calc LAB L501.1255 ml/min Normal Estimated CRCL 50.02 LAB L501.1300 10-20 RATIO High BUN/CRE 37.5 LAB L501.2200 8.5-10 mg/dL Low .1 CA 8.3 LAB L501.5300 136-14 mmol/L Low 5 NA 132 LAB L501.5600 3.5-5. mmol/L Normal 1 K 4.3 LAB L501.5900 98-107 mmol/L Normal CL 99 LAB L501.6100 21.0-3 mmol/L Normal 2.0 CO2 26.0 LAB L501.6200 5-15 Normal GAP 7 Performed By: #### L500.2500 #### [facility] [address] [place], [address] BEDSIDE GLUCOSE Collected: 11/25/2017 Status: F Source: [place] 9:18 PM [facility] REPOSITORY TYPE CODE TESTS RESULT OUT OF REFERENCE UNITS RANGE LAB L501.080 70-110 mg/dL High BEDSIDE GLU 115 Result Comment: MANAGEMENT OF PATIENT CARE PER NURSING PROTOCOL Performed By: #### L501.080 #### [facility] Point of Care [address] [place] [address] DISCHARGE SUMMARY Observed: 11/25/2017 Status: F Source: [place] 4:41 PM [facility] REPOSITORY [facility] Medical Records Department [address] [place] [address] Discharge Summary 11/24/1712 MR#: [id number] Acct: [id number] Name: DARYA LARKIN Rep #: [id number] : 1955 62 From: Jo Esposito PCP: Camden Burger Status: ADM IN [place] [facility] [place] [id number] ADDENDUM by Jo Esposito on 11/25/17 at 1641 Code Visit Discharge initially planned for 11/24/17; however, precertification was not obtained. Awaiting precertification only to transition patient to SNF. Discharge date will be further clarified by attending hospitalist on service at her time of discharge. 11/25/17 1641 <Electronically signed by Jo Esposito > Date Jo Esposito cc: Camden Burger; Jo Esposito; Camden Burger MD * Signed Discharge Date and Diagnosis Date of Admission: 11/20/17 Date of Discharge: 11/24/17 - Primary Discharge Diagnosis (1) Chronic Hypoxic Respiratory Failure with Acute on Chronic COPD exacerbation, Non-compliant with oxygen therapy (2) Diabetes mellitus type II, Uncontrolled w/ Hyperglycemia secondary to Steroid Usage (3) History of Recurrent Syncopal Events (4) Cardiomyopathy Unclear Type (5) CAD (6) Permanent atrial fibrillation (7) Hypertension (8) Hyperlipidemia (9) Anxiety and Depression (10) History of Tobacco Abuse (11) Obesity (12) Chronic Hyponatremia (13) Asymptomatic VT (14) ABDULLAHI, Non-complaint with BIPAP - Secondary Discharge Diagnosis Chronic Problems (Last Reviewed 11/20/17 @ 15:04 by All Karimi DO) Morbid obesity with BMI of 50.0-59.9, adult (Chronic) ABDULLAHI (obstructive sleep apnea) (Chronic) Non-compliance (Chronic) Microcytic anemia (Chronic) Syncope (Chronic) Hypersomnia (Chronic) Anemia (Chronic) Hypomagnesemia (Chronic) HTN (hypertension) (Chronic) Morbid obesity with BMI of 40.0-44.9, adult (Chronic) COPD (chronic obstructive pulmonary disease) (Chronic) Chronic pain (Chronic) Chronic atrial fibrillation (Chronic) Chronic hypoxemic respiratory failure (Chronic) non-compliant with oxygen Hyperlipemia (Chronic) Type 2 diabetes mellitus (Chronic) uncontrolled GERD (gastroesophageal reflux disease) (Chronic) Anxiety (Chronic) Insomnia (Chronic) Hospital Course and Treatment Dr. Prasad Pulmonary Operations: None Procedures: EKG Summary of Care Provided: The patient is a 62 y/o F w/ PMHx: Obesity, History of Tobacco use prior, Anxiety and Depression, Chronic Hypoxic Respiratory Failure (2-3L NC baseline) w/ Chronic COPD, HTN, HLD, Diabetes mellitus type II, History of SVT, Permanent atrial fibrillation, CAD, Cardiomyopathy Unclear Type who presents to the [facility] on 11/21/17 as direct admission with history of progressively worsening dyspnea, non-productive cough, wheezing without improvement with aerosols x 4-5 days, notably concerning appearing when evaluated at her Cardiology office and referred to [facility] for evaluation and treatment for COPD exacerbation. Admitted to [facility], noted that she had been weaned off oxygen chronically over the last year, will maintain on oxygen with wean to RA as tolerated but expect likely need for oxygen supplementation upon discharge. Will continue ATC duonebs, PRN albuterol, IV solumedrol-->prednisone 11/24/17, defer abx given no marked CBC WBC elevation and afebrile, HOB, IS parameters w/ requested sputum cultures and preliminary respiratory viral panel with no organisms. Dr. Prasda 11/23/17 set-up of stacked aerosols to attempt to improve her status also with improvement. Noted also given her status/severity of COPD, okay to maintain saturations 88-92%. Re-evaluation this AM w/ transition from IV solumedrol to prednisone, encouraged PT and OT evaluation and had been declining prior w/ SNF versus home with home health at [facility] discharge today. Patient w/ Diabetes mellitus type II, Uncontrolled w/ Hyperglycemia secondary to Steroid Usage w/ Elevated BS upon presentation and given current steroid IV usage, increased previously added AM lantus in addition to her continued home q HS regimen, increased regimen again BID 11/23/17 with some improvement, HgbA1c 9.4% HgbA1c which has increased since 03/27/16 Hgb 8.5% noted, increased TID short acting regimen, ADA diet, accu checks w/ ISS. Transiting to oral prednisone w/ discharge plan BID lantus regimen w/ alterations pending repeat BS trending w/ taper of her steroids. Patient w/ history of Recurrent Syncopal Events w/ several admissions for syncopal events, 07/11/17 ECHO w/ hyperdynamic LV systolic function, EF 75%, mildly enlarged LA, mild to moderate mitral annular calcification, trivial MVI, trivial TBI, mild AVS, small pericardial effusion, no evidence of cardiac tamponade. Stress testing 05/13/17 with normal pharmacological myocardial perfusion stress testing. Patient was supposed to wear an event monitor recently but this did not occur. Follow-up with Cardiology as noted 11/20/17 resulting in transition for COPD admission. Have noted during current admission episodes of VT, short, primarily with exertion, requested CM/SW to set-up HM evaluation upon discharge w/ planned cardiology follow-up upon completion. Per Dr. Prasad patient w/ ABDULLAHI history, 09/22/17 study w/ severe ABDULLAHI. Trial BIPAP 09/19; however, patient non-compliant thus insurance coverage of device denied until completion of titration study which she has not performed. Will encourage completion of this study and follow-up with pulmonary with 1-2 weeks upon current discharge. Patient discharged in improved, near baseline condition w/ strong recommendations for PCP, Cardiology, Pulmonary follow-up with need for HM ongoing evaluation, repeat pulmonary assessment for ABDULLAHI setting changes, continued steroid usage with taper, improved BS control with regimen changes. Given patient limited ability with PT and OT strongly encouraged residential facility which patient was amenable to setting up. Oxygenation testing performed prior to discharge with noted 87-88% on room air at rest only with encouraged compliance with oxygen supplementation. Home Medications: Medications to take at Discharge Albuterol Aerosols [Ventolin Aerosols] 2.5 mg INHALATION Q2H PRN PRN 05/12/17 Atorvastatin Calcium [Lipitor] 40 mg PO QHS 05/12/17 Budesonide/Formoterol 160/4.5 [Symbicort 160/4.5 Mcg Inhaler (SP)] 2 puff INHALATION BID 05/12/17 Bupropion HCl [Bupropion HCl Sr] 150 mg PO BID 05/12/17 Buspirone HCl 10 mg PO TID 05/12/17 Digoxin 250 mcg PO DAILY 05/12/17 Diltiazem [Cardizem] 120 mg PO BID 05/12/17 Famotidine [Pepcid] 20 mg PO BID 05/12/17 Furosemide [Lasix] 40 mg PO BID 05/12/17 Glucagon,Human Recombinant [Glucagon Emergency Kit] 1 mg IM PRN PRN 05/12/17 Guaifenesin [Mucinex] 1,200 mg PO BID 05/12/17 Ipratropium/Albuterol Sulfate [Duoneb] 3 ml INHALATION Q4H.RT 05/12/17 Lisinopril [Prinivil] 5 mg PO DAILY 05/12/17 Propranolol HCl [Inderal (Beta Lou)] 10 mg PO BID 05/12/17 Sennosides/Docusate Sodium [Senna-Docusate Sodium Tablet] 2 tab PO DAILY PRN PRN 05/12/17 Mag Hydrox/Al Hydrox/Simeth [Mylanta II] 30 ml PO Q6H PRN PRN 08/11/17 Polyethylene Glycol 3350 [Miralax] 17 gm PO DAILY 08/11/17 docusate sodium 100 mg capsule 100 mg PO QHS 09/01/17 gabapentin 100 mg capsule 100 mg PO TID cap 09/01/17 Spironolactone [Aldactone] 25 mg PO BID 11/01/17 Benzonatate [Tessalon Perle] 100 mg PO TID PRN PRN 11/02/17 Nitroglycerin 0.4 mg SL X1 11/02/17 Rivaroxaban [Xarelto] 20 mg PO DAILY #0 11/03/17 Calcium Carbonate [Tums] 500 - 1,000 mg PO Q6H PRN PRN 11/20/17 acetaminophen 325 mg capsule 650 mg PO Q6H PRN cap 11/20/17 Acetaminophen [Tylenol Tablet] 650 mg PO Q6H PRN PRN tablet 11/24/17 Hydrocodone Bitart/Apap 5-325 [[place] 5/325] 1 tab PO Q6H PRN PRN 3 Days #12 tab 11/24/17 Insulin Glargine,Hum.rec.anlog [Lantus Solostar] 60 unit SQ BID #0 11/24/17 Insulin Lispro [Humalog KwikPen] 15 unit SC TIDCM insuln.pen 11/24/17 Insulin Lispro [Humalog KwikPen] See Protocol SC 4X/DAYCM insuln.pen 11/24/17 Prednisone 10 mg PO UD #30 tablet 11/24/17 Following Prescrptions Were Given to Patient: Hydrocodone Bitart/Apap 5-325 [[place] 5/325] 1 tab PO Q6H PRN PRN 3 Days #12 tab PRN Reason: Pain Prednisone 10 mg PO UD #30 tablet Primary Care Physician: Camden Burger [Primary Care Provider] - Please follow up with your Primary Care Physician in: Follow- up within 1-2 days SNF discharge and 3-5 days hospital discharge. Please Follow Up With: Brent Prasad DO When: Follow-up within 1-2 weeks. Please Follow Up With: Camden Mccormick MD When: Follow-up in 4 weeks after holter monitoring performed. Disposition: [facility] facility Minutes spent on discharge:: 35 Patient Condition:: Fair Medical Necessity - Tobacco Use Smoking Status: Former smoker Tobacco Use: Cigarettes Meaningful Use Info Meaningful Use Diagnoses (Choose all that apply): None applicable Code Visit Inpatient E AND M: 91414 Disch Hosp 11/24/17 1006 <Electronically signed by Jo Esposito > Date Jo Esposito Cosigner Signature (if applicable): Date CC: Camden Burger; Jo Esposito; Camden Burger MD Signed BEDSIDE GLUCOSE Collected: 11/25/2017 Status: F Source: [place] 4:32 PM [facility] REPOSITORY TYPE CODE TESTS RESULT OUT OF REFERENCE UNITS RANGE LAB L501.080 70-110 mg/dL High BEDSIDE GLU 180 Result Comment: MANAGEMENT OF PATIENT CARE PER NURSING PROTOCOL Performed By: #### L501.080 #### [facility] Point of Care [address] [place] [address] BEDSIDE GLUCOSE Collected: 11/25/2017 Status: F Source: [place] 11:59 AM [facility] [place] REPOSITORY TYPE CODE TESTS RESULT OUT OF REFERENCE UNITS RANGE LAB L501.080 70-110 mg/dL High BEDSIDE GLU 434 Result Comment: MANAGEMENT OF PATIENT CARE PER NURSING PROTOCOL Performed By: #### L501.080 #### [facility] Point of Care [address] [place] [address] BEDSIDE GLUCOSE Collected: 11/25/2017 Status: F Source: [place] 8:16 AM [facility] [place] REPOSITORY TYPE CODE TESTS RESULT OUT OF REFERENCE UNITS RANGE LAB L501.080 70-110 mg/dL High BEDSIDE GLU 116 Result Comment: MANAGEMENT OF PATIENT CARE PER NURSING PROTOCOL Performed By: #### L501.080 #### [facility] Point of Care [address] [place] [address] BEDSIDE GLUCOSE Collected: 11/25/2017 Status: F Source: [place] 7:55 AM [facility] REPOSITORY TYPE CODE TESTS RESULT OUT OF REFERENCE UNITS RANGE LAB L501.080 70-110 mg/dL Low BEDSIDE GLU 59 Result Comment: MANAGEMENT OF PATIENT CARE PER NURSING PROTOCOL Performed By: #### L501.080 #### [facility] Point of Care [address] [place] [address] CBC W/DIFF, AUTOMATED Collected: 11/25/2017 Status: F Source: [place] 5:25 AM [facility] REPOSITORY TYPE CODE TESTS RESULT OUT OF RANGE REFERENCE UNITS LAB L100.1000 4.4-11.0 K/mm3 High WBC 16.2 LAB L100.1200 4.2-5.4 M/mm3 Normal RBC 4.67 LAB L100.1300 12.0-15.0 g/dl Normal HGB 12.6 LAB L100.1400 37-47 % Normal HCT 38.0 LAB L100.1500 81-99 fL Normal MCV 81.4 LAB L100.1600 27.0-32.0 pg Normal MCH 27.0 LAB L100.1700 32-36 g/gl Normal MCHC 33.2 LAB L100.1810 11.6-14.6 % High RDW CV 16.7 LAB L100.1820 35.1-43.9 fl High RDW SD 49.8 LAB L100.1900 150-450 K/mm3 Normal PLT 331 LAB L100.2000 6.2-12.0 fl Normal MPV 10.8 LAB L100.2100 47-70 % Normal NEUT% 66.1 LAB L100.2200 19-41 % Normal LY% 22.0 LAB L100.2300 0-10 % High MONO% 10.9 LAB L100.2400 0-5 % Normal EO% 0.1 LAB L100.2500 0-1 % Normal BASO% 0.1 LAB L100.2550 0.0-0.9 % Normal IM GRAN % 0.800 Result Comment: IG% - Immature Granulocytes (promyelocytes, myelocytes and metamyelocytes) > 1% indicates that a LEFT SHIFT is Present. LAB L100.2620 2.0-7.7 X10 3/uL High Absolute Neut 10.7 LAB L100.2720 0.83-4.51 X10 3/ul Normal Absolute Lymph 3.57 Performed By: #### L100.0100 #### [facility], [address] BASIC METABOLIC Collected: 11/25/2017 Status: F Source: [place] PROFILE (BMP) 5:25 AM [facility] REPOSITORY TYPE CODE TESTS RESULT OUT OF RANGE REFERENCE UNITS LAB L501.0100 74-106 mg/dL Normal GLU 87 Result Comment: Please note revised GLUCOSE reference range effective 2017. LAB L501.1000 7-18 mg/dL High BUN 35 LAB L501.1100 0.55-1.02 mg/dL Normal CREAT,SERUM 0.86 Result Comment: The validity of the calculated GFR AND GFRAA in patients over 70 years has not been determined. Clinical correlation is essential. LAB L501.1110 >60 mL/min Normal EST GFR 71 Result Comment: Non- GFR Calc LAB L501.1115 >60 mL/min Normal EST GFR - AA 86 Result Comment: GFR Calc LAB L501.1255 ml/min Normal Estimated CRCL 51.18 LAB L501.1300 10-20 RATIO High BUN/CRE 40.8 LAB L501.2200 8.5-10 mg/dL Normal .1 CA 8.9 LAB L501.5300 136-14 mmol/L Normal 5 NA 136 LAB L501.5600 3.5-5. mmol/L Normal 1 K 4.5 LAB L501.5900 98-107 mmol/L Normal CL 100 LAB L501.6100 21.0-3 mmol/L Normal 2.0 CO2 28.0 LAB L501.6200 5-15 Normal GAP 8 Performed By: #### L500.2500 #### [facility] [address] [place] [address], [id number] BEDSIDE GLUCOSE Collected: 11/24/2017 Status: F Source: [place] 9:41 PM [facility] REPOSITORY TYPE CODE TESTS RESULT OUT OF REFERENCE UNITS RANGE LAB L501.080 70-110 mg/dL High BEDSIDE GLU 191 Result Comment: MANAGEMENT OF PATIENT CARE PER NURSING PROTOCOL Performed By: #### L501.080 #### [facility] Point of Care [address] [facility] [place], [place] [address] BEDSIDE GLUCOSE Collected: 11/24/2017 Status: F Source: [place] 4:34 PM [facility] REPOSITORY TYPE CODE TESTS RESULT OUT OF REFERENCE UNITS RANGE LAB L501.080 70-110 mg/dL High BEDSIDE GLU 230 Result Comment: MANAGEMENT OF PATIENT CARE PER NURSING PROTOCOL Performed By: #### L501.080 #### [facility] Point of Care [address] [facility] [place] [address] BEDSIDE GLUCOSE Collected: 11/24/2017 Status: F Source: [place] 11:34 AM [facility] REPOSITORY TYPE CODE TESTS RESULT OUT OF REFERENCE UNITS RANGE LAB L501.080 70-110 mg/dL High BEDSIDE GLU 358 Result Comment: MANAGEMENT OF PATIENT CARE PER NURSING PROTOCOL Performed By: #### L501.080 #### [place] [facility] [place] Point of Care [address] [place] [address] BEDSIDE GLUCOSE Collected: 11/24/2017 Status: F Source: [place] 7:47 AM [facility] REPOSITORY TYPE CODE TESTS RESULT OUT OF REFERENCE UNITS RANGE LAB L501.080 70-110 mg/dL High BEDSIDE GLU 265 Result Comment: MANAGEMENT OF PATIENT CARE PER NURSING PROTOCOL Performed By: #### L501.080 #### [place] [facility] Point of Care [address] [place] [address] BASIC METABOLIC Collected: 11/24/2017 Status: F Source: [place] PROFILE (BMP) 5:56 AM [facility] REPOSITORY TYPE CODE TESTS RESULT OUT OF RANGE REFERENCE UNITS LAB L501.0100 74-106 mg/dL High GLU 212 Result Comment: Glucose result greater than or equal to 200 mg/dL suggests DIABETES MELLITUS per A.D.A. criteria. Please note revised GLUCOSE reference range effective 2017. LAB L501.1000 7-18 mg/dL High BUN 27 LAB L501.1100 0.55-1.02 mg/dL Normal CREAT,SERUM 0.90 Result Comment: The validity of the calculated GFR AND GFRAA in patients over 70 years has not been determined. Clinical correlation is essential. LAB L501.1110 >60 mL/min Normal EST GFR 67 Result Comment: Non- GFR Calc LAB L501.1115 >60 mL/min Normal EST GFR - AA 81 Result Comment: GFR Calc LAB L501.1255 ml/min Normal Estimated CRCL 48.91 LAB L501.1300 10-20 RATIO High BUN/CRE 30.0 LAB L501.2200 8.5-10 mg/dL Normal .1 CA 8.6 LAB L501.5300 136-14 mmol/L Low 5 NA 135 LAB L501.5600 3.5-5. mmol/L Normal 1 K 4.8 LAB L501.5900 98-107 mmol/L Normal CL 101 LAB L501.6100 21.0-3 mmol/L Normal 2.0 CO2 25.0 LAB L501.6200 5-15 Normal GAP 9 Performed By: #### L500.2500 #### [facility] [address] [place], [place], [address] CBC W/DIFF, AUTOMATED Collected: 11/24/2017 Status: F Source: [place] 5:56 AM [facility] REPOSITORY TYPE CODE TESTS RESULT OUT OF RANGE REFERENCE UNITS LAB L100.1000 4.4-11.0 K/mm3 High WBC 11.4 LAB L100.1200 4.2-5.4 M/mm3 Normal RBC 4.42 LAB L100.1300 12.0-15.0 g/dl Low HGB 11.8 LAB L100.1400 37-47 % Low HCT 35.7 LAB L100.1500 81-99 fL Low MCV 80.8 LAB L100.1600 27.0-32.0 pg Low MCH 26.7 LAB L100.1700 32-36 g/gl Normal MCHC 33.1 LAB L100.1810 11.6-14.6 % High RDW CV 16.7 LAB L100.1820 35.1-43.9 fl High RDW SD 48.7 LAB L100.1900 150-450 K/mm3 Normal PLT 281 LAB L100.2000 6.2-12.0 fl Normal MPV 10.6 LAB L100.2100 47-70 % High NEUT% 81.9 LAB L100.2200 19-41 % Low LY% 13.8 LAB L100.2300 0-10 % Normal MONO% 3.7 LAB L100.2400 0-5 % Normal EO% 0.0 LAB L100.2500 0-1 % Normal BASO% 0.1 LAB L100.2550 0.0-0.9 % Normal IM GRAN % 0.500 Result Comment: IG% - Immature Granulocytes (promyelocytes, myelocytes and metamyelocytes) > 1% indicates that a LEFT SHIFT is Present. LAB L100.2620 2.0-7.7 X10 3/uL High Absolute Neut 9.4 LAB L100.2720 0.83-4.51 X10 3/ul Normal Absolute Lymph 1.58 Performed By: #### L100.0100 #### [facility] [address] [place], [address] NICOTINE SCREEN BLOOD Collected: 11/24/2017 Status: F Source: [place] 5:45 AM [facility] REPOSITORY TYPE CODE TESTS RESULT OUT OF RANGE REFERENCE UNITS LAB L3600.3410 CUTOFF= 0.3 ug/mL Normal NICOTINE BLD None Detected Result Comment: MARKER FOR ACTIVE SMOKING. COTININE IS THE MAJOR METABOLITE OF NICOTINE AND MAY BE DETECTED FOR LONG 7 DAYS AFTER EXPOSURE. CUTOFF IS SET HIGH TO RULE OUT PASSIVE INHALATION. LAB L3600.3425 CUTOFF= 0.3 ug/mL Normal COTININE BLD None Detected Result Comment: MARKER FOR ACTIVE SMOKING. COTININE IS THE MAJOR METABOLITE OF NICOTINE AND MAY BE DETECTED FOR LONG 7 DAYS AFTER EXPOSURE. CUTOFF IS SET HIGH TO RULE OUT PASSIVE INHALATION. Performed By: #### L3600.3400 #### [facility] (refer to report for specific site) refer to report for address and phone number BEDSIDE GLUCOSE Collected: 11/23/2017 Status: F Source: [place] 10:24 PM [facility] REPOSITORY TYPE CODE TESTS RESULT OUT OF REFERENCE UNITS RANGE LAB L501.080 70-110 mg/dL High BEDSIDE GLU 378 Result Comment: MANAGEMENT OF PATIENT CARE PER NURSING PROTOCOL Performed By: #### L501.080 #### [facility] Point of Care [address] [facility] [place], [place] [address] BEDSIDE GLUCOSE Collected: 11/23/2017 Status: F Source: [place] 4:58 PM [facility] REPOSITORY TYPE CODE TESTS RESULT OUT OF REFERENCE UNITS RANGE LAB L501.080 70-110 mg/dL High BEDSIDE GLU 127 Result Comment: MANAGEMENT OF PATIENT CARE PER NURSING PROTOCOL Performed By: #### L501.080 #### [facility] Point of Care [address] [facility] [place], [place] [address] 12 LEAD ELECTROCARDIOGRAM Observed: 11/23/2017 Status: F Source: [place] 2:50 PM [facility] REPOSITORY [facility] [address] [place] [id number] 12 Lead EKG 11/20/17 1158 MR#: [id number] Acct: [id number] Name: DARYA LARKIN Rep #: [id number] : 1955 62 From: Lan Lilly MD Attending Dr: Jo Esposito Status: ADM IN Ordering Dr: Moses Coronado MD Date: 11/20/17 [place] [facility] F C Admitted: 11/20/17 Test Reason : SOB Blood Pressure : / mmHG Vent. Rate : 066 BPM Atrial Rate : 053 BPM P-R Int : 000 ms QRS Dur : 090 ms QT Int : 374 ms P-R-T Axes : 000 070 -79 degrees QTc Int : 392 ms Atrial fibrillation RSR' or QR pattern in V1 suggests right ventricular conduction delay Septal infarct , age undetermined Marked ST abnormality, possible inferior subendocardial injury Abnormal ECG Confirmed by LAN LILLY MD ([id number]), photography editor DIANA GALVEZ ([id number]) on 11/23/2017 2:50:12 PM Referred By: All Karimi Confirmed By:LAN LILLY MD 11/23/17 1450 Date Lan Lilly MD CC: Camden Burger; Jo Esposito; All Karimi DO; Moses Coronado MD; Camden Burger MD Signed CONSULTATION Observed: 11/23/2017 Status: F Source: [place] 1:13 PM [facility] Medical Records Department [address] [place] [id number] Consultation 11/23/17 1014 MR#: [id number] Acct: [id number] Name: DARYA LARKIN Rep #: [id number] : 1955 62 From: Brent Prasad DO PCP: Camden Burger Status: ADM IN Y [facility] Reason for Consult Date of Consultation: 11/23/17 Reason for Consultation: COPD exacerbation History of Present Illness: The patient is a 62-year-old female, with a history as outlined below, who presented to the emergency department on November 20 with progressive shortness of breath, chest tightness, wheezing and nonproductive cough of 3-4 days duration. The patient reports that she recently quit smoking approximately 2 months ago. She reports compliance with use of her home Symbicort twice daily. She does have access to albuterol rescue inhaler, but is unable to tell me how many times per day she has been utilizing said medication. She also reports that she is no longer using supplemental oxygen. On presentation to the emergency department, the patient was noted to be afebrile hemodynamically stable. She was tachypneic and hypoxic, saturating 89% on room air. Laboratory evaluation revealed an elevated white blood cell count of 14,000. Chemistry profile was largely unremarkable. Troponin and BNP were within normal limits. A plain film chest x-ray obtained in the emergency department revealed no acute cardiopulmonary process. The patient was subsequently admitted to the medical floor where she has been maintained on scheduled aerosol treatments, Pulmicort, and steroids. She is currently maintaining appropriate oxygen saturations on room air. However, her wheezing persists. The patient is currently established with the pulmonary medicine group and was last seen by her nurse practitioner in September. She has a history of chronic hypoxemic respiratory failure with a baseline 2 L supplemental oxygen requirement. The patient has an extensive smoking history of greater than 100 pack years. She currently resides in a residential facility. During her last office visit with our nurse practitioner, she was noted to have findings of hypersomnia and witnessed apneas. Split night study completed on September 22, 2017 shows that the patient has severe obstructive sleep apnea, and unfortunately due to limitations of the split-night study there were not able to appropriately determine BiPAP settings. It was suggested the patient be started on a BiPAP of 8/4. The patient did not wear the BiPAP for the remainder of the study, therefore insurance coverage denied set up of the device until a complete titration study can be obtained. She is currently utilizing Symbicort and DuoNeb's. Attempts at obtaining pulmonary function testing in May 2017 was unsuccessful as the patient refused to utilize the mouthpiece due to excessive gagging. Therefore, the test results were uninterpretable due to a lack of patient effort and technique. Past Medical History Past Medical History (Chronic Problems): Chronic Problems (Last Reviewed 11/20/17 @ 15:04 by All Karimi DO) Morbid obesity with BMI of 50.0-59.9, adult (Chronic) Tobacco dependence due to cigarettes (Chronic) Non-compliance (Chronic) Microcytic anemia (Chronic) Hypersomnia (Chronic) Anemia (Chronic) Hypomagnesemia (Chronic) HTN (hypertension) (Chronic) Morbid obesity with BMI of 40.0-44.9, adult (Chronic) Chronic pain (Chronic) Chronic atrial fibrillation (Chronic) Chronic hypoxemic respiratory failure (Chronic) non-compliant with oxygen Hyperlipemia (Chronic) ECHO in June of 2017 showed a 75% EF Type 2 diabetes mellitus (Chronic) uncontrolled GERD (gastroesophageal reflux disease) (Chronic) Anxiety (Chronic) Insomnia (Chronic) Medical History: Medical History (Last Reviewed 11/20/17 @ 15:04 by All Karimi DO) Hypersomnia (Chronic) G47.10 Chest pain (Acute) R07.9 Anemia (Chronic) D64.9 Hypomagnesemia (Chronic) E83.42 HTN (hypertension) (Chronic) I10 Morbid obesity with BMI of 40.0-44.9, adult (Chronic) E66.01, Z68.41 COPD (chronic obstructive pulmonary disease) (Acute) J44.9 Chronic pain (Chronic) G89.29 Chronic atrial fibrillation (Chronic) I48.2 Chronic hypoxemic respiratory failure (Chronic) J96.11 non-compliant with oxygen Hyperlipemia (Chronic) E78.5 ECHO in June of 2017 showed a 75% EF Type 2 diabetes mellitus (Chronic) E11.9 uncontrolled GERD (gastroesophageal reflux disease) (Chronic) K21.9 Anxiety (Chronic) F41.9 Insomnia (Chronic) G47.00 Osteoporosis M81.0 Cardiomyopathy (Ruled-out) I42.9 EF in Oct 2015 45-50 Left ankle pain (Inactive) M25.572 Non-compliance (Inactive) Z91.19 withn follow up with pulmonary Allergies venom-honey bee [bee venom (honey bee)] Allergy (Verified 11/20/17 11:56) Swelling levofloxacin [From Levaquin] Adverse Reaction (Verified 11/20/17 11:56) Nausea oxycodone HCl [From Percocet] Adverse Reaction (Verified 11/20/17 11:56) Nausea Penicillins Adverse Reaction (Verified 11/20/17 11:56) Nausea/Vom/Diarrhea Home Medications: Ambulatory Orders Medication Instructions Recorded Surgical History: Surgical History (Last Reviewed 11/20/17 @ 15:05 by All Karimi DO) Cataract extraction status Z98.49 History of lumbar surgery Z98.890 History of tonsillectomy and adenoidectomy Z98.890 History of total hysterectomy Z90.710 Surgical History: hysterectomy, tonsillectomy, - - Lumbar surgery. Psychiatric History: Anxiety, Depression COURTROOM REPORTER History: No pertinent COURTROOM REPORTER history Smoking Status: Former smoker Tobacco Use: Cigarettes Alcohol: None Drugs: None - *Family History Maternal Family History: Family History (Last Reviewed 11/20/17 @ 15:05 by All Karimi DO) Sister Arthritis Diabetes Father Cancer Aunt Diabetes History Items: - - She reports that she is unaware of what her mother's health history was like Paternal Family History: Family History (Last Reviewed 11/20/17 @ 15:05 by All Karimi DO) Sister Arthritis Diabetes Father Cancer Aunt Diabetes History Items: Cancer, - - father with throat cancer. Sibling Family History: Family History (Last Reviewed 11/20/17 @ 15:05 by All Karimi DO) Sister Arthritis Diabetes Father Cancer Aunt Diabetes History Items: Asthma, COPD, Hypertension Review of Systems Constitutional: Denies: Chills, Fever Eyes: Denies: Blurred vision, Double vision HEENT: Denies: Head Aches, Sinus Congestion, Sinus Drainage Cardiovascular: Reports: Chest Tightness Respiratory: Reports: Cough, Shortness of Breath, Wheezing. Denies: Sputum production Gastrointestinal: Denies: Abdominal Pain, Nausea, Vomiting Genitourinary: Denies: Dysuria Musculoskeletal: Denies: Joint Pain, Joint Tenderness Skin: Denies: Rash, Wounds Neurological: Denies: Numbness, Tingling, Focal weakness Psychiatric: Denies: Anxiety, Depression, Homicidal Ideations, Suicidal Ideations Hematologic/ Lymphatic: Denies: Easy Bruising, Easy Bleeding Objective: The patient's most recent lab work, culture data and imaging studies have all been personally reviewed. Respiratory viral panel was negative. - Physical Exam General: Alert, Cooperative, No apparent distress, - - Sitting in wheelchair HEENT: Atraumatic, PERRLA, Normocephalic Oral: No Gingival or Mucosal Lesions/ Ulcerations Neck: Supple, No Nodes, Trachea Midline Lungs: No rhonchi, No rales, Diminished, Wheezes, - - Able to speak in complete sentences. Cardiovascular: Normal S1, Normal S2, No murmurs, Irregular Rate Abdomen: Bowel Sounds Present, Soft, Non Tender, Obese Extremities: No cyanosis, Clubbing, Edema Skin: No breakdown Musculoskeletal: No Tenderness to Palpation of Joints or Extremities, No Muscle Wasting Lymphatic: No Cervical, Supraclavicular, or Inguinal Adenopathy Neurological: Neuro grossly intact Psych/Mental Status: Normal Affect, Appropriate Vital Signs Temp Pulse Resp BP Pulse Ox 97.5 F L 88 16 115/65 93 11/23/17 07:31 11/23/17 09:26 11/23/17 09:26 11/23/17 07:31 11/23/17 09:26 Oxygen Flow Rate (L/min) 1 Oxygen Delivery Method Room Air Weight: 205 lb 14.588 oz Body Mass Index (BMI) 38.9 Finger Stick Blood Glucose 364 Intake and Output for Last 24 Hours Intake Total 2180 / 2180 1890 / 1890 1000 / 1000 Output Total 1300 / 1300 1750 / 1750 2395 / 2395 Balance 880 / 880 140 / 140 -1395 / -1395 Microbiology Past 72 Hours 11/21/17 07:18 Respiratory Panel (PCR) - Final Mucosa - Nasopharyngeal Laboratory Tests Past 24 Hrs WBC 13.3 H RBC 4.25 Hgb 11.3 L Hct 34.4 L MCV 80.9 L MCH 26.6 L MCHC 32.8 RDW 16.7 H RDW Differential 49.0 H POC Glucose POC Glucose 256 H 460 H* 311 H POC Glucose 432 H Clinical Impression(s) from Imaging Studies Chest X-Ray 11/20/17 12:10 IMPRESSION: Normal x-ray examination of the chest. Electronically Signed: Danny Hale MD at 13:08 EDT , Service support , Assessment/Plan All Active Problems (Last Reviewed 11/20/17 @ 15:04 by All Karimi DO) Abdominal pain (Acute) ABDULLAHI (obstructive sleep apnea) (Acute) Acute exacerbation of chronic obstructive pulmonary disease (COPD) (Acute) Syncope (Acute) Chest pain (Acute) Chest pain (Acute) COPD (chronic obstructive pulmonary disease) (Acute) Acute and chronic respiratory failure with hypoxia (Resolved) Acute bronchitis due to human metapneumovirus (Resolved) Atrial fibrillation with RVR (Resolved) COPD with acute exacerbation (Resolved) Gram-negative pneumonia (Resolved) Cardiomyopathy (Ruled-out) RECOMMENDATIONS: 1. Maintain oxygen saturations 88-92%. 2. Empiric BiPAP 8/4 centimeters of water can be utilized nightly, if the patient is agreeable. 3. Continue scheduled bronchodilators and steroids as ordered. 4. Order has been placed for serial aerosol treatments every hour for the next 3 hours. IMPRESSIONS: 1. Presumptive COPD with exacerbation Although the patient does have presumptive COPD, she has been unable previously to perform pulmonary function testing. Therefore, the severity of her disease is unknown. She is currently utilizing Symbicort and duo nebs in her nursing facility. I do question the current remission status of her cigarette dependency. There has been no readily identifiable precipitating etiology for the patient's exacerbation. Respiratory viral panel was negative and plain film chest x-ray revealed no acute cardiopulmonary process. I agree with continuing scheduled bronchodilators, including Pulmicort and systemic steroids. I will place an order for the patient to receive stacked albuterol aerosol treatments every 1 hour for the next 3 hours. Continue to encourage incentive spirometer use and mobilize patient as tolerated. 2. Chronic hypoxemic respiratory failure The patient is supposed to be utilizing 2 L/min of supplemental oxygen. However, she states that a physician discontinued her supplemental oxygen. Nobody in the pulmonary medicine clinic stopped her supplemental oxygen. Therefore, I suspect highly that she will need to have it reordered upon discharge from the hospital. Okay to maintain oxygen saturations 88-92%. 3. Severe obstructive sleep apnea Split night study completed on September 22, 2017 showed that the patient has severe obstructive sleep apnea, and unfortunately due to limitations of the split- night study they were not able to appropriately determine BiPAP settings. It was suggested the patient be started on a BiPAP of 8/4. However, the patient did not wear the BiPAP for the remainder of the study. Therefore insurance coverage denied set up of the device until a complete titration study could be obtained. This has yet to be completed. 4. Tobacco dependency, currently in remission The patient does report that she quit smoking approximately 2 months ago. Per documentation from our nurse practitioner at the end of September 2017, the patient was still smoking cigarettes. Therefore, her remission status is questionable. This note was generated with [employer] dictation software. It may contain incorrect words, spelling, and punctuation that were not noted in checking the note before signing. Code Visit Inpatient Gelacio GARCIA M: [id number] Init Hosp L3 11/23/17 1313 <Electronically signed by Bernt Prasad DO> Date Brent Prasad DO Cosigner Signature (if applicable): Date CC: Camden Burger; Brent Prasad D.O.; All Karimi DO; Camden Burger MD Signed BEDSIDE GLUCOSE Collected: 11/23/2017 Status: F Source: [place] 12:12 PM [facility] REPOSITORY TYPE CODE TESTS RESULT OUT OF REFERENCE UNITS RANGE LAB L501.080 70-110 mg/dL High BEDSIDE GLU 324 Result Comment: MANAGEMENT OF PATIENT CARE PER NURSING PROTOCOL Performed By: #### L501.080 #### [facility] Point of Care [address] [place] [address] BEDSIDE GLUCOSE Collected: 11/23/2017 Status: F Source: [place] 6:35 AM [facility] REPOSITORY TYPE CODE TESTS RESULT OUT OF REFERENCE UNITS RANGE LAB L501.080 70-110 mg/dL High BEDSIDE GLU 256 Result Comment: MANAGEMENT OF PATIENT CARE PER NURSING PROTOCOL Performed By: #### L501.080 #### [facility] Point of Care [address] [place] [address] CBC W/DIFF, AUTOMATED Collected: 11/23/2017 Status: F Source: [place] 5:00 AM [facility] REPOSITORY TYPE CODE TESTS RESULT OUT OF RANGE REFERENCE UNITS LAB L100.1000 4.4-11.0 K/mm3 High WBC 13.3 LAB L100.1200 4.2-5.4 M/mm3 Normal RBC 4.25 LAB L100.1300 12.0-15.0 g/dl Low HGB 11.3 LAB L100.1400 37-47 % Low HCT 34.4 LAB L100.1500 81-99 fL Low MCV 80.9 LAB L100.1600 27.0-32.0 pg Low MCH 26.6 LAB L100.1700 32-36 g/gl Normal MCHC 32.8 LAB L100.1810 11.6-14.6 % High RDW CV 16.7 LAB L100.1820 35.1-43.9 fl High RDW SD 49.0 LAB L100.1900 150-450 K/mm3 Normal PLT 300 LAB L100.2000 6.2-12.0 fl Normal MPV 11.3 LAB L100.2100 47-70 % High NEUT% 86.1 LAB L100.2200 19-41 % Low LY% 10.1 LAB L100.2300 0-10 % Normal MONO% 3.2 LAB L100.2400 0-5 % Normal EO% 0.0 LAB L100.2500 0-1 % Normal BASO% 0.1 LAB L100.2550 0.0-0.9 % Normal IM GRAN % 0.500 Result Comment: IG% - Immature Granulocytes (promyelocytes, myelocytes and metamyelocytes) > 1% indicates that a LEFT SHIFT is Present. LAB L100.2620 2.0-7.7 X10 3/uL High Absolute Neut 11.4 LAB L100.2720 0.83-4.51 X10 3/ul Normal Absolute Lymph 1.34 Performed By: #### L100.0100 #### [facility] [address] [place], [address] BASIC METABOLIC Collected: 11/23/2017 Status: F Source: [place] PROFILE ([facility]) 5:00 AM [facility] REPOSITORY TYPE CODE TESTS RESULT OUT OF RANGE REFERENCE UNITS LAB L501.0100 74-106 mg/dL High GLU 239 Result Comment: Glucose result greater than or equal to 200 mg/dL suggests DIABETES MELLITUS per A.D.A. criteria. Please note revised GLUCOSE reference range effective 2017. LAB L501.1000 7-18 mg/dL High BUN 29 LAB L501.1100 0.55-1.02 mg/dL Normal CREAT,SERUM 0.80 Result Comment: The validity of the calculated GFR AND GFRAA in patients over 70 years has not been determined. Clinical correlation is essential. LAB L501.1110 >60 mL/min Normal EST GFR 78 Result Comment: Non- GFR Calc LAB L501.1115 >60 mL/min Normal EST GFR - AA 94 Result Comment: GFR Calc LAB L501.1255 ml/min Normal Estimated CRCL 55.02 LAB L501.1300 10-20 RATIO High BUN/CRE 36.4 LAB L501.2200 8.5-10 mg/dL Normal .1 CA 9.1 LAB L501.5300 136-14 mmol/L Low 5 NA 135 LAB L501.5600 3.5-5. mmol/L Normal 1 K 4.9 LAB L501.5900 98-107 mmol/L Normal CL 100 LAB L501.6100 21.0-3 mmol/L Normal 2.0 CO2 25.0 LAB L501.6200 5-15 Normal GAP 10 Performed By: #### L500.2500 #### [facility] [address] [place], [address] HEMOGLOBIN A1C Collected: 11/23/2017 Status: F Source: [place] 5:00 AM [facility] REPOSITORY TYPE CODE TESTS RESULT OUT OF RANGE REFERENCE UNITS LAB L501.9985 4.2-6.3 % High HGB A1C 9.4 Performed By: #### L501.9985 #### [facility] [address] [place], [address] BEDSIDE GLUCOSE Collected: 11/22/2017 Status: F Source: [place] 10:28 PM [facility] REPOSITORY TYPE CODE TESTS RESULT OUT OF REFERENCE UNITS RANGE LAB L501.080 70-110 mg/dL High alert BEDSIDE GLU 460 Result Comment: MANAGEMENT OF PATIENT CARE PER NURSING PROTOCOL Performed By: #### L501.080 #### [facility] Point of Care [address] [place] [address] BEDSIDE GLUCOSE Collected: 11/22/2017 Status: F Source: [place] 4:12 PM [facility] REPOSITORY TYPE CODE TESTS RESULT OUT OF REFERENCE UNITS RANGE LAB L501.080 70-110 mg/dL High BEDSIDE GLU 311 Result Comment: MANAGEMENT OF PATIENT CARE PER NURSING PROTOCOL Performed By: #### L501.080 #### [facility] Point of Care [address] [place] [address] BEDSIDE GLUCOSE Collected: 11/22/2017 Status: F Source: [place] 11:31 AM [facility] REPOSITORY TYPE CODE TESTS RESULT OUT OF REFERENCE UNITS RANGE LAB L501.080 70-110 mg/dL High BEDSIDE GLU 432 Result Comment: MANAGEMENT OF PATIENT CARE PER NURSING PROTOCOL Performed By: #### L501.080 #### [facility] Point of Care [address] [place] [address] GLUCOSE Collected: 11/22/2017 Status: F Source: [place] 10:43 AM [facility] REPOSITORY Order Comment: Comments: stat lab backup for one touch of 460 TYPE CODE TESTS RESULT OUT OF RANGE REFERENCE UNITS LAB L501.0100 74-106 mg/dL High alert GLU 455 Result Comment: Critical Result(s) Called at: 23:08:58 11/22/2017 by: Margarita ROSE Glucose result greater than or equal to 200 mg/dL suggests DIABETES MELLITUS per A.D.A. criteria. Please note revised GLUCOSE reference range effective 2017. Performed By: #### L501.0100 #### [facility] [address] [place], [place], [address] BEDSIDE GLUCOSE Collected: 11/22/2017 Status: F Source: [place] 7:55 AM [facility] REPOSITORY TYPE CODE TESTS RESULT OUT OF REFERENCE UNITS RANGE LAB L501.080 70-110 mg/dL High BEDSIDE GLU 424 Result Comment: MANAGEMENT OF PATIENT CARE PER NURSING PROTOCOL Performed By: #### L501.080 #### [facility] Point of Care [address] [place] [address] CBC W/DIFF, AUTOMATED Collected: 11/22/2017 Status: F Source: [place] 5:35 AM [facility] REPOSITORY TYPE CODE TESTS RESULT OUT OF RANGE REFERENCE UNITS LAB L100.1000 4.4-11.0 K/mm3 High WBC 14.2 LAB L100.1200 4.2-5.4 M/mm3 Low RBC 4.01 LAB L100.1300 12.0-15.0 g/dl Low HGB 10.8 LAB L100.1400 37-47 % Low HCT 32.8 LAB L100.1500 81-99 fL Normal MCV 81.8 LAB L100.1600 27.0-32.0 pg Low MCH 26.9 LAB L100.1700 32-36 g/gl Normal MCHC 32.9 LAB L100.1810 11.6-14.6 % High RDW CV 17.1 LAB L100.1820 35.1-43.9 fl High RDW SD 50.5 LAB L100.1900 150-450 K/mm3 Normal PLT 283 LAB L100.2000 6.2-12.0 fl Normal MPV 11.3 LAB L100.2100 47-70 % High NEUT% 88.6 LAB L100.2200 19-41 % Low LY% 9.0 LAB L100.2300 0-10 % Normal MONO% 2.0 LAB L100.2400 0-5 % Normal EO% 0.0 LAB L100.2500 0-1 % Normal BASO% 0.0 LAB L100.2550 0.0-0.9 % Normal IM GRAN % 0.400 Result Comment: IG% - Immature Granulocytes (promyelocytes, myelocytes and metamyelocytes) > 1% indicates that a LEFT SHIFT is Present. LAB L100.2620 2.0-7.7 X10 3/uL High Absolute Neut 12.6 LAB L100.2720 0.83-4.51 X10 3/ul Normal Absolute Lymph 1.28 Performed By: #### L100.0100 #### [facility] [address] [place], [address] BASIC METABOLIC Collected: 11/22/2017 Status: F Source: [place] PROFILE ([facility]) 5:35 AM [facility] REPOSITORY TYPE CODE TESTS RESULT OUT OF RANGE REFERENCE UNITS LAB L501.0100 74-106 mg/dL High GLU 400 Result Comment: Glucose result greater than or equal to 200 mg/dL suggests DIABETES MELLITUS per A.D.A. criteria. Please note revised GLUCOSE reference range effective 2017. LAB L501.1000 7-18 mg/dL High BUN 30 LAB L501.1100 0.55-1.02 mg/dL Normal CREAT,SERUM 0.98 Result Comment: The validity of the calculated GFR AND GFRAA in patients over 70 years has not been determined. Clinical correlation is essential. LAB L501.1110 >60 mL/min Normal EST GFR 61 Result Comment: Non- GFR Calc LAB L501.1115 >60 mL/min Normal EST GFR - AA 74 Result Comment: GFR Calc LAB L501.1255 ml/min Normal Estimated CRCL 44.91 LAB L501.1300 10-20 RATIO High BUN/CRE 30.5 LAB L501.2200 8.5-10 mg/dL Normal .1 CA 8.9 LAB L501.5300 136-14 mmol/L Low 5 NA 131 LAB L501.5600 3.5-5. mmol/L Normal 1 K 4.8 LAB L501.5900 98-107 mmol/L Low CL 96 LAB L501.6100 21.0-3 mmol/L Normal 2.0 CO2 23.0 LAB L501.6200 5-15 Normal GAP 12 Performed By: #### L500.2500 #### [facility] [address] [facility], [address] BEDSIDE GLUCOSE Collected: 11/21/2017 Status: F Source: [place] 10:17 PM [facility] REPOSITORY TYPE CODE TESTS RESULT OUT OF REFERENCE UNITS RANGE LAB L501.080 70-110 mg/dL High BEDSIDE GLU 422 Result Comment: MANAGEMENT OF PATIENT CARE PER NURSING PROTOCOL Performed By: #### L501.080 #### [facility] Point of Care [address] [place] [address] MAGNESIUM Collected: 11/21/2017 Status: F Source: [place] 8:30 PM [facility] REPOSITORY TYPE CODE TESTS RESULT OUT OF RANGE REFERENCE UNITS LAB L501.5200 1.6-2.6 mg/dL Normal MG 1.8 Performed By: #### L501.5200 #### [facility] [address] [place], [address] BEDSIDE GLUCOSE Collected: 11/21/2017 Status: F Source: [place] 4:26 PM [facility] REPOSITORY TYPE CODE TESTS RESULT OUT OF REFERENCE UNITS RANGE LAB L501.080 70-110 mg/dL High BEDSIDE GLU 329 Result Comment: MANAGEMENT OF PATIENT CARE PER NURSING PROTOCOL Performed By: #### L501.080 #### [facility] Point of Care [address] [place] [address] BEDSIDE GLUCOSE Collected: 11/21/2017 Status: F Source: [place] 11:25 AM [facility] REPOSITORY TYPE CODE TESTS RESULT OUT OF REFERENCE UNITS RANGE LAB L501.080 70-110 mg/dL High BEDSIDE GLU 402 Result Comment: MANAGEMENT OF PATIENT CARE PER NURSING PROTOCOL Performed By: #### L501.080 #### [facility] Point of Care [address] [place], [place] [address] Observed: 11/21/2017 Status: F Source: [place] RESPIRATORY PANEL 7:18 AM [facility] MOLECULAR REPOSITORY RP PANEL ADENOVIRUS Not Detected HUMAN METAPHNEUMO Not Detected INFLUENZA A Not Detected INFLUENZA A (SUBTYPE H1) Not Detected INFLUENZA A (SUBTYPE H3) Not Detected INFLUENZA B Not Detected PARAINFLUENZA 1 Not Detected PARAINFLUENZA 2 Not Detected PARAINFLUENZA 3 Not Detected PARAINFLUENZA 4 Not Detected RHINOVIRUS Not Detected RSV A Not Detected RSV B Not Detected NAAT METHOD Testing was performed using nucleic acid amplification Performed By: #### M100.638 #### [facility] [address] [facility] [id number] BASIC METABOLIC Collected: 11/21/2017 Status: F Source: [place] PROFILE ([facility]) 7:15 AM [facility] REPOSITORY TYPE CODE TESTS RESULT OUT OF RANGE REFERENCE UNITS LAB L501.0100 74-106 mg/dL High GLU 319 Result Comment: Glucose result greater than or equal to 200 mg/dL suggests DIABETES MELLITUS per A.D.A. criteria. Please note revised GLUCOSE reference range effective 2017. LAB L501.1000 7-18 mg/dL High BUN 22 LAB L501.1100 0.55-1.02 mg/dL Normal CREAT,SERUM 1.00 Result Comment: The validity of the calculated GFR AND GFRAA in patients over 70 years has not been determined. Clinical correlation is essential. LAB L501.1110 >60 mL/min Normal EST GFR 60 Result Comment: Non- GFR Calc LAB L501.1115 >60 mL/min Normal EST GFR - AA 72 Result Comment: GFR Calc LAB L501.1255 ml/min Normal Estimated CRCL 44.02 LAB L501.1300 10-20 RATIO High BUN/CRE 22.0 LAB L501.2200 8.5-10 mg/dL Normal .1 CA 9.1 LAB L501.5300 136-14 mmol/L Low 5 NA 132 LAB L501.5600 3.5-5. mmol/L Normal 1 K 5.1 LAB L501.5900 98-107 mmol/L Low CL 97 LAB L501.6100 21.0-3 mmol/L Normal 2.0 CO2 24.0 LAB L501.6200 5-15 Normal GAP 11 Performed By: #### L500.2500 #### [facility] [address] [place], [place], [address] CBC W/DIFF, AUTOMATED Collected: 11/21/2017 Status: F Source: [place] 7:15 AM [facility] REPOSITORY TYPE CODE TESTS RESULT OUT OF RANGE REFERENCE UNITS LAB L100.1000 4.4-11.0 K/mm3 High WBC 13.1 LAB L100.1200 4.2-5.4 M/mm3 Normal RBC 4.20 LAB L100.1300 12.0-15.0 g/dl Low HGB 11.3 LAB L100.1400 37-47 % Low HCT 34.6 LAB L100.1500 81-99 fL Normal MCV 82.4 LAB L100.1600 27.0-32.0 pg Low MCH 26.9 LAB L100.1700 32-36 g/gl Normal MCHC 32.7 LAB L100.1810 11.6-14.6 % High RDW CV 17.0 LAB L100.1820 35.1-43.9 fl High RDW SD 51.4 LAB L100.1900 150-450 K/mm3 Normal PLT 301 LAB L100.2000 6.2-12.0 fl Normal MPV 11.2 LAB L100.2100 47-70 % High NEUT% 86.3 LAB L100.2200 19-41 % Low LY% 12.5 LAB L100.2300 0-10 % Normal MONO% 0.8 LAB L100.2400 0-5 % Normal EO% 0.0 LAB L100.2500 0-1 % Normal BASO% 0.1 LAB L100.2550 0.0-0.9 % Normal IM GRAN % 0.300 Result Comment: IG% - Immature Granulocytes (promyelocytes, myelocytes and metamyelocytes) > 1% indicates that a LEFT SHIFT is Present. LAB L100.2620 2.0-7.7 X10 3/uL High Absolute Neut 11.3 LAB L100.2720 0.83-4.51 X10 3/ul Normal Absolute Lymph 1.64 Performed By: #### L100.0100 #### [facility] [address] [place], [address] BEDSIDE GLUCOSE Collected: 11/21/2017 Status: F Source: [place] 6:46 AM [facility] REPOSITORY TYPE CODE TESTS RESULT OUT OF REFERENCE UNITS RANGE LAB L501.080 70-110 mg/dL High BEDSIDE GLU 315 Result Comment: MANAGEMENT OF PATIENT CARE PER NURSING PROTOCOL Performed By: #### L501.080 #### [facility] Point of Care [address] [place] [address] BEDSIDE GLUCOSE Collected: 11/21/2017 Status: F Source: [place] 3:03 AM [facility] REPOSITORY TYPE CODE TESTS RESULT OUT OF REFERENCE UNITS RANGE LAB L501.080 70-110 mg/dL High BEDSIDE GLU 329 Result Comment: MANAGEMENT OF PATIENT CARE PER NURSING PROTOCOL Performed By: #### L501.080 #### [facility] Point of Care [address] [place] [address] BEDSIDE GLUCOSE Collected: 11/20/2017 Status: F Source: [place] 10:08 PM [facility] REPOSITORY TYPE CODE TESTS RESULT OUT OF REFERENCE UNITS RANGE LAB L501.080 70-110 mg/dL High BEDSIDE GLU 427 Result Comment: MANAGEMENT OF PATIENT CARE PER NURSING PROTOCOL Performed By: #### L501.080 #### [facility] Point of Care [address] [place] [address] BEDSIDE GLUCOSE Collected: 11/20/2017 Status: F Source: [place] 4:15 PM [facility] REPOSITORY TYPE CODE TESTS RESULT OUT OF REFERENCE UNITS RANGE LAB L501.080 70-110 mg/dL High BEDSIDE GLU 284 Result Comment: MANAGEMENT OF PATIENT CARE PER NURSING PROTOCOL Performed By: #### L501.080 #### [facility] Point of Care [address] [place] [address] EMERGENCY DEPARTMENT Observed: 11/20/2017 Status: F Source: [place] SUMMARY 4:09 PM [facility] REPOSITORY [facility] Medical Records Department [address] [place] [address] Emergency Department Summary 11/20/17 1213 MR#: [id number] Acct: [id number] Name: DARYA LARKIN Rep #: [id number] : 1955 62 From: Moses Coronado MD PCP: Camden Burger Status: ADM IN - ER Visit Summary Date of Service: 11/20/17 Chief Complaint: Shortness of breath and wheezing History of Present Illness: The patient is a 62 F history of COPD, A. fib, insulin-dependent diabetes. Patient is on Xarelto for anticoagulation. 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 Camden Mccormick. They felt she was having a COPD flare and centered on the ER for evaluation. She states she is coughing but is nonproductive. She denies any hemoptysis. She denies any chest pain. No fever. Physical Examination: Older female vital signs stable. Pulse ox however is hypoxic at 89%. On room air. She does have accelerated respiratory rate. HEENT exam unremarkable. Neck nontender. No lymphadenopathy. No JVD. Lungs prolonged expiratory phase bilaterally. Inspiratory and expiratory wheezing throughout. Poor air movement. Heart A. fib rate about 80. No murmur. Abdomen soft nontender. Normal bowel sounds no peritoneal signs. She is moving all 4 extremities. They are neurovascularly intact. Calves are nontender. No cords. She has trace edema on both sides. She states this is her baseline. Neurologically she is awake and alert with no focal motor deficits. Test Results: Chest x-ray shows no acute process. No pneumonia. Read both by myself and radiologist. She does have some inverted T waves and ST subtle ST depression in V3 through V5. This is slightly changed from August of this year. White count of 14.4 she often has a high white count. Hemoglobin 11 which is her baseline anemia. Electrolytes unremarkable sodium 132. Normal creatinine and gap. Troponin normal. BNP normal at 19. Emergency Department Course and Treatment: Pt with dyspnea which may be secondary to his COPD flare. Will be treated with Solu-Medrol IV along with DuoNeb and albuterol aerosols. Treatment Plan: Patient is doing better after aerosol treatments. However she still hypoxic on oxygen. Typically she is not on oxygen. She still is wheezing. I do think she would benefit from hospitalization and further respiratory therapy and aerosols. Disposition: Admission Impression: Acute dyspnea secondary to exacerbation of underlying COPD Hypoxia Chronic anemia Chronic A. fib anticoagulated on Xarelto This note was generated with XTWIPation software. It may contain incorrect words, spelling, and punctuation that were not noted in review of the chart prior to signing ED Disposition - Plan for ED Patient: Chief Complaint: Shortness of Breath Referrals: Camden Burger [Primary Care Provider] - What to do if you have Problems For any increased pain, shortness of breath, bleeding, nausea or vomiting, chest pain, or any unexpected problems, contact your Primary Care Provider. Call [facility] ([phone]) or report to the closest Emergency Room. Call 911 if necessary. 11/20/17 2048 <Electronically signed by Moses Coronado MD> Date Moses Coronado MD Cosigner Signature (If Indicated): Date CC: Cmaden Burger; Camden Burger MD HISTORY AND PHYSICAL Observed: 11/20/2017 Status: F Source: [place] EXAM 3:11 PM [facility] REPOSITORY [facility] Medical Records Department [address] [place] [address] History and Physical 11/20/17 1450 MR#: [id number] Acct: [id number] Name: DARYA LARKIN Rep #: [id number] : 1955 62 From: Brian SORIA PCP: Camden Burger Status: ADM IN Y Location: MS3 [id number] <Brian Hinojosa - Last Filed: 11/20/17 14:50> Problem List (1) Acute exacerbation of chronic obstructive pulmonary disease (COPD) Status: Acute (2) HTN (hypertension) Status: Chronic (3) Chronic atrial fibrillation Status: Chronic (4) Hyperlipemia Status: Chronic Comment: ECHO in June of 2017 showed a 75% EF (5) Type 2 diabetes mellitus Status: Chronic Comment: uncontrolled (6) GERD (gastroesophageal reflux disease) Status: Chronic (7) Morbid obesity with BMI of 50.0-59.9, adult Status: Chronic History of Present Illness Date of Admission: 11/20/17 Chief Complaint: SOB The patient is a 62 year old F past medical history of COPD, diabetes type 2, chronic atrial fibrillation, former heavy smoker, morbid obesity, hypertension, GERD, anxiety who presents to the emergency room from 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 She lives in assisted living and reports that she started feeling more wheezy, coughing more, nonproductive, and has become severely short of breath. She did not look well at the office and was sent over by Dr. Mccormick. She has not recently been on steroids. She denies sick contacts. She does report a sore throat but denies sinus congestion, postnasal drip, fevers or chills. She denies smoking in the last 2 months. She did not use any oxygen at all normally. In the ER she was hypoxic on room air at 80%. She improved with 2 L of oxygen via nasal cannula. She does not have a residential therapist. [] Past Medical History Past Medical History (Chronic Problems): Chronic Problems (Last Reviewed 11/20/17 @ 11:22 by Yisel Forman) Morbid obesity with BMI of 50.0-59.9, adult (Chronic) Tobacco dependence due to cigarettes (Chronic) Non-compliance (Chronic) Microcytic anemia (Chronic) Hypersomnia (Chronic) Anemia (Chronic) Hypomagnesemia (Chronic) HTN (hypertension) (Chronic) Morbid obesity with BMI of 40.0-44.9, adult (Chronic) Chronic pain (Chronic) Chronic atrial fibrillation (Chronic) Chronic hypoxemic respiratory failure (Chronic) non-compliant with oxygen Hyperlipemia (Chronic) ECHO in June of 2017 showed a 75% EF Type 2 diabetes mellitus (Chronic) uncontrolled GERD (gastroesophageal reflux disease) (Chronic) Anxiety (Chronic) Insomnia (Chronic) Medical History: Medical History (Last Reviewed 11/20/17 @ 11:22 by Yisel Forman) Hypersomnia (Chronic) G47.10 Chest pain (Acute) R07.9 Anemia (Chronic) D64.9 Hypomagnesemia (Chronic) E83.42 HTN (hypertension) (Chronic) I10 Morbid obesity with BMI of 40.0-44.9, adult (Chronic) E66.01, Z68.41 COPD (chronic obstructive pulmonary disease) (Acute) J44.9 Chronic pain (Chronic) G89.29 Chronic atrial fibrillation (Chronic) I48.2 Chronic hypoxemic respiratory failure (Chronic) J96.11 non-compliant with oxygen Hyperlipemia (Chronic) E78.5 ECHO in June of 2017 showed a 75% EF Type 2 diabetes mellitus (Chronic) E11.9 uncontrolled GERD (gastroesophageal reflux disease) (Chronic) K21.9 Anxiety (Chronic) F41.9 Insomnia (Chronic) G47.00 Osteoporosis M81.0 Cardiomyopathy (Ruled-out) I42.9 EF in Oct 2015 45-50 Left ankle pain (Inactive) M25.572 Non-compliance (Inactive) Z91.19 withn follow up with pulmonary Allergies venom-honey bee [bee venom (honey bee)] Allergy (Verified 11/20/17 11:56) Swelling levofloxacin [From Levaquin] Adverse Reaction (Verified 11/20/17 11:56) Nausea oxycodone HCl [From Percocet] Adverse Reaction (Verified 11/20/17 11:56) Nausea Penicillins Adverse Reaction (Verified 11/20/17 11:56) Nausea/Vom/Diarrhea Home Medications: Ambulatory Orders Medication Instructions Recorded Surgical History: Surgical History (Last Reviewed 11/20/17 @ 11:22 by Yisel Forman) Cataract extraction status Z98.49 History of lumbar surgery Z98.890 History of tonsillectomy and adenoidectomy Z98.890 History of total hysterectomy Z90.710 Surgical History: hysterectomy, tonsillectomy, - - Lumbar surgery. Psychiatric History: Anxiety, Depression COURTROOM REPORTER History: No pertinent COURTROOM REPORTER history Smoking Status: Current every day smoker - *Family History Maternal Family History: Family History (Last Reviewed 11/20/17 @ 11:22 by Yisel Forman) Sister Arthritis Diabetes Father Cancer Aunt Diabetes History Items: - - She reports that she is unaware of what her mother's health history was like Paternal Family History: Family History (Last Reviewed 11/20/17 @ 11:22 by Yisel Forman) Sister Arthritis Diabetes Father Cancer Aunt Diabetes History Items: Cancer, - - father with throat cancer. Sibling Family History: Family History (Last Reviewed 11/20/17 @ 11:22 by Yisel Forman) Sister Arthritis Diabetes Father Cancer Aunt Diabetes History Items: Asthma, COPD, Hypertension Review of Systems Constitutional: Denies: Chills, Fever, Weight Change HEENT: Denies: Head Aches, Sinus Congestion, Sinus Drainage Cardiovascular: Denies: Chest Pain, Palpitations Respiratory: Reports: Cough, Shortness of Breath, Shortness of breath at rest, Shortness of breath upon exertion, Wheezing. Denies: Sputum production Gastrointestinal: Reports: Diarrhea. Denies: Abdominal Pain, Nausea, Vomiting Genitourinary: Denies: Dysuria Musculoskeletal: Denies: Joint Pain, Joint Tenderness Skin: Denies: Rash, Wounds Neurological: Denies: Numbness, Tingling, Focal weakness Psychiatric: Denies: Anxiety, Depression, Homicidal Ideations, Suicidal Ideations Hematologic/ Lymphatic: Denies: Easy Bruising, Easy Bleeding VTE Information - Inpt Only VTE Present on Admission: No VTE Mechan Device Prophylaxis: SCD's VTE Pharm Prophylaxis ordered?: Yes - Physical Exam General: Alert, Oriented x3, Cooperative HEENT: Atraumatic, PERRLA, EOMI, Normocephalic Neck: Supple, No JVD, Negative Carotid Bruits Lungs: Diminished, Wheezes Cardiovascular: Regular rate, No murmurs Abdomen: Bowel Sounds Present, Soft, Non Tender Extremities: Capillary Refill Less than 3 Seconds, Edema - 1+ pitting edema bilateral lower extremities Skin: No rashes, No breakdown Musculoskeletal: No Tenderness to Palpation of Joints or Extremities Neurological: Cranial nerves II-XII grossly intact Psych/Mental Status: Normal Affect, Appropriate, Alert and oriented to time, place, person, mood and affect Vital Signs Temp Pulse Resp BP Pulse Ox 97.6 F L 72 20 H 102/60 94 11/20/17 11:52 11/20/17 14:31 11/20/17 14:31 11/20/17 14:31 11/20/17 14:31 Oxygen Flow Rate (L/min) 2 Oxygen Delivery Method Nasal Cannula Weight: 270 lb Body Mass Index (BMI) 51.0 Finger Stick Blood Glucose 364 Laboratory Tests Past 24 Hrs Assessment/Plan All Active Problems (Last Reviewed 11/20/17 @ 11:22 by Yisel Forman) Abdominal pain (Acute) ABDULLAHI (obstructive sleep apnea) (Acute) Acute exacerbation of chronic obstructive pulmonary disease (COPD) (Acute) Syncope (Acute) Chest pain (Acute) Chest pain (Acute) COPD (chronic obstructive pulmonary disease) (Acute) Acute and chronic respiratory failure with hypoxia (Resolved) Acute bronchitis due to human metapneumovirus (Resolved) Atrial fibrillation with RVR (Resolved) COPD with acute exacerbation (Resolved) Gram-negative pneumonia (Resolved) Cardiomyopathy (Ruled-out) 1. Acute COPD exacerbation-hypoxic on presentation with 80% pulse ox improved with 2 L/min nasal cannula. Continue Solu-Medrol and aerosol therapy. Incentive spirometer. Patient does have leukocytosis but she is not appear to have any other indications of bacterial pathology. Chest x-ray is negative. No prior oxygen use at home. 2. Mild hyponatremia-this appears to be a chronic issue. 3. Chronic atrial fibrillation-on Xarelto, rate controlled, continue Cardizem, digoxin, propranolol 4. Type 2 diabetes with morbid obesity-continue insulin plus sliding scale, titrate to response. Dietitian consult. 5. Hypertension-stable 6. Hyperlipidemia-atorvastatin 7. GERD-Pepcid twice daily 8. Nicotine abuse-reportedly quit 2 months ago 9. Insomnia and anxiety-continue home meds DVT prophylaxis: On Xarelto DC planning: From assisted living, PT OT. This patient was seen by Brian Hinojosa PA-C under the supervision of Doctor Karimi. <All Karimi - Last Filed: 11/20/17 15:10> Problem List (1) COPD (chronic obstructive pulmonary disease) Status: Acute Qualifiers: COPD type: COPD with acute exacerbation Qualified Code(s): J44.1 - Chronic obstructive pulmonary disease with (acute) exacerbation History of Present Illness The patient is a 62 year old F presents with a 4-5 days history of increasing shortness of breath. 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 In the ED, patient was hypoxic at 80%. Placed on oxygen and pulse ox improved. In the ER, she received Solumedrol and BDs. This is similiar to prior episodes of COPD exacerbation. Currently breathing better, but still short of breath after oxygen and treatment.[] Past Medical History Medical History: Medical History (Last Reviewed 11/20/17 @ 15:04 by All Karimi DO) Hypersomnia (Chronic) G47.10 Chest pain (Acute) R07.9 Anemia (Chronic) D64.9 Hypomagnesemia (Chronic) E83.42 HTN (hypertension) (Chronic) I10 Morbid obesity with BMI of 40.0-44.9, adult (Chronic) E66.01, Z68.41 COPD (chronic obstructive pulmonary disease) (Acute) J44.9 Chronic pain (Chronic) G89.29 Chronic atrial fibrillation (Chronic) I48.2 Chronic hypoxemic respiratory failure (Chronic) J96.11 non-compliant with oxygen Hyperlipemia (Chronic) E78.5 ECHO in June of 2017 showed a 75% EF Type 2 diabetes mellitus (Chronic) E11.9 uncontrolled GERD (gastroesophageal reflux disease) (Chronic) K21.9 Anxiety (Chronic) F41.9 Insomnia (Chronic) G47.00 Osteoporosis M81.0 Cardiomyopathy (Ruled-out) I42.9 EF in Oct 2015 45-50 Left ankle pain (Inactive) M25.572 Non-compliance (Inactive) Z91.19 withn follow up with pulmonary Allergies venom-honey bee [bee venom (honey bee)] Allergy (Verified 11/20/17 11:56) Swelling levofloxacin [From Levaquin] Adverse Reaction (Verified 11/20/17 11:56) Nausea oxycodone HCl [From Percocet] Adverse Reaction (Verified 11/20/17 11:56) Nausea Penicillins Adverse Reaction (Verified 11/20/17 11:56) Nausea/Vom/Diarrhea Surgical History: Surgical History (Last Reviewed 11/20/17 @ 15:05 by All Karimi DO) Cataract extraction status Z98.49 History of lumbar surgery Z98.890 History of tonsillectomy and adenoidectomy Z98.890 History of total hysterectomy Z90.710 Smoking Status: Former smoker Tobacco Use: Non-smoker Alcohol: None Drugs: None - *Family History Maternal Family History: Family History (Last Reviewed 11/20/17 @ 15:05 by All Karimi DO) Sister Arthritis Diabetes Father Cancer Aunt Diabetes Paternal Family History: Family History (Last Reviewed 11/20/17 @ 15:05 by All Karimi DO) Sister Arthritis Diabetes Father Cancer Aunt Diabetes Sibling Family History: Family History (Last Reviewed 11/20/17 @ 15:05 by All Karimi DO) Sister Arthritis Diabetes Father Cancer Aunt Diabetes Review of Systems Constitutional: Denies: Chills, Fever, Weight Change Eyes: Denies: Blurred vision, Double vision HEENT: Denies: Head Aches, Sinus Congestion, Sinus Drainage Cardiovascular: Denies: Chest Pain, Palpitations Respiratory: Reports: Cough, Shortness of Breath, Shortness of breath at rest, Shortness of breath upon exertion, Wheezing. Denies: Sputum production Gastrointestinal: Reports: Abdominal Pain, Diarrhea. Denies: Nausea, Vomiting Genitourinary: Denies: Dysuria Musculoskeletal: Denies: Joint Pain, Joint Tenderness Skin: Denies: Pruritis, Wounds Neurological: Denies: Focal weakness, Numbness Psychiatric: Denies: Anxiety, Depression, Homicidal Ideations, Suicidal Ideations Hematologic/ Lymphatic: Denies: Easy Bruising, Easy Bleeding VTE Information - Inpt Only VTE Present on Admission: No VTE Pharm Prophylaxis ordered?: Yes - Physical Exam General: Alert, Cooperative, - - Appears much older than stated age HEENT: Atraumatic, Normocephalic, - - Telangiectasias on her cheeks Oral: Moist Mucosa, No Gingival or Mucosal Lesions/ Ulcerations Neck: No Nodes, Thyroid Normal Size and Texture Lungs: Diminished, Wheezes Cardiovascular: Regular rate, Regular Rhythm, Normal S1, Normal S2, No murmurs Abdomen: Bowel Sounds Present, Non Tender Extremities: No Calf Tenderness, Edema Skin: - - Erythema with telangiectasias of both cheeks. Neurological: Motor Exam 5/5 strength throughout, Muscle tone normal Psych/Mental Status: Normal Affect, Appropriate Vital Signs Temp Pulse Resp BP Pulse Ox 36.4 C L 72 20 H 102/60 94 11/20/17 11:52 11/20/17 14:31 11/20/17 14:31 11/20/17 14:31 11/20/17 14:31 Oxygen Flow Rate (L/min) 2 Oxygen Delivery Method Nasal Cannula Weight: 122.47 kg Body Mass Index (BMI) 51.0 Finger Stick Blood Glucose 364 Laboratory Tests Past 24 Hrs EKG reviewed and showed atrial fibrillation, rate controlled, no acute process Chest x-ray personally reviewed and showed hyperinflated airways flattening of the diaphragms. No pulmonary edema nor infiltrate. Assessment/Plan 1. Acute exacerbation of COPD * Continue with bronchodilators and steroids * Consider pulmonary consultation if no improvement 2. Acute hypoxic respiratory failure * Secondary to above * Wean oxygen as tolerated * Check an amatory pulse ox prior to discharge 3. Abdominal pain * Has been ongoing since admission per the patient * Concern at that time was for ischemic colitis which is still a concern at this time. * Follow-up with gastroenterology as outpatient 4. Right knee effusion * Patient was to follow-up with Dr. Montenegro as outpatient last time but the patient has not at this point. Patient stated that she has not gotten around to make the appointment * As mentioned previously, patient does require an arthrocentesis she will need to be off of her Xarelto for 48 hours before and * No acute indication for orthopedics involvement at this time. No concern for septic arthritis 5. Chronic atrial fibrillation * Stable * Continue with Xarelto, Cardizem, digoxin and propranolol * Code Visit Inpatient E AND M: [id number] Init Hosp L3 11/20/17 1500 <Electronically signed by Brian SORIA> Date Brian SORIA 11/20/17 1511<Electronically signed by All Karimi DO> Cosigner Signature: Date (if applicable) All Karimi DO CC: YANG Hinojosa; Camden Burger; All Karimi DO; Camden Mccormick MD; Camden Burger MD Signed CBC W/DIFF, AUTOMATED Collected: 11/20/2017 Status: F Source: [place] 12:28 PM [facility] REPOSITORY TYPE CODE TESTS RESULT OUT OF RANGE REFERENCE UNITS LAB L100.1000 4.4-11.0 K/mm3 High WBC 14.4 LAB L100.1200 4.2-5.4 M/mm3 Normal RBC 4.46 LAB L100.1300 12.0-15.0 g/dl Low HGB 11.8 LAB L100.1400 37-47 % Low HCT 36.9 LAB L100.1500 81-99 fL Normal MCV 82.7 LAB L100.1600 27.0-32.0 pg Low MCH 26.5 LAB L100.1700 32-36 g/gl Normal MCHC 32.0 LAB L100.1810 11.6-14.6 % High RDW CV 17.4 LAB L100.1820 35.1-43.9 fl High RDW SD 52.7 LAB L100.1900 150-450 K/mm3 Normal PLT 331 LAB L100.2000 6.2-12.0 fl Normal MPV 10.4 LAB L100.2100 47-70 % Normal NEUT% 67.2 LAB L100.2200 19-41 % Normal LY% 21.1 LAB L100.2300 0-10 % Normal MONO% 8.1 LAB L100.2400 0-5 % Normal EO% 3.1 LAB L100.2500 0-1 % Normal BASO% 0.3 LAB L100.2550 0.0-0.9 % Normal IM GRAN % 0.200 Result Comment: IG% - Immature Granulocytes (promyelocytes, myelocytes and metamyelocytes) > 1% indicates that a LEFT SHIFT is Present. LAB L100.2620 2.0-7.7 X10 3/uL High Absolute Neut 9.7 LAB L100.2720 0.83-4.51 X10 3/ul Normal Absolute Lymph 3.03 Performed By: #### L100.0100 #### [facility] [address] [place], [place], [id number] BASIC METABOLIC Collected: 11/20/2017 Status: F Source: [place] PROFILE (BMP) 12:28 PM [facility] REPOSITORY TYPE CODE TESTS RESULT OUT OF RANGE REFERENCE UNITS LAB L501.0100 74-106 mg/dL High GLU 238 Result Comment: Glucose result greater than or equal to 200 mg/dL suggests DIABETES MELLITUS per A.D.A. criteria. Please note revised GLUCOSE reference range effective 2017. LAB L501.1000 7-18 mg/dL High BUN 23 LAB L501.1100 0.55-1.02 mg/dL Normal CREAT,SERUM 0.92 Result Comment: The validity of the calculated GFR AND GFRAA in patients over 70 years has not been determined. Clinical correlation is essential. LAB L501.1110 >60 mL/min Normal EST GFR 66 Result Comment: Non- GFR Calc LAB L501.1115 >60 mL/min Normal EST GFR - AA 80 Result Comment: GFR Calc LAB L501.1255 ml/min Normal Estimated CRCL 47.84 LAB L501.1300 10-20 RATIO High BUN/CRE 25.0 LAB L501.2200 8.5-10 mg/dL Normal .1 CA 9.1 LAB L501.5300 136-14 mmol/L Low 5 NA 132 LAB L501.5600 3.5-5. mmol/L Normal 1 K 4.9 LAB L501.5900 98-107 mmol/L Normal CL 99 LAB L501.6100 21.0-3 mmol/L Normal 2.0 CO2 27.0 LAB L501.6200 5-15 Normal GAP 6 Performed By: #### L500.2500, L501.4010 #### [facility] [address] [place], [address] TROPONIN-I Collected: 11/20/2017 Status: F Source: [place] 12:28 PM [facility] REPOSITORY TYPE CODE TESTS RESULT OUT OF RANGE REFERENCE UNITS LAB L501.4010 <0.045 ng/mL Normal < 0.015 TROPONIN-I Result Comment: TROPONIN-I EXPECTED VALUES <0.045 Negative 0.045 - 0.590 Consistent with Cardiac Damage > OR = 0.600 Critical Value Not every elevated troponin is indicative of KS. These values should be used with clinical judgement in examining the patient's clinical picture for diagnosis. To establish a diagnosis of KS versus myocardial injury, there must be a demonstrated rise and/or fall in the troponin values, in addition to ischemic symptoms, EKG changes, new regional wall motion abnormality, and/or angiographical evidence. PLEASE NOTE: REFERENCE RANGES EDITED 17 Performed By: #### L500.2500, L501.4010 #### [facility] [address] [place], [address] BNP,B-TYPE NATRIURETIC Collected: 11/20/2017 Status: F Source: [place] 12:28 PM [facility] REPOSITORY TYPE CODE TESTS RESULT OUT OF RANGE REFERENCE UNITS LAB L503.6620 0-100 pg/mL Normal B-TYPE 19.3 KATHERINE PEP Performed By: #### L503.6620 #### [facility] [address] [place], [address] CHEST 1 VIEW Observed: 11/20/2017 Status: F Source: [place] (PORTABLE) 12:06 PM [facility] REPOSITORY [facility] Services [address] [place] [address] Chest 1 View (Portable) MR#: [id number] Acct: [id number] Name: DARYA LARKIN Rep #: [id number] : 1955 F 62 From: Danny Hale MD PCP: Camden Burger Status: REG ER Study: Chest 1 View (Portable) Date of Exam: 11/20/17 Exam# [id number] Ordering Dr: Moses Coronado MD STUDY: X-RAY CHEST REASON FOR EXAM: Female, 62 years old. Wheezing. Coughing. Hypoxia TECHNIQUE: Single AP portable view of the chest. COMPARISON: November 01, 2017 FINDINGS: The lungs are clear and expanded. There is no demonstrated pleural abnormality. Normal size heart. Normal mediastinum and sangeeta. Normal visualized pulmonary arteries. Normal visualized aortic arch and descending thoracic aorta. Normal visualized thoracic spine. Normal visualized ribs, clavicles, and shoulders. There is no demonstrated abnormality of the visualized soft tissue structures of the upper abdomen. RAD/Chest 1 View (Portable) IMPRESSION: Normal x-ray examination of the chest. Electronically Signed: Danny Hale MD at 13:08 EDT , Service support , CC: Camden Burger; Moses Coronado MD Eyeglass Inspector: Signed CARDIOLOGY VISIT Observed: 11/20/2017 Status: F Source: [place] REPORT 11:58 AM [facility] REPOSITORY [facility] [place] [address] [facility] [place] [address] OFFICE VISIT Date of Service: 11/20/17 MR#: [id number] Acct: [id number] Name: DARYA LARKIN Rep #: [id number] : 1955 Provider: Camden Mccormick MD Age/Sex: 62/F Location: [facility] Status: Signed HPI HPI Details: DARYA LARKIN, is a 62 F who presents to the office today for outpatient cardiovascular follow-up based upon her previous cardiovascular consultation from 07/11/2017 with concerns of a possible syncopal event superimposed upon chronic/permanent atrial fibrillation, hyperlipidemia, hypertension, diabetes mellitus, COPD, and obesity. During that time she underwent noninvasive evaluation. She did not require additional invasive cardiovascular evaluation. She was to be released with a 30-day ambulatory event monitor to monitor her cardiac rate and rhythm for any correlation with her episode. Apparently this is not been completed due to a variety of logistical issues. She has been residing in the [facility] care facility. She has had no further syncopal events. She has not noticed her heart rate or rhythm. There is been no other concerning acute cardiovascular symptoms. Her main concern has been her underlying pulmonary status. She has been markedly short of breath and dyspneic. She notes this is been progressively getting worse and worse recently. She has audible rhonchi and inspiratory/expiratory wheezing. She states she feels that her inhalers are not helping. She notes she is to the point where she would normally be evaluated in the hospital for her respiratory status. Intake Vital Signs11/20/17 Height 5 ft 1 in 11/20/17 Weight: 270 lb 11/20/17 Body Mass Index (BMI) 51.0 11/20/17 Blood Pressure 108/70 Intake Visit Reasons: Follow up missed appt\PFM Allergies venom-honey bee [bee venom (honey bee)] Allergy (Verified 11/20/17 11:56) Swelling levofloxacin [From Levaquin] Adverse Reaction (Verified 11/20/17 11:56) Nausea oxycodone HCl [From Percocet] Adverse Reaction (Verified 11/20/17 11:56) Nausea Penicillins Adverse Reaction (Verified 11/20/17 11:56) Nausea/Vom/Diarrhea Medications Albuterol Aerosols [Ventolin Aerosols] 2.5 mg INHALATION Q2H PRN PRN 05/12/17 [History Confirmed 11/20/17] Atorvastatin Calcium [Lipitor] 40 mg PO QHS 05/12/17 [History Confirmed 11/20/17] Budesonide/Formoterol 160/4.5 [Symbicort 160/4.5 Mcg Inhaler (SP)] 2 puff INHALATION BID 05/12/17 [History Confirmed 11/20/17] Bupropion HCl [Bupropion HCl Sr] 150 mg PO BID 05/12/17 [History Confirmed 11/20/17] Buspirone HCl 10 mg PO TID 05/12/17 [History Confirmed 11/20/17] Digoxin 250 mcg PO DAILY 05/12/17 [History Confirmed 11/20/17] Diltiazem [Cardizem] 120 mg PO BID 05/12/17 [History Confirmed 11/20/17] Famotidine [Pepcid] 20 mg PO BID 05/12/17 [History Confirmed 11/20/17] Furosemide [Lasix] 40 mg PO BID 05/12/17 [History Confirmed 11/20/17] Glucagon,Human Recombinant [Glucagon Emergency Kit] 1 mg IM PRN PRN 05/12/17 [History Confirmed 11/20/17] Guaifenesin [Mucinex] 1,200 mg PO BID 05/12/17 [History Confirmed 11/20/17] Insulin Lispro [Humalog] 12 unit SQ TIDCM 05/12/17 [History Confirmed 11/20/17] Ipratropium/Albuterol Sulfate [Duoneb] 3 ml INHALATION Q4H.RT 05/12/17 [History Confirmed 11/20/17] Lisinopril [Prinivil] 5 mg PO DAILY 05/12/17 [History Confirmed 11/20/17] Propranolol HCl [Inderal (Beta Lou)] 10 mg PO BID 05/12/17 [History Confirmed 11/20/17] Sennosides/Docusate Sodium [Senna-Docusate Sodium Tablet] 2 tab PO DAILY PRN PRN 05/12/17 [History Confirmed 11/20/17] Hydrocodone Bitart/Apap 5-325 [[place] 5/325] 1 tab PO Q6H PRN PRN 08/11/17 [History Confirmed 11/20/17] Mag Hydrox/Al Hydrox/Simeth [Mylanta II] 30 ml PO Q6H PRN PRN 08/11/17 [History Confirmed 11/20/17] Polyethylene Glycol 3350 [Miralax] 17 gm PO DAILY 08/11/17 [History Confirmed 11/20/17] docusate sodium 100 mg capsule 100 mg PO QDAY 09/01/17 [History Confirmed 11/20/17] gabapentin 100 mg capsule 100 mg PO TID cap 09/01/17 [History Confirmed 11/20/17] Spironolactone [Aldactone] 25 mg PO BID 11/01/17 [History Confirmed 11/20/17] Benzonatate [Tessalon Perle] 100 mg PO TID PRN PRN 11/02/17 [History Confirmed 11/20/17] Insulin Lispro [Humalog] See Protocol 11/02/17 [History Confirmed 11/20/17] Nitroglycerin 0.4 mg SL X1 11/02/17 [History Confirmed 11/20/17] Insulin Glargine,Hum.rec.anlog [Lantus Solostar] 60 unit SQ QHS #0 11/03/17 [Rx Confirmed 11/20/17] Rivaroxaban [Xarelto] 20 mg PO DAILY #0 11/03/17 [Rx Confirmed 11/20/17] acetaminophen 325 mg capsule 650 mg PO Q6H PRN cap 11/20/17 [History Confirmed 11/20/17] PFSH Medical History Hypersomnia (Chronic) Chest pain (Acute) Anemia (Chronic) Hypomagnesemia (Chronic) HTN (hypertension) (Chronic) Morbid obesity with BMI of 40.0-44.9, adult (Chronic) COPD (chronic obstructive pulmonary disease) (Acute) Chronic pain (Chronic) Chronic atrial fibrillation (Chronic) Chronic hypoxemic respiratory failure (Chronic) Hyperlipemia (Chronic) Type 2 diabetes mellitus (Chronic) GERD (gastroesophageal reflux disease) (Chronic) Anxiety (Chronic) Insomnia (Chronic) Osteoporosis (Chronic) Cardiomyopathy (Ruled-out) Left ankle pain (Inactive) Non-compliance (Inactive) Surgical History Cataract extraction status (Resolved) History of lumbar surgery (Resolved) History of tonsillectomy and adenoidectomy (Resolved) History of total hysterectomy (Resolved) Family History Sister Arthritis Diabetes Father Cancer throat Aunt Diabetes Social History Smoking Status: Current every day smoker second hand exposure: Yes alcohol intake: never substance use type: does not use caffeine: Yes Type: coffee what type of physical activity do you participate in: none ROS Const Const: Positive for fatigue (increased); negative for weakness, weight gain, weight loss, frequent falls or excessive sweating Eyes Eyes: Negative for change in vision, blurry vision or transient loss of vision ENT ENT: Positive for balance problems (patient in PT); negative for dizziness Cardio Chest Pain: No Palpitations: No Edema: Bilateral (+3) Muscle aches with walking: None Resp Respiratory: Positive for SOB with activity; negative for SOB at rest (occasionally increased) GI GI: Negative vomiting or vomiting blood/hematemesis : Negative for hematuria Musc Musc: Positive for balance problems (patient in PT) and muscle aches/ myalgia (bilat LE); negative for muscle weakness or joint pain Skin Skin: Negative non-healing lesions or rash Neuro Neuro: Negative for weakness, blurry vision, dizziness, lightheadedness, frequent falls or orthostatic symptoms Rito Hematologic/Lymphatic: Negative for easy bleeding Endo Endo: Positive for fatigue (increased); negative for excessive sweating Psych Psych: Negative for anxiety or depression Allergy Allergy/Immunology: Negative for hives, Negative for rash Cardiology Exam Const Appearance: cooperative and other (Respiratory distress) Nutritional Appearance: overweight Orientation: alert, awake and oriented x3 Head Head: normal to inspection, normocephalic and atraumatic Ears: hearing grossly normal bilaterally Nose: external nose normal Mouth: oral mucosae normal Eyes Eyelids: eyelids normal Conjunctivae: conjunctivae normal Pupils: PERRL EOM: EOM intact bilaterally Neck Neck: normal visual inspection Carotids: normal carotid upstroke Chest Chest inspection: decreased respiratory effort and respiratory distress Auscultation: Bilateral: Inspiratory Wheezes, Expiratory Wheezes, Rhonchi Cardio Palpation: normal PMI Rhythm: irregular rhythm Heart sounds: S1 normal and S2 normal GI GI: normal to inspection, bowel sounds present and soft Neuro General: alert, awake and oriented x3 Skin Skin: no rashes or lesions noted Extremities Pulses: Normal: Right Radial Pulse, Left Radial Pulse Lower Extremity Edema: +2: Bilateral Psych Psychological: restless Supplemental Info Echocardiogram: 07/11/2017 Interpretation Summary The study was technically difficult. Left ventricular systolic function is hyperdynamic. The estimated ejection fraction is 75 %. The left atrium is mildly enlarged. Lipomatous hypertrophy of the atrial septum. There is mild to moderate mitral annular calcification. Extension of the mitral annular calcification onto the posterior mitral valve leaflet. Trivial mitral valve insufficiency. Trivial tricuspid valve insufficiency. Based upon spectral doppler information obtained there appears to be aortic valve sclerosis / mild aortic valve stenosis. Epicardial fat. Small pericardial effusion. There are no echocardiographic indications of cardiac tamponade. Unable to estimate RV systolic pressure/pulmonary artery pressure due to technically difficult study. Unable to assess diastolic dysfunction. Stress nuclear study: 05/13/2017 Stress protocol: Resting EKG demonstrates atrial for ablation with a rate of 81 bpm normal intervals and noted resting blood pressure is 120/60 mmHg. 0.4 mg regadenoson was infused per usual protocol followed by Intravenous saline flush injection continuous EKG monitoring was performed. Patient maintained atrial fibrillation throughout the recording. The maximum heart rate attained was 104 bpm which was 65% of maximum predicted heart rate the maximum workload attained was 1 metabolic equivalent. At rest there were no ST or T-wave changes noted suggest abnormal flow reserve at peak infusion no ST or T-wave changes were noted to suggest abnormal flow reserve. No pain was noted. The resting blood pressure is 120/62 mmHg final blood pressure is 112/58 mmHg. Myocardial perfusion protocol. 12.0 mCi of technetium 99m sestamibi was injected at rest. 0.4 mg of regadenoson was infused per usual protocol. At peak infusion 33.9 mCi of technetium 99m sestamibi was injected stress images were obtained stress and rest images were reconstructed and compared in the short axis vertical long and horizontal long axis. Gated images were also obtained. Perfusion SPECT analysis: Review of the stress images demonstrate normal uptake of tracer noted in all areas of the myocardium. The resting images similarly demonstrate normal uptake of tracer noted in all areas of the myocardium. No areas of reversibility are noted suggest ischemia no previous infarct is noted. Gated SPECT analysis. The gated ejection fraction is noted to be 83%. Conclusion: Normal pharmacologic myocardial perfusion stress test. Preserved ejection fraction. Assessment AND Plan 1. Syncope, unspecified syncope type R55 Plan She has had no further syncopal events. Unfortunately she has been unable to obtain the 30-day event monitor due to a variety of logistical issues. From a cardiac standpoint she is continuing her medication. Ideally, once her noncardiac conditions are under better control, which may require further emergency department evaluation/inpatient evaluation, if there is still a concern then perhaps another time can be made at obtaining a 30-day ambulatory event monitor. 2. Chronic atrial fibrillation I48.2 Plan She is on rate control therapy. She is on anticoagulant therapy. She appears to be tolerating her medications well thus far. 3. Hyperlipidemia, unspecified hyperlipidemia type E78.5 ECHO in June of 2017 showed a 75% EF Plan She does need to continue risk factor evaluation care as deemed appropriate. 4. Essential hypertension I10 Plan She does have a history of hypertension. Her blood pressure in the office today appears to be reasonably well-controlled. 5. Chronic obstructive pulmonary disease, unspecified COPD type J44.9 Plan She does have underlying COPD. Today she appears to be anxious and has an element of respiratory distress. She has audible rhonchi and Inspra Tory and expiratory wheezing. Based upon review of her clinical course it was recommended that she be transported to the [facility] emergency department for further evaluation and care. This was accomplished via the [facility] nursing staff transporting the patient to the [facility] emergency department. Her case was discussed with Dr. Yo Coronado of the [facility] emergency department staff. Thank you for allowing me to participate in the care of your patient. Please don't hesitate to call if any issues arise. This note was generated using a voice recognition system and there may be incorrect words, spelling or punctuation that were not noted when reviewing the office note prior to saving. Plan Detail Follow Up 3 Months (PFM) Coding Level of Care Code Off vis,est,level 3 Diagnoses Syncope, unspecified syncope type R55 Syncope type: unspecified Chronic atrial fibrillation I48.2 Hyperlipidemia, unspecified hyperlipidemia type E78.5 Hyperlipidemia type: unspecified Essential hypertension I10 Hypertension type: essential hypertension Chronic obstructive pulmonary disease, unspecified COPD type J44.9 COPD type: unspecified COPD Coding Level of Care Code Off vis,est,level 3 Diagnoses Syncope, unspecified syncope type R55 Syncope type: unspecified Chronic atrial fibrillation I48.2 Hyperlipidemia, unspecified hyperlipidemia type E78.5 Hyperlipidemia type: unspecified Essential hypertension I10 Hypertension type: essential hypertension Chronic obstructive pulmonary disease, unspecified COPD type J44.9 COPD type: unspecified COPD 11/20/17 1158 <Electronically signed by Camden Mccormick MD> Date Camden Mccormick MD Cosigner Signature: Date (if applicable) CC: Camden Burger DISCHARGE SUMMARY Observed: 11/03/2017 Status: F Source: [place] 12:03 PM [facility] REPOSITORY [facility] Medical Records Department [address] [place] [address] Discharge Summary 11/03/17 1201 MR#: [id number] Acct: [id number] Name: DARYA LARKIN Rep #: [id number] : 1955 62 From: All Karimi DO PCP: Camden Burger Status: ADM CAROL Y Location: [place] [address] Discharge Date and Diagnosis - Problem List Patient Problems: Active and Suspected Problems (Last Reviewed 11/02/17 @ 04:31 by Zacarias Carias MD) Abdominal pain (Acute) Date of Admission: 11/02/17 Date of Discharge: 11/03/17 - Primary Discharge Diagnosis Active and Suspected Problems (Last Reviewed 11/02/17 @ 04:31 by Zacarias Carias MD) Abdominal pain (Acute) - Secondary Discharge Diagnosis Chronic Problems (Last Reviewed 11/02/17 @ 04:31 by Zacarias Carias MD) Tobacco dependence due to cigarettes (Chronic) Non-compliance (Chronic) Microcytic anemia (Chronic) Hypersomnia (Chronic) Anemia (Chronic) Hypomagnesemia (Chronic) HTN (hypertension) (Chronic) Morbid obesity with BMI of 40.0-44.9, adult (Chronic) Chronic pain (Chronic) Chronic atrial fibrillation (Chronic) Chronic hypoxemic respiratory failure (Chronic) non-compliant with oxygen Hyperlipemia (Chronic) ECHO in June of 2017 showed a 75% EF Type 2 diabetes mellitus (Chronic) uncontrolled GERD (gastroesophageal reflux disease) (Chronic) Anxiety (Chronic) Insomnia (Chronic) Hospital Course and Treatment Imaging Results: Clinical Impression(s) from Imaging Studies Abdomen/Pelvis CT 11/01/17 21:24 IMPRESSION: No acute process. Mild degenerative spine changes. Electronically Signed: Eliana Small MD at 22:41 EDT Tel , Service support , Chest X-Ray 11/01/17 23:02 IMPRESSION: Normal x-ray examination of the chest. Electronically Signed: Eliana Small MD at 23:29 EDT Tel , Service support , Knee X-Ray 11/02/17 13:47 IMPRESSION: Degenerative arthrosis. Findings suggestive of a 1.6 cm x 1.7 cm loose body within the knee joint. Electronically Signed: Jose Lemos MD at 14:48 EDT Tel [phone], Service support , Lower Extremity MRI 11/02/17 14:54 IMPRESSION: Tricompartmental degenerative change. Medial meniscus tear. Lateral meniscus tear. Joint effusion with loose bodies. Electronically Signed: Danny Hale MD at 19:42 EDT , Service support , Operations: None Procedures: None Summary of Care Provided: The patient is a 62 year old F presents with abdominal pain. 1. suspected ischemic colitis * still with abdominal pain * lactic acid was elevated, then resolved * supportive mgmt * add empiric cipro and flagyl * follow up with General Surgery as outpt. 2. right knee pain * Due to effusion, meniscal tear and loose bodies * Discussed with Dr. Grijalva, who said the patient can follow up in her office for possible arthrocenteses. Will need to hold Xarelto beforehand. * supportive mgmt at this time. 3. wheezing * upper respiratory * dc steroids and observe 4. DM2 * uncontrolled * exacerbated by steroids * increase lantus from 55 to 60. 5. chronic afib * on dilt and dig * anticoagulated on xarelto * hold 48 hours before arthrocentesis[] Discharge Diet: 1800 Calorie Control Diet Discharge Activity: Return to Normal Activity Call your doctor if you observe: Fever of 101 or Higher, Shortness of breath, - - worsening abdominal pain. Home Medications: Medications to take at Discharge Albuterol Aerosols [Ventolin Aerosols] 2.5 mg INHALATION Q2H PRN PRN 05/12/17 Atorvastatin Calcium [Lipitor] 40 mg PO QHS 05/12/17 Budesonide/Formoterol 160/4.5 [Symbicort 160/4.5 Mcg Inhaler (SP)] 2 puff INHALATION BID 05/12/17 Bupropion HCl [Bupropion HCl Sr] 150 mg PO BID 05/12/17 Buspirone HCl 10 mg PO TID 05/12/17 Digoxin 250 mcg PO DAILY 05/12/17 Diltiazem [Cardizem] 120 mg PO BID 05/12/17 Famotidine [Pepcid] 20 mg PO BID 05/12/17 Furosemide [Lasix] 40 mg PO BID 05/12/17 Glucagon,Human Recombinant [Glucagon Emergency Kit] 1 mg IM PRN PRN 05/12/17 Guaifenesin [Mucinex] 1,200 mg PO BID 05/12/17 Insulin Lispro [Humalog] 12 unit SQ TIDCM 05/12/17 Ipratropium/Albuterol Sulfate [Duoneb] 3 ml INHALATION Q4H.RT 05/12/17 Lisinopril [Prinivil] 5 mg PO DAILY 05/12/17 Propranolol HCl [Inderal (Beta Lou)] 10 mg PO BID 05/12/17 Sennosides/Docusate Sodium [Senna-Docusate Sodium Tablet] 2 tab PO DAILY PRN PRN 05/12/17 Hydrocodone Bitart/Apap 5-325 [[place] 5/325] 1 tab PO Q6H PRN PRN 08/11/17 Mag Hydrox/Al Hydrox/Simeth [Mylanta II] 30 ml PO Q6H PRN PRN 08/11/17 Polyethylene Glycol 3350 [Miralax] 17 gm PO DAILY 08/11/17 docusate sodium 100 mg capsule 100 mg PO QDAY 09/01/17 gabapentin 100 mg capsule 100 mg PO TID cap 09/01/17 Spironolactone [Aldactone] 25 mg PO BID 11/01/17 Benzonatate [Tessalon Perle] 100 mg PO TID PRN PRN 11/02/17 Insulin Lispro [Humalog] See Protocol 11/02/17 Nitroglycerin 0.4 mg SL X1 11/02/17 Ciprofloxacin [Cipro IVPB] 400 mg IV Q12 #17 bag 11/03/17 Insulin Glargine,Hum.rec.anlog [Lantus Solostar] 60 unit SQ QHS #0 11/03/17 Metronidazole [Flagyl IVPB] 500 mg IV Q8 #27 bag 11/03/17 Rivaroxaban [Xarelto] 20 mg PO DAILY #0 11/03/17 Following Prescrptions Were Given to Patient: Ciprofloxacin [Cipro IVPB] 400 mg IV Q12 #17 bag Metronidazole [Flagyl IVPB] 500 mg IV Q8 #27 bag Primary Care Physician: Camden Burger [Primary Care Provider] - Within 2 Weeks Please Follow Up With: Khloe Montenegro DO - Orthopaedics When: 1 week. Call for appointment. Hold Xarelto 2 days before appointment. Please Follow Up With: Chata Childress MD - General Surgery When: 2-4 weeks. Call for appointment. Disposition: Home Minutes spent on discharge:: 35 Patient Condition:: Fair Medical Necessity - Tobacco Use Smoking Status: Current every day smoker Tobacco Use: Cigarettes Meaningful Use Info Meaningful Use Diagnoses (Choose all that apply): None applicable Code Visit Inpatient E AND M: 62801 Disch Hosp 11/03/17 1203 <Electronically signed by All Karimi DO> Date All Karimi DO Cosigner Signature (if applicable): Date CC: Camden Burger; All Karimi DO; Camden Burger MD Signed DISCHARGE INSTRUCTION Observed: 11/03/2017 Status: F Source: [place] 12:01 PM [facility] REPOSIT[facility] Medical Records Department [address] [place] [id number] Instructions for Home/Discharge Instructions 11/03/17 1158 MR#: [id number] Acct: [id number] Name: DARYA LARKIN Rep #: [id number] : 1955 62 From: All Karimi DO PCP: Camden Burger Status: ADM CAROL - Discharge Diagnoses Current Active Problems: Current Active and Chronic Problems (Last Reviewed 11/02/17 @ 04:31 by Zacarias Carias MD) Abdominal pain (Acute) You will use the following diet at home:: Calorie/Carbohydrate Controlled (specify 1200, 1400, etc) - 1800 kcal/day Your food should be the consistency of: Regular Your liquids should be the consistency of: Regular/Thin Discharge Activity: Return to Normal Activity Call your doctor if you observe: Fever of 101 or Higher, Shortness of breath, - - worsening abdominal pain. Allergies/Adverse Reactions: Allergies venom-honey bee [bee venom (honey bee)] Allergy (Verified 11/01/17 20:33) Swelling levofloxacin [From Levaquin] Adverse Reaction (Verified 11/01/17 20:33) Nausea oxycodone HCl [From Percocet] Adverse Reaction (Verified 11/01/17 20:33) Nausea Penicillins Adverse Reaction (Verified 11/01/17 20:33) Nausea/Vom/Diarrhea Medications to take at Discharge Albuterol Aerosols [Ventolin Aerosols] 2.5 mg INHALATION Q2H PRN PRN 05/12/17 Atorvastatin Calcium [Lipitor] 40 mg PO QHS 05/12/17 Budesonide/Formoterol 160/4.5 [Symbicort 160/4.5 Mcg Inhaler (SP)] 2 puff INHALATION BID 05/12/17 Bupropion HCl [Bupropion HCl Sr] 150 mg PO BID 05/12/17 Buspirone HCl 10 mg PO TID 05/12/17 Digoxin 250 mcg PO DAILY 05/12/17 Diltiazem [Cardizem] 120 mg PO BID 05/12/17 Famotidine [Pepcid] 20 mg PO BID 05/12/17 Furosemide [Lasix] 40 mg PO BID 05/12/17 Glucagon,Human Recombinant [Glucagon Emergency Kit] 1 mg IM PRN PRN 05/12/17 Guaifenesin [Mucinex] 1,200 mg PO BID 05/12/17 Insulin Lispro [Humalog] 12 unit SQ TIDCM 05/12/17 Ipratropium/Albuterol Sulfate [Duoneb] 3 ml INHALATION Q4H.RT 05/12/17 Lisinopril [Prinivil] 5 mg PO DAILY 05/12/17 Propranolol HCl [Inderal (Beta Lou)] 10 mg PO BID 05/12/17 Sennosides/Docusate Sodium [Senna-Docusate Sodium Tablet] 2 tab PO DAILY PRN PRN 05/12/17 Hydrocodone Bitart/Apap 5-325 [[place] 5/325] 1 tab PO Q6H PRN PRN 08/11/17 Mag Hydrox/Al Hydrox/Simeth [Mylanta II] 30 ml PO Q6H PRN PRN 08/11/17 Polyethylene Glycol 3350 [Miralax] 17 gm PO DAILY 08/11/17 docusate sodium 100 mg capsule 100 mg PO QDAY 09/01/17 gabapentin 100 mg capsule 100 mg PO TID cap 09/01/17 Spironolactone [Aldactone] 25 mg PO BID 11/01/17 Benzonatate [Tessalon Perle] 100 mg PO TID PRN PRN 11/02/17 Insulin Lispro [Humalog] See Protocol 11/02/17 Nitroglycerin 0.4 mg SL X1 11/02/17 Ciprofloxacin [Cipro IVPB] 400 mg IV Q12 #17 bag 11/03/17 Insulin Glargine,Hum.rec.anlog [Lantus Solostar] 60 unit SQ QHS #0 11/03/17 Metronidazole [Flagyl IVPB] 500 mg IV Q8 #27 bag 11/03/17 Rivaroxaban [Xarelto] 20 mg PO DAILY #0 11/03/17 The following prescriptions were given: Ciprofloxacin [Cipro IVPB] 400 mg IV Q12 #17 bag Metronidazole [Flagyl IVPB] 500 mg IV Q8 #27 bag Primary Care Physician: Camden Burger [Primary Care Provider] - Within 2 Weeks Test Results: Test results from this visit will be discussed in further detail at your follow-up appointment, if applicable. Please Follow Up With: Khloe Montenegro DO - Orthopaedics When: 1 week. Call for appointment. Hold Xarelto 2 days before appointment. Please Follow Up With: Chata Childress MD - General Surgery When: 2-4 weeks. Call for appointment. Proposed Discharge Date: 11/03/17 11/03/17 1201 <Electronically signed by All Karimi DO> Date All Karimi DO CC: Camden Burger; Camden Burger MD BEDSIDE GLUCOSE Collected: 11/03/2017 Status: F Source: [place] 11:19 AM [facility] REPOSITORY TYPE CODE TESTS RESULT OUT OF REFERENCE UNITS RANGE LAB L501.080 70-110 mg/dL High BEDSIDE GLU 399 Result Comment: MANAGEMENT OF PATIENT CARE PER NURSING PROTOCOL Performed By: #### L501.080 #### [facility] Point [place], [place] [id number] BEDSIDE GLUCOSE Collected: 11/03/2017 Status: F Source: [place] 7:07 AM [facility] REPOSITORY TYPE CODE TESTS RESULT OUT OF REFERENCE UNITS RANGE LAB L501.080 70-110 mg/dL High BEDSIDE GLU 269 Result Comment: MANAGEMENT OF PATIENT CARE PER NURSING PROTOCOL Performed By: #### L501.080 #### [facility] Point of Care [address] [place], [place] [address] CBC W/DIFF, AUTOMATED Collected: 11/03/2017 Status: F Source: [place] 6:37 AM [facility] REPOSITORY TYPE CODE TESTS RESULT OUT OF RANGE REFERENCE UNITS LAB L100.1000 4.4-11.0 K/mm3 High WBC 17.0 LAB L100.1200 4.2-5.4 M/mm3 Low RBC 3.80 LAB L100.1300 12.0-15.0 g/dl Low HGB 10.2 LAB L100.1400 37-47 % Low HCT 31.9 LAB L100.1500 81-99 fL Normal MCV 83.9 LAB L100.1600 27.0-32.0 pg Low MCH 26.8 LAB L100.1700 32-36 g/gl Normal MCHC 32.0 LAB L100.1810 11.6-14.6 % High RDW CV 17.1 LAB L100.1820 35.1-43.9 fl High RDW SD 51.4 LAB L100.1900 150-450 K/mm3 Normal PLT 287 LAB L100.2000 6.2-12.0 fl Normal MPV 11.7 LAB L100.2100 47-70 % High NEUT% 84.9 LAB L100.2200 19-41 % Low LY% 8.8 LAB L100.2300 0-10 % Normal MONO% 5.7 LAB L100.2400 0-5 % Normal EO% 0.0 LAB L100.2500 0-1 % Normal BASO% 0.1 LAB L100.2550 0.0-0.9 % Normal IM GRAN % 0.500 Result Comment: IG% - Immature Granulocytes (promyelocytes, myelocytes and metamyelocytes) > 1% indicates that a LEFT SHIFT is Present. LAB L100.2620 2.0-7.7 X10 3/uL High Absolute Neut 14.4 LAB L100.2720 0.83-4.51 X10 3/ul Normal Absolute Lymph 1.50 Performed By: #### L100.0100 #### [facility] [address] [place], [address] BASIC METABOLIC Collected: 11/03/2017 Status: F Source: [place] PROFILE (BMP) 6:37 AM [facility] REPOSITORY TYPE CODE TESTS RESULT OUT OF RANGE REFERENCE UNITS LAB L501.0100 74-106 mg/dL High GLU 277 Result Comment: Glucose result greater than or equal to 200 mg/dL suggests DIABETES MELLITUS per A.D.A. criteria. Please note revised GLUCOSE reference range effective 2017. LAB L501.1000 7-18 mg/dL Normal BUN 15 LAB L501.1100 0.55-1.02 mg/dL Normal CREAT,SERUM 0.68 Result Comment: The validity of the calculated GFR AND GFRAA in patients over 70 years has not been determined. Clinical correlation is essential. LAB L501.1110 >60 mL/min Normal EST GFR 93 Result Comment: Non- GFR Calc LAB L501.1115 >60 mL/min Normal EST GFR - AA 112 Result Comment: GFR Calc LAB L501.1255 ml/min Normal Estimated CRCL 64.73 LAB L501.1300 10-20 RATIO High BUN/CRE 21.9 LAB L501.2200 8.5-10 mg/dL Normal .1 CA 8.6 LAB L501.5300 136-14 mmol/L Low 5 NA 133 LAB L501.5600 3.5-5. mmol/L Normal 1 K 4.9 LAB L501.5900 98-107 mmol/L Normal CL 101 LAB L501.6100 21.0-3 mmol/L Normal 2.0 CO2 23.0 LAB L501.6200 5-15 Normal GAP 9 Performed By: #### L500.2500 #### [facility] [address] [place], [place], [address] BEDSIDE GLUCOSE Collected: 11/03/2017 Status: F Source: [place] 1:19 AM [facility] REPOSITORY TYPE CODE TESTS RESULT OUT OF REFERENCE UNITS RANGE LAB L501.080 70-110 mg/dL High BEDSIDE GLU 318 Result Comment: MANAGEMENT OF PATIENT CARE PER NURSING PROTOCOL Performed By: #### L501.080 #### [facility] Point of Care [address] [place] [address] BEDSIDE GLUCOSE Collected: 11/02/2017 Status: F Source: [place] 9:44 PM [facility] REPOSITORY TYPE CODE TESTS RESULT OUT OF REFERENCE UNITS RANGE LAB L501.080 70-110 mg/dL High BEDSIDE GLU 378 Result Comment: MANAGEMENT OF PATIENT CARE PER NURSING PROTOCOL Performed By: #### L501.080 #### [facility] Point of Care [address] [place] [address] BEDSIDE GLUCOSE Collected: 11/02/2017 Status: F Source: [place] 4:39 PM [facility] REPOSITORY TYPE CODE TESTS RESULT OUT OF REFERENCE UNITS RANGE LAB L501.080 70-110 mg/dL High BEDSIDE GLU 367 Result Comment: MANAGEMENT OF PATIENT CARE PER NURSING PROTOCOL Performed By: #### L501.080 #### [facility] Point of Care [address] [place] [address] LOWER EXT JOINT ONLY Observed: 11/02/2017 Status: F Source: [place] (ROUTINE) 2:55 PM [facility] REPOSITORY [facility] Imaging Services [address] [facility] [place] [address] Lower Ext Joint Only (Routine) MR#: [id number] Acct: [id number] Name: DARYA LARKIN Rep #: [id number] : 1955 F 62 From: Danny Hale MD PCP: Camden Burger Status: ADM CAROL Study: Lower Ext Joint Only (Routine) Date of Exam: 11/02/17 Exam# [id number] Ordering Dr: All Karimi DO STUDY: MRI RIGHT KNEE REASON FOR EXAM: Female, 62 years old. Pain and swelling. Difficulty walking. Possible loose body. TECHNIQUE: Standardized fat and water weighted pulse sequences were obtained in all 3 orthogonal planes. COMPARISON: X-ray FINDINGS: There is medial meniscus tear of the posterior horn, series 4 images 24/42 through 3442. There is tearing and extrusion of the body of the medial meniscus. There is diffuse, full thickness articular cartilage loss of the medial femorotibial compartment. There is severe osteoarthritic spur formation of the medial knee compartment. Normal medial collateral ligamentous complex (MCL). Normal distal semimembranosus, gracilis and semitendinosus tendons. There is lateral meniscus tear of the anterior horn, series 4 images through . There is diffuse, greater than 50% thickness articular cartilage loss of the lateral femorotibial compartment. There is severe osteoarthritic spur formation of the lateral knee compartment. Normal proximal tibiofibular articulation. Normal lateral collateral (fibular) ligament. Normal popliteus tendon. Normal biceps femoris tendon. Attenuation suggesting chronic sprain or partial tear of the anterior cruciate ligament (ACL). Normal posterior cruciate ligament (PCL). There is arthrosis of the patellofemoral articulation. There is diffuse, less than 50% thickness articular cartilage loss of the patellofemoral compartment. Normal medial and lateral patellar retinaculum. Normal quadriceps tendon. Normal patellar tendon. Normal Hoffa's fat pad. There is a moderate volume joint effusion. There is a 1.7 cm diminished signal loose body in the suprapatellar region. There is 1.8 cm diminished signal loose body at the posterior lateral aspect. The soft tissues are unremarkable. The otherwise visualized osseous structures are unremarkable. MRI/Lower Ext Joint Only (Routine) IMPRESSION: Tricompartmental degenerative change. Medial meniscus tear. Lateral meniscus tear. Joint effusion with loose bodies. Electronically Signed: Danny Hale MD at 19:42 EDT , Service support , CC: Camden Burger; All Karimi DO Eyeglass Inspector: Signed KNEE 1 OR 2 VIEWS Observed: 11/02/2017 Status: F Source: [place] 1:42 PM [facility] REPOS[facility] Imaging Services [facility] [place] [address] Knee 1 or 2 Views MR#: [id number] Acct: [id number] Name: DARYA LARKIN Rep #: [id number] : 1955 F 62 From: Jose Lemos MD PCP: Camden Burger Status: ADM CAROL Study: Knee 1 or 2 Views Date of Exam: 11/02/17 Exam# [id number] Ordering Dr: All Karimi DO STUDY: X-RAY - RIGHT KNEE REASON FOR EXAM: Female, 62 years old. Knee pain. TECHNIQUE: 3 view(s) of the knee. COMPARISON: Comparison is made with prior study dated 2016. FINDINGS: Degenerative spurring in the distal femur. Degenerative spurring of the tibial plateau. Normal proximal tibiofibular articulation. There is severe degenerative arthrosis of the medial femorotibial compartment with severe joint space narrowing. There is mild degenerative arthrosis of the lateral femorotibial compartment. There is severe degenerative arthrosis of the patellofemoral articulation. There are atherosclerotic calcifications. There is a 1.6 cm x 1.7 cm ossification along the posterior lateral aspect of the knee joint. This may represent an intra-articular loose body. RAD/Knee 1 or 2 Views IMPRESSION: Degenerative arthrosis. Findings suggestive of a 1.6 cm x 1.7 cm loose body within the knee joint. Electronically Signed: Jose Lemos MD at 14:48 EDT Tel [phone], Service support , CC: Camden Burger; All Karimi DO Eyeglass Inspector: Signed GLUCOSE Collected: 11/02/2017 Status: F Source: [place] 11:28 AM [facility] REPOSITORY Order Comment: Comments: LAB BACK UP FOR ONE TOUCH OF 461 TYPE CODE TESTS RESULT OUT OF RANGE REFERENCE UNITS LAB L501.0100 74-106 mg/dL High GLU 433 Result Comment: Glucose result greater than or equal to 200 mg/dL suggests DIABETES MELLITUS per A.D.A. criteria. Please note revised GLUCOSE reference range effective 2017. Performed By: #### L501.0100 #### [facility] [address] [place], [address] BEDSIDE GLUCOSE Collected: 11/02/2017 Status: F Source: [place] 11:12 AM [facility] REPOSITORY TYPE CODE TESTS RESULT OUT OF REFERENCE UNITS RANGE LAB L501.080 70-110 mg/dL High alert BEDSIDE GLU 461 Result Comment: MANAGEMENT OF PATIENT CARE PER NURSING PROTOCOL Performed By: #### L501.080 #### [facility] Point of Care [address] [place] [address] BEDSIDE GLUCOSE Collected: 11/02/2017 Status: F Source: [place] 7:35 AM [facility] REPOSITORY TYPE CODE TESTS RESULT OUT OF REFERENCE UNITS RANGE LAB L501.080 70-110 mg/dL High BEDSIDE GLU 260 Result Comment: MANAGEMENT OF PATIENT CARE PER NURSING PROTOCOL Performed By: #### L501.080 #### [facility] Point of Care [address] [place] [address] LACTIC ACID Collected: 11/02/2017 Status: F Source: [place] 5:18 AM [facility] REPOSITORY TYPE CODE TESTS RESULT OUT OF RANGE REFERENCE UNITS LAB L503.6005 0.4-2.0 mmol/L Normal LACTIC ACID 1.8 Performed By: #### L503.6005 #### [facility] [address] [place], [address] HISTORY AND PHYSICAL Observed: 11/02/2017 Status: F Source: [place] EXAM 4:37 AM [facility] REPOSITORY [facility] Medical Records Department [address] [place], [place] [address] [address] History and Physical 11/02/17 0006 MR#: [id number] Acct: [id number] Name: DARYA LARKIN Judi Rep #: [id number] : 1955 62 From: Zacarias Carias MD PCP: Camden Burger Status: ADM CAROL Y Location: [place] [address] Problem List (1) Abdominal pain Status: Acute (2) Acute exacerbation of chronic obstructive pulmonary disease (COPD) Status: Acute History of Present Illness Date of Admission: 11/02/17 Chief Complaint: Right lower quadrant abdominal pain 1 day. The patient is a 62 year old F with a significant history of COPD, diabetes mellitus, hypertension, hyperlipidemia; A. fib; appendectomy who lives at a long-term presenting with a 1 day history of excruciating pain at her right lower quadrants of her abdomen. At emergency department her potassium level was 5.6 but lab reported that her blood was slightly hemolyzed. CT scan of head abdomen and pelvis was unremarkable for any acute disease. Also, patient complained of increased shortness of breath. She has a chronic cough that has not changed from her baseline. Past Medical History Past Medical History (Chronic Problems): Chronic Problems (Last Reviewed 10/08/17 @ 11:09 by Marylu Howell NP-C) Tobacco dependence due to cigarettes (Chronic) Non-compliance (Chronic) Microcytic anemia (Chronic) Hypersomnia (Chronic) Anemia (Chronic) Hypomagnesemia (Chronic) HTN (hypertension) (Chronic) Morbid obesity with BMI of 40.0-44.9, adult (Chronic) Chronic pain (Chronic) Chronic atrial fibrillation (Chronic) Chronic hypoxemic respiratory failure (Chronic) non-compliant with oxygen Hyperlipemia (Chronic) ECHO in June of 2017 showed a 75% EF Type 2 diabetes mellitus (Chronic) uncontrolled GERD (gastroesophageal reflux disease) (Chronic) Anxiety (Chronic) Insomnia (Chronic) Medical History: Medical History (Last Reviewed 11/02/17 @ 04:31 by Zacarias Carias MD) Hypersomnia (Chronic) G47.10 Chest pain (Acute) R07.9 Anemia (Chronic) D64.9 Hypomagnesemia (Chronic) E83.42 HTN (hypertension) (Chronic) I10 Morbid obesity with BMI of 40.0-44.9, adult (Chronic) E66.01, Z68.41 COPD (chronic obstructive pulmonary disease) (Acute) J44.9 Chronic pain (Chronic) G89.29 Chronic atrial fibrillation (Chronic) I48.2 Chronic hypoxemic respiratory failure (Chronic) J96.11 non-compliant with oxygen Hyperlipemia (Chronic) E78.5 ECHO in June of 2017 showed a 75% EF Type 2 diabetes mellitus (Chronic) E11.9 uncontrolled GERD (gastroesophageal reflux disease) (Chronic) K21.9 Anxiety (Chronic) F41.9 Insomnia (Chronic) G47.00 Osteoporosis M81.0 Cardiomyopathy (Ruled-out) I42.9 EF in Oct 2015 45-50 Left ankle pain (Inactive) M25.572 Non-compliance (Inactive) Z91.19 withn follow up with pulmonary Allergies venom-honey bee [bee venom (honey bee)] Allergy (Verified 11/01/17 20:33) Swelling levofloxacin [From Levaquin] Adverse Reaction (Verified 11/01/17 20:33) Nausea oxycodone HCl [From Percocet] Adverse Reaction (Verified 11/01/17 20:33) Nausea Penicillins Adverse Reaction (Verified 11/01/17 20:33) Nausea/Vom/Diarrhea Home Medications: Ambulatory Orders Medication Instructions Recorded Albuterol Aerosols [Ventolin 2.5 mg INHALATION Q2H PRN PRN 05/12/17 Surgical History: Surgical History (Last Reviewed 11/02/17 @ 04:33 by Zacarias Carias MD) Cataract extraction status Z98.49 History of lumbar surgery Z98.890 History of tonsillectomy and adenoidectomy Z98.890 History of total hysterectomy Z90.710 Surgical History: hysterectomy, tonsillectomy, - - Lumbar surgery. Psychiatric History: Anxiety, Depression COURTROOM REPORTER History: No pertinent COURTROOM REPORTER history Lives: [facility] Smoking Status: Current every day smoker Alcohol: None - *Family History Maternal Family History: Family History (Last Reviewed 10/08/17 @ 11:09 by FRANKLIN Philippe) Sister Arthritis Diabetes Father Cancer Aunt Diabetes History Items: - - She reports that she is unaware of what her mother's health history was like Paternal Family History: Family History (Last Reviewed 10/08/17 @ 11:09 by FRANKLIN Philippe) Sister Arthritis Diabetes Father Cancer Aunt Diabetes History Items: Cancer, - - father with throat cancer. Sibling Family History: Family History (Last Reviewed 10/08/17 @ 11:09 by FRANKLIN Philippe) Sister Arthritis Diabetes Father Cancer Aunt Diabetes History Items: Asthma, COPD, Hypertension Review of Systems Constitutional: Denies: Chills, Fever, Weight Change HEENT: Denies: Head Aches, Sinus Congestion, Sinus Drainage Cardiovascular: Denies: Chest Pain, Palpitations Respiratory: Reports: Cough - Chronic, Shortness of Breath Gastrointestinal: Reports: Abdominal Pain Genitourinary: Denies: Dysuria Musculoskeletal: Denies: Joint Pain, Joint Tenderness Skin: Denies: Rash, Wounds Neurological: Denies: Numbness, Tingling, Focal weakness Psychiatric: Denies: Anxiety, Depression, Homicidal Ideations, Suicidal Ideations Hematologic/ Lymphatic: Denies: Easy Bruising, Easy Bleeding VTE Information - Inpt Only VTE Present on Admission: No VTE Mechan Device Prophylaxis: None VTE Pharm Prophylaxis ordered?: No Reason prophylaxis not ordered:: Treatment Not Indicated - On home Xarelto; continued Patient Problems: Active and Suspected Problems (Last Reviewed 10/08/17 @ 11:09 by Marylu Howell COACH WIRER-C) Abdominal pain (Acute) - Physical Exam General: Alert, Oriented x3, Cooperative, - HEENT: Atraumatic, PERRLA, EOMI, Normocephalic Neck: Supple, No JVD, Negative Carotid Bruits Lungs: Wheezes - 3. Cardiovascular: No murmurs, Irregular Rate Abdomen: Bowel Sounds Present, Soft, Tender - Right lower quadrant Extremities: No edema, Capillary Refill Less than 3 Seconds Skin: No rashes, No breakdown Musculoskeletal: No Tenderness to Palpation of Joints or Extremities Neurological: Cranial nerves II-XII grossly intact Psych/Mental Status: Normal Affect, Appropriate Vital Signs Temp Pulse Resp BP Pulse Ox 98.2 F 64 15 115/69 95 11/01/17 20:19 11/01/17 22:49 11/01/17 22:49 11/01/17 22:49 11/01/17 22:49 Oxygen Flow Rate (L/min) 2 Oxygen Delivery Method Nasal Cannula Weight: 100 kg Body Mass Index (BMI) 41.6 Finger Stick Blood Glucose 364 Laboratory Tests Past 24 Hrs WBC 13.1 H Assessment/Plan All Active Problems (Last Reviewed 10/08/17 @ 11:09 by Marylu Howell COACH WIRER-C) Abdominal pain (Acute) ABDULLAHI (obstructive sleep apnea) (Acute) Acute exacerbation of chronic obstructive pulmonary disease (COPD) (Acute) Syncope (Acute) Chest pain (Acute) Chest pain (Acute) COPD (chronic obstructive pulmonary disease) (Acute) Acute and chronic respiratory failure with hypoxia (Resolved) Acute bronchitis due to human metapneumovirus (Resolved) Atrial fibrillation with RVR (Resolved) COPD with acute exacerbation (Resolved) Gram-negative pneumonia (Resolved) Cardiomyopathy (Ruled-out) The patient is a 62 year old F with a significant history of COPD, diabetes mellitus, hypertension, hyperlipidemia; A. fib; appendectomy who lives at a long-term presenting with a 1 day history of excruciating pain at her right lower quadrants of her abdomen; also with increased shortness of breath; and severe wheezing on examination and is a found to have a severe wheezing on examination. Right lower abdominal pain CT scan of the abdomen is unremarkable White count is unremarkable. However she had elevated lactic acid. Her lactic acid was 2.3. Etiology unclear Supportive treatment with pain management; IV morphine; and hydration. Home Lasix discontinued. Repeat lactic acid. If her abdominal symptoms persist consider ischemic colitis Trend CBC Probable acute COPD exacerbation Patient with severe wheezing on examination Increased shortness of breath recently COPD pathway with IV prednisone; scheduled DuoNeb and as needed albuterol. Chest physiotherapy. Hyperkalemia Patient was found to have a potassium of 5.6 on admission. But lab reported that her blood was slightly hemolyzed. We will repeat a BMP Hold home aldactone Trend BMP Tobacco abuse Smoke cigarettes Counseled Erik ordered. Inpatient consult to smoking cessation. Diabetes mellitus Blood glucose was above goal at the time of admission Prandial, basal and correction scale ordered. HTN Blood pressure controlled on admission Cardizem continued Aldactone held for possible hyperkalemia Catapres as needed A. fib Controlled A. fib on admission Xarelto, Cardizem, and digoxin continued. Depression Wellbutrin continued Anxiety Buspirone continued Chronic pain Home [place] continued. Also patient is getting as needed morphine for her abdominal pain. DVT prophylaxis Not indicated. Patient on Xarelto. Code Visit OBSV E AND M: [id number] Initial observation care L3 11/02/17 0437 <Electronically signed by Zacarias Carias MD> Date Zacarias Carias MD Cosigner Signature: Date (if applicable) CC: Camden Burger; Zacarias Carias MD; Camden Burger MD Signed BEDSIDE GLUCOSE Collected: 11/02/2017 Status: F Source: [place] 3:58 AM [facility] REPOSITORY TYPE CODE TESTS RESULT OUT OF REFERENCE UNITS RANGE LAB L501.080 70-110 mg/dL High BEDSIDE GLU 249 Result Comment: MANAGEMENT OF PATIENT CARE PER NURSING PROTOCOL Performed By: #### L501.080 #### [facility] Point of Care [address] [place], [place] [address] BASIC METABOLIC Collected: 11/02/2017 Status: F Source: [place] PROFILE (BMP) 3:56 AM [facility] REPOSITORY TYPE CODE TESTS RESULT OUT OF RANGE REFERENCE UNITS LAB L501.0100 74-106 mg/dL High GLU 216 Result Comment: Glucose result greater than or equal to 200 mg/dL suggests DIABETES MELLITUS per A.D.A. criteria. Please note revised GLUCOSE reference range effective 2017. LAB L501.1000 7-18 mg/dL High BUN 19 LAB L501.1100 0.55-1.02 mg/dL Normal CREAT,SERUM 0.70 Result Comment: The validity of the calculated GFR AND GFRAA in patients over 70 years has not been determined. Clinical correlation is essential. LAB L501.1110 >60 mL/min Normal EST GFR 90 Result Comment: Non- GFR Calc LAB L501.1115 >60 mL/min Normal EST GFR - AA 108 Result Comment: GFR Calc LAB L501.1255 ml/min Normal Estimated CRCL 62.88 LAB L501.1300 10-20 RATIO High BUN/CRE 27.0 LAB L501.2200 8.5-10 mg/dL Normal .1 CA 8.6 LAB L501.5300 136-14 mmol/L Low 5 NA 133 LAB L501.5600 3.5-5. mmol/L High 1 K 5.3 LAB L501.5900 98-107 mmol/L Normal CL 99 LAB L501.6100 21.0-3 mmol/L Normal 2.0 CO2 25.0 LAB L501.6200 5-15 Normal GAP 9 Performed By: #### L500.2500 #### [facility] [address] [place], [place], [address] CBC W/DIFF, AUTOMATED Collected: 11/02/2017 Status: F Source: [place] 3:56 AM [facility] REPOSITORY TYPE CODE TESTS RESULT OUT OF RANGE REFERENCE UNITS LAB L100.1000 4.4-11.0 K/mm3 Normal WBC 11.0 LAB L100.1200 4.2-5.4 M/mm3 Low RBC 3.93 LAB L100.1300 12.0-15.0 g/dl Low HGB 10.4 LAB L100.1400 37-47 % Low HCT 32.9 LAB L100.1500 81-99 fL Normal MCV 83.7 LAB L100.1600 27.0-32.0 pg Low MCH 26.5 LAB L100.1700 32-36 g/gl Low MCHC 31.6 LAB L100.1810 11.6-14.6 % High RDW CV 17.6 LAB L100.1820 35.1-43.9 fl High RDW SD 54.5 LAB L100.1900 150-450 K/mm3 Normal PLT 296 LAB L100.2000 6.2-12.0 fl Normal MPV 11.1 LAB L100.2100 47-70 % Normal NEUT% 60.0 LAB L100.2200 19-41 % Normal LY% 28.6 LAB L100.2300 0-10 % Normal MONO% 7.9 LAB L100.2400 0-5 % Normal EO% 2.8 LAB L100.2500 0-1 % Normal BASO% 0.4 LAB L100.2550 0.0-0.9 % Normal IM GRAN % 0.300 Result Comment: IG% - Immature Granulocytes (promyelocytes, myelocytes and metamyelocytes) > 1% indicates that a LEFT SHIFT is Present. LAB L100.2620 2.0-7.7 X10 3/uL Normal Absolute Neut 6.6 LAB L100.2720 0.83-4.51 X10 3/ul Normal Absolute Lymph 3.13 Performed By: #### L100.0100 #### [facility] [address], [place], [id number] LACTIC ACID Collected: 11/02/2017 Status: F Source: [place] 12:46 AM [facility] REPOSITORY Order Comment: Yes/No query for Sepsis Lactate Rule Y TYPE CODE TESTS RESULT OUT OF REFERENCE UNITS RANGE LAB L503.6005 0.4-2.0 mmol/L High LACTIC ACID 2.3 Result Comment: Critical Result(s) Called at: 01:42:53 11/02/2017 by: STEWART GONZALES to Margarita Ag Performed By: #### L503.6005 #### [facility] [address] [place], [address] EMERGENCY DEPARTMENT Observed: 11/01/2017 Status: F Source: [place] SUMMARY 11:57 PM [facility] REPOSITORY [facility] Medical Records Department [address] [place] [address] Emergency Department Summary 11/01/17 2354 MR#: [id number] Acct: [id number] Name: DARYA LARKIN Rep #: [id number] : 1955 62 From: Soham Bacon DO PCP: Camden Burger Status: REG ER - ER Visit Summary Date of Service: 11/01/17 Chief Complaint: [Abdominal pain] History of Present Illness: The patient is a 62 F [presents the emergency department complaint of abdominal pain started about 3 hours ago. Patient states the pain came on suddenly initially and then she later stated that she thinks it actually came on gradually. Patient describes the pain is right-sided and rates it a 9 out of 10. Patient describes it as sharp. Patient's last bowel movement was this morning. She denies urinary symptoms. Patient states the pain is worse with deep breathing. Patient was at rest when she first noticed the pain. She denies any trauma. Patient has had a slight cough which is somewhat chronic for her and she does have a history of COPD. Patient also with history of A. fib and is on Xarelto. Patient is a diabetic and has a history of hypertension and high cholesterol. Patient has had prior appendectomy and hysterectomy.] Physical Examination: [HEENT-PERRLA, EOMI. Cranial nerves II through XII grossly intact. TMs clear. Mucous membranes moist. No adenopathy. Cardiovascular-regular rate and rhythm without murmur or ectopy Lungs-good aeration bilaterally. Patient has expiratory wheezes noted bilaterally. No accessory muscle use or retractions. Abdomen-normoactive bowel sounds, soft. Patient has tenderness to palpation over the right lower quadrant. There is some mild guarding. There is no rebound, rigidity, or perineal signs. Extremities-intact 4, normal range of motion, normal pulses, atraumatic] Test Results: [CBC with differential obtained showed a white count 13.1, hemoglobin 11.3, hematocrit 36, platelets 373. Chemistry showed a sodium 131 potassium 5.6 however this specimen of blood was slightly hemolyzed. Chloride was 97, CO2 25, glucose 242, BUN 21, creatinine 0.91. LFTs were unremarkable. Lipase was normal at 87. Urinalysis was normal. CT flank showed nothing acute. Chest x-ray showed nothing acute.] Emergency Department Course and Treatment: [She was medicated with morphine and Zofran and she had pain control with that. On repeat evaluation she continues to complain of significant discomfort of the right lower quadrant.] Treatment Plan: [Patient will be admitted for pain control.] Disposition: [Admit] Impression: [Abdominal pain-etiology uncertain] This note was generated with Innoz dictation software. It may contain incorrect words, spelling, and punctuation that were not noted in review of the chart prior to signing ED Disposition - Plan for ED Patient: Chief Complaint: Abd Pain Referrals: Camden Burger [Primary Care Provider] - What to do if you have Problems For any increased pain, shortness of breath, bleeding, nausea or vomiting, chest pain, or any unexpected problems, contact your Primary Care Provider. Call [facility] ([phone]) or report to the closest Emergency Room. Call 911 if necessary. 11/01/17 7000 <Electronically signed by Soham Bacon DO> Date Soham Bacon DO Cosigner Signature (If Indicated): Date CC: Camden Burger; Camden Burger MD URINALYSIS, COMPLETE Collected: 11/01/2017 Status: F Source: [place] 11:00 PM [facility] REPOSITORY Order Comment: How was Urine Obtained? CLEAN CATCH TYPE CODE TESTS RESULT OUT OF RANGE REFERENCE UNITS LAB L400.3000 Yellow COLOR Normal Yellow LAB L400.3050 Clear Normal CLARITY Clear LAB L400.3200 Normal mg/dl Normal GLUCOSE, UR Normal LAB L400.3300 Negative mg/dL Normal BILIRUBIN URINE Negative LAB L400.3400 Negative mg/dl Normal KETONE UR Negative LAB L400.3465 1.002-1.030 Normal SP.GR. DIPSTX 1.010 LAB L400.3550 5.0 - 8.0 pH UR Normal 6.0 LAB L400.3600 Negative mg/dl PROT Normal DIPSTX Negative LAB L400.3700 Normal mg/dl Normal UROBILI Normal LAB L400.3750 Negative Normal NITRITE UR Negative LAB L400.3780 Negative /ul Normal OCCULT BLOOD-UR Negative LAB L400.3800 Negative /ul LEUK Normal ESTERASE Negative LAB L400.4050 0-5 /hpf WBC 0 Normal SEEN LAB L400.4100 0-5 /hpf 0 Normal RBC-UA SEEN LAB L400.4150 5-10 /hpf SQUAM Normal EPI 0-5 SEEN LAB L400.4300 None Seen /hpf Normal BACTERIA RARE LAB L400.4350 <or=2+ /hpf 0 Normal MUCUS, URINE SEEN Performed By: #### L400.0001 #### [facility] [address] [facility], [address] CHEST 1 VIEW Observed: 11/01/2017 Status: F Source: [place] (PORTABLE) 10:51 PM [facility] REPOSITORY [facility] Imaging Services [address] [place] [address] Chest 1 View (Portable) MR#: [id number] Acct: [id number] Name: DARYA LARKIN Rep #: [id number] : 1955 F 62 From: Eliana Small MD PCP: Camden Burger Status: REG ER Study: Chest 1 View (Portable) Date of Exam: 11/01/17 Exam# [id number] Ordering Dr: Soham Bacon DO STUDY: X-RAY CHEST REASON FOR EXAM: Female, 62 years old. Dyspnea SOB abdominal pain. TECHNIQUE: Portable chest. COMPARISON: 09/07/2017. FINDINGS: The lungs are clear and expanded. There is no demonstrated pleural abnormality. Normal size heart. Normal mediastinum and sangeeta. Normal visualized pulmonary arteries. Normal visualized aortic arch and descending thoracic aorta. Normal visualized thoracic spine. Normal visualized ribs, clavicles, and shoulders. There is no demonstrated abnormality of the visualized soft tissue structures of the upper abdomen. RAD/Chest 1 View (Portable) IMPRESSION: Normal x-ray examination of the chest. Electronically Signed: Eliana Small MD at 23:29 EDT Tel , Service support , CC: Camden Burger; Soham Bacon DO Eyeglass Inspector: Signed ABDOMEN/PELVIS WITHOUT Observed: 11/01/2017 Status: F Source: [place] CONT 9:25 PM [facility] REPOSITORY [facility] Imaging Services [address] [place] [address] Abdomen/Pelvis without Cont MR#: [id number] Acct: [id number] Name: DARYA LARKIN Rep #: [id number] : 1955 F 62 From: Eliana Small MD PCP: Camden Burger Status: REG ER Study: Abdomen/Pelvis without Cont Date of Exam: 11/01/17 Exam# [id number] Ordering Dr: Soham Bacon DO STUDY: CT ABDOMEN AND PELVIS WITHOUT CONTRAST REASON FOR EXAM: Female, 62 years old. Abdominal pain. RADIATION DOSAGE (If Supplied By Facility): CTDIvol = ( 19.58 ) mGy, DLP = ( 914.89 ) mGycm TECHNIQUE: Transaxial images were obtained from the dome of the diaphragm to the symphysis pubis without oral contrast, and without intravenous contrast. Sagittal and coronal images were reconstructed. Individualized dose optimization techniques were used for this CT. COMPARISON: 09/02/2016. FINDINGS: The visualized lung bases are unremarkable. The visualized portions of the heart are within normal limits. Normal liver. Normal gallbladder and extrahepatic biliary system. Normal spleen. Normal pancreas. Normal bilateral adrenal glands. Normal right kidney. Normal left kidney. The abdominal aorta is normal in caliber, with moderate atherosclerotic calcification. There is no free fluid, free air, or organized collection. There is no bowel obstruction or inflammatory change. Normal urinary bladder. Normal abdominal wall. Mild degenerative changes of the lumbar spine are noted. CT/Abdomen/Pelvis without Cont IMPRESSION: No acute process. Mild degenerative spine changes. Electronically Signed: Eliana Small MD at 22:41 EDT Tel , Service support , CC: Camden Burger; Soham Bacon DO Eyeglass Inspector: Signed COMPREHENSIVE METABOLIC Collected: 11/01/2017 Status: F Source: [facility] 9:00 PM [facility] REPOSITORY TYPE CODE TESTS RESULT OUT OF RANGE REFERENCE UNITS LAB L501.0100 74-106 mg/dL High GLU 242 Result Comment: Glucose result greater than or equal to 200 mg/dL suggests DIABETES MELLITUS per A.D.A. criteria. Please note revised GLUCOSE reference range effective 2017. LAB L501.1000 7-18 mg/dL High BUN 21 LAB L501.1100 0.55-1.02 mg/dL Normal CREAT,SERUM 0.91 Result Comment: The validity of the calculated GFR AND GFRAA in patients over 70 years has not been determined. Clinical correlation is essential. LAB L501.1110 >60 mL/min Normal EST GFR 66 Result Comment: Non- GFR Calc LAB L501.1115 >60 mL/min Normal EST GFR - AA 80 Result Comment: GFR Calc LAB L501.1255 ml/min Normal Estimated CRCL 48.37 LAB L501.1300 10-20 RATIO High BUN/CRE 23.1 LAB L501.1500 6.4-8. g/dL Normal 2 T PROT 6.8 LAB L501.1800 3.2-5. g/dL Low 0 ALB 3.0 LAB L501.1950 2.2-4. g/dL Normal 2 GLOB 3.8 LAB L501.2000 0.9-2. RATIO Low 4 A/G 0.8 LAB L501.2200 8.5-10 mg/dL Normal .1 CA 9.0 LAB L501.4100 15-37 U/L Normal AST 20 Result Comment: Slight Hemolysis, Result may be falsely increased. LAB L501.4305 45-117 U/L High ALK P 141 LAB L501.4405 13-56 U/L Normal ALT 24 LAB L501.4600 0.20-1.00 mg/dL Normal T BILI 0.30 LAB L501.5300 136-145 mmol/L Low NA 131 LAB L501.5600 3.5-5.1 mmol/L High K 5.6 Result Comment: Slight Hemolysis, Result may be falsely increased. LAB L501.5900 98-107 mmol/L Low CL 97 LAB L501.6100 21.0-32.0 mmol/L Normal CO2 25.0 LAB L501.6200 5-15 Normal GAP 9 Performed By: #### L500.4050, L501.2450 #### [facility] [address] [place], [place], [address] LIPASE Collected: 11/01/2017 Status: F Source: [place] 9:00 PM [facility] REPOSITORY TYPE CODE TESTS RESULT OUT OF RANGE REFERENCE UNITS LAB L501.2450 73-393 U/L Normal LIPASE 87 Performed By: #### L500.4050, L501.2450 #### [facility] [address] [place], [address] CBC W/DIFF, AUTOMATED Collected: 11/01/2017 Status: F Source: [place] 9:00 PM [facility] REPOSITORY TYPE CODE TESTS RESULT OUT OF RANGE REFERENCE UNITS LAB L100.1000 4.4-11.0 K/mm3 High WBC 13.1 LAB L100.1200 4.2-5.4 M/mm3 Normal RBC 4.29 LAB L100.1300 12.0-15.0 g/dl Low HGB 11.3 LAB L100.1400 37-47 % Low HCT 35.7 LAB L100.1500 81-99 fL Normal MCV 83.2 LAB L100.1600 27.0-32.0 pg Low MCH 26.3 LAB L100.1700 32-36 g/gl Low MCHC 31.7 LAB L100.1810 11.6-14.6 % High RDW CV 17.7 LAB L100.1820 35.1-43.9 fl High RDW SD 53.9 LAB L100.1900 150-450 K/mm3 Normal PLT 373 LAB L100.2000 6.2-12.0 fl Normal MPV 11.1 LAB L100.2100 47-70 % Normal NEUT% 63.9 LAB L100.2200 19-41 % Normal LY% 22.6 LAB L100.2300 0-10 % Normal MONO% 9.4 LAB L100.2400 0-5 % Normal EO% 3.4 LAB L100.2500 0-1 % Normal BASO% 0.5 LAB L100.2550 0.0-0.9 % Normal IM GRAN % 0.200 Result Comment: IG% - Immature Granulocytes (promyelocytes, myelocytes and metamyelocytes) > 1% indicates that a LEFT SHIFT is Present. LAB L100.2620 2.0-7.7 X10 3/uL High Absolute Neut 8.4 LAB L100.2720 0.83-4.51 X10 3/ul Normal Absolute Lymph 2.96 Performed By: #### L100.0100 #### [facility] [address] [place] [address]. [place], [address] [facility] Collected: 10/26/2017 Status: F Source: [place] 4:33 PM [facility] REPOSITORY TYPE CODE TESTS RESULT OUT OF REFERENCE UNITS RANGE LAB NA 128-145 mmol/L Sodium 132 LAB K 3.6-5.1 mmol/L High Potassium 5.2 Result Comment: SLIGHTLY HEMOLYZED LAB CL 98-108 mmol/L Chloride 100 LAB CO2 18-33 mmol/L CO2 25 LAB CRET 0.6-1.2 mg/dL Creatinine 0.60 LAB BUN 7-22 mg/dL BUN Low 0 Result Comment: NO RESULT,QNS FOR REPEAT LAB GLU 73-118 mg/dL High Glucose 208 Result Comment: UNABLE TO CONTACT PATIENT FOR REDRAW LAB CA 8.0-10.3 mg/dL Calcium, Total 9.8 LAB MG 1.6-2.3 mg/dL Magnesium 1.9 LAB AGAP 9-18 mmol/L Anion Low Gap 7 LAB GFRAA eGFR- Amer. >60 LAB GFRNAA . eGFR-All Other Races >60 Result Comment: eGFR (Estimated GFR) Units of measure: mL/min/1.73 meters squared eGFR is derived from the reexpressed MDRD Study equation using the following parameters: serum creatinine, age, gender and race. The creatinine assay has been calibrated to be traceable to IDMS. An eGFR <60 mL/min/1.73m2 for >3 months is consistent with chronic kidney disease. Refer to KDOQI guidelines for clinical interpretation. In patients with unstable renal function, e.g. those with acute kidney injury, the eGFR may not accurately reflect actual GFR. PROGRESS Observed: 10/26/2017 Status: COMPLETED Source: [place] 4:15 PM [facility] REPOSITORY O ID: [id number] Author: Shane Pitts Service: (none) Author Type: Physician Type: Progress Notes Filed: 10/26/2017 4:22 PM Note Text: PERTINENT CARDIAC HISTORY ASHD - NSTEMI 2010 during COPD exacerbation A fib - PAF HTN HL DM Cor pulmonale ADHERENCE TO GUIDELINES BRIDGETTE-I or ARB for HF with prior LVEF<40 (NQF 0081) - met ASA or Plavix for ASHD (NQF 0067) - a/c Beta lou for ASHD with prior KS or prior LVEF<40 (NQF 0070) - met Beta lou for HF with prior LVEF<40 (NQF 0083) - N/A BRIDGETTE-I or ARB for ASHD with DM or prior LVEF<40 (NQF 0066) - met Statin therapy for ASHD or FHL or DM - met BMI documented and plan if >25 (NQF 0421) - lifestyle recommendation form Tobacco use screening and referral (NQF 0028) - lifestyle recommendation form Recommendation for whole food, plant based diet - lifestyle recommendation form CLINICAL IMPRESSION/PLAN: Darya Larkin is doing reasonably well. She has been strongly advised to stop smoking. She was encouraged to be compliant with salt and calorie restriction. Her dependent edema is addressed with an increase in her diuretic therapy. She will have basic profile today and we will start Aldactone 25 milligrams twice daily. BMP will be repeated in one week. We will ask the long-term to contact us with report on her edema and weight. She would benefit from discontinuation of propranolol. Metoprolol would be a better choice, given her history of obstructive lung disease. It is unclear why propranolol was initiated. She will continue low-dose diltiazem for rate control. There is no evidence of active bleeding. Renal function is normal and she appears to be tolerating Xarelto. I will see her in 6 months or as needed. Written and verbal health teaching given to patient, patient verbalizes understanding and agrees with treatment plan. DIAGNOSIS FOR VISIT: ASHD Atrial fibrillation HISTORY OF PRESENT ILLNESS Darya Larkin returns for follow-up of multiple cardiac issues, as noted above. She has had several admissions over the last few months for exacerbation of COPD and right heart failure. No changes have been made in her medication. She has an episode of presumed syncope while sitting in a chair back in the spring. Event monitor showed no significant pauses. This has not recurred. She denies chest pain. She's had chronic edema. She continues to smoke. She's had no palpitations, TIAs, amaurosis or claudication. Wound care has been good. She is having no Active weeping from her legs at this time. ALLERGIES: ALLERGIES Allergen Reactions - Bee Stings [Other] Swelling - Levaquin [Levofloxa* - Penicillins Vomiting Was able to take amoxil - Percocet [Oxycodone* Vomiting CURRENT OUTPATIENT MEDICATIONS: propranolol (INDERAL) 10 mg tablet Take 10 mg by mouth twice daily. famotidine (PEPCID) 20 mg tablet Take 20 mg by mouth twice daily. gabapentin (NEURONTIN) 100 mg capsule Take 100 mg by mouth three times daily. budesonide-formoterol (SYMBICORT) 160-4.5 mcg/actuation inhaler Inhale 2 Puffs as instructed twice daily. furosemide (LASIX) 20 mg tablet Take 2 tablets by mouth twice daily. potassium chloride (KLOR-CON 10) 10 mEq tablet Take 1 tablet by mouth twice daily. rivaroxaban (XARELTO) 20 mg tablet Take 1 tablet by mouth daily with dinner. ipratropium-albuterol (DUONEB) 0.5 mg-3 mg(2.5 mg base)/3 mL nebu Inhale 3 mL as instructed four times daily. polyethylene glycol 3350 (MIRALAX, GLYCOLAX) 17 gram packet Take 17 g by mouth once daily. albuterol HFA (VENTOLIN HFA) 90 mcg/actuation inhaler Inhale 2 Puffs as instructed every 4 hours as needed. insulin aspart (NOVOLOG FLEXPEN) 100 unit/mL inpn Inject 5 Units subcutaneously three times daily with meals. digoxin (LANOXIN) 250 mcg tablet Take 1 tablet by mouth once daily. mometasone-formoterol (DULERA) 200-5 mcg/actuation inhaler Inhale 1 Puff as instructed twice daily. LANTUS SOLOSTAR 100 unit/mL (3 mL) inpn INJECT 65 UNITS SUBCUTANEOUSLY DAILY AT BEDTIME. atorvastatin (LIPITOR) 40 mg tablet Take 1 tablet by mouth once daily. lisinopril (PRINIVIL) 5 mg tablet Take 1 tablet by mouth once daily. blood sugar diagnostic (FREESTYLE TEST) test strip Test 3 times per day. Insulin requiring type 2 DM. 250.00 Insulin [place], Disposable, (STEPHANIE PEN NEEDLE) 32 gauge x 532 ndle Use one needle for each dose. 1/day. busPIRone (BUSPAR) 10 mg tablet Take 1 tablet by mouth three times daily. Blood-Glucose Meter monitoring kit Glucose Meter of Choice - Kit - Dx: Type 2 DM - Controlled E11.9 COMPOUNDED PRESCRIPTION Pull ups:1 box: DX: CHF11 refills COMPOUNDED PRESCRIPTION 2 plus depends: DX: debility, chf diltiazem CD (CARTIA XT) 120 mg 24 hr capsule Take 1 capsule by mouth once daily. nitroglycerin sublingual (NITROQUICK) 0.4 mg SL tablet Dissolve 1 tablet under the tongue as needed. FOR CHEST PAIN. IF NO RELIEF CALL 911 lancets (FREESTYLE LANCETS) 28 gauge misc Test 3 times per day. Insulin requiring type 2 DM. 250.00 ALBUTEROL SULFATE 2.5 MG/3 ML (0.083 %) NEB SOLUTION Inhale 1 vial via nebulizer 4 times a day routinely and every 2 hours as needed for wheezing, cough, shortness of breath. Enoc's docudose. bupropion hcl(WELLBUTRIN SR 150 MG TAB) Take one(1) tablet twice daily. Cooper's Docudose. COMPOUNDED PRESCRIPTION BD 1/2 cc syringe. Use as directed. Dx: 250.00 Blood-Glucose Meter (FREESTYLE SYSTEM KIT) Misc Kit Test 3 times per day. Insulin requiring type 2 DM. 250.00 COMPOUNDED PRESCRIPTION Pen tip needles. Use as directed, Dx: 250.00 spironolactone (ALDACTONE) 25 mg tablet Take 1 tablet by mouth twice daily. omeprazole(PRILOSEC 20 MG CAP) Take one(1) capsule daily. PHYSICAL EXAMINATION: VITAL SIGNS: BP 106/67 Pulse 90 Wt 216 lb (98.0kg) Chest: There are a few scattered rhonchi. There is mild expiratory prolongation. Breath sounds are generally diminished. Trachea is midline. Air entry is equal. Cardiac: Irregularly irregular rhythm. S1 and S2 are normal. PMI is nondisplaced. There is a soft systolic ejection murmur. Carotids are brisk without bruits. JVP is 10-12 centimeters Abdomen: Soft and nontender. There are no pulsatile masses or bruits. No liver enlargement. Bowel sounds are active. Extremities: 3 plus soft pitting edema. There is no cellulitis or weeping. Pulses are diminished but symmetrical. Recent hospital records were reviewed. EKG shows atrial fibrillation with controlled response. Echocardiogram showed normal left ventricular function. There was no significant tricuspid insufficiency and RVSP could not be estimated. Recent stress test was reportedly negative for ischemia. Event monitor showed no abnormal rhythm or prolonged pauses. Electronically Signed: Shane Pitts MD October 26, 2017 4:15 PM CC: No primary care provider on file. CNOV Observed: 10/26/2017 Status: COMPLETED Source: [place] 3:00 PM [facility] REPOSITORY Office Visit (CAWSTR) DARYA LARKIN ([id number]) 1955 F Date Time Provider Department 10/26/17 3:00 PM SHANE PITTSWSTR During your visit today, we recorded the following information about you: Pulse Blood pressure Weight 90/minute 106/67 98 kg Shane Pitts MD 10/26/2017 3:45 PM Signed LIFESTYLE CHANGE A healthy lifestyle is the most important component of your overall treatment plan. Please give serious thought to the following areas and commit to making penitentiary changes. EAT A WHOLE FOOD, PLANT BASED DIET The nutrition your body gets is more important than the medicine you take. What matters most is the overall way you eat. We encourage you to minimize the use of animal products (which include dairy and all meats except fatty fish) and use whole, unprocessed plant foods to provide your protein, vitamins and other nutrients. We have a lot of information to share with you on this topic. This is not a diet. It is a way of life that you will keep with you. EXERCISE REGULARLY It is not important to spend hours in the gym, lifting weights and perspiring heavily. A total of 2-3 hours per week of aerobic (causing you to be moderately short of breath) exercise is sufficient to improve your health. Talk to us before you begin a new exercise program, if you have heart disease or experience shortness of breath or chest pain. REDUCE STRESS Chronic emotional and physical stress leads to disease. Ways of reducing stress include meditation, visualization, prayer, yoga and other forms of relaxation therapy. Consistency is the wade. Find a technique that works for you and do it every day. CULTIVATE RELATIONSHIPS Loneliness and isolation have a major negative impact on health. Seek out others who can love, care for and nurture you. Avoid hurtful relationships. MAINTAIN IDEAL BODY WEIGHT The best way to do this is to do all the things above. Our bodies naturally find the right weight if we keep moving and feed ourselves the right food. If your BMI is greater than 25, we strongly recommend a referral to a weight management program. Please speak to us or your family physician about available programs. AVOID NICOTINE IN ALL FORMS This includes all tobacco products, whether chewed, smoked, vaped, or rubbed on the skin. Smoking cessation programs, which can make use of tobacco substitutes, medications to suppress cravings and behavior management, are available. Please contact your family physician about programs in your area. Shane Pitts MD 10/26/2017 4:22 PM Signed PERTINENT CARDIAC HISTORY ASHD - NSTEMI 2009 during COPD exacerbation A fib - PAF HTN HL DM Cor pulmonale ADHERENCE TO GUIDELINES BRIDGETTE-I or ARB for HF with prior LVEF<40 (NQF 0081) - met ASA or Plavix for ASHD (NQF 0067) - a/c Beta lou for ASHD with prior KS or prior LVEF<40 (NQF 0070) - met Beta lou for HF with prior LVEF<40 (NQF 0083) - N/A BRIDGETTE-I or ARB for ASHD with DM or prior LVEF<40 (NQF 0066) - met Statin therapy for ASHD or FHL or DM - met BMI documented and plan if >25 (NQF 0421) - lifestyle recommendation form Tobacco use screening and referral (NQF 0028) - lifestyle recommendation form Recommendation for whole food, plant based diet - lifestyle recommendation form CLINICAL IMPRESSION/PLAN: Darya Larkin is doing reasonably well. She has been strongly advised to stop smoking. She was encouraged to be compliant with salt and calorie restriction. Her dependent edema is addressed with an increase in her diuretic therapy. She will have basic profile today and we will start Aldactone 25 milligrams twice daily. BMP will be repeated in one week. We will ask the long-term to contact us with report on her edema and weight. She would benefit from discontinuation of propranolol. Metoprolol would be a better choice, given her history of obstructive lung disease. It is unclear why propranolol was initiated. She will continue low-dose diltiazem for rate control. There is no evidence of active bleeding. Renal function is normal and she appears to be tolerating Xarelto. I will see her in 6 months or as needed. Written and verbal health teaching given to patient, patient verbalizes understanding and agrees with treatment plan. DIAGNOSIS FOR VISIT: ASHD Atrial fibrillation HISTORY OF PRESENT ILLNESS Darya Larkin returns for follow-up of multiple cardiac issues, as noted above. She has had several admissions over the last few months for exacerbation of COPD and right heart failure. No changes have been made in her medication. She has an episode of presumed syncope while sitting in a chair back in the spring. Event monitor showed no significant pauses. This has not recurred. She denies chest pain. She's had chronic edema. She continues to smoke. She's had no palpitations, TIAs, amaurosis or claudication. Wound care has been good. She is having no Active weeping from her legs at this time. ALLERGIES: ALLERGIES Allergen Reactions - Bee Stings [Other] Swelling - Levaquin [Levofloxa* - Penicillins Vomiting Was able to take amoxil - Percocet [Oxycodone* Vomiting CURRENT OUTPATIENT MEDICATIONS: propranolol (INDERAL) 10 mg tablet Take 10 mg by mouth twice daily. famotidine (PEPCID) 20 mg tablet Take 20 mg by mouth twice daily. gabapentin (NEURONTIN) 100 mg capsule Take 100 mg by mouth three times daily. budesonide-formoterol (SYMBICORT) 160-4.5 mcg/actuation inhaler Inhale 2 Puffs as instructed twice daily. furosemide (LASIX) 20 mg tablet Take 2 tablets by mouth twice daily. potassium chloride (KLOR-CON 10) 10 mEq tablet Take 1 tablet by mouth twice daily. rivaroxaban (XARELTO) 20 mg tablet Take 1 tablet by mouth daily with dinner. ipratropium-albuterol (DUONEB) 0.5 mg-3 mg(2.5 mg base)/3 mL nebu Inhale 3 mL as instructed four times daily. polyethylene glycol 3350 (MIRALAX, GLYCOLAX) 17 gram packet Take 17 g by mouth once daily. albuterol HFA (VENTOLIN HFA) 90 mcg/actuation inhaler Inhale 2 Puffs as instructed every 4 hours as needed. insulin aspart (NOVOLOG FLEXPEN) 100 unit/mL inpn Inject 5 Units subcutaneously three times daily with meals. digoxin (LANOXIN) 250 mcg tablet Take 1 tablet by mouth once daily. mometasone-formoterol (DULERA) 200-5 mcg/actuation inhaler Inhale 1 Puff as instructed twice daily. LANTUS SOLOSTAR 100 unit/mL (3 mL) inpn INJECT 65 UNITS SUBCUTANEOUSLY DAILY AT BEDTIME. atorvastatin (LIPITOR) 40 mg tablet Take 1 tablet by mouth once daily. lisinopril (PRINIVIL) 5 mg tablet Take 1 tablet by mouth once daily. blood sugar diagnostic (FREESTYLE TEST) test strip Test 3 times per day. Insulin requiring type 2 DM. 250.00 Insulin [place], Disposable, (STEPHANIE PEN NEEDLE) 32 gauge x 5/32 ndle Use one needle for each dose. 1/day. busPIRone (BUSPAR) 10 mg tablet Take 1 tablet by mouth three times daily. Blood-Glucose Meter monitoring kit Glucose Meter of Choice - Kit - Dx: Type 2 DM - Controlled E11.9 COMPOUNDED PRESCRIPTION Pull ups:1 box: DX: CHF11 refills COMPOUNDED PRESCRIPTION 2 plus depends: DX: debility, chf diltiazem CD (CARTIA XT) 120 mg 24 hr capsule Take 1 capsule by mouth once daily. nitroglycerin sublingual (NITROQUICK) 0.4 mg SL tablet Dissolve 1 tablet under the tongue as needed. FOR CHEST PAIN. IF NO RELIEF CALL 911 lancets (FREESTYLE LANCETS) 28 gauge misc Test 3 times per day. Insulin requiring type 2 DM. 250.00 ALBUTEROL SULFATE 2.5 MG/3 ML (0.083 %) NEB SOLUTION Inhale 1 vial via nebulizer 4 times a day routinely and every 2 hours as needed for wheezing, cough, shortness of breath. Enoc's docudose. bupropion hcl(WELLBUTRIN SR 150 MG TAB) Take one(1) tablet twice daily. Cooper's Docudose. COMPOUNDED PRESCRIPTION BD 1/2 cc syringe. Use as directed. Dx: 250.00 Blood-Glucose Meter (FREESTYLE SYSTEM KIT) Misc Kit Test 3 times per day. Insulin requiring type 2 DM. 250.00 COMPOUNDED PRESCRIPTION Pen tip needles. Use as directed, Dx: 250.00 spironolactone (ALDACTONE) 25 mg tablet Take 1 tablet by mouth twice daily. omeprazole(PRILOSEC 20 MG CAP) Take one(1) capsule daily. PHYSICAL EXAMINATION: VITAL SIGNS: BP 106/67 Pulse 90 Wt 216 lb (98.0kg) Chest: There are a few scattered rhonchi. There is mild expiratory prolongation. Breath sounds are generally diminished. Trachea is midline. Air entry is equal. Cardiac: Irregularly irregular rhythm. S1 and S2 are normal. PMI is nondisplaced. There is a soft systolic ejection murmur. Carotids are brisk without bruits. JVP is 10-12 centimeters Abdomen: Soft and nontender. There are no pulsatile masses or bruits. No liver enlargement. Bowel sounds are active. Extremities: 3 plus soft pitting edema. There is no cellulitis or weeping. Pulses are diminished but symmetrical. Recent hospital records were reviewed. EKG shows atrial fibrillation with controlled response. Echocardiogram showed normal left ventricular function. There was no significant tricuspid insufficiency and RVSP could not be estimated. Recent stress test was reportedly negative for ischemia. Event monitor showed no abnormal rhythm or prolonged pauses. Electronically Signed: Shane Pitts MD October 26, 2017 4:15 PM CC: No primary care provider on file. Referring Provider: SHANE PITTS [[id number]] Allergies As of Date: 10/26/2017 Noted Allergy Reaction bee stings [Other] 08/28/2009 7 - Swelling LEVAQUIN (LEVOFLOXACIN) 08/25/2006 PENICILLINS 12/17/2004 11 - Vomiting Comments: Was able to take amoxil PERCOCET (OXYCODONE-ACETAMINOPHEN)07/18/2010 11 - Vomiting Date Reviewed: 10/26/2017 Reviewed by: Pool (Rn) Godwin - Fully Assessed Reason for Visit: Established Patient [175] Cmt: 6 month follow-up CHF/ASHD Primary Visit Diagnosis:ASHD (arteriosclerotic heart disease) [I25.10] Other Visit Diagnosis:Chronic diastolic CHF (congestive heart failure) (HCC) [I50.32] Order(s):[facility] [SQPICBMP] Order #: [id number] FUTURE spironolactone (ALDACTONE) 25 mg tabletTake 1 tablet by mouth twice daily.Disp: 60 tabletRfl: 11 Prescriptions as of 10/26/2017 Sig: PROPRANOLOL 10 MG TABLET Take 10 mg by mouth twice nicholas* FAMOTIDINE 20 MG TABLET Take 20 mg by mouth twice nicholas* GABAPENTIN 100 MG CAPSULE Take 100 mg by mouth three ti* BUDESONIDE-FORMOTEROL HFA 160* Inhale 2 Puffs as instructed * FUROSEMIDE 20 MG TABLET Take 2 tablets by mouth twice* POTASSIUM CHLORIDE ER 10 MEQ * Take 1 tablet by mouth twice * RIVAROXABAN 20 MG TABLET Take 1 tablet by mouth daily * IPRATROPIUM-ALBUTEROL 0.5 MG-* Inhale 3 mL as instructed fou* POLYETHYLENE GLYCOL 3350 17 G* Take 17 g by mouth once daily. ALBUTEROL SULFATE HFA 90 MCG/* Inhale 2 Puffs as instructed * INSULIN ASPART U-100 100 UNI* Inject 5 Units subcutaneously* DIGOXIN 250 MCG TABLET Take 1 tablet by mouth once d* MOMETASONE-FORMOTEROL HFA 200* Inhale 1 Puff as instructed t* LANTUS SOLOSTAR U-100 INSULIN* INJECT 65 UNITS SUBCUTANEOUSL* ATORVASTATIN 40 MG TABLET Take 1 tablet by mouth once d* LISINOPRIL 5 MG TABLET Take 1 tablet by mouth once d* BLOOD SUGAR DIAGNOSTIC STRIPS Test 3 times per day. Insuli* PEN NEEDLE, DIABETIC 32 GAUGE* Use one needle for each dose.* BUSPIRONE 10 MG TABLET Take 1 tablet by mouth three * BLOOD-GLUCOSE METER KIT Glucose Meter of Choice - Kit* COMPOUNDED PRESCRIPTION Pull ups: 1 box: DX: CHF 11* COMPOUNDED PRESCRIPTION 2 plus depends: DX: debility,* DILTIAZEM SR 120 MG 24 HR CAP Take 1 capsule by mouth once * NITROGLYCERIN 0.4 MG SUBLINGU* Dissolve 1 tablet under the t* LANCETS 28 GAUGE Test 3 times per day. Insuli* * ALBUTEROL SULFATE 2.5 MG/3 ML* Inhale 1 vial via nebulizer 4* * WELLBUTRIN SR 150 MG TABLET, * Take one(1) tablet twice rigoberto* * COMPOUNDED PRESCRIPTION BD 1/2 cc syringe. Use as dir* * FREESTYLE SYSTEM KIT Test 3 times per day. Insuli* * COMPOUNDED PRESCRIPTION Pen tip needles. Use as direc* SPIRONOLACTONE 25 MG TABLET Take 1 tablet by mouth twice * * PRILOSEC 20 MG CAPSULE,DELAYE* Take one(1) capsule daily. Problem List As Of Date 10/26/2017 Noted Resolved HTN (hypertension) [I10] CAD (coronary artery disease) [I25.10] More... Asthma [J45.909] OBST CHRON BRONCHITIS WITH EXAC [J44.1] More... CONGESTIVE HEART FAILURE NOS [I50.9] LUMB/LUMBOSAC DISC DEGEN [M51.37] Diabetes mellitus (HCC) [E11.9] INVALID FOR*04/17/2016 Recurrent major depression in partial remission*INVALID FOR* More... MORBID OBESITY [E66.01] INVALID FOR* Mixed hyperlipidemia [E78.2] INVALID FOR* DYSPHAGIA, OROPHARYNGEAL [R13.12] INVALID FOR*04/13/2008 Pain in limb [M79.609] INVALID FOR*04/17/2016 Tobacco use disorder [F17.200] INVALID FOR*07/06/[address] scan [R93.8] INVALID FOR*04/17/2016 More... Cardiomyopathy, Nonischemic [I42.8] INVALID FOR* More... 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*INVALID FOR*04/17/2016 Ankle instability [M25.373] INVALID FOR*04/17/2016 Sprain of ankle, unspecified site [S93.409A] INVALID FOR* Tibial plateau fracture [S82.143A] INVALID FOR*04/17/2016 Paroxysmal Atrial fibrillation (HCC) [I48.91] INVALID FOR* Primary osteoarthritis of right knee [M17.11] INVALID FOR* Chronic pain of right knee [M25.561, G89.29] INVALID FOR*04/17/2016 Pain of lower extremity [M79.606] INVALID FOR*04/17/2016 Noncompliance [Z91.19] INVALID FOR* Schizophreniform disorder, chronic condition (H* Other instructions from your clinician: LIFESTYLE CHANGE A healthy lifestyle is the most important component of your overall treatment plan. Please give serious thought to the following areas and commit to making penitentiary changes. EAT A WHOLE FOOD, PLANT BASED DIET The nutrition your body gets is more important than the medicine you take. What matters most is the overall way you eat. We encourage you to minimize the use of animal products (which include dairy and all meats except fatty fish) and use whole, unprocessed plant foods to provide your protein, vitamins and other nutrients. We have a lot of information to share with you on this topic. This is not a diet. It is a way of life that you will keep with you. EXERCISE REGULARLY It is not important to spend hours in the gym, lifting weights and perspiring heavily. A total of 2-3 hours per week of aerobic (causing you to be moderately short of breath) exercise is sufficient to improve your health. Talk to us before you begin a new exercise program, if you have heart disease or experience shortness of breath or chest pain. REDUCE STRESS Chronic emotional and physical stress leads to disease. Ways of reducing stress include meditation, visualization, prayer, yoga and other forms of relaxation therapy. Consistency is the wade. Find a technique that works for you and do it every day. CULTIVATE RELATIONSHIPS Loneliness and isolation have a major negative impact on health. Seek out others who can love, care for and nurture you. Avoid hurtful relationships. MAINTAIN IDEAL BODY WEIGHT The best way to do this is to do all the things above. Our bodies naturally find the right weight if we keep moving and feed ourselves the right food. If your BMI is greater than 25, we strongly recommend a referral to a weight management program. Please speak to us or your family physician about available programs. AVOID NICOTINE IN ALL FORMS This includes all tobacco products, whether chewed, smoked, vaped, or rubbed on the skin. Smoking cessation programs, which can make use of tobacco substitutes, medications to suppress cravings and behavior management, are available. Please contact your family physician about programs in your area. Prescriptions ordered this encounter Disp Refills Start End SPIRONOLACTONE 25 MG TABLET 60 t* 11 10/26/2017 Class: Print RX Route: ORAL Sig: Take 1 tablet by mouth twice daily. Encounter Status:Closed by SHANE PITTS MD on 10/26/17 PULMONARY VISIT REPORT Observed: 10/08/2017 Status: F Source: [place] 11:30 AM [facility] REPOSITORY Pulmonary Medicine of [address] [place] [address] OFFICE VISIT Date of Service: 10/08/17 MR#: [id number] Acct: [id number] Name: DARYA LARKIN Judi Rep #: [id number] : 1955 Provider: Marylu Howell Age/Sex: 62/F Location: [facility] [place].PMW Status: Signed Assessment AND Plan 1. ABDULLAHI (obstructive sleep apnea) G47.33 Plan Discussed the risks of untreated sleep apnea, patient still noncompliant, not interested in therapy. 2. Chronic obstructive pulmonary disease, unspecified COPD type J44.9 Plan Does not appear to be an exacerbation of COPD today. No need for prednisone or antibiotic. Continue current maintenance medication. No additional testing at this time. Contact the office for any new or worsening symptoms. An acute visit and typically be arranged within 1-2 days. Follow-up as previously scheduled. Encourage annual flu shot. 3. Chronic respiratory failure with hypoxia J96.11 Plan Continue to use supplement oxygen as needed to maintain saturations 89-92%. No additional testing at this time. Follow-up with Dr. Prasad as previously scheduled. HPI HPI Comments Details: This is a 62 year old F, currently under the care of Camden Burger, here to follow up after a recent hospitalization at [facility], from September 06 - September 09, 2017 for acute exacerbation of COPD with acute on chronic hypoxic respiratory failure. The hospital stay was uncomplicated. 8 pages of hospital documentation was reviewed, and found to be significant for a chest x-ray completed on September 07 showing degenerative changes but no acute cardiopulmonary process. Upon discharge, the patient completed a 7 day course of Levaquin and a 12 day course of prednisone. Split night study completed on September 22, 2017 shows that the patient has severe obstructive sleep apnea, and unfortunately due to limitations of the split- night study there were not able to appropriately determine BiPAP settings. It was suggested the patient be started on a BiPAP of 8/4. The patient did not wear the BiPAP for the remainder of the study, therefore insurance coverage denied set up of the device until a complete titration study can be obtained. Today, she reports the office in a wheelchair and on room air. She believes she has returned to baseline with regards to her respiratory status. She is using her Symbicort 2 puffs twice daily. She reports rinsing her mouth out after each use. She denies any medication side effects such as sore throat or thrush. She is currently using her albuterol rescue inhaler 1-2 times daily. She is using her DuoNeb's 2 times daily. She continues to experience shortness of breath on exertion. The albuterol nebulizers to relieve her from the shortness of breath temporarily. She has an occasional dry cough. She denies any wheezing or chest tightness. She denies any fever, chills or body aches. She denies any chest pain or palpitations. See complete review of systems. She is currently residing in a long-term. Unfortunately, she continues to smoke cigarettes. Intake Vital Signs10/08/17 Height 5 ft 1 in 10/08/17 Blood Pressure 101/61 10/08/17 Blood Pressure Location Lt brachial 10/08/17 Blood Pressure Position Sitting 10/08/17 Respiratory Rate 18 Intake Visit Reasons: Hospital FU Chief Complaint: Patient felt more SOB Accompanied by: Self Allergies venom-honey bee [bee venom (honey bee)] Allergy (Verified 09/29/17 08:09) Swelling levofloxacin [From Levaquin] Adverse Reaction (Verified 09/29/17 08:09) Nausea oxycodone HCl [From Percocet] Adverse Reaction (Verified 09/29/17 08:09) Nausea Penicillins Adverse Reaction (Verified 09/29/17 08:09) Nausea/Vom/Diarrhea Medications Albuterol Aerosols [Ventolin Aerosols] 2.5 mg INHALATION Q4H PRN PRN 05/12/17 [History Confirmed 09/29/17] Atorvastatin Calcium [Lipitor] 40 mg PO QHS 05/12/17 [History Confirmed 09/29/17] Budesonide/Formoterol 160/4.5 [Symbicort 160/4.5 Mcg Inhaler (SP)] 2 puff INHALATION BID 05/12/17 [History Confirmed 09/29/17] Bupropion HCl [Bupropion HCl Sr] 150 mg PO BID 05/12/17 [History Confirmed 09/29/17] Buspirone HCl 10 mg PO TID 05/12/17 [History Confirmed 09/29/17] Digoxin 250 mcg PO DAILY 05/12/17 [History Confirmed 09/29/17] Diltiazem [Cardizem] 120 mg PO BID 05/12/17 [History Confirmed 09/29/17] Famotidine [Pepcid] 20 mg PO BID 05/12/17 [History Confirmed 09/29/17] Furosemide [Lasix] 40 mg PO BID 05/12/17 [History Confirmed 09/29/17] Glucagon,Human Recombinant [Glucagon Emergency Kit] 1 mg IM PRN PRN 05/12/17 [History Confirmed 09/29/17] Guaifenesin [Mucinex] 1,200 mg PO BID 05/12/17 [History Confirmed 09/29/17] Insulin Lispro [Humalog] 12 unit SQ TIDCM 05/12/17 [History Confirmed 09/29/17] Ipratropium/Albuterol Sulfate [Duoneb] 3 ml INHALATION Q4H.RT 05/12/17 [History Confirmed 09/29/17] Lisinopril [Prinivil] 5 mg PO DAILY 05/12/17 [History Confirmed 09/29/17] Potassium Chloride [K-Dur] 10 meq PO BID 05/12/17 [History Confirmed 09/29/17] Propranolol HCl [Inderal (Beta Lou)] 10 mg PO BID 05/12/17 [History Confirmed 09/29/17] Rivaroxaban [Xarelto] 20 mg PO DAILY 05/12/17 [History Confirmed 09/29/17] Sennosides/Docusate Sodium [Senna-Docusate Sodium Tablet] 2 tab PO DAILY PRN PRN 05/12/17 [History Confirmed 09/29/17] Hydrocodone Bitart/Apap 5-325 [[place] 5/325] 1 tab PO Q6H PRN PRN 08/11/17 [History Confirmed 09/29/17] Mag Hydrox/Al Hydrox/Simeth [Mylanta II] 30 ml PO Q6H PRN PRN 08/11/17 [History Confirmed 09/29/17] Polyethylene Glycol 3350 [Miralax] 17 gm PO PRN PRN 08/11/17 [History Confirmed 09/29/17] docusate sodium 100 mg capsule 100 mg PO QDAY 09/01/17 [History Confirmed 09/29/17] gabapentin 100 mg capsule 100 mg PO TID cap 09/01/17 [History Confirmed 09/29/17] nystatin 100,000 unit/mL oral suspension 5 ml MUCOUS MEMBRANE TID #250 ml 09/01/17 [Rx Confirmed 09/29/17] Insulin Glargine,Hum.rec.anlog [Lantus Solostar] 55 unit SQ QHS 09/06/17 [History Confirmed 09/29/17] Prednisone See Taper PO DAILY #30 tab 09/09/17 [Rx Confirmed 09/29/17] levoFLOXacin tablet [Levaquin tablet] 250 mg PO DAILY@0600 #3 tab 09/09/17 [Rx Confirmed 09/29/17] PFSH Medical History Hypersomnia (Chronic) Chest pain (Acute) Anemia (Chronic) Hypomagnesemia (Chronic) HTN (hypertension) (Chronic) Morbid obesity with BMI of 40.0-44.9, adult (Chronic) COPD (chronic obstructive pulmonary disease) (Acute) Chronic pain (Chronic) Chronic atrial fibrillation (Chronic) Chronic hypoxemic respiratory failure (Chronic) Hyperlipemia (Chronic) Type 2 diabetes mellitus (Chronic) GERD (gastroesophageal reflux disease) (Chronic) Anxiety (Chronic) Insomnia (Chronic) Osteoporosis (Chronic) Cardiomyopathy (Ruled-out) Left ankle pain (Inactive) Non-compliance (Inactive) Surgical History Cataract extraction status (Resolved) History of lumbar surgery (Resolved) History of tonsillectomy and adenoidectomy (Resolved) History of total hysterectomy (Resolved) Family History Sister Arthritis Diabetes Father Cancer throat Aunt Diabetes Social History Smoking Status: Current every day smoker second hand exposure: Yes alcohol intake: never substance use type: does not use caffeine: Yes Type: coffee what type of physical activity do you participate in: none Review of Systems Const CONSTITUTIONAL: Negative anorexia, body ache, chills, daytime sleepiness, fever(s), night sweats, oral thrush, stops breathing during sleep, weight loss, sleeping in chair, fatigue, weight loss, weight gain, frequent colds, seasonal allergies, other, headache(s) or orthopnea EETM Ear Nose Throat Mouth: Positive hearing normal; negative hard of hearing, hoarseness, dry mouth in morning, change in vision, itchy eyes, eye pain, swallowing Difficulty, ear pain, nose bleed, headache(s), mouth pain, nasal congestion, nasal discharge, post nasal drip, sinus pain, sinus pressure, sore throat or other Cardio Cardiovascular: Negative chest pain, chest pain at rest, chest pain with activity, irregular heart rhythm, edema, shortness of breath when lying down, palpitations, murmur or other Resp Respiratory: Positive as per HPI, shortness of breath shortness of breath: Positive with activity and cough cough: Positive non-productive; negative pain with cough, wheezing, chest congestion, chest tightness, pain on inspiration, inhalers, increase use of rescue inhalers, snoring, apnea or other Gastro Gastrointestional: Negative bloody stools, change in appetite, difficulty swallowing, reflux, hematemesis, melena stool, loose stool, constipation or other Genitourinary: Negative blood in urine, nocturia, pain with urination or other Musc Musculoskeletal: Negative body pain, back pain, neck pain or other Skin/Breast Skin/Breast: Negative dry skin, itching, rash, unusual bruising, breast lump or other Neuro Neurological: Negative restless legs, confusion, weakness or other Psych Psychocological: Negative abnormal sleep pattern, anxiety, thoughts of hurting self/others, hopelessness or other Lymph Lymphatic: Negative easy bleeding, easy bruising, swollen lymph nodes or other Exam Const Constitutional: Positive cooperative, in no acute respiratory distress, healthy appearing, well developed, well nourished, smells of smoke, obese and poor hygiene Head Head: Positive normocephalic and atraumatic; negative cyanosis of lips/distal nose Eyes Eye: Positive clear conjunctiva; negative scleral abnormality Ears Ear: Positive hearing normal and external ears normal; negative hard of hearing Nose Nose: Positive external nose normal; negative epistaxis Mouth Mouth: Positive oral mucosae normal, posterior oropharynx is adequate and poor dentition; negative post nasal drip or oral thrush present Mallampati Score: II: Mallampati Score Neck Neck: Positive normal visual inspection, full ROM, trachea midline and thick neck; negative lymphadenopathy, JVD or tender Chest Wall Chest: Positive normal inspection of the chest and symmetric chest movement; negative increased A/P diameter Resp lung sounds: Positive clear to auscultation, good air exchange, normal expiratory time and normal respiratory effort; negative diminished, wheezes, rhonchi, rales, dullness to percussion or wheeze present on forced exhalation Cardio Cardiac: Positive regular rate, regular rhythm, S1 normal and S2 normal; negative murmur GI GI: Positive normal to inspection and obese; negative distended Genitourinary: Positive deferred [facility] Musculoskeletal: Positive ROM normal and in a wheelchair; negative kyphosis or scoliosis Skin Pulmonary Skin Exam: Positive intact; negative rash Pulses Pulse: Yes radial pulses present Extremities Extremities: Yes capillary refill normal, No clubbing, Yes edema Location: lower extremity location: Bilateral Neuro Neurologic: Yes understands questions Lymph Lymphatic: No lymphadenopathy Psych Appearance: Positive grossly normal, eye contact and well kempt Mental Status: Positive mental status grossly normal Mood: Positive labile mood Affect: Positive irritable affect Coding Level of Care Code Off vis,est,level 3 Diagnoses ABDULLAHI (obstructive sleep apnea) G47.33 Chronic obstructive pulmonary disease, unspecified COPD type J44.9 COPD type: unspecified COPD Chronic respiratory failure with hypoxia J96.11 10/08/17 1130 <Electronically signed by Marylu REID> Date Marylu REID Cosigner Signature: Date (if applicable) CC: Camden Burger DISCHARGE SUMMARY Observed: 09/09/2017 Status: F Source: [place] 1:39 PM [facility] REPOSITORY [facility] Medical Records Department [address] [place] [address] Discharge Summary 09/09/17 1158 MR#: [id number] Acct: [id number] Name: DARYA LARKIN Rep #: [id number] : 1955 62 From: Marie REID PCP: Camden Burger Status: ADM IN Location: [facility] [id number] <Marie Hoover - Last Filed: 09/09/17 12:03> Discharge Date and Diagnosis Date of Admission: 09/06/17 Date of Discharge: 09/09/17 - Primary Discharge Diagnosis 1. Acute COPD exacerbation on chronic severe COPD with chronic hypoxic respiratory failure-acute respiratory failure ruled out - Secondary Discharge Diagnosis Chronic Problems (Last Reviewed 09/07/17 @ 03:18 by Chau López MD) Tobacco dependence due to cigarettes (Chronic) Non-compliance (Chronic) Microcytic anemia (Chronic) Hypersomnia (Chronic) Anemia (Chronic) Hypomagnesemia (Chronic) HTN (hypertension) (Chronic) Morbid obesity with BMI of 40.0-44.9, adult (Chronic) Chronic pain (Chronic) Chronic atrial fibrillation (Chronic) Chronic hypoxemic respiratory failure (Chronic) non-compliant with oxygen Hyperlipemia (Chronic) ECHO in June of 2017 showed a 75% EF Type 2 diabetes mellitus (Chronic) uncontrolled GERD (gastroesophageal reflux disease) (Chronic) Anxiety (Chronic) Insomnia (Chronic) Hospital Course and Treatment Imaging Results: Diagnostic Data Chest X-Ray 09/07/17 05:10 IMPRESSION: Degenerative changes, as described above. No demonstrated acute cardiopulmonary process. Electronically Signed: Rimma Carreon MD at 12:23 EDT Tel , Service support , Operations: None Procedures: None Summary of Care Provided: Patient is a 61-year-old female admitted 07/10/2017 due to syncope. She has a past medical history of COPD, chronic atrial fibrillation, hypertension, type 2 diabetes mellitus, hyperlipidemia, GERD, anxiety, chronic hypoxic respiratory failure, obesity, cardiomyopathy. 1. Acute COPD exacerbation on chronic severe COPD with chronic hypoxic respiratory failure-chest x-ray on admission shows no acute cardiopulmonary process. Continue home albuterol and DuoNeb aerosol and inhaler regimen. Patient weaned off of oxygen and stable on room air. She has supplemental oxygen available at assisted living facility. Patient will be discharged on prednisone taper and oral Levaquin 250 mg for 3 days. Patient's assisted living facility reports patient does not wear oxygen available at facility and is frequently outside smoking. Encourage smoking cessation. Follow-up with Marylu Howell NP pulmonary medicine in 1-2 weeks. 2. Chronic atrial fibrillation-rate controlled. Continue Cardizem, propanolol, Xarelto. 4. Type 2 diabetes mellitus-continue home insulin regimen. 5. Hypertension-stable, continue home Cardizem, Lasix, lisinopril, propanolol, digoxin regimen. 6. Hyperlipidemia-continue statin. 7. History of mild cardiomyopathy-recent echo 07/11/17 with EF 75%. 8. GERD-continue home famotidine regimen. 9. Anxiety-continue home buspirone, bupropion regimen. 10. Obesity-encouraged diet and lifestyle modifications. 11. Tobacco dependence-encourage smoking cessation. General: Alert, Oriented x3, Cooperative, No apparent distress HEENT: Atraumatic, PERRLA, EOMI, Normocephalic Neck: Supple, No JVD, Negative Carotid Bruits Lungs: Diminished, Wheezes Cardiovascular: - - Atrial fibrillation, rate controlled. Abdomen: Bowel Sounds Present, Soft, Non Tender, Non-Distended, Obese Extremities: No clubbing, No cyanosis, No edema, Capillary Refill Less than 3 Seconds Skin: No rashes, No breakdown Musculoskeletal: No Tenderness to Palpation of Joints or Extremities Neurological: Cranial nerves II-XII grossly intact, Neuro grossly intact Psych/Mental Status: Normal Affect, Appropriate Patient seen exam prior to discharge. Physical assessment as noted above. Patient is stable for discharge to assisted living facility. This patient was seen by FRANKLIN Cardenas under the supervision of Dr. Fabian. Discharge Diet: 1800 Calorie Control Diet, Carb Control Diet Discharge Activity: Return to Normal Activity Call your doctor if you observe: Fever of 101 or Higher, Shortness of breath, Dizziness, Fainting spells Home Medications: Medications to take at Discharge Albuterol Aerosols [Ventolin Aerosols] 2.5 mg INHALATION Q4H PRN PRN 05/12/17 Atorvastatin Calcium [Lipitor] 40 mg PO QHS 05/12/17 Budesonide/Formoterol 160/4.5 [Symbicort 160/4.5 Mcg Inhaler (SP)] 2 puff INHALATION BID 05/12/17 Bupropion HCl [Bupropion HCl Sr] 150 mg PO BID 05/12/17 Buspirone HCl 10 mg PO TID 05/12/17 Digoxin 250 mcg PO DAILY 05/12/17 Diltiazem [Cardizem] 120 mg PO BID 05/12/17 Famotidine [Pepcid] 20 mg PO BID 05/12/17 Furosemide [Lasix] 40 mg PO BID 05/12/17 Glucagon,Human Recombinant [Glucagon Emergency Kit] 1 mg IM PRN PRN 05/12/17 Guaifenesin [Mucinex] 1,200 mg PO BID 05/12/17 Insulin Lispro [Humalog] 12 unit SQ TIDCM 05/12/17 Ipratropium/Albuterol Sulfate [Duoneb] 3 ml INHALATION Q4H.RT 05/12/17 Lisinopril [Prinivil] 5 mg PO DAILY 05/12/17 Potassium Chloride [K-Dur] 10 meq PO BID 05/12/17 Propranolol HCl [Inderal (Beta Lou)] 10 mg PO BID 05/12/17 Rivaroxaban [Xarelto] 20 mg PO DAILY 05/12/17 Sennosides/Docusate Sodium [Senna-Docusate Sodium Tablet] 2 tab PO DAILY PRN PRN 05/12/17 Hydrocodone Bitart/Apap 5-325 [[place] 5/325] 1 tab PO Q6H PRN PRN 08/11/17 Mag Hydrox/Al Hydrox/Simeth [Mylanta II] 30 ml PO Q6H PRN PRN 08/11/17 Polyethylene Glycol 3350 [Miralax] 17 gm PO PRN PRN 08/11/17 docusate sodium 100 mg capsule 100 mg PO QDAY 09/01/17 gabapentin 100 mg capsule 100 mg PO TID cap 09/01/17 nystatin 100,000 unit/mL oral suspension 5 ml MUCOUS MEMBRANE TID #250 ml 09/01/17 Insulin Glargine,Hum.rec.anlog [Lantus Solostar] 55 unit SQ QHS 09/06/17 Prednisone See Taper PO DAILY #30 tab 09/09/17 levoFLOXacin tablet [Levaquin tablet] 250 mg PO DAILY@0600 #3 tab 09/09/17 Following Prescrptions Were Given to Patient: levoFLOXacin tablet [Levaquin tablet] 250 mg PO DAILY@0600 #3 tab Prednisone See Taper PO DAILY #30 tab Primary Care Physician: Camden Burger [Primary Care Provider] - Please follow up with your Primary Care Physician in: 1 Week Please Follow Up With: Marylu Howell NP-C When: 1-2 Weeks Disposition: Asstd Living/Non-Skill MD Minutes spent on discharge:: 35 Patient Condition:: Stable Medical Necessity - Tobacco Use Smoking Status: Current every day smoker Meaningful Use Info Meaningful Use Diagnoses (Choose all that apply): None applicable <Jessica Fabian - Last Filed: 09/09/17 13:38> Discharge Date and Diagnosis - Secondary Discharge Diagnosis Chronic Problems (Last Reviewed 09/07/17 @ 03:18 by Chau López MD) Tobacco dependence due to cigarettes (Chronic) Non-compliance (Chronic) Microcytic anemia (Chronic) Hypersomnia (Chronic) Anemia (Chronic) Hypomagnesemia (Chronic) HTN (hypertension) (Chronic) Morbid obesity with BMI of 40.0-44.9, adult (Chronic) Chronic pain (Chronic) Chronic atrial fibrillation (Chronic) Chronic hypoxemic respiratory failure (Chronic) non-compliant with oxygen Hyperlipemia (Chronic) ECHO in June of 2017 showed a 75% EF Type 2 diabetes mellitus (Chronic) uncontrolled GERD (gastroesophageal reflux disease) (Chronic) Anxiety (Chronic) Insomnia (Chronic) Hospital Course and Treatment Summary of Care Provided: Hospitalist note: Discharge summary above reviewed as well as physical examination and I agree with above discharge and treatment plan. Patient was admitted for worsening shortness of breath and wheezing as well as cough and she was found to have acute COPD exacerbation in context of history of severe COPD and chronic hypoxic respiratory failure. A chest x-ray showed no acute findings, pneumonia ruled out. His routine blood work was remarkable for leukocytosis due to steroids, otherwise was normal. She was treated with IV steroids, bronchodilators and antibiotics. This patient is known to be noncompliant, continued to smoke and not using her oxygen at home. With above-mentioned treatment, her symptoms improved and she remained stable on 1 L of oxygen. Her other vital signs were stable. Patient has been back and forth regarding having an oxygen at home. Patient discharged home in a stable medical condition, discharged on a course of prednisone, discharged on Levaquin, recommended to use oxygen at the assisted living facility at 1-2 L, recommended follow-up with pulmonology in 1-2 weeks and follow-up with PCP in 1 week. - Physical Exam General: Alert, Oriented x3, Cooperative, mildly short of breath. HEENT: Atraumatic, PERRLA, EOMI. Neck: Supple, No JVD, Negative Carotid Bruits, Trachea Midline, Thyroid Normal. Lungs: Decreased breath sounds bilateral, bilateral expiratory wheezes, no rhonchi or crackles.. Cardiovascular: irregular rate, Normal S1, Normal S2, PMI Normal. Abdomen: Bowel Sounds Present, Soft, Non Tender, Non-Distended, No Hepato-splenomegaly. Extremities: No clubbing, No cyanosis, No edema Skin: No rashes, No breakdown Neurological: Neuro grossly intact. This note was generated with Inno[employer] dictation software. It may contain incorrect words, spelling, and punctuation that were not noted in checking the note before signing. Minutes spent on discharge:: 27 Patient Condition:: Stable Medical Necessity - Tobacco Use Smoking Status: Current every day smoker Tobacco Use: Cigarettes Meaningful Use Info Meaningful Use Diagnoses (Choose all that apply): None applicable Code Visit Inpatient E AND M: 29435 Disch Hosp 09/09/17 1203 <Electronically signed by Marie REID> Date Marie REID 09/09/17 1339<Electronically signed by Jessica Fabian MD> Cosigner Signature (if applicable): Date Jessica Fabian MD CC: FRANKLIN Hoover; Camden Burger; Marylu Howell; Jessica Fabian; Camden Burger MD Signed DISCHARGE INSTRUCTION Observed: 09/09/2017 Status: F Source: [place] 11:58 AM [facility] REPOSITORY [facility] Medical Records Department [address] [place] [address] Instructions for Home/Discharge Instructions 09/09/17 1157 MR#: [id number] Acct: [id number] Name: DARYA LARKIN Rep #: [id number] : 1955 62 From: Marie REID PCP: Camden Burger Status: ADM IN You will use the following diet at home:: Calorie/Carbohydrate Controlled (specify 1200, 1400, etc) Discharge Activity: Return to Normal Activity Call your doctor if you observe: Fever of 101 or Higher, Shortness of breath, Dizziness, Fainting spells Allergies/Adverse Reactions: Allergies venom-honey bee [bee venom (honey bee)] Allergy (Verified 09/06/17 22:18) Swelling levofloxacin [From Levaquin] Adverse Reaction (Verified 09/06/17 22:18) Nausea oxycodone HCl [From Percocet] Adverse Reaction (Verified 09/06/17 22:18) Nausea Penicillins Adverse Reaction (Verified 09/06/17 22:18) Nausea/Vom/Diarrhea Medications to take at Discharge Albuterol Aerosols [Ventolin Aerosols] 2.5 mg INHALATION Q4H PRN PRN 05/12/17 Atorvastatin Calcium [Lipitor] 40 mg PO QHS 05/12/17 Budesonide/Formoterol 160/4.5 [Symbicort 160/4.5 Mcg Inhaler (SP)] 2 puff INHALATION BID 05/12/17 Bupropion HCl [Bupropion HCl Sr] 150 mg PO BID 05/12/17 Buspirone HCl 10 mg PO TID 05/12/17 Digoxin 250 mcg PO DAILY 05/12/17 Diltiazem [Cardizem] 120 mg PO BID 05/12/17 Famotidine [Pepcid] 20 mg PO BID 05/12/17 Furosemide [Lasix] 40 mg PO BID 05/12/17 Glucagon,Human Recombinant [Glucagon Emergency Kit] 1 mg IM PRN PRN 05/12/17 Guaifenesin [Mucinex] 1,200 mg PO BID 05/12/17 Insulin Lispro [Humalog] 12 unit SQ TIDCM 05/12/17 Ipratropium/Albuterol Sulfate [Duoneb] 3 ml INHALATION Q4H.RT 05/12/17 Lisinopril [Prinivil] 5 mg PO DAILY 05/12/17 Potassium Chloride [K-Dur] 10 meq PO BID 05/12/17 Propranolol HCl [Inderal (Beta Lou)] 10 mg PO BID 05/12/17 Rivaroxaban [Xarelto] 20 mg PO DAILY 05/12/17 Sennosides/Docusate Sodium [Senna-Docusate Sodium Tablet] 2 tab PO DAILY PRN PRN 05/12/17 Hydrocodone Bitart/Apap 5-325 [[place] 5/325] 1 tab PO Q6H PRN PRN 08/11/17 Mag Hydrox/Al Hydrox/Simeth [Mylanta II] 30 ml PO Q6H PRN PRN 08/11/17 Polyethylene Glycol 3350 [Miralax] 17 gm PO PRN PRN 08/11/17 docusate sodium 100 mg capsule 100 mg PO QDAY 09/01/17 gabapentin 100 mg capsule 100 mg PO TID cap 09/01/17 nystatin 100,000 unit/mL oral suspension 5 ml MUCOUS MEMBRANE TID #250 ml 09/01/17 Insulin Glargine,Hum.rec.anlog [Lantus Solostar] 55 unit SQ QHS 09/06/17 Prednisone See Taper PO DAILY #30 tab 09/09/17 levoFLOXacin tablet [Levaquin tablet] 250 mg PO DAILY@0600 #3 tab 09/09/17 The following prescriptions were given: levoFLOXacin tablet [Levaquin tablet] 250 mg PO DAILY@0600 #3 tab Prednisone See Taper PO DAILY #30 tab Primary Care Physician: Camden Burger [Primary Care Provider] - Please follow up with your Primary Care Physician in: 1 Week Test Results: Test results from this visit will be discussed in further detail at your follow-up appointment, if applicable. Please Follow Up With: Marylu Howell NP-C When: 1-2 Weeks Proposed Discharge Date: 09/09/17 09/09/17 1158 <Electronically signed by Marie REID> Date Marie REID CC: Camden Burger; Camden Burger MD BEDSIDE GLUCOSE Collected: 09/09/2017 Status: F Source: [place] 11:04 AM [facility] REPOSITORY TYPE CODE TESTS RESULT OUT OF REFERENCE UNITS RANGE LAB L501.080 70-110 mg/dL High BEDSIDE GLU 255 Result Comment: MANAGEMENT OF PATIENT CARE PER NURSING PROTOCOL Performed By: #### L501.080 #### [facility] Point of Care [address] [place] [address] BEDSIDE GLUCOSE Collected: 09/09/2017 Status: F Source: [place] 6:50 AM [facility] REPOSITORY TYPE CODE TESTS RESULT OUT OF RANGE REFERENCE UNITS LAB L501.080 70-110 mg/dL Normal BEDSIDE GLU 83 Result Comment: MANAGEMENT OF PATIENT CARE PER NURSING PROTOCOL Performed By: #### L501.080 #### [facility] Point of Care [address] [place] [address] BEDSIDE GLUCOSE Collected: 09/08/2017 Status: F Source: [place] 10:08 PM [facility] REPOSITORY TYPE CODE TESTS RESULT OUT OF REFERENCE UNITS RANGE LAB L501.080 70-110 mg/dL High BEDSIDE GLU 262 Result Comment: MANAGEMENT OF PATIENT CARE PER NURSING PROTOCOL Performed By: #### L501.080 #### [facility] Point of Care [address] [place] [address] BEDSIDE GLUCOSE Collected: 09/08/2017 Status: F Source: [place] 4:48 PM [facility] REPOSITORY TYPE CODE TESTS RESULT OUT OF REFERENCE UNITS RANGE LAB L501.080 70-110 mg/dL High BEDSIDE GLU 279 Result Comment: MANAGEMENT OF PATIENT CARE PER NURSING PROTOCOL Performed By: #### L501.080 #### [facility] Point of Care [address] [place] [address] 12 LEAD ELECTROCARDIOGRAM Observed: 09/08/2017 Status: F Source: [place] 1:14 PM [facility] REPOSITORY [facility] [address] [place] [address] 12 Lead EKG 09/06/172238 MR#: [id number] Acct: [id number] Name: DARYA LARKIN Rep #: [id number] : 1955 62 From: Camden Mccormick MD Attending Dr: Jessica Fabian Status: ADM IN Ordering Dr: Santo Parker MD Date: 09/06/17 Location: U Sex: F C Admitted: 09/07/17 Test Reason : SOB Blood Pressure : / mmHG Vent. Rate : 068 BPM Atrial Rate : 277 BPM P-R Int : 000 ms QRS Dur : 084 ms QT Int : 344 ms P-R-T Axes : 000 069 -47 degrees QTc Int : 365 ms Atrial fibrillation Nonspecific ST and T wave abnormality Abnormal ECG Confirmed by SPENCER DELGADO, CAMDEN ([id number]), photography editor DIANA GALVEZ ([id number]) on 09/08/2017 1:14:23 PM Referred By: NIECY Confirmed By:CAMDEN MCCORMICK MD 09/08/17 2507 Date Camden Mccormick MD CC: Camden Burger; Jessica Fabian; Santo Parker MD; Camden Burger MD Signed BEDSIDE GLUCOSE Collected: 09/08/2017 Status: F Source: [place] 11:23 AM [facility] REPOSITORY TYPE CODE TESTS RESULT OUT OF REFERENCE UNITS RANGE LAB L501.080 70-110 mg/dL High BEDSIDE GLU 390 Result Comment: MANAGEMENT OF PATIENT CARE PER NURSING PROTOCOL Performed By: #### L501.080 #### [facility] Point of Care [address] [place], [place] [id number] BEDSIDE GLUCOSE Collected: 09/08/2017 Status: F Source: [place] 6:51 AM [facility] REPOSITORY TYPE CODE TESTS RESULT OUT OF REFERENCE UNITS RANGE LAB L501.080 70-110 mg/dL High BEDSIDE GLU 253 Result Comment: MANAGEMENT OF PATIENT CARE PER NURSING PROTOCOL Performed By: #### L501.080 #### [facility] Point of Care [address] [place], [place] [id number] CBC-COMPLETE BLOOD CNT Collected: 09/08/2017 Status: F Source: [place] NO DIFF 5:33 AM [facility] REPOSITORY TYPE CODE TESTS RESULT OUT OF RANGE REFERENCE UNITS LAB L100.1000 4.4-11.0 K/mm3 High WBC 15.6 LAB L100.1200 4.2-5.4 M/mm3 Normal RBC 4.30 LAB L100.1300 12.0-15.0 g/dl Low HGB 11.3 LAB L100.1400 37-47 % Low HCT 35.2 LAB L100.1500 81-99 fL Normal MCV 81.9 LAB L100.1600 27.0-32.0 pg Low MCH 26.3 LAB L100.1700 32-36 g/gl Normal MCHC 32.1 LAB L100.1810 11.6-14.6 % High RDW CV 18.2 LAB L100.1820 35.1-43.9 fl High RDW SD 54.3 LAB L100.1900 150-450 K/mm3 Normal PLT 298 LAB L100.2000 6.2-12.0 fl Normal MPV 10.9 Performed By: #### L100.0500 #### [facility] [address] [place], [place], [id number] BASIC METABOLIC Collected: 09/08/2017 Status: F Source: [place] PROFILE (BMP) 5:33 AM [facility] REPOSITORY TYPE CODE TESTS RESULT OUT OF RANGE REFERENCE UNITS LAB L501.0100 74-106 mg/dL High GLU 238 Result Comment: Glucose result greater than or equal to 200 mg/dL suggests DIABETES MELLITUS per A.D.A. criteria. Please note revised GLUCOSE reference range effective 2017. LAB L501.1000 7-18 mg/dL High BUN 23 LAB L501.1100 0.55-1.02 mg/dL Normal CREAT,SERUM 0.81 Result Comment: The validity of the calculated GFR AND GFRAA in patients over 70 years has not been determined. Clinical correlation is essential. LAB L501.1110 >60 mL/min Normal EST GFR 76 Result Comment: Non- GFR Calc LAB L501.1115 >60 mL/min Normal EST GFR - AA 92 Result Comment: GFR Calc LAB L501.1255 ml/min Normal Estimated CRCL 54.34 LAB L501.1300 10-20 RATIO High BUN/CRE 28.4 LAB L501.2200 8.5-10 mg/dL Normal .1 CA 8.8 LAB L501.5300 136-14 mmol/L Low 5 NA 135 LAB L501.5600 3.5-5. mmol/L Normal 1 K 4.2 LAB L501.5900 98-107 mmol/L Normal CL 101 LAB L501.6100 21.0-3 mmol/L Normal 2.0 CO2 28.0 LAB L501.6200 5-15 Normal GAP 6 Performed By: #### L500.2500 #### [facility] [address] [facility] [place], [place], [address] BEDSIDE GLUCOSE Collected: 09/07/2017 Status: F Source: [place] 10:53 PM [facility] REPOSITORY TYPE CODE TESTS RESULT OUT OF REFERENCE UNITS RANGE LAB L501.080 70-110 mg/dL High BEDSIDE GLU 274 Result Comment: MANAGEMENT OF PATIENT CARE PER NURSING PROTOCOL Performed By: #### L501.080 #### [facility] Point of Care [address] [place], [place] [address] BEDSIDE GLUCOSE Collected: 09/07/2017 Status: F Source: [place] 4:26 PM [facility] REPOSITORY TYPE CODE TESTS RESULT OUT OF REFERENCE UNITS RANGE LAB L501.080 70-110 mg/dL High BEDSIDE GLU 367 Result Comment: MANAGEMENT OF PATIENT CARE PER NURSING PROTOCOL Performed By: #### L501.080 #### [facility] Point of Care [address] [place] [address] BEDSIDE GLUCOSE Collected: 09/07/2017 Status: F Source: [place] 11:26 AM [facility] REPOSITORY TYPE CODE TESTS RESULT OUT OF REFERENCE UNITS RANGE LAB L501.080 70-110 mg/dL High BEDSIDE GLU 360 Result Comment: MANAGEMENT OF PATIENT CARE PER NURSING PROTOCOL Performed By: #### L501.080 #### [facility] Point of Care [address] [place], [place] [address] BEDSIDE GLUCOSE Collected: 09/07/2017 Status: F Source: [place] 6:52 AM [facility] REPOSITORY TYPE CODE TESTS RESULT OUT OF REFERENCE UNITS RANGE LAB L501.080 70-110 mg/dL High BEDSIDE GLU 309 Result Comment: MANAGEMENT OF PATIENT CARE PER NURSING PROTOCOL Performed By: #### L501.080 #### [facility] Point of Care [address] [place] [address] CBC W/DIFF, AUTOMATED Collected: 09/07/2017 Status: F Source: [place] 6:10 AM [facility] REPOSITORY TYPE CODE TESTS RESULT OUT OF RANGE REFERENCE UNITS LAB L100.1000 4.4-11.0 K/mm3 High WBC 13.5 LAB L100.1200 4.2-5.4 M/mm3 Normal RBC 4.37 LAB L100.1300 12.0-15.0 g/dl Low HGB 11.5 LAB L100.1400 37-47 % Low HCT 36.1 LAB L100.1500 81-99 fL Normal MCV 82.6 LAB L100.1600 27.0-32.0 pg Low MCH 26.3 LAB L100.1700 32-36 g/gl Low MCHC 31.9 LAB L100.1810 11.6-14.6 % High RDW CV 18.5 LAB L100.1820 35.1-43.9 fl High RDW SD 55.7 LAB L100.1900 150-450 K/mm3 Normal PLT 310 LAB L100.2000 6.2-12.0 fl Normal MPV 10.9 LAB L100.2100 47-70 % High NEUT% 87.8 LAB L100.2200 19-41 % Low LY% 10.6 LAB L100.2300 0-10 % Normal MONO% 0.9 LAB L100.2400 0-5 % Normal EO% 0.1 LAB L100.2500 0-1 % Normal BASO% 0.1 LAB L100.2550 0.0-0.9 % Normal IM GRAN % 0.500 Result Comment: IG% - Immature Granulocytes (promyelocytes, myelocytes and metamyelocytes) > 1% indicates that a LEFT SHIFT is Present. LAB L100.2620 2.0-7.7 X10 3/uL High Absolute Neut 11.9 LAB L100.2720 0.83-4.51 X10 3/ul Normal Absolute Lymph 1.43 Performed By: #### L100.0100 #### [facility] [address] [place], [address] COMPREHENSIVE METABOLIC Collected: 09/07/2017 Status: F Source: [facility] 6:10 AM [facility] REPOSITORY TYPE CODE TESTS RESULT OUT OF RANGE REFERENCE UNITS LAB L501.0100 74-106 mg/dL High GLU 331 Result Comment: Glucose result greater than or equal to 200 mg/dL suggests DIABETES MELLITUS per A.D.A. criteria. Please note revised GLUCOSE reference range effective 2017. LAB L501.1000 7-18 mg/dL High BUN 25 LAB L501.1100 0.55-1.02 mg/dL Normal CREAT,SERUM 0.98 Result Comment: The validity of the calculated GFR AND GFRAA in patients over 70 years has not been determined. Clinical correlation is essential. LAB L501.1110 >60 mL/min Normal EST GFR 61 Result Comment: Non- GFR Calc LAB L501.1115 >60 mL/min Normal EST GFR - AA 74 Result Comment: GFR Calc LAB L501.1255 ml/min Normal Estimated CRCL 44.91 LAB L501.1300 10-20 RATIO High BUN/CRE 25.5 LAB L501.1500 6.4-8. g/dL Normal 2 T PROT 6.4 LAB L501.1800 3.2-5. g/dL Low 0 ALB 3.1 LAB L501.1950 2.2-4. g/dL Normal 2 GLOB 3.3 LAB L501.2000 0.9-2. RATIO Normal 4 A/G 0.9 LAB L501.2200 8.5-10 mg/dL Normal .1 CA 8.9 LAB L501.4100 15-37 U/L Low AST 13 LAB L501.4305 45-117 U/L Normal ALK P 102 LAB L501.4405 13-56 U/L Normal ALT 25 LAB L501.4600 0.20-1 mg/dL Normal .00 T BILI 0.30 LAB L501.5300 136-14 mmol/L Normal 5 NA 138 LAB L501.5600 3.5-5. mmol/L Normal 1 K 4.9 LAB L501.5900 98-107 mmol/L Normal CL 101 LAB L501.6100 21.0-3 mmol/L Normal 2.0 CO2 25.0 LAB L501.6200 5-15 Normal GAP 12 Performed By: #### L500.4050 #### [facility] [address] [place], [address] HISTORY AND PHYSICAL Observed: 09/07/2017 Status: F Source: [place] EXAM 3:24 AM [facility] REPOSITORY [facility] Medical Records Department [address] [place] [address] History and Physical 09/06/17 7907 MR#: [id number] Acct: [id number] Name: DARYA LARKIN Rep #: [id number] : 1955 62 From: Chau López MD PCP: Camden Burger Status: ADM IN Location: [place] [address] Problem List (1) ABDULLAHI (obstructive sleep apnea) Status: Acute (2) Acute exacerbation of chronic obstructive pulmonary disease (COPD) Status: Acute (3) Tobacco dependence due to cigarettes Status: Chronic (4) Non-compliance Status: Chronic (5) Microcytic anemia Status: Chronic (6) Syncope Status: Acute (7) Chest pain Status: Acute Qualifiers: (8) Hypersomnia Status: Chronic History of Present Illness Date of Admission: 09/06/17 Chief Complaint: Acute on chronic COPD exacerbation The patient is a 62 year old F with a past medical history of hypertension, diabetes mellitus type 2, hyperlipidemia, COPD, chronic pain syndrome, tobacco abuse, chronic anticoagulation with Xarelto, mild aortic stenosis, hypersomnia, osteoporosis, hypomagnesemia, morbid obesity, chronic atrial fibrillation, chronic respiratory failure with hypoxemia not compliant with oxygen, GERD and non-compliance admitted for acute on chronic COPD exacerbation. She was discharge from the hospital 2 weeks ago for chest pain and COPD exacerbation. She was discharged on prednisone and azithromycin. She has been getting progressively SOB since discharge. Nothing appeared to make it better or worse. Despite being adjust not to smoke, she continues to smoke at least 1/2 pack / day. She has a nonproductive cough. Past Medical History Past Medical History (Chronic Problems): Chronic Problems (Last Reviewed 09/07/17 @ 03:18 by Chau López MD) Tobacco dependence due to cigarettes (Chronic) Non-compliance (Chronic) Microcytic anemia (Chronic) Hypersomnia (Chronic) Anemia (Chronic) Hypomagnesemia (Chronic) HTN (hypertension) (Chronic) Morbid obesity with BMI of 40.0-44.9, adult (Chronic) Chronic pain (Chronic) Chronic atrial fibrillation (Chronic) Chronic hypoxemic respiratory failure (Chronic) non-compliant with oxygen Hyperlipemia (Chronic) ECHO in June of 2017 showed a 75% EF Type 2 diabetes mellitus (Chronic) uncontrolled GERD (gastroesophageal reflux disease) (Chronic) Anxiety (Chronic) Insomnia (Chronic) Medical History: Medical History (Last Reviewed 09/07/17 @ 03:18 by Chau López MD) Hypersomnia (Chronic) G47.10 Chest pain (Acute) R07.9 Anemia (Chronic) D64.9 Hypomagnesemia (Chronic) E83.42 HTN (hypertension) (Chronic) I10 Morbid obesity with BMI of 40.0-44.9, adult (Chronic) E66.01, Z68.41 COPD (chronic obstructive pulmonary disease) (Acute) J44.9 Chronic pain (Chronic) G89.29 Chronic atrial fibrillation (Chronic) I48.2 Chronic hypoxemic respiratory failure (Chronic) J96.11 non-compliant with oxygen Hyperlipemia (Chronic) E78.5 ECHO in June of 2017 showed a 75% EF Type 2 diabetes mellitus (Chronic) E11.9 uncontrolled GERD (gastroesophageal reflux disease) (Chronic) K21.9 Anxiety (Chronic) F41.9 Insomnia (Chronic) G47.00 Osteoporosis M81.0 Cardiomyopathy (Ruled-out) I42.9 EF in Oct 2015 45-50 Left ankle pain (Inactive) M25.572 Non-compliance (Inactive) Z91.19 withn follow up with pulmonary Allergies venom-honey bee [bee venom (honey bee)] Allergy (Verified 09/06/17 22:18) Swelling levofloxacin [From Levaquin] Adverse Reaction (Verified 09/06/17 22:18) Nausea oxycodone HCl [From Percocet] Adverse Reaction (Verified 09/06/17 22:18) Nausea Penicillins Adverse Reaction (Verified 09/06/17 22:18) Nausea/Vom/Diarrhea Home Medications: Ambulatory Orders Medication Instructions Recorded Surgical History: Surgical History (Last Reviewed 09/07/17 @ 03:18 by Chau López MD) Cataract extraction status Z98.49 History of lumbar surgery Z98.890 History of tonsillectomy and adenoidectomy Z98.890 History of total hysterectomy Z90.710 Surgical History: hysterectomy, tonsillectomy, - - Lumbar surgery. Psychiatric History: Anxiety, Depression COURTROOM REPORTER History: No pertinent COURTROOM REPORTER history Smoking Status: Current every day smoker - *Family History Maternal Family History: Family History (Last Reviewed 09/07/17 @ 03:19 by Chau López MD) Sister Arthritis Diabetes Father Cancer Aunt Diabetes History Items: - - She reports that she is unaware of what her mother's health history was like Paternal Family History: Family History (Last Reviewed 09/07/17 @ 03:19 by Chau López MD) Sister Arthritis Diabetes Father Cancer Aunt Diabetes History Items: Cancer, - - father with throat cancer. Sibling Family History: Family History (Last Reviewed 09/07/17 @ 03:19 by Chau López MD) Sister Arthritis Diabetes Father Cancer Aunt Diabetes History Items: Asthma, COPD, Hypertension Review of Systems Constitutional: Denies: Chills, Fever, Weight Change HEENT: Denies: Head Aches, Sinus Congestion, Sinus Drainage Cardiovascular: Denies: Chest Pain, Palpitations Respiratory: Reports: Cough, Shortness of Breath, Shortness of breath at rest, Wheezing Gastrointestinal: Denies: Abdominal Pain, Nausea, Vomiting Genitourinary: Denies: Dysuria Musculoskeletal: Denies: Joint Pain, Joint Tenderness Skin: Denies: Rash, Wounds Neurological: Denies: Numbness, Tingling, Focal weakness Psychiatric: Denies: Anxiety, Depression, Homicidal Ideations, Suicidal Ideations Hematologic/ Lymphatic: Denies: Easy Bruising, Easy Bleeding VTE Information - Inpt Only VTE Present on Admission: No VTE Mechan Device Prophylaxis: SCD's VTE Pharm Prophylaxis ordered?: Yes - Physical Exam General: Alert, Oriented x3, Cooperative HEENT: Atraumatic, PERRLA, EOMI, Normocephalic Neck: Supple, No JVD, Negative Carotid Bruits Lungs: Diminished, Tachypneic, Wheezes Cardiovascular: Regular rate, No murmurs Abdomen: Bowel Sounds Present, Soft, Non Tender Extremities: No edema, Capillary Refill Less than 3 Seconds Skin: No rashes, No breakdown Musculoskeletal: No Tenderness to Palpation of Joints or Extremities Neurological: Cranial nerves II-XII grossly intact Psych/Mental Status: Normal Affect, Appropriate Vital Signs Temp Pulse Resp BP Pulse Ox 97.2 F L 71 19 H 121/69 H 98 09/06/17 22:12 09/06/17 23:53 09/06/17 23:53 09/06/17 23:53 09/06/17 23:53 Oxygen Flow Rate (L/min) 2 Oxygen Delivery Method Nasal Cannula Weight: 97.7 kg Body Mass Index (BMI) 40.6 Finger Stick Blood Glucose 364 Laboratory Tests Past 24 Hrs Assessment/Plan All Active Problems (Last Reviewed 09/07/17 @ 03:18 by Chau López MD) ABDULALHI (obstructive sleep apnea) (Acute) Acute exacerbation of chronic obstructive pulmonary disease (COPD) (Acute) Syncope (Acute) Chest pain (Acute) Chest pain (Acute) COPD (chronic obstructive pulmonary disease) (Acute) Acute and chronic respiratory failure with hypoxia (Resolved) Acute bronchitis due to human metapneumovirus (Resolved) Atrial fibrillation with RVR (Resolved) COPD with acute exacerbation (Resolved) Gram-negative pneumonia (Resolved) Cardiomyopathy (Ruled-out) 62 year old F with a past medical history of hypertension, diabetes mellitus type 2, hyperlipidemia, COPD, chronic pain syndrome, tobacco abuse, chronic anticoagulation with Xarelto, mild aortic stenosis, hypersomnia, osteoporosis, hypomagnesemia, morbid obesity, chronic atrial fibrillation, chronic respiratory failure with hypoxemia not compliant with oxygen, GERD and non-compliance admitted for acute on chronic COPD exacerbation. 1) Acute on chronic COPD exacerbation: Most likely secondary to her noncompliant and smoking. Chest xray is unremarkable. Will start levaquin, solumedrol, and duonebs. Probably stop levaquin once cultures are negative. Leukocytosis probably secondary to high dose steroid. 2) Tobacco abuse: Education done. High readmission risk given noncompliant and no desire to quit smoking. 3) Acute hypoxic respiratory failure: C/w oxygen. C/w levaquin, solumderol and duonebs. Probably secondary to underlying COPD exacerbation. 4) DMII: Resume home meds. Sliding scale and accucheck. 5) Prophylaxis: SCD / Pepcid / Xarelto 09/07/17 0324 <Electronically signed by Chau López MD> Date Chau López MD Cosigner Signature: Date (if applicable) CC: Camden Burger; Chau López MD; Camden Burger MD Signed EMERGENCY DEPARTMENT Observed: 09/07/2017 Status: F Source: [place] SUMMARY 1:33 AM [facility] REPOSITORY [facility] Medical Records Department [address] [place] [address] Emergency Department Summary 09/06/17 2228 MR#: [id number] Acct: [id number] Name: DARYA LARKIN Rep #: [id number] : 1955 62 From: Santo Parker MD PCP: Camden Burger Status: ADM IN - ER Visit Summary Date of Service: 09/06/17 Chief Complaint: Shortness of breath History of Present Illness: The patient is a 62 F with history of COPD who denies being on oxygen presents to the emergency department with increasing shortness of breath. Patient was recently hospitalized just about 2 weeks ago for the same. She states that she feels she is still on prednisone. States that she was smoking, and became increasingly short of breath. She cannot get to her nebulizer. She felt very tachypneic and lightheaded. She called squad. On squad arrival, the patient was hypoxic and wheezing in all lung hoang. She was placed on supplemental oxygen given breathing treatments. She was brought in for further evaluation. She denies any fevers or chills. She denies any chest pain. She does admit to some orthopnea but states this is chronic. She follows with Dr. Prasad as her residential therapist. Physical Examination: Vital signs reviewed General: Well-nourished, well-developed Head: Normocephalic, atraumatic Eyes: Pupils equal and reactive, extraocular muscles intact Neck, supple, no lymphadenopathy Heart: Regular rate and rhythm Respiratory: No distress, wheezing in all hoang Abdomen: Soft, nontender, nondistended, no peritoneal signs Back: Nontender Extremities: Nontender, no edema, no cords Skin: Normal color no rash Neuro: Alert and oriented, no focal or lateralizing deficits Test Results: [] Emergency Department Course and Treatment: The patient was still tachypneic with significant bronchospasm on arrival. She was given more nebulized treatments, fluids, and Solu-Medrol. Chest x-ray does not show any evidence of infiltrates or volume overload. Her EKG demonstrates atrial fibrillation which is rate controlled. Cardiac enzymes are normal. Patient does have a leukocytosis of 18,000, but I do feel that this is likely a combination of her prednisone use and stress reaction from her acute dyspnea. She has had no productive sputum. I do not feel antibiotics are necessary. However, given her persistent bronchospasm, current oxygen requirement, and underlying severe lung disease I do feel that she will benefit from admission for continued nebulized breathing treatments. Patient was discussed with the hospitalist. Treatment Plan: [] Disposition: Admission Impression: COPD exacerbation This note was generated with Inno[employer] dictation software. It may contain incorrect words, spelling, and punctuation that were not noted in review of the chart prior to signing ED Disposition - Plan for ED Patient: Chief Complaint: Shortness of Breath Referrals: Camden Burger [Primary Care Provider] - What to do if you have Problems For any increased pain, shortness of breath, bleeding, nausea or vomiting, chest pain, or any unexpected problems, contact your Primary Care Provider. Call [facility] ([phone]) or report to the closest Emergency Room. Call 911 if necessary. 09/07/17 0133 <Electronically signed by Santo Parker MD> Date Santo Parker MD Cosigner Signature (If Indicated): Date CC: Camden Burger; Camden Burger MD CHEST PA AND LATERAL Observed: 09/07/2017 Status: F Source: [place] 1:15 AM [facility] REPOSITORY [facility] Imaging Services [address] [place] [address] [place] [address] Chest PA and Lateral MR#: [id number] Acct: [id number] Name: DARYA LARKIN Rep #: [id number] : 1955 F 62 From: Rimma Carreon MD PCP: Camden Burger Status: ADM IN Study: Chest PA and Lateral Date of Exam: 09/07/17 Exam# [id number] Ordering Dr: Chau López MD STUDY: X-RAY CHEST REASON FOR EXAM: Female, 62 years old. Dyspnea TECHNIQUE: Frontal and lateral views of the chest. COMPARISON: None. FINDINGS: The lungs are clear and expanded. There is no demonstrated pleural abnormality. Normal size heart. Normal mediastinum and sangeeta. Normal visualized pulmonary arteries. Normal visualized aortic arch and descending thoracic aorta. Normal visualized thoracic spine. There is degenerative osteoarthritis of the bilateral shoulders. There is no demonstrated abnormality of the visualized soft tissue structures of the upper abdomen. RAD/Chest PA and Lateral IMPRESSION: Degenerative changes, as described above. No demonstrated acute cardiopulmonary process. Electronically Signed: Rimma Carreon MD at 12:23 EDT Tel , Service support , CC: Camden Burger; Chau López MD Eyeglass Inspector: Signed CHEST 1 VIEW Observed: 09/06/2017 Status: F Source: [place] (PORTABLE) 10:22 PM [facility] REPOSITORY [facility] Imaging Services [address] [place] [address] Chest 1 View (Portable) MR#: [id number] Acct: [id number] Name: DARYA LARKIN Rep #: [id number] : 1955 F 62 From: Addy Delcid MD PCP: Camden Burger Status: REG ER Study: Chest 1 View (Portable) Date of Exam: 09/06/17 Exam# [id number] Ordering Dr: Santo Parker MD STUDY: X-RAY CHEST REASON FOR EXAM: Female, 62 years old. SOB / SOA TECHNIQUE: Single frontal view of the chest. COMPARISON: August 20, 2017 FINDINGS: Chronic appearing increased interstitial lung markings. The lung hoang are hyperexpanded. There is no demonstrated pleural abnormality. Enlarged heart size. Normal mediastinum and sangeeta. Normal visualized pulmonary arteries. There is atherosclerotic calcification of the aortic arch with tortuosity. There are diffuse degenerative changes of the visualized thoracic spine. There is degenerative osteoarthritis of the bilateral shoulders. There is no demonstrated abnormality of the visualized soft tissue structures of the upper abdomen. RAD/Chest 1 View (Portable) IMPRESSION: There are no acute findings. Electronically Signed: Addy Delcid MD at 22:34 EDT , Service support , CC: Camden Burger; Santo Parker MD Eyeglass Inspector: Signed CBC W/DIFF, AUTOMATED Collected: 09/06/2017 Status: F Source: [place] 10:18 PM [facility] REPOSITORY TYPE CODE TESTS RESULT OUT OF RANGE REFERENCE UNITS LAB L100.1000 4.4-11.0 K/mm3 High WBC 18.1 LAB L100.1200 4.2-5.4 M/mm3 Normal RBC 4.81 LAB L100.1300 12.0-15.0 g/dl Normal HGB 12.6 LAB L100.1400 37-47 % Normal HCT 40.1 LAB L100.1500 81-99 fL Normal MCV 83.4 LAB L100.1600 27.0-32.0 pg Low MCH 26.2 LAB L100.1700 32-36 g/gl Low MCHC 31.4 LAB L100.1810 11.6-14.6 % High RDW CV 18.7 LAB L100.1820 35.1-43.9 fl High RDW SD 56.7 LAB L100.1900 150-450 K/mm3 Normal PLT 350 LAB L100.2000 6.2-12.0 fl Normal MPV 9.9 LAB L100.2100 47-70 % Normal NEUT% 65.9 LAB L100.2200 19-41 % Normal LY% 25.4 LAB L100.2300 0-10 % Normal MONO% 7.6 LAB L100.2400 0-5 % Normal EO% 0.6 LAB L100.2500 0-1 % Normal BASO% 0.1 LAB L100.2550 0.0-0.9 % Normal IM GRAN % 0.400 Result Comment: IG% - Immature Granulocytes (promyelocytes, myelocytes and metamyelocytes) > 1% indicates that a LEFT SHIFT is Present. LAB L100.2620 2.0-7.7 X10 3/uL High Absolute Neut 11.9 LAB L100.2720 0.83-4.51 X10 3/ul High Absolute Lymph 4.59 Performed By: #### L100.0100 #### [facility] [place], [address] BASIC METABOLIC Collected: 09/06/2017 Status: F Source: [place] PROFILE (BMP) 10:18 PM [facility] REPOSITORY TYPE CODE TESTS RESULT OUT OF RANGE REFERENCE UNITS LAB L501.0100 74-106 mg/dL High GLU 113 Result Comment: Fasting Glucose result from 100 to 125 mg/dL suggests IMPAIRED HOMEOSTASIS per A.D.A. criteria. Please note revised GLUCOSE reference range effective 2017. LAB L501.1000 7-18 mg/dL High BUN 31 LAB L501.1100 0.55-1.02 mg/dL Normal CREAT,SERUM 0.83 Result Comment: The validity of the calculated GFR AND GFRAA in patients over 70 years has not been determined. Clinical correlation is essential. LAB L501.1110 >60 mL/min Normal EST GFR 74 Result Comment: Non- GFR Calc LAB L501.1115 >60 mL/min Normal EST GFR - AA 89 Result Comment: GFR Calc LAB L501.1255 ml/min Normal Estimated CRCL 53.03 LAB L501.1300 10-20 RATIO High BUN/CRE 37.2 LAB L501.2200 8.5-10 mg/dL Normal .1 CA 9.5 LAB L501.5300 136-14 mmol/L Normal 5 NA 141 LAB L501.5600 3.5-5. mmol/L High 1 K 5.3 Result Comment: Slight Hemolysis, Result may be falsely increased. LAB L501.5900 98-107 mmol/L Normal CL 102 LAB L501.6100 21.0-32.0 mmol/L Normal CO2 31.0 LAB L501.6200 5-15 Normal 8 GAP Performed By: #### L500.2500, L501.4010 #### [facility] [place], [address] TROPONIN-I Collected: 09/06/2017 Status: F Source: [place] 10:18 PM [facility] REPOSITORY TYPE CODE TESTS RESULT OUT OF RANGE REFERENCE UNITS LAB L501.4010 <0.045 ng/mL Normal < 0.015 TROPONIN-I Result Comment: TROPONIN-I EXPECTED VALUES <0.045 Negative 0.045 - 0.590 Consistent with Cardiac Damage > OR = 0.600 Critical Value Not every elevated troponin is indicative of KS. These values should be used with clinical judgement in examining the patient's clinical picture for diagnosis. To establish a diagnosis of KS versus myocardial injury, there must be a demonstrated rise and/or fall in the troponin values, in addition to ischemic symptoms, EKG changes, new regional wall motion abnormality, and/or angiographical evidence. PLEASE NOTE: REFERENCE RANGES EDITED 17 Performed By: #### L500.2500, L501.4010 #### [facility] [address] [place], [address] BNP,B-TYPE NATRIURETIC Collected: 09/06/2017 Status: F Source: [place] PEPTIDE 10:18 PM [facility] REPOSITORY TYPE CODE TESTS RESULT OUT OF RANGE REFERENCE UNITS LAB L503.6620 0-100 pg/mL Normal B-TYPE 16.5 KATHERINE PEP Performed By: #### L503.6620 #### [facility] [address] [place], [address] D-DIMER QUANTITATIVE Collected: 09/06/2017 Status: F Source: [place] (DVT/PE) 10:18 PM [facility] REPOSITORY TYPE CODE TESTS RESULT OUT OF RANGE REFERENCE UNITS LAB L300.8000 0.27-0.49 FEU/ug/m Low D-DIMER < 0.27 QUANT Result Comment: NORMAL D-Dimer level (<0.50) indicates no DVT or PE. Performed By: #### L300.8000 #### [facility] [address] [facility] [place], [place], [address] PULMONARY VISIT REPORT Observed: 09/02/2017 Status: F Source: [place] 8:37 AM [facility] REPOSITORY [facility] [address] [place] [address] OFFICE VISIT Date of Service: 09/01/17 MR#: [id number] Acct: [id number] Name: DARYA LARKIN Rep #: [id number] : 1955 Provider: Marylu Howell Age/Sex: 62/F Location: [facility] Status: Signed Assessment AND Plan 1. Chronic obstructive pulmonary disease, unspecified COPD type J44.9 Status Acute Plan Deteriorated. Plan to begin prednisone taper again. No change in maintenance medications at this time. Patient was unable to participate in the PFT her own words she states that I had an episode. Not likely helpful to repeat testing. Follow- up with Dr. Prasad in 6 months, the patient has been encouraged to contact the office with any new or worsening symptoms in the meantime. 2. Hypersomnia G47.10 Plan Patient was unable to complete sleep testing previously, she does appear to be motivated for testing and treatment. We will schedule a split-night study. Follow-up with Dr. Prasad in 6 months. 3. Thrush, oral B37.0 Plan New. Treating for thrush with nystatin 5 cc swish and swallow 3 times daily. Call the office if not resolving. Plan Detail Other Orders Orders: Other Medications New: nystatin swish and swallow 5 cc three t5 mL Mucous Membrane TID FRANKLIN Philippe imes per day for 10 days Discontinued: Follow Up 6 Months (DMB) HPI 3 M FU: Chief Complaint: Hospital follow-up HPI Comments Details: This Patient presents the office today to follow-up after recent hospitalization at [facility] from August 21 - August 23, 2017 for acute exacerbation of COPD. Her hospital stay was uneventful she was discharged on a Z-Fausto and a prednisone taper. Today she presents to the office in a wheelchair, currently on room air. Currently she complains of occasional shortness of breath and some wheezing. She is receiving duo nebs 3 times daily by nebulizer at the assisted living facility in which she resides. She reports that after the use of the nebulizer her symptoms have completely resolved, temporarily. She is compliant with Symbicort 2 puffs twice daily. She rinses her mouth out after each use. She denies any medication side effects such as sore throat or thrush. She denies any cough, hemoptysis or sputum production. She denies any fever, chills or body aches. See complete review of systems. She continues to smoke one half pack of cigarettes daily. She reports that she completed the antibiotic she was on and continues on the prednisone taper. Pulmonary function test completed on June 10, 2017, impression is that the test is uninterpretable due to lack of patient effort and technique. Intake Vital Signs09/01/17 Height 5 ft 1 in 09/01/17 Weight: 205 lb Intake Visit Reasons: 3 M FU Accompanied by: Self Allergies venom-honey bee [bee venom (honey bee)] Allergy (Verified 08/20/17 22:28) Swelling levofloxacin [From Levaquin] Adverse Reaction (Verified 08/20/17 22:28) Nausea oxycodone HCl [From Percocet] Adverse Reaction (Verified 08/20/17 22:28) Nausea Penicillins Adverse Reaction (Verified 08/20/17 22:28) Nausea/Vom/Diarrhea Medications Acetaminophen [Tylenol] 2 tab PO Q6H PRN 05/12/17 [History Confirmed 09/01/17] Albuterol Aerosols [Ventolin Aerosols] 2.5 mg INHALATION Q2H PRN PRN 05/12/17 [History Confirmed 09/01/17] Atorvastatin Calcium [Lipitor] 40 mg PO QHS 05/12/17 [History Confirmed 09/01/17] Budesonide/Formoterol 160/4.5 [Symbicort 160/4.5 Mcg Inhaler (SP)] 2 puff INHALATION BID 05/12/17 [History Confirmed 09/01/17] Bupropion HCl [Bupropion HCl Sr] 150 mg PO BID 05/12/17 [History Confirmed 09/01/17] Buspirone HCl 10 mg PO TID 05/12/17 [History Confirmed 09/01/17] Digoxin 250 mcg PO DAILY 05/12/17 [History Confirmed 09/01/17] Diltiazem [Cardizem] 120 mg PO BID 05/12/17 [History Confirmed 09/01/17] Famotidine [Pepcid] 20 mg PO BID 05/12/17 [History Confirmed 09/01/17] Furosemide [Lasix] 40 mg PO BID 05/12/17 [History Confirmed 09/01/17] Glucagon,Human Recombinant [Glucagon Emergency Kit] 1 mg IM PRN PRN 05/12/17 [History Confirmed 09/01/17] Guaifenesin [Mucinex] 1,200 mg PO BID 05/12/17 [History Confirmed 09/01/17] Insulin Glargine,Hum.rec.anlog [Lissaaglcarmenza Sumner U-100] 55 unit SQ QHS 05/12/17 [History Confirmed 09/01/17] Insulin Lispro [Humalog] 12 unit SQ TIDCM 05/12/17 [History Confirmed 09/01/17] Ipratropium/Albuterol Sulfate [Duoneb] 3 ml INHALATION Q4H.RT 05/12/17 [History Confirmed 09/01/17] Lisinopril [Prinivil] 5 mg PO DAILY 05/12/17 [History Confirmed 09/01/17] Potassium Chloride [K-Dur] 10 meq PO BID 05/12/17 [History Confirmed 09/01/17] Propranolol HCl [Inderal (Beta Lou)] 10 mg PO BID 05/12/17 [History Confirmed 09/01/17] Rivaroxaban [Xarelto] 20 mg PO DAILY 05/12/17 [History Confirmed 09/01/17] Sennosides/Docusate Sodium [Senna-Docusate Sodium Tablet] 2 tab PO DAILY PRN PRN 05/12/17 [History Confirmed 09/01/17] Benzonatate [Tessalon Perle] 100 mg PO TID PRN PRN 08/11/17 [History Confirmed 09/01/17] Hydrocodone Bitart/Apap 5-325 [[place] 5/325] 1 tab PO Q6H PRN PRN 08/11/17 [History Confirmed 09/01/17] Mag Hydrox/Al Hydrox/Simeth [Mylanta II] 30 ml PO Q6H PRN PRN 08/11/17 [History Confirmed 09/01/17] Nitroglycerin [Nitrostat] 0.4 mg SL PRN PRN 08/11/17 [History Confirmed 09/01/17] Polyethylene Glycol 3350 [Miralax] 17 gm PO PRN PRN 08/11/17 [History Confirmed 09/01/17] Prednisone 10 mg PO UD #30 tab 08/23/17 [Rx Confirmed 09/01/17] docusate sodium 100 mg capsule 100 mg PO QDAY 09/01/17 [History Confirmed 09/01/17] gabapentin 100 mg capsule 100 mg PO TID cap 09/01/17 [History Confirmed 09/01/17] nystatin 100,000 unit/mL oral suspension 5 ml MUCOUS MEMBRANE TID #250 ml 09/01/17 [Rx Confirmed 09/01/17] prednisone 10 mg tablet 10 mg PO QDAY #30 tab 09/01/17 [Rx Confirmed 09/01/17] PFSH Medical History Hypersomnia (Chronic) Chest pain (Acute) Anemia (Chronic) Hypomagnesemia (Chronic) HTN (hypertension) (Chronic) Morbid obesity with BMI of 40.0-44.9, adult (Chronic) COPD (chronic obstructive pulmonary disease) (Acute) Chronic pain (Chronic) Chronic atrial fibrillation (Chronic) Chronic hypoxemic respiratory failure (Chronic) Hyperlipemia (Chronic) Type 2 diabetes mellitus (Chronic) GERD (gastroesophageal reflux disease) (Chronic) Anxiety (Chronic) Insomnia (Chronic) Osteoporosis (Chronic) Cardiomyopathy (Ruled-out) Left ankle pain (Inactive) Non-compliance (Inactive) Surgical History Cataract extraction status (Resolved) History of lumbar surgery (Resolved) History of tonsillectomy and adenoidectomy (Resolved) History of total hysterectomy (Resolved) Family History Sister Arthritis Diabetes Father Cancer throat Aunt Diabetes Social History Smoking Status: Current every day smoker second hand exposure: Yes alcohol intake: never substance use type: does not use caffeine: Yes Type: coffee what type of physical activity do you participate in: none Review of Systems Const CONSTITUTIONAL: Negative anorexia, body ache, chills, daytime sleepiness, fever(s), night sweats, oral thrush, stops breathing during sleep, weight loss, sleeping in chair, fatigue, weight loss, weight gain, frequent colds, seasonal allergies, other, headache(s) or orthopnea EETM Ear Nose Throat Mouth: Positive hearing normal; negative hard of hearing, hoarseness, dry mouth in morning, change in vision, itchy eyes, eye pain, swallowing Difficulty, ear pain, nose bleed, headache(s), mouth pain, nasal congestion, nasal discharge, post nasal drip, sinus pain, sinus pressure, sore throat or other Cardio Cardiovascular: Negative chest pain, chest pain at rest, chest pain with activity, irregular heart rhythm, edema, shortness of breath when lying down, palpitations, murmur or other Resp Respiratory: Positive as per HPI and shortness of breath shortness of breath: Positive with activity; negative pain with cough, wheezing, chest congestion, cough, chest tightness, pain on inspiration, inhalers, increase use of rescue inhalers, snoring, apnea or other Gastro Gastrointestional: Negative change in appetite, bloody stools, difficulty swallowing, reflux, hematemesis, melena stool, loose stool, constipation or other Genitourinary: Negative blood in urine, nocturia, pain with urination or other Musc Musculoskeletal: Negative body pain, back pain, neck pain or other Skin/Breast Skin/Breast: Negative dry skin, itching, rash, unusual bruising, breast lump or other Neuro Neurological: Negative restless legs, confusion, weakness or other Psych Psychocological: Negative abnormal sleep pattern, anxiety, thoughts of hurting self/others, hopelessness or other Lymph Lymphatic: Negative easy bleeding, easy bruising, swollen lymph nodes or other Exam Const Constitutional: Positive conversant, cooperative, in no acute respiratory distress, well developed, poor hygiene and obese Head Head: Positive normocephalic and atraumatic; negative cyanosis of lips/distal nose Eyes Eye: Positive clear conjunctiva; negative nystagmus or scleral abnormality Ears Ear: Positive hearing normal and external ears normal; negative hard of hearing Nose Nose: Positive external nose normal and no nasal discharge; negative epistaxis Mouth Mouth: Positive oral mucosae normal, no lesions, poor dentition and posterior oropharynx is adequate; negative post nasal drip Mallampati Score: II: Mallampati Score Neck Neck: Positive normal visual inspection, full ROM, trachea midline and thick neck; negative lymphadenopathy, JVD or tender Chest Wall Chest: Positive normal inspection of the chest and symmetric chest movement; negative increased A/P diameter Resp lung sounds: Positive clear to auscultation, diminished, wheezes, wheeze present on forced exhalation, normal expiratory time and normal respiratory effort; negative rhonchi, rales or dullness to percussion Cardio Cardiac: Positive regular rate, regular rhythm, S1 normal and S2 normal; negative murmur GI GI: Positive normal to inspection, normal bowel sounds and obese; negative distended Genitourinary: Positive deferred Musc Musculoskeletal: Positive steady gait and ROM normal; negative kyphosis or scoliosis Skin Pulmonary Skin Exam: Positive intact; negative rash, lesion, ulcers, erythema or scaly Pulses Pulse: Yes pulses normal x4 extremities Extremities Extremities: Yes capillary refill normal, No clubbing, Yes cyanosis, Yes edema Location: lower extremity location: Bilateral pitting +2 Neuro Neurologic: Yes conversant, Yes no focal neuro deficits, Yes normal concentration, Yes understands questions, Yes cooperative, Yes normal cognition, Yes normal coordination Lymph Lymphatic: No lymphadenopathy, No tenderness, No cervical adenopathy, No axillary adenopathy Psych Appearance: Positive grossly normal, eye contact and well kempt Mental Status: Positive mental status grossly normal Mood: Positive congruent mood Affect: Positive normal affect Coding Level of Care Code Off vis,est,level 3 Diagnoses Chronic obstructive pulmonary disease, unspecified COPD type J44.9 COPD type: unspecified COPD Hypersomnia G47.10 Thrush, oral B37.0 09/02/17 0837 <Electronically signed by Marylu REID> Date Marylu REID Cosigner Signature: Date (if applicable) CC: Camden Burger 12 LEAD ELECTROCARDIOGRAM Observed: 08/24/2017 Status: F Source: [place] 3:03 PM [facility] REPOSIT[facility] Cardiovascular Services [address] [place] [id number] 12 Lead EKG 08/20/177 MR#: [id number] Acct: [id number] Name: DARYA LARKIN Rep #: [id number] : 1955 62 From: Lan Lilly MD Attending Dr: Zacarias Carias MD Status: DIS CAROL Ordering Dr: Bridgette Birmingham MD Date: 08/20/17 [place] [facility] [place] F C Admitted: 08/21/17 Test Reason : CP Blood Pressure : / mmHG Vent. Rate : 081 BPM Atrial Rate : 375 BPM P-R Int : 000 ms QRS Dur : 084 ms QT Int : 346 ms P-R-T Axes : 000 073 -61 degrees QTc Int : 401 ms Atrial fibrillation Septal infarct , age undetermined ST AND T wave abnormality, consider inferior ischemia Abnormal ECG Confirmed by VIAJYA DELGADO, LAN ([id number]), photography editor DIANA GALVEZ ([id number]) on 08/24/2017 3:02:49 PM Referred By: VALERY Confirmed By:LAN LILLY MD 08/24/17 1502 Date Lan Lilly MD CC: Camden Burger; Zacarias Carias MD; Bridgette Birmingham MD; Camden Burger MD Signed DISCHARGE SUMMARY Observed: 08/23/2017 Status: F Source: [place] 12:43 PM [facility] REPOS[facility] Medical Records Department [address] [place] [address] Discharge Summary 08/23/17 1058 MR#: [id number] Acct: [id number] Name: DARYA LARKIN Rep #: [id number] : 1955 62 From: Zacarias Carias MD PCP: Camden Burger Status: ADM CAROL Y Location: [place] [address] ADDENDUM by Zacarias Carias MD on 08/23/17 at 1243 Code Visit Inpatient E AND M: [id number] Disch Hosp 08/23/17 1243 <Electronically signed by Zacarias Carias MD> Date Zacarias Carias MD cc: Camden Burger; Zacarias Carias MD; Camden Burger MD * Signed Discharge Date and Diagnosis - Problem List Patient Problems: Active and Suspected Problems (Last Reviewed 08/21/17 @ 01:02 by Favian Montalvo DO) Acute exacerbation of chronic obstructive pulmonary disease (COPD) (Acute) Date of Admission: 08/21/17 Date of Discharge: 08/23/17 - Primary Discharge Diagnosis Active and Suspected Problems (Last Reviewed 08/21/17 @ 01:02 by Favian Montalvo DO) Acute exacerbation of chronic obstructive pulmonary disease (COPD) (Acute) - Secondary Discharge Diagnosis Chronic Problems (Last Reviewed 08/21/17 @ 01:02 by Favian Montalvo DO) Tobacco dependence due to cigarettes (Chronic) Non-compliance (Chronic) Microcytic anemia (Chronic) Hypersomnia (Chronic) Anemia (Chronic) Hypomagnesemia (Chronic) HTN (hypertension) (Chronic) Morbid obesity with BMI of 40.0-44.9, adult (Chronic) Chronic pain (Chronic) Chronic atrial fibrillation (Chronic) Chronic hypoxemic respiratory failure (Chronic) non-compliant with oxygen Hyperlipemia (Chronic) ECHO in June of 2017 showed a 75% EF Type 2 diabetes mellitus (Chronic) uncontrolled GERD (gastroesophageal reflux disease) (Chronic) Anxiety (Chronic) Insomnia (Chronic) Hospital Course and Treatment Operations: None Summary of Care Provided: The patient is a 62 year old F with a past medical history of hypertension, diabetes mellitus type 2, hyperlipidemia, COPD, chronic pain syndrome, tobacco abuse, chronic anticoagulation with Xarelto, mild aortic stenosis, hypersomnia, osteoporosis, hypomagnesemia, morbid obesity, chronic atrial fibrillation, chronic respiratory failure with hypoxemia not compliant with oxygen, GERD and non-compliance who was brought to the ED at [facility] from the long-term where she is a chronic resident at the age of 62 with complaints of Chest Pain. CXR shows no pulmonary vascular congestion, pleural effusions or infiltrates. EKG showed some nonspecific ST and T-wave changes which were unchanged from previous EKGs. Troponin was unremarkable. Patient had been coughing for a couple of days and she has shortness of breath above her baseline and a physical examination of wheezing. Patient was diagnosed with COPD exacerbation and she was placed on a steroid regimen. Because patient continued to have a leukocytosis and shortness of breath azithromycin was added to her regimen. At the hospital, we continued her home medication for chronic A. fib and anxiety. Her home insulin regimen was adjusted while at hospital. Patient noticed an improvement in shortness of breath and wheezing and a shared decision was made to discharge patient to her assisted living that she came from. The patient prescribed a tapered dose of prednisone and will continue azithromycin for 3 more days. On the day of discharge patient was seen and physical examination is as below: General: Alert, Oriented x3, Cooperative HEENT: Atraumatic Neck: Supple, No JVD, Negative Carotid Bruits Lungs: Wheezes Cardiovascular: Regular rate, No murmurs Abdomen: Bowel Sounds Present, Soft, Non Tender Extremities: No edema, Capillary Refill Less than 3 Seconds Skin: No rashes, No breakdown Musculoskeletal: No Tenderness to Palpation of Joints or Extremities Neurological: Cranial nerves II-XII grossly intact Psych/Mental Status: Flat Affect Patient was struck instructed to come to the emergency department if her shortness of breath worsens and to follow up with her PCP. . Discharge Diet: 1800 Calorie Control Diet Call your doctor if you observe: - - Increased shortness of breath. Home Medications: Medications to take at Discharge Acetaminophen [Tylenol] 2 tab PO Q6H PRN 05/12/17 Albuterol Aerosols [Ventolin Aerosols] 2.5 mg INHALATION Q2H PRN PRN 05/12/17 Atorvastatin Calcium [Lipitor] 40 mg PO QHS 05/12/17 Budesonide/Formoterol 160/4.5 [Symbicort 160/4.5 Mcg Inhaler (SP)] 2 puff INHALATION BID 05/12/17 Bupropion HCl [Bupropion HCl Sr] 150 mg PO BID 05/12/17 Buspirone HCl 10 mg PO TID 05/12/17 Digoxin 250 mcg PO DAILY 05/12/17 Diltiazem [Cardizem] 120 mg PO BID 05/12/17 Docusate Sodium [Colace] 100 mg PO QHS 05/12/17 Famotidine [Pepcid] 20 mg PO BID 05/12/17 Furosemide [Lasix] 40 mg PO BID 05/12/17 Glucagon,Human Recombinant [Glucagon Emergency Kit] 1 mg IM PRN PRN 05/12/17 Guaifenesin [Mucinex] 1,200 mg PO BID 05/12/17 Insulin Glargine,Hum.rec.anlog [Basaglar Kwikpen U-100] 55 unit SQ QHS 05/12/17 Insulin Lispro [Humalog] 12 unit SQ TIDCM 05/12/17 Ipratropium/Albuterol Sulfate [Duoneb] 3 ml INHALATION Q4H.RT 05/12/17 Lisinopril [Prinivil] 5 mg PO DAILY 05/12/17 Potassium Chloride [K-Dur] 10 meq PO BID 05/12/17 Propranolol HCl [Inderal (Beta Lou)] 10 mg PO BID 05/12/17 Rivaroxaban [Xarelto] 20 mg PO DAILY 05/12/17 Sennosides/Docusate Sodium [Senna-Docusate Sodium Tablet] 2 tab PO DAILY PRN PRN 05/12/17 Benzonatate [Tessalon Perle] 100 mg PO TID PRN PRN 08/11/17 Hydrocodone Bitart/Apap 5-325 [[place] 5/325] 1 tab PO Q6H PRN PRN 08/11/17 Mag Hydrox/Al Hydrox/Simeth [Mylanta II] 30 ml PO Q6H PRN PRN 08/11/17 Nitroglycerin [Nitrostat] 0.4 mg SL PRN PRN 08/11/17 Polyethylene Glycol 3350 [Miralax] 17 gm PO PRN PRN 08/11/17 Azithromycin 500 mg PO DAILY #3 tab 08/23/17 Prednisone 10 mg PO UD #30 tab 08/23/17 Following Prescrptions Were Given to Patient: Azithromycin 500 mg PO DAILY #3 tab Prednisone 10 mg PO UD #30 tab Primary Care Physician: Camden Burger [Primary Care Provider] - Please follow up with your Primary Care Physician in: 3-7 days Disposition: Asstd Living/Non-Skill [facility] Minutes spent on discharge:: 25 Patient Condition:: Fair Medical Necessity - Tobacco Use Smoking Status: Current every day smoker Tobacco Use: Cigarettes Meaningful Use Info Meaningful Use Diagnoses (Choose all that apply): None applicable 08/23/17 1218 <Electronically signed by Zacarias Carias MD> Date Zacarias Carias MD Cosigner Signature (if applicable): Date CC: Camden Burger; Zacarias Carias MD; Camden Burger MD Signed BEDSIDE GLUCOSE Collected: 08/23/2017 Status: F Source: [place] 11:40 AM [facility] REPOSITORY TYPE CODE TESTS RESULT OUT OF REFERENCE UNITS RANGE LAB L501.080 70-110 mg/dL High BEDSIDE GLU 278 Result Comment: MANAGEMENT OF PATIENT CARE PER NURSING PROTOCOL Performed By: #### L501.080 #### [facility] Point of Care [address] [place], [place] [address]zach Abdi [place] [id number] DISCHARGE INSTRUCTION Observed: 08/23/2017 Status: F Source: [place] 10:57 AM [facility] REPOSITORY [facility] Medical Records Department [address] [place] [address] Instructions for Home/Discharge Instructions 08/23/17 1053 MR#: [id number] Acct: [id number] Name: DARYA LARKIN Rep #: [id number] : 1955 62 From: Zacarias Carias MD PCP: Camden Burger Status: ADM CAROL - Discharge Diagnoses Current Active Problems: Current Active and Chronic Problems (Last Reviewed 08/21/17 @ 01:02 by Favian Montalvo DO) Acute exacerbation of chronic obstructive pulmonary disease (COPD) (Acute) Tobacco dependence due to cigarettes (Chronic) Non-compliance (Chronic) Microcytic anemia (Chronic) Reason(s) for Visit for Discharge Instructions: Acute COPD exacerbation You will use the following diet at home:: Calorie/Carbohydrate Controlled (specify 1200, 1400, etc) - 1800 Calorie Carb controlled diet. Your food should be the consistency of: Regular Call your doctor if you observe: - - Increased shortness of breath. Allergies/Adverse Reactions: Allergies venom-honey bee [bee venom (honey bee)] Allergy (Verified 08/20/17 22:28) Swelling levofloxacin [From Levaquin] Adverse Reaction (Verified 08/20/17 22:28) Nausea oxycodone HCl [From Percocet] Adverse Reaction (Verified 08/20/17 22:28) Nausea Penicillins Adverse Reaction (Verified 08/20/17 22:28) Nausea/Vom/Diarrhea Medications to take at Discharge Acetaminophen [Tylenol] 2 tab PO Q6H PRN 05/12/17 Albuterol Aerosols [Ventolin Aerosols] 2.5 mg INHALATION Q2H PRN PRN 05/12/17 Atorvastatin Calcium [Lipitor] 40 mg PO QHS 05/12/17 Budesonide/Formoterol 160/4.5 [Symbicort 160/4.5 Mcg Inhaler (SP)] 2 puff INHALATION BID 05/12/17 Bupropion HCl [Bupropion HCl Sr] 150 mg PO BID 05/12/17 Buspirone HCl 10 mg PO TID 05/12/17 Digoxin 250 mcg PO DAILY 05/12/17 Diltiazem [Cardizem] 120 mg PO BID 05/12/17 Docusate Sodium [Colace] 100 mg PO QHS 05/12/17 Famotidine [Pepcid] 20 mg PO BID 05/12/17 Furosemide [Lasix] 40 mg PO BID 05/12/17 Glucagon,Human Recombinant [Glucagon Emergency Kit] 1 mg IM PRN PRN 05/12/17 Guaifenesin [Mucinex] 1,200 mg PO BID 05/12/17 Insulin Glargine,Hum.rec.anlog [Basaglar Kwikpen U-100] 55 unit SQ QHS 05/12/17 Insulin Lispro [Humalog] 12 unit SQ TIDCM 05/12/17 Ipratropium/Albuterol Sulfate [Duoneb] 3 ml INHALATION Q4H.RT 05/12/17 Lisinopril [Prinivil] 5 mg PO DAILY 05/12/17 Potassium Chloride [K-Dur] 10 meq PO BID 05/12/17 Propranolol HCl [Inderal (Beta Lou)] 10 mg PO BID 05/12/17 Rivaroxaban [Xarelto] 20 mg PO DAILY 05/12/17 Sennosides/Docusate Sodium [Senna-Docusate Sodium Tablet] 2 tab PO DAILY PRN PRN 05/12/17 Benzonatate [Tessalon Perle] 100 mg PO TID PRN PRN 08/11/17 Hydrocodone Bitart/Apap 5-325 [[place] 5/325] 1 tab PO Q6H PRN PRN 08/11/17 Mag Hydrox/Al Hydrox/Simeth [Mylanta II] 30 ml PO Q6H PRN PRN 08/11/17 Nitroglycerin [Nitrostat] 0.4 mg SL PRN PRN 08/11/17 Polyethylene Glycol 3350 [Miralax] 17 gm PO PRN PRN 08/11/17 Azithromycin 500 mg PO DAILY #3 tab 08/23/17 Prednisone 10 mg PO UD #30 tab 08/23/17 The following prescriptions were given: Azithromycin 500 mg PO DAILY #3 tab Prednisone 10 mg PO UD #30 tab Primary Care Physician: Camden Burger [Primary Care Provider] - Please follow up with your Primary Care Physician in: 3-7 days Test Results: Test results from this visit will be discussed in further detail at your follow-up appointment, if applicable. Proposed Discharge Date: 08/23/17 08/23/17 1057 <Electronically signed by Zacarias Carias MD> Date Zacarias Carias MD CC: Camden Burger; Camden Burger MD BEDSIDE GLUCOSE Collected: 08/23/2017 Status: F Source: [place] 8:01 AM [facility] REPOSITORY TYPE CODE TESTS RESULT OUT OF RANGE REFERENCE UNITS LAB L501.080 70-110 mg/dL Normal BEDSIDE GLU 97 Result Comment: MANAGEMENT OF PATIENT CARE PER NURSING PROTOCOL Performed By: #### L501.080 #### [facility] Point of Care [address] [place], [place] [id number] BEDSIDE GLUCOSE Collected: 08/23/2017 Status: F Source: [place] 7:36 AM [facility] REPOSITORY TYPE CODE TESTS RESULT OUT OF REFERENCE UNITS RANGE LAB L501.080 70-110 mg/dL Low BEDSIDE GLU 65 Result Comment: MANAGEMENT OF PATIENT CARE PER NURSING PROTOCOL Performed By: #### L501.080 #### [facility] Point of Care [address] [place] [address] CBC-COMPLETE BLOOD CNT Collected: 08/23/2017 Status: F Source: [place] NO DIFF 5:34 AM [facility] REPOSITORY TYPE CODE TESTS RESULT OUT OF RANGE REFERENCE UNITS LAB L100.1000 4.4-11.0 K/mm3 High WBC 19.8 LAB L100.1200 4.2-5.4 M/mm3 Normal RBC 4.69 LAB L100.1300 12.0-15.0 g/dl Low HGB 11.9 LAB L100.1400 37-47 % Normal HCT 37.8 LAB L100.1500 81-99 fL Low MCV 80.6 LAB L100.1600 27.0-32.0 pg Low MCH 25.4 LAB L100.1700 32-36 g/gl Low MCHC 31.5 LAB L100.1810 11.6-14.6 % High RDW CV 18.0 LAB L100.1820 35.1-43.9 fl High RDW SD 51.7 LAB L100.1900 150-450 K/mm3 Normal PLT 338 LAB L100.2000 6.2-12.0 fl Normal MPV 9.7 Performed By: #### L100.0500 #### [facility] [address] [place], [address] BEDSIDE GLUCOSE Collected: 08/22/2017 Status: F Source: [place] 9:17 PM [facility] REPOSITORY TYPE CODE TESTS RESULT OUT OF REFERENCE UNITS RANGE LAB L501.080 70-110 mg/dL High BEDSIDE GLU 203 Result Comment: MANAGEMENT OF PATIENT CARE PER NURSING PROTOCOL Performed By: #### L501.080 #### [facility] Point of Care [address] [place] [address] BEDSIDE GLUCOSE Collected: 08/22/2017 Status: F Source: [place] 4:56 PM [facility] REPOSITORY TYPE CODE TESTS RESULT OUT OF REFERENCE UNITS RANGE LAB L501.080 70-110 mg/dL High BEDSIDE GLU 197 Result Comment: Insulin Given MANAGEMENT OF PATIENT CARE PER NURSING PROTOCOL Performed By: #### L501.080 #### [facility] Point of Care [address] [place], [place] [id number] BEDSIDE GLUCOSE Collected: 08/22/2017 Status: F Source: [place] 11:28 AM [facility] REPOSITORY TYPE CODE TESTS RESULT OUT OF REFERENCE UNITS RANGE LAB L501.080 70-110 mg/dL High BEDSIDE GLU 257 Result Comment: MANAGEMENT OF PATIENT CARE PER NURSING PROTOCOL Performed By: #### L501.080 #### [facility] Point of Care [address] [place] [address] Observed: 08/22/2017 Status: F Source: [place] RESPIRATORY PANEL 11:11 AM [facility] MOLECULAR REPOSITORY RP PANEL ADENOVIRUS Not Detected HUMAN METAPHNEUMO Not Detected INFLUENZA A Not Detected INFLUENZA A (SUBTYPE H1) Not Detected INFLUENZA A (SUBTYPE H3) Not Detected INFLUENZA B Not Detected PARAINFLUENZA 1 Not Detected PARAINFLUENZA 2 Not Detected PARAINFLUENZA 3 Not Detected PARAINFLUENZA 4 Not Detected RHINOVIRUS Not Detected RSV A Not Detected RSV B Not Detected NAAT METHOD Testing was performed using nucleic acid amplification Performed By: #### M100.638 #### [facility] [address] [place], [place], [address] CBC-COMPLETE BLOOD CNT Collected: 08/22/2017 Status: F Source: [place] NO DIFF 7:40 AM [facility] REPOSITORY TYPE CODE TESTS RESULT OUT OF RANGE REFERENCE UNITS LAB L100.1000 4.4-11.0 K/mm3 High WBC 17.3 LAB L100.1200 4.2-5.4 M/mm3 Normal RBC 4.61 LAB L100.1300 12.0-15.0 g/dl Low HGB 11.6 LAB L100.1400 37-47 % Normal HCT 37.7 LAB L100.1500 81-99 fL Normal MCV 81.8 LAB L100.1600 27.0-32.0 pg Low MCH 25.2 LAB L100.1700 32-36 g/gl Low MCHC 30.8 LAB L100.1810 11.6-14.6 % High RDW CV 18.1 LAB L100.1820 35.1-43.9 fl High RDW SD 53.6 LAB L100.1900 150-450 K/mm3 Normal PLT 338 LAB L100.2000 6.2-12.0 fl Normal MPV 10.1 Performed By: #### L100.0500 #### [facility] [address] [place], [place], [address] BASIC METABOLIC Collected: 08/22/2017 Status: F Source: [place] PROFILE (BMP) 7:40 AM [facility] REPOSITORY TYPE CODE TESTS RESULT OUT OF RANGE REFERENCE UNITS LAB L501.0100 74-106 mg/dL Normal GLU 80 Result Comment: Please note revised GLUCOSE reference range effective 2017. LAB L501.1000 7-18 mg/dL Normal BUN 15 LAB L501.1100 0.55-1.02 mg/dL Normal CREAT,SERUM 0.71 Result Comment: The validity of the calculated GFR AND GFRAA in patients over 70 years has not been determined. Clinical correlation is essential. LAB L501.1110 >60 mL/min Normal EST GFR 89 Result Comment: Non- GFR Calc LAB L501.1115 >60 mL/min Normal EST GFR - AA 108 Result Comment: GFR Calc LAB L501.1255 ml/min Normal Estimated CRCL 61.99 LAB L501.1300 10-20 RATIO High BUN/CRE 21.2 LAB L501.2200 8.5-10 mg/dL Normal .1 CA 8.5 LAB L501.5300 136-14 mmol/L Normal 5 NA 137 LAB L501.5600 3.5-5. mmol/L Normal 1 K 3.5 LAB L501.5900 98-107 mmol/L Normal CL 98 LAB L501.6100 21.0-3 mmol/L Normal 2.0 CO2 31.0 LAB L501.6200 5-15 Normal GAP 8 Performed By: #### L500.2500 #### [facility] [address] [facility] [address] BEDSIDE GLUCOSE Collected: 08/22/2017 Status: F Source: [place] 6:38 AM [facility] REPOSITORY TYPE CODE TESTS RESULT OUT OF RANGE REFERENCE UNITS LAB L501.080 70-110 mg/dL Normal BEDSIDE GLU 91 Result Comment: MANAGEMENT OF PATIENT CARE PER NURSING PROTOCOL Performed By: #### L501.080 #### [facility] Point of Care [address] [place] [address] BEDSIDE GLUCOSE Collected: 08/21/2017 Status: F Source: [place] 9:11 PM [facility] REPOSITORY TYPE CODE TESTS RESULT OUT OF REFERENCE UNITS RANGE LAB L501.080 70-110 mg/dL High BEDSIDE GLU 190 Result Comment: MANAGEMENT OF PATIENT CARE PER NURSING PROTOCOL Performed By: #### L501.080 #### [facility] Point of Care [address] [place] [address] EMERGENCY DEPARTMENT Observed: 08/21/2017 Status: F Source: [place] SUMMARY 7:08 PM [facility] REPOSITORY [facility] Medical Records Department [address] [address] Emergency Department Summary 08/21/17 0901 MR#: [id number] Acct: [id number] Name: DARYA LARKIN Rep #: [id number] : 1955 62 From: Bridgette Birmingham MD PCP: Camden Burger Status: ADM CAROL - ER Visit Summary Date of Service: 08/21/17 Chief Complaint: Chest pain History of Present Illness: The patient is a 62 F who presents for 2 hours of chest pain, onset at rest. Patient states she was sitting in a chair when she suddenly had left-sided chest pain. It is located in the lateral chest and nonradiating. It is sharp and severe. Worse with movement and breathing. Patient was given 3 nitros and 4 aspirin by EMS. Patient has associated shortness of breath. Denies fever, abdominal pain, cough, nausea or vomiting, back pain. Patient has history of coronary artery disease, CHF, COPD, diabetes and hypertension. Patient is on Xarelto. Physical Examination: Vital signs: afebrile, hemodynamically stable, no hypoxia on room air General: well nourished, well developed, in no distress, agitated Skin: warm, dry, no rash, no pallor HEENT: normocephalic and atraumatic; PERRL, EOMI, moist mucous membranes Cardiovascular: regular rate and rhythm without murmurs, no peripheral edema, 2+ pulses all distal extremities, 1+ symmetric pitting edema in the lower extremities. Chest is tender in the left lateral chest, no vesicular rash noted. Respiratory: Patient has diffuse wheezing and rhonchi on the left lower field. Abdominal: Abdomen is soft, nontender with normoactive bowel sounds, no guarding or rebound, no masses MSK: Moves all extremities, no deformities, normal strength Neuro: Awake and alert, oriented 4. No facial droop, sensation and motor function intact and symmetric Test Results: Abnormal Lab Results WBC 24.9 H RBC 4.64 Hgb 11.8 L Hct 37.5 WBC RBC Hgb Hct MCV MCH MCHC WBC RBC Hgb Hct MCV MCH MCHC RDW RDW Differential Plt Count MPV Immature Gran % (Auto) WBC RBC Hgb Hct MCV MCH MCHC RDW RDW Differential Plt Count MPV Immature Gran % (Auto) Clinical Impression(s) from Imaging Studies Chest X-Ray 08/20/17 22:50 IMPRESSION: No acute cardiopulmonary pathology Electronically Signed: Moses Diamond MD at 23:14 EDT , Service support , Emergency Department Course and Treatment: Patient presents with chest pain, but it is not typical for cardiac chest pain, as it is localized to the lateral chest with sharp nature and reproducible to light palpation. Patient has no evidence on exam of zoster. Patient recently had admission with thorough cardiac workup that was unremarkable. Chest x-ray showed chronic changes but no infiltrates. EKG showed no acute ischemic changes, no change from prior EKG. Patient was in atrial flutter. Troponin negative initially. Patient was given breathing treatments given the wheezing and complaint of shortness of breath. Concern for COPD exacerbation and pneumonia moreso than an acute coronary syndrome. Patient had some improvement in her respiratory effort with the breathing treatments but still stated she was having the chest pain and shortness of breath. Patient is already on steroids and was not given any further prednisone. She does have a significant white count, which may be due to her current steroid use versus infectious etiology. Patient was given Rocephin given the acute COPD exacerbation with concern for possible underlying pneumonia. Patient was discussed with Dr. Montalvo and admitted observation status for further treatment of her COPD. Treatment Plan: [] Disposition: [] Impression: Acute COPD exacerbation This note was generated with Innoz dictation software. It may contain incorrect words, spelling, and punctuation that were not noted in review of the chart prior to signing ED Disposition - Plan for ED Patient: Disposition: Acute Care [facility] Chief Complaint: Chest Pain What to do if you have Problems For any increased pain, shortness of breath, bleeding, nausea or vomiting, chest pain, or any unexpected problems, contact your Primary Care Provider. Call [facility] ([phone]) or report to the closest Emergency Room. Call 911 if necessary. 08/21/17 9723 <Electronically signed by Bridgette Birmingham MD> Date Bridgette Birmingham MD Cosigner Signature (If Indicated): Date CC: Camden Burger; Camden Burger MD BEDSIDE GLUCOSE Collected: 08/21/2017 Status: F Source: [place] 3:31 PM [facility] REPOSITORY TYPE CODE TESTS RESULT OUT OF REFERENCE UNITS RANGE LAB L501.080 70-110 mg/dL High BEDSIDE GLU 143 Result Comment: Insulin Given MANAGEMENT OF PATIENT CARE PER NURSING PROTOCOL Performed By: #### L501.080 #### [facility] Point of Care [address] [place] [address] BEDSIDE GLUCOSE Collected: 08/21/2017 Status: F Source: [place] 11:56 AM [facility] REPOSITORY TYPE CODE TESTS RESULT OUT OF REFERENCE UNITS RANGE LAB L501.080 70-110 mg/dL High BEDSIDE GLU 289 Result Comment: Insulin Given MANAGEMENT OF PATIENT CARE PER NURSING PROTOCOL Performed By: #### L501.080 #### [facility] Point of Care [address] [place] [address] BEDSIDE GLUCOSE Collected: 08/21/2017 Status: F Source: [place] 8:01 AM [facility] REPOSITORY TYPE CODE TESTS RESULT OUT OF REFERENCE UNITS RANGE LAB L501.080 70-110 mg/dL High BEDSIDE GLU 240 Result Comment: Insulin Given MANAGEMENT OF PATIENT CARE PER NURSING PROTOCOL Performed By: #### L501.080 #### [facility] Point of Care [address] [place] [address] HISTORY AND PHYSICAL Observed: 08/21/2017 Status: F Source: [place] EXAM 2:54 AM [facility] REPOSITORY [facility] Medical Records Department [address] [place] [address] History and Physical 08/21/17 0044 MR#: [id number] Acct: [id number] Name: DARYA LARKIN Judi Rep #: [id number] : 1955 62 From: Favian Montalvo DO PCP: Camden Burger Status: ADM CAROL Y Location: [place] [address] Problem List (1) Acute exacerbation of chronic obstructive pulmonary disease (COPD) Status: Acute (2) Tobacco dependence due to cigarettes Status: Chronic (3) Non-compliance Status: Chronic (4) Microcytic anemia Status: Chronic (5) Chest pain Status: Acute Qualifiers: (6) Syncope Status: Acute (7) Chest pain Status: Acute Qualifiers: (8) Hypersomnia Status: Chronic (9) Anemia Status: Chronic (10) Hypomagnesemia Status: Chronic (11) HTN (hypertension) Status: Chronic Qualifiers: (12) Morbid obesity with BMI of 40.0-44.9, adult Status: Chronic (13) COPD (chronic obstructive pulmonary disease) Status: Acute Qualifiers: (14) Chronic pain Status: Chronic Qualifiers: (15) Chronic atrial fibrillation Status: Chronic (16) Chronic hypoxemic respiratory failure Status: Chronic (17) Hyperlipemia Status: Chronic Qualifiers: Comment: ECHO in June of 2017 showed a 75% EF (18) Type 2 diabetes mellitus Status: Chronic Qualifiers: Comment: uncontrolled (19) GERD (gastroesophageal reflux disease) Status: Chronic Qualifiers: (20) Anxiety Status: Chronic (21) Insomnia Status: Chronic Qualifiers: History of Present Illness Date of Admission: 08/21/17 Chief Complaint: chest pain and SOB The patient is a 62 year old F with a past medical history of hypertension, diabetes mellitus type 2, hyperlipidemia, COPD, chronic pain syndrome, tobacco abuse, chronic anticoagulation with Xarelto, mild aortic stenosis, hypersomnia, osteoporosis, hypomagnesemia, morbid obesity, chronic atrial fibrillation, chronic respiratory failure with hypoxemia not compliant with oxygen, GERD and non-compliance who was brought to the ED at [facility] from the long-term where she is a chronic resident at the age of 62 with complaints of Chest Pain. Chest pain is a frequent complaint and she had a stress in April of 2017 that was negative. She additionally complains of a nonproductive cough although she did not cough even once when I was in her room. The chest pain is reproducible with left chest palpation. A Recent ECHO showed an EF of 75% with mild and no wall motion abnormalities. This is her seventh admission to the hospital in the past 12 months. Her most recent admission to [facility] was on 08/10/2017 and she was discharged on 08/12/2017. She was treated for an acute exacerbation of COPD at that time. She continues to smoke and she does not wear her oxygen. Vital signs at presentation to the emergency room were temp 98.2, pulse 98, blood pressure 128/82, respiratory rate 21-24 and she was 93% saturated on a 2 L nasal cannula. White blood cell count was 24.9 with an unremarkable differential. She has been on a prednisone taper since discharge from the hospital on 08/12/2017. Hemoglobin was 11.8 with an MCV of 80.8 and an RDW of 18.3. The MCV has been progressively decreasing over the past year. Electrolytes are within normal limits and the BUN is 19 with a creatinine of 0.81. CXR shows no pulmonary vascular congestion, pleural effusions or infiltrates. EKG showed some nonspecific ST and T-wave changes which were unchanged from previous EKGs. Troponin was less than 0.015. She appeared to be in no distress at the time of my exam. she was not tachypneic and she had no conversational dyspnea and no accessory muscle use. She was lying flat in bed. The ED physician requested she be admitted for acute exacerbation COPD. She is being admitted for observation. Past Medical History Past Medical History (Chronic Problems): Chronic Problems (Last Reviewed 08/21/17 @ 01:02 by Favian Montalvo DO) Tobacco dependence due to cigarettes (Chronic) Non-compliance (Chronic) Microcytic anemia (Chronic) Hypersomnia (Chronic) Anemia (Chronic) Hypomagnesemia (Chronic) HTN (hypertension) (Chronic) Morbid obesity with BMI of 40.0-44.9, adult (Chronic) Chronic pain (Chronic) Chronic atrial fibrillation (Chronic) Chronic hypoxemic respiratory failure (Chronic) non-compliant with oxygen Hyperlipemia (Chronic) ECHO in June of 2017 showed a 75% EF Type 2 diabetes mellitus (Chronic) uncontrolled GERD (gastroesophageal reflux disease) (Chronic) Anxiety (Chronic) Insomnia (Chronic) Medical History: Medical History (Last Reviewed 08/21/17 @ 01:02 by Favian Montalvo DO) Hypersomnia (Chronic) G47.10 Chest pain (Acute) R07.9 Anemia (Chronic) D64.9 Hypomagnesemia (Chronic) E83.42 HTN (hypertension) (Chronic) I10 Morbid obesity with BMI of 40.0-44.9, adult (Chronic) E66.01, Z68.41 COPD (chronic obstructive pulmonary disease) (Acute) J44.9 Chronic pain (Chronic) G89.29 Chronic atrial fibrillation (Chronic) I48.2 Chronic hypoxemic respiratory failure (Chronic) J96.11 non-compliant with oxygen Hyperlipemia (Chronic) E78.5 ECHO in June of 2017 showed a 75% EF Type 2 diabetes mellitus (Chronic) E11.9 uncontrolled GERD (gastroesophageal reflux disease) (Chronic) K21.9 Anxiety (Chronic) F41.9 Insomnia (Chronic) G47.00 Osteoporosis M81.0 Cardiomyopathy (Ruled-out) I42.9 EF in Oct 2015 45-50 Left ankle pain (Inactive) M25.572 Non-compliance (Inactive) Z91.19 withn follow up with pulmonary Allergies venom-honey bee [bee venom (honey bee)] Allergy (Verified 08/20/17 22:28) Swelling levofloxacin [From Levaquin] Adverse Reaction (Verified 08/20/17 22:28) Nausea oxycodone HCl [From Percocet] Adverse Reaction (Verified 08/20/17 22:28) Nausea Penicillins Adverse Reaction (Verified 08/20/17 22:28) Nausea/Vom/Diarrhea Home Medications: Ambulatory Orders Medication Instructions Recorded Acetaminophen [Tylenol] 2 tab PO Q6H PRN 05/12/17 Surgical History: Surgical History (Last Reviewed 08/21/17 @ 01:02 by Favian Montalvo DO) Cataract extraction status Z98.49 History of lumbar surgery Z98.890 History of tonsillectomy and adenoidectomy Z98.890 History of total hysterectomy Z90.710 Surgical History: hysterectomy, tonsillectomy, - - Lumbar surgery. Psychiatric History: Anxiety, Depression COURTROOM REPORTER History: No pertinent COURTROOM REPORTER history Lives: [facility] Smoking Status: Current every day smoker Tobacco Use: Cigarettes Alcohol: None Drugs: None - *Family History Maternal Family History: Family History (Last Reviewed 08/21/17 @ 01:03 by Favian Montalvo DO) Sister Arthritis Diabetes Father Cancer Aunt Diabetes History Items: - - She reports that she is unaware of what her mother's health history was like Paternal Family History: Family History (Last Reviewed 08/21/17 @ 01:03 by Favian Montalvo DO) Sister Arthritis Diabetes Father Cancer Aunt Diabetes History Items: Cancer, - - father with throat cancer. Sibling Family History: Family History (Last Reviewed 08/21/17 @ 01:03 by Favian Montalvo DO) Sister Arthritis Diabetes Father Cancer Aunt Diabetes History Items: Asthma, COPD, Hypertension Review of Systems Constitutional: Denies: Anorexia, Chills, Fever, Night Sweats Eyes: Denies: Vision Change HEENT: Denies: Difficulty Swallowing, Head Aches, Sinus Congestion, Sinus Drainage, Sore Throat Cardiovascular: Reports: Chest Pain - left chest and reproducible with palpation. Denies: Edema, Light Headedness, Orthopnea, Palpitations, Syncope Respiratory: Reports: Cough, Shortness of Breath, Shortness of breath at rest, Shortness of breath upon exertion. Denies: Sputum production Gastrointestinal: Denies: Abdominal Pain, Nausea, Vomiting Genitourinary: Denies: Dysuria Musculoskeletal: Denies: Joint Pain, Joint Tenderness Skin: Reports: - - telangiectasias of the face, back and chest. Denies: Jaundice Neurological: Denies: Numbness, Tingling, Focal weakness Psychiatric: Reports: Anxiety, Depression Endocrine: Denies: Change in Body Habitus Hematologic/ Lymphatic: Denies: Hx of blood clot VTE Information - Inpt Only VTE Present on Admission: No VTE Mechan Device Prophylaxis: SCD's, Knee High CRISTHIAN Hose VTE Pharm Prophylaxis ordered?: Yes Patient Problems: Active and Suspected Problems (Last Reviewed 08/21/17 @ 01:02 by Favian Montalvo DO) Acute exacerbation of chronic obstructive pulmonary disease (COPD) (Acute) - Physical Exam General: Alert, Oriented x3, No apparent distress, Non-Cooperative - dismissive and reluctant to even sit up in bed so I could listen to her lungs HEENT: Atraumatic, PERRLA, EOMI, Normocephalic Oral: Moist Mucosa, No Gingival or Mucosal Lesions/ Ulcerations Neck: Supple, No JVD, No Nodes, Trachea Midline Lungs: No rales, Diminished, Wheezes, - - Not tachypneic, no conversational dyspnea, no accessory muscle use, she was resting flat in bed when I entered the room and appeared to be in no acute distress. Cardiovascular: Normal S1, Normal S2, No murmurs, Irregular Rate - With controlled ventricular response, No Gallop Abdomen: Bowel Sounds Present, Soft, Non Tender, Non-Distended, Obese Extremities: No cyanosis, No edema, No Calf Tenderness, Diminished Peripheral Pulses Skin: - - She has facial telangiectasias and also telangiectasias of the chest and upper back. Neurological: Cranial nerves II-XII grossly intact, Neuro grossly intact Psych/Mental Status: Agitated - and rude Vital Signs Temp Pulse Resp BP Pulse Ox 98.2 F 84 16 140/75 H 97 08/20/17 22:24 08/21/17 00:28 08/21/17 00:28 08/21/17 00:28 08/21/17 00:28 Oxygen Flow Rate (L/min) 2 Oxygen Delivery Method Nasal Cannula Weight: 210 lb Body Mass Index (BMI) 39.6 Finger Stick Blood Glucose 364 Laboratory Tests Past 24 Hrs WBC 24.9 H RBC 4.64 Hgb 11.8 L Hct 37.5 MCV 80.8 L MCH 25.4 L MCHC 31.5 L WBC RBC Hgb Hct MCV MCH MCHC Assessment/Plan All Active Problems (Last Reviewed 08/21/17 @ 01:02 by Favian Montalvo DO) Acute exacerbation of chronic obstructive pulmonary disease (COPD) (Acute) Syncope (Acute) Chest pain (Acute) Chest pain (Acute) COPD (chronic obstructive pulmonary disease) (Acute) Acute and chronic respiratory failure with hypoxia (Resolved) Acute bronchitis due to human metapneumovirus (Resolved) Atrial fibrillation with RVR (Resolved) COPD with acute exacerbation (Resolved) Gram-negative pneumonia (Resolved) Cardiomyopathy (Ruled-out) Impressions 1. acute exacerbation of COPD 2. musculoskeletal CP with recent negative stress 3. Tobacco dependence 4. Chronic respiratory failure with hypoxemia-noncompliant with oxygen at the long-term 5. Severe COPD 6. Chronic pain syndrome 7. Chronic atrial fibrillation 8. Hyperlipidemia 9. Diabetes mellitus type 2-chronically uncontrolled 10. GERD 11. Morbid obesity 12. suspected personality disorder CXR - no infiltrates Sputum for GM stain C AND S Around the clock aerosol treatments and Q 2H ALbuterol aerosols for wheezing/SOB Prednisone 40 mg daily Mucinex Incentive spirometry PEP therapy DVT prophylaxis Ambulatory pulse ox prior to DC Check a dig level No need for antibiotics - she has no infiltrates, no rales and is afebrile. The elevation in the WBC count is likely due to the prednisone taper she is still on from her recent admission on 08/10 with Dc on 08/12 No need for serial CE's or stress......stress recently negative and the pain is reproducible Smoking cessation counselling once again given. Tells me that she has not followed up with pulmonary because they have not made an appt for me Code Visit OBSV Gelacio GARCIA M: [id number] Initial observation care L3 08/21/17 0254 <Electronically signed by Favian Montalvo DO> Date Favian Reji Montalvo DO Cosigner Signature: Date (if applicable) CC: Camden Burger; Avis Montalvo; Camden Burger MD Signed BEDSIDE GLUCOSE Collected: 08/21/2017 Status: F Source: [place] 2:34 AM [facility] REPOSITORY TYPE CODE TESTS RESULT OUT OF RANGE REFERENCE UNITS LAB L501.080 70-110 mg/dL Normal BEDSIDE GLU 108 Result Comment: MANAGEMENT OF PATIENT CARE PER NURSING PROTOCOL Performed By: #### L501.080 #### [facility] Point of Care [address] [place] [address] BLOOD GASES BY CPS Collected: 08/21/2017 Status: F Source: [place] 2:21 AM [facility] REPOSITORY TYPE CODE TESTS RESULT OUT OF RANGE REFERENCE UNITS LAB L9000.9990 Normal BLD GAS TYPE ART LAB L9001.1000 Normal SITE R Radial LAB L9001.1010 Normal VELMA TEST POS LAB L9001.1050 O2 Normal Delivery Dev Nasal Can LAB L9001.1055 /min Normal LPM 2.0 LAB L9001.1104 Normal Results To HOSP MD LAB L9001.1105 Normal Time Given 215 LAB L9001.1110 7.35-7.45 pH Normal - I-STAT 7.44 LAB L9001.1210 35-45 mmHg Normal pCO2 - ISTAT 43.8 LAB L9001.1310 75-100 mmHG Low PO2 I-STAT 70 LAB L9001.2300 22-26 mmol/L High HCO3 ISTAT 29.6 LAB L9001.2400 -2 to +2 mmol/L High BE ISTAT 5 LAB L9001.2415 mmol/L Normal TOTAL CO2 31 ISTAT LAB L9001.2425 95-99 % Low SO2 ISTAT 94 Performed By: #### L9000.0800 #### [facility] Point of Care [address] [place] [address] DIGOXIN LEVEL Collected: 08/21/2017 Status: F Source: [place] 2:05 AM [facility] REPOSITORY TYPE CODE TESTS RESULT OUT OF RANGE REFERENCE UNITS LAB L501.7510 0.80-2.00 ng/mL Normal DIG 1.08 Performed By: #### L501.7510 #### [facility] [address] [place], [address] Observed: 08/21/2017 Status: F Source: [place] CULTURE, BLOOD (WB) 12:05 AM [facility] REPOSITORY BC No growth in 5 days. Performed By: #### M200.1000 #### [facility] [address] [place], [address] LACTIC ACID Collected: 08/20/2017 Status: F Source: [place] 11:58 PM [facility] REPOSITORY Order Comment: Yes/No query for Sepsis Lactate Rule Y TYPE CODE TESTS RESULT OUT OF RANGE REFERENCE UNITS LAB L503.6005 0.4-2.0 mmol/L Normal LACTIC ACID 1.8 Performed By: #### L503.6005 #### [facility] [address] [place], [address] Observed: 08/20/2017 Status: F Source: [place] CULTURE, BLOOD (WB) 11:58 PM [facility] REPOSITORY BC No growth in 5 days. Performed By: #### M200.1000 #### [facility] [address] [place], [address] CBC W/DIFF, AUTOMATED Collected: 08/20/2017 Status: C Source: [place] 10:37 PM [facility] REPOSITORY TYPE CODE TESTS RESULT OUT OF RANGE REFERENCE UNITS LAB L100.1000 4.4-11.0 K/mm3 High WBC 24.9 LAB L100.1200 4.2-5.4 M/mm3 Normal RBC 4.64 LAB L100.1300 12.0-15.0 g/dl Low HGB 11.8 LAB L100.1400 37-47 % Normal HCT 37.5 LAB L100.1500 81-99 fL Low MCV 80.8 LAB L100.1600 27.0-32.0 pg Low MCH 25.4 LAB L100.1700 32-36 g/gl Low MCHC 31.5 LAB L100.1810 11.6-14.6 % High RDW CV 18.3 LAB L100.1820 35.1-43.9 fl High RDW SD 54.4 LAB L100.1900 150-450 K/mm3 Normal PLT 422 LAB L100.2000 6.2-12.0 fl Normal MPV 10.2 LAB L100.2100 47-70 % Normal NEUT% 66.5 LAB L100.2200 19-41 % Normal LY% 24.7 LAB L100.2300 0-10 % Normal MONO% 7.3 LAB L100.2400 0-5 % Normal EO% 0.5 LAB L100.2500 0-1 % Normal BASO% 0.1 LAB L100.2550 0.0-0.9 % Normal IM GRAN % 0.900 Result Comment: IG% - Immature Granulocytes (promyelocytes, myelocytes and metamyelocytes) > 1% indicates that a LEFT SHIFT is Present. LAB L100.2620 2.0-7.7 X10 3/uL High Absolute Neut 16.6 LAB L100.2720 0.83-4.51 X10 3/ul High Absolute Lymph 6.17 LAB L100.4500 Normal SMEAR COMMENT Result Comment: LYMPHOCYTOSIS AND MONOCYTOSIS NOTED LAB L100.9900 Normal Reviewed PATH REV Result Comment: Leukocytosis. Clinical correlation necessary. Hunter Martin M.D. 08/24/17 AMENDED REPORT 08/24/17 1423 PATH REV previously reported as: June Performed By: #### L100.0100 #### [facility] [address] [place], [place], [address] PROTHROMBIN TIME W/INR Collected: 08/20/2017 Status: F Source: [place] 10:37 PM [facility] REPOSITORY TYPE CODE TESTS RESULT OUT OF RANGE REFERENCE UNITS LAB L300.4150 11.7-14.9 SECONDS High PROTIME 17.1 LAB L300.4200 Normal INR 1.4 Performed By: #### L300.3900, L300.4310 #### [facility] [address] [place], [address] PARTIAL THROMBOPLAST Collected: 08/20/2017 Status: F Source: [place] TIME 10:37 PM [facility] REPOSITORY TYPE CODE TESTS RESULT OUT OF RANGE REFERENCE UNITS LAB L300.4310 24.1-36.2 Seconds Normal PTT 32.1 Performed By: #### L300.3900, L300.4310 #### [facility] [address] [place], [place], [address] BASIC METABOLIC Collected: 08/20/2017 Status: F Source: [place] PROFILE (BMP) 10:37 PM [facility] REPOSITORY TYPE CODE TESTS RESULT OUT OF RANGE REFERENCE UNITS LAB L501.0100 74-106 mg/dL High GLU 160 Result Comment: Fasting Glucose result greater than or equal to 126 mg/dL suggests DIABETES MELLITUS per A.D.A. criteria. Please note revised GLUCOSE reference range effective 2017. LAB L501.1000 7-18 mg/dL High BUN 19 LAB L501.1100 0.55-1.02 mg/dL Normal CREAT,SERUM 0.81 Result Comment: The validity of the calculated GFR AND GFRAA in patients over 70 years has not been determined. Clinical correlation is essential. LAB L501.1110 >60 mL/min Normal EST GFR 77 Result Comment: Non- GFR Calc LAB L501.1115 >60 mL/min Normal EST GFR - AA 93 Result Comment: GFR Calc LAB L501.1255 ml/min Normal Estimated CRCL 54.34 LAB L501.1300 10-20 RATIO High BUN/CRE 23.6 LAB L501.2200 8.5-10 mg/dL Normal .1 CA 8.7 LAB L501.5300 136-14 mmol/L Normal 5 NA 137 LAB L501.5600 3.5-5. mmol/L Normal 1 K 5.1 Result Comment: Moderate Hemolysis, Result may be falsely increased. LAB L501.5900 98-107 mmol/L Normal CL 101 LAB L501.6100 21.0-32.0 mmol/L Normal CO2 29.0 LAB L501.6200 5-15 Normal 7 GAP Performed By: #### L500.2500, L501.4010 #### [facility] [address] [place], [address] TROPONIN-I Collected: 08/20/2017 Status: F Source: [place] 10:37 PM [facility] REPOSITORY TYPE CODE TESTS RESULT OUT OF RANGE REFERENCE UNITS LAB L501.4010 <0.045 ng/mL Normal < 0.015 TROPONIN-I Result Comment: TROPONIN-I EXPECTED VALUES <0.045 Negative 0.045 - 0.590 Consistent with Cardiac Damage > OR = 0.600 Critical Value Not every elevated troponin is indicative of KS. These values should be used with clinical judgement in examining the patient's clinical picture for diagnosis. To establish a diagnosis of KS versus myocardial injury, there must be a demonstrated rise and/or fall in the troponin values, in addition to ischemic symptoms, EKG changes, new regional wall motion abnormality, and/or angiographical evidence. PLEASE NOTE: REFERENCE RANGES EDITED 17 Performed By: #### L500.2500, L501.4010 #### [facility] [place], [address] BNP,B-TYPE NATRIURETIC Collected: 08/20/2017 Status: F Source: [place] PEPTIDE 10:37 PM [facility] REPOSITORY TYPE CODE TESTS RESULT OUT OF RANGE REFERENCE UNITS LAB L503.6620 0-100 pg/mL Normal B-TYPE 10.6 KATHERINE PEP Performed By: #### L503.6620 #### [facility] [place], [address] IRON+IRON BINDING Collected: 08/20/2017 Status: F Source: [place] CAPACITY 10:37 PM [facility] REPOSITORY TYPE CODE TESTS RESULT OUT OF RANGE REFERENCE UNITS LAB L503.6075 250-450 ug/dL High TIBC 493 LAB L503.6150 50-170 ug/dL IRON Normal 76 LAB L503.6250 15.0-55.0 % IRON Normal SATURATION 15.4 Performed By: #### L503.6030, L503.6550 #### [facility] [address] [place], [address] FERRITIN Collected: 08/20/2017 Status: F Source: [place] 10:37 PM [facility] REPOSITORY TYPE CODE TESTS RESULT OUT OF RANGE REFERENCE UNITS LAB L503.6550 8-252 ng/mL Normal FERRITIN 12 Performed By: #### L503.6030, L503.6550 #### [facility] [address] [place], [address] CHEST PA AND LATERAL Observed: 08/20/2017 Status: F Source: [place] 10:34 PM [facility] REPOSITORY [facility] Imaging Services [address] [place] [address] Chest PA and Lateral MR#: [id number] Acct: [id number] Name: DARYA LARKIN Rep #: [id number] : 1955 F 62 From: Moses Diamond MD PCP: Camden Burger Status: REG ER Study: Chest PA and Lateral Date of Exam: 08/20/17 Exam# [id number] Ordering Dr: Bridgette Birmingham MD STUDY: X-RAY CHEST REASON FOR EXAM: Female, 62 years old. Chest pain TECHNIQUE: PA and lateral COMPARISON: August 10, 2017 FINDINGS: Lungs are mildly hyperinflated but clear. Tiny calcified granulomata are noted bilaterally. There is no demonstrated pleural abnormality. Normal size heart. Normal mediastinum and sangeeta. Normal visualized pulmonary arteries. Normal visualized aortic arch and descending thoracic aorta. Dorsal spine demonstrates moderate spondylosis. Normal visualized ribs, clavicles, and shoulders. There is no demonstrated abnormality of the visualized soft tissue structures of the upper abdomen. No significant change since prior study RAD/Chest PA and Lateral IMPRESSION: No acute cardiopulmonary pathology Electronically Signed: Moses Diamond MD at 23:14 EDT , Service support , CC: Camden Burger; Bridgette Birmingham MD Eyeglass Inspector: Signed 12 LEAD ELECTROCARDIOGRAM Observed: 08/14/2017 Status: F Source: [place] 8:31 AM [facility] REPOSITORY [facility] Cardiovascular Services [address] [place] [address] 12 Lead EKG 08/10/17 1919 MR#: [id number] Acct: [id number] Name: DARYA LARKIN Rep #: [id number] : 1955 62 From: Lan Lilly MD Attending Dr: Jessica Fabian Status: DIS IN Ordering Dr: Ross Rojas MD Date: 08/10/17 Location: [facility] Sex: F C Admitted: 08/10/17 Test Reason : CP Blood Pressure : / mmHG Vent. Rate : 069 BPM Atrial Rate : 084 BPM P-R Int : 000 ms QRS Dur : 096 ms QT Int : 388 ms P-R-T Axes : 000 063 -52 degrees QTc Int : [address] AND T wave abnormality, consider inferior ischemia Abnormal ECG Confirmed by LAN LILLY MD ([id number]), photography editor ANGE LIN ([id number]) on 08/14/2017 8:30:56 AM Referred By: ERNESTINE Confirmed By:LAN LILLY MD 08/14/17 0830 Date Lan Lilly MD CC: Camden Burger; Ross Rojas MD; Jessica Fabian; Camden Burger MD Signed BEDSIDE GLUCOSE Collected: 08/12/2017 Status: F Source: [place] 4:07 PM [facility] REPOSITORY TYPE CODE TESTS RESULT OUT OF REFERENCE UNITS RANGE LAB L501.080 70-110 mg/dL High BEDSIDE GLU 341 Result Comment: MANAGEMENT OF PATIENT CARE PER NURSING PROTOCOL Performed By: #### L501.080 #### [facility] Point of Care [address] [place] [address] BEDSIDE GLUCOSE Collected: 08/12/2017 Status: F Source: [place] 2:44 PM [facility] REPOSITORY TYPE CODE TESTS RESULT OUT OF REFERENCE UNITS RANGE LAB L501.080 70-110 mg/dL High BEDSIDE GLU 360 Result Comment: MANAGEMENT OF PATIENT CARE PER NURSING PROTOCOL Performed By: #### L501.080 #### [facility] Point of Care [address] [place] [address] BEDSIDE GLUCOSE Collected: 08/12/2017 Status: F Source: [place] 1:29 PM [facility] REPOSITORY TYPE CODE TESTS RESULT OUT OF REFERENCE UNITS RANGE LAB L501.080 70-110 mg/dL High alert BEDSIDE GLU 480 Result Comment: Dr Triana Followed MANAGEMENT OF PATIENT CARE PER NURSING PROTOCOL Performed By: #### L501.080 #### [facility] Point of Care [address] [place] [address] BEDSIDE GLUCOSE Collected: 08/12/2017 Status: F Source: [place] 12:42 PM [facility] REPOSITORY TYPE CODE TESTS RESULT OUT OF REFERENCE UNITS RANGE LAB L501.080 70-110 mg/dL High alert BEDSIDE GLU > 500 Result Comment: MANAGEMENT OF PATIENT CARE PER NURSING PROTOCOL Performed By: #### L501.080 #### [facility] Point of Care [address] [place] [address] DISCHARGE SUMMARY Observed: 08/12/2017 Status: F Source: [place] 12:33 PM [facility] REPOSITORY [facility] Medical Records Department [address] [place] [address] Discharge Summary 08/12/17 1147 MR#: [id number] Acct: [id number] Name: DARYA LARKIN Rep #: [id number] : 1955 62 From: Marie Hoover COACH WIRERRyanC PCP: Camden Burger Status: ADM IN Y Location: [facility] [id number] <Marie Hoover - Last Filed: 08/12/17 11:53> Discharge Date and Diagnosis Date of Admission: 08/10/17 Date of Discharge: 08/12/17 - Primary Discharge Diagnosis 1. Acute COPD exacerbation with acute hypoxia on chronic severe COPD with chronic hypoxic respiratory failure - Secondary Discharge Diagnosis Chronic Problems (Last Reviewed 05/20/17 @ 12:52 by Mary Ruiz) Osteoporosis (Chronic) Hypersomnia (Chronic) Former smoker (Chronic) Quit in the fall 2016 Hypomagnesemia (Chronic) HTN (hypertension) (Chronic) Morbid obesity with BMI of 40.0-44.9, adult (Chronic) Chronic pain (Chronic) Chronic atrial fibrillation (Chronic) Non-compliance (Chronic) withn follow up with pulmonary Chronic hypoxemic respiratory failure (Chronic) Cardiomyopathy (Chronic) EF in Oct 2015 45-50 Hyperlipemia (Chronic) Type 2 diabetes mellitus (Chronic) GERD (gastroesophageal reflux disease) (Chronic) Anxiety (Chronic) Insomnia (Chronic) Hospital Course and Treatment Imaging Results: Diagnostic Data Chest X-Ray 08/10/17 19:34 IMPRESSION: Degenerative changes, as described above. No demonstrated acute cardiopulmonary process. Electronically Signed: Danny Hale MD at 20:18 EDT , Service support , Operations: None Procedures: None Summary of Care Provided: Patient is a 61-year-old female admitted 07/10/2017 due to syncope. She has a past medical history of COPD, chronic atrial fibrillation, hypertension, type 2 diabetes mellitus, hyperlipidemia, GERD, anxiety, chronic hypoxic respiratory failure, obesity, cardiomyopathy. 1. Acute COPD exacerbation with acute hypoxia on chronic severe COPD with chronic hypoxic respiratory failure-chest x-ray on admission shows no acute cardiopulmonary process. Albuterol and DuoNeb aerosol. Patient weaned off of oxygen and stable on room air. Transition to oral prednisone taper at discharge. Patient's assisted living facility reports patient does not wear her home oxygen that she has available and is frequently smoking outside. Encourage smoking cessation. Patient follows up with Dr. Prasad with upcoming follow-up with COACH WIRER in August. Continue oxygen as needed to maintain O2 at or above 90%. Patient has oxygen available at assisted living facility. Continue outpatient follow-up as scheduled with pulmonary medicine. 2. Chest pain initially reported by patient in ER-denies further chest pain. Troponin negative. Stress test May 13, 2017 negative for ischemia. Echocardiogram 05/13/2017 showed an EF of 65%, mild aortic stenosis. Continue outpatient follow- up with cardiology. Patient has an upcoming appointment with Dr. Mccormick 08/21/2017. 3. Chronic atrial fibrillation-rate controlled. Continue Cardizem, propanolol, Xarelto. 4. Type 2 diabetes mellitus with hyperglycemia during admission secondary to IV steroid use-continue home insulin regimen. Continue to monitor blood glucose closely at discharge. 5. Hypertension-stable, continue home Cardizem, Lasix, lisinopril, propanolol, digoxin regimen. 6. Hyperlipidemia-continue statin. 7. History of mild cardiomyopathy-ejection fraction of 45-50%. 8. GERD-continue home famotidine regimen. 9. Anxiety-continue home buspirone, bupropion regimen. 10. Obesity-encouraged diet and lifestyle modifications. 11. Tobacco dependence-encourage smoking cessation. Nicotine replacement patch if desired. DVT prophylaxis-Xarelto This patient was seen by FRANKLIN Cardenas under the supervision of Dr. Fabian. Discharge Diet: Carb Control Diet Discharge Activity: Return to Normal Activity Call your doctor if you observe: Shortness of breath, Dizziness, Fainting spells, Chest pain Home Medications: Medications to take at Discharge Acetaminophen [Tylenol] 2 tab PO Q6H PRN 05/12/17 Albuterol Aerosols [Ventolin Aerosols] 2.5 mg INHALATION Q2H PRN PRN 05/12/17 Atorvastatin Calcium [Lipitor] 40 mg PO QHS 05/12/17 Budesonide/Formoterol 160/4.5 [Symbicort 160/4.5 Mcg Inhaler (SP)] 2 puff INHALATION BID 05/12/17 Bupropion HCl [Bupropion HCl Sr] 150 mg PO BID 05/12/17 Buspirone HCl 10 mg PO TID 05/12/17 Digoxin 250 mcg PO DAILY 05/12/17 Diltiazem [Cardizem] 120 mg PO BID 05/12/17 Docusate Sodium [Colace] 100 mg PO QHS 05/12/17 Famotidine [Pepcid] 20 mg PO BID 05/12/17 Furosemide [Lasix] 40 mg PO BID 05/12/17 Gabapentin [Neurontin] 100 mg PO TID 05/12/17 Glucagon,Human Recombinant [Glucagon Emergency Kit] 1 mg IM PRN PRN 05/12/17 Guaifenesin [Mucinex] 1,200 mg PO BID 05/12/17 Insulin Glargine,Hum.rec.anlog [Basaglar Kwikpen U-100] 55 unit SQ QHS 05/12/17 Insulin Lispro [Humalog] 12 unit SQ TIDCM 05/12/17 Ipratropium/Albuterol Sulfate [Duoneb] 3 ml INHALATION Q4H.RT 05/12/17 Lisinopril [Prinivil] 5 mg PO DAILY 05/12/17 Potassium Chloride [K-Dur] 10 meq PO BID 05/12/17 Propranolol HCl [Inderal (Beta Lou)] 10 mg PO BID 05/12/17 Rivaroxaban [Xarelto] 20 mg PO DAILY 05/12/17 Sennosides/Docusate Sodium [Senna-Docusate Sodium Tablet] 2 tab PO DAILY PRN 05/12/17 Benzonatate [Tessalon Perle] 100 mg PO TID PRN PRN 08/11/17 Hydrocodone Bitart/Apap 5-325 [[place] 5/325] 1 tablet PO Q6H PRN PRN 08/11/17 Mag Hydrox/Al Hydrox/Simeth [Mylanta II] 30 ml PO Q6H PRN PRN 08/11/17 Nitroglycerin [Nitrostat] 0.4 mg SL PRN PRN 08/11/17 Polyethylene Glycol 3350 [Miralax] 17 gm PO PRN PRN 08/11/17 Prednisone See Taper PO DAILY #30 tab 08/12/17 Following Prescrptions Were Given to Patient: Prednisone See Taper PO DAILY #30 tab Primary Care Physician: Camden Burger [Primary Care Provider] - Please follow up with your Primary Care Physician in: 1 Week Please Follow Up With: Marylu Howell NP-C When: As scheduled, 09/01/2017 Please Follow Up With: Camden Mccormick MD When: As scheduled 08/21/2017 Disposition: Asstd Living/Non-Skill MD Minutes spent on discharge:: 35 Patient Condition:: Stable Medical Necessity - Tobacco Use Smoking Status: Current every day smoker Meaningful Use Info Meaningful Use Diagnoses (Choose all that apply): None applicable <Jessica Fabian E - Last Filed: 08/12/17 12:33> Discharge Date and Diagnosis - Secondary Discharge Diagnosis Chronic Problems (Last Reviewed 05/20/17 @ 12:52 by Mary Ruiz) Osteoporosis (Chronic) Hypersomnia (Chronic) Former smoker (Chronic) Quit in the fall 2016 Hypomagnesemia (Chronic) HTN (hypertension) (Chronic) Morbid obesity with BMI of 40.0-44.9, adult (Chronic) Chronic pain (Chronic) Chronic atrial fibrillation (Chronic) Non-compliance (Chronic) withn follow up with pulmonary Chronic hypoxemic respiratory failure (Chronic) Cardiomyopathy (Chronic) EF in Oct 2015 45-50 Hyperlipemia (Chronic) Type 2 diabetes mellitus (Chronic) GERD (gastroesophageal reflux disease) (Chronic) Anxiety (Chronic) Insomnia (Chronic) Hospital Course and Treatment Summary of Care Provided: Hospitalist note: Discharge summary above reviewed as well as physical examination and I agree with above discharge plan. Patient seen and examined on the day of discharge and appeared to be stable to be discharged home. Her symptoms improved, less short of breath and has been maintaining pulse ox on room air. Her other vital signs are stable. She was admitted for worsening shortness of breath and dry cough, found to have acute COPD exacerbation. Her chest x-ray showed no acute findings, pneumonia ruled out. She was treated with bronchodilators and steroids and her symptoms improved. Initially, she required oxygen up to 3 L and today, her symptoms improved and she is maintaining her pulse ox on room air. On admission, she complained of chest pain which seemed to be atypical. Her EKG was unremarkable as well as cardiac enzymes. She had a recent stress test as well as 2D echocardiogram that were unremarkable. - Physical Exam General: Alert, Oriented x3, Cooperative, No apparent distress. HEENT: Atraumatic, PERRLA, EOMI. Neck: Supple, No JVD, Negative Carotid Bruits, Trachea Midline, Thyroid Normal. Lungs: Decreased breath sounds bilateral, occasional rhonchi, No wheeze, No rales. Cardiovascular: Irregular rate, Normal S1, Normal S2, PMI Normal. Abdomen: Bowel Sounds Present, Soft, Non Tender, Non-Distended, No Hepato-splenomegaly. Extremities: No clubbing, No cyanosis, No edema Skin: No rashes, No breakdown Neurological: Neuro grossly intact Vital Signs are stable. Patient discharged home in a stable medical condition, discharged on tapering course of prednisone, continue with on her bronchodilators including albuterol, Symbicort, DuoNeb. Continuing on her chronic home medications without any changes, recommended follow-up with PCP in 1 week, follow-up with pulmonology as scheduled and follow- up with cardiology as scheduled as well. This note was generated with [employer] dictation software. It may contain incorrect words, spelling, and punctuation that were not noted in checking the note before signing. Minutes spent on discharge:: 31 Medical Necessity - Tobacco Use Tobacco Use: Cigarettes Meaningful Use Info Meaningful Use Diagnoses (Choose all that apply): None applicable Code Visit Inpatient E AND M: 40374 Disch Hosp 08/12/17 1154 <Electronically signed by Marie REID> Date Marie REID 08/12/17 1233<Electronically signed by Jessica Fabian MD> Cosigner Signature (if applicable): Date Jessica Fabian MD CC: FRANKLIN Hoover; Camden Burger; Matthias Chong MD; Jessica Fabian; Camden Mccormick MD; Camden Burger MD Signed DISCHARGE INSTRUCTION Observed: 08/12/2017 Status: F Source: [place] 11:47 AM [facility] REPOSITORY [facility] Medical Records Department [address] [place] [address] Instructions for Home/Discharge Instructions 08/12/17 1144 MR#: [id number] Acct: [id number] Name: DARYA LARKIN Rep #: [id number] : 1955 62 From: Marie REID PCP: Camden Burger Status: ADM IN You will use the following diet at home:: Calorie/Carbohydrate Controlled (specify 1200, 1400, etc) Discharge Activity: Return to Normal Activity Call your doctor if you observe: Shortness of breath, Dizziness, Fainting spells, Chest pain Allergies/Adverse Reactions: Allergies venom-honey bee [bee venom (honey bee)] Allergy (Verified 07/10/17 18:02) Swelling levofloxacin [From Levaquin] Adverse Reaction (Verified 07/10/17 18:02) Nausea oxycodone HCl [From Percocet] Adverse Reaction (Verified 07/10/17 18:02) Nausea Penicillins Adverse Reaction (Verified 07/10/17 18:02) Nausea/Vom/Diarrhea Medications to take at Discharge Acetaminophen [Tylenol] 2 tab PO Q6H PRN 05/12/17 Albuterol Aerosols [Ventolin Aerosols] 2.5 mg INHALATION Q2H PRN PRN 05/12/17 Atorvastatin Calcium [Lipitor] 40 mg PO QHS 05/12/17 Budesonide/Formoterol 160/4.5 [Symbicort 160/4.5 Mcg Inhaler (SP)] 2 puff INHALATION BID 05/12/17 Bupropion HCl [Bupropion HCl Sr] 150 mg PO BID 05/12/17 Buspirone HCl 10 mg PO TID 05/12/17 Digoxin 250 mcg PO DAILY 05/12/17 Diltiazem [Cardizem] 120 mg PO BID 05/12/17 Docusate Sodium [Colace] 100 mg PO QHS 05/12/17 Famotidine [Pepcid] 20 mg PO BID 05/12/17 Furosemide [Lasix] 40 mg PO BID 05/12/17 Gabapentin [Neurontin] 100 mg PO TID 05/12/17 Glucagon,Human Recombinant [Glucagon Emergency Kit] 1 mg IM PRN PRN 05/12/17 Guaifenesin [Mucinex] 1,200 mg PO BID 05/12/17 Insulin Glargine,Hum.rec.anlog [Basaglar Kwikpen U-100] 55 unit SQ QHS 05/12/17 Insulin Lispro [Humalog] 12 unit SQ TIDCM 05/12/17 Ipratropium/Albuterol Sulfate [Duoneb] 3 ml INHALATION Q4H.RT 05/12/17 Lisinopril [Prinivil] 5 mg PO DAILY 05/12/17 Potassium Chloride [K-Dur] 10 meq PO BID 05/12/17 Propranolol HCl [Inderal (Beta Lou)] 10 mg PO BID 05/12/17 Rivaroxaban [Xarelto] 20 mg PO DAILY 05/12/17 Sennosides/Docusate Sodium [Senna-Docusate Sodium Tablet] 2 tab PO DAILY PRN 05/12/17 Benzonatate [Tessalon Perle] 100 mg PO TID PRN PRN 08/11/17 Hydrocodone Bitart/Apap 5-325 [[place] 5/325] 1 tablet PO Q6H PRN PRN 08/11/17 Mag Hydrox/Al Hydrox/Simeth [Mylanta II] 30 ml PO Q6H PRN PRN 08/11/17 Nitroglycerin [Nitrostat] 0.4 mg SL PRN PRN 08/11/17 Polyethylene Glycol 3350 [Miralax] 17 gm PO PRN PRN 08/11/17 Prednisone See Taper PO DAILY #30 tab 08/12/17 The following prescriptions were given: Prednisone See Taper PO DAILY #30 tab Primary Care Physician: Camden Burger [Primary Care Provider] - Please follow up with your Primary Care Physician in: 1 Week Please Follow Up With: Marylu Howell NP-C When: As scheduled, 09/01/2017 Please Follow Up With: Camden Mccormick MD When: As scheduled 08/21/2017 Proposed Discharge Date: 08/12/17 08/12/17 1147 <Electronically signed by Marie REID> Date Marie REID CC: Camden Burger; Camden Burger MD BEDSIDE GLUCOSE Collected: 08/12/2017 Status: F Source: [place] 11:17 AM [facility] REPOSITORY TYPE CODE TESTS RESULT OUT OF REFERENCE UNITS RANGE LAB L501.080 70-110 mg/dL High alert BEDSIDE GLU > 500 Result Comment: MANAGEMENT OF PATIENT CARE PER NURSING PROTOCOL Performed By: #### L501.080 #### [facility] Point of Care [address] [address] BEDSIDE GLUCOSE Collected: 08/12/2017 Status: F Source: [place] 6:52 AM [facility] REPOSITORY TYPE CODE TESTS RESULT OUT OF REFERENCE UNITS RANGE LAB L501.080 70-110 mg/dL High BEDSIDE GLU 332 Result Comment: MANAGEMENT OF PATIENT CARE PER NURSING PROTOCOL Performed By: #### L501.080 #### [facility] Point of Care [address] [place], [place] [address] BASIC METABOLIC Collected: 08/12/2017 Status: F Source: [place] PROFILE (BMP) 5:35 AM [facility] REPOSITORY TYPE CODE TESTS RESULT OUT OF RANGE REFERENCE UNITS LAB L501.0100 74-106 mg/dL High GLU 301 Result Comment: Glucose result greater than or equal to 200 mg/dL suggests DIABETES MELLITUS per A.D.A. criteria. Please note revised GLUCOSE reference range effective 2017. LAB L501.1000 7-18 mg/dL Normal BUN 17 LAB L501.1100 0.55-1.02 mg/dL Normal CREAT,SERUM 0.85 Result Comment: The validity of the calculated GFR AND GFRAA in patients over 70 years has not been determined. Clinical correlation is essential. LAB L501.1110 >60 mL/min Normal EST GFR 72 Result Comment: Non- GFR Calc LAB L501.1115 >60 mL/min Normal EST GFR - AA 87 Result Comment: GFR Calc LAB L501.1255 ml/min Normal Estimated CRCL 51.78 LAB L501.1300 10-20 RATIO Normal BUN/CRE 20.0 LAB L501.2200 8.5-10 mg/dL Normal .1 CA 8.8 LAB L501.5300 136-14 mmol/L Normal 5 NA 137 LAB L501.5600 3.5-5. mmol/L Normal 1 K 4.1 LAB L501.5900 98-107 mmol/L Normal CL 101 LAB L501.6100 21.0-3 mmol/L Normal 2.0 CO2 26.0 LAB L501.6200 5-15 Normal GAP 10 Performed By: #### L500.2500 #### [facility] [address] [place], [place], [address] BEDSIDE GLUCOSE Collected: 08/11/2017 Status: F Source: [place] 9:20 PM [facility] REPOSITORY TYPE CODE TESTS RESULT OUT OF REFERENCE UNITS RANGE LAB L501.080 70-110 mg/dL High BEDSIDE GLU 302 Result Comment: MANAGEMENT OF PATIENT CARE PER NURSING PROTOCOL Performed By: #### L501.080 #### [facility] Point of Care [address] [place] [address] BEDSIDE GLUCOSE Collected: 08/11/2017 Status: F Source: [place] 6:18 PM [facility] REPOSITORY TYPE CODE TESTS RESULT OUT OF REFERENCE UNITS RANGE LAB L501.080 70-110 mg/dL High BEDSIDE GLU 390 Result Comment: MANAGEMENT OF PATIENT CARE PER NURSING PROTOCOL Performed By: #### L501.080 #### [facility] Point of Care [address] [place] [address] BEDSIDE GLUCOSE Collected: 08/11/2017 Status: F Source: [place] 4:30 PM [facility] REPOSITORY TYPE CODE TESTS RESULT OUT OF REFERENCE UNITS RANGE LAB L501.080 70-110 mg/dL High BEDSIDE GLU 365 Result Comment: MANAGEMENT OF PATIENT CARE PER NURSING PROTOCOL Performed By: #### L501.080 #### [facility] Point of Care [address] [place] [address] BEDSIDE GLUCOSE Collected: 08/11/2017 Status: F Source: [place] 3:18 PM [facility] REPOSITORY TYPE CODE TESTS RESULT OUT OF REFERENCE UNITS RANGE LAB L501.080 70-110 mg/dL High BEDSIDE GLU 413 Result Comment: MANAGEMENT OF PATIENT CARE PER NURSING PROTOCOL Performed By: #### L501.080 #### [facility] Point of Care [address] [place] [address] BEDSIDE GLUCOSE Collected: 08/11/2017 Status: F Source: [place] 2:01 PM [facility] REPOSITORY TYPE CODE TESTS RESULT OUT OF REFERENCE UNITS RANGE LAB L501.080 70-110 mg/dL High alert BEDSIDE GLU > 500 Result Comment: Dr Orders Followed MANAGEMENT OF PATIENT CARE PER NURSING PROTOCOL Performed By: #### L501.080 #### [facility] Point of Care [address] [place] [address] BEDSIDE GLUCOSE Collected: 08/11/2017 Status: F Source: [place] 12:17 PM [facility] REPOSITORY TYPE CODE TESTS RESULT OUT OF REFERENCE UNITS RANGE LAB L501.080 70-110 mg/dL High alert BEDSIDE GLU > 500 Result Comment: Dr Orders Followed MANAGEMENT OF PATIENT CARE PER NURSING PROTOCOL Performed By: #### L501.080 #### [facility] Point of Care [address] [place] [address] GLUCOSE Collected: 08/11/2017 Status: F Source: [place] 11:15 AM [facility] REPOSITORY TYPE CODE TESTS RESULT OUT OF RANGE REFERENCE UNITS LAB L501.0100 74-106 mg/dL High alert GLU 631 Result Comment: Critical Result(s) Called at: 11:45:49 08/11/2017 by: Mercedes Cedillo to BYoung Glucose result greater than or equal to 200 mg/dL suggests DIABETES MELLITUS per A.D.A. criteria. Please note revised GLUCOSE reference range effective 2017. Performed By: #### L501.0100 #### [facility] [address] [place], [address] BEDSIDE GLUCOSE Collected: 08/11/2017 Status: F Source: [place] 11:05 AM [facility] REPOSITORY TYPE CODE TESTS RESULT OUT OF REFERENCE UNITS RANGE LAB L501.080 70-110 mg/dL High alert BEDSIDE GLU > 500 Result Comment: Dr Orders Followed MANAGEMENT OF PATIENT CARE PER NURSING PROTOCOL Performed By: #### L501.080 #### [facility] Point of Care [address] [place] [address] BEDSIDE GLUCOSE Collected: 08/11/2017 Status: F Source: [place] 11:03 AM [facility] REPOSITORY TYPE CODE TESTS RESULT OUT OF REFERENCE UNITS RANGE LAB L501.080 70-110 mg/dL High alert BEDSIDE GLU > 500 Result Comment: Repeat Test MANAGEMENT OF PATIENT CARE PER NURSING PROTOCOL Performed By: #### L501.080 #### [facility] Point of Care [address] [place] [address] BEDSIDE GLUCOSE Collected: 08/11/2017 Status: F Source: [place] 7:00 AM [facility] REPOSITORY TYPE CODE TESTS RESULT OUT OF REFERENCE UNITS RANGE LAB L501.080 70-110 mg/dL High BEDSIDE GLU 433 Result Comment: MANAGEMENT OF PATIENT CARE PER NURSING PROTOCOL Performed By: #### L501.080 #### [facility] Point of Care [address] [place] [address] TROPONIN-I Collected: 08/11/2017 Status: F Source: [place] 2:10 AM [facility] REPOSITORY Order Comment: 'TROP' Serial specimen #1, #2 or #3: 3 TYPE CODE TESTS RESULT OUT OF RANGE REFERENCE UNITS LAB L501.4010 <0.045 ng/mL Normal < 0.015 TROPONIN-I Result Comment: TROPONIN-I EXPECTED VALUES <0.045 Negative 0.045 - 0.590 Consistent with Cardiac Damage > OR = 0.600 Critical Value Not every elevated troponin is indicative of KS. These values should be used with clinical judgement in examining the patient's clinical picture for diagnosis. To establish a diagnosis of KS versus myocardial injury, there must be a demonstrated rise and/or fall in the troponin values, in addition to ischemic symptoms, EKG changes, new regional wall motion abnormality, and/or angiographical evidence. PLEASE NOTE: REFERENCE RANGES EDITED 17 Performed By: #### L501.4010 #### [facility] [address] [place] [address]. [place], [address] CBC W/DIFF, AUTOMATED Collected: 08/11/2017 Status: F Source: [place] 2:10 AM [facility] REPOSITORY TYPE CODE TESTS RESULT OUT OF RANGE REFERENCE UNITS LAB L100.1000 4.4-11.0 K/mm3 High WBC 12.5 LAB L100.1200 4.2-5.4 M/mm3 Normal RBC 4.26 LAB L100.1300 12.0-15.0 g/dl Low HGB 10.8 LAB L100.1400 37-47 % Low HCT 34.6 LAB L100.1500 81-99 fL Normal MCV 81.2 LAB L100.1600 27.0-32.0 pg Low MCH 25.4 LAB L100.1700 32-36 g/gl Low MCHC 31.2 LAB L100.1810 11.6-14.6 % High RDW CV 17.8 LAB L100.1820 35.1-43.9 fl High RDW SD 53.6 LAB L100.1900 150-450 K/mm3 Normal PLT 277 LAB L100.2000 6.2-12.0 fl Normal MPV 10.7 LAB L100.2100 47-70 % High NEUT% 89.7 LAB L100.2200 19-41 % Low LY% 8.7 LAB L100.2300 0-10 % Normal MONO% 0.9 LAB L100.2400 0-5 % Normal EO% 0.3 LAB L100.2500 0-1 % Normal BASO% 0.2 LAB L100.2550 0.0-0.9 % Normal IM GRAN % 0.200 Result Comment: IG% - Immature Granulocytes (promyelocytes, myelocytes and metamyelocytes) > 1% indicates that a LEFT SHIFT is Present. LAB L100.2620 2.0-7.7 X10 3/uL High Absolute Neut 11.2 LAB L100.2720 0.83-4.51 X10 3/ul Normal Absolute Lymph 1.08 Performed By: #### L100.0100, L500.4050 #### [facility] [address] [place], [address] COMPREHENSIVE METABOLIC Collected: 08/11/2017 Status: F Source: [facility] 2:10 AM [facility] REPOSITORY TYPE CODE TESTS RESULT OUT OF RANGE REFERENCE UNITS LAB L501.0100 74-106 mg/dL High alert GLU 461 Result Comment: Critical Result(s) Called at: 02:59:46 08/11/2017 by: STEWART GONZALES to Janki Angel Glucose result greater than or equal to 200 mg/dL suggests DIABETES MELLITUS per A.D.A. criteria. Please note revised GLUCOSE reference range effective 2017. LAB L501.1000 7-18 mg/dL Normal BUN 15 LAB L501.1100 0.55-1.02 mg/dL High CREAT,SERUM 1.21 Result Comment: The validity of the calculated GFR AND GFRAA in patients over 70 years has not been determined. Clinical correlation is essential. LAB L501.1110 >60 mL/min Low EST GFR 48 Result Comment: Non- GFR Calc LAB L501.1115 >60 mL/min Low EST GFR - AA 58 Result Comment: GFR Calc LAB L501.1255 ml/min Normal Estimated CRCL 36.38 LAB L501.1300 10-20 RATIO Normal BUN/CRE 12.4 LAB L501.1500 6.4-8. g/dL Normal 2 T PROT 6.4 LAB L501.1800 3.2-5. g/dL Low 0 ALB 2.6 LAB L501.1950 2.2-4. g/dL Normal 2 GLOB 3.8 LAB L501.2000 0.9-2. RATIO Low 4 A/G 0.7 LAB L501.2200 8.5-10 mg/dL Low .1 CA 8.2 LAB L501.4100 15-37 U/L Low AST 10 LAB L501.4305 45-117 U/L High ALK P 148 LAB L501.4405 13-56 U/L Normal ALT 18 LAB L501.4600 0.20-1 mg/dL Normal .00 T BILI 0.30 LAB L501.5300 136-14 mmol/L Low 5 NA 131 LAB L501.5600 3.5-5. mmol/L High 1 K 5.3 LAB L501.5900 98-107 mmol/L Normal CL 100 LAB L501.6100 21.0-3 mmol/L Low 2.0 CO2 18.0 LAB L501.6200 5-15 Normal GAP 13 Performed By: #### L100.0100, L500.4050 #### [facility] [address] [place], [address] EMERGENCY DEPARTMENT Observed: 08/11/2017 Status: F Source: [place] SUMMARY 12:17 AM [facility] REPOSITORY [facility] Medical Records Department [address] [place] [address] Emergency Department Summary 08/10/17 1934 MR#: [id number] Acct: [id number] Name: DARYA LARKIN Rep #: [id number] : 1955 62 From: Ross Rojsa MD PCP: Camden Burger Status: ADM IN - ER Visit Summary Date of Service: 08/10/17 Chief Complaint: Chest pain and shortness of breath History of Present Illness: The patient is a 62 F with chest pain and shortness of breath. Symptoms started gradually throughout today. This is treated with a dry cough. The patient has a history of COPD. She does not wear home oxygen. She also has a history of atrial fibrillation and takes Xarelto. 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 De Paz. She denies any history of coronary disease. She does report a history of DVT, but denies PE. She denies any leg swelling. Physical Examination: Vital signs are unremarkable. Afebrile. 93% on 2 L. Patient has normal skin without diaphoresis or pallor. Heart is irregularly irregular. Lungs show diffuse wheezing throughout all hoang. Abdomen soft and nontender. Extremities nontender with no edema. Test Results: EKG shows atrial fibrillation at a rate of 69. No sign of acute infarction pattern. She does have some nonspecific ST and T-wave changes. Laboratory studies and x-ray pending. Emergency Department Course and Treatment: Patient placed on a monitor. We will treat with aspirin, Solu-Medrol, and a DuoNeb. Will reassess. On reevaluation, she has continued chest pain or shortness of breath. Her workup is all fairly unremarkable. Troponin and BNP normal. EKG showed A. fib at a rate of 69. No acute ischemia or infarction. Chest x-ray showed chronic changes. Patient was discussed with the hospitalist and will be admitted. Treatment Plan: As above Disposition: Admission Impression: 1. Chest pain 2. COPD This note was generated with [employer] dictation software. It may contain incorrect words, spelling, and punctuation that were not noted in review of the chart prior to signing ED Disposition - Plan for ED Patient: Chief Complaint: Chest Pain Referrals: Camden Burger [Primary Care Provider] - What to do if you have Problems For any increased pain, shortness of breath, bleeding, nausea or vomiting, chest pain, or any unexpected problems, contact your Primary Care Provider. Call [facility] ([phone]) or report to the closest Emergency Room. Call 911 if necessary. 08/11/17 0017 <Electronically signed by Ross Rojas MD> Date Ross Rojas MD Cosigner Signature (If Indicated): Date CC: Camden Burger; Camden Burger MD BEDSIDE GLUCOSE Collected: 08/10/2017 Status: F Source: [place] 11:44 PM [facility] REPOSITORY TYPE CODE TESTS RESULT OUT OF REFERENCE UNITS RANGE LAB L501.080 70-110 mg/dL High BEDSIDE GLU 261 Result Comment: MANAGEMENT OF PATIENT CARE PER NURSING PROTOCOL Performed By: #### L501.080 #### [facility] Point of Care [address] [place] [address] HISTORY AND PHYSICAL Observed: 08/10/2017 Status: F Source: [place] EXAM 9:52 PM [facility] REPOSITORY [facility] Medical Records Department [address] [place] [address] History and Physical 08/10/172142 MR#: [id number] Acct: [id number] Name: DARYA LARKIN Rep #: [id number] : 1955 62 From: Camden Burger MD PCP: Camden Burger Status: REG ER Y Location: ED Problem List (1) Chest pain Status: Acute Qualifiers: Chest pain type: unspecified Qualified Code(s): R07.9 - Chest pain, unspecified (2) SOB (shortness of breath) Status: Acute (3) Former smoker Status: Chronic Comment: Quit in the fall 2016 (4) HTN (hypertension) Status: Chronic Qualifiers: (5) COPD (chronic obstructive pulmonary disease) Status: Acute Qualifiers: COPD type: unspecified COPD (6) Chronic atrial fibrillation Status: Chronic (7) Non-compliance Status: Chronic Comment: withn follow up with pulmonary History of Present Illness Date of Admission: 08/10/17 Chief Complaint: chest pain and shortness of breath The patient is a 62 year old female with a history of COPD presents to the ER from assisted living with complaint of shortness of breath and chest pain. She received a NORCO at the assisted living that helped reduce her chest pain but she is more sleepy now. She denies chest pain to me at present. She has had worsening shortness of breath throughout the day. She went to go get an aerosol treatment when she felt worsening shortness of breath with chest pain that prompted her trip to the ED. No fevers or chills. She had a negative cardiac stress test this year. She will be admitted for COPD exacerbation. Past Medical History Past Medical History (Chronic Problems): Chronic Problems (Last Reviewed 05/20/17 @ 12:52 by Mary Ruiz) Osteoporosis (Chronic) Hypersomnia (Chronic) Former smoker (Chronic) Quit in the fall 2016 Hypomagnesemia (Chronic) HTN (hypertension) (Chronic) Morbid obesity with BMI of 40.0-44.9, adult (Chronic) Chronic pain (Chronic) Chronic atrial fibrillation (Chronic) Non-compliance (Chronic) withn follow up with pulmonary Chronic hypoxemic respiratory failure (Chronic) Cardiomyopathy (Chronic) EF in Oct 2015 45-50 Hyperlipemia (Chronic) Type 2 diabetes mellitus (Chronic) GERD (gastroesophageal reflux disease) (Chronic) Anxiety (Chronic) Insomnia (Chronic) Medical History: Medical History (Last Reviewed 05/20/17 @ 12:52 by Mary Ruiz) SOB (shortness of breath) (Chronic) R06.02 Left ankle pain (Acute) M25.572 Osteoporosis (Chronic) M81.0 Hypersomnia (Chronic) G47.10 Chest pain (Acute) R07.9 Anemia (Acute) D64.9 Pneumonia (Ruled-out) J18.9 Former smoker (Chronic) Z87.891 Quit in the fall 2016 Hypomagnesemia (Chronic) E83.42 HTN (hypertension) (Chronic) I10 Morbid obesity with BMI of 40.0-44.9, adult (Chronic) E66.01, Z68.41 COPD (chronic obstructive pulmonary disease) (Chronic) J44.9 Chronic pain (Chronic) G89.29 Chronic atrial fibrillation (Chronic) I48.2 Non-compliance (Chronic) Z91.19 withn follow up with pulmonary Chronic hypoxemic respiratory failure (Chronic) J96.11 Cardiomyopathy (Chronic) I42.9 EF in Oct 2015 45-50 Hyperlipemia (Chronic) E78.5 Type 2 diabetes mellitus (Chronic) E11.9 GERD (gastroesophageal reflux disease) (Chronic) K21.9 Anxiety (Chronic) F41.9 Insomnia (Chronic) G47.00 Allergies venom-honey bee [bee venom (honey bee)] Allergy (Verified 07/10/17 18:02) Swelling levofloxacin [From Levaquin] Adverse Reaction (Verified 07/10/17 18:02) Nausea oxycodone HCl [From Percocet] Adverse Reaction (Verified 07/10/17 18:02) Nausea Penicillins Adverse Reaction (Verified 07/10/17 18:02) Nausea/Vom/Diarrhea Home Medications: Ambulatory Orders Medication Instructions Recorded Acetaminophen [Tylenol] 2 tab PO Q6H PRN 05/12/17 Albuterol Aerosols [Ventolin 2.5 mg INHALATION Q2H PRN PRN 05/12/17 Surgical History: Surgical History (Last Reviewed 05/20/17 @ 12:52 by Mary Ruiz) Cataract extraction status (Resolved) Z98.49 History of adenoidectomy (Resolved) Z90.89 History of lumbar surgery (Resolved) Z98.890 H/O total hysterectomy (Resolved) Z90.710 History of tonsillectomy (Resolved) Z90.89 Surgical History: hysterectomy, tonsillectomy, - - Lumbar surgery. Psychiatric History: Anxiety, Depression COURTROOM REPORTER History: No pertinent COURTROOM REPORTER history Smoking Status: Current every day smoker - *Family History Maternal Family History: Family History (Last Reviewed 05/20/17 @ 12:52 by Mary Ruiz) Sister Arthritis Diabetes Father Cancer Aunt Diabetes History Items: - - She reports that she is unaware of what her mother's health history was like Paternal Family History: Family History (Last Reviewed 05/20/17 @ 12:52 by Mary Ruiz) Sister Arthritis Diabetes Father Cancer Aunt Diabetes History Items: Cancer, - - father with throat cancer. Sibling Family History: Family History (Last Reviewed 05/20/17 @ 12:52 by Mary Ruiz) Sister Arthritis Diabetes Father Cancer Aunt Diabetes History Items: Asthma, COPD, Hypertension Review of Systems Constitutional: Denies: Chills, Fever, Weight Change HEENT: Denies: Head Aches, Sinus Congestion, Sinus Drainage Cardiovascular: Reports: Chest Pain. Denies: Palpitations Respiratory: Reports: Cough, Shortness of breath at rest. Denies: Sputum production Gastrointestinal: Denies: Abdominal Pain, Nausea, Vomiting Genitourinary: Denies: Dysuria Musculoskeletal: Denies: Joint Pain, Joint Tenderness Skin: Denies: Rash, Wounds Neurological: Denies: Numbness, Tingling, Focal weakness Psychiatric: Denies: Anxiety, Depression, Homicidal Ideations, Suicidal Ideations Hematologic/ Lymphatic: Denies: Easy Bruising, Easy Bleeding VTE Information - Inpt Only VTE Present on Admission: No VTE Mechan Device Prophylaxis: None VTE Pharm Prophylaxis ordered?: Yes - Physical Exam General: Alert, Oriented x3, Cooperative HEENT: Atraumatic, Normocephalic Neck: Supple Lungs: Diminished, Rhonchi, Wheezes Cardiovascular: Normal S1, Normal S2, No murmurs, Irregular Rate Abdomen: Bowel Sounds Present, Soft, Non Tender, Obese Extremities: No edema Skin: No rashes Musculoskeletal: No Tenderness to Palpation of Joints or Extremities Neurological: Neuro grossly intact Psych/Mental Status: Normal Affect, Appropriate Vital Signs Temp Pulse Resp BP Pulse Ox 97.9 F 63 22 H 119/65 95 08/10/17 19:19 08/10/17 21:42 08/10/17 21:42 08/10/17 21:40 08/10/17 21:40 Oxygen Flow Rate (L/min) 2 Oxygen Delivery Method Nasal Cannula Weight: 215 lb Body Mass Index (BMI) 40.6 Finger Stick Blood Glucose 364 Laboratory Tests Past 24 Hrs WBC RBC Hgb Hct MCV MCH MCHC RDW RDW Differential Plt Count MPV Immature Gran % (Auto) Neut % (Auto) Lymph % (Auto) Assessment/Plan All Active Problems (Last Reviewed 05/20/17 @ 12:52 by Mary Ruiz) Syncope (Acute) Chest pain (Acute) Cataract extraction status (Resolved) History of adenoidectomy (Resolved) History of lumbar surgery (Resolved) H/O total hysterectomy (Resolved) History of tonsillectomy (Resolved) SOB (shortness of breath) (Acute) Left ankle pain (Acute) Chest pain (Acute) Anemia (Acute) Pneumonia (Ruled-out) COPD (chronic obstructive pulmonary disease) (Acute) Acute and chronic respiratory failure with hypoxia (Resolved) Acute bronchitis due to human metapneumovirus (Resolved) Atrial fibrillation with RVR (Resolved) COPD with acute exacerbation (Resolved) Gram-negative pneumonia (Resolved) Plan - admit to PCU - solumedrol 40mg IV q 8 - levaquin 500mg IV q 24hrs - duoneb inh q 4hrs - cycle cardiac markers - oxygen, nitro and Aspirin per routine - cbc, bmp in am - continue routine home medications - continue anticoagulation medication Code Visit Inpatient E AND M: 56482 Init Hosp L3 06/25/18 2152 <Electronically signed by Camden Burger MD> Date Camden Burger MD Cosigner Signature: Date (if applicable) CC: Camden Burger; Camden Burger MD Signed CBC W/DIFF, AUTOMATED Collected: 08/10/2017 Status: F Source: [place] 7:38 PM [facility] REPOSITORY TYPE CODE TESTS RESULT OUT OF RANGE REFERENCE UNITS LAB L100.1000 4.4-11.0 K/mm3 High WBC 12.1 LAB L100.1200 4.2-5.4 M/mm3 Normal RBC 4.30 LAB L100.1300 12.0-15.0 g/dl Low HGB 10.9 LAB L100.1400 37-47 % Low HCT 34.9 LAB L100.1500 81-99 fL Normal MCV 81.2 LAB L100.1600 27.0-32.0 pg Low MCH 25.3 LAB L100.1700 32-36 g/gl Low MCHC 31.2 LAB L100.1810 11.6-14.6 % High RDW CV 18.1 LAB L100.1820 35.1-43.9 fl High RDW SD 54.1 LAB L100.1900 150-450 K/mm3 Normal PLT 309 LAB L100.2000 6.2-12.0 fl Normal MPV 10.6 LAB L100.2100 47-70 % Normal NEUT% 62.8 LAB L100.2200 19-41 % Normal LY% 24.3 LAB L100.2300 0-10 % Normal MONO% 8.4 LAB L100.2400 0-5 % Normal EO% 4.1 LAB L100.2500 0-1 % Normal BASO% 0.2 LAB L100.2550 0.0-0.9 % Normal IM GRAN % 0.200 Result Comment: IG% - Immature Granulocytes (promyelocytes, myelocytes and metamyelocytes) > 1% indicates that a LEFT SHIFT is Present. LAB L100.2620 2.0-7.7 X10 3/uL Normal Absolute Neut 7.6 LAB L100.2720 0.83-4.51 X10 3/ul Normal Absolute Lymph 2.94 Performed By: #### L100.0100 #### [facility] [address] [place], [address] BASIC METABOLIC Collected: 08/10/2017 Status: F Source: [place] PROFILE ([facility]) 7:38 PM [facility] REPOSITORY TYPE CODE TESTS RESULT OUT OF RANGE REFERENCE UNITS LAB L501.0100 74-106 mg/dL High GLU 235 Result Comment: Glucose result greater than or equal to 200 mg/dL suggests DIABETES MELLITUS per A.D.A. criteria. Please note revised GLUCOSE reference range effective 2017. LAB L501.1000 7-18 mg/dL Normal BUN 12 LAB L501.1100 0.55-1.02 mg/dL Normal CREAT,SERUM 0.92 Result Comment: The validity of the calculated GFR AND GFRAA in patients over 70 years has not been determined. Clinical correlation is essential. LAB L501.1110 >60 mL/min Normal EST GFR 66 Result Comment: Non- GFR Calc LAB L501.1115 >60 mL/min Normal EST GFR - AA 79 Result Comment: GFR Calc LAB L501.1255 ml/min Normal Estimated CRCL 47.84 LAB L501.1300 10-20 RATIO Normal BUN/CRE 13.0 LAB L501.2200 8.5-10 mg/dL Normal .1 CA 8.7 LAB L501.5300 136-14 mmol/L Normal 5 NA 137 LAB L501.5600 3.5-5. mmol/L Normal 1 K 4.4 LAB L501.5900 98-107 mmol/L Normal CL 103 LAB L501.6100 21.0-3 mmol/L Normal 2.0 CO2 28.0 LAB L501.6200 5-15 Normal GAP 6 Performed By: #### L500.2500, L501.4010 #### [facility] [address] [place], [address] TROPONIN-I Collected: 08/10/2017 Status: F Source: [place] 7:38 PM [facility] REPOSITORY TYPE CODE TESTS RESULT OUT OF RANGE REFERENCE UNITS LAB L501.4010 <0.045 ng/mL Normal < 0.015 TROPONIN-I Result Comment: TROPONIN-I EXPECTED VALUES <0.045 Negative 0.045 - 0.590 Consistent with Cardiac Damage > OR = 0.600 Critical Value Not every elevated troponin is indicative of [place]. These values should be used with clinical judgement in examining the patient's clinical picture for diagnosis. To establish a diagnosis of KS versus myocardial injury, there must be a demonstrated rise and/or fall in the troponin values, in addition to ischemic symptoms, EKG changes, new regional wall motion abnormality, and/or angiographical evidence. PLEASE NOTE: REFERENCE RANGES EDITED 17 Performed By: #### L500.2500, L501.4010 #### [facility] [address] [place], [address] BNP,B-TYPE NATRIURETIC Collected: 08/10/2017 Status: F Source: [place]PT[facility] 7:38 PM [facility] REPOSITORY TYPE CODE TESTS RESULT OUT OF RANGE REFERENCE UNITS LAB L503.6620 0-100 pg/mL Normal B-TYPE 39.9 KATHERINE PEP Performed By: #### L503.6620 #### [facility] [address] [place], [address] DIGOXIN LEVEL Collected: 08/10/2017 Status: F Source: [place] 7:38 PM [facility] REPOSITORY TYPE CODE TESTS RESULT OUT OF RANGE REFERENCE UNITS LAB L501.7510 0.80-2.00 ng/mL Normal DIG 1.43 Performed By: #### L501.7510 #### [facility] [address] [place], [address] CHEST 1 VIEW Observed: 08/10/2017 Status: F Source: [place] ([facility]) 7:31 PM [facility] [facility] REPOSITORY [facility] Imaging Services [address] [place] [id number] Chest 1 View (Portable) MR#: [id number] Acct: [id number] Name: DARYA LARKIN Judi Rep #: [id number] : 1955 F 62 From: Danny Hale MD PCP: Camden Burger Status: REG ER Study: Chest 1 View (Portable) Date of Exam: 08/10/17 Exam# [id number] Ordering Dr: Ross Rojas MD STUDY: X-RAY CHEST REASON FOR EXAM: Female, 62 years old. Chest pain. Shortness of breath. TECHNIQUE: Single AP portable view of the chest. COMPARISON: July 10, 2017. FINDINGS: The lungs are clear and expanded. Stable granulomatous calcifications. There is no demonstrated pleural abnormality. Normal size heart. Normal mediastinum and sangeeta. Normal visualized pulmonary arteries. Normal visualized aortic arch and descending thoracic aorta. Normal visualized thoracic spine. Normal visualized ribs, clavicles, and shoulders. There is no demonstrated abnormality of the visualized soft tissue structures of the upper abdomen. RAD/Chest 1 View (Portable) IMPRESSION: Degenerative changes, as described above. No demonstrated acute cardiopulmonary process. Electronically Signed: Danny Hale MD at 20:18 EDT , Service support , CC: Camden Burger; Ross Rojas MD Eyeglass Inspector: Signed 12 LEAD ELECTROCARDIOGRAM Observed: 07/15/2017 Status: F Source: [place] 2:04 PM [facility] REPOSITORY [facility] Cardiovascular Services [address] [place] [address] 12 Lead EKG 07/10/17 1806 MR#: [id number] Acct: [id number] Name: DARYA LARKIN Rep #: [id number] : 1955 61 From: Camden Mccormick MD Attending Dr: Jo Esposito Status: DIS IN Ordering Dr: Sobia Roldan MD Date: 07/10/17 Location: [facility] Sex: F C Admitted: 07/10/17 Test Reason : CP Blood Pressure : / mmHG Vent. Rate : 091 BPM Atrial Rate : 300 BPM P-R Int : 000 ms QRS Dur : 090 ms QT Int : 362 ms P-R-T Axes : 000 071 -13 degrees QTc Int : 445 ms Atrial fibrillation Incomplete right bundle branch block ST AND T wave abnormality, consider inferolateral ischemia Abnormal ECG Confirmed by SPENCER DELGADO, CAMDEN ([id number]), photography editor DIANA GALVEZ ([id number]) on 07/15/2017 2:04:14 PM Referred By: Jaime Shah Confirmed By:CAMDEN MCCORMICK MD 07/15/17 1404 Date Camden Mccormick MD CC: Camden Burger; Jo Esposito; Sobia Roldan MD; Camden Burger MD Signed CNPN Observed: 07/15/2017 Status: COMPLETED Source: [place] 12:00 AM [facility] REPOSITORY Telephone (CAWSTR) DARYA LARKIN ([id number]) 1955 F Date Time Provider Department 07/15/17 SHANE PITTS During your visit today, we recorded the following information about you: Lashawn Donald LPN 07/15/2017 11:29 AM Signed Nurse from [facility] in wanting to know if patient can have an event monitor done here. She states patient was sent home from the hospital with an order and they are not sure where to have this done. She notes patient was in the hospital for AF and syncope.ROBI Jolly MD 07/15/2017 11:55 AM Signed Order placed. MD Kate Campos RN 07/15/2017 4:16 PM Signed Please contact and make nurse apt Kate Kincaid RN 07/16/2017 12:49 PM Signed Ro phoned and given provider's message below. Faxed encounter to [facility], per Ro request. . 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 Any suggestions, how did you reach her previously Thank you Kate Villalba RN 07/22/2017 12:01 PM Signed I believe pt is at [facility] Kate Constantino PSR 07/22/2017 1:36 PM Signed I attempted to contact patient through [facility], left a message for someone to return my call. Klarissa Constantino PSR 07/24/2017 8:44 AM Signed 2nd Attempt to contact patient through [facility] at [phone]. I left a message for their office to return the call to make a nurse appointment for the event monitor to be placed. Klarissa Constantino PSR 07/24/2017 1:07 PM Signed Spoke with [facility] employee and scheduled a nurse appointment on , July 30, 2017 at 2 pm for patient. Allergies As of Date: 07/15/2017 Noted Allergy Reaction bee stings [Other] 08/28/2009 7 - Swelling LEVAQUIN (LEVOFLOXACIN) 08/25/2006 PENICILLINS 12/17/2004 11 - Vomiting Comments: Was able to take amoxil PERCOCET (OXYCODONE-ACETAMINOPHEN)07/18/2010 11 - Vomiting Date Reviewed: 04/24/2017 Reviewed by: Lashawn Donald - Fully Assessed Reason for Visit: Orders [681] Primary Visit Diagnosis:Syncope, unspecified syncope type [R55] Order(s):OUTSIDE VENDOR CARDIAC OUTPATIENT TELEMETRY [[id number]] Order #: [id number]: 1 Prescriptions as of 07/15/2017 Sig: PROPRANOLOL 10 MG TABLET Take 10 mg by mouth three raphael* FAMOTIDINE 20 MG TABLET Take 20 mg by mouth twice nicholas* GABAPENTIN 100 MG CAPSULE Take 100 mg by mouth three ti* BUDESONIDE-FORMOTEROL HFA 160* Inhale 2 Puffs as instructed * FUROSEMIDE 20 MG TABLET Take 2 tablets by mouth twice* POTASSIUM CHLORIDE ER 10 MEQ * Take 1 tablet by mouth twice * RIVAROXABAN 20 MG TABLET Take 1 tablet by mouth daily * IPRATROPIUM-ALBUTEROL 0.5 MG-* Inhale 3 mL as instructed fou* POLYETHYLENE GLYCOL 3350 17 G* Take 17 g by mouth once daily. ALBUTEROL SULFATE HFA 90 MCG/* Inhale 2 Puffs as instructed * INSULIN ASPART U-100 100 UNI* Inject 5 Units subcutaneously* DIGOXIN 250 MCG TABLET Take 1 tablet by mouth once d* MOMETASONE-FORMOTEROL HFA 200* Inhale 1 Puff as instructed t* LANTUS SOLOSTAR U-100 INSULIN* INJECT 65 UNITS SUBCUTANEOUSL* ATORVASTATIN 40 MG TABLET Take 1 tablet by mouth once d* LISINOPRIL 5 MG TABLET Take 1 tablet by mouth once d* BLOOD SUGAR DIAGNOSTIC STRIPS Test 3 times per day. Insuli* PEN NEEDLE, DIABETIC 32 GAUGE* Use one needle for each dose.* BUSPIRONE 10 MG TABLET Take 1 tablet by mouth three * BLOOD-GLUCOSE METER KIT Glucose Meter of Choice - Kit* COMPOUNDED PRESCRIPTION Pull ups: 1 box: DX: CHF 11* COMPOUNDED PRESCRIPTION 2 plus depends: DX: debility,* DILTIAZEM SR 120 MG 24 HR CAP Take 1 capsule by mouth once * NITROGLYCERIN 0.4 MG SUBLINGU* Dissolve 1 tablet under the t* LANCETS 28 GAUGE Test 3 times per day. Insuli* * ALBUTEROL SULFATE 2.5 MG/3 ML* Inhale 1 vial via nebulizer 4* * WELLBUTRIN SR 150 MG TABLET, * Take one(1) tablet twice rigoberto* * PRILOSEC 20 MG CAPSULE,DELAYE* Take one(1) capsule daily. * COMPOUNDED PRESCRIPTION BD 1/2 cc syringe. Use as dir* * FREESTYLE SYSTEM KIT Test 3 times per day. Insuli* * COMPOUNDED PRESCRIPTION Pen tip needles. Use as direc* Problem List As Of Date 07/15/2017 Noted Resolved HTN (hypertension) [I10] CAD (coronary artery disease) [I25.10] More... Asthma [J45.909] OBST CHRON BRONCHITIS WITH EXAC [J44.1] More... CONGESTIVE HEART FAILURE NOS [I50.9] LUMB/LUMBOSAC DISC DEGEN [M51.37] Diabetes mellitus (HCC) [E11.9] INVALID FOR*04/17/2016 Recurrent major depression in partial remission*INVALID FOR* More... MORBID OBESITY [E66.01] INVALID FOR* Mixed hyperlipidemia [E78.2] INVALID FOR* DYSPHAGIA, OROPHARYNGEAL [R13.12] INVALID FOR*04/13/2008 Pain in limb [M79.609] INVALID FOR*04/17/2016 Tobacco use disorder [F17.200] INVALID FOR*07/06/[address] scan [R93.8] INVALID FOR*04/17/2016 More... Cardiomyopathy, Nonischemic [I42.8] INVALID FOR* More... 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*INVALID FOR*04/17/2016 Ankle instability [M25.373] INVALID FOR*04/17/2016 Sprain of ankle, unspecified site [S93.409A] INVALID FOR* Tibial plateau fracture [S82.143A] INVALID FOR*04/17/2016 Paroxysmal Atrial fibrillation (HCC) [I48.91] INVALID FOR* Primary osteoarthritis of right knee [M17.11] INVALID FOR* Chronic pain of right knee [M25.561, G89.29] INVALID FOR*04/17/2016 Pain of lower extremity [M79.606] INVALID FOR*04/17/2016 Noncompliance [Z91.19] INVALID FOR* Schizophreniform disorder, chronic condition (H* Encounter Status:Closed by Favian KINCAID RN on 07/16/17 PROCEDURE Observed: 07/15/2017 Status: COMPLETED Source: [place] 12:00 AM [facility] REPOSITORY HNO ID: [id number] Author: Shane Pitts Service: (none) Author Type: Physician Type: Procedures Filed: 08/18/2017 2:10 PM Note Text: See Report - BEDSIDE GLUCOSE Collected: 07/12/2017 Status: F Source: [place] 4:10 PM [facility] REPOSITORY TYPE CODE TESTS RESULT OUT OF REFERENCE UNITS RANGE LAB L501.080 70-110 mg/dL High BEDSIDE GLU 365 Result Comment: MANAGEMENT OF PATIENT CARE PER NURSING PROTOCOL Performed By: #### L501.080 #### [facility] Point of Care [address] [place] [address] DISCHARGE SUMMARY Observed: 07/12/2017 Status: F Source: [place] 1:18 PM [facility] REPOSITORY [facility] Medical Records Department [address] [place] [address] Discharge Summary 07/12/17 1038 MR#: [id number] Acct: [id number] Name: DARYA LARKIN Rep #: [id number] : 1955 61 From: Marie Hoover COACH WIRER-C PCP: Camden Burger Status: ADM IN Y Location: [place] [address] ADDENDUM by Jo Esposito on 07/12/17 at 1318 Code Visit ATTENDING PHYSICIAN DISCHARGE NOTE: I have seen and examined the patient independently and agree with the assessment, plan, history per Marie Hoover as noted. Discharge Diagnoses: Syncopal Event, Unclear Specific Etiology, discharged on 30- day event monitor per Cardiology Acute on Chronic COPD Exacerbation with Chronic Hypoxic Respiratory Failure CAD: Will continue home regimen asa, statin, BB. Permanent atrial fibrillation Diabetes mellitus type II Hypertension Hyperlipidemia Anxiety and Depression Tobacco Abuse, History of Obesity Discharge Summary: The patient is a 61 y/o F w/ PMHx: Obesity, History of Tobacco use prior, Anxiety and Depression, Chronic Hypoxic Respiratory Failure (2-3L NC baseline) w/ Chronic COPD, HTN, HLD, Diabetes mellitus type II, History of SVT, Permanent atrial fibrillation, CAD who presented to the [facility] ED on 07/10/17 with history of syncopal event, found slumped over in her chair at facility noted to have been outside in the sub w/ no reported chest pain upon improvement but noted increased dyspnea, wheezing. Patient admitted secondary to syncopal event w/ EKG changes w/ new anterior lateral ST depression. Stress test May 13, 2017 negative for ischemia. Echocardiogram 05/13/2017 showed an EF of 65%, mild aortic stenosis with repeat ECHO obtained during admission w/ hyperdynamic LV systolic function, EF 75%, mildly enlarged LA, lipomatous hypertrophy atrial septum, mild to moderate mitral annular calcification, trivial MV insufficiency, trivial TV insufficiency, mild aortic valve stenosis and aortic valve sclerosis, epicardial fat, small pericardial effusion, no echocardiographic indication of cardiac tamponade. Cardiac enzymes remained unremarkable. UA, Mag unremarkable. During admission patient admitted to recent increased wheezing and dyspnea, thus following repeat evaluation following admission, patient initiated on treatment for acute on chronic COPD exacerbation. She was maintained on home oxygen supplementation, continued ATC duonebs, PRN albuterol, initiated on IV solumedrol w/ oral prednisone transition upon discharge, deferred abx given no marked CBC WBC elevation and afebrile. Cardiology assess, felt work-up unremarkable thus far and given patient improvement from syncopal standpoint cleared from Cardiology standpoint for discharge to facility w/ planned 30-day event monitor w/ Cardiology follow-up. Additionally, given depressive mood, encouraged early follow-up with her therapist. Discharge Time: > 35 Minutes DAY OF DISCHARGE PROGRESS NOTE: Subjective: Patient without acute event overnight per self and nursing report. Patient noted improvement of dyspnea, resolved prior wheezing complaint. She was amenable to event monitor for syncope of uncertain etiology per discussions w/ Dr. Mccormick. Patient denies fever, chills, nausea, emesis, abdominal pain, chest pain or worsened dyspnea. Patient agreeable to discharge to facility. Patient will be discharged with follow- up with primary care physician within 3-5 days in addition to Cardiology per their discretion. Objective: T 97.7, heart rate 69, BP 99/51, respiratory 18, 95% on 2 L nasal cannula. Physical Examination: General: awake, alert, oriented x 3 and cooperative, seated upright in bedside chair, improved appearance. Skin: normal color, turgor, no icterus, cyanosis. HEENT: AT/NC, EOMI, PERRLA, MMM. Lungs: Improved BS, improved BL bases, improved effort, no current wheezing. Heart: Irregular; no gallop, rub audible. Abdomen: soft, obese, NTTP, ND, normal BS. Extremities: no cyanosis, clubbing, or edema. Neurological: patient awake, alert, oriented x 3; cognitive function intact; pupils equally reactive to light and accomodation; cranial nerves II-XII grossly normal, moving all 4 extremities, no focal deficits, strength improved, moderately globally decreased. Psychiatric: affect appears flat, admits to depression, no SI, notes following with therapist, no acute evidence anxiety feelings. Assessment and Plan: Please see hospital summary above. Inpatient E AND M: [id number] Disch Hosp 07/12/17 1318 <Electronically signed by Jo Esposito > Date Jo Esposito cc: FRANKLIN Hoover; Camden Burger; Jo Esposito; Camden Burger MD * Signed Discharge Date and Diagnosis Date of Admission: 07/10/17 Date of Discharge: 07/12/17 - Primary Discharge Diagnosis Active and Suspected Problems (Last Reviewed 05/20/17 @ 12:52 by Mary Ruiz) 1. Syncope 2. Acute on chronic COPD exacerbation with chronic hypoxic respiratory failure - Secondary Discharge Diagnosis Chronic Problems (Last Reviewed 05/20/17 @ 12:52 by Mary Ruiz) SOB (shortness of breath) (Chronic) Osteoporosis (Chronic) Hypersomnia (Chronic) Former smoker (Chronic) Quit in the fall 2016 Hypomagnesemia (Chronic) HTN (hypertension) (Chronic) Morbid obesity with BMI of 40.0-44.9, adult (Chronic) COPD (chronic obstructive pulmonary disease) (Chronic) Chronic pain (Chronic) Chronic atrial fibrillation (Chronic) Non-compliance (Chronic) withn follow up with pulmonary Chronic hypoxemic respiratory failure (Chronic) Cardiomyopathy (Chronic) EF in Oct 2015 45-50 Hyperlipemia (Chronic) Type 2 diabetes mellitus (Chronic) GERD (gastroesophageal reflux disease) (Chronic) Anxiety (Chronic) Insomnia (Chronic) Hospital Course and Treatment Imaging Results: Diagnostic Data Chest X-Ray 07/10/17 18:37 IMPRESSION: No acute cardiopulmonary pathology Electronically Signed: Moses Diamond MD at 19:08 EDT , Service support , Dr. Mccormick-cardiology. Operations: None Procedures: 2-D Echocardiogram Summary of Care Provided: Patient is a 61-year-old female admitted 07/10/2017 due to syncope. She has a past medical history of COPD, chronic atrial fibrillation, hypertension, type 2 diabetes mellitus, hyperlipidemia, GERD, anxiety, chronic hypoxic respiratory failure, obesity, cardiomyopathy. 1. Syncope-troponin negative. Stress test May 13, 2017 negative for ischemia. Echocardiogram 05/13/2017 showed an EF of 65%, mild aortic stenosis. EKG on admission showed new anterior lateral ST depression. Cardiology consulted. Repeat echo showed an EF of 75%. TSH within normal limits. Urinalysis unremarkable. Orthostatic vitals negative. Patient will be discharged with 30 day event monitor. Follow-up with cardiology in 4-6 weeks following event monitor completion. 2. Acute COPD exacerbation on chronic severe COPD with chronic hypoxic respiratory failure-continue home inhaler regimen. Continue supplement oxygen to maintain O2 at or above 90%. Prednisone taper at discharge. 3. Chronic atrial fibrillation-rate controlled. Continue Cardizem, propanolol, Xarelto. 4. Type 2 diabetes mellitus-continue home insulin regimen. 5. Hypertension-stable, continue home Cardizem, Lasix, lisinopril, propanolol, digoxin regimen. 6. Hyperlipidemia-continue statin. 7. History of mild cardiomyopathy-ejection fraction of 45-50%. 8. GERD-continue home famotidine regimen. 9. Anxiety-continue home buspirone, bupropion regimen. 10. Obesity-encouraged diet and lifestyle modifications. General: Alert, Oriented x3, Cooperative, No apparent distress HEENT: Atraumatic, PERRLA, EOMI, Normocephalic Oral: Moist Mucosa Neck: Supple, No JVD, Negative Carotid Bruits Lungs: Diminished, Wheezes Cardiovascular: Regular rate, Normal S1, Normal S2, No murmurs, - - A.fib. Abdomen: Bowel Sounds Present, Soft, Non Tender, Non-Distended Extremities: No clubbing, No cyanosis, No edema, Capillary Refill Less than 3 Seconds Skin: No rashes, No breakdown Musculoskeletal: No Tenderness to Palpation of Joints or Extremities Neurological: Cranial nerves II-XII grossly intact, Neuro grossly intact Psych/Mental Status: Normal Affect, Appropriate Patient seen and examined prior to discharge. Physical assessment as noted above. Patient stable for discharge to assisted living facility. She will need to return for a 30 day event monitor placement. Follow-up with primary care physician in 1 week and cardiology in 4-6 weeks. This patient was seen by FRANKLIN Cardenas under the supervision of Dr. Esposito. Discharge Diet: Low fat/ Low Cholesterol, Carb Control Diet Discharge Activity: Return to Normal Activity Call your doctor if you observe: Shortness of breath, Dizziness, Fainting spells, Chest pain, Increased palpitations (irregular heartbeat) Home Medications: Medications to take at Discharge Acetaminophen [Tylenol] 2 tab PO Q6H PRN 05/12/17 Albuterol Aerosols [Ventolin Aerosols] 2.5 mg INHALATION Q2H PRN PRN 05/12/17 Atorvastatin Calcium [Lipitor] 40 mg PO QHS 05/12/17 Budesonide/Formoterol 160/4.5 [Symbicort 160/4.5 Mcg Inhaler (SP)] 2 puff INHALATION BID 05/12/17 Bupropion HCl [Bupropion HCl Sr] 150 mg PO BID 05/12/17 Buspirone HCl 10 mg PO TID 05/12/17 Digoxin 250 mcg PO DAILY 05/12/17 Diltiazem [Cardizem] 120 mg PO BID 05/12/17 Docusate Sodium [Colace] 100 mg PO QHS 05/12/17 Famotidine [Pepcid] 20 mg PO BID 05/12/17 Furosemide [Lasix] 40 mg PO BID 05/12/17 Gabapentin [Neurontin] 100 mg PO TID 05/12/17 Glucagon,Human Recombinant [Glucagon Emergency Kit] 1 mg IJ PRN PRN 05/12/17 Guaifenesin [Mucinex] 1,200 mg PO BID 05/12/17 Insulin Glargine,Hum.rec.anlog [Basaglar Kwikpen U-100] 55 unit SQ QHS 05/12/17 Insulin Lispro [Humalog] 12 unit SQ TIDCM 05/12/17 Ipratropium/Albuterol Sulfate [Duoneb] 3 ml INHALATION Q4H.RT 05/12/17 Lisinopril [Prinivil] 5 mg PO DAILY 05/12/17 Mag Hydrox/Al Hydrox/Simeth [Antacid Liquid] 30 ml PO Q6H PRN 05/12/17 Polyethylene Glycol 3350 [Miralax] 17 gm PO DAILY 05/12/17 Potassium Chloride [K-Dur] 10 meq PO BID 05/12/17 Propranolol HCl [Inderal (Beta Lou)] 10 mg PO BID 05/12/17 Rivaroxaban [Xarelto] 20 mg PO DAILY 05/12/17 Sennosides/Docusate Sodium [Senna-Docusate Sodium Tablet] 2 tab PO DAILY PRN 05/12/17 Prednisone See Taper PO DAILY #30 tab 07/12/17 Following Prescrptions Were Given to Patient: Prednisone See Taper PO DAILY #30 tab Other Amb Orders: 30-Day Event Recorder [[facility]] Time Frame: 2 Days, Location: None Selected Primary Care Physician: Camden Burger [Primary Care Provider] - Please follow up with your Primary Care Physician in: 1 Week Please Follow Up With: Camden Mccormick MD When: 4-6 Following event monitor Disposition: Asstd Living/Non-Skill NH Minutes spent on discharge:: 35 Patient Condition:: Stable Medical Necessity - Tobacco Use Smoking Status: Never smoker Tobacco Use: Cigarettes Meaningful Use Info Meaningful Use Diagnoses (Choose all that apply): None applicable 07/12/17 1045 <Electronically signed by Marie FOFANAC> Date Marie Hoover COACH WIRER-C 07/12/17 1309<Electronically signed by Jo Esposito > Cosigner Signature (if applicable): Date Jo Esposito CC: COACH WIRER-C Marie Hoover; Camden Burger; Jo Esposito; Camden Burger MD Signed BEDSIDE GLUCOSE Collected: 07/12/2017 Status: F Source: [place] 11:37 AM [facility] REPOSITORY TYPE CODE TESTS RESULT OUT OF REFERENCE UNITS RANGE LAB L501.080 70-110 mg/dL High BEDSIDE GLU 419 Result Comment: MANAGEMENT OF PATIENT CARE PER NURSING PROTOCOL Performed By: #### L501.080 #### [facility] Point of Care [address] [place] [address] DISCHARGE INSTRUCTION Observed: 07/12/2017 Status: F Source: [place] 11:12 AM [facility] REPOSITORY [facility] Medical Records Department [address] [place] [address] Instructions for Home/Discharge Instructions 07/12/17 1033 MR#: [id number] Acct: [id number] Name: DARYA LARKIN Rep #: [id number] : 1955 61 From: Marie REID PCP: Camden Burger Status: ADM IN ADDENDUM by COACH WIRER-C Marie Hoover on 07/12/17 at 1112 Follow up with outpatient counselor for depression in 1 Week. Date Marie Hoover cc: Camden Burger; Camden Mccormick MD; Camden Burger MD * Signed - Discharge Diagnoses Current Active Problems: Current Active and Chronic Problems (Last Reviewed 05/20/17 @ 12:52 by Mary Ruiz) Syncope (Acute) Chest pain (Acute) You will use the following diet at home:: Calorie/Carbohydrate Controlled (specify 1200, 1400, etc), Cardiac Discharge Activity: Return to Normal Activity Call your doctor if you observe: Shortness of breath, Dizziness, Fainting spells, Chest pain, Increased palpitations (irregular heartbeat) Allergies/Adverse Reactions: Allergies venom-honey bee [bee venom (honey bee)] Allergy (Verified 07/10/17 18:02) Swelling levofloxacin [From Levaquin] Adverse Reaction (Verified 07/10/17 18:02) Nausea oxycodone HCl [From Percocet] Adverse Reaction (Verified 07/10/17 18:02) Nausea Penicillins Adverse Reaction (Verified 07/10/17 18:02) Nausea/Vom/Diarrhea Medications to take at Discharge Acetaminophen [Tylenol] 2 tab PO Q6H PRN 05/12/17 Albuterol Aerosols [Ventolin Aerosols] 2.5 mg INHALATION Q2H PRN PRN 05/12/17 Atorvastatin Calcium [Lipitor] 40 mg PO QHS 05/12/17 Budesonide/Formoterol 160/4.5 [Symbicort 160/4.5 Mcg Inhaler (SP)] 2 puff INHALATION BID 05/12/17 Bupropion HCl [Bupropion HCl Sr] 150 mg PO BID 05/12/17 Buspirone HCl 10 mg PO TID 05/12/17 Digoxin 250 mcg PO DAILY 05/12/17 Diltiazem [Cardizem] 120 mg PO BID 05/12/17 Docusate Sodium [Colace] 100 mg PO QHS 05/12/17 Famotidine [Pepcid] 20 mg PO BID 05/12/17 Furosemide [Lasix] 40 mg PO BID 05/12/17 Gabapentin [Neurontin] 100 mg PO TID 05/12/17 Glucagon,Human Recombinant [Glucagon Emergency Kit] 1 mg IJ PRN PRN 05/12/17 Guaifenesin [Mucinex] 1,200 mg PO BID 05/12/17 Insulin Glargine,Hum.rec.anlog [Basaglar Kwikpen U-100] 55 unit SQ QHS 05/12/17 Insulin Lispro [Humalog] 12 unit SQ TIDCM 05/12/17 Ipratropium/Albuterol Sulfate [Duoneb] 3 ml INHALATION Q4H.RT 05/12/17 Lisinopril [Prinivil] 5 mg PO DAILY 05/12/17 Mag Hydrox/Al Hydrox/Simeth [Antacid Liquid] 30 ml PO Q6H PRN 05/12/17 Polyethylene Glycol 3350 [Miralax] 17 gm PO DAILY 05/12/17 Potassium Chloride [K-Dur] 10 meq PO BID 05/12/17 Propranolol HCl [Inderal (Beta Lou)] 10 mg PO BID 05/12/17 Rivaroxaban [Xarelto] 20 mg PO DAILY 05/12/17 Sennosides/Docusate Sodium [Senna-Docusate Sodium Tablet] 2 tab PO DAILY PRN 05/12/17 Prednisone See Taper PO DAILY #30 tab 07/12/17 The following prescriptions were given: Prednisone See Taper PO DAILY #30 tab Orders to be completed after discharge: 30-Day Event Recorder [[facility]] Time Frame: 2 Days, Location: None Selected Primary Care Physician: Camden Burger [Primary Care Provider] - Please follow up with your Primary Care Physician in: 1 Week Please Follow Up With: Camden Mccormick MD When: 4-6 Following event monitor Proposed Discharge Date: 07/12/17 07/12/17 1037 <Electronically signed by Marie REID> Date Marie REID CC: Camden Burger; Camden Mccormick MD; Camden Burger MD BEDSIDE GLUCOSE Collected: 07/12/2017 Status: F Source: [place] 6:51 AM [facility] REPOSITORY TYPE CODE TESTS RESULT OUT OF REFERENCE UNITS RANGE LAB L501.080 70-110 mg/dL High BEDSIDE GLU 291 Result Comment: MANAGEMENT OF PATIENT CARE PER NURSING PROTOCOL Performed By: #### L501.080 #### [facility] Point of Care [address] [place], [place] [id number] CBC-COMPLETE BLOOD CNT Collected: 07/12/2017 Status: F Source: [place] NO DIFF 5:28 AM [facility] REPOSITORY TYPE CODE TESTS RESULT OUT OF RANGE REFERENCE UNITS LAB L100.1000 4.4-11.0 K/mm3 Normal WBC 11.0 LAB L100.1200 4.2-5.4 M/mm3 Low RBC 3.85 LAB L100.1300 12.0-15.0 g/dl Low HGB 9.9 LAB L100.1400 37-47 % Low HCT 30.6 LAB L100.1500 81-99 fL Low MCV 79.5 LAB L100.1600 27.0-32.0 pg Low MCH 25.7 LAB L100.1700 32-36 g/gl Normal MCHC 32.4 LAB L100.1810 11.6-14.6 % High RDW CV 15.9 LAB L100.1820 35.1-43.9 fl High RDW SD 45.5 LAB L100.1900 150-450 K/mm3 Normal PLT 284 LAB L100.2000 6.2-12.0 fl Normal MPV 11.4 Performed By: #### L100.0500 #### [facility] [address] [place], [address] BASIC METABOLIC Collected: 07/12/2017 Status: F Source: [place] PROFILE (BMP) 5:28 AM [facility] REPOSITORY TYPE CODE TESTS RESULT OUT OF RANGE REFERENCE UNITS LAB L501.0100 74-106 mg/dL High GLU 272 Result Comment: Glucose result greater than or equal to 200 mg/dL suggests DIABETES MELLITUS per A.D.A. criteria. Please note revised GLUCOSE reference range effective 2017. LAB L501.1000 7-18 mg/dL Low BUN 6 LAB L501.1100 0.55-1.02 mg/dL Normal CREAT,SERUM 0.59 Result Comment: The validity of the calculated GFR AND GFRAA in patients over 70 years has not been determined. Clinical correlation is essential. LAB L501.1110 >60 mL/min Normal EST GFR 110 Result Comment: Non- GFR Calc LAB L501.1115 >60 mL/min Normal EST GFR - AA 133 Result Comment: GFR Calc LAB L501.1255 ml/min Normal Estimated CRCL 75.56 LAB L501.1300 10-20 RATIO Normal BUN/CRE 10.2 LAB L501.2200 8.5-10 mg/dL Low .1 CA 8.3 LAB L501.5300 136-14 mmol/L Low 5 NA 134 LAB L501.5600 3.5-5. mmol/L Normal 1 K 4.3 LAB L501.5900 98-107 mmol/L Normal CL 105 LAB L501.6100 21.0-3 mmol/L Low 2.0 CO2 19.0 LAB L501.6200 5-15 Normal GAP 10 Performed By: #### L500.2500 #### [facility] [address] [place], [address] BEDSIDE GLUCOSE Collected: 07/11/2017 Status: F Source: [place] 9:21 PM [facility] REPOSITORY TYPE CODE TESTS RESULT OUT OF REFERENCE UNITS RANGE LAB L501.080 70-110 mg/dL High BEDSIDE GLU 387 Result Comment: MANAGEMENT OF PATIENT CARE PER NURSING PROTOCOL Performed By: #### L501.080 #### [facility] Point of Care [address] [place] [address] ECHOCARDIOGRAM COMPLETE Observed: 07/11/2017 Status: F Source: [place] 5:10 PM [facility] REPOSITORY [facility] Cardiovascular Services [address] [facility] [address] [facility] [place] [address] Echo Complete 07/11/17 0758 MR#: [id number] Acct: [id number] Name: DARYA LARKIN Rep #: [id number] : 1955 61 From: Camden Mccormick MD Attending Dr: Jo Esposito Status: ADM IN Ordering Dr: Chau López MD Date: 07/11/17 Location: [facility] Sex: F C Admitted: 07/10/17 Reason For Study: Chest Pain Procedure This was a 2D Doppler, Color Flow transthoracic echocardiogram. Technically difficult study, patient had to sit up due to back pain. The study was technically difficult. Exam performed portable in patient room. Left Ventricle Normal LV size. Left ventricular systolic function is hyperdynamic. The estimated ejection fraction is 75 %. Unable to assess diastolic dysfunction. No regional wall motion abnormalities noted. Right Ventricle Normal RV size. Normal systolic function. Atria The left atrium is mildly enlarged. Normal right atrium. Lipomatous hypertrophy of the atrial septum. No doppler evidence for ASD. Mitral Valve There is mild to moderate mitral annular calcification. Extension of the mitral annular calcification onto the posterior mitral valve leaflet. Trivial mitral valve insufficiency. Tricuspid Valve Normal tricuspid valve. Trivial tricuspid valve insufficiency. Unable to estimate RV systolic pressure/pulmonary artery pressure due to technically difficult study. Aortic Valve The aortic valve is not well visualized. Based upon spectral doppler information obtained there appears to be aortic valve sclerosis / mild aortic valve stenosis. Pulmonic Valve The pulmonic valve is not well visualized. Great Vessels Normal sized aortic root. Pericardium/Pleural Epicardial fat. Small pericardial effusion. There are no echocardiographic indications of cardiac tamponade. MMode/2D Measurements AND Calculations LVOT diam: 1.8 cm LAV(MOD-bp): 55.0 ml LA A4 area: 21.8 cm2 LVOT area: 2.7 cm2 LAV(MOD-bp) Indexed: 28.5 ml/m2 LAV(MOD-sp2): 47.7 ml LAV(MOD-sp4): 62.5 ml Time Measurements MV dec time: 0.23 sec Doppler Measurements AND Calculations MV E max jami: 149.4 cm/sec Ao V2 max: 245.3 cm/sec LV V1 max: 165.4 cm/sec MV A max jami: 49.1 cm/sec Ao max P.1 mmHg LV V1 max P.9 mmHg MV E/A: 3.0 Ao V2 mean: 135.9 cm/sec LV V1 mean P.4 mmHg Ao mean P.1 mmHg LV V1 mean: 108.0 cm/sec Ao V2 VTI: 34.0 cm LV V1 VTI: 24.4 cm ANUJA(I,D): 1.9 cm2 ANUJA(V,D): 1.8 cm2 SV(LVOT): 65.5 ml PA V2 max: 167.6 cm/sec Interpretation Summary The study was technically difficult. Left ventricular systolic function is hyperdynamic. The estimated ejection fraction is 75 %. The left atrium is mildly enlarged. Lipomatous hypertrophy of the atrial septum. There is mild to moderate mitral annular calcification. Extension of the mitral annular calcification onto the posterior mitral valve leaflet. Trivial mitral valve insufficiency. Trivial tricuspid valve insufficiency. Based upon spectral doppler information obtained there appears to be aortic valve sclerosis / mild aortic valve stenosis. Epicardial fat. Small pericardial effusion. There are no echocardiographic indications of cardiac tamponade. Unable to estimate RV systolic pressure/pulmonary artery pressure due to technically difficult study. Unable to assess diastolic dysfunction. Ordering Physician: Chau López Referring Physician: Jaime Shah Performed By: Tyrone Darby RCS 07/11/17 1710 Date Camden Mccormick MD CC: Camden Burger; Jo Esposito; Chau López MD; Camden Burger MD Date Dictated: 07/11/17 0758 Date Transcribed: 07/11/171709 Eyeglass Inspector: Signed BEDSIDE GLUCOSE Collected: 07/11/2017 Status: F Source: [place] 4:53 PM [facility] REPOSITORY TYPE CODE TESTS RESULT OUT OF REFERENCE UNITS RANGE LAB L501.080 70-110 mg/dL High BEDSIDE GLU 302 Result Comment: MANAGEMENT OF PATIENT CARE PER NURSING PROTOCOL Performed By: #### L501.080 #### [facility] Point of Care [address] [place] [address] CONSULTATION Observed: 07/11/2017 Status: F Source: [place] 3:17 PM [facility] REPOSITORY [facility] Medical Records Department [address] [place] [address] Consultation 07/11/17 1506 MR#: [id number] Acct: [id number] Name: DARYA LARKIN Rep #: [id number] : 1955 61 From: Camden Mccormick MD PCP: Camden Burger Status: ADM IN Location: [place] [id number] Problem List (1) Syncope Status: Acute (2) Chronic atrial fibrillation Status: Chronic (3) Hyperlipemia Status: Chronic Qualifiers: (4) HTN (hypertension) Status: Chronic Qualifiers: (5) Type 2 diabetes mellitus Status: Chronic Qualifiers: (6) COPD (chronic obstructive pulmonary disease) Status: Chronic Qualifiers: (7) Morbid obesity with BMI of 40.0-44.9, adult Status: Chronic Reason for Consult Date of Consultation: 07/11/17 History of Present Illness: The patient is a 61 year old white female with a past medical history of atrial fibrillation superimposed upon hyperlipidemia, hypertension, diabetes mellitus, COPD, and obesity who is referred for evaluation of syncope. She states that she was sitting in a wheelchair, outside, and apparently slumped over . She does not recall sensing any obvious chest discomfort or difficulty breathing. She does not recall having any obvious palpitations, sensation of nausea, emesis, or becoming diaphoretic. She does not recall how long she was reportedly unconscious. She was brought to the hospital for further evaluation. She was placed in the PCU. She is undergone cardiac enzymes that have been negative. Her ECG demonstrated atrial fibrillation with nonspecific ST and T- wave abnormality. It appears she recently underwent evaluation with a transthoracic echocardiogram on 05/13/2017. At that time the left ventricle was thought to be normal with an LVEF of 65% with mild focal aortic valve calcification and a diagnosis of mild aortic valve stenosis. She also recently, on the same day, underwent a pharmacologic stress nuclear imaging study. Per the report this was thought to be a normal pharmacologic myocardial perfusion stress test. Her gated LVEF was reported at 83%. [] Past Medical History Allergies/Adverse Reactions: Allergies venom-honey bee [bee venom (honey bee)] Allergy (Verified 07/10/17 18:02) Swelling levofloxacin [From Levaquin] Adverse Reaction (Verified 07/10/17 18:02) Nausea oxycodone HCl [From Percocet] Adverse Reaction (Verified 07/10/17 18:02) Nausea Penicillins Adverse Reaction (Verified 07/10/17 18:02) Nausea/Vom/Diarrhea Home Medications: Ambulatory Orders Medication Instructions Recorded Acetaminophen [Tylenol] 2 tab PO Q6H PRN 05/12/17 Past Medical History (Chronic Problems): Chronic Problems (Last Reviewed 05/20/17 @ 12:52 by Mary Ruiz) SOB (shortness of breath) (Chronic) Osteoporosis (Chronic) Hypersomnia (Chronic) Former smoker (Chronic) Quit in the fall 2016 Hypomagnesemia (Chronic) HTN (hypertension) (Chronic) Morbid obesity with BMI of 40.0-44.9, adult (Chronic) COPD (chronic obstructive pulmonary disease) (Chronic) Chronic pain (Chronic) Chronic atrial fibrillation (Chronic) Non-compliance (Chronic) withn follow up with pulmonary Chronic hypoxemic respiratory failure (Chronic) Cardiomyopathy (Chronic) EF in Oct 2015 45-50 Hyperlipemia (Chronic) Type 2 diabetes mellitus (Chronic) GERD (gastroesophageal reflux disease) (Chronic) Anxiety (Chronic) Insomnia (Chronic) Surgical History: hysterectomy, tonsillectomy, - - Lumbar surgery. Psychiatric History: Anxiety, Depression COURTROOM REPORTER History: No pertinent COURTROOM REPORTER history - *Family History Maternal Family History: Family History (Last Reviewed 05/20/17 @ 12:52 by Mary Ruiz) Sister Arthritis Diabetes Father Cancer Aunt Diabetes History Items: - - She reports that she is unaware of what her mother's health history was like Paternal Family History: Family History (Last Reviewed 05/20/17 @ 12:52 by Mary Ruiz) Sister Arthritis Diabetes Father Cancer Aunt Diabetes History Items: Cancer, - - father with throat cancer. Sibling Family History: Family History (Last Reviewed 05/20/17 @ 12:52 by Mary Ruiz) Sister Arthritis Diabetes Father Cancer Aunt Diabetes History Items: Asthma, COPD, Hypertension Smoking Status: Never smoker Tobacco Use: Cigarettes Review of Systems - Review of Systems General: Denies: Fever, Night Sweats, Fatigue Cardiovascular: Reports: Shortness of Breath. Denies: Chest Discomfort, Orthopnea, PND, Peripheral Edema, Palpitations, Lightheadedness, Dizziness, Near Syncope, Syncope Respiratory: Denies: Cough, Sputum Production, Hemoptysis Gastrointestinal: Denies: Hematemesis, Hematochezia, Melena Genitourinary: Denies: Dysuria, Hematuria Skin: Denies: Rash Subjectve: This is a 61-year-old white female who appears to be resting comfortably at the moment in no acute distress. Objective: Vital Signs Temp Pulse Resp BP Pulse Ox 97.9 F 67 20 H 132/59 H 2 07/11/17 11:00 07/11/17 11:44 07/11/17 11:16 07/11/17 11:00 07/11/17 14:25 Oxygen Flow Rate (L/min) 3 Oxygen Delivery Method Nasal Cannula Weight: 210 lb 8.663 oz Body Mass Index (BMI) 39.7 Orthostatic Vital Signs Start: 07/11/17 00:21 Freq: q24h Status: Active Protocol: Activity Type Activity Date Activity User E-Sign Co-Sign Detail Recorded Client Recorded Date Recorded By Document 07/11/17 00:21 [facility] [id number] 07/11/17 00:23 JMP Intake and Output for Last 24 Hours Intake Total 1832 / 1832 Output Total 450 / 450 Balance 1382 / 1382 General: Awake, Alert, Oriented x 3, Cooperative, No Acute Distress, Obese HEENT: Atraumatic, Normocephalic, PERRL, EOMI, Sclera Non Icteric Oral: Moist Mucosa Neck: Supple, Good ROM, No JVD Lungs: Rhonchi, Inspiratory Wheezes - Enrike, Expiratory Wheezes-Enrike Cardiovascular: Irregular Rhythm, Normal S1, Normal S2 Vascular: No Carotid Bruits Abdomen: Bowel Sounds Present, Soft, Non Tender Extremities: No Cyanosis, No Clubbing, No edema 07/10/17 23:15: Troponin I < 0.015 07/11/17 01:37: Troponin I < 0.015 07/11/17 05:10: B-Natriuretic Peptide 38.2 07/11/17 05:10: D-Dimer Quant (PE/DVT) < 0.27 L 07/11/17 05:10: Total Bilirubin 0.30, Direct Bilirubin 0.08, Triglycerides 242 H, Cholesterol 120, LDL Cholesterol 37, VLDL Cholesterol 48 H, HDL Cholesterol 35 L 07/11/17 05:10: Digoxin 0.97 07/11/17 05:10: Troponin I < 0.015 07/11/17 05:10: Magnesium 1.8 07/11/17 12:25: Urine Color Yellow, Urine Clarity Clear, Urine pH 6.0, Ur Specific [place] 1.015, Urine Protein 15 H, Urine Glucose (UA) 100 H, Urine Ketones Negative, Urine Occult Blood Negative, Urine Nitrite Negative, Urine Bilirubin Negative, Urine Urobilinogen Normal, Ur Leukocyte Esterase 25 H, Urine RBC 0 SEEN, Urine WBC 0-5 SEEN Rhythm: Atrial fibrillation EKG: As noted above ECHO: As noted above Stress Test: As noted above CXR: Preliminary evaluation: No acute cardiopulmonary disease process: Please see official report Assessment/Plan 1. Syncope The patient reportedly had a syncopal event. She seems to be unclear of any obvious symptoms prior to or following her event. She is unclear as to how long she reportedly was unconscious. She has been undergoing cardiovascular evaluation. She has remained in atrial fibrillation which appears to be chronic/permanent for her. There is been no objective evidence of acute coronary syndrome by cardiac enzyme, etc. She recently underwent noninvasive evaluation as noted above with no definitive findings of diminished LV systolic function, hemodynamically significant valvular heart disease, or evidence of myocardial ischemia to suggest underlying CAD. Thus it is unclear as to whether or not this event, after happening outside, was related to concerns of possible decreased intravascular volume, orthostasis type changes, or some other underlying cardiovascular issues such as a cardiac dysrhythmia that has yet to be defined. She is being evaluated for any other obvious etiologies based upon her other conditions as well. At the present time she will continue to be monitored. She will continue evaluation care of her other conditions. Consideration will be given as to how to proceed, if there is no other obvious etiology, with respect further diagnostic studies. This may include future outpatient ambulatory event monitoring and/or implantable loop recorder, etc. 2. Atrial fibrillation The patient does have a history of underlying atrial fibrillation. She has been on rate control therapy and anticoagulant therapy. Her rate and rhythm will be monitored. 3. Hyperlipidemia The patient will continue evaluation care as deemed appropriate. 4. Hypertension The patient's blood pressure will be monitored for any obvious etiologies and explain her event. Her medications can be adjusted as needed. 5. Diabetes mellitus The patient should be evaluated for any obvious metabolic disturbances that would explain her event as well. 6. COPD The patient can be evaluated for underlying pulmonary disease process. Is unclear whether or not she could have developed hypoxia that may explain her process as well. 7. Morbid obesity Portion of the patient remains markedly overweight. She has been counseled in the past on dietary therapy and activity to try and bring her weight under better control. This note was generated with [employer] dictation software. It may contain incorrect words, spelling, and punctuation that were not noted in checking the note before signing. 07/11/17 1517 <Electronically signed by Camden Mccormick MD> Date Camden Mccormick MD Cosigner Signature (if applicable): Date CC: Camden Burger; Camden Mccormick MD; Camden Burger MD Signed URINALYSIS, COMPLETE Collected: 07/11/2017 Status: F Source: [place] 12:25 PM [facility] REPOSITORY Order Comment: How was Urine Obtained? COKE WHEELER TO SPECIFY TYPE CODE TESTS RESULT OUT OF RANGE REFERENCE UNITS LAB L400.3000 Yellow COLOR Normal Yellow LAB L400.3050 Clear Normal CLARITY Clear LAB L400.3200 Normal mg/dl High GLUCOSE, UR 100 LAB L400.3300 Negative mg/dL Normal BILIRUBIN URINE Negative LAB L400.3400 Negative mg/dl Normal KETONE UR Negative LAB L400.3465 1.002-1.030 Normal SP.GR. DIPSTX 1.015 LAB L400.3550 5.0 - 8.0 pH UR Normal 6.0 LAB L400.3600 Negative mg/dl High PROT 15 DIPSTX LAB L400.3700 Normal mg/dl Normal UROBILI Normal LAB L400.3750 Negative Normal NITRITE UR Negative LAB L400.3780 Negative /ul Normal OCCULT BLOOD-UR Negative LAB L400.3800 Negative /ul High LEUK 25 ESTERASE LAB L400.4050 0-5 /hpf WBC Normal 0-5 SEEN LAB L400.4100 0-5 /hpf 0 Normal RBC-UA SEEN LAB L400.4150 5-10 /hpf SQUAM Normal EPI 0-5 SEEN LAB L400.4300 None Seen /hpf Normal BACTERIA RARE LAB L400.4350 <or=2+ /hpf 0 Normal MUCUS, URINE SEEN Performed By: #### L400.0001 #### [facility] [address] [place], [address] BEDSIDE GLUCOSE Collected: 07/11/2017 Status: F Source: [place] 11:12 AM [facility] REPOSITORY TYPE CODE TESTS RESULT OUT OF REFERENCE UNITS RANGE LAB L501.080 70-110 mg/dL High BEDSIDE GLU 233 Result Comment: MANAGEMENT OF PATIENT CARE PER NURSING PROTOCOL Performed By: #### L501.080 #### [facility] Point of Care [address] [place] [address] BEDSIDE GLUCOSE Collected: 07/11/2017 Status: F Source: [place] 9:17 AM [facility] REPOSITORY TYPE CODE TESTS RESULT OUT OF REFERENCE UNITS RANGE LAB L501.080 70-110 mg/dL High BEDSIDE GLU 236 Result Comment: MANAGEMENT OF PATIENT CARE PER NURSING PROTOCOL Performed By: #### L501.080 #### [facility] Point of Care [address] [place] [address] TROPONIN-I Collected: 07/11/2017 Status: F Source: [place] 5:10 AM [facility] REPOSITORY Order Comment: 'TROP' Serial specimen #1, #2 or #3: 3 TYPE CODE TESTS RESULT OUT OF RANGE REFERENCE UNITS LAB L501.4010 <0.045 ng/mL Normal < 0.015 TROPONIN-I Result Comment: TROPONIN-I EXPECTED VALUES <0.045 Negative 0.045 - 0.590 Consistent with Cardiac Damage > OR = 0.600 Critical Value Not every elevated troponin is indicative of KS. These values should be used with clinical judgement in examining the patient's clinical picture for diagnosis. To establish a diagnosis of KS versus myocardial injury, there must be a demonstrated rise and/or fall in the troponin values, in addition to ischemic symptoms, EKG changes, new regional wall motion abnormality, and/or angiographical evidence. PLEASE NOTE: REFERENCE RANGES EDITED 17 Performed By: #### L501.4010 #### [facility] [address] [facility] [place], [address] D-DIMER QUANTITATIVE Collected: 07/11/2017 Status: F Source: [place] (DVT/PE) 5:10 AM [facility] REPOSITORY TYPE CODE TESTS RESULT OUT OF RANGE REFERENCE UNITS LAB L300.8000 0.27-0.49 FEU/ug/m Low D-DIMER < 0.27 QUANT Result Comment: NORMAL D-Dimer level (<0.50) indicates no DVT or PE. Performed By: #### L300.8000 #### [facility] [address] [place], [address] DIGOXIN LEVEL Collected: 07/11/2017 Status: F Source: [place] 5:10 AM [facility] REPOSITORY TYPE CODE TESTS RESULT OUT OF RANGE REFERENCE UNITS LAB L501.7510 0.80-2.00 ng/mL Normal DIG 0.97 Performed By: #### L501.7510 #### [facility] [address] [place], [address] LIVER PROFILE Collected: 07/11/2017 Status: F Source: [place] 5:10 AM [facility] REPOSITORY Order Comment: Comments: Fasting Lipid Profile TYPE CODE TESTS RESULT OUT OF RANGE REFERENCE UNITS LAB L501.1500 6.4-8.2 g/dL Normal T PROT 6.4 LAB L501.1800 3.2-5.0 g/dL Low ALB 2.7 LAB L501.1950 2.2-4.2 g/dL Normal GLOB 3.7 LAB L501.4100 15-37 U/L Low AST 13 LAB L501.4305 45-117 U/L High ALK P 125 LAB L501.4405 13-56 U/L Normal ALT 14 LAB L501.4600 0.20-1.00 mg/dL Normal T BILI 0.30 LAB L501.4700 0.00-0.30 mg/dL Normal D BILI 0.08 Performed By: #### L500.3400, L500.4100, L501.9520 #### [facility] [address] [facility] [place], [place], [id number] LIPID PROFILE Collected: 07/11/2017 Status: F Source: [place] 5:10 AM [facility] REPOSITORY Order Comment: Comments: Fasting Lipid Profile TYPE CODE TESTS RESULT OUT OF RANGE REFERENCE UNITS LAB L501.4900 200 mg/dL Normal CHOL 120 Result Comment: <200 mg/dL Desirable 200-240 mg/dL Borderline >240 mg/dL High Risk LAB L501.5000 mg/dL High TRIG 242 Result Comment: The drugs N-Acetylcysteine and Metamizole may falsely depress this assay. Serum Triglycerides Reference Interval Normal <150 mg/dL Borderline high 150 - 199 mg/dL High 200 - 499 mg/dL Very High > or = 500 mg/dL LAB L501.6400 mg/dL Low HDL 35 Result Comment: The drugs N-Acetylcysteine and Metamizole may falsely depress this assay. Reference Range HDL <40 mg/dL Low HDL Cholesterol HDL >or= 60 mg/dL High HDL Cholesterol LAB L501.6500 0-130 mg/dL Normal LDL 37 LAB L501.6600 5-40 mg/dL High VLDL 48 Performed By: #### L500.3400, L500.4100, L501.9520 #### [facility] [address] [place], [place], [id number] THYROID STIM HORMONE Collected: 07/11/2017 Status: F Source: [place] (TSH) 5:10 AM [facility] REPOSITORY Order Comment: Comments: Fasting Lipid Profile TYPE CODE TESTS RESULT OUT OF RANGE REFERENCE UNITS LAB L501.9520 0.358-3.74 uIU/mL Normal TSH 1.79 Performed By: #### L500.3400, L500.4100, L501.9520 #### [facility] [address] [place], [address] BNP,B-TYPE NATRIURETIC Collected: 07/11/2017 Status: F Source: [place] PEPTIDE 5:10 AM [facility] REPOSITORY TYPE CODE TESTS RESULT OUT OF RANGE REFERENCE UNITS LAB L503.6620 0-100 pg/mL Normal B-TYPE 38.2 KATHERINE PEP Performed By: #### L503.6620 #### [facility] [address] [place], [address] MAGNESIUM Collected: 07/11/2017 Status: F Source: [place] 5:10 AM [facility] REPOSITORY TYPE CODE TESTS RESULT OUT OF RANGE REFERENCE UNITS LAB L501.5200 1.6-2.6 mg/dL Normal MG 1.8 Performed By: #### L501.5200 #### [facility] [address] [place], [address] HISTORY AND PHYSICAL Observed: 07/11/2017 Status: F Source: [place] EXAM 2:53 AM [facility] REPOSITORY [facility] Medical Records Department [address] [place] [address] History and Physical 07/10/17 2220 MR#: [id number] Acct: [id number] Name: DARYA LARKIN Rep #: [id number] : 1955 61 From: Chau López MD PCP: Camden Burger Status: ADM IN Location: [place] [id number] Problem List (1) Syncope Status: Acute (2) Chest pain Status: Acute (3) COPD (chronic obstructive pulmonary disease) Status: Chronic Qualifiers: (4) Cardiomyopathy Status: Chronic Qualifiers: Comment: EF in Oct 2015 45-50 (5) Chronic atrial fibrillation Status: Chronic (6) Chronic hypoxemic respiratory failure Status: Chronic (7) GERD (gastroesophageal reflux disease) Status: Chronic Qualifiers: (8) HTN (hypertension) Status: Chronic Qualifiers: (9) Hyperlipemia Status: Chronic Qualifiers: (10) Hypersomnia Status: Chronic History of Present Illness Date of Admission: 07/10/17 Chief Complaint: Syncope The patient is a 61 year old female w/ h/o CAD, HTN, COPD, chronic afib, and HTN admitted for syncope. She is a poor historian. She was outside and slumped over in her wheelchair. She said that she probably had chest pressure but could not recall much of the pain. She felt that it was a hot day and she passed out. Down time was unknown. She denies any other symptoms. She was brought to the ED because she was found slumped in the wheelchair. Past Medical History Past Medical History (Chronic Problems): Chronic Problems (Last Reviewed 05/20/17 @ 12:52 by Mary Ruiz) SOB (shortness of breath) (Chronic) Osteoporosis (Chronic) Hypersomnia (Chronic) Former smoker (Chronic) Quit in the fall 2016 Hypomagnesemia (Chronic) HTN (hypertension) (Chronic) Morbid obesity with BMI of 40.0-44.9, adult (Chronic) COPD (chronic obstructive pulmonary disease) (Chronic) Chronic pain (Chronic) Chronic atrial fibrillation (Chronic) Non-compliance (Chronic) withn follow up with pulmonary Chronic hypoxemic respiratory failure (Chronic) Cardiomyopathy (Chronic) EF in Oct 2015 45-50 Hyperlipemia (Chronic) Type 2 diabetes mellitus (Chronic) GERD (gastroesophageal reflux disease) (Chronic) Anxiety (Chronic) Insomnia (Chronic) Allergies venom-honey bee [bee venom (honey bee)] Allergy (Verified 07/10/17 18:02) Swelling levofloxacin [From Levaquin] Adverse Reaction (Verified 07/10/17 18:02) Nausea oxycodone HCl [From Percocet] Adverse Reaction (Verified 07/10/17 18:02) Nausea Penicillins Adverse Reaction (Verified 07/10/17 18:02) Nausea/Vom/Diarrhea Home Medications: Ambulatory Orders Medication Instructions Recorded Acetaminophen [Tylenol] 2 tab PO Q6H PRN 05/12/17 Surgical History: hysterectomy, tonsillectomy, - - Lumbar surgery. Psychiatric History: Anxiety, Depression COURTROOM REPORTER History: No pertinent COURTROOM REPORTER history Smoking Status: Never smoker - *Family History Maternal History Items: - - She reports that she is unaware of what her mother's health history was like Paternal History Items: Cancer, - - father with throat cancer. Sibling History Items: Asthma, COPD, Hypertension Review of Systems Constitutional: Denies: Chills, Fever, Weight Change HEENT: Denies: Head Aches, Sinus Congestion, Sinus Drainage Cardiovascular: Denies: Chest Pain, Palpitations Respiratory: Denies: Cough, Shortness of breath at rest, Sputum production Gastrointestinal: Denies: Abdominal Pain, Nausea, Vomiting Genitourinary: Denies: Dysuria Musculoskeletal: Denies: Joint Pain, Joint Tenderness Skin: Denies: Rash, Wounds Neurological: Denies: Numbness, Tingling, Focal weakness Psychiatric: Denies: Anxiety, Depression, Homicidal Ideations, Suicidal Ideations Hematologic/ Lymphatic: Denies: Easy Bruising, Easy Bleeding VTE Information - Inpt Only VTE Present on Admission: No VTE Mechan Device Prophylaxis: SCD's VTE Pharm Prophylaxis ordered?: Yes Patient Problems: Active and Suspected Problems (Last Reviewed 05/20/17 @ 12:52 by Mary Ruiz) Syncope (Acute) Chest pain (Acute) - Physical Exam General: Alert, Oriented x3, Cooperative HEENT: Atraumatic, PERRLA, EOMI, Normocephalic Neck: Supple, No JVD, Negative Carotid Bruits Lungs: Clear to auscultation, Normal air movement Cardiovascular: No murmurs, Irregular Rate Abdomen: Bowel Sounds Present, Soft, Non Tender Extremities: Capillary Refill Less than 3 Seconds, Edema Skin: No rashes, No breakdown Musculoskeletal: No Tenderness to Palpation of Joints or Extremities Neurological: Cranial nerves II-XII grossly intact Psych/Mental Status: Normal Affect, Appropriate Vital Signs Temp Pulse Resp BP Pulse Ox 98.2 F 77 22 H 140/76 H 100 07/10/17 17:58 07/10/17 22:00 07/10/17 22:00 07/10/17 22:00 07/10/17 22:00 Oxygen Flow Rate (L/min) 2 Oxygen Delivery Method Nasal Cannula Weight: 97.1 kg Body Mass Index (BMI) 40.4 Finger Stick Blood Glucose 364 Laboratory Tests Past 24 Hrs WBC RBC Hgb Hct MCV MCH MCHC RDW RDW Differential Plt Count MPV Immature Gran % (Auto) POC Glucose POC Glucose 198 H Assessment/Plan Active and Suspected Problems (Last Reviewed 05/20/17 @ 12:52 by Mary Ruiz) Syncope (Acute) Chest pain (Acute) 61 year old female w/ h/o CAD, HTN, COPD, chronic afib, and HTN admitted for syncope. 1) Syncope: Concerning for cardiac causes. She recently had a stress test in April that was negative. Will get carotid US. Will consult cards. 2) Chest pain: Poor historian. Given recent negative stress test and EKG disclosed new anterior lateral ST depression, will consult cards. Follow trops. ECHO in AM. Will also get FLP. Resume medical management. 3) Chronic afib: C/w rate controlled. C/w xarelto. Will get digoxin level. 4) Chronic issues: COPD, CAD, HTN: Resume home meds. Monitor. 07/11/17 0253 <Electronically signed by Chau López MD> Date Chau López MD Cosigner Signature: Date (if applicable) CC: Camden Burger; Chau López MD; Camden Burger MD Signed EMERGENCY DEPARTMENT Observed: 07/11/2017 Status: F Source: [place] SUMMARY 2:15 AM [facility] REPOSITORY [facility] Medical Records Department [address] [place] [address] Emergency Department Summary 07/10/17 2204 MR#: [id number] Acct: [id number] Name: DARYA LARKIN Rep #: [id number] : 1955 61 From: Sobia Roldan MD PCP: Camden Burger Status: ADM IN - ER Visit Summary Date of Service: 07/10/17 Chief Complaint: Syncope History of Present Illness: The patient is a 61 F who states she was outside a lot today and got too warm. She became lightheaded and was found slumped over in her wheelchair. Patient believes she passed out because she was just too hot. At this time she is feeling improved but somewhat sleepy. She denies chest pain or palpitations. She does report having a moist cough recently. She has not had fever. Past history significant for coronary disease with prior KS, COPD, diabetes, hypertension, A. fib, and reflux disease. Patient is currently on digoxin along with Xarelto. Physical Examination: Vital signs are unremarkable. Patient is sitting upright in bed. She is resting with her eyes closed but will answer questions appropriately and open eyes to voice. Head neck examination is unremarkable. Heart is regular rate and rhythm. On lung sounds with slight expiratory wheezes. Abdomen is soft nontender. Neuro exam reveals no focal deficits. She is moving all 4 and answering questions appropriately. Test Results: EKG is A. fib at 91. There is anterior lateral ST depression noted that is changed compared to prior. CBC was a white count of 13.6 with hemoglobin 10.9. Chemistry studies reveal a sodium of 131 and a glucose of 181. Troponin at this time is less than 0.015. Emergency Department Course and Treatment: Patient was given IV fluids and a DuoNeb. I did review prior workups and it does appear patient had a stress test on May 13 of this year that was unremarkable. With her having a syncopal episode along with EKG changes and not feeling completely back to her baseline, patient will be admitted for further observation and further testing. I spoke with the hospitalist. Treatment Plan: [] Disposition: Admit Impression: 1. Syncope 2. EKG changes This note was generated with Inno[employer] dictation software. It may contain incorrect words, spelling, and punctuation that were not noted in review of the chart prior to signing ED Disposition - Plan for ED Patient: Disposition: Acute Care Hospital [facility] Chief Complaint: Chest Pain What to do if you have Problems For any increased pain, shortness of breath, bleeding, nausea or vomiting, chest pain, or any unexpected problems, contact your Primary Care Provider. Call [facility] ([phone]) or report to the closest Emergency Room. Call 911 if necessary. 07/11/17 0215 <Electronically signed by Sobia Roldan MD> Date Sobia Roldan MD Cosigner Signature (If Indicated): Date CC: Camden Burger; Camden Burger MD CHEST 1 VIEW Observed: 07/10/2017 Status: F Source: [place] (PORTABLE) 6:29 PM [facility] REPOSITORY [facility] Imaging Services [address] [place] [address] Chest 1 View (Portable) MR#: [id number] Acct: [id number] Name: DARYA LARKIN Rep #: [id number] : 1955 F 61 From: Moses Diamond MD PCP: Camden Burger Status: REG ER Study: Chest 1 View (Portable) Date of Exam: 07/10/17 Exam# [id number] Ordering Dr: Sobia Roldan MD STUDY: X-RAY CHEST REASON FOR EXAM: Female, 61 years old. COPD TECHNIQUE: AP portable COMPARISON: May 13, 2017 FINDINGS: Lungs are mildly hyperinflated but clear. There is no demonstrated pleural abnormality. Heart is mildly enlarged. Normal mediastinum and sangeeta. Normal visualized pulmonary arteries. Mildly calcified aortic arch and descending thoracic aorta. Normal visualized thoracic spine. Normal visualized ribs, clavicles, and shoulders. There is no demonstrated abnormality of the visualized soft tissue structures of the upper abdomen. No significant change since prior exam RAD/Chest 1 View (Portable) IMPRESSION: No acute cardiopulmonary pathology Electronically Signed: Moses Diamond MD at 19:08 EDT , Service support , CC: Camden Burger; Sobia Roldan MD Eyeglass Inspector: Signed CBC W/DIFF, AUTOMATED Collected: 07/10/2017 Status: F Source: [place] 6:10 PM [facility] REPOSITORY TYPE CODE TESTS RESULT OUT OF RANGE REFERENCE UNITS LAB L100.1000 4.4-11.0 K/mm3 High WBC 13.6 LAB L100.1200 4.2-5.4 M/mm3 Normal RBC 4.38 LAB L100.1300 12.0-15.0 g/dl Low HGB 10.9 LAB L100.1400 37-47 % Low HCT 34.3 LAB L100.1500 81-99 fL Low MCV 78.3 LAB L100.1600 27.0-32.0 pg Low MCH 24.9 LAB L100.1700 32-36 g/gl Low MCHC 31.8 LAB L100.1810 11.6-14.6 % High RDW CV 16.1 LAB L100.1820 35.1-43.9 fl High RDW SD 45.7 LAB L100.1900 150-450 K/mm3 Normal PLT 376 LAB L100.2000 6.2-12.0 fl Normal MPV 10.6 LAB L100.2100 47-70 % Normal NEUT% 64.5 LAB L100.2200 19-41 % Normal LY% 24.2 LAB L100.2300 0-10 % Normal MONO% 7.1 LAB L100.2400 0-5 % Normal EO% 3.5 LAB L100.2500 0-1 % Normal BASO% 0.4 LAB L100.2550 0.0-0.9 % Normal IM GRAN % 0.300 Result Comment: IG% - Immature Granulocytes (promyelocytes, myelocytes and metamyelocytes) > 1% indicates that a LEFT SHIFT is Present. LAB L100.2620 2.0-7.7 X10 3/uL High Absolute Neut 8.8 LAB L100.2720 0.83-4.51 X10 3/ul Normal Absolute Lymph 3.30 Performed By: #### L100.0100 #### [facility] [address] [place], [address] BASIC METABOLIC Collected: 07/10/2017 Status: F Source: [place] PROFILE (BMP) 6:10 PM [facility] REPOSITORY TYPE CODE TESTS RESULT OUT OF RANGE REFERENCE UNITS LAB L501.0100 74-106 mg/dL High GLU 181 Result Comment: Fasting Glucose result greater than or equal to 126 mg/dL suggests DIABETES MELLITUS per A.D.A. criteria. Please note revised GLUCOSE reference range effective 2017. LAB L501.1000 7-18 mg/dL Normal BUN 11 LAB L501.1100 0.55-1.02 mg/dL Normal CREAT,SERUM 0.80 Result Comment: The validity of the calculated GFR AND GFRAA in patients over 70 years has not been determined. Clinical correlation is essential. LAB L501.1110 >60 mL/min Normal EST GFR 77 Result Comment: Non- GFR Calc LAB L501.1115 >60 mL/min Normal EST GFR - AA 93 Result Comment: GFR Calc LAB L501.1255 ml/min Normal Estimated CRCL 55.73 LAB L501.1300 10-20 RATIO Normal BUN/CRE 13.7 LAB L501.2200 8.5-10 mg/dL Normal .1 CA 8.5 LAB L501.5300 136-14 mmol/L Low 5 NA 131 LAB L501.5600 3.5-5. mmol/L Normal 1 K 4.0 Result Comment: Slight Hemolysis, Result may be falsely increased. LAB L501.5900 98-107 mmol/L Normal CL 99 LAB L501.6100 21.0-32.0 mmol/L Normal CO2 25.0 LAB L501.6200 5-15 Normal GAP 7 Performed By: #### L500.2500 #### [facility] [address] [place], [place], [address] DIGOXIN LEVEL Collected: 07/10/2017 Status: F Source: [place] 6:10 PM [facility] REPOSITORY TYPE CODE TESTS RESULT OUT OF RANGE REFERENCE UNITS LAB L501.7510 0.80-2.00 ng/mL Normal DIG 1.12 Performed By: #### L501.7510 #### [facility] [address] [place], [place], [address] TROPONIN-I Collected: 07/10/2017 Status: F Source: [place] 6:10 PM [facility] REPOSITORY TYPE CODE TESTS RESULT OUT OF RANGE REFERENCE UNITS LAB L501.4010 <0.045 ng/mL Normal < 0.015 TROPONIN-I Result Comment: TROPONIN-I EXPECTED VALUES <0.045 Negative 0.045 - 0.590 Consistent with Cardiac Damage > OR = 0.600 Critical Value Not every elevated troponin is indicative of KS. These values should be used with clinical judgement in examining the patient's clinical picture for diagnosis. To establish a diagnosis of KS versus myocardial injury, there must be a demonstrated rise and/or fall in the troponin values, in addition to ischemic symptoms, EKG changes, new regional wall motion abnormality, and/or angiographical evidence. PLEASE NOTE: REFERENCE RANGES EDITED 17 Performed By: #### L501.4010 #### [facility] [address] [facility] [place], [address] BEDSIDE GLUCOSE Collected: 07/10/2017 Status: F Source: [place] 6:09 PM [facility] REPOSITORY TYPE CODE TESTS RESULT OUT OF REFERENCE UNITS RANGE LAB L501.080 70-110 mg/dL High BEDSIDE GLU 198 Result Comment: MANAGEMENT OF PATIENT CARE PER NURSING PROTOCOL Performed By: #### L501.080 #### [facility] Point of Care [address] [facility] [place] [address] BRAIN WITHOUT Observed: 07/08/2017 Status: F Source: [place] CONTRAST 10:17 AM [facility] REPOSITORY [facility] Imaging Services [address] [facility] [place] [address] Brain without Contrast MR#: [id number] Acct: [id number] Name: DARYA LARKIN Rep #: [id number] : 1955 F 61 From: Courtney Galvez MD PCP: Camden Burger Status: REG CLI Study: Brain without Contrast Date of Exam: 07/08/17 Exam# [id number] Ordering Dr: Jaime Shah MD STUDY: MRI BRAIN WITHOUT CONTRAST REASON FOR EXAM: Female, 61 years old. Articular defects within the right eye. TECHNIQUE: Sagittal T1 and axial diffusion weighted images were obtained. Additional images could not be obtained because of patient condition. COMPARISON: Prior comparable comparison studies are not available for review at this time. FINDINGS: There is mild cerebral atrophy with widening of the extra- axial spaces and ventricular dilatation. There is no evidence for recent intracranial ischemia or other cause of cytotoxic edema on diffusion weighted imaging (DWI). No T2* demonstrated susceptibility artifact. There is no demonstrated hemosiderin stain. There is no extra-axial fluid accumulation. Normal sella turcica, pituitary gland, infundibular stalk, optic chiasm and hypothalamus. Normal tectal plate and pineal gland. Normal midbrain, emil and medulla. Normal cerebellum. Normal basal cisterns. No demonstrated orbital abnormality, within the constraints of a routine brain study. Normal visualized paranasal sinuses. Normal calvarium and skull base. Normal visualized soft tissue structures. Normal visualized upper cervical spine. MRI/Brain without Contrast IMPRESSION: Technically limited MRI. No MR evidence for restricted diffusion. Electronically Signed: Courtney Galvez MD at 11:56 EDT , Service support , CC: Camden Burger; Jaime Shah MD Eyeglass Inspector: Signed CREATININE FINGERSTICK Collected: 07/08/2017 Status: F Source: [place] 9:38 AM [facility] REPOSITORY TYPE CODE TESTS RESULT OUT OF RANGE REFERENCE UNITS LAB L9100.0210 0.55-1.02 mg/dL Normal CREATININE WB 0.7 LAB L9100.0220 >60 mL/min EGFR WB Normal > 60.0000 Performed By: #### L9100.0200 #### [facility] Point of Care [address] [place] [address]. [place] [address] PULMONARY FUNCTION Observed: 06/10/2017 Status: F Source: [place] TEST 1:53 PM [facility] REPOSIT[facility] Pulmonary Services/Neurology [address] [place] [id number] MR#: [id number] Acct: [id number] Name: DARYA LARKIN Rep #: [id number] : 1955 61 From: Brent Prasad DO Referring Dr: Brent Brown, D.O. Status: REG CLI Ordering Dr: Date: Location: [facility] Sex: F C INTRODUCTION: The patient is a 61-year-old female currently under the care of myself that presents for pulmonary function testing secondary to a diagnosis of tobacco dependence. Respiratory therapy reports poor patient effort and intolerance to testing. INTERPRETATION: Spirometry was unable to be completed due to the lack of acceptable and reproducible data. Patient refused to utilize the mouthpiece due to excessive gagging. She initially refused to attempt flow volume loop maneuvers. Lung volume data reported revealed an increased TLC and RV, which could indicate underlying hyperinflation and air- trapping in the setting of an obstructive ventilatory impairment. DLCO maneuvers were not performed. IMPRESSION: These tests are uninterpretable due to a lack of patient effort and technique. 06/10/17 1353 <Electronically signed by Brent Prasad DO> Date Brent Prasad DO CC: Camden Burger; Brent Prasad D.O.; Camden Burger MD Date Dictated: 06/10/17 1349 Date Transcribed: 06/10/171348 Eyeglass Inspector: ELEAZAR Signed PULMONARY VISIT REPORT Observed: 05/20/2017 Status: F Source: [place] 1:31 PM [facility] REPOSITORY [facility] [address] [place] [address] OFFICE VISIT Date of Service: 05/20/17 MR#: [id number] Acct: [id number] Name: DARYA LARKIN Rep #: [id number] : 1955 Provider: Brent Prasad D.O. Age/Sex: 61/F Location: [facility] Status: Signed Assessment AND Plan 1. COPD (chronic obstructive pulmonary disease) J44.9 Plan The patient has a presumptive history of COPD, but is never completed pulmonary function testing. In addition, she continues to smoke 0.5 packs per day of cigarettes. She is currently being maintained on Symbicort and DuoNeb's. This can be continued until the patient completes her pulmonary function testing, which has been ordered. 2. Hypersomnia G47.10 Plan The patient has symptoms concerning for underlying sleep disordered breathing. She will be referred to the sleep lab to undergo a diagnostic polysomnogram accordingly. Orders Orders: 3. Tobacco dependency F17.200 Plan I personally discussed the deleterious effects of ongoing tobacco use with the patient, including modalities which could be utilized to achieve a smoke-free lifestyle. The patient is currently pre-contemplative. Orders Orders: Plan Detail Follow Up 3 Months (CSM) HPI HPI Comments Details: The patient is a 61-year-old female who presents to the clinic today for a routine scheduled follow-up office visit. If you recall, the patient was recently hospitalized in March with exertional shortness of breath secondary to influenza, RSV and bacterial tracheobronchitis. She has a history of chronic hypoxemic respiratory failure with a baseline 2 L supplemental oxygen requirement. The patient has an extensive smoking history of greater than 100 pack years, and continues to smoke 0.5 packs per day. She currently resides in a residential facility. The patient has never completed pulmonary function test to date. During her last office visit with our nurse practitioner, she was noted to have findings of hypersomnia and witnessed apneas. There was concern for underlying obstructive sleep apnea. However, the patient never completed a polysomnogram. She is currently utilizing Symbicort and DuoNeb's. She is primarily wheelchair bound but can ambulate very short distances. She does report the presence of nonrestorative sleep, daytime hypersomnolence and frequent afternoon napping. She does have a chronic, dry nonproductive cough. She denies any significant chest tightness or wheezing. Her weight has remained relatively stable. She denies fevers, chills or night sweats. She additionally denies chest pain, dizziness or lightheadedness. Intake Vital Signs05/20/17 Height 5 ft 1 in 05/20/17 Weight: 212 lb Intake Visit Reasons: COPD Accompanied by: Daughter Allergies venom-honey bee [bee venom (honey bee)] Allergy (Verified 05/20/17 12:52) Swelling levofloxacin [From Levaquin] Adverse Reaction (Verified 05/20/17 12:52) Nausea oxycodone HCl [From Percocet] Adverse Reaction (Verified 05/20/17 12:52) Nausea Penicillins Adverse Reaction (Verified 05/20/17 12:52) Nausea/Vom/Diarrhea Medications Acetaminophen [Tylenol] 2 tab PO Q6H PRN 05/12/17 [History Confirmed 05/20/17] Albuterol Aerosols [Ventolin Aerosols] 2.5 mg INHALATION Q2H PRN PRN 05/12/17 [History Confirmed 05/20/17] Atorvastatin Calcium [Lipitor] 40 mg PO QHS 05/12/17 [History Confirmed 05/20/17] Budesonide/Formoterol 160/4.5 [Symbicort 160/4.5 Mcg Inhaler (SP)] 2 puff INHALATION BID 05/12/17 [History Confirmed 05/20/17] Bupropion HCl [Bupropion HCl Sr] 150 mg PO BID 05/12/17 [History Confirmed 05/20/17] Buspirone HCl 10 mg PO TID 05/12/17 [History Confirmed 05/20/17] Digoxin 250 mcg PO DAILY 05/12/17 [History Confirmed 05/20/17] Diltiazem [Cardizem] 120 mg PO BID 05/12/17 [History Confirmed 05/20/17] Docusate Sodium [Colace] 100 mg PO DAILY 05/12/17 [History Confirmed 05/20/17] Famotidine [Pepcid] 20 mg PO BID 05/12/17 [History Confirmed 05/20/17] Furosemide [Lasix] 40 mg PO BIDLX 05/12/17 [History Confirmed 05/20/17] Gabapentin [Neurontin] 100 mg PO TID 05/12/17 [History Confirmed 05/20/17] Glucagon,Human Recombinant [Glucagon Emergency Kit] 1 mg IJ PRN PRN 05/12/17 [History Confirmed 05/20/17] Guaifenesin [Mucinex] 1,200 mg PO BID 05/12/17 [History Confirmed 05/20/17] Insulin Glargine,Hum.rec.anlog [Basaglar Kwikpen U-100] 55 unit SQ QHS 05/12/17 [History Confirmed 05/20/17] Insulin Lispro [Humalog] 8 unit SQ TIDCM 05/12/17 [History Confirmed 05/20/17] Ipratropium/Albuterol Sulfate [Duoneb] 3 ml INHALATION Q4H.RT 05/12/17 [History Confirmed 05/20/17] Lisinopril [Prinivil] 5 mg PO DAILY 05/12/17 [History Confirmed 05/20/17] Mag Hydrox/Al Hydrox/Simeth [Antacid Liquid] 30 ml PO Q6H PRN 05/12/17 [History Confirmed 05/20/17] Nitroglycerin [Nitrostat] 0.4 mg SUBLINGUAL Q5M PRN 05/12/17 [History Confirmed 05/20/17] Polyethylene Glycol 3350 [Miralax] 17 gm PO DAILY 05/12/17 [History Confirmed 05/20/17] Potassium Chloride [K-Dur] 10 meq PO BID 05/12/17 [History Confirmed 05/20/17] Propranolol HCl [Inderal (Beta Lou)] 10 mg PO BID 05/12/17 [History Confirmed 05/20/17] Rivaroxaban [Xarelto] 20 mg PO DAILY 05/12/17 [History Confirmed 05/20/17] Sennosides/Docusate Sodium [Senna Plus Tablet] 2 tab PO BID PRN 05/12/17 [History Confirmed 05/20/17] Sennosides/Docusate Sodium [Senna-Docusate Sodium Tablet] 2 tab PO DAILY PRN 05/12/17 [History Confirmed 05/20/17] Prednisone 10 mg PO UD #30 tab 05/13/17 [Rx Confirmed 05/20/17] PFSH Medical History SOB (shortness of breath) (Chronic) Left ankle pain (Acute) Osteoporosis (Chronic) Hypersomnia (Chronic) Chest pain (Acute) Anemia (Acute) Pneumonia (Ruled-out) Former smoker (Chronic) Hypomagnesemia (Chronic) HTN (hypertension) (Chronic) Morbid obesity with BMI of 40.0-44.9, adult (Chronic) COPD (chronic obstructive pulmonary disease) (Chronic) Chronic pain (Chronic) Chronic atrial fibrillation (Chronic) Non-compliance (Chronic) Chronic hypoxemic respiratory failure (Chronic) Cardiomyopathy (Chronic) Hyperlipemia (Chronic) Type 2 diabetes mellitus (Chronic) GERD (gastroesophageal reflux disease) (Chronic) Anxiety (Chronic) Insomnia (Chronic) Surgical History Cataract extraction status (Resolved) History of adenoidectomy (Resolved) History of lumbar surgery (Resolved) H/O total hysterectomy (Resolved) History of tonsillectomy (Resolved) Family History Sister Arthritis Diabetes Father Cancer throat Aunt Diabetes Social History Smoking Status: Current every day smoker second hand exposure: Yes alcohol intake: never substance use type: does not use Review of Systems Const CONSTITUTIONAL: Positive fatigue; negative anorexia, body ache, chills, daytime sleepiness, fever(s), night sweats, oral thrush, stops breathing during sleep, weight loss, sleeping in chair, weight loss, weight gain, frequent colds, seasonal allergies, other, headache(s) or orthopnea EETM Ear Nose Throat Mouth: Positive hearing normal and dry mouth in morning; negative hard of hearing, hoarseness, change in vision, itchy eyes, eye pain, swallowing Difficulty, ear pain, nose bleed, headache(s), mouth pain, nasal congestion, nasal discharge, post nasal drip, sinus pain, sinus pressure, sore throat or other Cardio Cardiovascular: Negative chest pain, chest pain at rest, chest pain with activity, irregular heart rhythm, edema, shortness of breath when lying down, palpitations, murmur or other Resp Respiratory: Positive as per HPI, shortness of breath shortness of breath: Positive with activity and cough cough: Positive non-productive; negative pain with cough, wheezing, chest congestion, chest tightness, pain on inspiration, inhalers, increase use of rescue inhalers, snoring, apnea or other Gastro Gastrointestional: Negative bloody stools, change in appetite, difficulty swallowing, reflux, hematemesis, melena stool, loose stool, constipation or other Genitourinary: Negative blood in urine, nocturia, pain with urination or other Musc Musculoskeletal: Positive back pain; negative body pain, neck pain or other Skin/Breast Skin/Breast: Negative dry skin, itching, rash, unusual bruising, breast lump or other Neuro Neurological: Negative restless legs, confusion, weakness or other Psych Psychocological: Negative abnormal sleep pattern, anxiety, thoughts of hurting self/others, hopelessness or other Lymph Lymphatic: Negative easy bleeding, easy bruising, swollen lymph nodes or other Exam Const Constitutional: Positive conversant, cooperative, in no acute respiratory distress, well developed, well nourished, poor hygiene and obese Head Head: Positive normocephalic and atraumatic; negative cyanosis of lips/distal nose Eyes Eye: Positive clear conjunctiva; negative nystagmus or scleral abnormality Ears Ear: Positive hearing normal and external ears normal; negative hard of hearing Nose Nose: Positive external nose normal; negative epistaxis Mouth Mouth: Positive oral mucosae normal and crowded posterior oropharynx; negative no lesions or post nasal drip Mallampati Score: II: Mallampati Score Neck Neck: Positive normal visual inspection, trachea midline and thick neck; negative lymphadenopathy Chest Wall Chest: Positive symmetric chest movement Normal AP diameter. Resp lung sounds: Positive diminished diminished: Positive global and prolonged expiratory time; negative wheezes, rhonchi or rales Cardio Cardiac: Positive regular rate, regular rhythm, S1 normal and S2 normal; negative rub, gallop or murmur GI GI: Positive normal bowel sounds and obese Soft without distention Genitourinary: Positive deferred Musc Musculoskeletal: Positive in a wheelchair Skin Pulmonary Skin Exam: Positive intact; negative lesion, ulcers, dermal atrophy or rash Pulses Pulse: Yes Pedal pulses present: Extremities Extremities: No clubbing, No cyanosis, Yes edema Location: lower extremity Neuro Neurologic: Yes conversant, Yes no focal neuro deficits, Yes cooperative, Yes understands questions Lymph Lymphatic: No lymphadenopathy Psych Appearance: Positive grossly normal Mental Status: Positive mental status grossly normal Mood: Positive congruent mood Affect: Positive flat Coding Level of Care Code Off vis,est,level 3 Diagnoses COPD (chronic obstructive pulmonary disease) J44.9 Hypersomnia G47.10 Tobacco dependency F17.200 05/20/17 1331 <Electronically signed by Brent Prasad DO> Date Brent Prasad DO Cosigner Signature: Date (if applicable) CC: Camden Burger 12 LEAD ELECTROCARDIOGRAM Observed: 05/18/2017 Status: F Source: [place] 2:01 PM [facility] Cardiovascular Services [address] [place] [address] [place] [address] 12 Lead EKG 05/13/17 0537 MR#: [id number] Acct: [id number] Name: DARYA LARKIN Rep #: [id number] : 1955 61 From: Lan Lilly MD Attending Dr: Subhash Cleary MD Status: DIS CAROL Ordering Dr: Favian Montalvo DO Date: 05/13/17 Location: U Sex: F C Admitted: 05/13/17 Test Reason : AM EKG Blood Pressure : / mmHG Vent. Rate : 081 BPM Atrial Rate : 071 BPM P-R Int : 000 ms QRS Dur : 092 ms QT Int : 350 ms P-R-T Axes : 000 062 -36 degrees QTc Int : 406 ms Atrial fibrillation Septal infarct , age undetermined ST AND T wave abnormality, consider inferior ischemia Abnormal ECG When compared with ECG of 12-MAY-2017 23:19, MANUAL COMPARISON REQUIRED, DATA IS UNCONFIRMED Confirmed by LAN LILLY MD ([id number]), photography editor DIANA GALVEZ ([id number]) on 05/18/2017 2:01:09 PM Referred By: KATIA Confirmed By:LAN LILLY MD 05/18/17 1401 Date Lan Lilly MD CC: Camden Burger; Avis Montalvo; Camden Burger MD; Subhash Cleary MD Signed 12 LEAD ELECTROCARDIOGRAM Observed: 05/14/2017 Status: F Source: [place] 3:18 PM [facility] Cardiovascular Services [address] [place] [address] 12 Lead EKG 05/12/17 2319 MR#: [id number] Acct: [id number] Name: DARYA LARKIN Rep #: [id number] : 1955 61 From: Lan Lilly MD Attending Dr: Subhash Cleary MD Status: DIS CAROL Ordering Dr: Luis Franks MD Date: 05/12/17 Location: U Sex: F C Admitted: 03/28/18 Test Reason : CP Blood Pressure : / mmHG Vent. Rate : 071 BPM Atrial Rate : 041 BPM P-R Int : 000 ms QRS Dur : 092 ms QT Int : 384 ms P-R-T Axes : 000 072 -30 degrees QTc Int : [address] AND T wave abnormality, consider inferior ischemia Abnormal ECG Confirmed by VIJAYA DELGADO, LAN ([id number]), photography editor DIANA GALVEZ ([id number]) on 05/14/2017 3:18:39 PM Referred By: NUBIA Confirmed By:LAN LILLY MD 05/14/17 1518 Date Lan Lilly MD CC: Camden Burger; Luis Franks MD; Camden Burger MD; Subhash Cleary MD Signed DISCHARGE SUMMARY Observed: 05/13/2017 Status: F Source: [place] 5:47 PM [facility] Medical Records Department [address] [place] [address] Discharge Summary 05/13/17 1426 MR#: [id number] Acct: [id number] Name: DARYA LARKIN Rep #: [id number] : 1955 61 From: Subhash Cleary MD PCP: Camden Burger Status: DIS CAROL Y Location: [place] [address] Discharge Date and Diagnosis Date of Admission: 05/13/17 Date of Discharge: 05/13/17 - Primary Discharge Diagnosis Active and Suspected Problems Atypical chest pain, most probably musculoskeletal/anxiety. COPD with mild acute bronchitis/acute exacerbation - Secondary Discharge Diagnosis Chronic Problems Former smoker (Chronic) Quit in the fall 2016 Hypomagnesemia (Chronic) HTN (hypertension) (Chronic) Morbid obesity with BMI of 40.0-44.9, adult (Chronic) COPD (chronic obstructive pulmonary disease) (Chronic) Chronic pain (Chronic) Chronic atrial fibrillation (Chronic) Non-compliance (Chronic) withn follow up with pulmonary Chronic hypoxemic respiratory failure (Chronic) Cardiomyopathy (Chronic) EF in Oct 2015 45-50 Hyperlipemia (Chronic) Type 2 diabetes mellitus (Chronic) GERD (gastroesophageal reflux disease) (Chronic) Anxiety (Chronic) Insomnia (Chronic) Hospital Course and Treatment Imaging Results: 05/13/17 05:55 Nuclear Stress Test - Chemical [NM] AM (NON MEDS) Operations: None Summary of Care Provided: The patient is a 61 year old F with multiple comorbidities including severe COPD with chronic hypoxemic respiratory failure on 2-3 L oxygen, mild heart failure with EF 45-50%; nonischemic ischemic cardiomyopathy was admitted from the [facility] for chest pain. Patient was admitted in PCU floor. Serial troponin enzymes negative. Patient had stress test which was negative for stress-induced ischemia or previous infarct. Chest x-ray reported as no acute cardiopulmonary disease. I think patient has anxiety and mild shortness of breath due to advanced COPD. Patient is discharged back to the [facility] on tapering dose of prednisone. She has DuoNeb nebulization, oxygen and Symbicort. Discharge medication reconciliation done. This note was generated with Innoz dictation software. Every effort was made to ensure accuracy, however computerized assembler surgical garment mistakes may persist. [] Discharge Activity: May Not Drive Home Medications: Medications to take at Discharge Acetaminophen [Tylenol] 2 tab PO Q6H PRN 05/12/17 Albuterol Aerosols [Ventolin Aerosols] 2.5 mg INHALATION Q2H PRN PRN 05/12/17 Atorvastatin Calcium [Lipitor] 40 mg PO QHS 05/12/17 Budesonide/Formoterol 160/4.5 [Symbicort 160/4.5 Mcg Inhaler (SP)] 2 puff INHALATION BID 05/12/17 Bupropion HCl [Bupropion HCl Sr] 150 mg PO BID 05/12/17 Buspirone HCl 10 mg PO TID 05/12/17 Digoxin 250 mcg PO DAILY 05/12/17 Diltiazem [Cardizem] 120 mg PO BID 05/12/17 Docusate Sodium [Colace] 100 mg PO DAILY 05/12/17 Famotidine [Pepcid] 20 mg PO BID 05/12/17 Furosemide [Lasix] 40 mg PO BIDLX 05/12/17 Gabapentin [Neurontin] 100 mg PO TID 05/12/17 Glucagon,Human Recombinant [Glucagon Emergency Kit] 1 mg IJ PRN PRN 05/12/17 Guaifenesin [Mucinex] 1,200 mg PO BID 05/12/17 Insulin Glargine,Hum.rec.anlog [Basaglar Kwikpen U-100] 55 unit SQ QHS 05/12/17 Insulin Lispro [Humalog] 8 unit SQ TIDCM 05/12/17 Ipratropium/Albuterol Sulfate [Duoneb] 3 ml INHALATION Q4H.RT 05/12/17 Lisinopril [Prinivil] 5 mg PO DAILY 05/12/17 Mag Hydrox/Al Hydrox/Simeth [Antacid Liquid] 30 ml PO Q6H PRN 05/12/17 Nitroglycerin [Nitrostat] 0.4 mg SUBLINGUAL Q5M PRN 05/12/17 Polyethylene Glycol 3350 [Miralax] 17 gm PO DAILY 05/12/17 Potassium Chloride [K-Dur] 10 meq PO BID 05/12/17 Propranolol HCl [Inderal (Beta Lou)] 10 mg PO BID 05/12/17 Rivaroxaban [Xarelto] 20 mg PO DAILY 05/12/17 Sennosides/Docusate Sodium [Senna Plus Tablet] 2 tab PO BID PRN 05/12/17 Sennosides/Docusate Sodium [Senna-Docusate Sodium Tablet] 2 tab PO DAILY PRN 05/12/17 Prednisone 10 mg PO UD #30 tab 05/13/17 Following Prescrptions Were Given to Patient: Prednisone 10 mg PO UD #30 tab Primary Care Physician: Camden Burger [Primary Care Provider] - Please follow up with your Primary Care Physician in: in 2 weeks Please Follow Up With: Matthias Chong MD When: in 3-4 weeks for COPD Medical Necessity - Tobacco Use Smoking Status: Former smoker Tobacco Use: Non-smoker Meaningful Use Info Meaningful Use Diagnoses (Choose all that apply): None applicable Code Visit OBSV E AND M: 05454 Observation care discharge 05/13/17 4125 <Electronically signed by Subhash Cleary MD> Date Subhash Cleary MD Cosigner Signature (if applicable): Date CC: Camden Burger; Camden Burger MD; Subhash Cleary MD Signed DISCHARGE INSTRUCTION Observed: 05/13/2017 Status: F Source: [place] 2:26 PM [facility] Medical Records Department [address] [address] Instructions for Home/Discharge Instructions 05/13/17 1422 MR#: [id number] Acct: [id number] Name: DARYA LARKIN Rep #: [id number] : 1955 61 From: Subhash Cleary MD PCP: Camden Burger Status: ADM CAROL - Discharge Diagnoses Current Active Problems: Current Active and Chronic Problems Chest pain (Acute) Anemia (Acute) You will use the following diet at home:: Calorie/Carbohydrate Controlled (specify 1200, 1400, etc) - 1800 ADA diet, Cardiac Discharge Activity: May Not Drive Allergies/Adverse Reactions: Allergies venom-honey bee [bee venom (honey bee)] Allergy (Verified 05/12/17 23:40) Swelling levofloxacin [From Levaquin] Adverse Reaction (Verified 05/12/17 23:40) Nausea oxycodone HCl [From Percocet] Adverse Reaction (Verified 05/12/17 23:40) Nausea Penicillins Adverse Reaction (Verified 05/12/17 23:40) Nausea/Vom/Diarrhea Medications to take at Discharge Acetaminophen [Tylenol] 2 tab PO Q6H PRN 05/12/17 Albuterol Aerosols [Ventolin Aerosols] 2.5 mg INHALATION Q2H PRN PRN 05/12/17 Atorvastatin Calcium [Lipitor] 40 mg PO QHS 05/12/17 Budesonide/Formoterol 160/4.5 [Symbicort 160/4.5 Mcg Inhaler (SP)] 2 puff INHALATION BID 05/12/17 Bupropion HCl [Bupropion HCl Sr] 150 mg PO BID 05/12/17 Buspirone HCl 10 mg PO TID 05/12/17 Digoxin 250 mcg PO DAILY 05/12/17 Diltiazem [Cardizem] 120 mg PO BID 05/12/17 Docusate Sodium [Colace] 100 mg PO DAILY 05/12/17 Famotidine [Pepcid] 20 mg PO BID 05/12/17 Furosemide [Lasix] 40 mg PO BIDLX 05/12/17 Gabapentin [Neurontin] 100 mg PO TID 05/12/17 Glucagon,Human Recombinant [Glucagon Emergency Kit] 1 mg IJ PRN PRN 05/12/17 Guaifenesin [Mucinex] 1,200 mg PO BID 05/12/17 Insulin Glargine,Hum.rec.anlog [Basaglar Kwikpen U-100] 55 unit SQ QHS 05/12/17 Insulin Lispro [Humalog] 8 unit SQ TIDCM 05/12/17 Ipratropium/Albuterol Sulfate [Duoneb] 3 ml INHALATION Q4H.RT 05/12/17 Lisinopril [Prinivil] 5 mg PO DAILY 05/12/17 Mag Hydrox/Al Hydrox/Simeth [Antacid Liquid] 30 ml PO Q6H PRN 05/12/17 Nitroglycerin [Nitrostat] 0.4 mg SUBLINGUAL Q5M PRN 05/12/17 Polyethylene Glycol 3350 [Miralax] 17 gm PO DAILY 05/12/17 Potassium Chloride [K-Dur] 10 meq PO BID 05/12/17 Propranolol HCl [Inderal (Beta Lou)] 10 mg PO BID 05/12/17 Rivaroxaban [Xarelto] 20 mg PO DAILY 05/12/17 Sennosides/Docusate Sodium [Senna Plus Tablet] 2 tab PO BID PRN 05/12/17 Sennosides/Docusate Sodium [Senna-Docusate Sodium Tablet] 2 tab PO DAILY PRN 05/12/17 Prednisone 10 mg PO UD #30 tab 05/13/17 The following prescriptions were given: Prednisone 10 mg PO UD #30 tab Primary Care Physician: Camden Burger [Primary Care Provider] - Please follow up with your Primary Care Physician in: in 2 weeks Please Follow Up With: Matthias Chong MD When: in 3-4 weeks for COPD 05/13/17 1426 <Electronically signed by Subhash Cleary MD> Date Subhash Cleary MD CC: Camden Burger; Camden Burger MD ECHOCARDIOGRAM COMPLETE Observed: 05/13/2017 Status: F Source: [place] 12:57 PM [facility] Cardiovascular [place] [address] Echo Complete 05/13/17817 MR#: [id number] Acct: [id number] Name: DARYA LARKIN Rep #: [id number] : 1955 61 From: Lan Lilly MD [facility] Status: ADM CAROL Ordering Dr: Favian Montalvo DO Date: 05/13/17 Location: [facility] Sex: F C Admitted: 05/13/17 Reason For Study: chest pain Procedure This was a 2D Doppler, Color Flow transthoracic echocardiogram. Exam performed portable in patient room. Left Ventricle Normal LV size. Left ventricular systolic function is normal. The estimated ejection fraction is 65 %. Normal diastology for age. No regional wall motion abnormalities noted. Right Ventricle Normal RV size. Normal systolic function. Atria Normal left atrium. Normal right atrium. Mitral Valve Normal mitral valve. Tricuspid Valve Normal tricuspid valve. Aortic Valve Trisinus/trileaflet aortic valve. Mild focal aortic valve calcification. Peak aortic valve gradient 20 mmHg. Mean aortic valve gradient 11 mmHg. Mild aortic stenosis. Pulmonic Valve Normal pulmonic valve. Great Vessels Normal aortic root. The pulmonary artery is normal size. Normal inferior vena cava. Pericardium/Pleural No pericardial effusion. MMode/2D Measurements AND Calculations RVDd: 2.8 cm LVOT diam: 1.8 cm Ao root diam: 2.6 cm LVOT area: 2.7 cm2 LA dimension: 4.6 cm LAV(MOD-bp): 66.5 ml LA A4 area: 21.0 cm2 RA A4 area: 14.3 cm2 LAV(MOD-bp) Indexed: 34.4 ml/m2 LAV(MOD-sp2): 73.8 ml LAV(MOD-sp4): 58.0 ml Doppler Measurements AND Calculations MV E max jami: 135.6 cm/sec Ao V2 max: 227.0 cm/sec LV V1 max: 148.6 cm/sec Ao max P.7 mmHg LV V1 max P.9 mmHg Ao V2 mean: 156.2 cm/sec LV V1 mean P.1 mmHg Ao mean P.1 mmHg LV V1 mean: 106.2 cm/sec Ao V2 VTI: 39.3 cm LV V1 VTI: 28.5 cm ANUJA(I,D): 1.9 cm2 ANUJA(V,D): 1.7 cm2 SV(LVOT): 75.8 ml PA V2 max: 150.1 cm/sec TR max jami: 239.5 cm/sec TR max P.9 mmHg Interpretation Summary Normal LV size. Left ventricular systolic function is normal. The estimated ejection fraction is 65 %. Mild aortic stenosis. Ordering Physician: Avis Montalvo Referring Physician: Camden Burger Performed By: Pat Boland RDCS 05/13/17 1256 Date Lan Lilly MD CC: Camden Burger; Avis Montalvo; Camden Burger MD; Subhash Cleary MD Date Dictated: 05/13/17817 Date Transcribed: 05/13/17 1256 Eyeglass Inspector: Signed STRESS REPORT Observed: 05/13/2017 Status: F Source: [place] 12:36 PM [facility] Cardiovascular Services [address] [place] [address] MR#: [id number] Acct: [id number] Name: DARYA LARKIN Rep #: [id number] : 1955 61 From: Lan Lilly MD Primary Care: Camden Burger Status: ADM CAROL Ordering Dr: Sex: F C Stress Test Report Pharmacologic myocardial perfusion stress test. 61-year-old lady with a history of shortness of breath and abdominal pain. Stress protocol: Resting EKG demonstrates atrial for ablation with a rate of 81 bpm normal intervals and noted resting blood pressure is 120/60 mmHg. 0.4 mg regadenoson was infused per usual protocol followed by Intravenous saline flush injection continuous EKG monitoring was performed. Patient maintained atrial fibrillation throughout the recording. The maximum heart rate attained was 104 bpm which was 65% of maximum predicted heart rate the maximum workload attained was 1 metabolic equivalent. At rest there were no ST or T-wave changes noted suggest abnormal flow reserve at peak infusion no ST or T-wave changes were noted to suggest abnormal flow reserve. No pain was noted. The resting blood pressure is 120/62 mmHg final blood pressure is 112/58 mmHg. Myocardial perfusion protocol. 12.0 mCi of technetium 99m sestamibi was injected at rest. 0.4 mg of regadenoson was infused per usual protocol. At peak infusion 33.9 mCi of technetium 99m sestamibi was injected stress images were obtained stress and rest images were reconstructed and compared in the short axis vertical long and horizontal long axis. Gated images were also obtained. Perfusion SPECT analysis: Review of the stress images demonstrate normal uptake of tracer noted in all areas of the myocardium. The resting images similarly demonstrate normal uptake of tracer noted in all areas of the myocardium. No areas of reversibility are noted suggest ischemia no previous infarct is noted. Gated SPECT analysis. The gated ejection fraction is noted to be 83%. Conclusion: Normal pharmacologic myocardial perfusion stress test. Preserved ejection fraction. 05/13/17 1236 <Electronically signed by Lan Lilly MD> Date Lan Lilly MD CC: Camden Burger; Camden Burger MD; Subhash Cleary MD Date Dictated: 05/13/17 1233 Date Transcribed: 05/13/17 1233 Eyeglass Inspector: CO Signed BEDSIDE GLUCOSE Collected: 05/13/2017 Status: F Source: [place] 11:22 AM [facility] REPOSITORY TYPE CODE TESTS RESULT OUT OF REFERENCE UNITS RANGE LAB L501.080 70-110 mg/dL High BEDSIDE GLU 357 Result Comment: MANAGEMENT OF PATIENT CARE PER NURSING PROTOCOL Performed By: #### L501.080 #### [facility] Point [facility] [address] [facility] [place], [place] [address] TROPONIN-I Collected: 05/13/2017 Status: F Source: [place] 7:45 AM [facility] REPOSITORY Order Comment: PT IN STRESS TEST [facility]. 'TROP' Serial specimen #1, #2, #3, or #4: 3 TYPE CODE TESTS RESULT OUT OF RANGE REFERENCE UNITS LAB L501.4010 <0.06 ng/mL Normal < 0.02 TROPONIN-I Result Comment: TROPONIN-I EXPECTED VALUES <0.05 NEGATIVE 0.06 - 0.59 AT RISK OF KS > OR = 0.60 SUGGEST KS Performed By: #### L500.2500, L501.4010, L500.4100 #### [facility] [address] [place], [place], [address] LIPID PROFILE Collected: 05/13/2017 Status: F Source: [place] 7:45 AM [facility] REPOSITORY Order Comment: PT IN STRESS TEST [facility]. 'TROP' Serial specimen #1, #2, #3, or #4: 3 TYPE CODE TESTS RESULT OUT OF RANGE REFERENCE UNITS LAB L501.4900 200 mg/dL Normal CHOL 133 Result Comment: <200 mg/dL Desirable 200-240 mg/dL Borderline >240 mg/dL High Risk LAB L501.5000 mg/dL Normal TRIG 94 Result Comment: The drugs N-Acetylcysteine and Metamizole may falsely depress this assay. Serum Triglycerides Reference Interval Normal <150 mg/dL Borderline high 150 - 199 mg/dL High 200 - 499 mg/dL Very High > or = 500 mg/dL LAB L501.6400 mg/dL Normal HDL 42 Result Comment: The drugs N-Acetylcysteine and Metamizole may falsely depress this assay. Reference Range HDL <40 mg/dL Low HDL Cholesterol HDL >or= 60 mg/dL High HDL Cholesterol LAB L501.6500 0-130 mg/dL Normal LDL 72 LAB L501.6600 5-40 mg/dL Normal VLDL 19 Performed By: #### L500.2500, L501.4010, L500.4100 #### [facility] [address] [place], [address] BEDSIDE GLUCOSE Collected: 05/13/2017 Status: F Source: [place] 6:27 AM [facility] REPOS[facility] TYPE CODE TESTS RESULT OUT OF REFERENCE UNITS RANGE LAB L501.080 70-110 mg/dL High BEDSIDE GLU 304 Result Comment: MANAGEMENT OF PATIENT CARE PER NURSING PROTOCOL Performed By: #### L501.080 #### [facility] Point of Care [address] [place] [address] EMERGENCY DEPARTMENT Observed: 05/13/2017 Status: F Source: [place] SUMMARY 4:05 AM [facility]POS[facility] Medical Records Department [address] [place] [address] Emergency Department Summary 05/13/17 0029 MR#: [id number] Acct: [id number] Name: DARYA LARKIN Judi Rep #: [id number] : 1955 61 From: Luis Franks MD PCP: Camden Burger Status: ADM CAROL - ER Visit Summary Date of Service: 05/13/17 Chief Complaint: [] Chest pain History of Present Illness: The patient is a 61 F complaining of chest pain since yesterday 2 PM. Substernal. Comes on at rest continuous sharp pain. Current severity is moderate. Worsened by nothing. Associated with nausea and chronic shortness of breath. She is chronic COPD gets breathing treatments every 4 hours she is a history of obesity and A. fib and she is on Eloquis. A remote DVT. She does have cardiac risk factors including hypertension, diabetes, high cholesterol and smoking. She quit in 2017. She has never had a stress test heart cath or stents. She reported a remote KS in 2010 however. Physical Examination: [] Vital signs reviewed General: Well-nourished well-developed Head: Normocephalic atraumatic Eyes: Pupils equal round and reactive to light extraocular movements intact ENT: TMs clear no hemotympanum no trauma Neck: Nontender full range of motion Cardiovascular: Irregular rhythm no murmurs normal S1-S2 Respiratory: No distress diffuse wheezing throughout all lung hoang on expiratory phase. Chest nontender Abdomen: Soft nontender nondistended normal bowel sounds no masses Back: Nontender no CVA tenderness Extremities: Nontender active range of motion 4 extremities no trauma Skin: Normal color no trauma Neuro alert oriented cranial nerves II through XII intact normal strength sensation reflexes Test Results: [] Emergency Department Course and Treatment: [] EKG shows A. fib at 71. T-wave inversions noted inferior lead III and aVF V1 and V2. CBC normal except white count of 14.8. Patient has history of chronic leukocytosis. Hemoglobin 9.0. Chemistries normal except sodium 135. Troponin negative. Chest x-ray shows nothing acute. Patient given albuterol nebulizer 3 and Atrovent nebulizer 1 with good relief of her wheezing. She still has some persistent mild chest discomfort. She was given IV Solu-Medrol. At this time due the patient's chest pain I feel she will need to be admitted for further evaluation. She is already on blood thinners therefore I do not feel she has a PE. I do not feel she needs antibiotics that she has had no no new cough or fevers. COPD is a chronic issue for her. Treatment Plan: [] Disposition: [] Impression: [] Chest pain COPD with wheezing Chronic respiratory failure This note was generated with Innoz dictation software. It may contain incorrect words, spelling, and punctuation that were not noted in review of the chart prior to signing ED Disposition - Plan for ED Patient: Chief Complaint: Chest Pain Referrals: Camden Burger [Primary Care Provider] - What to do if you have Problems For any increased pain, shortness of breath, bleeding, nausea or vomiting, chest pain, or any unexpected problems, contact your Primary Care Provider. Call [facility] [facility] ([phone]) or report to the closest Emergency Room. Call 911 if necessary. 05/13/17 0405 <Electronically signed by Luis Franks MD> Date Luis Franks MD Cosigner Signature (If Indicated): Date CC: Camden Burger; Camden Burger MD CBC-COMPLETE BLOOD CNT Collected: 05/13/2017 Status: F Source: [place] NO DIFF 3:56 AM [facility] [place] REPOSITORY TYPE CODE TESTS RESULT OUT OF RANGE REFERENCE UNITS LAB L100.1000 4.4-11.0 K/mm3 High WBC 13.9 LAB L100.1200 4.2-5.4 M/mm3 Low RBC 4.14 LAB L100.1300 12.0-15.0 g/dl Low HGB 10.8 LAB L100.1400 37-47 % Low HCT 34.9 LAB L100.1500 81-99 fL Normal MCV 84.3 LAB L100.1600 27.0-32.0 pg Low MCH 26.1 LAB L100.1700 32-36 g/gl Low MCHC 30.9 LAB L100.1810 11.6-14.6 % High RDW CV 14.9 LAB L100.1820 35.1-43.9 fl High RDW SD 46.2 LAB L100.1900 150-450 K/mm3 Normal PLT 311 LAB L100.2000 6.2-12.0 fl Normal MPV 10.6 Performed By: #### L100.0500 #### [facility] [address] [place], [place], [id number] BASIC METABOLIC Collected: 05/13/2017 Status: F Source: [place] PROFILE (BMP) 3:56 AM [facility] [place] REPOSITORY Order Comment: 'TROP' Serial specimen #1, #2, #3, or #4: 2 TYPE CODE TESTS RESULT OUT OF RANGE REFERENCE UNITS LAB L501.0100 74-106 mg/dL High GLU 233 Result Comment: Glucose result greater than or equal to 200 mg/dL suggests DIABETES MELLITUS per A.D.A. criteria. Please note revised GLUCOSE reference range effective 2017. LAB L501.1000 7-18 mg/dL Normal BUN 15 LAB L501.1100 0.55-1.02 mg/dL Normal CREAT,SERUM 0.75 Result Comment: The validity of the calculated GFR AND GFRAA in patients over 70 years has not been determined. Clinical correlation is essential. LAB L501.1110 >60 mL/min Normal EST GFR 83 Result Comment: Non- GFR Calc LAB L501.1115 >60 mL/min Normal EST GFR - AA 101 Result Comment: GFR Calc LAB L501.1255 ml/min Normal Estimated CRCL 59.44 LAB L501.1300 10-20 RATIO Normal BUN/CRE 20.0 LAB L501.2200 8.5-10 mg/dL Normal .1 CA 8.6 LAB L501.5300 136-14 mmol/L Low 5 NA 133 LAB L501.5600 3.5-5. mmol/L Normal 1 K 4.7 LAB L501.5900 98-107 mmol/L Normal CL 101 LAB L501.6100 21.0-3 mmol/L Normal 2.0 CO2 24.0 LAB L501.6200 5-15 Normal GAP 8 Performed By: #### L500.2500, L501.4010, L500.4100 #### [facility] [address] [place], [place], [id number] PROTHROMBIN TIME W/INR Collected: 05/13/2017 Status: F Source: [place] 3:56 AM [facility] REPOSITORY TYPE CODE TESTS RESULT OUT OF RANGE REFERENCE UNITS LAB L300.4150 11.7-14.9 SECONDS High PROTIME 18.1 LAB L300.4200 Normal INR 1.5 Performed By: #### L300.3900, L300.4310 #### [facility] [address] [place], [place], [address] PARTIAL THROMBOPLAST Collected: 05/13/2017 Status: F Source: [place] TIME 3:56 AM [facility] [place] REPOSITORY TYPE CODE TESTS RESULT OUT OF RANGE REFERENCE UNITS LAB L300.4310 24.1-36.2 Seconds Normal PTT 32.0 Performed By: #### L300.3900, L300.4310 #### [facility] [address] [place], [address] HISTORY AND PHYSICAL Observed: 05/13/2017 Status: F Source: [place] EXAM 1:39 AM [facility] REPOSITORY [facility] Medical Records Department [address] [place] [address] History and Physical 05/13/17 0113 MR#: [id number] Acct: [id number] Name: DARYA LARKIN Rep #: [id number] : 1955 61 From: Favian Montalvo DO PCP: Camden Burger Status: ADM CAROL Y Location: [place] [address] Problem List (1) Chest pain Status: Acute Qualifiers: Chest pain type: chest pain on breathing Qualified Code(s): R07.1 - Chest pain on breathing; R07.81 - Pleurodynia (2) Anemia Status: Acute (3) Acute and chronic respiratory failure with hypoxia Status: Resolved (4) Acute bronchitis due to human metapneumovirus Status: Resolved (5) COPD with acute exacerbation Status: Resolved (6) Hypomagnesemia Status: Chronic (7) Anxiety Status: Chronic (8) COPD (chronic obstructive pulmonary disease) Status: Chronic Qualifiers: (9) Cardiomyopathy Status: Chronic Qualifiers: Comment: EF in Oct 2015 45-50 (10) Chronic atrial fibrillation Status: Chronic (11) Chronic hypoxemic respiratory failure Status: Chronic (12) Chronic pain Status: Chronic Qualifiers: (13) Former smoker Status: Chronic Comment: Quit in the fall 2016 (14) GERD (gastroesophageal reflux disease) Status: Chronic Qualifiers: (15) HTN (hypertension) Status: Chronic Qualifiers: (16) Hyperlipemia Status: Chronic Qualifiers: (17) Insomnia Status: Chronic Qualifiers: (18) Morbid obesity with BMI of 40.0-44.9, adult Status: Chronic (19) Non-compliance Status: Chronic Comment: withn follow up with pulmonary (20) Type 2 diabetes mellitus Status: Chronic Qualifiers: (21) Pneumonia Status: Ruled-out History of Present Illness Date of Admission: 05/13/17 Chief Complaint: chest pain The patient is a 61 year old F with a past medical history of severe COPD, chronic pain syndrome, chronic atrial fibrillation, chronic hypoxemic respiratory failure, mild cardiomyopathy with a 45-50% EF in October 2015, hyperlipidemia, diabetes mellitus type 2, GERD, chronic anticoagulation with Xarelto, anxiety/depression and insomnia who was sent to the emergency department at [facility] from the long-term with a complaint of chest pain. The pain started at approximately 2 PM which is almost 12 hours ago. It has been continuous. It does not radiate. She also describes some nausea and abdominal pain. The pain increases with deep breaths and also with coughing. She has not been diaphoretic and the pain started while she was sitting in her chair. She had spaghetti for lunch. She was given what sounds like a GI cocktail at the MD and she tells me that it helped some. Her Dry Clipper Tender is Dr. Asaf Pitts and she states she last saw him on 04/24 and was told everything was good. She tells me that she has never had a stress test or a cardiac cath. She is a very poor historian and it is difficult to get her to answer a direct question. The EKG in the ER shows non-specific ST and T wave changes that are essentially unchanged from her last EKG in February 2017. CXR shows no infiltrates, PVC or pleural effusions. Troponin is < 0.02 nine and 1/2 hours after the chest pain started. She has multiple risk factors for CAD and she is going to be admitted to the hospital for a chemical nuclear stress in the AM if the second troponin is negative. Past Medical History Past Medical History (Chronic Problems): Chronic Problems Former smoker (Chronic) Quit in the fall 2016 Hypomagnesemia (Chronic) HTN (hypertension) (Chronic) Morbid obesity with BMI of 40.0-44.9, adult (Chronic) COPD (chronic obstructive pulmonary disease) (Chronic) Chronic pain (Chronic) Chronic atrial fibrillation (Chronic) Non-compliance (Chronic) withn follow up with pulmonary Chronic hypoxemic respiratory failure (Chronic) Cardiomyopathy (Chronic) EF in Oct 2015 45-50 Hyperlipemia (Chronic) Type 2 diabetes mellitus (Chronic) GERD (gastroesophageal reflux disease) (Chronic) Anxiety (Chronic) Insomnia (Chronic) Allergies venom-honey bee [bee venom (honey bee)] Allergy (Verified 05/12/17 23:40) Swelling levofloxacin [From Levaquin] Adverse Reaction (Verified 05/12/17 23:40) Nausea oxycodone HCl [From Percocet] Adverse Reaction (Verified 05/12/17 23:40) Nausea Penicillins Adverse Reaction (Verified 05/12/17 23:40) Nausea/Vom/Diarrhea Home Medications: Ambulatory Orders Medication Instructions Recorded Surgical History: hysterectomy, tonsillectomy, - - Lumbar surgery. Psychiatric History: Anxiety, Depression COURTROOM REPORTER History: No pertinent COURTROOM REPORTER history Lives: [facility] Smoking Status: Former smoker - quit in the fall Tobacco Use: Non-smoker Alcohol: None Drugs: - - she is dependent on narcotics but, they are prescribed to her and she does not use illicit drugs - *Family History Maternal History Items: - - She reports that she is unaware of what her mother's health history was like Paternal History Items: Cancer, - - father with throat cancer. Sibling History Items: Asthma, COPD, Hypertension Review of Systems Constitutional: Denies: Chills, Fever, Weight Change HEENT: Denies: Head Aches, Sinus Congestion, Sinus Drainage Cardiovascular: Reports: Chest Pain, Edema. Denies: Light Headedness, Orthopnea, Palpitations Respiratory: Reports: Cough - chronic, no change recently, Shortness of Breath - chronic Gastrointestinal: Reports: Abdominal Pain, Dyspepsia, Nausea. Denies: Diarrhea, Vomiting Genitourinary: Denies: Dysuria Musculoskeletal: Reports: Back Pain, Neck Pain Skin: Denies: Rash, Wounds Neurological: Denies: Slurred speech, Confusion, Focal weakness, Seizures Psychiatric: Reports: Anxiety, Depression. Denies: Suicidal Ideations Endocrine: Denies: Change in Body Habitus Hematologic/ Lymphatic: Denies: Hx of blood clot VTE Information - Inpt Only VTE Present on Admission: No VTE Mechan Device Prophylaxis: None VTE Pharm Prophylaxis ordered?: No Reason prophylaxis not ordered:: Treatment Not Indicated - pt is on Xarelto and a short admission is expected Patient Problems: Active and Suspected Problems Chest pain (Acute) Anemia (Acute) - Physical Exam General: Alert, Oriented x3, Non-Cooperative - she will not answer a direct question without prompting her several times and she is evasive. I had to ask her 3 times when the last time she saw Dr. Pitts was and she finally told me on the of this month. HEENT: Atraumatic, PERRLA, EOMI, Normocephalic Oral: Moist Mucosa Neck: Supple, No Nodes, Trachea Midline Lungs: Diminished, - - she has no conversational dyspnea and she is not tachypneic. Not coughing. Rare expiratory wheeze Cardiovascular: Normal S1, Normal S2, No murmurs, Irregular Rate - AF with controlled VR, No Gallop Abdomen: Bowel Sounds Present, Soft, Non-Distended, Tender - in the mid abdomen Extremities: No cyanosis, Edema - of the ankles and the distal LE's Skin: No rashes, No breakdown Neurological: Cranial nerves II-XII grossly intact, Neuro grossly intact Psych/Mental Status: Flat Affect Vital Signs Temp Pulse Resp BP Pulse Ox 97.7 F L 57 L 18 108/58 L 99 05/12/17 23:16 05/13/17 01:03 05/13/17 00:49 05/13/17 01:03 05/13/17 01:03 Oxygen Flow Rate (L/min) 2 Oxygen Delivery Method Room Air Weight: 211 lb 13.828 oz Body Mass Index (BMI) 40.0 Finger Stick Blood Glucose 364 Laboratory Tests Past 24 Hrs WBC 14.8 H RBC 3.31 L Hgb 9.0 L Hct 28.4 L MCV 85.8 MCH 27.2 MCHC 31.7 L RDW 14.8 H RDW Differential 44.5 H Assessment/Plan Active and Suspected Problems Chest pain (Acute) Anemia (Acute) Impressions 1. atypical CP lasting for 11 hours with normal troponin, unremarkable CXR, stable EKG since February 2017 and partially relieved with a GI cocktail at the MD. HGB has dropped to 9.0 from 10.8 in February and she is on chronic anticoagulation. I suspect this is likely GI related but, she has many RF's for CAD and she is being admitted for a stress test. 2. severe COPD with chronic hypoxemic respiratory failure 3. chronic atrial fibrillation - rate controlled 4. DM II 5. HTN 6. HLD 7. former smoker - she just quit about 6 months ago 8. Hx of non-compliance with medication, diet and follow up in the past - no living in a NH 9. morbid obesity 10. depression/anxiety 11. chronic pain syndrome 12. ischemic CM with a 45-50% EF in 2016 Admitted to PCU Serial CE's chemical nuclear stress in the AM if the second troponin is negative Obtain Dr. Pitts's recent progress notes Hemoccult stool NPO tonight Continue her regular medications PRN SL NTG Code Visit OBSV VIPUL: [id number] Initial observation care L3 05/13/17 0139 <Electronically signed by Favian Montalvo DO> Date M Reji Montalvo DO Cosigner Signature: Date (if applicable) CC: Camden Burger; Avis Montalvo; Shane Pitts MD; Camden Burger MD Signed CHEST 1 VIEW Observed: 05/12/2017 Status: F Source: [place] (PORTABLE) 11:32 PM [facility] REPOSITORY [facility] Imaging Services [address] [place] [id number] Chest 1 View (Portable) MR#: [id number] Acct: [id number] Name: DARYA LARKIN Rep #: [id number] : 1955 F 61 From: Don Rosario PCP: Camden Burger Status: REG ER Study: Chest 1 View (Portable) Date of Exam: 05/12/17 Exam# [id number] Ordering Dr: Luis Franks MD STUDY: X-RAY CHEST REASON FOR EXAM: Female, 61 years old. Chest pain, shortness of breath. TECHNIQUE: AP portable chest. COMPARISON: February 16, 2017. FINDINGS: The lungs are clear and expanded. There is no demonstrated pleural abnormality. Borderline cardiomegaly. Normal mediastinum and sangeeta. Normal visualized pulmonary arteries. Normal visualized aortic arch and descending thoracic aorta. Osseous structures are unchanged. There is no demonstrated abnormality of the visualized soft tissue structures of the upper abdomen. RAD/Chest 1 View (Portable) IMPRESSION: No acute cardiopulmonary disease. Electronically Signed: Don Rosario MD at 0:16 EDT , Service support , CC: Camden Burger; Luis Franks MD Eyeglass Inspector: Signed CBC W/DIFF, AUTOMATED Collected: 05/12/2017 Status: F Source: [place] 11:20 PM [facility] REPOSITORY TYPE CODE TESTS RESULT OUT OF RANGE REFERENCE UNITS LAB L100.1000 4.4-11.0 K/mm3 High WBC 14.8 LAB L100.1200 4.2-5.4 M/mm3 Low RBC 3.31 LAB L100.1300 12.0-15.0 g/dl Low HGB 9.0 LAB L100.1400 37-47 % Low HCT 28.4 LAB L100.1500 81-99 fL Normal MCV 85.8 LAB L100.1600 27.0-32.0 pg Normal MCH 27.2 LAB L100.1700 32-36 g/gl Low MCHC 31.7 LAB L100.1810 11.6-14.6 % High RDW CV 14.8 LAB L100.1820 35.1-43.9 fl High RDW SD 44.5 LAB L100.1900 150-450 K/mm3 Normal PLT 291 LAB L100.2000 6.2-12.0 fl Normal MPV 11.1 LAB L100.2100 47-70 % High NEUT% 71.0 LAB L100.2200 19-41 % Low LY% 18.7 LAB L100.2300 0-10 % Normal MONO% 6.8 LAB L100.2400 0-5 % Normal EO% 2.8 LAB L100.2500 0-1 % Normal BASO% 0.3 LAB L100.2550 0.0-0.9 % Normal IM GRAN % 0.400 Result Comment: IG% - Immature Granulocytes (promyelocytes, myelocytes and metamyelocytes) > 1% indicates that a LEFT SHIFT is Present. LAB L100.2620 2.0-7.7 X10 3/uL High Absolute Neut 10.5 LAB L100.2720 0.83-4.51 X10 3/ul Normal Absolute Lymph 2.77 Performed By: #### L100.0100 #### [facility] [address] [place], [address] BASIC METABOLIC Collected: 05/12/2017 Status: F Source: [place] PROFILE (BMP) 11:20 PM [facility] REPOSITORY Order Comment: 'TROP' Serial specimen #1, #2, #3, or #4: 1 TYPE CODE TESTS RESULT OUT OF RANGE REFERENCE UNITS LAB L501.0100 74-106 mg/dL High GLU 179 Result Comment: Fasting Glucose result greater than or equal to 126 mg/dL suggests DIABETES MELLITUS per A.D.A. criteria. Please note revised GLUCOSE reference range effective 2017. LAB L501.1000 7-18 mg/dL Normal BUN 16 LAB L501.1100 0.55-1.02 mg/dL Normal CREAT,SERUM 0.78 Result Comment: The validity of the calculated GFR AND GFRAA in patients over 70 years has not been determined. Clinical correlation is essential. LAB L501.1110 >60 mL/min Normal EST GFR 80 Result Comment: Non- GFR Calc LAB L501.1115 >60 mL/min Normal EST GFR - AA 96 Result Comment: GFR Calc LAB L501.1255 ml/min Normal Estimated CRCL 57.15 LAB L501.1300 10-20 RATIO High BUN/CRE 20.5 LAB L501.2200 8.5-10 mg/dL Normal .1 CA 8.5 LAB L501.5300 136-14 mmol/L Low 5 NA 135 LAB L501.5600 3.5-5. mmol/L Normal 1 K 4.3 LAB L501.5900 98-107 mmol/L Normal CL 101 LAB L501.6100 21.0-3 mmol/L Normal 2.0 CO2 27.0 LAB L501.6200 5-15 Normal GAP 7 Performed By: #### L500.2500, L501.4010 #### [facility] [address] [place], [address] TROPONIN-I Collected: 05/12/2017 Status: F Source: [place] 11:20 PM [facility] REPOSITORY Order Comment: 'TROP' Serial specimen #1, #2, #3, or #4: 1 TYPE CODE TESTS RESULT OUT OF RANGE REFERENCE UNITS LAB L501.4010 <0.06 ng/mL Normal < 0.02 TROPONIN-I Result Comment: TROPONIN-I EXPECTED VALUES <0.05 NEGATIVE 0.06 - 0.59 AT RISK OF KS > OR = 0.60 SUGGEST KS Performed By: #### L500.2500, L501.4010 #### [facility] [address] [place], [place], [id number] LIVER PROFILE Collected: 05/12/2017 Status: F Source: [place] 11:20 PM [facility] REPOSITORY TYPE CODE TESTS RESULT OUT OF RANGE REFERENCE UNITS LAB L501.1500 6.4-8.2 g/dL Normal T PROT 6.8 LAB L501.1800 3.2-5.0 g/dL Low ALB 3.0 LAB L501.1950 2.2-4.2 g/dL Normal GLOB 3.8 LAB L501.4100 15-37 U/L Low AST 11 LAB L501.4305 45-117 U/L High ALK P 154 LAB L501.4405 13-56 U/L Normal ALT 15 Result Comment: Please note revised ALT reference range effective 2017. LAB L501.4600 0.20-1.00 mg/dL Normal T BILI 0.30 LAB L501.4700 0.00-0.30 mg/dL Normal D BILI 0.11 Performed By: #### L500.3400, L501.5200, L501.9520 #### [facility] [address] [place], [place], [id number] MAGNESIUM Collected: 05/12/2017 Status: F Source: [place] 11:20 PM [facility] REPOSITORY TYPE CODE TESTS RESULT OUT OF RANGE REFERENCE UNITS LAB L501.5200 1.6-2.6 mg/dL Normal MG 2.3 Result Comment: Please note revised Magnesium reference range effective 2017. Performed By: #### L500.3400, L501.5200, L501.9520 #### [facility] [address] [place], [place], [address] THYROID STIM HORMONE Collected: 05/12/2017 Status: F Source: [place] (TSH) 11:20 PM [facility] REPOSITORY TYPE CODE TESTS RESULT OUT OF RANGE REFERENCE UNITS LAB L501.9520 0.358-3.74 uIU/mL Normal TSH 1.72 Performed By: #### L500.3400, L501.5200, L501.9520 #### [facility] [address] [place], [address] DIGOXIN LEVEL Collected: 05/12/2017 Status: F Source: [place] 11:20 PM [facility] REPOSITORY TYPE CODE TESTS RESULT OUT OF RANGE REFERENCE UNITS LAB L501.7510 0.80-2.00 ng/mL Normal DIG 1.60 Performed By: #### L501.7510 #### [facility] [address] [place], [address] PROGRESS Observed: 04/24/2017 Status: COMPLETED Source: [place] 2:50 PM CLINIC OTHER CAMPUS REPOSITORY HNO ID: [id number] Author: Shnae Pitts Service: (none) Author Type: Physician Type: Progress Notes Filed: 04/24/2017 4:48 PM Note Text: PERTINENT CARDIAC HISTORY ASHD - NSTEMI 2010 during COPD exacerbation A fib - PAF HTN HL DM Cor pulmonale ADHERENCE TO GUIDELINES BRIDGETTE-I or ARB for HF with prior LVEF<40 (NQF 0081) - met ASA or Plavix for ASHD (NQF 0067) - a/c Beta lou for ASHD with prior KS or prior LVEF<40 (NQF 0070) - met Beta lou for HF with prior LVEF<40 (NQF 0083) - N/A BRIDGETTE-I or ARB for ASHD with DM or prior LVEF<40 (NQF 0066) - met Statin therapy for ASHD or FHL or DM - met BMI documented and plan if >25 (NQF 0421) - lifestyle recommendation form Tobacco use screening and referral (NQF 0028) - lifestyle recommendation form Recommendation for whole food, plant based diet - lifestyle recommendation form CLINICAL IMPRESSION/PLAN: Darya Larkin has stable ischemic heart disease. She's had no recent angina. Her atrial fibrillation appears to be under adequate control. She is clinically in sinus rhythm today. She will continue anticoagulation. Her diuretics will be increased and she will be restarted on potassium. Basic profile and magnesium will be checked next week. I've asked for daily weights. Wound care is currently being done and staff at the long-term was alerted to her active seeping. I will see her in 6 months or as needed. Consideration should be given to weaning beta lou in the future, if her breathing does not improve with diuretic therapy. Written and verbal health teaching given to patient, patient verbalizes understanding and agrees with treatment plan. This note was generated using Innoz voice recognition system, and there may be some incorrect words, spellings, and punctuation that were not noted in checking the note before saving. DIAGNOSIS FOR VISIT: ASHD CHF HISTORY OF PRESENT ILLNESS Darya Larkin returns for follow-up of her multiple cardiac issues, as noted above. She remains on anticoagulation. Patient lou has been added to her regimen. There is been a mild exacerbation of her breathing. She is not smoking. She has decided not to undergo knee surgery. She denies chest pain. Her edema has been somewhat worse. She's had mild seeping from the left calf area. She's had no syncope, palpitations, TIAs, amaurosis or claudication. She is unaware of her heart rhythm ALLERGIES: ALLERGIES Allergen Reactions - Levaquin [Levofloxa* - Penicillins Vomiting Was able to take amoxil - Percocet [Oxycodone* Vomiting - Bee Stings [Other] Swelling CURRENT OUTPATIENT MEDICATIONS: propranolol (INDERAL) 10 mg tablet Take 10 mg by mouth three times daily. famotidine (PEPCID) 20 mg tablet Take 20 mg by mouth twice daily. gabapentin (NEURONTIN) 100 mg capsule Take 100 mg by mouth three times daily. budesonide-formoterol (SYMBICORT) 160-4.5 mcg/actuation inhaler Inhale 2 Puffs as instructed twice daily. rivaroxaban (XARELTO) 20 mg tablet Take 1 tablet by mouth daily with dinner. albuterol HFA (VENTOLIN HFA) 90 mcg/actuation inhaler Inhale 2 Puffs as instructed every 4 hours as needed. digoxin (LANOXIN) 250 mcg tablet Take 1 tablet by mouth once daily. mometasone-formoterol (DULERA) 200-5 mcg/actuation inhaler Inhale 1 Puff as instructed twice daily. atorvastatin (LIPITOR) 40 mg tablet Take 1 tablet by mouth once daily. lisinopril (PRINIVIL) 5 mg tablet Take 1 tablet by mouth once daily. furosemide (LASIX) 20 mg tablet Take 1 tablet by mouth twice daily. blood sugar diagnostic (FREESTYLE TEST) test strip Test 3 times per day. Insulin requiring type 2 DM. 250.00 busPIRone (BUSPAR) 10 mg tablet Take 1 tablet by mouth three times daily. Blood-Glucose Meter monitoring kit Glucose Meter of Choice - Kit - Dx: Type 2 DM - Controlled E11.9 diltiazem CD (CARTIA XT) 120 mg 24 hr capsule Take 1 capsule by mouth once daily. nitroglycerin sublingual (NITROQUICK) 0.4 mg SL tablet Dissolve 1 tablet under the tongue as needed. FOR CHEST PAIN. IF NO RELIEF CALL 911 ALBUTEROL SULFATE 2.5 MG/3 ML (0.083 %) NEB SOLUTION Inhale 1 vial via nebulizer 4 times a day routinely and every 2 hours as needed for wheezing, cough, shortness of breath. Cooper's docudose. Blood-Glucose Meter (FREESTYLE SYSTEM KIT) Misc Kit Test 3 times per day. Insulin requiring type 2 DM. 250.00 ipratropium-albuterol (DUONEB) 0.5 mg-3 mg(2.5 mg base)/3 mL nebu Inhale 3 mL as instructed four times daily. polyethylene glycol 3350 (MIRALAX, GLYCOLAX) 17 gram packet Take 17 g by mouth once daily. insulin aspart (NOVOLOG FLEXPEN) 100 unit/mL inpn Inject 5 Units subcutaneously three times daily with meals. LANTUS SOLOSTAR 100 unit/mL (3 mL) inpn INJECT 65 UNITS SUBCUTANEOUSLY DAILY AT BEDTIME. Insulin [place], Disposable, (STEPHANIE PEN NEEDLE) 32 gauge x ndle Use one needle for each dose. 1/day. COMPOUNDED PRESCRIPTION Pull ups:1 box: DX: CHF11 refills COMPOUNDED PRESCRIPTION 2 plus depends: DX: debility, chf lancets (FREESTYLE LANCETS) 28 gauge misc Test 3 times per day. Insulin requiring type 2 DM. 250.00 bupropion hcl(WELLBUTRIN SR 150 MG TAB) Take one(1) tablet twice daily. Enoc's Docudose. omeprazole(PRILOSEC 20 MG CAP) Take one(1) capsule daily. COMPOUNDED PRESCRIPTION BD 1/2 cc syringe. Use as directed. Dx: 250.00 COMPOUNDED PRESCRIPTION Pen tip needles. Use as directed, Dx: 250.00 PHYSICAL EXAMINATION: VITAL SIGNS: Blood pressures 112/54, pulse 66 and regular. Chest: Clear to percussion and auscultation. Breath sounds are diminished in the bases, consistent with effusion. There is mild expiratory prolongation and a few scattered wheezes. Trachea is midline. Air entry is equal. Cardiac: Regular rhythm. S1 and S2 are normal. PMI is nondisplaced. There is a soft systolic ejection murmur. Carotids are brisk without bruits. JVP is less than 10 cm. Abdomen: Soft and nontender. Obesity limits examination. There are no pulsatile masses or bruits. No liver enlargement. Bowel sounds are active. Extremities: 3 plus bilateral soft pitting edema. There is some spontaneous seeping from the posterior left calf. There is no evidence of cellulitis. Wound was redressed in the office and long-term was alerted to this. They reported that they had active orders for wound care. Pulses are diminished but symmetrical. No recent labs are available. Electronically Signed: Shane Pitts MD April 24, 2017 2:50 PM CC: No primary care provider on file. CNOV Observed: 04/24/2017 Status: COMPLETED Source: [place] 2:00 PM CLINIC OTHER CAMPUS REPOSITORY Office Visit (AGCARDWST) DARYA LARKIN ([id number]) 1955 F Date Time Provider Department 04/24/17 2:00 PM SHANE PITTS AGCARDWSSharyn During your visit today, we recorded the following information about you: Pulse Blood pressure 66/minute 112/54 Shane Pitts MD 04/24/2017 4:48 PM Signed PERTINENT CARDIAC HISTORY ASHD - NSTEMI 2010 during COPD exacerbation A fib - PAF HTN HL DM Cor pulmonale ADHERENCE TO GUIDELINES BRIDGETTE-I or ARB for HF with prior LVEFANDlt;40 (NQF 0081) - met ASA or Plavix for ASHD (NQF 0067) - a/c Beta lou for ASHD with prior KS or prior LVEFANDlt;40 (NQF 0070) - met Beta lou for HF with prior LVEFANDlt;40 (NQF 0083) - N/A BRIDGETTE-I or ARB for ASHD with DM or prior LVEFANDlt;40 (NQF 0066) - met Statin therapy for ASHD or FHL or DM - met BMI documented and plan if ANDgt;25 (NQF 0421) - lifestyle recommendation form Tobacco use screening and referral (NQF 0028) - lifestyle recommendation form Recommendation for whole food, plant based diet - lifestyle recommendation form CLINICAL IMPRESSION/PLAN: Darya Larkin has stable ischemic heart disease. She's had no recent angina. Her atrial fibrillation appears to be under adequate control. She is clinically in sinus rhythm today. She will continue anticoagulation. Her diuretics will be increased and she will be restarted on potassium. Basic profile and magnesium will be checked next week. I've asked for daily weights. Wound care is currently being done and staff at the long-term was alerted to her active seeping. I will see her in 6 months or as needed. Consideration should be given to weaning beta lou in the future, if her breathing does not improve with diuretic therapy. Written and verbal health teaching given to patient, patient verbalizes understanding and agrees with treatment plan. This note was generated using Innoz voice recognition system, and there may be some incorrect words, spellings, and punctuation that were not noted in checking the note before saving. DIAGNOSIS FOR VISIT: ASHD CHF HISTORY OF PRESENT ILLNESS Darya Larkin returns for follow-up of her multiple cardiac issues, as noted above. She remains on anticoagulation. Patient lou has been added to her regimen. There is been a mild exacerbation of her breathing. She is not smoking. She has decided not to undergo knee surgery. She denies chest pain. Her edema has been somewhat worse. She's had mild seeping from the left calf area. She's had no syncope, palpitations, TIAs, amaurosis or claudication. She is unaware of her heart rhythm ALLERGIES: ALLERGIES Allergen Reactions - Levaquin [Levofloxa* - Penicillins Vomiting Was able to take amoxil - Percocet [Oxycodone* Vomiting - Bee Stings [Other] Swelling CURRENT OUTPATIENT MEDICATIONS: propranolol (INDERAL) 10 mg tablet Take 10 mg by mouth three times daily. famotidine (PEPCID) 20 mg tablet Take 20 mg by mouth twice daily. gabapentin (NEURONTIN) 100 mg capsule Take 100 mg by mouth three times daily. budesonide-formoterol (SYMBICORT) 160-4.5 mcg/actuation inhaler Inhale 2 Puffs as instructed twice daily. rivaroxaban (XARELTO) 20 mg tablet Take 1 tablet by mouth daily with dinner. albuterol HFA (VENTOLIN HFA) 90 mcg/actuation inhaler Inhale 2 Puffs as instructed every 4 hours as needed. digoxin (LANOXIN) 250 mcg tablet Take 1 tablet by mouth once daily. mometasone-formoterol (DULERA) 200-5 mcg/actuation inhaler Inhale 1 Puff as instructed twice daily. atorvastatin (LIPITOR) 40 mg tablet Take 1 tablet by mouth once daily. lisinopril (PRINIVIL) 5 mg tablet Take 1 tablet by mouth once daily. furosemide (LASIX) 20 mg tablet Take 1 tablet by mouth twice daily. blood sugar diagnostic (FREESTYLE TEST) test strip Test 3 times per day. Insulin requiring type 2 DM. 250.00 busPIRone (BUSPAR) 10 mg tablet Take 1 tablet by mouth three times daily. Blood-Glucose Meter monitoring kit Glucose Meter of Choice - Kit - Dx: Type 2 DM - Controlled E11.9 diltiazem CD (CARTIA XT) 120 mg 24 hr capsule Take 1 capsule by mouth once daily. nitroglycerin sublingual (NITROQUICK) 0.4 mg SL tablet Dissolve 1 tablet under the tongue as needed. FOR CHEST PAIN. IF NO RELIEF CALL 911 ALBUTEROL SULFATE 2.5 MG/3 ML (0.083 %) NEB SOLUTION Inhale 1 vial via nebulizer 4 times a day routinely and every 2 hours as needed for wheezing, cough, shortness of breath. Enoc's docudose. Blood-Glucose Meter (FREESTYLE SYSTEM KIT) Misc Kit Test 3 times per day. Insulin requiring type 2 DM. 250.00 ipratropium-albuterol (DUONEB) 0.5 mg-3 mg(2.5 mg base)/3 mL nebu Inhale 3 mL as instructed four times daily. polyethylene glycol 3350 (MIRALAX, GLYCOLAX) 17 gram packet Take 17 g by mouth once daily. insulin aspart (NOVOLOG FLEXPEN) 100 unit/mL inpn Inject 5 Units subcutaneously three times daily with meals. LANTUS SOLOSTAR 100 unit/mL (3 mL) inpn INJECT 65 UNITS SUBCUTANEOUSLY DAILY AT BEDTIME. Insulin [place], Disposable, (STEPHANIE PEN NEEDLE) 32 gauge x 5/32ANDquot; ndle Use one needle for each dose. 1/day. COMPOUNDED PRESCRIPTION Pull ups:1 box: DX: CHF11 refills COMPOUNDED PRESCRIPTION 2 plus depends: DX: debility, chf lancets (FREESTYLE LANCETS) 28 gauge misc Test 3 times per day. Insulin requiring type 2 DM. 250.00 bupropion hcl(WELLBUTRIN SR 150 MG TAB) Take one(1) tablet twice daily. Cooper's Docudose. omeprazole(PRILOSEC 20 MG CAP) Take one(1) capsule daily. COMPOUNDED PRESCRIPTION BD 1/2 cc syringe. Use as directed. Dx: 250.00 COMPOUNDED PRESCRIPTION Pen tip needles. Use as directed, Dx: 250.00 PHYSICAL EXAMINATION: VITAL SIGNS: Blood pressures 112/54, pulse 66 and regular. Chest: Clear to percussion and auscultation. Breath sounds are diminished in the bases, consistent with effusion. There is mild expiratory prolongation and a few scattered wheezes. Trachea is midline. Air entry is equal. Cardiac: Regular rhythm. S1 and S2 are normal. PMI is nondisplaced. There is a soft systolic ejection murmur. Carotids are brisk without bruits. JVP is less than 10 cm. Abdomen: Soft and nontender. Obesity limits examination. There are no pulsatile masses or bruits. No liver enlargement. Bowel sounds are active. Extremities: 3 plus bilateral soft pitting edema. There is some spontaneous seeping from the posterior left calf. There is no evidence of cellulitis. Wound was redressed in the office and long-term was alerted to this. They reported that they had active orders for wound care. Pulses are diminished but symmetrical. No recent labs are available. Electronically Signed: Shane Pitts MD April 24, 2017 2:50 PM CC: No primary care provider on file. Shane Pitts MD 04/24/2017 2:50 PM Signed LIFESTYLE CHANGE A healthy lifestyle is the most important component of your overall treatment plan. Please give serious thought to the following areas and commit to making penitentiary changes. EAT A WHOLE FOOD, PLANT BASED DIET The nutrition your body gets is more important than the medicine you take. What matters most is the overall way you eat. We encourage you to minimize the use of animal products (which include dairy and all meats except fatty fish) and use whole, unprocessed plant foods to provide your protein, vitamins and other nutrients. We have a lot of information to share with you on this topic. We also hold Shared Medical Appointments, where you can come visit with Dr. Pitts in the company of other patients and spend over an hour talking about the challenges of changing the way you eat. This is not a ANDquot;dietANDquot;. It is a way of life that you will keep with you. EXERCISE REGULARLY It is not important to spend hours in the gym, lifting weights and perspiring heavily. A total of 2-3 hours per week of aerobic (causing you to be moderately short of breath) exercise is sufficient to improve your health. Talk to us before you begin a new exercise program, if you have heart disease or experience shortness of breath or chest pain. REDUCE STRESS Chronic emotional and physical stress leads to disease. Ways of reducing stress include meditation, visualization, prayer, yoga and other forms of relaxation therapy. Consistency is the wade. Find a technique that works for you and do it every day. CULTIVATE RELATIONSHIPS Loneliness and isolation have a major negative impact on health. Seek out others who can love, care for and nurture you. Avoid hurtful relationships. MAINTAIN IDEAL BODY WEIGHT The best way to do this is to do all the things above. Our bodies naturally find the right weight if we keep moving and feed ourselves the right food. If your BMI is greater than 25, we strongly recommend a referral to a weight management program. Please speak to us or your family physician about available programs. AVOID NICOTINE IN ALL FORMS This includes all tobacco products, whether chewed, smoked, vaped, or rubbed on the skin. Smoking cessation programs, which can make use of tobacco substitutes, medications to suppress cravings and behavior management, are available. Please contact your family physician about programs in your area. August Abdullahi, RN, RN 04/27/2017 9:04 AM Signed Copy of OV note mailed to [facility]. August Abdullahi RN, RN 05/13/2017 8:20 AM Signed Copy of OV note faxed to [facility] @ [phone] Referring Provider: SELF [200] Allergies As of Date: 04/24/2017 Noted Allergy Reaction LEVAQUIN (LEVOFLOXACIN) 08/25/2006 PENICILLINS 12/17/2004 11 - Vomiting Comments: Was able to take amoxil PERCOCET (OXYCODONE-ACETAMINOPHEN)07/18/2010 11 - Vomiting bee stings [Other] 08/28/2009 7 - Swelling Date Reviewed: 04/24/2017 Reviewed by: Lashawn Streeter) Danny - Fully Assessed Reason for Visit: Recheck [92] Primary Visit Diagnosis:Chronic systolic CHF (congestive heart failure) (HCC) [I50.22] Other Visit Diagnosis:ASHD (arteriosclerotic heart disease) [I25.10] Order(s):ECG COMPLETE W INTERPRETATION [ECG01] Order #: [id number] FUTURE furosemide (LASIX) 20 mg tabletTake 2 tablets by mouth twice daily.Disp: 180 tabletRfl: 3 potassium chloride (KLOR-CON 10) 10 mEq tabletTake 1 tablet by mouth twice daily.Disp: Rfl: Prescriptions as of 04/24/2017 Sig: PROPRANOLOL 10 MG TABLET Take 10 mg by mouth three raphael* FAMOTIDINE 20 MG TABLET Take 20 mg by mouth twice nicholas* GABAPENTIN 100 MG CAPSULE Take 100 mg by mouth three ti* BUDESONIDE-FORMOTEROL HFA 160* Inhale 2 Puffs as instructed * FUROSEMIDE 20 MG TABLET Take 2 tablets by mouth twice* RIVAROXABAN 20 MG TABLET Take 1 tablet by mouth daily * ALBUTEROL SULFATE HFA 90 MCG/* Inhale 2 Puffs as instructed * DIGOXIN 250 MCG TABLET Take 1 tablet by mouth once d* MOMETASONE-FORMOTEROL HFA 200* Inhale 1 Puff as instructed t* ATORVASTATIN 40 MG TABLET Take 1 tablet by mouth once d* LISINOPRIL 5 MG TABLET Take 1 tablet by mouth once d* BLOOD SUGAR DIAGNOSTIC STRIPS Test 3 times per day. Insuli* BUSPIRONE 10 MG TABLET Take 1 tablet by mouth three * BLOOD-GLUCOSE METER KIT Glucose Meter of Choice - Kit* DILTIAZEM SR 120 MG 24 HR CAP Take 1 capsule by mouth once * NITROGLYCERIN 0.4 MG SUBLINGU* Dissolve 1 tablet under the t* * ALBUTEROL SULFATE 2.5 MG/3 ML* Inhale 1 vial via nebulizer 4* * FREESTYLE SYSTEM KIT Test 3 times per day. Insuli* POTASSIUM CHLORIDE ER 10 MEQ * Take 1 tablet by mouth twice * IPRATROPIUM-ALBUTEROL 0.5 MG-* Inhale 3 mL as instructed fou* POLYETHYLENE GLYCOL 3350 17 G* Take 17 g by mouth once daily. INSULIN ASPART U-100 100 UNI* Inject 5 Units subcutaneously* LANTUS SOLOSTAR U-100 INSULIN* INJECT 65 UNITS SUBCUTANEOUSL* PEN NEEDLE, DIABETIC 32 GAUGE* Use one needle for each dose.* COMPOUNDED PRESCRIPTION Pull ups: 1 box: DX: CHF 11* COMPOUNDED PRESCRIPTION 2 plus depends: DX: debility,* LANCETS 28 GAUGE Test 3 times per day. Insuli* * WELLBUTRIN SR 150 MG TABLET, * Take one(1) tablet twice rigoberto* * PRILOSEC 20 MG CAPSULE,DELAYE* Take one(1) capsule daily. * COMPOUNDED PRESCRIPTION BD 1/2 cc syringe. Use as dir* * COMPOUNDED PRESCRIPTION Pen tip needles. Use as direc* Medication notes this encounter LANTUS SOLOSTAR U-100 INSULIN 100 UNIT/ML (3 ML) SUBCUTANEOUS PEN >> Lashawn Donald LPN 04/24/2017 2:29 PM >> LASHAWN DONALD LPN ThuApr 24, 2017 2:29 PM Not on list WELLBUTRIN SR 150 MG TABLET, 12 HR SUSTAINED-RELEASE >> Lashawn Donald LPN 04/24/2017 2:29 PM >> LASHAWN DONALD LPN ThuApr 24, 2017 2:29 PM Not on list PRILOSEC 20 MG CAPSULE,DELAYED RELEASE >> Lashawn Donald LPN 04/24/2017 2:30 PM >> LASHAWN DONALD LPN ThuApr 24, 2017 2:30 PM Not on list Problem List As Of Date 04/24/2017 Noted Resolved HTN (hypertension) [I10] CAD (coronary artery disease) [I25.10] More... Asthma [J45.909] OBST CHRON BRONCHITIS WITH EXAC [J44.1] More... CONGESTIVE HEART FAILURE NOS [I50.9] LUMB/LUMBOSAC DISC DEGEN [M51.37] Diabetes mellitus (HCC) [E11.9] INVALID FOR*04/17/2016 Recurrent major depression in partial remission*INVALID FOR* More... MORBID OBESITY [E66.01] INVALID FOR* Mixed hyperlipidemia [E78.2] INVALID FOR* DYSPHAGIA, OROPHARYNGEAL [R13.12] INVALID FOR*04/13/2008 Pain in limb [M79.609] INVALID FOR*04/17/2016 Tobacco use disorder [F17.200] INVALID FOR*07/06/[address] scan [R93.8] INVALID FOR*04/17/2016 More... Cardiomyopathy, Nonischemic [I42.8] INVALID FOR* More... 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*INVALID FOR*04/17/2016 Ankle instability [M25.373] INVALID FOR*04/17/2016 Sprain of ankle, unspecified site [S93.409A] INVALID FOR* Tibial plateau fracture [S82.143A] INVALID FOR*04/17/2016 Paroxysmal Atrial fibrillation (HCC) [I48.91] INVALID FOR* Primary osteoarthritis of right knee [M17.11] INVALID FOR* Chronic pain of right knee [M25.561, G89.29] INVALID FOR*04/17/2016 Pain of lower extremity [M79.606] INVALID FOR*04/17/2016 Noncompliance [Z91.19] INVALID FOR* Schizophreniform disorder, chronic condition (H* Other instructions from your clinician: LIFESTYLE CHANGE A healthy lifestyle is the most important component of your overall treatment plan. 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 EAT A WHOLE FOOD, PLANT BASED DIET The nutrition your body gets is more important than the medicine you take. What matters most is the overall way you eat. We encourage you to minimize the use of animal products (which include dairy and all meats except fatty fish) and use whole, unprocessed plant foods to provide your protein, vitamins and other nutrients. We have a lot of information to share with you on this topic. We also hold Shared Medical Appointments, where you can come visit with Dr. Pitts in the company of other patients and spend over an hour talking about the challenges of changing the way you eat. This is not a diet. It is a way of life that you will keep with you. EXERCISE REGULARLY It is not important to spend hours in the gym, lifting weights and perspiring heavily. A total of 2-3 hours per week of aerobic (causing you to be moderately short of breath) exercise is sufficient to improve your health. Talk to us before you begin a new exercise program, if you have heart disease or experience shortness of breath or chest pain. REDUCE STRESS Chronic emotional and physical stress leads to disease. Ways of reducing stress include meditation, visualization, prayer, yoga and other forms of relaxation therapy. Consistency is the wade. Find a technique that works for you and do it every day. CULTIVATE RELATIONSHIPS Loneliness and isolation have a major negative impact on health. Seek out others who can love, care for and nurture you. Avoid hurtful relationships. MAINTAIN IDEAL BODY WEIGHT The best way to do this is to do all the things above. Our bodies naturally find the right weight if we keep moving and feed ourselves the right food. If your BMI is greater than 25, we strongly recommend a referral to a weight management program. Please speak to us or your family physician about available programs. AVOID NICOTINE IN ALL FORMS This includes all tobacco products, whether chewed, smoked, vaped, or rubbed on the skin. Smoking cessation programs, which can make use of tobacco substitutes, medications to suppress cravings and behavior management, are available. Please contact your family physician about programs in your area. Visit Notes: >> August Moya) HEIDI Abdullahi ThuApr 27, 2017 9:04 AM Status: Signed Copy of OV note mailed to [facility]. >> August Moya) HEIDI Abdullahi ThuMay 13, 2017 8:20 AM Status: Signed Copy of OV note faxed to [facility] @ [phone] Prescriptions ordered this encounter Disp Refills Start End FUROSEMIDE 20 MG TABLET 180 * 3 04/24/2017 Class: Med Update Route: ORAL Sig: Take 2 tablets by mouth twice daily. POTASSIUM CHLORIDE ER 10 MEQ TABLET,* 04/24/2017 Class: Med Update Route: ORAL Sig: Take 1 tablet by mouth twice daily. Medications Discontinued During This Encounter furosemide (LASIX) 20 mg tablet 180 * 3 09/17/2015 04/24/2017 Route: ORAL Sig: Take 1 tablet by mouth twice daily. Disc: Reason for discontinue is not on file. Follow-up and Disposition History Recorded Encounter Status:Closed by SHANE PITTS MD on 04/24/17 DISCHARGE SUMMARY Observed: 02/20/2017 Status: F Source: [place] 6:50 PM [facility] [place] REPOSITORY [facility] Medical Records Department [address] [place] [id number] Discharge Summary 02/20/17 1837 MR#: [id number] Acct: [id number] Name: DARYA LARKIN Rep #: [id number] : 1955 61 From: Favian Montalvo DO PCP: Camden Burger Status: ADM IN Y Location: [place] [address] Discharge Date and Diagnosis - Problem List Patient Problems: Active and Suspected Problems Acute bronchitis due to human metapneumovirus (Acute) Hypomagnesemia (Acute) Acute and chronic respiratory failure with hypoxia (Acute) Date of Admission: 02/16/17 Date of Discharge: 02/20/17 - Primary Discharge Diagnosis Active and Suspected Problems Acute bronchitis due to human metapneumovirus (Acute) Acute exacerbation COPD Hypomagnesemia (Acute) Acute and chronic respiratory failure with hypoxia (Acute) HCAP - ruled out - Secondary Discharge Diagnosis Chronic Problems Former smoker (Chronic) Quit in the fall 2016 HTN (hypertension) (Chronic) Morbid obesity with BMI of 40.0-44.9, adult (Chronic) COPD (chronic obstructive pulmonary disease) (Chronic) Chronic pain (Chronic) Chronic atrial fibrillation (Chronic) Non-compliance (Chronic) with follow up with pulmonary Chronic hypoxemic respiratory failure (Chronic) Cardiomyopathy (Chronic) EF in Oct 2015 45-50 Hyperlipemia (Chronic) Type 2 diabetes mellitus (Chronic) GERD (gastroesophageal reflux disease) (Chronic) Anxiety (Chronic) Insomnia (Chronic) Hospital Course and Treatment Imaging Results: Clinical Impression(s) from Imaging Studies Chest X-Ray 02/16/17 14:16 IMPRESSION: There are findings consistent with COPD. There is no evidence of acute chest disease. Electronically Signed: Rojelio Haskins MD at 16:39 EST , Service support , None Operations: None Procedures: None Summary of Care Provided: Patient is a 61-year-old female with a past medical history of severe COPD, chronic pain, chronic atrial fibrillation, chronic hypoxemic respiratory failure, mild cardiomyopathy with a 45-50% EF in October 2015, hyperlipidemia, diabetes mellitus type 2, GERD and insomnia who presented to the emergency room at [facility] on 02/16/2017 complaining of increasing shortness of breath associated with a nonproductive cough and pleuritic type chest pain. She also complained of rhinorrhea and nasal congestion. She denied fever or shaking chills. Vital signs in the emergency room included temp 97.8, heart rate 70-90, blood pressure 118/67, respiratory rate of 21 and she was 95% saturated on a 4 L nasal cannula. She decompensated with even minimal exertion in the emergency room. White blood cell count was 13.3 with a left shift. Hemoglobin and platelets were within normal limits. Rapid influenza swab was negative. Chest x-ray showed no acute findings. EKG showed rate controlled atrial fibrillation with ST segment depressions. Troponin was <0.02 and follow-up troponins were also less than 0.02. She was admitted to the hospital with a diagnosis of acute on chronic hypoxic respiratory failure secondary to acute bronchitis. She was started on BiPAP and wore it throughout the night. Cefepime and azithromycin were started until cultures became available. Blood cultures and sputum culture were ordered. She was started on high-dose intravenous steroids, bnngce-hac-ejhet aerosol treatments, Mucinex and incentive spirometry was instituted. Respiratory panel was positive for Human Metaphpneumo Virus and antibiotics were discontinued. Sputum culture was positive only for presumptive Meri albicans. Streptococcal and Legionella antigens in the urine were negative and blood cultures had no growth. She improved and was transitioned to Prednisone on the evening of 02/19. On the day of DC the VS were temp 97.9, heart rate 68, blood pressure 137/73, respiratory rate 22 and she was 93% saturated on a 2 L nasal cannula. She had no tachypnea or conversational dyspnea. Auscultation of her lungs revealed diminished breath sounds with no wheezing, no rhonchi and no rales. She had an irregular heart rhythm with a controlled ventricular response. He was discharged to [place] a tapering dose of prednisone. I suggested she follow-up with either Dr. Prasad or Dr. Chong in the pulmonary office in 2-4 weeks to establish care. This note was generated with Innoz dictation software. It may contain incorrect words, spelling, and punctuation that were not noted in checking the note before signing. Home Medications: Medications to take at Discharge Atorvastatin Calcium [Lipitor] 40 mg PO QHS 03/27/16 BusPIRone [Buspar] 10 mg PO TID 03/27/16 Digoxin [Lanoxin] 250 mcg PO DAILY 03/27/16 Furosemide [Lasix] 20 mg PO BIDLX 03/27/16 Lisinopril [Zestril] 5 mg PO DAILY 03/27/16 Nitroglycerin [Nitrostat] 0.4 mg SUBLINGUAL Q5M PRN 03/27/16 Rivaroxaban [Xarelto] 20 mg PO DAILY 03/27/16 Guaifenesin [Mucinex] 1,200 mg PO BID #20 tablet 04/02/16 Insulin Glargine [Lantus SoloStar Pen] 55 units SC QHS 05/04/16 Diltiazem CD [Cardizem CD] 120 mg PO BID #60 capsule 05/06/16 Senna/Docusate Sodium [Senokot-S] 2 tablet PO QHS PRN PRN 06/24/16 Acetaminophen [Tylenol Tablet] 650 mg PO Q6H PRN PRN tablet 07/28/16 BuPROPion (SR) [Wellbutrin Sr] 150 mg PO BID 09/03/16 Famotidine [Pepcid] 20 mg PO BID #60 tablet 09/03/16 Albuterol Aerosols [Ventolin Aerosols] 2.5 mg INHALATION Q2H PRN PRN 09/09/16 Gabapentin [Neurontin] 100 mg PO TIDCM capsule 09/09/16 Glucagon 1 mg IM .X1 PRN syringe 09/09/16 Insulin Aspart [Novolog Flexpen] 8 units SC TIDAC 09/09/16 Ipratropium/Albuterol Sulfate [Duoneb] 3 ml INHALATION Q4H.RT 09/09/16 Lidocaine [Lidoderm Patch] 1 patch TOPICAL DAILY #3 patch 09/09/16 Mag Hydrox/Al Hydrox/Simeth [Mylanta II] 30 ml PO Q6H PRN PRN udc 09/09/16 Budesonide/Formoterol 160/4.5 [Symbicort 160/4.5 Mcg Inhaler (SP)] 2 puff INHALATION BID 02/16/17 Polyethylene Glycol 3350 [Miralax] 17 gm PO DAILY 02/16/17 Propranolol HCl [Inderal (Beta Lou)] 10 mg PO BID 02/16/17 Hydrocodone/Acetaminophen [[place] 5-325 Tablet] 1 ea PO Q6H PRN PRN #20 tab 02/20/17 Prednisone 10 mg PO UD #30 tab 02/20/17 Following Prescrptions Were Given to Patient: Hydrocodone/Acetaminophen [[place] 5-325 Tablet] 1 ea PO Q6H PRN PRN #20 tab PRN Reason: Pain Prednisone 10 mg PO UD #30 tab Primary Care Physician: Camden Burger [Primary Care Provider] - Please Follow Up With: Matthias Chong MD When: 2 weeks to establish with residential therapist for COPD with chronic resp failure Meaningful Use Info Meaningful Use Diagnoses (Choose all that apply): None applicable Code Visit Inpatient E AND M: 20862 Disch Hosp 02/20/17 4416 <Electronically signed by Favian Montalvo DO> Date Favian Montalvo DO Cosigner Signature (if applicable): Date CC: Camden Burger; Matthias Chong MD; Avis Montalvo; Camden Burger MD; Rai Cardenas MD Signed TRANSFER TO EXTENDED Observed: 02/20/2017 Status: F Source: [facility] 6:37 PM [facility] REPOSITORY [facility] Medical Records Department [address] [place] [address] Transfer to Extended Care MR#: [id number] Acct: [id number] Name: DARYA LARKIN Rep #: [id number] : 1955 61 From: Favian Montalvo DO PCP: Camden Burger Status: ADM IN DARYA LARKIN (Patient) (Health Ins. Claim No.) (Day of Discharge to Facility) Certification of patient admission REQUIRED AT TIME OF ADMISSION. I CERTIFY THAT POST-HOSPITAL ECF SERVICES ARE REQUIRED TO BE GIVEN ON AN IN-PATIENT BASIS BECAUSE OF THE ABOVE NAMED PATIENT'S NEED FOR PRISON CARE ON A CONTINUING BASIS FOR THE CONDITION(S) FOR WHICH HE/SHE WAS RECEIVING IN-PATIENT HOSPITAL SERVICES PRIOR TO HIS/HER TRANSFER TO THE ECF. 02/20/17 1837 <Electronically signed by Favian Montalvo DO> Date Favian Montalvo DO - Diet 02/16/17 16:38 Diet: Cardiac: Calorie-Controlled Food consistency:: Regular Liquid Consistency:: Regular/Thin Is pt able to select menu?: Yes How many daily calories?: 1600 calorie - Routine Orders/Code Status Enema Type: Fleetz Enema Frequency: Daily PRN Suppository Type: Dulcolax 10mg Suppository Frequency: Daily PRN O2 Liters per Minute: 2-3 O2 Frequency: Continuous Keep PO Greater than or Equal to (%): 88 - Problem/Diagnosis (1) Acute bronchitis due to human metapneumovirus Status: Acute Current Visit: Yes (2) Hypomagnesemia Status: Acute Current Visit: Yes (3) Former smoker Status: Chronic Comment: Quit in the fall 2016 Current Visit: Yes (4) Atrial fibrillation with RVR Status: Resolved Current Visit: No (5) COPD with acute exacerbation Status: Acute Current Visit: No (6) Gram-negative pneumonia Status: Resolved Current Visit: No (7) Anxiety Status: Chronic Current Visit: No (8) COPD (chronic obstructive pulmonary disease) Status: Chronic Current Visit: No (9) Cardiomyopathy Status: Chronic Comment: EF in Oct 2015 45-50 Current Visit: No (10) Chronic atrial fibrillation Status: Chronic Current Visit: No (11) Chronic hypoxemic respiratory failure Status: Chronic Current Visit: No (12) Chronic pain Status: Chronic Current Visit: No (13) GERD (gastroesophageal reflux disease) Status: Chronic Current Visit: No (14) HTN (hypertension) Status: Chronic Current Visit: No (15) Hyperlipemia Status: Chronic Current Visit: No (16) Insomnia Status: Chronic Current Visit: No (17) Morbid obesity with BMI of 40.0-44.9, adult Status: Chronic Current Visit: No (18) Non-compliance Status: Chronic Comment: withn follow up with pulmonary Current Visit: No (19) Type 2 diabetes mellitus Status: Chronic Current Visit: No (20) Acute and chronic respiratory failure with hypoxia Status: Acute Current Visit: Yes (21) Pneumonia Status: Ruled-out Current Visit: Yes - Allergies/Procedures Done in Hospital Allergies/Adverse Reactions: Allergies venom-honey bee [bee venom (honey bee)] Allergy (Verified 09/03/16 20:44) Swelling levofloxacin [From Levaquin] Adverse Reaction (Verified 09/03/16 20:44) Nausea oxycodone HCl [From Percocet] Adverse Reaction (Verified 09/03/16 20:44) Nausea Penicillins Adverse Reaction (Verified 09/03/16 20:44) Nausea/Vom/Diarrhea Procedures: None - Type of Care/Length of Stay Estimated LOS: More Than 30 Days Type of Care Needed: Assisted/Assisted Living Rehab Potential: Good Prognosis: Good - Additional Orders/Day of Discharge H AND P will serve as current which was dated: 02/16/17 Day of Discharge: 02/20/17 - Dietary and Speech Recommendations Dietitian Recommendations/Changes: Rec diet change to 1600 calorie controlled, cardiac. - Follow Up Care Primary Care Physician: Camden Burger [Primary Care Provider] - Please Follow Up With: Matthias Chong MD When: 2 weeks to establish with residential therapist for COPD with chronic resp failure 02/20/17 1840 <Electronically signed by M C. Sementi DO> Date M Reji Montalvo DO CC: Camden Burger; Camden Burger MD; Rai Cardenas MD Signed BEDSIDE GLUCOSE Collected: 02/20/2017 Status: F Source: [place] 4:34 PM [facility] REPOSITORY TYPE CODE TESTS RESULT OUT OF REFERENCE UNITS RANGE LAB L501.080 70-110 mg/dL High BEDSIDE GLU 188 Result Comment: MANAGEMENT OF PATIENT CARE PER NURSING PROTOCOL Performed By: #### L501.080 #### [facility] [address] [facility] [facility] [place] [address] 12 LEAD ELECTROCARDIOGRAM Observed: 02/20/2017 Status: F Source: [place] 11:52 AM [facility] REPOSITORY [facility] Cardiovascular Services [address] [place] [address] 12 Lead EKG 02/17/17 0515 MR#: [id number] Acct: [id number] Name: DARYA LARKIN Rep #: [id number] : 1955 61 From: Lan Lilly MD Attending Dr: Avis Montalvo Status: ADM IN Ordering Dr: Jo Esposito Date: 02/17/17 Location: [facility] Sex: F C Admitted: 02/16/17 Test Reason : AM EKG Blood Pressure : / mmHG Vent. Rate : 072 BPM Atrial Rate : 441 BPM P-R Int : 000 ms QRS Dur : 100 ms QT Int : 356 ms P-R-T Axes : 000 068 -81 degrees QTc Int : 389 ms Atrial fibrillation Nonspecific ST and T wave abnormality Abnormal ECG When compared with ECG of 16-FEB-2017 13:47, MANUAL COMPARISON REQUIRED, DATA IS UNCONFIRMED Confirmed by LAN LILLY MD ([id number]), photography editor DIANA GALVEZ ([id number]) on 02/20/2017 11:52:46 AM Referred By: Camden Burger Confirmed By:LAN LILLY MD 02/20/17 1152 Date Lan Lilly MD CC: Camden Burger; Rai Cardenas MD Signed BEDSIDE GLUCOSE Collected: 02/20/2017 Status: F Source: [place] 11:32 AM [facility] REPOSITORY TYPE CODE TESTS RESULT OUT OF REFERENCE UNITS RANGE LAB L501.080 70-110 mg/dL High BEDSIDE GLU 274 Result Comment: MANAGEMENT OF PATIENT CARE PER NURSING PROTOCOL Performed By: #### L501.080 #### [facility] Point of Care [address] [place] [address] BEDSIDE GLUCOSE Collected: 02/20/2017 Status: F Source: [place] 6:48 AM [facility] REPOSITORY TYPE CODE TESTS RESULT OUT OF REFERENCE UNITS RANGE LAB L501.080 70-110 mg/dL High BEDSIDE GLU 234 Result Comment: MANAGEMENT OF PATIENT CARE PER NURSING PROTOCOL Performed By: #### L501.080 #### [facility] Point of Care [address] [place] [address] BEDSIDE GLUCOSE Collected: 02/19/2017 Status: F Source: [place] 10:49 PM [facility] REPOSITORY TYPE CODE TESTS RESULT OUT OF REFERENCE UNITS RANGE LAB L501.080 70-110 mg/dL High BEDSIDE GLU 352 Result Comment: MANAGEMENT OF PATIENT CARE PER NURSING PROTOCOL Performed By: #### L501.080 #### [facility] Point of Care [address] [place] [address] BEDSIDE GLUCOSE Collected: 02/19/2017 Status: F Source: [place] 4:17 PM [facility] REPOSITORY TYPE CODE TESTS RESULT OUT OF REFERENCE UNITS RANGE LAB L501.080 70-110 mg/dL High BEDSIDE GLU 220 Result Comment: MANAGEMENT OF PATIENT CARE PER NURSING PROTOCOL Performed By: #### L501.080 #### [facility] Point of Care [address] [place] [address] BEDSIDE GLUCOSE Collected: 02/19/2017 Status: F Source: [place] 11:17 AM [facility] REPOSITORY TYPE CODE TESTS RESULT OUT OF REFERENCE UNITS RANGE LAB L501.080 70-110 mg/dL High BEDSIDE GLU 226 Result Comment: MANAGEMENT OF PATIENT CARE PER NURSING PROTOCOL Performed By: #### L501.080 #### [facility] Point of Care [address] [place] [address] BEDSIDE GLUCOSE Collected: 02/19/2017 Status: F Source: [place] 7:04 AM [facility] REPOSITORY TYPE CODE TESTS RESULT OUT OF REFERENCE UNITS RANGE LAB L501.080 70-110 mg/dL High BEDSIDE GLU 134 Result Comment: MANAGEMENT OF PATIENT CARE PER NURSING PROTOCOL Performed By: #### L501.080 #### [facility] Point of Care [address] [place] [address] BEDSIDE GLUCOSE Collected: 02/18/2017 Status: F Source: [place] 11:29 PM [facility] REPOSITORY TYPE CODE TESTS RESULT OUT OF REFERENCE UNITS RANGE LAB L501.080 70-110 mg/dL High BEDSIDE GLU 297 Result Comment: MANAGEMENT OF PATIENT CARE PER NURSING PROTOCOL Performed By: #### L501.080 #### [facility] Point of Care [address] [place] [address] BEDSIDE GLUCOSE Collected: 02/18/2017 Status: F Source: [place] 4:46 PM [facility] REPOSITORY TYPE CODE TESTS RESULT OUT OF REFERENCE UNITS RANGE LAB L501.080 70-110 mg/dL High BEDSIDE GLU 232 Result Comment: MANAGEMENT OF PATIENT CARE PER NURSING PROTOCOL Performed By: #### L501.080 #### [facility] Point of Care [address] [place] [address] 12 LEAD ELECTROCARDIOGRAM Observed: 02/18/2017 Status: F Source: [place] 2:37 PM [facility] REPOSITORY [facility] Cardiovascular Services [address] [place] [address] 12 Lead EKG 02/16/17 1347 MR#: [id number] Acct: [id number] Name: DARYA LARKIN Rep #: [id number] : 1955 61 From: Lan Lilly MD Attending Dr: Avis Montalvo Status: ADM IN Ordering Dr: Mitali Vogel Date: 02/16/17 Location: PCU Sex: F C Admitted: 02/16/17 Test Reason : SOB Blood Pressure : / mmHG Vent. Rate : 087 BPM Atrial Rate : 202 BPM P-R Int : 000 ms QRS Dur : 088 ms QT Int : 328 ms P-R-T Axes : 000 071 -76 degrees QTc Int : 394 ms Atrial fibrillation Septal infarct , age undetermined ST AND T wave abnormality, consider inferior ischemia ST AND T wave abnormality, consider anterolateral ischemia Abnormal ECG Confirmed by LAN LILLY MD ([id number]), photography editor DIANA GALVEZ ([id number]) on 02/18/2017 2:36:39 PM Referred By: Camden Burger Confirmed By:LAN LILLY MD 02/18/17 1436 Date Lan Lilly MD CC: Camden Burger; Rai Cardenas MD Signed BEDSIDE GLUCOSE Collected: 02/18/2017 Status: F Source: [place] 11:25 AM [facility] REPOSITORY TYPE CODE TESTS RESULT OUT OF REFERENCE UNITS RANGE LAB L501.080 70-110 mg/dL High BEDSIDE GLU 333 Result Comment: MANAGEMENT OF PATIENT CARE PER NURSING PROTOCOL Performed By: #### L501.080 #### [facility] Point of Care [address] [place] [address] BEDSIDE GLUCOSE Collected: 02/18/2017 Status: F Source: [place] 6:48 AM [facility] REPOSITORY TYPE CODE TESTS RESULT OUT OF REFERENCE UNITS RANGE LAB L501.080 70-110 mg/dL High BEDSIDE GLU 134 Result Comment: MANAGEMENT OF PATIENT CARE PER NURSING PROTOCOL Performed By: #### L501.080 #### [facility] Point of Care [address] [place] [address] COMPREHENSIVE METABOLIC Collected: 02/18/2017 Status: F Source: [place] PROFIL 6:45 AM [facility] REPOSITORY TYPE CODE TESTS RESULT OUT OF RANGE REFERENCE UNITS LAB L501.0100 70-110 mg/dL High GLU 124 Result Comment: Fasting Glucose result from 110 to <126 mg/dL suggests IMPAIRED HOMEOSTASIS per A.D.A. criteria. LAB L501.1000 7-18 mg/dL Normal BUN 16 LAB L501.1100 0.55-1.02 mg/dL Normal CREAT,SERUM 0.61 Result Comment: The validity of the calculated GFR AND GFRAA in patients over 70 years has not been determined. Clinical correlation is essential. LAB L501.1110 >60 mL/min Normal EST GFR 106 Result Comment: Non- GFR Calc LAB L501.1115 >60 mL/min Normal EST GFR - AA 129 Result Comment: GFR Calc LAB L501.1255 ml/min Normal Estimated CRCL 73.08 LAB L501.1300 10-20 RATIO High BUN/CRE 26.4 LAB L501.1500 6.4-8. g/dL Low 2 T PROT 6.2 LAB L501.1800 3.4-5. g/dL Low 0 ALB 2.5 Result Comment: Please note revised Albumin AND Globulin reference range effective 2016. LAB L501.1950 2.2-4.2 g/dL Normal GLOB 3.7 LAB L501.2000 0.9-2.4 RATIO Low A/G 0.7 LAB L501.2200 8.5-10.1 mg/dL Low CA 8.4 LAB L501.4100 15-37 U/L Low AST 7 LAB L501.4305 45-117 U/L Normal ALK P 97 LAB L501.4405 12-78 U/L Normal ALT 16 LAB L501.4600 0.20-1.00 mg/dL Normal T BILI 0.30 LAB L501.5300 136-145 mmol/L Normal NA 140 LAB L501.5600 3.5-5.1 mmol/L Normal K 3.8 LAB L501.5900 98-107 mmol/L Normal CL 107 LAB L501.6100 21.0-32.0 mmol/L Normal CO2 26.0 LAB L501.6200 5-15 Normal GAP 7 Performed By: #### L500.4050, L501.2300, L501.5200 #### [facility] [address] [place], [address] PHOSPHORUS Collected: 02/18/2017 Status: F Source: [place] 6:45 AM [facility] REPOSITORY TYPE CODE TESTS RESULT OUT OF RANGE REFERENCE UNITS LAB L501.2300 2.5-4.9 mg/dL Low PHOS 2.3 Performed By: #### L500.4050, L501.2300, L501.5200 #### [facility] [address] [place], [address] MAGNESIUM Collected: 02/18/2017 Status: F Source: [place] 6:45 AM [facility] REPOSITORY TYPE CODE TESTS RESULT OUT OF RANGE REFERENCE UNITS LAB L501.5200 1.8-2.4 mg/dL Normal MG 2.1 Performed By: #### L500.4050, L501.2300, L501.5200 #### [facility] [address] [facility] [place], [address] DIGOXIN LEVEL Collected: 02/18/2017 Status: F Source: [place] 6:45 AM [facility] REPOSITORY TYPE CODE TESTS RESULT OUT OF RANGE REFERENCE UNITS LAB L501.7510 0.80-2.00 ng/mL Normal DIG 1.02 Performed By: #### L501.7510 #### [facility] [facility] [place], [address] M R STAPH AUREUS Collected: 02/18/2017 Status: F Source: [place] DNA BY PCR 4:00 AM [facility] REPOSITORY TYPE CODE TESTS RESULT OUT OF RANGE REFERENCE UNITS LAB L8200.1100 Negative Normal MRSA Negative RESULT Performed By: #### L8200.1000 #### [facility] [address] [place] [address]. [place], [address] BEDSIDE GLUCOSE Collected: 02/17/2017 Status: F Source: [place] 9:39 PM [facility] REPOSITORY TYPE CODE TESTS RESULT OUT OF REFERENCE UNITS RANGE LAB L501.080 70-110 mg/dL High BEDSIDE GLU 343 Result Comment: MANAGEMENT OF PATIENT CARE PER NURSING PROTOCOL Performed By: #### L501.080 #### [facility] Point of Care [address] [facility] [place] [address] BEDSIDE GLUCOSE Collected: 02/17/2017 Status: F Source: [place] 4:32 PM [facility] REPOSITORY TYPE CODE TESTS RESULT OUT OF REFERENCE UNITS RANGE LAB L501.080 70-110 mg/dL High BEDSIDE GLU 177 Result Comment: Dr Orders Followed Insulin Given MANAGEMENT OF PATIENT CARE PER NURSING PROTOCOL Performed By: #### L501.080 #### [facility] Point of Care [address] [place], [place] [address] BEDSIDE GLUCOSE Collected: 02/17/2017 Status: F Source: [place] 11:43 AM [facility] REPOSITORY TYPE CODE TESTS RESULT OUT OF REFERENCE UNITS RANGE LAB L501.080 70-110 mg/dL High BEDSIDE GLU 285 Result Comment: MANAGEMENT OF PATIENT CARE PER NURSING PROTOCOL Performed By: #### L501.080 #### [facility] Point of Care [address] [place], [place] [address] Observed: 02/17/2017 Status: F Source: [place] CULTURE, SPUTUM 7:45 AM [facility] REPOSITORY Gram Stain Acceptable Specimen? Yes (<25 Epithelial cells per/lpf) Gram Stain 4+ White Blood Cells 1+ Epithelial cells Rare Gram positive cocci Resp. Culture Mixed normal respiratory stephanie. No Haemophilus, Streptococcus pneumoniae, beta-hemolytic Streptococcus or Staphylococcus aureus isolated. ORGANISM 1: Presumptive C albicans Amount Growth Rare Performed By: #### M100.0800 #### [facility] [address] [place], [place], [address] BEDSIDE GLUCOSE Collected: 02/17/2017 Status: F Source: [place] 6:49 AM [facility] REPOSITORY TYPE CODE TESTS RESULT OUT OF REFERENCE UNITS RANGE LAB L501.080 70-110 mg/dL High BEDSIDE GLU 249 Result Comment: MANAGEMENT OF PATIENT CARE PER NURSING PROTOCOL Performed By: #### L501.080 #### [facility] Point of Care [address] [place], [place] [address] TROPONIN-I Collected: 02/17/2017 Status: F Source: [place] 5:08 AM [facility] REPOSITORY Order Comment: 'TROP' Serial specimen #1, #2, #3, or #4: 4 TYPE CODE TESTS RESULT OUT OF RANGE REFERENCE UNITS LAB L501.4010 <0.06 ng/mL Normal < 0.02 TROPONIN-I Result Comment: TROPONIN-I EXPECTED VALUES <0.05 NEGATIVE 0.06 - 0.59 AT RISK OF [place] > OR = 0.60 SUGGEST KS Performed By: #### L501.4010 #### [facility] [address], [address] CBC W/DIFF, AUTOMATED Collected: 02/17/2017 Status: F Source: [place] 5:08 AM [facility] REPOSITORY TYPE CODE TESTS RESULT OUT OF RANGE REFERENCE UNITS LAB L100.1000 4.4-11.0 K/mm3 Normal WBC 9.4 LAB L100.1200 4.2-5.4 M/mm3 Low RBC 3.92 LAB L100.1300 12.0-15.0 g/dl Low HGB 10.8 LAB L100.1400 37-47 % Low HCT 33.9 LAB L100.1500 81-99 fL Normal MCV 86.5 LAB L100.1600 27.0-32.0 pg Normal MCH 27.6 LAB L100.1700 32-36 g/gl Low MCHC 31.9 LAB L100.1810 11.6-14.6 % High RDW CV 14.9 LAB L100.1820 35.1-43.9 fl High RDW SD 46.6 LAB L100.1900 150-450 K/mm3 Normal PLT 254 LAB L100.2000 6.2-12.0 fl Normal MPV 10.0 LAB L100.2100 47-70 % High NEUT% 84.3 LAB L100.2200 19-41 % Low LY% 13.6 LAB L100.2300 0-10 % Normal MONO% 1.6 LAB L100.2400 0-5 % Normal EO% 0.0 LAB L100.2500 0-1 % Normal BASO% 0.2 LAB L100.2550 0.0-0.9 % Normal IM GRAN % 0.300 Result Comment: IG% - Immature Granulocytes (promyelocytes, myelocytes and metamyelocytes) > 1% indicates that a LEFT SHIFT is Present. LAB L100.2620 2.0-7.7 X10 3/uL High Absolute Neut 7.9 LAB L100.2720 0.83-4.51 X10 3/ul Normal Absolute Lymph 1.28 Performed By: #### L100.0100 #### [facility] [address] [place], [address] BASIC METABOLIC Collected: 02/17/2017 Status: F Source: [place] PROFILE (BMP) 5:08 AM [facility] REPOSITORY TYPE CODE TESTS RESULT OUT OF RANGE REFERENCE UNITS LAB L501.0100 70-110 mg/dL High GLU 275 Result Comment: Glucose result greater than or equal to 200 mg/dL suggests DIABETES MELLITUS per A.D.A. criteria. LAB L501.1000 7-18 mg/dL Normal BUN 16 LAB L501.1100 0.55-1.02 mg/dL Normal CREAT,SERUM 0.75 Result Comment: The validity of the calculated GFR AND GFRAA in patients over 70 years has not been determined. Clinical correlation is essential. LAB L501.1110 >60 mL/min Normal EST GFR 84 Result Comment: Non- GFR Calc LAB L501.1115 >60 mL/min Normal EST GFR - AA 101 Result Comment: GFR Calc LAB L501.1255 ml/min Normal Estimated CRCL 59.44 LAB L501.1300 10-20 RATIO High BUN/CRE 21.4 LAB L501.2200 8.5-10 mg/dL Low .1 CA 8.3 LAB L501.5300 136-14 mmol/L Low 5 NA 135 LAB L501.5600 3.5-5. mmol/L Normal 1 K 4.1 LAB L501.5900 98-107 mmol/L Normal CL 101 LAB L501.6100 21.0-3 mmol/L Normal 2.0 CO2 23.0 LAB L501.6200 5-15 Normal GAP 11 Performed By: #### L500.2500, L501.5200 #### [facility] [address] [place], [address] MAGNESIUM Collected: 02/17/2017 Status: F Source: [place] 5:08 AM [facility] REPOSITORY TYPE CODE TESTS RESULT OUT OF RANGE REFERENCE UNITS LAB L501.5200 1.8-2.4 mg/dL Normal MG 2.3 Performed By: #### L500.2500, L501.5200 #### [facility] [address] [place], [address] Observed: 02/16/2017 Status: F Source: [place] LEGIONELLA ANTIGEN 11:05 PM [facility] URINE REPOSITORY Legionella, UR Legionella Antigen result interpretation: Negative Presumptive negative for Legionella pneumophila serogroup 1 antigen in urine, suggesting no recent or current infection. Legionella Ag, Urine Negative (See interpretation below) Performed By: #### M300.4500 #### [facility] [address] [place], [address] STREP Observed: 02/16/2017 Status: F Source: [place] PNEUMONIAE ANTIG(UR,CSF) 11:05 PM [facility] REPOSITORY S pneumo Ag URINE INTERPRETATION Negative Urine Presumptive negative for pneumococcal pneumonia, suggesting no current or recent pneumococcal infection. Infection due to S pneumoniae cannot be ruled out since the antigen present in the sample may be below the detection limit of the test. Strep pneumo Test Negative URINE (See interpretation below) Performed By: #### M300.4600 #### [facility] [place], [address] MAGNESIUM Collected: 02/16/2017 Status: F Source: [place] 7:17 PM [facility] REPOSITORY TYPE CODE TESTS RESULT OUT OF RANGE REFERENCE UNITS LAB L501.5200 1.8-2.4 mg/dL Low MG 1.5 Performed By: #### L501.5200 #### [facility] [address] [place], [address] TROPONIN-I Collected: 02/16/2017 Status: F Source: [place] 7:17 PM [facility] REPOSITORY Order Comment: 'TROP' Serial specimen #1, #2, #3, or #4: 2 TYPE CODE TESTS RESULT OUT OF RANGE REFERENCE UNITS LAB L501.4010 <0.06 ng/mL Normal < 0.02 TROPONIN-I Result Comment: TROPONIN-I EXPECTED VALUES <0.05 NEGATIVE 0.06 - 0.59 AT RISK OF [place] > OR = 0.60 SUGGEST KS Performed By: #### L501.4010 #### [facility] [address] [place], [address] BEDSIDE GLUCOSE Collected: 02/16/2017 Status: F Source: [place] 6:15 PM [facility] REPOSITORY TYPE CODE TESTS RESULT OUT OF REFERENCE UNITS RANGE LAB L501.080 70-110 mg/dL High BEDSIDE GLU 268 Result Comment: MANAGEMENT OF PATIENT CARE PER NURSING PROTOCOL Performed By: #### L501.080 #### [facility] Point of Care [address] [place] [address] HISTORY AND PHYSICAL Observed: 02/16/2017 Status: F Source: [place] EXAM 6:11 PM [facility] REPOSITORY [facility] Medical Records Department [address] [place] [address] History and Physical 02/16/17 1622 MR#: [id number] Acct: [id number] Name: DARYA LARKIN Rep #: [id number] : 1955 61 From: Jo Esposito PCP: Camden Burger Status: ADM IN Location: [place] [address] Problem List (1) HTN (hypertension) Status: Chronic Qualifiers: Hypertension type: essential hypertension Qualified Code(s): I10 - Essential (primary) hypertension (2) Morbid obesity with BMI of 40.0-44.9, adult Status: Chronic (3) COPD (chronic obstructive pulmonary disease) Status: Chronic Qualifiers: COPD type: unspecified COPD Qualified Code(s): J44.9 - Chronic obstructive pulmonary disease, unspecified (4) Chronic pain Status: Chronic Qualifiers: Chronic pain type: chronic pain syndrome Qualified Code(s): G89.4 - Chronic pain syndrome (5) Chronic atrial fibrillation Status: Chronic (6) Chronic hypoxemic respiratory failure Status: Chronic (7) Cardiomyopathy Status: Chronic Qualifiers: Cardiomyopathy type: unspecified Qualified Code(s): I42.9 - Cardiomyopathy, unspecified Comment: EF in Oct 2015 45-50 (8) Hyperlipemia Status: Chronic Qualifiers: Hyperlipidemia type: unspecified Qualified Code(s): E78.5 - Hyperlipidemia, unspecified (9) Type 2 diabetes mellitus Status: Chronic Qualifiers: Diabetes mellitus complication status: with unspecified complications Diabetes mellitus terminal computer operator insulin use: with terminal computer operator use Qualified Code(s): E11.8 - Type 2 diabetes mellitus with unspecified complications; Z79.4 - technician terminal and repeater (current) use of insulin; Z79.4 - senior care (current) use of insulin; Z79.4 - senior care (current) use of insulin; Z79.4 - technician terminal and repeater (current) use of insulin (10) GERD (gastroesophageal reflux disease) Status: Chronic Qualifiers: Esophagitis presence: esophagitis presence not specified Qualified Code(s): K21.9 - Gastro-esophageal reflux disease without esophagitis (11) Anxiety Status: Chronic (12) Insomnia Status: Chronic Qualifiers: Insomnia type: unspecified Qualified Code(s): G47.00 - Insomnia, unspecified (13) Tobacco dependence Status: Chronic History of Present Illness Date of Admission: 02/16/17 Chief Complaint: Dyspnea, non productive cough, pleuritic chest discomfort. The patient is a 61 y/o F w/ PMHx: Obesity, History of Tobacco use prior, Anxiety and Depression, Chronic Hypoxic Respiratory Failure (2-3L NC baseline) w/ Chronic COPD, HTN, HLD, Diabetes mellitus type II, History of SVT, Permanent atrial fibrillation, CAD who presents to the [facility] ED on 02/16/17 w/ productive cough, dyspnea worsening, lower pleuritic chest discomfort, rhinorrhea and congestion x 2-3 days without notable fever or chills. She notes having similarly ill sick contacts during the holidays. In the ED upon presentation she was noted to be initially markedly hypoxic, worse with any movement attempts, markedly increased RR, accessory muscle usage but did improve after aerosols per ED report. Work-up in the ED included T 97.8, HR 70-90, BP 118/67, RR 21, 95% on 4 L NC, CBC w/ WBC 13.3 Hgb 12.3, Plts 299 with L shift, ABG w/ pH 7.46, bicarb 29.4, O2 92, pO2 61, pCO2 41.9, BMP remarkable for glucose 210, trop < 0.02, Bld Cx x 2 obtained in the ED, rapid flu negative, CXR w/ LLL infiltrate, EKG w/ rate controlled atrial fibrillation w/ diffuse ST depressions w/ prior CAD hx with pending comparison. In the ED patient administered solumedrol, duoneb, albuterol, cefepime given GNR organism hx, azithromycin. In the ED upon evaluation, status worsened, requested per discussion with ED physician patient to be initiated on BIPAP. Past Medical History Past Medical History (Chronic Problems): Chronic Problems HTN (hypertension) (Chronic) Obesity (BMI 30-39.9) (Chronic) Morbid obesity with BMI of 40.0-44.9, adult (Chronic) COPD (chronic obstructive pulmonary disease) (Chronic) Chronic pain (Chronic) Chronic atrial fibrillation (Chronic) Non-compliance (Chronic) Chronic hypoxemic respiratory failure (Chronic) Cardiomyopathy (Chronic) EF in Oct 2015 45-50 Hyperlipemia (Chronic) Type 2 diabetes mellitus (Chronic) GERD (gastroesophageal reflux disease) (Chronic) Anxiety (Chronic) Insomnia (Chronic) Tobacco dependence (Chronic) Allergies venom-honey bee [bee venom (honey bee)] Allergy (Verified 09/03/16 20:44) Swelling levofloxacin [From Levaquin] Adverse Reaction (Verified 09/03/16 20:44) Nausea oxycodone HCl [From Percocet] Adverse Reaction (Verified 09/03/16 20:44) Nausea Penicillins Adverse Reaction (Verified 09/03/16 20:44) Nausea/Vom/Diarrhea Home Medications: Ambulatory Orders Medication Instructions Recorded Atorvastatin Calcium [Lipitor] 40 mg PO QHS 03/27/16 BusPIRone [Buspar] 10 mg PO TID 03/27/16 Digoxin [Lanoxin] 250 mcg PO DAILY 03/27/16 Surgical History: hysterectomy, tonsillectomy, - - Lumbar surgery. Psychiatric History: Anxiety, Depression COURTROOM REPORTER History: No pertinent COURTROOM REPORTER history Lives: Alone Smoking Status: Former smoker - Notes quiting 4 months prior. Tobacco Use: Non-smoker Alcohol: None Drugs: None - *Family History Maternal History Items: - - She reports that she is unaware of what her mother's health history was like Paternal History Items: Cancer, - - father with throat cancer. Sibling History Items: Asthma, COPD, Hypertension Review of Systems Constitutional: Reports: Chills, Malaise, Weakness, Fatigue. Denies: Fever, Weight Change HEENT: Denies: Head Aches, Sinus Congestion, Sinus Drainage Cardiovascular: Reports: Chest Pain. Denies: Palpitations Respiratory: Reports: Cough, Shortness of Breath, Shortness of breath at rest, Shortness of breath upon exertion, Sputum production, Wheezing Gastrointestinal: Denies: Abdominal Pain, Nausea, Vomiting Genitourinary: Denies: Dysuria Musculoskeletal: Reports: Back Pain. Denies: Joint Pain, Joint Tenderness Skin: Denies: Rash, Wounds Neurological: Denies: Numbness, Tingling, Focal weakness Psychiatric: Reports: Anxiety, Depression. Denies: Homicidal Ideations, Suicidal Ideations Hematologic/ Lymphatic: Reports: Easy Bruising, Easy Bleeding VTE Information - Inpt Only VTE Present on Admission: No VTE Mechan Device Prophylaxis: SCD's VTE Pharm Prophylaxis ordered?: No Reason prophylaxis not ordered:: Treatment Not Indicated Subjective: Seated upright in the ED bed, evident respiratory distress, accessory muscle usage, increased RR, need to pause with conversation secondary to dyspnea. Objective: Physical Examination: General: awake, alert, oriented x 3 and cooperative, seated upright in ED bed, accessory muscle usage, increased respiratory rate, exertional conversational dyspnea. Skin: normal color, turgor, no icterus, cyanosis. HEENT: AT/NC, EOMI, PERRLA, dry MM, no carotid bruits or JVD noted. Lungs: Severely diminished, coarse BS, > L bases, poor effort, diffuse inspiratory and expiratory wheezing, shallow, accessory muscle usage, increased respiratory rate, exertional conversational dyspnea. Heart: Irregular, rate controlled; no gallop, rub audible. Abdomen: soft, morbidly obese, NTTP, ND, normal BS, no HSM; however, habitus makes examination difficult. Extremities: no cyanosis, clubbing, or edema. Neurological: patient awake, alert, oriented x 3; cognitive function intact; pupils equally reactive to light and accomodation; cranial nerves II-XII grossly normal, moving all 4 extremities, no focal deficits, strength severely globally decreased secondary to acute presentation. Psychiatric: affect appears flat, fatigued, no acute evidence of depressive or anxiety feelings. - Physical Exam Vital Signs Temp Pulse Resp BP Pulse Ox 97.8 F 85 21 H 118/67 94 02/16/17 13:43 02/16/17 15:01 02/16/17 15:01 02/16/17 15:01 02/16/17 15:01 Oxygen Flow Rate 4 Oxygen Delivery Method Nasal Cannula Weight: 223 lb 1.725 oz Body Mass Index (BMI) 42.1 Finger Stick Blood Glucose 364 Microbiology Past 72 Hours 02/16/17 14:30 Influenza Types A,B Direct FA (LAURA) - Final Mucosa - Nasopharyngeal Laboratory Tests Past 24 Hrs WBC 13.3 H RBC 4.43 Hgb 12.3 Hct 38.6 MCV 87.1 MCH 27.8 MCHC 31.9 L Assessment/Plan The patient is a 61 y/o F w/ PMHx: Obesity, History of Tobacco use prior, Anxiety and Depression, Chronic Hypoxic Respiratory Failure (2-3L NC baseline) w/ Chronic COPD, HTN, HLD, Diabetes mellitus type II, History of SVT, Permanent atrial fibrillation, CAD who presents to the [facility] ED on 02/16/17 w/ productive cough, dyspnea worsening, lower pleuritic chest discomfort, rhinorrhea and congestion x 2-3 days without notable fever or chills. (1) Acute on Chronic Hypoxic Respiratory Failure secondary to Acute on Chronic COPD exacerbation and Pneumonia, Possible GN Organism: Increased RR, accessory muscle usage, BIPAP initiated in the ED given worsened appearance as had temporarily improved following initial ED interventions. CXR in the ED w/ ? LLL infiltrate, CBC w/ WBC 13.3 with L shift. Will admit to PCU given pulmonary presentation per discussion with ED, maintain on BIPAP until improved w/ then transition to oxygen with wean as tolerated to home oxygen supplementation, continue ATC duonebs, PRN albuterol, maintain on IV solumedrol, maintain on IV cefepime, azithromycin given last admission 08/2016 but noted history of GN organisms, HOB, IS parameters w/ pending sputum cultures and urine antigens, obtain respiratory viral panel. Bld cx x 2 obtained in the ED. (2) Chest Pain: Likely Pleuritic, initial trop normal x 1, EKG in ED w/ chronic rate controlled atrial fibrillation w/ diffuse ST depressions, maintain on telemetry, cycle cardiac enzymes, pending review of prior EKGs, obtain mag and supplement if needed, continue home regimen digoxin, cardizem, xarelto regimen. (3) CAD: Will continue home regimen asa, statin, BB. (4) Permanent atrial fibrillation: EKG in ED w/ chronic rate controlled atrial fibrillation w/ diffuse ST depressions, maintain on telemetry, cycle cardiac enzymes, pending review of prior EKGs, obtain mag and supplement if needed, continue home regimen digoxin, propranolol, cardizem, xarelto regimen. (5) Diabetes mellitus type II: Continue home insulin regimen, ADA diet, accu checks w/ ISS. (6) Hypertension: Continue home regimen including propranolol, lisinopril, lasix, cardizem. PRN hydralazine. (7) Hyperlipidemia: Continue home statin regimen. (8) Anxiety and Depression: Continue home regimen buspar, wellbutrin. (9) Tobacco Abuse, History of: Encouraged continued cessation. (10) Morbid Obesity: Weight loss and lifestyle changes encouraged, nutrition consulted. (11) DVT prophylaxis: SCDs, xarelto. (12) CODE status: Discussed CODE status at length including difference between FULL code, DNR-CCA and DNR-CC status. Following discussions about the differences in these status, requested FULL CODE status. Discussed lung disease history and what intubation may possible entail to which she notes understanding. She is willing to try BIPAP but notes need for regimen for anxiety associated with the mask. Advanced Care Planning Face to Face Time: 20 minutes. Code Visit Inpatient E AND M: 28285 Init Hosp L3 Procedures: 14855 Advncd Care Plan 30 Min 02/16/17 1811 <Electronically signed by Jo Esposito > Date Jo Esposito Cosigner Signature: Date (if applicable) CC: Camden Burger; Jo Esposito; Rai Cardenas MD Signed BLOOD GASES BY [facility] Collected: 02/16/2017 Status: F Source: [place] 3:01 PM [facility] REPOSITORY TYPE CODE TESTS RESULT OUT OF RANGE REFERENCE UNITS LAB L9000.9990 Normal BLD GAS TYPE ART LAB L9001.1000 Normal SITE R Radial LAB L9001.1010 Normal VELMA TEST POS LAB L9001.1050 O2 Normal Delivery Dev Nasal Can LAB L9001.1055 /min Normal LPM 3.0 LAB L9001.1104 Normal Results To ED LAB L9001.1105 Normal Time Given 1453 LAB L9001.1110 7.35-7.45 High pH - I-STAT 7.46 LAB L9001.1210 35-45 mmHg Normal pCO2 - ISTAT 41.9 LAB L9001.1310 75-100 mmHG Low PO2 I-STAT 61 LAB L9001.2300 22-26 mmol/L High HCO3 ISTAT 29.4 LAB L9001.2400 -2 to +2 mmol/L High BE ISTAT 6 LAB L9001.2415 mmol/L Normal TOTAL CO2 31 ISTAT LAB L9001.2425 95-99 % Low SO2 ISTAT 92 Performed By: #### L9000.0800 #### [facility] Point of Care [address] [place] [address] Observed: 02/16/2017 Status: F Source: [place] CULTURE, BLOOD (WB) 2:55 PM [facility] REPOSITORY BC No growth in 5 days. Performed By: #### M200.1000 #### [facility] [address] [place], [place], [address] Observed: 02/16/2017 Status: F Source: [place] CULTURE, BLOOD (WB) 2:40 PM [facility] REPOSITORY BC No growth in 5 days. Performed By: #### M200.1000 #### [facility] [address] [place], [place], [address] Observed: 02/16/2017 Status: F Source: [place] INFLUENZA A+B (RAPID 2:30 PM [facility] PRIYANKA) REPOSITORY FLU A/B Rapid Negative test results should be confirmed by culture. Order Rapid Viral Culture for Influenzae A+B ([id number]) if clinically indicated. Influenza Ag, Direct Presumptive NEGATIVE for Influenza A/B Antigen (See Note) Performed By: #### M101.0101 #### [facility] [address] [place], [place], [address] Observed: 02/16/2017 Status: F Source: [place] RESPIRATORY PANEL 2:30 PM [facility] MOLECULAR REPOSITORY RP PANEL Normal Reference Range = Not Detected RESULTS CALLED TO MARGIE/JAMARCUS 02/17/17 5103 Elzbieta Garcia. Copy of report sent to Infection Control Printer MS#[id number] 02/17/17 8833 KAZ. ADENOVIRUS Not Detected HUMAN METAPHNEUMO Positive for HUMAN METAPHNEUMO VIRUS by NAAT technology INFLUENZA A Not Detected INFLUENZA A (SUBTYPE H1) Not Detected INFLUENZA A (SUBTYPE H3) Not Detected INFLUENZA B Not Detected PARAINFLUENZA 1 Not Detected PARAINFLUENZA 2 Not Detected PARAINFLUENZA 3 Not Detected PARAINFLUENZA 4 Not Detected RHINOVIRUS Not Detected RSV A Not Detected RSV B Not Detected NAAT METHOD Testing was performed using nucleic acid amplification ORGANISM 1: HUMAN META Performed By: #### M100.638 #### [facility] [address] [place], [address] BASIC METABOLIC Collected: 02/16/2017 Status: F Source: [place] PROFILE (BMP) 2:29 PM [facility] REPOSITORY Order Comment: REDRAW. PREVIOUS SPECIMEN REJECTED DUE TO HEMOLYSIS >4+. 02/16/17 1430 Stewart Gonzales. 'TROP' Serial specimen #1, #2, #3, or #4: 1 TYPE CODE TESTS RESULT OUT OF RANGE REFERENCE UNITS LAB L501.0100 70-110 mg/dL High GLU 210 Result Comment: Glucose result greater than or equal to 200 mg/dL suggests DIABETES MELLITUS per A.D.A. criteria. LAB L501.1000 7-18 mg/dL Normal BUN 14 LAB L501.1100 0.55-1.02 mg/dL Normal CREAT,SERUM 0.78 Result Comment: The validity of the calculated GFR AND GFRAA in patients over 70 years has not been determined. Clinical correlation is essential. LAB L501.1110 >60 mL/min Normal EST GFR 79 Result Comment: Non- GFR Calc LAB L501.1115 >60 mL/min Normal EST GFR - AA 96 Result Comment: GFR Calc LAB L501.1255 ml/min Normal Estimated CRCL 57.15 LAB L501.1300 10-20 RATIO Normal BUN/CRE 17.9 LAB L501.2200 8.5-10 mg/dL Normal .1 CA 8.5 LAB L501.5300 136-14 mmol/L Normal 5 NA 138 LAB L501.5600 3.5-5. mmol/L Normal 1 K 3.9 LAB L501.5900 98-107 mmol/L Normal CL 101 LAB L501.6100 21.0-3 mmol/L Normal 2.0 CO2 28.0 LAB L501.6200 5-15 Normal GAP 9 Performed By: #### L500.2500, L501.4010 #### [facility] [address] [place], [address] TROPONIN-I Collected: 02/16/2017 Status: F Source: [place] 2:29 PM [facility] REPOSITORY Order Comment: REDRAW. PREVIOUS SPECIMEN REJECTED DUE TO HEMOLYSIS >4+. 02/16/17 1430 [facility]. 'TROP' Serial specimen #1, #2, #3, or #4: 1 TYPE CODE TESTS RESULT OUT OF RANGE REFERENCE UNITS LAB L501.4010 <0.06 ng/mL Normal < 0.02 TROPONIN-I Result Comment: TROPONIN-I EXPECTED VALUES <0.05 NEGATIVE 0.06 - 0.59 AT RISK OF KS > OR = 0.60 SUGGEST KS Performed By: #### L500.2500, L501.4010 #### [facility] [address] [place], [address] EMERGENCY DEPARTMENT Observed: 02/16/2017 Status: F Source: [place] SUMMARY 2:19 PM [facility] REPOSITORY [facility] Medical Records Department [address] [place] [address] Emergency Department Summary 02/16/17 1417 MR#: [id number] Acct: [id number] Name: DARYA LARKIN Rep #: [id number] : 1955 61 From: Mitali Vogel PCP: Status: PRE ER - ER Visit Summary Date of Service: 02/16/17 Chief Complaint: [Shortness of breath] History of Present Illness: The patient is a 61 F [who presents the emergency department with shortness of breath. It has been going on for the last 2 or 3 days. She caught a cold with sore throat nasal congestion and cough. She has continuous worsening shortness of breath. She has a history of COPD diabetes coronary artery disease hypertension hyperlipidemia. She wears oxygen at home she is doing breathing treatments every 4 hours at home but is not helping. No fevers or chills.] Physical Examination: [] 95% on 5 L nasal cannula respiratory rate 22 other vitals within normal limits WN WD moderate distress obese PERRL EOMI MMM NECK supple and nontender, no masses Irregular rhythm with normal rate r no murmur rub or gallop, no peripheral edema, symmetric radial pulses Patient is in moderate respiratory distress speaking in short sentences she does have accessory muscle use she is diffusely wheezing with diminished breath sounds ABDOMEN is soft and nontender, normal bowel sounds, no distension, no rebound or guarding SKIN is warm and dry no rashes Alert and Oriented x3, CN II-XII in tact, no motor or sensory deficits, gait normal diffusely No lymphadenopathy Test Results: [] Emergency Department Course and Treatment: [] Treatment Plan: [] Disposition: [] Impression: [] This note was generated with Innoz dictation software. It may contain incorrect words, spelling, and punctuation that were not noted in review of the chart prior to signing ED Disposition - Plan for ED Patient: Chief Complaint: Shortness of Breath What to do if you have Problems For any increased pain, shortness of breath, bleeding, nausea or vomiting, chest pain, or any unexpected problems, contact your Primary Care Provider. Call [facility] ([phone]) or report to the closest Emergency Room. Call 911 if necessary. 02/16/17 1419 <Electronically signed by Mitali Vogel > Date Mitali Vogel Cosigner Signature (If Indicated): Date CC: Rai Cardenas MD CBC W/DIFF, AUTOMATED Collected: 02/16/2017 Status: F Source: [place] 2:17 PM [facility] REPOSITORY TYPE CODE TESTS RESULT OUT OF RANGE REFERENCE UNITS LAB L100.1000 4.4-11.0 K/mm3 High WBC 13.3 LAB L100.1200 4.2-5.4 M/mm3 Normal RBC 4.43 LAB L100.1300 12.0-15.0 g/dl Normal HGB 12.3 LAB L100.1400 37-47 % Normal HCT 38.6 LAB L100.1500 81-99 fL Normal MCV 87.1 LAB L100.1600 27.0-32.0 pg Normal MCH 27.8 LAB L100.1700 32-36 g/gl Low MCHC 31.9 LAB L100.1810 11.6-14.6 % High RDW CV 15.0 LAB L100.1820 35.1-43.9 fl High RDW SD 47.6 LAB L100.1900 150-450 K/mm3 Normal PLT 299 LAB L100.2000 6.2-12.0 fl Normal MPV 10.6 LAB L100.2100 47-70 % High NEUT% 70.3 LAB L100.2200 19-41 % Low LY% 18.8 LAB L100.2300 0-10 % Normal MONO% 8.7 LAB L100.2400 0-5 % Normal EO% 1.5 LAB L100.2500 0-1 % Normal BASO% 0.2 LAB L100.2550 0.0-0.9 % Normal IM GRAN % 0.500 Result Comment: IG% - Immature Granulocytes (promyelocytes, myelocytes and metamyelocytes) > 1% indicates that a LEFT SHIFT is Present. LAB L100.2620 2.0-7.7 X10 3/uL High Absolute Neut 9.4 LAB L100.2720 0.83-4.51 X10 3/ul Normal Absolute Lymph 2.51 Performed By: #### L100.0100 #### [facility] [address] [facility], [address] CHEST PA AND LATERAL Observed: 02/16/2017 Status: F Source: [place] 2:17 PM [facility] REPOSITORY [facility] Imaging Services [address] [place] [address] Chest PA and Lateral MR#: [id number] Acct: [id number] Name: DARYA LARKIN Rep #: [id number] : 1955 F 61 From: Rojelio Haskins MD PCP: Camden Burger Status: REG ER Study: Chest PA and Lateral Date of Exam: 02/16/17 Exam# [id number] Ordering Dr: Mitali Vogel STUDY: X-RAY CHEST REASON FOR EXAM: Female, 61 years old. Cough. TECHNIQUE: Frontal and lateral views of the chest. COMPARISON: 09/07/2016. FINDINGS: There is hyperinflation of the lungs consistent with chronic obstructive lung disease (COPD). No infiltrates. No effusions. There is no demonstrated pleural abnormality. Normal size heart. Normal mediastinum and sangeeta. There is prominence of the pulmonary hilar arteries without peripheral pulmonary vascular congestion, suggesting pulmonary hypertension. Normal visualized aortic arch and descending thoracic aorta. There are diffuse degenerative changes of the visualized thoracic spine. Normal visualized ribs, clavicles, and shoulders. There is no demonstrated abnormality of the visualized soft tissue structures of the upper abdomen. RAD/Chest PA and Lateral IMPRESSION: There are findings consistent with COPD. There is no evidence of acute chest disease. Electronically Signed: Rojelio Haskins MD at 16:39 EST , Service support , CC: Camden Burger; Mitali Vogel Eyeglass Inspector: Signed ALLERGIES ALLERGIES DATE TYPE / CODE NAME / CODE REACTION SEVERITY SOURCE Drug oxycodone Nausea Unknown [place] 8 Allergy/977595204( HCl/M692221706([facility]) NORM) Hospital Repository Drug Penicillins/F0010 Nausea/Vom/Di Unknown [place] Allergy/930686105( 07679(RXNORM) arrhea [facility] SNOMED CT) Hospital Repository Drug levofloxacin/F006 Nausea Unknown [place] Allergy/258000890( 659523(RXNORM) [facility] SNOMED CT) Hospital Repository Drug venom-honey Swelling Unknown [place] 8 Allergy/001568420( bee/N445651359([facility]) NORM) Hospital Repository DRUG/612613925(SNO OXYCODONE-ACETAMI Vomiting [address]) [facility] Repository Miscellaneous OTHER SWELLING [place] 0 Allergy/427652755( Clinic Other SNOMED CT) [place] Rep[facility] DRUG LEVOFLOXACIN [place] INGREDI/157164142( Clinic Other SNOMED CT) [place] Rep[facility] Drug PENICILLINS Vomiting [place] Class/741992068(SN Clinic Other OMED CT) [place] Repository NG/377581654(SNOME LEVOFLOXACIN [facility] D [facility]) [facility] Repository NG/809475312(SNOME PENICILLINS [facility]) [facility] System Repository NG/972492759(SNOME OXYCODONE-ACETAMI [facility]) [facility] Repository NG/127539482(SNOME OTHER [facility] CT) Health System Repository ENCOUNTERS ENCOUNTERS ADMIT/DISCHARGE ACCOUNT NUMBER ADMITTING ENCOUNTER LOCATION SOURCE CLASS 02/02/2018 [id number] [place], Inpatient [place] Encounter [facility] ding:PCURoom Repository : [id number]: 1 02/02/2018 [id number] [facility] Ambulatory BMSBuilding: [place] BMS.[facility] Repository 01/22/2018/01/23/20 [id number] Ambulatory BMSBuilding: [place] 18 BMS.[facility] Repository 01/14/2018/01/18/20 [id number] [place] Inpatient [place] 18 Encounter [facility] ding:PCURoom Repository : [id number]: 1 01/14/2018 [id number] [facility] [place] Ambulatory BMSBuilding: [place] BMS.CF.[facility] Repository 01/14/2018 [id number] All [place] Ambulatory BMSBuilding: [place] BMS.[facility] Repository 01/14/2018 [id number] [facility] [place] [facility] [place] [facility] 01/14/2018 [id number] [facility] [place] [facility] [place] [facility] 01/14/2018 [id number] All [place] Ambulatory BMSBuilding: [place] BMS.[facility] Repository 01/14/2018 [id number] All [place] Ambulatory BMSBuilding: [place] BMS.CF.[facility] Repository 01/14/2018 [id number] All [place] Ambulatory BMSBuilding: [place] BMS.[facility] Repository 01/14/2018 [id number] All [place] Ambulatory BMSBuilding: [place] BMS.[facility] Repository 12/26/2017 [id number] Ambulatory BMSBuilding: [place] [facility] Repository 12/25/2017/12/29/19 [id number] White, Jo Inpatient [place] [address] Encounter [facility] ding:PCURoom Repository : [id number]: 1 12/25/2017 [id number] White, Jo Ambulatory BMSBuilding: [place] BMS.[facility] Repository 12/25/2017 [id number] White, Jo Ambulatory BMSBuilding: [place] BMS.[facility] Repository 12/25/2017 [id number] White, Jo Ambulatory BMSBuilding: [place] BMS.[facility] Repository 12/25/2017 [id number] Ambulatory BMSBuilding: [place] BMS.[facility] Repository 12/23/2017/12/24/19 [id number] Emergency [address] ding:ED Repository 12/14/2017/12/15/19 [id number] Ambulatory BMSBuilding: [place] 18 BMS.[facility] Repository 11/20/2017 [id number] All [place] Ambulatory BMSBuilding: [place] BMS.[facility] Repository 11/20/2017/11/28/19 [id number] All [place] Inpatient [address] ding:HS9Ocvs Repository : [id number]: 1 11/20/2017 [id number] All [place] Ambulatory B[place]Building: [place] BMS.[facility] Repository 11/20/2017 [id number] All [place] Ambulatory BMSBuilding: [place] BMS.[facility] Repository 11/20/2017 [id number] All [place] Ambulatory BMSBuilding: [place] BMS.[facility] Repository 11/20/2017 [id number] All [place] Ambulatory BMSBuilding: [place] BMS.[facility] Repository 11/20/2017 [id number] All [place] Ambulatory BMSBuilding: [place] BMS.[facility] Repository 11/20/2017 [id number] All [place] Ambulatory BMSBuilding: [place] BMS.[facility] Repository 11/20/2017 [id number] All [place] Ambulatory BMSBuilding: [place] BMS.[facility] Repository 11/20/2017 [id number] All [place] Ambulatory BMSBuilding: [place] BMS.[facility] Repository 11/20/2017 [id number] All [place] Ambulatory BMSBuilding: [place] BMS.[facility] Repository 11/20/2017/11/21/19 [id number] Ambulatory BMSBuilding: [place] 18 BMS.[facility] Repository 11/18/2017 [id number] Ambulatory BMSBuilding: [place] BMS.[facility] Repository 11/02/2017/11/04/19 [id number] Agyepong, Ambulatory [address] ding:SA3Ipwz Repository : [id number]: 1 11/02/2017 [id number] Agyepong, Ambulatory BMSBuilding: [place] Z[place] BMS.[facility] Repository 11/02/2017 [id number] Agyepong, Ambulatory BMSBuilding: [place] BMS.[facility] Repository 10/26/2017/10/28/19 [id number] Ambulatory [address] Repository 10/26/2017/10/28/19 [id number] Ambulatory [address] Repository 10/26/2017 [id number] Ambulatory [facility] MEDICAL Repository CENTERBuildi ng:CAGWS 10/08/2017/10/09/19 [id number] Ambulatory BMSBuilding: [place] 18 BMS.[facility] Repository 09/29/2017 [id number] Ambulatory BMSBuilding: [place] BMS.[facility] Repository 09/22/2017 [id number] Ambulatory [facility] ding: Repository 09/21/2017 [id number] Ambulatory BMSBuilding: [place] BMS.[facility] Repository 09/07/2017/09/10/19 [id number] Maribel Chau Inpatient [place] [address] ding:PCURoom Repository : [id number]: 1 09/07/2017 [id number] Maribel, Chau Ambulatory BMSBuilding: [place] BMS.[facility] Repository 09/07/2017 [id number] Maribel, [facility] Ambulatory BMSBuilding: [place] BMS.[facility] Repository 09/07/2017 [id number] Maribel [facility] Ambulatory BMSBuilding: [place] BMS.[facility] Repository 09/07/2017 [id number] Maribel, [facility] Ambulatory BMSBuilding: [place] BMS.[facility] Repository 09/01/2017/09/02/19 [id number] Ambulatory BMSBuilding: [place] 18 BMS.[facility] Repository 08/21/2017/08/24/19 [id number] Sementi, Ambulatory [place] [address] ding:SK5Alqm Repository : PI679Spe: 1 08/21/2017 [id number] Sementi, Ambulatory BMSBuilding: [place] Avis BMS.[facility] Repository 08/21/2017/08/24/19 [id number] Ambulatory BMSBuilding: [place] 18 [facility] Repository 08/21/2017/08/24/19 [id number] Ambulatory BMSBuilding: [place] 18 [facility] Repository 08/18/2017 [id number] Ambulatory BMSBuilding: [place] BMS.[facility] Repository 08/10/2017/08/13/19 [id number] [place]den Burger [place] [address] Encounter [facility] ding:PCURoom Repository : [id number]: 1 08/10/2017 [id number] Camden Burger Ambulatory BMSBuilding: [place] BMS.[facility] Repository 08/10/2017 [id number] Camden Burger Ambulatory BMSBuilding: [place] BMS.[facility] Repository 08/10/2017/08/13/19 [id number] Ambulatory BMSBuilding: [place] 18 [facility] Repository 08/10/2017 [id number] Ambulatory BMSBuilding: [place] BMS.[facility] Repository 07/10/2017/07/13/19 [id number] Maribel, Chau Inpatient [address] ding:PCURoom Repository : [id number]: 1 07/10/2017 [id number] [facility], [facility] Ambulatory BMSBuilding: [place] BMS.[facility] Repository 07/10/2017 [id number] Maribel, [facility] Ambulatory BMSBuilding: [place] BMS.[facility] Repository 07/10/2017 [id number] Maribel, [facility] Ambulatory BMSBuilding: [place] [facility] 07/10/2017 [id number] Maribel, [facility] Ambulatory BMSBuilding: [place] BMS.[facility] Repository 07/08/2017 [id number] Ambulatory [facility] ding:MRI Repository 06/10/2017 [id number] Ambulatory [facility] ding:PSN Repository 06/10/2017 [id number] Ambulatory BMSBuilding: [facility] Repository 05/20/2017/05/21/19 [id number] Ambulatory BMSBuilding: [place] 18 BMS.[facility] Repository 05/20/2017 [id number] Ambulatory BMS [facility] Repository 05/13/2017/05/14/19 [id number] Sementi, Ambulatory [address] ding:PCURoom Repository : [id number]: 1 05/13/2017 [id number] Sementi, Ambulatory BMSBuilding: [place] Avis BMS.[facility] Repository 05/13/2017/05/14/19 [id number] Ambulatory BMSBuilding: [address] Repository 05/13/2017/05/14/19 [id number] Ambulatory BMSBuilding: [address] Repository 04/24/2017/04/25/19 [id number] Ambulatory [address] Repository 04/24/2017/04/25/19 [id number] Ambulatory [address] MEDICAL Repository CENTERBuildi ng:CAGWS 02/16/2017/02/20/19 [id number] Jo Esposito [place]patient [place] 18 Encounter [facility] ding:Frandy Repository : [id number]: 1 02/16/2017 [id number] Ambulatory BMSBuilding: [place] BMS.[facility] Repository 02/16/2017 [id number] Ambulatory BMSBuilding: [place] BMS.[facility] Repository 02/16/2017 [id number] Ambulatory BMSBuilding: [place] BMS.[facility] Repository 02/16/2017 [id number] Ambulatory BMSBuilding: [place] BMS.[facility] Repository 02/16/2017 [id number] Ambulatory BMSBuilding: [place] BMS.[facility] Repository 02/16/2017/02/20/19 [id number] Ambulatory BMSBuilding: [place] 18 [facility] Repository PAYERS PAYERS ENCOUNTER GUARANTOR PAYER SUBSCRIBER SOURCE 02/02/2018 DARYA A Primary DARYA A [place] MCHENRYGLENDORA [facility] [place] Number: [id number]. Joseph's Health [id number] Repository [place] [address]Ysn: (330) e Date:2018-01-29 () 02/02/2018 Secondary NOT GIVENUNK [place] Insurance:SELF PAY [facility] Number: Effective Repository Date:2018-01-29 02/02/2018 DARYA A Primary DARYA A [place] MCHENRYGLENDORA Insurance:MEDICAIDPo MCHENRYDOB: [facility] Number: [id number]-Presbyterian Hospital, [id number] Repository [place] [address]Xid: (330) e Date:2018-01-29 () 02/02/2018 Secondary NOT GIVENUNK [place] Insurance:SELF PAY [facility] Number: Effective Repository Date:2018-02-02 01/22/2018 DARYA A Primary DARYA A [place] MCHENRYGLENDORA Insurance:MEDICAIDMcLaren Bay RegionB: [facility] Number: [id number]-Presbyterian Hospital, [id number] Repository [place] [address]Ded: (330) e Date:2018-01-14 () 01/22/2018 Secondary NOT GIVENUNK [place] Insurance:SELF PAY [facility] Number: Effective Repository Date:2018-01-22 01/14/2018 DARYA A Primary DARYA A [place] MCHENRYGLENDORA Insurance:MEDICAIDMcLaren Bay RegionB: [facility] Number: [id number]-Presbyterian Hospital, [id number] Repository [place] [address]Blt: (330) e Date:2018-01-14 () 01/14/2018 Secondary NOT GIVENUNK [place] Insurance:SELF PAY [facility] Number: Effective Repository Date:2018-01-14 01/14/2018 DARYA A Primary DARYA A [place] MCHENRYGLENDORA Insurance:MEDICAIDPo [facility] Number: [id number]-Presbyterian Hospital, [id number] Repository [place] [address]Smz: (330) e Date:2018-01-14 () 01/14/2018 Secondary NOT GIVENUNK [place] Insurance:SELF PAY [facility] Number: Effective Repository Date:2018-01-14 01/14/2018 DARYA A Primary DARYA A [place] MCHENRYGLENDORA Insurance:MEDICAIDPo [facility]: [facility] Number: [id number]-Presbyterian Hospital, [id number] Repository [place] [address]Ccc: (330) e Date:2018-01-14 () 01/14/2018 Secondary NOT GIVENUNK [place] Insurance:SELF PAY [facility] Number: Effective Repository Date:2018-01-14 01/14/2018 DARYA A Primary DARAY A [place] MCHENRYGLENDORA Insurance:MEDICAIDPo MCHENRYDOB: [facility] Number: [id number]-Presbyterian Hospital, [id number] Repository [place] [address]Ofk: (330) e Date:2018-01-14 () 01/14/2018 Secondary NOT GIVENUNK [place] Insurance:SELF PAY [facility] Number: Effective Repository Date:2018-01-14 01/14/2018 DARYA A Primary DARYA A [place] MCHENRYGLENDORA Insurance:MEDICAIDPo MCHENRYDOB: [facility] Number: [id number]-Presbyterian Hospital, [id number] Repository [place] [address]Xwj: (330) e Date:2018-01-14 () 01/14/2018 Secondary NOT GIVENUNK [place] Insurance:SELF PAY [facility] Number: Effective Repository Date:2018-01-14 01/14/2018 DARYA A Primary DARYA A [place] MCHENRYGLENDORA Insurance:MEDICAIDPo MCHENRYDOB: [facility] Number: [id number]-Presbyterian Hospital, [id number] Repository [place] [address]Izp: (330) e Date:2018-01-14 () 01/14/2018 Secondary NOT GIVENUNK [place] Insurance:SELF PAY [facility] Number: Effective Repository Date:2018-01-14 01/14/2018 DARYA A Primary DARYA A [place] MCHENRYGLENDORA Insurance:MEDICAIDPo MCHENRYDOB: [facility] Number: [id number]-Presbyterian Hospital, [id number] Repository [place] [address]Fhi: (330) e Date:2018-01-14 () 01/14/2018 Secondary NOT GIVENUNK [place] Insurance:SELF PAY [facility] Number: Effective Repository Date:2018-01-14 01/14/2018 DARYA A Primary DARYA A [place] MCHENRYGLENDORA Insurance:MEDICAIDPo MCHENRYDOB: [facility] Number: [id number]-Presbyterian Hospital, [id number] Repository [place] [address]Cma: (330) e Date:2018-01-14 () 01/14/2018 Secondary NOT GIVENUNK [place] Insurance:SELF PAY [facility] Number: Effective Repository Date:2018-01-14 01/14/2018 DARYA A Primary DARYA A [place] MCHENRYGLENDORA Insurance:MEDICAIDPo MCHENRYDOB: [facility] Number: [id number]-Presbyterian Hospital, [id number] Repository [place] [address]Zgn: (330) e Date:2018-01-14 () 01/14/2018 Secondary NOT GIVENUNK [place] Insurance:SELF PAY [facility] Number: Effective Repository Date:2018-01-14 12/26/2017 DARYA A Primary DARYA A [place] MCHENRYGLENDORA Insurance:MEDICAIDPo MCHENRYDOB: [facility] Number: [id number]-Presbyterian Hospital, [id number] Repository [place] [address]Vxp: (330) e Date:2017-12-25 () 12/26/2017 Secondary NOT GIVENUNK [place] Insurance:SELF PAY [facility] Number: Effective Repository Date:2017-12-26 12/25/2017 DARYA A Primary DARYA A [place] MCHENRYGLENDORA Insurance:MEDICAIDPo MCHENRYDOB: [facility] Number: [id number]-Presbyterian Hospital, [id number] Repository [place] [address]Vhf: (330) e Date:2017-12-25 () 12/25/2017 Secondary NOT GIVENUNK [place] Insurance:SELF PAY [facility] Number: Effective Repository Date:2017-12-25 12/25/2017 DARYA A Primary DARYA A [place] MCHENRYGLENDORA Insurance:[facility]IDT[facility] Center [place]: [facility] Number: [id number]-Presbyterian Hospital, [id number] Repository [place] [address]Epv: (330) e Date:2017-12-25 () 12/25/2017 Secondary NOT GIVENUNK [place] Insurance:SELF PAY [facility] Number: Effective Repository Date:2017-12-25 12/25/2017 DARYA A Primary DARYA A [place] MCHENRYGLENDORA Insurance:MEDICAIDMcLaren Bay RegionB: [facility] Number: [id number]-Presbyterian Hospital, [id number] Repository [place] [address]Zss: (330) e Date:2017-12-25 () 12/25/2017 Secondary NOT GIVENUNK [place] Insurance:SELF PAY [facility] Number: Effective Repository Date:2017-12-25 12/25/2017 DARYA A Primary DARYA A [place] MCHENRYGLENDORA Insurance:[facility]ICAIDT[facility] Center [place]: [facility] Number: [id number]-Presbyterian Hospital, [id number] Repository [place] [address]Mxk: (330) e Date:2017-12-25 () 12/25/2017 Secondary NOT GIVENUNK [place] Insurance:SELF PAY [facility] Number: Effective Repository Date:2017-12-25 12/25/2017 DARYA A Primary DARYA A [place] MCHENRYGLENDORA Insurance:[facility]ICAIDT[facility] Medical Center [place]: [facility] Number: [id number]-Presbyterian Hospital, [id number] Repository [place] [address]Axn: (330) e Date:2017-12-25 () 12/25/2017 Secondary NOT GIVENUNK [place] Insurance:SELF PAY [facility] Number: Effective Repository Date:2017-12-25 12/23/2017 DARYA A Primary DARYA A [place] [id number] Insurance:MEDICAIDPo MCHENRYDOB: [facility] [address] Number: [id number] Hospital [address]Xwl: 330 [id number] Repository [phone] () e Date:2017-12-23 12/23/2017 Secondary NOT GIVENUNK [place] Insurance:SELF PAY [facility] Number: Effective Repository Date:2017-12-23 12/14/2017 DARYA A Primary DARYA A [place] [id number] Insurance:MEDICAIDPo MCHENRYDOB: Community [address] Number: [id number] Hospital [address]Llc: 330 [id number] Repository [phone] () e Date:2017-09-01 12/14/2017 Secondary NOT GIVENUNK [place] Insurance:SELF PAY [facility] Number: Effective Repository Date:2017-11-23 11/20/2017 DARYA A Primary DARYA A [place] [id number] Insurance:MEDICAIDPo MCHENRYDOB: Community [address] Number: [id number] Hospital [address]Pqv: 330 [id number] Repository [phone] () e Date:2017-11-20 11/20/2017 Secondary NOT GIVENUNK [place] Insurance:SELF PAY [facility] Number: Effective Repository Date:2017-11-20 11/20/2017 DARYA A Primary DARYA A [place] [id number] Insurance:MEDICAIDPo MCHENRYDOB: Community [address] [place] Number: [id number] Hospital [address]Cyw: 330 [id number] Repository [phone] () e Date:2017-11-20 11/20/2017 Secondary NOT GIVENUNK [place] Insurance:SELF PAY [facility] Number: Effective Repository Date:2017-11-20 11/20/2017 DARYA A Primary DARYA A [place] [id number] Insurance:MEDICAIDPo MCHENRYDOB: [facility] [address] [place] Number: [id number] Hospital [address]Lqr: 330 [id number] Repository [phone] () e Date:2017-11-20 11/20/2017 Secondary NOT GIVENUNK [place] Insurance:SELF PAY [facility] Number: Effective Repository Date:2017-11-20 11/20/2017 DARYA A Primary DARYA A [place] [id number] Insurance:MEDICAIDPo MCHENRYDOB: [facility] [address], [place] Number: [id number] Hospital [address]Adk: 330 [id number] Repository [phone] () e Date:2017-11-20 11/20/2017 Secondary NOT GIVENUNK [place] Insurance:SELF PAY [facility] Number: Effective Repository Date:2017-11-20 11/20/2017 DARYA A Primary DARYA A [place] [id number] Insurance:MEDICAIDPo MCHENRYDOB: [place] [address] Number: [id number] Hospital [address]Tic: 330 [id number] Repository [phone] () e Date:2017-11-20 11/20/2017 Secondary NOT GIVENUNK [place] Insurance:SELF PAY [facility] Number: Effective Repository Date:2017-11-20 11/20/2017 DARYA A Primary DARYA A [place] [id number] Insurance:MEDICAIDPo MCHENRYDOB: Community [address] [facility], [place] Number: [id number] Hospital [address]Use: 330 [id number] Repository [phone] () e Date:2017-11-20 11/20/2017 Secondary NOT GIVENUNK [place] Insurance:SELF PAY [facility] Number: Effective Repository Date:2017-11-20 11/20/2017 DARYA A Primary DARYA A [place] [id number] Insurance:MEDICAIDPo MCHENRYDOB: [place] [address] Number: [id number] Hospital [address]Zrn: 330 [id number] Repository [phone] () e Date:2017-11-20 11/20/2017 Secondary NOT GIVENUNK [place] Insurance:SELF PAY [facility] Number: Effective Repository Date:2017-11-20 11/20/2017 DARYA A Primary DARYA A [place] [id number] Insurance:MEDICAIDPo MCHENRYDOB: [facility] [address] Number: [id number] Hospital [address]Ump: 330 [id number] Repository [phone] () e Date:2017-11-20 11/20/2017 Secondary NOT GIVENUNK [place] Insurance:SELF PAY [facility] Number: Effective Repository Date:2017-11-20 11/20/2017 DARYA A Primary DARYA A [place] [id number] Insurance:MEDICAIDPo MCHENRYDOB: [facility] [address] Number: [id number] Hospital [address]Egp: 330 [id number] Repository [phone] () e Date:2017-11-20 11/20/2017 Secondary NOT GIVENUNK [place] Insurance:SELF PAY [facility] Number: Effective Repository Date:2017-11-20 11/20/2017 DARYA A Primary DARYA A [place] [id number] Insurance:MEDICAIDPo MCHENRYDOB: [facility] [address] Number: [id number] Hospital [address]Tex: 330 [id number] Repository [phone] () e Date:2017-11-20 11/20/2017 Secondary NOT GIVENUNK [place] Insurance:SELF PAY [facility] Number: Effective Repository Date:2017-11-20 11/20/2017 DARYA A Primary DARYA A [place] [id number] Insurance:MEDICAIDPo MCHENRYDOB: Community [address] Number: [id number] Hospital [address]Rlu: 330 [id number] Repository [phone] () e Date:2017-11-20 11/20/2017 Secondary NOT GIVENUNK [place] Insurance:SELF PAY [facility] Number: Effective Repository Date:2017-11-20 11/20/2017 DARYA A Primary DARYA A [place] [id number] Insurance:MEDICAIDPo MCHENRYDOB: [place] [address] Number: [id number] Hospital [address]Cnv: 330 [id number] Repository [phone] () e Date:2017-10-06 11/20/2017 Secondary NOT GIVENUNK [place] Insurance:SELF PAY [facility] Number: Effective Repository Date:2017-11-20 11/18/2017 DARYA A Primary DARYA A [place] [id number] Insurance:MEDICAIDPo MCHENRYDOB: Community [address] [place] Number: [id number] [place] [address]30691Tel: 330 [id number] Repository [phone] () e Date:2017-11-18 11/18/2017 Secondary NOT GIVENUNK [place] Insurance:SELF PAY [facility] Number: Effective Repository Date:2017-11-18 11/02/2017 DARYA A Primary DARYA A [place] [id number] Insurance:MEDICAIDPo MCHENRYDOB: Community [address] [place] Number: [id number] Hospital [address]Ijr: 330 [id number] Repository [phone] () e Date:2017-11-01 11/02/2017 Secondary NOT GIVENUNK [place] Insurance:SELF PAY [facility] Number: Effective Repository Date:2017-11-01 11/02/2017 DARYA A Primary DARYA A [place] [id number] Insurance:MEDICAIDPo MCHENRYDOB: Community [address] Number: [id number] Hospital [address]Atw: 330 [id number] Repository [phone] () e Date:2017-11-01 11/02/2017 Secondary NOT GIVENUNK [place] Insurance:SELF PAY [facility] Number: Effective Repository Date:2017-11-02 11/02/2017 DARYA A Primary DARYA A [place] [id number] Insurance:MEDICAIDPo MCHENRYDOB: Community [address] Number: [id number] Hospital [address]Dkv: 330 [id number] Repository [phone] () e Date:2017-11-01 11/02/2017 Secondary NOT GIVENUNK [place] Insurance:SELF PAY [facility] Number: Effective Repository Date:2017-11-02 10/26/2017 DARYA A Primary DARYA A [facility]: Insurance:[facility] MEDICAIDPolicy [id number] Repository [address] Number: [address], [place] [id number] [address]Jcu: (330) e Date: [phone] () 10/08/2017 DARYA A Primary DARYA A [place] [id number] Insurance:MEDICAIDPo MCHENRYDOB: Community [address] [place] Number: [id number] Hospital [address]Jsd: 234 [id number] Repository [phone] () e Date:2017-10-01 10/08/2017 Secondary NOT GIVENUNK [place] Insurance:SELF PAY [facility] Number: Effective Repository Date:2017-10-08 09/29/2017 DARYA A Primary DARYA A [place] [id number] Insurance:MEDICAIDPo MCHENRYDOB: Community [address] Number: [id number] Hospital [address]Pyf: 234 [id number] Repository [phone] () e Date:2017-09-09 09/29/2017 Secondary NOT GIVENUNK [place] Insurance:SELF PAY [facility] Number: Effective Repository Date:2017-09-21 09/22/2017 DARYA A Primary DARYA A [place] [id number] Insurance:MEDICAIDPo MCHENRYDOB: Community [address] Number: [id number] Hospital [address]Mra: ([facility]) [id number] Repository [phone] (HP) e Date:2017-05-20 09/22/2017 Secondary NOT GIVENUNK [place] Insurance:SELF PAY [facility] Number: Effective Repository Date:2017-05-20 09/21/2017 DARYA A Primary DARYA A [place] [id number] Insurance:MEDICAIDPo MCHENRYDOB: Community [address] Number: [id number] Hospital [address]Bxc: . (HP) [id number] Repository e Date:2017-09-21 09/21/2017 Secondary NOT GIVENUNK [place] Insurance:SELF PAY [facility] Number: Effective Repository Date:2017-09-21 09/07/2017 DARYA A Primary DARYA A [place] [id number] Insurance:MEDICAIDPo MCHENRYDOB: [facility] [address] Number: [id number] Hospital [address]Glg: . (HP) [id number] Repository e Date:2017-09-06 09/07/2017 Secondary NOT GIVENUNK [place] Insurance:SELF PAY [facility] Number: Effective Repository Date:2017-09-06 09/07/2017 DARYA A Primary DARYA A [place] [id number] Insurance:MEDICAIDPo MCHENRYDOB: Community [address] Number: [id number] Hospital [address]Lqu: . (HP) [id number] Repository e Date:2017-09-06 09/07/2017 Secondary NOT GIVENUNK [place] Insurance:SELF PAY [facility] Number: Effective Repository Date:2017-09-06 09/07/2017 DARYA A Primary DARYA A [place] [id number] Insurance:MEDICAIDPo MCHENRYDOB: [place] [address] Number: [id number] Hospital [address]Mbz: . () [id number] Repository e Date:2017-09-06 09/07/2017 Secondary NOT GIVENUNK [place] Insurance:SELF PAY [facility] Number: Effective Repository Date:2017-09-07 09/07/2017 DARYA A Primary DARYA A [place] [id number] Insurance:MEDICAIDPo MCHENRYDOB: Community [address] Number: [id number] Hospital [address]Zxx: . () [id number] Repository e Date:2017-09-06 09/07/2017 Secondary [place] GIVENUNK [place] Insurance:SELF PAY [facility] Number: Effective Repository Date:2017-09-07 09/07/2017 DARYA A Primary DARYA A [place] [id number] Insurance:MEDICAIDPo MCHENRYDOB: [place] [address] Number: [id number] Hospital [address]74[address]Wrq: . () [id number] Repository e Date:2017-09-06 09/07/2017 Secondary NOT GIVENUNK [place] Insurance:SELF PAY [facility] Number: Effective Repository Date:2017-09-07 09/01/2017 DARYA A Primary DARYA A [place] [id number] Insurance:MEDICAIDPo MCHENRYDOB: [place] [address] Number: [id number] Hospital 73467Tvr: . () [id number] Repository e Date:2017-05-20 09/01/2017 Secondary NOT GIVENUNK [place] Insurance:SELF PAY [facility] Number: Effective Repository Date:2017-08-25 08/21/2017 DARYA A Primary DARYA A [place] [id number] Insurance:MEDICAIDPo MCHENRYDOB: [place] [address] Number: [id number] [facility] 69595Huq: . () [id number] Repository e Date:2017-08-20 08/21/2017 Secondary NOT GIVENUNK [place] Insurance:SELF PAY [facility] Number: Effective Repository Date:2017-08-20 08/21/2017 DARYA A Primary DARYA A [place] [id number] Insurance:MEDICAIDPo MCHENRYDOB: [place] [address] Number: [id number] Hospital 16294Doy: . () [id number] Repository e Date:2017-08-20 08/21/2017 Secondary NOT GIVENUNK [place] Insurance:SELF PAY [facility] Number: Effective Repository Date:2017-08-21 08/21/2017 DARYA A Primary DARYA A [place] [id number] Insurance:MEDICAIDPo MCHENRYDOB: [place] [address] Number: [id number] Hospital 59[address]Mcf: . () [id number] Repository e Date:2017-08-20 08/21/2017 Secondary NOT GIVENUNK [place] Insurance:SELF PAY [facility] Number: Effective Repository Date:2017-08-21 08/21/2017 DARYA A Primary DARYA A [place] [id number] Insurance:MEDICAIDPo MCHENRYDOB: [place] [address] Number: [id number] Hospital 16746Sbq: . () [id number] Repository e Date:2017-08-20 08/21/2017 Secondary NOT GIVENUNK [place] Insurance:SELF PAY [facility] Number: Effective Repository Date:2017-08-21 08/18/2017 DARYA A Primary DARYA A [place] [id number] Insurance:MEDICAIDPo MCHENRYDOB: [place] [address] Number: [id number] Hospital 509[address]Ypp: . () [id number] Repository e Date:2017-08-18 08/18/2017 Secondary NOT GIVENUNK [place] Insurance:SELF PAY [facility] Number: Effective Repository Date:2017-08-18 08/10/2017 DARYA A Primary DARYA A [place] [id number] Insurance:MEDICAIDPo MCHENRYDOB: [place] [address] Number: [id number] Hospital 02226Zxf: . (HP) [id number] Repository e Date:2017-08-10 08/10/2017 Secondary NOT GIVENUNK [place] Insurance:SELF PAY [facility] Number: Effective Repository Date:2017-08-10 08/10/2017 DARYA A Primary DARYA A [place] [id number] Insurance:MEDICAIDPo MCHENRYDOB: [place] [address] Number: [id number] Hospital 02222Hpa: . (HP) [id number] Repository e Date:2017-08-10 08/10/2017 Secondary NOT GIVENUNK [place] Insurance:SELF PAY [facility] Number: Effective Repository Date:2017-08-10 08/10/2017 DARYA A Primary DARYA A [place] [id number] Insurance:MEDICAIDPo MCHENRYDOB: [place] [address] Number: [id number] Hospital 125[address]Dkp: . (HP) [id number] Repository e Date:2017-08-10 08/10/2017 Secondary NOT GIVENUNK [place] Insurance:SELF PAY [facility] Number: Effective Repository Date:2017-08-10 08/10/2017 DARYA A Primary DARYA A [place] [id number] Insurance:MEDICAIDPo MCHENRYDOB: [place] [address] Number: [id number] Hospital 92460Ohy: ([facility]) [id number] Repository [phone] (HP) e Date:2017-08-10 08/10/2017 Secondary NOT GIVENUNK [place] Insurance:SELF PAY [facility] Number: Effective Repository Date:2017-08-10 08/10/2017 DARYA A Primary DARYA A [place] [id number] Insurance:MEDICAIDPo MCHENRYDOB: [place] [address] Number: [id number] Hospital 71970Vqr: . (HP) [id number] Repository e Date:2017-08-10 08/10/2017 Secondary NOT GIVENUNK [place] Insurance:SELF PAY [facility] Number: Effective Repository Date:2017-08-10 07/10/2017 DARYA A Primary DARYA A [place] [id number] Insurance:MEDICAIDPo MCHENRYDOB: [place] [address] Number: [id number] Hospital 52199Oth: 330 [id number] Repository [phone] () e Date:2017-07-10 07/10/2017 Secondary NOT GIVENUNK [place] Insurance:SELF PAY [facility] Number: Effective Repository Date:2017-07-10 07/10/2017 DARYA A Primary DARYA A [place] [id number] Insurance:MEDICAIDPo MCHENRYDOB: [place] [address] Number: [id number] [id number]: 330 [id number] Repository [phone] () e Date:2017-07-10 07/10/2017 Secondary NOT GIVENUNK [place] Insurance:SELF PAY [facility] Number: Effective Repository Date:2017-07-10 07/10/2017 DARYA A Primary DARYA A [place] [id number] Insurance:MEDICAIDPo MCHENRYDOB: [place] [address] Number: [id number] Hospital 95692Cgo: 330 [id number] Repository [phone] () e Date:2017-07-10 07/10/2017 Secondary NOT GIVENUNK [place] Insurance:SELF PAY [facility] Number: Effective Repository Date:2017-07-10 07/10/2017 DARYA A Primary DARYA A [place] [id number] Insurance:MEDICAIDPo MCHENRYDOB: [place] [address] Number: [id number] Hospital 18659Tzb: 330 [id number] Repository [phone] () e Date:2017-07-10 07/10/2017 Secondary NOT GIVENUNK [place] Insurance:SELF PAY [facility] Number: Effective Repository Date:2017-07-10 07/10/2017 DARYA A Primary DARYA A [place] [id number] Insurance:MEDICAIDPo MCHENRYDOB: [place] [address] Number: [id number] Hospital 28[address]Dyw: 330 [id number] Repository [phone] () e Date:2017-07-10 07/10/2017 Secondary NOT GIVENUNK [place] Insurance:SELF PAY [facility] Number: Effective Repository Date:2017-07-10 07/08/2017 DARYA A Primary DARYA A [place] [id number] Insurance:MEDICAIDPo MCHENRYDOB: [place] [address] Number: [id number] Hospital 20403Ylz: 330 [id number] Repository [phone] () e Date:2017-06-26 07/08/2017 Secondary NOT GIVENUNK [place] Insurance:SELF PAY [facility] Number: Effective Repository Date:2017-06-26 06/10/2017 DARYA A Primary DARYA A [place] [id number] Insurance:MEDICAIDPo MCHENRYDOB: [place] [address] Number: [id number] Hospital [address]Hpe: 330 [id number] Repository [phone] () e Date:2017-05-20 06/10/2017 Secondary NOT GIVENUNK [place] Insurance:SELF PAY [facility] Number: Effective Repository Date:2017-05-20 06/10/2017 DARYA A Primary DARYA A [place] [id number] Insurance:MEDICAIDPo MCHENRYDOB: [place] [address] Number: [id number] Hospital 057[address]Oyd: 330 [id number] Repository [phone] () e Date:2017-05-20 06/10/2017 Secondary NOT GIVENUNK [place] Insurance:SELF PAY [facility] Number: Effective Repository Date:2017-06-10 05/20/2017 DARYA A Primary DARYA A [place] [id number] Insurance:MEDICAIDPo MCHENRYDOB: [place] [address] Number: [id number] Hospital 35127Cgr: 330 [id number] Repository [phone] () e Date:2017-03-27 05/20/2017 Secondary NOT GIVENUNK [place] Insurance:SELF PAY [facility] Number: Effective Repository Date:2017-05-15 05/20/2017 DARYA A Primary DARYA A [place] [id number] Insurance:MEDICAIDPo MCHENRYDOB: [place] [address] Number: [id number] Hospital 16372Fqp: 330 [id number] Repository [phone] () e Date:2017-05-20 05/20/2017 Secondary NOT GIVENUNK [place] Insurance:SELF PAY [facility] Number: Effective Repository Date:2017-05-20 05/13/2017 DARYA A Primary DARYA A [place] [id number] Insurance:MEDICAIDPo MCHENRYDOB: [place] [address] Number: [id number] Hospital 88204Gou: 330 [id number] Repository [phone] () e Date:2017-05-12 05/13/2017 Secondary NOT GIVENUNK [place] Insurance:SELF PAY [facility] Number: Effective Repository Date:2017-05-12 05/13/2017 DARYA A Primary DARYA A [place] [id number] Insurance:MEDICAIDPo MCHENRYDOB: [facility] [address] [facility] [place] Number: [id number] Hospital 90230Ieq: [id number] Repository [phone] e Date:2017-05-12 () 05/13/2017 Secondary NOT GIVENUNK [place] Insurance:SELF PAY [facility] Number: Effective Repository Date:2017-05-13 05/13/2017 DARYA A Primary DARYA A [place] [id number] Insurance:MEDICAIDPo MCHENRYDOB: [address] Number: [id number] Hospital 88359Jve: 330 [id number] Repository [phone] () e Date:2017-05-12 05/13/2017 Secondary NOT GIVENUNK [place] Insurance:SELF PAY [facility] Number: Effective Repository Date:2017-05-13 05/13/2017 DARYA A Primary DARYA A [place] [id number] Insurance:MEDICAIDPo [facility] [address] Number: [id number] [facility] 06974Cxo: 330 [id number] Repository [phone] () e Date:2017-05-12 05/13/2017 Secondary NOT GIVENUNK [place] Insurance:SELF PAY [facility] Number: Effective Repository Date:2017-05-13 04/24/2017 DARYA A Primary DARYA A [facility] MCHENRYDOB: Insurance:CARESOURCE [facility] [id number] Repository [address] Number: [place], [place] [id number] [address]Ndc: 330) Date: [phone] () 02/16/2017 Darya A Primary Darya A [place] [id number] Insurance:CARESOURCE Mc[facility] Number: [id number] [facility] [place] [id number] Repository [address]Rno: Date:2017-02-16 O [phone]ATTN: CLAIMS () [place] [address]WX: 02/16/2017 Secondary NOT GIVENUNK [place] Insurance:SELF PAY [facility] Number: Effective Repository Date:2017-02-16 02/16/2017 Darya A Primary Darya A [place] [id number] Insurance:CARESOURCE MchenryDOB: [place] [address] [place] Policy Number: [id number] [id number] Repository [address]Dhr: Date:2017-02-16P O [phone]~[phone]ATTN: CLAIMS () [place] [address]MI: 02/16/2017 Secondary NOT GIVENUNK [place] Insurance:SELF PAY [facility] Number: Effective Repository Date:2017-02-16 02/16/2017 Darya A Primary Darya A [place] [id number] Insurance:CARESOURCE MchenryDOB: [place] [address] [place] Policy Number: [id number], [place] [id number] Repository [address]Xfp: Date:2017-02-16P O [phone]~[phone]ATTN: CLAIMS () [place] [address]JT: 02/16/2017 Secondary NOT GIVENUNK [place] Insurance:SELF PAY [facility] Number: Effective Repository Date:2017-02-16 02/16/2017 Darya A Primary Darya A [place] [id number] Insurance:CARESOURCE MchenryDOB: [place] [address] [place] Policy Number: [id number], [place] [id number] Repository [address]Tzp: Date:2017-02-16P O [phone]ATTN: CLAIMS () [place] [address]XP: 02/16/2017 Secondary NOT GIVENUNK [place] Insurance:SELF PAY [facility] Number: Effective Repository Date:2017-02-16 02/16/2017 Darya A Primary Darya A [place] [id number] Insurance:CARESOURCE MchenryDOB: [place] [address] [place] Policy Number: [id number], [place] [id number] Repository [address]Yoi: Date:2017-02-16P O [phone]ATTN: CLAIMS (HP) [place] [address]UW: 02/16/2017 Secondary NOT GIVENUNK [place] Insurance:SELF PAY [facility] Number: Effective Repository Date:2017-02-16 02/16/2017 Darya A Primary Darya A [place] [id number] Insurance:CARESOURCE MchenryDOB: [place] [address] [place] Policy Number: [id number], [place] [id number] Repository [address]Opt: Date:2017-02-16P O [phone]~[phone]ATTN: CLAIMS () [place] [address]ZK: 02/16/2017 Secondary NOT GIVENUNK [place] Insurance:SELF PAY [facility] Number: Effective Repository Date:2017-02-16 02/16/2017 Darya A Primary Darya A [place] [id number] Insurance:CARESOURCE MchenryDOB: [place] [address] [place] Policy Number: [id number], [place] [id number] Repository [address]Ydj: Date:2017-02-16P O [phone]ATTN: CLAIMS (HP) [place] [address]LX: 02/16/2017 Secondary NOT GIVENUNK [place] Insurance:SELF PAY [facility] Number: Effective Repository Date:2017-02-16
== END 2018-01-17 13:57 | disposition intermediate care facility (04) | DRG 201 ==
LOC: ED 11:41 → PCU 17:08
PROVIDERS: Internal Medicine Cardiovascular Disease; Physician Assistant; Emergency Provider Emergency Medicine; Family Provider Family Medicine; PCP Family Medicine; Visit Provider Internal Medicine
DX: R00.1 Bradycardia, unspecified (principal); T46.0X5A Adverse effect of cardiac-stimulant glycosides and drugs of similar action, initial encounter; J44.1 Chronic obstructive pulmonary disease with (acute) exacerbation; I25.10 Atherosclerotic heart disease of native coronary artery without angina pectoris; I48.2 Chronic atrial fibrillation; G47.33 Obstructive sleep apnea (adult) (pediatric); E11.9 Type 2 diabetes mellitus without complications; K21.9 Gastro-esophageal reflux disease without esophagitis; E78.5 Hyperlipidemia, unspecified; F17.210 Nicotine dependence, cigarettes, uncomplicated; E87.6 Hypokalemia; R41.89 Other symptoms and signs involving cognitive functions and awareness; G93.41 Metabolic encephalopathy; J96.11 Chronic respiratory failure with hypoxia; G89.29 Other chronic pain; R10.9 Unspecified abdominal pain; F41.9 Anxiety disorder, unspecified; Z99.81 Dependence on supplemental oxygen; Z79.4 Long term (current) use of insulin; I10 Essential (primary) hypertension
CPT/HCPCS: 36415; 36600; 71045; 71275; 76705; 78227; 80048; 80053; 80162; 81001; 82803; 82962; 83605; 83690; 83735; 83880; 84484; 85025; 85610; 85730; 87040; 87086; 93005; 93306; 94640; 97162; 97166; 97802; 99285; 99406; A9537; J7030; J7040; Q9957; Q9967; A4216; C8929; J0696

== ENCOUNTER 2018-02-02 17:26 | Observation (INO) | payer MEDICAID, SELFPAY ==
[2018-01-22 13:05] VITALS: BMI 36.0
[2018-02-02] VITALS (8 sets, daily range): BP systolic 103–116; BP diastolic 50–65; PULSE 92–127; RESP 16–18; TEMP 36.2–36.9; O2SAT 90–95; BMI 85.8
--- NOTE | 2018-02-02 12:33 | EKG12_ITS ---
Test Reason : POST OP Blood Pressure : / mmHG Vent. Rate : 103 BPM Atrial Rate : 093 BPM P-R Int : 000 ms QRS Dur : 100 ms QT Int : 358 ms P-R-T Axes : 000 088 -57 degrees QTc Int : [address] & T wave abnormality, consider inferior ischemia Abnormal ECG When compared with ECG of 02-FEB-2018 12:56, MANUAL COMPARISON REQUIRED, DATA IS UNCONFIRMED Confirmed by ELSY DELGADO, LUCILA ([id number]), editorial director DIANA GALVEZ ([id number] on 02/05/2018 2:26:26 PM Referred By: Jose Manuel Leigh Confirmed By:LUCILA CHIN MD
[2018-02-02 13:14] LABS: Hematocrit 43.6 % (37-47); Hemoglobin 13.3 g/dl (12.0-15.0); Mean Corp Hgb Conc 30.5 g/gl (32-36); Mean Corpuscular Hgb 26.7 pg (27.0-32.0); Mean Corpuscular Volume 87.6 fL (81-99); Mean Platelet Vol. 11.5 fl (6.2-12.0); Platelet Count 210 K/mm3 (150-450); RBC Distribution Width CV 18.3 % (11.6-14.6); RBC Distribution Width SD 59.1 fl (35.1-43.9); Red Blood Count 4.98 M/mm3 (4.2-5.4); White Blood Count 8.7 K/mm3 (4.4-11.0)
[2018-02-02 13:15] LABS: Bedside Glucose 59 mg/dL (70-110)
[2018-02-02 13:15] LABS: Scan Indicated on CBC? Y/N YES- FLAGS NOTED
[2018-02-02 13:26] LABS: Differential Comment SCANNED
[2018-02-02 13:32] LABS: Hemoglobin A1c 8.3 % (4.2-6.3)
[2018-02-02 13:55] LABS: Anion Gap 12 (5-15); BUN 16 mg/dL (7-18); Chloride 100 mmol/L (98-107); Creatinine, Serum 0.76 mg/dL (0.55-1.02); EST Glomerular Filtration Rate 81 mL/min (>60); Est Glom Filt Rate - Afr Amer 99 mL/min (>60); Estimated Creatinine Clearance 57.92 ml/min; Glucose 62 mg/dL (74-106); Potassium 3.3 mmol/L (3.5-5.1); Sodium Level 139 mmol/L (136-145)
[2018-02-02] MEDS: Propranolol 10 MG Tablet PO ×2 (14:00→14:45)
[2018-02-02 14:41] LABS: Bedside Glucose 135 mg/dL (70-110)
[2018-02-02] MEDS: Dextrose 5%-Lactated Ringers 1,000 ML 100 ML IV (15:03)
--- NOTE | 2018-02-02 17:22 | PCM.HP.STD ---
Problem List (1) Cholecystitis Status: Acute (2) ABDULLAHI (obstructive sleep apnea) Status: Chronic (3) Anemia Status: Chronic Comment: Normocytic (4) HTN (hypertension) Status: Chronic Qualifiers: (5) Morbid obesity with BMI of 40.0-44.9, adult Status: Chronic (6) COPD (chronic obstructive pulmonary disease) Status: Chronic Qualifiers: (7) Chronic pain Status: Chronic Qualifiers: (8) Chronic atrial fibrillation Status: Chronic (9) Chronic hypoxemic respiratory failure Status: Chronic Comment: non-compliant with oxygen (10) Hyperlipemia Status: Chronic Qualifiers: (11) Type 2 diabetes mellitus Status: Chronic Qualifiers: Comment: uncontrolled (12) GERD (gastroesophageal reflux disease) Status: Chronic Qualifiers: (13) Anxiety Status: Chronic History of Present Illness Date of Admission: 02/02/18 Chief Complaint: RUQ pain The patient is a 62 year old F with past medical history of chronic hypoxic respiratory failure, chronic abdominal pain, atrial fibrillation, chronic, type 2 diabetes, hypertension, GERD, CAD, systolic congestive heart failure and cardiomyopathy, obstructive sleep apnea, cognitive and behavioral issues, unspecified who was recently in the hospital with chronic atrial fibrillation with bradycardia induced by digoxin, who presented to the hospital for elective gallbladder removal for chronic abdominal pain. In preop she had tachycardia with a rate in the 120s and low blood sugar at 59 and her surgery was canceled. She was given additional propranolol and d5 and these improved. She was sent to PCU for monitoring overnight and will have surgery in the AM. She is currently resting in bed no mild RUQ pain at rest, no SOB, no palpitation, no nausea. Last BM was today - normal. No fever or chills. [] Past Medical History Past Medical History (Chronic Problems): Chronic Problems (Last Reviewed 01/22/18 @ 13:02 by Shanel Ceballos) Abdominal pain (Chronic) ABDULLAHI (obstructive sleep apnea) (Chronic) Tobacco dependence due to cigarettes (Chronic) Non-compliance (Chronic) Hypersomnia (Chronic) Anemia (Chronic) Normocytic HTN (hypertension) (Chronic) Morbid obesity with BMI of 40.0-44.9, adult (Chronic) COPD (chronic obstructive pulmonary disease) (Chronic) Chronic pain (Chronic) Chronic atrial fibrillation (Chronic) Chronic hypoxemic respiratory failure (Chronic) non-compliant with oxygen Hyperlipemia (Chronic) Type 2 diabetes mellitus (Chronic) uncontrolled GERD (gastroesophageal reflux disease) (Chronic) Anxiety (Chronic) Insomnia (Chronic) Medical History: Medical History (Last Reviewed 01/22/18 @ 13:02 by Shanel Ceballos) Hypersomnia (Chronic) G47.10 Anemia (Chronic) D64.9 Normocytic HTN (hypertension) (Chronic) I10 Morbid obesity with BMI of 40.0-44.9, adult (Chronic) E66.01, Z68.41 COPD (chronic obstructive pulmonary disease) (Acute) J44.9 Chronic pain (Chronic) G89.29 Chronic atrial fibrillation (Chronic) I48.2 Chronic hypoxemic respiratory failure (Chronic) J96.11 non-compliant with oxygen Hyperlipemia (Chronic) E78.5 Type 2 diabetes mellitus (Chronic) E11.9 uncontrolled GERD (gastroesophageal reflux disease) (Chronic) K21.9 Anxiety (Chronic) F41.9 Insomnia (Chronic) G47.00 Osteoporosis M81.0 Cardiomyopathy (Ruled-out) I42.9 EF in Oct 2015 45-50 Left ankle pain (Inactive) M25.572 Non-compliance (Inactive) Z91.19 withn follow up with pulmonary Allergies venom-honey bee [bee venom (honey bee)] Allergy (Verified 02/01/18 13:17) Swelling levofloxacin [From Levaquin] Adverse Reaction (Verified 02/01/18 13:17) Nausea oxycodone HCl [From Percocet] Adverse Reaction (Verified 02/01/18 13:17) Nausea Penicillins Adverse Reaction (Verified 02/01/18 13:17) Nausea/Vom/Diarrhea Home Medications: Ambulatory Orders Medication Instructions Recorded Albuterol Aerosols [Ventolin 2.5 mg INHALATION 4X/DAY 05/12/17 Aerosols] Atorvastatin Calcium [Lipitor] 40 mg PO QHS 05/12/17 Budesonide/Formoterol 160/4.5 2 puff INHALATION BID 05/12/17 [Symbicort 160/4.5 Mcg Inhaler (SP)] Bupropion HCl [Bupropion HCl Sr] 150 mg PO BID 05/12/17 Buspirone HCl 10 mg PO TID 05/12/17 Glucagon,Human Recombinant 1 mg IM PRN PRN 05/12/17 [Glucagon Emergency Kit] Ipratropium/Albuterol Sulfate 3 ml INHALATION Q6H PRN 05/12/17 [Duoneb] Propranolol HCl [Inderal (Beta 10 mg PO BID 05/12/17 Rubén)] Sennosides/Docusate Sodium 2 tab PO DAILY PRN PRN 05/12/17 [Senna-Docusate Sodium Tablet] Mag Hydrox/Al Hydrox/Simeth 30 ml PO Q6H PRN PRN 08/11/17 [Mylanta II] docusate sodium 100 mg capsule 100 mg PO QHS 09/01/17 Rivaroxaban [Xarelto] 20 mg PO DAILY #0 11/03/17 Calcium Carbonate [Tums] 500 mg PO Q6H PRN PRN 11/20/17 Insulin Lispro [Humalog KwikPen] See Protocol SUBCUT 4X/DAYCM 11/24/17 insuln.pen Benzonatate [Tessalon Perle] 100 mg PO TID PRN PRN 12/23/17 Bisacodyl [Dulcolax] 10 mg RECTAL QHS PRN 12/23/17 Duloxetine HCl 60 mg PO DAILY 12/23/17 Furosemide [Lasix] 40 mg PO BIDLX 12/23/17 Gabapentin [Neurontin] 100 mg PO TIDCM 12/23/17 Guaifenesin [Mucinex] 1,200 mg PO BID PRN 12/23/17 Loperamide [Imodium] 2 mg PO PRN PRN 12/23/17 Polyethylene Glycol 3350 [Miralax] 17 gm PO DAILY 12/23/17 Acetaminophen 650 mg PO PRN PRN 12/25/17 Insulin Glargine,Hum.rec.anlog 20 unit SQ QHS 12/25/17 [Basaglar Kwikpen U-100] Ondansetron HCl [Zofran] 4 mg PO Q6H PRN PRN 12/25/17 Lactobacillus Acidophilus 1 cap PO DAILY 01/14/18 [Acidophilus] Lactose-Reduced Food [Boost Breeze] 237 ml PO TID 01/14/18 Pantoprazole Sodium [Protonix] 40 mg PO DAILY #0 tab 01/17/18 Albuterol Aerosols [Ventolin 2.5 mg INHALATION Q6HWA.RT PRN 02/01/18 Aerosols] Hydrocodone Bitart/Apap 5-325 1 tablet PO Q6H PRN PRN 12/17/18 [[place] 5MG-325MG] Surgical History: Surgical History (Last Reviewed 01/22/18 @ 13:02 by Shanel Ceballos) Cataract extraction status Z98.49 History of lumbar surgery Z98.890 History of tonsillectomy and adenoidectomy Z98.890 History of total hysterectomy Z90.710 Surgical History: hysterectomy, tonsillectomy, - - Lumbar surgery. 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 Sibling Family History: Family History (Last Reviewed 01/22/18 @ 13:02 by Shanel Ceballos) Sister Arthritis Diabetes Father Cancer Aunt Diabetes History Items: Asthma, COPD, Hypertension Review of Systems Constitutional: Denies: Chills, Fever, Weight Change HEENT: Denies: Head Aches, Sinus Congestion, Sinus Drainage Cardiovascular: Denies: Chest Pain, Palpitations Respiratory: Denies: Cough, Shortness of breath at rest, Sputum production Gastrointestinal: Reports: Abdominal Pain. Denies: Nausea, Vomiting Genitourinary: Denies: Dysuria Musculoskeletal: Denies: Joint Pain, Joint Tenderness Skin: Denies: Rash, Wounds Neurological: Denies: Numbness, Tingling, Focal weakness Psychiatric: Denies: Anxiety, Depression, Homicidal Ideations, Suicidal Ideations Hematologic/ Lymphatic: Denies: Easy Bruising, Easy Bleeding VTE Information - Inpt Only VTE Present on Admission: No VTE Mechan Device Prophylaxis: SCD's VTE Pharm Prophylaxis ordered?: No Patient Problems: Active and Suspected Problems (Last Reviewed 01/22/18 @ 13:02 by Shanel Ceballos) Cholecystitis (Acute) - Physical Exam General: Alert, Oriented x3, Cooperative HEENT: Atraumatic, PERRLA, EOMI, Normocephalic Neck: Supple, No JVD, Negative Carotid Bruits Lungs: Clear to auscultation, Normal air movement Cardiovascular: Regular rate, No murmurs Abdomen: Bowel Sounds Present, Soft, Guarding, Tender - Right upper quadrant tenderness Extremities: No edema, Capillary Refill Less than 3 Seconds Skin: No rashes, No breakdown Musculoskeletal: No Tenderness to Palpation of Joints or Extremities Neurological: Cranial nerves II-XII grossly intact Psych/Mental Status: Normal Affect, Appropriate, Alert and oriented to time, place, person, mood and affect Vital Signs Temp Pulse Resp BP Pulse Ox 98.4 F 127 H 18 103/65 90 02/02/18 12:50 02/02/18 12:50 02/02/18 12:50 02/02/18 12:50 02/02/18 12:50 Oxygen Delivery Method Room Air Weight: 454 lb 2.436 oz Body Mass Index (BMI) 85.8 Finger Stick Blood Glucose 364 Laboratory Tests Past 24 Hrs 02/02/18 02/02/18 02/02/18 12:34 12:34 12:34 WBC 8.7 RBC 4.98 Hgb 13.3 Hct 43.6 MCV 87.6 MCH 26.7 L MCHC 30.5 L RDW 18.3 H RDW Differential 59.1 H Plt Count 210 MPV 11.5 Differential Comment SCANNED Sodium 139 Potassium 3.3 L Chloride 100 Carbon Dioxide 27.0 Anion Gap 12 BUN 16 Creatinine 0.76 Estim Creat Clear Calc 57.92 Est GFR (MDRD) Af Amer 99 Est GFR (MDRD) Non-Af 81 BUN/Creatinine Ratio 21.0 H Glucose 62 L Hemoglobin A1c 8.3 H Calcium 9.0 POC Glucose 02/02/18 02/02/18 14:36 12:48 POC Glucose 135 H 59 L Assessment/Plan All Active Problems (Last Reviewed 01/22/18 @ 13:02 by Shanel Ceballos) Bradycardia (Acute) Digoxin toxicity (Acute) Cholecystitis (Acute) Acute encephalopathy (Acute) Acute kidney injury (Acute) HCAP (healthcare-associated pneumonia) (Acute) Acute and chronic respiratory failure with hypoxia (Resolved) Acute bronchitis due to human metapneumovirus (Resolved) Atrial fibrillation with RVR (Resolved) COPD with acute exacerbation (Resolved) Gram-negative pneumonia (Resolved) Syncope (Resolved) Cardiomyopathy (Ruled-out) 1. AFib with RVR - monitor overnight. Increase propranolol to 20 BID. RVR resolved. Recently dig discontinued for dig toxicity and bradycardia. Hold xarelto. 2. Hypoglycemia - resolved. Maintain d5 ringers. Clears. NPO after midnight for surgery. 3. DMt2 - SSI only given #2. 4. Chronic RUQ pain - elective Kaye per Dr. Leigh - tomorrow. 5. COPD with chronic hypoxic respiratory failure - no exacerbation - prn aerosols. IS post op. 6. GERD - PPI 7. CAD, hx systolic HF, CM - home meds 8. Anxiety/Behavioral and cognitive issues - home meds. DVT ppx: SCDs This patient was seen by Brian Hinojosa PA-C under the supervision of Doctor White.
[2018-02-02] MEDS: Albuterol 2.5 MG/3 ML VIAL.NEB. INHALATION (19:50)
[2018-02-02] MEDS: Budesonide Respules 0.5 MG/2 ML AMPUL.NEB. INHALATION (20:00)
[2018-02-02] MEDS: Heparin Injection (Vial) 5,000 UNIT/ML VIAL 5000 UNIT SC (22:01)
[2018-02-02] MEDS: busPIRone 5 MG Tablet 10 MG PO (22:01)
[2018-02-02] MEDS: Propranolol 10 MG Tablet 20 MG PO (22:02)
[2018-02-02] MEDS: buPROPion (SR) 150 MG Tablet.SA PO (22:02)
[2018-02-02 23:56] LABS: Bedside Glucose 119 mg/dL (70-110)
[2018-02-03] VITALS (31 sets, daily range): BP systolic 91–141; BP diastolic 33–96; PULSE 79–122; RESP 14–22; TEMP 36.1–36.8; O2SAT 91–98; BMI 35.6; BMI 85.8
[2018-02-03] MEDS: Dextrose 5%-Lactated Ringers 1,000 ML 100 ML IV ×3 (01:02→18:49)
[2018-02-03] MEDS: Menthol/Lanolin/Calamine/Znox 113 GM Tube 1 APPLIC TOPICAL (03:30)
[2018-02-03] MEDS: busPIRone 5 MG Tablet 10 MG PO (05:41)
[2018-02-03 05:56] LABS: Absolute Lymphocyte Count 3.13 X10^3/ul (0.83-4.51); Absolute Neutrophil Count 4.3 X10^3/uL (2.0-7.7); Basophil# 0.05 X10^3/uL; Basophil% 0.6 % (0-1); Eosinophil# 0.25 X10^3/uL; Hematocrit 36.4 % (37-47); Hemoglobin 11.3 g/dl (12.0-15.0); Lymphocyte # 3.13 X10^3/ul (4.0); Lymphocyte % 37.4 % (19-41); Mean Corpuscular Hgb 27.4 pg (27.0-32.0); Mean Corpuscular Volume 88.1 fL (81-99); Mean Platelet Vol. 12.4 fl (6.2-12.0); Monocyte# 0.64 X10^3/uL; Monocyte% 7.6 % (0-10); Neutrophil # 4.29 X10^3/uL (2.7-7.7); Neutrophil % 51.2 % (47-70); Platelet Count 254 K/mm3 (150-450); RBC Distribution Width CV 18.1 % (11.6-14.6); RBC Distribution Width SD 58.1 fl (35.1-43.9); Red Blood Count 4.13 M/mm3 (4.2-5.4); White Blood Count 8.4 K/mm3 (4.4-11.0)
[2018-02-03 06:00] LABS: POSITIVE COUNT NO; POSITIVE DIFFERENTIAL NO; POSITIVE MORPHOLOGY NO
[2018-02-03 06:03] LABS: International Normalized Ratio 1.1; Prothrombin Time (Protime)PT. 14.3 SECONDS (11.7-14.9)
[2018-02-03 06:04] LABS: Partial Thromboplast Time 34.4 Seconds (24.1-36.2)
[2018-02-03 06:13] LABS: Anion Gap 7 (5-15); BUN 10 mg/dL (7-18); BUN/Creat Ratio 14.7 RATIO (10-20); Calcium,Total 8.7 mg/dL (8.5-10.1); Chloride 100 mmol/L (98-107); Creatinine, Serum 0.68 mg/dL (0.55-1.02); EST Glomerular Filtration Rate 93 mL/min (>60); Est Glom Filt Rate - Afr Amer 113 mL/min (>60); Estimated Creatinine Clearance 64.73 ml/min; Glucose 113 mg/dL (74-106); Sodium Level 140 mmol/L (136-145)
[2018-02-03 06:37] LABS: Magnesium 1.9 mg/dL (1.6-2.6)
[2018-02-03 07:01] LABS: Bedside Glucose 121 mg/dL (70-110)
[2018-02-03] MEDS: Budesonide Respules 0.5 MG/2 ML AMPUL.NEB. INHALATION ×2 (07:07→19:16)
[2018-02-03] MEDS: Albuterol 2.5 MG/3 ML VIAL.NEB. INHALATION ×3 (07:08→19:16)
[2018-02-03] MEDS: Propranolol 10 MG Tablet 20 MG PO (09:08)
[2018-02-03 12:21] LABS: Bedside Glucose 119 mg/dL (70-110)
--- NOTE | 2018-02-03 12:23 | PCM.PN.BLA ---
Progress Note The patient's surgery was canceled yesterday due to tachycardia and possible ST changes. Dr. Lilly reviewed the EKG and thinks this is due to the tachycardia. The patient was admitted and given beta-blockade. This morning the patient's pulse was normal but the patient's blood pressure was low. The patient was given 1 L bolus of normal saline and the potassium was replaced. If the patient's vitals stabilized by this afternoon I will take her for cholecystectomy this afternoon. Jose Manuel Leigh MD Pager: [facility] [address] [place] [address], [address] [place] [address] Office:
--- NOTE | 2018-02-03 14:07 | PN_ITS ---
<Brian Hinojosa - Last Filed: 02/03/18 14:05> Patient Problems: Active and Suspected Problems (Last Reviewed 01/22/18 @ 13:02 by Shanel Ceballos) Cholecystitis (Acute) Subjective: C/o RUQ pain. No fever/chills. No SOB/cough. No inc. wheezing. No inc. LE edema. No CP, dizziness, LH. - Physical Exam General: Alert, Oriented x3, Cooperative HEENT: Atraumatic, PERRLA, EOMI, Normocephalic Neck: Supple, No JVD, Negative Carotid Bruits Lungs: Clear to auscultation, Normal air movement Cardiovascular: Regular rate, No murmurs Abdomen: Bowel Sounds Present, Soft, Obese, Tender - RUQ Extremities: No edema, Capillary Refill Less than 3 Seconds Skin: No rashes, No breakdown Musculoskeletal: No Tenderness to Palpation of Joints or Extremities Neurological: Cranial nerves II-XII grossly intact Psych/Mental Status: Normal Affect, Appropriate Vital Signs Temp Pulse Resp BP Pulse Ox 98.3 F 87 18 104/62 95 02/03/18 13:30 02/03/18 13:30 02/03/18 13:30 02/03/18 13:30 02/03/18 13:30 Oxygen Flow Rate (L/min) 3 Oxygen Delivery Method Nasal Cannula Weight: 188 lb 14.978 oz Body Mass Index (BMI) 35.6 Finger Stick Blood Glucose 364 Intake and Output for Last 24 Hours 02/01/18 02/02/18 02/03/18 23:59 23:59 23:59 Intake Total 1503 / 1503 2168 / 2168 Output Total 200 / 200 Balance 1303 / 1303 2168 / 2168 Laboratory Tests Past 24 Hrs 02/03/18 02/03/18 02/03/18 05:10 05:10 05:10 WBC 8.4 RBC 4.13 L Hgb 11.3 L Hct 36.4 L MCV 88.1 MCH 27.4 MCHC 31.0 L RDW 18.1 H RDW Differential 58.1 H Plt Count 254 MPV 12.4 H Immature Gran % (Auto) 0.200 Neut % (Auto) 51.2 Lymph % (Auto) 37.4 [place] % (Auto) 7.6 Eos % (Auto) 3.0 Baso % (Auto) 0.6 Absolute Neuts (auto) 4.3 Absolute Lymphs (auto) 3.13 Total Counted Not Reportable PT 14.3 INR 1.1 APTT 34.4 Sodium 140 Potassium 3.0 L Chloride 100 Carbon Dioxide 33.0 H Anion Gap 7 BUN 10 Creatinine 0.68 Estim Creat Clear Calc 64.73 Est GFR (MDRD) Af Amer 113 Est GFR (MDRD) Non-Af 93 BUN/Creatinine Ratio 14.7 Glucose 113 H Calcium 8.7 Magnesium 02/03/18 05:10 WBC RBC Hgb Hct MCV MCH MCHC RDW RDW Differential Plt Count MPV Immature Gran % (Auto) Neut % (Auto) Lymph % (Auto) [place] % (Auto) Eos % (Auto) Baso % (Auto) Absolute Neuts (auto) Absolute Lymphs (auto) Total Counted PT INR APTT Sodium Potassium Chloride Carbon Dioxide Anion Gap BUN Creatinine Estim Creat Clear Calc Est GFR (MDRD) Af Amer Est GFR (MDRD) Non-Af BUN/Creatinine Ratio Glucose Calcium Magnesium 1.9 POC Glucose 02/03/18 02/03/18 02/02/18 11:51 05:44 23:51 POC Glucose 119 H 121 H 119 H 02/02/18 14:36 POC Glucose 135 H Medical Necessity - Tobacco Use Smoking Status: Current every day smoker Assessment/Plan All Active Problems (Last Reviewed 01/22/18 @ 13:02 by Shanel Ceballos) Bradycardia (Acute) Digoxin toxicity (Acute) Cholecystitis (Acute) Acute encephalopathy (Acute) Acute kidney injury (Acute) HCAP (healthcare-associated pneumonia) (Acute) Acute and chronic respiratory failure with hypoxia (Resolved) Acute bronchitis due to human metapneumovirus (Resolved) Atrial fibrillation with RVR (Resolved) COPD with acute exacerbation (Resolved) Gram-negative pneumonia (Resolved) Syncope (Resolved) Cardiomyopathy (Ruled-out) 1. AFib with RVR - continue current dose propranolol. Rate much better. BP good. Replace K and Mag, check K in AM. 2. Hypoglycemia - resolved. 3. DMt2 - SSI only given #2. 4. Chronic RUQ pain - elective Kaye per Dr. Leigh this afternoon. 5. COPD with chronic hypoxic respiratory failure - no exacerbation - prn aerosols. IS post op. 6. GERD - PPI 7. CAD, hx systolic HF, CM - home meds 8. Anxiety/Behavioral and cognitive issues - home meds. 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 This patient was seen by Brian Hinojosa PA-C under the supervision of Doctor Evin. <Subhash Cleary - Last Filed: 02/03/18 15:40> Subjective: Patient still has significant right upper quadrant pain. Scheduled for lap kaye today. Heart rate is controlled. Chronic A. fib. - Physical Exam General: Alert, Oriented x3, Cooperative HEENT: Atraumatic, PERRLA, EOMI, Normocephalic Neck: Supple, No JVD, Negative Carotid Bruits Lungs: Clear to auscultation, No rhonchi, No wheeze, No rales, Diminished - Right lung base Cardiovascular: No murmurs, Irregular Rate Abdomen: Bowel Sounds Present, Soft, Non-Distended, Guarding, Tender - RUQ. Tenderness present over epigastrium and right upper quadrant. Mild guarding but no rigidity Extremities: No edema, Capillary Refill Less than 3 Seconds Skin: No rashes, No breakdown Musculoskeletal: No Tenderness to Palpation of Joints or Extremities, Arthritic Changes Neurological: Cranial nerves II-XII grossly intact Psych/Mental Status: Normal Affect, Appropriate Vital Signs Temp Pulse Resp BP Pulse Ox 98.3 F 87 18 104/62 95 02/03/18 13:30 02/03/18 13:30 02/03/18 13:30 02/03/18 13:30 02/03/18 13:30 Oxygen Flow Rate (L/min) 3 Oxygen Delivery Method Nasal Cannula Weight: 188 lb 14.978 oz Body Mass Index (BMI) 35.6 Finger Stick Blood Glucose 364 Intake and Output for Last 24 Hours 02/01/18 02/02/18 02/03/18 23:59 23:59 23:59 Intake Total 1503 / 1503 2168 / 2168 Output Total 200 / 200 Balance 1303 / 1303 2168 / 2168 Laboratory Tests Past 24 Hrs 02/03/18 02/03/18 02/03/18 05:10 05:10 05:10 WBC 8.4 RBC 4.13 L Hgb 11.3 L Hct 36.4 L MCV 88.1 MCH 27.4 MCHC 31.0 L RDW 18.1 H RDW Differential 58.1 H Plt Count 254 MPV 12.4 H Immature Gran % (Auto) 0.200 Neut % (Auto) 51.2 Lymph % (Auto) 37.4 [place] % (Auto) 7.6 Eos % (Auto) 3.0 Baso % (Auto) 0.6 Absolute Neuts (auto) 4.3 Absolute Lymphs (auto) 3.13 Total Counted Not Reportable PT 14.3 INR 1.1 APTT 34.4 Sodium 140 Potassium 3.0 L Chloride 100 Carbon Dioxide 33.0 H Anion Gap 7 BUN 10 Creatinine 0.68 Estim Creat Clear Calc 64.73 Est GFR (MDRD) Af Amer 113 Est GFR (MDRD) Non-Af 93 BUN/Creatinine Ratio 14.7 Glucose 113 H Calcium 8.7 Magnesium 02/03/18 02/03/18 05:10 14:46 WBC RBC Hgb Hct MCV MCH MCHC RDW RDW Differential Plt Count MPV Immature Gran % (Auto) Neut % (Auto) Lymph % (Auto) [place] % (Auto) Eos % (Auto) Baso % (Auto) Absolute Neuts (auto) Absolute Lymphs (auto) Total Counted PT INR APTT Sodium 136 Potassium 4.4 Chloride 106 Carbon Dioxide 24.0 Anion Gap 6 BUN 7 Creatinine 0.50 L Estim Creat Clear Calc 88.03 Est GFR (MDRD) Af Amer 161 Est GFR (MDRD) Non-Af 133 BUN/Creatinine Ratio 14.1 Glucose 101 Calcium 8.2 L Magnesium 1.9 POC Glucose 02/03/18 02/03/18 02/02/18 11:51 05:44 23:51 POC Glucose 119 H 121 H 119 H Assessment/Plan This patient was seen in conjunction with Brian SORIA. I have independently interviewed and examined the patient and reviewed pertinent history, examination findings, laboratory and plan of management. I have reviewed the note and agree with the documented findings with the few additional points. In brief, this is a 62-year-old female with history of chronic A. fib was admitted after lap kaye was canceled because of A. fib with RVR. Heart rate is controlled. Blood pressure is 108/56. K4.4. Sodium 136. EKG showed nonspecific ST-T changes due to A. fib with RVR. Patient had hypoglycemia, glucose 62 but this corrected 101. I think, patient is optimized for surgery, lap kaye. I have discussed my assessment with Brian SORIA and orders have been reviewed. Code Visit Inpatient E&M: 64964 Subs Hosp L3
--- NOTE | 2018-02-03 15:00 | GALL_PTH ---
PATIENT: DARYA LARKIN LOC: [facility] U#:[id number] AGE/SX: 62/F ROOM: [facility] RE02/02/[address]: Dr. Subhash Cleary MD : [id number] BED: 1 DIS: 02/04/2018 SPEC #: [id number] RECD: 02/04/18 09:20 STATUS: ZARINA REJean-Pierre #: [id number] ROSSANA: 02/03/18 15:[address]: Jose Manuel Leigh DEPT: SURGICAL PATHOLOGY RECD BY: Faustino Lanier ENTERED: 02/04/18 12:24 SP TYPE: GALLBLADDE OTHR DR: MD Dr. Lemuel Johansen DO Dr. Prakash Chand, MD Dr. Paul Nielsen, MD Paul Nielsen Tissues: Gallbladder, NOS Procedures: Surgery Specimen Level III Comments: @ Ordering doctor for SUIII edited from to @ by PARAM at 02/04/18 1546 @ Submitting doctor edited from to @ by RGOOD at 02/04/18 1546 HEADER OPERATION: Laparoscopic cholecystectomy with IOC PRE-OP DIAGNOSIS: Acute cholecystitis TISSUE SUBMITTED: Gallbladder MICROSCOPIC DIAGNOSIS Gallbladder: Mild chronic cholecystitis. No stones are identified in the container or in the gallbladder. TODD:marita 02/05/18 MICROSCOPIC DESCRIPTION Slides are reviewed. GROSS DESCRIPTION Received is one container labeled with the patient's name and designated gallbladder. The specimen consists of a gallbladder measuring 10 cm in length and up to 4 cm in diameter. The external surface is pink-herrera, smooth and glistening for the most part. Focally it is granular, hemorrhagic and contains cautery artifact. The gallbladder contains green-yellow mucoid bile. No stones are identified in the container or in the gallbladder. The mucosa is bile-stained and without any mass lesions. The gallbladder wall measures up to 0.3 cm in thickness. 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 / TODD:marita 02/04/18 TC:3 CPT: 77710
[2018-02-03 15:06] LABS: Anion Gap 6 (5-15); BUN 7 mg/dL (7-18); BUN/Creat Ratio 14.1 RATIO (10-20); Calcium,Total 8.2 mg/dL (8.5-10.1); Chloride 106 mmol/L (98-107); EST Glomerular Filtration Rate 133 mL/min (>60); Est Glom Filt Rate - Afr Amer 161 mL/min (>60); Estimated Creatinine Clearance 88.03 ml/min; Glucose 101 mg/dL (74-106); Potassium 4.4 mmol/L (3.5-5.1); Sodium Level 136 mmol/L (136-145)
--- NOTE | 2018-02-03 15:21 | CASEMGMT ---
Social Work Pt was admitted to [facility] from [facility]. SW attempted to meet with pt who is currently out of room for procedure. Phone call to Christina at [facility] and they are planning for pt to return when medically ready. Pt is currently at [facility] in intermediate care. Clinical updates faxed to [facility]. Plan: [facility], when medically ready HAI Baker
--- NOTE | 2018-02-03 15:22 | RAD_ITS ---
CLINICAL HISTORY: Female, 62 years old. Pain PROCEDURE: CHOLANGIOGRAM - intraoperative TECHNIQUE: (Intraoperative fluoroscopic guided cholangiogram: 2 view) Findings: 2 fluoroscopic guided views were performed during intraoperative cholangiogram. For more complete information recommend correlation with operative notes RAD/Cholangiogram/ O R,Initial IMPRESSION: Fluoroscopic guided intraoperative cholangiogram Electronically Signed: Moses Diamond MD at 23:01 EST , Service support ,
[2018-02-03] MEDS: Bupiv/Epi 0.5% Mpf 30 ML Vial (16:03)
--- NOTE | 2018-02-03 16:08 | PCM.OPRPT ---
Problem List (1) Cholecystitis Status: Acute Report of Operation Date of Procedure: 02/03/18 Pre-Operative Diagnosis: History of cholecystitis Post-Operative Diagnosis: Same Surgery/Procedure Performed:: Laparoscopic cholecystectomy with cholangiogram Specimen's removed: Gallbladder and contents Description of Procedure: After obtaining informed consent patient was brought back to the operating room. General anesthesia was induced. The abdomen was prepped and draped in usual sterile fashion. A small midline incision was made superior to the umbilicus and deepened to the level of fascia. The fascia was elevated and incised. Next the peritoneum was elevated and incised in the same fashion. Finger sweep was performed and the Shanks trocar was placed into the abdomen. The balloon was inflated. The abdomen was inflated to 15 mmHg. Next a camera was introduced into the abdomen and the abdomen was inspected. Next under direct visualization three 5-mm ports were placed one subxiphoid and 2 subcostal. Next the gallbladder was elevated and retracted toward the right shoulder. The peritoneum was stripped from the gallbladder. The infundibulum was located and retracted laterally. Next the triangle of Calot was dissected and the cystic duct and cystic artery were identified. Cholangiograms were performed. The Swan catheter was used to clamp across the infundibulum and the needle was inserted into the gallbladder. Under fluoroscopy contrast was instilled into the gallbladder and the common duct, cystic duct as well as proximal hepatic ducts were identified. There was good filling of the duodenum. There were no filling defects noted in the common bile duct. The clamp was removed as well as the needle and the infundibulum was grasped once more. Three hemolock clips were placed across the cystic duct. The cystic duct was then divided leaving 2 clips on the stump. The cystic artery was clipped and divided in the same fashion. The hook cautery was then used to take the gallbladder off of the gallbladder bed. Hemostasis was obtained. Gallbladder fossa was irrigated and no active bleeding or bile leakage was noted. Next the camera switched to a 5 mm camera and introduced in the subxiphoid port. An Endopouch bag was placed through the umbilical port and the gallbladder was placed into it. The gallbladder was then removed through the umbilical incision. The camera was then reinserted through the umbilical port. The gallbladder fossa was inspected once more and noted to be hemostatic with no leaking bile. The abdomen was suctioned dry the 5 mm ports were removed under direct visualization. The umbilical port was then removed and the air was removed from the abdomen. Next using an 0 Vicryl suture the umbilical fascia was closed in a [id number] fashion. The umbilical port site was irrigated local anesthetic was administered to all the incisions. All the incisions were closed subcuticular 4-0 Monocryl sutures followed by Steri-Strips and dressings. The patient was awoken and taken to PACU in stable condition. - Admit VTE Documentation VTE Present on Admission: No VTE Mechan Device Prophylaxis: SCD's
[2018-02-03 16:55] LABS: Bedside Glucose 192 mg/dL (70-110)
[2018-02-03] MEDS: Heparin Injection (Vial) 5,000 UNIT/ML VIAL 5000 UNIT SC (22:13)
[2018-02-03] MEDS: Metoprolol Tartrate 5 MG/5 ML Vial 2.5 MG IV (22:13)
[2018-02-03] MEDS: 0.9% NaCl Peripheral Flush Adult/Peds IV (22:18)
[2018-02-03] MEDS: Insulin Lispro 100 UNIT/ML INSULN.PEN SC (23:42)
[2018-02-03 23:45] LABS: Bedside Glucose 265 mg/dL (70-110)
[2018-02-04] VITALS (11 sets, daily range): BP systolic 105–127; BP diastolic 59–77; PULSE 78–102; RESP 16–18; TEMP 36.3–36.6; O2SAT 94–98; BMI 85.8
[2018-02-04] MEDS: Dextrose 5%-Lactated Ringers 1,000 ML 100 ML IV (04:23)
[2018-02-04] MEDS: Insulin Lispro 100 UNIT/ML INSULN.PEN SC ×2 (05:45→12:42)
[2018-02-04 05:51] LABS: Bedside Glucose 253 mg/dL (70-110)
[2018-02-04] MEDS: Ipratropium/Albuterol Sulfate 3 ML AMPUL.NEB INHALATION (07:25)
[2018-02-04] MEDS: Budesonide Respules 0.5 MG/2 ML AMPUL.NEB. INHALATION (07:26)
[2018-02-04 07:45] LABS: Absolute Lymphocyte Count 0.97 X10^3/ul (0.83-4.51); Absolute Neutrophil Count 6.3 X10^3/uL (2.0-7.7); Basophil# 0.01 X10^3/uL; Basophil% 0.1 % (0-1); Eosinophil# 0.01 X10^3/uL; Eosinophils% 0.1 % (0-5); Hematocrit 34.8 % (37-47); Hemoglobin 10.7 g/dl (12.0-15.0); Lymphocyte # 0.97 X10^3/ul (4.0); Lymphocyte % 12.6 % (19-41); Mean Corp Hgb Conc 30.7 g/gl (32-36); Mean Corpuscular Hgb 26.5 pg (27.0-32.0); Mean Corpuscular Volume 86.1 fL (81-99); Mean Platelet Vol. 11.4 fl (6.2-12.0); Monocyte# 0.37 X10^3/uL; Monocyte% 4.8 % (0-10); Neutrophil # 6.34 X10^3/uL (2.7-7.7); Neutrophil % 82.3 % (47-70); Platelet Count 263 K/mm3 (150-450); RBC Distribution Width CV 17.3 % (11.6-14.6); RBC Distribution Width SD 54.5 fl (35.1-43.9); Red Blood Count 4.04 M/mm3 (4.2-5.4); White Blood Count 7.7 K/mm3 (4.4-11.0)
[2018-02-04 07:49] LABS: POSITIVE COUNT NO; POSITIVE DIFFERENTIAL NO; POSITIVE MORPHOLOGY NO
[2018-02-04 08:12] LABS: Anion Gap 7 (5-15); BUN 8 mg/dL (7-18); BUN/Creat Ratio 11.5 RATIO (10-20); Calcium,Total 8.6 mg/dL (8.5-10.1); Chloride 105 mmol/L (98-107); EST Glomerular Filtration Rate 90 mL/min (>60); Est Glom Filt Rate - Afr Amer 109 mL/min (>60); Estimated Creatinine Clearance 62.88 ml/min; Glucose 213 mg/dL (74-106); Potassium 4.2 mmol/L (3.5-5.1); Sodium Level 141 mmol/L (136-145)
--- NOTE | 2018-02-04 08:59 | PCM.PN.SRG ---
Patient Problems: Active and Suspected Problems (Last Reviewed 01/22/18 @ 13:02 by Shanel Ceballos) Cholecystitis (Acute) Subjective: Patient states to be doing well this morning. She is complaining of some incisional pain but she says the pain deep in her abdomen has resolved with surgery. - Physical Exam General: Alert, Cooperative Cardiovascular: Regular rate Abdomen: Soft, Non-Distended, Tender - Mild tenderness at the site of incisions Vital Signs Temp Pulse Resp BP Pulse Ox 97.5 F L 78 16 119/59 L 98 02/04/18 04:25 02/04/18 07:26 02/04/18 07:26 02/04/18 04:25 02/04/18 07:26 Oxygen Flow Rate (L/min) 4 Oxygen Delivery Method Nasal Cannula Weight: 188 lb 14.978 oz Body Mass Index (BMI) 35.6 Finger Stick Blood Glucose 192 Intake and Output for Last 24 Hours 02/02/18 02/03/18 02/04/18 23:59 23:59 23:59 Intake Total 1503 / 1503 4168 / 4168 1775 / 1775 Output Total 200 / 200 150 / 150 Balance 1303 / 1303 4168 / 4168 1625 / 1625 Laboratory Tests Past 24 Hrs 02/03/18 02/04/18 02/04/18 14:46 07:13 07:13 WBC 7.7 RBC 4.04 L Hgb 10.7 L Hct 34.8 L MCV 86.1 MCH 26.5 L MCHC 30.7 L RDW 17.3 H RDW Differential 54.5 H Plt Count 263 MPV 11.4 Immature Gran % (Auto) 0.100 Neut % (Auto) 82.3 H Lymph % (Auto) 12.6 L [place] % (Auto) 4.8 Eos % (Auto) 0.1 Baso % (Auto) 0.1 Absolute Neuts (auto) 6.3 Absolute Lymphs (auto) 0.97 Total Counted Not Reportable Sodium 136 141 Potassium 4.4 4.2 Chloride 106 105 Carbon Dioxide 24.0 29.0 Anion Gap 6 7 BUN 7 8 Creatinine 0.50 L 0.70 Estim Creat Clear Calc 88.03 62.88 Est GFR (MDRD) Af Amer 161 109 Est GFR (MDRD) Non-Af 133 90 BUN/Creatinine Ratio 14.1 11.5 Glucose 101 213 H Calcium 8.2 L 8.6 POC Glucose 02/04/18 02/03/18 02/03/18 05:44 23:39 16:45 POC Glucose 253 H 265 H 192 H 02/03/18 11:51 POC Glucose 119 H Medical Necessity - Tobacco Use Smoking Status: Current every day smoker Assessment/Plan All Active Problems (Last Reviewed 01/22/18 @ 13:02 by Shanel Ceballos) Bradycardia (Acute) Digoxin toxicity (Acute) Cholecystitis (Acute) Acute encephalopathy (Acute) Acute kidney injury (Acute) HCAP (healthcare-associated pneumonia) (Acute) Acute and chronic respiratory failure with hypoxia (Resolved) Acute bronchitis due to human metapneumovirus (Resolved) Atrial fibrillation with RVR (Resolved) COPD with acute exacerbation (Resolved) Gram-negative pneumonia (Resolved) Syncope (Resolved) Cardiomyopathy (Ruled-out) 62-year-old female status post laparoscopic cholecystectomy 1. Patient seems to be doing well this morning. I placed her on clear liquid diet and she can advance diet as tolerated. Once patient is tolerating a diet she may be discharged back to her longterm. She may resume her full anticoagulation tomorrow. Okay for subcutaneous prophylactic heparin today. 2. Patient will need to follow-up with me in 2 weeks. Jose Manuel Leigh MD Pager: [facility] [address] [place] [address], [address] [place] [address] Office:
[2018-02-04] MEDS: Gabapentin 100 MG Capsule PO ×2 (09:28→12:40)
[2018-02-04] MEDS: Pantoprazole Sodium 40 MG Tablet PO (09:28)
[2018-02-04] MEDS: DULoxetine Hcl 60 MG Capsule PO (09:28)
[2018-02-04] MEDS: Heparin Injection (Vial) 5,000 UNIT/ML VIAL 5000 UNIT SC (09:29)
[2018-02-04] MEDS: buPROPion (SR) 150 MG Tablet.SA PO (09:29)
[2018-02-04] MEDS: Propranolol 10 MG Tablet 20 MG PO ×2 (09:31→13:32)
[2018-02-04] MEDS: Glucerna Shake 120 ML LIQUID PO ×2 (09:36→12:40)
[2018-02-04] MEDS: Acetaminophen 325 MG Tablet 650 MG PO (09:40)
--- NOTE | 2018-02-04 11:40 | PCM.TXEXTCAR ---
- Diet 02/03/18 16:10 Diet: Clear Liquid Is pt able to select menu?: Yes Advance to: Calorie Controlled Daily Calories: 1800 calorie - Routine Orders/Code Status Suppository Type: Dulcolax 10mg Suppository Frequency: Daily PRN Routine Lab Work: BMP - on 02/08/18 and then weekly as the patient is on diuretic. Follow-up the results with PCP - Wound(s) ABDOMEN Wound Type: Surgical Incision Dressing Change: OPSITE X 4 - Therapies Weight Bearing: Weight bearing as tolerated Extremity Affected:: Bilateral Lower Physical Therapy: Eval and Treat Occupational Therapy: Eval and Treat Speech Therapy: Eval and Treat - Allergies/Procedures Done in Hospital Allergies/Adverse Reactions: Allergies venom-honey bee [bee venom (honey bee)] Allergy (Verified 02/01/18 13:17) Swelling levofloxacin [From Levaquin] Adverse Reaction (Verified 02/01/18 13:17) Nausea oxycodone HCl [From Percocet] Adverse Reaction (Verified 02/01/18 13:17) Nausea Penicillins Adverse Reaction (Verified 02/01/18 13:17) Nausea/Vom/Diarrhea - Type of Care/Length of Stay Estimated LOS: Convalescent Care Less Than 30 days Type of Care Needed: Skilled Rehab Potential: Good Prognosis: Good - Additional Orders/Day of Discharge Day of Discharge: 02/04/18 - Dietary and Speech Recommendations Dietitian Recommendations/Changes: Rec diet of Cardiac/1800 calorie controlled diet - Follow Up Care Primary Care Physician: Camden Burger [Primary Care Provider] - Please follow up with your Primary Care Physician in: In 1-2 weeks Please Follow Up With: Jose Manuel Leigh MD When: In 2 weeks Please Follow Up With: Camden Mccormick MD When: chf, systolic heart failure
--- NOTE | 2018-02-04 12:08 | DS.PCM_ITS ---
Discharge Date and Diagnosis - Problem List Patient Problems: Active and Suspected Problems (Last Reviewed 01/22/18 @ 13:02 by Shanel Ceballos) Cholecystitis (Acute) Date of Admission: 02/02/18 Date of Discharge: 02/04/18 - Primary Discharge Diagnosis Active and Suspected Problems (Last Reviewed 01/22/18 @ 13:02 by Shanel Ceballos) History of cholecystitis with cholelithiasis. A. fib with RVR - Secondary Discharge Diagnosis Chronic Problems (Last Reviewed 01/22/18 @ 13:02 by Shanel Ceballos) Abdominal pain (Chronic) ABDULLAHI (obstructive sleep apnea) (Chronic) Tobacco dependence due to cigarettes (Chronic) Non-compliance (Chronic) Hypersomnia (Chronic) Anemia (Chronic) Normocytic HTN (hypertension) (Chronic) Morbid obesity with BMI of 40.0-44.9, adult (Chronic) COPD (chronic obstructive pulmonary disease) (Chronic) Chronic pain (Chronic) Chronic atrial fibrillation (Chronic) Chronic hypoxemic respiratory failure (Chronic) non-compliant with oxygen Hyperlipemia (Chronic) Type 2 diabetes mellitus (Chronic) uncontrolled GERD (gastroesophageal reflux disease) (Chronic) Anxiety (Chronic) Insomnia (Chronic) Hospital Course and Treatment Operations: None Summary of Care Provided: The patient is a 62 year old female with history of chronic A. fib was admitted after lap michel was canceled because of A. fib with RVR. Heart rate was controlled. Initially blood pressure was low but has recovered, 119/64. K4.4. Sodium 136. EKG showed nonspecific ST-T changes due to A. fib with RVR. Patien t had hypoglycemia, glucose 62 but this corrected 101. The patient had lap michel yesterday with intraoperative cholangiogram. Cholangiogram did not show filling defect. Patient complained of mild abdominal pain that is expected of surgery. Patient is being discharged to SNF. Discharge medication reconciliation done. Follow with Dr. Leigh in 2 weeks. Advised to resume Xarelto tomorrow a.m. Discharge follow-up instructions completed. Patient is being discharged to SNF [] Patient Problems: Active and Suspected Problems (Last Reviewed 01/22/18 @ 13:02 by Shanel Ceballos) Cholecystitis (Acute) - Physical Exam General: Alert, Oriented x3, Cooperative HEENT: Atraumatic, PERRLA, EOMI, Normocephalic Neck: Supple, No JVD, Negative Carotid Bruits Lungs: Clear to auscultation, No rhonchi, No wheeze, No rales, Diminished - Right lung base Cardiovascular: Normal S1, Normal S2, No murmurs, Irregular Rate Abdomen: Bowel Sounds Present, Soft, Tender - Mild expected tenderness in right upper quadrant, postsurgical Extremities: No edema, Capillary Refill Less than 3 Seconds Skin: No rashes, No breakdown Musculoskeletal: No Tenderness to Palpation of Joints or Extremities, Arthritic Changes Neurological: Cranial nerves II-XII grossly intact, Deep Tendon Reflexes 2+/4 and Symmetrical, Neuro grossly intact Psych/Mental Status: Normal Affect, Appropriate Vital Signs Temp Pulse Resp BP Pulse Ox 97.9 F 102 H 17 119/64 95 02/04/18 09:21 02/04/18 09:21 02/04/18 09:21 02/04/18 09:21 02/04/18 09:21 Oxygen Flow Rate (L/min) 2 Oxygen Delivery Method Nasal Cannula Weight: 188 lb 14.978 oz Body Mass Index (BMI) 35.6 Finger Stick Blood Glucose 192 Intake and Output for Last 24 Hours 02/02/18 02/03/18 02/04/18 23:59 23:59 23:59 Intake Total 1503 / 1503 4168 / 4168 1775 / 1775 Output Total 200 / 200 150 / 150 Balance 1303 / 1303 4168 / 4168 1625 / 1625 Laboratory Tests Past 24 Hrs 02/03/18 02/04/18 02/04/18 14:46 07:13 07:13 WBC 7.7 RBC 4.04 L Hgb 10.7 L Hct 34.8 L MCV 86.1 MCH 26.5 L MCHC 30.7 L RDW 17.3 H RDW Differential 54.5 H Plt Count 263 MPV 11.4 Immature Gran % (Auto) 0.100 Neut % (Auto) 82.3 H Lymph % (Auto) 12.6 L [place] % (Auto) 4.8 Eos % (Auto) 0.1 Baso % (Auto) 0.1 Absolute Neuts (auto) 6.3 Absolute Lymphs (auto) 0.97 Total Counted Not Reportable Sodium 136 141 Potassium 4.4 4.2 Chloride 106 105 Carbon Dioxide 24.0 29.0 Anion Gap 6 7 BUN 7 8 Creatinine 0.50 L 0.70 Estim Creat Clear Calc 88.03 62.88 Est GFR (MDRD) Af Amer 161 109 Est GFR (MDRD) Non-Af 133 90 BUN/Creatinine Ratio 14.1 11.5 Glucose 101 213 H Calcium 8.2 L 8.6 POC Glucose 02/04/18 02/03/18 02/03/18 05:44 23:39 16:45 POC Glucose 253 H 265 H 192 H 02/03/18 11:51 POC Glucose 119 H Home Medications: Medications to take at Discharge Albuterol Aerosols [Ventolin Aerosols] 2.5 mg INHALATION 4X/DAY 05/12/17 Atorvastatin Calcium [Lipitor] 40 mg PO QHS 05/12/17 Budesonide/Formoterol 160/4.5 [Symbicort 160/4.5 Mcg Inhaler (SP)] 2 puff INHALATION BID 05/12/17 Bupropion HCl [Bupropion HCl Sr] 150 mg PO BID 05/12/17 Buspirone HCl 10 mg PO TID 05/12/17 Glucagon,Human Recombinant [Glucagon Emergency Kit] 1 mg IM PRN PRN 05/12/17 Ipratropium/Albuterol Sulfate [Duoneb] 3 ml INHALATION Q6H PRN 05/12/17 Propranolol HCl [Inderal (Beta Rubén)] 10 mg PO BID 05/12/17 Sennosides/Docusate Sodium [Senna-Docusate Sodium Tablet] 2 tab PO DAILY PRN PRN 05/12/17 Mag Hydrox/Al Hydrox/Simeth [Mylanta II] 30 ml PO Q6H PRN PRN 08/11/17 docusate sodium 100 mg capsule 100 mg PO QHS 09/01/17 Rivaroxaban [Xarelto] 20 mg PO DAILY #0 11/03/17 Calcium Carbonate [Tums] 500 mg PO Q6H PRN PRN 11/20/17 Benzonatate [Tessalon Perle] 100 mg PO TID PRN PRN 12/23/17 Bisacodyl [Dulcolax] 10 mg RECTAL QHS PRN 12/23/17 Duloxetine HCl 60 mg PO DAILY 12/23/17 Furosemide [Lasix] 40 mg PO BIDLX 12/23/17 Gabapentin [Neurontin] 100 mg PO TIDCM 12/23/17 Guaifenesin [Mucinex] 1,200 mg PO BID PRN 12/23/17 Loperamide [Imodium] 2 mg PO PRN PRN 12/23/17 Polyethylene Glycol 3350 [Miralax] 17 gm PO DAILY 12/23/17 Acetaminophen 650 mg PO PRN PRN 12/25/17 Insulin Glargine,Hum.rec.anlog [Basaglar Kwikpen U-100] 20 unit SQ QHS 12/25/17 Ondansetron HCl [Zofran] 4 mg PO Q6H PRN PRN 12/25/17 Lactobacillus Acidophilus [Acidophilus] 1 cap PO DAILY 01/14/18 Lactose-Reduced Food [Boost Breeze] 237 ml PO TID 01/14/18 Pantoprazole Sodium [Protonix] 40 mg PO DAILY #0 tab 01/17/18 Albuterol Aerosols [Ventolin Aerosols] 2.5 mg INHALATION Q6HWA.RT PRN 02/01/18 Budesonide Aerosol [Pulmicort Respules] 0.5 mg INHALATION Q12H.RT ampul.neb. 02/04/18 Hydrocodone Bitart/Apap 5-325 [[place] 5/325] 1 tab PO Q6H PRN PRN 3 Days #7 tab 02/04/18 Insulin Lispro [Humalog KwikPen] See Protocol SUBCUT ACHS #0 insuln.pen 02/04/18 Potassium Chloride [K-Dur] 20 meq PO DAILY #30 tab 02/04/18 Following Prescrptions Were Given to Patient: Hydrocodone Bitart/Apap 5-325 [[place] 5/325] 1 tab PO Q6H PRN PRN 3 Days #7 tab PRN Reason: Pain Potassium Chloride [K-Dur] 20 meq PO DAILY #30 tab Other Amb Orders: 12 Lead EKG [[facility]S] Time Frame: 02/02/18, Location: None Selected Primary Care Physician: Camden Burger [Primary Care Provider] - Please follow up with your Primary Care Physician in: In 1-2 weeks Please Follow Up With: Jose Manuel Leigh MD When: In 2 weeks Please Follow Up With: Camden Mccormick MD When: chf, systolic heart failure Medical Necessity - Tobacco Use Smoking Status: Current every day smoker Meaningful Use Info Meaningful Use Diagnoses (Choose all that apply): None applicable Code Visit Inpatient E&M: 89163 Disch Hosp
[2018-02-04 12:51] LABS: Bedside Glucose 181 mg/dL (70-110)
--- NOTE | 2018-02-04 12:58 | CASEMGMT ---
Patient is ready for d/c back to [facility]. SW faxed orders. Called [facility] and arranged for patient to get picked up at 4p via [email or web address] van. SW notified Christina at [facility]. SW will notify RN and patient. Plan: d/c back to [facility] under intermediate level of care. [facility] transported via [email or web address] van. Briana CARRASCO
[2018-02-04] MEDS: 0.9% NaCl Peripheral Flush Adult/Peds IV (13:30)
[2018-02-04] MEDS: Morphine 2 MG/ML Syringe IV (13:30)
[2018-02-04] MEDS: busPIRone 5 MG Tablet 10 MG PO (13:32)
[2018-02-04] MEDS: Albuterol 2.5 MG/3 ML VIAL.NEB. INHALATION (13:36)
--- NOTE | 2018-02-04 16:42 | NURSING ---
Report called to [facility] took report
== END 2018-02-04 17:50 | disposition skilled nursing facility (03) | DRG 951 ==
LOC: SDC 18:09 → PCU 02-03 06:57
PROVIDERS: Anesthesiology; Physician Assistant; Student in an Organized Health Care Education/Training Program; Admitting Provider Internal Medicine; Family Provider Family Medicine; PCP Family Medicine; Referring Provider Surgery; Visit Provider Internal Medicine
PROC: (CPT 47610; principal; 2018-02-03 14:40)
DX: I48.2 Chronic atrial fibrillation (principal); J44.9 Chronic obstructive pulmonary disease, unspecified; I11.0 Hypertensive heart disease with heart failure; I50.20 Unspecified systolic (congestive) heart failure; E11.649 Type 2 diabetes mellitus with hypoglycemia without coma; J96.11 Chronic respiratory failure with hypoxia; E66.01 Morbid (severe) obesity due to excess calories; Z79.4 Long term (current) use of insulin; K81.1 Chronic cholecystitis; G47.33 Obstructive sleep apnea (adult) (pediatric); Z99.81 Dependence on supplemental oxygen; F17.200 Nicotine dependence, unspecified, uncomplicated; K21.9 Gastro-esophageal reflux disease without esophagitis; F41.9 Anxiety disorder, unspecified; G47.10 Hypersomnia, unspecified; G47.00 Insomnia, unspecified; M81.0 Age-related osteoporosis without current pathological fracture; E78.5 Hyperlipidemia, unspecified; Z53.09 Procedure and treatment not carried out because of other contraindication; Z68.35 Body mass index [BMI] 35.0-35.9, adult; Z79.899 Other long term (current) drug therapy; I25.10 Atherosclerotic heart disease of native coronary artery without angina pectoris; Z79.01 Long term (current) use of anticoagulants; F32.9 Major depressive disorder, single episode, unspecified
CPT/HCPCS: 47563; 00790; 36415; 74300; 76000; 80048; 82962; 83036; 83735; 85025; 85027; 85610; 85730; 88304; 93005; 94640; 96361; 96372; 96374; 96375; 97165; 97802; 99218; J7040; J7120; A4216; G0378; J2405

== ENCOUNTER 2018-02-07 18:44 | Inpatient (IN) | payer MEDICAID, SELFPAY ==
[2018-02-05 12:36] VITALS: BMI 85.8
[2018-02-07] VITALS (8 sets, daily range): BP systolic 93–111; BP diastolic 45–71; PULSE 82–125; RESP 16–21; TEMP 36.4–36.9; O2SAT 93–97; BMI 36.4
--- NOTE | 2018-02-07 20:45 | RAD_ITS ---
STUDY: X-RAY CHEST REASON FOR EXAM: Female, 62 years old. Hypotension TECHNIQUE: Single AP portable view of the chest. COMPARISON: Prior study of 01/14/2018 FINDINGS: The lungs are clear and expanded. There is no demonstrated pleural abnormality. Normal size heart. Normal mediastinum and sangeeta. Normal visualized pulmonary arteries. There are calcified plaques of the aortic arch. Normal visualized thoracic spine. Normal visualized ribs, clavicles, and shoulders. There is no demonstrated abnormality of the visualized soft tissue structures of the upper abdomen. RAD/Chest 1 View (Portable) IMPRESSION: Calcified plaques of the aortic arch. No acute cardiopulmonary disease process is seen. Chest findings are stable in the interval. Electronically Signed: Ryan Garrett MD at 21:09 EST , Service support ,
--- NOTE | 2018-02-07 20:47 | ED.VISSUMM ---
- ER Visit Summary Date of Service: 02/07/18 Chief Complaint: Concern for hypotension History of Present Illness: The patient is a 62 F who presents from a assisted facility when staff noted she was hypotensive. It is unclear what this measurement was. EMS noted a normal blood pressure. Patient states she had gallbladder surgery 5 days ago and is having abdominal pain, but no pain worse than her postop pain yesterday. She takes Usk for the pain. She denies fever, chest pain, shortness of breath, cough, nausea or vomiting, diarrhea or urinary symptoms. Chart review shows history of diabetes, atrial fibrillation, COPD, hypertension, and patient was supposed to resume Xarelto 1 day after surgery. Physical Examination: Vital signs: afebrile, hemodynamically stable, no hypoxia on room air General: well nourished, well developed, in no distress Skin: warm, dry, no rash, no pallor HEENT: normocephalic and atraumatic; PERRL, EOMI, moist mucous membranes Cardiovascular: regular rate and rhythm without murmurs, no peripheral edema, 2+ pulses all distal extremities Respiratory: No increased work of breathing, lungs show diffuse wheezing Abdominal: Abdomen is soft, obese, diffusely tender with normoactive bowel sounds, no guarding or rebound, no masses, laparoscopic incisions are clean, dry, intact, no dehiscence, no surrounding erythema induration or tenderness MSK: Moves all extremities, no deformities, generalized weakness Neuro: Awake and alert, answers questions appropriately. No facial droop, sensation and motor function intact and symmetric Test Results: Abnormal Lab Results 02/07/18 02/07/18 02/07/18 21:11 21:11 21:30 WBC 10.1 RBC 4.10 L Hgb 11.4 L Hct 36.4 L MCV 88.8 MCH 27.8 MCHC 31.3 L RDW 18.2 H RDW Differential 57.7 H Plt Count 191 MPV 12.3 H Sodium 142 Potassium 4.1 Chloride 103 Carbon Dioxide 29.0 Anion Gap 10 BUN 14 Creatinine 0.77 Estim Creat Clear Calc 57.16 Est GFR (MDRD) Af Amer 97 Est GFR (MDRD) Non-Af 81 BUN/Creatinine Ratio 18.2 Glucose 165 H Calcium 8.4 L Total Bilirubin 0.30 AST 17 ALT 17 Alkaline Phosphatase 107 Troponin I < 0.015 Total Protein 5.9 L Albumin 2.4 L Globulin 3.5 Albumin/Globulin Ratio 0.7 L Lipase 67 L Urine Color Urine Clarity Urine pH Ur Specific [place] Urine Protein Urine Glucose (UA) Urine Ketones Urine Occult Blood Urine Nitrite Urine Bilirubin Urine Urobilinogen Ur Leukocyte Esterase Urine RBC Urine WBC Ur Squamous Epith Cells Urine Bacteria Hyaline Casts Urine Mucus POC Glucose 159 H 02/07/18 22:30 WBC RBC Hgb Hct MCV MCH MCHC RDW RDW Differential Plt Count MPV Sodium Potassium Chloride Carbon Dioxide Anion Gap BUN Creatinine Estim Creat Clear Calc Est GFR (MDRD) Af Amer Est GFR (MDRD) Non-Af BUN/Creatinine Ratio Glucose Calcium Total Bilirubin AST ALT Alkaline Phosphatase Troponin I Total Protein Albumin Globulin Albumin/Globulin Ratio Lipase Urine Color Yellow Urine Clarity Clear Urine pH 8.0 Ur Specific [place] 1.015 Urine Protein Negative Urine Glucose (UA) Normal Urine Ketones Negative Urine Occult Blood Negative Urine Nitrite Negative Urine Bilirubin Negative Urine Urobilinogen Normal Ur Leukocyte Esterase Negative Urine RBC 0 SEEN Urine WBC 0 SEEN Ur Squamous Epith Cells 0 SEEN Urine Bacteria 0 SEEN Hyaline Casts 0-5 SEEN Urine Mucus 0 SEEN POC Glucose Clinical Impression(s) from Imaging Studies Chest X-Ray 02/07/18 20:45 IMPRESSION: Calcified plaques of the aortic arch. No acute cardiopulmonary disease process is seen. Chest findings are stable in the interval. Electronically Signed: Ryan Garrett MD at 21:09 EST , Service support , Medications Given Discontinued Medications Diltiazem HCl (Cardizem) 10 mg IV BOLUS X1 ONE Stop: 02/07/18 21:39 Last Admin: 02/07/18 22:13 Dose: 10 mg Diltiazem HCl (Cardizem) 10 mg IV BOLUS X1 ONE Stop: 02/07/18 23:21 Last Admin: 02/07/18 23:25 Dose: 10 mg Diltiazem HCl (Cardizem) 60 mg PO X1 ONE Stop: 02/07/18 23:59 Last Admin: 02/08/18 00:17 Dose: 60 mg Fentanyl Citrate (Sublimaze (100mcg Ampule)) 25 mcg IV X1 ONE Stop: 02/07/18 20:46 Last Admin: 02/07/18 21:24 Dose: 25 mcg Sodium Chloride () 1,000 mls @ 500 mls/hr IV .Q2H ONE Stop: 02/07/18 22:44 Last Admin: 02/07/18 21:24 Dose: 500 mls/hr Ondansetron HCl (Zofran) 4 mg IV X1 ONE Stop: 02/07/18 20:46 Last Admin: 02/07/18 21:24 Dose: 4 mg Emergency Department Course and Treatment: Patient's blood pressure is on the low end of normal for someone who has history of hypertension. Because she had recent surgery and is complaining of abdominal pain, workup was performed. Patient was given normal saline for hydration. She was given fentanyl and Zofran for symptom medic relief. Patient has no fever, tachycardia or other concerning vital signs for sepsis. Patient had no leukocytosis. Labs were unremarkable. Urine negative for infection. Troponin negative. Chest x-ray showed no acute process. While evaluation in process, patient went into A. fib with RVR. Her pressure remained relatively stable, with only minimal decrease into the 90 systolic. Patient was given Cardizem 10 mg IV bolus with no response. A second 10 mg bolus resulted in modest decrease into the low 100s of her heart rate. Blood pressure returned to 100/systolic. Patient remained comfortable slept without any distress. I suspect [facility] may have been related to an episode of A. fib with RVR. She was in a sinus rhythm when she first arrived in the emergency department, and converted to the A. fib with RVR without any symptoms or hemodynamic instability. Patient was given oral Cardizem after she began responding to the IV bolus and was admitted to the PCU for further management of A. fib with RVR. Chart review shows that she had recently been taken off of digoxin due to toxicity and issues with bradycardia. She is currently on propranolol and no other medications noted on her med list for treatment of rate control of atrial fibrillation. Treatment Plan: [] Disposition: [] Impression: A. fib with RVR, postoperative abdominal pain This note was generated with [employer] software. It may contain incorrect words, spelling, and punctuation that were not noted in review of the chart prior to signing ED Disposition - Plan for ED Patient: Chief Complaint: General Illness Referrals: Camden Burger [Primary Care Provider] -
--- NOTE | 2018-02-07 20:50 | ED.DCSUM_ITS ---
- ER Visit Summary Date of Service: 02/07/18 Chief Complaint: Concern for hypotension History of Present Illness: The patient is a 62 F who presents from a custodial facility when staff noted she was hypotensive. It is unclear what this measurement was. EMS noted a normal blood pressure. Patient states she had gallbladder surgery 5 days ago and is having abdominal pain, but no pain worse than her postop pain yesterday. She takes [place] for the pain. She denies fever, chest pain, shortness of breath, cough, nausea or vomiting, diarrhea or urinary symptoms. Chart review shows history of diabetes, atrial fibrillation, COPD, hypertension, and patient was supposed to resume Xarelto 1 day after surgery. Physical Examination: Vital signs: afebrile, hemodynamically stable, no hypoxia on room air General: well nourished, well developed, in no distress Skin: warm, dry, no rash, no pallor HEENT: normocephalic and atraumatic; PERRL, EOMI, moist mucous membranes Cardiovascular: regular rate and rhythm without murmurs, no peripheral edema, 2+ pulses all distal extremities Respiratory: No increased work of breathing, lungs show diffuse wheezing Abdominal: Abdomen is soft, obese, diffusely tender with normoactive bowel sounds, no guarding or rebound, no masses, laparoscopic incisions are clean, dry, intact, no dehiscence, no surrounding erythema induration or tenderness MSK: Moves all extremities, no deformities, generalized weakness Neuro: Awake and alert, answers questions appropriately. No facial droop, sensation and motor function intact and symmetric Test Results: Abnormal Lab Results 02/07/18 02/07/18 02/07/18 21:11 21:11 21:30 WBC 10.1 RBC 4.10 L Hgb 11.4 L Hct 36.4 L MCV 88.8 MCH 27.8 MCHC 31.3 L RDW 18.2 H RDW Differential 57.7 H Plt Count 191 MPV 12.3 H Sodium 142 Potassium 4.1 Chloride 103 Carbon Dioxide 29.0 Anion Gap 10 BUN 14 Creatinine 0.77 Estim Creat Clear Calc 57.16 Est GFR (MDRD) Af Amer 97 Est GFR (MDRD) Non-Af 81 BUN/Creatinine Ratio 18.2 Glucose 165 H Calcium 8.4 L Total Bilirubin 0.30 AST 17 ALT 17 Alkaline Phosphatase 107 Troponin I < 0.015 Total Protein 5.9 L Albumin 2.4 L Globulin 3.5 Albumin/Globulin Ratio 0.7 L Lipase 67 L Urine Color Urine Clarity Urine pH Ur Specific [place] Urine Protein Urine Glucose (UA) Urine Ketones Urine Occult Blood Urine Nitrite Urine Bilirubin Urine Urobilinogen Ur Leukocyte Esterase Urine RBC Urine WBC Ur Squamous Epith Cells Urine Bacteria Hyaline Casts Urine Mucus POC Glucose 159 H 02/07/18 22:30 WBC RBC Hgb Hct MCV MCH MCHC RDW RDW Differential Plt Count MPV Sodium Potassium Chloride Carbon Dioxide Anion Gap BUN Creatinine Estim Creat Clear Calc Est GFR (MDRD) Af Amer Est GFR (MDRD) Non-Af BUN/Creatinine Ratio Glucose Calcium Total Bilirubin AST ALT Alkaline Phosphatase Troponin I Total Protein Albumin Globulin Albumin/Globulin Ratio Lipase Urine Color Yellow Urine Clarity Clear Urine pH 8.0 Ur Specific [place] 1.015 Urine Protein Negative Urine Glucose (UA) Normal Urine Ketones Negative Urine Occult Blood Negative Urine Nitrite Negative Urine Bilirubin Negative Urine Urobilinogen Normal Ur Leukocyte Esterase Negative Urine RBC 0 SEEN Urine WBC 0 SEEN Ur Squamous Epith Cells 0 SEEN Urine Bacteria 0 SEEN Hyaline Casts 0-5 SEEN Urine Mucus 0 SEEN POC Glucose Clinical Impression(s) from Imaging Studies Chest X-Ray 02/07/18 20:45 IMPRESSION: Calcified plaques of the aortic arch. No acute cardiopulmonary disease process is seen. Chest findings are stable in the interval. Electronically Signed: Ryan Garrett MD at 21:09 EST , Service support , Medications Given Discontinued Medications Diltiazem HCl (Cardizem) 10 mg IV BOLUS X1 ONE Stop: 02/07/18 21:39 Last Admin: 02/07/18 22:13 Dose: 10 mg Diltiazem HCl (Cardizem) 10 mg IV BOLUS X1 ONE Stop: 02/07/18 23:21 Last Admin: 02/07/18 23:25 Dose: 10 mg Diltiazem HCl (Cardizem) 60 mg PO X1 ONE Stop: 02/07/18 23:59 Last Admin: 02/08/18 00:17 Dose: 60 mg Fentanyl Citrate (Sublimaze (100mcg Ampule)) 25 mcg IV X1 ONE Stop: 02/07/18 20:46 Last Admin: 02/07/18 21:24 Dose: 25 mcg Sodium Chloride () 1,000 mls @ 500 mls/hr IV .Q2H ONE Stop: 02/07/18 22:44 Last Admin: 02/07/18 21:24 Dose: 500 mls/hr Ondansetron HCl (Zofran) 4 mg IV X1 ONE Stop: 02/07/18 20:46 Last Admin: 02/07/18 21:24 Dose: 4 mg Emergency Department Course and Treatment: Patient's blood pressure is on the low end of normal for someone who has history of hypertension. Because she had recent surgery and is complaining of abdominal pain, workup was performed. Patient was given normal saline for hydration. She was given fentanyl and Zofran for symptom medic relief. Patient has no fever, tachycardia or other concerning vital signs for sepsis. Patient had no leukocytosis. Labs were unremarkable. Urine negative for infection. Troponin negative. Chest x-ray showed no acute process. While evaluation in process, patient went into A. fib with RVR. Her pressure remained relatively stable, with only minimal decrease into the 90 systolic. Patient was given Cardizem 10 mg IV bolus with no response. A second 10 mg bolus resulted in modest decrease into the low 100s of her heart rate. Blood pressure returned to 100/systolic. Patient remained comfortable slept without any distress. I suspect patient's hypotension at the [facility] may have been related to an episode of A. fib with RVR. She was in a sinus rhythm when she first arrived in the emergency department, and converted to the A. fib with RVR without any symptoms or hemodynamic instability. Patient was given oral Cardizem after she began responding to the IV bolus and was admitted to the PCU for further management of A. fib with RVR. Chart review shows that she had recently been taken off of digoxin due to toxicity and issues with bradycardia. She is currently on propranolol and no other medications noted on her med list for treatment of rate control of atrial fibrillation. Treatment Plan: [] Disposition: [] Impression: A. fib with RVR, postoperative abdominal pain This note was generated with ticketeaation software. It may contain incorrect words, spelling, and punctuation that were not noted in review of the chart prior to signing ED Disposition - Plan for ED Patient: Chief Complaint: General Illness Referrals: Camden Burger [Primary Care Provider] -
[2018-02-07 21:23] LABS: Hematocrit 36.4 % (37-47); Hemoglobin 11.4 g/dl (12.0-15.0); Mean Corp Hgb Conc 31.3 g/gl (32-36); Mean Corpuscular Hgb 27.8 pg (27.0-32.0); Mean Corpuscular Volume 88.8 fL (81-99); Mean Platelet Vol. 12.3 fl (6.2-12.0); Platelet Count 191 K/mm3 (150-450); RBC Distribution Width CV 18.2 % (11.6-14.6); RBC Distribution Width SD 57.7 fl (35.1-43.9); White Blood Count 10.1 K/mm3 (4.4-11.0)
[2018-02-07] MEDS: Ondansetron 4 MG/2 ML Vial IV (21:24)
[2018-02-07] MEDS: 0.9% Normal Saline 1,000 ML 500 ML IV (21:24)
[2018-02-07] MEDS: fentaNYL 100 MCG/2 ML Ampul 25 MCG IV (21:24)
[2018-02-07 21:25] LABS: Scan Indicated on CBC? Y/N NO
[2018-02-07 21:35] LABS: Bedside Glucose 159 mg/dL (70-110)
[2018-02-07 21:40] LABS: ALB/GLOB Ratio 0.7 RATIO (0.9-2.4); AST(SGOT) 17 U/L (15-37); Alanine Aminotransfer ALT/SGPT 17 U/L (13-56); Albumin, Serum 2.4 g/dL (3.2-5.0); Alkaline Phosphatase 107 U/L (45-117); Anion Gap 10 (5-15); BUN 14 mg/dL (7-18); BUN/Creat Ratio 18.2 RATIO (10-20); Calcium,Total 8.4 mg/dL (8.5-10.1); Chloride 103 mmol/L (98-107); Creatinine, Serum 0.77 mg/dL (0.55-1.02); EST Glomerular Filtration Rate 81 mL/min (>60); Est Glom Filt Rate - Afr Amer 97 mL/min (>60); Estimated Creatinine Clearance 57.16 ml/min; Globulin 3.5 g/dL (2.2-4.2); Glucose 165 mg/dL (74-106); Lipase 67 U/L (73-393); Potassium 4.1 mmol/L (3.5-5.1); Protein, Total 5.9 g/dL (6.4-8.2); Sodium Level 142 mmol/L (136-145)
[2018-02-07] MEDS: dilTIAZem 25 MG/5 ML Vial 10 MG IV BOLUS ×2 (22:13→23:25)
[2018-02-07 22:35] LABS: Bacteria 0 SEEN /hpf (None Seen); Mucous, Urine 0 SEEN /hpf (<or=2+); Red Blood Cells-Urine 0 SEEN /hpf (0-5); Squamous Epithelial Cells - UA 0 SEEN /hpf (5-10); White Blood Cells 0 SEEN /hpf (0-5)
[2018-02-07 22:40] LABS: Color, Urine Yellow (Yellow); Glucose, Dipstick Normal (Normal); Ketone-Dipstick Negative (Negative); Leukocyte Esterase-Dipstick Negative /ul (Negative); Nitrite-Dipstick Negative (Negative); Occult Blood-Urine Negative /ul (Negative); Protein-Dipstick Negative (Negative); Specific Gravity, Urine 1.015 (1.002-1.030); Urine Bilirubin Dipstick Negative (Negative); Urine Clarity Clear (Clear); Urine Urobilinogen Normal (Normal)
[2018-02-07 22:45] LABS: Hyaline Cast 0-5 SEEN /lpf (0-5)
[2018-02-08] VITALS (17 sets, daily range): BP systolic 93–111; BP diastolic 49–79; PULSE 80–116; RESP 16–20; TEMP 36.3–36.9; O2SAT 90–97; BMI 35.3; BMI 35.2
[2018-02-08] MEDS: dilTIAZem 60 MG Tablet PO (00:17)
--- NOTE | 2018-02-08 00:20 | HP.PCM_ITS ---
History of Present Illness Date of Admission: 02/08/18 Chief Complaint: hypotension The patient is a 62 year old F with an extensive past medical history including A. fib, hypertension hyperlipidemia and cardiomyopathy. She was admitted through the ED on 02/08/2018 with a complaint of low blood pressure. Patient blood pressure was checked in [facility] and was found to be low and so she was brought into the hospital. Hypotension resolved with initiation of IV fluid. However patient subsequently developed A. fib with RVR was in the ED. she denied any palpitations or chest pain, shortness of breath, abdominal pain, diarrhea vomiting. Patient had laparoscopic cholecystectomy 5 days ago complain ed of mild abdominal pain bilateral was otherwise within normal limits. Patient states that he had been taking her medications for A. fib and was supposed to resume Xarelto 1 day after surgery. Review of systems otherwise negative. Chest x-ray showed no acute cardia pulmonary process and EKG showed A. fib with RVR. Patient was given 2 boluses of IV Cardizem 10 mg which slowed down her heart rate into the low 100s. Bradycardia documentation, patient recently been taken off digoxin due to toxicity and issues with bradycardia and was currently on propranolol which she states she is been taken. She has been admitted to be managed for A. fib with RVR. [] Past Medical History Past Medical History (Chronic Problems): Chronic Problems (Last Reviewed 01/22/18 @ 13:02 by Shanel Ceballos) Abdominal pain (Chronic) ABDULLAHI (obstructive sleep apnea) (Chronic) Tobacco dependence due to cigarettes (Chronic) Non-compliance (Chronic) Hypersomnia (Chronic) Anemia (Chronic) Normocytic HTN (hypertension) (Chronic) Morbid obesity with BMI of 40.0-44.9, adult (Chronic) COPD (chronic obstructive pulmonary disease) (Chronic) Chronic pain (Chronic) Chronic atrial fibrillation (Chronic) Chronic hypoxemic respiratory failure (Chronic) non-compliant with oxygen Hyperlipemia (Chronic) Type 2 diabetes mellitus (Chronic) uncontrolled GERD (gastroesophageal reflux disease) (Chronic) Anxiety (Chronic) Insomnia (Chronic) Medical History: Medical History (Last Reviewed 01/22/18 @ 13:02 by Shanel Ceballos) Hypersomnia (Chronic) G47.10 Anemia (Chronic) D64.9 Normocytic HTN (hypertension) (Chronic) I10 Morbid obesity with BMI of 40.0-44.9, adult (Chronic) E66.01, Z68.41 COPD (chronic obstructive pulmonary disease) (Chronic) J44.9 Chronic pain (Chronic) G89.29 Chronic atrial fibrillation (Chronic) I48.2 Chronic hypoxemic respiratory failure (Chronic) J96.11 non-compliant with oxygen Hyperlipemia (Chronic) E78.5 Type 2 diabetes mellitus (Chronic) E11.9 uncontrolled GERD (gastroesophageal reflux disease) (Chronic) K21.9 Anxiety (Chronic) F41.9 Insomnia (Chronic) G47.00 Osteoporosis M81.0 Cardiomyopathy (Ruled-out) I42.9 EF in Oct 2015 45-50 Left ankle pain (Inactive) M25.572 Non-compliance (Inactive) Z91.19 withn follow up with pulmonary Allergies venom-honey bee [bee venom (honey bee)] Allergy (Verified 02/07/18 18:46) Swelling levofloxacin [From Levaquin] Adverse Reaction (Verified 02/07/18 18:46) Nausea oxycodone HCl [From Percocet] Adverse Reaction (Verified 02/07/18 18:46) Nausea Penicillins Adverse Reaction (Verified 02/07/18 18:46) Nausea/Vom/Diarrhea Home Medications: Ambulatory Orders Medication Instructions Recorded Albuterol Aerosols [Ventolin 2.5 mg INHALATION 4X/DAY 05/12/17 Aerosols] Atorvastatin Calcium [Lipitor] 40 mg PO QHS 05/12/17 Budesonide/Formoterol 160/4.5 2 puff INHALATION BID 05/12/17 [Symbicort 160/4.5 Mcg Inhaler (SP)] Bupropion HCl [Bupropion HCl Sr] 150 mg PO BID 05/12/17 Glucagon,Human Recombinant 1 mg IM PRN PRN 05/12/17 [Glucagon Emergency Kit] Ipratropium/Albuterol Sulfate 3 ml INHALATION Q6H PRN 05/12/17 [Duoneb] Propranolol HCl [Inderal (Beta 10 mg PO BID 05/12/17 Rubén)] Sennosides/Docusate Sodium 2 tab PO DAILY PRN PRN 05/12/17 [Senna-Docusate Sodium Tablet] Mag Hydrox/Al Hydrox/Simeth 30 ml PO Q6H PRN PRN 08/11/17 [Mylanta II] docusate sodium 100 mg capsule 100 mg PO QHS 09/01/17 Rivaroxaban [Xarelto] 20 mg PO DAILY #0 11/03/17 Calcium Carbonate [Tums] 500 mg PO Q6H PRN PRN 11/20/17 Benzonatate [Tessalon [place]] 100 mg PO TID PRN PRN 12/23/17 Bisacodyl [Dulcolax] 10 mg RECTAL QHS PRN 12/23/17 Duloxetine HCl 60 mg PO DAILY 12/23/17 Furosemide [Lasix] 40 mg PO BIDLX 12/23/17 Gabapentin [Neurontin] 100 mg PO TIDCM 12/23/17 Guaifenesin [Mucinex] 1,200 mg PO BID PRN 12/23/17 Loperamide [Imodium] 2 mg PO PRN PRN 12/23/17 Polyethylene Glycol 3350 [Miralax] 17 gm PO DAILY 12/23/17 Acetaminophen 650 mg PO PRN PRN 12/25/17 Insulin Glargine,Hum.rec.anlog 20 unit SQ QHS 12/25/17 [Basaglar Kwikpen U-100] Ondansetron HCl [Zofran] 4 mg PO Q6H PRN PRN 12/25/17 Pantoprazole Sodium [Protonix] 40 mg PO DAILY #0 tab 01/17/18 Albuterol Aerosols [Ventolin 2.5 mg INHALATION Q6HWA.RT PRN 02/01/18 Aerosols] Insulin Lispro [Humalog KwikPen] See Protocol SUBCUT ACHS #0 02/04/18 insuln.pen Potassium Chloride [K-Dur] 20 meq PO DAILY #30 tab 02/04/18 Hydrocodone/Acetaminophen [[place] 1 each PO Q6H PRN PRN 02/07/18 5-325 Tablet] Surgical History: Surgical History (Last Reviewed 01/22/18 @ 13:02 by Shanel Ceballos) Cataract extraction status Z98.49 History of lumbar surgery Z98.890 History of tonsillectomy and adenoidectomy Z98.890 History of total hysterectomy Z90.710 Surgical History: cholecystectomy - 5 days ago, hysterectomy, tonsillectomy, - - Lumbar surgery. Psychiatric History: Anxiety, Depression DEVELOPMENT EXPERT History: No pertinent DEVELOPMENT EXPERT history [place]: [place] Smoking Status: Former smoker Alcohol: None Drugs: None - *Family History Maternal Family History: Family History (Last Reviewed 01/22/18 @ 13:02 by Shanel Ceballos) Sister Arthritis Diabetes Father Cancer Aunt Diabetes History Items: - - She reports that she is unaware of what her mother's health history was like Paternal Family History: Family History (Last Reviewed 01/22/18 @ 13:02 by Shanel Ceballos) Sister Arthritis Diabetes Father Cancer Aunt Diabetes History Items: Cancer, - - father with throat cancer. Sibling Family History: Family History (Last Reviewed 01/22/18 @ 13:02 by Shanel Ceballos) Sister Arthritis Diabetes Father Cancer Aunt Diabetes History Items: Asthma, COPD, Hypertension Review of Systems Constitutional: Denies: Chills, Fever, Malaise, Weakness, Weight Change, Fatigue Eyes: Denies: Blurred vision HEENT: Denies: Head Aches, Sinus Congestion, Sinus Drainage Cardiovascular: Denies: Chest Pain, Chest Pressure, Chest Tightness, Edema, Heaviness, Light Headedness, Orthopnea, Palpitations, Paroxysmal Noc. Dyspnea Respiratory: Denies: Cough, Shortness of Breath, Shortness of breath at rest, Shortness of breath upon exertion, Sputum production Gastrointestinal: Reports: Abdominal Pain - at site of surgery. Denies: Diar roberta, Nausea, Vomiting Genitourinary: Reports: Dysuria Musculoskeletal: Denies: Joint Pain, Joint Tenderness Skin: Denies: Rash, Wounds Neurological: Denies: Numbness, Tingling, Focal weakness Psychiatric: Denies: Anxiety, Depression, Homicidal Ideations, Suicidal Ideations Hematologic/ Lymphatic: Denies: Easy Bruising, Easy Bleeding VTE Information - Inpt Only VTE Present on Admission: No VTE Pharm Prophylaxis ordered?: Yes - Physical Exam General: Alert, Oriented x3, Cooperative, No apparent distress HEENT: Atraumatic, PERRLA, EOMI, Normocephalic Oral: Moist Mucosa Neck: Supple, No JVD, Negative Carotid Bruits Lungs: Clear to auscultation, Normal air movement, No rhonchi, No wheeze, No rales Cardiovascular: Normal S1, Normal S2, No murmurs, Irregular Rate - and rhythm Abdomen: Bowel Sounds Present, Soft, Non-Distended, - - mild tenderness at laparoscopic sites; surgical site clean, no erythema or discharge Extremities: No clubbing, No cyanosis, No edema, Capillary Refill Less than 3 Seconds Skin: No rashes, No breakdown Musculoskeletal: No Tenderness to Palpation of Joints or Extremities Lymphatic: No Cervical, Supraclavicular, or Inguinal Adenopathy Neurological: Cranial nerves II-XII grossly intact, Neuro grossly intact, Motor Exam 5/5 strength throughout Psych/Mental Status: Flat Affect, Alert and oriented to time, place, person, mood and affect Vital Signs Temp Pulse Resp BP Pulse Ox 98.4 F 115 H 20 H 95/58 L 97 02/08/18 00:00 02/08/18 00:00 02/08/18 00:00 02/08/18 00:00 02/08/18 00:00 Oxygen Delivery Method Room Air Weight: 192 lb 14.472 oz Body Mass Index (BMI) 36.4 Finger Stick Blood Glucose 159 Laboratory Tests Past 24 Hrs 02/07/18 02/07/18 02/07/18 21:11 21:11 22:30 WBC 10.1 RBC 4.10 L Hgb 11.4 L Hct 36.4 L MCV 88.8 MCH 27.8 MCHC 31.3 L RDW 18.2 H RDW Differential 57.7 H Plt Count 191 MPV 12.3 H Sodium 142 Potassium 4.1 Chloride 103 Carbon Dioxide 29.0 Anion Gap 10 BUN 14 Creatinine 0.77 Estim Creat Clear Calc 57.16 Est GFR (MDRD) Af Amer 97 Est GFR (MDRD) Non-Af 81 BUN/Creatinine Ratio 18.2 Glucose 165 H Calcium 8.4 L Total Bilirubin 0.30 AST 17 ALT 17 Alkaline Phosphatase 107 Troponin I < 0.015 Total Protein 5.9 L Albumin 2.4 L Globulin 3.5 Albumin/Globulin Ratio 0.7 L Lipase 67 L Urine Color Yellow Urine Clarity Clear Urine pH 8.0 Ur Specific [place] 1.015 Urine Protein Negative Urine Glucose (UA) Normal Urine Ketones Negative Urine Occult Blood Negative Urine Nitrite Negative Urine Bilirubin Negative Urine Urobilinogen Normal Ur Leukocyte Esterase Negative Urine RBC 0 SEEN Urine WBC 0 SEEN Ur Squamous Epith Cells 0 SEEN Urine Bacteria 0 SEEN Hyaline Casts 0-5 SEEN Urine Mucus 0 SEEN POC Glucose 02/07/18 21:30 POC Glucose 159 H Diagnostic Data Chest X-Ray 02/07/18 20:45 IMPRESSION: Calcified plaques of the aortic arch. No acute cardiopulmonary disease process is seen. Chest findings are stable in the interval. Electronically Signed: Ryan Garrett MD at 21:09 EST , Service support , Assessment/Plan All Active Problems (Last Reviewed 01/22/18 @ 13:02 by Shanel Ceballos) Bradycardia (Acute) Digoxin toxicity (Acute) Cholecystitis (Acute) Acute encephalopathy (Acute) Acute kidney injury (Acute) HCAP (healthcare-associated pneumonia) (Acute) Acute and chronic respiratory failure with hypoxia (Resolved) Acute bronchitis due to human metapneumovirus (Resolved) Atrial fibrillation with RVR (Resolved) COPD with acute exacerbation (Resolved) Gram-negative pneumonia (Resolved) Syncope (Resolved) Cardiomyopathy (Ruled-out) 62 year-old admitted with a complaint of hypotension and developed A. fib with RVR in the ED. 1. Afib with RVR * known patient with Afib. Recently taken off her digoxin due to bradycardia and concerns with toxicity * Heart rate was in the 120s in the ED. Received 2 doses of IV Cardizem bolus 20mg * on propranolol 10mg bid; claims compliance. Will titrate dose to get better HR control * check mg and TSH * on xarelto * 2. Recent cholecystectomy: today is POD 5. stable. No evidence of infection. 3. Diabetes mellitus: Basal at 20 units nightly and insulin sliding scale. Accu-Cheks AC at bedtime. 4. Hypertension: Was brought in on account of hypotension and blood pressure noted to be on the 90s. Resolved with demonstration of IV fluid in the ED. 5. COPD: on braething treatments with duonebs. 6. Hyperlipidemia: on statin DVT prophylaxis: on xarelto Code Visit OBSV E&M: [id number] Initial observation care L3
[2018-02-08] MEDS: Propranolol 10 MG Tablet 20 MG PO ×3 (02:15→21:29)
[2018-02-08 02:26] LABS: Bedside Glucose 116 mg/dL (70-110)
[2018-02-08 05:59] LABS: Absolute Lymphocyte Count 2.71 X10^3/ul (0.83-4.51); Absolute Neutrophil Count 6.3 X10^3/uL (2.0-7.7); Basophil# 0.05 X10^3/uL; Basophil% 0.5 % (0-1); Eosinophil# 0.37 X10^3/uL; Eosinophils% 3.7 % (0-5); Hematocrit 32.9 % (37-47); Hemoglobin 10.1 g/dl (12.0-15.0); Lymphocyte # 2.71 X10^3/ul (4.0); Lymphocyte % 26.8 % (19-41); Mean Corp Hgb Conc 30.7 g/gl (32-36); Mean Corpuscular Hgb 27.2 pg (27.0-32.0); Mean Corpuscular Volume 88.7 fL (81-99); Mean Platelet Vol. 12.3 fl (6.2-12.0); Monocyte# 0.68 X10^3/uL; Monocyte% 6.7 % (0-10); Neutrophil # 6.29 X10^3/uL (2.7-7.7); Neutrophil % 62.1 % (47-70); Platelet Count 229 K/mm3 (150-450); RBC Distribution Width CV 18.2 % (11.6-14.6); RBC Distribution Width SD 57.9 fl (35.1-43.9); Red Blood Count 3.71 M/mm3 (4.2-5.4); White Blood Count 10.1 K/mm3 (4.4-11.0)
[2018-02-08 06:01] LABS: POSITIVE COUNT NO; POSITIVE DIFFERENTIAL NO; POSITIVE MORPHOLOGY NO
[2018-02-08 06:22] LABS: Anion Gap 7 (5-15); BUN 11 mg/dL (7-18); BUN/Creat Ratio 16.8 RATIO (10-20); Calcium,Total 7.9 mg/dL (8.5-10.1); Chloride 106 mmol/L (98-107); Creatinine, Serum 0.66 mg/dL (0.55-1.02); EST Glomerular Filtration Rate 97 mL/min (>60); Est Glom Filt Rate - Afr Amer 117 mL/min (>60); Estimated Creatinine Clearance 66.69 ml/min; Glucose 140 mg/dL (74-106); Potassium 3.8 mmol/L (3.5-5.1); Sodium Level 143 mmol/L (136-145)
[2018-02-08] MEDS: Budesonide Respules 0.5 MG/2 ML AMPUL.NEB. INHALATION ×2 (06:59→19:26)
[2018-02-08 07:01] LABS: Bedside Glucose 125 mg/dL (70-110)
[2018-02-08 08:52] LABS: Magnesium 1.6 mg/dL (1.6-2.6)
[2018-02-08] MEDS: DULoxetine Hcl 60 MG Capsule PO (09:38)
[2018-02-08] MEDS: Furosemide 40 MG Tablet PO ×2 (09:38→17:32)
[2018-02-08] MEDS: buPROPion (SR) 150 MG Tablet.SA PO ×2 (09:38→21:30)
[2018-02-08] MEDS: Pantoprazole Sodium 40 MG Tablet PO (09:39)
[2018-02-08] MEDS: Rivaroxaban 20 MG Tablet PO (09:42)
[2018-02-08] MEDS: HYDROcodone Bitartrate/Apap 5/325 Tablet PO ×2 (10:47→17:35)
[2018-02-08] MEDS: Ipratropium/Albuterol Sulfate 3 ML AMPUL.NEB INHALATION (11:05)
[2018-02-08 11:21] LABS: Bedside Glucose 101 mg/dL (70-110)
--- NOTE | 2018-02-08 12:31 | CASEMGMT ---
Patient is a [place] resident of [place]. SW faxed [place] updates. Green sheet on chart in the event patient is ready tomorrow. Plan: d/c back to [place] under intermediate level of care Briana DAHL MSW
--- NOTE | 2018-02-08 13:14 | PCM.PN.HOSP ---
Subjective: Patient was seen and examined. Her HR is better controlled now. Denies chest pain, dizziness or palpitations. Vitals/I&O's: Vital Signs Temp Pulse Resp BP Pulse Ox 97.6 F L 81 20 H 97/79 93 02/08/18 09:27 02/08/18 11:05 02/08/18 11:05 02/08/18 09:27 02/08/18 11:05 Oxygen Flow Rate (L/min) 2 Oxygen Delivery Method Room Air Weight: 84.7 kg Body Mass Index (BMI) 35.2 Finger Stick Blood Glucose 159 Intake and Output for Last 24 Hours 02/06/18 02/07/18 02/08/18 23:59 23:59 23:59 Intake Total 221 / 221 Balance 221 / 221 General: Alert, Oriented x3, Cooperative, No apparent distress HEENT: Atraumatic, PERRLA, EOMI, Normocephalic Oral: Moist Mucosa Neck: Supple, No JVD, Negative Carotid Bruits Lungs: Clear to auscultation, Normal air movement Cardiovascular: Regular rate, Regular Rhythm, Normal S1, Normal S2, No murmurs Abdomen: Bowel Sounds Present, Soft, Non Tender, Non-Distended, No Hepato-splenomegaly Extremities: No edema Skin: No rashes, No breakdown Musculoskeletal: No Tenderness to Palpation of Joints or Extremities Lymphatic: No Cervical, Supraclavicular, or Inguinal Adenopathy Neurological: Cranial nerves II-XII grossly intact, Neuro grossly intact Psych/Mental Status: Normal Affect, Appropriate Laboratory Results 02/07/18 21:11: WBC 10.1, RBC 4.10 L, Hgb 11.4 L, Hct 36.4 L, MCV 88.8, MCH 27.8, MCHC 31.3 L, RDW 18.2 H, RDW Differential 57.7 H, Plt Count 191, MPV 12.3 H 02/07/18 21:11: Sodium 142, Potassium 4.1, Chloride 103, Carbon Dioxide 29.0, Anion Gap 10, BUN 14, Creatinine 0.77, Estim Creat Clear Calc 57.16, Est GFR (MDRD) Af Amer 97, Est GFR (MDRD) Non-Af 81, BUN/Creatinine Ratio 18.2, Glucose 165 H, Calcium 8.4 L, Total Bilirubin 0.30, AST 17, ALT 17, Alkaline Phosphatase 107, Troponin I < 0.015, Total Protein 5.9 L, Albumin 2.4 L, Globulin 3.5, Albumin/Globulin Ratio 0.7 L, Lipase 67 L 02/07/18 21:30: POC Glucose 159 H 02/07/18 22:30: Urine Color Yellow, Urine Clarity Clear, Urine pH 8.0, Ur Specific [place] 1.015, Urine Protein Negative, Urine Glucose (UA) Normal, Urine Ketones Negative, Urine Occult Blood Negative, Urine Nitrite Negative, Urine Bilirubin Negative, Urine Urobilinogen Normal, Ur Leukocyte Esterase Negative, Urine RBC 0 SEEN, Urine WBC 0 SEEN, Ur Squamous Epith Cells 0 SEEN, Urine Bacteria 0 SEEN, Hyaline Casts 0-5 SEEN, Urine Mucus 0 SEEN 02/08/18 02:17: POC Glucose 116 H 02/08/18 05:34: Magnesium 1.6 02/08/18 05:34: WBC 10.1, RBC 3.71 L, Hgb 10.1 L, Hct 32.9 L, MCV 88.7, MCH 27.2, MCHC 30.7 L, RDW 18.2 H, RDW Differential 57.9 H, Plt Count 229, MPV 12.3 H, Immature Gran % (Auto) 0.200, Neut % (Auto) 62.1, Lymph % (Auto) 26.8, [place] % (Auto) 6.7, Eos % (Auto) 3.7, Baso % (Auto) 0.5, Absolute Neuts (auto) 6.3, Absolute Lymphs (auto) 2.71, Total Counted Not Reportable 02/08/18 05:34: Sodium 143, Potassium 3.8, Chloride 106, Carbon Dioxide 30.0, Anion Gap 7, BUN 11, Creatinine 0.66, Estim Creat Clear Calc 66.69, Est GFR (MDRD) Af Amer 117, Est GFR (MDRD) Non-Af 97, BUN/Creatinine Ratio 16.8, Glucose 140 H, Calcium 7.9 L 02/08/18 06:54: POC Glucose 125 H 02/08/18 11:17: POC Glucose 101 Current Medications Acetaminophen (Tylenol) 650 mg PO PRN PRN PRN Reason: PAIN Hydrocodone Bitart/Acetaminophen ([place] 5mg-325mg) 1 tablet PO Q6H PRN PRN PRN Reason: PAIN Last Admin: 02/08/18 10:47 Dose: 1 tablet Al Hydroxide/Mg Hydroxide (Mylanta Ii) 30 ml PO Q6H PRN PRN PRN Reason: DYSPEPSIA/INDIGESTION Albuterol Sulfate (Ventolin Aerosols) 2.5 mg INHALATION Q6HWA.RT PRN PRN Reason: SOB &/OR WHEEZING Albuterol/Ipratropium (Duoneb) 3 ml INHALATION Q6H PRN PRN Reason: SOB &/OR WHEEZING Last Admin: 02/08/18 11:05 Dose: 3 ml Atorvastatin Calcium (Lipitor) 40 mg PO QHS MARYANN Benzonatate (Tessalon Perle) 100 mg PO TID PRN PRN PRN Reason: COUGH Bisacodyl (Dulcolax) 10 mg RECTAL QHS PRN PRN Reason: Constipation Budesonide (Pulmicort Aerosol) 0.5 mg INHALATION Q12H.RT MARYANN Last Admin: 02/08/18 06:59 Dose: 0.5 mg Bupropion HCl (Wellbutrin Sr (150mg Tablets)) 150 mg PO BID MARYANN Last Admin: 02/08/18 09:38 Dose: 150 mg Calcium Carbonate (Tums) 500 mg PO Q6H PRN PRN PRN Reason: HEART BURN Dextrose (D50w Syringe) 0 gm IV X1 PRN; Protocol PRN Reason: Hypoglycemia Docusate Sodium (Colace) 100 mg PO QHS MARYANN Duloxetine HCl (Cymbalta) 60 mg PO DAILY MARYANN Last Admin: 02/08/18 09:38 Dose: 60 mg Furosemide (Lasix) 40 mg PO BIDLX MARYANN Last Admin: 02/08/18 09:38 Dose: 40 mg Glucagon () 1 mg IM .X1 PRN PRN Reason: Hypoglycemia Guaifenesin (Mucinex) 1,200 mg PO BID PRN PRN PRN Reason: CHEST CONGESTION/SECRETIONS Insulin Glargine (Lantus (Bkc)) 20 units SC QHS MARYANN Insulin Human Lispro (Humalog Kwikpen (Bkc)) 0 unit SQ ACHS MARYANN; Protocol Last Admin: 02/08/18 12:20 Dose: Not Given Loperamide HCl (Imodium) 2 mg PO PRN PRN PRN Reason: Diarrhea Magnesium Hydroxide (Milk Of Magnesia) 30 ml PO DAILY PRN PRN PRN Reason: Constipation Ondansetron HCl (Zofran Odt) 4 mg PO Q8H PRN PRN PRN Reason: NAUSEA/VOMITING Pantoprazole Sodium (Protonix) 40 mg PO DAILY [facility] Last Admin: 02/08/18 09:39 Dose: 40 mg Polyethylene Glycol (Miralax) 17 gm PO DAILY [facility] Last Admin: 02/08/18 09:40 Dose: Not Given Potassium Chloride (K-Dur) 20 meq PO DAILY [facility] Last Admin: 02/08/18 09:38 Dose: 20 meq Propranolol HCl (Inderal) 20 mg PO BID [facility] Last Admin: 02/08/18 09:39 Dose: 20 mg Rivaroxaban (Xarelto) 20 mg PO DAILY [facility] Last Admin: 02/08/18 09:42 Dose: 20 mg Senna/Docusate Sodium (Senokot-S, Estefania-Colace) 1 tablet PO DAILY PRN PRN PRN Reason: Constipation Medical Necessity - Tobacco Use Smoking Status: Former smoker Assessment/Plan All Active Problems (Last Reviewed 01/22/18 @ 13:02 by Shanel Ceballos) Bradycardia (Acute) Digoxin toxicity (Acute) Cholecystitis (Acute) Acute encephalopathy (Acute) Acute kidney injury (Acute) HCAP (healthcare-associated pneumonia) (Acute) Acute and chronic respiratory failure with hypoxia (Resolved) Acute bronchitis due to human metapneumovirus (Resolved) Atrial fibrillation with RVR (Resolved) COPD with acute exacerbation (Resolved) Gram-negative pneumonia (Resolved) Syncope (Resolved) Cardiomyopathy (Ruled-out) 62 year-old female with PMHx of chronic atrial fibrillation, hypertension, recently s/p cholecystectomy admitted with a complaint of hypotension and developed A. fib with RVR in the ED. 1. Afib with RVR, better controlled now, recently taken off her digoxin due to bradycardia and concerns with toxicity, on propranolol, HR is better controlled. 2. Hypomagnesemia, replaced, recheck in am 3. Recent s/p cholecystectomy, stable. 4. Diabetes mellitus, type 2, BS are stable, will continue on Lantus, ISS and insulin sliding scale. 5. Hypertension, controlled, running slightly low, will continue to monitor. 6. COPD, stable, on breathing treatments 7. Hyperlipidemia, on statin 8. DVT prophylaxis - on xarelto Code Visit Inpatient E&M: [id number] Subs Hosp L2
--- NOTE | 2018-02-08 13:22 | PN_ITS ---
Subjective: Patient was seen and examined. Her HR is better controlled now. Denies chest pain, dizziness or palpitations. Vitals/I&O's: Vital Signs Temp Pulse Resp BP Pulse Ox 97.6 F L 81 20 H 97/79 93 02/08/18 09:27 02/08/18 11:05 02/08/18 11:05 02/08/18 09:27 02/08/18 11:05 Oxygen Flow Rate (L/min) 2 Oxygen Delivery Method Room Air Weight: 84.7 kg Body Mass Index (BMI) 35.2 Finger Stick Blood Glucose 159 Intake and Output for Last 24 Hours 02/06/18 02/07/18 02/08/18 23:59 23:59 23:59 Intake Total 221 / 221 Balance 221 / 221 General: Alert, Oriented x3, Cooperative, No apparent distress HEENT: Atraumatic, PERRLA, EOMI, Normocephalic Oral: Moist Mucosa Neck: Supple, No JVD, Negative Carotid Bruits Lungs: Clear to auscultation, Normal air movement Cardiovascular: Regular rate, Regular Rhythm, Normal S1, Normal S2, No murmurs Abdomen: Bowel Sounds Present, Soft, Non Tender, Non-Distended, No Hepato- splenomegaly Extremities: No edema Skin: No rashes, No breakdown Musculoskeletal: No Tenderness to Palpation of Joints or Extremities Lymphatic: No Cervical, Supraclavicular, or Inguinal Adenopathy Neurological: Cranial nerves II-XII grossly intact, Neuro grossly intact Psych/Mental Status: Normal Affect, Appropriate Laboratory Results 02/07/18 21:11: WBC 10.1, RBC 4.10 L, Hgb 11.4 L, Hct 36.4 L, MCV 88.8, MCH 27.8, MCHC 31.3 L, RDW 18.2 H, RDW Differential 57.7 H, Plt Count 191, MPV 12.3 H 02/07/18 21:11: Sodium 142, Potassium 4.1, Chloride 103, Carbon Dioxide 29.0, Anion Gap 10, BUN 14, Creatinine 0.77, Estim Creat Clear Calc 57.16, Est GFR (MDRD) Af Amer 97, Est GFR (MDRD) Non-Af 81, BUN/Creatinine Ratio 18.2, Glucose 165 H, Calcium 8.4 L, Total Bilirubin 0.30, AST 17, ALT 17, Alkaline Phosphatase 107, Troponin I < 0.015, Total Protein 5.9 L, Albumin 2.4 L, Globulin 3.5, Albumin/Globulin Ratio 0.7 L, Lipase 67 L 02/07/18 21:30: POC Glucose 159 H 02/07/18 22:30: Urine Color Yellow, Urine Clarity Clear, Urine pH 8.0, Ur Specific [place] 1.015, Urine Protein Negative, Urine Glucose (UA) Normal, Urine Ketones Negative, Urine Occult Blood Negative, Urine Nitrite Negative, Urine Bilirubin Negative, Urine Urobilinogen Normal, Ur Leukocyte Esterase Negative, Urine RBC 0 SEEN, Urine WBC 0 SEEN, Ur Squamous Epith Cells 0 SEEN, Urine Bacteria 0 SEEN, Hyaline Casts 0-5 SEEN, Urine Mucus 0 SEEN 02/08/18 02:17: POC Glucose 116 H 02/08/18 05:34: Magnesium 1.6 02/08/18 05:34: WBC 10.1, RBC 3.71 L, Hgb 10.1 L, Hct 32.9 L, MCV 88.7, MCH 27.2, MCHC 30.7 L, RDW 18.2 H, RDW Differential 57.9 H, Plt Count 229, MPV 12.3 H, Immature Gran % (Auto) 0.200, Neut % (Auto) 62.1, Lymph % (Auto) 26.8, [place] % (Auto) 6.7, Eos % (Auto) 3.7, Baso % (Auto) 0.5, Absolute Neuts (auto) 6.3, Absolute Lymphs (auto) 2.71, Total Counted Not Reportable 02/08/18 05:34: Sodium 143, Potassium 3.8, Chloride 106, Carbon Dioxide 30.0, Anion Gap 7, BUN 11, Creatinine 0.66, Estim Creat Clear Calc 66.69, Est GFR ( RD) Af Amer 117, Est GFR (MDRD) Non-Af 97, BUN/Creatinine Ratio 16.8, Glucose 140 H, Calcium 7.9 L 02/08/18 06:54: POC Glucose 125 H 02/08/18 11:17: POC Glucose 101 Current Medications Acetaminophen (Tylenol) 650 mg PO PRN PRN PRN Reason: PAIN Hydrocodone Bitart/Acetaminophen ([place] 5mg-325mg) 1 tablet PO Q6H PRN PRN PRN Reason: PAIN Last Admin: 02/08/18 10:47 Dose: 1 tablet Al Hydroxide/Mg Hydroxide (Mylanta Ii) 30 ml PO Q6H PRN PRN PRN Reason: DYSPEPSIA/INDIGESTION Albuterol Sulfate (Ventolin Aerosols) 2.5 mg INHALATION Q6HWA.RT PRN PRN Reason: SOB &/OR WHEEZING Albuterol/Ipratropium (Duoneb) 3 ml INHALATION Q6H PRN PRN Reason: SOB &/OR WHEEZING Last Admin: 02/08/18 11:05 Dose: 3 ml Atorvastatin Calcium (Lipitor) 40 mg PO QHS MARYANN Benzonatate (Tessalon Perle) 100 mg PO TID PRN PRN PRN Reason: COUGH Bisacodyl (Dulcolax) 10 mg RECTAL QHS PRN PRN Reason: Constipation Budesonide (Pulmicort Aerosol) 0.5 mg INHALATION Q12H.RT MARYANN Last Admin: 02/08/18 06:59 Dose: 0.5 mg Bupropion HCl (Wellbutrin Sr (150mg Tablets)) 150 mg PO BID MARYANN Last Admin: 02/08/18 09:38 Dose: 150 mg Calcium Carbonate (Tums) 500 mg PO Q6H PRN PRN PRN Reason: HEART BURN Dextrose (D50w Syringe) 0 gm IV X1 PRN; Protocol PRN Reason: Hypoglycemia Docusate Sodium (Colace) 100 mg PO QHS MARYANN Duloxetine HCl (Cymbalta) 60 mg PO DAILY MARYANN Last Admin: 02/08/18 09:38 Dose: 60 mg Furosemide (Lasix) 40 mg PO BIDLX MARYANN Last Admin: 02/08/18 09:38 Dose: 40 mg Glucagon () 1 mg IM .X1 PRN PRN Reason: Hypoglycemia Guaifenesin (Mucinex) 1,200 mg PO BID PRN PRN PRN Reason: CHEST CONGESTION/SECRETIONS Insulin Glargine (Lantus (Bkc)) 20 units SC QHS MARYANN Insulin Human Lispro (Humalog Kwikpen (Bkc)) 0 unit SQ ACHS MRAYANN; Protocol Last Admin: 02/08/18 12:20 Dose: Not Given Loperamide HCl (Imodium) 2 mg PO PRN PRN PRN Reason: Diarrhea Magnesium Hydroxide (Milk Of Magnesia) 30 ml PO DAILY PRN PRN PRN Reason: Constipation Ondansetron HCl (Zofran Odt) 4 mg PO Q8H PRN PRN PRN Reason: NAUSEA/VOMITING Pantoprazole Sodium (Protonix) 40 mg PO DAILY [facility] Last Admin: 02/08/18 09:39 Dose: 40 mg Polyethylene Glycol (Miralax) 17 gm PO DAILY [facility] Last Admin: 02/08/18 09:40 Dose: Not Given Potassium Chloride (K-Dur) 20 meq PO DAILY [facility] Last Admin: 02/08/18 09:38 Dose: 20 meq Propranolol HCl (Inderal) 20 mg PO BID [facility] Last Admin: 02/08/18 09:39 Dose: 20 mg Rivaroxaban (Xarelto) 20 mg PO DAILY [facility] Last Admin: 02/08/18 09:42 Dose: 20 mg Senna/Docusate Sodium (Senokot-S, Estefania-Colace) 1 tablet PO DAILY PRN PRN PRN Reason: Constipation Medical Necessity - Tobacco Use Smoking Status: Former smoker Assessment/Plan All Active Problems (Last Reviewed 01/22/18 @ 13:02 by Shanel Ceballos) Bradycardia (Acute) Digoxin toxicity (Acute) Cholecystitis (Acute) Acute encephalopathy (Acute) Acute kidney injury (Acute) HCAP (healthcare-associated pneumonia) (Acute) Acute and chronic respiratory failure with hypoxia (Resolved) Acute bronchitis due to human metapneumovirus (Resolved) Atrial fibrillation with RVR (Resolved) COPD with acute exacerbation (Resolved) Gram-negative pneumonia (Resolved) Syncope (Resolved) Cardiomyopathy (Ruled-out) 62 year-old female with PMHx of chronic atrial fibrillation, hypertension, recently s/p cholecystectomy admitted with a complaint of hypotension and developed A. fib with RVR in the ED. 1. Afib with RVR, better controlled now, recently taken off her digoxin due to bradycardia and concerns with toxicity, on propranolol, HR is better controlled. 2. Hypomagnesemia, replaced, recheck in am 3. Recent s/p cholecystectomy, stable. 4. Diabetes mellitus, type 2, BS are stable, will continue on Lantus, ISS and insulin sliding scale. 5. Hypertension, controlled, running slightly low, will continue to monitor. 6. COPD, stable, on breathing treatments 7. Hyperlipidemia, on statin 8. DVT prophylaxis - on xarelto Code Visit Inpatient E&M: [id number] Subs Hosp L2
[2018-02-08 16:36] LABS: Bedside Glucose 117 mg/dL (70-110)
[2018-02-08] MEDS: Magnesium Oxide 400 MG Tablet PO (17:31)
[2018-02-08] MEDS: Atorvastatin Calcium 40 MG Tablet PO (21:30)
[2018-02-08] MEDS: Docusate Sodium 100 MG Capsule PO (21:30)
[2018-02-08 21:50] LABS: Bedside Glucose 119 mg/dL (70-110)
[2018-02-09 02:37] VITALS: BP 94/55; PULSE 86; RESP 18; TEMP 36.4; O2SAT 97
[2018-02-09 03:01] VITALS: PULSE 84
[2018-02-09 06:50] VITALS: O2SAT 98
[2018-02-09 06:59] LABS: Magnesium 1.5 mg/dL (1.6-2.6)
[2018-02-09 07:28] VITALS: PULSE 87
[2018-02-09 07:36] LABS: Bedside Glucose 58 mg/dL (70-110)
[2018-02-09 07:36] LABS: Bedside Glucose 76 mg/dL (70-110)
--- NOTE | 2018-02-09 08:47 | PCM.TXEXTCAR ---
- Diet 02/08/18 01:20 Diet: Calorie Controlled Food consistency:: Regular How many daily calories?: 1800 calorie - Routine Orders/Code Status O2 Liters per Minute: 2L O2 Frequency: at night Keep PO Greater than or Equal to (%): 92 Routine Lab Work: CBC - within 3 days, BMP - within 3 days - Wound(s) left cheek Wound Type: Abrasion coccyx Wound Type: Pressure Injury abdomen Wound Type: Surgical Incision - Therapies Physical Therapy: Eval and Treat Occupational Therapy: Eval and Treat - Allergies/Procedures Done in Hospital Allergies/Adverse Reactions: Allergies venom-honey bee [bee venom (honey bee)] Allergy (Verified 02/07/18 18:46) Swelling levofloxacin [From Levaquin] Adverse Reaction (Verified 02/07/18 18:46) Nausea oxycodone HCl [From Percocet] Adverse Reaction (Verified 02/07/18 18:46) Nausea Penicillins Adverse Reaction (Verified 02/07/18 18:46) Nausea/Vom/Diarrhea Procedures: None - Type of Care/Length of Stay Estimated LOS: Convalescent Care Less Than 30 days Type of Care Needed: Skilled Rehab Potential: Good Prognosis: Good - Additional Orders/Day of Discharge Day of Discharge: 02/09/18 - Dietary and Speech Recommendations Dietitian Recommendations/Changes: Suggest diet change to 1800 chantelle/cardiac/low sodium. - Follow Up Care Primary Care Physician: Camden Burger [Primary Care Provider] - Please follow up with your Primary Care Physician in: within 2 weeks of discharge
--- NOTE | 2018-02-09 08:48 | DS.PCM_ITS ---
Discharge Date and Diagnosis Date of Admission: 02/08/18 Date of Discharge: 02/09/18 - Primary Discharge Diagnosis A. fib with RVR Hypomagnesemia - Secondary Discharge Diagnosis Chronic Problems (Last Reviewed 01/22/18 @ 13:02 by Shanel Ceballos) Abdominal pain (Chronic) ABDULLAHI (obstructive sleep apnea) (Chronic) Tobacco dependence due to cigarettes (Chronic) Non-compliance (Chronic) Hypersomnia (Chronic) Anemia (Chronic) Normocytic HTN (hypertension) (Chronic) Morbid obesity with BMI of 40.0-44.9, adult (Chronic) COPD (chronic obstructive pulmonary disease) (Chronic) Chronic pain (Chronic) Chronic atrial fibrillation (Chronic) Chronic hypoxemic respiratory failure (Chronic) non-compliant with oxygen Hyperlipemia (Chronic) Type 2 diabetes mellitus (Chronic) uncontrolled GERD (gastroesophageal reflux disease) (Chronic) Anxiety (Chronic) Insomnia (Chronic) Hospital Course and Treatment Imaging Results: Clinical Impression(s) from Imaging Studies Chest X-Ray 02/07/18 20:45 IMPRESSION: Calcified plaques of the aortic arch. No acute cardiopulmonary disease process is seen. Chest findings are stable in the interval. Electronically Signed: Ryan Garrett MD at 21:09 EST , Service support , None Operations: None Procedures: None Summary of Care Provided: 62 year-old female with PMHx of chronic atrial fibrillation, hypertension, recently s/p cholecystectomy admitted with a complaint of hypotension and developed A. fib with RVR in the ED. 1. Afib with RVR, was on propranolol, controlled with an increased dose of propranolol 20 mg p.o. twice daily, Patient has a recent history of digitalis toxicity. She was admitted recently with bradycardia and taken off Cardizem and digoxin. Heart rate was better controlled during this admission. She is on Xarelto. 2. Hypomagnesemia, replaced 3. Recent s/p cholecystectomy, stable, will follow with general surgery in the outpatient 4. Diabetes mellitus, type 2, BS are stable, discharged on home Lantus. 5. Hypertension, controlled. 6. COPD, stable 7. Hyperlipidemia, on statin Subjective: The of discharge, she felt improved. Denied any fever or chills or shortness of breath. Objective: General: Alert, Oriented x3, Cooperative, No apparent distress, obese HEENT: Atraumatic, PERRLA, EOMI, Normocephalic Oral: Moist Mucosa Neck: Supple, No JVD, Negative Carotid Bruits Lungs: Clear to auscultation, Normal air movement Cardiovascular: Regular rate, Regular Rhythm, Normal S1, Normal S2, No murmurs Abdomen: Bowel Sounds Present, Soft, Non Tender, Non-Distended, No Hepato- splenomegaly Extremities: No edema Skin: No rashes, No breakdown Musculoskeletal: No Tenderness to Palpation of Joints or Extremities Lymphatic: No Cervical, Supraclavicular, or Inguinal Adenopathy Neurological: Cranial nerves II-XII grossly intact, Neuro grossly intact Psych/Mental Status: Normal Affect, Appropriate - Physical Exam Vital Signs Temp Pulse Resp BP Pulse Ox 97.5 F L 87 18 94/55 L 98 02/09/18 02:37 02/09/18 07:28 02/09/18 02:37 02/09/18 02:37 02/09/18 06:50 Oxygen Flow Rate (L/min) 2 Oxygen Delivery Method Nasal Cannula Weight: 84.7 kg Body Mass Index (BMI) 35.2 Finger Stick Blood Glucose 159 Intake and Output for Last 24 Hours 02/07/18 02/08/18 02/09/18 23:59 23:59 23:59 Intake Total 461 / 461 Output Total 300 / 300 Balance 161 / 161 Laboratory Tests Past 24 Hrs 02/08/18 02/09/18 05:34 05:58 Magnesium 1.6 1.5 L POC Glucose 02/09/18 02/09/18 02/08/18 07:27 06:53 21:21 POC Glucose 76 58 L 119 H 02/08/18 02/08/18 16:29 11:17 POC Glucose 117 H 101 Discharge Diet: Low fat/ Low Cholesterol, 2000 mg Sodium Diet, Carb Control Diet Discharge Activity: Return to Normal Activity Home Medications: Medications to take at Discharge Albuterol Aerosols [Ventolin Aerosols] 2.5 mg INHALATION 4X/DAY 05/12/17 Atorvastatin Calcium [Lipitor] 40 mg PO QHS 05/12/17 Budesonide/Formoterol 160/4.5 [Symbicort 160/4.5 Mcg Inhaler (SP)] 2 puff INHALATION BID 05/12/17 Bupropion HCl [Bupropion HCl Sr] 150 mg PO BID 05/12/17 Glucagon,Human Recombinant [Glucagon Emergency Kit] 1 mg IM PRN PRN 05/12/17 Ipratropium/Albuterol Sulfate [Duoneb] 3 ml INHALATION Q6H PRN 05/12/17 Sennosides/Docusate Sodium [Senna-Docusate Sodium Tablet] 2 tab PO DAILY PRN PRN 05/12/17 Mag Hydrox/Al Hydrox/Simeth [Mylanta II] 30 ml PO Q6H PRN PRN 08/11/17 docusate sodium 100 mg capsule 100 mg PO QHS 09/01/17 Rivaroxaban [Xarelto] 20 mg PO DAILY #0 11/03/17 Calcium Carbonate [Tums] 500 mg PO Q6H PRN PRN 11/20/17 Benzonatate [Tessalon Perle] 100 mg PO TID PRN PRN 12/23/17 Bisacodyl [Dulcolax] 10 mg RECTAL QHS PRN 12/23/17 Duloxetine HCl 60 mg PO DAILY 12/23/17 Furosemide [Lasix] 40 mg PO BIDLX 12/23/17 Gabapentin [Neurontin] 100 mg PO TIDCM 12/23/17 Guaifenesin [Mucinex] 1,200 mg PO BID PRN 12/23/17 Loperamide [Imodium] 2 mg PO PRN PRN 12/23/17 Polyethylene Glycol 3350 [Miralax] 17 gm PO DAILY 12/23/17 Acetaminophen 650 mg PO PRN PRN 12/25/17 Ondansetron HCl [Zofran] 4 mg PO Q6H PRN PRN 12/25/17 Pantoprazole Sodium [Protonix] 40 mg PO DAILY #0 tab 01/17/18 Albuterol Aerosols [Ventolin Aerosols] 2.5 mg INHALATION Q6HWA.RT PRN 02/01/18 Insulin Lispro [Humalog KwikPen] See Protocol SUBCUT ACHS #0 insuln.pen 02/04/18 Potassium Chloride [K-Dur] 20 meq PO DAILY #30 tab 02/04/18 Hydrocodone/Acetaminophen [[place] 5-325 Tablet] 1 each PO Q6H PRN PRN 02/07/18 Insulin Glargine [Lantus SoloStar Pen] 18 units SC QHS pen 02/09/18 Magnesium Oxide [Mag-Ox 400] 400 mg PO BIDCM tablet 02/09/18 Propranolol HCl [Inderal (Beta Rubén)] 20 mg PO BID tablet 02/09/18 Primary Care Physician: Camden Burger [Primary Care Provider] - Please follow up with your Primary Care Physician in: within 2 weeks of discharge Disposition: Senior Care facility Minutes spent on discharge:: 40 Patient Condition:: Stable Medical Necessity - Tobacco Use Smoking Status: Former smoker Tobacco Use: Non-smoker Meaningful Use Info Meaningful Use Diagnoses (Choose all that apply): None applicable Code Visit OBSV E&M: 64817 Observation care discharge
[2018-02-09 08:55] VITALS: BP 105/51; PULSE 98; RESP 17; TEMP 36.6; O2SAT 95
[2018-02-09] MEDS: buPROPion (SR) 150 MG Tablet.SA PO (09:00)
[2018-02-09] MEDS: Magnesium Oxide 400 MG Tablet PO (09:00)
[2018-02-09] MEDS: Furosemide 40 MG Tablet PO (09:01)
[2018-02-09] MEDS: Pantoprazole Sodium 40 MG Tablet PO (09:01)
[2018-02-09] MEDS: Propranolol 10 MG Tablet 20 MG PO (09:01)
[2018-02-09] MEDS: DULoxetine Hcl 60 MG Capsule PO (09:01)
[2018-02-09] MEDS: Rivaroxaban 20 MG Tablet PO (09:01)
[2018-02-09] MEDS: HYDROcodone Bitartrate/Apap 5/325 Tablet PO (09:06)
--- NOTE | 2018-02-09 09:26 | PCA ---
faxed discharge paperwork to [facility]. Called [facility] to transport. Attempted to notify sister Desiree, but no answer and voice mail is not set up.
--- NOTE | 2018-02-09 10:17 | NURSING ---
Reporet called to milli Dickey
== END 2018-02-09 10:13 | disposition intermediate care facility (04) | DRG 201 ==
LOC: ED 20:29 → PCU 02-08 01:04
PROVIDERS: Admitting Provider Student in an Organized Health Care Education/Training Program; Emergency Provider Emergency Medicine; Family Provider Family Medicine; PCP Family Medicine; Visit Provider Internal Medicine
DX: I48.2 Chronic atrial fibrillation (principal); E83.42 Hypomagnesemia; E78.5 Hyperlipidemia, unspecified; G47.33 Obstructive sleep apnea (adult) (pediatric); K21.9 Gastro-esophageal reflux disease without esophagitis; G47.00 Insomnia, unspecified; F41.9 Anxiety disorder, unspecified; E11.65 Type 2 diabetes mellitus with hyperglycemia; Z90.49 Acquired absence of other specified parts of digestive tract; Z99.81 Dependence on supplemental oxygen; Z79.899 Other long term (current) drug therapy; Z79.4 Long term (current) use of insulin; Z79.01 Long term (current) use of anticoagulants; Z87.891 Personal history of nicotine dependence; J96.11 Chronic respiratory failure with hypoxia; D64.9 Anemia, unspecified; G89.29 Other chronic pain
CPT/HCPCS: 36415; 71045; 80048; 80053; 81001; 82962; 83690; 83735; 84484; 85025; 85027; 93005; 94640; 97802; 99285; 99406; J7030; A4216; J2405

== ENCOUNTER 2018-06-08 14:04 | Inpatient (IN) | payer MEDICAID, SELFPAY ==
[2018-06-08] VITALS (15 sets, daily range): BP systolic 112–128; BP diastolic 55–98; PULSE 101–145; RESP 18–24; TEMP 36.1–36.7; O2SAT 93–100; BMI 38.9; BMI 39.1; BMI 35.3
--- NOTE | 2018-06-08 14:40 | EKG12_ITS ---
Test Reason : SOB Blood Pressure : / mmHG Vent. Rate : 117 BPM Atrial Rate : 147 BPM P-R Int : 000 ms QRS Dur : 094 ms QT Int : 332 ms P-R-T Axes : 000 068 -44 degrees QTc Int : 463 ms Atrial fibrillation with rapid ventricular response Incomplete right bundle branch block Septal infarct (cited on or before 07-FEB-2018), age undetermined Abnormal ECG Confirmed by AMANDA LOMBARDI ([id number]), material expeditor SUZANNE WRIGHT ([id number]) on 06/10/2018 10:54:45 AM Referred By: RALPH/EDGAR Confirmed By:AMANDA LOMBARDI
--- NOTE | 2018-06-08 14:45 | RAD_ITS ---
STUDY: X-RAY CHEST REASON FOR EXAM: Female, 62 years old. Shortness of breath TECHNIQUE: Single AP portable view of the chest. COMPARISON: Chest x-ray 02/07/2018 FINDINGS: There is hyperinflation of the lungs consistent with chronic obstructive lung disease (COPD). The lungs are clear. There is no demonstrated pleural abnormality. Normal size heart. Normal mediastinum and sangeeta. Normal visualized pulmonary arteries. Normal visualized aortic arch and descending thoracic aorta. Normal visualized thoracic spine. Normal visualized ribs, clavicles, and shoulders. There is no demonstrated abnormality of the visualized soft tissue structures of the upper abdomen. RAD/Chest 1 View (Portable) IMPRESSION: COPD. The lungs are clear. Electronically Signed: Lashanda Hernandez, at 15:10 EDT Tel , Service support ,
[2018-06-08] MEDS: Ipratropium/Albuterol Sulfate 3 ML AMPUL.NEB INHALATION ×2 (15:00→20:30)
[2018-06-08] MEDS: MethylPREDNISolone 125 MG/2 ML Vial IV (15:03)
[2018-06-08 15:10] LABS: Absolute Lymphocyte Count 3.23 X10^3/ul (0.83-4.51); Basophil# 0.05 X10^3/uL; Basophil% 0.5 % (0-1); Eosinophil# 0.48 X10^3/uL; Hemoglobin 11.1 g/dl (12.0-15.0); Lymphocyte # 3.23 X10^3/ul (4.0); Lymphocyte % 33.4 % (19-41); Mean Corp Hgb Conc 30.8 g/gl (32-36); Mean Corpuscular Hgb 25.5 pg (27.0-32.0); Mean Corpuscular Volume 82.8 fL (81-99); Mean Platelet Vol. 11.2 fl (6.2-12.0); Monocyte# 0.87 X10^3/uL; Neutrophil # 5.02 X10^3/uL (2.7-7.7); Neutrophil % 51.9 % (47-70); Platelet Count 231 K/mm3 (150-450); RBC Distribution Width CV 16.3 % (11.6-14.6); RBC Distribution Width SD 49.3 fl (35.1-43.9); Red Blood Count 4.35 M/mm3 (4.2-5.4); White Blood Count 9.7 K/mm3 (4.4-11.0)
[2018-06-08] MEDS: Albuterol 2.5 MG/3 ML VIAL.NEB. INHALATION (15:13)
[2018-06-08 15:27] LABS: Anion Gap 1 (5-15); BUN 19 mg/dL (7-18); BUN/Creat Ratio 30.2 RATIO (10-20); Calcium,Total 8.6 mg/dL (8.5-10.1); Chloride 106 mmol/L (98-107); Creatinine, Serum 0.63 mg/dL (0.55-1.02); EST Glomerular Filtration Rate 102 mL/min (>60); Est Glom Filt Rate - Afr Amer 123 mL/min (>60); Estimated Creatinine Clearance 69.87 ml/min; Glucose 118 mg/dL (74-106); POSITIVE COUNT NO; POSITIVE DIFFERENTIAL NO; POSITIVE MORPHOLOGY NO; Potassium 4.5 mmol/L (3.5-5.1); Sodium Level 140 mmol/L (136-145)
--- NOTE | 2018-06-08 16:20 | ED.VISSUMM ---
- ER Visit Summary Date of Service: 06/08/18 Chief Complaint: Shortness of breath History of Present Illness: The patient is a 62 F who presents with shortness of breath that has been getting worse over the past 2 days. Patient states her breathing is worse with any exertion and with laying flat. Patient admits to subjective fevers and sweats yesterday but denies any fevers today. Patient states she has been having a cough but denies any sputum production. She denies any chest pain. Patient denies any nausea or vomiting. She denies any abdominal pain. Physical Examination: Vital signs are stable except for tachypnea of 24. Patient is afebrile. Patient is in no acute distress. Oral mucosa is pink and moist. Neck is supple. Trachea is midline. There is no JVD noted.. Soft heart was irregularly irregular. Lungs showed diffuse expiratory wheezing. There is good respiratory effort noted. There are no retractions noted. Abdomen is soft and nontender. Cranial nerves II through XII are intact. There are no focal motor or sensory deficits noted. Test Results: Portable chest x-ray was obtained. There is COPD but no acute infiltrate. EKG showed atrial fibrillation with a rate of 117. There are no acute ST or T wave changes. There is an incomplete right bundle branch block which is unchanged compared to previous EKG dated 02/07/2018. CBC shows a normal white blood cell count. Hemoglobin was 11.1 and hematocrit was 36.0. Basic metabolic profile was essentially within normal limits. Troponin was normal. Emergency Department Course and Treatment: Patient was given a DuoNeb aerosol followed by an albuterol aerosol. Patient was given Solu-Medrol 125 mg IV. Patient was feeling better on reevaluation. Case was discussed with Dr. Esposito, hospitalist and she will admit the patient to her service for COPD exacerbation. Disposition: Admit to hospital Impression: COPD exacerbation This note was generated with [employer] dictation software. It may contain incorrect words, spelling, and punctuation that were not noted in review of the chart prior to signing ED Disposition - Plan for ED Patient: Disposition: Acute Care Hospital [facility] Diagnosis: COPD (chronic obstructive pulmonary disease) Referrals: Camden Burger [Primary Care Provider] -
--- NOTE | 2018-06-08 16:24 | ED.DCSUM_ITS ---
- ER Visit Summary Date of Service: 06/08/18 Chief Complaint: Shortness of breath History of Present Illness: The patient is a 62 F who presents with shortness of breath that has been getting worse over the past 2 days. Patient states her breathing is worse with any exertion and with laying flat. Patient admits to subjective fevers and sweats yesterday but denies any fevers today. Patient states she has been having a cough but denies any sputum production. She denies any chest pain. Patient denies any nausea or vomiting. She denies any abdominal pain. Physical Examination: Vital signs are stable except for tachypnea of 24. Patient is afebrile. Patient is in no acute distress. Oral mucosa is pink and moist. Neck is supple. Trachea is midline. There is no JVD noted.. Soft heart was irregularly irregular. Lungs showed diffuse expiratory wheezing. There is good respiratory effort noted. There are no retractions noted. Abdomen is soft and nontender. Cranial nerves II through XII are intact. There are no focal motor or sensory deficits noted. Test Results: Portable chest x-ray was obtained. There is COPD but no acute infiltrate. EKG showed atrial fibrillation with a rate of 117. There are no acute ST or T wave changes. There is an incomplete right bundle branch block which is unchanged compared to previous EKG dated 02/07/2018. CBC shows a normal white blood cell count. Hemoglobin was 11.1 and hematocrit was 36.0. Basic metabolic profile was essentially within normal limits. Troponin was normal. Emergency Department Course and Treatment: Patient was given a DuoNeb aerosol f ollowed by an albuterol aerosol. Patient was given Solu-Medrol 125 mg IV. Patient was feeling better on reevaluation. Case was discussed with Dr. Esposito, hospitalist and she will admit the patient to her service for COPD exacerbation. Disposition: Admit to hospital Impression: COPD exacerbation This note was generated with [employer] dictation software. It may contain incorrect words, spelling, and punctuation that were not noted in review of the chart prior to signing ED Disposition - Plan for ED Patient: Disposition: Acute Care Hospital [facility] Diagnosis: COPD (chronic obstructive pulmonary disease) Referrals: Camden Burger [Primary Care Provider] -
--- NOTE | 2018-06-08 16:43 | PCM.HP.STD ---
Problem List (1) COPD with acute exacerbation Status: Acute (2) Essential hypertension Status: Chronic (3) Chronic atrial fibrillation Status: Chronic (4) Hyperlipemia Status: Chronic Qualifiers: (5) Type 2 diabetes mellitus Status: Chronic Qualifiers: Comment: uncontrolled (6) GERD (gastroesophageal reflux disease) Status: Chronic Qualifiers: History of Present Illness Date of Admission: 06/08/18 Chief Complaint: SOB The patient is a 62 year old F with past medical history of COPD, ongoing nicotine abuse smokes 6 cigarettes/day, chronic hypoxic respiratory failure on 2-3 L of oxygen nightly, chronic atrial fibrillation, type 2 diabetes, hypertension, hyperlipidemia, who presented the emergency room with worsening of shortness of breath over the last 2 days. She has become very wheezy, is short of breath at rest and with exertion. Has a nonproductive cough, reports chills at her care home where she lives permanently. She is also had a week of diarrhea. Denies muscle and body aches. In the ER she has a negative chest x-ray, no leukocytosis, no fever, increased CO2 on BMP. Decreased anion gap. Negative lactate and troponin. She appears to be in acute COPD exacerbation. [] Past Medical History Past Medical History (Chronic Problems): Chronic Problems (Last Reviewed 06/08/18 @ 13:43 by Marylu Howell NP-C) Essential hypertension (Chronic) Abdominal pain (Chronic) ABDULLAHI (obstructive sleep apnea) (Chronic) Tobacco dependence due to cigarettes (Chronic) Non-compliance (Chronic) Hypersomnia (Chronic) Anemia (Chronic) Normocytic Morbid obesity with BMI of 40.0-44.9, adult (Chronic) COPD (chronic obstructive pulmonary disease) (Chronic) Chronic pain (Chronic) Chronic atrial fibrillation (Chronic) Chronic hypoxemic respiratory failure (Chronic) non-compliant with oxygen Hyperlipemia (Chronic) Type 2 diabetes mellitus (Chronic) uncontrolled GERD (gastroesophageal reflux disease) (Chronic) Anxiety (Chronic) Insomnia (Chronic) Medical History: Medical History (Last Reviewed 06/08/18 @ 13:43 by Marylu Howell NP-C) Essential hypertension (Chronic) I10 Hypersomnia (Chronic) G47.10 Anemia (Chronic) D64.9 Normocytic Morbid obesity with BMI of 40.0-44.9, adult (Chronic) E66.01, Z68.41 COPD (chronic obstructive pulmonary disease) (Chronic) J44.9 Chronic pain (Chronic) G89.29 Chronic atrial fibrillation (Chronic) I48.2 Chronic hypoxemic respiratory failure (Chronic) J96.11 non-compliant with oxygen Hyperlipemia (Chronic) E78.5 Type 2 diabetes mellitus (Chronic) E11.9 uncontrolled GERD (gastroesophageal reflux disease) (Chronic) K21.9 Anxiety (Chronic) F41.9 Insomnia (Chronic) G47.00 Osteoporosis M81.0 Cardiomyopathy (Ruled-out) I42.9 EF in Oct 2015 45-50 HTN (hypertension) (Inactive) I10 Left ankle pain (Inactive) M25.572 Non-compliance (Inactive) Z91.19 withn follow up with pulmonary Allergies venom-honey bee [bee venom (honey bee)] Allergy (Verified 06/08/18 14:05) Swelling levofloxacin [From Levaquin] Adverse Reaction (Verified 06/08/18 14:05) Nausea oxycodone HCl [From Percocet] Adverse Reaction (Verified 06/08/18 14:05) Nausea Penicillins Adverse Reaction (Verified 06/08/18 14:05) Nausea/Vom/Diarrhea Home Medications: Ambulatory Orders Medication Instructions Recorded Budesonide/Formoterol 160/4.5 2 puff INHALATION BID 05/12/17 [Symbicort 160/4.5 Mcg Inhaler (SP)] Bupropion HCl [Bupropion HCl Sr] 150 mg PO BID 05/12/17 docusate sodium 100 mg capsule 100 mg PO QHS 09/01/17 Rivaroxaban [Xarelto] 20 mg PO DAILY #0 11/03/17 Duloxetine HCl 60 mg PO DAILY 12/23/17 Gabapentin [Neurontin] 100 mg PO TIDCM 12/23/17 Loperamide [Imodium] 2 mg PO PRN PRN 12/23/17 Polyethylene Glycol 3350 [Miralax] 17 gm PO DAILY 12/23/17 Albuterol Aerosols [Ventolin 2.5 mg INHALATION Q6HWA.RT PRN 02/01/18 Aerosols] Potassium Chloride [K-Dur] 20 meq PO DAILY #30 tab 02/04/18 Hydrocodone/Acetaminophen [[place] 1 tab PO Q6H PRN PRN 02/07/18 5-325 Tablet] Furosemide [Lasix] 40 mg PO DAILY 06/08/18 Magnesium Oxide [Mag-Ox 400] 400 mg PO BIDCM 06/08/18 Oxybutynin Chloride [Oxybutynin 5 mg PO DAILY 06/08/18 Chloride ER] Pantoprazole Sodium [Protonix] 40 mg PO DAILY 06/08/18 Primidone 50 mg PO BID 06/08/18 Propranolol HCl 20 mg PO TID 06/08/18 Talc/Cellulos/Chloroxy/Aldioxa 71 gm TP BID 06/08/18 [Zeasorb Powder] ferrous fumarate 325 mg (106 mg 325 mg PO DAILY tab 06/08/18 iron) tablet furosemide 20 mg tablet 20 mg PO DAILY tab 06/08/18 lorazepam 0.5 mg tablet 0.5 mg PO DAILY tab 06/08/18 lorazepam 0.5 mg tablet 0.5 mg PO Q6H PRN tab 06/08/18 rosuvastatin 20 mg tablet 20 mg PO QHS 06/08/18 Surgical History: Surgical History (Last Reviewed 06/08/18 @ 13:43 by FRANKLIN Philippe) S/P laparoscopic cholecystectomy Z90.49 / Cataract extraction status Z98.49 History of lumbar surgery Z98.890 History of tonsillectomy and adenoidectomy Z98.890 History of total hysterectomy Z90.710 Surgical History: cholecystectomy - 5 days ago, hysterectomy, tonsillectomy, - - Lumbar surgery. 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 Sibling Family History: Family History (Last Reviewed 06/08/18 @ 13:43 by FRANKLIN Philippe) Sister Arthritis Diabetes Father Cancer Aunt Diabetes History Items: Asthma, COPD, Hypertension Review of Systems Constitutional: Reports: Chills. Denies: Fever, Weight Change HEENT: Denies: Head Aches, Sinus Congestion, Sinus Drainage Cardiovascular: Denies: Chest Pain, Chest Pressure, Chest Tightness, Heaviness, Light Headedness, Palpitations, Paroxysmal Noc. Dyspnea Respiratory: Reports: Cough, Shortness of Breath, Shortness of breath at rest, Shortness of breath upon exertion, Wheezing. Denies: Pleuritic Pain, Sputum production Gastrointestinal: Reports: Diarrhea. Denies: Abdominal Pain, Nausea, Vomiting Genitourinary: Denies: Dysuria Musculoskeletal: Denies: Joint Pain, Joint Tenderness Skin: Denies: Rash, Wounds Neurological: Denies: Numbness, Tingling, Focal weakness Psychiatric: Denies: Anxiety, Depression, Homicidal Ideations, Suicidal Ideations Hematologic/ Lymphatic: Denies: Easy Bruising, Easy Bleeding VTE Information - Inpt Only VTE Present on Admission: No VTE Mechan Device Prophylaxis: None VTE Pharm Prophylaxis ordered?: Yes Patient Problems: Active and Suspected Problems (Last Reviewed 06/08/18 @ 13:43 by Marylu Howell NP-C) COPD with acute exacerbation (Acute) - Physical Exam General: Alert, Oriented x3, Cooperative, - - Conversational dyspnea HEENT: Atraumatic, PERRLA, EOMI, Normocephalic Neck: Supple, No JVD, Negative Carotid Bruits Lungs: Diminished, Wheezes Cardiovascular: No murmurs, Irregular Rate, Tachycardic Abdomen: Bowel Sounds Present, Soft, Non Tender, Obese Extremities: No edema, Capillary Refill Less than 3 Seconds Skin: No rashes, No breakdown Musculoskeletal: No Tenderness to Palpation of Joints or Extremities Neurological: Cranial nerves II-XII grossly intact Psych/Mental Status: Normal Affect, Appropriate, Alert and oriented to time, place, person, mood and affect Vital Signs Temp Pulse Resp BP Pulse Ox 97.9 F 119 H 19 H 123/98 H 99 06/08/18 16:00 06/08/18 16:00 06/08/18 16:00 06/08/18 16:00 06/08/18 16:00 Oxygen Flow Rate (L/min) 2 Oxygen Delivery Method Nasal Cannula Weight: 207 lb Body Mass Index (BMI) 39.1 Finger Stick Blood Glucose 159 Laboratory Tests Past 24 Hrs 06/08/18 06/08/18 06/08/18 14:50 14:50 14:50 WBC 9.7 RBC 4.35 Hgb 11.1 L Hct 36.0 L MCV 82.8 MCH 25.5 L MCHC 30.8 L RDW 16.3 H RDW Differential 49.3 H Plt Count 231 MPV 11.2 Immature Gran % (Auto) 0.200 Neut % (Auto) 51.9 Lymph % (Auto) 33.4 [place] % (Auto) 9.0 Eos % (Auto) 5.0 Baso % (Auto) 0.5 Absolute Neuts (auto) 5.0 Absolute Lymphs (auto) 3.23 Total Counted Not Reportable Sodium 140 Potassium 4.5 Chloride 106 Carbon Dioxide 33.0 H Anion Gap 1 L BUN 19 H Creatinine 0.63 Estim Creat Clear Calc 69.87 Est GFR (MDRD) Af Amer 123 Est GFR (MDRD) Non-Af 102 BUN/Creatinine Ratio 30.2 H Glucose 118 H Lactic Acid 1.0 Calcium 8.6 Troponin I < 0.015 Assessment/Plan All Active Problems (Last Reviewed 06/08/18 @ 13:43 by Marylu Howell, THANG-C) COPD with acute exacerbation (Acute) Bradycardia (Resolved) Digoxin toxicity (Acute) Cholecystitis (Acute) Acute encephalopathy (Acute) Acute kidney injury (Acute) HCAP (healthcare-associated pneumonia) (Acute) Acute and chronic respiratory failure with hypoxia (Resolved) Acute bronchitis due to human metapneumovirus (Resolved) Atrial fibrillation with RVR (Resolved) COPD with acute exacerbation (Resolved) Gram-negative pneumonia (Resolved) Syncope (Resolved) Cardiomyopathy (Ruled-out) 1. Acute COPD exacerbation with chronic hypoxic respiratory failure-currently stable on 2 L. Very wheezy on exam. Negative chest x-ray. No fever or leukocytosis. Has a nonproductive cough. Also has had diarrhea for the past 5 days. Suspect viral syndrome. Continue aerosols, Solu-Medrol, incentive spirometer. Obtain respiratory viral panel. Negative trop, lactate. Obtain ABG. -Pt of Dr. Chong. 2. Chronic atrial fibrillation-tachycardic in the 110 range. Recently here with RVR. Will monitor on telemetry. Continue propranolol and Xarelto. 3. Type 2 diabetes-sliding scale and insulin. 4. GERD-on PPI 6. History of CAD, cardiomyopathy, systolic heart failure-continue home medications. She does not appear to have an exacerbation of CHF. 7. 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 Continue home psychiatric medications DVT prophylaxis: Xarelto Discharge planning: return to ECF once stabilized. This patient was seen by Brian Hinojosa PA-C under the supervision of Dr. Esposito
--- NOTE | 2018-06-08 16:47 | HP.PCM_ITS ---
Problem List (1) COPD with acute exacerbation Status: Acute (2) Essential hypertension Status: Chronic (3) Chronic atrial fibrillation Status: Chronic (4) Hyperlipemia Status: Chronic Qualifiers: (5) Type 2 diabetes mellitus Status: Chronic Qualifiers: Comment: uncontrolled (6) GERD (gastroesophageal reflux disease) Status: Chronic Qualifiers: History of Present Illness Date of Admission: 06/08/18 Chief Complaint: SOB The patient is a 62 year old F with past medical history of COPD, ongoing nicotine abuse smokes 6 cigarettes/day, chronic hypoxic respiratory failure on 2-3 L of oxygen nightly, chronic atrial fibrillation, type 2 diabetes, hypertension, hyperlipidemia, who presented the emergency room with worsening of shortness of breath over the last 2 days. She has become very wheezy, is short of breath at rest and with exertion. Has a nonproductive cough, reports chills at her custodial where she lives permanently. She is also had a week of diarrhea. Denies muscle and body aches. In the ER she has a negative chest x- ray, no leukocytosis, no fever, increased CO2 on BMP. Decreased anion gap. Negative lactate and troponin. She appears to be in acute COPD exacerbation. [] Past Medical History Past Medical History (Chronic Problems): Chronic Problems (Last Reviewed 06/08/18 @ 13:43 by Marylu Howell NP-C) Essential hypertension (Chronic) Abdominal pain (Chronic) ABDULLAHI (obstructive sleep apnea) (Chronic) Tobacco dependence due to cigarettes (Chronic) Non-compliance (Chronic) Hypersomnia (Chronic) Anemia (Chronic) Normocytic Morbid obesity with BMI of 40.0-44.9, adult (Chronic) COPD (chronic obstructive pulmonary disease) (Chronic) Chronic pain (Chronic) Chronic atrial fibrillation (Chronic) Chronic hypoxemic respiratory failure (Chronic) non-compliant with oxygen Hyperlipemia (Chronic) Type 2 diabetes mellitus (Chronic) uncontrolled GERD (gastroesophageal reflux disease) (Chronic) Anxiety (Chronic) Insomnia (Chronic) Medical History: Medical History (Last Reviewed 06/08/18 @ 13:43 by Marylu Howell NP-C) Essential hypertension (Chronic) I10 Hypersomnia (Chronic) G47.10 Anemia (Chronic) D64.9 Normocytic Morbid obesity with BMI of 40.0-44.9, adult (Chronic) E66.01, Z68.41 COPD (chronic obstructive pulmonary disease) (Chronic) J44.9 Chronic pain (Chronic) G89.29 Chronic atrial fibrillation (Chronic) I48.2 Chronic hypoxemic respiratory failure (Chronic) J96.11 non-compliant with oxygen Hyperlipemia (Chronic) E78.5 Type 2 diabetes mellitus (Chronic) E11.9 uncontrolled GERD (gastroesophageal reflux disease) (Chronic) K21.9 Anxiety (Chronic) F41.9 Insomnia (Chronic) G47.00 Osteoporosis M81.0 Cardiomyopathy (Ruled-out) I42.9 EF in Oct 2015 45-50 HTN (hypertension) (Inactive) I10 Left ankle pain (Inactive) M25.572 Non-compliance (Inactive) Z91.19 withn follow up with pulmonary Allergies venom-honey bee [bee venom (honey bee)] Allergy (Verified 06/08/18 14:05) Swelling levofloxacin [From Levaquin] Adverse Reaction (Verified 06/08/18 14:05) Nausea oxycodone HCl [From Percocet] Adverse Reaction (Verified 06/08/18 14:05) Nausea Penicillins Adverse Reaction (Verified 06/08/18 14:05) Nausea/Vom/Diarrhea Home Medications: Ambulatory Orders Medication Instructions Recorded Budesonide/Formoterol 160/4.5 2 puff INHALATION BID 05/12/17 [Symbicort 160/4.5 Mcg Inhaler (SP)] Bupropion HCl [Bupropion HCl Sr] 150 mg PO BID 05/12/17 docusate sodium 100 mg capsule 100 mg PO QHS 09/01/17 Rivaroxaban [Xarelto] 20 mg PO DAILY #0 11/03/17 Duloxetine HCl 60 mg PO DAILY 12/23/17 Gabapentin [Neurontin] 100 mg PO TIDCM 12/23/17 Loperamide [Imodium] 2 mg PO PRN PRN 12/23/17 Polyethylene Glycol 3350 [Miralax] 17 gm PO DAILY 12/23/17 Albuterol Aerosols [Ventolin 2.5 mg INHALATION Q6HWA.RT PRN 02/01/18 Aerosols] Potassium Chloride [K-Dur] 20 meq PO DAILY #30 tab 02/04/18 Hydrocodone/Acetaminophen [[place] 1 tab PO Q6H PRN PRN 02/07/18 5-325 Tablet] Furosemide [Lasix] 40 mg PO DAILY 06/08/18 Magnesium Oxide [Mag-Ox 400] 400 mg PO BIDCM 06/08/18 Oxybutynin Chloride [Oxybutynin 5 mg PO DAILY 06/08/18 Chloride ER] Pantoprazole Sodium [Protonix] 40 mg PO DAILY 06/08/18 Primidone 50 mg PO BID 06/08/18 Propranolol HCl 20 mg PO TID 06/08/18 Talc/Cellulos/Chloroxy/Aldioxa 71 gm TP BID 06/08/18 [Zeasorb Powder] ferrous fumarate 325 mg (106 mg 325 mg PO DAILY tab 06/08/18 iron) tablet furosemide 20 mg tablet 20 mg PO DAILY tab 06/08/18 lorazepam 0.5 mg tablet 0.5 mg PO DAILY tab 06/08/18 lorazepam 0.5 mg tablet 0.5 mg PO Q6H PRN tab 06/08/18 rosuvastatin 20 mg tablet 20 mg PO QHS 06/08/18 Surgical History: Surgical History (Last Reviewed 06/08/18 @ 13:43 by FRANKLIN Philippe) S/P laparoscopic cholecystectomy Z90.49 / Cataract extraction status Z98.49 History of lumbar surgery Z98.890 History of tonsillectomy and adenoidectomy Z98.890 History of total hysterectomy Z90.710 Surgical History: cholecystectomy - 5 days ago, hysterectomy, tonsillectomy, - - Lumbar surgery. 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 Sibling Family History: Family History (Last Reviewed 06/08/18 @ 13:43 by FRANKLIN Philippe) Sister Arthritis Diabetes Father Cancer Aunt Diabetes History Items: Asthma, COPD, Hypertension Review of Systems Constitutional: Reports: Chills. Denies: Fever, Weight Change HEENT: Denies: Head Aches, Sinus Congestion, Sinus Drainage Cardiovascular: Denies: Chest Pain, Chest Pressure, Chest Tightness, Heaviness, Light Headedness, Palpitations, Paroxysmal Noc. Dyspnea Respiratory: Reports: Cough, Shortness of Breath, Shortness of breath at rest, Shortness of breath upon exertion, Wheezing. Denies: Pleuritic Pain, Sputum production Gastrointestinal: Reports: Diarrhea. Denies: Abdominal Pain, Nausea, Vomiting Genitourinary: Denies: Dysuria Musculoskeletal: Denies: Joint Pain, Joint Tenderness Skin: Denies: Rash, Wounds Neurological: Denies: Numbness, Tingling, Focal weakness Psychiatric: Denies: Anxiety, Depression, Homicidal Ideations, Suicidal Ideations Hematologic/ Lymphatic: Denies: Easy Bruising, Easy Bleeding VTE Information - Inpt Only VTE Present on Admission: No VTE Mechan Device Prophylaxis: None VTE Pharm Prophylaxis ordered?: Yes Patient Problems: Active and Suspected Problems (Last Reviewed 06/08/18 @ 13:43 by Marylu Howell NP-C) COPD with acute exacerbation (Acute) - Physical Exam General: Alert, Oriented x3, Cooperative, - - Conversational dyspnea HEENT: Atraumatic, PERRLA, EOMI, Normocephalic Neck: Supple, No JVD, Negative Carotid Bruits Lungs: Diminished, Wheezes Cardiovascular: No murmurs, Irregular Rate, Tachycardic Abdomen: Bowel Sounds Present, Soft, Non Tender, Obese Extremities: No edema, Capillary Refill Less than 3 Seconds Skin: No rashes, No breakdown Musculoskeletal: No Tenderness to Palpation of Joints or Extremities Neurological: Cranial nerves II-XII grossly intact Psych/Mental Status: Normal Affect, Appropriate, Alert and oriented to time, place, person, mood and affect Vital Signs Temp Pulse Resp BP Pulse Ox 97.9 F 119 H 19 H 123/98 H 99 06/08/18 16:00 06/08/18 16:00 06/08/18 16:00 06/08/18 16:00 06/08/18 16:00 Oxygen Flow Rate (L/min) 2 Oxygen Delivery Method Nasal Cannula Weight: 207 lb Body Mass Index (BMI) 39.1 Finger Stick Blood Glucose 159 Laboratory Tests Past 24 Hrs 06/08/18 06/08/18 06/08/18 14:50 14:50 14:50 WBC 9.7 RBC 4.35 Hgb 11.1 L Hct 36.0 L MCV 82.8 MCH 25.5 L MCHC 30.8 L RDW 16.3 H RDW Differential 49.3 H Plt Count 231 MPV 11.2 Immature Gran % (Auto) 0.200 Neut % (Auto) 51.9 Lymph % (Auto) 33.4 [place] % (Auto) 9.0 Eos % (Auto) 5.0 Baso % (Auto) 0.5 Absolute Neuts (auto) 5.0 Absolute Lymphs (auto) 3.23 Total Counted Not Reportable Sodium 140 Potassium 4.5 Chloride 106 Carbon Dioxide 33.0 H Anion Gap 1 L BUN 19 H Creatinine 0.63 Estim Creat Clear Calc 69.87 Est GFR (MDRD) Af Amer 123 Est GFR (MDRD) Non-Af 102 BUN/Creatinine Ratio 30.2 H Glucose 118 H Lactic Acid 1.0 Calcium 8.6 Troponin I < 0.015 Assessment/Plan All Active Problems (Last Reviewed 06/08/18 @ 13:43 by Marylu Howell, THANG-C) COPD with acute exacerbation (Acute) Bradycardia (Resolved) Digoxin toxicity (Acute) Cholecystitis (Acute) Acute encephalopathy (Acute) Acute kidney injury (Acute) HCAP (healthcare-associated pneumonia) (Acute) Acute and chronic respiratory failure with hypoxia (Resolved) Acute bronchitis due to human metapneumovirus (Resolved) Atrial fibrillation with RVR (Resolved) COPD with acute exacerbation (Resolved) Gram-negative pneumonia (Resolved) Syncope (Resolved) Cardiomyopathy (Ruled-out) 1. Acute COPD exacerbation with chronic hypoxic respiratory failure-currently stable on 2 L. Very wheezy on exam. Negative chest x-ray. No fever or leukocytosis. Has a nonproductive cough. Also has had diarrhea for the past 5 days. Suspect viral syndrome. Continue aerosols, Solu-Medrol, incentive spirometer. Obtain respiratory viral panel. Negative trop, lactate. Obtain ABG. -Pt of Dr. Chong. 2. Chronic atrial fibrillation-tachycardic in the 110 range. Recently here with RVR. Will monitor on telemetry. Continue propranolol and Xarelto. 3. Type 2 diabetes-sliding scale and insulin. 4. GERD-on PPI 6. History of CAD, cardiomyopathy, systolic heart failure-continue home medications. She does not appear to have an exacerbation of CHF. 7. 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 Continue home psychiatric medications DVT prophylaxis: Xarelto Discharge planning: return to ECF once stabilized. This patient was seen by Brian Hinojosa PA-C under the supervision of Dr. Esposito
--- NOTE | 2018-06-08 16:58 | CASEMGMT ---
RN CM Assessment Introduced role of RN CM to patient.? Patient is alert, oriented and able?to participate in RN CM Assessment. ?Care providers, pharmacy, and demographics verified. Presentation: SOB and Cough Admit Dx: COPD Exacerbation Re-Admit: No Barriers/Issues: None PCP: Camedn Burger Specialists: Cardio- Dr Mccormick, Pulm- Dr Prasad Preferred Pharmacy: [facility] ([place]) Insurance: Medicaid Rx Benefit: Yes? LNOK: Sister Desiree Doyle LW/HPOA: None, Denies offered information Living Arrangements:? Lives at [facility] ADL?s: WC Bound, Total assist Transportation: TBD DME: Oxygen 3L while in Chair and at night. Nebulizer, WC, Walker- does not use because [place]. HHC: Past SNF: Past- [facility] Goal: Back to [facility] with no anticipated needs identified at this time. ALEXSANDRA Moran DC PLAN:
[2018-06-08 17:24] LABS: Magnesium 2.1 mg/dL (1.6-2.6)
[2018-06-08 17:32] LABS: Bedside Glucose 150 mg/dL (70-110)
[2018-06-08] MEDS: Magnesium Oxide 400 MG Tablet PO (18:05)
[2018-06-08] MEDS: HYDROcodone Bitartrate/Apap 5/325 Tablet PO (18:05)
[2018-06-08] MEDS: Gabapentin 100 MG Capsule PO (18:05)
[2018-06-08] MEDS: Propranolol 10 MG Tablet 20 MG PO (18:53)
[2018-06-08 21:11] LABS: Allen Test POS; Base Excess 2 mmol/L (-2 to +2); Bicarbonate 27.4 mmol/L (22-26); Blood Gas Specimen Type ART; O2 Delivery Device Nasal Can; PO2 94 mmHG (75-100); SITE L Radial; SO2 97 % (95-99); Total Carbon Dioxide 29 mmol/L; pCO2 48.5 mmHg (35-45); pH 7.36 (7.35-7.45)
[2018-06-08] MEDS: Atorvastatin Calcium 40 MG Tablet PO (22:32)
[2018-06-08] MEDS: Primidone 50 MG Tablet PO (22:32)
[2018-06-08] MEDS: Docusate Sodium 100 MG Capsule PO (22:32)
[2018-06-08] MEDS: buPROPion (SR) 150 MG Tablet.SA PO (22:33)
[2018-06-08] MEDS: Menthol/Lanolin/Calamine/Znox 113 GM Tube 1 APPLIC TOPICAL (22:35)
[2018-06-08] MEDS: Glucerna Shake 120 ML LIQUID PO (22:35)
[2018-06-08] MEDS: Insulin Lispro 100 UNIT/ML INSULN.PEN SQ (22:36)
[2018-06-08] MEDS: 0.9% NaCl Peripheral Flush Adult/Peds IV (22:39)
[2018-06-08 22:46] LABS: Bedside Glucose 259 mg/dL (70-110)
[2018-06-08] MEDS: Nystatin Powder 15gm Bottle 1 APPLIC TOPICAL (22:48)
[2018-06-08] MEDS: guaiFENesin 600 MG Tablet 1200 MG PO (22:49)
--- NOTE | 2018-06-08 23:44 | CPS ---
patient refused PAP therapy. patient stated that she can not wear that mask on her face. She stated that it is too much for her.
[2018-06-09] VITALS (13 sets, daily range): BP systolic 101–117; BP diastolic 53–85; PULSE 85–125; RESP 18–20; TEMP 36.3–36.7; O2SAT 96–100
[2018-06-09] MEDS: HYDROcodone Bitartrate/Apap 5/325 Tablet PO ×3 (01:32→19:25)
[2018-06-09] MEDS: Propranolol 10 MG Tablet 20 MG PO ×3 (05:16→21:08)
[2018-06-09] MEDS: 0.9% NaCl Peripheral Flush Adult/Peds IV ×3 (05:16→21:13)
[2018-06-09 06:28] LABS: Absolute Lymphocyte Count 1.18 X10^3/ul (0.83-4.51); Basophil# 0.01 X10^3/uL; Basophil% 0.1 % (0-1); Hematocrit 34.4 % (37-47); Hemoglobin 10.7 g/dl (12.0-15.0); Lymphocyte # 1.18 X10^3/ul (4.0); Lymphocyte % 16.1 % (19-41); Mean Corp Hgb Conc 31.1 g/gl (32-36); Mean Corpuscular Hgb 25.4 pg (27.0-32.0); Mean Corpuscular Volume 81.5 fL (81-99); Mean Platelet Vol. 11.4 fl (6.2-12.0); Monocyte# 0.09 X10^3/uL; Monocyte% 1.2 % (0-10); Neutrophil # 6.04 X10^3/uL (2.7-7.7); Neutrophil % 82.6 % (47-70); Platelet Count 213 K/mm3 (150-450); RBC Distribution Width SD 47.4 fl (35.1-43.9); Red Blood Count 4.22 M/mm3 (4.2-5.4); White Blood Count 7.3 K/mm3 (4.4-11.0)
[2018-06-09 06:29] LABS: POSITIVE COUNT NO; POSITIVE DIFFERENTIAL NO; POSITIVE MORPHOLOGY NO
[2018-06-09] MEDS: Insulin Lispro 100 UNIT/ML INSULN.PEN SQ ×4 (06:31→21:12)
[2018-06-09 06:41] LABS: Bedside Glucose 198 mg/dL (70-110)
[2018-06-09 06:47] LABS: Anion Gap 3 (5-15); BUN 20 mg/dL (7-18); BUN/Creat Ratio 27.6 RATIO (10-20); Calcium,Total 8.6 mg/dL (8.5-10.1); Chloride 104 mmol/L (98-107); Creatinine, Serum 0.72 mg/dL (0.55-1.02); EST Glomerular Filtration Rate 86 mL/min (>60); Est Glom Filt Rate - Afr Amer 105 mL/min (>60); Estimated Creatinine Clearance 61.13 ml/min; Glucose 212 mg/dL (74-106); Potassium 4.8 mmol/L (3.5-5.1); Sodium Level 137 mmol/L (136-145)
[2018-06-09] MEDS: Ipratropium/Albuterol Sulfate 3 ML AMPUL.NEB INHALATION ×4 (06:56→19:34)
[2018-06-09] MEDS: Glucerna Shake 120 ML LIQUID PO ×4 (09:00→21:19)
[2018-06-09] MEDS: Menthol/Lanolin/Calamine/Znox 113 GM Tube 1 APPLIC TOPICAL ×2 (09:01→20:56)
[2018-06-09] MEDS: LORazepam 0.5 MG Tablet PO (09:01)
[2018-06-09] MEDS: Nystatin Powder 15gm Bottle 1 APPLIC TOPICAL ×2 (09:02→21:08)
[2018-06-09] MEDS: Polyethylene Glycol 3350 17 GM PACKET PO (09:06)
[2018-06-09] MEDS: Primidone 50 MG Tablet PO ×2 (09:07→21:08)
[2018-06-09] MEDS: Magnesium Oxide 400 MG Tablet PO ×2 (09:07→16:47)
[2018-06-09] MEDS: Tolterodine Tartrate 2 MG CAP.SA PO (09:07)
[2018-06-09] MEDS: DULoxetine Hcl 60 MG Capsule PO (09:07)
[2018-06-09] MEDS: Pantoprazole Sodium 40 MG Tablet PO (09:07)
[2018-06-09] MEDS: Gabapentin 100 MG Capsule PO ×3 (09:07→16:47)
[2018-06-09] MEDS: buPROPion (SR) 150 MG Tablet.SA PO ×2 (09:07→21:08)
[2018-06-09] MEDS: Furosemide 40 MG Tablet PO (09:07)
--- NOTE | 2018-06-09 09:38 | CASEMGMT ---
[facility] confirmed w/[facility] that pt is from there, pt does still have bedhold days left under Medicaid. [facility] faxed updates, will continue to follow for return to [place] when ready. RON Sosa
[2018-06-09] MEDS: Ferrous Sulfate 325 MG Tablet PO (11:28)
[2018-06-09 11:31] LABS: Bedside Glucose 302 mg/dL (70-110)
--- NOTE | 2018-06-09 16:24 | PN_ITS ---
Patient Problems: Active and Suspected Problems (Last Reviewed 06/08/18 @ 13:43 by Marylu Howell NP-Lian) COPD with acute exacerbation (Acute) Subjective: Pt has had mild improvement since yesterday. Still SOB at rest and with exertion. Still wheezing. She has a nonproductive cough. No fever or chills. No chest pain. She is 100% on 3lpm o2. Baseline is 2-3 lpm. - Physical Exam General: Alert, Oriented x3, Cooperative HEENT: Atraumatic, PERRLA, EOMI, Normocephalic Neck: Supple, No JVD, Negative Carotid Bruits Lungs: Diminished, Wheezes Cardiovascular: Irregular Rate, Tachycardic Abdomen: Bowel Sounds Present, Soft, Non Tender Extremities: No edema, Capillary Refill Less than 3 Seconds Skin: No rashes, No breakdown Musculoskeletal: No Tenderness to Palpation of Joints or Extremities Neurological: Cranial nerves II-XII grossly intact Psych/Mental Status: Normal Affect, Appropriate, Alert and oriented to time, place, person, mood and affect Vital Signs Temp Pulse Resp BP Pulse Ox 98.1 F 104 H 18 102/53 L 100 06/09/18 14:25 06/09/18 14:25 06/09/18 14:25 06/09/18 14:25 06/09/18 14:25 Oxygen Flow Rate (L/min) 2 Oxygen Delivery Method Nasal Cannula Weight: 186 lb 15.232 oz Body Mass Index (BMI) 35.3 Finger Stick Blood Glucose 159 Intake and Output for Last 24 Hours 06/07/18 06/08/18 06/09/18 23:59 23:59 23:59 Intake Total 350 / 350 710 / 710 Balance 350 / 350 710 / 710 Microbiology Past 72 Hours 06/08/18 21:11 Respiratory Panel (PCR) - Final Mucosa - Nasopharyngeal Laboratory Tests Past 24 Hrs 06/08/18 06/08/18 06/09/18 14:50 21:07 06:05 WBC RBC Hgb Hct MCV MCH MCHC RDW RDW Differential Plt Count MPV Immature Gran % (Auto) Neut % (Auto) Lymph % (Auto) Patrick % (Auto) Eos % (Auto) Baso % (Auto) Absolute Neuts (auto) Absolute Lymphs (auto) Total Counted Specimen Type ART Sample Site L Radial pH 7.36 Bicarbonate Actual 27.4 H POC Total CO2 29 Base Excess 2 O2 Saturation 97 ABG pCO2 48.5 H ABG pO2 94 Dao Test POS O2 Delivery Device Nasal Can Liter Flow 2.0 Blood Gas Notified Whom HOSP Sodium 137 Potassium 4.8 Chloride 104 Carbon Dioxide 30.0 Anion Gap 3 L BUN 20 H Creatinine 0.72 Estim Creat Clear Calc 61.13 Est GFR (MDRD) Af Amer 105 Est GFR (MDRD) Non-Af 86 BUN/Creatinine Ratio 27.6 H Glucose 212 H Calcium 8.6 Magnesium 2.1 06/09/18 06:05 WBC 7.3 RBC 4.22 Hgb 10.7 L Hct 34.4 L MCV 81.5 MCH 25.4 L MCHC 31.1 L RDW 16.0 H RDW Differential 47.4 H Plt Count 213 MPV 11.4 Immature Gran % (Auto) 0.000 Neut % (Auto) 82.6 H Lymph % (Auto) 16.1 L Patrick % (Auto) 1.2 Eos % (Auto) 0.0 Baso % (Auto) 0.1 Absolute Neuts (auto) 6.0 Absolute Lymphs (auto) 1.18 Total Counted Not Reportable Specimen Type Sample Site pH Bicarbonate Actual POC Total CO2 Base Excess O2 Saturation ABG pCO2 ABG pO2 Dao Test O2 Delivery Device Liter Flow Blood Gas Notified Whom Sodium Potassium Chloride Carbon Dioxide Anion Gap BUN Creatinine Estim Creat Clear Calc Est GFR (MDRD) Af Amer Est GFR (MDRD) Non-Af BUN/Creatinine Ratio Glucose Calcium Magnesium POC Glucose 06/09/18 06/09/18 06/08/18 11:23 06:29 22:33 POC Glucose 302 H 198 H 259 H 06/08/18 17:27 POC Glucose 150 H Medical Necessity - Tobacco Use Smoking Status: Current some day smoker Tobacco Use: Cigarettes Assessment/Plan All Active Problems (Last Reviewed 06/08/18 @ 13:43 by Marylu Howell NP-C) COPD with acute exacerbation (Acute) Bradycardia (Resolved) Digoxin toxicity (Acute) Cholecystitis (Acute) Acute encephalopathy (Acute) Acute kidney injury (Acute) HCAP (healthcare-associated pneumonia) (Acute) Acute and chronic respiratory failure with hypoxia (Resolved) Acute bronchitis due to human metapneumovirus (Resolved) Atrial fibrillation with RVR (Resolved) COPD with acute exacerbation (Resolved) Gram-negative pneumonia (Resolved) Syncope (Resolved) Cardiomyopathy (Ruled-out) 1. Acute COPD exacerbation with chronic hypoxic respiratory failure-currently stable on 2 L. still wheezy. O2 100% on baseline O2. Continue aerosols/steroids. -resp panel negative -no fever / leukocytosis -Pt of Dr. Chong. -ABG: pCO2 48.5 (seems to be elevated compred to most recent) pH 7.36. -HR improved. -CXR with COPD 2. Chronic atrial fibrillation- now in low 100s. Recently here with RVR. Will monitor on telemetry. Continue propranolol and Xarelto. -improved on home propranolol dose. Missed a dose yesterday prior to admission. 3. Type 2 diabetes-sliding scale and insulin. 4. GERD-on PPI 6. History of CAD, cardiomyopathy, systolic heart failure-continue home medications. She does not appear to have an exacerbation of CHF. -trop neg. No CP. No LE edema. 7. 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 Continue home psychiatric medications DVT prophylaxis: Xarelto Discharge planning: return to ECF once stabilized. This patient was seen by Brian Hinojosa PA-C under the supervision of Dr. Montalvo
[2018-06-09] MEDS: Rivaroxaban 20 MG Tablet PO (16:47)
[2018-06-09 16:50] LABS: Bedside Glucose 225 mg/dL (70-110)
--- NOTE | 2018-06-09 17:10 | CHAPLAIN ---
Type of Pastoral Visit _x__ Initial Visit ___ Follow-up Visit ___ On-call Visit ___ General Patient Visit ___ Spiritual Assessment ___ Family Conference ___ Bereavement ___ Rapid Response ___ Code Blue ___ Other (describe below) Pastoral Care Referral From _x__ Patient ___ Family ___ Nurse ___ Physician ___ Supervisor Metal Furniture [employer] ___ Management Expert ___ Other (describe below) Sacrament/Intervention _x__ Active listening ___ Anointing ___ Restoration ___ Bereavement ___ Communion ___ Nicole exploration ___ ___ Life review _x__ Prayer ___ Reconciliation ___ Sacrament of Sick ___ Supportive presence ___ Wedding ___ Other (describe below) Pastoral Comments
[2018-06-09] MEDS: Docusate Sodium 100 MG Capsule PO (21:08)
[2018-06-09] MEDS: Atorvastatin Calcium 40 MG Tablet PO (21:08)
[2018-06-09 21:31] LABS: Bedside Glucose 283 mg/dL (70-110)
[2018-06-10] VITALS (16 sets, daily range): BP systolic 115–146; BP diastolic 63–87; PULSE 84–123; RESP 18–22; TEMP 36.3–36.8; O2SAT 93–99
[2018-06-10 05:53] LABS: Hematocrit 32.5 % (37-47); Hemoglobin 10.2 g/dl (12.0-15.0)
[2018-06-10 06:11] LABS: Anion Gap 5 (5-15); BUN 16 mg/dL (7-18); BUN/Creat Ratio 25.2 RATIO (10-20); Calcium,Total 8.6 mg/dL (8.5-10.1); Chloride 105 mmol/L (98-107); Creatinine, Serum 0.64 mg/dL (0.55-1.02); EST Glomerular Filtration Rate 101 mL/min (>60); Est Glom Filt Rate - Afr Amer 122 mL/min (>60); Estimated Creatinine Clearance 68.77 ml/min; Glucose 226 mg/dL (74-106); Potassium 4.7 mmol/L (3.5-5.1); Sodium Level 138 mmol/L (136-145)
[2018-06-10] MEDS: Insulin Lispro 100 UNIT/ML INSULN.PEN SQ ×4 (06:36→22:10)
[2018-06-10] MEDS: Propranolol 10 MG Tablet 20 MG PO ×3 (06:38→20:56)
[2018-06-10 06:45] LABS: Bedside Glucose 191 mg/dL (70-110)
[2018-06-10] MEDS: Ipratropium/Albuterol Sulfate 3 ML AMPUL.NEB INHALATION ×4 (06:45→19:30)
[2018-06-10] MEDS: HYDROcodone Bitartrate/Apap 5/325 Tablet PO ×2 (06:45→13:20)
[2018-06-10] MEDS: Nystatin Powder 15gm Bottle 1 APPLIC TOPICAL ×2 (07:51→20:44)
[2018-06-10] MEDS: buPROPion (SR) 150 MG Tablet.SA PO ×2 (07:51→20:58)
[2018-06-10] MEDS: Menthol/Lanolin/Calamine/Znox 113 GM Tube 1 APPLIC TOPICAL ×2 (07:51→20:42)
[2018-06-10] MEDS: Gabapentin 100 MG Capsule PO ×3 (07:52→16:35)
[2018-06-10] MEDS: Tolterodine Tartrate 2 MG CAP.SA PO (07:52)
[2018-06-10] MEDS: Primidone 50 MG Tablet PO ×2 (07:52→20:57)
[2018-06-10] MEDS: Furosemide 40 MG Tablet PO (07:52)
[2018-06-10] MEDS: Magnesium Oxide 400 MG Tablet PO ×2 (07:53→16:35)
[2018-06-10] MEDS: DULoxetine Hcl 60 MG Capsule PO (07:55)
[2018-06-10] MEDS: Pantoprazole Sodium 40 MG Tablet PO (07:56)
--- NOTE | 2018-06-10 09:32 | PCM.PROGNOTE ---
Patient Problems: Active and Suspected Problems (Last Reviewed 06/08/18 @ 13:43 by FRANKLIN Philippe) COPD with acute exacerbation (Acute) Subjective: Patient is a 62-year-old woman who is a frequent inpatient at [facility] due to chronic lung disease. She was admitted with acute exacerbation of COPD. Afebrile since admission. Vital signs stable. Pulse ox on 2 L of nasal O2 is 98 to 99%. She wears 2 to 3 L continuously at home. Hemoglobin is 10.2 today which is within her baseline. BMP is unremarkable. Blood sugars are adequately controlled. Respiratory panel was negative. Remains on Solu-Medrol 40 mg IV every 8 hours and nonqbj-tdl-[id number] aerosols. She continues to feel short of breath, especially with exertion. Denies mouth pain, painful swallowing, nausea, vomiting, abdominal pain. She did not sleep well last night. Objective: General: Alert, oriented ?3, cooperative, pleasant and appropriate, sitting in the chair watching TV Neck: Supple, trachea midline, no enlarged cervical nodes, no enlarged supraclavicular nodes Heart: Regular rate and rhythm, normal S1, normal S2, no murmur, no gallop, no rub Lungs: Managed breath sounds, expiratory wheezing in all lung hoang with prolonged expiratory phase, mildly tachypneic at rest, no conversational dyspnea, no accessory muscle use Abdomen: Soft, NT, ND, bowel sounds present Extremities: No clubbing, no peripheral edema, no cyanosis - Physical Exam Vital Signs Temp Pulse Resp BP Pulse Ox 98.2 F 107 H 20 H 121/68 H 98 06/10/18 07:49 06/10/18 07:49 06/10/18 07:49 06/10/18 07:49 06/10/18 07:49 Oxygen Flow Rate (L/min) 2 Oxygen Delivery Method Nasal Cannula Weight: 186 lb 15.232 oz Body Mass Index (BMI) 35.3 Finger Stick Blood Glucose 159 Intake and Output for Last 24 Hours 06/08/18 06/09/18 06/10/18 23:59 23:59 23:59 Intake Total 350 / 350 1510 / 1510 940 / 940 Balance 350 / 350 1510 / 1510 940 / 940 Microbiology Past 72 Hours 06/08/18 21:11 Respiratory Panel (PCR) - Final Mucosa - Nasopharyngeal Laboratory Tests Past 24 Hrs 06/10/18 06/10/18 05:35 05:35 Hgb 10.2 L Hct 32.5 L Sodium 138 Potassium 4.7 Chloride 105 Carbon Dioxide 28.0 Anion Gap 5 BUN 16 Creatinine 0.64 Estim Creat Clear Calc 68.77 Est GFR (MDRD) Af Amer 122 Est GFR (MDRD) Non-Af 101 BUN/Creatinine Ratio 25.2 H Glucose 226 H Calcium 8.6 POC Glucose 06/10/18 06/09/18 06/09/18 06:35 21:12 16:44 POC Glucose 191 H 283 H 225 H 06/09/18 11:23 POC Glucose 302 H Medical Necessity - Tobacco Use Smoking Status: Current some day smoker Tobacco Use: Cigarettes Assessment/Plan All Active Problems (Last Reviewed 06/08/18 @ 13:43 by Marylu Howell NP-C) COPD with acute exacerbation (Acute) Bradycardia (Resolved) Digoxin toxicity (Acute) Cholecystitis (Acute) Acute encephalopathy (Acute) Acute kidney injury (Acute) HCAP (healthcare-associated pneumonia) (Acute) Acute and chronic respiratory failure with hypoxia (Resolved) Acute bronchitis due to human metapneumovirus (Resolved) Atrial fibrillation with RVR (Resolved) COPD with acute exacerbation (Resolved) Gram-negative pneumonia (Resolved) Syncope (Resolved) Cardiomyopathy (Ruled-out) Impressions 1. Acute exacerbation of COPD 2. Chronic respiratory failure with hypoxemia on 2 to 3 L of nasal O2 at home. Blood gas showed an elevated PCO2 at 48 but she has no compensatory metabolic alkalosis. 3. Type 2 diabetes mellitus 4. Chronic atrial fibrillation 5. GERD 6. CAD, ischemic cardiomyopathy 7. Anxiety, behavioral and cognitive issues, resides in a senior living facility 8. Osteoporosis 9. Hyperlipidemia 10. Hypertension 11. Morbid obesity 12. Chronic pain syndrome 13. Reported history of seasonal allergies-takes Benadryl as needed at the nursing facility 14. Tobacco dependence-smoking about 6 cigarettes/day Add Claritin 10 mg p.o. nightly Continue Solu-Medrol 40 mg every 8 hours and DuoNeb aerosols every 4 hours. Check an ambulatory pulse ox to determine her oxygen requirement with exertion Blood sugars are elevated secondary to high-dose steroids. Will increase the sliding insulin scale to high dose If we are unable to wean steroids tomorrow we will obtain consult with Dr. Prasad. Left ventricular systolic function is normal. The estimated ejection fraction is 65 %. The left atrium is mildly enlarged. There is mild to moderate mitral annular calcification. Extension of the mitral annular calcification onto the posterior mitral valve leaflet. Trivial mitral valve insufficiency. Mild tricuspid valve insufficiency. Trivial aortic valve insufficiency. Right ventricular systolic pressure estimated to be 38 mmHg. Diastolic function is indeterminate. Code Visit Inpatient E&M: 85009 Subs Hosp L2
[2018-06-10] MEDS: LORazepam 0.5 MG Tablet PO (09:46)
[2018-06-10] MEDS: Ferrous Sulfate 325 MG Tablet PO (11:11)
[2018-06-10] MEDS: Polyethylene Glycol 3350 17 GM PACKET PO (11:13)
[2018-06-10 11:21] LABS: Bedside Glucose 249 mg/dL (70-110)
[2018-06-10] MEDS: Glucerna Shake 120 ML LIQUID PO ×3 (13:28→21:00)
--- NOTE | 2018-06-10 13:32 | CPS ---
Pt using on own.
[2018-06-10] MEDS: Rivaroxaban 20 MG Tablet PO (16:35)
[2018-06-10 16:45] LABS: Bedside Glucose 393 mg/dL (70-110)
--- NOTE | 2018-06-10 19:50 | CPS ---
pt refused bipap
[2018-06-10] MEDS: MELATONIN 3 MG TABLET PO (20:55)
[2018-06-10] MEDS: Loratadine 10 MG Tablet PO (20:55)
[2018-06-10] MEDS: Docusate Sodium 100 MG Capsule PO (20:55)
[2018-06-10] MEDS: Atorvastatin Calcium 40 MG Tablet PO (20:57)
[2018-06-10] MEDS: 0.9% NaCl Peripheral Flush Adult/Peds IV (22:09)
[2018-06-10 22:21] LABS: Bedside Glucose 186 mg/dL (70-110)
[2018-06-11] VITALS (12 sets, daily range): BP systolic 118–124; BP diastolic 66–78; PULSE 72–128; RESP 16–20; TEMP 36.4–36.6; O2SAT 92–96
[2018-06-11] MEDS: HYDROcodone Bitartrate/Apap 5/325 Tablet PO ×3 (03:24→22:09)
[2018-06-11] MEDS: Propranolol 10 MG Tablet 20 MG PO ×3 (05:27→21:44)
[2018-06-11] MEDS: Acetaminophen 325 MG Tablet 650 MG PO (05:34)
[2018-06-11] MEDS: Insulin Lispro 100 UNIT/ML INSULN.PEN SQ ×4 (06:36→21:46)
[2018-06-11] MEDS: 0.9% NaCl Peripheral Flush Adult/Peds IV (06:37)
[2018-06-11 06:50] LABS: Bedside Glucose 188 mg/dL (70-110)
[2018-06-11] MEDS: Ipratropium/Albuterol Sulfate 3 ML AMPUL.NEB INHALATION ×3 (06:56→14:25)
[2018-06-11] MEDS: Tolterodine Tartrate 2 MG CAP.SA PO (08:23)
[2018-06-11] MEDS: Magnesium Oxide 400 MG Tablet PO ×2 (08:23→16:54)
[2018-06-11] MEDS: Pantoprazole Sodium 40 MG Tablet PO (08:23)
[2018-06-11] MEDS: DULoxetine Hcl 60 MG Capsule PO (08:23)
[2018-06-11] MEDS: Gabapentin 100 MG Capsule PO ×3 (08:23→16:54)
[2018-06-11] MEDS: Menthol/Lanolin/Calamine/Znox 113 GM Tube 1 APPLIC TOPICAL ×2 (08:23→21:42)
[2018-06-11] MEDS: buPROPion (SR) 150 MG Tablet.SA PO ×2 (08:23→21:45)
[2018-06-11] MEDS: Nystatin Powder 15gm Bottle 1 APPLIC TOPICAL ×2 (08:24→21:43)
[2018-06-11] MEDS: Furosemide 40 MG Tablet PO (08:24)
[2018-06-11] MEDS: Primidone 50 MG Tablet PO ×2 (08:25→21:45)
[2018-06-11] MEDS: LORazepam 0.5 MG Tablet PO (08:27)
[2018-06-11] MEDS: Glucerna Shake 120 ML LIQUID PO ×4 (08:27→22:06)
[2018-06-11] MEDS: predniSONE 20 MG Tablet 40 MG PO (09:56)
--- NOTE | 2018-06-11 10:34 | CASEMGMT ---
As per physician, pt should be ready tomorrow for discharge. LUIS spoke w/Trudy at [place] to let her know, updates faxed. LUIS placed green sheet on chart w/transport forms in anticipation of weekend discharge. RON Sosa
[2018-06-11] MEDS: Ferrous Sulfate 325 MG Tablet PO (11:34)
[2018-06-11 11:41] LABS: Bedside Glucose 300 mg/dL (70-110)
[2018-06-11] MEDS: Fluticasone 0.05% 1 SPRAY NASAL.SRY 2 SPRAY NASAL (13:54)
[2018-06-11] MEDS: Rivaroxaban 20 MG Tablet PO (16:54)
[2018-06-11 17:00] LABS: Bedside Glucose 305 mg/dL (70-110)
--- NOTE | 2018-06-11 20:54 | PCM.PROGNOTE ---
Patient Problems: Active and Suspected Problems (Last Reviewed 06/08/18 @ 13:43 by FRANKLIN Philippe) COPD with acute exacerbation (Acute) Subjective: The patient is a 62-year-old female with a long-standing history of severe COPD who was admitted to the hospital with a diagnosis of acute exacerbation of COPD. Chest x-ray showed no pleural effusions, infiltrates or pulmonary vascular congestion. White blood cell count and differential were normal. She was transitioned to prednisone 40 mg daily on 06/11/2018 and will be discharged on 06/12/2018 if she is stable. She continues to complain of shortness of breath. She also complains of postnasal drip and nasal congestion. On 06/10/2018 pulse ox on room air with ambulation was 93% and at rest was 95%. - Physical Exam General: Alert, Cooperative, No apparent distress Oral: Moist Mucosa Neck: Trachea Midline Lungs: Diminished, Wheezes - Rare expiratory wheeze, much better air exchange today, not tachypneic, no conversational dyspnea, no accessory muscle use Cardiovascular: Normal S1, Normal S2, Irregular Rate, No Gallop Abdomen: Bowel Sounds Present, Soft, Non Tender, Non-Distended Extremities: No edema Neurological: Cranial nerves II-XII grossly intact, Neuro grossly intact Psych/Mental Status: Normal Affect, Appropriate Vital Signs Temp Pulse Resp BP Pulse Ox 97.7 F L 128 H 16 123/74 H 93 06/11/18 14:00 06/11/18 15:59 06/11/18 14:25 06/11/18 14:00 06/11/18 14:00 Oxygen Flow Rate (L/min) 2 Oxygen Delivery Method Room Air Weight: 186 lb 15.232 oz Body Mass Index (BMI) 35.3 Finger Stick Blood Glucose 159 Intake and Output for Last 24 Hours 06/09/18 06/10/18 06/11/18 23:59 23:59 23:59 Intake Total 1510 / 1510 1999 1260 / 1260 Balance 1510 / 1510 1999 1260 / 1260 Microbiology Past 72 Hours 06/08/18 21:11 Respiratory Panel (PCR) - Final Mucosa - Nasopharyngeal POC Glucose 06/11/18 06/11/18 06/11/18 16:52 11:32 06:34 POC Glucose 305 H 300 H 188 H 06/10/18 22:07 POC Glucose 186 H Medical Necessity - Tobacco Use Smoking Status: Current some day smoker Tobacco Use: Cigarettes Assessment/Plan All Active Problems (Last Reviewed 06/08/18 @ 13:43 by Marylu Howell NP-C) COPD with acute exacerbation (Acute) Bradycardia (Resolved) Digoxin toxicity (Acute) Cholecystitis (Acute) Acute encephalopathy (Acute) Acute kidney injury (Acute) HCAP (healthcare-associated pneumonia) (Acute) Acute and chronic respiratory failure with hypoxia (Resolved) Acute bronchitis due to human metapneumovirus (Resolved) Atrial fibrillation with RVR (Resolved) COPD with acute exacerbation (Resolved) Gram-negative pneumonia (Resolved) Syncope (Resolved) Cardiomyopathy (Ruled-out) Impressions 1. Acute exacerbation of COPD 2. Chronic respiratory failure with hypoxemia on 2 to 3 L of nasal O2 at home. Blood gas showed an elevated PCO2 at 48 but she has no compensatory metabolic alkalosis. 3. Type 2 diabetes mellitus 4. Chronic atrial fibrillation 5. GERD 6. CAD, ischemic cardiomyopathy 7. Anxiety, behavioral and cognitive issues, resides in a shelter facility 8. Osteoporosis 9. Hyperlipidemia 10. Hypertension 11. Morbid obesity 12. Chronic pain syndrome 13. Reported history of seasonal allergies-takes Benadryl as needed at the nursing facility 14. Tobacco dependence-smoking about 6 cigarettes/day Discontinue Solu-Medrol and start prednisone 40 mg daily today And Flonase for rhinitis Has insomnia likely related to high-dose steroids-we will give trazodone 100 mg at at bedtime and discontinue melatonin. If she continues to have insomnia following discontinuation of prednisone would consider changing the Wellbutrin to once daily as it can cause insomnia if given late in the day. Recheck pulse ox on room air at rest and with ambulation in the a.m. Probable discharge tomorrow on a prednisone taper Left ventricular systolic function is normal. The estimated ejection fraction is 65 %. The left atrium is mildly enlarged. There is mild to moderate mitral annular calcification. Extension of the mitral annular calcification onto the posterior mitral valve leaflet. Trivial mitral valve insufficiency. Mild tricuspid valve insufficiency. Trivial aortic valve insufficiency. Right ventricular systolic pressure estimated to be 38 mmHg. Diastolic function is indeterminate. Code Visit Inpatient E&M: 61293 Subs Hosp L2
[2018-06-11] MEDS: Docusate Sodium 100 MG Capsule PO (21:43)
[2018-06-11] MEDS: Atorvastatin Calcium 40 MG Tablet PO (21:43)
[2018-06-11] MEDS: traZODone 100 MG Tablet PO (21:44)
[2018-06-11] MEDS: Loratadine 10 MG Tablet PO (21:44)
[2018-06-11 22:46] LABS: Bedside Glucose 220 mg/dL (70-110)
[2018-06-12] VITALS (7 sets, daily range): BP systolic 96–122; BP diastolic 60–68; PULSE 74–89; RESP 18–20; TEMP 36.5–36.7; O2SAT 93–96
[2018-06-12] MEDS: Propranolol 10 MG Tablet 20 MG PO (06:43)
[2018-06-12] MEDS: HYDROcodone Bitartrate/Apap 5/325 Tablet PO ×2 (06:50→14:17)
[2018-06-12 06:51] LABS: Bedside Glucose 126 mg/dL (70-110)
[2018-06-12] MEDS: Ipratropium/Albuterol Sulfate 3 ML AMPUL.NEB INHALATION ×2 (07:50→11:52)
[2018-06-12] MEDS: LORazepam 0.5 MG Tablet PO (09:15)
[2018-06-12] MEDS: Gabapentin 100 MG Capsule PO ×2 (09:15→12:03)
[2018-06-12] MEDS: predniSONE 20 MG Tablet 40 MG PO (09:15)
[2018-06-12] MEDS: Magnesium Oxide 400 MG Tablet PO (09:15)
[2018-06-12] MEDS: Menthol/Lanolin/Calamine/Znox 113 GM Tube 1 APPLIC TOPICAL (09:16)
[2018-06-12] MEDS: Fluticasone 0.05% 1 SPRAY NASAL.SRY 2 SPRAY NASAL (09:16)
[2018-06-12] MEDS: DULoxetine Hcl 60 MG Capsule PO (09:16)
[2018-06-12] MEDS: Tolterodine Tartrate 2 MG CAP.SA PO (09:16)
[2018-06-12] MEDS: Pantoprazole Sodium 40 MG Tablet PO (09:18)
[2018-06-12] MEDS: Nystatin Powder 15gm Bottle 1 APPLIC TOPICAL (09:18)
[2018-06-12] MEDS: Primidone 50 MG Tablet PO (09:18)
[2018-06-12] MEDS: Furosemide 40 MG Tablet PO (09:18)
[2018-06-12] MEDS: Polyethylene Glycol 3350 17 GM PACKET PO (09:19)
[2018-06-12] MEDS: buPROPion (SR) 150 MG Tablet.SA PO (09:19)
--- NOTE | 2018-06-12 11:48 | TREXTCA.CO_ITS ---
- Diet 06/08/18 17:12 Diet: Calorie Controlled Is pt able to select menu?: Yes Diet Comments: GROUND MEATS How many daily calories?: 1800 calorie - Routine Orders/Code Status Enema Type: Fleetz Enema Frequency: Daily PRN Suppository Type: Dulcolax 10mg Suppository Frequency: Daily PRN O2 Liters per Minute: 2 O2 Frequency: PRN Keep PO Greater than or Equal to (%): 90 Routine Lab Work: CBC, BMP, - - Every other week. Code Status: Full Code - Wound(s) R MALIN Wound Type: Abrasion - Suggestions for Active Care Change Position every (hours): 2 Times a day to sit in chair: 3 - Therapies Physical Therapy: Eval and Treat Occupational Therapy: Eval and Treat - Problem/Diagnosis (1) COPD with acute exacerbation Status: Acute Current Visit: Yes (2) Essential hypertension Status: Chronic Current Visit: No (3) Chronic atrial fibrillation Status: Chronic Current Visit: No (4) Type 2 diabetes mellitus Status: Chronic Comment: uncontrolled Current Visit: No (5) GERD (gastroesophageal reflux disease) Status: Chronic Current Visit: No - Allergies/Procedures Done in Hospital Allergies/Adverse Reactions: Allergies venom-honey bee [bee venom (honey bee)] Allergy (Verified 06/08/18 14:05) Swelling levofloxacin [From Levaquin] Adverse Reaction (Verified 06/08/18 14:05) Nausea oxycodone HCl [From Percocet] Adverse Reaction (Verified 06/08/18 14:05) Nausea Penicillins Adverse Reaction (Verified 06/08/18 14:05) Nausea/Vom/Diarrhea Procedures: None - Type of Care/Length of Stay Estimated LOS: More Than 30 Days Type of Care Needed: Skilled Rehab Potential: Fair Prognosis: Fair - Additional Orders/Day of Discharge H&P will serve as current which was dated: 06/08/18 Day of Discharge: 06/12/18 - Dietary and Speech Recommendations Dietitian Recommendations/Changes: Rec 1800 calorie controlled, cardiac diet w/ ground meats as needed. Rec INSTRUMENT TECHNICIAN APPRENTICE consult if additional chewing/swallowing problems evident. - Follow Up Care Primary Care Physician: Camden Buregr [Primary Care Provider] - Please follow up with your Primary Care Physician in: 1 Week Please Follow Up With: Marylu Howell NP-C When: 1-2 Weeks
[2018-06-12 12:00] LABS: Bedside Glucose 118 mg/dL (70-110)
[2018-06-12] MEDS: Ferrous Sulfate 325 MG Tablet PO (12:03)
--- NOTE | 2018-06-12 12:14 | PCM.DC.SUM ---
<Marie Hoover - Last Filed: 06/12/18 12:23> Discharge Date and Diagnosis Date of Admission: 06/08/18 Date of Discharge: 06/12/18 - Primary Discharge Diagnosis Active and Suspected Problems (Last Reviewed 06/08/18 @ 13:43 by Marylu Howell NP-C) 1. Acute COPD exacerbation on chronic severe COPD with chronic hypoxic respiratory failure 2. Chronic atrial fibrillation 4. Type 2 diabetes mellitus 5. Hypertension 6. Hyperlipidemia 7. History of mild ischemic cardiomyopathy/CAD 8. GERD 9. Anxiety 10. Obesity 11. Tobacco dependence - Secondary Discharge Diagnosis Chronic Problems (Last Reviewed 06/08/18 @ 13:43 by BRIGIDO PhilippeC) Essential hypertension (Chronic) Abdominal pain (Chronic) ABDULLAHI (obstructive sleep apnea) (Chronic) Tobacco dependence due to cigarettes (Chronic) Non-compliance (Chronic) Hypersomnia (Chronic) Anemia (Chronic) Normocytic Morbid obesity with BMI of 40.0-44.9, adult (Chronic) COPD (chronic obstructive pulmonary disease) (Chronic) Chronic pain (Chronic) Chronic atrial fibrillation (Chronic) Chronic hypoxemic respiratory failure (Chronic) non-compliant with oxygen Hyperlipemia (Chronic) Type 2 diabetes mellitus (Chronic) uncontrolled GERD (gastroesophageal reflux disease) (Chronic) Anxiety (Chronic) Insomnia (Chronic) Hospital Course and Treatment Imaging Results: Diagnostic Data Chest X-Ray 06/08/18 14:45 IMPRESSION: COPD. The lungs are clear. Electronically Signed: Lashanda Hernandez, at 15:10 EDT Tel , Service support , Operations: None Procedures: None Summary of Care Provided: The patient is a 62 year old F admitted for 2319 due to shortness of breath. 1. Acute COPD exacerbation on chronic severe COPD with chronic hypoxic respiratory failure-respiratory panel negative. Chest x-ray with COPD, no acute process. Patient treated with IV steroids, albuterol and DuoNeb aerosols. Improved. Walking pulse ox completed and patient did not require further supplemental oxygen. She does wear supplemental oxygen chronically at bedtime. Stable for discharge on prednisone taper and follow-up with pulmonary medicine within 1 week. Patient follows with Dr. Chong/Marylu Meza NP. Follow-up with primary care physician 1 week. 2. Chronic atrial fibrillation-stable, continue home Xarelto, propanolol regimen. 4. Type 2 diabetes mellitus-continue home insulin regimen. 5. Hypertension-stable, continue Lasix, propanolol regimen. 6. Hyperlipidemia-continue statin. 7. History of mild ischemic cardiomyopathy/CAD-continue aspirin, statin, beta-lou. 8. GERD-continue PPI. 9. Anxiety-continue home regimen. 10. Obesity-encourage diet and lifestyle modifications. 11. Tobacco dependence-encourage smoking cessation. General: Alert, Oriented x3, Cooperative, - - Conversational dyspnea HEENT: Atraumatic, PERRLA, EOMI, Normocephalic Neck: Supple, No JVD, Negative Carotid Bruits Lungs: Diminished, Wheezes Cardiovascular: No murmurs, Irregular Rate, Tachycardic Abdomen: Bowel Sounds Present, Soft, Non Tender, Obese Extremities: No edema, Capillary Refill Less than 3 Seconds Skin: No rashes, No breakdown Musculoskeletal: No Tenderness to Palpation of Joints or Extremities Neurological: Cranial nerves II-XII grossly intact Psych/Mental Status: Normal Affect, Appropriate, Alert and oriented to time, place, person, mood and affect Patient seen and examined prior to discharge. Physical assessment as noted above. Patient is stable for discharge with follow up recommendations as noted above. This patient was seen by FRANKLIN Cardenas under the supervision of Dr. Fabian. - Physical Exam Vital Signs Temp Pulse Resp BP Pulse Ox 98.1 F 82 18 122/61 H 96 06/12/18 09:04 06/12/18 11:52 06/12/18 11:52 06/12/18 09:04 06/12/18 09:04 Oxygen Flow Rate (L/min) 2 Oxygen Delivery Method Room Air Weight: 186 lb 15.232 oz Body Mass Index (BMI) 35.3 Finger Stick Blood Glucose 159 Intake and Output for Last 24 Hours 06/10/18 06/11/18 06/12/18 23:59 23:59 23:59 Intake Total 1999 1260 / 1260 740 / 740 Balance 1999 1260 / 1260 740 / 740 Microbiology Past 72 Hours 06/08/18 21:11 Respiratory Panel (PCR) - Final Mucosa - Nasopharyngeal POC Glucose 06/12/18 06/12/18 06/11/18 11:56 06:46 21:34 POC Glucose 118 H 126 H 220 H 06/11/18 16:52 POC Glucose 305 H Home Medications: Medications to take at Discharge Budesonide/Formoterol 160/4.5 [Symbicort 160/4.5 Mcg Inhaler (SP)] 2 puff INHALATION BID 05/12/17 Bupropion HCl [Bupropion HCl Sr] 150 mg PO BID 05/12/17 docusate sodium 100 mg capsule 100 mg PO QHS 09/01/17 Rivaroxaban [Xarelto] 20 mg PO DAILY #0 11/03/17 Duloxetine HCl 60 mg PO DAILY 12/23/17 Gabapentin [Neurontin] 100 mg PO TIDCM 12/23/17 Loperamide [Imodium] 2 mg PO PRN PRN 12/23/17 Polyethylene Glycol 3350 [Miralax] 17 gm PO DAILY 12/23/17 Albuterol Aerosols [Ventolin Aerosols] 2.5 mg INHALATION Q6HWA.RT PRN 02/01/18 Potassium Chloride [K-Dur] 20 meq PO DAILY #30 tab 02/04/18 Hydrocodone/Acetaminophen [[place] 5-325 Tablet] 1 tab PO Q6H PRN PRN 02/07/18 Furosemide [Lasix] 40 mg PO DAILY 06/08/18 Magnesium Oxide [Mag-Ox 400] 400 mg PO BIDCM 06/08/18 Oxybutynin Chloride [Oxybutynin Chloride ER] 5 mg PO DAILY 06/08/18 Pantoprazole Sodium [Protonix] 40 mg PO DAILY 06/08/18 Primidone 50 mg PO BID 06/08/18 Propranolol HCl 20 mg PO TID 06/08/18 Talc/Cellulos/Chloroxy/Aldioxa [Zeasorb Powder] 71 gm TP BID 06/08/18 ferrous fumarate 325 mg (106 mg iron) tablet 325 mg PO DAILY tab 06/08/18 furosemide 20 mg tablet 20 mg PO DAILY tab 06/08/18 lorazepam 0.5 mg tablet 0.5 mg PO DAILY tab 06/08/18 lorazepam 0.5 mg tablet 0.5 mg PO Q6H PRN tab 06/08/18 rosuvastatin 20 mg tablet 20 mg PO QHS 06/08/18 Fluticasone 0.05% [Flonase Nasal [place]] 2 spray NASAL DAILY nasal.sry 06/12/18 Insulin Lispro [Humalog KwikPen] See Protocol SQ ACHS insuln.pen 06/12/18 Loratadine [Claritin] 10 mg PO QHS tablet 06/12/18 predniSONE tablet See Taper PO DAILY@0800 tablet 06/12/18 Primary Care Physician: Camden Burger [Primary Care Provider] - Please follow up with your Primary Care Physician in: 1 Week Please Follow Up With: Marylu Howell NP-C When: 1-2 Weeks [facility] Minutes spent on discharge:: 35 Patient Condition:: Stable Medical Necessity - Tobacco Use Smoking Status: Current some day smoker Tobacco Use: Cigarettes Meaningful Use Info Meaningful Use Diagnoses (Choose all that apply): None applicable <Jessica Fabian E - Last Filed: 06/12/18 12:58> Discharge Date and Diagnosis - Secondary Discharge Diagnosis Chronic Problems (Last Updated 06/12/18 @ 12:14 by FRANKLIN Cardenas) Essential hypertension (Chronic) Abdominal pain (Chronic) ABDULLAHI (obstructive sleep apnea) (Chronic) Tobacco dependence due to cigarettes (Chronic) Non-compliance (Chronic) Hypersomnia (Chronic) Anemia (Chronic) Normocytic Morbid obesity with BMI of 40.0-44.9, adult (Chronic) COPD (chronic obstructive pulmonary disease) (Chronic) Chronic pain (Chronic) Chronic atrial fibrillation (Chronic) Chronic hypoxemic respiratory failure (Chronic) non-compliant with oxygen Hyperlipemia (Chronic) Type 2 diabetes mellitus (Chronic) uncontrolled GERD (gastroesophageal reflux disease) (Chronic) Anxiety (Chronic) Insomnia (Chronic) Hospital Course and Treatment Summary of Care Provided: Hospitalist note: Discharge summary above reviewed and I agree with the above discharge and treatment plan. Patient was admitted because of worsening shortness of breath and wheezing, found to have acute COPD exacerbation. Chest x-ray showed no acute infiltrate or consolidation. Respiratory panel for viruses were negative. Patient was treated with bronchodilators and IV steroids. Her ABG revealed pH of 7.36, PCO2 of 48 and PO2 of 94. Her routine blood work was notable for chronic anemia, otherwise normal. With above-mentioned treatment, patient symptoms improved and we were able to wean off oxygen. On today's discharge, her pulse ox was 96% on room air and she reported significant improvement of her symptoms. Her other vital signs were stable. Patient discharged [facility] to [facility] in a stable medical condition, discharged on tapering course of prednisone, no antibiotic given upon discharge, continued on her chronic home medications without any changes, recommended follow-up with PCP in 1 week and follow-up with pulmonology in 1 to 2 weeks. - Physical Exam General: Alert, Oriented x3, Cooperative, No apparent distress. HEENT: Atraumatic, PERRLA, EOMI. Neck: Supple, No JVD, Negative Carotid Bruits, Trachea Midline, Thyroid Normal. Lungs: Diminished breath sounds bilateral, occasional wheezes, no rhonchi, No rales. Cardiovascular: Irregular rhythm,, normal S1, Normal S2, PMI Normal. Abdomen: Bowel Sounds Present, Soft, Non Tender, Non-Distended, No Hepato-splenomegaly. Extremities: No clubbing, No cyanosis, No edema Skin: No rashes, No breakdown Neurological: Neuro grossly intact Vital Signs are stable. This note was generated with [employer] dictation software. It may contain incorrect words, spelling, and punctuation that were not noted in checking the note before signing. - Physical Exam Vital Signs Temp Pulse Resp BP Pulse Ox 98.1 F 82 18 122/61 H 96 06/12/18 09:04 06/12/18 11:52 06/12/18 11:52 06/12/18 09:04 06/12/18 09:04 Oxygen Flow Rate (L/min) 2 Oxygen Delivery Method Room Air Weight: 186 lb 15.232 oz Body Mass Index (BMI) 35.3 Finger Stick Blood Glucose 159 Intake and Output for Last 24 Hours 06/10/18 06/11/18 06/12/18 23:59 23:59 23:59 Intake Total 1999 1260 / 1260 740 / 740 Balance 1999 1260 / 1260 740 / 740 Microbiology Past 72 Hours 06/08/18 21:11 Respiratory Panel (PCR) - Final Mucosa - Nasopharyngeal POC Glucose 06/12/18 06/12/18 06/11/18 11:56 06:46 21:34 POC Glucose 118 H 126 H 220 H 06/11/18 16:52 POC Glucose 305 H [facility]position: [facility] Minutes spent on discharge:: 26 Patient Condition:: Stable Meaningful Use Info Meaningful Use Diagnoses (Choose all that apply): None applicable Code Visit Inpatient E&M: 87394 Disch Hosp
--- NOTE | 2018-06-12 12:22 | DS.PCM_ITS ---
<Marie Hoover - Last Filed: 06/12/18 12:23> Discharge Date and Diagnosis Date of Admission: 06/08/18 Date of Discharge: 06/12/18 - Primary Discharge Diagnosis Active and Suspected Problems (Last Reviewed 06/08/18 @ 13:43 by Marylu Howell NP-C) 1. Acute COPD exacerbation on chronic severe COPD with chronic hypoxic respiratory failure 2. Chronic atrial fibrillation 4. Type 2 diabetes mellitus 5. Hypertension 6. Hyperlipidemia 7. History of mild ischemic cardiomyopathy/CAD 8. GERD 9. Anxiety 10. Obesity 11. Tobacco dependence - Secondary Discharge Diagnosis Chronic Problems (Last Reviewed 06/08/18 @ 13:43 by BRIGIDO PhilippeC) Essential hypertension (Chronic) Abdominal pain (Chronic) ABDULLAHI (obstructive sleep apnea) (Chronic) Tobacco dependence due to cigarettes (Chronic) Non-compliance (Chronic) Hypersomnia (Chronic) Anemia (Chronic) Normocytic Morbid obesity with BMI of 40.0-44.9, adult (Chronic) COPD (chronic obstructive pulmonary disease) (Chronic) Chronic pain (Chronic) Chronic atrial fibrillation (Chronic) Chronic hypoxemic respiratory failure (Chronic) non-compliant with oxygen Hyperlipemia (Chronic) Type 2 diabetes mellitus (Chronic) uncontrolled GERD (gastroesophageal reflux disease) (Chronic) Anxiety (Chronic) Insomnia (Chronic) Hospital Course and Treatment Imaging Results: Diagnostic Data Chest X-Ray 06/08/18 14:45 IMPRESSION: COPD. The lungs are clear. Electronically Signed: Lashanda Hernandez, at 15:10 EDT Tel , Service support , Operations: None Procedures: None Summary of Care Provided: The patient is a 62 year old F admitted for 2319 due to shortness of breath. 1. Acute COPD exacerbation on chronic severe COPD with chronic hypoxic respiratory failure-respiratory panel negative. Chest x-ray with COPD, no acute process. Patient treated with IV steroids, albuterol and DuoNeb aerosols. Improved. Walking pulse ox completed and patient did not require further supplemental oxygen. She does wear supplemental oxygen chronically at bedtime. Stable for discharge on prednisone taper and follow-up with pulmonary medicine within 1 week. Patient follows with Dr. Chong/Marylu Meza NP. Follow-up with primary care physician 1 week. 2. Chronic atrial fibrillation-stable, continue home Xarelto, propanolol regimen. 4. Type 2 diabetes mellitus-continue home insulin regimen. 5. Hypertension-stable, continue Lasix, propanolol regimen. 6. Hyperlipidemia-continue statin. 7. History of mild ischemic cardiomyopathy/CAD-continue aspirin, statin, beta- lou. 8. GERD-continue PPI. 9. Anxiety-continue home regimen. 10. Obesity-encourage diet and lifestyle modifications. 11. Tobacco dependence-encourage smoking cessation. General: Alert, Oriented x3, Cooperative, - - Conversational dyspnea HEENT: Atraumatic, PERRLA, EOMI, Normocephalic Neck: Supple, No JVD, Negative Carotid Bruits Lungs: Diminished, Wheezes Cardiovascular: No murmurs, Irregular Rate, Tachycardic Abdomen: Bowel Sounds Present, Soft, Non Tender, Obese Extremities: No edema, Capillary Refill Less than 3 Seconds Skin: No rashes, No breakdown Musculoskeletal: No Tenderness to Palpation of Joints or Extremities Neurological: Cranial nerves II-XII grossly intact Psych/Mental Status: Normal Affect, Appropriate, Alert and oriented to time, place, person, mood and affect Patient seen and examined prior to discharge. Physical assessment as noted above. Patient is stable for discharge with follow up recommendations as noted above. This patient was seen by FRANKLIN Cardenas under the supervision of Dr. Fabian. - Physical Exam Vital Signs Temp Pulse Resp BP Pulse Ox 98.1 F 82 18 122/61 H 96 06/12/18 09:04 06/12/18 11:52 06/12/18 11:52 06/12/18 09:04 06/12/18 09:04 Oxygen Flow Rate (L/min) 2 Oxygen Delivery Method Room Air Weight: 186 lb 15.232 oz Body Mass Index (BMI) 35.3 Finger Stick Blood Glucose 159 Intake and Output for Last 24 Hours 06/10/18 06/11/18 06/12/18 23:59 23:59 23:59 Intake Total 1999 1260 / 1260 740 / 740 Balance 1999 1260 / 1260 740 / 740 Microbiology Past 72 Hours 06/08/18 21:11 Respiratory Panel (PCR) - Final Mucosa - Nasopharyngeal POC Glucose 06/12/18 06/12/18 06/11/18 11:56 06:46 21:34 POC Glucose 118 H 126 H 220 H 06/11/18 16:52 POC Glucose 305 H Home Medications: Medications to take at Discharge Budesonide/Formoterol 160/4.5 [Symbicort 160/4.5 Mcg Inhaler (SP)] 2 puff INHALATION BID 05/12/17 Bupropion HCl [Bupropion HCl Sr] 150 mg PO BID 05/12/17 docusate sodium 100 mg capsule 100 mg PO QHS 09/01/17 Rivaroxaban [Xarelto] 20 mg PO DAILY #0 11/03/17 Duloxetine HCl 60 mg PO DAILY 12/23/17 Gabapentin [Neurontin] 100 mg PO TIDCM 12/23/17 Loperamide [Imodium] 2 mg PO PRN PRN 12/23/17 Polyethylene Glycol 3350 [Miralax] 17 gm PO DAILY 12/23/17 Albuterol Aerosols [Ventolin Aerosols] 2.5 mg INHALATION Q6HWA.RT PRN 02/01/18 Potassium Chloride [K-Dur] 20 meq PO DAILY #30 tab 02/04/18 Hydrocodone/Acetaminophen [[place] 5-325 Tablet] 1 tab PO Q6H PRN PRN 02/07/18 Furosemide [Lasix] 40 mg PO DAILY 06/08/18 Magnesium Oxide [Mag-Ox 400] 400 mg PO BIDCM 06/08/18 Oxybutynin Chloride [Oxybutynin Chloride ER] 5 mg PO DAILY 06/08/18 Pantoprazole Sodium [Protonix] 40 mg PO DAILY 06/08/18 Primidone 50 mg PO BID 06/08/18 Propranolol HCl 20 mg PO TID 06/08/18 Talc/Cellulos/Chloroxy/Aldioxa [Zeasorb Powder] 71 gm TP BID 06/08/18 ferrous fumarate 325 mg (106 mg iron) tablet 325 mg PO DAILY tab 06/08/18 furosemide 20 mg tablet 20 mg PO DAILY tab 06/08/18 lorazepam 0.5 mg tablet 0.5 mg PO DAILY tab 06/08/18 lorazepam 0.5 mg tablet 0.5 mg PO Q6H PRN tab 06/08/18 rosuvastatin 20 mg tablet 20 mg PO QHS 06/08/18 Fluticasone 0.05% [Flonase Nasal [place]] 2 spray NASAL DAILY nasal.sry 06/12/18 Insulin Lispro [Humalog KwikPen] See Protocol SQ ACHS insuln.pen 06/12/18 Loratadine [Claritin] 10 mg PO QHS tablet 06/12/18 predniSONE tablet See Taper PO DAILY@0800 tablet 06/12/18 Primary Care Physician: Camden Burger [Primary Care Provider] - Please follow up with your Primary Care Physician in: 1 Week Please Follow Up With: Marylu Howell NP-C When: 1-2 Weeks Disposition: Group Home facility Minutes spent on discharge:: 35 Patient Condition:: Stable Medical Necessity - Tobacco Use Smoking Status: Current some day smoker Tobacco Use: Cigarettes Meaningful Use Info Meaningful Use Diagnoses (Choose all that apply): None applicable <Jesisca Fabian E - Last Filed: 06/12/18 12:58> Discharge Date and Diagnosis - Secondary Discharge Diagnosis Chronic Problems (Last Updated 06/12/18 @ 12:14 by FRANKLIN Cardenas) Essential hypertension (Chronic) Abdominal pain (Chronic) ABDULLAHI (obstructive sleep apnea) (Chronic) Tobacco dependence due to cigarettes (Chronic) Non-compliance (Chronic) Hypersomnia (Chronic) Anemia (Chronic) Normocytic Morbid obesity with BMI of 40.0-44.9, adult (Chronic) COPD (chronic obstructive pulmonary disease) (Chronic) Chronic pain (Chronic) Chronic atrial fibrillation (Chronic) Chronic hypoxemic respiratory failure (Chronic) non-compliant with oxygen Hyperlipemia (Chronic) Type 2 diabetes mellitus (Chronic) uncontrolled GERD (gastroesophageal reflux disease) (Chronic) Anxiety (Chronic) Insomnia (Chronic) Hospital Course and Treatment Summary of Care Provided: Hospitalist note: Discharge summary above reviewed and I agree with the above discharge and treatment plan. Patient was admitted because of worsening shortness of breath and wheezing, found to have acute COPD exacerbation. Chest x-ray showed no acute infiltrate or consolidation. Respiratory panel for viruses were negative. Patient was treated with bronchodilators and IV steroids. Her ABG revealed pH of 7.36, PCO2 of 48 and PO2 of 94. Her routine blood work was notable for chronic anemia, otherwise normal. With above-mentioned treatment, patient symptoms improved and we were able to wean off oxygen. On today's discharge, her pulse ox was 96% on room air and she reported significant improvement of her symptoms. Her other vital signs were stable. Patient discharged [facility] to [facility] in a stable medical condition, discharged on tapering course of prednisone, no antibiotic given upon discharge, continued on her chronic home medications without any changes, recommended follow-up with PCP in 1 week and follow-up with pulmonology in 1 to 2 weeks. - Physical Exam General: Alert, Oriented x3, Cooperative, No apparent distress. HEENT: Atraumatic, PERRLA, EOMI. Neck: Supple, No JVD, Negative Carotid Bruits, Trachea Midline, Thyroid Normal. Lungs: Diminished breath sounds bilateral, occasional wheezes, no rhonchi, No rales. Cardiovascular: Irregular rhythm,, normal S1, Normal S2, PMI Normal. Abdomen: Bowel Sounds Present, Soft, Non Tender, Non-Distended, No Hepato- splenomegaly. Extremities: No clubbing, No cyanosis, No edema Skin: No rashes, No breakdown Neurological: Neuro grossly intact Vital Signs are stable. This note was generated with [employer] dictation software. It may contain incorrect words, spelling, and punctuation that were not noted in checking the note before signing. - Physical Exam Vital Signs Temp Pulse Resp BP Pulse Ox 98.1 F 82 18 122/61 H 96 06/12/18 09:04 06/12/18 11:52 06/12/18 11:52 06/12/18 09:04 06/12/18 09:04 Oxygen Flow Rate (L/min) 2 Oxygen Delivery Method Room Air Weight: 186 lb 15.232 oz Body Mass Index (BMI) 35.3 Finger Stick Blood Glucose 159 Intake and Output for Last 24 Hours 06/10/18 06/11/18 06/12/18 23:59 23:59 23:59 Intake Total 1999 1260 / 1260 740 / 740 Balance 1999 1260 / 1260 740 / 740 Microbiology Past 72 Hours 06/08/18 21:11 Respiratory Panel (PCR) - Final Mucosa - Nasopharyngeal POC Glucose 06/12/18 06/12/18 06/11/18 11:56 06:46 21:34 POC Glucose 118 H 126 H 220 H 06/11/18 16:52 POC Glucose 305 H Disposition: Group Home facility Minutes spent on discharge:: 26 Patient Condition:: Stable Meaningful Use Info Meaningful Use Diagnoses (Choose all that apply): None applicable Code Visit Inpatient E&M: 26547 Disch Hosp
--- NOTE | 2018-06-12 12:29 | NURSING ---
REPORT CALLED TO [facility]
--- NOTE | 2018-06-12 12:56 | NURSING ---
[facility] [place]- notified that they have no available transport by wheelchair due to only being open until 4pm and having all times booked. [facility] called and reports that they have no wheelchairs available on weekends. This RN called [facility] and then Marie Garner N.P. and notified them of need for cot. This RN called [place] to see if they might have transport and they state they do not and that patient does not have any family that will be able to transport her back to [place]. This RN obtained form necessary for transport and had Marie Michaels sign in preparation for discharge time scheduled at 1430. Pt. primary RN called report.
[2018-06-12] MEDS: Glucerna Shake 120 ML LIQUID PO (14:14)
== END 2018-06-12 14:30 | disposition skilled nursing facility (03) | DRG 140 ==
LOC: ED 16:24 → MS2 16:53
PROVIDERS: Internal Medicine; Physician Assistant; Admitting Provider Family Medicine; Emergency Provider Emergency Medicine; Family Provider Family Medicine; PCP Family Medicine; Visit Provider Hospitalist
DX: J44.1 Chronic obstructive pulmonary disease with (acute) exacerbation (principal); Z99.81 Dependence on supplemental oxygen; E11.9 Type 2 diabetes mellitus without complications; I48.2 Chronic atrial fibrillation; E78.5 Hyperlipidemia, unspecified; E66.9 Obesity, unspecified; I10 Essential (primary) hypertension; F17.210 Nicotine dependence, cigarettes, uncomplicated; Z79.01 Long term (current) use of anticoagulants; Z68.35 Body mass index [BMI] 35.0-35.9, adult; Z79.4 Long term (current) use of insulin; K21.9 Gastro-esophageal reflux disease without esophagitis; F41.9 Anxiety disorder, unspecified; I25.5 Ischemic cardiomyopathy; G47.33 Obstructive sleep apnea (adult) (pediatric); I25.10 Atherosclerotic heart disease of native coronary artery without angina pectoris; D64.9 Anemia, unspecified; J96.11 Chronic respiratory failure with hypoxia
CPT/HCPCS: 36415; 36600; 71045; 80048; 82803; 82962; 83605; 83735; 84484; 85014; 85018; 85025; 87633; 93005; 94640; 94667; 94668; 97110; 97162; 97165; 97530; 97535; 99285; 99406; A4216

== ENCOUNTER 2018-07-24 19:03 | Inpatient (IN) | payer MEDICAID, SELFPAY ==
[2018-06-24 13:49] VITALS: BMI 35.3
[2018-07-24] VITALS (11 sets, daily range): BP systolic 102–136; BP diastolic 53–93; PULSE 77–129; RESP 15–20; TEMP 36.5–36.6; O2SAT 97–100; BMI 37.3; BMI 35.4; BMI 97.4
[2018-07-24 19:16] LABS: Bedside Glucose 110 mg/dL (70-110)
--- NOTE | 2018-07-24 19:19 | CT_ITS ---
STUDY: CT BRAIN WITHOUT CONTRAST REASON FOR EXAM: Female, 63 years old. Fell out of a wheelchair. Patient on blood thinners. Disorientation. RADIATION DOSAGE (If Supplied By Facility): CTDIvol = ( 44.99 ) mGy, DLP = ( 779.24 ) mGycm TECHNIQUE: Transaxial CT imaging of the brain was performed without administration of intravenous contrast material. Individualized dose optimization techniques were used for this CT. COMPARISON: December 25, 2017. FINDINGS: Normal soft tissue structures. Normal calvarium. There is mild cerebral atrophy with widening of the extra-axial spaces and ventricular dilatation. Normal white matter tracts of the cerebral hemispheres. Normal basal ganglia and thalami. Normal brainstem. Normal cerebellum. There is no intracranial hemorrhage. There are no findings of an acute ischemic infarction. Normal visualized paranasal sinuses. CT/Brain/Head without Contrast IMPRESSION: Chronic involutional changes without acute abnormality or interval change. Electronically Signed: Lazaro Freeman DO at 20:30 EDT Tel [phone], Service support ,
--- NOTE | 2018-07-24 19:19 | EKG12_ITS ---
Test Reason : FALL Blood Pressure : / mmHG Vent. Rate : 100 BPM Atrial Rate : 078 BPM P-R Int : 000 ms QRS Dur : 090 ms QT Int : 350 ms P-R-T Axes : 000 061 -46 degrees QTc Int : 451 ms Atrial fibrillation RSR' or QR pattern in V1 suggests right ventricular conduction delay T wave abnormality, consider inferior ischemia Abnormal ECG Confirmed by ELSY DELGADO, LUCILA ([id number]), photographic editor SUZANNE WRIGHT ([id number]) on 07/27/2018 8:00:24 AM Referred By: Jo Esposito Confirmed By:LUCILA CHIN MD
--- NOTE | 2018-07-24 19:21 | CT_ITS ---
STUDY: CT CERVICAL SPINE WITHOUT CONTRAST REASON FOR EXAM: Female, 63 years old. Fell out of wheelchair. Patient on blood thinners. RADIATION DOSAGE (If Supplied By Facility): CTDIvol = ( 27.58 ) mGy, DLP = ( 64119 ) mGycm TECHNIQUE: High resolution transaxial imaging was performed without contrast material. Sagittal and coronal images were reconstructed. Individualized dose optimization techniques were used for this CT. COMPARISON: None FINDINGS: Normal craniovertebral junction. There are degenerative changes of the anterior atlantoaxial articulation. Normal odontoid process. Normal cervical lordosis. Normal vertebral bodies and posterior osseous elements. C2-3: Normal endplates. Normal disc height and morphology. Mild facet joint degenerative change. Normal central canal and intervertebral neuroforamina. C3-4: Normal endplates. Normal disc height and morphology. Mild facet joint degenerative Normal central canal and intervertebral neuroforamina. C4-5: Normal endplates. Normal disc height and morphology. Mild facet joint degenerative change. Normal central canal and intervertebral neuroforamina. C5-6: There is minimal endplate spondylosis with slight loss of disc height. Facet and uncovertebral joint degenerative change. Normal central canal and intervertebral neuroforamina. C6-7: Normal endplates. Mild loss of disc height. There is facet joint degenerative change. Normal central canal and intervertebral neuroforamina. C7-T1: Normal endplates. Mild loss of disc height. Normal central canal and intervertebral neuroforamina. There are calcifications at the bilateral carotid bifurcations. CT/Spine Cervical without Contras IMPRESSION: Mild degenerative changes cervical spine. There is no visualized fracture or subluxation. Electronically Signed: Lazaro Freeman DO at 20:34 EDT Tel [phone], Service support ,
--- NOTE | 2018-07-24 19:21 | RAD_ITS ---
STUDY: X-RAY - PELVIS AND RIGHT HIP REASON FOR EXAM: Female, 63 years old. Posttraumatic pain TECHNIQUE: 3 views of the pelvis and hip. COMPARISON: None. FINDINGS: There is a non-specific bowel gas pattern. Normal visualized soft tissue structures. Normal bilateral iliac wings, sacroiliac joints and visualized sacrum. Normal bilateral superior and inferior pubic rami. Normal pubic symphysis. Normal bilateral ischial tuberosities. Normal visualized femoral head. There appears to be very mild foreshortening of the lateral femoral neck possibly posttraumatic. Normal acetabulum. Normal hip joint. RAD/HIP, UNI W/ Pelvis 2-3 Views IMPRESSION: Mild foreshortening of the lateral femoral neck possibly due to acute trauma. CT recommended for further evaluation. Electronically Signed: Moses Diamond MD at 20:12 EDT , Service support ,
--- NOTE | 2018-07-24 19:39 | RAD_ITS ---
STUDY: X-RAY CHEST REASON FOR EXAM: Female, 63 years old. Disoriented TECHNIQUE: PA and lateral COMPARISON: None. FINDINGS: The lungs are clear and expanded. There is no demonstrated pleural abnormality. Heart is enlarged. Normal mediastinum and sangeeta. Normal visualized pulmonary arteries. Mildly calcified aortic arch and descending thoracic aorta. Dorsal spine demonstrates moderate spondylosis. Normal visualized ribs, clavicles, and shoulders. There is no demonstrated abnormality of the visualized soft tissue structures of the upper abdomen. RAD/Chest PA and Lateral IMPRESSION: ASHD. No acute disease Electronically Signed: Moses Diamond MD at 20:10 EDT , Service support ,
[2018-07-24 19:59] LABS: International Normalized Ratio 1.1; Partial Thromboplast Time 28.6 Seconds (24.1-36.2); Prothrombin Time (Protime)PT. 13.7 SECONDS (11.7-14.9)
[2018-07-24 20:00] LABS: Absolute Lymphocyte Count 3.63 X10^3/ul (0.83-4.51); Absolute Neutrophil Count 5.1 X10^3/uL (2.0-7.7); Basophil# 0.04 X10^3/uL; Basophil% 0.4 % (0-1); Eosinophil# 0.15 X10^3/uL; Eosinophils% 1.6 % (0-5); Hematocrit 34.5 % (37-47); Hemoglobin 11.1 g/dl (12.0-15.0); Lymphocyte # 3.63 X10^3/ul (4.0); Lymphocyte % 37.6 % (19-41); Mean Corp Hgb Conc 32.2 g/gl (32-36); Mean Corpuscular Hgb 26.8 pg (27.0-32.0); Mean Corpuscular Volume 83.3 fL (81-99); Mean Platelet Vol. 11.2 fl (6.2-12.0); Monocyte# 0.76 X10^3/uL; Monocyte% 7.9 % (0-10); Neutrophil # 5.05 X10^3/uL (2.7-7.7); Neutrophil % 52.3 % (47-70); Platelet Count 272 K/mm3 (150-450); RBC Distribution Width SD 51.9 fl (35.1-43.9); Red Blood Count 4.14 M/mm3 (4.2-5.4); White Blood Count 9.7 K/mm3 (4.4-11.0)
--- NOTE | 2018-07-24 20:01 | ED.VISSUMM ---
- ER Visit Summary Date of Service: 07/24/18 Chief Complaint: Fall History of Present Illness: The patient is a [address] Camden Rolon. Patient is a poor informant. Per [facility] they found the patient face down unresponsive. When she awakened she was combative. Patient reports that she passed out and then fell out of her wheelchair. She reports that she had palpitations that preceded this. Patient did hit her head. She is on Xarelto. She reports that she has right hip pain that is 6 out of 10 in severity. She denies any shoulder or wrist pain. On review of systems patient reports she has had chills and a cough for 1 week. She does report this short of breath. She denies any chest pain, abdominal pain, nausea, vomiting, or diarrhea. No dysuria frequency. She does report that she has a little bit of headache. Physical Examination: Vitals: 98.0, 136/93, 107, 18, 97% on room air which is not hypoxic. General: Well-nourished and well-developed. Head: Normocephalic atraumatic. Neck: Supple, no lymphadenopathy. No JVD. Mild diffuse tenderness palpation over entire C-spine. No point tenderness. Full range of motion without any difficulty.. Cardiovascular: Tachycardic irregular rhythm with a 2 out of 6 systolic murmur Respiratory: No respiratory distress. Clear to auscultation bilaterally. Abdominal: Soft, mild diffuse tenderness to palpation, nondistended, normal bowel sounds. No guarding, rebound, or peritoneal signs. Back: Nontender. Extremities: Mild tenderness palpation over the right greater trochanter. No pain with internal/external rotation of her hip, no edema. Skin: Normal color, no rash. Neurologic: Alert and oriented ?2. Cranial nerves II through XII are intact. Normal strength and sensation. Psych: Normal affect. Test Results: EKG is A. fib at 100. Is unchanged from June 082018. Troponin is negative. UA is normal. LFTs show an alk phos of 140. Coags are normal. Chem-7 shows a glucose of 112. CBC shows a hemoglobin 11.1. Chest x-ray shows no acute disease. Right hip x-ray is read as question shortened femoral neck. Because of this a CT of her hip was obtained which was negative. CT brain shows chronic changes. CT C-spine shows degenerative changes. Right wrist x-ray shows no fracture. Emergency Department Course and Treatment: Patient was treated albuterol Atrovent aerosols. She is given a dose of Solu-Medrol IV. She was given Cardizem IV. Her heart rate has decreased from the 120s to the 80s to 90s. She is resting comfortably. Treatment Plan: The patient was discussed with Dr. Esposito. She will be admitted for further evaluation and treatment. Disposition: Admitted in improved condition. Impression: 1. Atrial fibrillation with RVR. 2. Coagulopathy on Xarelto. 3. Closed head injury. 4. COPD exacerbation. This note was generated with [employer] dictation software. It may contain incorrect words, spelling, and punctuation that were not noted in review of the chart prior to signing ED Disposition - Plan for ED Patient: Referrals: Camden Burger [Primary Care Provider] -
--- NOTE | 2018-07-24 20:04 | ED.DCSUM_ITS ---
- ER Visit Summary Date of Service: 07/24/18 Chief Complaint: Fall History of Present Illness: The patient is a [address] Camden Rolon. Patient is a poor informant. Per [facility] they found the patient face down unresponsive. When she awakened she was combative. Patient reports that she passed out and then fell out of her wheelchair. She reports that she had palpitations that preceded this. Patient did hit her head. She is on Xarelto. She reports that she has right hip pain that is 6 out of 10 in severity. She denies any shoulder or wrist pain. On review of systems patient reports she has had chills and a cough for 1 week. She does report this short of breath. She denies any chest pain, abdominal pain, nausea, vomiting, or diarrhea. No dysuria frequency. She does report that she has a little bit of headache. Physical Examination: Vitals: 98.0, 136/93, 107, 18, 97% on room air which is not hypoxic. General: Well-nourished and well-developed. Head: Normocephalic atraumatic. Neck: Supple, no lymphadenopathy. No JVD. Mild diffuse tenderness palpation over entire C-spine. No point tenderness. Full range of motion without any difficulty.. Cardiovascular: Tachycardic irregular rhythm with a 2 out of 6 systolic murmur Respiratory: No respiratory distress. Clear to auscultation bilaterally. Abdominal: Soft, mild diffuse tenderness to palpation, nondistended, normal bowel sounds. No guarding, rebound, or peritoneal signs. Back: Nontender. Extremities: Mild tenderness palpation over the right greater trochanter. No pain with internal/external rotation of her hip, no edema. Skin: Normal color, no rash. Neurologic: Alert and oriented ?2. Cranial nerves II through XII are intact. Normal strength and sensation. Psych: Normal affect. Test Results: EKG is A. fib at 100. Is unchanged from June 082018. Troponin is negative. UA is normal. LFTs show an alk phos of 140. Coags are normal. Chem-7 shows a glucose of 112. CBC shows a hemoglobin 11.1. Chest x- ray shows no acute disease. Right hip x-ray is read as question shortened femoral neck. Because of this a CT of her hip was obtained which was negative. CT brain shows chronic changes. CT C-spine shows degenerative changes. Right wrist x-ray shows no fracture. Emergency Department Course and Treatment: Patient was treated albuterol Atrovent aerosols. She is given a dose of Solu-Medrol IV. She was given Cardizem IV. Her heart rate has decreased from the 120s to the 80s to 90s. She is resting comfortably. Treatment Plan: The patient was discussed with Dr. Esposito. She will be admitted for further evaluation and treatment. Disposition: Admitted in improved condition. Impression: 1. Atrial fibrillation with RVR. 2. Coagulopathy on Xarelto. 3. Closed head injury. 4. COPD exacerbation. This note was generated with [employer] dictation software. It may contain incorrect words, spelling, and punctuation that were not noted in review of the chart prior to signing ED Disposition - Plan for ED Patient: Referrals: Camden Burger [Primary Care Provider] -
[2018-07-24 20:08] LABS: POSITIVE COUNT NO; POSITIVE DIFFERENTIAL NO; POSITIVE MORPHOLOGY NO
[2018-07-24 20:17] LABS: Bacteria 0 SEEN /hpf (None Seen); Mucous, Urine 0 SEEN /hpf (<or=2+); Red Blood Cells-Urine 0 SEEN /hpf (0-5); Squamous Epithelial Cells - UA 0 SEEN /hpf (5-10); White Blood Cells 0 SEEN /hpf (0-5)
[2018-07-24 20:18] LABS: ALB/GLOB Ratio 0.9 RATIO (0.9-2.4); AST(SGOT) 17 U/L (15-37); Alanine Aminotransfer ALT/SGPT 17 U/L (13-56); Albumin, Serum 3.2 g/dL (3.2-5.0); Alkaline Phosphatase 140 U/L (45-117); Anion Gap 8 (5-15); BUN 17 mg/dL (7-18); BUN/Creat Ratio 24.4 RATIO (10-20); Calcium,Total 8.5 mg/dL (8.5-10.1); Chloride 101 mmol/L (98-107); EST Glomerular Filtration Rate 90 mL/min (>60); Est Glom Filt Rate - Afr Amer 109 mL/min (>60); Estimated Creatinine Clearance 62.07 ml/min; Globulin 3.5 g/dL (2.2-4.2); Glucose 112 mg/dL (74-106); Protein, Total 6.7 g/dL (6.4-8.2); Sodium Level 136 mmol/L (136-145)
[2018-07-24 20:25] LABS: Color, Urine Yellow (Yellow); Glucose, Dipstick Normal (Normal); Ketone-Dipstick Negative (Negative); Leukocyte Esterase-Dipstick Negative /ul (Negative); Nitrite-Dipstick Negative (Negative); Occult Blood-Urine Negative /ul (Negative); Protein-Dipstick Negative (Negative); Urine Bilirubin Dipstick Negative (Negative); Urine Clarity Clear (Clear); Urine Urobilinogen Normal (Normal); Urine pH 6.5 (5.0 - 8.0)
--- NOTE | 2018-07-24 20:25 | CT_ITS ---
CT of the right hip INDICATION: Posttraumatic pain TECHNIQUE: CT of the right hip was performed in the axial plane followed by sagittal and coronal reconstructions. Radiographic technique was optimized to limit patient radiation dose. DLP was 935.92 FINDINGS: No evidence for acute fracture or dislocation of the hip. The joint space is maintained. The acetabulum is intact as is the visualized portion of the pelvis CT/Extremity Lower without Contra IMPRESSION: No evidence for acute fracture of the hip or visualized portions of the pelvis Electronically Signed: Moses Diamond MD at 21:28 EDT , Service support ,
[2018-07-24] MEDS: dilTIAZem 25 MG/5 ML Vial 20 MG IV BOLUS (21:09)
[2018-07-24 21:21] LABS: Lactic Acid 1.1 mmol/L (0.4-2.0)
--- NOTE | 2018-07-24 21:27 | RAD_ITS ---
STUDY: X-RAY - RIGHT WRIST REASON FOR EXAM: Female, 63 years old. Posttraumatic pain TECHNIQUE: 3 view(s) of the wrist were obtained. COMPARISON: None. FINDINGS: Normal visualized distal radius and ulna. Normal radiocarpal articulation. Normal distal radioulnar articulation. Normal carpal bones. Normal carpal articulations. Mild arthrosis of the carpometacarpal articulation of the thumb. Normal second through fifth carpometacarpal articulations. Normal visualized metacarpal bones. The soft tissue structures are unremarkable. RAD/Wrist min 3 Views IMPRESSION: Mild degenerative change. No evidence for acute fracture or dislocation Electronically Signed: Moses Diamond MD at 21:49 EDT , Service support ,
--- NOTE | 2018-07-24 21:37 | PCM.HP.STD ---
Problem List (1) Fall Status: Acute Qualifiers: Encounter type: initial encounter Qualified Code(s): W19.XXXA - Unspecified fall, initial encounter (2) Syncope Status: Acute Qualifiers: Syncope type: unspecified Qualified Code(s): R55 - Syncope and collapse (3) Atrial fibrillation with RVR Status: Acute (4) COPD exacerbation Status: Acute (5) Essential hypertension Status: Chronic (6) ABDULLAHI (obstructive sleep apnea) Status: Chronic (7) Tobacco dependence due to cigarettes Status: Chronic (8) Anemia Status: Chronic Qualifiers: Anemia type: unspecified type Qualified Code(s): D64.9 - Anemia, unspecified Comment: Normocytic (9) Morbid obesity with BMI of 40.0-44.9, adult Status: Chronic (10) COPD (chronic obstructive pulmonary disease) Status: Chronic Qualifiers: COPD type: emphysema Emphysema type: centrilobular Qualified Code(s): J43.2 - Centrilobular emphysema (11) Chronic pain Status: Chronic Qualifiers: (12) Chronic atrial fibrillation Status: Chronic (13) Chronic hypoxemic respiratory failure Status: Chronic Comment: non-compliant with oxygen (14) Hyperlipemia Status: Chronic Qualifiers: Hyperlipidemia type: unspecified (15) Type 2 diabetes mellitus Status: Chronic Qualifiers: Diabetes mellitus 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 Diabetes mellitus complication status: with other specified complication Qualified Code(s): E11.69 - Type 2 diabetes mellitus with other specified complication; 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 Comment: uncontrolled (16) GERD (gastroesophageal reflux disease) Status: Chronic Qualifiers: Esophagitis presence: esophagitis presence not specified (17) Anxiety Status: Chronic History of Present Illness Date of Admission: 07/24/18 Chief Complaint: Fall, Recent cough, Dyspnea, Wheezing The patient is a 62 y/o F w/ PMHx: Obesity, Tobacco use, Anxiety and Depression, Chronic Hypoxic Respiratory Failure (2-3L NC baseline) w/ Chronic COPD, HTN, HLD, Diabetes mellitus type II, History of SVT, Permanent atrial fibrillation, CAD, Cardiomyopathy Unclear Type who presents to the [facility] on 07/24/18 with 2 day history of reported worsening dyspnea, nonproductive cough, wheezing without fever or chills with fall at the SNF facility out of her wheelchair, possibly following a coughing fit, unresponsive and confused initially per staff but improved during evaluation in the ED. Patient noted complaint of R hip and R wrist discomfort primarily but was moving without marked issue and using with distraction. Work-up in the ED included T 98, heart rate initially 129 but improved to the 90s, BP 136/93, respiratory rate 17, 100% on room air, CBC with WC 9.7, hemoglobin 11.1, platelet 272 without market shift, unremarkable coags, CMP only notable for glucose 112, alkaline phosphatase 140, troponin less than 0.015, lactic acid 1.1, urinalysis unremarkable, CT brain with no acute findings, CT cervical spine with mild degenerative changes with no visualized fracture or subluxation, plain film of the pelvis and hip with mild foreshortening in the lateral femoral neck possibly secondary to acute trauma with follow-up right lower extremity CT of the hip with no acute evidence for fracture, chest x-ray with chronic changes with no acute cardio primary findings, plain film of the right wrist with luminary read with no acute trauma, EKG with as noted initially atrial for ablation with RVR but improved upon current evaluation. In ED patient ministered 20 mg IV bolus x1 Cardizem. Past Medical History Past Medical History (Chronic Problems): Chronic Problems (Last Reviewed 06/24/18 @ 17:00 by Marylu Howell NP-C) Essential hypertension (Chronic) Abdominal pain (Chronic) ABDULLAHI (obstructive sleep apnea) (Chronic) Tobacco dependence due to cigarettes (Chronic) Non-compliance (Chronic) Hypersomnia (Chronic) Anemia (Chronic) Normocytic Morbid obesity with BMI of 40.0-44.9, adult (Chronic) COPD (chronic obstructive pulmonary disease) (Chronic) Chronic pain (Chronic) Chronic atrial fibrillation (Chronic) Chronic hypoxemic respiratory failure (Chronic) non-compliant with oxygen Hyperlipemia (Chronic) Type 2 diabetes mellitus (Chronic) uncontrolled GERD (gastroesophageal reflux disease) (Chronic) Anxiety (Chronic) Insomnia (Chronic) Medical History: Medical History (Last Reviewed 06/24/18 @ 17:00 by Marylu Howell NP-C) Essential hypertension (Chronic) I10 Hypersomnia (Chronic) G47.10 Anemia (Chronic) D64.9 Normocytic Morbid obesity with BMI of 40.0-44.9, adult (Chronic) E66.01, Z68.41 COPD (chronic obstructive pulmonary disease) (Chronic) J44.9 Chronic pain (Chronic) G89.29 Chronic atrial fibrillation (Chronic) I48.2 Chronic hypoxemic respiratory failure (Chronic) J96.11 non-compliant with oxygen Hyperlipemia (Chronic) E78.5 Type 2 diabetes mellitus (Chronic) E11.9 uncontrolled GERD (gastroesophageal reflux disease) (Chronic) K21.9 Anxiety (Chronic) F41.9 Insomnia (Chronic) G47.00 Osteoporosis M81.0 Cardiomyopathy (Ruled-out) I42.9 EF in Oct 2015 45-50 HTN (hypertension) (Inactive) I10 Left ankle pain (Inactive) M25.572 Non-compliance (Inactive) Z91.19 withn follow up with pulmonary Allergies venom-honey bee [bee venom (honey bee)] Allergy (Verified 07/24/18 19:05) Swelling levofloxacin [From Levaquin] Adverse Reaction (Verified 07/24/18 19:05) Nausea oxycodone HCl [From Percocet] Adverse Reaction (Verified 07/24/18 19:05) Nausea Penicillins Adverse Reaction (Verified 07/24/18 19:05) Nausea/Vom/Diarrhea Home Medications: Ambulatory Orders Medication Instructions Recorded Budesonide/Formoterol 160/4.5 2 puff INHALATION BID 05/12/17 [Symbicort 160/4.5 Mcg Inhaler (SP)] Bupropion HCl [Bupropion HCl Sr] 150 mg PO BID 05/12/17 docusate sodium 100 mg capsule 100 mg PO QHS 09/01/17 Rivaroxaban [Xarelto] 20 mg PO DAILY #0 11/03/17 Duloxetine HCl 60 mg PO DAILY 12/23/17 Gabapentin [Neurontin] 100 mg PO TIDCM 12/23/17 Loperamide [Imodium] 2 mg PO PRN PRN 12/23/17 Albuterol Aerosols [Ventolin 2.5 mg INHALATION Q6HWA.RT PRN 02/01/18 Aerosols] Potassium Chloride [K-Dur] 20 meq PO DAILY #30 tab 02/04/18 Hydrocodone/Acetaminophen [[place] 1 tab PO Q6H PRN PRN 02/07/18 5-325 Tablet] Furosemide [Lasix] 40 mg PO DAILY 06/08/18 Magnesium Oxide [Mag-Ox 400] 400 mg PO BIDCM 06/08/18 Oxybutynin Chloride [Oxybutynin 5 mg PO DAILY 06/08/18 Chloride ER] Pantoprazole Sodium [Protonix] 40 mg PO DAILY 06/08/18 Primidone 50 mg PO BID 06/08/18 ferrous fumarate 325 mg (106 mg 325 mg PO DAILY tab 06/08/18 iron) tablet furosemide 20 mg tablet 20 mg PO DAILY tab 06/08/18 lorazepam 0.5 mg tablet 0.5 mg PO DAILY tab 06/08/18 lorazepam 0.5 mg tablet 0.5 mg PO Q6H PRN tab 06/08/18 rosuvastatin 20 mg tablet 20 mg PO QHS 06/08/18 Fluticasone 0.05% [Flonase Nasal 2 spray NASAL DAILY nasal.sry 06/12/18 [place]] Insulin Lispro [Humalog KwikPen] See Protocol SQ ACHS insuln.pen 06/12/18 Loratadine [Claritin] 10 mg PO QHS tab 06/12/18 Calcium Carbonate 500 mg PO Q6H PRN 07/24/18 Guaifenesin [Mucinex] 1,200 mg PO BID 07/24/18 Ipratropium/Albuterol Sulfate 3 ml INHALATION Q6H.RT 07/24/18 [Duoneb] Metoprolol Tartrate 50 mg PO BID 07/24/18 Polyethylene Glycol 3350 [Miralax] 17 gm PO DAILY 07/24/18 Surgical History: Surgical History (Last Reviewed 06/24/18 @ 17:00 by Marylu Howell AUDIOLOGIST-C) S/P laparoscopic cholecystectomy Z90.49 12/ Cataract extraction status Z98.49 History of lumbar surgery Z98.890 History of tonsillectomy and adenoidectomy Z98.890 History of total hysterectomy Z90.710 Surgical History: cholecystectomy, hysterectomy, tonsillectomy, - - Lumbar surgery. 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 Sibling Family History: Family History (Last Reviewed 06/24/18 @ 17:00 by FRANKLIN Philippe) Sister Arthritis Diabetes Father Cancer Aunt Diabetes History Items: Asthma, COPD, Hypertension Review of Systems Constitutional: Reports: Malaise, Weakness, Fatigue. Denies: Chills, Fever, Weight Change HEENT: Reports: Head Aches. Denies: Sinus Congestion, Sinus Drainage Cardiovascular: Reports: Syncope. Denies: Chest Pain, Palpitations Respiratory: Reports: Cough, Shortness of Breath, Shortness of breath at rest, Shortness of breath upon exertion, Sputum production, Wheezing Gastrointestinal: Denies: Abdominal Pain, Nausea, Vomiting Genitourinary: Denies: Dysuria Musculoskeletal: Reports: Back Pain, Joint Pain. Denies: Joint Tenderness Skin: Denies: Rash, Wounds Neurological: Reports: Confusion. Denies: Focal weakness, Numbness, Tingling Psychiatric: Reports: Anxiety, Depression. Denies: Homicidal Ideations, Suicidal Ideations Hematologic/ Lymphatic: Reports: Anemia, Easy Bruising, Easy Bleeding VTE Information - Inpt Only VTE Present on Admission: No VTE Mechan Device Prophylaxis: SCD's VTE Pharm Prophylaxis ordered?: No Reason prophylaxis not ordered:: Treatment Not Indicated - On chronic oral anticoagulation. Patient Problems: Active and Suspected Problems (Last Reviewed 06/24/18 @ 17:00 by FRANKLIN Philippe) Fall (Acute) Syncope (Acute) Atrial fibrillation with RVR (Acute) COPD exacerbation (Acute) Subjective: Patient improved, notes still discomfort to the right wrist and right hip but otherwise status is improved, oriented x4. Objective: Physical Examination: General: awake, alert, oriented x > 4, cooperative, seated upright in the ED bed, fatigued, rate improved, NAD. Skin: normal color, turgor, no icterus, cyanosis. HEENT: AT/NC, EOMI, PERRLA, mildly dry MM, no obvious carotid bruit, difficult to assess JVD given thickened neck. Lungs: Diminished BS throughout, soft end expiratory wheezing bases, no rhonchi, rales noted. Heart: Rate controlled, irregular; no gallop, rub audible. Abdomen: soft, obese, NTTP, ND, normal BS, unable to assess HSM well secondary to habitus. Extremities: no cyanosis, clubbing or edema. Neurological: patient awake, alert, oriented x 3; cognitive function intact; pupils equally reactive to light and accomodation; cranial nerves II-XII grossly normal, moving all 4 extremities although complaining of R wrist and hip discomfort, no focal deficits, strength accordinlgy severely globally decrease secondary to acute presentation. Psychiatric: affect appears fatigued, no acute evidence of depressive or anxiety feelings. - Physical Exam Vital Signs Temp Pulse Resp BP Pulse Ox 98 F 120 H 20 H 108/66 99 07/24/18 19:05 07/24/18 21:05 07/24/18 21:05 07/24/18 21:05 07/24/18 21:05 Oxygen Delivery Method Room Air Weight: 197 lb 12.074 oz Body Mass Index (BMI) 37.3 Finger Stick Blood Glucose 159 Laboratory Tests Past 24 Hrs 07/24/18 07/24/18 07/24/18 19:10 19:10 19:10 WBC 9.7 RBC 4.14 L Hgb 11.1 L Hct 34.5 L MCV 83.3 MCH 26.8 L MCHC 32.2 RDW 17.0 H RDW Differential 51.9 H Plt Count 272 MPV 11.2 Immature Gran % (Auto) 0.200 Neut % (Auto) 52.3 Lymph % (Auto) 37.6 Dare % (Auto) 7.9 Eos % (Auto) 1.6 Baso % (Auto) 0.4 Absolute Neuts (auto) 5.1 Absolute Lymphs (auto) 3.63 Total Counted Not Reportable PT 13.7 INR 1.1 APTT 28.6 Sodium 136 Potassium 4.0 Chloride 101 Carbon Dioxide 27.0 Anion Gap 8 BUN 17 Creatinine 0.70 Estim Creat Clear Calc 62.07 Est GFR (MDRD) Af Amer 109 Est GFR (MDRD) Non-Af 90 BUN/Creatinine Ratio 24.4 H Glucose 112 H Lactic Acid Calcium 8.5 Total Bilirubin 0.20 AST 17 ALT 17 Alkaline Phosphatase 140 H Troponin I < 0.015 Total Protein 6.7 Albumin 3.2 Globulin 3.5 Albumin/Globulin Ratio 0.9 Urine Color Urine Clarity Urine pH Ur Specific [place] Urine Protein Urine Glucose (UA) Urine Ketones Urine Occult Blood Urine Nitrite Urine Bilirubin Urine Urobilinogen Ur Leukocyte Esterase Urine RBC Urine WBC Ur Squamous Epith Cells Urine Bacteria Urine Mucus 07/24/18 07/24/18 20:03 20:10 WBC RBC Hgb Hct MCV MCH MCHC RDW RDW Differential Plt Count MPV Immature Gran % (Auto) Neut % (Auto) Lymph % (Auto) Dare % (Auto) Eos % (Auto) Baso % (Auto) Absolute Neuts (auto) Absolute Lymphs (auto) Total Counted PT INR APTT Sodium Potassium Chloride Carbon Dioxide Anion Gap BUN Creatinine Estim Creat Clear Calc Est GFR (MDRD) Af Amer Est GFR (MDRD) Non-Af BUN/Creatinine Ratio Glucose Lactic Acid 1.1 Calcium Total Bilirubin AST ALT Alkaline Phosphatase Troponin I Total Protein Albumin Globulin Albumin/Globulin Ratio Urine Color Yellow Urine Clarity Clear Urine pH 6.5 Ur Specific [place] 1.010 Urine Protein Negative Urine Glucose (UA) Normal Urine Ketones Negative Urine Occult Blood Negative Urine Nitrite Negative Urine Bilirubin Negative Urine Urobilinogen Normal Ur Leukocyte Esterase Negative Urine RBC 0 SEEN Urine WBC 0 SEEN Ur Squamous Epith Cells 0 SEEN Urine Bacteria 0 SEEN Urine Mucus 0 SEEN POC Glucose 07/24/18 19:10 POC Glucose 110 Assessment/Plan All Active Problems (Last Reviewed 06/24/18 @ 17:00 by Marylu Howell, THANG-C) Fall (Acute) Syncope (Acute) Atrial fibrillation with RVR (Acute) COPD exacerbation (Acute) COPD with acute exacerbation (Acute) Bradycardia (Resolved) Digoxin toxicity (Acute) Cholecystitis (Acute) Acute encephalopathy (Acute) Acute kidney injury (Acute) HCAP (healthcare-associated pneumonia) (Acute) Acute and chronic respiratory failure with hypoxia (Resolved) Acute bronchitis due to human metapneumovirus (Resolved) Atrial fibrillation with RVR (Resolved) COPD with acute exacerbation (Resolved) Gram-negative pneumonia (Resolved) Syncope (Resolved) Cardiomyopathy (Ruled-out) The patient is a 62 y/o F w/ PMHx: Obesity, Tobacco use, Anxiety and Depression, Chronic Hypoxic Respiratory Failure (2-3L NC baseline) w/ Chronic COPD, HTN, HLD, Diabetes mellitus type II, History of SVT, Permanent atrial fibrillation, CAD, Cardiomyopathy Unclear Type who presents to the [facility] on 07/24/18 with 2 day history of reported worsening dyspnea, nonproductive cough, wheezing without fever or chills with fall at the SNF facility out of her wheelchair, possibly following a coughing fit, unresponsive and confused initially per staff but improved during evaluation in the ED. (1) Acute COPD Exacerbation with Chronic Hypoxic Respiratory Failure: Work-up in the ED included T 98, heart rate initially 129 but improved to the 90s, BP 136/93, respiratory rate 17, 100% on room air, CBC with WC 9.7, hemoglobin 11.1, platelet 272 without market shift, unremarkable coags, CMP only notable for glucose 112, alkaline phosphatase 140, troponin less than 0.015, lactic acid 1.1, urinalysis unremarkable, CT brain with no acute findings, CT cervical spine with mild degenerative changes with no visualized fracture or subluxation, plain film of the pelvis and hip with mild foreshortening in the lateral femoral neck possibly secondary to acute trauma with follow-up right lower extremity CT of the hip with no acute evidence for fracture, chest x-ray with chronic changes with no acute cardio primary findings, plain film of the right wrist with luminary read with no acute trauma, EKG with as noted initially atrial for ablation with RVR but improved upon current evaluation. Will admit to PCU given initial atrial fibrillation with RVR, maintain on oxygen supplementation with weaned to home usage as able, respiratory viral panel and sputum Cx requested, continue ATC duonebs, PRN albuterol, IV solumedrol, defer abx given no marked CBC WBC elevation and afebrile, HOB, IS parameters. (2) Permanent atrial fibrillation w/ Episode RVR: EKG in the ED with atrial fibrillation with RVR, improved w/ cardizem bolus, will maintain on telemetry, cycle cardiac enzymes, obtain mag level, continue home metoprolol, xarelto regimen. (3) Fall, ? Syncopal event, Suspect Vasovagal with Coughing Fit: As noted CT head and CT cervical spine with no acute findings, cardiac enzyme unremarkable, initial EKG with atrial fibrillation with RVR although improved with Cardizem bolus, will maintain on telemetry, cycle cardiac enzymes, repeat EKGs as needed, continue home cardiac medications. (4) Cardiomyopathy Unclear Type: 01/16/18 ECHO with normal LV systolic function, EF 65%, mildly enlarged LA, trivial MVI, mild TVI, trivial YOANA, RVSP 38 mmHg, diastolic function indeterminate. Maintain on home Xarelto, statin, beta-lou, Lasix therapy. (5) CAD: Will continue home regimen relative, statin, beta-lou therapy. (6) Hypertension: Continue home regimen including Lasix, metoprolol regimen. (7) Hyperlipidemia: Continue home statin regimen. (8) Anxiety and Depression: Continue home regimen bupropion, duloxetine with clarification needed on home oral lorazepam regimen. (9) Tobacco Abuse: Encouraged continued cessation, RT cessation evaluation requested. (10) Obesity: Weight loss and lifestyle changes encouraged. (12) Diabetes mellitus type II: Hold oral home regimen, continue home insulin regimen, ADA diet, accu checks w/ ISS. (13) ABDULLAHI: Prior reported history of ABDULLAHI, non-compliant. (14) DVT prophylaxis: SCDs, xarelto. (15) Code Status: FULL CODE. Code Visit Inpatient E&M: 32334 Init Hosp L3
[2018-07-24] MEDS: Ipratropium/Albuterol Sulfate 3 ML AMPUL.NEB INHALATION (21:52)
[2018-07-24] MEDS: MethylPREDNISolone 125 MG/2 ML Vial IV (22:15)
--- NOTE | 2018-07-24 22:23 | ED.RN ---
[facility] CONTACTED ABOUT PT ADMISSION. SPOKE WITH NURSE ASKEW.
[2018-07-24 22:52] LABS: Magnesium 1.9 mg/dL (1.6-2.6)
[2018-07-24] MEDS: HYDROcodone Bitartrate/Apap 5/325 Tablet PO (23:16)
[2018-07-24] MEDS: 0.9% Normal Saline 1,000 ML 100 ML IV (23:16)
[2018-07-24] MEDS: 0.9% NaCl Peripheral Flush Adult/Peds IV ×2 (23:16→23:37)
[2018-07-24 23:26] LABS: Bedside Glucose 107 mg/dL (70-110)
[2018-07-24] MEDS: Docusate Sodium 100 MG Capsule PO (23:36)
[2018-07-24] MEDS: Primidone 50 MG Tablet PO (23:36)
[2018-07-24] MEDS: buPROPion (SR) 150 MG Tablet.SA PO (23:36)
[2018-07-24] MEDS: guaiFENesin 1,200 MG Tablet 1200 MG PO (23:36)
[2018-07-24] MEDS: Atorvastatin Calcium 40 MG Tablet PO (23:37)
[2018-07-24] MEDS: Metoprolol Tartrate 50 MG Tablet PO (23:37)
[2018-07-24] MEDS: Loratadine 10 MG Tablet PO (23:37)
[2018-07-25] VITALS (16 sets, daily range): BP systolic 104–142; BP diastolic 42–78; PULSE 79–106; RESP 15–22; TEMP 36.3–36.7; O2SAT 94–99
[2018-07-25 01:39] LABS: Absolute Lymphocyte Count 0.99 X10^3/ul (0.83-4.51); Absolute Neutrophil Count 8.6 X10^3/uL (2.0-7.7); Basophil# 0.02 X10^3/uL; Basophil% 0.2 % (0-1); Eosinophil# 0.08 X10^3/uL; Eosinophils% 0.8 % (0-5); Hematocrit 33.6 % (37-47); Hemoglobin 10.8 g/dl (12.0-15.0); Lymphocyte # 0.99 X10^3/ul (4.0); Lymphocyte % 9.9 % (19-41); Mean Corp Hgb Conc 32.1 g/gl (32-36); Mean Corpuscular Hgb 26.9 pg (27.0-32.0); Mean Corpuscular Volume 83.8 fL (81-99); Mean Platelet Vol. 10.4 fl (6.2-12.0); Neutrophil # 8.55 X10^3/uL (2.7-7.7); Neutrophil % 85.9 % (47-70); Platelet Count 181 K/mm3 (150-450); RBC Distribution Width CV 16.6 % (11.6-14.6); Red Blood Count 4.01 M/mm3 (4.2-5.4)
[2018-07-25 01:43] LABS: POSITIVE COUNT NO; POSITIVE DIFFERENTIAL NO; POSITIVE MORPHOLOGY NO
[2018-07-25 02:56] LABS: ALB/GLOB Ratio 0.9 RATIO (0.9-2.4); AST(SGOT) 12 U/L (15-37); Alanine Aminotransfer ALT/SGPT 14 U/L (13-56); Alkaline Phosphatase 127 U/L (45-117); Anion Gap 8 (5-15); BUN 14 mg/dL (7-18); BUN/Creat Ratio 19.8 RATIO (10-20); Calcium,Total 8.5 mg/dL (8.5-10.1); Chloride 104 mmol/L (98-107); Creatinine, Serum 0.71 mg/dL (0.55-1.02); EST Glomerular Filtration Rate 89 mL/min (>60); Est Glom Filt Rate - Afr Amer 107 mL/min (>60); Globulin 3.2 g/dL (2.2-4.2); Glucose 208 mg/dL (74-106); Potassium 3.9 mmol/L (3.5-5.1); Protein, Total 6.2 g/dL (6.4-8.2); Sodium Level 136 mmol/L (136-145)
[2018-07-25] MEDS: 0.9% NaCl Peripheral Flush Adult/Peds IV ×2 (04:59→14:35)
[2018-07-25] MEDS: Insulin Lispro 100 UNIT/ML INSULN.PEN SC ×4 (06:36→22:27)
[2018-07-25] MEDS: HYDROcodone Bitartrate/Apap 5/325 Tablet PO ×2 (06:37→14:35)
[2018-07-25 06:46] LABS: Bedside Glucose 219 mg/dL (70-110)
[2018-07-25] MEDS: Ipratropium/Albuterol Sulfate 3 ML AMPUL.NEB INHALATION ×4 (07:19→19:18)
[2018-07-25] MEDS: guaiFENesin 1,200 MG Tablet 1200 MG PO ×2 (10:39→22:10)
[2018-07-25] MEDS: buPROPion (SR) 150 MG Tablet.SA PO ×2 (10:40→22:10)
[2018-07-25] MEDS: Tolterodine Tartrate 2 MG CAP.SA PO (10:40)
[2018-07-25] MEDS: Primidone 50 MG Tablet PO ×2 (10:40→22:10)
[2018-07-25] MEDS: DULoxetine Hcl 60 MG Capsule PO (10:40)
[2018-07-25] MEDS: Gabapentin 100 MG Capsule PO ×3 (10:40→17:46)
[2018-07-25] MEDS: Metoprolol Tartrate 50 MG Tablet PO ×2 (10:40→22:10)
[2018-07-25] MEDS: Furosemide 40 MG Tablet PO (10:40)
[2018-07-25] MEDS: Pantoprazole Sodium 40 MG Tablet PO (10:40)
[2018-07-25] MEDS: Magnesium Oxide 400 MG Tablet PO ×2 (10:40→17:46)
[2018-07-25] MEDS: Ferrous Sulfate 325 MG Tablet PO (10:40)
[2018-07-25] MEDS: LORazepam 0.5 MG Tablet PO (10:41)
[2018-07-25] MEDS: Fluticasone 0.05% 1 SPRAY NASAL.SRY 2 SPRAY NASAL (10:42)
[2018-07-25] MEDS: Rivaroxaban 20 MG Tablet PO (10:48)
[2018-07-25] MEDS: Morphine 2 MG/ML Syringe IV ×2 (10:48→20:10)
--- NOTE | 2018-07-25 10:54 | PCM.PN.HOSP ---
Patient Problems: Active and Suspected Problems (Last Reviewed 06/24/18 @ 17:00 by FRANKLIN Philippe) Fall (Acute) Syncope (Acute) Atrial fibrillation with RVR (Acute) COPD exacerbation (Acute) Subjective: Patient seen and examined. She was admitted from her residential on 07/24/2018 with a complaint of a fall out of a wheelchair at her being home. Patient states she had been coughing and had a shortness of breath as well as wheezing and had a brief syncopal episode. She then fell out of her chair and hit her right hip. She was brought to the ED with complaint of right hip discomfort. Imaging done in the ED was negative for any fracture. She is been managed for acute COPD exacerbation as well as an episode of A. fib with RVR, mechanical fall and syncope. Patient seen and examined this morning. She says she feels better. She denies any fever or chills, any palpitations, any chest pain, any diarrhea vomiting. She did admit to some right hip pain. Labs and vitals reviewed. Vitals/I&O's: Vital Signs Temp Pulse Resp BP Pulse Ox 97.3 F L 106 H 18 113/72 95 07/25/18 10:12 07/25/18 10:40 07/25/18 10:12 07/25/18 10:12 07/25/18 10:12 Oxygen Flow Rate (L/min) 2 Oxygen Delivery Method Room Air Weight: 187 lb 6.287 oz Body Mass Index (BMI) 35.4 Finger Stick Blood Glucose 159 Intake and Output for Last 24 Hours 07/23/18 07/24/18 07/25/18 23:59 23:59 23:59 Intake Total 647 / 647 Balance 647 / 647 General: Alert, Oriented x3, Cooperative, No apparent distress HEENT: Atraumatic, PERRLA, EOMI, Normocephalic Oral: Dry Mucosa Neck: Supple, No JVD Lungs: - - Mildly decreased breath sounds bibasilarly. Episodic wheezing. Cardiovascular: Regular rate, Normal S1, Normal S2, No murmurs, - - irregular rhythm; in Afib, rate controlled Abdomen: Bowel Sounds Present, Soft, Non Tender, Non-Distended, No Hepato-splenomegaly Extremities: No clubbing, No cyanosis, No edema, Capillary Refill Less than 3 Seconds Skin: No rashes, No breakdown Musculoskeletal: No Tenderness to Palpation of Joints or Extremities Lymphatic: No Cervical, Supraclavicular, or Inguinal Adenopathy Neurological: Cranial nerves II-XII grossly intact, Neuro grossly intact, Motor Exam 5/5 strength throughout Psych/Mental Status: Normal Affect, Appropriate, Alert and oriented to time, place, person, mood and affect Laboratory Results 07/24/18 19:10: POC Glucose 110 07/24/18 19:10: WBC 9.7, RBC 4.14 L, Hgb 11.1 L, Hct 34.5 L, MCV 83.3, MCH 26.8 L, MCHC 32.2, RDW 17.0 H, RDW Differential 51.9 H, Plt Count 272, MPV 11.2, Immature Gran % (Auto) 0.200, Neut % (Auto) 52.3, Lymph % (Auto) 37.6, [place] % (Auto) 7.9, Eos % (Auto) 1.6, Baso % (Auto) 0.4, Absolute Neuts (auto) 5.1, Absolute Lymphs (auto) 3.63, Total Counted Not Reportable 07/24/18 19:10: PT 13.7, INR 1.1, APTT 28.6 07/24/18 19:10: Sodium 136, Potassium 4.0, Chloride 101, Carbon Dioxide 27.0, Anion Gap 8, BUN 17, Creatinine 0.70, Estim Creat Clear Calc 62.07, Est GFR (MDRD) Af Amer 109, Est GFR (MDRD) Non-Af 90, BUN/Creatinine Ratio 24.4 H, Glucose 112 H, Calcium 8.5, Total Bilirubin 0.20, AST 17, ALT 17, Alkaline Phosphatase 140 H, Troponin I < 0.015, Total Protein 6.7, Albumin 3.2, Globulin 3.5, Albumin/Globulin Ratio 0.9 07/24/18 19:10: Magnesium 1.9 07/24/18 20:03: Lactic Acid 1.1 07/24/18 20:10: Urine Color Yellow, Urine Clarity Clear, Urine pH 6.5, Ur Specific [place] 1.010, Urine Protein Negative, Urine Glucose (UA) Normal, Urine Ketones Negative, Urine Occult Blood Negative, Urine Nitrite Negative, Urine Bilirubin Negative, Urine Urobilinogen Normal, Ur Leukocyte Esterase Negative, Urine RBC 0 SEEN, Urine WBC 0 SEEN, Ur Squamous Epith Cells 0 SEEN, Urine Bacteria 0 SEEN, Urine Mucus 0 SEEN 07/24/18 23:00: Troponin I < 0.015 07/24/18 23:11: POC Glucose 107 07/25/18 01:28: WBC 10.0, RBC 4.01 L, Hgb 10.8 L, Hct 33.6 L, MCV 83.8, MCH 26.9 L, MCHC 32.1, RDW 16.6 H, RDW Differential 51.0 H, Plt Count 181, MPV 10.4, Immature Gran % (Auto) 0.200, Neut % (Auto) 85.9 H, Lymph % (Auto) 9.9 L, [place] % (Auto) 3.0, Eos % (Auto) 0.8, Baso % (Auto) 0.2, Absolute Neuts (auto) 8.6 H, Absolute Lymphs (auto) 0.99, Total Counted Not Reportable 07/25/18 01:28: Sodium 136, Potassium 3.9, Chloride 104, Carbon Dioxide 24.0, Anion Gap 8, BUN 14, Creatinine 0.71, Estim Creat Clear Calc 61.20, Est GFR (MDRD) Af Amer 107, Est GFR (MDRD) Non-Af 89, BUN/Creatinine Ratio 19.8, Glucose 208 H, Calcium 8.5, Total Bilirubin 0.30, AST 12 L, ALT 14, Alkaline Phosphatase 127 H, Total Protein 6.2 L, Albumin 3.0 L, Globulin 3.2, Albumin/Globulin Ratio 0.9 07/25/18 01:28: Troponin I < 0.015 07/25/18 06:34: POC Glucose 219 H Diagnostic Data Brain CT 07/24/18 19:19 IMPRESSION: Chronic involutional changes without acute abnormality or interval change. Electronically Signed: Lazaro Freeman DO at 20:30 EDT Tel [phone], Service support , Cervical Spine CT 07/24/18 19:21 IMPRESSION: Mild degenerative changes cervical spine. There is no visualized fracture or subluxation. Electronically Signed: Lazaro Freeman DO at 20:34 EDT Tel [phone], Service support , Hip/Pelvis X-Ray 07/24/18 19:21 IMPRESSION: Mild foreshortening of the lateral femoral neck possibly due to acute trauma. CT recommended for further evaluation. Electronically Signed: Moses Diamond MD at 20:12 EDT , Service support , Chest X-Ray 07/24/18 19:39 IMPRESSION: ASHD. No acute disease Electronically Signed: Moses Diamond MD at 20:10 EDT , Service support , Lower Extremity CT 07/24/18 20:25 IMPRESSION: No evidence for acute fracture of the hip or visualized portions of the pelvis Electronically Signed: Moses Diamond MD at 21:28 EDT , Service support , Wrist X-Ray 07/24/18 21:27 IMPRESSION: Mild degenerative change. No evidence for acute fracture or dislocation Electronically Signed: Moses Diamond MD at 21:49 EDT , Service support , Current Medications Acetaminophen (Tylenol) 650 mg PO Q6H PRN PRN PRN Reason: Non-cardiac pain (mod-severe) Hydrocodone Bitart/Acetaminophen ([place] 5mg-325mg) 1 tablet PO Q6H PRN PRN PRN Reason: PAIN Last Admin: 07/25/18 06:37 Dose: 1 tablet Al Hydroxide/Mg Hydroxide (Mylanta Ii) 15 - 30 ml PO Q4H PRN PRN PRN Reason: INDIGESTION Albuterol Sulfate (Ventolin Aerosols) 2.5 mg INHALATION Q2H PRN PRN PRN Reason: dyspnea, wheezing Albuterol/Ipratropium (Duoneb) 3 ml INHALATION Q4HWA.RT MARYANN Last Admin: 07/25/18 10:35 Dose: 3 ml Atorvastatin Calcium (Lipitor) 40 mg PO QHS [facility] Last Admin: 07/24/18 23:37 Dose: 40 mg Bupropion HCl (Wellbutrin Sr (150mg Tablets)) 150 mg PO BID [facility] Last Admin: 07/25/18 10:40 Dose: 150 mg Calcium Carbonate (Os-Luis Armando 500) 500 mg PO Q6H PRN PRN PRN Reason: HEARTBURN Dextrose (D50w Syringe) 0 gm IV X1 PRN; Protocol PRN Reason: Hypoglycemia Docusate Sodium (Colace) 100 mg PO QHS [facility] Last Admin: 07/24/18 23:36 Dose: 100 mg Duloxetine HCl (Cymbalta) 60 mg PO DAILY [facility] Last Admin: 07/25/18 10:40 Dose: 60 mg Ferrous Sulfate ([facility]ous Sulfate) [facility] Last Admin: 07/25/18 10:40 Dose: 325 mg Fluticasone Propionate (Flonase Nasal [place]) 2 spray NASAL DAILY [facility] Last Admin: 07/25/18 10:42 Dose: 2 spray Furosemide (Lasix) 20 mg PO DAILY [facility] Furosemide (Lasix) 40 mg PO DAILY [facility] Last Admin: 07/25/18 10:40 Dose: 40 mg Gabapentin (Neurontin) 100 mg PO TIDCM [facility] Last Admin: 07/25/18 10:40 Dose: 100 mg Glucagon () 1 mg IM .X1 PRN PRN Reason: Hypoglycemia Guaifenesin (Mucinex) 1,200 mg PO BID [facility] Last Admin: 07/25/18 10:39 Dose: 1,200 mg Hydralazine HCl (Apresoline Iv) 10 mg IV Q4H PRN PRN PRN Reason: SBP > 160 Sodium Chloride () 250 mls @ 15 mls/hr IV .[id number] PRN PRN Reason: SALINE FLUSH Insulin Human Lispro (Humalog Kwikpen (Bkc)) 0 unit SC ACHS [facility]; Protocol Last Admin: 07/25/18 06:36 Dose: 6 units Loperamide HCl (Imodium) 2 mg PO PRN PRN PRN Reason: Diarrhea Loratadine (Claritin) 10 mg PO QHS [facility] Last Admin: 07/24/18 23:37 Dose: 10 mg Lorazepam (Ativan) 0.5 mg PO DAILY [facility] Last Admin: 07/25/18 10:41 Dose: 0.5 mg Magnesium Oxide (Mag-Ox 400) 400 mg PO BIDCM [facility] Last Admin: 07/25/18 10:40 Dose: 400 mg Methylprednisolone (Solu-Medrol) 40 mg IV Q8 [facility] Last Admin: 07/25/18 04:59 Dose: 40 mg Metoprolol Tartrate (Lopressor (Beta Rubén)) 50 mg PO BID [facility] Last Admin: 07/25/18 10:40 Dose: 50 mg Morphine Sulfate () 1 - 2 mg IV Q4H PRN PRN PRN Reason: PAIN Last Admin: 07/25/18 10:48 Dose: 2 mg Nitroglycerin (Nitrostat) 0.4 mg SUBLINGUAL Q5M PRN PRN Reason: CARDIAC/CHEST PAIN Ondansetron HCl (Zofran) 4 mg IV Q8H PRN PRN PRN Reason: NAUSEA/VOMITING Pantoprazole Sodium (Protonix) 40 mg PO DAILY [facility] Last Admin: 07/25/18 10:40 Dose: 40 mg Polyethylene Glycol (Miralax) 17 gm PO DAILY [facility] Last Admin: 07/25/18 10:49 Dose: Not Given Potassium Chloride (K-Dur) 20 meq PO DAILY [facility] Last Admin: 07/25/18 10:39 Dose: 20 meq Primidone (Mysoline) 50 mg PO BID [facility] Last Admin: 07/25/18 10:40 Dose: 50 mg Rivaroxaban (Xarelto) 20 mg PO DAILY [facility] Last Admin: 07/25/18 10:48 Dose: 20 mg Sodium Chloride () 5 - 15 ml IV UD PRN PRN Reason: SALINE FLUSH Last Admin: 07/25/18 04:59 Dose: 10 ml Tolterodine Tartrate (Detrol La) 2 mg PO DAILY [facility] Last Admin: 07/25/18 10:40 Dose: 2 mg Medical Necessity - Tobacco Use Smoking Status: Current every day smoker Tobacco Use: Cigarettes Assessment/Plan All Active Problems (Last Reviewed 06/24/18 @ 17:00 by FRANKLIN Philippe) Fall (Acute) Syncope (Acute) Atrial fibrillation with RVR (Acute) COPD exacerbation (Acute) COPD with acute exacerbation (Acute) Bradycardia (Resolved) Digoxin toxicity (Acute) Cholecystitis (Acute) Acute encephalopathy (Acute) Acute kidney injury (Acute) HCAP (healthcare-associated pneumonia) (Acute) Acute and chronic respiratory failure with hypoxia (Resolved) Acute bronchitis due to human metapneumovirus (Resolved) Atrial fibrillation with RVR (Resolved) COPD with acute exacerbation (Resolved) Gram-negative pneumonia (Resolved) Syncope (Resolved) Cardiomyopathy (Ruled-out) 1. SYncope, likely vasovagal Patient had been coughing and had a sudden brief syncopal episode. CT head and CT cervical spine showed no acute findings. Initial EKG showed A. fib with RVR but this resolved with Cardizem bolus. Fall precautions. Will monitor. Imaging done of the right hip was negative for any fracture. 2. COPD exacerbation: says she had SOB with wheezing Chest x-ray showed no acute findings. On IV Solu-Medrol and breathing treatments. Titrate oxygen to maintain saturation above 90%. Will DC PRN albuterol as patient is on DuoNeb's. Respiratory panel pending 3. A. fib: Admitted for A. fib with RVR but this resolved with Cardizem bolus. Has remained rate controlled without heart rate was just at 106 this morning. On metoprolol. 4. Chronic respiratory failure due to COPD: Currently on oxygen and breathing treatments. 5. Cardiomyopathy: Echo from January 2018 showed EF of 65%. Diastolic function was indeterminate. On Xarelto, statin, metoprolol and Lasix. 6. Hypertension: On metoprolol and Lasix. 7. Hyperlipidemia: On statin. 8. Anxiety and depression: On bupropion and duloxetine. 9. Type 2 diabetes mellitus: On insulin sliding scale. Home meds on hold. 3 seizures. 10. ABDULLAHI: Noncompliant with CPAP. 11. CAD: On statin, beta-blockers. DVT prophylaxis: On Xarelto. Code Visit Inpatient E&M: 49804 [facility] Hosp L3
--- NOTE | 2018-07-25 10:59 | PN_ITS ---
Patient Problems: Active and Suspected Problems (Last Reviewed 06/24/18 @ 17:00 by FRANKLIN Philippe) Fall (Acute) Syncope (Acute) Atrial fibrillation with RVR (Acute) COPD exacerbation (Acute) Subjective: Patient seen and examined. She was admitted from her [facility] on 07/24/2018 with a complaint of a fall out of a wheelchair at her being home. Patient states she had been coughing and had a shortness of breath as well as wheezing and had a brief syncopal episode. She then fell out of her chair and hit her right hip. She was brought to the ED with complaint of right hip discomfort. Imaging done in the ED was negative for any fracture. She is been managed for acute COPD exacerbation as well as an episode of A. fib with RVR, mechanical fall and syncope. Patient seen and examined this morning. She says she feels better. She denies any fever or chills, any palpitations, any chest pain, any diarrhea vomiting. She did admit to some right hip pain. Labs and vitals reviewed. Vitals/I&O's: Vital Signs Temp Pulse Resp BP Pulse Ox 97.3 F L 106 H 18 113/72 95 07/25/18 10:12 07/25/18 10:40 07/25/18 10:12 07/25/18 10:12 07/25/18 10:12 Oxygen Flow Rate (L/min) 2 Oxygen Delivery Method Room Air Weight: 187 lb 6.287 oz Body Mass Index (BMI) 35.4 Finger Stick Blood Glucose 159 Intake and Output for Last 24 Hours 07/23/18 07/24/18 07/25/18 23:59 23:59 23:59 Intake Total 647 / 647 Balance 647 / 647 General: Alert, Oriented x3, Cooperative, No apparent distress HEENT: Atraumatic, PERRLA, EOMI, Normocephalic Oral: Dry Mucosa Neck: Supple, No JVD Lungs: - - Mildly decreased breath sounds bibasilarly. Episodic wheezing. Cardiovascular: Regular rate, Normal S1, Normal S2, No murmurs, - - irregular rhythm; in Afib, rate controlled Abdomen: Bowel Sounds Present, Soft, Non Tender, Non-Distended, No Hepato-spleno megaly Extremities: No clubbing, No cyanosis, No edema, Capillary Refill Less than 3 Seconds Skin: No rashes, No breakdown Musculoskeletal: No Tenderness to Palpation of Joints or Extremities Lymphatic: No Cervical, Supraclavicular, or Inguinal Adenopathy Neurological: Cranial nerves II-XII grossly intact, Neuro grossly intact, Motor Exam 5/5 strength throughout Psych/Mental Status: Normal Affect, Appropriate, Alert and oriented to time, place, person, mood and affect Laboratory Results 07/24/18 19:10: POC Glucose 110 07/24/18 19:10: WBC 9.7, RBC 4.14 L, Hgb 11.1 L, Hct 34.5 L, MCV 83.3, MCH 26.8 L, MCHC 32.2, RDW 17.0 H, RDW Differential 51.9 H, Plt Count 272, MPV 11.2, Immature Gran % (Auto) 0.200, Neut % (Auto) 52.3, Lymph % (Auto) 37.6, [place] % (Auto) 7.9, Eos % (Auto) 1.6, Baso % (Auto) 0.4, Absolute Neuts (auto) 5.1, Absolute Lymphs (auto) 3.63, Total Counted Not Reportable 07/24/18 19:10: PT 13.7, INR 1.1, APTT 28.6 07/24/18 19:10: Sodium 136, Potassium 4.0, Chloride 101, Carbon Dioxide 27.0, Anion Gap 8, BUN 17, Creatinine 0.70, Estim Creat Clear Calc 62.07, Est GFR (MDRD) Af Amer 109, Est GFR (MDRD) Non-Af 90, BUN/Creatinine Ratio 24.4 H, Glucose 112 H, Calcium 8.5, Total Bilirubin 0.20, AST 17, ALT 17, Alkaline Phosphatase 140 H, Troponin I < 0.015, Total Protein 6.7, Albumin 3.2, Globulin 3.5, Albumin/Globulin Ratio 0.9 07/24/18 19:10: Magnesium 1.9 07/24/18 20:03: Lactic Acid 1.1 07/24/18 20:10: Urine Color Yellow, Urine Clarity Clear, Urine pH 6.5, Ur Specific [place] 1.010, Urine Protein Negative, Urine Glucose (UA) Normal, Urine Ketones Negative, Urine Occult Blood Negative, Urine Nitrite Negative, Urine Bi lirubin Negative, Urine Urobilinogen Normal, Ur Leukocyte Esterase Negative, Urine RBC 0 SEEN, Urine WBC 0 SEEN, Ur Squamous Epith Cells 0 SEEN, Urine Bacteria 0 SEEN, Urine Mucus 0 SEEN 07/24/18 23:00: Troponin I < 0.015 07/24/18 23:11: POC Glucose 107 07/25/18 01:28: WBC 10.0, RBC 4.01 L, Hgb 10.8 L, Hct 33.6 L, MCV 83.8, MCH 26.9 L, MCHC 32.1, RDW 16.6 H, RDW Differential 51.0 H, Plt Count 181, MPV 10.4, Immature Gran % (Auto) 0.200, Neut % (Auto) 85.9 H, Lymph % (Auto) 9.9 L, [place] % (Auto) 3.0, Eos % (Auto) 0.8, Baso % (Auto) 0.2, Absolute Neuts (auto) 8.6 H, Absolute Lymphs (auto) 0.99, Total Counted Not Reportable 07/25/18 01:28: Sodium 136, Potassium 3.9, Chloride 104, Carbon Dioxide 24.0, Anion Gap 8, BUN 14, Creatinine 0.71, Estim Creat Clear Calc 61.20, Est GFR (MDRD) Af Amer 107, Est GFR (MDRD) Non-Af 89, BUN/Creatinine Ratio 19.8, Glucose 208 H, Calcium 8.5, Total Bilirubin 0.30, AST 12 L, ALT 14, Alkaline Phosphatase 127 H, Total Protein 6.2 L, Albumin 3.0 L, Globulin 3.2, Albumin/Globulin Ratio 0.9 07/25/18 01:28: Troponin I < 0.015 07/25/18 06:34: POC Glucose 219 H Diagnostic Data Brain CT 07/24/18 19:19 IMPRESSION: Chronic involutional changes without acute abnormality or interval change. Electronically Signed: Lazaro Freeman DO at 20:30 EDT Tel [phone], Service support , Cervical Spine CT 07/24/18 19:21 IMPRESSION: Mild degenerative changes cervical spine. There is no visualized fracture or subluxation. Electronically Signed: Lazaro Freeman DO at 20:34 EDT Tel [phone], Service support , Hip/Pelvis X-Ray 07/24/18 19:21 IMPRESSION: Mild foreshortening of the lateral femoral neck possibly due to acute trauma. CT recommended for further evaluation. Electronically Signed: Moses Diamond MD at 20:12 EDT , Service support , Chest X-Ray 07/24/18 19:39 IMPRESSION: ASHD. No acute disease Electronically Signed: Moses Diamond MD at 20:10 EDT , Service support , Lower Extremity CT 07/24/18 20:25 IMPRESSION: No evidence for acute fracture of the hip or visualized portions of the pelvis Electronically Signed: Moses Diamond MD at 21:28 EDT , Service support , Wrist X-Ray 07/24/18 21:27 IMPRESSION: Mild degenerative change. No evidence for acute fracture or dislocation Electronically Signed: Moses Diamond MD at 21:49 EDT , Service support , Current Medications Acetaminophen (Tylenol) 650 mg PO Q6H PRN PRN PRN Reason: Non-cardiac pain (mod-severe) Hydrocodone Bitart/Acetaminophen ([place] 5mg-325mg) 1 tablet PO Q6H PRN PRN PRN Reason: PAIN Last Admin: 07/25/18 06:37 Dose: 1 tablet Al Hydroxide/Mg Hydroxide (Mylanta Ii) 15 - 30 ml PO Q4H PRN PRN PRN Reason: INDIGESTION Albuterol Sulfate (Ventolin Aerosols) 2.5 mg INHALATION Q2H PRN PRN PRN Reason: dyspnea, wheezing Albuterol/Ipratropium (Duoneb) 3 ml INHALATION Q4HWA.RT MARYANN Last Admin: 07/25/18 10:35 Dose: 3 ml Atorvastatin Calcium (Lipitor) 40 mg PO QHS [facility] Last Admin: 07/24/18 23:37 Dose: 40 mg Bupropion HCl (Wellbutrin Sr (150mg Tablets)) 150 mg PO BID [facility] Last Admin: 07/25/18 10:40 Dose: 150 mg Calcium Carbonate (Os-Luis Armando 500) 500 mg PO Q6H PRN PRN PRN Reason: HEARTBURN Dextrose (D50w Syringe) 0 gm IV X1 PRN; Protocol PRN Reason: Hypoglycemia Docusate Sodium (Colace) 100 mg PO QHS [facility] Last Admin: 07/24/18 23:36 Dose: 100 mg Duloxetine HCl (Cymbalta) 60 mg PO DAILY [facility] Last Admin: 07/25/18 10:40 Dose: 60 mg Ferrous Sulfate ([facility]ous Sulfate) [facility] Last Admin: 07/25/18 10:40 Dose: 325 mg Fluticasone Propionate (Flonase Nasal [place]) 2 spray NASAL DAILY [facility] Last Admin: 07/25/18 10:42 Dose: 2 spray Furosemide (Lasix) 20 mg PO DAILY [facility] Furosemide (Lasix) 40 mg PO DAILY [facility] Last Admin: 07/25/18 10:40 Dose: 40 mg Gabapentin (Neurontin) 100 mg PO TIDCM [facility] Last Admin: 07/25/18 10:40 Dose: 100 mg Glucagon () 1 mg IM .X1 PRN PRN Reason: Hypoglycemia Guaifenesin (Mucinex) 1,200 mg PO BID [facility] Last Admin: 07/25/18 10:39 Dose: 1,200 mg Hydralazine HCl (Apresoline Iv) 10 mg IV Q4H PRN PRN PRN Reason: SBP > 160 Sodium Chloride () 250 mls @ 15 mls/hr IV .[id number] PRN PRN Reason: SALINE FLUSH Insulin Human Lispro (Humalog Kwikpen (Bkc)) 0 unit SC ACHS [facility]; Protocol Last Admin: 07/25/18 06:36 Dose: 6 units Loperamide HCl (Imodium) 2 mg PO PRN PRN PRN Reason: Diarrhea Loratadine (Claritin) 10 mg PO QHS [facility] Last Admin: 07/24/18 23:37 Dose: 10 mg Lorazepam (Ativan) 0.5 mg PO DAILY [facility] Last Admin: 07/25/18 10:41 Dose: 0.5 mg Magnesium Oxide (Mag-Ox 400) 400 mg PO BIDCM [facility] Last Admin: 07/25/18 10:40 Dose: 400 mg Methylprednisolone (Solu-Medrol) 40 mg IV Q8 [facility] Last Admin: 07/25/18 04:59 Dose: 40 mg Metoprolol Tartrate (Lopressor (Beta Rubén)) 50 mg PO BID [facility] Last Admin: 07/25/18 10:40 Dose: 50 mg Morphine Sulfate () 1 - 2 mg IV Q4H PRN PRN PRN Reason: PAIN Last Admin: 07/25/18 10:48 Dose: 2 mg Nitroglycerin (Nitrostat) 0.4 mg SUBLINGUAL Q5M PRN PRN Reason: CARDIAC/CHEST PAIN Ondansetron HCl (Zofran) 4 mg IV Q8H PRN PRN PRN Reason: NAUSEA/VOMITING Pantoprazole Sodium (Protonix) 40 mg PO DAILY [facility] Last Admin: 07/25/18 10:40 Dose: 40 mg Polyethylene Glycol (Miralax) 17 gm PO DAILY [facility] Last Admin: 07/25/18 10:49 Dose: Not Given Potassium Chloride (K-Dur) 20 meq PO DAILY [facility] Last Admin: 07/25/18 10:39 Dose: 20 meq Primidone (Mysoline) 50 mg PO BID [facility] Last Admin: 07/25/18 10:40 Dose: 50 mg Rivaroxaban (Xarelto) 20 mg PO DAILY [facility] Last Admin: 07/25/18 10:48 Dose: 20 mg Sodium Chloride () 5 - 15 ml IV UD PRN PRN Reason: SALINE FLUSH Last Admin: 07/25/18 04:59 Dose: 10 ml Tolterodine Tartrate (Detrol La) 2 mg PO DAILY [facility] Last Admin: 07/25/18 10:40 Dose: 2 mg Medical Necessity - Tobacco Use Smoking Status: Current every day smoker Tobacco Use: Cigarettes Assessment/Plan All Active Problems (Last Reviewed 06/24/18 @ 17:00 by FRANKLIN Philippe) Fall (Acute) Syncope (Acute) Atrial fibrillation with RVR (Acute) COPD exacerbation (Acute) COPD with acute exacerbation (Acute) Bradycardia (Resolved) Digoxin toxicity (Acute) Cholecystitis (Acute) Acute encephalopathy (Acute) Acute kidney injury (Acute) HCAP (healthcare-associated pneumonia) (Acute) Acute and chronic respiratory failure with hypoxia (Resolved) Acute bronchitis due to human metapneumovirus (Resolved) Atrial fibrillation with RVR (Resolved) COPD with acute exacerbation (Resolved) Gram-negative pneumonia (Resolved) Syncope (Resolved) Cardiomyopathy (Ruled-out) 1. SYncope, likely vasovagal * Patient had been coughing and had a sudden brief syncopal episode. * CT head and CT cervical spine showed no acute findings. * Initial EKG showed A. fib with RVR but this resolved with Cardizem bolus. * Fall precautions. Will monitor. Imaging done of the right hip was negative for any fracture. * 2. COPD exacerbation: * says she had SOB with wheezing * Chest x-ray showed no acute findings. * On IV Solu-Medrol and breathing treatments. * Titrate oxygen to maintain saturation above 90%. Will DC PRN albuterol as patient is on DuoNeb's. * Respiratory panel pending * 3. A. fib: * Admitted for A. fib with RVR but this resolved with Cardizem bolus. * Has remained rate controlled without heart rate was just at 106 this morning. * On metoprolol. * 4. Chronic respiratory failure due to COPD: Currently on oxygen and breathing treatments. 5. Cardiomyopathy: Echo from January 2018 showed EF of 65%. Diastolic function was indeterminate. On Xarelto, statin, metoprolol and Lasix. 6. Hypertension: On metoprolol and Lasix. 7. Hyperlipidemia: On statin. 8. Anxiety and depression: On bupropion and duloxetine. 9. Type 2 diabetes mellitus: On insulin sliding scale. Home meds on hold. 3 seizures. 10. ABDULLAHI: Noncompliant with CPAP. 11. CAD: On statin, beta-blockers. DVT prophylaxis: On Xarelto. Code Visit Inpatient E&M: 59897 [facility] Hosp L3
[2018-07-25 12:11] LABS: Bedside Glucose 265 mg/dL (70-110)
[2018-07-25 16:46] LABS: Bedside Glucose 153 mg/dL (70-110)
[2018-07-25] MEDS: Furosemide 20 MG Tablet PO (17:46)
[2018-07-25] MEDS: Loratadine 10 MG Tablet PO (22:10)
[2018-07-25] MEDS: Docusate Sodium 100 MG Capsule PO (22:10)
[2018-07-25] MEDS: Atorvastatin Calcium 40 MG Tablet PO (22:10)
[2018-07-25 22:50] LABS: Bedside Glucose 244 mg/dL (70-110)
[2018-07-26] VITALS (12 sets, daily range): BP systolic 111–135; BP diastolic 60–72; PULSE 77–112; RESP 15–18; TEMP 36.5–36.8; O2SAT 93–95
[2018-07-26] MEDS: 0.9% NaCl Peripheral Flush Adult/Peds IV ×2 (01:16→15:13)
--- NOTE | 2018-07-26 02:11 | PHA.PHARE_ITS ---
Consult Pharmacy has been consulted to manage selected antiobiotic: Vancomycin Type of Consult: New start Labs: Sodium 136 mmol/L (136-145) 07/25/18 01:28 Potassium 3.9 mmol/L (3.5-5.1) 07/25/18 01:28 Chloride 104 mmol/L (98-107) 07/25/18 01:28 Carbon Dioxide 24.0 mmol/L (21.0-32.0) 07/25/18 01:28 Anion Gap 8 (5-15) 07/25/18 01:28 BUN 14 mg/dL (7-18) 07/25/18 01:28 Creatinine 0.71 mg/dL (0.55-1.02) 07/25/18 01:28 Est GFR (MDRD) Af Amer 107 mL/min (>60) 07/25/18 01:28 Est GFR (MDRD) Non-Af 89 mL/min (>60) 07/25/18 01:28 BUN/Creatinine Ratio 19.8 RATIO (10-20) 07/25/18 01:28 Glucose 208 mg/dL (74-106) H 07/25/18 01:28 Microbiology: Microbiology 07/24/18 19:50 Blood Culture (Wb) - Venous Blood Culture - Preliminary 07/25/18 06:00 Mucosa - Nose Respiratory Panel (PCR) - Final Estimated Creatinine Clearance: 80.3 Goal Trough: 15-20 mcg/mL Pharmacy Plan for Drug Dosing: Pharmacy Service will continue to monitor and adjust dosing as required. Medications Vancomycin HCl 2,000 mg/ (Sodium Chloride) 540 mls @ 250 mls/hr IV X1 ONE Stop: 07/26/18 03:09 Last Admin: 07/26/18 01:16 Dose: 250 mls/hr Vancomycin HCl 1,500 mg/ (Sodium Chloride) 530 mls @ 250 mls/hr IV Q12H [facility] Follow-Up Labs: Trough Vancomycin Labs to be done on [date and time ordered]: 07/27 @ 1230
[2018-07-26 06:39] LABS: Absolute Lymphocyte Count 1.44 X10^3/ul (0.83-4.51); Absolute Neutrophil Count 8.8 X10^3/uL (2.0-7.7); Basophil# 0.01 X10^3/uL; Basophil% 0.1 % (0-1); Hematocrit 31.7 % (37-47); Hemoglobin 10.2 g/dl (12.0-15.0); Lymphocyte # 1.44 X10^3/ul (4.0); Lymphocyte % 13.4 % (19-41); Mean Corp Hgb Conc 32.2 g/gl (32-36); Mean Corpuscular Hgb 26.8 pg (27.0-32.0); Mean Corpuscular Volume 83.4 fL (81-99); Mean Platelet Vol. 10.4 fl (6.2-12.0); Monocyte# 0.42 X10^3/uL; Monocyte% 3.9 % (0-10); Neutrophil # 8.81 X10^3/uL (2.7-7.7); Neutrophil % 82.2 % (47-70); Platelet Count 188 K/mm3 (150-450); RBC Distribution Width CV 16.8 % (11.6-14.6); RBC Distribution Width SD 51.3 fl (35.1-43.9); White Blood Count 10.7 K/mm3 (4.4-11.0)
[2018-07-26 07:01] LABS: Anion Gap 10 (5-15); BUN 13 mg/dL (7-18); BUN/Creat Ratio 20.3 RATIO (10-20); Calcium,Total 8.9 mg/dL (8.5-10.1); Chloride 105 mmol/L (98-107); Creatinine, Serum 0.64 mg/dL (0.55-1.02); EST Glomerular Filtration Rate 100 mL/min (>60); Est Glom Filt Rate - Afr Amer 121 mL/min (>60); Estimated Creatinine Clearance 67.89 ml/min; Glucose 228 mg/dL (74-106); Potassium 4.4 mmol/L (3.5-5.1); Sodium Level 140 mmol/L (136-145)
[2018-07-26] MEDS: Ipratropium/Albuterol Sulfate 3 ML AMPUL.NEB INHALATION ×3 (07:12→15:23)
[2018-07-26 07:25] LABS: POSITIVE COUNT NO; POSITIVE DIFFERENTIAL NO; POSITIVE MORPHOLOGY NO
[2018-07-26] MEDS: Ferrous Sulfate 325 MG Tablet PO (08:54)
[2018-07-26] MEDS: guaiFENesin 1,200 MG Tablet 1200 MG PO (08:54)
[2018-07-26] MEDS: buPROPion (SR) 150 MG Tablet.SA PO (08:55)
[2018-07-26] MEDS: Pantoprazole Sodium 40 MG Tablet PO (08:55)
[2018-07-26] MEDS: Rivaroxaban 20 MG Tablet PO (08:55)
[2018-07-26] MEDS: Tolterodine Tartrate 2 MG CAP.SA PO (08:56)
[2018-07-26] MEDS: Metoprolol Tartrate 50 MG Tablet PO (08:56)
[2018-07-26] MEDS: Gabapentin 100 MG Capsule PO ×3 (08:56→16:04)
[2018-07-26] MEDS: Primidone 50 MG Tablet PO (08:56)
[2018-07-26] MEDS: Magnesium Oxide 400 MG Tablet PO ×2 (08:56→16:04)
[2018-07-26] MEDS: DULoxetine Hcl 60 MG Capsule PO (08:56)
[2018-07-26] MEDS: Furosemide 40 MG Tablet PO (08:56)
[2018-07-26] MEDS: Fluticasone 0.05% 1 SPRAY NASAL.SRY 2 SPRAY NASAL (08:57)
[2018-07-26] MEDS: Insulin Lispro 100 UNIT/ML INSULN.PEN SC ×2 (09:02→12:07)
[2018-07-26] MEDS: LORazepam 0.5 MG Tablet PO (09:12)
[2018-07-26] MEDS: HYDROcodone Bitartrate/Apap 5/325 Tablet PO (09:12)
[2018-07-26] MEDS: Polyethylene Glycol 3350 17 GM PACKET PO (09:16)
--- NOTE | 2018-07-26 10:46 | PCM.PN.HOSP ---
Patient Problems: Active and Suspected Problems (Last Reviewed 06/24/18 @ 17:00 by FRANKLIN Philippe) Fall (Acute) Syncope (Acute) Atrial fibrillation with RVR (Acute) COPD exacerbation (Acute) Subjective: Patient seen and examined. She had no complaints this morning. She denied any fever chills, palpitations or dizziness, chest pain, diarrhea vomiting. Review of systems otherwise negative. Labs and vitals reviewed. Preliminary bacterial detection per blood culture showing coagulase-negative staph. Blood cultures pending. She was started on vancomycin overnight. Vitals/I&O's: Vital Signs Temp Pulse Resp BP Pulse Ox 98.3 F 91 18 135/65 H 93 07/26/18 08:50 07/26/18 08:56 07/26/18 08:50 07/26/18 08:56 07/26/18 08:50 Oxygen Flow Rate (L/min) 2 Oxygen Delivery Method Room Air Weight: 187 lb 6.287 oz Body Mass Index (BMI) 35.4 Finger Stick Blood Glucose 159 Intake and Output for Last 24 Hours 07/24/18 07/25/18 07/26/18 23:59 23:59 23:59 Intake Total 887 / 887 750 / 750 Balance 887 / 887 750 / 750 General: Alert, Oriented x3, Cooperative, No apparent distress HEENT: Atraumatic, PERRLA, EOMI, Normocephalic Oral: Dry Mucosa Neck: Supple, No JVD Lungs: - - Mildly decreased breath sounds bibasilarly. Episodic wheezing. Cardiovascular: Regular rate, Normal S1, Normal S2, No murmurs, - - irregular rhythm; in Afib, rate controlled Abdomen: Bowel Sounds Present, Soft, Non Tender, Non-Distended, No Hepato-splenomegaly Extremities: No clubbing, No cyanosis, No edema, Capillary Refill Less than 3 Seconds Skin: No rashes, No breakdown Musculoskeletal: No Tenderness to Palpation of Joints or Extremities Lymphatic: No Cervical, Supraclavicular, or Inguinal Adenopathy Neurological: Cranial nerves II-XII grossly intact, Neuro grossly intact, Motor Exam 5/5 strength throughout Psych/Mental Status: Normal Affect, Appropriate, Alert and oriented to time, place, person, mood and affect Microbiology Past 72 Hours 07/24/18 19:50 Blood Culture (Wb) - Venous Bacteria Detection (PCR) - Preliminary Coag Negative Staph 07/24/18 19:50 Blood Culture (Wb) - Venous Blood Culture - Preliminary 07/25/18 06:00 Mucosa - Nose Respiratory Panel (PCR) - Final Laboratory Results 07/25/18 11:57: POC Glucose 265 H 07/25/18 16:27: POC Glucose 153 H 07/25/18 22:26: POC Glucose 244 H 07/26/18 06:30: WBC 10.7, RBC 3.80 L, Hgb 10.2 L, Hct 31.7 L, MCV 83.4, MCH 26.8 L, MCHC 32.2, RDW 16.8 H, RDW Differential 51.3 H, Plt Count 188, MPV 10.4, Immature Gran % (Auto) 0.400, Neut % (Auto) 82.2 H, Lymph % (Auto) 13.4 L, [place] % (Auto) 3.9, Eos % (Auto) 0.0, Baso % (Auto) 0.1, Absolute Neuts (auto) 8.8 H, Absolute Lymphs (auto) 1.44, Total Counted Not Reportable 07/26/18 06:30: Sodium 140, Potassium 4.4, Chloride 105, Carbon Dioxide 25.0, Anion Gap 10, BUN 13, Creatinine 0.64, Estim Creat Clear Calc 67.89, Est GFR (MDRD) Af Amer 121, Est GFR (MDRD) Non-Af 100, BUN/Creatinine Ratio 20.3 H, Glucose 228 H, Calcium 8.9 Current Medications Acetaminophen (Tylenol) 650 mg PO Q6H PRN PRN PRN Reason: Non-cardiac pain (mod-severe) Hydrocodone Bitart/Acetaminophen ([place] 5mg-325mg) 1 tablet PO Q6H PRN PRN PRN Reason: PAIN Last Admin: 07/26/18 09:12 Dose: 1 tablet Al Hydroxide/Mg Hydroxide (Mylanta Ii) 15 - 30 ml PO Q4H PRN PRN PRN Reason: INDIGESTION Albuterol/Ipratropium (Duoneb) 3 ml INHALATION Q4HWA.RT MARYANN Last Admin: 07/26/18 10:33 Dose: 3 ml Atorvastatin Calcium (Lipitor) 40 mg PO QHS MARYANN Last Admin: 07/25/18 22:10 Dose: 40 mg Bupropion HCl (Wellbutrin Sr (150mg Tablets)) 150 mg PO BID [facility] Last Admin: 07/26/18 08:55 Dose: 150 mg Calcium Carbonate (Os-Luis Armando 500) 500 mg PO Q6H PRN PRN PRN Reason: HEARTBURN Dextrose (D50w Syringe) 0 gm IV X1 PRN; Protocol PRN Reason: Hypoglycemia Docusate Sodium (Colace) 100 mg PO QHS [facility] Last Admin: 07/25/18 22:10 Dose: 100 mg Duloxetine HCl (Cymbalta) 60 mg PO DAILY [facility] Last Admin: 07/26/18 08:56 Dose: 60 mg Ferrous Sulfate (Ferrous Sulfate) 325 mg PO DAILYCM [facility] Last Admin: 07/26/18 08:54 Dose: 325 mg Fluticasone Propionate (Flonase Nasal [place]) 2 spray NASAL DAILY [facility] Last Admin: 07/26/18 08:57 Dose: 2 spray Furosemide (Lasix) 40 mg PO DAILY [facility] Last Admin: 07/26/18 08:56 Dose: 40 mg Furosemide (Lasix) 20 mg PO 1600 [facility] Last Admin: 07/25/18 17:46 Dose: 20 mg Gabapentin (Neurontin) 100 mg PO TIDCM [facility] Last Admin: 07/26/18 08:56 Dose: 100 mg Glucagon () 1 mg IM .X1 PRN PRN Reason: Hypoglycemia Guaifenesin (Mucinex) 1,200 mg PO BID [facility] Last Admin: 07/26/18 08:54 Dose: 1,200 mg Hydralazine HCl (Apresoline Iv) 10 mg IV Q4H PRN PRN PRN Reason: SBP > 160 Sodium Chloride () 250 mls @ 15 mls/hr IV .[id number] PRN PRN Reason: SALINE FLUSH Vancomycin IV Pharmacy to Dose (1 ea/ Sodium Chloride) 500 mls @ 250 mls/hr IV X1 PRN; Protocol PRN Reason: Rx to Dose Vancomycin HCl 1,500 mg/ (Sodium Chloride) 530 mls @ 250 mls/hr IV Q12H [facility] Insulin Human Lispro (Humalog Kwikpen (Bkc)) 0 unit SC ACHS [facility]; Protocol Last Admin: 07/26/18 09:02 Dose: 6 units Loperamide HCl (Imodium) 2 mg PO PRN PRN PRN Reason: Diarrhea Loratadine (Claritin) 10 mg PO QHS [facility] Last Admin: 07/25/18 22:10 Dose: 10 mg Lorazepam (Ativan) 0.5 mg PO DAILY [facility] Last Admin: 07/26/18 09:12 Dose: 0.5 mg [facility] 400[facility] Last Admin: 07/26/18 08:56 Dose: 400 mg Methylprednisolone (Solu-Medrol) 40 mg IV Q8 [facility] Last Admin: 07/26/18 05:41 Dose: 40 mg Metoprolol Tartrate (Lopressor (Beta Rubén)) 50 mg PO BID [facility] Last Admin: 07/26/18 08:56 Dose: 50 mg Morphine Sulfate () 1 - 2 mg IV Q4H PRN PRN PRN Reason: PAIN Last Admin: 07/25/18 20:10 Dose: 2 mg Nitroglycerin (Nitrostat) 0.4 mg SUBLINGUAL Q5M PRN PRN Reason: CARDIAC/CHEST PAIN Ondansetron HCl (Zofran) 4 mg IV Q8H PRN PRN PRN Reason: NAUSEA/VOMITING Pantoprazole Sodium (Protonix) 40 mg PO DAILY [facility] Last Admin: 07/26/18 08:55 Dose: 40 mg Polyethylene Glycol (Miralax) 17 gm PO DAILY [facility] Last Admin: 07/26/18 09:16 Dose: 17 gm Potassium Chloride (K-Dur) 20 meq PO DAILY [facility] Last Admin: 07/26/18 08:54 Dose: 20 meq Primidone (Mysoline) 50 mg PO BID [facility] Last Admin: 07/26/18 08:56 Dose: 50 mg Rivaroxaban (Xarelto) 20 mg PO DAILY [facility] Last Admin: 07/26/18 08:55 Dose: 20 mg Sodium Chloride () 5 - 15 ml IV UD PRN PRN Reason: SALINE FLUSH Last Admin: 07/26/18 01:16 Dose: 10 ml Tolterodine Tartrate (Detrol La) 2 mg PO DAILY [facility] Last Admin: 07/26/18 08:56 Dose: 2 mg Medical Necessity - Tobacco Use Smoking Status: Current every day smoker Tobacco Use: Cigarettes Assessment/Plan All Active Problems (Last Reviewed 06/24/18 @ 17:00 by FRANKLIN Philippe) Fall (Acute) Syncope (Acute) Atrial fibrillation with RVR (Acute) COPD exacerbation (Acute) COPD with acute exacerbation (Acute) Bradycardia (Resolved) Digoxin toxicity (Acute) Cholecystitis (Acute) Acute encephalopathy (Acute) Acute kidney injury (Acute) HCAP (healthcare-associated pneumonia) (Acute) Acute and chronic respiratory failure with hypoxia (Resolved) Acute bronchitis due to human metapneumovirus (Resolved) Atrial fibrillation with RVR (Resolved) COPD with acute exacerbation (Resolved) Gram-negative pneumonia (Resolved) Syncope (Resolved) Cardiomyopathy (Ruled-out) 1. SYncope, likely vasovagal Patient had been coughing and had a sudden brief syncopal episode. CT head and CT cervical spine showed no acute findings. Has been stable since. Fall precautions. 2. COPD exacerbation: As of breath has improved. Chest x-ray showed no acute findings. On IV Solu-Medrol and breathing treatments. Titrate oxygen to maintain saturation above 90%. Will DC PRN albuterol as patient is on DuoNeb's. Respiratory panel was negative. 3. Bacteremia: Blood cultures are pending but PCR detected coagulase-negative staph. Started on vancomycin. Will get ID consult as source of bacteremia is not very clear 4. A. fib: Admitted for A. fib with RVR but this resolved with Cardizem bolus. Has remained rate controlled On metoprolol. 5. Chronic respiratory failure due to COPD: Currently on oxygen and breathing treatments. 6. Cardiomyopathy: Echo from January 2018 showed EF of 65%. Diastolic function was indeterminate. On Xarelto, statin, metoprolol and Lasix. 7. Hypertension: On metoprolol and Lasix. 8. Hyperlipidemia: On statin. 9. Anxiety and depression: On bupropion and duloxetine. 10. Type 2 diabetes mellitus: On insulin sliding scale. Home meds on hold. Accuchecks ACHS 11. ABDULLAHI: Noncompliant with CPAP. 12. CAD: On statin, beta-blockers. DVT prophylaxis: On Xarelto. Code Visit Inpatient E&M: 64457 Subs Hosp L3
--- NOTE | 2018-07-26 10:51 | PN_ITS ---
Patient Problems: Active and Suspected Problems (Last Reviewed 06/24/18 @ 17:00 by FRANKLIN Philippe) Fall (Acute) Syncope (Acute) Atrial fibrillation with RVR (Acute) COPD exacerbation (Acute) Subjective: Patient seen and examined. She had no complaints this morning. She denied any fever chills, palpitations or dizziness, chest pain, diarrhea vomiting. Review of systems otherwise negative. Labs and vitals reviewed. Preliminary bacterial detection per blood culture showing coagulase-negative staph. Blood cultures pe nding. She was started on vancomycin overnight. Vitals/I&O's: Vital Signs Temp Pulse Resp BP Pulse Ox 98.3 F 91 18 135/65 H 93 07/26/18 08:50 07/26/18 08:56 07/26/18 08:50 07/26/18 08:56 07/26/18 08:50 Oxygen Flow Rate (L/min) 2 Oxygen Delivery Method Room Air Weight: 187 lb 6.287 oz Body Mass Index (BMI) 35.4 Finger Stick Blood Glucose 159 Intake and Output for Last 24 Hours 07/24/18 07/25/18 07/26/18 23:59 23:59 23:59 Intake Total 887 / 887 750 / 750 Balance 887 / 887 750 / 750 General: Alert, Oriented x3, Cooperative, No apparent distress HEENT: Atraumatic, PERRLA, EOMI, Normocephalic Oral: Dry Mucosa Neck: Supple, No JVD Lungs: - - Mildly decreased breath sounds bibasilarly. Episodic wheezing. Cardiovascular: Regular rate, Normal S1, Normal S2, No murmurs, - - irregular rhythm; in Afib, rate controlled Abdomen: Bowel Sounds Present, Soft, Non Tender, Non-Distended, No Hepato-splenomegaly Extremities: No clubbing, No cyanosis, No edema, Capillary Refill Less than 3 Seconds Skin: No rashes, No breakdown Musculoskeletal: No Tenderness to Palpation of Joints or Extremities Lymphatic: No Cervical, Supraclavicular, or Inguinal Adenopathy Neurological: Cranial nerves II-XII grossly intact, Neuro grossly intact, Motor Exam 5/5 strength throughout Psych/Mental Status: Normal Affect, Appropriate, Alert and oriented to time, place, person, mood and affect Microbiology Past 72 Hours 07/24/18 19:50 Blood Culture (Wb) - Venous Bacteria Detection (PCR) - Preliminary Coag Negative Staph 07/24/18 19:50 Blood Culture (Wb) - Venous Blood Culture - Preliminary 07/25/18 06:00 Mucosa - Nose Respiratory Panel (PCR) - Final Laboratory Results 07/25/18 11:57: POC Glucose 265 H 07/25/18 16:27: POC Glucose 153 H 07/25/18 22:26: POC Glucose 244 H 07/26/18 06:30: WBC 10.7, RBC 3.80 L, Hgb 10.2 L, Hct 31.7 L, MCV 83.4, MCH 26.8 L, MCHC 32.2, RDW 16.8 H, RDW Differential 51.3 H, Plt Count 188, MPV 10.4, Immature Gran % (Auto) 0.400, Neut % (Auto) 82.2 H, Lymph % (Auto) 13.4 L, [place] % (Auto) 3.9, Eos % (Auto) 0.0, Baso % (Auto) 0.1, Absolute Neuts (auto) 8.8 H, Absolute Lymphs (auto) 1.44, Total Counted Not Reportable 07/26/18 06:30: Sodium 140, Potassium 4.4, Chloride 105, Carbon Dioxide 25.0, Anion Gap 10, BUN 13, Creatinine 0.64, Estim Creat Clear Calc 67.89, Est GFR (MDRD) Af Amer 121, Est GFR (MDRD) Non-Af 100, BUN/Creatinine Ratio 20.3 H, Glucose 228 H, Calcium 8.9 Current Medications Acetaminophen (Tylenol) 650 mg PO Q6H PRN PRN PRN Reason: Non-cardiac pain (mod-severe) Hydrocodone Bitart/Acetaminophen ([place] 5mg-325mg) 1 tablet PO Q6H PRN PRN PRN Reason: PAIN Last Admin: 07/26/18 09:12 Dose: 1 tablet Al Hydroxide/Mg Hydroxide (Mylanta Ii) 15 - 30 ml PO Q4H PRN PRN PRN Reason: INDIGESTION Albuterol/Ipratropium (Duoneb) 3 ml INHALATION Q4HWA.RT MARYANN Last Admin: 07/26/18 10:33 Dose: 3 ml Atorvastatin Calcium (Lipitor) 40 mg PO QHS MARYANN Last Admin: 06/09/19 22:10 Dose: 40 mg Bupropion HCl (Wellbutrin Sr (150mg Tablets)) 150 mg PO BID [facility] Last Admin: 07/26/18 08:55 Dose: 150 mg Calcium Carbonate (Os-Luis Armando 500) 500 mg PO Q6H PRN PRN PRN Reason: HEARTBURN Dextrose (D50w Syringe) 0 gm IV X1 PRN; Protocol PRN Reason: Hypoglycemia Docusate Sodium (Colace) 100 mg PO QHS [facility] Last Admin: 07/25/18 22:10 Dose: 100 mg Duloxetine HCl (Cymbalta) 60 mg PO DAILY [facility] Last Admin: 07/26/18 08:56 Dose: 60 mg Ferrous Sulfate (Ferrous Sulfate) 325 mg PO DAILYCM [facility] Last Admin: 07/26/18 08:54 Dose: 325 mg Fluticasone Propionate (Flonase Nasal [place]) 2 spray NASAL DAILY [facility] Last Admin: 07/26/18 08:57 Dose: 2 spray Furosemide (Lasix) 40 mg PO DAILY [facility] Last Admin: 07/26/18 08:56 Dose: 40 mg Furosemide (Lasix) 20 mg PO 1600 [facility] Last Admin: 07/25/18 17:46 Dose: 20 mg Gabapentin (Neurontin) 100 mg PO TIDCM [facility] Last Admin: 07/26/18 08:56 Dose: 100 mg Glucagon () 1 mg IM .X1 PRN PRN Reason: Hypoglycemia Guaifenesin (Mucinex) 1,200 mg PO BID [facility] Last Admin: 07/26/18 08:54 Dose: 1,200 mg Hydralazine HCl (Apresoline Iv) 10 mg IV Q4H PRN PRN PRN Reason: SBP > 160 Sodium Chloride () 250 mls @ 15 mls/hr IV .[id number] PRN PRN Reason: SALINE FLUSH Vancomycin IV Pharmacy to Dose (1 ea/ Sodium Chloride) 500 mls @ 250 mls/hr IV X1 PRN; Protocol PRN Reason: Rx to Dose Vancomycin HCl 1,500 mg/ (Sodium Chloride) 530 mls @ 250 mls/hr IV Q12H [facility] Insulin Human Lispro (Humalog Kwikpen (Bkc)) 0 unit SC ACHS [facility]; Protocol Last Admin: 07/26/18 09:02 Dose: 6 units Loperamide HCl (Imodium) 2 mg PO PRN PRN PRN Reason: Diarrhea Loratadine (Claritin) 10 mg PO QHS [facility] Last Admin: 07/25/18 22:10 Dose: 10 mg Lorazepam (Ativan) 0.5 mg PO DAILY [facility] Last Admin: 07/26/18 09:12 Dose: 0.5 mg Magnesium Oxide (Mag-Ox 400) [facility] Last Admin: 07/26/18 08:56 Dose: 400 mg Methylprednisolone (Solu-Medrol) 40 mg IV Q8 [facility] Last Admin: 07/26/18 05:41 Dose: 40 mg Metoprolol Tartrate (Lopressor (Beta Rubén)) 50 mg PO BID [facility] Last Admin: 07/26/18 08:56 Dose: 50 mg Morphine Sulfate () 1 - 2 mg IV Q4H PRN PRN PRN Reason: PAIN Last Admin: 07/25/18 20:10 Dose: 2 mg Nitroglycerin (Nitrostat) 0.4 mg SUBLINGUAL Q5M PRN PRN Reason: CARDIAC/CHEST PAIN Ondansetron HCl (Zofran) 4 mg IV Q8H PRN PRN PRN Reason: NAUSEA/VOMITING Pantoprazole Sodium (Protonix) 40 mg PO DAILY [facility] Last Admin: 07/26/18 08:55 Dose: 40 mg Polyethylene Glycol (Miralax) 17 gm PO DAILY [facility] Last Admin: 07/26/18 09:16 Dose: 17 gm Potassium Chloride (K-Dur) 20 meq PO DAILY [facility] Last Admin: 07/26/18 08:54 Dose: 20 meq Primidone (Mysoline) 50 mg PO BID [facility] Last Admin: 07/26/18 08:56 Dose: 50 mg Rivaroxaban (Xarelto) 20 mg PO DAILY [facility] Last Admin: 07/26/18 08:55 Dose: 20 mg Sodium Chloride () 5 - 15 ml IV UD PRN PRN Reason: SALINE FLUSH Last Admin: 07/26/18 01:16 Dose: 10 ml Tolterodine Tartrate (Detrol La) 2 mg PO DAILY [facility] Last Admin: 07/26/18 08:56 Dose: 2 mg Medical Necessity - Tobacco Use Smoking Status: Current every day smoker Tobacco Use: Cigarettes Assessment/Plan All Active Problems (Last Reviewed 06/24/18 @ 17:00 by FRANKLIN Philippe) Fall (Acute) Syncope (Acute) Atrial fibrillation with RVR (Acute) COPD exacerbation (Acute) COPD with acute exacerbation (Acute) Bradycardia (Resolved) Digoxin toxicity (Acute) Cholecystitis (Acute) Acute encephalopathy (Acute) Acute kidney injury (Acute) HCAP (healthcare-associated pneumonia) (Acute) Acute and chronic respiratory failure with hypoxia (Resolved) Acute bronchitis due to human metapneumovirus (Resolved) Atrial fibrillation with RVR (Resolved) COPD with acute exacerbation (Resolved) Gram-negative pneumonia (Resolved) Syncope (Resolved) Cardiomyopathy (Ruled-out) 1. SYncope, likely vasovagal * Patient had been coughing and had a sudden brief syncopal episode. * CT head and CT cervical spine showed no acute findings. * Has been stable since. Fall precautions. * * 2. COPD exacerbation: * As of breath has improved. * Chest x-ray showed no acute findings. * On IV Solu-Medrol and breathing treatments. * Titrate oxygen to maintain saturation above 90%. Will DC PRN albuterol as patient is on DuoNeb's. * Respiratory panel was negative. * 3. Bacteremia: * Blood cultures are pending but PCR detected coagulase-negative staph. * Started on vancomycin. * Will get ID consult as source of bacteremia is not very clear * 4. A. fib: * Admitted for A. fib with RVR but this resolved with Cardizem bolus. * Has remained rate controlled * On metoprolol. * 5. Chronic respiratory failure due to COPD: Currently on oxygen and breathing treatments. 6. Cardiomyopathy: Echo from January 2018 showed EF of 65%. Diastolic function was indeterminate. On Xarelto, statin, metoprolol and Lasix. 7. Hypertension: On metoprolol and Lasix. 8. Hyperlipidemia: On statin. 9. Anxiety and depression: On bupropion and duloxetine. 10. Type 2 diabetes mellitus: On insulin sliding scale. Home meds on hold. Accuchecks ACHS 11. ABDULLAHI: Noncompliant with CPAP. 12. CAD: On statin, beta-blockers. DVT prophylaxis: On Xarelto. Code Visit Inpatient E&M: 83633 Subs Hosp L3
--- NOTE | 2018-07-26 11:32 | CASEMGMT ---
No LW/POA in chart or detention forms. SW called [facility], they do not have forms on the chart either, though as per Trudy pt's sister Desiree is POA. RON Sosa
--- NOTE | 2018-07-26 11:42 | CASEMGMT ---
Addendum entered by Guera Spencer 07/26/18 13:15: SW spoke w/pt, confirmed discharge plan is to return to [facility] at discharge. Pt states that her walker is too high and asked about getting a lower walker. SW asked if her walker at [facility] could be adjusted, pt states she is not sure. SW explained will ask over at [facility] about getting her a smaller walker or adjusting the walker she has. SW called [facility], asked about either adjusting pt's current walker or getting pt a smaller walker, they state can do this for pt. Plan: Return to [facility] at discharge. RON Sosa Original Note: SW reviewed chart, pt here from [facility]. SW spoke w/Trudy at [facility], pt is a [facility] resident, still has Medicaid bedhold days. SW faxed updates to [facility], will continue to follow. RON Sosa
[2018-07-26 12:06] LABS: Bedside Glucose 217 mg/dL (70-110)
[2018-07-26 12:15] LABS: Bedside Glucose 311 mg/dL (70-110)
--- NOTE | 2018-07-26 13:28 | CON.PCM_ITS ---
Problem List (1) Fall Status: Acute Qualifiers: Encounter type: initial encounter Qualified Code(s): W19.XXXA - Unspecified fall, initial encounter Reason for Consult: (+) bcx Consulted by: Dr. North History of Present Illness: The patient is a 63 year old F presented with fall out of wheelchair at [facility]. No fever, no new weakness, no new cellulitis. Admitted here, no fracture seen. Single Bcx with GPC, vanc started last night. Bcx now identified as CoNS. Feeling ok. Full ROS performed and neg except as noted above. - Medical History Past Medical History (Chronic Problems): Chronic Problems (Last Reviewed 06/24/18 @ 17:00 by Marylu Howell NP-C) Essential hypertension (Chronic) Abdominal pain (Chronic) ABDULLAHI (obstructive sleep apnea) (Chronic) Tobacco dependence due to cigarettes (Chronic) Non-compliance (Chronic) Hypersomnia (Chronic) Anemia (Chronic) Normocytic Morbid obesity with BMI of 40.0-44.9, adult (Chronic) COPD (chronic obstructive pulmonary disease) (Chronic) Chronic pain (Chronic) Chronic atrial fibrillation (Chronic) Chronic hypoxemic respiratory failure (Chronic) non-compliant with oxygen Hyperlipemia (Chronic) Type 2 diabetes mellitus (Chronic) uncontrolled GERD (gastroesophageal reflux disease) (Chronic) Anxiety (Chronic) Insomnia (Chronic) Allergies/Adverse Reactions: Allergies venom-honey bee [bee venom (honey bee)] Allergy (Verified 07/24/18 19:05) Swelling levofloxacin [From Levaquin] Adverse Reaction (Verified 07/24/18 19:05) Nausea oxycodone HCl [From Percocet] Adverse Reaction (Verified 07/24/18 19:05) Nausea Penicillins Adverse Reaction (Verified 07/24/18 19:05) Nausea/Vom/Diarrhea Home Medications: Ambulatory Orders Medication Instructions Recorded Budesonide/Formoterol 160/4.5 2 puff INHALATION BID 05/12/17 [Symbicort 160/4.5 Mcg Inhaler (SP)] Bupropion HCl [Bupropion HCl Sr] 150 mg PO BID 05/12/17 docusate sodium 100 mg capsule 100 mg PO QHS 09/01/17 Rivaroxaban [Xarelto] 20 mg PO DAILY #0 11/03/17 Duloxetine HCl 60 mg PO DAILY 12/23/17 Gabapentin [Neurontin] 100 mg PO TIDCM 12/23/17 Loperamide [Imodium] 2 mg PO PRN PRN 12/23/17 Albuterol Aerosols [Ventolin 2.5 mg INHALATION Q6HWA.RT PRN 02/01/18 Aerosols] Potassium Chloride [K-Dur] 20 meq PO DAILY #30 tab 02/04/18 Hydrocodone/Acetaminophen [[place] 1 tab PO Q6H PRN PRN 02/07/18 5-325 Tablet] Furosemide [Lasix] 40 mg PO DAILY 06/08/18 Magnesium Oxide [Mag-Ox 400] 400 mg PO BIDCM 06/08/18 Oxybutynin Chloride [Oxybutynin 5 mg PO DAILY 06/08/18 Chloride ER] Pantoprazole Sodium [Protonix] 40 mg PO DAILY 06/08/18 Primidone 50 mg PO BID 06/08/18 ferrous fumarate 325 mg (106 mg 325 mg PO DAILY tab 06/08/18 iron) tablet furosemide 20 mg tablet 20 mg PO DAILY tab 06/08/18 lorazepam 0.5 mg tablet 0.5 mg PO DAILY tab 06/08/18 lorazepam 0.5 mg tablet 0.5 mg PO Q6H PRN tab 06/08/18 rosuvastatin 20 mg tablet 20 mg PO QHS 06/08/18 Fluticasone 0.05% [Flonase Nasal 2 spray NASAL DAILY nasal.sry 06/12/18 [place]] Insulin Lispro [Humalog KwikPen] See Protocol SQ ACHS insuln.pen 06/12/18 Loratadine [Claritin] 10 mg PO QHS tab 06/12/18 Calcium Carbonate 500 mg PO Q6H PRN 07/24/18 Guaifenesin [Mucinex] 1,200 mg PO BID 07/24/18 Ipratropium/Albuterol Sulfate 3 ml INHALATION Q6H.RT 07/24/18 [Duoneb] Metoprolol Tartrate 50 mg PO BID 07/24/18 Polyethylene Glycol 3350 [Miralax] 17 gm PO DAILY 07/24/18 Sennosides/Docusate Sodium 2 tab PO PRN PRN 07/25/18 [Senokot-S Tablet] - Social History Tobacco Use: non-smoker Vital Signs Temp Pulse Resp BP Pulse Ox 98.3 F 98 16 135/65 H 93 07/26/18 08:50 07/26/18 10:33 07/26/18 10:33 07/26/18 08:56 07/26/18 08:50 Oxygen Flow Rate (L/min) 2 Oxygen Delivery Method Room Air Weight: 85 kg Body Mass Index (BMI) 35.4 Finger Stick Blood Glucose 159 Microbiology Past 72 Hours 07/24/18 19:50 Bacteria Detection (PCR) - Final Blood Culture (Wb) - Venous Coag Negative Staph Blood Culture - Preliminary 07/25/18 06:00 Respiratory Panel (PCR) - Final Mucosa - Nose Laboratory Tests Past 24 Hrs 07/26/18 07/26/18 06:30 06:30 WBC 10.7 RBC 3.80 L Hgb 10.2 L Hct 31.7 L MCV 83.4 MCH 26.8 L MCHC 32.2 RDW 16.8 H RDW Differential 51.3 H Plt Count 188 MPV 10.4 Immature Gran % (Auto) 0.400 Neut % (Auto) 82.2 H Lymph % (Auto) 13.4 L [place] % (Auto) 3.9 Eos % (Auto) 0.0 Baso % (Auto) 0.1 Absolute Neuts (auto) 8.8 H Absolute Lymphs (auto) 1.44 Total Counted Not Reportable Sodium 140 Potassium 4.4 Chloride 105 Carbon Dioxide 25.0 Anion Gap 10 BUN 13 Creatinine 0.64 Estim Creat Clear Calc 67.89 Est GFR (MDRD) Af Amer 121 Est GFR (MDRD) Non-Af 100 BUN/Creatinine Ratio 20.3 H Glucose 228 H Calcium 8.9 - Other Studies Radiology: [] reviewed Other Studies: [] Route of nutrition/ use of supplements: [] Nutritional Intake: [] IV Site: [] Gunter Catheter: [] - Physical Exam General: Alert, Cooperative, No apparent distress HEENT: Atraumatic, PERRLA, EOMI Neck: Supple, No Nodes Lungs: Clear to auscultation, Diminished Cardiovascular: No murmurs, Tachycardic Abdomen: Soft, Non Tender, Non-Distended Extremities: Edema Skin: Ulcer/ Wound - scattered bruises, small scrapes IV Site: Peripheral, without redness Musculoskeletal: No Tenderness to Palpation of Joints or Extremities Neurological: Cranial nerves II-XII grossly intact - Assessment/Plan Antibiotics: [] Assessment/Plan: [] Active and Suspected Problems (Last Reviewed 06/24/18 @ 17:00 by Marylu Howell, THANG-C) Fall (Acute) Syncope (Acute) Atrial fibrillation with RVR (Acute) COPD exacerbation (Acute) Single bcx with CoNS - consistent with contamination, paired bcx neg. No fever, no leukocytosis. Will stop vanc and monitor off abx. Will follow, thank you.
--- NOTE | 2018-07-26 15:12 | PCM.DC.SUM ---
Discharge Date and Diagnosis - Problem List Patient Problems: Active and Suspected Problems (Last Reviewed 06/24/18 @ 17:00 by FRANKLIN Philippe) Fall (Acute) Syncope (Acute) Atrial fibrillation with RVR (Acute) COPD exacerbation (Acute) Date of Admission: 07/24/18 Date of Discharge: 07/26/18 - Primary Discharge Diagnosis Active and Suspected Problems (Last Reviewed 06/24/18 @ 17:00 by FRANKLIN Philippe) Fall (Acute) Syncope (Acute) Atrial fibrillation with RVR (Acute) COPD exacerbation (Acute) - Secondary Discharge Diagnosis Chronic Problems (Last Reviewed 06/24/18 @ 17:00 by FRANKLIN Philippe) Essential hypertension (Chronic) Abdominal pain (Chronic) ABDULLAHI (obstructive sleep apnea) (Chronic) Tobacco dependence due to cigarettes (Chronic) Non-compliance (Chronic) Hypersomnia (Chronic) Anemia (Chronic) Normocytic Morbid obesity with BMI of 40.0-44.9, adult (Chronic) COPD (chronic obstructive pulmonary disease) (Chronic) Chronic pain (Chronic) Chronic atrial fibrillation (Chronic) Chronic hypoxemic respiratory failure (Chronic) non-compliant with oxygen Hyperlipemia (Chronic) Type 2 diabetes mellitus (Chronic) uncontrolled GERD (gastroesophageal reflux disease) (Chronic) Anxiety (Chronic) Insomnia (Chronic) Hospital Course and Treatment Imaging Results: Diagnostic Data Brain CT 07/24/18 19:19 IMPRESSION: Chronic involutional changes without acute abnormality or interval change. Electronically Signed: Lazaro Freeman DO at 20:30 EDT Tel [phone], Service support , Cervical Spine CT 07/24/18 19:21 IMPRESSION: Mild degenerative changes cervical spine. There is no visualized fracture or subluxation. Electronically Signed: Lazaro Freeman DO at 20:34 EDT Tel [phone], Service support , Hip/Pelvis X-Ray 07/24/18 19:21 IMPRESSION: Mild foreshortening of the lateral femoral neck possibly due to acute trauma. CT recommended for further evaluation. Electronically Signed: Moses Diamond MD at 20:12 EDT , Service support , Chest X-Ray 07/24/18 19:39 IMPRESSION: ASHD. No acute disease Electronically Signed: Moses Diamond MD at 20:10 EDT , Service support , Lower Extremity CT 07/24/18 20:25 IMPRESSION: No evidence for acute fracture of the hip or visualized portions of the pelvis Electronically Signed: Moses Diamond MD at 21:28 EDT , Service support , Wrist X-Ray 07/24/18 21:27 IMPRESSION: Mild degenerative change. No evidence for acute fracture or dislocation Electronically Signed: Moses Diamond MD at 21:49 EDT , Service support , Operations: None Procedures: None Summary of Care Provided: The patient is a 63 year old F with an extensive past medical history as listed. [facility] with a complaint of a fall after she fell out of her wheelchair. She had been coughing and had episodes of wheezing and shortness of breath and then had a brief syncopal episode. She fell and hit her right hip but came around immediately. She was brought to the ED on account of complaint of right hip discomfort. Imaging done in the ED was negative for any fracture. Heart rate was elevated when she came in with EKG showing A. fib with RVR but this resolved with administration of Cardizem bolus. She was admitted to be managed for mechanical fall, syncope and COPD exacerbation. She was started on breathing treatments and prednisone. Troponin was negative. Blood culture done showed coagulase-negative staph from PCR but this was thought to be due to a skin contaminant. Patient was not febrile and there is no evidence of infection. She was started on IV vancomycin. Infectious disease was consulted and they felt it was likely due to contamination. Vancomycin was therefore stopped. Patient remained stable and vitals remained stable. [facility] was [facility] a [facility] on 07[facility]26/2018. She is follow-up with her primary care doctor within 1 week. Patient seen and examined prior to discharge. She still does complain of mild right hip pain from the fall. Review of systems otherwise negative. Shortness of breath headache improved. Labs and vitals reviewed. Medications reviewed and reconciled. o/e: Vital Signs Height 5 ft 1 in Weight: 187 lb 6.287 oz Weight in Pounds 187.4 lbs Pulse Ox 94 Temperature 98.3 F Pulse Rate 112 Respiratory Rate 18 Blood Pressure [BP] 142/78 Blood Pressure 111/60 Blood Pressure Position [BP] Semi-Fowlers Blood Pressure Position Semi-Fowlers General: Alert, Oriented x3, Cooperative, No apparent distress HEENT: Atraumatic, PERRLA, EOMI, Normocephalic Oral: Dry Mucosa Neck: Supple, No JVD Lungs: - - Mildly decreased breath sounds bibasilarly. Episodic wheezing. Cardiovascular: Regular rate, Normal S1, Normal S2, No murmurs, - - irregular rhythm; in Afib, rate controlled Abdomen: Bowel Sounds Present, Soft, Non Tender, Non-Distended, No Hepato-splenomegaly Extremities: No clubbing, No cyanosis, No edema, Capillary Refill Less than 3 Seconds Skin: No rashes, No breakdown Musculoskeletal: No Tenderness to Palpation of Joints or Extremities Lymphatic: No Cervical, Supraclavicular, or Inguinal Adenopathy Neurological: Cranial nerves II-XII grossly intact, Neuro grossly intact, Motor Exam 5/5 strength throughout Psych/Mental Status: Normal Affect, Appropriate, Alert and oriented to time, place, person, mood and affect Plan is to discharge patient to her SNF today on p.o. prednisone 40 mg daily for 5 days. She is to continue with her breathing treatments in the [facility]. [] Patient Problems: Active and Suspected Problems (Last Reviewed 06/24/18 @ 17:00 by FRANKLIN Philippe) Fall (Acute) Syncope (Acute) Atrial fibrillation with RVR (Acute) COPD exacerbation (Acute) - Physical Exam Vital Signs Temp Pulse Resp BP Pulse Ox 98.3 F 112 H 18 111/60 94 07/26/18 15:10 07/26/18 15:10 07/26/18 15:10 07/26/18 15:10 07/26/18 15:10 Oxygen Flow Rate (L/min) 2 Oxygen Delivery Method Room Air Weight: 187 lb 6.287 oz Body Mass Index (BMI) 35.4 Finger Stick Blood Glucose 159 Intake and Output for Last 24 Hours 07/24/18 07/25/18 07/26/18 23:59 23:59 23:59 Intake Total 887 / 887 1270 / 1270 Balance 887 / 887 1270 / 1270 Microbiology Past 72 Hours 07/24/18 19:50 Bacteria Detection (PCR) - Final Blood Culture (Wb) - Venous Coag Negative Staph Blood Culture - Preliminary 07/25/18 06:00 Respiratory Panel (PCR) - Final Mucosa - Nose Laboratory Tests Past 24 Hrs 07/26/18 07/26/18 06:30 06:30 WBC 10.7 RBC 3.80 L Hgb 10.2 L Hct 31.7 L MCV 83.4 MCH 26.8 L MCHC 32.2 RDW 16.8 H RDW Differential 51.3 H Plt Count 188 MPV 10.4 Immature Gran % (Auto) 0.400 Neut % (Auto) 82.2 H Lymph % (Auto) 13.4 L [place] % (Auto) 3.9 Eos % (Auto) 0.0 Baso % (Auto) 0.1 Absolute Neuts (auto) 8.8 H Absolute Lymphs (auto) 1.44 Total Counted Not Reportable Sodium 140 Potassium 4.4 Chloride 105 Carbon Dioxide 25.0 Anion Gap 10 BUN 13 Creatinine 0.64 Estim Creat Clear Calc 67.89 Est GFR (MDRD) Af Amer 121 Est GFR (MDRD) Non-Af 100 BUN/Creatinine Ratio 20.3 H Glucose 228 H Calcium 8.9 POC Glucose 07/26/18 07/26/18 07/25/18 12:05 06:40 22:26 POC Glucose 311 H 217 H 244 H 07/25/18 16:27 POC Glucose 153 H Discharge Diet: Low fat/ Low Cholesterol Home Medications: Medications to take at Discharge Budesonide/Formoterol 160/4.5 [Symbicort 160/4.5 Mcg Inhaler (SP)] 2 puff INHALATION BID 05/12/17 Bupropion HCl [Bupropion HCl Sr] 150 mg PO BID 05/12/17 docusate sodium 100 mg capsule 100 mg PO QHS 09/01/17 Rivaroxaban [Xarelto] 20 mg PO DAILY #0 11/03/17 Duloxetine HCl 60 mg PO DAILY 12/23/17 Gabapentin [Neurontin] 100 mg PO TIDCM 12/23/17 Loperamide [Imodium] 2 mg PO PRN PRN 12/23/17 Albuterol Aerosols [Ventolin Aerosols] 2.5 mg INHALATION Q6HWA.RT PRN 02/01/18 Potassium Chloride [K-Dur] 20 meq PO DAILY #30 tab 02/04/18 Hydrocodone/Acetaminophen [[place] 5-325 Tablet] 1 tab PO Q6H PRN PRN 02/07/18 Furosemide [Lasix] 40 mg PO DAILY 06/08/18 Magnesium Oxide [Mag-Ox 400] 400 mg PO BIDCM 06/08/18 Oxybutynin Chloride [Oxybutynin Chloride ER] 5 mg PO DAILY 06/08/18 Pantoprazole Sodium [Protonix] 40 mg PO DAILY 06/08/18 Primidone 50 mg PO BID 06/08/18 ferrous fumarate 325 mg (106 mg iron) tablet 325 mg PO DAILY tab 06/08/18 furosemide 20 mg tablet 20 mg PO DAILY tab 06/08/18 lorazepam 0.5 mg tablet 0.5 mg PO DAILY tab 06/08/18 lorazepam 0.5 mg tablet 0.5 mg PO Q6H PRN tab 06/08/18 rosuvastatin 20 mg tablet 20 mg PO QHS 06/08/18 Fluticasone 0.05% [Flonase Nasal [place]] 2 spray NASAL DAILY nasal.sry 06/12/18 Insulin Lispro [Humalog KwikPen] See Protocol SQ ACHS insuln.pen 06/12/18 Loratadine [Claritin] 10 mg PO QHS tab 06/12/18 Calcium Carbonate 500 mg PO Q6H PRN 07/24/18 Guaifenesin [Mucinex] 1,200 mg PO BID 07/24/18 Ipratropium/Albuterol Sulfate [Duoneb] 3 ml INHALATION Q6H.RT 07/24/18 Metoprolol Tartrate 50 mg PO BID 07/24/18 Polyethylene Glycol 3350 [Miralax] 17 gm PO DAILY 07/24/18 Sennosides/Docusate Sodium [Senokot-S Tablet] 2 tab PO PRN PRN 07/25/18 predniSONE tablet 40 mg PO DAILY 5 Days #10 tab 07/26/18 Following Prescrptions Were Given to Patient: predniSONE tablet 40 mg PO DAILY 5 Days #10 tab Primary Care Physician: Camden Burger [Primary Care Provider] - Please follow up with your Primary Care Physician in: one week Disposition: Senior Care facility Minutes spent on discharge:: 40 Patient Condition:: Stable Medical Necessity - Tobacco Use Smoking Status: Current every day smoker Tobacco Use: Cigarettes Meaningful Use Info Meaningful Use Diagnoses (Choose all that apply): None applicable Code Visit Inpatient E&M: 66944 Disch Hosp
--- NOTE | 2018-07-26 15:18 | DS.PCM_ITS ---
Discharge Date and Diagnosis - Problem List Patient Problems: Active and Suspected Problems (Last Reviewed 06/24/18 @ 17:00 by FRANKLIN Philippe) Fall (Acute) Syncope (Acute) Atrial fibrillation with RVR (Acute) COPD exacerbation (Acute) Date of Admission: 07/24/18 Date of Discharge: 07/26/18 - Primary Discharge Diagnosis Active and Suspected Problems (Last Reviewed 06/24/18 @ 17:00 by FRANKLIN Philippe) Fall (Acute) Syncope (Acute) Atrial fibrillation with RVR (Acute) COPD exacerbation (Acute) - Secondary Discharge Diagnosis Chronic Problems (Last Reviewed 06/24/18 @ 17:00 by FRANKLIN Philippe) Essential hypertension (Chronic) Abdominal pain (Chronic) ABDULLAHI (obstructive sleep apnea) (Chronic) Tobacco dependence due to cigarettes (Chronic) Non-compliance (Chronic) Hypersomnia (Chronic) Anemia (Chronic) Normocytic Morbid obesity with BMI of 40.0-44.9, adult (Chronic) COPD (chronic obstructive pulmonary disease) (Chronic) Chronic pain (Chronic) Chronic atrial fibrillation (Chronic) Chronic hypoxemic respiratory failure (Chronic) non-compliant with oxygen Hyperlipemia (Chronic) Type 2 diabetes mellitus (Chronic) uncontrolled GERD (gastroesophageal reflux disease) (Chronic) Anxiety (Chronic) Insomnia (Chronic) Hospital Course and Treatment Imaging Results: Diagnostic Data Brain CT 07/24/18 19:19 IMPRESSION: Chronic involutional changes without acute abnormality or interval change. Electronically Signed: Lazaro Freeman DO at 20:30 EDT Tel [phone], Service support , Cervical Spine CT 07/24/18 19:21 IMPRESSION: Mild degenerative changes cervical spine. There is no visualized fracture or subluxation. Electronically Signed: Lazaro Freeman DO at 20:34 EDT Tel [phone], Service support , Hip/Pelvis X-Ray 07/24/18 19:21 IMPRESSION: Mild foreshortening of the lateral femoral neck possibly due to acute trauma. CT recommended for further evaluation. Electronically Signed: Moses Diamond MD at 20:12 EDT , Service support , Chest X-Ray 07/24/18 19:39 IMPRESSION: ASHD. No acute disease Electronically Signed: Moses Diamond MD at 20:10 EDT , Service support , Lower Extremity CT 07/24/18 20:25 IMPRESSION: No evidence for acute fracture of the hip or visualized portions of the pelvis Electronically Signed: Moses Diamond MD at 21:28 EDT , Service support , Wrist X-Ray 07/24/18 21:27 IMPRESSION: Mild degenerative change. No evidence for acute fracture or dislocation Electronically Signed: Moses Diamond MD at 21:49 EDT , Service support , Operations: None Procedures: None Summary of Care Provided: The patient is a 63 year old F with an extensive past medical history as listed. She was admitted from a halfway on 07/24/2018 with a complaint of a fall after she fell out of her wheelchair. She had been coughing and had episodes of wheezing and shortness of breath and then had a brief syncopal episode. She fell and hit her right hip but came around immediately. She was brought to the ED on account of complaint of right hip discomfort. Imaging done in the ED was negative for any fracture. Heart rate was elevated when she came in with EKG showing A. fib with RVR but this resolved with administration of Cardizem bolus. She was admitted to be managed for mechanical fall, syncope and COPD exacerbation. She was started on breathing treatments and prednisone. Troponin was negative. Blood culture done showed coagulase-negative staph from PCR but this was thought to be due to a skin contaminant. Patient was not febrile and there is no evidence of infection. She was started on IV vancomycin. Infectious disease was consulted and they felt it was likely due to contamination. Vancomycin was therefore stopped. Patient remained stable and vitals remained stable. She was discharged to a halfway on 07/26/2018. She is follow-up with her primary care doctor within 1 week. Patient seen and examined prior to discharge. She still does complain of mild right hip pain from the fall. Review of systems otherwise negative. Shortness of breath headache improved. Labs and vitals reviewed. Medications reviewed and reconciled. o/e: Vital Signs Height 5 ft 1 in Weight: 187 lb 6.287 oz Weight in Pounds 187.4 lbs Pulse Ox 94 Temperature 98.3 F Pulse Rate 112 Respiratory Rate 18 Blood Pressure [BP] 142/78 Blood Pressure 111/60 Blood Pressure Position [BP] Semi-Fowlers Blood Pressure Position Semi-Fowlers General: Alert, Oriented x3, Cooperative, No apparent distress HEENT: Atraumatic, PERRLA, EOMI, Normocephalic Oral: Dry Mucosa Neck: Supple, No JVD Lungs: - - Mildly decreased breath sounds bibasilarly. Episodic wheezing. Cardiovascular: Regular rate, Normal S1, Normal S2, No murmurs, - - irregular rhythm; in Afib, rate controlled Abdomen: Bowel Sounds Present, Soft, Non Tender, Non-Distended, No Hepato- splenomegaly Extremities: No clubbing, No cyanosis, No edema, Capillary Refill Less than 3 Seconds Skin: No rashes, No breakdown Musculoskeletal: No Tenderness to Palpation of Joints or Extremities Lymphatic: No Cervical, Supraclavicular, or Inguinal Adenopathy Neurological: Cranial nerves II-XII grossly intact, Neuro grossly intact, Motor Exam 5/5 strength throughout Psych/Mental Status: Normal Affect, Appropriate, Alert and oriented to time, place, person, mood and affect Plan is to discharge patient to her SNF today on p.o. prednisone 40 mg daily for 5 days. She is to continue with her breathing treatments in the halfway. [] Patient Problems: Active and Suspected Problems (Last Reviewed 06/24/18 @ 17:00 by FRANKLIN Philippe) Fall (Acute) Syncope (Acute) Atrial fibrillation with RVR (Acute) COPD exacerbation (Acute) - Physical Exam Vital Signs Temp Pulse Resp BP Pulse Ox 98.3 F 112 H 18 111/60 94 07/26/18 15:10 07/26/18 15:10 07/26/18 15:10 07/26/18 15:10 07/26/18 15:10 Oxygen Flow Rate (L/min) 2 Oxygen Delivery Method Room Air Weight: 187 lb 6.287 oz Body Mass Index (BMI) 35.4 Finger Stick Blood Glucose 159 Intake and Output for Last 24 Hours 07/24/18 07/25/18 07/26/18 23:59 23:59 23:59 Intake Total 887 / 887 1270 / 1270 Balance 887 / 887 1270 / 1270 Microbiology Past 72 Hours 07/24/18 19:50 Bacteria Detection (PCR) - Final Blood Culture (Wb) - Venous Coag Negative Staph Blood Culture - Preliminary 07/25/18 06:00 Respiratory Panel (PCR) - Final Mucosa - Nose Laboratory Tests Past 24 Hrs 07/26/18 07/26/18 06:30 06:30 WBC 10.7 RBC 3.80 L Hgb 10.2 L Hct 31.7 L MCV 83.4 MCH 26.8 L MCHC 32.2 RDW 16.8 H RDW Differential 51.3 H Plt Count 188 MPV 10.4 Immature Gran % (Auto) 0.400 Neut % (Auto) 82.2 H Lymph % (Auto) 13.4 L Bollinger % (Auto) 3.9 Eos % (Auto) 0.0 Baso % (Auto) 0.1 Absolute Neuts (auto) 8.8 H Absolute Lymphs (auto) 1.44 Total Counted Not Reportable Sodium 140 Potassium 4.4 Chloride 105 Carbon Dioxide 25.0 Anion Gap 10 BUN 13 Creatinine 0.64 Estim Creat Clear Calc 67.89 Est GFR (MDRD) Af Amer 121 Est GFR (MDRD) Non-Af 100 BUN/Creatinine Ratio 20.3 H Glucose 228 H Calcium 8.9 POC Glucose 07/26/18 07/26/18 07/25/18 12:05 06:40 22:26 POC Glucose 311 H 217 H 244 H 07/25/18 16:27 POC Glucose 153 H Discharge Diet: Low fat/ Low Cholesterol Home Medications: Medications to take at Discharge Budesonide/Formoterol 160/4.5 [Symbicort 160/4.5 Mcg Inhaler (SP)] 2 puff INHALATION BID 05/12/17 Bupropion HCl [Bupropion HCl Sr] 150 mg PO BID 05/12/17 docusate sodium 100 mg capsule 100 mg PO QHS 09/01/17 Rivaroxaban [Xarelto] 20 mg PO DAILY #0 11/03/17 Duloxetine HCl 60 mg PO DAILY 12/23/17 Gabapentin [Neurontin] 100 mg PO TIDCM 12/23/17 Loperamide [Imodium] 2 mg PO PRN PRN 12/23/17 Albuterol Aerosols [Ventolin Aerosols] 2.5 mg INHALATION Q6HWA.RT PRN 02/01/18 Potassium Chloride [K-Dur] 20 meq PO DAILY #30 tab 02/04/18 Hydrocodone/Acetaminophen [[place] 5-325 Tablet] 1 tab PO Q6H PRN PRN 02/07/18 Furosemide [Lasix] 40 mg PO DAILY 06/08/18 Magnesium Oxide [Mag-Ox 400] 400 mg PO BIDCM 06/08/18 Oxybutynin Chloride [Oxybutynin Chloride ER] 5 mg PO DAILY 06/08/18 Pantoprazole Sodium [Protonix] 40 mg PO DAILY 06/08/18 Primidone 50 mg PO BID 06/08/18 ferrous fumarate 325 mg (106 mg iron) tablet 325 mg PO DAILY tab 06/08/18 furosemide 20 mg tablet 20 mg PO DAILY tab 06/08/18 lorazepam 0.5 mg tablet 0.5 mg PO DAILY tab 06/08/18 lorazepam 0.5 mg tablet 0.5 mg PO Q6H PRN tab 06/08/18 rosuvastatin 20 mg tablet 20 mg PO QHS 06/08/18 Fluticasone 0.05% [Flonase Nasal Lloyd] 2 spray NASAL DAILY nasal.sry 06/12/18 Insulin Lispro [Humalog KwikPen] See Protocol SQ ACHS insuln.pen 06/12/18 Loratadine [Claritin] 10 mg PO QHS tab 06/12/18 Calcium Carbonate 500 mg PO Q6H PRN 07/24/18 Guaifenesin [Mucinex] 1,200 mg PO BID 07/24/18 Ipratropium/Albuterol Sulfate [Duoneb] 3 ml INHALATION Q6H.RT 07/24/18 Metoprolol Tartrate 50 mg PO BID 07/24/18 Polyethylene Glycol 3350 [Miralax] 17 gm PO DAILY 07/24/18 Sennosides/Docusate Sodium [Senokot-S Tablet] 2 tab PO PRN PRN 07/25/18 predniSONE tablet 40 mg PO DAILY 5 Days #10 tab 07/26/18 Following Prescrptions Were Given to Patient: predniSONE tablet 40 mg PO DAILY 5 Days #10 tab Primary Care Physician: Camden Burger [Primary Care Provider] - Please follow up with your Primary Care Physician in: one week Disposition: Group Home facility Minutes spent on discharge:: 40 Patient Condition:: Stable Medical Necessity - Tobacco Use Smoking Status: Current every day smoker Tobacco Use: Cigarettes Meaningful Use Info Meaningful Use Diagnoses (Choose all that apply): None applicable Code Visit Inpatient E&M: 95543 Disch Hosp
--- NOTE | 2018-07-26 15:20 | PCM.TXEXTCAR ---
- Diet 07/24/18 22:29 Diet: Cardiac/Low Cholesterol Food consistency:: Regular Liquid Consistency:: Regular/Thin - Routine Orders/Code Status Enema Type: Fleetz Enema Frequency: Daily PRN Suppository Type: Dulcolax 10mg Suppository Frequency: Daily PRN O2 Frequency: PRN Keep PO Greater than or Equal to (%): 90 - Therapies Physical Therapy: Eval and Treat Occupational Therapy: Eval and Treat - Allergies/Procedures Done in Hospital Allergies/Adverse Reactions: Allergies venom-honey bee [bee venom (honey bee)] Allergy (Verified 07/24/18 19:05) Swelling levofloxacin [From Levaquin] Adverse Reaction (Verified 07/24/18 19:05) Nausea oxycodone HCl [From Percocet] Adverse Reaction (Verified 07/24/18 19:05) Nausea Penicillins Adverse Reaction (Verified 07/24/18 19:05) Nausea/Vom/Diarrhea Procedures: None - Type of Care/Length of Stay Estimated LOS: More Than 30 Days Type of Care Needed: Skilled Rehab Potential: Fair Prognosis: Fair - Additional Orders/Day of Discharge Day of Discharge: 07/26/18 - Dietary and Speech Recommendations Dietitian Recommendations/Changes: Rec diet change to 1800 calorie controlled, cardiac. Will d/c Glucerna TID. - Follow Up Care Primary Care Physician: Camden Burger [Primary Care Provider] - Please follow up with your Primary Care Physician in: one week
[2018-07-26] MEDS: Furosemide 20 MG Tablet PO (16:04)
--- NOTE | 2018-07-26 16:07 | CASEMGMT ---
Pt is ready for discharge to [facility], LUIS faxed all discharge instructions to [facility], schedule II to [facility]. LUIS set up ambulance for 4:50pm. LUIS let pt, RN here, and Rusty at [facility] know time. With pt's permission, LUIS also called pt's sister Rusty and left her a message letting her know pt is returning to [facility] today. No further needs anticipated. RON Sosa
[2018-07-26 17:06] LABS: Bedside Glucose 111 mg/dL (70-110)
== END 2018-07-26 17:20 | disposition skilled nursing facility (03) | DRG 140 ==
LOC: ED 19:29 → PCU 21:53 → MS3 08-04 13:52
PROVIDERS: Admitting Provider Family Medicine; Emergency Provider Emergency Medicine; Family Provider Family Medicine; PCP Family Medicine; Referring Provider Family Medicine; Visit Provider Student in an Organized Health Care Education/Training Program
DX: J44.1 Chronic obstructive pulmonary disease with (acute) exacerbation (principal); I10 Essential (primary) hypertension; I25.10 Atherosclerotic heart disease of native coronary artery without angina pectoris; E78.5 Hyperlipidemia, unspecified; G47.33 Obstructive sleep apnea (adult) (pediatric); S09.90XA Unspecified injury of head, initial encounter; W05.0XXA Fall from non-moving wheelchair, initial encounter; Y92.129 Unspecified place in nursing home as the place of occurrence of the external cause; M25.551 Pain in right hip; R55 Syncope and collapse; Z79.4 Long term (current) use of insulin; I42.9 Cardiomyopathy, unspecified; F17.210 Nicotine dependence, cigarettes, uncomplicated; F32.9 Major depressive disorder, single episode, unspecified; F41.9 Anxiety disorder, unspecified; I48.91 Unspecified atrial fibrillation
CPT/HCPCS: 36415; 70450; 71046; 72125; 73110; 73502; 73700; 80048; 80053; 81001; 82962; 83605; 83735; 84484; 85025; 85610; 85730; 87040; 87149; 87633; 93005; 94640; 94667; 94668; 97162; 97166; 97530; 97802; 99285; J7030; J7040; A4216

== ENCOUNTER 2018-08-21 09:13 | Emergency (ER) | payer MEDICAID, SELFPAY ==
[2018-07-24 22:31] VITALS: BMI 35.4
[2018-08-21 09:14] VITALS: BP 123/61; PULSE 87; RESP 16; TEMP 36.9; O2SAT 99; BMI 39.9
--- NOTE | 2018-08-21 09:39 | CT_ITS ---
STUDY: CT BRAIN WITHOUT CONTRAST REASON FOR EXAM: Female, 63 years old. Fall, syncopal episode RADIATION DOSAGE (If Supplied By Facility): CTDIvol = ( 44.99 ) mGy, DLP = ( 779.24 ) mGycm TECHNIQUE: Transaxial CT imaging of the brain was performed without administration of intravenous contrast material. Individualized dose optimization techniques were used for this CT. COMPARISON: 07/24/2018 FINDINGS: Normal soft tissue structures. Normal calvarium. There is mild cerebral atrophy with widening of the extra-axial spaces and ventricular dilatation. There are areas of decreased attenuation within the white matter tracts of the supratentorial brain, consistent with microvascular disease changes. Normal basal ganglia and thalami. Normal brainstem. Normal cerebellum. There is no intracranial hemorrhage. There are no findings of an acute ischemic infarction. Normal visualized paranasal sinuses. CT/Brain/Head without Contrast IMPRESSION: No acute intracranial hemorrhage or mass effect. Central parenchymal volume loss. White matter changes that are nonspecific but most commonly associated with chronic small vessel ischemic disease. Electronically Signed: Cam Jaimes MD at 10:37 EDT , Service support ,
--- NOTE | 2018-08-21 09:40 | RAD_ITS ---
STUDY: X-RAY - RIGHT FOOT CLINICAL: Female, 63 years old. Fall, right foot pain TECHNIQUE: 2 view(s) of the foot. COMPARISON: None. FINDINGS: Normal talus, calcaneus, and tarsal bones. Normal visualized subtalar, talonavicular, calcaneocuboid, tarsal and tarsometatarsal articulations. Normal metatarsi. There is degenerative arthrosis of the metatarsophalangeal joint of the hallux with a hallux valgus deformity. Normal tibial and fibular sesamoid bones. Normal interphalangeal joint of the great toe. Normal phalanges of the great toe. Normal second through fifth metatarsophalangeal joints. Normal interphalangeal joints and phalanges of the lesser toes. There is no demonstrated soft tissue swelling. RAD/Foot 2 Views IMPRESSION: No fracture or malalignment. Electronically Signed: Cam Jaimes MD at 11:06 EDT , Service support ,
--- NOTE | 2018-08-21 09:40 | RAD_ITS ---
STUDY: X-RAY - PELVIS AND RIGHT HIP REASON FOR EXAM: Female, 63 years old. Fall, right-sided hip pain TECHNIQUE: 3 views of the pelvis and hip. Lateral views extremely limited. COMPARISON: 07/24/2018 FINDINGS: There is a non-specific bowel gas pattern. There are atherosclerotic vascular calcifications of the pelvic arteries. There degenerative changes of the lumbar spine. Normal bilateral iliac wings, sacroiliac joints and visualized sacrum. Normal bilateral superior and inferior pubic rami. Normal pubic symphysis. Normal bilateral ischial tuberosities. Normal visualized femoral head. Normal acetabulum. Normal hip joint. RAD/HIP, UNI W/ Pelvis 2-3 Views IMPRESSION: 1. No demonstrated fracture. 2. Limited by patient body habitus. Overall similar appearance in 07/24/2018. Electronically Signed: Cam Jaimes MD at 11:06 EDT , Service support ,
--- NOTE | 2018-08-21 09:40 | RAD_ITS ---
STUDY: X-RAY - RIGHT KNEE REASON FOR EXAM: Female, 63 years old. Fall, right-sided knee pain TECHNIQUE: 2 view(s) of the knee. COMPARISON: None. FINDINGS: Normal visualized distal femur. Normal visualized proximal tibia and fibula. Normal proximal tibiofibular articulation. There is moderate degenerative arthrosis of the medial femorotibial compartment with moderate joint space narrowing. There is mild degenerative arthrosis of the lateral femorotibial compartment. There is moderate degenerative arthrosis of the patellofemoral articulation. There is a small volume joint effusion. There are osseous densities projecting in the superior posterior joint space. There are atherosclerotic calcifications. RAD/Knee 1 or 2 Views IMPRESSION: 1. No fracture or malalignment. 2. Tricompartmental osteoarthrosis, grossly similar. Small joint effusion 3. Intra-articular loose bodies/osteochondromatosis. Electronically Signed: Cam Jaimes MD at 11:04 EDT , Service support ,
[2018-08-21] MEDS: 0.9% Normal Saline 1,000 ML 150 ML IV (10:10)
[2018-08-21 10:13] LABS: Absolute Lymphocyte Count 2.83 X10^3/ul (0.83-4.51); Absolute Neutrophil Count 4.5 X10^3/uL (2.0-7.7); Basophil# 0.03 X10^3/uL; Basophil% 0.4 % (0-1); Eosinophil# 0.44 X10^3/uL; Eosinophils% 5.1 % (0-5); Hematocrit 36.3 % (37-47); Hemoglobin 11.3 g/dl (12.0-15.0); Lymphocyte # 2.83 X10^3/ul (4.0); Lymphocyte % 33.1 % (19-41); Mean Corp Hgb Conc 31.1 g/gl (32-36); Mean Corpuscular Volume 86.8 fL (81-99); Mean Platelet Vol. 10.3 fl (6.2-12.0); Monocyte# 0.72 X10^3/uL; Monocyte% 8.4 % (0-10); Neutrophil # 4.52 X10^3/uL (2.7-7.7); Neutrophil % 52.8 % (47-70); POSITIVE COUNT NO; POSITIVE DIFFERENTIAL NO; POSITIVE MORPHOLOGY NO; Platelet Count 250 K/mm3 (150-450); RBC Distribution Width CV 16.1 % (11.6-14.6); Red Blood Count 4.18 M/mm3 (4.2-5.4); White Blood Count 8.6 K/mm3 (4.4-11.0)
[2018-08-21 10:21] LABS: Anion Gap 2 (5-15); BUN 18 mg/dL (7-18); BUN/Creat Ratio 23.9 RATIO (10-20); Calcium,Total 8.4 mg/dL (8.5-10.1); Chloride 104 mmol/L (98-107); Creatinine, Serum 0.75 mg/dL (0.55-1.02); EST Glomerular Filtration Rate 83 mL/min (>60); Est Glom Filt Rate - Afr Amer 100 mL/min (>60); Estimated Creatinine Clearance 57.94 ml/min; Glucose 170 mg/dL (74-106); Potassium 3.7 mmol/L (3.5-5.1); Sodium Level 139 mmol/L (136-145)
[2018-08-21 11:45] VITALS: BP 143/88; PULSE 83; RESP 16
--- NOTE | 2018-08-21 11:47 | ED.VISSUMM ---
- ER Visit Summary Date of Service: 08/21/18 Chief Complaint: [Fall] History of Present Illness: The patient is a 63 F [the emergency department with a fall that occurred this morning prior to arrival in the emergency department. Patient states that she had gone to the restroom with her wheelchair and as she stood up off the toilet before pansexual lost her balance and fell injuring her right hip as well as her right knee and right foot. Patient is currently at a intermediate. She is unsure if she hit her head. She denies headache. She denies neck pain. She denies chest pain. She denies abdominal pain. Patient has history of coronary artery disease, diabetes, hypertension, and high cholesterol.] Physical Examination: [HEENT-PERRLA, EOMI. Cranial nerves II through XII grossly intact. TMs clear. Mucous membranes moist. No adenopathy. No external evidence of trauma to her head. Cardiovascular-regular rate and rhythm without murmur or ectopy Lungs-clear to auscultation, chest wall stable without crepitus or subcu emphysema Abdomen-normoactive bowel sounds, soft, nontender, no rebound or rigidity, no peritoneal signs. Extremities-intact ?4, normal range of motion, normal pulses. Right lower extremity-patient has tenderness over the right hip however there is no shortening or external rotation noted. Patient has tenderness over the right knee with pain with flexion extension of the knee. There is no ecchymosis or bruising noted. Patient also with tenderness over the right foot again without any evidence of deformity. There is no ecchymosis or bruising. Patient neurovascular intact.] Test Results: [CT scan of the brain without contrast was unremarkable. X-rays of the right hip, right knee, and right foot were obtained. No fractures were noted. CBC with differential of 8.6, hemoglobin 11, hematocrit 36, platelets 250. Chemistries unremarkable. Glucose was 170.] Emergency Department Course and Treatment: [Patient initially just had normal saline established with IV.] Treatment Plan: [Patient will be discharged back to intermediate] Disposition: [Discharge stable condition] Impression: [Mechanical fall Contusion right hip/right knee/right foot] This note was generated with Cor[employer]isation software. It may contain incorrect words, spelling, and punctuation that were not noted in review of the chart prior to signing ED Disposition - Plan for ED Patient: Referrals: Camden Burger [Primary Care Provider] -
--- NOTE | 2018-08-21 11:51 | ED.DEP ---
ED Disposition - Plan for ED Patient: Instructions: CONTUSION, Foot, Hip Contusion, FALL, Mechanical Referrals: Camden Burger [Primary Care Provider] - 5-7 Days
== END 2018-08-21 12:17 | disposition home or self-care (01) ==
LOC: ED 09:51
PROVIDERS: Emergency Provider Emergency Medicine; Family Provider Family Medicine; PCP Family Medicine
DX: S70.01XA Contusion of right hip, initial encounter (principal); S80.01XA Contusion of right knee, initial encounter; S90.31XA Contusion of right foot, initial encounter; W17.89XA Other fall from one level to another, initial encounter; Y93.89 Activity, other specified; Y92.121 Bathroom in nursing home as the place of occurrence of the external cause; I25.10 Atherosclerotic heart disease of native coronary artery without angina pectoris; I10 Essential (primary) hypertension; E11.9 Type 2 diabetes mellitus without complications; E78.00 Pure hypercholesterolemia, unspecified; Z79.4 Long term (current) use of insulin; Z79.899 Other long term (current) drug therapy; Z72.0 Tobacco use
CPT/HCPCS: 70450; 73502; 73560; 73620; 80048; 85025; 96360; 96361; 99285; J7030

== ENCOUNTER → 2018-09-10 10:43 | Outpatient (CLI) | payer MEDICAID, SELFPAY ==
[2018-06-08 14:05] VITALS: BMI 39.1
[2018-08-21 09:14] VITALS: BMI 39.9
[2018-09-10 11:16] VITALS: PULSE 100; PULSE 101; PULSE 104; PULSE 3; PULSE 87; PULSE 88; PULSE 90; PULSE 98; O2SAT 93; O2SAT 94; O2SAT 96; O2SAT 961; O2SAT 97; O2SAT 98
--- NOTE | 2018-09-10 11:22 | CPS ---
PATIENT WITH UNSTEADY GATE. SHE PUSHED W/C FOR TESTING SINCE NO WALKER AVAILABLE. SHE RESTED 3 TIMES DURING TEST D/T SOB AND WEAKNESS IN HER RIGHT KNEE. SHE WAS ASSISTED BY HOOP RIVETER WELL MYSELF THROUGHOUT THE TEST.
--- NOTE | 2018-09-10 13:12 | PCM.PSN.6M ---
PSN 6 Minute Walk Test - 6 Minute Walk Test 6 Minute Walk Test: 6 Minute Walk Test PSN:6-Minute Walk Test Start: 09/10/18 11:16 Freq: Status: Active Protocol: RESP.6MINW Document 09/10/18 11:16 [facility] (Rec: 09/10/18 11:26 [facility] [id number]) 6 Minute Walk Test Date Performed 09/10/18 Time Performed 11:00 Height 5 ft 1 in Weight: 80.739 kg Weight in Pounds 178.[address]: Marylu Howell Assistive device used: Walker Pre-test Oxygen Delivery Method Room Air Pulse Ox (%) 98 Pulse Rate (60-100 beats/min) 87 Dyspnea Rosa Elena Scale (0-10) 0 1st minute Oxygen Delivery Method Room Air Pulse Ox (%) 96 Pulse Rate (60-100 beats/min) 90 Dyspnea Rosa Elena Scale (0-10) 2 2nd minute Oxygen Delivery Method Room Air Pulse Ox (%) 93 Pulse Rate (60-100 beats/min) 98 Dyspnea Rosa Elena Scale (0-10) 3 Number of Rests Taken 1 Reported Symptoms Increased Work of Breathing 3rd minute Oxygen Delivery Method Room Air Pulse Ox (%) 94 Pulse Rate (60-100 beats/min) 101 H Dyspnea Rosa Elena Scale (0-10) 3 Number of Rests Taken 1 Reported Symptoms Increased Work of Breathing 4th minute Oxygen Delivery Method Room Air Pulse Ox (%) 97 Pulse Rate (60-100 beats/min) 100 Dyspnea Rosa Elena Scale (0-10) 3 Reported Symptoms Increased Work of Breathing 5th minute Oxygen Delivery Method Room Air Pulse Ox (%) 98 Pulse Rate (60-100 beats/min) 104 H Dyspnea Rosa Elena Scale (0-10) 3 Number of Rests Taken 1 Reported Symptoms Increased Work of Breathing 6th minute Oxygen Delivery Method Room Air Pulse Ox (%) 961 Pulse Rate (60-100 beats/min) 3 L Reported Symptoms Increased Work of Breathing Post-test Oxygen Delivery Method Room Air Pulse Ox (%) 98 Pulse Rate (60-100 beats/min) 88 Dyspnea Rosa Elena Scale (0-10) 0 Full Laps Walked 2 Partial Lap, Number of Tiles Walked 10 Total Distance Walked (ft) 128 09/10/18 11:22 Cardiopulmonary Services by Tiffany Grubbs PATIENT WITH UNSTEADY GATE. SHE PUSHED W/C FOR TESTING SINCE NO WALKER AVAILABLE. SHE RESTED 3 TIMES DURING TEST D/T SOB AND WEAKNESS IN HER RIGHT KNEE. SHE WAS ASSISTED BY SALES AND MARKETING ANALYST WELL MYSELF THROUGHOUT THE TEST. Initialized on 09/10/18 11:22 - END OF NOTE - Interpretation Interpretation: The patient was able to ambulate a total of 128 feet over the course of 6 minutes on room air with the assistance of a pushed wheelchair and 3 breaks. The patient did experience significant desaturation from a baseline of 98% to as low as 93%. Therapist reported increased shortness of breath and right knee issues limiting distance. These findings are consistent with a musculoskeletal limitation exercise tolerance. - Recommendations Recommendations: No supplemental oxygen is indicated at this time. Sensitivity for desaturation is limited given short distance traveled.
== END ==
PROVIDERS: Family Provider Family Medicine; PCP Family Medicine; Referring Provider Nurse Practitioner Acute Care; Visit Provider Nurse Practitioner Acute Care
DX: J44.9 Chronic obstructive pulmonary disease, unspecified (principal)
CPT/HCPCS: 94618

== ENCOUNTER 2018-10-25 12:54 | Emergency (ER) | payer MEDICAID, SELFPAY ==
[2018-09-16 13:42] VITALS: BMI 40.0
[2018-10-25 12:55] VITALS: BP 124/46; PULSE 67; RESP 16; TEMP 37.1; O2SAT 95; BMI 40.0
--- NOTE | 2018-10-25 13:10 | ED.RN ---
PT TRIAGED AFTER ARRIVING AND NO RESP DISTRESS OBS. PT ON RA AND SATS 95-97%. PT ONLY ANSWERING SHORT ONE WORD ANSWERS TO QUESTIONS ASKED. REPORTS THAT CANT TALK BECAUSE SOB AND USING HANDS TO PUT UP NUMBER FOR PAIN SCALE. CALL LIGHT WITHIN REACH.
--- NOTE | 2018-10-25 13:24 | EKG12_ITS ---
Test Reason : SOB Blood Pressure : / mmHG Vent. Rate : 083 BPM Atrial Rate : 093 BPM P-R Int : 000 ms QRS Dur : 088 ms QT Int : 366 ms P-R-T Axes : 000 063 -16 degrees QTc Int : 430 ms Atrial fibrillation Nonspecific ST abnormality Abnormal QRS-T angle, consider primary T wave abnormality Abnormal ECG Confirmed by ELSY DELGADO, LUCILA ([id number]), manuscript editor SUZANNE WRIGHT ([id number]) on 10/26/2018 9:25:14 AM Referred By: ENRIQUE Confirmed By:LUCILA CHIN MD
[2018-10-25] MEDS: Ipratropium/Albuterol Sulfate 3 ML AMPUL.NEB INHALATION (13:51)
[2018-10-25] MEDS: Albuterol 2.5 MG/3 ML VIAL.NEB. INHALATION (13:51)
[2018-10-25 13:52] VITALS: PULSE 81; RESP 16
[2018-10-25 13:52] LABS: Absolute Lymphocyte Count 2.41 X10^3/uL (0.83-4.51); Absolute Neutrophil Count 5.4 X10^3/uL (2.0-7.7); Basophil# 0.05 X10^3/uL; Basophil% 0.6 % (0-1); Eosinophil# 0.18 X10^3/uL; Eosinophils% 2.1 % (0-5); Hemoglobin 13.9 g/dL (12.0-15.0); Lymphocyte # 2.41 X10^3/ul (4.0); Mean Corp Hgb Conc 31.6 g/dL (32-36); Mean Corpuscular Hgb 28.6 pg (27.0-32.0); Mean Corpuscular Volume 90.5 fL (81-99); Mean Platelet Vol. 10.3 fl (6.2-12.0); Monocyte# 0.54 X10^3/uL; Monocyte% 6.3 % (0-10); NRBC Flagged by Analyzer 0 % (0-5); Neutrophil % 62.5 % (47-70); Platelet Count 244 K/mm3 (150-450); RBC Distribution Width CV 14.5 % (11.6-14.6); RBC Distribution Width SD 47.9 fl (35.1-43.9); Red Blood Count 4.86 M/mm3 (4.2-5.4); White Blood Count 8.6 K/mm3 (4.4-11.0)
[2018-10-25 14:09] LABS: Anion Gap 2 (5-15); BUN 24 mg/dL (7-18); BUN/Creat Ratio 24.7 RATIO (10-20); Calcium,Total 8.8 mg/dL (8.5-10.1); Chloride 101 mmol/L (98-107); Creatinine, Serum 0.97 mg/dL (0.55-1.02); EST Glomerular Filtration Rate 61 mL/min (>60); Est Glom Filt Rate - Afr Amer 74 mL/min (>60); Estimated Creatinine Clearance 42.64 ml/min; Glucose 176 mg/dL (74-106); Potassium 4.1 mmol/L (3.5-5.1); Sodium Level 138 mmol/L (136-145)
--- NOTE | 2018-10-25 14:10 | RAD_ITS ---
STUDY: X-RAY CHEST REASON FOR EXAM: Female, 63 years old. Cough. TECHNIQUE: AP and lateral views of the chest. COMPARISON: Comparison is made with prior study dated July 24, 2018. FINDINGS: EKG electrodes are seen. The lungs are clear and expanded. There is no demonstrated pleural abnormality. Normal size heart. Normal mediastinum and sangeeta. Normal visualized pulmonary arteries. There is atherosclerotic tortuosity of the aortic arch and descending thoracic aorta. There is demineralization of the osseous structures. There is degenerative osteoarthritis of the bilateral shoulders. There is no demonstrated abnormality of the visualized soft tissue structures of the upper abdomen. RAD/Chest PA and Lateral IMPRESSION: No acute abnormality is present. Electronically Signed: Jose Lemos, at 15:07 EDT , Service support ,
[2018-10-25 14:25] LABS: BNP,B-Type NATRIURETIC PEPTIDE 55.8 pg/mL (0-100)
--- NOTE | 2018-10-25 14:44 | ED.VIS.GEN ---
History of Present Illness Chief Complaint: Shortness of Breath Informant: Patient Onset: Days - Onset 2 days ago Context: Sudden Onset Timing: Continuous Quality: Loss of voice, nonproductive cough, shortness of breath and wheezing Location: Pulmonary Current Severity: Moderate Maximum Severity: Moderate Worsened by: Loss of voice more patient speaks Relieved by: Nothing regarding other symptoms Associated Symptoms: No documented fever, positive chills Narrative: Patient is a 63-year-old woman with multiple medical problems who presents with nonproductive cough, loss of voice, nasal congestion, wheezing, dyspnea and dyspnea on exertion. She denies history of PE or DVT. She does have history of heart failure. She denies increased orthopnea or PND. She denies chest pain of any type. She denies GI or symptoms. Prior similar symptoms: Yes Recent Illness/Hospitalization: No - Past Medical History (1) Atrial fibrillation with RVR Status: Acute (2) COPD exacerbation Status: Acute (3) Syncope Status: Acute (4) Anemia Status: Chronic Comment: Normocytic (5) Anxiety Status: Chronic (6) Essential hypertension Status: Chronic (7) Hyperlipemia Status: Chronic (8) Morbid obesity with BMI of 40.0-44.9, adult Status: Chronic (9) ABDULLAHI (obstructive sleep apnea) Status: Chronic (10) Type 2 diabetes mellitus Status: Chronic Comment: uncontrolled Past Medical History - Allergies and Home Meds Allergies/Adverse Reactions: Allergies venom-honey bee [bee venom (honey bee)] Allergy (Verified 07/24/18 19:05) Swelling levofloxacin [From Levaquin] Adverse Reaction (Verified 07/24/18 19:05) Nausea oxycodone HCl [From Percocet] Adverse Reaction (Verified 07/24/18 19:05) Nausea Penicillins Adverse Reaction (Verified 07/24/18 19:05) Nausea/Vom/Diarrhea Primary Care Physician: Camden Burger [Primary Care Provider] - Prior records reviewed: Yes Surgical History: cholecystectomy, hysterectomy, tonsillectomy, - - Lumbar surgery. Lives: Alone Smoking Status: Current every day smoker Alcohol: None Drugs: None - Family History Maternal Family History: Family History (Last Reviewed 09/16/18 @ 13:43 by Jennifer Boogie) Sister Arthritis Diabetes Father Cancer Aunt Diabetes Family History: Reports: - - She reports that she is unaware of what her mother's health history was like Paternal Family History: Family History (Last Reviewed 09/16/18 @ 13:43 by Jennifer Boogie) Sister Arthritis Diabetes Father Cancer Aunt Diabetes Family History: Reports: Cancer, - - father with throat cancer. Sibling Family History: Family History (Last Reviewed 09/16/18 @ 13:43 by Jennifer Boogie) Sister Arthritis Diabetes Father Cancer Aunt Diabetes Family History: Reports: Asthma, COPD, Hypertension Review of Systems General: Reports: Chills, Malaise. Denies: Fever, Subjective, Sweats Eyes: Denies: Visual changes - bilaterally, Blurred Vision - bilaterally ENT: Reports: Rhinorrhea. Denies: Bilateral ear pain, Sore throat Cardiovascular: Denies: Chest pain, Palpitations, Heart racing Respiratory: Reports: Dyspnea, Cough, Dyspnea on exertion, Orthopnea - Table orthopnea. Denies: Sputum, Paroxysmal nocturnal dyspnea Gastrointestinal: Denies: Abdominal pain, Nausea, Vomiting, Diarrhea, Melena, Hematochezia Genitourinary: Denies: Dysuria, Hematuria, Frequency Musculoskeletal: Denies: Myalgias, Arthralgias, Back pain, Extremity Pain Skin: Denies: Rash, Wounds Neurological: Reports: Weakness. Denies: Headache, Parasthesia, Numbness Psych: Reports: Depression Hematologic: Denies: Easy bruising, Easy bleeding Allergy: Denies: Uticaria, Swelling of the mouth Physical Exam Vital Signs/Narrative: Vital Signs Temp Pulse Resp BP Pulse Ox 10/25/18 13:52 81 16 10/25/18 12:55 98.7 F 67 16 124/46 H 95 Inital Vital Signs reviewed: Yes General: Well nourished, Well developed, No Acute Distress Head: Normocephalic Eyes: Perrl, EOMI. Negative for: Pale conjunctiva, Scleral icterus ENT: Moist mucous membranes, TM's clear, Nasal congestion Neck: Supple, Nontender, No lymphadenopathy, No JVD Cardiovascular: Regular rate, Regular rhythm, No murmurs Respiratory: No distress, Chest nontender, Wheezing, Decreased Air Movement. Negative for: CTA bilaterally Abdomen: Soft, Nontender, Nondistended, Normal bowel sounds Back: Nontender, Normal Inspection Extremities: Nontender, No edema. Negative for: Calf Tenderness Skin: Normal color, No rash, No Trauma. Negative for: Cyanosis, Diaphoresis, Jaundice Neurological: Alert, Oriented x3, Cranial nerves II-XII grossly intact, Normal Strength, Normal Sensation Psychological: Normal affect, Normal Mood, Agitated Diagnostic/Tx/Re-eval Chest X-Ray - ED: 2 View, Read by ED Physician, Unchanged, Normal, Heart, Mediastinum, Bony Structures, No Acute Disease, Chronic Changes 10/25/18 14:10 Chest PA and Lateral [RAD] Stat Laboratory Results 10/25/18 10/25/18 10/25/18 13:45 13:45 13:45 WBC 8.6 RBC 4.86 Hgb 13.9 Hct 44.0 MCV 90.5 MCH 28.6 MCHC 31.6 L RDW Std Deviation 47.9 H RDW Coeff of Christel 14.5 Plt Count 244 MPV 10.3 Immature Gran % (Auto) 0.500 Neut % (Auto) 62.5 Lymph % (Auto) 28.0 [place] % (Auto) 6.3 Eos % (Auto) 2.1 Baso % (Auto) 0.6 Absolute Neuts (auto) 5.4 Absolute Lymphs (auto) 2.41 Nucleated RBC % 0 Sodium 138 Potassium 4.1 Chloride 101 Carbon Dioxide 35.0 H Anion Gap 2 L BUN 24 H Creatinine 0.97 Estim Creat Clear Calc 42.64 Est GFR (MDRD) Af Amer 74 Est GFR (MDRD) Non-Af 61 BUN/Creatinine Ratio 24.7 H Glucose 176 H Calcium 8.8 Troponin I < 0.015 B-Natriuretic Peptide 55.8 - Rhythm Strip Rhythm Strip: Sinus Rhythm Rate: 72 - Medical Decision Making Patient with productive cough and loss of voice. Suspect viral laryngitis. Because she has history of COPD and multiple other medical problems chest x-ray and blood work was obtained to assess for pneumonia, pneumothorax. Also to assess for anemia, renal function electrolytes. Patient was informed that her work-up is unremarkable. That this represents a viral infection. She still has wheezing after treatment however she is moving sniffily more air. Will place on prednisone. Patient understands this probably will cause her blood sugars to be elevated. She was informed since this is a viral infection with onset only 2 days ago antibiotics are not indicated. ED Disposition - Plan for ED Patient: Disposition: Home or Assisted Living Diagnosis: Acute exacerbation of chronic obstructive pulmonary disease (COPD), Acute bronchospasm Instructions: Copd Flare Prescriptions: Prednisone [Deltasone] 40 mg PO DAILY #10 tab Prescription Printed Referrals: Camden Burger [Primary Care Provider] - 3-5 Days Additional Instructions: You may use your rescue inhaler every 1-2 hours if needed.
[2018-10-25 15:00] VITALS: BP 107/69; PULSE 68; RESP 16; O2SAT 99
[2018-10-25] MEDS: predniSONE 20 MG Tablet 60 MG PO (15:21)
--- NOTE | 2018-10-25 15:27 | ED.RN ---
REPORT CALLED TO AARON RIOS WITH NO QUESTIONS. PT ATE ALL OF MEAL AND PREDNISONE PO STARTED. NO NEEDS AT THIS TIME.
== END 2018-10-25 17:00 | disposition home or self-care (01) ==
PROVIDERS: Emergency Provider Emergency Medicine; Family Provider Family Medicine; PCP Family Medicine
DX: I11.0 Hypertensive heart disease with heart failure (principal); J44.1 Chronic obstructive pulmonary disease with (acute) exacerbation; J98.01 Acute bronchospasm; I48.91 Unspecified atrial fibrillation; D64.9 Anemia, unspecified; E78.5 Hyperlipidemia, unspecified; E11.9 Type 2 diabetes mellitus without complications; F41.9 Anxiety disorder, unspecified; G47.33 Obstructive sleep apnea (adult) (pediatric); F17.200 Nicotine dependence, unspecified, uncomplicated; E66.01 Morbid (severe) obesity due to excess calories; Z68.41 Body mass index [BMI] 40.0-44.9, adult; Z79.4 Long term (current) use of insulin; Z79.899 Other long term (current) drug therapy
CPT/HCPCS: 71046; 80048; 83880; 84484; 85025; 93005; 94640; 99285

== ENCOUNTER 2019-04-20 19:50 | Emergency (ER) | payer MEDICAID, SELFPAY ==
[2019-04-20] VITALS (8 sets, daily range): BP systolic 106–117; BP diastolic 72–87; PULSE 94–114; RESP 18–24; TEMP 36.8; O2SAT 92–100; BMI 43.0
[2019-04-20] MEDS: Ipratropium/Albuterol Sulfate 3 ML AMPUL.NEB INHALATION (20:13)
--- NOTE | 2019-04-20 21:29 | ED.VISSUMM ---
- ER Visit Summary Date of Service: 04/20/19 Chief Complaint: I took 4 nitro History of Present Illness: The patient is a [address] Camden Rolon. She initially reports that she was mad at the staff at [facility] because they would not let her smoke. I asked her why they would not let her and she reports because I did not have any cigarettes. States that the she took 4 nitro because I wanted to. She does admit to being depressed. She denies any suicidal ideation. Review of systems is negative. Physical Examination: Vitals: Stable. Afebrile. General: Well-nourished and well-developed. Head: Normocephalic atraumatic. Neck: Supple, no lymphadenopathy. No JVD. Nontender. Cardiovascular: Regular rate and rhythm. No murmurs. Respiratory: No respiratory distress. Mild wheezing bilaterally with good air movement. Abdominal: Soft, nontender, nondistended, normal bowel sounds. No guarding, rebound, or peritoneal signs. Back: Nontender. Extremities: Nontender, no edema. Skin: Normal color, no rash. Neurologic: Alert and oriented ?3. Cranial nerves II through XII are intact. Normal strength and sensation. Psych: Normal affect. Emergency Department Course and Treatment: Patient was given albuterol and Atrovent aerosol. She had a nicotine patch placed. Patient reports that her sister was supposed to bring her cigarettes. We actually contacted her sister who states that she is on a fixed income and does not have the money to bring her cigarettes. It may be she will bring them tomorrow. Treatment Plan: I discussed this with the patient. I also discussed her that this is very manipulative and that I do not think that she needs to be hospitalized for not having cigarettes. She will be [facility] back to the [facility]. She will have a nicotine patch in place. Disposition: Discharged in stable condition. Impression: 1. Depression. This note was generated with [employer] dictation software. It may contain incorrect words, spelling, and punctuation that were not noted in review of the chart prior to signing ED Disposition - Plan for ED Patient: Disposition: Correction Facility Instructions: Why Do You Smoke? Referrals: Camden Burger [Primary Care Provider] - As Needed
--- NOTE | 2019-04-20 21:51 | ED.RN ---
PT IS DISCHARGED AT THIS TIME. PT STATES THAT SHE HAS NO ONE THAT CAN COME PICK HER UP AND HAS NO MONEY FOR A TAXI
--- NOTE | 2019-04-20 21:56 | ED.RN ---
Spoke with ER Director and Nursing Chemicals Distiller who both agreed for transportation voucher.
== END 2019-04-21 01:04 | disposition skilled nursing facility (03) ==
PROVIDERS: Emergency Provider Emergency Medicine; PCP Family Medicine
DX: F32.9 Major depressive disorder, single episode, unspecified (principal); I25.10 Atherosclerotic heart disease of native coronary artery without angina pectoris; I50.9 Heart failure, unspecified; I48.91 Unspecified atrial fibrillation; E11.9 Type 2 diabetes mellitus without complications; J44.9 Chronic obstructive pulmonary disease, unspecified; Z79.4 Long term (current) use of insulin; Z79.01 Long term (current) use of anticoagulants; Z72.0 Tobacco use
CPT/HCPCS: 94640; 99285

== ENCOUNTER 2020-03-28 07:54 | Emergency (ER) | payer MEDICAID, SELFPAY ==
[2019-04-20 19:52] VITALS: BMI 43.0
[2020-03-28 07:55] VITALS: BP 115/83; PULSE 92; RESP 18; TEMP 35.5; O2SAT 98; BMI 42.7
--- NOTE | 2020-03-28 08:07 | RAD_ITS ---
STUDY: X-RAY CHEST REASON FOR EXAM: Female, 64 years old. SOB. ON RA AT [facility]. HX CHF TECHNIQUE: Single AP portable view of the chest. COMPARISON: Comparison is made with prior study dated 10/25/2012. FINDINGS: EKG electrodes are seen. Hyperinflation. The lungs are clear. There is no demonstrated pleural abnormality. Normal size heart. Normal mediastinum and sangeeta. Normal visualized pulmonary arteries. There is atherosclerotic calcification of the aortic arch with tortuosity. There are degenerative changes of the visualized thoracic spine. Normal visualized ribs, clavicles, and shoulders. There is no demonstrated abnormality of the visualized soft tissue structures of the upper abdomen. RAD/Chest 1 View (Portable) IMPRESSION: Hyperinflation. The lungs are clear. Electronically Signed: Jose Lemos MD at 9:01 EST , Service support ,
--- NOTE | 2020-03-28 08:08 | EKG12_ITS ---
Test Reason : SOB Blood Pressure : / mmHG Vent. Rate : 088 BPM Atrial Rate : 394 BPM P-R Int : 000 ms QRS Dur : 082 ms QT Int : 374 ms P-R-T Axes : 000 062 -11 degrees QTc Int : 452 ms Atrial fibrillation Septal infarct , age undetermined Abnormal ECG Confirmed by MARLENE DELGADO, DARELL ([id number]), digital editor SUZANNE WRIGHT ([id number]) on 03/30/2020 8:40:33 AM Referred By: Confirmed By:BG ROSARIO MD
--- NOTE | 2020-03-28 08:09 | ED.DCSUM_ITS ---
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 Patient has a history of COPD, permanent A. fib, cardiomyopathy of unknown type, hypertension, hyperlipidemia, and diabetes. Patient states that she has had a cough that is now being productive of yellow sputum. She feels short of breath. long term stated that she had swollen legs and a history of CHF. No fevers. Patient has previously had Covid last fall. The last echocardiogram that I can find at this hospital was in 2018 which showed an ejection fraction of 65%. - Past Medical History (1) Anxiety Status: Chronic (2) COPD (chronic obstructive pulmonary disease) Status: Chronic (3) Chronic hypoxemic respiratory failure Status: Chronic Comment: non-compliant with oxygen (4) Chronic pain Status: Chronic (5) Essential hypertension Status: Chronic (6) GERD (gastroesophageal reflux disease) Status: Chronic (7) Hyperlipemia Status: Chronic (8) Hypersomnia Status: Chronic (9) Insomnia Status: Chronic (10) Morbid obesity with BMI of 40.0-44.9, adult Status: Chronic (11) Type 2 diabetes mellitus Status: Chronic Comment: uncontrolled Past Medical History - Allergies and Home Meds Allergies/Adverse Reactions: Allergies venom-honey bee [bee venom (honey bee)] Allergy (Verified 03/28/20 08:07) Swelling levofloxacin [From Levaquin] Adverse Reaction (Verified 03/28/20 08:07) Nausea oxycodone HCl [From Percocet] Adverse Reaction (Verified 03/28/20 08:07) Nausea Penicillins Adverse Reaction (Verified 03/28/20 08:07) Nausea/Vom/Diarrhea Primary Care Physician: Camden Burger [[facility]] - Surgical History: cholecystectomy, hysterectomy, tonsillectomy, - - Lumbar surgery. Lives: [facility] Smoking Status: Current every day smoker Alcohol: None Drugs: None - Family History Maternal Family History: Family History (Last Reviewed 09/16/18 @ 13:43 by Jennifre Boogie) Sister Arthritis Diabetes Father Cancer Aunt Diabetes Family History: Reports: - - She reports that she is unaware of what her mother's health history was like Paternal Family History: Family History (Last Reviewed 09/16/18 @ 13:43 by Jennifer Boogie) Sister Arthritis Diabetes Father Cancer Aunt Diabetes Family History: Reports: Cancer, - - father with throat cancer. Sibling Family History: Family History (Last Reviewed 09/16/18 @ 13:43 by Jennifer Boogie) Sister Arthritis Diabetes Father Cancer Aunt Diabetes Family History: Reports: Asthma, COPD, Hypertension Review of Systems General: Denies: Chills, Fever, Sweats Eyes: Denies: Visual changes - bilaterally, Diplopia ENT: Denies: Rhinorrhea, Sore throat Cardiovascular: Denies: Chest pain, Palpitations Respiratory: Reports: Dyspnea, Cough, Sputum, Dyspnea on exertion Gastrointestinal: Denies: Abdominal pain, Nausea, Vomiting, Diarrhea, Melena, Hematochezia Genitourinary: Denies: Dysuria, Hematuria, Frequency Musculoskeletal: Reports: Swelling. Denies: Back pain, Extremity Pain Skin: Denies: Rash, Wounds Neurological: Denies: Headache, Weakness, Numbness Physical Exam Vital Signs/Narrative: Vital Signs Temp Pulse Resp BP Pulse Ox 03/28/20 07:55 95.9 F L 92 18 115/83 H 98 Inital Vital Signs reviewed: Yes General: Well nourished, Well developed, Obese, No Acute Distress Head: Normocephalic, Atraumatic Eyes: Perrl, EOMI ENT: Moist mucous membranes, No rhinorrhea Neck: Supple, Nontender Cardiovascular: No murmurs, Irregular - Irregularly irregular rhythm with rates in the 90s Respiratory: No distress, Chest nontender, Wheezing - Expiratory wheezing bilaterally Abdomen: Soft, Nontender, Nondistended, Normal bowel sounds Back: Nontender, Normal Inspection Extremities: Nontender, Edema - Mild nonpitting edema bilaterally. Skin: Normal color, No rash Neurological: Alert, Oriented x3, Cranial nerves II-XII grossly intact, Normal Strength, Normal Sensation Psychological: Normal affect, Normal Mood Diagnostic/Tx/Re-eval Clinical Impression(s) from Imaging Studies Chest X-Ray 03/28/20 08:07 IMPRESSION: Hyperinflation. The lungs are clear. Electronically Signed: Jose Lemos MD at 9:01 EST , Service support , Laboratory Last Values WBC 7.2 K/mm3 (4.4-11.0) 03/28/20 08:15 Corrected WBC Cancelled 03/28/20 07:55 RBC 4.05 M/mm3 (4.2-5.4) L 03/28/20 08:15 Hgb 11.7 g/dL (12.0-15.0) L 03/28/20 08:15 Hct 37.3 % (37-47) 03/28/20 08:15 MCV 92.1 fL (81-99) 03/28/20 08:15 MCH 28.9 pg (27.0-32.0) 03/28/20 08:15 MCHC 31.4 g/dL (32-36) L 03/28/20 08:15 RDW Std Deviation 48.2 fl (35.1-43.9) H 03/28/20 08:15 RDW Coeff of Christel 14.2 % (11.6-14.6) 03/28/20 08:15 Plt Count 217 K/mm3 (150-450) 03/28/20 08:15 MPV 10.6 fl (6.2-12.0) 03/28/20 08:15 Immature Gran % (Auto) 0.400 % (0.0-0.9) 03/28/20 08:15 Neut % (Auto) 49.6 % (47-70) 03/28/20 08:15 Lymph % (Auto) 32.4 % (19-41) 03/28/20 08:15 [place] % (Auto) 10.8 % (0-10) H 03/28/20 08:15 Eos % (Auto) 6.2 % (0-5) H 03/28/20 08:15 Baso % (Auto) 0.6 % (0-1) 03/28/20 08:15 Absolute Neuts (auto) 3.6 X10^3/uL (2.0-7.7) 03/28/20 08:15 Absolute Lymphs (auto) 2.34 X10^3/uL (0.83-4.51) 03/28/20 08:15 Total Counted Cancelled 03/28/20 07:55 Neutrophils % (Manual) Cancelled 03/28/20 07:55 Band Neutrophils % Cancelled 03/28/20 07:55 Lymphocytes % (Manual) Cancelled 03/28/20 07:55 Monocytes % (Manual) Cancelled 03/28/20 07:55 Eosinophils % (Manual) Cancelled 03/28/20 07:55 Basophils % (Manual) Cancelled 03/28/20 07:55 Metamyelocytes % Cancelled 03/28/20 07:55 Myelocytes % Cancelled 03/28/20 07:55 Promyelocytes % Cancelled 03/28/20 07:55 Blast Cells % Cancelled 03/28/20 07:55 Plasma Cell % (Manual) Cancelled 03/28/20 07:55 Other Cells % Cancelled 03/28/20 07:55 Nucleated RBC % 0 % (0-5) 03/28/20 08:15 Nucleated RBCs/100 WBC Cancelled 03/28/20 07:55 Differential Comment Cancelled 03/28/20 07:55 Diff Path Review Cancelled 03/28/20 07:55 Hypersegmented Neuts Cancelled 03/28/20 07:55 Atypical Lymphocytes Cancelled 03/28/20 07:55 Reactive Lymphocytes Cancelled 03/28/20 07:55 Smudge Cells Cancelled 03/28/20 07:55 Toxic Granulation Cancelled 03/28/20 07:55 Toxic Vacuolation Cancelled 03/28/20 07:55 Dohle Bodies Cancelled 03/28/20 07:55 Wendy Rods Cancelled 03/28/20 07:55 Platelet Estimate Cancelled 03/28/20 07:55 Plt Morphology Comment Cancelled 03/28/20 07:55 RBC Morphology Cancelled 03/28/20 07:55 RBC Morphology Cancelled 03/28/20 07:55 Polychromasia Cancelled 03/28/20 07:55 Hypochromasia Cancelled 03/28/20 07:55 Poikilocytosis Cancelled 03/28/20 07:55 Basophilic Stippling Cancelled 03/28/20 07:55 Anisocytosis Cancelled 03/28/20 07:55 Microcytosis Cancelled 03/28/20 07:55 Macrocytosis Cancelled 03/28/20 07:55 Spherocytes Cancelled 03/28/20 07:55 Sickle Cells Cancelled 03/28/20 07:55 Target Cells Cancelled 03/28/20 07:55 Tear Drop Cells Cancelled 03/28/20 07:55 Ovalocytes Cancelled 03/28/20 07:55 Stomatocytes Cancelled 03/28/20 07:55 [place] Bodies Cancelled 03/28/20 07:55 Sang Cells Cancelled 03/28/20 07:55 Bite Cells Cancelled 03/28/20 07:55 Crenated Cell Cancelled 03/28/20 07:55 Acanthocytes (Spur) Cancelled 03/28/20 07:55 Rouleaux Cancelled 03/28/20 07:55 Schistocytes Cancelled 03/28/20 07:55 Sodium 138 mmol/L (136-145) 03/28/20 07:55 Potassium 4.5 mmol/L (3.5-5.1) 03/28/20 07:55 Chloride 105 mmol/L (98-107) 03/28/20 07:55 Carbon Dioxide 32.0 mmol/L (21.0-32.0) 03/28/20 07:55 Anion Gap 1 (5-15) L 03/28/20 07:55 BUN 15 mg/dL (7-18) 03/28/20 07:55 Creatinine 0.64 mg/dL (0.55-1.02) 03/28/20 07:55 Estim Creat Clear Calc 67.01 ml/min 03/28/20 07:55 Est GFR (MDRD) Af Amer 120 mL/min (>60) 03/28/20 07:55 Est GFR (MDRD) Non-Af 99 mL/min (>60) 03/28/20 07:55 BUN/Creatinine Ratio 23.4 RATIO (10-20) H 03/28/20 07:55 Glucose 119 mg/dL (74-106) H 03/28/20 07:55 Calcium 8.2 mg/dL (8.5-10.1) L 03/28/20 07:55 Total Bilirubin 0.40 mg/dL (0.20-1.00) 03/28/20 07:55 AST 18 U/L (15-37) 03/28/20 07:55 ALT 13 U/L (13-56) 03/28/20 07:55 Alkaline Phosphatase 134 U/L (45-117) H 03/28/20 07:55 Troponin I < 0.015 ng/mL (<0.045) 03/28/20 07:55 B-Natriuretic Peptide 89.3 pg/mL (0-100) 03/28/20 07:55 Total Protein 6.2 g/dL (6.4-8.2) L 03/28/20 07:55 Albumin 2.9 g/dL (3.2-5.0) L 03/28/20 07:55 Globulin 3.3 g/dL (2.2-4.2) 03/28/20 07:55 Albumin/Globulin Ratio 0.9 RATIO (0.9-2.4) 03/28/20 07:55 - EKG Initial EKG Interpretation: Atrial Fibrillation - EKG demonstrates atrial fibrillation at a rate of 88 with no concerning features of ACS - Medical Decision Making My interpretation of the portable chest x-ray is no acute disease Review of the labs and her chest x-ray suggest that this is a COPD exacerbation. She received Solu-Medrol and aerosols. She is not hypoxic on her supplemental oxygen. I believe she is a candidate for outpatient therapy. I will write her to have prednisone and azithromycin. Aerosols every 4 hours as needed. Follow- up with primary care return if worsening or concerns. ED Disposition - Plan for ED Patient: Disposition: Senior Living Facility Diagnosis: COPD exacerbation Instructions: ED COPD Flare Prescriptions: Prednisone [Deltasone] 60 mg PO DAILY #15 tab Prescription Printed Ipratropium/Albuterol Sulfate [Duoneb] 3 ml INHALATION Q6H.RT PRN #20 ampul.neb PRN Reason: Wheezing Prescription Printed Azithromycin [Zithromax Z-Fausto] 250 mg PO UD #1 box Prescription Printed Referrals: Camden Burger [[facility]] - 1 Week
[2020-03-28 08:21] LABS: Absolute Lymphocyte Count 2.34 X10^3/uL (0.83-4.51); Absolute Neutrophil Count 3.6 X10^3/uL (2.0-7.7); Basophil# 0.04 X10^3/uL; Basophil% 0.6 % (0-1); Eosinophil# 0.45 X10^3/uL; Eosinophils% 6.2 % (0-5); Hematocrit 37.3 % (37-47); Hemoglobin 11.7 g/dL (12.0-15.0); Lymphocyte # 2.34 X10^3/ul (4.0); Lymphocyte % 32.4 % (19-41); Mean Corp Hgb Conc 31.4 g/dL (32-36); Mean Corpuscular Hgb 28.9 pg (27.0-32.0); Mean Corpuscular Volume 92.1 fL (81-99); Mean Platelet Vol. 10.6 fl (6.2-12.0); Monocyte# 0.78 X10^3/uL; Monocyte% 10.8 % (0-10); NRBC Flagged by Analyzer 0 % (0-5); Neutrophil # 3.59 X10^3/uL (2.7-7.7); Neutrophil % 49.6 % (47-70); Platelet Count 217 K/mm3 (150-450); RBC Distribution Width CV 14.2 % (11.6-14.6); RBC Distribution Width SD 48.2 fl (35.1-43.9); Red Blood Count 4.05 M/mm3 (4.2-5.4); White Blood Count 7.2 K/mm3 (4.4-11.0)
[2020-03-28] MEDS: Ipratropium/Albuterol Sulfate 3 ML AMPUL.NEB INHALATION (08:24)
[2020-03-28] MEDS: Albuterol 2.5 MG/3 ML VIAL.NEB. INHALATION (08:24)
[2020-03-28 08:25] VITALS: PULSE 102; RESP 18
[2020-03-28] MEDS: MethylPREDNISolone 125 MG/2 ML Vial IV (08:25)
[2020-03-28 08:34] LABS: BNP,B-Type NATRIURETIC PEPTIDE 89.3 pg/mL (0-100)
[2020-03-28 08:36] LABS: ALB/GLOB Ratio 0.9 RATIO (0.9-2.4); AST(SGOT) 18 U/L (15-37); Alanine Aminotransfer ALT/SGPT 13 U/L (13-56); Albumin, Serum 2.9 g/dL (3.2-5.0); Alkaline Phosphatase 134 U/L (45-117); Anion Gap 1 (5-15); BUN 15 mg/dL (7-18); BUN/Creat Ratio 23.4 RATIO (10-20); Calcium,Total 8.2 mg/dL (8.5-10.1); Chloride 105 mmol/L (98-107); Creatinine, Serum 0.64 mg/dL (0.55-1.02); EST Glomerular Filtration Rate 99 mL/min (>60); Est Glom Filt Rate - Afr Amer 120 mL/min (>60); Estimated Creatinine Clearance 67.01 ml/min; Globulin 3.3 g/dL (2.2-4.2); Glucose 119 mg/dL (74-106); Potassium 4.5 mmol/L (3.5-5.1); Protein, Total 6.2 g/dL (6.4-8.2); Sodium Level 138 mmol/L (136-145)
[2020-03-28 08:51] VITALS: BP 105/73; PULSE 93; RESP 18; O2SAT 97
[2020-03-28 09:00] VITALS: O2SAT 97
[2020-03-28 09:25] VITALS: BP 119/66; PULSE 89; RESP 18; O2SAT 96
--- NOTE | 2020-03-28 10:43 | ED.RN ---
Report called to [facility].
== END 2020-03-28 10:53 | disposition skilled nursing facility (03) ==
PROVIDERS: Emergency Provider Emergency Medicine; PCP Internal Medicine
DX: J44.1 Chronic obstructive pulmonary disease with (acute) exacerbation (principal); J96.11 Chronic respiratory failure with hypoxia; I11.0 Hypertensive heart disease with heart failure; I50.9 Heart failure, unspecified; I48.21 Permanent atrial fibrillation; I42.9 Cardiomyopathy, unspecified; E11.9 Type 2 diabetes mellitus without complications; E78.5 Hyperlipidemia, unspecified; K21.9 Gastro-esophageal reflux disease without esophagitis; F17.200 Nicotine dependence, unspecified, uncomplicated; E66.01 Morbid (severe) obesity due to excess calories; Z68.41 Body mass index [BMI] 40.0-44.9, adult; Z79.82 Long term (current) use of aspirin; Z79.899 Other long term (current) drug therapy
CPT/HCPCS: 71045; 80053; 83880; 84484; 85025; 93005; 94640; 99285; A4216

== ENCOUNTER → 2020-11-23 10:02 | Outpatient (CLI) | payer MEDICAID, SELFPAY ==
--- NOTE | 2020-11-23 10:04 | ECHOCS_ITS ---
Reason For Study: CHF Procedure This was a 2D Doppler, Color Flow transthoracic echocardiogram. The study was technically limited. The study was technically difficult. Exam performed in department. Left Ventricle Normal LV size. The estimated ejection fraction is 60 %. Unable to assess diastolic dysfunction. No regional wall motion abnormalities noted. Right Ventricle Normal RV size. Normal systolic function. Atria Normal left atrium. Normal right atrium. No doppler evidence for ASD. Mitral Valve There is moderate to severe mitral annular calcification. There is no mitral valve stenosis. Trivial mitral valve insufficiency. Tricuspid Valve There is no tricuspid stenosis. No tricuspid valve insufficiency. Unable to estimate RV systolic pressure due to inadequate jet, pulmonary artery pressure probably normal. Aortic Valve There is no aortic stenosis. No aortic valve insufficiency. Pulmonic Valve There is no pulmonic valvular stenosis. No pulmonic valve insufficiency. Great Vessels Normal aortic root. Pericardium/Pleural No pericardial effusion. Medication 22 gauge I.V. with prn adaptor inserted into right arm. Diluted definity 4ml given slow IV push to enhance endocardial definition. MMode/2D Measurements & Calculations RVDd: 3.7 cm Ao root diam: 2.9 cm LA dimension(2D): 3.9 cm Doppler Measurements & Calculations MV E max jami: 105.3 cm/sec Ao V2 max: 133.1 cm/sec LV V1 max: 90.9 cm/sec Ao max P.2 mmHg LV V1 max P.3 mmHg PA V2 max: 101.6 cm/sec ECHO/Echo Complete W/ Contrast Interpretation Summary The estimated ejection fraction is 60 %. Unable to assess diastolic dysfunction. Trivial mitral valve insufficiency. Ordering Physician: Matthias Chong Referring Physician: Eliseo Hernandes Performed By: Pat Boland RDCS
== END ==
PROVIDERS: PCP Internal Medicine; Visit Provider Internal Medicine Critical Care Medicine
DX: I50.9 Heart failure, unspecified (principal)
CPT/HCPCS: 93306; Q9957; A4216; C8929